=== PATIENT | female | born 1960 | race American Indian/Alaskan Native ===

== ENCOUNTER 2019-01-28 20:10 | Inpatient (IN) | payer MEDICARE ==
[2019-01-28] MEDS: SUBLIMAZE ONE ×4 (10:08→23:18)
[2019-01-28] MEDS: XYLOCAINE 2% INFILTRATI ONE ×2 (10:10→23:13)
[2019-01-28] MEDS ORDERED: NORMODYNE IV ONE (20:36)
[2019-01-28 20:39] LABS: Basophils # (Auto) 0.1 K/mm3 (0.0-0.1); Basophils % (Auto) 0.6 % (0.0-1.8); Hematocrit 41.7 % (30.3-42.9); Hemoglobin 13.7 gm/dl (10.1-14.3); Lymphocytes % (Auto) 19.3 % (13.4-35.0); Mean Corpuscular HGB Conc 33 % (30-34); Mean Corpuscular Volume 89 fl (79-97); Monocytes # (Auto) 0.5 K/mm3 (0.0-0.8); Platelet Count 402 K/mm3 (140-440); Red Cell Distribution Width 15.7 % (13.2-15.2)
[2019-01-28 20:49] LABS: INR 0.95 (0.87-1.13)
[2019-01-28 20:50] LABS: Partial Thromboplastin Time 51.9 Sec. (24.2-36.6)
[2019-01-28 20:51] LABS: BUN/Creatinine Ratio 23; Blood Urea Nitrogen 25 mg/dL (7-17); Calcium 9.7 mg/dL (8.4-10.2); Hemolysis Index 2
--- NOTE | 2019-01-28 20:52 | Emergency Department Report ---
ED Extremity Problem HPI - General Chief complaint: Medical Clearance Stated complaint: THROMBOLYSIS PROCEDURE Time Seen by Provider: 01/28/19 20:20 Source: family, EMS Mode of arrival: Stretcher Limitations: Altered Mental Status - History of Present Illness Initial comments: 58-year-old female with history of peripheral vascular disease presents to the ED for thrombolysis of right lower extremity. Patient transported from [facility]. The patient has an occlusion of the right lower extremity, vascular surgeon was unable to open and patient will require thrombolysis with TPA. Patient transported to our ED so that she can go to the [facility]. The patient received fentanyl, propofol, versed for the procedure prior to arrival, so she is slightly lethargic. Patient has also received 10,000 units of heparin. Vascular: Dr Dru BURTON Complaint: extremity pain, other (discolored right 2nd toe) Location: right, lower extremity, toe Severity scale (0 -10): 0 Improves with: nothing Worsens with: weight bearing, walking Associated Symptoms: denies other symptoms - Related Data Home Medications Medication Instructions Recorded Confirmed Last Taken HumuLIN 70-30 Vial 01/28/19 Unknown Valsartan [Diovan] 01/28/19 Unknown hydroCHLOROthiazide [HCTZ] 25 mg PO QDAY 01/28/19 01/28/19 Unknown Allergies Allergy/AdvReac Type Severity Reaction Status Date / Time No Known Allergies Allergy Verified 01/28/19 21:26 ED Review of Systems ROS: Stated complaint: THROMBOLYSIS PROCEDURE Other details as noted in HPI Comment: All other systems reviewed and negative Musculoskeletal: other (right 2nd toe discoloration) ED Past Medical Hx - Past Medical History Previous Medical History?: Yes Hx Hypertension: Yes Hx Diabetes: Yes - Surgical History Past Surgical History?: Yes Additional Surgical History: Vascular surgery - Medications Home Medications: Home Medications Medication Instructions Recorded Confirmed Last Taken Type HumuLIN 70-30 Vial 01/28/19 Unknown History Valsartan [Diovan] 01/28/19 Unknown History hydroCHLOROthiazide [HCTZ] 25 mg PO QDAY 01/28/19 01/28/19 Unknown History ED Physical Exam - General Limitations: Altered Mental Status General appearance: in no apparent distress, lethargic - Head Head exam: Present: atraumatic, normocephalic - Eye Eye exam: Present: normal appearance - ENT ENT exam: Present: mucous membranes moist - Neck Neck exam: Present: normal inspection - Respiratory Respiratory exam: Present: normal lung sounds bilaterally. Absent: respiratory distress - Cardiovascular Cardiovascular Exam: Present: normal rhythm, tachycardia - GI/Abdominal GI/Abdominal exam: Present: soft. Absent: distended - Extremities Exam Extremities exam: Present: other (no palpable DP pulse in right foot; dusky appearance of right 2nd toe; foot is cold compared to left). Absent: normal capillary refill - Neurological Exam Neurological exam: Present: alert - Psychiatric Psychiatric exam: Present: normal affect, normal mood - Skin Skin exam: Present: dry, intact ED Course Vital Signs 01/28/19 01/28/19 01/28/19 20:14 20:15 20:21 Temperature 97.5 F L Pulse Rate 100 H 101 H 101 H Respiratory 19 19 20 Rate Blood Pressure 219/88 Blood Pressure 219/88 [Right] O2 Sat by Pulse 100 100 100 Oximetry 01/28/19 01/28/19 01/28/19 20:31 20:39 20:41 Temperature Pulse Rate 100 H 97 H 84 Respiratory 14 24 Rate Blood Pressure 219/88 243/102 243/102 Blood Pressure [Right] O2 Sat by Pulse 100 100 Oximetry 01/28/19 01/28/19 01/28/19 20:51 20:56 21:01 Temperature 97.9 F Pulse Rate 87 89 90 Respiratory 17 21 39 H Rate Blood Pressure 243/102 135/63 222/84 Blood Pressure [Right] O2 Sat by Pulse 100 100 100 Oximetry 01/28/19 21:06 Temperature Pulse Rate Respiratory 19 Rate Blood Pressure Blood Pressure [Right] O2 Sat by Pulse 100 Oximetry ED Medical Decision Making - Lab Data Result diagrams: 01/28/19 20:29 01/28/19 20:29 - Medical Decision Making Spoke w/ Dr Gonsales. Will be coming in to perform pt's procedure. Spoke w/ Dr Cast, hospitalist, will admit. - Differential Diagnosis arterial occlusion Critical care attestation.: If time is entered above; I have spent that time in minutes in the direct care of this critically ill patient, excluding procedure time. ED Disposition Clinical Impression: Arterial occlusion, lower extremity Disposition: OP ADMIT IP TO THIS HOSP Is pt being admited?: Yes Condition: Serious Time of Disposition: 20:56
[2019-01-28] MEDS ORDERED: HEPARIN/NS 5000 UNIT/500ML(CATH LAB) 1,000 ML IR ONE (21:27)
[2019-01-28] MEDS ORDERED: HEPARIN 10,000 UNITS/10 ML ONE (21:27)
[2019-01-28] MEDS ORDERED: NACL 0.9% 1000 ML 1,000 ML ONE (21:28)
[2019-01-28] MEDS ORDERED: HEPARIN/ 0.45% NACL-25,000 UNIT/500 ML 25,000 UNIT/500 ML BAG ONE (21:28)
[2019-01-28] MEDS ORDERED: ZOFRAN IV PRN (21:44)
[2019-01-28] MEDS ORDERED: NACL 0.9% 1000 ML 1,000 ML IV SCH (22:00)
[2019-01-28] MEDS ORDERED: VERSED ONE (22:07)
[2019-01-28] MEDS ORDERED: CATHFLO ONE (22:25)
[2019-01-28] MEDS: APRESOLINE ONE ×2 (22:39→23:30)
[2019-01-28] MEDS: VERSED ONE ×2 (22:58→23:18)
[2019-01-28] MEDS ORDERED: NACL 0.9% 1000 ML 1,000 ML SHEATH SCH (23:00)
[2019-01-28] MEDS ORDERED: NACL 0.9% 1000 ML 1,000 ML EKOSCLUMEN SCH (23:00)
--- NOTE | 2019-01-28 23:40 | History and Physical Report ---
History of Present Illness Date of examination: 01/28/19 History of present illness: 58-year-old woman with history of hypertension, diabetes, peripheral vascular disease was sent from [facility] for thrombolysis of the right lower extremity. The patient states she had right leg pain for one week. She was taken to the clinical laboratory scientist where she equals to the anterior tibialis. She is still a bit sedated from the procedure, very difficult to obtain review of systems and rest of the history. He is noted to have a gangrene of the right second toe. Patient will be taken back to the clinical laboratory scientist tomorrow PAST MEDICAL HISTORY:hypertension, diabetes, peripheral vascular disease PAST SURGICAL HISTORY: Unknown SOCIAL HISTORY: Unknown FAMILY HISTORY: Unknown Medications and Allergies Allergies Allergy/AdvReac Type Severity Reaction Status Date / Time No Known Allergies Allergy Verified 01/28/19 21:26 Home Medications Medication Instructions Recorded Confirmed Last Taken Type HumuLIN 70-30 Vial 12 units SQ TID 01/28/19 02/03/19 Unknown History Aspirin [Low Dose Aspirin EC] 81 mg PO DAILY #30 tablet. 02/04/19 Unknown Rx Clopidogrel [Plavix] 75 mg PO QDAY #30 tablet 02/04/19 Unknown Rx HYDROcodone/APAP 5-325 [[place] 2 each PO Q6H PRN #14 tablet 02/04/19 Unknown Rx 5-325 mg TAB] Insulin Glargine [Lantus VIAL] 5 units SUB-Q QHS #30 units 02/04/19 Unknown Rx Valsartan [Diovan] 160 mg PO QDAY #30 tablet 02/04/19 Unknown Rx hydroCHLOROthiazide [HCTZ] 25 mg PO QDAY #30 tablet 02/04/19 Unknown Rx Active Meds: Active Medications Acetaminophen/Hydrocodone Bitart ([place] 5/325) 2 each PO Q6H PRN PRN Reason: Pain, Moderate (4-6) Sodium Chloride (Nacl 0.9% 1000 Ml) 1,000 mls @ 30 mls/hr IV DIRECT RAFAEL Alteplase, Recombinant 20 mg/ (Sodium Chloride) 500 mls @ 25 mls/hr EKOSDLUMEN DIRECT RAFAEL Heparin Sodium/Sodium Chloride (Heparin/ 0.45% Nacl-25,000 Unit/500 Ml) 25,000 unit in 500 mls @ 10 mls/hr SHEATH DIRECT RAFAEL; Protocol Sodium Chloride (Nacl 0.9% 1000 Ml) 1,000 mls @ 30 mls/hr SHEATH DIRECT RAFAEL Sodium Chloride (Nacl 0.9% 1000 Ml) 1,000 mls @ 35 mls/hr EKOSCLUMEN DIRECT RAFAEL Morphine Sulfate (Morphine) 4 mg IV Q4H PRN PRN Reason: Pain , Severe (7-10) Ondansetron HCl (Zofran) 4 mg IV Q8H PRN PRN Reason: Nausea And Vomiting Exam - Physical Exam Narrative exam: General Apperance: The patient lying in bed, breathing comfortable HEENT: Normocephalic, atraumatic. Pupils equally round and reactive to light, EOMI, no sclericterus or JVD or thyromegaly or nodule. , no carotid bruit, m ucous membranes moist, no exudate or erythema Heart: S1-S2, regular is rhythm Lungs: Clear to auscultation bilaterally, breathing comfortable Abdomen: Positive bowel sounds, soft, nontender, nondistended, no organomegaly Extremities: No edema cyanosis clubbing Skin: no rash, nodule, warm and dry Neuro: sedated - Constitutional Vitals: Temp Pulse Resp BP Pulse Ox 97.9 F 89 19 135/63 100 01/28/19 20:56 01/28/19 20:56 01/28/19 21:06 01/28/19 20:56 01/28/19 21:06 Results - Labs CBC & Chem 7: 02/04/19 05:38 02/04/19 05:38 Labs: Abnormal lab results 01/28/19 01/28/19 01/28/19 Range/Units 20:29 20:29 20:29 RDW 15.7 H (13.2-15.2) % Seg Neutrophils % 75.1 H (40.0-70.0) % Seg Neutrophils # 7.8 H (1.8-7.7) K/mm3 APTT 51.9 H (24.2-36.6) Sec. Fibrinogen (211-480) mg/dl Sodium 136 L (137-145) mmol/L Potassium 5.5 H (3.6-5.0) mmol/L Chloride 97.4 L (98-107) mmol/L BUN 25 H (7-17) mg/dL Glucose 238 H (65-100) mg/dL 01/28/19 Range/Units 21:59 RDW (13.2-15.2) % Seg Neutrophils % (40.0-70.0) % Seg Neutrophils # (1.8-7.7) K/mm3 APTT (24.2-36.6) Sec. Fibrinogen 542 H (211-480) mg/dl Sodium (137-145) mmol/L Potassium (3.6-5.0) mmol/L Chloride (98-107) mmol/L BUN (7-17) mg/dL Glucose (65-100) mg/dL Assessment and Plan Peripheral vascular disease, status post EKOS Gangrene of the toe Hyperkalemia Diabetes Hypertension Plan Admit to medicine Gave calcium, bicarbonate, insulin for hyperkalemia, follow potassium level Check fingersticks and initiate insulin sliding scale consult critical care, surgery Blood pressure control, restart outpatient medications Peripheral vascular disease per vascular DVT prophylaxis
[2019-01-29] MEDS: CATHFLO 20 MG in NACL 0.9% 500 ML 500 ML EKOSDLUMEN SCH ×2 (00:05→00:06)
[2019-01-29] MEDS: HEPARIN/ 0.45% NACL-25,000 UNIT/500 ML 25,000 UNIT/500 ML BAG SHEATH SCH ×2 (00:05→00:08)
[2019-01-29] MEDS ORDERED: MORPHINE IV PRN (00:12)
[2019-01-29] MEDS ORDERED: D50W (25GM) Syringe IV PRN ×2 (00:12→10:24)
[2019-01-29] MEDS ORDERED: TYLENOL PO PRN (00:12)
[2019-01-29] MEDS ORDERED: CALCIUM CHLORIDE 1,000 MG in NACL 0.9% 100 ML IV ONE (00:14)
[2019-01-29] MEDS ORDERED: D50W (25GM) Syringe IV ONE (00:15)
[2019-01-29] MEDS ORDERED: HumuLIN R SUB-Q ONE (00:16)
[2019-01-29] MEDS: MORPHINE IV PRN ×2 (00:17→04:18)
[2019-01-29] MEDS: NORCO 5/325 PO PRN (01:12)
[2019-01-29] MEDS ORDERED: SODIUM BICARBONATE IV ONE (01:30)
[2019-01-29] MEDS: SODIUM CHLORIDE FLUSH SYRINGE 10 ML IV PRN (01:51)
[2019-01-29] MEDS: APRESOLINE IV PRN ×2 (02:14→07:51)
[2019-01-29] MEDS ORDERED: LOPRESSOR PO ONE (03:30)
[2019-01-29 05:58] LABS: Basophils % (Auto) 0.2 % (0.0-1.8); Hemoglobin 13.2 gm/dl (10.1-14.3); Lymphocytes # (Auto) 0.9 K/mm3 (1.2-5.4); Lymphocytes % (Auto) 7.3 % (13.4-35.0); Mean Corpuscular HGB Conc 33 % (30-34); Mean Corpuscular Volume 90 fl (79-97); Monocytes # (Auto) 0.6 K/mm3 (0.0-0.8); Monocytes % (Auto) 5.1 % (0.0-7.3); Platelet Count 354 K/mm3 (140-440); Red Blood Count 4.45 M/mm3 (3.65-5.03); Red Cell Distribution Width 15.7 % (13.2-15.2)
[2019-01-29] MEDS ORDERED: CARDIZEM IV ONE (06:08)
[2019-01-29 06:09] LABS: Fibrinogen 294 mg/dl (211-480)
[2019-01-29] MEDS ORDERED: DILAUDID IV ONE (06:20)
[2019-01-29 06:21] LABS: BUN/Creatinine Ratio 23; Blood Urea Nitrogen 25 mg/dL (7-17); Hemolysis Index 9
--- NOTE | 2019-01-29 09:26 | Progress Note ---
Assessment and Plan 1. Right foot ischemia with cold foot and pain. 2. EKOS catheter running with tPA into the right lower extremity. 3. I will evaluate this afternoon with angiogram and will likely continue overnight if necessary. Subjective Date of service: 01/29/19 Principal diagnosis: Right lower extremity ischemia. Cold foot Interval history: Patient has a known history of severe PAD in the right lower extremity with gangrenous 2nd digit. Has had previous revascularization in May of 2018. Developed recent worsening of symptoms approximately a month ago with worsening right foot pain as well as digit. She had revascularization procedure on the right SFA and anterior tibial artery on 01/28/19 however this was unsuccessful and developed thombosis of her anterior tibial artery. She was admitted to [facility] on 01/28/19 and is currently undergoing lytic infusion therapy. Objective - Exam Narrative Exam: Patient states she has severe right foot pain. - Constitutional Vitals: Vital Signs - 12hr 01/29/19 01/29/19 01/29/19 00:00 00:02 00:10 Temperature 98.8 F Pulse Rate 109 H 109 H Pulse Rate [ 108 H From Monitor] Pulse Rate [ 108 H Left Dorsalis Pedis] Pulse Rate [ 108 H Left Radial] Pulse Rate [ 108 H Right Dorsalis Pedis] Pulse Rate [ 108 H Right Radial] Respiratory 32 H 28 H 13 Rate Blood Pressure O2 Sat by Pulse 100 100 100 Oximetry 01/29/19 01/29/19 01/29/19 00:17 00:20 00:30 Temperature Pulse Rate 111 H 108 H Pulse Rate [ From Monitor] Pulse Rate [ Left Dorsalis Pedis] Pulse Rate [ Left Radial] Pulse Rate [ Right Dorsalis Pedis] Pulse Rate [ Right Radial] Respiratory 19 29 H 18 Rate Blood Pressure 162/59 162/59 O2 Sat by Pulse 100 100 Oximetry 01/29/19 01/29/19 01/29/19 00:40 00:50 01:00 Temperature Pulse Rate 109 H 107 H 108 H Pulse Rate [ From Monitor] Pulse Rate [ Left Dorsalis Pedis] Pulse Rate [ Left Radial] Pulse Rate [ Right Dorsalis Pedis] Pulse Rate [ Right Radial] Respiratory 18 29 H 21 Rate Blood Pressure 154/65 159/69 159/69 O2 Sat by Pulse 100 100 100 Oximetry 01/29/19 01/29/19 01/29/19 01:10 01:12 01:21 Temperature Pulse Rate 109 H 107 H Pulse Rate [ From Monitor] Pulse Rate [ Left Dorsalis Pedis] Pulse Rate [ Left Radial] Pulse Rate [ Right Dorsalis Pedis] Pulse Rate [ Right Radial] Respiratory 46 H 23 49 H Rate Blood Pressure 166/70 159/69 O2 Sat by Pulse 100 100 Oximetry 01/29/19 01/29/19 01/29/19 01:31 01:41 01:51 Temperature Pulse Rate 111 H 117 H 120 H Pulse Rate [ From Monitor] Pulse Rate [ Left Dorsalis Pedis] Pulse Rate [ Left Radial] Pulse Rate [ Right Dorsalis Pedis] Pulse Rate [ Right Radial] Respiratory 42 H 38 H 12 Rate Blood Pressure 159/69 159/69 222/99 O2 Sat by Pulse 100 100 100 Oximetry 01/29/19 01/29/19 01/29/19 02:01 02:11 02:14 Temperature Pulse Rate 120 H 119 H 121 H Pulse Rate [ From Monitor] Pulse Rate [ Left Dorsalis Pedis] Pulse Rate [ Left Radial] Pulse Rate [ Right Dorsalis Pedis] Pulse Rate [ Right Radial] Respiratory 27 H 43 H Rate Blood Pressure 222/99 222/99 218/89 O2 Sat by Pulse 100 100 Oximetry 01/29/19 01/29/19 01/29/19 02:21 02:31 02:41 Temperature Pulse Rate 119 H 121 H 119 H Pulse Rate [ From Monitor] Pulse Rate [ Left Dorsalis Pedis] Pulse Rate [ Left Radial] Pulse Rate [ Right Dorsalis Pedis] Pulse Rate [ Right Radial] Respiratory 37 H 37 H 22 Rate Blood Pressure 225/92 211/69 211/69 O2 Sat by Pulse 100 100 100 Oximetry 01/29/19 01/29/19 01/29/19 02:51 03:00 03:01 Temperature Pulse Rate 120 H 120 H Pulse Rate [ From Monitor] Pulse Rate [ Left Dorsalis Pedis] Pulse Rate [ Left Radial] Pulse Rate [ Right Dorsalis Pedis] Pulse Rate [ Right Radial] Respiratory 19 44 H Rate Blood Pressure 183/82 183/82 O2 Sat by Pulse 99 100 98 Oximetry 01/29/19 01/29/19 01/29/19 03:11 03:13 03:21 Temperature 98.6 F Pulse Rate 124 H 123 H Pulse Rate [ From Monitor] Pulse Rate [ Left Dorsalis Pedis] Pulse Rate [ Left Radial] Pulse Rate [ Right Dorsalis Pedis] Pulse Rate [ Right Radial] Respiratory 45 H 46 H Rate Blood Pressure 186/83 193/91 O2 Sat by Pulse 100 98 Oximetry 01/29/19 01/29/19 01/29/19 03:26 03:30 03:41 Temperature Pulse Rate 122 H 123 H 126 H Pulse Rate [ From Monitor] Pulse Rate [ Left Dorsalis Pedis] Pulse Rate [ Left Radial] Pulse Rate [ Right Dorsalis Pedis] Pulse Rate [ Right Radial] Respiratory 46 H 18 Rate Blood Pressure 193/91 194/82 194/82 O2 Sat by Pulse 99 98 Oximetry 01/29/19 01/29/19 01/29/19 03:51 04:00 04:11 Temperature Pulse Rate 122 H 124 H 123 H Pulse Rate [ 120 H From Monitor] Pulse Rate [ 120 H Left Dorsalis Pedis] Pulse Rate [ 120 H Left Radial] Pulse Rate [ 120 H Right Dorsalis Pedis] Pulse Rate [ 108 H Right Radial] Respiratory 28 H 24 46 H Rate Blood Pressure 157/70 142/70 142/70 O2 Sat by Pulse 98 98 98 Oximetry 01/29/19 01/29/19 01/29/19 04:18 04:21 04:31 Temperature Pulse Rate 124 H 124 H Pulse Rate [ From Monitor] Pulse Rate [ Left Dorsalis Pedis] Pulse Rate [ Left Radial] Pulse Rate [ Right Dorsalis Pedis] Pulse Rate [ Right Radial] Respiratory 49 H 44 H 22 Rate Blood Pressure 140/68 183/31 O2 Sat by Pulse 99 100 Oximetry 01/29/19 01/29/19 01/29/19 04:41 04:51 05:00 Temperature Pulse Rate 124 H 125 H 123 H Pulse Rate [ From Monitor] Pulse Rate [ Left Dorsalis Pedis] Pulse Rate [ Left Radial] Pulse Rate [ Right Dorsalis Pedis] Pulse Rate [ Right Radial] Respiratory 44 H 29 H 45 H Rate Blood Pressure 183/31 185/74 184/79 O2 Sat by Pulse 99 99 99 Oximetry 01/29/19 01/29/19 01/29/19 05:11 05:21 05:31 Temperature Pulse Rate 123 H 120 H 122 H Pulse Rate [ From Monitor] Pulse Rate [ Left Dorsalis Pedis] Pulse Rate [ Left Radial] Pulse Rate [ Right Dorsalis Pedis] Pulse Rate [ Right Radial] Respiratory 20 49 H 44 H Rate Blood Pressure 184/79 180/72 205/81 O2 Sat by Pulse 99 100 100 Oximetry 01/29/19 01/29/19 01/29/19 05:40 05:51 06:01 Temperature Pulse Rate 123 H 121 H 123 H Pulse Rate [ From Monitor] Pulse Rate [ Left Dorsalis Pedis] Pulse Rate [ Left Radial] Pulse Rate [ Right Dorsalis Pedis] Pulse Rate [ Right Radial] Respiratory 42 H 34 H 25 H Rate Blood Pressure 205/81 194/76 197/74 O2 Sat by Pulse 100 99 100 Oximetry 01/29/19 01/29/19 01/29/19 06:11 06:21 06:22 Temperature Pulse Rate 123 H 124 H 123 H Pulse Rate [ From Monitor] Pulse Rate [ Left Dorsalis Pedis] Pulse Rate [ Left Radial] Pulse Rate [ Right Dorsalis Pedis] Pulse Rate [ Right Radial] Respiratory 37 H 34 H Rate Blood Pressure 194/76 227/87 227/87 O2 Sat by Pulse 100 96 Oximetry 01/29/19 01/29/19 01/29/19 06:31 06:41 06:51 Temperature Pulse Rate 116 H 120 H 119 H Pulse Rate [ From Monitor] Pulse Rate [ Left Dorsalis Pedis] Pulse Rate [ Left Radial] Pulse Rate [ Right Dorsalis Pedis] Pulse Rate [ Right Radial] Respiratory 42 H 41 H 38 H Rate Blood Pressure 167/71 227/87 172/79 O2 Sat by Pulse 99 93 99 Oximetry 01/29/19 01/29/19 01/29/19 07:01 07:11 07:21 Temperature Pulse Rate 119 H 119 H 117 H Pulse Rate [ From Monitor] Pulse Rate [ Left Dorsalis Pedis] Pulse Rate [ Left Radial] Pulse Rate [ Right Dorsalis Pedis] Pulse Rate [ Right Radial] Respiratory 36 H 38 H 37 H Rate Blood Pressure 172/63 172/63 187/80 O2 Sat by Pulse 98 94 99 Oximetry 01/29/19 01/29/19 01/29/19 07:31 07:41 07:51 Temperature Pulse Rate 117 H 118 H 116 H Pulse Rate [ From Monitor] Pulse Rate [ Left Dorsalis Pedis] Pulse Rate [ Left Radial] Pulse Rate [ Right Dorsalis Pedis] Pulse Rate [ Right Radial] Respiratory 41 H 42 H Rate Blood Pressure 170/62 172/63 180/79 O2 Sat by Pulse 99 92 Oximetry 01/29/19 07:57 Temperature 98.9 F Pulse Rate Pulse Rate [ From Monitor] Pulse Rate [ Left Dorsalis Pedis] Pulse Rate [ Left Radial] Pulse Rate [ Right Dorsalis Pedis] Pulse Rate [ Right Radial] Respiratory Rate Blood Pressure O2 Sat by Pulse Oximetry General appearance: Present: mild distress - EENT Eyes: PERRL, EOM intact ENT: hearing intact, clear oral mucosa - Respiratory Respiratory effort: normal - Cardiovascular Rhythm: regular Extremity abnormal: cold (Right ankle and foot remain cold. The remainder of the right lower extremity is warm. Non palpable pulses. Capillary refill in the great toe is diminished. Continued gangrenous changes in the 2nd toe. Diminished sensation to touch. ) - Labs CBC & Chem 7: 01/29/19 04:35 01/29/19 04:35 Labs: Abnormal lab results 01/28/19 01/28/19 01/28/19 Range/Units 20:29 20:29 20:29 WBC (4.5-11.0) K/mm3 RDW 15.7 H (13.2-15.2) % Lymph % (Auto) (13.4-35.0) % Lymph # (1.2-5.4) K/mm3 Seg Neutrophils % 75.1 H (40.0-70.0) % Seg Neutrophils # 7.8 H (1.8-7.7) K/mm3 APTT 51.9 H (24.2-36.6) Sec. Fibrinogen (211-480) mg/dl Heparin Anti-Xa Level (0.3-0.7) U.I./ml Sodium 136 L (137-145) mmol/L Potassium 5.5 H (3.6-5.0) mmol/L Chloride 97.4 L (98-107) mmol/L Carbon Dioxide (22-30) mmol/L BUN 25 H (7-17) mg/dL Glucose 238 H (65-100) mg/dL POC Glucose (70-105) 01/28/19 01/29/19 01/29/19 Range/Units 21:59 01:14 04:35 WBC 12.5 H (4.5-11.0) K/mm3 RDW 15.7 H (13.2-15.2) % Lymph % (Auto) 7.3 L (13.4-35.0) % Lymph # 0.9 L (1.2-5.4) K/mm3 Seg Neutrophils % 87.4 H (40.0-70.0) % Seg Neutrophils # 10.9 H (1.8-7.7) K/mm3 APTT (24.2-36.6) Sec. Fibrinogen 542 H (211-480) mg/dl Heparin Anti-Xa Level (0.3-0.7) U.I./ml Sodium (137-145) mmol/L Potassium (3.6-5.0) mmol/L Chloride (98-107) mmol/L Carbon Dioxide (22-30) mmol/L BUN (7-17) mg/dL Glucose (65-100) mg/dL POC Glucose 332 H (70-105) 01/29/19 01/29/19 01/29/19 Range/Units 04:35 04:35 05:18 WBC (4.5-11.0) K/mm3 RDW (13.2-15.2) % Lymph % (Auto) (13.4-35.0) % Lymph # (1.2-5.4) K/mm3 Seg Neutrophils % (40.0-70.0) % Seg Neutrophils # (1.8-7.7) K/mm3 APTT (24.2-36.6) Sec. Fibrinogen (211-480) mg/dl Heparin Anti-Xa Level < 0.10 L (0.3-0.7) U.I./ml Sodium 135 L (137-145) mmol/L Potassium (3.6-5.0) mmol/L Chloride 93.8 L (98-107) mmol/L Carbon Dioxide 18 L (22-30) mmol/L BUN 25 H (7-17) mg/dL Glucose 472 H (65-100) mg/dL POC Glucose 420 H (70-105) Medications & Allergies - Medications Allergies/Adverse Reactions: Allergies No Known Allergies Allergy (Verified 01/28/19 21:26) Home Medications: Home Medications Medication Instructions Recorded Confirmed Last Taken Type HumuLIN 70-30 Vial 01/28/19 Unknown History Valsartan [Diovan] 01/28/19 Unknown History hydroCHLOROthiazide [HCTZ] 25 mg PO QDAY 01/28/19 01/28/19 Unknown History Active Medications: Generic Name Dose Route Start Last Admin Trade Name Freq PRN Reason Stop Dose Admin Acetaminophen 650 mg 01/29/19 00:12 Tylenol PO Q4H PRN Pain MILD(1-3)/Fever >100.5/MARTÍNEZ Acetaminophen/Hydrocodone Bitart 2 each 01/28/19 21:44 01/29/19 01:12 [place] 5/325 PO 2 each Q6H PRN Administration Pain, Moderate (4-6) Dextrose 50 ml 01/29/19 00:12 D50w (25gm) Syringe IV PRN PRN Hypoglycemia Hydralazine HCl 5 mg 01/29/19 00:22 01/29/19 07:51 Apresoline IV 5 mg Q6H PRN Administration Hypertension Hydromorphone HCl 1 mg 01/29/19 09:03 Dilaudid IV Q4H PRN Pain , Severe (7-10) Sodium Chloride 1,000 mls @ 30 mls/hr 01/28/19 22:00 Nacl 0.9% 1000 Ml IV DIRECT RAFAEL Alteplase, Recombinant 20 mg/ 500 mls @ 25 mls/hr 01/28/19 23:00 01/29/19 00:06 Sodium Chloride EKOSDLUMEN 25 mls/hr DIRECT RAFAEL Administration Heparin Sodium/Sodium Chloride 25,000 unit in 500 mls @ 10 mls/hr 01/28/19 23:00 01/29/19 00:08 Heparin/ 0.45% Nacl-25,000 Unit/500 Ml SHEATH 500 units/hr DIRECT RAFAEL 10 mls/hr Administration Protocol 500 UNITS/HR Sodium Chloride 1,000 mls @ 30 mls/hr 01/28/19 23:00 Nacl 0.9% 1000 Ml SHEATH DIRECT RAFAEL Sodium Chloride 1,000 mls @ 35 mls/hr 01/28/19 23:00 01/29/19 00:05 Nacl 0.9% 1000 Ml EKOSCLUMEN 10 mls DIRECT RAFAEL Administration Morphine Sulfate 4 mg 01/28/19 21:44 01/29/19 04:18 Morphine IV 4 mg Q4H PRN Administration Pain , Severe (7-10) Morphine Sulfate 2 mg 01/29/19 00:12 Morphine IV Q4H PRN Pain, Moderate (4-6) Ondansetron HCl 4 mg 01/28/19 21:44 Zofran IV Q8H PRN Nausea And Vomiting Sodium Chloride 10 ml 01/29/19 10:00 Sodium Chloride Flush Syringe 10 Ml IV BID RAFAEL Sodium Chloride 10 ml 01/29/19 00:12 01/29/19 01:51 Sodium Chloride Flush Syringe 10 Ml IV 10 ml PRN PRN Administration LINE FLUSH
[2019-01-29 10:11] LABS: Basophils % (Auto) 0.3 % (0.0-1.8); Hematocrit 39.7 % (30.3-42.9); Hemoglobin 12.8 gm/dl (10.1-14.3); Lymphocytes % (Auto) 9.3 % (13.4-35.0); Mean Corpuscular HGB Conc 32 % (30-34); Mean Corpuscular Volume 90 fl (79-97); Monocytes # (Auto) 0.7 K/mm3 (0.0-0.8); Monocytes % (Auto) 6.1 % (0.0-7.3); Platelet Count 341 K/mm3 (140-440); Red Blood Count 4.39 M/mm3 (3.65-5.03); Red Cell Distribution Width 15.8 % (13.2-15.2)
[2019-01-29] MEDS: SODIUM CHLORIDE FLUSH SYRINGE 10 ML IV SCH (10:24)
[2019-01-29] MEDS: DILAUDID IV PRN (10:24)
--- NOTE | 2019-01-29 12:22 | Consultation ---
History of Present Illness - Reason for Consult Consult date: 01/29/19 Post-op management Requesting physician: FLORENTINO GALLAGHER - History of Present Illness 58 y/o female with PVD, admitted to the ICU post-op from arterial EKOS for cold, painful foot. Past History Past Medical History: diabetes, hypertension, other (morbid obesity) Social history: no significant social history Family history: no significant family history Medications and Allergies Allergies Allergy/AdvReac Type Severity Reaction Status Date / Time No Known Allergies Allergy Verified 01/28/19 21:26 Home Medications Medication Instructions Recorded Confirmed Last Taken Type HumuLIN 70-30 Vial 01/28/19 Unknown History Valsartan [Diovan] 01/28/19 Unknown History hydroCHLOROthiazide [HCTZ] 25 mg PO QDAY 01/28/19 01/28/19 Unknown History Active Meds: Active Medications Acetaminophen (Tylenol) 650 mg PO Q4H PRN PRN Reason: Pain MILD(1-3)/Fever >100.5/MARTÍNEZ Acetaminophen/Hydrocodone Bitart ([place] 5/325) 2 each PO Q6H PRN PRN Reason: Pain, Moderate (4-6) Last Admin: 01/29/19 01:12 Dose: 2 each Documented by: Dextrose (D50w (25gm) Syringe) 50 ml IV PRN PRN PRN Reason: Hypoglycemia Hydralazine HCl (Apresoline) 5 mg IV Q6H PRN PRN Reason: Hypertension Last Admin: 01/29/19 07:51 Dose: 5 mg Documented by: Hydromorphone HCl (Dilaudid) 1 mg IV Q4H PRN PRN Reason: Pain , Severe (7-10) Last Admin: 01/29/19 10:24 Dose: 1 mg Documented by: Sodium Chloride (Nacl 0.9% 1000 Ml) 1,000 mls @ 30 mls/hr IV DIRECT RAFAEL Alteplase, Recombinant 20 mg/ (Sodium Chloride) 500 mls @ 25 mls/hr EKOSDLUMEN DIRECT RAFAEL Last Admin: 01/29/19 00:06 Dose: 25 mls/hr Documented by: Heparin Sodium/Sodium Chloride (Heparin/ 0.45% Nacl-25,000 Unit/500 Ml) 25,000 unit in 500 mls @ 10 mls/hr SHEATH DIRECT RAFAEL; Protocol Last Admin: 01/29/19 00:08 Dose: 500 units/hr, 10 mls/hr Documented by: Sodium Chloride (Nacl 0.9% 1000 Ml) 1,000 mls @ 30 mls/hr SHEATH DIRECT RAFAEL Sodium Chloride (Nacl 0.9% 1000 Ml) 1,000 mls @ 35 mls/hr EKOSCLUMEN DIRECT RAFAEL Last Admin: 01/29/19 00:05 Dose: 10 mls Documented by: Insulin Human Lispro (Humalog) 0 unit SUB-Q Q6HR RAFAEL; Protocol Morphine Sulfate (Morphine) 4 mg IV Q4H PRN PRN Reason: Pain , Severe (7-10) Last Admin: 01/29/19 04:18 Dose: 4 mg Documented by: Morphine Sulfate (Morphine) 2 mg IV Q4H PRN PRN Reason: Pain, Moderate (4-6) Ondansetron HCl (Zofran) 4 mg IV Q8H PRN PRN Reason: Nausea And Vomiting Sodium Chloride (Sodium Chloride Flush Syringe 10 Ml) 10 ml IV BID RAFAEL Last Admin: 01/29/19 10:24 Dose: 10 ml Documented by: Sodium Chloride (Sodium Chloride Flush Syringe 10 Ml) 10 ml IV PRN PRN PRN Reason: LINE FLUSH Last Admin: 01/29/19 01:51 Dose: 10 ml Documented by: Review of Systems All systems: negative Exam - Constitutional Vitals: Temp Pulse Resp BP Pulse Ox 99.0 F 116 H 42 H 180/79 100 01/29/19 12:05 01/29/19 07:51 01/29/19 07:41 01/29/19 07:51 01/29/19 10:06 General appearance: Present: no acute distress, well-nourished, obese - EENT Eyes: Present: PERRL ENT: hearing intact, clear oral mucosa - Neck Neck: Present: supple, normal ROM - Respiratory Respiratory effort: normal Respiratory: bilateral: CTA - Cardiovascular Rhythm: regular Heart Sounds: Present: S1 & S2 - Extremities Extremity abnormal: black - Abdominal General gastrointestinal: Present: soft, non-tender Results - Labs CBC & Chem 7: 01/29/19 09:27 01/29/19 04:35 Labs: Abnormal lab results 01/28/19 01/28/19 01/28/19 Range/Units 20:29 20:29 20:29 WBC (4.5-11.0) K/mm3 RDW 15.7 H (13.2-15.2) % Lymph % (Auto) (13.4-35.0) % Lymph # (1.2-5.4) K/mm3 Seg Neutrophils % 75.1 H (40.0-70.0) % Seg Neutrophils # 7.8 H (1.8-7.7) K/mm3 APTT 51.9 H (24.2-36.6) Sec. Fibrinogen (211-480) mg/dl Heparin Anti-Xa Level (0.3-0.7) U.I./ml Sodium 136 L (137-145) mmol/L Potassium 5.5 H (3.6-5.0) mmol/L Chloride 97.4 L (98-107) mmol/L Carbon Dioxide (22-30) mmol/L BUN 25 H (7-17) mg/dL Glucose 238 H (65-100) mg/dL POC Glucose (70-105) 01/28/19 01/29/19 01/29/19 Range/Units 21:59 01:14 04:35 WBC 12.5 H (4.5-11.0) K/mm3 RDW 15.7 H (13.2-15.2) % Lymph % (Auto) 7.3 L (13.4-35.0) % Lymph # 0.9 L (1.2-5.4) K/mm3 Seg Neutrophils % 87.4 H (40.0-70.0) % Seg Neutrophils # 10.9 H (1.8-7.7) K/mm3 APTT (24.2-36.6) Sec. Fibrinogen 542 H (211-480) mg/dl Heparin Anti-Xa Level (0.3-0.7) U.I./ml Sodium (137-145) mmol/L Potassium (3.6-5.0) mmol/L Chloride (98-107) mmol/L Carbon Dioxide (22-30) mmol/L BUN (7-17) mg/dL Glucose (65-100) mg/dL POC Glucose 332 H (70-105) 01/29/19 01/29/19 01/29/19 Range/Units 04:35 04:35 05:18 WBC (4.5-11.0) K/mm3 RDW (13.2-15.2) % Lymph % (Auto) (13.4-35.0) % Lymph # (1.2-5.4) K/mm3 Seg Neutrophils % (40.0-70.0) % Seg Neutrophils # (1.8-7.7) K/mm3 APTT (24.2-36.6) Sec. Fibrinogen (211-480) mg/dl Heparin Anti-Xa Level < 0.10 L (0.3-0.7) U.I./ml Sodium 135 L (137-145) mmol/L Potassium (3.6-5.0) mmol/L Chloride 93.8 L (98-107) mmol/L Carbon Dioxide 18 L (22-30) mmol/L BUN 25 H (7-17) mg/dL Glucose 472 H (65-100) mg/dL POC Glucose 420 H (70-105) 01/29/19 01/29/19 01/29/19 Range/Units 09:27 09:27 11:23 WBC (4.5-11.0) K/mm3 RDW 15.8 H (13.2-15.2) % Lymph % (Auto) 9.3 L (13.4-35.0) % Lymph # 1.0 L (1.2-5.4) K/mm3 Seg Neutrophils % 84.3 H (40.0-70.0) % Seg Neutrophils # 9.3 H (1.8-7.7) K/mm3 APTT (24.2-36.6) Sec. Fibrinogen 165 L (211-480) mg/dl Heparin Anti-Xa Level 0.11 L (0.3-0.7) U.I./ml Sodium (137-145) mmol/L Potassium (3.6-5.0) mmol/L Chloride (98-107) mmol/L Carbon Dioxide (22-30) mmol/L BUN (7-17) mg/dL Glucose (65-100) mg/dL POC Glucose 446 H (70-105) Assessment and Plan 58 y/o female with gangrenous extremity, status post EKOS for arterial opening, now awaiting to be re-evaluated by surgery. 1. BP control 2. Adjust sliding scale but hold on long acting given that patient is NPO 3. Await vascular re-evaluation 4. Continue ICU monitoring
[2019-01-29] MEDS: HumaLOG SUB-Q SCH ×2 (12:52→18:00)
[2019-01-29] MEDS ORDERED: HEPARIN/NS 5000 UNIT/500ML(CATH LAB) 1,000 ML IR ONE (14:23)
[2019-01-29] MEDS ORDERED: ANCEF/STERILE WATER 2 GM/20 ML 2 GM/20 ML SYRINGE IV ONE (14:26)
[2019-01-29] MEDS: SUBLIMAZE ONE ×5 (14:33→16:21)
[2019-01-29] MEDS: VERSED ONE ×4 (14:33→16:21)
[2019-01-29] MEDS: XYLOCAINE 2% INFILTRATI ONE ×2 (14:35→16:28)
[2019-01-29] MEDS ORDERED: NITROGLYCERIN SYRINGE 3 ML ONE (14:44)
[2019-01-29] MEDS: HEPARIN 10,000 UNITS/10 ML ONE ×2 (14:50→15:56)
[2019-01-29] MEDS ORDERED: CATHFLO ONE (15:11)
--- NOTE | 2019-01-29 15:24 | Consultation ---
History of Present Illness Consult date: 01/29/19 Reason for consult: wound care Requesting physician: SHERICE NGUYEN Chief complaint: right leg pain - History of present illness History of present illness: 58yo F with peripheral vascular disease and diabetes was admitted last night after attempted interventional radiology procedure at [facility]. Patient has a chronic wound on the right 2nd toe. This has been present for quite a while. There's been no drainage from the toe. No erythema. She denies any fevers or chills. She had the procedure done because of increased in her rest pain involving the right foot and leg. Patient is awaiting another angiogram today. Past History Past Medical History: diabetes, hypertension, other (morbid obesity) Social history: no significant social history Family history: no significant family history Medications and Allergies Allergies Allergy/AdvReac Type Severity Reaction Status Date / Time No Known Allergies Allergy Verified 01/28/19 21:26 Home Medications Medication Instructions Recorded Confirmed Last Taken Type HumuLIN 70-30 Vial 01/28/19 Unknown History Valsartan [Diovan] 01/28/19 Unknown History hydroCHLOROthiazide [HCTZ] 25 mg PO QDAY 01/28/19 01/28/19 Unknown History Active Meds: Active Medications Acetaminophen (Tylenol) 650 mg PO Q4H PRN PRN Reason: Pain MILD(1-3)/Fever >100.5/MARTÍNEZ Acetaminophen/Hydrocodone Bitart ([place] 5/325) 2 each PO Q6H PRN PRN Reason: Pain, Moderate (4-6) Last Admin: 01/29/19 01:12 Dose: 2 each Documented by: Dextrose (D50w (25gm) Syringe) 50 ml IV PRN PRN PRN Reason: Hypoglycemia Hydralazine HCl (Apresoline) 5 mg IV Q6H PRN PRN Reason: Hypertension Last Admin: 01/29/19 07:51 Dose: 5 mg Documented by: Hydromorphone HCl (Dilaudid) 1 mg IV Q4H PRN PRN Reason: Pain , Severe (7-10) Last Admin: 01/29/19 10:24 Dose: 1 mg Documented by: Sodium Chloride (Nacl 0.9% 1000 Ml) 1,000 mls @ 30 mls/hr IV DIRECT RAFAEL Alteplase, Recombinant 20 mg/ (Sodium Chloride) 500 mls @ 25 mls/hr EKOSDLUMEN DIRECT RAFAEL Last Admin: 01/29/19 00:06 Dose: 25 mls/hr Documented by: Heparin Sodium/Sodium Chloride (Heparin/ 0.45% Nacl-25,000 Unit/500 Ml) 25,000 unit in 500 mls @ 10 mls/hr SHEATH DIRECT RAFAEL; Protocol Last Admin: 01/29/19 00:08 Dose: 500 units/hr, 10 mls/hr Documented by: Sodium Chloride (Nacl 0.9% 1000 Ml) 1,000 mls @ 30 mls/hr SHEATH DIRECT RAFAEL Sodium Chloride (Nacl 0.9% 1000 Ml) 1,000 mls @ 35 mls/hr EKOSCLUMEN DIRECT RAFAEL Last Admin: 01/29/19 00:05 Dose: 10 mls Documented by: Insulin Human Lispro (Humalog) 0 unit SUB-Q Q6HR RAFAEL; Protocol Last Admin: 01/29/19 12:52 Dose: 10 unit Documented by: Morphine Sulfate (Morphine) 4 mg IV Q4H PRN PRN Reason: Pain , Severe (7-10) Last Admin: 01/29/19 04:18 Dose: 4 mg Documented by: Morphine Sulfate (Morphine) 2 mg IV Q4H PRN PRN Reason: Pain, Moderate (4-6) Ondansetron HCl (Zofran) 4 mg IV Q8H PRN PRN Reason: Nausea And Vomiting Sodium Chloride (Sodium Chloride Flush Syringe 10 Ml) 10 ml IV BID RAFAEL Last Admin: 01/29/19 10:24 Dose: 10 ml Documented by: Sodium Chloride (Sodium Chloride Flush Syringe 10 Ml) 10 ml IV PRN PRN PRN Reason: LINE FLUSH Last Admin: 01/29/19 01:51 Dose: 10 ml Documented by: Review of Systems - Constitutional chronic pain, no fever, no chills - Cardiovascular no chest pain - Respiratory no cough, no shortness of breath - Gastrointestinal no abdominal pain - Muskuloskeletal right: foot pain - Integumentary darkening of skin (at right 2nd toe) Exam Vital Signs Pulse Resp Pulse Ox 100 H 19 100 01/28/19 20:14 01/28/19 20:14 01/28/19 20:14 - General physical appearance Positive: no distress, no pain, obese, other (appears mildly sedated) - Respiratory Positive: normal expansion, normal respiratory effort, clear to auscultation - Cardiovascular Rhythm: regular - Extremities Extremity abnormal: cyanosis (of right 2nd toe), black (small area on distal tip of right 2nd toe. dry. No drainage. No erythema. ), cold (right foot up to the distal lower leg;), pulses diminished (unable to feel pulses on either foot), tenderness (of the right foot and lower leg) - Abdomen Abdomen: Present: soft. Absent: tender - Psychiatric Psychiatric: cooperative Results - Labs 01/29/19 09:27 01/29/19 04:35 Abnormal lab results 01/28/19 01/28/19 01/28/19 Range/Units 20:29 20:29 20:29 WBC (4.5-11.0) K/mm3 RDW 15.7 H (13.2-15.2) % Lymph % (Auto) (13.4-35.0) % Lymph # (1.2-5.4) K/mm3 Seg Neutrophils % 75.1 H (40.0-70.0) % Seg Neutrophils # 7.8 H (1.8-7.7) K/mm3 APTT 51.9 H (24.2-36.6) Sec. Fibrinogen (211-480) mg/dl Heparin Anti-Xa Level (0.3-0.7) U.I./ml Sodium 136 L (137-145) mmol/L Potassium 5.5 H (3.6-5.0) mmol/L Chloride 97.4 L (98-107) mmol/L Carbon Dioxide (22-30) mmol/L BUN 25 H (7-17) mg/dL Glucose 238 H (65-100) mg/dL POC Glucose (70-105) 01/28/19 01/29/19 01/29/19 Range/Units 21:59 01:14 04:35 WBC 12.5 H (4.5-11.0) K/mm3 RDW 15.7 H (13.2-15.2) % Lymph % (Auto) 7.3 L (13.4-35.0) % Lymph # 0.9 L (1.2-5.4) K/mm3 Seg Neutrophils % 87.4 H (40.0-70.0) % Seg Neutrophils # 10.9 H (1.8-7.7) K/mm3 APTT (24.2-36.6) Sec. Fibrinogen 542 H (211-480) mg/dl Heparin Anti-Xa Level (0.3-0.7) U.I./ml Sodium (137-145) mmol/L Potassium (3.6-5.0) mmol/L Chloride (98-107) mmol/L Carbon Dioxide (22-30) mmol/L BUN (7-17) mg/dL Glucose (65-100) mg/dL POC Glucose 332 H (70-105) 01/29/19 01/29/19 01/29/19 Range/Units 04:35 04:35 05:18 WBC (4.5-11.0) K/mm3 RDW (13.2-15.2) % Lymph % (Auto) (13.4-35.0) % Lymph # (1.2-5.4) K/mm3 Seg Neutrophils % (40.0-70.0) % Seg Neutrophils # (1.8-7.7) K/mm3 APTT (24.2-36.6) Sec. Fibrinogen (211-480) mg/dl Heparin Anti-Xa Level < 0.10 L (0.3-0.7) U.I./ml Sodium 135 L (137-145) mmol/L Potassium (3.6-5.0) mmol/L Chloride 93.8 L (98-107) mmol/L Carbon Dioxide 18 L (22-30) mmol/L BUN 25 H (7-17) mg/dL Glucose 472 H (65-100) mg/dL POC Glucose 420 H (70-105) 01/29/19 01/29/19 01/29/19 Range/Units 09:27 09:27 11:23 WBC (4.5-11.0) K/mm3 RDW 15.8 H (13.2-15.2) % Lymph % (Auto) 9.3 L (13.4-35.0) % Lymph # 1.0 L (1.2-5.4) K/mm3 Seg Neutrophils % 84.3 H (40.0-70.0) % Seg Neutrophils # 9.3 H (1.8-7.7) K/mm3 APTT (24.2-36.6) Sec. Fibrinogen 165 L (211-480) mg/dl Heparin Anti-Xa Level 0.11 L (0.3-0.7) U.I./ml Sodium (137-145) mmol/L Potassium (3.6-5.0) mmol/L Chloride (98-107) mmol/L Carbon Dioxide (22-30) mmol/L BUN (7-17) mg/dL Glucose (65-100) mg/dL POC Glucose 446 H (70-105) 01/29/19 Range/Units 13:11 WBC (4.5-11.0) K/mm3 RDW (13.2-15.2) % Lymph % (Auto) (13.4-35.0) % Lymph # (1.2-5.4) K/mm3 Seg Neutrophils % (40.0-70.0) % Seg Neutrophils # (1.8-7.7) K/mm3 APTT (24.2-36.6) Sec. Fibrinogen (211-480) mg/dl Heparin Anti-Xa Level (0.3-0.7) U.I./ml Sodium (137-145) mmol/L Potassium (3.6-5.0) mmol/L Chloride (98-107) mmol/L Carbon Dioxide (22-30) mmol/L BUN (7-17) mg/dL Glucose (65-100) mg/dL POC Glucose 359 H (70-105) Diabetes panel 01/28/19 01/29/19 Range/Units 20:29 04:35 Sodium 136 L 135 L (137-145) mmol/L Potassium 5.5 H 4.7 (3.6-5.0) mmol/L Chloride 97.4 L 93.8 L (98-107) mmol/L Carbon Dioxide 24 18 L (22-30) mmol/L BUN 25 H 25 H (7-17) mg/dL Creatinine 1.1 1.1 (0.7-1.2) mg/dL Glucose 238 H 472 H (65-100) mg/dL Calcium 9.7 10.0 (8.4-10.2) mg/dL Calcium panel 01/28/19 01/29/19 Range/Units 20:29 04:35 Calcium 9.7 10.0 (8.4-10.2) mg/dL Pituitary panel 01/28/19 01/29/19 Range/Units 20:29 04:35 Sodium 136 L 135 L (137-145) mmol/L Potassium 5.5 H 4.7 (3.6-5.0) mmol/L Chloride 97.4 L 93.8 L (98-107) mmol/L Carbon Dioxide 24 18 L (22-30) mmol/L BUN 25 H 25 H (7-17) mg/dL Creatinine 1.1 1.1 (0.7-1.2) mg/dL Glucose 238 H 472 H (65-100) mg/dL Calcium 9.7 10.0 (8.4-10.2) mg/dL Adrenal panel 01/28/19 01/29/19 Range/Units 20:29 04:35 Sodium 136 L 135 L (137-145) mmol/L Potassium 5.5 H 4.7 (3.6-5.0) mmol/L Chloride 97.4 L 93.8 L (98-107) mmol/L Carbon Dioxide 24 18 L (22-30) mmol/L BUN 25 H 25 H (7-17) mg/dL Creatinine 1.1 1.1 (0.7-1.2) mg/dL Glucose 238 H 472 H (65-100) mg/dL Calcium 9.7 10.0 (8.4-10.2) mg/dL Assessment and Plan - Patient Problems (1) Dry gangrene Current Visit: Yes Status: Acute Plan to address problem: Pt stable. Patient has no signs of infection involving the right 2nd toe. There are no open wounds. This is chronic dry gangrene of the tip. There is no need for any urgent surgical intervention. Would focus on revascularization at this time. Please call with any questions. Time=30min
[2019-01-29] MEDS ORDERED: XYLOCAINE MPF 2% ONE (17:11)
[2019-01-29] MEDS ORDERED: SUBLIMAZE ONE (17:11)
[2019-01-29] MEDS ORDERED: DIPRIVAN 10 MG/ML IV ONE (17:12)
--- NOTE | 2019-01-29 17:26 | Consultation ---
History of Present Illness - Reason for Consult Consult date: 01/29/19 Right Leg Compartment Syndrome Requesting physician: FLORENTINO GALLAGHER - History of Present Illness The patient is a 58-year-old female with a history of peripheral vascular disease who recently underwent an endovascular intervention for critical limb ischemia. She required thrombolysis overnight secondary to thrombus and her outflow however she was successfully revascularized and has adequate inline blood flow to her foot. After successful revascularization the patient is complaining of significant calf tenderness and given the amount time with her severe ischemia she likely has compartment syndrome. Past History Past Medical History: diabetes, hypertension, other (morbid obesity) Social history: no significant social history Family history: no significant family history Medications and Allergies Allergies Allergy/AdvReac Type Severity Reaction Status Date / Time No Known Allergies Allergy Verified 01/28/19 21:26 Home Medications Medication Instructions Recorded Confirmed Last Taken Type HumuLIN 70-30 Vial 01/28/19 Unknown History Valsartan [Diovan] 01/28/19 Unknown History hydroCHLOROthiazide [HCTZ] 25 mg PO QDAY 01/28/19 01/28/19 Unknown History Active Meds: Active Medications Acetaminophen (Tylenol) 650 mg PO Q4H PRN PRN Reason: Pain MILD(1-3)/Fever >100.5/MARTÍNEZ Acetaminophen/Hydrocodone Bitart ([place] 5/325) 2 each PO Q6H PRN PRN Reason: Pain, Moderate (4-6) Last Admin: 01/29/19 01:12 Dose: 2 each Documented by: Dextrose (D50w (25gm) Syringe) 50 ml IV PRN PRN PRN Reason: Hypoglycemia Hydralazine HCl (Apresoline) 5 mg IV Q6H PRN PRN Reason: Hypertension Last Admin: 01/29/19 07:51 Dose: 5 mg Documented by: Hydromorphone HCl (Dilaudid) 1 mg IV Q4H PRN PRN Reason: Pain , Severe (7-10) Last Admin: 01/29/19 10:24 Dose: 1 mg Documented by: Sodium Chloride (Nacl 0.9% 1000 Ml) 1,000 mls @ 30 mls/hr IV DIRECT RAFAEL Alteplase, Recombinant 20 mg/ (Sodium Chloride) 500 mls @ 25 mls/hr EKOSDLUMEN DIRECT RAFAEL Last Admin: 01/29/19 00:06 Dose: 25 mls/hr Documented by: Heparin Sodium/Sodium Chloride (Heparin/ 0.45% Nacl-25,000 Unit/500 Ml) 25,000 unit in 500 mls @ 10 mls/hr SHEATH DIRECT RAFAEL; Protocol Last Admin: 01/29/19 00:08 Dose: 500 units/hr, 10 mls/hr Documented by: Sodium Chloride (Nacl 0.9% 1000 Ml) 1,000 mls @ 30 mls/hr SHEATH DIRECT RAFAEL Sodium Chloride (Nacl 0.9% 1000 Ml) 1,000 mls @ 35 mls/hr EKOSCLUMEN DIRECT RAFAEL Last Admin: 01/29/19 00:05 Dose: 10 mls Documented by: Insulin Human Lispro (Humalog) 0 unit SUB-Q Q6HR RAFAEL; Protocol Last Admin: 01/29/19 12:52 Dose: 10 unit Documented by: Morphine Sulfate (Morphine) 4 mg IV Q4H PRN PRN Reason: Pain , Severe (7-10) Last Admin: 01/29/19 04:18 Dose: 4 mg Documented by: Morphine Sulfate (Morphine) 2 mg IV Q4H PRN PRN Reason: Pain, Moderate (4-6) Ondansetron HCl (Zofran) 4 mg IV Q8H PRN PRN Reason: Nausea And Vomiting Sodium Chloride (Sodium Chloride Flush Syringe 10 Ml) 10 ml IV BID RAFAEL Last Admin: 01/29/19 10:24 Dose: 10 ml Documented by: Sodium Chloride (Sodium Chloride Flush Syringe 10 Ml) 10 ml IV PRN PRN PRN Reason: LINE FLUSH Last Admin: 01/29/19 01:51 Dose: 10 ml Documented by: Review of Systems Musculoskeletal: shooting leg pain (right lower extremity), leg numbness/tingling (right lower extremity) Integumentary: sores (right second toe ulcer) Exam - Constitutional Vitals: Temp Pulse Resp BP Pulse Ox 99.0 F 98 H 12 152/61 100 01/29/19 12:05 01/29/19 17:05 01/29/19 17:05 01/29/19 17:05 01/29/19 17:05 General appearance: Present: no acute distress - Neck Neck: Present: supple - Respiratory Respiratory effort: normal - Cardiovascular Rhythm: regular - Extremities Extremities: pulses intact (palpable femoral pulses bilaterally), abnormal (ulceration to the right second toe, right foot is warm with some cyanotic changes excellent Doppler signal in the dorsalis pedis artery cath was tender with palpation and patient has significant pain in the calf with passive dorsiflexion of the foot. The anterolateral compartment of the right leg is tense) - Abdominal General gastrointestinal: Present: soft, non-tender, non-distended Female genitourinary: Present: deferred - Rectal Rectal Exam: deferred Results - Labs CBC & Chem 7: 01/29/19 09:27 01/29/19 04:35 Labs: Abnormal lab results 01/28/19 01/28/19 01/28/19 Range/Units 20:29 20:29 20:29 WBC (4.5-11.0) K/mm3 RDW 15.7 H (13.2-15.2) % Lymph % (Auto) (13.4-35.0) % Lymph # (1.2-5.4) K/mm3 Seg Neutrophils % 75.1 H (40.0-70.0) % Seg Neutrophils # 7.8 H (1.8-7.7) K/mm3 APTT 51.9 H (24.2-36.6) Sec. Fibrinogen (211-480) mg/dl Heparin Anti-Xa Level (0.3-0.7) U.I./ml Sodium 136 L (137-145) mmol/L Potassium 5.5 H (3.6-5.0) mmol/L Chloride 97.4 L (98-107) mmol/L Carbon Dioxide (22-30) mmol/L BUN 25 H (7-17) mg/dL Glucose 238 H (65-100) mg/dL POC Glucose (70-105) 01/28/19 01/29/19 01/29/19 Range/Units 21:59 01:14 04:35 WBC 12.5 H (4.5-11.0) K/mm3 RDW 15.7 H (13.2-15.2) % Lymph % (Auto) 7.3 L (13.4-35.0) % Lymph # 0.9 L (1.2-5.4) K/mm3 Seg Neutrophils % 87.4 H (40.0-70.0) % Seg Neutrophils # 10.9 H (1.8-7.7) K/mm3 APTT (24.2-36.6) Sec. Fibrinogen 542 H (211-480) mg/dl Heparin Anti-Xa Level (0.3-0.7) U.I./ml Sodium (137-145) mmol/L Potassium (3.6-5.0) mmol/L Chloride (98-107) mmol/L Carbon Dioxide (22-30) mmol/L BUN (7-17) mg/dL Glucose (65-100) mg/dL POC Glucose 332 H (70-105) 01/29/19 01/29/19 01/29/19 Range/Units 04:35 04:35 05:18 WBC (4.5-11.0) K/mm3 RDW (13.2-15.2) % Lymph % (Auto) (13.4-35.0) % Lymph # (1.2-5.4) K/mm3 Seg Neutrophils % (40.0-70.0) % Seg Neutrophils # (1.8-7.7) K/mm3 APTT (24.2-36.6) Sec. Fibrinogen (211-480) mg/dl Heparin Anti-Xa Level < 0.10 L (0.3-0.7) U.I./ml Sodium 135 L (137-145) mmol/L Potassium (3.6-5.0) mmol/L Chloride 93.8 L (98-107) mmol/L Carbon Dioxide 18 L (22-30) mmol/L BUN 25 H (7-17) mg/dL Glucose 472 H (65-100) mg/dL POC Glucose 420 H (70-105) 01/29/19 01/29/19 01/29/19 Range/Units 09:27 09:27 11:23 WBC (4.5-11.0) K/mm3 RDW 15.8 H (13.2-15.2) % Lymph % (Auto) 9.3 L (13.4-35.0) % Lymph # 1.0 L (1.2-5.4) K/mm3 Seg Neutrophils % 84.3 H (40.0-70.0) % Seg Neutrophils # 9.3 H (1.8-7.7) K/mm3 APTT (24.2-36.6) Sec. Fibrinogen 165 L (211-480) mg/dl Heparin Anti-Xa Level 0.11 L (0.3-0.7) U.I./ml Sodium (137-145) mmol/L Potassium (3.6-5.0) mmol/L Chloride (98-107) mmol/L Carbon Dioxide (22-30) mmol/L BUN (7-17) mg/dL Glucose (65-100) mg/dL POC Glucose 446 H (70-105) 01/29/19 Range/Units 13:11 WBC (4.5-11.0) K/mm3 RDW (13.2-15.2) % Lymph % (Auto) (13.4-35.0) % Lymph # (1.2-5.4) K/mm3 Seg Neutrophils % (40.0-70.0) % Seg Neutrophils # (1.8-7.7) K/mm3 APTT (24.2-36.6) Sec. Fibrinogen (211-480) mg/dl Heparin Anti-Xa Level (0.3-0.7) U.I./ml Sodium (137-145) mmol/L Potassium (3.6-5.0) mmol/L Chloride (98-107) mmol/L Carbon Dioxide (22-30) mmol/L BUN (7-17) mg/dL Glucose (65-100) mg/dL POC Glucose 359 H (70-105) - Imaging and Cardiology Abdominal x-ray: other ([facility] films were reviewed) Assessment and Plan 58-year-old female with history of PVD who has successful revascularization after significant amount of ischemic time. The patient's exam is consistent with right lower extremity compartment syndrome. I will take her emergently to the operating room for right lower extremity 4 compartment fasciotomy. I discussed this with the patient's boyfriend as well as the patient herself. The patient has had a significant amount of sedation and narcotics for her pain as well as her recent procedure saw was unable to get informed consent from the patient and the patient states that she does not have any family members that I was able to contact for consent so I am declaring this an emergency and myself as well as Dr. Gallagher has signed the consent and declared this an emergen cy.
--- NOTE | 2019-01-29 17:38 | Operative Report ---
Operative Report Operative Report: Date: 01/28/19 Prcoedure: US guidance for access- 72484 Right lower extremity arteriogram- 82733 Selective 3rd order catheterization-01080 Right lower extremity thrombolytic infusion- 63291 Indication: Right lower extremity ischemia. Cold right foot. Right 2nd toe gangrene. Rest pain. Physician: Dru Anesthesia: Moderate conscious sedation Contrast: 20 cc Procedure: Following informed and written consent, the patient was taken to the angiographic suite and the left groin was prepped and draped in the usual sterile fashion. Lidocaine was used for local anesthetic and the left common femoral artery was accesse using ultasound guidance. A micropuncture access set was used to access the left common femoral artey and a 5 Fr sheath insreted. A rim catheter was used to cross over to the right side with a glide wire and this was exchanged for a 5 Fr vertebral catheter. Contrast was injected to evaluate the right lower extremity using DSA with hand injection. An amplatz stiff guide wire was advanced through the verterbral catheter and the 5 Fr sheath exchanged for a 6 fr cross-over sheath. The glide wire and verterbral catheters were advanced into the proximal anterior tibial artery. Contrast was injected to verify postion. And the verterbral catheter exchanged for an EKOS infusion cath eter and a 50cm infusion wire advanced and locked into place.4 mg tPa was infused into the catheter and the side arm of the sheath locked with 4000 units of heparin. The sheath and catheter were sutured in place and sterile dressing and pressure bandage applied. The patient was taken to the ICU for observation and tPa infusion of 1mg/hour started in the ICU in stable condition. The patient will be re-evaluated in the afternoon on 01/29/19 Findings: Clinical exam demonstrated pulseless right foot with partial pallor and cold to the touch. Mild to moderate pain with some numbness. There is occlus ion of the mid SFA within the existing stent. There is minimal collateral flow with little flow into the lower leg and foot. Existing proximal SFA stent is patent with intimal hyperplasia and dissection just proximal. Mild to moderat narrowing of the origin of the SFA with eccentric plaque. EKOS catheter was placed with distal tip in the proximal third of the anterior tibial artery. The infustion lenth is from the proximal AT to the proximal SFA. Impression: 1. Occlusion of the right mid SFA within the existing stent. 2. Minimal flow distally. 3. Existing proximal stent is patent with narrowing and dissection just proximal 4. Mild to moderate narrowing at the SFA origin. 5. Overnight infusion of tPa at 1mg/hr
[2019-01-29] MEDS ORDERED: NACL 0.9% IR ONE (18:18)
--- NOTE | 2019-01-29 18:21 | Anesthesia Consultation ---
Addendum entered and electronically signed by ADITI PATTERSON PA 02/01/19 08:39: no changes Original Note: Anesthesia Consult and Med Hx Date of service: 01/29/19 - Airway Anesthetic Teeth Evaluation: Partials ROM Head & Neck: Adequate Mental/Hyoid Distance: Inadequate Mallampati Class: Class III Intubation Access Assessment: Possibly Difficult - Pulmonary Exam CTA: Yes - Cardiac Exam Cardiac Exam: RRR - Pre-Operative Health Status ASA Pre-Surgery Classification: ASA3, Emergency Proposed Anesthetic Plan: General - Pulmonary Hx Respiratory Symptoms: No - Cardiovascular System Hx Hypertension: Yes Hx Heart Attack/AMI: No Hx Percutaneous Transluminal Coronary Angioplasty (PTCA): No - Central Nervous System CVA: No - Gastrointestinal Hx Gastroesophageal Reflux Disease: No - Endocrine Hx Renal Disease: No Hx Insulin Dependent Diabetes: Yes (glucose >400 this admission) - Other Systems Hx Obesity: Yes - Additional Comments Anesthesia Medical History Comments: PMH HTN, IDDM, PVD s/p revascularization procedure to RLE in [employer] now scheduled for emergent fasciotomy. Patient received IV sedation during procedure so was only able to provide limited history and was unable to give written consent for anesthesia. NPO >8hrs, most recent BG 268, HD stable. Plan GA w/ LMA. Discussed with patient and boyfriend at bedside. Surgical consent signed by 2 MDs as there was no legal NOK available.
[2019-01-29] MEDS ORDERED: HumuLIN R IV PRN (18:22)
[2019-01-29] MEDS ORDERED: DILAUDID IV PRN (18:22)
--- NOTE | 2019-01-29 18:22 | Anesthesia Day of Surgery ---
Anesthesia Day of Surgery - Day of Surgery Patient Examined: Yes Patient H&P Reviewed: Yes Patient is NPO: Yes
--- NOTE | 2019-01-29 18:43 | Operative Report ---
Operative Report Operative Report: Date of Procedure: 01/29/2019 Pre-operative Diagnosis: Right Lower Extremity Compartment Syndrome Post-operative Diagnosis: Same Procedure(s): 1. Right Leg 4 Compartment Fasciotomy Surgeon: Hay Slaughter M.D. Lead Enterprise Architect: Benjie Anesthesia: Gen. Endotracheal Anesthesia EBL: Minimal Counts: Correct Complications: None Condition: Stable Findings: Muscle in both the deep and superficial posterior compartments and the anterior lateral compartments bulged upon opening the fascia. All muscle a ppeared healthy and viable. Specimen: None Indication: The patient is a 58-year-old female with history of peripheral vascular disease who recently developed compartment syndrome after revascularization. She was taken to the operating room for emergent fasciotomy. Description of Procedure: The patient was brought to the operating room and laid in supine position. After timeout was performed her right leg was prepped and draped in normal sterile fashion. A longitudinal incision was created on the medial aspect of the right leg and carried down to the fascia using cautery. The fascia was incised and then Metzenbaum scissors were used to incise the fascia longitudinally both cephalad and caudally. Upon opening the fascia the muscle bulged through the fascia. The muscle was examined and found to be viable. The the soleus and gastrocnemius muscles were taken down to open both the superficial and deep compartments. Hemostasis within the wound was achieved with a combination of cautery and direct pressure. Once hemostasis was achieved a longitudinal incision was created on the lateral aspect of the leg and carried down to the fascia using cautery. The anterior compartment fascia was then incised and Metzenbaum scissors were then used to incise the fascia longitudinally. Upon incising the fascia the muscle bulged and the muscle was examined and found to be viable. A small tiffanie was then made in the lateral compartment and the fascia was incised longitudinally using the Metzenbaum scissors. Upon opening the fascia bulged M again was examined and found to be healthy and viable. Hemostasis was achieved with cautery and direct pressure. Once hemostasis was achieved the wounds were irrigated and then packed with Xeroform gauze, fluffs, and ABDs pads. The leg was then wrapped with a loose Kerlix and 4 inch Myles bandage. The patient tolerated the procedure well. All sponge, needle, and instrument counts were correct. The patient was taken to the recovery area in stable condition.
[2019-01-29] MEDS ORDERED: DILAUDID ONE (18:46)
[2019-01-29] MEDS ORDERED: NORMODYNE IV PRN (18:52)
[2019-01-29] MEDS ORDERED: NORMODYNE IV ONE (19:09)
[2019-01-29] MEDS ORDERED: HumuLIN R ONE (19:10)
[2019-01-29 19:19] LABS: Hematocrit 38.8 % (30.3-42.9); Hemoglobin 12.3 gm/dl (10.1-14.3)
[2019-01-29 19:35] LABS: INR 1.06 (0.87-1.13)
[2019-01-29 19:36] LABS: Partial Thromboplastin Time 35.4 Sec. (24.2-36.6)
[2019-01-29] MEDS: HEPARIN/ 0.45% NACL-25,000 UNIT/500 ML 25,000 UNIT/500 ML BAG IV SCH (21:05)
--- NOTE | 2019-01-29 21:15 | Progress Note ---
Assessment and Plan Assessment and plan: Peripheral vascular disease, status post EKOS Gangrene of the toe Hyperkalemia Diabetes Hypertension Plan Admit to medicine Gave calcium, bicarbonate, insulin for hyperkalemia, follow potassium level Check fingersticks and initiate insulin sliding scale consult critical care, surgery Blood pressure control, restart outpatient medications Peripheral vascular disease per vascular DVT prophylaxis History Interval history: Patient seen and examined. Follow up Ischemic right leg. Hospitalist Physical - Physical exam Narrative exam: Gen: WDWN, NAD, Awake, Alert, Orientated HEENT: NCAT, EOMI, PERRL, OP Clear Neck: supple, no adenopathy, no thyromegaly, no JVD CVS/Heart: RRR, normal S1S2, pulses present bilaterally Chest/Lungs: CTA B, Symmetrical chest expansion, good air entry bilaterally GI/Abdomen: soft, NTND, good bowel sounds, no guarding or rebound /Bladder: no suprapubic tenderness, no CVA or paraspinal tenderness Extermity/Skin: no c/c/e, no obvious rash MSK: FROM x 4 Neuro: CN 2-12 grossly intact, no new focal deficits Psych: calm - Constitutional Vitals: Temp Pulse Resp BP Pulse Ox 98.6 F 94 H 22 132/58 98 01/29/19 20:00 01/29/19 20:21 01/29/19 20:21 01/29/19 20:21 01/29/19 20:21 General appearance: Present: mild distress - EENT ENT: hearing intact - Neck Neck: Present: supple, normal ROM - Respiratory Respiratory effort: normal Respiratory: bilateral: CTA - Cardiovascular Rhythm: regular Heart Sounds: Present: S1 & S2 - Extremities Extremities: abnormal Extremity abnormal: cyanosis, black (right mid toe), cold (right foot) Peripheral Pulses: abnormal - Abdominal General gastrointestinal: soft, non-tender, non-distended, normal bowel sounds - Neurologic Neurologic: CNII-XII intact, moves all extremities Results - Labs CBC & Chem 7: 01/29/19 19:10 01/30/19 02:50 Labs: Laboratory Last Values WBC 11.0 K/mm3 (4.5-11.0) 01/29/19 09:27 RBC 4.39 M/mm3 (3.65-5.03) 01/29/19 09:27 Hgb 12.3 gm/dl (10.1-14.3) 01/29/19 19:10 Hct 38.8 % (30.3-42.9) 01/29/19 19:10 MCV 90 fl (79-97) 01/29/19 09: MCH 29 pg (28-32) 01/29/19 09: MCHC 32 % (30-34) 01/29/19 09:27 RDW 15.8 % (13.2-15.2) H 01/29/19 09:27 Plt Count 315 K/mm3 (140-440) 01/29/19 19:10 Lymph % (Auto) 9.3 % (13.4-35.0) L 01/29/19 09:27 [place] % (Auto) 6.1 % (0.0-7.3) 01/29/19 09: Eos % (Auto) 0.0 % (0.0-4.3) 01/29/19 09: Baso % (Auto) 0.3 % (0.0-1.8) 01/29/19 09:27 Lymph # 1.0 K/mm3 (1.2-5.4) L 01/29/19 09:27 [place] # 0.7 K/mm3 (0.0-0.8) 01/29/19 09:27 Eos # 0.0 K/mm3 (0.0-0.4) 01/29/19 09:27 Baso # 0.0 K/mm3 (0.0-0.1) 01/29/19 09:27 Seg Neutrophils % 84.3 % (40.0-70.0) H 01/29/19 09:27 Seg Neutrophils # 9.3 K/mm3 (1.8-7.7) H 01/29/19 09:27 PT 14.5 Sec. (12.2-14.9) 01/29/19 19:10 INR 1.06 (0.87-1.13) 01/29/19 19:10 APTT 35.4 Sec. (24.2-36.6) 01/29/19 19:10 Fibrinogen 165 mg/dl (211-480) L 01/29/19 09:27 Heparin Anti-Xa Level 0.11 U.I./ml (0.3-0.7) L 01/29/19 09:27 Sodium 135 mmol/L (137-145) L 01/29/19 04:35 Potassium 4.7 mmol/L (3.6-5.0) 01/29/19 04:35 Chloride 93.8 mmol/L (98-107) L 01/29/19 04:35 Carbon Dioxide 18 mmol/L (22-30) L 01/29/19 04:35 Anion Gap 28 mmol/L 01/29/19 04:35 BUN 25 mg/dL (7-17) H 01/29/19 04:35 Creatinine 1.1 mg/dL (0.7-1.2) 01/29/19 04:35 Estimated GFR > 60 ml/min 01/29/19 04:35 BUN/Creatinine Ratio 23 % 01/29/19 04:35 Glucose 472 mg/dL (65-100) H 01/29/19 04:35 POC Glucose 289 (70-105) H 01/29/19 18:56 Calcium 10.0 mg/dL (8.4-10.2) 01/29/19 04:35
[2019-01-30] MEDS: DILAUDID IV PRN ×4 (00:53→17:57)
[2019-01-30 03:43] LABS: BUN/Creatinine Ratio 22; Blood Urea Nitrogen 24 mg/dL (7-17); Calcium 8.4 mg/dL (8.4-10.2); Hemolysis Index 10
[2019-01-30] MEDS: HumaLOG SUB-Q SCH ×4 (05:40→17:57)
[2019-01-30] MEDS: SODIUM CHLORIDE FLUSH SYRINGE 10 ML IV SCH ×3 (05:41→22:08)
[2019-01-30] MEDS: NORCO 5/325 PO PRN ×2 (08:23→14:43)
--- NOTE | 2019-01-30 08:26 | Progress Note ---
Assessment and Plan 58 y/o female with gangrenous extremity, status post EKOS for arterial opening, now awaiting to be re-evaluated by surgery. 1. BP control 2. Continue NPO until seen by surgery 3. Sliding scale for sugar control, continue q6 hour checks 4. If cleared by vascular, would be ok with transition to step down vs floor. Subjective Date of service: 01/30/19 Principal diagnosis: Right lower extremity ischemia. Cold foot Interval history: Patient taken back to OR by vascular yesterday for 4 compartment fasciotomy. Returned back to ICU. Hemodynamically. Stable. Still with pain but I am assuming it is better than yesterday. Foot is warm. Per nursing good doppler pulses. Objective - Constitutional Vitals: Vital Signs - 12hr 01/29/19 01/29/19 01/29/19 20:30 20:41 20:51 Temperature Pulse Rate 95 H 97 H 97 H Pulse Rate [ From Monitor] Pulse Rate [ Left Dorsalis Pedis] Respiratory 24 26 H 28 H Rate Blood Pressure 132/58 135/35 111/60 O2 Sat by Pulse 99 99 100 Oximetry 01/29/19 01/29/19 01/29/19 21:01 21:11 21:21 Temperature Pulse Rate 98 H 98 H 101 H Pulse Rate [ From Monitor] Pulse Rate [ Left Dorsalis Pedis] Respiratory 23 19 21 Rate Blood Pressure 150/48 150/48 169/59 O2 Sat by Pulse 100 100 100 Oximetry 01/29/19 01/29/19 01/29/19 21:31 21:41 21:51 Temperature Pulse Rate 98 H 101 H 100 H Pulse Rate [ From Monitor] Pulse Rate [ Left Dorsalis Pedis] Respiratory 22 22 23 Rate Blood Pressure 164/50 164/50 184/55 O2 Sat by Pulse 100 100 100 Oximetry 01/29/19 01/29/19 01/29/19 22:00 22:01 22:11 Temperature Pulse Rate 92 H 104 H 104 H Pulse Rate [ From Monitor] Pulse Rate [ Left Dorsalis Pedis] Respiratory 13 28 H Rate Blood Pressure 169/59 149/61 O2 Sat by Pulse 98 97 Oximetry 01/29/19 01/29/19 01/29/19 22:21 22:31 22:41 Temperature Pulse Rate 102 H 102 H 104 H Pulse Rate [ From Monitor] Pulse Rate [ Left Dorsalis Pedis] Respiratory 29 H 28 H 26 H Rate Blood Pressure 148/54 138/39 138/39 O2 Sat by Pulse 97 98 97 Oximetry 01/29/19 01/29/19 01/29/19 22:51 23:01 23:11 Temperature Pulse Rate 105 H 104 H 102 H Pulse Rate [ From Monitor] Pulse Rate [ Left Dorsalis Pedis] Respiratory 13 24 22 Rate Blood Pressure 165/92 165/92 85/62 O2 Sat by Pulse 98 99 98 Oximetry 01/29/19 01/29/19 01/29/19 23:21 23:27 23:31 Temperature Pulse Rate 101 H 101 H 100 H Pulse Rate [ From Monitor] Pulse Rate [ Left Dorsalis Pedis] Respiratory 22 22 26 H Rate Blood Pressure 146/58 146/58 146/58 O2 Sat by Pulse 98 97 98 Oximetry 01/29/19 01/29/19 01/29/19 23:38 23:41 23:51 Temperature 99.4 F Pulse Rate 102 H 103 H Pulse Rate [ From Monitor] Pulse Rate [ Left Dorsalis Pedis] Respiratory 34 H 27 H Rate Blood Pressure 146/58 146/58 O2 Sat by Pulse 97 98 Oximetry 01/30/19 01/30/19 01/30/19 00:00 00:01 00:10 Temperature Pulse Rate 102 H 103 H Pulse Rate [ 96 H From Monitor] Pulse Rate [ 96 H Left Dorsalis Pedis] Respiratory 25 H 21 19 Rate Blood Pressure 149/64 169/59 O2 Sat by Pulse 96 98 100 Oximetry 01/30/19 01/30/19 01/30/19 00:21 00:31 00:41 Temperature Pulse Rate 104 H 102 H 105 H Pulse Rate [ From Monitor] Pulse Rate [ Left Dorsalis Pedis] Respiratory 30 H 14 30 H Rate Blood Pressure 149/64 149/64 149/64 O2 Sat by Pulse 99 97 97 Oximetry 01/30/19 01/30/19 01/30/19 00:51 00:53 01:01 Temperature Pulse Rate 103 H 105 H Pulse Rate [ From Monitor] Pulse Rate [ Left Dorsalis Pedis] Respiratory 26 H 21 32 H Rate Blood Pressure 149/64 146/62 O2 Sat by Pulse 97 97 Oximetry 01/30/19 01/30/19 01/30/19 01:11 01:21 01:31 Temperature Pulse Rate 104 H 105 H 105 H Pulse Rate [ From Monitor] Pulse Rate [ Left Dorsalis Pedis] Respiratory 28 H 28 H 28 H Rate Blood Pressure 146/62 146/62 146/62 O2 Sat by Pulse 96 98 98 Oximetry 01/30/19 01/30/19 01/30/19 01:41 01:51 02:01 Temperature Pulse Rate 104 H 106 H 106 H Pulse Rate [ From Monitor] Pulse Rate [ Left Dorsalis Pedis] Respiratory 17 27 H 20 Rate Blood Pressure 146/62 146/62 155/65 O2 Sat by Pulse 99 99 99 Oximetry 01/30/19 01/30/19 01/30/19 02:11 02:21 02:31 Temperature Pulse Rate 107 H 105 H 107 H Pulse Rate [ From Monitor] Pulse Rate [ Left Dorsalis Pedis] Respiratory 19 28 H 27 H Rate Blood Pressure 146/62 146/62 146/62 O2 Sat by Pulse 100 97 98 Oximetry 01/30/19 01/30/19 01/30/19 02:41 02:51 03:01 Temperature Pulse Rate Pulse Rate [ From Monitor] Pulse Rate [ Left Dorsalis Pedis] Respiratory Rate Blood Pressure 155/65 155/65 155/65 O2 Sat by Pulse 98 98 99 Oximetry 01/30/19 01/30/19 01/30/19 03:04 03:11 03:21 Temperature 99.2 F Pulse Rate 107 H Pulse Rate [ From Monitor] Pulse Rate [ Left Dorsalis Pedis] Respiratory 26 H Rate Blood Pressure 155/65 155/65 O2 Sat by Pulse 98 99 Oximetry 01/30/19 01/30/19 01/30/19 03:31 03:41 03:51 Temperature Pulse Rate 107 H 107 H 108 H Pulse Rate [ 96 H From Monitor] Pulse Rate [ 96 H Left Dorsalis Pedis] Respiratory 31 H 23 23 Rate Blood Pressure 155/65 155/65 155/65 O2 Sat by Pulse 98 97 98 Oximetry 01/30/19 01/30/19 01/30/19 04:01 04:11 04:21 Temperature Pulse Rate 107 H 105 H 107 H Pulse Rate [ From Monitor] Pulse Rate [ Left Dorsalis Pedis] Respiratory 24 28 H 27 H Rate Blood Pressure 160/66 160/66 160/66 O2 Sat by Pulse 97 98 99 Oximetry 01/30/19 01/30/19 01/30/19 04:31 04:41 04:51 Temperature Pulse Rate 107 H 106 H 105 H Pulse Rate [ From Monitor] Pulse Rate [ Left Dorsalis Pedis] Respiratory 20 22 33 H Rate Blood Pressure 160/66 160/66 160/66 O2 Sat by Pulse 98 99 98 Oximetry 01/30/19 01/30/19 01/30/19 05:00 05:11 05:21 Temperature Pulse Rate 106 H 107 H 108 H Pulse Rate [ From Monitor] Pulse Rate [ Left Dorsalis Pedis] Respiratory 34 H 30 H 32 H Rate Blood Pressure 160/66 160/66 158/63 O2 Sat by Pulse 97 97 97 Oximetry 01/30/19 01/30/19 01/30/19 05:31 05:41 05:45 Temperature Pulse Rate 107 H 109 H Pulse Rate [ From Monitor] Pulse Rate [ Left Dorsalis Pedis] Respiratory 28 H 37 H 22 Rate Blood Pressure 158/63 158/63 O2 Sat by Pulse 98 97 Oximetry 01/30/19 01/30/19 01/30/19 05:51 06:00 06:11 Temperature Pulse Rate 107 H 108 H 104 H Pulse Rate [ From Monitor] Pulse Rate [ Left Dorsalis Pedis] Respiratory 29 H 30 H 29 H Rate Blood Pressure 158/63 158/63 117/41 O2 Sat by Pulse 96 96 96 Oximetry 01/30/19 01/30/19 01/30/19 06:21 06:31 06:41 Temperature Pulse Rate 107 H 108 H 108 H Pulse Rate [ From Monitor] Pulse Rate [ Left Dorsalis Pedis] Respiratory 30 H 29 H 26 H Rate Blood Pressure 158/63 158/63 158/63 O2 Sat by Pulse 96 97 97 Oximetry 01/30/19 01/30/19 01/30/19 06:51 07:01 07:11 Temperature Pulse Rate 108 H 108 H 107 H Pulse Rate [ From Monitor] Pulse Rate [ Left Dorsalis Pedis] Respiratory 27 H 29 H 34 H Rate Blood Pressure 158/63 130/52 130/52 O2 Sat by Pulse 98 96 97 Oximetry 01/30/19 01/30/19 01/30/19 07:21 07:31 07:41 Temperature Pulse Rate 107 H 107 H 109 H Pulse Rate [ From Monitor] Pulse Rate [ Left Dorsalis Pedis] Respiratory 35 H 20 27 H Rate Blood Pressure 130/52 130/52 130/52 O2 Sat by Pulse 97 97 98 Oximetry 01/30/19 01/30/19 07:51 08:01 Temperature Pulse Rate 106 H 109 H Pulse Rate [ From Monitor] Pulse Rate [ Left Dorsalis Pedis] Respiratory 22 36 H Rate Blood Pressure 130/52 156/56 O2 Sat by Pulse 97 95 Oximetry General appearance: Present: no acute distress, well-nourished, obese - EENT Eyes: PERRL, EOM intact ENT: hearing intact, clear oral mucosa - Neck Neck: supple, normal ROM, other (large in circumference) - Respiratory Respiratory effort: normal Respiratory: bilateral: CTA - Breasts Breasts: deferred - Cardiovascular Rhythm: regular Heart Sounds: Present: S1 & S2 Extremity abnormal: other (post surgical changes wrapped in bandages on right leg.) - Gastrointestinal General gastrointestinal: Present: soft, non-tender Rectal Exam: deferred - Genitourinary Female genitourinary: deferred - Labs CBC & Chem 7: 01/29/19 19:10 01/30/19 02:50 Labs: Abnormal lab results 01/29/19 01/29/19 01/29/19 Range/Units 09:27 09:27 11:23 RDW 15.8 H (13.2-15.2) % Lymph % (Auto) 9.3 L (13.4-35.0) % Lymph # 1.0 L (1.2-5.4) K/mm3 Seg Neutrophils % 84.3 H (40.0-70.0) % Seg Neutrophils # 9.3 H (1.8-7.7) K/mm3 Fibrinogen 165 L (211-480) mg/dl Heparin Anti-Xa Level 0.11 L (0.3-0.7) U.I./ml BUN (7-17) mg/dL Glucose (65-100) mg/dL POC Glucose 446 H (70-105) 01/29/19 01/29/19 01/29/19 Range/Units 13:11 17:17 18:56 RDW (13.2-15.2) % Lymph % (Auto) (13.4-35.0) % Lymph # (1.2-5.4) K/mm3 Seg Neutrophils % (40.0-70.0) % Seg Neutrophils # (1.8-7.7) K/mm3 Fibrinogen (211-480) mg/dl Heparin Anti-Xa Level (0.3-0.7) U.I./ml BUN (7-17) mg/dL Glucose (65-100) mg/dL POC Glucose 359 H 268 H 289 H (70-105) 01/29/19 01/29/19 01/30/19 Range/Units 19:10 23:59 02:50 RDW (13.2-15.2) % Lymph % (Auto) (13.4-35.0) % Lymph # (1.2-5.4) K/mm3 Seg Neutrophils % (40.0-70.0) % Seg Neutrophils # (1.8-7.7) K/mm3 Fibrinogen (211-480) mg/dl Heparin Anti-Xa Level 0.15 L (0.3-0.7) U.I./ml BUN 24 H (7-17) mg/dL Glucose 301 H (65-100) mg/dL POC Glucose 294 H (70-105) 01/30/19 Range/Units 04:58 RDW (13.2-15.2) % Lymph % (Auto) (13.4-35.0) % Lymph # (1.2-5.4) K/mm3 Seg Neutrophils % (40.0-70.0) % Seg Neutrophils # (1.8-7.7) K/mm3 Fibrinogen (211-480) mg/dl Heparin Anti-Xa Level (0.3-0.7) U.I./ml BUN (7-17) mg/dL Glucose (65-100) mg/dL POC Glucose 308 H (70-105) Medications & Allergies - Medications Allergies/Adverse Reactions: Allergies No Known Allergies Allergy (Verified 01/28/19 21:26) Home Medications: Home Medications Medication Instructions Recorded Confirmed Last Taken Type HumuLIN 70-30 Vial 01/28/19 Unknown History Valsartan [Diovan] 01/28/19 Unknown History hydroCHLOROthiazide [HCTZ] 25 mg PO QDAY 01/28/19 01/28/19 Unknown History Active Medications: Generic Name Dose Route Start Last Admin Trade Name Freq PRN Reason Stop Dose Admin Acetaminophen 650 mg 01/29/19 00:12 Tylenol PO Q4H PRN Pain MILD(1-3)/Fever >100.5/MARTÍNEZ Acetaminophen/Hydrocodone Bitart 2 each 01/28/19 21:44 01/29/19 01:12 [place] 5/325 PO 2 each Q6H PRN Administration Pain, Moderate (4-6) Dextrose 50 ml 01/29/19 10:24 D50w (25gm) Syringe IV PRN PRN Hypoglycemia Hydralazine HCl 5 mg 01/29/19 00:22 01/29/19 07:51 Apresoline IV 5 mg Q6H PRN Administration Hypertension Hydromorphone HCl 1 mg 01/29/19 09:03 01/30/19 05:45 Dilaudid IV 1 mg Q4H PRN Administration Pain , Severe (7-10) Hydromorphone HCl 0.5 mg 01/29/19 18:22 Dilaudid IV 01/30/19 23:59 Q10MIN PRN Pain , Severe (7-10) Sodium Chloride 1,000 mls @ 30 mls/hr 01/28/19 22:00 Nacl 0.9% 1000 Ml IV DIRECT RAFAEL Heparin Sodium/Sodium Chloride 25,000 unit in 500 mls @ 30 mls/hr 01/29/19 19:00 01/30/19 05:55 Heparin/ 0.45% Nacl-25,000 Unit/500 Ml IV 1,400 units/hr TITR RAFAEL 28 mls/hr Titration Protocol 1,500 UNITS/HR Insulin Human Lispro 0 unit 01/29/19 12:00 01/30/19 05:40 Humalog SUB-Q 8 unit Q6HR RAFAEL Administration Protocol Insulin Human Regular 5 units 01/29/19 18:22 01/29/19 19:10 Humulin R IV 5 units ONCE PRN Administration Hyperglycemia Labetalol HCl 10 mg 01/29/19 18:52 01/29/19 19:10 Normodyne IV 10 mg Q10MIN PRN Administration Hypertension Ondansetron HCl 4 mg 01/28/19 21:44 Zofran IV Q8H PRN Nausea And Vomiting Sodium Chloride 10 ml 01/29/19 10:00 01/30/19 05:41 Sodium Chloride Flush Syringe 10 Ml IV 10 ml BID RAFAEL Administration
--- NOTE | 2019-01-30 08:46 | Operative Report ---
Operative Report Operative Report: Date of service: 01/29/19 Procedure: Thrombolysis final recheck- 43977 Right anterior tibial artery PSYCHIATRIC ARNP- 93459 Right SFA stent placement- [id number] Indication: Right foot ischemia, rest pain, 2nd toe gangrene Physician: Dru Anesthesia: Conscious sedation Contrast: 75 cc Procedure: Patient had overnight infusion of tPA via an EKOS catheter into the right anterior tibial artery, popliteal and superficial femoral arteries at 1mg/hr for a total of approximately 12 hours. Upon examination of the leg was warm to the ankle with continued cool right foot. Following informed and written consent, the patient was taken to the angiographic suite and placed on the procedure table and the left groin and existing sheath and infusion catheter were prepped and draped in the usual sterile fashion. Patient was given 1 gram of Ancef IV. Lidocaine was used for local anesthetic at access site. A glide wire was advanced through the catheter into the anterior tibial artery. The catheter was exchanged for a 4 Fr vertebral catheter and contrast was initially injected into the anterior tibial artery and images obtained to the foot. The patient was given 4000 units of heparin IV. 400 mcg of nitroglycerin were injected into the anterior tibial artery. A 0.014" Choice PT guidewire was advanced into the distal AT. A 2.5 x 150 mm chocolate balloon was advanced into the anterior tibial artery and two areas in the mid and proximal AT were dilated to nominal pressure. The balloon was exchanged for a .0.014" trailblazer catheter which was advanced into the distal AT and an additional 200 mcg of nitroglycerin injected. DSA hand injected images of the foot were obtained. 4 mg of tPA was had injected into the foot. The 0.014" guidewire was AT and the trailblazer exchanged for the 4 Fr vertebral catheter. And images from the proximal AT obtained to the foot. The 0.014" guidewire was re-introduced and a second A 0.014" guidewire was advanced into the profunda femoris artery. DSA images from the sheath were obtained to just below the knee. An additional 1000 units of heparin were given IV. A 5mm chocolate angioplasty balloon was utilized to dilate the existing proximal stent up to the origin of the SFA with prolonged inflation and nominal pressure. Post angioplasty images were obtained. At this point a 6 x 40 mm everflex stent was deployed overlapping the existing stent and proximal across the dissection. The stent was dilated with a 6 x 40 mm balloon. DSA post images were obtained. Also images of the right foot obtained from injection from the sheath. The foot was examined which was signifcantly warmer with improved color. There was a strong dopplerable DP pulse with faint signal identified in the 2nd digital branch. At this point no further intervention was elected. The left groin access site was closed with a perclose closure device. The patient had significant pain in the right calf with palpation due to compartment syndrome following the revascularization, therefore the patient was taken to the OR upon completion by Dr. Hay Slaughter to perform a fasciotomy on the right leg. Findings: Following overnight infusion and injection of the right anterior tibial artery, there artery is patent to the dorsalis pedis with flow into the foot with digital flow to the 2nd toe with overall limited flow into other digits. There are is a focal area of high grade stenosis in the mid AT and moderate stenosis in the proximal AT. Both areas were treated with PSYCHIATRIC ARNP using a 2.5 mm chocolate balloon with good angiographic result. The SFA, profunda femoris and popliteal arteries are patent. There is moderate stenosis involving the origin of the SFA with a focal dissection in the proximal SFA just above the existing stent. Following PSYCHIATRIC ARNP with chocolate balloon there is improvement with mild residual stenosis at the origin. The dissection remained. Therefore a 6 x 40mm stent was placed with good result. There remained intimal hyplasia within the existing stent. The remainder of the mid and distal stent is patent with inline flow into the foot. The posterior tibial and peroneal arteries are c hronically occluded. There is a strong dopplerable dorsalis pedis pulse upon completion. Impression: 1. Patent Right AT and DP with flow into the foot following thrombolysis infustion overnight. 2. Successful PSYCHIATRIC ARNP of stenoses x 2 in the right AT 3. Successful stent placement in the proximal right SFA for focal dissection. 4. Improvement in the origin of the SFA following PSYCHIATRIC ARNP. 5. Dopplerable pulse in the DP. Foot was warm upon completion of the procedure. 6. Likely right calf compartment syndrome following revascularizatoin. 7. Patient taken to the OR for fasciotomy by Dr. Slaughter.
--- NOTE | 2019-01-30 09:03 | Progress Note ---
Assessment and Plan 1. s/p RLE revascularization 2. s/p RLE fasciotomy by Dr. Slaughter. 3. Right foot is warm and without pain. Will continue to monitor 4. 2nd toe dry gangrene stable continue with wound care. Subjective Date of service: 01/30/19 Principal diagnosis: Right lower extremity ischemia. Cold foot. Right 2nd toe gangrene Interval history: Patient is s/p day 1 of completion of RLE thrombolytic infusion, right AT angioplasty and SFA stent placement. s/p day 1 right leg fasciotomy by Dr. Slaughter Objective - Exam Narrative Exam: Patient resting comfortably and much more alert today. No complaints of pain. States she gets mild stinging sensations at times in the foot. - Constitutional Vitals: Vital Signs - 12hr 01/29/19 01/29/19 01/29/19 21:01 21:11 21:21 Temperature Pulse Rate 98 H 98 H 101 H Pulse Rate [ From Monitor] Pulse Rate [ Left Dorsalis Pedis] Respiratory 23 19 21 Rate Blood Pressure 150/48 150/48 169/59 O2 Sat by Pulse 100 100 100 Oximetry 01/29/19 01/29/19 01/29/19 21:31 21:41 21:51 Temperature Pulse Rate 98 H 101 H 100 H Pulse Rate [ From Monitor] Pulse Rate [ Left Dorsalis Pedis] Respiratory 22 22 23 Rate Blood Pressure 164/50 164/50 184/55 O2 Sat by Pulse 100 100 100 Oximetry 01/29/19 01/29/19 01/29/19 22:00 22:01 22:11 Temperature Pulse Rate 92 H 104 H 104 H Pulse Rate [ From Monitor] Pulse Rate [ Left Dorsalis Pedis] Respiratory 13 28 H Rate Blood Pressure 169/59 149/61 O2 Sat by Pulse 98 97 Oximetry 01/29/19 01/29/19 01/29/19 22:21 22:31 22:41 Temperature Pulse Rate 102 H 102 H 104 H Pulse Rate [ From Monitor] Pulse Rate [ Left Dorsalis Pedis] Respiratory 29 H 28 H 26 H Rate Blood Pressure 148/54 138/39 138/39 O2 Sat by Pulse 97 98 97 Oximetry 01/29/19 01/29/19 01/29/19 22:51 23:01 23:11 Temperature Pulse Rate 105 H 104 H 102 H Pulse Rate [ From Monitor] Pulse Rate [ Left Dorsalis Pedis] Respiratory 13 24 22 Rate Blood Pressure 165/92 165/92 85/62 O2 Sat by Pulse 98 99 98 Oximetry 01/29/19 01/29/19 01/29/19 23:21 23:27 23:31 Temperature Pulse Rate 101 H 101 H 100 H Pulse Rate [ From Monitor] Pulse Rate [ Left Dorsalis Pedis] Respiratory 22 22 26 H Rate Blood Pressure 146/58 146/58 146/58 O2 Sat by Pulse 98 97 98 Oximetry 01/29/19 01/29/19 01/29/19 23:38 23:41 23:51 Temperature 99.4 F Pulse Rate 102 H 103 H Pulse Rate [ From Monitor] Pulse Rate [ Left Dorsalis Pedis] Respiratory 34 H 27 H Rate Blood Pressure 146/58 146/58 O2 Sat by Pulse 97 98 Oximetry 01/30/19 01/30/19 01/30/19 00:00 00:01 00:10 Temperature Pulse Rate 102 H 103 H Pulse Rate [ 96 H From Monitor] Pulse Rate [ 96 H Left Dorsalis Pedis] Respiratory 25 H 21 19 Rate Blood Pressure 149/64 169/59 O2 Sat by Pulse 96 98 100 Oximetry 01/30/19 01/30/19 01/30/19 00:21 00:31 00:41 Temperature Pulse Rate 104 H 102 H 105 H Pulse Rate [ From Monitor] Pulse Rate [ Left Dorsalis Pedis] Respiratory 30 H 14 30 H Rate Blood Pressure 149/64 149/64 149/64 O2 Sat by Pulse 99 97 97 Oximetry 01/30/19 01/30/19 01/30/19 00:51 00:53 01:01 Temperature Pulse Rate 103 H 105 H Pulse Rate [ From Monitor] Pulse Rate [ Left Dorsalis Pedis] Respiratory 26 H 21 32 H Rate Blood Pressure 149/64 146/62 O2 Sat by Pulse 97 97 Oximetry 01/30/19 01/30/19 01/30/19 01:11 01:21 01:31 Temperature Pulse Rate 104 H 105 H 105 H Pulse Rate [ From Monitor] Pulse Rate [ Left Dorsalis Pedis] Respiratory 28 H 28 H 28 H Rate Blood Pressure 146/62 146/62 146/62 O2 Sat by Pulse 96 98 98 Oximetry 01/30/19 01/30/19 01/30/19 01:41 01:51 02:01 Temperature Pulse Rate 104 H 106 H 106 H Pulse Rate [ From Monitor] Pulse Rate [ Left Dorsalis Pedis] Respiratory 17 27 H 20 Rate Blood Pressure 146/62 146/62 155/65 O2 Sat by Pulse 99 99 99 Oximetry 01/30/19 01/30/19 01/30/19 02:11 02:21 02:31 Temperature Pulse Rate 107 H 105 H 107 H Pulse Rate [ From Monitor] Pulse Rate [ Left Dorsalis Pedis] Respiratory 19 28 H 27 H Rate Blood Pressure 146/62 146/62 146/62 O2 Sat by Pulse 100 97 98 Oximetry 01/30/19 01/30/19 01/30/19 02:41 02:51 03:01 Temperature Pulse Rate Pulse Rate [ From Monitor] Pulse Rate [ Left Dorsalis Pedis] Respiratory Rate Blood Pressure 155/65 155/65 155/65 O2 Sat by Pulse 98 98 99 Oximetry 01/30/19 01/30/19 01/30/19 03:04 03:11 03:21 Temperature 99.2 F Pulse Rate 107 H Pulse Rate [ From Monitor] Pulse Rate [ Left Dorsalis Pedis] Respiratory 26 H Rate Blood Pressure 155/65 155/65 O2 Sat by Pulse 98 99 Oximetry 01/30/19 01/30/19 01/30/19 03:31 03:41 03:51 Temperature Pulse Rate 107 H 107 H 108 H Pulse Rate [ 96 H From Monitor] Pulse Rate [ 96 H Left Dorsalis Pedis] Respiratory 31 H 23 23 Rate Blood Pressure 155/65 155/65 155/65 O2 Sat by Pulse 98 97 98 Oximetry 01/30/19 01/30/19 01/30/19 04:01 04:11 04:21 Temperature Pulse Rate 107 H 105 H 107 H Pulse Rate [ From Monitor] Pulse Rate [ Left Dorsalis Pedis] Respiratory 24 28 H 27 H Rate Blood Pressure 160/66 160/66 160/66 O2 Sat by Pulse 97 98 99 Oximetry 01/30/19 01/30/19 01/30/19 04:31 04:41 04:51 Temperature Pulse Rate 107 H 106 H 105 H Pulse Rate [ From Monitor] Pulse Rate [ Left Dorsalis Pedis] Respiratory 20 22 33 H Rate Blood Pressure 160/66 160/66 160/66 O2 Sat by Pulse 98 99 98 Oximetry 01/30/19 01/30/19 01/30/19 05:00 05:11 05:21 Temperature Pulse Rate 106 H 107 H 108 H Pulse Rate [ From Monitor] Pulse Rate [ Left Dorsalis Pedis] Respiratory 34 H 30 H 32 H Rate Blood Pressure 160/66 160/66 158/63 O2 Sat by Pulse 97 97 97 Oximetry 01/30/19 01/30/19 01/30/19 05:31 05:41 05:45 Temperature Pulse Rate 107 H 109 H Pulse Rate [ From Monitor] Pulse Rate [ Left Dorsalis Pedis] Respiratory 28 H 37 H 22 Rate Blood Pressure 158/63 158/63 O2 Sat by Pulse 98 97 Oximetry 01/30/19 01/30/19 01/30/19 05:51 06:00 06:11 Temperature Pulse Rate 107 H 108 H 104 H Pulse Rate [ From Monitor] Pulse Rate [ Left Dorsalis Pedis] Respiratory 29 H 30 H 29 H Rate Blood Pressure 158/63 158/63 117/41 O2 Sat by Pulse 96 96 96 Oximetry 01/30/19 01/30/19 01/30/19 06:21 06:31 06:41 Temperature Pulse Rate 107 H 108 H 108 H Pulse Rate [ From Monitor] Pulse Rate [ Left Dorsalis Pedis] Respiratory 30 H 29 H 26 H Rate Blood Pressure 158/63 158/63 158/63 O2 Sat by Pulse 96 97 97 Oximetry 01/30/19 01/30/19 01/30/19 06:51 07:01 07:11 Temperature Pulse Rate 108 H 108 H 107 H Pulse Rate [ From Monitor] Pulse Rate [ Left Dorsalis Pedis] Respiratory 27 H 29 H 34 H Rate Blood Pressure 158/63 130/52 130/52 O2 Sat by Pulse 98 96 97 Oximetry 01/30/19 01/30/19 01/30/19 07:21 07:31 07:41 Temperature Pulse Rate 107 H 107 H 109 H Pulse Rate [ From Monitor] Pulse Rate [ Left Dorsalis Pedis] Respiratory 35 H 20 27 H Rate Blood Pressure 130/52 130/52 130/52 O2 Sat by Pulse 97 97 98 Oximetry 01/30/19 01/30/19 07:51 08:01 Temperature Pulse Rate 106 H 109 H Pulse Rate [ From Monitor] Pulse Rate [ Left Dorsalis Pedis] Respiratory 22 36 H Rate Blood Pressure 130/52 156/56 O2 Sat by Pulse 97 95 Oximetry General appearance: Present: no acute distress, well-nourished - EENT Eyes: PERRL ENT: hearing intact - Respiratory Respiratory effort: normal - Cardiovascular Rhythm: regular Extremity abnormal: ulceration (Right 2nd toe with dry gangren. No drainage.), pulses diminished (1+ right DP. N/P PT), other (Right foot is warm with normal capillary refill. Foot is mildly swollen. There is mild bleeding around dressing site of the left groin and right leg.) - Labs CBC & Chem 7: 01/29/19 19:10 01/30/19 02:50 Labs: Abnormal lab results 01/29/19 01/29/19 01/29/19 Range/Units 09:27 09:27 11:23 RDW 15.8 H (13.2-15.2) % Lymph % (Auto) 9.3 L (13.4-35.0) % Lymph # 1.0 L (1.2-5.4) K/mm3 Seg Neutrophils % 84.3 H (40.0-70.0) % Seg Neutrophils # 9.3 H (1.8-7.7) K/mm3 Fibrinogen 165 L (211-480) mg/dl Heparin Anti-Xa Level 0.11 L (0.3-0.7) U.I./ml BUN (7-17) mg/dL Glucose (65-100) mg/dL POC Glucose 446 H (70-105) 01/29/19 01/29/19 01/29/19 Range/Units 13:11 17:17 18:56 RDW (13.2-15.2) % Lymph % (Auto) (13.4-35.0) % Lymph # (1.2-5.4) K/mm3 Seg Neutrophils % (40.0-70.0) % Seg Neutrophils # (1.8-7.7) K/mm3 Fibrinogen (211-480) mg/dl Heparin Anti-Xa Level (0.3-0.7) U.I./ml BUN (7-17) mg/dL Glucose (65-100) mg/dL POC Glucose 359 H 268 H 289 H (70-105) 01/29/19 01/29/19 01/30/19 Range/Units 19:10 23:59 02:50 RDW (13.2-15.2) % Lymph % (Auto) (13.4-35.0) % Lymph # (1.2-5.4) K/mm3 Seg Neutrophils % (40.0-70.0) % Seg Neutrophils # (1.8-7.7) K/mm3 Fibrinogen (211-480) mg/dl Heparin Anti-Xa Level 0.15 L (0.3-0.7) U.I./ml BUN 24 H (7-17) mg/dL Glucose 301 H (65-100) mg/dL POC Glucose 294 H (70-105) 01/30/19 Range/Units 04:58 RDW (13.2-15.2) % Lymph % (Auto) (13.4-35.0) % Lymph # (1.2-5.4) K/mm3 Seg Neutrophils % (40.0-70.0) % Seg Neutrophils # (1.8-7.7) K/mm3 Fibrinogen (211-480) mg/dl Heparin Anti-Xa Level (0.3-0.7) U.I./ml BUN (7-17) mg/dL Glucose (65-100) mg/dL POC Glucose 308 H (70-105) Medications & Allergies - Medications Allergies/Adverse Reactions: Allergies No Known Allergies Allergy (Verified 01/28/19 21:26) Home Medications: Home Medications Medication Instructions Recorded Confirmed Last Taken Type HumuLIN 70-30 Vial 01/28/19 Unknown History Valsartan [Diovan] 01/28/19 Unknown History hydroCHLOROthiazide [HCTZ] 25 mg PO QDAY 01/28/19 01/28/19 Unknown History Active Medications: Generic Name Dose Route Start Last Admin Trade Name Benji PRN Reason Stop Dose Admin Acetaminophen 650 mg 01/29/19 00:12 Tylenol PO Q4H PRN Pain MILD(1-3)/Fever >100.5/MARTÍNEZ Acetaminophen/Hydrocodone Bitart 2 each 01/28/19 21:44 01/30/19 08:23 [place]burn 5/325 PO 2 each Q6H PRN Administration Pain, Moderate (4-6) Dextrose 50 ml 01/29/19 10:24 D50w (25gm) Syringe IV PRN PRN Hypoglycemia Hydralazine HCl 5 mg 01/29/19 00:22 01/29/19 07:51 Apresoline IV 5 mg Q6H PRN Administration Hypertension Hydromorphone HCl 1 mg 01/29/19 09:03 01/30/19 05:45 Dilaudid IV 1 mg Q4H PRN Administration Pain , Severe (7-10) Hydromorphone HCl 0.5 mg 01/29/19 18:22 Dilaudid IV 01/30/19 23:59 Q10MIN PRN Pain , Severe (7-10) Sodium Chloride 1,000 mls @ 30 mls/hr 01/28/19 22:00 Nacl 0.9% 1000 Ml IV DIRECT RAFAEL Heparin Sodium/Sodium Chloride 25,000 unit in 500 mls @ 30 mls/hr 01/29/19 19:00 01/30/19 05:55 Heparin/ 0.45% Nacl-25,000 Unit/500 Ml IV 1,400 units/hr TITR RAFAEL 28 mls/hr Titration Protocol 1,500 UNITS/HR Insulin Human Lispro 0 unit 01/29/19 12:00 01/30/19 05:40 Humalog SUB-Q 8 unit Q6HR RAFAEL Administration Protocol Insulin Human Regular 5 units 01/29/19 18:22 01/29/19 19:10 Humulin R IV 5 units ONCE PRN Administration Hyperglycemia Labetalol HCl 10 mg 01/29/19 18:52 01/29/19 19:10 Normodyne IV 10 mg Q10MIN PRN Administration Hypertension Ondansetron HCl 4 mg 01/28/19 21:44 Zofran IV Q8H PRN Nausea And Vomiting Sodium Chloride 10 ml 01/29/19 10:00 01/30/19 05:41 Sodium Chloride Flush Syringe 10 Ml IV 10 ml BID RAFAEL Administration
--- NOTE | 2019-01-30 11:49 | Progress Note ---
Assessment and Plan Assessment and plan: Patient is a 58 yo woman with a history of hypertension, DM type 2 and PVD who came [place] [facility] [place] [facility] [place] [facility] [facility] [place] [facility]olysis of the right lower extremity Procedure 1: 01/29/19 Thrombolysis final recheck- 53494 Right anterior tibial artery [employer]- 49820 Right SFA stent placement- [id number] Indication: Right foot ischemia, rest pain, 2nd toe gangrene Physician: Dru Procedure 2: 01/29/2019 Pre-operative Diagnosis: Right Lower Extremity Compartment Syndrome Post-operative Diagnosis: Same Procedure(s): 1. Right Leg 4 Compartment Fasciotomy Surgeon: Hay Slaughter M.D. -Peripheral vascular disease, status post EKOS followed by Fasciotomy: Vascular surgeon is managing -Right Lower Extremity Compartment Syndrome s/p Right Leg 4 Compartment Fasciotomy: Vacular surgeon is managing -Gangrene of the 2n right toe as above -Hyperkalemia: monitor closely -Diabetes Mellitus type 2: SSI -Hypertension: low salt diet History Interval history: Patient seen and examined. Follow up Ischemic right leg. Hospitalist Physical - Physical exam Narrative exam: Gen: WDWN, NAD, Awake, Alert, Orientated HEENT: NCAT, EOMI, PERRL, OP Clear Neck: supple, no adenopathy, no thyromegaly, no JVD CVS/Heart: RRR, normal S1S2, pulses present bilaterally Chest/Lungs: CTA B, Symmetrical chest expansion, good air entry bilaterally GI/Abdomen: soft, NTND, good bowel sounds, no guarding or rebound /Bladder: no suprapubic tenderness, no CVA or paraspinal tenderness Extermity/Skin: right foot is warm, 2nd toe gangrene MSK: FROM x 4 Neuro: CN 2-12 grossly intact, no new focal deficits Psych: calm - Constitutional Vitals: Temp Pulse Resp BP Pulse Ox 99.2 F 109 H 36 H 156/56 97 01/30/19 03:04 01/30/19 09:01 01/30/19 09:01 01/30/19 09:01 01/30/19 09:01 Results - Labs CBC & Chem 7: 01/29/19 19:10 01/30/19 02:50 Labs: Laboratory Last Values WBC 11.0 K/mm3 (4.5-11.0) 01/29/19 09:27 RBC 4.39 M/mm3 (3.65-5.03) 01/29/19 09:27 Hgb 12.3 gm/dl (10.1-14.3) 01/29/19 19:10 Hct 38.8 % (30.3-42.9) 01/29/19 19:10 MCV 90 fl (79-97) 01/29/19 09: MCH 29 pg (28-32) 01/29/19 09: MCHC 32 % (30-34) 01/29/19 09:27 RDW 15.8 % (13.2-15.2) H 01/29/19 09:27 Plt Count 315 K/mm3 (140-440) 01/29/19 19:10 Lymph % (Auto) 9.3 % (13.4-35.0) L 01/29/19 09:27 Crane % (Auto) 6.1 % (0.0-7.3) 01/29/19 09: Eos % (Auto) 0.0 % (0.0-4.3) 01/29/19 09:27 Baso % (Auto) 0.3 % (0.0-1.8) 01/29/19 09:27 Lymph # 1.0 K/mm3 (1.2-5.4) L 01/29/19 09:27 Crane # 0.7 K/mm3 (0.0-0.8) 01/29/19 09:27 Eos # 0.0 K/mm3 (0.0-0.4) 01/29/19 09:27 Baso # 0.0 K/mm3 (0.0-0.1) 01/29/19 09:27 Seg Neutrophils % 84.3 % (40.0-70.0) H 01/29/19 09:27 Seg Neutrophils # 9.3 K/mm3 (1.8-7.7) H 01/29/19 09:27 PT 14.5 Sec. (12.2-14.9) 01/29/19 19:10 INR 1.06 (0.87-1.13) 01/29/19 19:10 APTT 35.4 Sec. (24.2-36.6) 01/29/19 19:10 Fibrinogen 165 mg/dl (211-480) L 01/29/19 09:27 Heparin Anti-Xa Level 0.61 U.I./ml (0.3-0.7) 01/30/19 02:50 Sodium 139 mmol/L (137-145) 01/30/19 02:50 Potassium 5.0 mmol/L (3.6-5.0) 01/30/19 02:50 Chloride 102.4 mmol/L (98-107) 01/30/19 02:50 Carbon Dioxide 25 mmol/L (22-30) D 01/30/19 02:50 Anion Gap 17 mmol/L 01/30/19 02:50 BUN 24 mg/dL (7-17) H 01/30/19 02:50 Creatinine 1.1 mg/dL (0.7-1.2) 01/30/19 02:50 Estimated GFR > 60 ml/min 01/30/19 02:50 BUN/Creatinine Ratio 22 % 01/30/19 02:50 Glucose 301 mg/dL (65-100) H 01/30/19 02:50 POC Glucose 308 (70-105) H 01/30/19 04:58 Calcium 8.4 mg/dL (8.4-10.2) D 01/30/19 02:50
[2019-01-30] MEDS: SODIUM CHLORIDE FLUSH SYRINGE 10 ML IV PRN (12:20)
[2019-01-30] MEDS: HEPARIN/ 0.45% NACL-25,000 UNIT/500 ML 25,000 UNIT/500 ML BAG IV SCH (14:49)
--- NOTE | 2019-01-30 22:01 | Progress Note ---
Assessment and Plan Patients right leg is well perfused. No evidence of active bleeding while on the heparin drip. Will change the dressing tomorrow. If the muscle edema has decreased enough for the wound to be closed, I will plan for closure in the opwraing room tomorrow. If it cannot be closed, will plan to have a wound vac placed at the bedside. Subjective Date of service: 01/30/19 Principal diagnosis: Right lower extremity ischemia. Cold foot. Right 2nd toe gangrene Interval history: No complaints. Some soreness in the calf with right foot movement. Right foot with baseline numbness, but no pain. Objective - Constitutional Vitals: Vital Signs - 12hr 01/30/19 01/30/19 01/30/19 10:00 10:01 10:11 Pulse Rate 110 H 108 H 108 H Pulse Rate [ From Monitor] Respiratory 32 H 29 H Rate Blood Pressure 156/56 156/56 O2 Sat by Pulse 93 97 Oximetry 01/30/19 01/30/19 01/30/19 10:21 10:31 10:41 Pulse Rate 108 H 106 H 106 H Pulse Rate [ From Monitor] Respiratory 34 H 30 H 33 H Rate Blood Pressure 156/56 156/56 156/56 O2 Sat by Pulse 97 97 96 Oximetry 01/30/19 01/30/19 01/30/19 10:51 11:01 11:11 Pulse Rate 107 H 105 H 105 H Pulse Rate [ From Monitor] Respiratory 30 H 14 35 H Rate Blood Pressure 156/56 156/56 156/56 O2 Sat by Pulse 99 97 98 Oximetry 01/30/19 01/30/19 01/30/19 11:21 11:31 11:41 Pulse Rate 105 H 109 H 113 H Pulse Rate [ From Monitor] Respiratory 29 H 35 H 16 Rate Blood Pressure 156/56 156/56 156/56 O2 Sat by Pulse 97 97 99 Oximetry 01/30/19 01/30/19 01/30/19 11:51 12:00 12:01 Pulse Rate 112 H 108 H Pulse Rate [ 108 H From Monitor] Respiratory 17 34 H 34 H Rate Blood Pressure 156/56 156/56 O2 Sat by Pulse 98 96 96 Oximetry 01/30/19 01/30/19 01/30/19 12:11 12:21 12:31 Pulse Rate 108 H 111 H 109 H Pulse Rate [ From Monitor] Respiratory 28 H 13 30 H Rate Blood Pressure 156/56 156/56 148/48 O2 Sat by Pulse 98 98 97 Oximetry 01/30/19 01/30/19 01/30/19 12:41 12:51 13:01 Pulse Rate 111 H 110 H 109 H Pulse Rate [ From Monitor] Respiratory 29 H 32 H 26 H Rate Blood Pressure 148/48 148/48 126/38 O2 Sat by Pulse 96 96 96 Oximetry 01/30/19 01/30/19 01/30/19 13:11 13:21 13:30 Pulse Rate 110 H 112 H 112 H Pulse Rate [ From Monitor] Respiratory 28 H 35 H 31 H Rate Blood Pressure 126/38 126/38 126/38 O2 Sat by Pulse 97 97 97 Oximetry 01/30/19 01/30/19 01/30/19 13:41 13:51 14:01 Pulse Rate 111 H 109 H 110 H Pulse Rate [ From Monitor] Respiratory 26 H 30 H 30 H Rate Blood Pressure 126/38 126/38 151/53 O2 Sat by Pulse 97 97 96 Oximetry 01/30/19 01/30/19 01/30/19 14:11 14:21 14:31 Pulse Rate 110 H 110 H 112 H Pulse Rate [ From Monitor] Respiratory 27 H 35 H 28 H Rate Blood Pressure 151/53 151/53 151/53 O2 Sat by Pulse 99 98 99 Oximetry 01/30/19 01/30/19 01/30/19 14:41 14:51 15:01 Pulse Rate 112 H 109 H 111 H Pulse Rate [ From Monitor] Respiratory 22 20 16 Rate Blood Pressure 151/53 151/53 164/71 O2 Sat by Pulse 100 99 98 Oximetry 01/30/19 20:52 Pulse Rate Pulse Rate [ From Monitor] Respiratory Rate Blood Pressure O2 Sat by Pulse 100 Oximetry General appearance: Present: no acute distress - Respiratory Respiratory effort: normal - Cardiovascular Heart rate: 101 Rhythm: other (tachy) Extremities: abnormal (right foot warm with doppler signals present, serosanguinous drainage to dressings.) - Labs CBC & Chem 7: 01/29/19 19:10 01/30/19 02:50 Labs: Abnormal lab results 01/29/19 01/29/19 01/30/19 Range/Units 19:10 23:59 02:50 Heparin Anti-Xa Level 0.15 L (0.3-0.7) U.I./ml BUN 24 H (7-17) mg/dL Glucose 301 H (65-100) mg/dL POC Glucose 294 H (70-105) 01/30/19 01/30/19 01/30/19 Range/Units 04:58 12:14 16:42 Heparin Anti-Xa Level (0.3-0.7) U.I./ml BUN (7-17) mg/dL Glucose (65-100) mg/dL POC Glucose 308 H 326 H 247 H (70-105) 01/30/19 Range/Units 20:59 Heparin Anti-Xa Level (0.3-0.7) U.I./ml BUN (7-17) mg/dL Glucose (65-100) mg/dL POC Glucose 236 H (70-105) Medications & Allergies - Medications Allergies/Adverse Reactions: Allergies No Known Allergies Allergy (Verified 01/28/19 21:26) Home Medications: Home Medications Medication Instructions Recorded Confirmed Last Taken Type HumuLIN 70-30 Vial 01/28/19 Unknown History Valsartan [Diovan] 01/28/19 Unknown History hydroCHLOROthiazide [HCTZ] 25 mg PO QDAY 01/28/19 01/28/19 Unknown History Active Medications: Generic Name Dose Route Start Last Admin Trade Name Freq PRN Reason Stop Dose Admin Acetaminophen 650 mg 01/29/19 00:12 Tylenol PO Q4H PRN Pain MILD(1-3)/Fever >100.5/MARTÍNEZ Acetaminophen/Hydrocodone Bitart 2 each 01/28/19 21:44 01/30/19 14:43 [place] 5/325 PO 2 each Q6H PRN Administration Pain, Moderate (4-6) Dextrose 50 ml 01/29/19 10:24 D50w (25gm) Syringe IV PRN PRN Hypoglycemia Hydralazine HCl 5 mg 01/29/19 00:22 01/29/19 07:51 Apresoline IV 5 mg Q6H PRN Administration Hypertension Hydromorphone HCl 1 mg 01/29/19 09:03 01/30/19 17:57 Dilaudid IV 1 mg Q4H PRN Administration Pain , Severe (7-10) Sodium Chloride 1,000 mls @ 30 mls/hr 01/28/19 22:00 Nacl 0.9% 1000 Ml IV DIRECT RAFAEL Heparin Sodium/Sodium Chloride 25,000 unit in 500 mls @ 30 mls/hr 01/29/19 19:00 01/30/19 20:03 Heparin/ 0.45% Nacl-25,000 Unit/500 Ml IV 1,200 units/hr TITR RAFAEL 24 mls/hr Titration Protocol 1,500 UNITS/HR Insulin Human Lispro 0 unit 01/29/19 12:00 01/30/19 17:57 Humalog SUB-Q 6 unit Q6HR RAFAEL Administration Protocol Insulin Human Regular 5 units 01/29/19 18:22 01/29/19 19:10 Humulin R IV 5 units ONCE PRN Administration Hyperglycemia Labetalol HCl 10 mg 01/29/19 18:52 01/29/19 19:10 Normodyne IV 10 mg Q10MIN PRN Administration Hypertension Ondansetron HCl 4 mg 01/28/19 21:44 Zofran IV Q8H PRN Nausea And Vomiting Sodium Chloride 10 ml 01/29/19 10:00 01/30/19 10:34 Sodium Chloride Flush Syringe 10 Ml IV 10 ml BID RAFAEL Administration
[2019-01-31] MEDS: HumaLOG SUB-Q SCH ×5 (01:59→23:37)
[2019-01-31] MEDS: DILAUDID IV PRN ×5 (02:04→22:29)
[2019-01-31 05:17] LABS: Hematocrit 30.6 % (30.3-42.9)
[2019-01-31 05:38] LABS: BUN/Creatinine Ratio 21; Blood Urea Nitrogen 17 mg/dL (7-17); Calcium 8.3 mg/dL (8.4-10.2)
[2019-01-31 05:39] LABS: Hemolysis Index 2
[2019-01-31] MEDS: NORCO 5/325 PO PRN ×2 (08:08→14:36)
--- NOTE | 2019-01-31 09:16 | Progress Note ---
Assessment and Plan Assessment and plan: Patient is a 58 yo woman with a history of hypertension, DM type 2 and PVD who came from Vascular Surgeon's office for thrombolysis of the right lower extremity Procedure 1: 01/29/19 Thrombolysis final recheck- 30635 Right anterior tibial artery [employer]- 92371 Right SFA stent placement- [id number] Indication: Right foot ischemia, rest pain, 2nd toe gangrene Physician: Dru Procedure 2: 01/29/2019 Pre-operative Diagnosis: Right Lower Extremity Compartment Syndrome Post-operative Diagnosis: Same Procedure(s): 1. Right Leg 4 Compartment Fasciotomy Surgeon: Hay Slaughter M.D. -Peripheral vascular disease, status post EKOS followed by Fasciotomy: Vascular surgeon is managing -Right Lower Extremity Compartment Syndrome s/p Right Leg 4 Compartment Fasciotomy: Vacular surgeon is managing -Gangrene of the 2n right toe as above -Hyperkalemia: monitor closely -Diabetes Mellitus type 2: SSI -Hypertension: low salt diet History Interval history: Patient seen and examined. Follow up Ischemic right leg. Still with pains, She denies cp, sob, n/v, severe headaches Hospitalist Physical - Physical exam Narrative exam: Gen: WDWN, NAD, Awake, Alert, Orientated HEENT: NCAT, EOMI, PERRL, OP Clear Neck: supple, no adenopathy, no thyromegaly, no JVD CVS/Heart: RRR, normal S1S2, pulses present bilaterally Chest/Lungs: CTA B, Symmetrical chest expansion, good air entry bilaterally GI/Abdomen: soft, NTND, good bowel sounds, no guarding or rebound /Bladder: no suprapubic tenderness, no CVA or paraspinal tenderness Extermity/Skin: right foot is warm, 2nd toe gangrene MSK: FROM x 4 Neuro: CN 2-12 grossly intact, no new focal deficits Psych: calm - Constitutional Vitals: Temp Pulse Resp BP Pulse Ox 98.6 F 111 H 24 141/61 93 01/31/19 06:34 01/31/19 06:34 01/31/19 06:34 01/31/19 06:34 01/30/19 23:53 General appearance: Present: no acute distress Results - Labs CBC & Chem 7: 01/31/19 04:49 01/31/19 04:49 Labs: Laboratory Last Values WBC 11.0 K/mm3 (4.5-11.0) 01/29/19 09:27 RBC 4.39 M/mm3 (3.65-5.03) 01/29/19 09:27 Hgb 10.0 gm/dl (10.1-14.3) L 01/31/19 04:49 Hct 30.6 % (30.3-42.9) D 01/31/19 04:49 MCV 90 fl (79-97) 01/29/19 09:27 MCH 29 pg (28-32) 01/29/19 09:27 MCHC 32 % (30-34) 01/29/19 09:27 RDW 15.8 % (13.2-15.2) H 01/29/19 09:27 Plt Count 278 K/mm3 (140-440) 01/31/19 04:49 Lymph % (Auto) 9.3 % (13.4-35.0) L 01/29/19 09:27 [place] % (Auto) 6.1 % (0.0-7.3) 01/29/19 09:27 Eos % (Auto) 0.0 % (0.0-4.3) 01/29/19 09:27 Baso % (Auto) 0.3 % (0.0-1.8) 01/29/19 09:27 Lymph # 1.0 K/mm3 (1.2-5.4) L 01/29/19 09:27 [place] # 0.7 K/mm3 (0.0-0.8) 01/29/19 09:27 Eos # 0.0 K/mm3 (0.0-0.4) 01/29/19 09:27 Baso # 0.0 K/mm3 (0.0-0.1) 01/29/19 09:27 Seg Neutrophils % 84.3 % (40.0-70.0) H 01/29/19 09:27 Seg Neutrophils # 9.3 K/mm3 (1.8-7.7) H 01/29/19 09:27 PT 14.5 Sec. (12.2-14.9) 01/29/19 19:10 INR 1.06 (0.87-1.13) 01/29/19 19:10 APTT 35.4 Sec. (24.2-36.6) 01/29/19 19:10 Fibrinogen 165 mg/dl (211-480) L 01/29/19 09:27 Heparin Anti-Xa Level 0.43 U.I./ml (0.3-0.7) 01/31/19 01:17 Sodium 135 mmol/L (137-145) L 01/31/19 04:49 Potassium 4.7 mmol/L (3.6-5.0) 01/31/19 04:49 Chloride 98.9 mmol/L (98-107) 01/31/19 04:49 Carbon Dioxide 25 mmol/L (22-30) 01/31/19 04:49 Anion Gap 16 mmol/L 01/31/19 04:49 BUN 17 mg/dL (7-17) 01/31/19 04:49 Creatinine 0.8 mg/dL (0.7-1.2) 01/31/19 04:49 Estimated GFR > 60 ml/min 01/31/19 04:49 BUN/Creatinine Ratio 21 % 01/31/19 04:49 Glucose 237 mg/dL (65-100) H 01/31/19 04:49 POC Glucose 241 (70-105) H 01/31/19 06:00 Calcium 8.3 mg/dL (8.4-10.2) L 01/31/19 04:49
[2019-01-31] MEDS: HEPARIN/ 0.45% NACL-25,000 UNIT/500 ML 25,000 UNIT/500 ML BAG IV SCH (10:24)
[2019-01-31] MEDS: SODIUM CHLORIDE FLUSH SYRINGE 10 ML IV SCH ×2 (10:24→22:31)
--- NOTE | 2019-01-31 11:14 | Event Note ---
Date: 01/31/19 Dressings changed, muscle is viable and edema is significantly improved. Plan to close incisions in the OR tomorrow.
[2019-01-31] MEDS ORDERED: ANCEF/STERILE WATER 2 GM/20 ML 2 GM/20 ML SYRINGE IV SCH (12:00)
[2019-01-31] MEDS ORDERED: ceFAZolin 2 GM in NACL 0.9% 100 ML IV ONE (12:00)
--- NOTE | 2019-01-31 13:28 | Progress Note ---
Assessment and Plan 1. s/p RLE revascularization 2. s/p RLE fasciotomy by Dr. Slaughter. 3. Right foot is warm and without pain. Will continue to monitor 4. 2nd toe dry gangrene stable continue with wound care. 5. Dr. Slaughter planning for closure of surgical wound tomorrow if edema has subsided enough. Subjective Date of service: 01/31/19 Principal diagnosis: Right lower extremity ischemia. Cold foot. Right 2nd toe gangrene Interval history: Patient is s/p day 2 of completion of RLE thrombolytic infusion, right AT angioplasty and SFA stent placement. s/p day 2 right leg fasciotomy by Dr. Slaughter. Patient transferred to third floor from ICU. Objective - Exam Narrative Exam: Patient resting comfortably. No complaints of pain. States she gets mild stinging sensations at times in the foot. Has some mild calf tenderness. In good spirits. - Constitutional Vitals: Vital Signs - 12hr 01/31/19 01/31/19 06:34 10:00 Temperature 98.6 F Pulse Rate [ 111 H Right Dorsalis Pedis/Posterior ] Respiratory 24 Rate Blood Pressure 141/61 O2 Sat by Pulse 94 Oximetry General appearance: Present: no acute distress - EENT Eyes: PERRL ENT: hearing intact - Cardiovascular Rhythm: regular Extremity abnormal: other (Right foot well perfused. Warm with good capillary refill. Palpable DP. 1+ edema. 2nd digit gangrene of toe stable.) - Labs CBC & Chem 7: 01/31/19 04:49 01/31/19 04:49 Labs: Abnormal lab results 01/30/19 01/30/19 01/30/19 Range/Units 12:14 16:42 20:59 Hgb (10.1-14.3) gm/dl Sodium (137-145) mmol/L Glucose (65-100) mg/dL POC Glucose 326 H 247 H 236 H (70-105) Calcium (8.4-10.2) mg/dL 01/30/19 01/31/19 01/31/19 Range/Units 23:50 04:49 04:49 Hgb 10.0 L (10.1-14.3) gm/dl Sodium 135 L (137-145) mmol/L Glucose 237 H (65-100) mg/dL POC Glucose 255 H (70-105) Calcium 8.3 L (8.4-10.2) mg/dL 01/31/19 01/31/19 Range/Units 06:00 11:51 Hgb (10.1-14.3) gm/dl Sodium (137-145) mmol/L Glucose (65-100) mg/dL POC Glucose 241 H 290 H (70-105) Calcium (8.4-10.2) mg/dL Medications & Allergies - Medications Allergies/Adverse Reactions: Allergies No Known Allergies Allergy (Verified 01/28/19 21:26) Home Medications: Home Medications Medication Instructions Recorded Confirmed Last Taken Type HumuLIN 70-30 Vial 01/28/19 Unknown History Valsartan [Diovan] 01/28/19 Unknown History hydroCHLOROthiazide [HCTZ] 25 mg PO QDAY 01/28/19 01/28/19 Unknown History Active Medications: Generic Name Dose Route Start Last Admin Trade Name Freq PRN Reason Stop Dose Admin Acetaminophen 650 mg 01/29/19 00:12 Tylenol PO Q4H PRN Pain MILD(1-3)/Fever >100.5/MARTÍNEZ Acetaminophen/Hydrocodone Bitart 2 each 01/28/19 21:44 01/31/19 08:08 [place] 5/325 PO 2 each Q6H PRN Administration Pain, Moderate (4-6) Dextrose 50 ml 01/29/19 10:24 D50w (25gm) Syringe IV PRN PRN Hypoglycemia Hydralazine HCl 5 mg 01/29/19 00:22 01/29/19 07:51 Apresoline IV 5 mg Q6H PRN Administration Hypertension Hydromorphone HCl 1 mg 01/29/19 09:03 01/31/19 11:12 Dilaudid IV 1 mg Q4H PRN Administration Pain , Severe (7-10) Sodium Chloride 1,000 mls @ 30 mls/hr 01/28/19 22:00 Nacl 0.9% 1000 Ml IV DIRECT RAFAEL Heparin Sodium/Sodium Chloride 25,000 unit in 500 mls @ 30 mls/hr 01/29/19 19: 00 01/31/19 11:06 Heparin/ 0.45% Nacl-25,000 Unit/500 Ml IV 1,100 units/hr TITR RAFAEL 22 mls/hr Titration Protocol 1,500 UNITS/HR Cefazolin Sodium 2 gm in 20 mls @ 40 mls/hr 01/31/19 12:00 Ancef/Sterile Water 2 Gm/20 Ml IV PREOP RAFAEL Insulin Human Lispro 0 unit 01/29/19 12:00 01/31/19 12:46 Humalog SUB-Q 6 unit Q6HR RAFAEL Administration Protocol Insulin Human Regular 5 units 01/29/19 18:22 01/29/19 19:10 Humulin R IV 5 units ONCE PRN Administration Hyperglycemia Labetalol HCl 10 mg 01/29/19 18:52 01/29/19 19:10 Normodyne IV 10 mg Q10MIN PRN Administration Hypertension Ondansetron HCl 4 mg 01/28/19 21:44 Zofran IV Q8H PRN Nausea And Vomiting Sodium Chloride 10 ml 01/29/19 10:00 01/31/19 10:24 Sodium Chloride Flush Syringe 10 Ml IV 10 ml BID RAFAEL Administration
[2019-02-01] MEDS ORDERED: NACL 0.9% IR ONE
[2019-02-01] MEDS: DILAUDID IV PRN ×7 (02:26→23:46)
[2019-02-01] MEDS: HumaLOG SUB-Q SCH ×2 (06:46→18:48)
--- NOTE | 2019-02-01 08:43 | Anesthesia Day of Surgery ---
Anesthesia Day of Surgery - Day of Surgery Patient Examined: Yes Patient H&P Reviewed: Yes Patient is NPO: Yes
[2019-02-01] MEDS ORDERED: DIPRIVAN 10 MG/ML IV ONE (08:51)
[2019-02-01] MEDS ORDERED: DILAUDID ONE ×2 (08:51→10:25)
[2019-02-01] MEDS ORDERED: XYLOCAINE MPF 2% ONE (08:51)
[2019-02-01] MEDS ORDERED: MARCAINE 0.5% INFILTRATI ONE (09:08)
[2019-02-01] MEDS ORDERED: MARCAINE-EPI 0.5%-1:200,000 INFILTRATI ONE (09:08)
[2019-02-01] MEDS ORDERED: NACL 0.9% 1000 ML 1,000 ML ONE (09:10)
[2019-02-01] MEDS ORDERED: HEPARIN/ 0.45% NACL-25,000 UNIT/500 ML 25,000 UNIT/500 ML BAG ONE (09:27)
[2019-02-01] MEDS: HEPARIN/ 0.45% NACL-25,000 UNIT/500 ML 25,000 UNIT/500 ML BAG IV SCH (09:30)
[2019-02-01] MEDS ORDERED: NACL 0.9% 1000 ML 1,000 ML IV SCH (10:00)
[2019-02-01] MEDS ORDERED: ZOFRAN ONE (10:44)
--- NOTE | 2019-02-01 10:50 | Operative Report ---
Operative Report Operative Report: Date of Procedure: 02/01/2019 Pre-operative Diagnosis: Right Lower Extremity to Compartment Syndrome Post-operative Diagnosis: Same Procedure(s): 1. Closure of Right Lower Extremity Medial Incision 2. Wound VAC Placement to Right Lower Extremity Lateral Incision (Wound Measures 23 x 7 x 1 cm) Surgeon: Hay Slaughter M.D. Gill Net Stringer: None Anesthesia: Gen. Endotracheal Anesthesia EBL: Minimal Counts: Correct Complications: None Condition: Stable Findings: All muscle was viable however there was too much edema in the anterolateral compartments to close the lateral incision. Specimen: None Indication: The patient is a 58-year-old female with a history of right lower extremity compartment syndrome who returns to the OR for closure of her wounds. She was given the risk, benefits, and alternative procedures and consented to the procedure. Description of Procedure: The patient was brought to the operating room and laid in supine position. After general endotracheal anesthesia was achieved her right leg was prepped and draped in normal sterile fashion. The posterior compartment was examined through the medial incision and all muscle was found to be healthy and viable. The wound was copiously irrigated and examined for any evidence of active bleeding. There was no evidence of active bleeding and it was obvious that the skin edges could be approximated without any tension so the wound was closed with jumana. The anterior and lateral compartments were examined and all muscle was found to be healthy and viable. The compartments were explored and there was no evidence of active bleeding. There was too much edema to close any of the skin so was determined that a wound VAC would have to be placed. Wound Vac was placed sterilely and a seal was achieved. The medial incision was then dressed with an island dressing and the leg was wrapped with a loose Kerlix. The patient tolerated the procedure well. All sponge, needle, and instrument counts were correct. The patient was taken to the recovery area in stable condition.
[2019-02-01] MEDS ORDERED: NORMODYNE IV PRN (10:57)
[2019-02-01] MEDS ORDERED: HumuLIN R IV ONE (12:00)
--- NOTE | 2019-02-01 15:29 | Progress Note ---
Assessment and Plan Assessment and plan: Patient is a 58 yo woman with a history of hypertension, DM type 2 and PVD who came from Vascular Surgeon's office for thrombolysis of the right lower extremity Procedure 1: 01/29/19 Thrombolysis final recheck- 37885 Right anterior tibial artery [employer]- 66089 Right SFA stent placement- [id number] Indication: Right foot ischemia, rest pain, 2nd toe gangrene Physician: Dru Procedure 2: 01/29/2019 Pre-operative Diagnosis: Right Lower Extremity Compartment Syndrome Post-operative Diagnosis: Same Procedure(s): 1. Right Leg 4 Compartment Fasciotomy Surgeon: Hay Slaughter M.D. -Peripheral vascular disease, status post EKOS followed by Fasciotomy: Vascular surgeon is managing -Right Lower Extremity Compartment Syndrome s/p Right Leg 4 Compartment Fasciotomy: Vacular surgeon is managing -Gangrene of the 2n right toe as above -Hyperkalemia: monitor closely -Diabetes Mellitus type 2: SSI -Hypertension: low salt diet History Interval history: Patient seen and examined. Follow up Ischemic right leg. Still with pains, She denies cp, sob, n/v, severe headaches Hospitalist Physical - Physical exam Narrative exam: Gen: WDWN, NAD, Awake, Alert, Orientated HEENT: NCAT, EOMI, PERRL, OP Clear Neck: supple, no adenopathy, no thyromegaly, no JVD CVS/Heart: RRR, normal S1S2, pulses present bilaterally Chest/Lungs: CTA B, Symmetrical chest expansion, good air entry bilaterally GI/Abdomen: soft, NTND, good bowel sounds, no guarding or rebound /Bladder: no suprapubic tenderness, no CVA or paraspinal tenderness Extermity/Skin: right foot is warm, 2nd toe gangrene MSK: FROM x 4 Neuro: CN 2-12 grossly intact, no new focal deficits Psych: calm - Constitutional Vitals: Temp Pulse Resp BP Pulse Ox 98.2 F 95 H 20 125/53 100 02/01/19 13:24 02/01/19 13:24 02/01/19 13:24 02/01/19 13:24 02/01/19 13:24 General appearance: Present: no acute distress Results - Labs CBC & Chem 7: 01/31/19 04:49 01/31/19 04:49 Labs: Laboratory Last Values WBC 11.0 K/mm3 (4.5-11.0) 01/29/19 09:27 RBC 4.39 M/mm3 (3.65-5.03) 01/29/19 09:27 Hgb 10.0 gm/dl (10.1-14.3) L 01/31/19 04:49 Hct 30.6 % (30.3-42.9) D 01/31/19 04:49 MCV 90 fl (79-97) 01/29/19 09:27 MCH 29 pg (28-32) 01/29/19 09:27 MCHC 32 % (30-34) 01/29/19 09:27 RDW 15.8 % (13.2-15.2) H 01/29/19 09:27 Plt Count 278 K/mm3 (140-440) 01/31/19 04:49 Lymph % (Auto) 9.3 % (13.4-35.0) L 01/29/19 09:27 [place] % (Auto) 6.1 % (0.0-7.3) 01/29/19 09:27 Eos % (Auto) 0.0 % (0.0-4.3) 01/29/19 09:27 Baso % (Auto) 0.3 % (0.0-1.8) 01/29/19 09:27 Lymph # 1.0 K/mm3 (1.2-5.4) L 01/29/19 09:27 [place] # 0.7 K/mm3 (0.0-0.8) 01/29/19 09:27 Eos # 0.0 K/mm3 (0.0-0.4) 01/29/19 09:27 Baso # 0.0 K/mm3 (0.0-0.1) 01/29/19 09:27 Seg Neutrophils % 84.3 % (40.0-70.0) H 01/29/19 09:27 Seg Neutrophils # 9.3 K/mm3 (1.8-7.7) H 01/29/19 09:27 PT 14.5 Sec. (12.2-14.9) 01/29/19 19:10 INR 1.06 (0.87-1.13) 01/29/19 19:10 APTT 35.4 Sec. (24.2-36.6) 01/29/19 19:10 Fibrinogen 165 mg/dl (211-480) L 01/29/19 09:27 Heparin Anti-Xa Level 0.34 U.I./ml (0.3-0.7) 01/31/19 09:59 Sodium 135 mmol/L (137-145) L 01/31/19 04:49 Potassium 4.7 mmol/L (3.6-5.0) 01/31/19 04:49 Chloride 98.9 mmol/L (98-107) 01/31/19 04:49 Carbon Dioxide 25 mmol/L (22-30) 01/31/19 04:49 Anion Gap 16 mmol/L 01/31/19 04:49 BUN 17 mg/dL (7-17) 01/31/19 04:49 Creatinine 0.8 mg/dL (0.7-1.2) 01/31/19 04:49 Estimated GFR > 60 ml/min 01/31/19 04:49 BUN/Creatinine Ratio 21 % 01/31/19 04:49 Glucose 237 mg/dL (65-100) H 01/31/19 04:49 POC Glucose 233 (70-105) H 02/01/19 11:49 Calcium 8.3 mg/dL (8.4-10.2) L 01/31/19 04:49
--- NOTE | 2019-02-01 17:17 | Progress Note ---
Assessment and Plan 1. s/p RLE revascularization 2. s/p RLE fasciotomy by Dr. Slaughter. 3. Right foot is warm and without pain. Will continue to monitor 4. 2nd toe dry gangrene stable continue with wound care. 5. Closure of medial incision. Anterolateral compart with wound vac. 6. Patient scheduled for rehab tomorrow. Subjective Date of service: 02/01/19 Principal diagnosis: Right lower extremity ischemia. Cold foot. Right 2nd toe gangrene Interval history: Patient is s/p day 3 of completion of RLE thrombolytic infusion, right AT angioplasty and SFA stent placement. s/p day 3 right leg fasciotomy by Dr. Slaughter. Patient transferred to surgical rehab unit. Had closure of medial incision. Would vac placed on lateral due to edema. Objective - Exam Narrative Exam: Patient resting comfortably. No complaints of pain. States she gets mild stinging sensations at times in the leg. Has some mild calf tenderness. In good spirits. - Constitutional Vitals: Vital Signs - 12hr 02/01/19 02/01/19 02/01/19 06:22 08:35 10:52 Temperature 99.0 F 1004 F H 97.9 F Pulse Rate 108 H 110 H Pulse Rate [ 103 H Right Dorsalis Pedis/Posterior ] Respiratory 24 22 16 Rate Blood Pressure 180/69 172/81 190/78 Blood Pressure [Right] O2 Sat by Pulse 100 98 96 Oximetry 02/01/19 02/01/19 02/01/19 10:55 11:00 11:05 Temperature Pulse Rate 112 H 107 H 105 H Pulse Rate [ Right Dorsalis Pedis/Posterior ] Respiratory 22 20 20 Rate Blood Pressure 191/84 183/87 183/77 Blood Pressure [Right] O2 Sat by Pulse 99 100 100 Oximetry 02/01/19 02/01/19 02/01/19 11:10 11:15 11:20 Temperature Pulse Rate 105 H 105 H 87 Pulse Rate [ Right Dorsalis Pedis/Posterior ] Respiratory 2 L 20 21 Rate Blood Pressure 190/76 190/92 154/65 Blood Pressure [Right] O2 Sat by Pulse 99 100 98 Oximetry 02/01/19 02/01/19 02/01/19 11:25 11:30 11:45 Temperature Pulse Rate 88 89 90 Pulse Rate [ Right Dorsalis Pedis/Posterior ] Respiratory 19 20 18 Rate Blood Pressure 167/68 160/69 151/63 Blood Pressure [Right] O2 Sat by Pulse 97 98 100 Oximetry 02/01/19 02/01/19 02/01/19 12:00 12:15 13:24 Temperature 98.4 F 98.2 F Pulse Rate 90 94 H 95 H Pulse Rate [ Right Dorsalis Pedis/Posterior ] Respiratory 22 17 20 Rate Blood Pressure 144/60 126/51 Blood Pressure 125/53 [Right] O2 Sat by Pulse 99 99 100 Oximetry 02/01/19 02/01/19 02/01/19 15:31 15:32 16:00 Temperature 98.4 F 98.4 F 98 F Pulse Rate 104 H Pulse Rate [ Right Dorsalis Pedis/Posterior ] Respiratory 20 20 20 Rate Blood Pressure 194/80 Blood Pressure 194/80 [Right] O2 Sat by Pulse 100 Oximetry General appearance: Present: no acute distress - EENT Eyes: PERRL ENT: hearing intact - Respiratory Respiratory effort: normal - Cardiovascular Rhythm: regular Extremity abnormal: other (Right foot remains warm with good capillary refill. Right foot swelling. Strong doppler of DP. 2nd digit gangrene stable.) - Labs CBC & Chem 7: 01/31/19 04:49 01/31/19 04:49 Labs: Abnormal lab results 01/31/19 01/31/19 02/01/19 Range/Units 17:54 22:52 06:14 POC Glucose 300 H 234 H 228 H (70-105) 02/01/19 02/01/19 02/01/19 Range/Units 08:41 11:49 16:38 POC Glucose 218 H 233 H 261 H (70-105) Medications & Allergies - Medications Allergies/Adverse Reactions: Allergies No Known Allergies Allergy (Verified 01/28/19 21:26) Home Medications: Home Medications Medication Instructions Recorded Confirmed Last Taken Type HumuLIN 70-30 Vial 01/28/19 Unknown History Valsartan [Diovan] 01/28/19 Unknown History hydroCHLOROthiazide [HCTZ] 25 mg PO QDAY 01/28/19 01/28/19 Unknown History Active Medications: Generic Name Dose Route Start Last Admin Trade Name Freq PRN Reason Stop Dose Admin Acetaminophen 650 mg 01/29/19 00:12 Tylenol PO Q4H PRN Pain MILD(1-3)/Fever >100.5/MARTÍNEZ Acetaminophen/Hydrocodone Bitart 2 each 01/28/19 21:44 01/31/19 14:36 [place] 5/325 PO 2 each Q6H PRN Administration Pain, Moderate (4-6) Apixaban 10 mg 02/01/19 11:00 Eliquis PO Q12HR [facility] Protocol Dextrose 50 ml 01/29/19 10:24 D50w (25gm) Syringe IV PRN PRN Hypoglycemia Hydralazine HCl 5 mg 01/29/19 00:22 01/29/19 07:51 Apresoline IV 5 mg Q6H PRN Administration Hypertension Hydromorphone HCl 1 mg 01/29/19 09:03 02/01/19 16:17 Dilaudid IV 1 mg Q4H PRN Administration Pain , Severe (7-10) Hydromorphone HCl 0.5 mg 02/01/19 08:48 02/01/19 11:20 Dilaudid IV 02/02/19 08:47 0.5 mg Q10MIN PRN Administration Pain , Severe (7-10) Heparin Sodium/Sodium Chloride 25,000 unit in 500 mls @ 30 mls/hr 01/29/19 19:00 02/01/19 09:30 Heparin/ 0.45% Nacl-25,000 Unit/500 Ml IV 1,100 units/hr TITR RAFAEL 22 mls/hr Administration Protocol 1,500 UNITS/HR Sodium Chloride 1,000 mls @ 75 mls/hr 02/01/19 10:00 02/01/19 09:15 Nacl 0.9% 1000 Ml IV 75 mls/hr DIRECT RAFAEL Administration Insulin Human Lispro 0 unit 01/29/19 12:00 02/01/19 06:46 Humalog SUB-Q 4 unit Q6HR RAFAEL Administration Protocol Insulin Human Regular 5 units 01/29/19 18:22 01/29/19 19:10 Humulin R IV 5 units ONCE PRN Administration Hyperglycemia Labetalol HCl 10 mg 01/29/19 18:52 01/29/19 19:10 Normodyne IV 10 mg Q10MIN PRN Administration Hypertension Labetalol HCl 10 mg 02/01/19 10:57 02/01/19 11:15 Normodyne IV 02/01/19 20:00 10 mg Q10MIN PRN Administration Hypertension Ondansetron HCl 4 mg 02/28/19 21:44 Zofran IV Q8H PRN Nausea And Vomiting
[2019-02-01] MEDS: APRESOLINE IV PRN (18:20)
[2019-02-01] MEDS: ELIQUIS PO SCH (22:57)
[2019-02-02] MEDS: NORCO 5/325 PO PRN (00:47)
[2019-02-02] MEDS: HumaLOG SUB-Q SCH ×7 (01:35→22:06)
[2019-02-02] MEDS: DILAUDID IV PRN ×4 (03:49→21:06)
[2019-02-02] MEDS: ELIQUIS PO SCH ×2 (11:57→21:56)
--- NOTE | 2019-02-02 13:13 | Progress Note ---
Assessment and Plan Assessment and plan: Patient is a 58 yo woman with a history of hypertension, DM type 2 and PVD who came from Vascular Surgeon's office for thrombolysis of the right lower extremity Procedure 1: 01/29/19 Thrombolysis final recheck- 43937 Right anterior tibial artery [employer]- 13931 Right SFA stent placement- [id number] Indication: Right foot ischemia, rest pain, 2nd toe gangrene Physician: Dru Procedure 2: 01/29/2019 Pre-operative Diagnosis: Right Lower Extremity Compartment Syndrome Post-operative Diagnosis: Same Procedure(s): 1. Right Leg 4 Compartment Fasciotomy Surgeon: Hay Slaughter M.D. -Peripheral vascular disease, status post EKOS followed by Fasciotomy: Vascular surgeon is managing -Right Lower Extremity Compartment Syndrome s/p Right Leg 4 Compartment Fasciotomy: Vacular surgeon is managing -Suspected Acute hypoxic respiratory failure, poa: treat with O2 -Gangrene of the 2n right toe as above -Hyperkalemia: monitor closely -Diabetes Mellitus type 2: SSI -Hypertension: low salt diet History Interval history: Patient seen and examined. Follow up Ischemic right leg. Still with pains, She denies cp, sob, n/v, severe headaches Hospitalist Physical - Physical exam Narrative exam: Gen: WDWN, NAD, Awake, Alert, Orientated HEENT: NCAT, EOMI, PERRL, OP Clear Neck: supple, no adenopathy, no thyromegaly, no JVD CVS/Heart: RRR, normal S1S2, pulses present bilaterally Chest/Lungs: CTA B, Symmetrical chest expansion, good air entry bilaterally GI/Abdomen: soft, NTND, good bowel sounds, no guarding or rebound /Bladder: no suprapubic tenderness, no CVA or paraspinal tenderness Extermity/Skin: right foot is warm, 2nd toe gangrene MSK: FROM x 4 Neuro: CN 2-12 grossly intact, no new focal deficits Psych: calm - Constitutional Vitals: Temp Pulse Resp BP Pulse Ox 98.1 F 110 H 20 142/54 100 02/02/19 11:00 02/02/19 11:00 02/02/19 11:00 02/02/19 11:00 02/02/19 11:00 General appearance: Present: no acute distress Results - Labs CBC & Chem 7: 01/31/19 04:49 01/31/19 04:49 Labs: Laboratory Last Values WBC 11.0 K/mm3 (4.5-11.0) 01/29/19 09:27 RBC 4.39 M/mm3 (3.65-5.03) 01/29/19 09:27 Hgb 10.0 gm/dl (10.1-14.3) L 01/31/19 04:49 Hct 30.6 % (30.3-42.9) D 01/31/19 04:49 MCV 90 fl (79-97) 01/29/19 09:27 MCH 29 pg (28-32) 01/29/19 09:27 MCHC 32 % (30-34) 01/29/19 09:27 RDW 15.8 % (13.2-15.2) H 01/29/19 09:27 Plt Count 278 K/mm3 (140-440) 01/31/19 04:49 Lymph % (Auto) 9.3 % (13.4-35.0) L 01/29/19 09:27 [place] % (Auto) 6.1 % (0.0-7.3) 01/29/19 09:27 Eos % (Auto) 0.0 % (0.0-4.3) 01/29/19 09:27 Baso % (Auto) 0.3 % (0.0-1.8) 01/29/19 09:27 Lymph # 1.0 K/mm3 (1.2-5.4) L 01/29/19 09:27 [place] # 0.7 K/mm3 (0.0-0.8) 01/29/19 09:27 Eos # 0.0 K/mm3 (0.0-0.4) 01/29/19 09:27 Baso # 0.0 K/mm3 (0.0-0.1) 01/29/19 09:27 Seg Neutrophils % 84.3 % (40.0-70.0) H 01/29/19 09:27 Seg Neutrophils # 9.3 K/mm3 (1.8-7.7) H 01/29/19 09:27 PT 14.5 Sec. (12.2-14.9) 01/29/19 19:10 INR 1.06 (0.87-1.13) 01/29/19 19:10 APTT 35.4 Sec. (24.2-36.6) 01/29/19 19:10 Fibrinogen 165 mg/dl (211-480) L 01/29/19 09:27 Heparin Anti-Xa Level 0.34 U.I./ml (0.3-0.7) 01/31/19 09:59 Sodium 135 mmol/L (137-145) L 01/31/19 04:49 Potassium 4.7 mmol/L (3.6-5.0) 01/31/19 04:49 Chloride 98.9 mmol/L (98-107) 01/31/19 04:49 Carbon Dioxide 25 mmol/L (22-30) 01/31/19 04:49 Anion Gap 16 mmol/L 01/31/19 04:49 BUN 17 mg/dL (7-17) 01/31/19 04:49 Creatinine 0.8 mg/dL (0.7-1.2) 01/31/19 04:49 Estimated GFR > 60 ml/min 01/31/19 04:49 BUN/Creatinine Ratio 21 % 01/31/19 04:49 Glucose 237 mg/dL (65-100) H 01/31/19 04:49 POC Glucose 328 (70-105) H 02/02/19 11:39 Calcium 8.3 mg/dL (8.4-10.2) L 01/31/19 04:49
[2019-02-02] MEDS ORDERED: DULCOLAX PR ONE (14:00)
[2019-02-02] MEDS: PLAVIX PO SCH (16:41)
--- NOTE | 2019-02-02 19:36 | Progress Note ---
Assessment and Plan 1. s/p RLE revascularization 2. s/p RLE fasciotomy by Dr. Slaughter. 3. Right foot is warm and without pain. Will continue to monitor 4. 2nd toe dry gangrene stable continue with wound care. 5. Closure of medial incision. Anterolateral compart with wound vac. 6. Patient scheduled for rehab tomorrow. Subjective Date of service: 02/02/19 Principal diagnosis: Right lower extremity ischemia. Cold foot. Right 2nd toe gangrene Interval history: Patient is s/p day 4 of completion of RLE thrombolytic infusion, right AT angioplasty and SFA stent placement. s/p day 4 right leg fasciotomy by Dr. Slaughter. Patient transferred to surgical rehab unit. Had closure of medial incision. Would vac placed on lateral due to edema. States she is supposed to have PT tomorrow. Objective - Exam Narrative Exam: Patient resting comfortably. No complaints of pain. States she gets mild stinging sensations at times in the leg. Has some mild calf tenderness. In good spirits. Has been up a little bit. - Constitutional Vitals: Vital Signs - 12hr 02/02/19 02/02/19 02/02/19 11:00 11:34 15:13 Temperature 98.1 F 98.7 F 97.0 F L Pulse Rate 110 H 109 H Respiratory 20 20 20 Rate Blood Pressure 142/54 137/56 Blood Pressure 142/54 [Right] O2 Sat by Pulse 100 100 Oximetry 02/02/19 16:07 Temperature 98.9 F Pulse Rate 116 H Respiratory 20 Rate Blood Pressure Blood Pressure 137/56 [Right] O2 Sat by Pulse 18 L Oximetry General appearance: Present: no acute distress - EENT Eyes: PERRL - Respiratory Respiratory effort: normal - Cardiovascular Rhythm: regular Extremity abnormal: other (The right foot remains warm. Less erythema. Strong DP doppler. 2nd digit gangrene stable.) - Labs CBC & Chem 7: 01/31/19 04:49 01/31/19 04:49 Labs: Abnormal lab results 02/02/19 02/02/19 02/02/19 Range/Units 00:42 06:27 11:39 POC Glucose 223 H 214 H 328 H (70-105) 02/02/19 Range/Units 16:51 POC Glucose 333 H (70-105) Medications & Allergies - Medications Allergies/Adverse Reactions: Allergies No Known Allergies Allergy (Verified 01/28/19 21:26) Home Medications: Home Medications Medication Instructions Recorded Confirmed Last Taken Type HumuLIN 70-30 Vial 01/28/19 Unknown History Valsartan [Diovan] 01/28/19 Unknown History hydroCHLOROthiazide [HCTZ] 25 mg PO QDAY 01/28/19 01/28/19 Unknown History Active Medications: Generic Name Dose Route Start Last Admin Trade Name Freq PRN Reason Stop Dose Admin Acetaminophen 650 mg 01/29/19 00:12 Tylenol PO Q4H PRN Pain MILD(1-3)/Fever >100.5/MARTÍNEZ Acetaminophen/Hydrocodone Bitart 2 each 01/28/19 21:44 02/02/19 00:47 [place] 5/325 PO 1 each Q6H PRN Administration Pain, Moderate (4-6) Apixaban 10 mg 02/01/19 22:00 02/02/19 11:57 Eliquis PO 10 mg Q12HR RAFAEL Administration Protocol Clopidogrel Bisulfate 75 mg 02/02/19 14:00 02/02/19 16:41 Plavix PO 75 mg QDAY RAFAEL Administration Dextrose 50 ml 01/29/19 10:24 D50w (25gm) Syringe IV PRN PRN Hypoglycemia Hydralazine HCl 5 mg 01/29/19 00:22 02/01/19 18:20 Apresoline IV 5 mg Q6H PRN Administration Hypertension Hydromorphone HCl 1 mg 01/29/19 09:03 02/02/19 16:53 Dilaudid IV 1 mg Q4H PRN Administration Pain , Severe (7-10) Sodium Chloride 1,000 mls @ 75 mls/hr 02/01/19 10:00 02/01/19 09:15 Nacl 0.9% 1000 Ml IV 75 mls/hr DIRECT RAFAEL Administration Insulin Glargine 5 units 02/02/19 22:00 Lantus SUB-Q QHS RAFAEL Insulin Human Lispro 0 unit 01/29/19 12:00 02/02/19 18:15 Humalog SUB-Q 8 unit Q6HR RAFAEL Administration Protocol Insulin Human Regular 5 units 01/29/19 18:22 01/29/19 19:10 Humulin R IV 5 units ONCE PRN Administration Hyperglycemia Labetalol HCl 10 mg 01/29/19 18:52 01/29/19 19:10 Normodyne IV 10 mg Q10MIN PRN Administration Hypertension Ondansetron HCl 4 mg 01/28/19 21:44 Zofran IV Q8H PRN Nausea And Vomiting
[2019-02-02] MEDS: LANTUS SUB-Q SCH (21:55)
[2019-02-03] MEDS: HumaLOG SUB-Q SCH ×4 (00:05→17:13)
[2019-02-03] MEDS: DILAUDID IV PRN ×3 (00:59→21:00)
[2019-02-03] MEDS: PLAVIX PO SCH (11:08)
[2019-02-03] MEDS: ELIQUIS PO SCH ×2 (11:08→20:59)
[2019-02-03] MEDS: NORCO 5/325 PO PRN ×2 (12:07→23:49)
--- NOTE | 2019-02-03 15:41 | Progress Note ---
Assessment and Plan Assessment and plan: Patient is a 58 yo woman with a history of hypertension, DM type 2 and PVD who came from Vascular Surgeon's office for thrombolysis of the right lower extremity Procedure 1: 01/29/19 Thrombolysis final recheck- 78306 Right anterior tibial artery [employer]- 79218 Right SFA stent placement- [id number] Indication: Right foot ischemia, rest pain, 2nd toe gangrene Physician: Dru Procedure 2: 01/29/2019 Pre-operative Diagnosis: Right Lower Extremity Compartment Syndrome Post-operative Diagnosis: Same Procedure(s): 1. Right Leg 4 Compartment Fasciotomy Surgeon: Hay Slaughter M.D. -Peripheral vascular disease, status post EKOS followed by Fasciotomy: Vascular surgeon is managing -Right Lower Extremity Compartment Syndrome s/p Right Leg 4 Compartment Fasciotomy: Vacular surgeon is managing -Suspected Acute hypoxic respiratory failure, poa: treat with O2 -Gangrene of the 2nd right toe as above -Hyperkalemia: monitor closely -Diabetes Mellitus type 2: SSI -Hypertension: low salt diet Disposition: d/c once cleared by Vascular surgeon, rehab pending. History Interval history: Patient seen and examined. Follow up Ischemic right leg. Still with pains, She denies cp, sob, n/v, severe headaches Hospitalist Physical - Physical exam Narrative exam: Gen: WDWN, NAD, Awake, Alert, Orientated HEENT: NCAT, EOMI, PERRL, OP Clear Neck: supple, no adenopathy, no thyromegaly, no JVD CVS/Heart: RRR, normal S1S2, pulses present bilaterally Chest/Lungs: CTA B, Symmetrical chest expansion, good air entry bilaterally GI/Abdomen: soft, NTND, good bowel sounds, no guarding or rebound /Bladder: no suprapubic tenderness, no CVA or paraspinal tenderness Extermity/Skin: right foot is warm, 2nd toe gangrene MSK: FROM x 4 Neuro: CN 2-12 grossly intact, no new focal deficits Psych: calm - Constitutional Vitals: Temp Pulse Resp BP Pulse Ox 98.4 F 105 H 20 141/56 99 02/03/19 05:00 02/03/19 05:00 02/03/19 05:00 02/03/19 05:00 02/03/19 05:00 General appearance: Present: no acute distress Results - Labs CBC & Chem 7: 01/31/19 04:49 01/31/19 04:49 Labs: Laboratory Last Values WBC 11.0 K/mm3 (4.5-11.0) 01/29/19 09:27 RBC 4.39 M/mm3 (3.65-5.03) 01/29/19 09:27 Hgb 10.0 gm/dl (10.1-14.3) L 01/31/19 04:49 Hct 30.6 % (30.3-42.9) D 01/31/19 04:49 MCV 90 fl (79-97) 01/29/19 09:27 MCH 29 pg (28-32) 01/29/19 09:27 MCHC 32 % (30-34) 01/29/19 09:27 RDW 15.8 % (13.2-15.2) H 01/29/19 09:27 Plt Count 278 K/mm3 (140-440) 01/31/19 04:49 Lymph % (Auto) 9.3 % (13.4-35.0) L 01/29/19 09:27 [place] % (Auto) 6.1 % (0.0-7.3) 01/29/19 09:27 Eos % (Auto) 0.0 % (0.0-4.3) 01/29/19 09:27 Baso % (Auto) 0.3 % (0.0-1.8) 01/29/19 09:27 Lymph # 1.0 K/mm3 (1.2-5.4) L 01/29/19 09:27 [place] # 0.7 K/mm3 (0.0-0.8) 01/29/19 09:27 Eos # 0.0 K/mm3 (0.0-0.4) 01/29/19 09:27 Baso # 0.0 K/mm3 (0.0-0.1) 01/29/19 09:27 Seg Neutrophils % 84.3 % (40.0-70.0) H 01/29/19 09:27 Seg Neutrophils # 9.3 K/mm3 (1.8-7.7) H 01/29/19 09:27 PT 14.5 Sec. (12.2-14.9) 01/29/19 19:10 INR 1.06 (0.87-1.13) 01/29/19 19:10 APTT 35.4 Sec. (24.2-36.6) 01/29/19 19:10 Fibrinogen 165 mg/dl (211-480) L 01/29/19 09:27 Heparin Anti-Xa Level 0.34 U.I./ml (0.3-0.7) 01/31/19 09:59 Sodium 135 mmol/L (137-145) L 01/31/19 04:49 Potassium 4.7 mmol/L (3.6-5.0) 01/31/19 04:49 Chloride 98.9 mmol/L (98-107) 01/31/19 04:49 Carbon Dioxide 25 mmol/L (22-30) 01/31/19 04:49 Anion Gap 16 mmol/L 01/31/19 04:49 BUN 17 mg/dL (7-17) 01/31/19 04:49 Creatinine 0.8 mg/dL (0.7-1.2) 01/31/19 04:49 Estimated GFR > 60 ml/min 01/31/19 04:49 BUN/Creatinine Ratio 21 % 01/31/19 04:49 Glucose 237 mg/dL (65-100) H 01/31/19 04:49 POC Glucose 287 (70-105) H 02/03/19 12:09 Calcium 8.3 mg/dL (8.4-10.2) L 01/31/19 04:49
--- NOTE | 2019-02-03 16:31 | Progress Note ---
Assessment and Plan 1. s/p RLE revascularization 2. s/p RLE fasciotomy by Dr. Slaughter. 3. Right foot is warm and without pain. Will continue to monitor 4. 2nd toe dry gangrene stable continue with wound care. 5. Closure of medial incision. Anterolateral compart with wound vac. 6. Patient began walking with walker. Will continue to progress with PT. Subjective Date of service: 02/03/19 Principal diagnosis: Right lower extremity ischemia. Cold foot. Right 2nd toe gangrene Interval history: Patient is s/p day 5 of completion of RLE thrombolytic infusion, right AT angioplasty and SFA stent placement. s/p day 5 right leg fasciotomy by Dr. Slaughter. Patient transferred to surgical rehab unit. Had closure of medial incision. Would vac placed on lateral due to edema. Patient has been up using a walker. Objective - Exam Narrative Exam: Patient states she has been up walking a little bit using a walker. States her leg and foot feel a little "tight" and can't move her foot much. Still has some stinging sensations otherwise not much pain. - Constitutional Vitals: Vital Signs - 12hr 02/03/19 05:00 Temperature 98.4 F Pulse Rate 105 H Respiratory 20 Rate Blood Pressure 141/56 O2 Sat by Pulse 99 Oximetry General appearance: Present: no acute distress - EENT Eyes: PERRL ENT: hearing intact - Respiratory Respiratory effort: normal - Cardiovascular Rhythm: regular Extremity abnormal: other (RLE with wound vac on the lateral side. Right foot remains swollen with 1+ edema. Foot is warm. ) - Labs CBC & Chem 7: 01/31/19 04:49 01/31/19 04:49 Labs: Abnormal lab results 02/02/19 02/02/19 02/03/19 Range/Units 16:51 21:41 06:13 POC Glucose 333 H 335 H 247 H (70-105) 02/03/19 Range/Units 12:09 POC Glucose 287 H (70-105) Medications & Allergies - Medications Allergies/Adverse Reactions: Allergies No Known Allergies Allergy (Verified 01/28/19 21:26) Home Medications: Home Medications Medication Instructions Recorded Confirmed Last Taken Type HumuLIN 70-30 Vial 12 units SQ TID 01/28/19 02/03/19 Unknown History Valsartan [Diovan] 320 mg PO DAILY 01/28/19 02/03/19 Unknown History hydroCHLOROthiazide [HCTZ] 25 mg PO QDAY 01/28/19 01/28/19 Unknown History Active Medications: Generic Name Dose Route Start Last Admin Trade Name Freq PRN Reason Stop Dose Admin Acetaminophen 650 mg 01/29/19 00:12 Tylenol PO Q4H PRN Pain MILD(1-3)/Fever >100.5/MARTÍNEZ Acetaminophen/Hydrocodone Bitart 2 each 01/28/19 21:44 02/03/19 12:07 [place] 5/325 PO 2 each Q6H PRN Administration Pain, Moderate (4-6) Apixaban 10 mg 02/01/19 22:00 02/03/19 11:08 Eliquis PO 10 mg Q12HR RAFAEL Administration Protocol Clopidogrel Bisulfate 75 mg 02/02/19 14:00 02/03/19 11:08 Plavix PO 75 mg QDAY RAFAEL Administration Dextrose 50 ml 01/29/19 10:24 D50w (25gm) Syringe IV PRN PRN Hypoglycemia Hydralazine HCl 5 mg 01/29/19 00:22 02/01/19 18:20 Apresoline IV 5 mg Q6H PRN Administration Hypertension Hydromorphone HCl 1 mg 01/29/19 09:03 02/03/19 00:59 Dilaudid IV 1 mg Q4H PRN Administration Pain , Severe (7-10) Sodium Chloride 1,000 mls @ 75 mls/hr 02/01/19 10:00 02/01/19 09:15 Nacl 0.9% 1000 Ml IV 75 mls/hr DIRECT RAFAEL Administration Insulin Glargine 5 units 02/02/19 22:00 02/02/19 21:55 Lantus SUB-Q 5 units QHS RAFAEL Administration Insulin Human Lispro 0 unit 01/29/19 12:00 02/03/19 12:26 Humalog SUB-Q 6 unit Q6HR RAFAEL Administration Protocol Insulin Human Regular 5 units 01/29/19 18:22 01/29/19 19:10 Humulin R IV 5 units ONCE PRN Administration Hyperglycemia Labetalol HCl 10 mg 01/29/19 18:52 01/29/19 19:10 Normodyne IV 10 mg Q10MIN PRN Administration Hypertension Ondansetron HCl 4 mg 01/28/19 21:44 Zofran IV Q8H PRN Nausea And Vomiting
[2019-02-03] MEDS: APRESOLINE IV PRN (20:59)
[2019-02-03] MEDS: LANTUS SUB-Q SCH (21:04)
[2019-02-04] MEDS: HumaLOG SUB-Q SCH ×3 (00:16→13:21)
[2019-02-04 06:02] LABS: Hematocrit 24.8 % (30.3-42.9); Hemoglobin 8.5 gm/dl (10.1-14.3); Mean Corpuscular HGB Conc 34 % (30-34); Mean Corpuscular Volume 88 fl (79-97); Platelet Count 406 K/mm3 (140-440); Red Blood Count 2.81 M/mm3 (3.65-5.03); Red Cell Distribution Width 14.9 % (13.2-15.2)
[2019-02-04 06:25] LABS: BUN/Creatinine Ratio 23; Blood Urea Nitrogen 18 mg/dL (7-17); Calcium 8.2 mg/dL (8.4-10.2); Hemolysis Index 3
[2019-02-04] MEDS: PLAVIX PO SCH (08:59)
[2019-02-04] MEDS: ELIQUIS PO SCH (08:59)
[2019-02-04] MEDS: DILAUDID IV PRN ×2 (09:00→14:32)
[2019-02-04 09:09] VITALS: BP 156/63
[2019-02-04] MEDS: NORCO 5/325 PO PRN (11:26)
--- NOTE | 2019-02-04 12:20 | Progress Note ---
Assessment and Plan 1. s/p RLE revascularization 2. s/p RLE fasciotomy by Dr. Slaughter. 3. Right foot is warm and without pain. Will continue to monitor 4. 2nd toe dry gangrene stable continue with wound care. 5. Closure of medial incision. Anterolateral compart with wound vac. 6. Patient will continue to progress with PT. Subjective Date of service: 02/04/19 Principal diagnosis: Right lower extremity ischemia. Cold foot. Right 2nd toe gangrene Interval history: Patient is s/p day 6 of completion of RLE thrombolytic infusion, right AT angioplasty and SFA stent placement. s/p day 6 right leg fasciotomy by Dr. Slaughter. Patient transferred to surgical rehab unit. Had closure of medial incision. Wound vac is currently off with dressing change applied. Patient has been up to the bathroom using a walker. Objective - Exam Narrative Exam: Patient states she has been up walking a little bit using a walker. States her leg and foot feel a little "tight" and can't move her foot much. Has been having pain at the calf area after getting up and walking otherwise no new complaints. - Constitutional Vitals: Vital Signs - 12hr 02/04/19 02/04/19 02/04/19 00:30 04:57 08:00 Temperature 99.4 F 98.5 F 98.4 F Pulse Rate 103 H 94 H 89 Respiratory 20 20 18 Rate Blood Pressure 142/60 145/66 Blood Pressure 156/63 [Right] O2 Sat by Pulse 95 98 Oximetry 02/04/19 02/04/19 02/04/19 08:09 09:00 11:26 Temperature Pulse Rate 104 H Respiratory 20 18 Rate Blood Pressure Blood Pressure [Right] O2 Sat by Pulse 99 Oximetry General appearance: Present: no acute distress - EENT Eyes: PERRL ENT: hearing intact - Respiratory Respiratory effort: normal - Cardiovascular Rhythm: regular Extremity abnormal: other (Right foot remains warm with mild edema. Sensation to light touch. 2nd digit remains unchanged.) - Labs CBC & Chem 7: 02/04/19 05:38 02/04/19 05:38 Labs: Abnormal lab results 02/03/19 02/03/19 02/03/19 Range/Units 12:09 16:53 22:20 RBC (3.65-5.03) M/mm3 Hgb (10.1-14.3) gm/dl Hct (30.3-42.9) % Sodium (137-145) mmol/L BUN (7-17) mg/dL Glucose (65-100) mg/dL POC Glucose 287 H 250 H 263 H (70-105) Calcium (8.4-10.2) mg/dL 02/04/19 02/04/19 02/04/19 Range/Units 05:38 05:38 06:19 RBC 2.81 L (3.65-5.03) M/mm3 Hgb 8.5 L (10.1-14.3) gm/dl Hct 24.8 L (30.3-42.9) % Sodium 136 L (137-145) mmol/L BUN 18 H (7-17) mg/dL Glucose 241 H (65-100) mg/dL POC Glucose 228 H (70-105) Calcium 8.2 L (8.4-10.2) mg/dL Medications & Allergies - Medications Allergies/Adverse Reactions: Allergies No Known Allergies Allergy (Verified 01/28/19 21:26) Home Medications: Home Medications Medication Instructions Recorded Confirmed Last Taken Type HumuLIN 70-30 Vial 12 units SQ TID 01/28/19 02/03/19 Unknown History Valsartan [Diovan] 320 mg PO DAILY 01/28/19 02/03/19 Unknown History hydroCHLOROthiazide [HCTZ] 25 mg PO QDAY 01/28/19 01/28/19 Unknown History Active Medications: Generic Name Dose Route Start Last Admin Trade Name Freq PRN Reason Stop Dose Admin Acetaminophen 650 mg 01/29/19 00:12 Tylenol PO Q4H PRN Pain MILD(1-3)/Fever >100.5/MATRÍNEZ Acetaminophen/Hydrocodone Bitart 2 each 01/28/19 21:44 02/04/19 11:26 [place] 5/325 PO 2 each Q6H PRN Administration Pain, Moderate (4-6) Apixaban 10 mg 02/01/19 22:00 02/04/19 08:59 Eliquis PO 10 mg Q12HR RAFAEL Administration Protocol Clopidogrel Bisulfate 75 mg 02/02/19 14:00 02/04/19 08:59 Plavix PO 75 mg QDAY RAFAEL Administration Dextrose 50 ml 01/29/19 10:24 D50w (25gm) Syringe IV PRN PRN Hypoglycemia Hydralazine HCl 5 mg 01/29/19 00:22 02/03/19 20:59 Apresoline IV 5 mg Q6H PRN Administration Hypertension Hydromorphone HCl 1 mg 01/29/19 09:03 02/04/19 09:00 Dilaudid IV 1 mg Q4H PRN Administration Pain , Severe (7-10) Sodium Chloride 1,000 mls @ 75 mls/hr 02/01/19 10:00 02/01/19 09:15 Nacl 0.9% 1000 Ml IV 75 mls/hr DIRECT RAFAEL Administration Insulin Glargine 5 units 02/02/19 22:00 02/03/19 21:04 Lantus SUB-Q 5 units QHS RAFAEL Administration Insulin Human Lispro 0 unit 01/29/19 12:00 02/04/19 06:28 Humalog SUB-Q 4 unit Q6HR RAFAEL Administration Protocol Insulin Human Regular 5 units 01/29/19 18:22 01/29/19 19:10 Humulin R IV 5 units ONCE PRN Administration Hyperglycemia Labetalol HCl 10 mg 01/29/19 18:52 01/29/19 19:10 Normodyne IV 10 mg Q10MIN PRN Administration Hypertension Ondansetron HCl 4 mg 01/28/19 21:44 02/03/19 21:17 Zofran IV 4 mg Q8H PRN Administration Nausea And Vomiting
--- NOTE | 2019-02-04 13:53 | Discharge Summary ---
Providers - Providers Date of Admission: 01/28/19 23:38 Attending physician: YOLANDA OSPINA MD 01/28/19 21:12 Consult to Physician [CONS] Stat Comment: Consulting Provider: FLORENTINO GALLAGHER Physician Instructions: Reason For Exam: arterial occlusion 01/29/19 01:41 Consult to Physician [CONS] Routine Comment: Consulting Provider: JEAN MICHAUD Physician Instructions: Reason For Exam: gasngrene toe 02/01/19 10:54 Consult to Case Management [CONS] Routine Services Needed at Discharge: Wound Vac Home Health Services Notified:: COPY GIVEN TO CM 02/01/19 10:55 Physical Therapy Evaluation and Treat [CONS] Routine Comment: Reason For Exam: Eval and treat 02/01/19 10:56 Consult to Wound/ET Nurse [CONS] Routine Reason For Exam: right leg wound vac [facility] Reason for admission: compartment syndrome Condition: Stable Hospital course: Patient is a 58 yo woman with a history of hypertension, DM type 2 and PVD who came from Vascular Surgeon's office for thrombolysis of the right lower extremity Procedure 1: 01/29/19 Thrombolysis final recheck- 28346 Right anterior tibial artery DIRECTOR [employer]OR STANDARDS- 30257 Right SFA stent placement- [id number] Indication: Right foot ischemia, rest pain, 2nd toe gangrene Physician: Dru Procedure 2: 01/29/2019 Pre-operative Diagnosis: Right Lower Extremity Compartment Syndrome Post-operative Diagnosis: Same Procedure(s): 1. Right Leg 4 Compartment Fasciotomy Surgeon: Hay Moore M.D. -Peripheral vascular disease, status post EKOS followed by Fasciotomy: Vascular surgeon and IR evaluated patient and recommended patient can be discharged to rehab and continue with wound vac. They recommeded only ASA and plavix and no need for anticoagulation. This was verified also by case management -Right Lower Extremity Compartment Syndrome s/p Right Leg 4 Compartment Fasciotomy: Vacular surgeon is managing -Suspected Acute hypoxic respiratory failure, poa: treat with O2 -Gangrene of the 2nd right toe as above -Hyperkalemia: monitor closely -Diabetes Mellitus type 2: SSI -Hypertension: low salt diet Disposition: DC/[place]-[facility] Time spent for discharge: 35 mins Core Measure Documentation - Palliative Care Palliative Care/ Comfort Measures: Not Applicable - Core Measures Any of the following diagnoses?: none Exam - Physical Exam Narrative exam: Gen: WDWN, NAD, Awake, Alert, Orientated HEENT: NCAT, EOMI, PERRL, OP Clear Neck: supple, no adenopathy, no thyromegaly, no JVD CVS/Heart: RRR, normal S1S2, pulses present bilaterally Chest/Lungs: CTA B, Symmetrical chest expansion, good air entry bilaterally GI/Abdomen: soft, NTND, good bowel sounds, no guarding or rebound /Bladder: no suprapubic tenderness, no CVA or paraspinal tenderness Extermity/Skin: right foot is warm, wound vac in place, 2nd toe gangrene MSK: FROM x 4 Neuro: CN 2-12 grossly intact, no new focal deficits Psych: calm - Constitutional Vitals: Temp Pulse Resp BP Pulse Ox 98.4 F 104 H 18 156/63 99 02/04/19 08:00 02/04/19 08:09 02/04/19 11:26 02/04/19 08:00 02/04/19 08:09 Plan Activity: advance as tolerated, fall precautions Diet: diabetic Wound: per your surgeon's advice, per wound nurse instructions, drain care as instructed Special Instructions: record daily weights, record daily BP diary, record blood sugar diary, physical therapy, occupational therapy Follow up with: [facility] MD ABELARDO [Primary Care Provider] - 3-5 Days FLORENTINO GALLAGHER MD [Staff Physician] - 7 Days HAY MOORE MD [Staff Physician] - 7 Days Prescriptions: Insulin Glargine [Lantus VIAL] 5 units SUB-Q QHS #30 units Valsartan [Diovan] 160 mg PO QDAY #30 tablet hydroCHLOROthiazide [HCTZ] 25 mg PO QDAY #30 tablet Aspirin [Low Dose Aspirin EC] 81 mg PO DAILY #30 tablet. HYDROcodone/APAP 5-325 [[place] 5-325 mg TAB] 2 each PO Q6H PRN #14 tablet PRN Reason: Pain, Moderate (4-6) Clopidogrel [Plavix] 75 mg PO QDAY #30 tablet
== END 2019-02-04 17:00 | DRG 252 ==
LOC: ED 20:10 → CC1 23:38 → 3A 01-30 15:41 → 3B-SURG 02-01 12:29
PROVIDERS: ADMIT Internal Medicine; ATTEND Internal Medicine
PROC: B41F1ZZ Fluoroscopy of Right Lower Extremity Arteries using Low Osmolar Contrast (ICD-10-PCS; principal; 2019-01-28)
PROC: 04HP33Z Insertion of Infusion Device into Right Anterior Tibial Artery, Percutaneous Approach (ICD-10-PCS; 2019-01-28)
PROC: 3E05317 Introduction of Other Thrombolytic into Peripheral Artery, Percutaneous Approach (ICD-10-PCS; 2019-01-28)
PROC: 047K3DZ Dilation of Right Femoral Artery with Intraluminal Device, Percutaneous Approach (ICD-10-PCS; 2019-01-29)
PROC: 0KNS0ZZ Release Right Lower Leg Muscle, Open Approach (ICD-10-PCS; 2019-01-29)
PROC: 0KNS0ZZ Release Right Lower Leg Muscle, Open Approach (ICD-10-PCS; 2019-01-29)
PROC: 0KNS0ZZ Release Right Lower Leg Muscle, Open Approach (ICD-10-PCS; 2019-01-29)
PROC: 0KNS0ZZ Release Right Lower Leg Muscle, Open Approach (ICD-10-PCS; 2019-01-29)
PROC: 047P3ZZ Dilation of Right Anterior Tibial Artery, Percutaneous Approach (ICD-10-PCS; 2019-01-29)
PROC: 2W1CX6Z Compression of Right Lower Arm using Pressure Dressing (ICD-10-PCS; 2019-02-01)
DX: T82.856A Stenosis of peripheral vascular stent, initial encounter (principal); J96.01 Acute respiratory failure with hypoxia; I74.3 Embolism and thrombosis of arteries of the lower extremities; E11.52 Type 2 diabetes mellitus with diabetic peripheral angiopathy with gangrene; I96 Gangrene, not elsewhere classified; M79.A21 Nontraumatic compartment syndrome of right lower extremity; Z68.41 Body mass index [BMI] 40.0-44.9, adult; E87.5 Hyperkalemia; I10 Essential (primary) hypertension; X58.XXXA Exposure to other specified factors, initial encounter; E66.01 Morbid (severe) obesity due to excess calories; Y83.2 Surgical operation with anastomosis, bypass or graft as the cause of abnormal reaction of the patient, or of later complication, without mention of misadventure at the time of the procedure; Z79.899 Other long term (current) drug therapy; Z79.4 Long term (current) use of insulin; Y92.89 Other specified places as the place of occurrence of the external cause
CPT/HCPCS: 36415; 37211; 37214; 37226; 37228; 80048; 82962; 85014; 85018; 85025; 85027; 85049; 85384; 85520; 85610; 85730; 94760; 96374; 96375; 99285; G0378; C1725; C1757; C1760; C1769; C1876; C1887; C1894; J0360; J0690; J1170; J1644; J1815; J2250; J2270; J2405; J2704; J2997; J3010; J7030; J7040; Q9967

== ENCOUNTER 2019-02-13 13:32 | Inpatient (IN) | payer MEDICARE ==
[2019-02-13] MEDS ORDERED: NACL 0.9% 1000 ML 1,000 ML ONE (13:54)
[2019-02-13] MEDS ORDERED: NACL 0.9% 1000 ML 1,000 ML IV ONE (14:01)
--- NOTE | 2019-02-13 14:13 | Emergency Department Report ---
ED General Adult HPI - General Chief complaint: Hyperglycemia Stated complaint: HIGH BLOOD SUGAR/WEAKNESS Time Seen by Provider: 02/13/19 14:01 Source: patient Mode of arrival: Ambulatory Limitations: No Limitations - History of Present Illness Initial comments: This is a 58-year-old female who is unable to provide me any history. She seems to have very loose associations and is somewhat speaking coherently. She is not oriented to place and possibly not to person. She doesn't understand the context of why she is here. I am told by nursing staff that she came from they think a senior care. I do note that she is recently admitted to this facility. She was known to have a gangrenous so secondary to peripheral vascular disease. She's had a recent trauma lysis followed by 4 compartment fasciotomy of her right lower extremity. This was done and she was discharged from this facility second week of the current month. She is diabetic. I did not see that she was recently diagnosed with sepsis yet on initial review of the previous medical rec ords. In any case on the initial evaluation patient was found to be tachycardic pale altered. She is meeting she qSOFA criteria for empiric treatment for sepsis. Therefore a code sepsis was called and antibotics ordered. Her previous discharge summary: Hospitalization Reason for admission: compartment syndrome Condition: Stable Hospital course: Patient is a 58 yo woman with a history of hypertension, DM type 2 and PVD who came from Vascular Surgeon's office for thrombolysis of the right lower extremity Procedure 1: 01/29/19 Thrombolysis final recheck- 40203 Right anterior tibial artery MASTER WELDER- 98457 Right SFA stent placement- [id number] Indication: Right foot ischemia, rest pain, 2nd toe gangrene Physician: Dru Procedure 2: 01/29/2019 Pre-operative Diagnosis: Right Lower Extremity Compartment Syndrome Post-operative Diagnosis: Same Procedure(s): 1. Right Leg 4 Compartment Fasciotomy Surgeon: Hay Slaughter M.D. -: unknown Severity scale (0 -10): 0 - Related Data Home Medications Medication Instructions Recorded Confirmed Last Taken HumuLIN 70-30 Vial 12 units SQ TID 01/28/19 02/03/19 Unknown Previous Rx's Medication Instructions Recorded Last Taken Type Aspirin [Low Dose Aspirin EC] 81 mg PO DAILY #30 tablet. 02/04/19 Unknown Rx Clopidogrel [Plavix] 75 mg PO QDAY #30 tablet 02/04/19 Unknown Rx HYDROcodone/APAP 5-325 [[place] 2 each PO Q6H PRN #14 tablet 02/04/19 Unknown Rx 5-325 mg TAB] Insulin Glargine [Lantus VIAL] 5 units SUB-Q QHS #30 units 02/04/19 Unknown Rx Valsartan [Diovan] 160 mg PO QDAY #30 tablet 02/04/19 Unknown Rx hydroCHLOROthiazide [HCTZ] 25 mg PO QDAY #30 tablet 02/04/19 Unknown Rx Allergies Allergy/AdvReac Type Severity Reaction Status Date / Time No Known Allergies Allergy Verified 01/28/19 21:26 ED Review of Systems ROS: Stated complaint: HIGH BLOOD SUGAR/WEAKNESS Other details as noted in HPI Comment: Unobtainable due to pts medical conditions ED Past Medical Hx - Past Medical History Hx Hypertension: Yes Hx Heart Attack/AMI: No Hx Diabetes: Yes Hx Renal Disease: No - Surgical History Past Surgical History?: Yes Additional Surgical History: Vascular surgery - Social History Smoking Status: Never Smoker Substance Use Type: None - Medications Home Medications: Home Medications Medication Instructions Recorded Confirmed Last Taken Type HumuLIN 70-30 Vial 12 units SQ TID 01/28/19 02/03/19 Unknown History Aspirin [Low Dose Aspirin EC] 81 mg PO DAILY #30 tablet. 02/04/19 Unknown Rx Clopidogrel [Plavix] 75 mg PO QDAY #30 tablet 02/04/19 Unknown Rx HYDROcodone/APAP 5-325 [[place] 2 each PO Q6H PRN #14 tablet 02/04/19 Unknown Rx 5-325 mg TAB] Insulin Glargine [Lantus VIAL] 5 units SUB-Q QHS #30 units 02/04/19 Unknown Rx Valsartan [Diovan] 160 mg PO QDAY #30 tablet 02/04/19 Unknown Rx hydroCHLOROthiazide [HCTZ] 25 mg PO QDAY #30 tablet 02/04/19 Unknown Rx ED Physical Exam - General Limitations: Altered Mental Status General appearance: alert (reasonably alert) - Head Head exam: Present: atraumatic, normocephalic - Eye Eye exam: Present: normal appearance. Absent: scleral icterus - ENT ENT exam: Present: mucous membranes dry - Neck Neck exam: Absent: tenderness, meningismus - Respiratory Respiratory exam: Absent: normal lung sounds bilaterally, respiratory distress - Cardiovascular Cardiovascular Exam: Present: regular rate, normal rhythm. Absent: systolic murmur, diastolic murmur, rubs, gallop - GI/Abdominal GI/Abdominal exam: Present: soft, normal bowel sounds. Absent: distended, tenderness, guarding, rebound, rigid - Extremities Exam Extremities exam: Present: other (the patient has a healing medial surgical incision without signs of infection and with jumana in place. Distally there is a toe with dry gangrene to its base. There isn't much swelling of the calf and it is not tense or grossly cellulitic. There is a leg ulcer with medicated dressing.) - Back Exam Back exam: Present: other (unable to turn) - Neurological Exam Neurological exam: Present: altered, other (no gross asymmetry on neurological exam) - Psychiatric Psychiatric exam: Present: flat affect ED Course Vital Signs 02/13/19 02/13/19 02/13/19 13:55 14:52 15:10 Temperature 98.9 F Pulse Rate 120 H Pulse Rate [ 118 H 127 H Anterior Bilateral Throughout] Respiratory 16 Rate Respiratory 20 20 Rate [Anterior Bilateral Throughout] Blood Pressure 98/49 O2 Sat by Pulse 97 Oximetry - Reevaluation(s) Reevaluation #1: Discussed with Dr. Arroyo. Admit IMCU. Consult Dr. Slaughter, vascular. Dr. Arroyo is aware of the findings so far consistent with sepsis, rhabdo, acute renal injury. I don't think there is any gross evidence of compartment syndrome or limb ischemia. However I will order an arterial Doppler of the right leg. 02/13/19 15:05 Reevaluation #2: CT the head, arterial Doppler and lactic acid are yet pending. Further care per Dr. Arroyo. 02/13/19 15:23 ED Medical Decision Making - Lab Data Result diagrams: 02/13/19 14:08 02/13/19 14:08 Laboratory Results - last 24 hr 02/13/19 02/13/19 02/13/19 13:55 14:08 14:08 WBC 21.3 H RBC 3.00 L Hgb 8.5 L Hct 26.7 L MCV 89 MCH 28 MCHC 32 RDW 16.4 H Plt Count 528 H Seg Neutrophils % Principal Librarian PT INR APTT VBG pH 7.379 POC Glucose 389 H Magnesium Blood Type 02/13/19 02/13/19 02/13/19 14:15 14:15 14:15 WBC RBC Hgb Hct MCV MCH MCHC RDW Plt Count Seg Neutrophils % PT 15.6 H INR 1.17 H APTT 26.6 VBG pH POC Glucose Magnesium 1.60 L Blood Type B POSITIVE Laboratory Results - last 24 hr 02/13/19 02/13/19 02/13/19 13:55 14:08 14:08 WBC 21.3 H RBC 3.00 L Hgb 8.5 L Hct 26.7 L MCV 89 MCH 28 MCHC 32 RDW 16.4 H Plt Count 528 H Seg Neutrophils % Principal Librarian PT INR APTT VBG pH Sodium 129 L Potassium 5.4 H Chloride 91.8 L Carbon Dioxide 17 L Anion Gap 26 BUN 52 H Creatinine 2.5 H Estimated GFR 24 BUN/Creatinine Ratio 21 Glucose 402 H POC Glucose 389 H Calcium 8.4 Magnesium Total Bilirubin 1.50 H Direct Bilirubin 1.1 H Indirect Bilirubin 0.4 AST 61 H ALT 37 Alkaline Phosphatase 271 H Ammonia Total Creatine Kinase CK-MB (CK-2) CK-MB (CK-2) Rel Index Troponin T NT-Pro-B Natriuret Pep Total Protein 6.5 Albumin 2.3 L Albumin/Globulin Ratio 0.5 Blood Type 02/13/19 02/13/19 02/13/19 14:08 14:15 14:15 WBC RBC Hgb Hct MCV MCH MCHC RDW Plt Count Seg Neutrophils % PT 15.6 H INR 1.17 H APTT 26.6 VBG pH 7.379 Sodium Potassium Chloride Carbon Dioxide Anion Gap BUN Creatinine Estimated GFR BUN/Creatinine Ratio Glucose POC Glucose Calcium Magnesium 1.60 L Total Bilirubin Direct Bilirubin Indirect Bilirubin AST ALT Alkaline Phosphatase Ammonia Total Creatine Kinase CK-MB (CK-2) CK-MB (CK-2) Rel Index Troponin T NT-Pro-B Natriuret Pep 6167 H Total Protein Albumin Albumin/Globulin Ratio Blood Type 02/13/19 02/13/19 02/13/19 14:15 14:15 14:20 WBC RBC Hgb Hct MCV MCH MCHC RDW Plt Count Seg Neutrophils % PT INR APTT VBG pH Sodium Potassium Chloride Carbon Dioxide Anion Gap BUN Creatinine Estimated GFR BUN/Creatinine Ratio Glucose POC Glucose Calcium Magnesium Total Bilirubin Direct Bilirubin Indirect Bilirubin AST ALT Alkaline Phosphatase Ammonia 40.0 Total Creatine Kinase 1295 H CK-MB (CK-2) 3.6 CK-MB (CK-2) Rel Index 0.2 Troponin T 0.072 H NT-Pro-B Natriuret Pep Total Protein Albumin Albumin/Globulin Ratio Blood Type B POSITIVE Laboratory Results - last 24 hr 02/13/19 02/13/19 02/13/19 13:55 14:08 14:08 WBC 21.3 H RBC 3.00 L Hgb 8.5 L Hct 26.7 L MCV 89 MCH 28 MCHC 32 RDW 16.4 H Plt Count 528 H Seg Neutrophils % Principal Librarian PT INR APTT VBG pH Sodium 129 L Potassium 5.4 H Chloride 91.8 L Carbon Dioxide 17 L Anion Gap 26 BUN 52 H Creatinine 2.5 H Estimated GFR 24 BUN/Creatinine Ratio 21 Glucose 402 H POC Glucose 389 H Calcium 8.4 Magnesium Total Bilirubin 1.50 H Direct Bilirubin 1.1 H Indirect Bilirubin 0.4 AST 61 H ALT 37 Alkaline Phosphatase 271 H Ammonia Total Creatine Kinase CK-MB (CK-2) CK-MB (CK-2) Rel Index Troponin T NT-Pro-B Natriuret Pep Total Protein 6.5 Albumin 2.3 L Albumin/Globulin Ratio 0.5 Triglycerides Cholesterol LDL Cholesterol Direct HDL Cholesterol Cholesterol/HDL Ratio Blood Type Antibody Screen 02/13/19 02/13/19 02/13/19 14:08 14:15 14:15 WBC RBC Hgb Hct MCV MCH MCHC RDW Plt Count Seg Neutrophils % PT 15.6 H INR 1.17 H APTT 26.6 VBG pH 7.379 Sodium Potassium Chloride Carbon Dioxide Anion Gap BUN Creatinine Estimated GFR BUN/Creatinine Ratio Glucose POC Glucose Calcium Magnesium 1.60 L Total Bilirubin Direct Bilirubin Indirect Bilirubin AST ALT Alkaline Phosphatase Ammonia Total Creatine Kinase CK-MB (CK-2) CK-MB (CK-2) Rel Index Troponin T NT-Pro-B Natriuret Pep 6167 H Total Protein Albumin Albumin/Globulin Ratio Triglycerides Cholesterol LDL Cholesterol Direct HDL Cholesterol Cholesterol/HDL Ratio Blood Type Antibody Screen 02/13/19 02/13/19 02/13/19 14:15 14:15 14:20 WBC RBC Hgb Hct MCV MCH MCHC RDW Plt Count Seg Neutrophils % PT INR APTT VBG pH Sodium Potassium Chloride Carbon Dioxide Anion Gap BUN Creatinine Estimated GFR BUN/Creatinine Ratio Glucose POC Glucose Calcium Magnesium Total Bilirubin Direct Bilirubin Indirect Bilirubin AST ALT Alkaline Phosphatase Ammonia 40.0 Total Creatine Kinase 1295 H CK-MB (CK-2) 3.6 CK-MB (CK-2) Rel Index 0.2 Troponin T 0.072 H NT-Pro-B Natriuret Pep Total Protein Albumin Albumin/Globulin Ratio Triglycerides 329 H Cholesterol 159 LDL Cholesterol Direct 36 L HDL Cholesterol 17 L Cholesterol/HDL Ratio 9.35 Blood Type B POSITIVE Antibody Screen Negative - EKG Data -: EKG Interpreted by Me EKG shows normal: sinus rhythm Rate: tachycardia - EKG Data Interpretation: nonspecific ST-T wave jojo - Radiology Data interpreted by me: Chest x-ray shows cardiomegaly Critical Care Time: Yes Critical care time in (mins) excluding proc time.: 60 Critical care attestation.: If time is entered above; I have spent that time in minutes in the direct care of this critically ill patient, excluding procedure time. ED Disposition Clinical Impression: Acute renal injury, Volume depletion, Hyperkalemia, Metabolic acidosis, increased anion gap, Hypomagnesemia, Encephalopathy acute, Hepatic dysfunction Sepsis Qualifiers: Sepsis type: sepsis due to unspecified organism Qualified Code(s): A41.9 - Sepsis, unspecified organism Hyperglycemia due to type 2 diabetes mellitus Qualifiers: Diabetes mellitus terminal operator insulin use: unspecified terminal operator insulin use status Qualified Code(s): E11.65 - Type 2 diabetes mellitus with hyperglycemia Cardiomyopathy Qualifiers: Cardiomyopathy type: unspecified Qualified Code(s): I42.9 - Cardiomyopathy, u nspecified Rhabdomyolysis Qualifiers: Rhabdomyolysis type: non-traumatic Qualified Code(s): M62.82 - Rhabdomyolysis Anemia Qualifiers: Anemia type: unspecified type Qualified Code(s): D64.9 - Anemia, unspecified Disposition: 09 OP ADMIT IP TO THIS HOSP Is pt being admited?: Yes Does the pt Need Aspirin: Yes Condition: Stable Instructions: Diabetes Mellitus Type 2 in Adults (ED) Referrals: PRIMARY CARE, [Primary Care Provider] - 3-5 Days Time of Disposition: 15:23
[2019-02-13] MEDS ORDERED: PROVENTIL IH ONE (14:18)
[2019-02-13] MEDS ORDERED: VANCOMYCIN 2,000 MG in NACL 0.9% 500 ML 500 ML IV ONE (14:30)
[2019-02-13 14:33] LABS: Hematocrit 26.7 % (30.3-42.9); Hemoglobin 8.5 gm/dl (10.1-14.3); Mean Corpuscular HGB Conc 32 % (30-34); Mean Corpuscular Volume 89 fl (79-97); Platelet Count 528 K/mm3 (140-440); Red Cell Distribution Width 16.4 % (13.2-15.2)
[2019-02-13 14:44] LABS: INR 1.17 (0.87-1.13); Partial Thromboplastin Time 26.6 Sec. (24.2-36.6)
[2019-02-13 14:55] LABS: Creatine Kinase MB 3.6 ng/mL (0.0-4.0)
[2019-02-13 14:57] LABS: Alanine Aminotransferase 37 units/L (7-56); Albumin 2.3 g/dL (3.9-5); BUN/Creatinine Ratio 21; Bilirubin,Direct 1.1 mg/dL (0-0.2); Blood Urea Nitrogen 52 mg/dL (7-17); Calcium 8.4 mg/dL (8.4-10.2); Hemolysis Index 0
[2019-02-13] MEDS ORDERED: HumuLIN R IV ONE (14:59)
[2019-02-13] MEDS ORDERED: VANCOMYCIN PHARMACY TO DOSE IV SCH ×2 (15:00→19:00)
[2019-02-13 15:08] LABS: Chol/HDL Ratio 9.35 %
[2019-02-13] MEDS ORDERED: MAGNESIUM SULFATE 2GM/50ML 2 GM/50 ML BAG IV ONE (15:19)
--- NOTE | 2019-02-13 15:21 | XRay Report ---
PROCEDURES: XR CHEST 1V AP TECHNIQUE: AP portable view of the chest. HISTORY: hypertension COMPARISON: None FINDINGS: Lines, tubes, and devices: N/A Lungs and pleura: Trachea is normal in position. Lungs are clear of infiltrate, pleural effusion, vas cular congestion, or pneumothorax. Cardiomediastinal silhouette: Cardiac is prominent in view of the AP projection Other: Bony structures are intact. IMPRESSION: No acute cardiopulmonary process seen. This document is electronically signed by Allyssa Chavez MD., February 13 2019 03:18:59 PM ET
[2019-02-13] MEDS ORDERED: BABY ASPIRIN PO ONE (15:23)
--- NOTE | 2019-02-13 15:47 | Cat Scan Report ---
PROCEDURE: CT HEAD/BRAIN WO CON TECHNIQUE: CT examination of the head without IV contrast HISTORY: AMS COMPARISONS: None FINDINGS: No acute air-fluid level visualized in the included air-filled sinuses. Bone windows demonstrate no acute fracture. The brain is without mass, mass effect, hemorrhage, or acute infarct. There is no extra-axial intracranial bleed, brain bleed, or midline shift. The ventricles and sulci are age-appropriate. IMPRESSION: No acute CVA, intracranial bleed, or brain mass This document is electronically signed by Matthew Ward MD., February 13 2019 03:45:12 PM ET
[2019-02-13 16:23] LABS: Band Neutrophils # (Manual) 1.1 K/mm3; Basophils % (Manual) 0 % (0.0-1.8); Eosinophils % (Manual) 0 % (0.0-4.3); Hypochromasia Rare; Target Cells Rare; Total Cells Counted 100
[2019-02-13 16:24] LABS: Large Platelets Few; Platelet Estimate Consistent w Auto
[2019-02-13] MEDS ORDERED: ZOFRAN IV PRN (18:03)
[2019-02-13] MEDS ORDERED: SODIUM CHLORIDE FLUSH SYRINGE 10 ML IV PRN (18:03)
[2019-02-13] MEDS ORDERED: TYLENOL PO PRN (18:03)
--- NOTE | 2019-02-13 18:06 | History and Physical Report ---
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 Right Leg 4 Compartment Fasciotomy Surgeon: Hay Slaughter M.D. Now confused .Family at bedside.No fever or chills.High Blood Glucose levels in ER .No SOB .No chest pain. Past Medical History Hypertension Heart Attack/AMI Diabetes Renal Disease Surgical History Past Surgical History?: Yes Additional Surgical History: Vascular surgery Social History Smoking Status: Never Smoker Substance Use Type: None Medications Home Medications: Home Medications Medication Instructions Recorded Confirmed Last Taken Type HumuLIN 70-30 Vial 12 units SQ TID 01/28/19 02/03/19 Unknown History Aspirin [Low Dose Aspirin EC] 81 mg PO DAILY #30 tablet. 02/04/19 Unknown Rx Clopidogrel [Plavix] 75 mg PO QDAY #30 tablet 02/04/19 Unknown Rx HYDROcodone/APAP 5-325 [[place] 2 each PO Q6H PRN #14 tablet 02/04/19 Unknown Rx 5-325 mg TAB] Insulin Glargine [Lantus VIAL] 5 units SUB-Q QHS #30 units 02/04/19 Unknown Rx Valsartan [Diovan] 160 mg PO QDAY #30 tablet 02/04/19 Unknown Rx hydroCHLOROthiazide [HCTZ] 25 mg PO QDAY #30 tablet 02/04/19 Unknown Rx Review of Systems ROS: Stated complaint: HIGH BLOOD SUGAR/WEAKNESS Other details as noted in HPI Comment: Unobtainable due to pts medical conditions Medications and Allergies Allergies Allergy/AdvReac Type Severity Reaction Status Date / Time No Known Allergies Allergy Verified 01/28/19 21:26 Home Medications Medication Instructions Recorded Confirmed Last Taken Type HumuLIN 70-30 Vial 12 units SQ TID 01/28/19 02/13/19 Unknown History Aspirin [Low Dose Aspirin EC] 81 mg PO DAILY #30 tablet. 02/04/19 02/13/19 Unknown Rx Clopidogrel [Plavix] 75 mg PO QDAY #30 tablet 02/04/19 02/13/19 Unknown Rx HYDROcodone/APAP 5-325 [[place] 2 each PO Q6H PRN #14 tablet 02/04/19 02/13/19 Unknown Rx 5-325 mg TAB] Insulin Glargine [Lantus VIAL] 5 units SUB-Q QHS #30 units 02/04/19 Unknown Rx Valsartan [Diovan] 160 mg PO QDAY #30 tablet 02/04/19 02/13/19 Unknown Rx hydroCHLOROthiazide [HCTZ] 25 mg PO QDAY #30 tablet 02/04/19 02/13/19 Unknown Rx Exam - Constitutional Vitals: Temp Pulse Resp BP Pulse Ox 98.9 F 114 H 16 104/54 96 02/13/19 13:55 02/13/19 16:07 02/13/19 16:07 02/13/19 16:07 02/13/19 16:07 General appearance: Present: no acute distress, well-nourished - EENT Eyes: Present: PERRL ENT: hearing intact, clear oral mucosa - Neck Neck: Present: supple, normal ROM - Respiratory Respiratory effort: normal Respiratory: bilateral: CTA - Cardiovascular Heart rate: 78 Rhythm: regular Heart Sounds: Present: S1 & S2. Absent: rub, click - Extremities Extremities: pulses symmetrical, No edema, abnormal Extremity abnormal: black, pulses diminished, other (the patient has a healing medial surgical incision without signs of infection and with jumana in place. Distally there is a toe with dry gangrene to its base. There isn't much swelling of the calf and it is not tense or grossly cellulitic. There is a leg ulcer with medicated dressing.)) Peripheral Pulses: within normal limits - Abdominal General gastrointestinal: Present: soft, non-tender, non-distended, normal bowel sounds Female genitourinary: Present: normal - Integumentary Integumentary: Present: clear, warm, dry - Musculoskeletal Musculoskeletal: gait normal, strength equal bilaterally - Psychiatric Psychiatric: appropriate mood/affect, intact judgment & insight - Neurologic Neurologic: CNII-XII intact, moves all extremities Results - Labs CBC & Chem 7: 02/13/19 14:08 02/13/19 14:08 Labs: Laboratory Last Values WBC 21.3 K/mm3 (4.5-11.0) H 02/13/19 14:08 RBC 3.00 M/mm3 (3.65-5.03) L 02/13/19 14:08 Hgb 8.5 gm/dl (10.1-14.3) L 02/13/19 14:08 Hct 26.7 % (30.3-42.9) L 02/13/19 14:08 MCV 89 fl (79-97) 02/13/19 14:08 MCH 28 pg (28-32) 02/13/19 14:08 MCHC 32 % (30-34) 02/13/19 14:08 RDW 16.4 % (13.2-15.2) H 02/13/19 14:08 Plt Count 528 K/mm3 (140-440) H 02/13/19 14:08 Add Manual Diff Complete 02/13/19 14:08 Total Counted 100 02/13/19 14:08 Seg Neutrophils % Mig Tig Welder 02/13/19 14:08 Seg Neuts % (Manual) 89.0 % (40.0-70.0) H 02/13/19 14:08 Band Neutrophils % 5.0 % 02/13/19 14:08 Lymphocytes % (Manual) 4.0 % (13.4-35.0) L 02/13/19 14:08 Reactive Lymphs % (Man) 0 % 02/13/19 14:08 Monocytes % (Manual) 1.0 % (0.0-7.3) 02/13/19 14:08 Eosinophils % (Manual) 0 % (0.0-4.3) 02/13/19 14:08 Basophils % (Manual) 0 % (0.0-1.8) 02/13/19 14:08 Metamyelocytes % 1.0 % 02/13/19 14:08 Myelocytes % 0 % 02/13/19 14:08 Promyelocytes % 0 % 02/13/19 14:08 Blast Cells % 0 % 02/13/19 14:08 Nucleated RBC % 2.0 % (0.0-0.9) H 02/13/19 14:08 Seg Neutrophils # Man 19.0 K/mm3 (1.8-7.7) H 02/13/19 14:08 Band Neutrophils # 1.1 K/mm3 02/13/19 14:08 Lymphocytes # (Manual) 0.9 K/mm3 (1.2-5.4) L 02/13/19 14:08 Abs React Lymphs (Man) 0.0 K/mm3 02/13/19 14:08 Monocytes # (Manual) 0.2 K/mm3 (0.0-0.8) 02/13/19 14:08 Eosinophils # (Manual) 0.0 K/mm3 (0.0-0.4) 02/13/19 14:08 Basophils # (Manual) 0.0 K/mm3 (0.0-0.1) 02/13/19 14:08 Metamyelocytes # 0.2 K/mm3 02/13/19 14:08 Myelocytes # 0.0 K/mm3 02/13/19 14:08 Promyelocytes # 0.0 K/mm3 02/13/19 14:08 Blast Cells # 0.0 K/mm3 02/13/19 14:08 WBC Morphology Not Reportable 02/13/19 14:08 Hypersegmented Neuts Not Reportable 02/13/19 14:08 Hyposegmented Neuts Not Reportable 02/13/19 14:08 Hypogranular Neuts Not Reportable 02/13/19 14:08 Smudge Cells Not Reportable 02/13/19 14:08 Toxic Granulation Not Reportable 02/13/19 14:08 Toxic Vacuolation Not Reportable 02/13/19 14:08 Dohle Bodies Not Reportable 02/13/19 14:08 Pelger-Huet Anomaly Not Reportable 02/13/19 14:08 Cisco Rods Not Reportable 02/13/19 14:08 Platelet Estimate Consistent w auto 02/13/19 14:08 Clumped Platelets Not Reportable 02/13/19 14:08 Plt Clumps, EDTA Not Reportable 02/13/19 14:08 Large Platelets Few 02/13/19 14:08 Giant Platelets Not Reportable 02/13/19 14:08 Platelet Satelliting Not Reportable 02/13/19 14:08 Plt Morphology Comment Not Reportable 02/13/19 14:08 RBC Morphology Not Reportable 02/13/19 14:08 Dimorphic RBCs Not Reportable 02/13/19 14:08 Polychromasia Rare 02/13/19 14:08 Hypochromasia Rare 02/13/19 14:08 Poikilocytosis Not Reportable 02/13/19 14:08 Anisocytosis Not Reportable 02/13/19 14:08 Microcytosis Not Reportable 02/13/19 14:08 Macrocytosis Not Reportable 02/13/19 14:08 Spherocytes Not Reportable 02/13/19 14:08 Pappenheimer Bodies Not Reportable 02/13/19 14:08 Sickle Cells Not Reportable 02/13/19 14:08 Target Cells Rare 02/13/19 14:08 Tear Drop Cells Not Reportable 02/13/19 14:08 Ovalocytes Not Reportable 02/13/19 14:08 Helmet Cells Not Reportable 02/13/19 14:08 [place] Bodies Not Reportable 02/13/19 14:08 [place] Rings Not Reportable 02/13/19 14:08 Vipul Cells Not Reportable 02/13/19 14:08 Bite Cells Not Reportable 02/13/19 14:08 Crenated Cell Not Reportable 02/13/19 14:08 Elliptocytes Not Reportable 02/13/19 14:08 Acanthocytes (Spur) Not Reportable 02/13/19 14:08 Rouleaux Not Reportable 02/13/19 14:08 Hemoglobin C Crystals Not Reportable 02/13/19 14:08 Schistocytes Not Reportable 02/13/19 14:08 Malaria parasites Not Reportable 02/13/19 14:08 Augusto Bodies Not Reportable 02/13/19 14:08 Hem Pathologist Commnt No 02/13/19 14:08 PT 15.6 Sec. (12.2-14.9) H 02/13/19 14:15 INR 1.17 (0.87-1.13) H 02/13/19 14:15 APTT 26.6 Sec. (24.2-36.6) 02/13/19 14:15 VBG pH 7.379 (7.320-7.420) 02/13/19 14:08 Sodium 129 mmol/L (137-145) L 02/13/19 14:08 Potassium 5.4 mmol/L (3.6-5.0) H 02/13/19 14:08 Chloride 91.8 mmol/L (98-107) L 02/13/19 14:08 Carbon Dioxide 17 mmol/L (22-30) L 02/13/19 14:08 Anion Gap 26 mmol/L 02/13/19 14:08 BUN 52 mg/dL (7-17) H 02/13/19 14:08 Creatinine 2.5 mg/dL (0.7-1.2) H 02/13/19 14:08 Estimated GFR 24 ml/min 02/13/19 14:08 BUN/Creatinine Ratio 21 % 02/13/19 14:08 Glucose 402 mg/dL (65-100) H 02/13/19 14:08 POC Glucose 293 (70-105) H 02/13/19 15:36 Ketones Quantitative Negative (Negative) 02/13/19 14:08 Calcium 8.4 mg/dL (8.4-10.2) 02/13/19 14:08 Magnesium 1.60 mg/dL (1.7-2.3) L 02/13/19 14:15 Total Bilirubin 1.50 mg/dL (0.1-1.2) H 02/13/19 14:08 Direct Bilirubin 1.1 mg/dL (0-0.2) H 02/13/19 14:08 Indirect Bilirubin 0.4 mg/dL 02/13/19 14:08 AST 61 units/L (5-40) H 02/13/19 14:08 ALT 37 units/L (7-56) 02/13/19 14:08 Alkaline Phosphatase 271 units/L (35-129) H 02/13/19 14:08 Ammonia 40.0 umol/L (25-60) 02/13/19 14:15 Total Creatine Kinase 1295 units/L (30-135) H 02/13/19 14:20 CK-MB (CK-2) 3.6 ng/mL (0.0-4.0) 02/13/19 14:20 CK-MB (CK-2) Rel Index 0.2 (0-4) 02/13/19 14:20 Troponin T 0.072 ng/mL (0.00-0.029) H 02/13/19 14:20 NT-Pro-B Natriuret Pep 6167 pg/mL (0-900) H 02/13/19 14:15 Total Protein 6.5 g/dL (6.3-8.2) 02/13/19 14:08 Albumin 2.3 g/dL (3.9-5) L 02/13/19 14:08 Albumin/Globulin Ratio 0.5 % 02/13/19 14:08 Triglycerides 329 mg/dL (2-149) H 02/13/19 14:20 Cholesterol 159 mg/dL (50-199) 02/13/19 14:20 LDL Cholesterol Direct 36 mg/dL (50-130) L 02/13/19 14:20 HDL Cholesterol 17 mg/dL (40-59) L 02/13/19 14:20 Cholesterol/HDL Ratio 9.35 % 02/13/19 14:20 Blood Type B POSITIVE 02/13/19 14:15 Antibody Screen Negative 02/13/19 14:15 Short CBC 02/13/19 Range/Units 14:08 WBC 21.3 H (4.5-11.0) K/mm3 Hgb 8.5 L (10.1-14.3) gm/dl Hct 26.7 L (30.3-42.9) % Plt Count 528 H (140-440) K/mm3 BMP 02/13/19 14:08 Sodium 129 L Potassium 5.4 H Chloride 91.8 L Carbon Dioxide 17 L BUN 52 H Creatinine 2.5 H Glucose 402 H Calcium 8.4 Cardiac Enzymes 02/13/19 Range/Units 14:20 Total Creatine Kinase 1295 H (30-135) units/L CK-MB (CK-2) 3.6 (0.0-4.0) ng/mL Troponin T 0.072 H (0.00-0.029) ng/mL Liver Function 02/13/19 Range/Units 14:08 Total Bilirubin 1.50 H (0.1-1.2) mg/dL Direct Bilirubin 1.1 H (0-0.2) mg/dL AST 61 H (5-40) units/L ALT 37 (7-56) units/L Alkaline Phosphatase 271 H (35-129) units/L Albumin 2.3 L (3.9-5) g/dL - Imaging and Cardiology EKG: report reviewed Assessment and Plan Advance Directives: Yes (Full code) VTE prophylaxis?: Chemical Plan of care discussed with patient/family: Yes - Patient Problems (1) Sepsis Current Visit: Yes Status: Acute Qualifiers: Sepsis type: sepsis due to unspecified organism Qualified Code(s): A41.9 - Sepsis, unspecified organism Plan to address problem: IV Unasyn and IV Vancomycin Probable source Rt calf wound (2) Hyperosmolar non-ketotic state in patient with type 2 diabetes mellitus Current Visit: Yes Status: Acute Plan to address problem: IV Fluids and High dose S/S coverage q4h Check A1c (3) Hypomagnesemia Current Visit: Yes Status: Acute Plan to address problem: IV Magnesium (4) Rhabdomyolysis Current Visit: Yes Status: Acute Qualifiers: Rhabdomyolysis type: non-traumatic Qualified Code(s): M62.82 - Rhabdomyolysis Plan to address problem: IV Fluids (5) Arterial occlusion, lower extremity Current Visit: No Status: Acute Plan to address problem: Vascular surgery consult requested (6) Dry gangrene Current Visit: No Status: Acute Plan to address problem: Vascular surgery consult requested (7) GERALDINE (acute kidney injury) Current Visit: Yes Status: Acute Plan to address problem: IV Fluids for now (8) DVT prophylaxis Current Visit: Yes Status: Acute Plan to address problem: On Heparin
[2019-02-13] MEDS ORDERED: HumaLOG SUB-Q ONE ×2 (18:20→21:05)
[2019-02-13] MEDS ORDERED: UNASYN/NS 3 GM/100 ML 3 GM/100 ML BAG IV SCH (19:00)
[2019-02-13] MEDS ORDERED: LOVENOX SUB-Q SCH (19:00)
[2019-02-13] MEDS ORDERED: HCTZ PO SCH (20:00)
[2019-02-13] MEDS ORDERED: INSULIN ISOPHANE HUMAN SQ SCH (20:00)
[2019-02-13] MEDS ORDERED: INSULIN REGULAR HUMAN SQ SCH (20:00)
[2019-02-13] MEDS ORDERED: DIOVAN ONE (21:07)
[2019-02-13] MEDS ORDERED: PLAVIX ONE (21:07)
[2019-02-13] MEDS: DIOVAN PO SCH (21:11)
[2019-02-13] MEDS: PLAVIX PO SCH (21:11)
[2019-02-13] MEDS ORDERED: LANTUS SUB-Q SCH ×2 (22:00)
--- NOTE | 2019-02-13 22:01 | Vascular Lab Report ---
PROCEDURE: VL ARTERIAL DUPLEX LE RT TECHNIQUE: Duplex Doppler ultrasound of either the RIGHT lower extremity arteries or arterial bypass grafts was performed with image documentation. CPT 99779-UG HISTORY: : s/p compartment, limb ischemia COMPARISONS: None . FINDINGS: Arterial waveforms: Monophasic waveforms are noted in all the right lower extremity arteries. . Segmental velocities: 133 cm/s in the distal iliac, 123 cm/s in the common femoral, 179 cm/s in the p roximal SFA, 123 cm/s in the deep femoral, 90 cm/s in the mid SFA, 62 cm/s in the distal SFA, 87 cm/s in the popliteal, 23 cm/s in the posterior tibial, 61 cm/s in the anterior tibial and 38 cm/s and th e dorsalis pedis. Stent is noted in the right mid to distal SFA. 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 This document is electronically signed by Jese Cerrato MD., February 13 2019 09:58:23 PM ET
[2019-02-13] MEDS: SODIUM CHLORIDE FLUSH SYRINGE 10 ML IV SCH (22:15)
[2019-02-13] MEDS: UNASYN/NS 3 GM/100 ML 3 GM/100 ML BAG IV SCH (23:00)
[2019-02-14] MEDS ORDERED: MAGNESIUM SULFATE 2GM/50ML 2 GM/50 ML BAG IV ONE (00:20)
[2019-02-14] MEDS: HEPARIN SUB-Q SCH ×2 (01:30→11:37)
[2019-02-14] MEDS ORDERED: HEPARIN ONE ×2 (01:31→10:55)
[2019-02-14 08:33] LABS: Hematocrit 25.3 % (30.3-42.9); Hemoglobin 8.3 gm/dl (10.1-14.3); Mean Corpuscular HGB Conc 33 % (30-34); Mean Corpuscular Volume 88 fl (79-97); Platelet Count 457 K/mm3 (140-440); Red Blood Count 2.89 M/mm3 (3.65-5.03); Red Cell Distribution Width 16.6 % (13.2-15.2)
[2019-02-14 08:56] LABS: Albumin 2.2 g/dL (3.9-5); Calcium 8.2 mg/dL (8.4-10.2)
[2019-02-14] MEDS ORDERED: LOVENOX SUB-Q SCH ×3 (10:00→22:00)
[2019-02-14 10:02] LABS: Band Neutrophils # (Manual) 0.2 K/mm3; Basophils % (Manual) 0 % (0.0-1.8); Eosinophils % (Manual) 0 % (0.0-4.3); Total Cells Counted 100
[2019-02-14 10:03] LABS: Hypochromasia Few; Target Cells Few
[2019-02-14 10:04] LABS: Large Platelets Few; Platelet Estimate Cons
[2019-02-14 10:05] LABS: Amphetamine Screen,Urine PRESUMPTIVE NEGATIVE; Benzodiazepines Screen,Urine PRESUMPTIVE NEGATIVE; Cannabinoid Screen,Urine PRESUMPTIVE NEGATIVE; Cocaine Screen,Urine PRESUMPTIVE NEGATIVE; Methadone Screen,Urine PRESUMPTIVE NEGATIVE; Opiate Screen,Urine PRESUMPTIVE NEGATIVE
[2019-02-14 10:06] LABS: Bacteria,Urine 4+ /HPF (Negative); Bilirubin,Urine NEG (Negative); Blood,Urine LG (Negative); Color,Urine Amber (Yellow); Mucus,Urine FEW /HPF
[2019-02-14 10:07] LABS: WBC,Urine > 182.0 /HPF (0.0-6.0)
[2019-02-14] MEDS ORDERED: BABY ASPIRIN ONE (10:54)
[2019-02-14] MEDS ORDERED: DIOVAN ONE (10:55)
[2019-02-14] MEDS ORDERED: PLAVIX ONE (10:55)
[2019-02-14] MEDS ORDERED: CALCIUM GLUCONATE 2,000 MG in NACL 0.9% 100 ML IV ONE (11:00)
[2019-02-14] MEDS: HALFPRIN EC PO SCH (11:30)
[2019-02-14] MEDS: PLAVIX PO SCH (11:30)
[2019-02-14] MEDS: DIOVAN PO SCH (11:30)
[2019-02-14] MEDS: SODIUM CHLORIDE FLUSH SYRINGE 10 ML IV SCH ×2 (11:31→22:32)
[2019-02-14] MEDS: UNASYN/NS 3 GM/100 ML 3 GM/100 ML BAG IV SCH (13:10)
[2019-02-14] MEDS ORDERED: D50W (25GM) Syringe IV PRN (14:03)
[2019-02-14] MEDS ORDERED: LANTUS SUB-Q SCH (14:06)
--- NOTE | 2019-02-14 14:16 | Progress Note ---
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 CT head; no acute findings CXR no acute findings Labs; UA > 182 WBC Diagnosis sepsis anemia, likely due to chronic disease UTI HHNK, Type 2 DM, A1c 9 severe Hyponatremia Hyperkalemia GERALDINE- likely ATN Hypomagesemia- resolved PAD hx of RLE ischemia, sp thrombolysis, revascularization and fascitomy Rhabdomylsis, non traumatic acute metabolic enncephalopathy Plan empiric abx, fup blood and urine cx, ID consult optimize insulins, IVF, renal US, nephrology consult Mg was repleted vascular consult pending DVT ppx- chemical History Interval history: she remains confused Review of systems Constitutional: No fevers, no malaise, no joint pains CVS: No chest pain, no orthopnea, no dyspnea on exertion, no pedal edema GI: No abdominal pain, no diarrhea, no vomiting, no constipation Respiratory: No shortness of breath, no wheezing, no coughing Hospitalist Physical - Physical exam Narrative exam: General.: Appears well, no distress, nontoxic HEENT: Moist mucous membranes, extraocular muscles intact, no lymphadenopathy Neck: supple Cardiac: S1-S2 heard Lungs: clear to auscultation bilaterally Abdomen: soft , nontender, nondistended, bowel sounds positive Extremities: ; R second toe dry gangrene R leg open wound- large, from fasciotomy Skin: no rash or lesions Neurologic: no gross focal deficits Psych: calm, and cooperative - Constitutional Vitals: Temp Pulse Resp BP Pulse Ox 98.9 F 104 H 48 H 148/74 97 02/13/19 13:55 02/14/19 13:00 02/14/19 12:00 02/14/19 13:00 02/14/19 13:00 General appearance: Present: no acute distress, well-nourished Results - Labs CBC & Chem 7: 02/14/19 08:15 02/14/19 08:15 Labs: Laboratory Last Values WBC 23.2 K/mm3 (4.5-11.0) H 02/14/19 08:15 RBC 2.89 M/mm3 (3.65-5.03) L 02/14/19 08:15 Hgb 8.3 gm/dl (10.1-14.3) L 02/14/19 08:15 Hct 25.3 % (30.3-42.9) L 02/14/19 08:15 MCV 88 fl (79-97) 02/14/19 08:15 MCH 29 pg (28-32) 02/14/19 08:15 MCHC 33 % (30-34) 02/14/19 08:15 RDW 16.6 % (13.2-15.2) H 02/14/19 08:15 Plt Count 457 K/mm3 (140-440) H 02/14/19 08:15 Add Manual Diff Complete 02/14/19 08:15 Total Counted 100 02/14/19 08:15 Seg Neutrophils % Livestock Agent 02/13/19 14:08 Seg Neuts % (Manual) 91.0 % (40.0-70.0) H 02/14/19 08:15 Band Neutrophils % 1.0 % 02/14/19 08:15 Lymphocytes % (Manual) 3.0 % (13.4-35.0) L 02/14/19 08:15 Reactive Lymphs % (Man) 0 % 02/14/19 08:15 Monocytes % (Manual) 5.0 % (0.0-7.3) 02/14/19 08:15 Eosinophils % (Manual) 0 % (0.0-4.3) 02/14/19 08:15 Basophils % (Manual) 0 % (0.0-1.8) 02/14/19 08:15 Metamyelocytes % 0 % 02/14/19 08:15 Myelocytes % 0 % 02/14/19 08:15 Promyelocytes % 0 % 02/14/19 08:15 Blast Cells % 0 % 02/14/19 08:15 Nucleated RBC % Not Reportable 02/14/19 08:15 Seg Neutrophils # Man 21.1 K/mm3 (1.8-7.7) H 02/14/19 08:15 Band Neutrophils # 0.2 K/mm3 02/14/19 08:15 Lymphocytes # (Manual) 0.7 K/mm3 (1.2-5.4) L 02/14/19 08:15 Abs React Lymphs (Man) 0.0 K/mm3 02/14/19 08:15 Monocytes # (Manual) 1.2 K/mm3 (0.0-0.8) H 02/14/19 08:15 Eosinophils # (Manual) 0.0 K/mm3 (0.0-0.4) 02/14/19 08:15 Basophils # (Manual) 0.0 K/mm3 (0.0-0.1) 02/14/19 08:15 Metamyelocytes # 0.0 K/mm3 02/14/19 08:15 Myelocytes # 0.0 K/mm3 02/14/19 08:15 Promyelocytes # 0.0 K/mm3 02/14/19 08:15 Blast Cells # 0.0 K/mm3 02/14/19 08:15 WBC Morphology Not Reportable 02/14/19 08:15 Hypersegmented Neuts Not Reportable 02/14/19 08:15 Hyposegmented Neuts Not Reportable 02/14/19 08:15 Hypogranular Neuts Not Reportable 02/14/19 08:15 Smudge Cells Not Reportable 02/14/19 08:15 Toxic Granulation Not Reportable 02/14/19 08:15 Toxic Vacuolation Not Reportable 02/14/19 08:15 Dohle Bodies Not Reportable 02/14/19 08:15 Pelger-Huet Anomaly Not Reportable 02/14/19 08:15 Cisco Rods Not Reportable 02/14/19 08:15 Platelet Estimate Cons 02/14/19 08:15 Clumped Platelets Not Reportable 02/14/19 08:15 Plt Clumps, EDTA Not Reportable 02/14/19 08:15 Large Platelets Few 02/14/19 08:15 Giant Platelets Not Reportable 02/14/19 08:15 Platelet Satelliting Not Reportable 02/14/19 08:15 Plt Morphology Comment Not Reportable 02/14/19 08:15 RBC Morphology Not Reportable 02/14/19 08:15 Dimorphic RBCs Not Reportable 02/14/19 08:15 Polychromasia Few 02/14/19 08:15 Hypochromasia Few 02/14/19 08:15 Poikilocytosis Not Reportable 02/14/19 08:15 Anisocytosis Not Reportable 02/14/19 08:15 Microcytosis Not Reportable 02/14/19 08:15 Macrocytosis Not Reportable 02/14/19 08:15 Spherocytes Not Reportable 02/14/19 08:15 Pappenheimer Bodies Not Reportable 02/14/19 08:15 Sickle Cells Not Reportable 02/14/19 08:15 Target Cells Few 02/14/19 08:15 Tear Drop Cells Not Reportable 02/14/19 08:15 Ovalocytes Not Reportable 02/14/19 08:15 Helmet Cells Not Reportable 02/14/19 08:15 [place] Bodies Not Reportable 02/14/19 08:15 [place] Rings Not Reportable 02/14/19 08:15 [place] Cells Not Reportable 02/14/19 08:15 Bite Cells Not Reportable 02/14/19 08:15 Crenated Cell Not Reportable 02/14/19 08:15 Elliptocytes Not Reportable 02/14/19 08:15 Acanthocytes (Spur) Not Reportable 02/14/19 08:15 Rouleaux Not Reportable 02/14/19 08:15 Hemoglobin C Crystals Not Reportable 02/14/19 08:15 Schistocytes Not Reportable 02/14/19 08:15 Malaria parasites Not Reportable 02/14/19 08:15 Augusto Bodies Not Reportable 02/14/19 08:15 Hem Pathologist Commnt No 02/14/19 08:15 PT 15.6 Sec. (12.2-14.9) H 02/13/19 14:15 INR 1.17 (0.87-1.13) H 02/13/19 14:15 APTT 26.6 Sec. (24.2-36.6) 02/13/19 14:15 VBG pH 7.379 (7.320-7.420) 02/13/19 14:08 Sodium 126 mmol/L (137-145) L 02/14/19 08:15 Potassium 5.3 mmol/L (3.6-5.0) H 02/14/19 08:15 Chloride 91.5 mmol/L (98-107) L 02/14/19 08:15 Carbon Dioxide 17 mmol/L (22-30) L 02/14/19 08:15 Anion Gap 23 mmol/L 02/14/19 08:15 BUN 65 mg/dL (7-17) H 02/14/19 08:15 Creatinine 2.4 mg/dL (0.7-1.2) H 02/14/19 08:15 Estimated GFR 25 ml/min 02/14/19 08:15 BUN/Creatinine Ratio 27 % 02/14/19 08:15 Glucose 418 mg/dL (65-100) H 02/14/19 08:15 POC Glucose 384 (70-105) H 02/14/19 09:30 Hemoglobin A1c 9.2 % (4-6) H 02/13/19 18:15 Ketones Quantitative Negative (Negative) 02/13/19 14:08 Calcium 8.2 mg/dL (8.4-10.2) L 02/14/19 08:15 Magnesium 2.90 mg/dL (1.7-2.3) H 02/14/19 07:45 Total Bilirubin 1.60 mg/dL (0.1-1.2) H 02/14/19 08:15 Direct Bilirubin 1.1 mg/dL (0-0.2) H 02/13/19 14:08 Indirect Bilirubin 0.4 mg/dL 02/13/19 14:08 AST 47 units/L (5-40) H 02/14/19 08:15 ALT 33 units/L (7-56) 02/14/19 08:15 Alkaline Phosphatase 218 units/L (35-129) H 02/14/19 08:15 Ammonia 40.0 umol/L (25-60) 02/13/19 14:15 Total Creatine Kinase 1295 units/L (30-135) H 02/13/19 14:20 CK-MB (CK-2) 3.6 ng/mL (0.0-4.0) 02/13/19 14:20 CK-MB (CK-2) Rel Index 0.2 (0-4) 02/13/19 14:20 Troponin T 0.072 ng/mL (0.00-0.029) H 02/13/19 14:20 NT-Pro-B Natriuret Pep 6167 pg/mL (0-900) H 02/13/19 14:15 Total Protein 6.2 g/dL (6.3-8.2) L 02/14/19 08:15 Albumin 2.2 g/dL (3.9-5) L 02/14/19 08:15 Albumin/Globulin Ratio 0.6 % 02/14/19 08:15 Triglycerides 329 mg/dL (2-149) H 02/13/19 14:20 Cholesterol 159 mg/dL (50-199) 02/13/19 14:20 LDL Cholesterol Direct 36 mg/dL (50-130) L 02/13/19 14:20 HDL Cholesterol 17 mg/dL (40-59) L 02/13/19 14:20 Cholesterol/HDL Ratio 9.35 % 02/13/19 14:20 Urine Color Steffi (Yellow) 02/14/19 09:07 Urine Turbidity Cloudy (Clear) 02/14/19 09:07 Urine pH 5.0 (5.0-7.0) 02/14/19 09:07 Ur Specific [place] 1.013 (1.003-1.030) 02/14/19 09:07 Urine Protein 100 mg/dl mg/dL (Negative) 02/14/19 09:07 Urine Glucose (UA) 50 mg/dL (Negative) 02/14/19 09:07 Urine Ketones Neg mg/dL (Negative) 02/14/19 09:07 Urine Blood Lg (Negative) 02/14/19 09:07 Urine Nitrite Neg (Negative) 02/14/19 09:07 Urine Bilirubin Neg (Negative) 02/14/19 09:07 Urine Urobilinogen 2.0 mg/dL (<2.0) 02/14/19 09:07 Ur Leukocyte Esterase Lg (Negative) 02/14/19 09:07 Urine WBC (Auto) > 182.0 /HPF (0.0-6.0) H 02/14/19 09:07 Urine RBC (Auto) 9.0 /HPF (0.0-6.0) 02/14/19 09:07 U Epithel Cells (Auto) 1.0 /HPF (0-13.0) 02/14/19 09:07 Urine Bacteria (Auto) 4+ /HPF (Negative) 02/14/19 09:07 Urine WBC Clumps 3+ /HPF 02/14/19 09:07 Ur Transition Epith Cell 1 /HPF 02/14/19 09:07 Urine Mucus Few /HPF 02/14/19 09:07 Urine Opiates Screen Presumptive negative 02/14/19 09:07 Urine Methadone Screen Presumptive negative 02/14/19 09:07 Ur Barbiturates Screen Presumptive negative 02/14/19 09:07 Ur Phencyclidine Scrn Presumptive negative 02/14/19 09:07 Ur Amphetamines Screen Presumptive negative 02/14/19 09:07 U Benzodiazepines Scrn Presumptive negative 02/14/19 09:07 Urine Cocaine Screen Presumptive negative 02/14/19 09:07 U Marijuana (THC) Screen Presumptive negative 02/14/19 09:07 Drugs of Abuse Note Disclamer 02/14/19 09:07 Blood Type B POSITIVE 02/13/19 14:15 Antibody Screen Negative 02/13/19 14:15
[2019-02-14] MEDS ORDERED: VANCOMYCIN/NS 1 GM/250 ML 1 GM/250 ML BAG IV SCH (16:00)
--- NOTE | 2019-02-14 17:07 | Consultation ---
History of Present Illness - Reason for Consult Consult date: 02/14/19 acute renal failure Requesting physician: DALI CASTELAN - History of Present Illness 58 year old Lady brought from the long term on account of alteration in mental status. Patient was lethargic and confused. She was recently admitted at [facility] because of right second toe gangrene and had Thrombolysis. Patient developed compartment syndrome and had fasciotomy to the right lower extremity. She was discharged to [facility] long term/rehabilitation. She states they couldn't give me my insulinlike they should". She had hyperglycemia and per boyfriend "she started shaking and was cold". Yesterday she became altered and was sent to the hospital and BUN and creatinine were found to be elevated at 52/2.5 mg/dL. Increased today to 65/2.4 mg/dl. Sodium was low and potassium high. Prior to discharge on January 31, BUN and creatinine were 17/0.8 mg/dL and potassium was normal. I'm consulted to assist in managing this. 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 denies: smoking, alcohol abuse, prescription drug abuse, IV drug use Medications and Allergies Allergies Allergy/AdvReac Type Severity Reaction Status Date / Time No Known Allergies Allergy Verified 01/28/19 21:26 Home Medications Medication Instructions Recorded Confirmed Last Taken Type HumuLIN 70-30 Vial 12 units SQ TID 01/28/19 02/13/19 Unknown History Aspirin [Low Dose Aspirin EC] 81 mg PO DAILY #30 tablet. 02/04/19 02/13/19 Unknown Rx Clopidogrel [Plavix] 75 mg PO QDAY #30 tablet 02/04/19 02/13/19 Unknown Rx HYDROcodone/APAP 5-325 [[place] 2 each PO Q6H PRN #14 tablet 02/04/19 02/13/19 Unknown Rx 5-325 mg TAB] Insulin Glargine [Lantus VIAL] 5 units SUB-Q QHS #30 units 02/04/19 Unknown Rx Valsartan [Diovan] 160 mg PO QDAY #30 tablet 02/04/19 02/13/19 Unknown Rx hydroCHLOROthiazide [HCTZ] 25 mg PO QDAY #30 tablet 02/04/19 02/13/19 Unknown Rx Active Meds: Active Medications Acetaminophen (Tylenol) 650 mg PO Q4H PRN PRN Reason: Pain MILD(1-3)/Fever >100.5/MARTÍNEZ Aspirin (Halfprin Ec) 81 mg PO DAILY [facility] Last Admin: 02/14/19 11:30 Dose: 81 mg Documented by: Clopidogrel Bisulfate (Plavix) 75 mg PO QDAY [facility] Last Admin: 02/14/19 11:30 Dose: 75 mg Documented by: Dextrose (D50w (25gm) Syringe) 50 ml IV PRN PRN PRN Reason: Hypoglycemia Hydromorphone HCl (Dilaudid) 0.5 mg IV Q3H PRN PRN Reason: Pain , Severe (7-10) Sodium Chloride (Nacl 0.9% 1000 Ml) 1,000 mls @ 100 mls/hr IV DIRECT [facility] Vancomycin HCl (Vancomycin/Ns 1 Gm/250 Ml) 1 gm in 250 mls @ 125 mls/hr IV Q24H [facility] Ampicillin Sodium/Sulbactam Sodium (Unasyn/Ns 3 Gm/100 Ml) 3 gm in 100 mls @ 100 mls/hr IV Q12H [facility]; Protocol Last Admin: 02/14/19 13:10 Dose: 100 mls/hr Documented by: Insulin Glargine (Lantus) 30 units SUB-Q QHS [facility] Insulin Human Lispro (Humalog) 5 unit SUB-Q AC [facility] Insulin Human Lispro (Humalog) 0 unit SUB-Q ACHS [facility]; Protocol Ondansetron HCl (Zofran) 4 mg IV Q8H PRN PRN Reason: Nausea And Vomiting Oxycodone/Acetaminophen (Percocet 5/325) 1 tab PO Q6H PRN PRN Reason: Pain, Moderate (4-6) Sodium Chloride (Sodium Chloride Flush Syringe 10 Ml) 10 ml IV BID [facility] Last Admin: 02/14/19 11:31 Dose: 10 ml Documented by: Sodium Chloride (Sodium Chloride Flush Syringe 10 Ml) 10 ml IV PRN PRN PRN Reason: LINE FLUSH Review of Systems ROS unobtainable: due to mental status (history obtained from patient and but she is unable to remember a lot of stuff so review of systems is limited other than noted in history of present illness) Exam - Vital Signs Vital signs: Vital Signs Temp Pulse Resp BP Pulse Ox 98.9 F 120 H 16 98/49 97 02/13/19 13:55 02/13/19 13:55 02/13/19 13:55 02/13/19 13:55 02/13/19 13:55 - Physical Exam Narrative exam: Obese middle-aged gentleman, comfortably lying in bed in no acute distress HEENT: NCAT, pink and dry oral mucous membrane Neck: Supple, no venous distention CVS: S1S2 RRR with no murmur, rub or gallop Chest: Clear to auscultation Abdomen: Obese, soft, nontender, no organomegaly, bowel sounds are present Extremities: Dressing right lower extremity clean and dry, Skin warm and dry Genitourinary deferred Neuro: Awake, alert no focal deficits Results - Lab Results 02/14/19 08:15 02/14/19 08:15 Most recent lab results Calcium 8.2 mg/dL (8.4-10.2) L 02/14/19 08:15 Magnesium 2.90 mg/dL (1.7-2.3) H 02/14/19 07:45 Assessment and Plan - Patient Problems (1) GERALDINE (acute kidney injury) Current Visit: Yes Status: Acute Plan to address problem: Acute kidney injury is prerenal Azotemia versus acute tubular necrosis secondary to hypotension and sepsis. Kidney function is worsening. Patient was hypotensive on presentation. Hyperglycemic with probable polyuria secondary to osmotic diuresis and consequent volume depletion. No recent exposure to ra diocontrast. Quantify proteinuria and check fractional excretion of sodium. Continue volume depletion but increase rate of intravenous fluids with close monitoring. Follow-up kidney ultrasound. Monitor electrolytes and renal function. (2) Hyperkalemia Current Visit: Yes Status: Acute Plan to address problem: Secondary to decreased distal delivery of sodium needed for exchange for potassium in the distal tubules. Continue volume expansion. Hyperkalemia was treated medically. Repeat potassium in the morning (3) Hyperosmolar non-ketotic state in patient with type 2 diabetes mellitus Current Visit: Yes Status: Acute Plan to address problem: Management of hyperglycemia per Primary attending (4) Hyponatremia Current Visit: Yes Status: Acute Plan to address problem: Hypovolemic and also factitious secondary to hyperglycemia. Treat hyperglycemia and volume replete patient and follow-up sodium. (5) Essential (primary) hypertension Current Visit: Yes Status: Acute Plan to address problem: She was hypotensive on presentation, blood pressure has improved. Monitor blood pressure closely (6) Peripheral vascular disease Current Visit: Yes Status: Acute Plan to address problem: Recent thrombolysis complicated by compartment syndrome status post fasciotomy. Follow-up creatinine phosphokinase (7) Anemia Current Visit: Yes Status: Acute Qualifiers: Anemia type: unspecified type Qualified Code(s): D64.9 - Anemia, unspecified Plan to address problem: Follow-up hemoglobin (8) Sepsis Current Visit: Yes Status: Acute Qualifiers: Sepsis type: sepsis due to unspecified organism Qualified Code(s): A41.9 - Sepsis, unspecified organism Plan to address problem: Possibly secondary to urinary tract infection. Check lactic acid. Follow-up blood and urine cultures. (9) Metabolic acidosis, increased anion gap Current Visit: Yes Status: Acute Plan to address problem: Ketones normal. Check lactic acid. Superimposed uremic acidosis
[2019-02-14] MEDS: HumaLOG SUB-Q SCH ×3 (17:30→22:30)
[2019-02-14] MEDS: LOVENOX SUB-Q SCH (22:32)
[2019-02-15] MEDS: UNASYN/NS 3 GM/100 ML 3 GM/100 ML BAG IV SCH ×2 (01:18→10:48)
--- NOTE | 2019-02-15 09:04 | Consultation ---
History of Present Illness - Reason for Consult Consult date: 02/15/19 PVD - History of Present Illness Patient with a history of peripheral vascular disease with previous catheterization of her right leg. She ultimately underwent fasciotomies on the right. She has second digital gangrene area on examination, there is swelling and warmth to the foot. Fasciotomies sites ideally has been closed. There is minimal cutaneous eschars along the margin. Her lateral fasciotomy is open. The muscle appears to be pink and viable. There are minimal superficial eschars along the inferior aspect of the muscle. 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 denies: smoking, alcohol abuse, prescription drug abuse, IV drug use Medications and Allergies Allergies Allergy/AdvReac Type Severity Reaction Status Date / Time No Known Allergies Allergy Verified 01/28/19 21:26 Home Medications Medication Instructions Recorded Confirmed Last Taken Type HumuLIN 70-30 Vial 12 units SQ TID 01/28/19 02/13/19 Unknown History Aspirin [Low Dose Aspirin EC] 81 mg PO DAILY #30 tablet. 02/04/19 02/13/19 Unknown Rx Clopidogrel [Plavix] 75 mg PO QDAY #30 tablet 02/04/19 02/13/19 Unknown Rx HYDROcodone/APAP 5-325 [[place] 2 each PO Q6H PRN #14 tablet 02/04/19 02/13/19 Unknown Rx 5-325 mg TAB] Insulin Glargine [Lantus VIAL] 5 units SUB-Q QHS #30 units 02/04/19 Unknown Rx Valsartan [Diovan] 160 mg PO QDAY #30 tablet 02/04/19 02/13/19 Unknown Rx hydroCHLOROthiazide [HCTZ] 25 mg PO QDAY #30 tablet 02/04/19 02/13/19 Unknown Rx Active Meds: Active Medications Acetaminophen (Tylenol) 650 mg PO Q4H PRN PRN Reason: Pain MILD(1-3)/Fever >100.5/MARTÍNEZ Aspirin (Halfprin Ec) 81 mg PO DAILY [facility] Last Admin: 02/14/19 11:30 Dose: 81 mg Documented by: Clopidogrel Bisulfate (Plavix) 75 mg PO QDAY [facility] Last Admin: 02/14/19 11:30 Dose: 75 mg Documented by: Dextrose (D50w (25gm) Syringe) 50 ml IV PRN PRN PRN Reason: Hypoglycemia Enoxaparin Sodium (Lovenox) 30 mg SUB-Q HS [facility] Last Admin: 02/14/19 22:32 Dose: 30 mg Documented by: Hydromorphone HCl (Dilaudid) 0.5 mg IV Q3H PRN PRN Reason: Pain , Severe (7-10) Sodium Chloride (Nacl 0.9% 1000 Ml) 1,000 mls @ 100 mls/hr IV DIRECT RAFAEL Vancomycin HCl (Vancomycin/Ns 1 Gm/250 Ml) 1 gm in 250 mls @ 125 mls/hr IV Q24H [facility] Last Admin: 02/14/19 18:30 Dose: 125 mls/hr Documented by: Ampicillin Sodium/Sulbactam Sodium (Unasyn/Ns 3 Gm/100 Ml) 3 gm in 100 mls @ 100 mls/hr IV Q12H [facility]; Protocol Last Admin: 02/15/19 01:18 Dose: 100 mls/hr Documented by: Insulin Glargine (Lantus) 30 units SUB-Q QHS [facility] Last Admin: 02/14/19 22:29 Dose: 30 units Documented by: Insulin Human Lispro (Humalog) 5 unit SUB-Q [facility] Last Admin: 02/14/19 17:30 Dose: 5 unit Documented by: Insulin Human Lispro (Humalog) 0 unit SUB-Q ACHS [facility]; Protocol Last Admin: 02/14/19 22:30 Dose: 10 unit Documented by: Ondansetron HCl (Zofran) 4 mg IV Q8H PRN PRN Reason: Nausea And Vomiting Oxycodone/Acetaminophen (Percocet 5/325) 1 tab PO Q6H PRN PRN Reason: Pain, Moderate (4-6) Sodium Chloride (Sodium Chloride Flush Syringe 10 Ml) 10 ml IV BID [facility] Last Admin: 02/14/19 22:32 Dose: 10 ml Documented by: Sodium Chloride (Sodium Chloride Flush Syringe 10 Ml) 10 ml IV PRN PRN PRN Reason: LINE FLUSH Review of Systems All systems: negative Exam - Constitutional Vitals: Temp Pulse Resp BP Pulse Ox 98.2 F 104 H 48 H 148/74 98 02/15/19 08:00 02/14/19 22:00 02/14/19 12:00 02/14/19 13:00 02/14/19 16:01 General appearance: Present: no acute distress - EENT Eyes: Present: EOM intact ENT: hearing intact - Neck Neck: Present: supple, normal ROM - Respiratory Respiratory effort: normal - Extremities Extremities: abnormal (per HPI) - Abdominal General gastrointestinal: Present: deferred - Rectal Rectal Exam: deferred - Psychiatric Psychiatric: appropriate mood/affect, cooperative Results - Labs CBC & Chem 7: 02/14/19 08:15 02/14/19 08:15 Labs: Abnormal lab results 02/14/19 02/14/19 02/14/19 Range/Units 07:45 08:15 09:07 Seg Neuts % (Manual) 91.0 H (40.0-70.0) % Lymphocytes % (Manual) 3.0 L (13.4-35.0) % Seg Neutrophils # Man 21.1 H (1.8-7.7) K/mm3 Lymphocytes # (Manual) 0.7 L (1.2-5.4) K/mm3 Monocytes # (Manual) 1.2 H (0.0-0.8) K/mm3 POC Glucose (70-105) Magnesium 2.90 H (1.7-2.3) mg/dL Total Creatine Kinase (30-135) units/L Urine WBC (Auto) > 182.0 H (0.0-6.0) /HPF 02/14/19 02/14/19 02/14/19 Range/Units 09:30 18:53 21:33 Seg Neuts % (Manual) (40.0-70.0) % Lymphocytes % (Manual) (13.4-35.0) % Seg Neutrophils # Man (1.8-7.7) K/mm3 Lymphocytes # (Manual) (1.2-5.4) K/mm3 Monocytes # (Manual) (0.0-0.8) K/mm3 POC Glucose 384 H 353 H 404 H (70-105) Magnesium (1.7-2.3) mg/dL Total Creatine Kinase (30-135) units/L Urine WBC (Auto) (0.0-6.0) /HPF 02/14/19 02/15/19 02/15/19 Range/Units 21:40 01:45 05:32 Seg Neuts % (Manual) (40.0-70.0) % Lymphocytes % (Manual) (13.4-35.0) % Seg Neutrophils # Man (1.8-7.7) K/mm3 Lymphocytes # (Manual) (1.2-5.4) K/mm3 Monocytes # (Manual) (0.0-0.8) K/mm3 POC Glucose 360 H 299 H (70-105) Magnesium 2.80 H (1.7-2.3) mg/dL Total Creatine Kinase 448 H (30-135) units/L Urine WBC (Auto) (0.0-6.0) /HPF 02/15/19 Range/Units 05:38 Seg Neuts % (Manual) (40.0-70.0) % Lymphocytes % (Manual) (13.4-35.0) % Seg Neutrophils # Man (1.8-7.7) K/mm3 Lymphocytes # (Manual) (1.2-5.4) K/mm3 Monocytes # (Manual) (0.0-0.8) K/mm3 POC Glucose 402 H (70-105) Magnesium (1.7-2.3) mg/dL Total Creatine Kinase (30-135) units/L Urine WBC (Auto) (0.0-6.0) /HPF Assessment and Plan Patient is status post revascularization procedure right lower extremity predominantly involving the SFA and pedal arteries. Arterial ultrasound was performed on admission which demonstrates the patient has some inflow disease as well with monophasic flow distally. The patient will need wound care during her stay here as well as scheduled as an outpatient. Additionly, the patient may need repeat arterial intervention. We'll discuss with Dr. Gonsales.
[2019-02-15] MEDS: HALFPRIN EC PO SCH (10:48)
[2019-02-15] MEDS: PLAVIX PO SCH (10:48)
[2019-02-15] MEDS: SODIUM CHLORIDE FLUSH SYRINGE 10 ML IV SCH ×2 (10:49→22:37)
[2019-02-15] MEDS: HumaLOG SUB-Q SCH ×6 (11:05→22:35)
[2019-02-15] MEDS ORDERED: HumaLOG SUB-Q ONE (11:40)
--- NOTE | 2019-02-15 11:44 | Progress Note ---
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 CT head; no acute findings CXR no acute findings Labs; UA > 182 WBC Diagnosis sepsis anemia, likely due to chronic disease UTI HHNK, Type 2 DM, A1c 9 severe Hyponatremia Hyperkalemia GERALDINE- likely ATN Hypomagesemia- resolved PAD hx of RLE ischemia, sp thrombolysis, revascularization and fascitomy Rhabdomylsis, non traumatic acute metabolic enncephalopathy Plan empiric abx, fup blood and urine cx, ID consult appreciated optimize insulins and BP meds, IVF, renal US, nephrology consult Mg was repleted vascular consult appreciated, fup arterial studies DVT ppx- chemical History Interval history: she is less confused Review of systems Constitutional: No fevers, no malaise, no joint pains CVS: No chest pain, no orthopnea, no dyspnea on exertion, no pedal edema GI: No abdominal pain, no diarrhea, no vomiting, no constipation Respiratory: No shortness of breath, no wheezing, no coughing Hospitalist Physical - Physical exam Narrative exam: General.: Appears well, no distress, nontoxic HEENT: Moist mucous membranes, extraocular muscles intact, no lymphadenopathy Neck: supple Cardiac: S1-S2 heard Lungs: clear to auscultation bilaterally Abdomen: soft , nontender, nondistended, bowel sounds positive Extremities: ; R second toe dry gangrene R leg open wound- large, from fasciotomy Skin: no rash or lesions Neurologic: no gross focal deficits, slightly confused Psych: calm, and cooperative - Constitutional Vitals: Temp Pulse Resp BP Pulse Ox 98.2 F 104 H 48 H 148/74 98 02/15/19 08:00 02/14/19 22:00 02/14/19 12:00 02/14/19 13:00 02/14/19 16:01 General appearance: Present: no acute distress Results - Labs CBC & Chem 7: 02/17/19 10:41 02/17/19 03:49 Labs: Laboratory Last Values WBC 23.2 K/mm3 (4.5-11.0) H 02/14/19 08:15 RBC 2.89 M/mm3 (3.65-5.03) L 02/14/19 08:15 Hgb 8.3 gm/dl (10.1-14.3) L 02/14/19 08:15 Hct 25.3 % (30.3-42.9) L 02/14/19 08:15 MCV 88 fl (79-97) 02/14/19 08:15 MCH 29 pg (28-32) 02/14/19 08:15 MCHC 33 % (30-34) 02/14/19 08:15 RDW 16.6 % (13.2-15.2) H 02/14/19 08:15 Plt Count 457 K/mm3 (140-440) H 02/14/19 08:15 Add Manual Diff Complete 02/14/19 08:15 Total Counted 100 02/14/19 08:15 Seg Neutrophils % Back Joiner 02/13/19 14:08 Seg Neuts % (Manual) 91.0 % (40.0-70.0) H 02/14/19 08:15 Band Neutrophils % 1.0 % 02/14/19 08:15 Lymphocytes % (Manual) 3.0 % (13.4-35.0) L 02/14/19 08:15 Reactive Lymphs % (Man) 0 % 02/14/19 08:15 Monocytes % (Manual) 5.0 % (0.0-7.3) 02/14/19 08:15 Eosinophils % (Manual) 0 % (0.0-4.3) 02/14/19 08:15 Basophils % (Manual) 0 % (0.0-1.8) 02/14/19 08:15 Metamyelocytes % 0 % 02/14/19 08:15 Myelocytes % 0 % 02/14/19 08:15 Promyelocytes % 0 % 02/14/19 08:15 Blast Cells % 0 % 02/14/19 08:15 Nucleated RBC % Not Reportable 02/14/19 08:15 Seg Neutrophils # Man 21.1 K/mm3 (1.8-7.7) H 02/14/19 08:15 Band Neutrophils # 0.2 K/mm3 02/14/19 08:15 Lymphocytes # (Manual) 0.7 K/mm3 (1.2-5.4) L 02/14/19 08:15 Abs React Lymphs (Man) 0.0 K/mm3 02/14/19 08:15 Monocytes # (Manual) 1.2 K/mm3 (0.0-0.8) H 02/14/19 08:15 Eosinophils # (Manual) 0.0 K/mm3 (0.0-0.4) 02/14/19 08:15 Basophils # (Manual) 0.0 K/mm3 (0.0-0.1) 02/14/19 08:15 Metamyelocytes # 0.0 K/mm3 02/14/19 08:15 Myelocytes # 0.0 K/mm3 02/14/19 08:15 Promyelocytes # 0.0 K/mm3 02/14/19 08:15 Blast Cells # 0.0 K/mm3 02/14/19 08:15 WBC Morphology Not Reportable 02/14/19 08:15 Hypersegmented Neuts Not Reportable 02/14/19 08:15 Hyposegmented Neuts Not Reportable 02/14/19 08:15 Hypogranular Neuts Not Reportable 02/14/19 08:15 Smudge Cells Not Reportable 02/14/19 08:15 Toxic Granulation Not Reportable 02/14/19 08:15 Toxic Vacuolation Not Reportable 02/14/19 08:15 Dohle Bodies Not Reportable 02/14/19 08:15 Pelger-Huet Anomaly Not Reportable 02/14/19 08:15 Cisco Rods Not Reportable 02/14/19 08:15 Platelet Estimate Cons 02/14/19 08:15 Clumped Platelets Not Reportable 02/14/19 08:15 Plt Clumps, EDTA Not Reportable 02/14/19 08:15 Large Platelets Few 02/14/19 08:15 Giant Platelets Not Reportable 02/14/19 08:15 Platelet Satelliting Not Reportable 02/14/19 08:15 Plt Morphology Comment Not Reportable 02/14/19 08:15 RBC Morphology Not Reportable 02/14/19 08:15 Dimorphic RBCs Not Reportable 02/14/19 08:15 Polychromasia Few 02/14/19 08:15 Hypochromasia Few 02/14/19 08:15 Poikilocytosis Not Reportable 02/14/19 08:15 Anisocytosis Not Reportable 02/14/19 08:15 Microcytosis Not Reportable 02/14/19 08:15 Macrocytosis Not Reportable 02/14/19 08:15 Spherocytes Not Reportable 02/14/19 08:15 Pappenheimer Bodies Not Reportable 02/14/19 08:15 Sickle Cells Not Reportable 02/14/19 08:15 Target Cells Few 02/14/19 08:15 Tear Drop Cells Not Reportable 02/14/19 08:15 Ovalocytes Not Reportable 02/14/19 08:15 Helmet Cells Not Reportable 02/14/19 08:15 [place] Bodies Not Reportable 02/14/19 08:15 Christiana Rings Not Reportable 02/14/19 08:15 [place] Cells Not Reportable 02/14/19 08:15 Bite Cells Not Reportable 02/14/19 08:15 Crenated Cell Not Reportable 02/14/19 08:15 Elliptocytes Not Reportable 02/14/19 08:15 Acanthocytes (Spur) Not Reportable 02/14/19 08:15 Rouleaux Not Reportable 02/14/19 08:15 Hemoglobin C Crystals Not Reportable 02/14/19 08:15 Schistocytes Not Reportable 02/14/19 08:15 Malaria parasites Not Reportable 02/14/19 08:15 Augusto Bodies Not Reportable 02/14/19 08:15 Hem Pathologist Commnt No 02/14/19 08:15 PT 15.6 Sec. (12.2-14.9) H 02/13/19 14:15 INR 1.17 (0.87-1.13) H 02/13/19 14:15 APTT 26.6 Sec. (24.2-36.6) 02/13/19 14:15 VBG pH 7.379 (7.320-7.420) 02/13/19 14:08 Sodium 126 mmol/L (137-145) L 02/14/19 08:15 Potassium 5.3 mmol/L (3.6-5.0) H 02/14/19 08:15 Chloride 91.5 mmol/L (98-107) L 02/14/19 08:15 Carbon Dioxide 17 mmol/L (22-30) L 02/14/19 08:15 Anion Gap 23 mmol/L 02/14/19 08:15 BUN 65 mg/dL (7-17) H 02/14/19 08:15 Creatinine 2.4 mg/dL (0.7-1.2) H 02/14/19 08:15 Estimated GFR 25 ml/min 02/14/19 08:15 BUN/Creatinine Ratio 27 % 02/14/19 08:15 Glucose 418 mg/dL (65-100) H 02/14/19 08:15 POC Glucose 393 (70-105) H 02/15/19 11:35 Hemoglobin A1c 9.2 % (4-6) H 02/13/19 18:15 Ketones Quantitative Negative (Negative) 02/13/19 14:08 Calcium 8.2 mg/dL (8.4-10.2) L 02/14/19 08:15 Phosphorus 3.10 mg/dL (2.5-4.5) 02/15/19 05:32 Magnesium 2.80 mg/dL (1.7-2.3) H 02/15/19 05:32 Total Bilirubin 1.60 mg/dL (0.1-1.2) H 02/14/19 08:15 Direct Bilirubin 1.1 mg/dL (0-0.2) H 02/13/19 14:08 Indirect Bilirubin 0.4 mg/dL 02/13/19 14:08 AST 47 units/L (5-40) H 02/14/19 08:15 ALT 33 units/L (7-56) 02/14/19 08:15 Alkaline Phosphatase 218 units/L (35-129) H 02/14/19 08:15 Ammonia 40.0 umol/L (25-60) 02/13/19 14:15 Total Creatine Kinase 448 units/L (30-135) H 02/15/19 05:32 CK-MB (CK-2) 3.6 ng/mL (0.0-4.0) 02/13/19 14:20 CK-MB (CK-2) Rel Index 0.2 (0-4) 02/13/19 14:20 Troponin T 0.072 ng/mL (0.00-0.029) H 02/13/19 14:20 NT-Pro-B Natriuret Pep 6167 pg/mL (0-900) H 02/13/19 14:15 Total Protein 6.2 g/dL (6.3-8.2) L 02/14/19 08:15 Albumin 2.2 g/dL (3.9-5) L 02/14/19 08:15 Albumin/Globulin Ratio 0.6 % 02/14/19 08:15 Triglycerides 329 mg/dL (2-149) H 02/13/19 14:20 Cholesterol 159 mg/dL (50-199) 02/13/19 14:20 LDL Cholesterol Direct 36 mg/dL (50-130) L 02/13/19 14:20 HDL Cholesterol 17 mg/dL (40-59) L 02/13/19 14:20 Cholesterol/HDL Ratio 9.35 % 02/13/19 14:20 Urine Color Steffi (Yellow) 02/14/19 09:07 Urine Turbidity Cloudy (Clear) 02/14/19 09:07 Urine pH 5.0 (5.0-7.0) 02/14/19 09:07 Ur Specific [place] 1.013 (1.003-1.030) 02/14/19 09:07 Urine Protein 100 mg/dl mg/dL (Negative) 02/14/19 09:07 Urine Glucose (UA) 50 mg/dL (Negative) 02/14/19 09:07 Urine Ketones Neg mg/dL (Negative) 02/14/19 09:07 Urine Blood Lg (Negative) 02/14/19 09:07 Urine Nitrite Neg (Negative) 02/14/19 09:07 Urine Bilirubin Neg (Negative) 02/14/19 09:07 Urine Urobilinogen 2.0 mg/dL (<2.0) 02/14/19 09:07 Ur Leukocyte Esterase Lg (Negative) 02/14/19 09:07 Urine WBC (Auto) > 182.0 /HPF (0.0-6.0) H 02/14/19 09:07 Urine RBC (Auto) 9.0 /HPF (0.0-6.0) 02/14/19 09:07 U Epithel Cells (Auto) 1.0 /HPF (0-13.0) 02/14/19 09:07 Urine Bacteria (Auto) 4+ /HPF (Negative) 02/14/19 09:07 Urine WBC Clumps 3+ /HPF 02/14/19 09:07 Ur Transition Epith Cell 1 /HPF 02/14/19 09:07 Urine Mucus Few /HPF 02/14/19 09:07 Vancomycin Trough 14.5 ug/mL (5.0-20.0) 02/15/19 05:32 Urine Opiates Screen Presumptive negative 02/14/19 09:07 Urine Methadone Screen Presumptive negative 02/14/19 09:07 Ur Barbiturates Screen Presumptive negative 02/14/19 09:07 Ur Phencyclidine Scrn Presumptive negative 02/14/19 09:07 Ur Amphetamines Screen Presumptive negative 02/14/19 09:07 U Benzodiazepines Scrn Presumptive negative 02/14/19 09:07 Urine Cocaine Screen Presumptive negative 02/14/19 09:07 U Marijuana (THC) Screen Presumptive negative 02/14/19 09:07 Drugs of Abuse Note Disclamer 02/14/19 09:07 Blood Type B POSITIVE 02/13/19 14:15 Antibody Screen Negative 02/13/19 14:15 Active Medications - Current Medications Current Medications: Generic Name Dose Route Start Last Admin Trade Name Freq PRN Reason Stop Dose Admin Acetaminophen 650 mg 02/13/19 18:03 Tylenol PO Q4H PRN Pain MILD(1-3)/Fever >100.5/MARTÍNEZ Aspirin 81 mg 02/14/19 10:00 02/15/19 10:48 Halfprin Ec PO 81 mg DAILY RAFAEL Administration Clopidogrel Bisulfate 75 mg 02/13/19 19:00 02/15/19 10:48 Plavix PO 75 mg QDAY RAFAEL Administration Dextrose 50 ml 02/14/19 14:03 D50w (25gm) Syringe IV PRN PRN Hypoglycemia Enoxaparin Sodium 30 mg 02/14/19 22:00 02/14/19 22:32 Lovenox SUB-Q 30 mg HS RAFAEL Administration Hydromorphone HCl 0.5 mg 02/13/19 18:03 Dilaudid IV Q3H PRN Pain , Severe (7-10) Sodium Chloride 1,000 mls @ 100 mls/hr 02/13/19 19:00 Nacl 0.9% 1000 Ml IV DIRECT RAFAEL Vancomycin HCl 1 gm in 250 mls @ 125 mls/hr 02/14/19 16:00 02/14/19 18:30 Vancomycin/Ns 1 Gm/250 Ml IV 125 mls/hr Q24H RAFAEL Administration Ampicillin Sodium/Sulbactam Sodium 3 gm in 100 mls @ 100 mls/hr 02/13/19 20:00 02/15/19 10:48 Unasyn/Ns 3 Gm/100 Ml IV 100 mls/hr Q12H RAFAEL Administration Protocol Insulin Glargine 45 units 02/15/19 11:43 Lantus SUB-Q QHS RAFAEL Insulin Human Lispro 0 unit 02/14/19 16:30 02/15/19 11:06 Humalog SUB-Q 3 unit ACHS RAFAEL Administration Protocol Insulin Human Lispro 15 unit 02/15/19 11:40 Humalog SUB-Q 02/15/19 11:41 ONCE ONE Ondansetron HCl 4 mg 02/13/19 18:03 Zofran IV Q8H PRN Nausea And Vomiting Oxycodone/Acetaminophen 1 tab 02/13/19 18:03 Percocet 5/325 PO Q6H PRN Pain, Moderate (4-6) Sodium Chloride 10 ml 02/13/19 22:00 02/15/19 10:49 Sodium Chloride Flush Syringe 10 Ml IV 10 ml BID RAFAEL Administration Sodium Chloride 10 ml 02/13/19 18:03 Sodium Chloride Flush Syringe 10 Ml IV PRN PRN LINE FLUSH
--- NOTE | 2019-02-15 13:30 | Consultation ---
History of Present Illness - Reason for Consult Consult date: 02/15/19 Sepsis Requesting physician: DALI CASTELAN - History of Present Illness The patient is a 58-year-old female with hypertension, diabetes mellitus type 2, peripheral vascular disease who was recently hospitalized from vascular surgery clinic due to right second toe gangrene. She underwent thrombolysis of the right lower extremity and underwent a stent placement. She developed compartment syndrome requiring fasciotomy on 01/29/2019 and then was discharged to a rehabilitation facility. Now, readmitted on 02/13/2019 after she was noted to have severe chills at the snf. In the ER, she was found to be septic with leukocytosis and elevated creatinine. She was empirically started on Unasyn and vancomycin. Blood cultures grew gram-negative rods, infectious diseases was consulted. She denies any pain anywhere. She reports having some nausea but no significant vomiting or diarrhea. Denies any abdominal pain. Denies any urinary burning. Her wounds have been healing well. Review of Systems: General: + for fevers,chills and rigors HEENT: no new visual disturbance Respiratory: No cough, sputum, hemoptysis or shortness of breath Cardiovascular: No chest pain, syncope Gastrointestinal: No nausea, vomiting or diarrhea Genitourinary: No dysuria or hematuria Musculoskeletal: No new or worsening neck pain or back pain Neurologic: No headaches, seizures Hematologic: No easy bruising or bleeding Endocrine: No night sweats or acute weight loss Skin: negative for rash, jaundice Psychiatric: No suicidal or homicidal ideation Past History Past Medical History: diabetes, hypertension, PVD Past Surgical History: Other (Thrombolysis, Fasciotomy for compartment syndrome) Social history: lives with family (was living with boyfriend but now at snf/subacute rehabilitation), 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 denies: smoking, alcohol abuse, prescription drug abuse, IV drug use Medications and Allergies Allergies Allergy/AdvReac Type Severity Reaction Status Date / Time No Known Allergies Allergy Verified 01/28/19 21:26 Home Medications Medication Instructions Recorded Confirmed Last Taken Type HumuLIN 70-30 Vial 12 units SQ TID 01/28/19 02/13/19 Unknown History Aspirin [Low Dose Aspirin EC] 81 mg PO DAILY #30 tablet. 02/04/19 02/13/19 Unk nown Rx Clopidogrel [Plavix] 75 mg PO QDAY #30 tablet 02/04/19 02/13/19 Unknown Rx HYDROcodone/APAP 5-325 [[place] 2 each PO Q6H PRN #14 tablet 02/04/19 02/13/19 Unknown Rx 5-325 mg TAB] Insulin Glargine [Lantus VIAL] 5 units SUB-Q QHS #30 units 02/04/19 Unknown Rx Valsartan [Diovan] 160 mg PO QDAY #30 tablet 02/04/19 02/13/19 Unknown Rx hydroCHLOROthiazide [HCTZ] 25 mg PO QDAY #30 tablet 02/04/19 02/13/19 Unknown Rx Active Meds: Active Medications Acetaminophen (Tylenol) 650 mg PO Q4H PRN PRN Reason: Pain MILD(1-3)/Fever >100.5/MARTÍNEZ Aspirin (Halfprin Ec) 81 mg PO DAILY [facility] Last Admin: 02/15/19 10:48 Dose: 81 mg Documented by: Clopidogrel Bisulfate (Plavix) 75 mg PO QDAY [facility] Last Admin: 02/15/19 10:48 Dose: 75 mg Documented by: Dextrose (D50w (25gm) Syringe) 50 ml IV PRN PRN PRN Reason: Hypoglycemia Enoxaparin Sodium (Lovenox) 30 mg SUB-Q HS [facility] Last Admin: 02/14/19 22:32 Dose: 30 mg Documented by: Hydromorphone HCl (Dilaudid) 0.5 mg IV Q3H PRN PRN Reason: Pain , Severe (7-10) Sodium Chloride (Nacl 0.9% 1000 Ml) 1,000 mls @ 100 mls/hr IV DIRECT RAFAEL Cefepime HCl (Maxipime/Ns 1 Gm/100 Ml) 1 gm in 100 mls @ 200 mls/hr IV Q12HR [facility]; Protocol Insulin Glargine (Lantus) 45 units SUB-Q QHS [facility] Insulin Human Lispro (Humalog) 0 unit SUB-Q ACHS [facility]; Protocol Last Admin: 02/15/19 12:48 Dose: Not Given Documented by: Insulin Human Lispro (Humalog) 10 unit SUB-Q AC [facility] Ondansetron HCl (Zofran) 4 mg IV Q8H PRN PRN Reason: Nausea And Vomiting Oxycodone/Acetaminophen (Percocet 5/325) 1 tab PO Q6H PRN PRN Reason: Pain, Moderate (4-6) Sodium Chloride (Sodium Chloride Flush Syringe 10 Ml) 10 ml IV BID RAFAEL Last Admin: 02/15/19 10:49 Dose: 10 ml Documented by: Sodium Chloride (Sodium Chloride Flush Syringe 10 Ml) 10 ml IV PRN PRN PRN Reason: LINE FLUSH Physical Examination - Physical Exam Narrative exam: Physical Exam: Constitutional: Alert, cooperative. No acute distress Head, Ears, Nose: Normocephalic, atraumatic. External ears, nose normal Eyes: Conjunctivae/corneas clear. No icterus. No ptosis. Neck: Supple, no meningeal signs Oral: dentition fair, no thrush Cardiovascular: S1, S2 normal. Respiratory: Good air entry, clear to auscultation bilaterally GI: Soft, non-tender; bowel sounds normal. No peritoneal signs. No CVA or suprapubic tenderness Musculoskeletal: No pedal edema, no cyanosis. Right second toe with blackish discoloration, multiple right calf fasciotomy wounds with dressing Skin: No rash or abscess Hem/Lymphatic: No palpable cervical or supraclavicular nodes. No lymphangitis Psych: Mood ok. Affect normal Neurological: Awake, alert, oriented. No gross abnormality - Constitutional Vitals: Vital Signs Temp Pulse Resp BP Pulse Ox 97.8 F 104 H 48 H 148/74 98 02/15/19 12:00 02/15/19 10:00 02/14/19 12:00 02/14/19 13:00 02/14/19 16:01 Temperature -Last 24 Hours Temperature 97.8 F Temperature 98.2 F Temperature 98.9 F Temperature 100.8 F Results - Labs CBC & Chem 7: 02/14/19 08:15 02/14/19 08:15 Labs: Abnormal lab results 02/14/19 02/14/19 02/14/19 Range/Units 18:53 21:33 21:40 POC Glucose 353 H 404 H 360 H (70-105) Magnesium (1.7-2.3) mg/dL Total Creatine Kinase (30-135) units/L 02/15/19 02/15/19 02/15/19 Range/Units 01:45 05:32 05:38 POC Glucose 299 H 402 H (70-105) Magnesium 2.80 H (1.7-2.3) mg/dL Total Creatine Kinase 448 H (30-135) units/L 02/15/19 Range/Units 11:35 POC Glucose 393 H (70-105) Magnesium (1.7-2.3) mg/dL Total Creatine Kinase (30-135) units/L - Imaging and Cardiology Chest x-ray: report reviewed, image reviewed (don't see evidence of pneumonia) Assessment and Plan Cultures: 02/13/2019 blood culture: Gram-negative rods 02/14/2019 urine culture: Gram-negative rods A/P: 58-year-old female with hypertension, diabetes mellitus type 2, peripheral vascular disease who was recently hospitalized from vascular surgery clinic due to right second toe gangrene. She underwent thrombolysis of the right lower extremity and underwent a stent placement. She developed compartment syndrome requiring fasciotomy on 01/29/2019 and then was discharged to a rehabilitation facility, admitted with: 1) Sepsis secondary to gram-negative bacteremia: Source is unclear but possibly from right second toe gangrene versus urinary tract infection. Patient denies any urinary burning. UA showed pyuria. Follow up urine and blood cultures. Dis continued Unasyn and vancomycin and start empiric IV cefepime. Fasciotomy wounds appear to be healing well. 2) Acute kidney injury: Renal dose antibiotics. Nephrology consulted. 3) Peripheral vascular disease: Vascular surgery following. Right second toe ischemia and gangrene. 4) Diabetes mellitus type 2, uncontrolled. Recs: Discontinued Unasyn and vancomycin Started IV cefepime renally adjusted Follow-up blood and urine cultures MD [facility] C: [phone] O: [phone] F: [phone]
--- NOTE | 2019-02-15 13:30 | Progress Note ---
Assessment and Plan - Patient Problems (1) GERALDINE (acute kidney injury) Current Visit: Yes Status: Acute Plan to address problem: No new labs this morning. Will order labs for reassessment and monitoring of her renal function. Avoid nephrotoxins, maintain MAP >65mmHg. Will order a renal US at this time for further evaluation. (2) Encephalopathy acute Current Visit: Yes Status: Acute Plan to address problem: Improved at this time since admission, now back to her baseline, Will continue to monitor, (3) Hyperkalemia Current Visit: Yes Status: Acute Plan to address problem: In the setting of hyperglycemia/poorly controlled DM and GERALDINE. Agree with current medical management and primarily control of her hyperglycemia/diabetes. Maintain on low K diet. Will monitor, (4) Hyperosmolar non-ketotic state in patient with type 2 diabetes mellitus Current Visit: Yes Status: Acute Plan to address problem: Management per primary attending. (5) Hyponatremia Current Visit: Yes Status: Acute Plan to address problem: Likely in the setting of hyperglycemia. Will monitor. (6) Sepsis Current Visit: Yes Status: Acute Qualifiers: Sepsis type: sepsis due to unspecified organism Qualified Code(s): A41.9 - Sepsis, unspecified organism Plan to address problem: Unclear etiology, possible underlying UTI, await culture results. Antibiotics to be dosed per her decreased renal clearance. (7) Peripheral vascular disease Current Visit: Yes Status: Acute Plan to address problem: s/p fasciotomy in the setting of developing acute compartment syndrome post thrombolysis. Management per vascular surgery. Subjective Date of service: 02/15/19 Interval history: No acute issues overnight. No new renal function labs this am. Seen by vascular surgery with evaluation noted. Objective - Vital Signs Vital signs: Vital Signs - 12hr 02/15/1919 02/15/19 03:20 08:00 10:00 Temperature 98.9 F 98.2 F Pulse Rate 104 H 02/15/19 12:00 Temperature 97.8 F Pulse Rate - General Appearance General appearance: well-developed, well-nourished, appears stated age EENT: ATNC, PERRL Neck: no JVD, no thyromegaly Respiratory: Present: Clear to Ascultation Cardiology: regular, S1S2 Gastrointestinal: normal, normoactive bowel sounds Integumentary: other (RLE wound with dressing in place) Neurologic: no focal deficit Psychiatric: mood/affect appropriate, cooperative - Lab 02/14/19 08:15 02/14/19 08:15 Most recent lab results Calcium 8.2 mg/dL (8.4-10.2) L 02/14/19 08:15 Phosphorus 3.10 mg/dL (2.5-4.5) 02/15/19 05:32 Magnesium 2.80 mg/dL (1.7-2.3) H 02/15/19 05:32 - Allied health notes Allied health notes reviewed: nursing Medications & Allergies - Medications Allergies/Adverse Reactions: Allergies No Known Allergies Allergy (Verified 01/28/19 21:26) Home Medications: Home Medications Medication Instructions Recorded Confirmed Last Taken Type HumuLIN 70-30 Vial 12 units SQ TID 01/28/19 02/13/19 Unknown History Aspirin [Low Dose Aspirin EC] 81 mg PO DAILY #30 tablet. 02/04/19 02/13/19 Unknown Rx Clopidogrel [Plavix] 75 mg PO QDAY #30 tablet 02/04/19 02/13/19 Unknown Rx HYDROcodone/APAP 5-325 [[place] 2 each PO Q6H PRN #14 tablet 02/04/19 02/13/19 Unknown Rx 5-325 mg TAB] Insulin Glargine [Lantus VIAL] 5 units SUB-Q QHS #30 units 02/04/19 Unknown Rx Valsartan [Diovan] 160 mg PO QDAY #30 tablet 02/04/19 02/13/19 Unknown Rx hydroCHLOROthiazide [HCTZ] 25 mg PO QDAY #30 tablet 02/04/19 02/13/19 Unknown Rx Active Medications: Generic Name Dose Route Start Last Admin Trade Name Freq PRN Reason Stop Dose Admin Acetaminophen 650 mg 02/13/19 18:03 Tylenol PO Q4H PRN Pain MILD(1-3)/Fever >100.5/MARTÍNEZ Aspirin 81 mg 02/14/19 10:00 02/15/19 10:48 Halfprin Ec PO 81 mg DAILY RAFAEL Administration Clopidogrel Bisulfate 75 mg 02/13/19 19:00 02/15/19 10:48 Plavix PO 75 mg QDAY RAFAEL Administration Dextrose 50 ml 02/14/19 14:03 D50w (25gm) Syringe IV PRN PRN Hypoglycemia Enoxaparin Sodium 30 mg 02/14/19 22:00 02/14/19 22:32 Lovenox SUB-Q 30 mg HS RAFAEL Administration Hydromorphone HCl 0.5 mg 02/13/19 18:03 Dilaudid IV Q3H PRN Pain , Severe (7-10) Sodium Chloride 1,000 mls @ 100 mls/hr 02/13/19 19:00 Nacl 0.9% 1000 Ml IV DIRECT RAFAEL Cefepime HCl 1 gm in 100 mls @ 200 mls/hr 02/15/19 14:00 Maxipime/Ns 1 Gm/100 Ml IV Q12HR REPLACED BY [facility] Protocol Insulin Glargine 45 units 02/15/19 22:00 Lantus SUB-Q QHS REPLACED BY [facility] Insulin Human Lispro 0 unit 02/14/19 16:30 02/15/19 12:48 Humalog SUB-Q Not Given ACHS REPLACED BY [facility] Protocol Insulin Human Lispro 10 unit 02/15/19 11:43 Humalog SUB-Q AC REPLACED BY [facility] Ondansetron HCl 4 mg 02/13/19 18:03 Zofran IV Q8H PRN Nausea And Vomiting Oxycodone/Acetaminophen 1 tab 02/13/19 18:03 Percocet 5/325 PO Q6H PRN Pain, Moderate (4-6) Sodium Chloride 10 ml 02/13/19 22:00 02/15/19 10:49 Sodium Chloride Flush Syringe 10 Ml IV 10 ml BID RAFAEL Administration Sodium Chloride 10 ml 02/13/19 18:03 Sodium Chloride Flush Syringe 10 Ml IV PRN PRN LINE FLUSH
[2019-02-15 15:12] LABS: Calcium 8.1 mg/dL (8.4-10.2)
[2019-02-15] MEDS: MAXIPIME/NS 1 GM/100 ML 1 GM/100 ML BAG IV SCH ×2 (18:04→22:35)
[2019-02-15] MEDS ORDERED: LANTUS SUB-Q SCH (22:00)
[2019-02-15] MEDS: PERCOCET 5/325 PO PRN (22:34)
[2019-02-15] MEDS: LOVENOX SUB-Q SCH (22:37)
--- NOTE | 2019-02-16 08:10 | Progress Note ---
Assessment and Plan - Patient Problems (1) GERALDINE (acute kidney injury) Current Visit: Yes Status: Acute Plan to address problem: Labs noted from yesterday afternoon indicating improvement in renal function. Will continue to monitor. (2) Encephalopathy acute Current Visit: Yes Status: Acute Plan to address problem: Improved at this time since admission, now back to her baseline, Will continue to monitor, (3) Hyperkalemia Current Visit: Yes Status: Acute Plan to address problem: In the setting of hyperglycemia/poorly controlled DM and GERALDINE. Agree with current medical management and primarily control of her hyperglycemia/diabetes. Maintain on low K diet. Will monitor, Improved on most recent set of labs. (4) Hyperosmolar non-ketotic state in patient with type 2 diabetes mellitus Current Visit: Yes Status: Acute Plan to address problem: Management per primary attending. (5) Hyponatremia Current Visit: Yes Status: Acute Plan to address problem: Likely in the setting of hyperglycemia. Will monitor. (6) Sepsis Current Visit: Yes Status: Acute Qualifiers: Sepsis type: sepsis due to unspecified organism Qualified Code(s): A41.9 - Sepsis, unspecified organism Plan to address problem: Unclear etiology, possible underlying UTI vs right gangrenous toe, await culture results. Antibiotics to be dosed per her decreased renal clearance. She has no been placed on IV cefepime and ID evaluation reviewed. (7) Peripheral vascular disease Current Visit: Yes Status: Acute Plan to address problem: s/p fasciotomy in the setting of developing acute compartment syndrome post thrombolysis. Management per vascular surgery. Subjective Date of service: 02/16/19 Interval history: No acute changes, labs noted and renal function is improving. No acute complaints this am. Objective - Vital Signs Vital signs: Vital Signs - 12hr 02/15/19 02/16/19 02/16/19 22:00 00:00 04:00 Pulse Rate 83 Pulse Rate [ 92 H 83 Radial] Respiratory 28 H 30 H Rate - General Appearance General appearance: well-nourished, appears stated age EENT: ATNC, PERRL Neck: no JVD, no thyromegaly Respiratory: Present: Clear to Ascultation Cardiology: regular, S1S2 Gastrointestinal: normal, normoactive bowel sounds Integumentary: other (RLE wound with dressing in place) Neurologic: no focal deficit, alert and oriented x3 Musculoskeletal: other (-edema ) Psychiatric: mood/affect appropriate, cooperative - Lab 02/14/19 08:15 02/15/19 14:48 Most recent lab results Calcium 8.1 mg/dL (8.4-10.2) L 02/15/19 14:48 Phosphorus 3.10 mg/dL (2.5-4.5) 02/15/19 05:32 Magnesium 2.80 mg/dL (1.7-2.3) H 02/15/19 05:32 - Allied health notes Allied health notes reviewed: nursing Medications & Allergies - Medications Allergies/Adverse Reactions: Allergies No Known Allergies Allergy (Verified 01/28/19 21:26) Home Medications: Home Medications Medication Instructions Recorded Confirmed Last Taken Type HumuLIN 70-30 Vial 12 units SQ TID 01/28/19 02/13/19 Unknown History Aspirin [Low Dose Aspirin EC] 81 mg PO DAILY #30 tablet. 02/04/19 02/13/19 Unknown Rx Clopidogrel [Plavix] 75 mg PO QDAY #30 tablet 02/04/19 02/13/19 Unknown Rx HYDROcodone/APAP 5-325 [[place] 2 each PO Q6H PRN #14 tablet 02/04/19 02/13/19 Unknown Rx 5-325 mg TAB] Insulin Glargine [Lantus VIAL] 5 units SUB-Q QHS #30 units 02/04/19 Unknown Rx Valsartan [Diovan] 160 mg PO QDAY #30 tablet 02/04/19 02/13/19 Unknown Rx hydroCHLOROthiazide [HCTZ] 25 mg PO QDAY #30 tablet 02/04/19 02/13/19 Unknown Rx Active Medications: Generic Name Dose Route Start Last Admin Trade Name Freq PRN Reason Stop Dose Admin Acetaminophen 650 mg 02/13/19 18:03 Tylenol PO Q4H PRN Pain MILD(1-3)/Fever >100.5/MARTÍNEZ Aspirin 81 mg 02/14/19 10:00 02/15/19 10:48 Halfprin Ec PO 81 mg DAILY RAFAEL Administration Clopidogrel Bisulfate 75 mg 02/13/19 19:00 02/15/19 10:48 Plavix PO 75 mg QDAY RAFAEL Administration Dextrose 50 ml 02/14/19 14:03 D50w (25gm) Syringe IV PRN PRN Hypoglycemia Enoxaparin Sodium 30 mg 02/14/19 22:00 02/15/19 22:37 Lovenox SUB-Q 30 mg HS RAFAEL Administration Hydromorphone HCl 0.5 mg 02/13/19 18:03 Dilaudid IV Q3H PRN Pain , Severe (7-10) Sodium Chloride 1,000 mls @ 100 mls/hr 02/13/19 19:00 Nacl 0.9% 1000 Ml IV DIRECT RAFAEL Cefepime HCl 1 gm in 100 mls @ 200 mls/hr 02/15/19 14:00 02/15/19 22:35 Maxipime/Ns 1 Gm/100 Ml IV 200 mls/hr Q12HR RAFAEL Administration Protocol Insulin Glargine 45 units 02/15/19 22:00 02/15/19 22:37 Lantus SUB-Q 45 units QHS RAFAEL Administration Insulin Human Lispro 0 unit 02/14/19 16:30 02/15/19 22:35 Humalog SUB-Q 6 unit ACHS RAFAEL Administration Protocol Insulin Human Lispro 10 unit 02/15/19 11:43 02/15/19 17:51 Humalog SUB-Q 10 unit AC RAFAEL Administration Ondansetron HCl 4 mg 02/13/19 18:03 Zofran IV Q8H PRN Nausea And Vomiting Oxycodone/Acetaminophen 1 tab 02/13/19 18:03 02/15/19 22:34 Percocet 5/325 PO 1 tab Q6H PRN Administration Pain, Moderate (4-6) Sodium Chloride 10 ml 02/13/19 22:00 02/15/19 22:37 Sodium Chloride Flush Syringe 10 Ml IV 10 ml BID RAFAEL Administration Sodium Chloride 10 ml 02/13/19 18:03 Sodium Chloride Flush Syringe 10 Ml IV PRN PRN LINE FLUSH
[2019-02-16] MEDS: HumaLOG SUB-Q SCH ×6 (08:53→18:02)
[2019-02-16] MEDS: MAXIPIME/NS 1 GM/100 ML 1 GM/100 ML BAG IV SCH (09:50)
[2019-02-16] MEDS: PLAVIX PO SCH (09:50)
--- NOTE | 2019-02-16 09:50 | Progress Note ---
Assessment and Plan Patient sepsis most likely secondary to urinary tract infection. Her second toe has dry gangrene which will ultimately require amputation. Additionally, the patient's renal function is improving. Would follow the patient clinically, she may return when she is improved for toe amputation on an outpatient basis. X- ray of the foot ordered to determine if there is underlying osteomyelitis Subjective Date of service: 02/16/19 Principal diagnosis: PVD with gangrene right toe, status post fasciotomies Interval history: Patient with no significant complaints of leg pain. She will have a wound VAC applied to the lateral fasciotomy site today by wound care. Patient ambulated briefly yesterday with physical therapy. Urine cultures and blood cultures noted. Objective - Constitutional Vitals: Vital Signs - 12hr 02/15/19 02/16/19 02/16/19 22:00 00:00 04:00 Temperature Pulse Rate 83 Pulse Rate [ 92 H 83 Radial] Respiratory 28 H 30 H Rate 02/16/19 08:00 Temperature 97.0 F L Pulse Rate Pulse Rate [ Radial] Respiratory Rate General appearance: Present: no acute distress - EENT Eyes: EOM intact ENT: hearing intact - Neck Neck: supple, normal ROM - Respiratory Respiratory effort: normal Extremities: abnormal - Gastrointestinal General gastrointestinal: Present: deferred Rectal Exam: deferred - Genitourinary Female genitourinary: deferred - Neurologic Neurologic: moves all extremities - Psychiatric Psychiatric: appropriate mood/affect, cooperative - Labs CBC & Chem 7: 02/14/19 08:15 02/15/19 14:48 Labs: Abnormal lab results 02/15/19 02/15/19 02/15/19 Range/Units 11:35 14:15 14:48 Sodium 128 L (137-145) mmol/L Chloride 92.4 L (98-107) mmol/L Carbon Dioxide 21 L (22-30) mmol/L BUN 86 H (7-17) mg/dL Creatinine 1.9 H (0.7-1.2) mg/dL Glucose 436 H (65-100) mg/dL POC Glucose 393 H 386 H (70-105) Calcium 8.1 L (8.4-10.2) mg/dL Total Creatine Kinase (30-135) units/L 02/15/19 02/15/19 02/15/19 Range/Units 17:21 22:32 23:51 Sodium (137-145) mmol/L Chloride (98-107) mmol/L Carbon Dioxide (22-30) mmol/L BUN (7-17) mg/dL Creatinine (0.7-1.2) mg/dL Glucose (65-100) mg/dL POC Glucose 347 H 272 H 244 H (70-105) Calcium (8.4-10.2) mg/dL Total Creatine Kinase (30-135) units/L 02/16/19 02/16/19 02/16/19 Range/Units 04:08 05:29 08:52 Sodium (137-145) mmol/L Chloride (98-107) mmol/L Carbon Dioxide (22-30) mmol/L BUN (7-17) mg/dL Creatinine (0.7-1.2) mg/dL Glucose (65-100) mg/dL POC Glucose 253 H 262 H (70-105) Calcium (8.4-10.2) mg/dL Total Creatine Kinase 200 H (30-135) units/L Medications & Allergies - Medications Allergies/Adverse Reactions: Allergies No Known Allergies Allergy (Verified 01/28/19 21:26) Home Medications: Home Medications Medication Instructions Recorded Confirmed Last Taken Type HumuLIN 70-30 Vial 12 units SQ TID 01/28/19 02/13/19 Unknown History Aspirin [Low Dose Aspirin EC] 81 mg PO DAILY #30 tablet. 02/04/19 02/13/19 Unknown Rx Clopidogrel [Plavix] 75 mg PO QDAY #30 tablet 02/04/19 02/13/19 Unknown Rx HYDROcodone/APAP 5-325 [[place] 2 each PO Q6H PRN #14 tablet 02/04/19 02/13/19 Unknown Rx 5-325 mg TAB] Insulin Glargine [Lantus VIAL] 5 units SUB-Q QHS #30 units 02/04/19 Unknown Rx Valsartan [Diovan] 160 mg PO QDAY #30 tablet 02/04/19 02/13/19 Unknown Rx hydroCHLOROthiazide [HCTZ] 25 mg PO QDAY #30 tablet 02/04/19 02/13/19 Unknown Rx Active Medications: Generic Name Dose Route Start Last Admin Trade Name Freq PRN Reason Stop Dose Admin Acetaminophen 650 mg 02/13/19 18:03 Tylenol PO Q4H PRN Pain MILD(1-3)/Fever >100.5/MARTÍNEZ Aspirin 81 mg 02/14/19 10:00 02/15/19 10:48 Halfprin Ec PO 81 mg DAILY RAFAEL Administration Clopidogrel Bisulfate 75 mg 02/13/19 19:00 02/15/19 10:48 Plavix PO 75 mg QDAY RAFAEL Administration Dextrose 50 ml 02/14/19 14:03 D50w (25gm) Syringe IV PRN PRN Hypoglycemia Enoxaparin Sodium 30 mg 02/14/19 22:00 02/15/19 22:37 Lovenox SUB-Q 30 mg HS RAFAEL Administration Hydromorphone HCl 0.5 mg 02/13/19 18:03 Dilaudid IV Q3H PRN Pain , Severe (7-10) Sodium Chloride 1,000 mls @ 100 mls/hr 02/13/19 19:00 Nacl 0.9% 1000 Ml IV DIRECT RAFAEL Cefepime HCl 1 gm in 100 mls @ 200 mls/hr 02/15/19 14:00 02/15/19 22:35 Maxipime/Ns 1 Gm/100 Ml IV 200 mls/hr Q12HR RAFAEL Administration Protocol Insulin Glargine 45 units 02/15/19 22:00 02/15/19 22:37 Lantus SUB-Q 45 units QHS RAFAEL Administration Insulin Human Lispro 0 unit 02/14/19 16:30 02/16/19 08:53 Humalog SUB-Q 6 unit ACHS RAFAEL Administration Protocol Insulin Human Lispro 10 unit 02/15/19 11:43 02/16/19 08:54 Humalog SUB-Q 10 unit AC RAFAEL Administration Ondansetron HCl 4 mg 02/13/19 18:03 Zofran IV Q8H PRN Nausea And Vomiting Oxycodone/Acetaminophen 1 tab 02/13/19 18:03 02/15/19 22:34 Percocet 5/325 PO 1 tab Q6H PRN Administration Pain, Moderate (4-6) Sodium Chloride 10 ml 02/13/19 22:00 02/15/19 22:37 Sodium Chloride Flush Syringe 10 Ml IV 10 ml BID RAFAEL Administration Sodium Chloride 10 ml 02/13/19 18:03 Sodium Chloride Flush Syringe 10 Ml IV PRN PRN LINE FLUSH
[2019-02-16] MEDS: HALFPRIN EC PO SCH (09:51)
[2019-02-16] MEDS: SODIUM CHLORIDE FLUSH SYRINGE 10 ML IV SCH (09:51)
--- NOTE | 2019-02-16 11:51 | Progress Note ---
Assessment and Plan Cultures: 02/13/2019 blood culture: E. coli, 4 out of 4 bottles 02/14/2019 urine culture: E. coli A/P: 58-year-old female with hypertension, diabetes mellitus type 2, peripheral vascular disease who was recently hospitalized from vascular surgery clinic due to right second toe gangrene. She underwent thrombolysis of the right lower extremity and underwent a stent placement. She developed compartment syndrome requiring fasciotomy on 01/29/2019 and then was discharged to a rehabilitation facility, admitted with: 1) Sepsis secondary to gram-negative bacteremia: Source is unclear but possibly from right second toe gangrene versus urinary tract infection. Patient denies any urinary burning. UA showed pyuria. Follow up urine and blood cultures. . Fasciotomy wounds appear to be healing well. 2) E. coli bacteremia: 4 out of 4 bottles, hobson susceptible. Will deescalate to Ceftriaxone. Repeat blood cultures to ensure clearance. 3) UTI: U/a shows Pyuria, WBC > 182 with large LE. Urine culture grew E.coli. 4) Acute kidney injury: Renal dose antibiotics. Nephrology following. 5) Peripheral vascular disease: Vascular surgery following. Right second toe ischemia and gangrene. 6) Diabetes mellitus type 2, uncontrolled. Recs: Start IV ceftiaxone 2 gms IV q 24 hours Discontinue Cefepime Follow-up blood and urine cultures order blood cultures [facility] M: [id number] O:[phone] Subjective Date of service: 02/16/19 Principal diagnosis: PVD with gangrene right toe, status post fasciotomies Interval history: Patient seen and examined. Sitting up in bed, reports no acute distress, generalized weakness. Objective - Exam Narrative Exam: Constitutional: Alert, cooperative. No acute distress Head, Ears, Nose: Normocephalic, atraumatic. External ears, nose normal Eyes: Conjunctivae/corneas clear. No icterus. No ptosis. Neck: Supple, no meningeal signs Oral: dentition fair, no thrush Cardiovascular: S1, S2 normal. Respiratory: Good air entry, clear to auscultation bilaterally GI: Soft, non-tender; bowel sounds normal. No peritoneal signs. No CVA or suprapubic tenderness Musculoskeletal: No pedal edema, no cyanosis. Right second toe with blackish discoloration, multiple right calf fasciotomy wounds with dressing Skin: No rash or abscess Hem/Lymphatic: No palpable cervical or supraclavicular nodes. No lymphangitis Psych: Mood ok. Affect normal Neurological: Awake, alert, oriented. No gross abnormality - Constitutional Vitals: Vital Signs Temp Pulse Resp BP Pulse Ox 97.0 F L 83 30 H 148/74 98 02/16/19 08:00 02/16/19 04:00 02/16/19 04:00 02/14/19 13:00 02/14/19 16:01 Temperature -Last 24 Hours Temperature 97.0 F Temperature 99.5 F Temperature 99.5 F Temperature 98.0 F Temperature 97.8 F - Labs CBC & Chem 7: 02/14/19 08:15 02/15/19 14:48 Labs: Abnormal lab results 02/15/19 02/15/19 02/15/19 Range/Units 14:15 14:48 17:21 Sodium 128 L (137-145) mmol/L Chloride 92.4 L (98-107) mmol/L Carbon Dioxide 21 L (22-30) mmol/L BUN 86 H (7-17) mg/dL Creatinine 1.9 H (0.7-1.2) mg/dL Glucose 436 H (65-100) mg/dL POC Glucose 386 H 347 H (70-105) Calcium 8.1 L (8.4-10.2) mg/dL Total Creatine Kinase (30-135) units/L 02/15/19 02/15/19 02/16/19 Range/Units 22:32 23:51 04:08 Sodium (137-145) mmol/L Chloride (98-107) mmol/L Carbon Dioxide (22-30) mmol/L BUN (7-17) mg/dL Creatinine (0.7-1.2) mg/dL Glucose (65-100) mg/dL POC Glucose 272 H 244 H 253 H (70-105) Calcium (8.4-10.2) mg/dL Total Creatine Kinase (30-135) units/L 02/16/19 02/16/19 Range/Units 05:29 08:52 Sodium (137-145) mmol/L Chloride (98-107) mmol/L Carbon Dioxide (22-30) mmol/L BUN (7-17) mg/dL Creatinine (0.7-1.2) mg/dL Glucose (65-100) mg/dL POC Glucose 262 H (70-105) Calcium (8.4-10.2) mg/dL Total Creatine Kinase 200 H (30-135) units/L
--- NOTE | 2019-02-16 12:12 | Ultrasound Report ---
ULTRASOUND RENAL BILATERAL HISTORY: Acute kidney insufficiency. TECHNIQUE: transabdominal ultrasound with color Doppler interrogation. FINDINGS: The right kidney measures 13.4 x 5.9 x 6.4cm. Right renal cortex: 2.0cm. The left kidney measures 12.0 x 6.2 x 5.9cm. Left renal cortex: 2.2cm. Scans of the kidneys show normal renal contours. There is normal central calyceal clustering and good preservation of the cortical thickness. There is no evidence of mass or hydronephrosis. The views of the bladder and the region of the ureters appear normal. IMPRESSION: Unremarkable renal ultrasound.
[2019-02-16] MEDS ORDERED: LANTUS SUB-Q ONE (14:00)
[2019-02-16] MEDS: ROCEPHIN/NS 2 GM/100 ML 2 GM/100 ML BAG IV SCH (15:05)
[2019-02-16] MEDS ORDERED: APRESOLINE IV PRN (16:04)
--- NOTE | 2019-02-16 18:43 | Progress Note ---
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 CT head; no acute findings CXR no acute findings Labs; UA > 182 WBC Diagnosis sepsis, ecoli Bactermia and Ecoli UTI anemia, likely due to chronic disease HHNK, Type 2 DM, A1c 9 Hyponatremia, likely pseudohyponatremia of hyperglycemia Hyperkalemia GERALDINE- likely ATN Hypomagesemia- resolved PAD hx of RLE ischemia, sp thrombolysis, revascularization and fascitomy Rhabdomylsis, non traumatic acute metabolic enncephalopathy Plan empiric abx, fup blood and urine cx, ID consult appreciated optimize insulins and BP meds, IVF, renal US, nephrology consult appreciated, Cr improving Mg was repleted vascular consult appreciated, "Her second toe has dry gangrene which will ultimately require amputation. Additionally, the patient's renal function is improving. Would follow the patient clinically, she may return when she is improved for toe amputation on an outpatient basis. X-ray of the foot ordered to determine if there is underlying osteomyelitis" DVT ppx- chemical History Interval history: Review of systems Constitutional: No fevers, no malaise, no joint pains CVS: No chest pain, no orthopnea, no dyspnea on exertion, no pedal edema GI: No abdominal pain, no diarrhea, no vomiting, no constipation Respiratory: No shortness of breath, no wheezing, no coughing Hospitalist Physical - Physical exam Narrative exam: General.: Appears well, no distress, nontoxic HEENT: Moist mucous membranes, extraocular muscles intact, no lymphadenopathy Neck: supple Cardiac: S1-S2 heard Lungs: clear to auscultation bilaterally Abdomen: soft , nontender, nondistended, bowel sounds positive Extremities: ; R second toe dry gangrene R leg open wound- large, from fasciotomy Skin: no rash or lesions Neurologic: no gross focal deficits Psych: calm, and cooperative - Constitutional Vitals: Temp Pulse Resp BP Pulse Ox 99.0 F 104 H 26 H 148/74 99 02/16/19 16:00 02/16/19 16:00 02/16/19 16:00 02/14/19 13:00 02/16/19 16:00 General appearance: Present: no acute distress Results - Labs CBC & Chem 7: 02/17/19 10:41 02/17/19 03:49 Labs: Laboratory Last Values WBC 23.2 K/mm3 (4.5-11.0) H 02/14/19 08:15 RBC 2.89 M/mm3 (3.65-5.03) L 02/14/19 08:15 Hgb 8.3 gm/dl (10.1-14.3) L 02/14/19 08:15 Hct 25.3 % (30.3-42.9) L 02/14/19 08:15 MCV 88 fl (79-97) 02/14/19 08:15 MCH 29 pg (28-32) 02/14/19 08:15 MCHC 33 % (30-34) 02/14/19 08:15 RDW 16.6 % (13.2-15.2) H 02/14/19 08:15 Plt Count 457 K/mm3 (140-440) H 02/14/19 08:15 Add Manual Diff Complete 02/14/19 08:15 Total Counted 100 02/14/19 08:15 Seg Neutrophils % Staff Psychiatrist 02/13/19 14:08 Seg Neuts % (Manual) 91.0 % (40.0-70.0) H 02/14/19 08:15 Band Neutrophils % 1.0 % 02/14/19 08:15 Lymphocytes % (Manual) 3.0 % (13.4-35.0) L 02/14/19 08:15 Reactive Lymphs % (Man) 0 % 02/14/19 08:15 Monocytes % (Manual) 5.0 % (0.0-7.3) 02/14/19 08:15 Eosinophils % (Manual) 0 % (0.0-4.3) 02/14/19 08:15 Basophils % (Manual) 0 % (0.0-1.8) 02/14/19 08:15 Metamyelocytes % 0 % 02/14/19 08:15 Myelocytes % 0 % 02/14/19 08:15 Promyelocytes % 0 % 02/14/19 08:15 Blast Cells % 0 % 02/14/19 08:15 Nucleated RBC % Not Reportable 02/14/19 08:15 Seg Neutrophils # Man 21.1 K/mm3 (1.8-7.7) H 02/14/19 08:15 Band Neutrophils # 0.2 K/mm3 02/14/19 08:15 Lymphocytes # (Manual) 0.7 K/mm3 (1.2-5.4) L 02/14/19 08:15 Abs React Lymphs (Man) 0.0 K/mm3 02/14/19 08:15 Monocytes # (Manual) 1.2 K/mm3 (0.0-0.8) H 02/14/19 08:15 Eosinophils # (Manual) 0.0 K/mm3 (0.0-0.4) 02/14/19 08:15 Basophils # (Manual) 0.0 K/mm3 (0.0-0.1) 02/14/19 08:15 Metamyelocytes # 0.0 K/mm3 02/14/19 08:15 Myelocytes # 0.0 K/mm3 02/14/19 08:15 Promyelocytes # 0.0 K/mm3 02/14/19 08:15 Blast Cells # 0.0 K/mm3 02/14/19 08:15 WBC Morphology Not Reportable 02/14/19 08:15 Hypersegmented Neuts Not Reportable 02/14/19 08:15 Hyposegmented Neuts Not Reportable 02/14/19 08:15 Hypogranular Neuts Not Reportable 02/14/19 08:15 Smudge Cells Not Reportable 02/14/19 08:15 Toxic Granulation Not Reportable 02/14/19 08:15 Toxic Vacuolation Not Reportable 02/14/19 08:15 Dohle Bodies Not Reportable 02/14/19 08:15 Pelger-Huet Anomaly Not Reportable 02/14/19 08:15 Cisco Rods Not Reportable 02/14/19 08:15 Platelet Estimate Cons 02/14/19 08:15 Clumped Platelets Not Reportable 02/14/19 08:15 Plt Clumps, EDTA Not Reportable 02/14/19 08:15 Large Platelets Few 02/14/19 08:15 Giant Platelets Not Reportable 02/14/19 08:15 Platelet Satelliting Not Reportable 02/14/19 08:15 Plt Morphology Comment Not Reportable 02/14/19 08:15 RBC Morphology Not Reportable 02/14/19 08:15 Dimorphic RBCs Not Reportable 02/14/19 08:15 Polychromasia Few 02/14/19 08:15 Hypochromasia Few 02/14/19 08:15 Poikilocytosis Not Reportable 02/14/19 08:15 Anisocytosis Not Reportable 02/14/19 08:15 Microcytosis Not Reportable 02/14/19 08:15 Macrocytosis Not Reportable 02/14/19 08:15 Spherocytes Not Reportable 02/14/19 08:15 Pappenheimer Bodies Not Reportable 02/14/19 08:15 Sickle Cells Not Reportable 02/14/19 08:15 Target Cells Few 02/14/19 08:15 Tear Drop Cells Not Reportable 02/14/19 08:15 Ovalocytes Not Reportable 02/14/19 08:15 Helmet Cells Not Reportable 02/14/19 08:15 Starkey-Kremmling Bodies Not Reportable 02/14/19 08:15 [place] Rings Not Reportable 02/14/19 08:15 Vipul Cells Not Reportable 02/14/19 08:15 Bite Cells Not Reportable 02/14/19 08:15 Crenated Cell Not Reportable 02/14/19 08:15 Elliptocytes Not Reportable 02/14/19 08:15 Acanthocytes (Spur) Not Reportable 02/14/19 08:15 Rouleaux Not Reportable 02/14/19 08:15 Hemoglobin C Crystals Not Reportable 02/14/19 08:15 Schistocytes Not Reportable 02/14/19 08:15 Malaria parasites Not Reportable 02/14/19 08:15 Augusto Bodies Not Reportable 02/14/19 08:15 Hem Pathologist Commnt No 02/14/19 08:15 PT 15.6 Sec. (12.2-14.9) H 02/13/19 14:15 INR 1.17 (0.87-1.13) H 02/13/19 14:15 APTT 26.6 Sec. (24.2-36.6) 02/13/19 14:15 VBG pH 7.379 (7.320-7.420) 02/13/19 14:08 Sodium 128 mmol/L (137-145) L 02/15/19 14:48 Potassium 4.4 mmol/L (3.6-5.0) 02/15/19 14:48 Chloride 92.4 mmol/L (98-107) L 02/15/19 14:48 Carbon Dioxide 21 mmol/L (22-30) L 02/15/19 14:48 Anion Gap 19 mmol/L 02/15/19 14:48 BUN 86 mg/dL (7-17) H 02/15/19 14:48 Creatinine 1.9 mg/dL (0.7-1.2) H 02/15/19 14:48 Estimated GFR 33 ml/min 02/15/19 14:48 BUN/Creatinine Ratio 45 % 02/15/19 14:48 Glucose 436 mg/dL (65-100) H 02/15/19 14:48 POC Glucose 146 (70-105) H 02/16/19 16:20 Hemoglobin A1c 9.2 % (4-6) H 02/13/19 18:15 Ketones Quantitative Negative (Negative) 02/13/19 14:08 Calcium 8.1 mg/dL (8.4-10.2) L 02/15/19 14:48 Phosphorus 3.10 mg/dL (2.5-4.5) 02/15/19 05:32 Magnesium 2.80 mg/dL (1.7-2.3) H 02/15/19 05:32 Total Bilirubin 1.60 mg/dL (0.1-1.2) H 02/14/19 08:15 Direct Bilirubin 1.1 mg/dL (0-0.2) H 02/13/19 14:08 Indirect Bilirubin 0.4 mg/dL 02/13/19 14:08 AST 47 units/L (5-40) H 02/14/19 08:15 ALT 33 units/L (7-56) 02/14/19 08:15 Alkaline Phosphatase 218 units/L (35-129) H 02/14/19 08:15 Ammonia 40.0 umol/L (25-60) 02/13/19 14:15 Total Creatine Kinase 200 units/L (30-135) H 02/16/19 05:29 CK-MB (CK-2) 3.6 ng/mL (0.0-4.0) 02/13/19 14:20 CK-MB (CK-2) Rel Index 0.2 (0-4) 02/13/19 14:20 Troponin T 0.072 ng/mL (0.00-0.029) H 02/13/19 14:20 NT-Pro-B Natriuret Pep 6167 pg/mL (0-900) H 02/13/19 14:15 Total Protein 6.2 g/dL (6.3-8.2) L 02/14/19 08:15 Albumin 2.2 g/dL (3.9-5) L 02/14/19 08:15 Albumin/Globulin Ratio 0.6 % 02/14/19 08:15 Triglycerides 329 mg/dL (2-149) H 02/13/19 14:20 Cholesterol 159 mg/dL (50-199) 02/13/19 14:20 LDL Cholesterol Direct 36 mg/dL (50-130) L 02/13/19 14:20 HDL Cholesterol 17 mg/dL (40-59) L 02/13/19 14:20 Cholesterol/HDL Ratio 9.35 % 02/13/19 14:20 Urine Color Steffi (Yellow) 02/14/19 09:07 Urine Turbidity Cloudy (Clear) 02/14/19 09:07 Urine pH 5.0 (5.0-7.0) 02/14/19 09:07 Ur Specific Mulga 1.013 (1.003-1.030) 02/14/19 09:07 Urine Protein 100 mg/dl mg/dL (Negative) 02/14/19 09:07 Urine Glucose (UA) 50 mg/dL (Negative) 02/14/19 09:07 Urine Ketones Neg mg/dL (Negative) 02/14/19 09:07 Urine Blood Lg (Negative) 02/14/19 09:07 Urine Nitrite Neg (Negative) 02/14/19 09:07 Urine Bilirubin Neg (Negative) 02/14/19 09:07 Urine Urobilinogen 2.0 mg/dL (<2.0) 02/14/19 09:07 Ur Leukocyte Esterase Lg (Negative) 02/14/19 09:07 Urine WBC (Auto) > 182.0 /HPF (0.0-6.0) H 02/14/19 09:07 Urine RBC (Auto) 9.0 /HPF (0.0-6.0) 02/14/19 09:07 U Epithel Cells (Auto) 1.0 /HPF (0-13.0) 02/14/19 09:07 Urine Bacteria (Auto) 4+ /HPF (Negative) 02/14/19 09:07 Urine WBC Clumps 3+ /HPF 02/14/19 09:07 Ur Transition Epith Cell 1 /HPF 02/14/19 09:07 Urine Mucus Few /HPF 02/14/19 09:07 Vancomycin Trough 14.5 ug/mL (5.0-20.0) 02/15/19 05:32 Urine Opiates Screen Presumptive negative 02/14/19 09:07 Urine Methadone Screen Presumptive negative 02/14/19 09:07 Ur Barbiturates Screen Presumptive negative 02/14/19 09:07 Ur Phencyclidine Scrn Presumptive negative 02/14/19 09:07 Ur Amphetamines Screen Presumptive negative 02/14/19 09:07 U Benzodiazepines Scrn Presumptive negative 02/14/19 09:07 Urine Cocaine Screen Presumptive negative 02/14/19 09:07 U Marijuana (THC) Screen Presumptive negative 02/14/19 09:07 Drugs of Abuse Note Disclamer 02/14/19 09:07 Blood Type B POSITIVE 02/13/19 14:15 Antibody Screen Negative 02/13/19 14:15 Active Medications - Current Medications Current Medications: Generic Name Dose Route Start Last Admin Trade Name Freq PRN Reason Stop Dose Admin Acetaminophen 650 mg 02/13/19 18:03 Tylenol PO Q4H PRN Pain MILD(1-3)/Fever >100.5/MARTÍNEZ Aspirin 81 mg 02/14/19 10:00 02/16/19 09:51 Halfprin Ec PO 81 mg DAILY RAFAEL Administration Clopidogrel Bisulfate 75 mg 02/13/19 19:00 02/16/19 09:50 Plavix PO 75 mg QDAY RAFAEL Administration Dextrose 50 ml 02/14/19 14:03 D50w (25gm) Syringe IV PRN PRN Hypoglycemia Enoxaparin Sodium 30 mg 02/14/19 22:00 02/15/19 22:37 Lovenox SUB-Q 30 mg HS RAFAEL Administration Hydralazine HCl 10 mg 02/16/19 16:04 Apresoline IV Q4HR PRN BP >160/100 Hydromorphone HCl 0.5 mg 02/13/19 18:03 Dilaudid IV Q3H PRN Pain , Severe (7-10) Sodium Chloride 1,000 mls @ 100 mls/hr 02/13/19 19:00 Nacl 0.9% 1000 Ml IV DIRECT RAFAEL Ceftriaxone Sodium 2 gm in 100 mls @ 200 mls/hr 02/16/19 15:00 02/16/19 15:05 Rocephin/Ns 2 Gm/100 Ml IV 200 mls/hr Q24HR RAFAEL Administration Protocol Insulin Glargine 27 units 02/16/19 22:00 Lantus SUB-Q BID RAFAEL Insulin Human Lispro 0 unit 02/14/19 16:30 02/16/19 17:19 Humalog SUB-Q Not Given ACHS [facility] Protocol Insulin Human Lispro 10 unit 02/15/19 11:43 02/16/19 18:02 Humalog SUB-Q 10 unit AC RAFAEL Administration Nifedipine 60 mg 02/16/19 22:00 Procardia Xl PO Q12HR RAFAEL Ondansetron HCl 4 mg 02/13/19 18:03 Zofran IV Q8H PRN Nausea And Vomiting Oxycodone/Acetaminophen 1 tab 02/13/19 18:03 02/15/19 22:34 Percocet 5/325 PO 1 tab Q6H PRN Administration Pain, Moderate (4-6) Sodium Chloride 10 ml 02/13/19 22:00 02/16/19 09:51 Sodium Chloride Flush Syringe 10 Ml IV 10 ml BID RAFAEL Administration Sodium Chloride 10 ml 02/13/19 18:03 Sodium Chloride Flush Syringe 10 Ml IV PRN PRN LINE FLUSH
[2019-02-17] MEDS: LOVENOX SUB-Q SCH ×2 (00:06→22:53)
[2019-02-17] MEDS: SODIUM CHLORIDE FLUSH SYRINGE 10 ML IV SCH ×3 (00:07→22:54)
[2019-02-17] MEDS: PROCARDIA XL PO SCH ×3 (00:07→22:53)
[2019-02-17] MEDS: LANTUS SUB-Q SCH ×2 (00:07→14:06)
[2019-02-17] MEDS: PERCOCET 5/325 PO PRN ×2 (00:12→23:06)
--- NOTE | 2019-02-17 00:12 | XRay Report ---
PROCEDURE: XR FOOT 3+V RT TECHNIQUE: Right foot radiographs, 3 views. HISTORY: Second toe gangrene. COMPARISONS: None available. FINDINGS: Decreased osseous mineralization. Multilevel degenerative changes are present. There is soft tissue swelling and subcutaneous gas present about the distal phalanx of the second toe . In addition, there is suggestive cortical indistinctness of the distal phalanx tuft. No aggressive periosteal reaction definitively identified. Moderate midfoot degenerative changes and soft tissue swelling about the forefoot and midfoot. Vascul ar stent in the anterior tibial artery and extensive atherosclerotic vascular calcifications present. IMPRESSION: Soft tissue swelling and gas about the second toe distal phalanx with mild demineralization suggestiv e of the tuft. Findings could represent soft tissue infection and early osteomyelitis. Correlation cl inical exam requested and if confirmation is necessary either short interval follow-up radiographs or MRI could further evaluate. This document is electronically signed by Sergo Acharya DO., February 17 2019 12:10:11 AM ET
[2019-02-17] MEDS: DILAUDID IV PRN ×2 (03:40→22:59)
[2019-02-17 04:21] LABS: Calcium 8.1 mg/dL (8.4-10.2)
[2019-02-17] MEDS: HumaLOG SUB-Q SCH ×7 (08:27→17:56)
--- NOTE | 2019-02-17 10:01 | Progress Note ---
Assessment and Plan - Patient Problems (1) GERALDINE (acute kidney injury) Current Visit: Yes Status: Acute Plan to address problem: Labs noted and overall renal function is stable. Will continue to monitor. (2) Encephalopathy acute Current Visit: Yes Status: Acute Plan to address problem: Improved at this time since admission, now back to her baseline, Will continue to monitor, (3) Hyperkalemia Current Visit: Yes Status: Acute Plan to address problem: In the setting of hyperglycemia/poorly controlled DM and GERALDINE. Agree with current medical management and primarily control of her hyperglycemia/diabetes. Maintain on low K diet. Will monitor, (4) Hyperosmolar non-ketotic state in patient with type 2 diabetes mellitus Current Visit: Yes Status: Acute Plan to address problem: Management per primary attending. (5) Hyponatremia Current Visit: Yes Status: Acute Plan to address problem: Likely in the setting of hyperglycemia. Will monitor. Encouraged patient to increase overall protein intake in her diet. (6) Sepsis Current Visit: Yes Status: Acute Qualifiers: Sepsis type: sepsis due to unspecified organism Qualified Code(s): A41.9 - Sepsis, unspecified organism Plan to address problem: Unclear etiology, possible underlying UTI vs right gangrenous toe, await culture results. Antibiotics to be dosed per her decreased renal clearance. She has no been placed on IV cefepime and ID evaluation reviewed. (7) Peripheral vascular disease Current Visit: Yes Status: Acute Plan to address problem: s/p fasciotomy in the setting of developing acute compartment syndrome post thrombolysis. Management per vascular surgery. Subjective Date of service: 02/17/19 Principal diagnosis: PVD with gangrene right toe, status post fasciotomies Interval history: No acute complaints. Labs noted, mild hyponatremia noted and expressed to patient that she needs to increase her overall protein intake. Glycemic control is improving. Renal function is stable. Objective - Vital Signs Vital signs: Vital Signs - 12hr 02/17/19 05:28 Temperature 97.3 F L Pulse Rate 84 Respiratory 20 Rate Blood Pressure 138/58 [Left] O2 Sat by Pulse 96 Oximetry - General Appearance General appearance: well-developed, well-nourished, appears stated age EENT: ATNC, PERRL Neck: no JVD, no thyromegaly Respiratory: Present: Clear to Ascultation Cardiology: regular, S1S2 Gastrointestinal: normal, normoactive bowel sounds Integumentary: no rash, warm and dry Neurologic: no focal deficit, no asterixis Musculoskeletal: other (-edema ) Psychiatric: mood/affect appropriate, cooperative - Lab 02/14/19 08:15 02/17/19 03:49 Most recent lab results Calcium 8.1 mg/dL (8.4-10.2) L 02/17/19 03:49 Phosphorus 3.10 mg/dL (2.5-4.5) 02/15/19 05:32 Magnesium 2.80 mg/dL (1.7-2.3) H 02/15/19 05:32 - Allied health notes Allied health notes reviewed: nursing Medications & Allergies - Medications Allergies/Adverse Reactions: Allergies No Known Allergies Allergy (Verified 01/28/19 21:26) Home Medications: Home Medications Medication Instructions Recorded Confirmed Last Taken Type HumuLIN 70-30 Vial 12 units SQ TID 01/28/19 02/16/19 02/13/19 20:00 History Aspirin [Low Dose Aspirin EC] 81 mg PO DAILY #30 tablet. 02/04/19 02/16/19 02/14/19 10:00 Rx Clopidogrel [Plavix] 75 mg PO QDAY #30 tablet 02/04/19 02/16/19 02/14/19 10:00 Rx HYDROcodone/APAP 5-325 [[place] 2 each PO Q6H PRN #14 tablet 02/04/19 02/16/19 02/08/19 10:00 Rx 5-325 mg TAB] Insulin Glargine [Lantus VIAL] 5 units SUB-Q QHS #30 units 02/04/19 02/16/19 02/13/19 20:00 Rx Valsartan [Diovan] 160 mg PO QDAY #30 tablet 02/04/19 02/16/19 02/13/19 10:00 Rx hydroCHLOROthiazide [HCTZ] 25 mg PO QDAY #30 tablet 02/04/19 02/16/19 02/12/19 10:00 Rx Active Medications: Generic Name Dose Route Start Last Admin Trade Name Freq PRN Reason Stop Dose Admin Acetaminophen 650 mg 02/13/19 18:03 Tylenol PO Q4H PRN Pain MILD(1-3)/Fever >100.5/MARTÍNEZ Aspirin 81 mg 02/14/19 10:00 02/16/19 09:51 Halfprin Ec PO 81 mg DAILY RAFAEL Administration Clopidogrel Bisulfate 75 mg 02/13/19 19:00 02/16/19 09:50 Plavix PO 75 mg QDAY RAFAEL Administration Dextrose 50 ml 02/14/19 14:03 D50w (25gm) Syringe IV PRN PRN Hypoglycemia Enoxaparin Sodium 30 mg 02/14/19 22:00 02/17/19 00:06 Lovenox SUB-Q 30 mg HS RAFAEL Administration Hydralazine HCl 10 mg 02/16/19 16:04 Apresoline IV Q4HR PRN BP >160/100 Hydromorphone HCl 0.5 mg 02/13/19 18:03 02/17/19 03:40 Dilaudid IV 0.5 mg Q3H PRN Administration Pain , Severe (7-10) Sodium Chloride 1,000 mls @ 100 mls/hr 02/13/19 19:00 Nacl 0.9% 1000 Ml IV DIRECT RAFAEL Ceftriaxone Sodium 2 gm in 100 mls @ 200 mls/hr 02/16/19 15:00 02/16/19 15:05 Rocephin/Ns 2 Gm/100 Ml IV 200 mls/hr Q24HR RAFAEL Administration Protocol Insulin Glargine 27 units 02/16/19 22:00 02/17/19 00:07 Lantus SUB-Q 27 units BID RAFAEL Administration Insulin Human Lispro 0 unit 02/14/19 16:30 02/17/19 08:27 Humalog SUB-Q Not Given ACHS [facility] Protocol Insulin Human Lispro 10 unit 02/15/19 11:43 02/17/19 08:30 Humalog SUB-Q 10 unit AC RAFAEL Administration Nifedipine 60 mg 02/16/19 22:00 02/17/19 00:07 Procardia Xl PO 60 mg Q12HR RAFAEL Administration Ondansetron HCl 4 mg 02/13/19 18:03 Zofran IV Q8H PRN Nausea And Vomiting Oxycodone/Acetaminophen 1 tab 02/13/19 18:03 02/17/19 00:12 Percocet 5/325 PO 1 tab Q6H PRN Administration Pain, Moderate (4-6) Sodium Chloride 10 ml 02/13/19 22:00 02/17/19 00:07 Sodium Chloride Flush Syringe 10 Ml IV 10 ml BID RAFAEL Administration Sodium Chloride 10 ml 03/16/19 18:03 Sodium Chloride Flush Syringe 10 Ml IV PRN PRN LINE FLUSH
--- NOTE | 2019-02-17 10:21 | Progress Note ---
Assessment and Plan Cultures: 02/13/2019 blood culture: E. coli, 4 out of 4 bottles 02/14/2019 urine culture: E. coli A/P: 58-year-old female with hypertension, diabetes mellitus type 2, peripheral vascular disease who was recently hospitalized from vascular surgery clinic due to right second toe gangrene. She underwent thrombolysis of the right lower extremity and underwent a stent placement. She developed compartment syndrome requiring fasciotomy on 01/29/2019 and then was discharged to a rehabilitation facility, admitted with: 1) Sepsis Resolved, secondary to gram-negative bacteremia: Source is unclear but possibly from right second toe gangrene , Likely urinary tract infection. Patient denies any urinary burning. Fasciotomy wounds appear to be healing well. 2) E. coli bacteremia: 4 out of 4 bottles, hobson susceptible. Will deescalate to Cefazolin. If clinically stable, anticipate change to PO antibiotics tomorrow. Repeat blood cultures to ensure clearance. 3) UTI: U/a shows Pyuria, WBC > 182 with large LE. Urine culture grew E.coli. 4) Acute kidney injury: Renal dose antibiotics. Nephrology following. 5) Peripheral vascular disease: Vascular surgery following. Right second toe i schemia and gangrene. 6) Diabetes mellitus type 2, uncontrolled. Recs: discontinue ceftiaxone 2 gms IV q 24 hours Follow-up blood and urine cultures start cefazolin 2gms IV q 8, total D4 Anticipate change to PO antibiotics tomorrow if clinically stable CBC ordered for tomorrow [facility] M: [phone] O:[phone] Subjective Date of service: 02/17/19 Principal diagnosis: PVD with gangrene right toe, status post fasciotomies Interval history: Patient seen and examined. Sitting up in bed, reports no acute distress, generalized weakness. Objective - Exam Narrative Exam: Constitutional: Alert, cooperative. No acute distress Head, Ears, Nose: Normocephalic, atraumatic. External ears, nose normal Eyes: Conjunctivae/corneas clear. No icterus. No ptosis. Neck: Supple, no meningeal signs Oral: dentition fair, no thrush Cardiovascular: S1, S2 normal. Respiratory: Good air entry, clear to auscultation bilaterally GI: Soft, non-tender; bowel sounds normal. No peritoneal signs. No CVA or suprapubic tenderness Musculoskeletal: No pedal edema, no cyanosis. Right second toe with blackish discoloration, multiple right calf fasciotomy wounds with dressing Skin: No rash or abscess Hem/Lymphatic: No palpable cervical or supraclavicular nodes. No lymphangitis Psych: Mood ok. Affect normal Neurological: Awake, alert, oriented. No gross abnormality - Constitutional Vitals: Vital Signs Temp Pulse Resp BP Pulse Ox 97.3 F L 84 20 138/58 96 02/17/19 05:28 02/17/19 05:28 02/17/19 05:28 02/17/19 05:28 02/17/19 05:28 Temperature -Last 24 Hours Temperature 97.3 F Temperature 99.0 F Temperature 98.3 F - Labs CBC & Chem 7: 02/17/19 10:41 02/17/19 03:49 Labs: Abnormal lab results 02/16/19 02/16/19 02/16/19 Range/Units 11:55 16:20 22:38 Sodium 131 L (137-145) mmol/L Potassium (3.6-5.0) mmol/L Chloride 95.7 L (98-107) mmol/L Carbon Dioxide 21 L (22-30) mmol/L BUN 70 H (7-17) mg/dL Creatinine 1.3 H (0.7-1.2) mg/dL Glucose 121 H (65-100) mg/dL POC Glucose 313 H 146 H (70-105) Calcium 8.0 L (8.4-10.2) mg/dL 02/17/19 02/17/19 02/17/19 Range/Units 00:15 03:49 07:32 Sodium 129 L (137-145) mmol/L Potassium 5.2 H D (3.6-5.0) mmol/L Chloride 95.9 L (98-107) mmol/L Carbon Dioxide 18 L (22-30) mmol/L BUN 69 H (7-17) mg/dL Creatinine 1.4 H (0.7-1.2) mg/dL Glucose (65-100) mg/dL POC Glucose 125 H 146 H (70-105) Calcium 8.1 L (8.4-10.2) mg/dL
[2019-02-17] MEDS: PLAVIX PO SCH (11:08)
[2019-02-17] MEDS: HALFPRIN EC PO SCH (11:08)
[2019-02-17 11:25] LABS: Hematocrit 24.6 % (30.3-42.9); Hemoglobin 8.2 gm/dl (10.1-14.3); Mean Corpuscular HGB Conc 33 % (30-34); Mean Corpuscular Volume 84 fl (79-97); Platelet Count 405 K/mm3 (140-440); Red Blood Count 2.92 M/mm3 (3.65-5.03); Red Cell Distribution Width 16.2 % (13.2-15.2)
[2019-02-17] MEDS: ROCEPHIN/NS 2 GM/100 ML 2 GM/100 ML BAG IV SCH (12:30)
[2019-02-17 13:50] LABS: Myelocytes # (Manual) 0.1 K/mm3; Total Cells Counted 100
[2019-02-17 13:51] LABS: Basophils % (Manual) 0 % (0.0-1.8)
[2019-02-17 13:52] LABS: Giant Platelets Rare; Hypochromasia Few; Ovalocytes Few; Platelet Estimate Consistent w Auto
--- NOTE | 2019-02-17 15:54 | Progress Note ---
Assessment and Plan 58-year-old female with presentation for sepsis from urinary tract infection with right second digit gangrene and eschar associated with wound bed. PVD managed by Dr. Gonsales whom attempted to treat the patient as an outpatient requiring inpatient admission, thrombolysis and fasciotomy. [facility] was contacted for fasciotomy assistance/management. Currently, plan for debridement in the operating room on Friday. Patient will follow up at wound care center. Consider consulting Dr. Gonsales for PVD management and 2nd digit gangrene management. He may have plans for outpatient or inpatient 2nd digit amputation w ith referring client technical support associate. Subjective Date of service: 02/17/19 Principal diagnosis: PVD with gangrene right toe, status post fasciotomies Interval history: Palpable right dorsalis pedis pulse. The wound VAC could not be placed due to underlying necrotic tissue and some bulging of the underlying tissue. Discussed with patient. Plan for debridement on Friday with possible wound VAC placement. Will need follow-up with wound care. Discussed with Karlee wound care nurse. Objective - Constitutional Vitals: Vital Signs - 12hr 02/17/19 02/17/19 05:28 11:08 Temperature 97.3 F L 98.1 F Pulse Rate 84 92 H Respiratory 20 22 Rate Blood Pressure 129/60 Blood Pressure 138/58 [Left] O2 Sat by Pulse 96 96 Oximetry General appearance: Present: no acute distress - EENT Eyes: EOM intact ENT: hearing intact - Respiratory Respiratory effort: normal Extremities: pulses intact (right dorsalis pedis palpable), normal temperature, normal color - Psychiatric Psychiatric: appropriate mood/affect, cooperative - Labs CBC & Chem 7: 02/17/19 10:41 02/17/19 03:49 Labs: Abnormal lab results 02/16/19 02/16/19 02/17/19 Range/Units 16:20 22:38 00:15 WBC (4.5-11.0) K/mm3 RBC (3.65-5.03) M/mm3 Hgb (10.1-14.3) gm/dl Hct (30.3-42.9) % RDW (13.2-15.2) % Seg Neuts % (Manual) (40.0-70.0) % Lymphocytes % (Manual) (13.4-35.0) % Seg Neutrophils # Man (1.8-7.7) K/mm3 Lymphocytes # (Manual) (1.2-5.4) K/mm3 Sodium 131 L (137-145) mmol/L Potassium (3.6-5.0) mmol/L Chloride 95.7 L (98-107) mmol/L Carbon Dioxide 21 L (22-30) mmol/L BUN 70 H (7-17) mg/dL Creatinine 1.3 H (0.7-1.2) mg/dL Glucose 121 H (65-100) mg/dL POC Glucose 146 H 125 H (70-105) Calcium 8.0 L (8.4-10.2) mg/dL 02/17/19 02/17/19 02/17/19 Range/Units 03:49 07:32 10:41 WBC 13.3 H (4.5-11.0) K/mm3 RBC 2.92 L (3.65-5.03) M/mm3 Hgb 8.2 L (10.1-14.3) gm/dl Hct 24.6 L (30.3-42.9) % RDW 16.2 H (13.2-15.2) % Seg Neuts % (Manual) 85.0 H (40.0-70.0) % Lymphocytes % (Manual) 8.0 L (13.4-35.0) % Seg Neutrophils # Man 11.3 H (1.8-7.7) K/mm3 Lymphocytes # (Manual) 1.1 L (1.2-5.4) K/mm3 Sodium 129 L (137-145) mmol/L Potassium 5.2 H D (3.6-5.0) mmol/L Chloride 95.9 L (98-107) mmol/L Carbon Dioxide 18 L (22-30) mmol/L BUN 69 H (7-17) mg/dL Creatinine 1.4 H (0.7-1.2) mg/dL Glucose (65-100) mg/dL POC Glucose 146 H (70-105) Calcium 8.1 L (8.4-10.2) mg/dL 02/17/19 Range/Units 11:14 WBC (4.5-11.0) K/mm3 RBC (3.65-5.03) M/mm3 Hgb (10.1-14.3) gm/dl Hct (30.3-42.9) % RDW (13.2-15.2) % Seg Neuts % (Manual) (40.0-70.0) % Lymphocytes % (Manual) (13.4-35.0) % Seg Neutrophils # Man (1.8-7.7) K/mm3 Lymphocytes # (Manual) (1.2-5.4) K/mm3 Sodium (137-145) mmol/L Potassium (3.6-5.0) mmol/L Chloride (98-107) mmol/L Carbon Dioxide (22-30) mmol/L BUN (7-17) mg/dL Creatinine (0.7-1.2) mg/dL Glucose (65-100) mg/dL POC Glucose 219 H (70-105) Calcium (8.4-10.2) mg/dL Medications & Allergies - Medications Allergies/Adverse Reactions: Allergies No Known Allergies Allergy (Verified 01/28/19 21:26) Home Medications: Home Medications Medication Instructions Recorded Confirmed Last Taken Type HumuLIN 70-30 Vial 12 units SQ TID 01/28/19 02/16/19 02/13/19 20:00 History Aspirin [Low Dose Aspirin EC] 81 mg PO DAILY #30 tablet. 02/04/19 02/16/19 02/14/19 10:00 Rx Clopidogrel [Plavix] 75 mg PO QDAY #30 tablet 02/04/19 02/16/19 02/14/19 10:00 Rx HYDROcodone/APAP 5-325 [[place] 2 each PO Q6H PRN #14 tablet 02/04/19 02/16/19 0 02/08/19 10:00 Rx 5-325 mg TAB] Insulin Glargine [Lantus VIAL] 5 units SUB-Q QHS #30 units 02/04/19 02/16/19 02/13/19 20:00 Rx Valsartan [Diovan] 160 mg PO QDAY #30 tablet 02/04/19 02/16/19 02/13/19 10:00 Rx hydroCHLOROthiazide [HCTZ] 25 mg PO QDAY #30 tablet 02/04/19 02/16/19 02/12/19 10:00 Rx Active Medications: Generic Name Dose Route Start Last Admin Trade Name Freq PRN Reason Stop Dose Admin Acetaminophen 650 mg 02/13/19 18:03 Tylenol PO Q4H PRN Pain MILD(1-3)/Fever >100.5/MARTÍNEZ Aspirin 81 mg 02/14/19 10:00 02/17/19 11:08 Halfprin Ec PO 81 mg DAILY RAFAEL Administration Clopidogrel Bisulfate 75 mg 02/13/19 19:00 02/17/19 11:08 Plavix PO 75 mg QDAY RAFAEL Administration Dextrose 50 ml 02/14/19 14:03 D50w (25gm) Syringe IV PRN PRN Hypoglycemia Enoxaparin Sodium 40 mg 02/17/19 22:00 Lovenox SUB-Q QHS RAFAEL Hydralazine HCl 10 mg 02/16/19 16:04 Apresoline IV Q4HR PRN BP >160/100 Hydromorphone HCl 0.5 mg 02/13/19 18:03 02/17/19 03:40 Dilaudid IV 0.5 mg Q3H PRN Administration Pain , Severe (7-10) Sodium Chloride 1,000 mls @ 100 mls/hr 02/13/19 19:00 Nacl 0.9% 1000 Ml IV DIRECT [facility] Cefazolin Sodium 2 gm/ Sodium 100 mls @ 200 mls/hr 02/17/19 16:00 Chloride IV Q8H [facility] Protocol Insulin Glargine 27 units 02/16/19 22:00 02/17/19 14:06 Lantus SUB-Q 27 units BID RAFAEL Administration Insulin Human Lispro 0 unit 02/14/19 16:30 02/17/19 12:30 Humalog SUB-Q 4 unit ACHS [facility] Administration Protocol Insulin Human Lispro 10 unit 02/15/19 11:43 02/17/19 12:30 Humalog SUB-Q 10 unit AC RAFAEL Administration Nifedipine 60 mg 02/16/19 22:00 02/17/19 11:12 Procardia Xl PO 60 mg Q12HR [facility] Administration Ondansetron HCl 4 mg 02/13/19 18:03 Zofran IV Q8H PRN Nausea And Vomiting Oxycodone/Acetaminophen 1 tab 02/13/19 18:03 02/17/19 00:12 Percocet 5/325 PO 1 tab Q6H PRN Administration Pain, Moderate (4-6) Sodium Chloride 10 ml 02/13/19 22:00 02/17/19 11:10 Sodium Chloride Flush Syringe 10 Ml IV 10 ml BID RAFAEL Administration Sodium Chloride 10 ml 02/13/19 18:03 Sodium Chloride Flush Syringe 10 Ml IV PRN PRN LINE FLUSH
[2019-02-17] MEDS: ceFAZolin 2 GM in NACL 0.9% 100 ML IV SCH (17:56)
--- NOTE | 2019-02-17 17:59 | Progress Note ---
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 CT head; no acute findings CXR no acute findings Labs; UA > 182 WBC Diagnosis sepsis, ecoli Bactermia and Ecoli UTI anemia, likely due to chronic disease HHNK, Type 2 DM, A1c 9 Hyponatremia, likely pseudohyponatremia of hyperglycemia Hyperkalemia GERALDINE- likely ATN Hypomagesemia- resolved PAD hx of RLE ischemia, sp thrombolysis, revascularization and fascitomy Rhabdomylsis, non traumatic acute metabolic enncephalopathy Plan empiric abx, fup blood and urine cx, ID consult appreciated optimize insulins and BP meds, IVF, renal US, nephrology consult appreciated, Cr improving Mg was repleted, Kayexalate today vascular consult appreciated, "Currently, plan for debridement in the operating room on Friday. Patient will follow up at wound care center. Consider consulting Dr. Gonsales for PVD management and 2nd digit gangrene management. He may have plans for outpatient or inpatient 2nd digit amputation with referring copy writer" DVT ppx- chemical Dispo; back to SNF History Interval history: Review of systems Constitutional: No fevers, no malaise, no joint pains CVS: No chest pain, no orthopnea, no dyspnea on exertion, no pedal edema GI: No abdominal pain, no diarrhea, no vomiting, no constipation Respiratory: No shortness of breath, no wheezing, no coughing Hospitalist Physical - Physical exam Narrative exam: General.: Appears well, no distress, nontoxic HEENT: Moist mucous membranes, extraocular muscles intact, no lymphadenopathy Neck: supple Cardiac: S1-S2 heard Lungs: clear to auscultation bilaterally Abdomen: soft , nontender, nondistended, bowel sounds positive Extremities: ; R second toe dry gangrene R leg open wound- large, from fasciotomy Skin: no rash or lesions Neurologic: no gross focal deficits Psych: calm, and cooperative - Constitutional Vitals: Temp Pulse Resp BP Pulse Ox 98.4 F 95 H 22 151/74 97 02/17/19 17:20 02/17/19 17:20 02/17/19 17:20 02/17/19 17:20 02/17/19 17:20 General appearance: Present: no acute distress Results - Labs CBC & Chem 7: 02/17/19 10:41 02/17/19 03:49 Labs: Laboratory Last Values WBC 13.3 K/mm3 (4.5-11.0) H 02/17/19 10:41 RBC 2.92 M/mm3 (3.65-5.03) L 02/17/19 10:41 Hgb 8.2 gm/dl (10.1-14.3) L 02/17/19 10:41 Hct 24.6 % (30.3-42.9) L 02/17/19 10:41 MCV 84 fl (79-97) 02/17/19 10:41 MCH 28 pg (28-32) 02/17/19 10:41 MCHC 33 % (30-34) 02/17/19 10:41 RDW 16.2 % (13.2-15.2) H 02/17/19 10:41 Plt Count 405 K/mm3 (140-440) 02/17/19 10:41 Lymph % (Auto) Insulation Board Head Saw Operator 02/17/19 10:41 [place] % (Auto) Insulation Board Head Saw Operator 02/17/19 10:41 Eos % (Auto) Insulation Board Head Saw Operator 02/17/19 10:41 Baso % (Auto) Insulation Board Head Saw Operator 02/17/19 10:41 Lymph # Insulation Board Head Saw Operator 02/17/19 10:41 [place] # Insulation Board Head Saw Operator 02/17/19 10:41 Eos # Insulation Board Head Saw Operator 02/17/19 10:41 Baso # Insulation Board Head Saw Operator 02/17/19 10:41 Add Manual Diff Complete 02/17/19 10:41 Total Counted 100 02/17/19 10:41 Seg Neutrophils % Insulation Board Head Saw Operator 02/17/19 10:41 Seg Neuts % (Manual) 85.0 % (40.0-70.0) H 02/17/19 10:41 Band Neutrophils % 0 % 02/17/19 10:41 Lymphocytes % (Manual) 8.0 % (13.4-35.0) L 02/17/19 10:41 Reactive Lymphs % (Man) 0 % 02/17/19 10:41 Monocytes % (Manual) 4.0 % (0.0-7.3) 02/17/19 10:41 Eosinophils % (Manual) 2.0 % (0.0-4.3) 02/17/19 10:41 Basophils % (Manual) 0 % (0.0-1.8) 02/17/19 10:41 Metamyelocytes % 0 % 02/17/19 10:41 Myelocytes % 1.0 % 02/17/19 10:41 Promyelocytes % 0 % 02/17/19 10:41 Blast Cells % 0 % 02/17/19 10:41 Nucleated RBC % Not Reportable 02/17/19 10:41 Seg Neutrophils # Insulation Board Head Saw Operator 02/17/19 10:41 Seg Neutrophils # Man 11.3 K/mm3 (1.8-7.7) H 02/17/19 10:41 Band Neutrophils # 0.0 K/mm3 02/17/19 10:41 Lymphocytes # (Manual) 1.1 K/mm3 (1.2-5.4) L 02/17/19 10:41 Abs React Lymphs (Man) 0.0 K/mm3 02/17/19 10:41 Monocytes # (Manual) 0.5 K/mm3 (0.0-0.8) 02/17/19 10:41 Eosinophils # (Manual) 0.3 K/mm3 (0.0-0.4) 02/17/19 10:41 Basophils # (Manual) 0.0 K/mm3 (0.0-0.1) 02/17/19 10:41 Metamyelocytes # 0.0 K/mm3 02/17/19 10:41 Myelocytes # 0.1 K/mm3 02/17/19 10:41 Promyelocytes # 0.0 K/mm3 02/17/19 10:41 Blast Cells # 0.0 K/mm3 02/17/19 10:41 WBC Morphology Not Reportable 02/17/19 10:41 Hypersegmented Neuts Not Reportable 02/17/19 10:41 Hyposegmented Neuts Not Reportable 02/17/19 10:41 Hypogranular Neuts Not Reportable 02/17/19 10:41 Smudge Cells Not Reportable 02/17/19 10:41 Toxic Granulation Not Reportable 02/17/19 10:41 Toxic Vacuolation Not Reportable 02/17/19 10:41 Dohle Bodies Not Reportable 02/17/19 10:41 Pelger-Huet Anomaly Not Reportable 02/17/19 10:41 Cisco Rods Not Reportable 02/17/19 10:41 Platelet Estimate Consistent w auto 02/17/19 10:41 Clumped Platelets Not Reportable 02/17/19 10:41 Plt Clumps, EDTA Not Reportable 02/17/19 10:41 Large Platelets Not Reportable 02/17/19 10:41 Giant Platelets Rare 02/17/19 10:41 Platelet Satelliting Not Reportable 02/17/19 10:41 Plt Morphology Comment Not Reportable 02/17/19 10:41 RBC Morphology Not Reportable 02/17/19 10:41 Dimorphic RBCs Not Reportable 02/17/19 10:41 Polychromasia Few 02/17/19 10:41 Hypochromasia Few 02/17/19 10:41 Poikilocytosis Not Reportable 02/17/19 10:41 Anisocytosis Not Reportable 02/17/19 10:41 Microcytosis Not Reportable 02/17/19 10:41 Macrocytosis Not Reportable 02/17/19 10:41 Spherocytes Not Reportable 02/17/19 10:41 Pappenheimer Bodies Not Reportable 02/17/19 10:41 Sickle Cells Not Reportable 02/17/19 10:41 Target Cells Not Reportable 02/17/19 10:41 Tear Drop Cells Not Reportable 02/17/19 10:41 Ovalocytes Few 02/17/19 10:41 Helmet Cells Not Reportable 02/17/19 10:[address] [place] Bodies Not Reportable 02/17/19 10:41 [place] Rings Not Reportable 02/17/19 10:41 V[place]ul Cells Not Reportable 02/17/19 10:41 Bite Cells Not Reportable 02/17/19 10:41 Crenated Cell Not Reportable 02/17/19 10:41 Elliptocytes Not Reportable 02/17/19 10:41 Acanthocytes (Spur) Not Reportable 02/17/19 10:41 Rouleaux Not Reportable 02/17/19 10:41 Hemoglobin C Crystals Not Reportable 02/17/19 10:41 Schistocytes Not Reportable 02/17/19 10:41 Malaria parasites Not Reportable 02/17/19 10:41 [place] Bodies Not Reportable 02/17/19 10:41 Hem Pathologist Commnt No 02/17/19 10:41 PT 15.6 Sec. (12.2-14.9) H 02/13/19 14:15 INR 1.17 (0.87-1.13) H 02/13/19 14:15 APTT 26.6 Sec. (24.2-36.6) 02/13/19 14:15 VBG pH 7.379 (7.320-7.420) 02/13/19 14:08 Sodium 129 mmol/L (137-145) L 02/17/19 03:49 Potassium 5.2 mmol/L (3.6-5.0) H D 02/17/19 03:49 Chloride 95.9 mmol/L (98-107) L 02/17/19 03:49 Carbon Dioxide 18 mmol/L (22-30) L 02/17/19 03:49 Anion Gap 20 mmol/L 02/17/19 03:49 BUN 69 mg/dL (7-17) H 02/17/19 03:49 Creatinine 1.4 mg/dL (0.7-1.2) H 02/17/19 03:49 Estimated GFR 47 ml/min 02/17/19 03:49 BUN/Creatinine Ratio 49 % 02/17/19 03:49 Glucose 82 mg/dL (65-100) 02/17/19 03:49 POC Glucose 176 (70-105) H 02/17/19 16:18 Hemoglobin A1c 9.2 % (4-6) H 02/13/19 18:15 Ketones Quantitative Negative (Negative) 02/13/19 14:08 Calcium 8.1 mg/dL (8.4-10.2) L 02/17/19 03:49 Phosphorus 3.10 mg/dL (2.5-4.5) 02/15/19 05:32 Magnesium 2.80 mg/dL (1.7-2.3) H 02/15/19 05:32 Total Bilirubin 1.60 mg/dL (0.1-1.2) H 02/14/19 08:15 Direct Bilirubin 1.1 mg/dL (0-0.2) H 02/13/19 14:08 Indirect Bilirubin 0.4 mg/dL 02/13/19 14:08 AST 47 units/L (5-40) H 02/14/19 08:15 ALT 33 units/L (7-56) 02/14/19 08:15 Alkaline Phosphatase 218 units/L (35-129) H 02/14/19 08:15 Ammonia 40.0 umol/L (25-60) 02/13/19 14:15 Total Creatine Kinase 124 units/L (30-135) 02/17/19 03:49 CK-MB (CK-2) 3.6 ng/mL (0.0-4.0) 02/13/19 14:20 CK-MB (CK-2) Rel Index 0.2 (0-4) 02/13/19 14:20 Troponin T 0.072 ng/mL (0.00-0.029) H 02/13/19 14:20 NT-Pro-B Natriuret Pep 6167 pg/mL (0-900) H 02/13/19 14:15 Total Protein 6.2 g/dL (6.3-8.2) L 02/14/19 08:15 Albumin 2.2 g/dL (3.9-5) L 02/14/19 08:15 Albumin/Globulin Ratio 0.6 % 02/14/19 08:15 Triglycerides 329 mg/dL (2-149) H 02/13/19 14:20 Cholesterol 159 mg/dL (50-199) 02/13/19 14:20 LDL Cholesterol Direct 36 mg/dL (50-130) L 02/13/19 14:20 HDL Cholesterol 17 mg/dL (40-59) L 02/13/19 14:20 Cholesterol/HDL Ratio 9.35 % 02/13/19 14:20 Urine Color Steffi (Yellow) 02/14/19 09:07 Urine Turbidity Cloudy (Clear) 02/14/19 09:07 Urine pH 5.0 (5.0-7.0) 02/14/19 09:07 Ur Specific [place] 1.013 (1.003-1.030) 02/14/19 09:07 Urine Protein 100 mg/dl mg/dL (Negative) 02/14/19 09:07 Urine Glucose (UA) 50 mg/dL (Negative) 02/14/19 09:07 Urine Ketones Neg mg/dL (Negative) 02/14/19 09:07 Urine Blood Lg (Negative) 02/14/19 09:07 Urine Nitrite Neg (Negative) 02/14/19 09:07 Urine Bilirubin Neg (Negative) 02/14/19 09:07 Urine Urobilinogen 2.0 mg/dL (<2.0) 02/14/19 09:07 Ur Leukocyte Esterase Lg (Negative) 02/14/19 09:07 Urine WBC (Auto) > 182.0 /HPF (0.0-6.0) H 02/14/19 09:07 Urine RBC (Auto) 9.0 /HPF (0.0-6.0) 02/14/19 09:07 U Epithel Cells (Auto) 1.0 /HPF (0-13.0) 02/14/19 09:07 Urine Bacteria (Auto) 4+ /HPF (Negative) 02/14/19 09:07 Urine WBC Clumps 3+ /HPF 02/14/19 09:07 Ur Transition Epith Cell 1 /HPF 02/14/19 09:07 Urine Mucus Few /HPF 02/14/19 09:07 Vancomycin Trough 14.5 ug/mL (5.0-20.0) 02/15/19 05:32 Urine Opiates Screen Presumptive negative 02/14/19 09:07 Urine Methadone Screen Presumptive negative 02/14/19 09:07 Ur Barbiturates Screen Presumptive negative 02/14/19 09:07 Ur Phencyclidine Scrn Presumptive negative 02/14/19 09:07 Ur Amphetamines Screen Presumptive negative 02/14/19 09:07 U Benzodiazepines Scrn Presumptive negative 02/14/19 09:07 Urine Cocaine Screen Presumptive negative 02/14/19 09:07 U Marijuana (THC) Screen Presumptive negative 02/14/19 09:07 Drugs of Abuse Note Disclamer 02/14/19 09:07 Blood Type B POSITIVE 02/13/19 14:15 Antibody Screen Negative 02/13/19 14:15 Active Medications - Current Medications Current Medications: Generic Name Dose Route Start Last Admin Trade Name Freq PRN Reason Stop Dose Admin Acetaminophen 650 mg 02/13/19 18:03 Tylenol PO Q4H PRN Pain MILD(1-3)/Fever >100.5/MARTÍNEZ Aspirin 81 mg 02/14/19 10:00 02/17/19 11:08 Halfprin Ec PO 81 mg DAILY RAFAEL Administration Clopidogrel Bisulfate 75 mg 02/13/19 19:00 02/17/19 11:08 Plavix PO 75 mg QDAY RAFAEL Administration Dextrose 50 ml 02/14/19 14:03 D50w (25gm) Syringe IV PRN PRN Hypoglycemia Enoxaparin Sodium 40 mg 02/17/19 22:00 Lovenox SUB-Q QHS RAFAEL Hydralazine HCl 10 mg 02/16/19 16:04 Apresoline IV Q4HR PRN BP >160/100 Hydromorphone HCl 0.5 mg 02/13/19 18:03 02/17/19 03:40 Dilaudid IV 0.5 mg Q3H PRN Administration Pain , Severe (7-10) Sodium Chloride 1,000 mls @ 100 mls/hr 02/13/19 19:00 Nacl 0.9% 1000 Ml IV DIRECT RAFAEL Cefazolin Sodium 2 gm/ Sodium 100 mls @ 200 mls/hr 02/17/19 16:00 Chloride IV Q8H [facility] Protocol Insulin Glargine 27 units 02/16/19 22:00 02/17/19 14:06 Lantus SUB-Q 27 units BID RAFAEL Administration Insulin Human Lispro 0 unit 02/14/19 16:30 02/17/19 12:30 Humalog SUB-Q 4 unit ACHS [facility] Administration Protocol Insulin Human Lispro 10 unit 02/15/19 11:43 02/17/19 12:30 Humalog SUB-Q 10 unit AC RAFAEL Administration Nifedipine 60 mg 02/16/19 22:00 02/17/19 11:12 Procardia Xl PO 60 mg Q12HR RAFAEL Administration Ondansetron HCl 4 mg 02/13/19 18:03 Zofran IV Q8H PRN Nausea And Vomiting Oxycodone/Acetaminophen 1 tab 02/13/19 18:03 02/17/19 00:12 Percocet 5/325 PO 1 tab Q6H PRN Administration Pain, Moderate (4-6) Sodium Chloride 10 ml 02/13/19 22:00 02/17/19 11:10 Sodium Chloride Flush Syringe 10 Ml IV 10 ml BID RAFAEL Administration Sodium Chloride 10 ml 02/13/19 18:03 Sodium Chloride Flush Syringe 10 Ml IV PRN PRN LINE FLUSH Sodium Polystyrene Sulfonate 15 gm 02/17/19 18:00 Kionex PO 02/17/19 18:01 ONCE ONE
[2019-02-17] MEDS ORDERED: KIONEX PO ONE (18:00)
[2019-02-18] MEDS: HumaLOG SUB-Q SCH ×9 (00:44→23:00)
[2019-02-18] MEDS: LANTUS SUB-Q SCH ×3 (00:46→23:00)
[2019-02-18 01:28] LABS: Hematocrit 21.7 % (30.3-42.9); Hemoglobin 7.1 gm/dl (10.1-14.3); Mean Corpuscular HGB Conc 33 % (30-34); Mean Corpuscular Volume 86 fl (79-97); Platelet Count 403 K/mm3 (140-440); Red Blood Count 2.53 M/mm3 (3.65-5.03); Red Cell Distribution Width 16.6 % (13.2-15.2)
[2019-02-18] MEDS: ceFAZolin 2 GM in NACL 0.9% 100 ML IV SCH ×3 (02:25→19:38)
[2019-02-18] MEDS: DILAUDID IV PRN ×2 (02:51→23:10)
[2019-02-18 05:21] LABS: BUN/Creatinine Ratio 48; Blood Urea Nitrogen 53 mg/dL (7-17); Calcium 7.8 mg/dL (8.4-10.2); Hemolysis Index 4
[2019-02-18 06:33] LABS: Band Neutrophils # (Manual) 1.3 K/mm3; Basophils % (Manual) 0 % (0.0-1.8); Eosinophils % (Manual) 0 % (0.0-4.3); Total Cells Counted 100
[2019-02-18 06:34] LABS: Hypochromasia Few; Large Platelets Rare; Spherocytes Rare
--- NOTE | 2019-02-18 09:47 | Progress Note ---
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 CT head; no acute findings CXR no acute findings Labs; UA > 182 WBC Diagnosis sepsis, ecoli Bactermia and Ecoli UTI anemia, likely due to chronic disease HHNK, Type 2 DM, A1c 9 Hyponatremia, likely pseudohyponatremia of hyperglycemia Hyperkalemia GERALDINE- likely ATN Hypomagesemia- resolved PAD hx of RLE ischemia, sp thrombolysis, revascularization and fascitomy Rhabdomylsis, non traumatic acute metabolic enncephalopathy Plan empiric abx, fup blood and urine cx, ID consult appreciated optimize insulins and BP meds, IVF, renal US, nephrology consult appreciated, Cr improving Mg was repleted, Kayexalate given on 02/17, 1 unit prbc given on 02/18 vascular consult appreciated, "Currently, plan for debridement in the operating room on Friday. Patient will follow up at wound care center. Consider consulting Dr. Gonsales for PVD management and 2nd digit gangrene management. He may have plans for outpatient or inpatient 2nd digit amputation with r samira key maker" DVT ppx- chemical Dispo; back to SNF History Interval history: Review of systems Constitutional: No fevers, no malaise, no joint pains CVS: No chest pain, no orthopnea, no dyspnea on exertion, no pedal edema GI: No abdominal pain, no diarrhea, no vomiting, no constipation Respiratory: No shortness of breath, no wheezing, no coughing Hospitalist Physical - Physical exam Narrative exam: General.: Appears well, no distress, nontoxic HEENT: Moist mucous membranes, extraocular muscles intact, no lymphadenopathy Neck: supple Cardiac: S1-S2 heard Lungs: clear to auscultation bilaterally Abdomen: soft , nontender, nondistended, bowel sounds positive Extremities: ; R second toe dry gangrene R leg open wound- large, from fasciotomy Skin: no rash or lesions Neurologic: no gross focal deficits Psych: calm, and cooperative - Constitutional Vitals: Temp Pulse Resp BP Pulse Ox 97.9 F 81 20 147/62 97 02/18/19 05:49 02/18/19 05:49 02/18/19 05:49 02/18/19 05:49 02/18/19 05:49 General appearance: Present: no acute distress Results - Labs CBC & Chem 7: 02/18/19 01:14 02/18/19 04:25 Labs: Laboratory Last Values WBC 14.6 K/mm3 (4.5-11.0) H 02/18/19 01:14 RBC 2.53 M/mm3 (3.65-5.03) L 02/18/19 01:14 Hgb 7.1 gm/dl (10.1-14.3) L 02/18/19 01:14 Hct 21.7 % (30.3-42.9) L 02/18/19 01:14 MCV 86 fl (79-97) 02/18/19 01:14 MCH 28 pg (28-32) 02/18/19 01:14 MCHC 33 % (30-34) 02/18/19 01:14 RDW 16.6 % (13.2-15.2) H 02/18/19 01:14 Plt Count 403 K/mm3 (140-440) 02/18/19 01:14 Lymph % (Auto) Mechanical Equipment Test Engineer 02/17/19 10:41 Amelia % (Auto) Mechanical Equipment Test Engineer 02/17/19 10:41 Eos % (Auto) Mechanical Equipment Test Engineer 02/17/19 10:41 Baso % (Auto) Mechanical Equipment Test Engineer 02/17/19 10:41 Lymph # Mechanical Equipment Test Engineer 02/17/19 10:41 Amelia # Mechanical Equipment Test Engineer 02/17/19 10:41 Eos # Mechanical Equipment Test Engineer 02/17/19 10:41 Baso # Mechanical Equipment Test Engineer 02/17/19 10:41 Add Manual Diff Complete 02/18/19 01:14 Total Counted 100 02/18/19 01:14 Seg Neutrophils % Mechanical Equipment Test Engineer 02/17/19 10:41 Seg Neuts % (Manual) 72.0 % (40.0-70.0) H 02/18/19 01:14 Band Neutrophils % 9.0 % 02/18/19 01:14 Lymphocytes % (Manual) 8.0 % (13.4-35.0) L 02/18/19 01:14 Reactive Lymphs % (Man) 0 % 02/18/19 01:14 Monocytes % (Manual) 11.0 % (0.0-7.3) H 02/18/19 01:14 Eosinophils % (Manual) 0 % (0.0-4.3) 02/18/19 01:14 Basophils % (Manual) 0 % (0.0-1.8) 02/18/19 01:14 Metamyelocytes % 0 % 02/18/19 01:14 Myelocytes % 0 % 02/18/19 01:14 Promyelocytes % 0 % 02/18/19 01:14 Blast Cells % 0 % 02/18/19 01:14 Nucleated RBC % Not Reportable 02/18/19 01:14 Seg Neutrophils # Mechanical Equipment Test Engineer 02/17/19 10:41 Seg Neutrophils # Man 10.5 K/mm3 (1.8-7.7) H 02/18/19 01:14 Band Neutrophils # 1.3 K/mm3 02/18/19 01:14 Lymphocytes # (Manual) 1.2 K/mm3 (1.2-5.4) 02/18/19 01:14 Abs React Lymphs (Man) 0.0 K/mm3 02/18/19 01:14 Monocytes # (Manual) 1.6 K/mm3 (0.0-0.8) H 02/18/19 01:14 Eosinophils # (Manual) 0.0 K/mm3 (0.0-0.4) 02/18/19 01:14 Basophils # (Manual) 0.0 K/mm3 (0.0-0.1) 02/18/19 01:14 Metamyelocytes # 0.0 K/mm3 02/18/19 01:14 Myelocytes # 0.0 K/mm3 02/18/19 01:14 Promyelocytes # 0.0 K/mm3 02/18/19 01:14 Blast Cells # 0.0 K/mm3 02/18/19 01:14 WBC Morphology Not Reportable 02/18/19 01:14 Hypersegmented Neuts Not Reportable 02/18/19 01:14 Hyposegmented Neuts Not Reportable 02/18/19 01:14 Hypogranular Neuts Not Reportable 02/18/19 01:14 Smudge Cells Not Reportable 02/18/19 01:14 Toxic Granulation Not Reportable 02/18/19 01:14 Toxic Vacuolation Not Reportable 02/18/19 01:14 Dohle Bodies Not Reportable 02/18/19 01:14 Pelger-Huet Anomaly Not Reportable 02/18/19 01:14 Cisco Rods Not Reportable 02/18/19 01:14 Platelet Estimate Appears normal 02/18/19 01:14 Clumped Platelets Not Reportable 02/18/19 01:14 Plt Clumps, EDTA Not Reportable 02/18/19 01:14 Large Platelets Rare 02/18/19 01:14 Giant Platelets Not Reportable 02/18/19 01:14 Platelet Satelliting Not Reportable 02/18/19 01:14 Plt Morphology Comment Not Reportable 02/18/19 01:14 RBC Morphology Not Reportable 02/18/19 01:14 Dimorphic RBCs Not Reportable 02/18/19 01:14 Polychromasia Few 02/18/19 01:14 Hypochromasia Few 02/18/19 01:14 Poikilocytosis Not Reportable 02/18/19 01:14 Anisocytosis Not Reportable 02/18/19 01:14 Microcytosis Not Reportable 02/18/19 01:14 Macrocytosis Not Reportable 02/18/19 01:14 Spherocytes Rare 02/18/19 01:14 Pappenheimer Bodies Not Reportable 02/18/19 01:14 Sickle Cells Not Reportable 02/18/19 01:14 Target Cells Not Reportable 02/18/19 01:14 Tear Drop Cells Not Reportable 02/18/19 01:14 Ovalocytes Not Reportable 02/18/19 01:14 Helmet Cells Not Reportable 02/18/19 01:14 [place] Bodies Not Reportable 02/18/19 01:14 [place] Rings Not Reportable 02/18/19 01:14 [place] Cells Not Reportable 02/18/19 01:14 Bite Cells Not Reportable 02/18/19 01:14 Crenated Cell Not Reportable 02/18/19 01:14 Elliptocytes Not Reportable 02/18/19 01:14 Acanthocytes (Spur) Not Reportable 02/18/19 01:14 Rouleaux Not Reportable 02/18/19 01:14 Hemoglobin C Crystals Not Reportable 02/18/19 01:14 Schistocytes Not Reportable 02/18/19 01:14 Malaria parasites Not Reportable 02/18/19 01:14 [place] Bodies Not Reportable 02/18/19 01:14 Hem Pathologist Commnt No 02/18/19 01:14 PT 15.6 Sec. (12.2-14.9) H 02/13/19 14:15 INR 1.17 (0.87-1.13) H 02/13/19 14:15 APTT 26.6 Sec. (24.2-36.6) 02/13/19 14:15 VBG pH 7.379 (7.320-7.420) 02/13/19 14:08 Sodium 130 mmol/L (137-145) L 02/18/19 04:25 Potassium 4.1 mmol/L (3.6-5.0) D 02/18/19 04:25 Chloride 94.7 mmol/L (98-107) L 02/18/19 04:25 Carbon Dioxide 22 mmol/L (22-30) 02/18/19 04:25 Anion Gap 17 mmol/L 02/18/19 04:25 BUN 53 mg/dL (7-17) H 02/18/19 04:25 Creatinine 1.1 mg/dL (0.7-1.2) 02/18/19 04:25 Estimated GFR > 60 ml/min 02/18/19 04:25 BUN/Creatinine Ratio 48 % 02/18/19 04:25 Glucose 80 mg/dL (65-100) 02/18/19 04:25 POC Glucose 105 (70-105) 02/18/19 05:51 Hemoglobin A1c 9.2 % (4-6) H 02/13/19 18:15 Ketones Quantitative Negative (Negative) 02/13/19 14:08 Calcium 7.8 mg/dL (8.4-10.2) L 02/18/19 04:25 Phosphorus 3.10 mg/dL (2.5-4.5) 02/15/19 05:32 Magnesium 2.80 mg/dL (1.7-2.3) H 02/15/19 05:32 Total Bilirubin 1.60 mg/dL (0.1-1.2) H 02/14/19 08:15 Direct Bilirubin 1.1 mg/dL (0-0.2) H 02/13/19 14:08 Indirect Bilirubin 0.4 mg/dL 02/13/19 14:08 AST 47 units/L (5-40) H 02/14/19 08:15 ALT 33 units/L (7-56) 02/14/19 08:15 Alkaline Phosphatase 218 units/L (35-129) H 02/14/19 08:15 Ammonia 40.0 umol/L (25-60) 02/13/19 14:15 Total Creatine Kinase 99 units/L (30-135) 02/18/19 04:25 CK-MB (CK-2) 3.6 ng/mL (0.0-4.0) 02/13/19 14:20 CK-MB (CK-2) Rel Index 0.2 (0-4) 02/13/19 14:20 Troponin T 0.072 ng/mL (0.00-0.029) H 02/13/19 14:20 NT-Pro-B Natriuret Pep 6167 pg/mL (0-900) H 02/13/19 14:15 Total Protein 6.2 g/dL (6.3-8.2) L 02/14/19 08:15 Albumin 2.2 g/dL (3.9-5) L 02/14/19 08:15 Albumin/Globulin Ratio 0.6 % 02/14/19 08:15 Triglycerides 329 mg/dL (2-149) H 02/13/19 14:20 Cholesterol 159 mg/dL (50-199) 02/13/19 14:20 LDL Cholesterol Direct 36 mg/dL (50-130) L 02/13/19 14:20 HDL Cholesterol 17 mg/dL (40-59) L 02/13/19 14:20 Cholesterol/HDL Ratio 9.35 % 02/13/19 14:20 Urine Color Steffi (Yellow) 02/14/19 09:07 Urine Turbidity Cloudy (Clear) 02/14/19 09:07 Urine pH 5.0 (5.0-7.0) 02/14/19 09:07 Ur Specific [place] 1.013 (1.003-1.030) 02/14/19 09:07 Urine Protein 100 mg/dl mg/dL (Negative) 02/14/19 09:07 Urine Glucose (UA) 50 mg/dL (Negative) 02/14/19 09:07 Urine Ketones Neg mg/dL (Negative) 02/14/19 09:07 Urine Blood Lg (Negative) 02/14/19 09:07 Urine Nitrite Neg (Negative) 02/14/19 09:07 Urine Bilirubin Neg (Negative) 02/14/19 09:07 Urine Urobilinogen 2.0 mg/dL (<2.0) 02/14/19 09:07 Ur Leukocyte Esterase Lg (Negative) 02/14/19 09:07 Urine WBC (Auto) > 182.0 /HPF (0.0-6.0) H 02/14/19 09:07 Urine RBC (Auto) 9.0 /HPF (0.0-6.0) 02/14/19 09:07 U Epithel Cells (Auto) 1.0 /HPF (0-13.0) 02/14/19 09:07 Urine Bacteria (Auto) 4+ /HPF (Negative) 02/14/19 09:07 Urine WBC Clumps 3+ /HPF 02/14/19 09:07 Ur Transition Epith Cell 1 /HPF 02/14/19 09:07 Urine Mucus Few /HPF 02/14/19 09:07 Vancomycin Trough 14.5 ug/mL (5.0-20.0) 02/15/19 05:32 Urine Opiates Screen Presumptive negative 02/14/19 09:07 Urine Methadone Screen Presumptive negative 02/14/19 09:07 Ur Barbiturates Screen Presumptive negative 02/14/19 09:07 Ur Phencyclidine Scrn Presumptive negative 02/14/19 09:07 Ur Amphetamines Screen Presumptive negative 02/14/19 09:07 U Benzodiazepines Scrn Presumptive negative 02/14/19 09:07 Urine Cocaine Screen Presumptive negative 02/14/19 09:07 U Marijuana (THC) Screen Presumptive negative 02/14/19 09:07 Drugs of Abuse Note Disclamer 02/14/19 09:07 Blood Type B POSITIVE 02/13/19 14:15 Antibody Screen Negative 02/13/19 14:15 Active Medications - Current Medications Current Medications: Generic Name Dose Route Start Last Admin Trade Name Freq PRN Reason Stop Dose Admin Acetaminophen 650 mg 02/13/19 18:03 Tylenol PO Q4H PRN Pain MILD(1-3)/Fever >100.5/MARTÍNEZ Aspirin 81 mg 02/14/19 10:00 02/17/19 11:08 Halfprin Ec PO 81 mg DAILY RAFAEL Administration Clopidogrel Bisulfate 75 mg 02/13/19 19:00 02/17/19 11:08 Plavix PO 75 mg QDAY RAFAEL Administration Dextrose 50 ml 02/14/19 14:03 D50w (25gm) Syringe IV PRN PRN Hypoglycemia Enoxaparin Sodium 40 mg 02/17/19 22:00 02/17/19 22:53 Lovenox SUB-Q 40 mg QHS RAFAEL Administration Hydralazine HCl 10 mg 02/16/19 16:04 Apresoline IV Q4HR PRN BP >160/100 Hydromorphone HCl 0.5 mg 02/13/19 18:03 02/18/19 02:51 Dilaudid IV 0.5 mg Q3H PRN Administration Pain , Severe (7-10) Sodium Chloride 1,000 mls @ 100 mls/hr 02/13/19 19:00 Nacl 0.9% 1000 Ml IV DIRECT RAFAEL Cefazolin Sodium 2 gm/ Sodium 100 mls @ 200 mls/hr 02/17/19 16:00 02/18/19 02:25 Chloride IV 200 mls/hr Q8H [facility] Administration Protocol Sodium Chloride 500 mls @ 0 mls/hr 02/18/19 09:46 Nacl 0.9% 500 Ml IV 02/18/19 09:47 ONCE ONE As Directed Insulin Glargine 27 units 02/16/19 22:00 02/18/19 00:46 Lantus SUB-Q Not Given BID [facility] Insulin Human Lispro 0 unit 02/14/19 16:30 02/18/19 08:31 Humalog SUB-Q Not Given ACHS [facility] Protocol Insulin Human Lispro 8 unit 02/18/19 09:30 02/18/19 09:24 Humalog SUB-Q 8 unit AC [facility] Administration Nifedipine 60 mg 02/16/19 22:00 02/17/19 22:53 Procardia Xl PO 60 mg Q12HR RAFAEL Administration Ondansetron HCl 4 mg 02/13/19 18:03 Zofran IV Q8H PRN Nausea And Vomiting Oxycodone/Acetaminophen 1 tab 02/13/19 18:03 02/17/19 23:06 Percocet 5/325 PO 1 tab Q6H PRN Administration Pain, Moderate (4-6) Sodium Chloride 10 ml 02/13/19 22:00 02/17/19 22:54 Sodium Chloride Flush Syringe 10 Ml IV 10 ml BID RAFAEL Administration Sodium Chloride 10 ml 02/13/19 18:03 Sodium Chloride Flush Syringe 10 Ml IV PRN PRN LINE FLUSH
[2019-02-18] MEDS ORDERED: NACL 0.9% 500 ML 500 ML IV ONE (10:00)
--- NOTE | 2019-02-18 10:45 | Progress Note ---
Assessment and Plan Cultures: 02/13/2019 blood culture: E. coli, 4 out of 4 bottles 02/14/2019 urine culture: E. coli A/P: 58-year-old female with hypertension, diabetes mellitus type 2, peripheral vascular disease who was recently hospitalized from vascular surgery clinic due to right second toe gangrene. She underwent thrombolysis of the right lower extremity and underwent a stent placement. She developed compartment syndrome requiring fasciotomy on 01/29/2019 and then was discharged to a rehabilitation facility, admitted with: 1) Sepsis improved, leukocytosis continuing secondary to gram-negative ba cteremia: Source is unclear but possibly from right second toe gangrene , Likely urinary tract infection. Patient denies any urinary burning. Fasciotomy wounds appear to be healing well. 2) E. coli bacteremia: 4 out of 4 bottles, hobson susceptible. Will deescalate to Cefazolin. If clinically stable, anticipate change to PO antibiotics tomorrow. Repeat blood cultures to ensure clearance. 3) UTI: U/a shows Pyuria, WBC > 182 with large LE. Urine culture grew E.coli. 4) Acute kidney injury: Renal dose antibiotics. Nephrology following. 5) Peripheral vascular disease: Vascular surgery following. Right second toe ischemia and gangrene. Debridement planned for Friday with possible wound VAC placement. 6) Diabetes mellitus type 2, uncontrolled. Recs: -continue cefazolin 2gms IV q 8, D5 of D7 [facility] M: [phone] O:[phone] Subjective Date of service: 02/18/19 Principal diagnosis: PVD with gangrene right toe, status post fasciotomies Interval history: Patient seen and examined. Sitting up in bed eating, reports no acute distress, generalized weakness. Objective - Exam Narrative Exam: Constitutional: Alert, cooperative. No acute distress Head, Ears, Nose: Normocephalic, atraumatic. External ears, nose normal Eyes: Conjunctivae/corneas clear. No icterus. No ptosis. Neck: Supple, no meningeal signs Oral: dentition fair, no thrush Cardiovascular: S1, S2 normal. Respiratory: Good air entry, clear to auscultation bilaterally GI: Soft, non-tender; bowel sounds normal. No peritoneal signs. No CVA or sup rapubic tenderness Musculoskeletal: No pedal edema, no cyanosis. Right second toe with blackish discoloration, multiple right calf fasciotomy wounds with dressing Skin: No rash or abscess Hem/Lymphatic: No palpable cervical or supraclavicular nodes. No lymphangitis Psych: Mood ok. Affect normal Neurological: Awake, alert, oriented. No gross abnormality - Constitutional Vitals: Vital Signs Temp Pulse Resp BP Pulse Ox 97.9 F 81 20 147/62 97 02/18/19 05:49 02/18/19 05:49 02/18/19 05:49 02/18/19 05:49 02/18/19 05:49 Temperature -Last 24 Hours Temperature 97.9 F Temperature 98.9 F Temperature 99.4 F Temperature 98.4 F Temperature 98.1 F - Labs CBC & Chem 7: 02/18/19 01:14 02/18/19 04:25 Labs: Abnormal lab results 02/17/19 02/17/19 02/17/19 Range/Units 10:41 11:14 16:18 WBC 13.3 H (4.5-11.0) K/mm3 RBC 2.92 L (3.65-5.03) M/mm3 Hgb 8.2 L (10.1-14.3) gm/dl Hct 24.6 L (30.3-42.9) % RDW 16.2 H (13.2-15.2) % Seg Neuts % (Manual) 85.0 H (40.0-70.0) % Lymphocytes % (Manual) 8.0 L (13.4-35.0) % Monocytes % (Manual) (0.0-7.3) % Seg Neutrophils # Man 11.3 H (1.8-7.7) K/mm3 Lymphocytes # (Manual) 1.1 L (1.2-5.4) K/mm3 Monocytes # (Manual) (0.0-0.8) K/mm3 Sodium (137-145) mmol/L Chloride (98-107) mmol/L BUN (7-17) mg/dL POC Glucose 219 H 176 H (70-105) Calcium (8.4-10.2) mg/dL 02/18/19 02/18/19 Range/Units 01:14 04:25 WBC 14.6 H (4.5-11.0) K/mm3 RBC 2.53 L (3.65-5.03) M/mm3 Hgb 7.1 L (10.1-14.3) gm/dl Hct 21.7 L (30.3-42.9) % RDW 16.6 H (13.2-15.2) % Seg Neuts % (Manual) 72.0 H (40.0-70.0) % Lymphocytes % (Manual) 8.0 L (13.4-35.0) % Monocytes % (Manual) 11.0 H (0.0-7.3) % Seg Neutrophils # Man 10.5 H (1.8-7.7) K/mm3 Lymphocytes # (Manual) (1.2-5.4) K/mm3 Monocytes # (Manual) 1.6 H (0.0-0.8) K/mm3 Sodium 130 L (137-145) mmol/L Chloride 94.7 L (98-107) mmol/L BUN 53 H (7-17) mg/dL POC Glucose (70-105) Calcium 7.8 L (8.4-10.2) mg/dL
--- NOTE | 2019-02-18 10:51 | Progress Note ---
Assessment and Plan - Patient Problems (1) GERALDINE (acute kidney injury) Current Visit: Yes Status: Acute Plan to address problem: Labs noted and overall renal function is stable. Will continue to monitor. (2) Encephalopathy acute Current Visit: Yes Status: Acute Plan to address problem: Improved at this time since admission, now back to her baseline, Will continue to monitor, (3) Hyperkalemia Current Visit: Yes Status: Acute Plan to address problem: In the setting of hyperglycemia/poorly controlled DM and GERALDINE. Agree with current medical management and primarily control of her hyperglycemia/diabetes. Maintain on low K diet. Will monitor, (4) Hyperosmolar non-ketotic state in patient with type 2 diabetes mellitus Current Visit: Yes Status: Acute Plan to address problem: Management per primary attending. (5) Hyponatremia Current Visit: Yes Status: Acute Plan to address problem: Likely in the setting of hyperglycemia. Will monitor. Encouraged patient to increase overall protein intake in her diet. (6) Sepsis Current Visit: Yes Status: Acute Qualifiers: Sepsis type: sepsis due to unspecified organism Qualified Code(s): A41.9 - Sepsis, unspecified organism Plan to address problem: Unclear etiology, possible underlying UTI vs right gangrenous toe, await culture results. Antibiotics to be dosed per her decreased renal clearance. She has now been placed on IV cefazolin per ID (7) Peripheral vascular disease Current Visit: Yes Status: Acute Plan to address problem: s/p fasciotomy in the setting of developing acute compartment syndrome post thrombolysis. Management per vascular surgery. Plan for debridement of RLE wound Subjective Date of service: 02/18/19 Principal diagnosis: PVD with gangrene right toe, status post fasciotomies Interval history: No acute issues overnight. Labs noted and overall renal function is stable, and glycemic control has improved since admission. Per vascular surgery note, plan for debridement in OR on Friday of RLE wound. Objective - Vital Signs Vital signs: Vital Signs - 12hr 02/17/19 02/17/19 02/17/19 22:48 23:06 23:59 Temperature 99.4 F 98.9 F Pulse Rate 96 H 90 Respiratory 17 17 20 Rate Blood Pressure 130/58 Blood Pressure 146/59 [Left] O2 Sat by Pulse 96 98 Oximetry 02/18/19 02/18/19 02/18/19 00:06 02:51 03:21 Temperature Pulse Rate Respiratory 17 17 17 Rate Blood Pressure Blood Pressure [Left] O2 Sat by Pulse Oximetry 02/18/19 05:49 Temperature 97.9 F Pulse Rate 81 Respiratory 20 Rate Blood Pressure 147/62 Blood Pressure [Left] O2 Sat by Pulse 97 Oximetry - General Appearance General appearance: well-developed, well-nourished, appears stated age EENT: ATNC, PERRL Neck: no JVD, no thyromegaly Respiratory: Present: Clear to Ascultation, Normal Exam Cardiology: regular, normal heart rate, S1S2 Gastrointestinal: normal Integumentary: other (chronic RLE wound with dressing in place ) Neurologic: no focal deficit, alert and oriented x3 Psychiatric: mood/affect appropriate - Lab 02/18/19 01:14 02/18/19 04:25 Most recent lab results Calcium 7.8 mg/dL (8.4-10.2) L 02/18/19 04:25 Phosphorus 3.10 mg/dL (2.5-4.5) 02/15/19 05:32 Magnesium 2.80 mg/dL (1.7-2.3) H 02/15/19 05:32 - Allied health notes Allied health notes reviewed: nursing Medications & Allergies - Medications Allergies/Adverse Reactions: Allergies No Known Allergies Allergy (Verified 01/28/19 21:26) Home Medications: Home Medications Medication Instructions Recorded Confirmed Last Taken Type HumuLIN 70-30 Vial 12 units SQ TID 01/28/19 02/16/19 02/13/19 20:00 History Aspirin [Low Dose Aspirin EC] 81 mg PO DAILY #30 tablet. 02/04/19 02/16/19 02/14/19 10:00 Rx Clopidogrel [Plavix] 75 mg PO QDAY #30 tablet 02/04/19 02/16/19 02/14/19 10:00 Rx HYDROcodone/APAP 5-325 [[place] 2 each PO Q6H PRN #14 tablet 02/04/19 02/16/19 02/08/19 10:00 Rx 5-325 mg TAB] Insulin Glargine [Lantus VIAL] 5 units SUB-Q QHS #30 units 02/04/19 02/16/19 02/13/19 20:00 Rx Valsartan [Diovan] 160 mg PO QDAY #30 tablet 02/04/19 02/16/19 02/13/19 10:00 Rx hydroCHLOROthiazide [HCTZ] 25 mg PO QDAY #30 tablet 02/04/19 02/16/19 02/12/19 10:00 Rx Active Medications: Generic Name Dose Route Start Last Admin Trade Name Freq PRN Reason Stop Dose Admin Acetaminophen 650 mg 02/13/19 18:03 Tylenol PO Q4H PRN Pain MILD(1-3)/Fever >100.5/MARTÍNEZ Aspirin 81 mg 02/14/19 10:00 02/17/19 11:08 Halfprin Ec PO 81 mg DAILY RAFAEL Administration Clopidogrel Bisulfate 75 mg 02/13/19 19:00 02/17/19 11:08 Plavix PO 75 mg QDAY RAFAEL Administration Dextrose 50 ml 02/14/19 14:03 D50w (25gm) Syringe IV PRN PRN Hypoglycemia Enoxaparin Sodium 40 mg 02/17/19 22:00 02/17/19 22:53 Lovenox SUB-Q 40 mg QHS RAFAEL Administration Hydralazine HCl 10 mg 02/16/19 16:04 Apresoline IV Q4HR PRN BP >160/100 Hydromorphone HCl 0.5 mg 02/13/19 18:03 02/18/19 02:51 Dilaudid IV 0.5 mg Q3H PRN Administration Pain , Severe (7-10) Sodium Chloride 1,000 mls @ 100 mls/hr 02/13/19 19:00 Nacl 0.9% 1000 Ml IV DIRECT RAFAEL Cefazolin Sodium 2 gm/ Sodium 100 mls @ 200 mls/hr 02/17/19 16:00 02/18/19 02:25 Chloride IV 200 mls/hr Q8H RAFAEL Administration Protocol Insulin Glargine 27 units 02/16/19 22:00 02/18/19 00:46 Lantus SUB-Q Not Given BID RAFAEL Insulin Human Lispro 0 unit 02/14/19 16:30 02/18/19 08:31 Humalog SUB-Q Not Given ACHS [facility] Protocol Insulin Human Lispro 8 unit 02/18/19 09:30 02/18/19 09:24 Humalog SUB-Q 8 unit AC RAFAEL Administration Nifedipine 60 mg 02/16/19 22:00 02/17/19 22:53 Procardia Xl PO 60 mg Q12HR RAFAEL Administration Ondansetron HCl 4 mg 02/13/19 18:03 Zofran IV Q8H PRN Nausea And Vomiting Oxycodone/Acetaminophen 1 tab 02/13/19 18:03 02/17/19 23:06 Percocet 5/325 PO 1 tab Q6H PRN Administration Pain, Moderate (4-6) Sodium Chloride 10 ml 02/13/19 22:00 02/17/19 22:54 Sodium Chloride Flush Syringe 10 Ml IV 10 ml BID RAFAEL Administration Sodium Chloride 10 ml 02/13/19 18:03 Sodium Chloride Flush Syringe 10 Ml IV PRN PRN LINE FLUSH
[2019-02-18] MEDS: PLAVIX PO SCH (11:01)
[2019-02-18] MEDS: PERCOCET 5/325 PO PRN ×2 (11:01→20:36)
[2019-02-18] MEDS: HALFPRIN EC PO SCH (11:01)
[2019-02-18] MEDS: SODIUM CHLORIDE FLUSH SYRINGE 10 ML IV SCH ×2 (11:01→23:01)
[2019-02-18] MEDS: PROCARDIA XL PO SCH ×2 (11:01→22:59)
--- NOTE | 2019-02-18 13:55 | Progress Note ---
Assessment and Plan 58-year-old female with presentation for sepsis from urinary tract infection with right second digit gangrene and eschar associated with wound bed. PVD managed by Dr. Gonsales whom attempted to treat the patient as an outpatient requiring inpatient admission, thrombolysis and fasciotomy. [facility] was contacted for fasciotomy assistance/management. Currently, plan for debridement in the operating room on Friday. Patient will follow up at wound care center. Dr. Gonsales for PVD management and 2nd digit gangrene management. He may have plans for outpatient or inpatient 2nd digit amputation with referring basket operator. Subjective Date of service: 02/18/19 Principal diagnosis: PVD with gangrene right toe, status post fasciotomies Interval history: Palpable right dorsalis pedis pulse. Plan for debridement on Friday with possible wound VAC placement. Will need follow-up with wound care. Objective - Constitutional Vitals: Vital Signs - 12hr 02/18/19 02/18/19 02/18/19 02:51 03:21 05:49 Temperature 97.9 F Pulse Rate 81 Respiratory 17 17 20 Rate Blood Pressure 147/62 O2 Sat by Pulse 97 Oximetry 02/18/19 11:13 Temperature 98.6 F Pulse Rate 91 H Respiratory 22 Rate Blood Pressure 127/57 O2 Sat by Pulse 97 Oximetry General appearance: Present: no acute distress - EENT Eyes: EOM intact ENT: hearing intact - Respiratory Respiratory effort: normal Extremities: pulses intact (right DP palpable), abnormal (right calf dressing in place) - Psychiatric Psychiatric: appropriate mood/affect, cooperative - Labs CBC & Chem 7: 02/18/19 01:14 02/18/19 04:25 Labs: Abnormal lab results 02/17/19 02/18/19 02/18/19 Range/Units 16:18 01:14 04:25 WBC 14.6 H (4.5-11.0) K/mm3 RBC 2.53 L (3.65-5.03) M/mm3 Hgb 7.1 L (10.1-14.3) gm/dl Hct 21.7 L (30.3-42.9) % RDW 16.6 H (13.2-15.2) % Seg Neuts % (Manual) 72.0 H (40.0-70.0) % Lymphocytes % (Manual) 8.0 L (13.4-35.0) % Monocytes % (Manual) 11.0 H (0.0-7.3) % Seg Neutrophils # Man 10.5 H (1.8-7.7) K/mm3 Monocytes # (Manual) 1.6 H (0.0-0.8) K/mm3 Sodium 130 L (137-145) mmol/L Chloride 94.7 L (98-107) mmol/L BUN 53 H (7-17) mg/dL POC Glucose 176 H (70-105) Calcium 7.8 L (8.4-10.2) mg/dL Crossmatch 02/18/19 02/18/19 Range/Units 11:35 11:57 WBC (4.5-11.0) K/mm3 RBC (3.65-5.03) M/mm3 Hgb (10.1-14.3) gm/dl Hct (30.3-42.9) % RDW (13.2-15.2) % Seg Neuts % (Manual) (40.0-70.0) % Lymphocytes % (Manual) (13.4-35.0) % Monocytes % (Manual) (0.0-7.3) % Seg Neutrophils # Man (1.8-7.7) K/mm3 Monocytes # (Manual) (0.0-0.8) K/mm3 Sodium (137-145) mmol/L Chloride (98-107) mmol/L BUN (7-17) mg/dL POC Glucose 197 H (70-105) Calcium (8.4-10.2) mg/dL Crossmatch See Detail Medications & Allergies - Medications Allergies/Adverse Reactions: Allergies No Known Allergies Allergy (Verified 01/28/19 21:26) Home Medications: Home Medications Medication Instructions Recorded Confirmed Last Taken Type HumuLIN 70-30 Vial 12 units SQ TID 01/28/19 02/16/19 02/13/19 20:00 History Aspirin [Low Dose Aspirin EC] 81 mg PO DAILY #30 tablet. 02/04/19 02/16/19 02/14/19 10:00 Rx Clopidogrel [Plavix] 75 mg PO QDAY #30 tablet 02/04/19 02/16/19 02/14/19 10:00 Rx HYDROcodone/APAP 5-325 [[place] 2 each PO Q6H PRN #14 tablet 02/04/19 02/16/19 02/08/19 10:00 Rx 5-325 mg TAB] Insulin Glargine [Lantus VIAL] 5 units SUB-Q QHS #30 units 02/04/19 02/16/19 02/13/19 20:00 Rx Valsartan [Diovan] 160 mg PO QDAY #30 tablet 02/04/19 02/16/19 02/13/19 10:00 Rx hydroCHLOROthiazide [HCTZ] 25 mg PO QDAY #30 tablet 02/04/19 02/16/19 02/12/19 10:00 Rx Active Medications: Generic Name Dose Route Start Last Admin Trade Name Freq PRN Reason Stop Dose Admin Acetaminophen 650 mg 02/13/19 18:03 Tylenol PO Q4H PRN Pain MILD(1-3)/Fever >100.5/MARTÍNEZ Aspirin 81 mg 02/14/19 10:00 02/18/19 11:01 Halfprin Ec PO 81 mg DAILY RAFAEL Administration Clopidogrel Bisulfate 75 mg 02/13/19 19:00 02/18/19 11:01 Plavix PO 75 mg QDAY RAFAEL Administration Dextrose 50 ml 02/14/19 14:03 D50w (25gm) Syringe IV PRN PRN Hypoglycemia Enoxaparin Sodium 40 mg 02/17/19 22:00 02/17/19 22:53 Lovenox SUB-Q 40 mg QHS RAFAEL Administration Hydralazine HCl 10 mg 02/16/19 16:04 Apresoline IV Q4HR PRN BP >160/100 Hydromorphone HCl 0.5 mg 02/13/19 18:03 02/18/19 02:51 Dilaudid IV 0.5 mg Q3H PRN Administration Pain , Severe (7-10) Sodium Chloride 1,000 mls @ 100 mls/hr 02/13/19 19:00 Nacl 0.9% 1000 Ml IV DIRECT RAFAEL Cefazolin Sodium 2 gm/ Sodium 100 mls @ 200 mls/hr 02/17/19 16:00 02/18/19 11:00 Chloride IV 200 mls/hr Q8H RAFAEL Administration Protocol Insulin Glargine 27 units 02/16/19 22:00 02/18/19 13:14 Lantus SUB-Q 27 units BID RAFAEL Administration Insulin Human Lispro 0 unit 03/17/19 16:30 02/18/19 12:30 Humalog SUB-Q 3 unit ACHS RAFAEL Administration Protocol Insulin Human Lispro 8 unit 02/18/19 09:30 02/18/19 12:30 Humalog SUB-Q 8 unit AC RAFAEL Administration Nifedipine 60 mg 02/16/19 22:00 02/18/19 11:01 Procardia Xl PO 60 mg Q12HR RAFAEL Administration Ondansetron HCl 4 mg 02/13/19 18:03 Zofran IV Q8H PRN Nausea And Vomiting Oxycodone/Acetaminophen 1 tab 02/13/19 18:03 02/18/19 11:01 Percocet 5/325 PO 1 tab Q6H PRN Administration Pain, Moderate (4-6) Sodium Chloride 10 ml 02/13/19 22:00 02/18/19 11:01 Sodium Chloride Flush Syringe 10 Ml IV 10 ml BID RAFAEL Administration Sodium Chloride 10 ml 02/13/19 18:03 Sodium Chloride Flush Syringe 10 Ml IV PRN PRN LINE FLUSH
[2019-02-18] MEDS: LOVENOX SUB-Q SCH (22:59)
[2019-02-19] MEDS: ceFAZolin 2 GM in NACL 0.9% 100 ML IV SCH ×4 (02:14→23:25)
[2019-02-19] MEDS: NACL 0.9% 1000 ML 1,000 ML IV SCH ×3 (07:32→23:27)
--- NOTE | 2019-02-19 07:56 | Anesthesia Consultation ---
Anesthesia Consult and Med Hx Date of service: 02/19/19 - Airway Anesthetic Teeth Evaluation: Poor ROM Head & Neck: Adequate Mental/Hyoid Distance: Adequate Mallampati Class: Class II Intubation Access Assessment: Probably Good - Pulmonary Exam CTA: Yes - Cardiac Exam Cardiac Exam: RRR - Pre-Operative Health Status ASA Pre-Surgery Classification: ASA3 Proposed Anesthetic Plan: General - Pulmonary Hx Smoking: No Hx Asthma: No Hx Respiratory Symptoms: No COPD: No Hx Pneumonia: No - Cardiovascular System Hx Hypertension: Yes Hx Heart Attack/AMI: No Hx Percutaneous Transluminal Coronary Angioplasty (PTCA): No Hx Cardia Arrhythmia: No Hx Peripheral Vascular Disease: Yes - Central Nervous System CVA: No Hx Psychiatric Problems: No - Gastrointestinal Hx Gastroesophageal Reflux Disease: No - Endocrine Hx Renal Disease: No Hx End Stage Renal Disease: No Hx Liver Disease: No Hx Insulin Dependent Diabetes: Yes - Hematic Hx Anemia: Yes Hx Sickle Cell Disease: No - Other Systems Hx Obesity: Yes - Additional Comments Anesthesia Medical History Comments: Hgb 7.1 02/18/19; repeating cbc and bmp (hyponatremia); No GAC, No FHAC
[2019-02-19 08:06] LABS: BUN/Creatinine Ratio 36; Blood Urea Nitrogen 36 mg/dL (7-17); Calcium 7.9 mg/dL (8.4-10.2); Hemolysis Index 5
[2019-02-19] MEDS ORDERED: XYLOCAINE MPF 2% ONE (08:10)
[2019-02-19] MEDS ORDERED: SUBLIMAZE ONE (08:11)
[2019-02-19] MEDS ORDERED: DIPRIVAN 10 MG/ML IV ONE (08:11)
--- NOTE | 2019-02-19 08:12 | Progress Note ---
Assessment and Plan - Patient Problems (1) GERALDINE (acute kidney injury) Current Visit: Yes Status: Acute Plan to address problem: Labs noted and overall renal function is stable. Will continue to monitor. (2) Encephalopathy acute Current Visit: Yes Status: Acute Plan to address problem: Improved at this time since admission, now back to her baseline, Will continue to monitor, (3) Hyperkalemia Current Visit: Yes Status: Acute Plan to address problem: In the setting of hyperglycemia/poorly controlled DM and GERALDINE. Agree with current medical management and primarily control of her hyperglycemia/diabetes. Maintain on low K diet. Will monitor, (4) Hyperosmolar non-ketotic state in patient with type 2 diabetes mellitus Current Visit: Yes Status: Acute Plan to address problem: Management per primary attending. (5) Hyponatremia Current Visit: Yes Status: Acute Plan to address problem: Likely in the setting of hyperglycemia. Will monitor. Encouraged patient to increase overall protein intake in her diet. her serum sodium levels show improvement at this time. (6) Sepsis Current Visit: Yes Status: Acute Qualifiers: Sepsis type: sepsis due to unspecified organism Qualified Code(s): A41.9 - Sepsis, unspecified organism Plan to address problem: Unclear etiology, possible underlying UTI vs right gangrenous toe, await culture results. Antibiotics to be dosed per her decreased renal clearance. She has now been placed on IV cefazolin per ID (7) Peripheral vascular disease Current Visit: Yes Status: Acute Plan to address problem: s/p fasciotomy in the setting of developing acute compartment syndrome post thrombolysis. Management per vascular surgery. Plan for debridement of RLE wound Subjective Date of service: 02/19/19 Principal diagnosis: PVD with gangrene right toe, status post fasciotomies Interval history: No acute complaints at this time, pending debridement of her chronic LE wounds today am. Labs noted and improvement noted. Objective - Vital Signs Vital signs: Vital Signs - 12hr 02/18/19 02/18/19 02/18/19 20:36 21:20 22:00 Temperature 98.7 F Pulse Rate 95 H 95 H Respiratory 20 28 H Rate Blood Pressure 137/66 O2 Sat by Pulse 98 Oximetry 02/18/19 02/19/19 23:10 04:54 Temperature 98.1 F Pulse Rate 88 Respiratory 20 28 H Rate Blood Pressure 148/69 O2 Sat by Pulse 100 Oximetry - General Appearance General appearance: well-developed EENT: ATNC, PERRL Neck: no JVD, no thyromegaly Respiratory: Present: Clear to Ascultation, Normal Exam Cardiology: regular, S1S2 Gastrointestinal: normal, normoactive bowel sounds Integumentary: other (RLE wound with dressing in place ) Neurologic: no focal deficit, alert and oriented x3 Psychiatric: mood/affect appropriate, cooperative - Lab 02/18/19 01:14 02/19/19 07:01 Most recent lab results Calcium 7.9 mg/dL (8.4-10.2) L 02/19/19 07:01 Phosphorus 3.10 mg/dL (2.5-4.5) 02/15/19 05:32 Magnesium 2.80 mg/dL (1.7-2.3) H 02/15/19 05:32 - Allied health notes Allied health notes reviewed: nursing Medications & Allergies - Medications Allergies/Adverse Reactions: Allergies No Known Allergies Allergy (Verified 01/28/19 21:26) Home Medications: Home Medications Medication Instructions Recorded Confirmed Last Taken Type HumuLIN 70-30 Vial 12 units SQ TID 01/28/19 02/16/19 02/13/19 20:00 History Aspirin [Low Dose Aspirin EC] 81 mg PO DAILY #30 tablet. 02/04/19 02/16/19 02/14/19 10:00 Rx Clopidogrel [Plavix] 75 mg PO QDAY #30 tablet 02/04/19 02/16/19 02/14/19 10:00 Rx HYDROcodone/APAP 5-325 [[place] 2 each PO Q6H PRN #14 tablet 02/04/19 02/16/19 02/08/19 10:00 Rx 5-325 mg TAB] Insulin Glargine [Lantus VIAL] 5 units SUB-Q QHS #30 units 02/04/19 02/16/19 02/13/19 20:00 Rx Valsartan [Diovan] 160 mg PO QDAY #30 tablet 02/04/19 02/16/19 02/13/19 10:00 Rx hydroCHLOROthiazide [HCTZ] 25 mg PO QDAY #30 tablet 02/04/19 02/16/19 02/12/19 10:00 Rx Active Medications: Generic Name Dose Route Start Last Admin Trade Name Freq PRN Reason Stop Dose Admin Acetaminophen 650 mg 02/13/19 18:03 Tylenol PO Q4H PRN Pain MILD(1-3)/Fever >100.5/MARTÍNEZ Aspirin 81 mg 02/14/19 10:00 02/18/19 11:01 Halfprin Ec PO 81 mg DAILY RAFAEL Administration Clopidogrel Bisulfate 75 mg 02/13/19 19:00 02/18/19 11:01 Plavix PO 75 mg QDAY RAFAEL Administration Dextrose 50 ml 02/14/19 14:03 D50w (25gm) Syringe IV PRN PRN Hypoglycemia Enoxaparin Sodium 40 mg 02/17/19 22:00 02/18/19 22:59 Lovenox SUB-Q 40 mg QHS RAFAEL Administration Hydralazine HCl 10 mg 02/16/19 16:04 Apresoline IV Q4HR PRN BP >160/100 Hydromorphone HCl 0.5 mg 02/13/19 18:03 02/18/19 23:10 Dilaudid IV 0.5 mg Q3H PRN Administration Pain , Severe (7-10) Sodium Chloride 1,000 mls @ 100 mls/hr 02/13/19 19:00 02/19/19 07:32 Nacl 0.9% 1000 Ml IV 100 mls/hr DIRECT RAFAEL Administration Cefazolin Sodium 2 gm/ Sodium 100 mls @ 200 mls/hr 02/17/19 16:00 02/19/19 02:14 Chloride IV 200 mls/hr Q8H RAFAEL Administration Protocol Insulin Glargine 27 units 02/16/19 22:00 02/18/19 23:00 Lantus SUB-Q 27 units BID RAFEAL Administration Insulin Human Lispro 0 unit 02/14/19 16:30 02/18/19 23:00 Humalog SUB-Q Not Given ACHS RAFAEL Protocol Insulin Human Lispro 8 unit 02/18/19 09:30 02/18/19 17:30 Humalog SUB-Q 8 unit AC RAFAEL Administration Nifedipine 60 mg 02/16/19 22:00 02/18/19 22:59 Procardia Xl PO 60 mg Q12HR RAFAEL Administration Ondansetron HCl 4 mg 02/13/19 18:03 Zofran IV Q8H PRN Nausea And Vomiting Oxycodone/Acetaminophen 1 tab 02/13/19 18:03 02/18/19 20:36 Percocet 5/325 PO 1 tab Q6H PRN Administration Pain, Moderate (4-6) Sodium Chloride 10 ml 02/13/19 22:00 02/18/19 23:01 Sodium Chloride Flush Syringe 10 Ml IV 10 ml BID RAFAEL Administration Sodium Chloride 10 ml 02/13/19 18:03 Sodium Chloride Flush Syringe 10 Ml IV PRN PRN LINE FLUSH
[2019-02-19] MEDS: HumaLOG SUB-Q SCH ×6 (08:25→23:18)
[2019-02-19] MEDS ORDERED: VERSED IV NR ×2 (08:47→09:00)
[2019-02-19] MEDS ORDERED: SODIUM BICARBONATE ONE (09:27)
[2019-02-19] MEDS ORDERED: XYLOCAINE 1% 20 mL ONE (09:27)
--- NOTE | 2019-02-19 10:02 | Progress Note ---
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 CT head; no acute findings CXR no acute findings Labs; UA > 182 WBC Micro; urine and blood growing ecoli sens to current abx Diagnosis sepsis, ecoli Bactermia and Ecoli UTI anemia, likely due to chronic disease HHNK, Type 2 DM, A1c 9 Hyponatremia, likely pseudohyponatremia of hyperglycemia Hyperkalemia GERALDINE- likely ATN Hypomagesemia- resolved PAD hx of RLE ischemia, sp thrombolysis, revascularization and fascitomy Rhabdomylsis, non traumatic acute metabolic enncephalopathy Plan empiric abx, fup blood and urine cx, ID consult appreciated optimize insulins and BP meds, IVF, renal US, nephrology consult appreciated, Cr improving Mg was repleted, Kayexalate given on 02/17, 1 unit prbc given on 02/18 vascular consult appreciated, "Currently, plan for debridement in the operating room on Friday. Patient will follow up at wound care center. Consider consulting Dr. Gonsales for PVD management and 2nd digit gangrene management. 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" DVT ppx- chemical Dispo; back to SNF History Interval history: Review of systems Constitutional: No fevers, no malaise, no joint pains CVS: No chest pain, no orthopnea, no dyspnea on exertion, no pedal edema GI: No abdominal pain, no diarrhea, no vomiting, no constipation Respiratory: No shortness of breath, no wheezing, no coughing Hospitalist Physical - Physical exam Narrative exam: General.: Appears well, no distress, nontoxic HEENT: Moist mucous membranes, extraocular muscles intact, no lymphadenopathy Neck: supple Cardiac: S1-S2 heard Lungs: clear to auscultation bilaterally Abdomen: soft , nontender, nondistended, bowel sounds positive Extremities: ; R second toe dry gangrene R leg open wound- large, from fasciotomy Skin: no rash or lesions Neurologic: no gross focal deficits Psych: calm, and cooperative - Constitutional Vitals: Temp Pulse Resp BP Pulse Ox 98.9 F 85 24 139/70 97 02/19/19 08:10 02/19/19 08:10 02/19/19 08:10 02/19/19 08:10 02/19/19 08:10 General appearance: Present: no acute distress Results - Labs CBC & Chem 7: 02/18/19 01:14 02/19/19 07:01 Labs: Laboratory Last Values WBC 14.6 K/mm3 (4.5-11.0) H 02/18/19 01:14 RBC 2.53 M/mm3 (3.65-5.03) L 02/18/19 01:14 Hgb 7.1 gm/dl (10.1-14.3) L 02/18/19 01:14 Hct 21.7 % (30.3-42.9) L 02/18/19 01:14 MCV 86 fl (79-97) 02/18/19 01:14 MCH 28 pg (28-32) 02/18/19 01:14 MCHC 33 % (30-34) 02/18/19 01:14 RDW 16.6 % (13.2-15.2) H 02/18/19 01:14 Plt Count 403 K/mm3 (140-440) 02/18/19 01:14 Lymph % (Auto) [employer] 02/17/19 10:41 Nance % (Auto) [employer] 02/17/19 10:41 Eos % (Auto) [employer] 02/17/19 10:41 Baso % (Auto) [employer] 02/17/19 10:41 Lymph # [employer] 02/17/19 10:41 Nance # [employer] 02/17/19 10:41 Eos # [employer] 02/17/19 10:41 Baso # [employer] 02/17/19 10:41 Add Manual Diff Complete 02/18/19 01:14 Total Counted 100 02/18/19 01:14 Seg Neutrophils % [employer] 02/17/19 10:41 Seg Neuts % (Manual) 72.0 % (40.0-70.0) H 02/18/19 01:14 Band Neutrophils % 9.0 % 02/18/19 01:14 Lymphocytes % (Manual) 8.0 % (13.4-35.0) L 02/18/19 01:14 Reactive Lymphs % (Man) 0 % 02/18/19 01:14 Monocytes % (Manual) 11.0 % (0.0-7.3) H 02/18/19 01:14 Eosinophils % (Manual) 0 % (0.0-4.3) 02/18/19 01:14 Basophils % (Manual) 0 % (0.0-1.8) 02/18/19 01:14 Metamyelocytes % 0 % 02/18/19 01:14 Myelocytes % 0 % 02/18/19 01:14 Promyelocytes % 0 % 02/18/19 01:14 Blast Cells % 0 % 02/18/19 01:14 Nucleated RBC % Not Reportable 02/18/19 01:14 Seg Neutrophils # [employer] 02/17/19 10:41 Seg Neutrophils # Man 10.5 K/mm3 (1.8-7.7) H 02/18/19 01:14 Band Neutrophils # 1.3 K/mm3 02/18/19 01:14 Lymphocytes # (Manual) 1.2 K/mm3 (1.2-5.4) 02/18/19 01:14 Abs React Lymphs (Man) 0.0 K/mm3 02/18/19 01:14 Monocytes # (Manual) 1.6 K/mm3 (0.0-0.8) H 02/18/19 01:14 Eosinophils # (Manual) 0.0 K/mm3 (0.0-0.4) 02/18/19 01:14 Basophils # (Manual) 0.0 K/mm3 (0.0-0.1) 02/18/19 01:14 Metamyelocytes # 0.0 K/mm3 02/18/19 01:14 Myelocytes # 0.0 K/mm3 02/18/19 01:14 Promyelocytes # 0.0 K/mm3 02/18/19 01:14 Blast Cells # 0.0 K/mm3 02/18/19 01:14 WBC Morphology Not Reportable 02/18/19 01:14 Hypersegmented Neuts Not Reportable 02/18/19 01:14 Hyposegmented Neuts Not Reportable 02/18/19 01:14 Hypogranular Neuts Not Reportable 02/18/19 01:14 Smudge Cells Not Reportable 02/18/19 01:14 Toxic Granulation Not Reportable 02/18/19 01:14 Toxic Vacuolation Not Reportable 02/18/19 01:14 Dohle Bodies Not Reportable 02/18/19 01:14 Pelger-Huet Anomaly Not Reportable 02/18/19 01:14 Cisco Rods Not Reportable 02/18/19 01:14 Platelet Estimate Appears normal 02/18/19 01:14 Clumped Platelets Not Reportable 02/18/19 01:14 Plt Clumps, EDTA Not Reportable 02/18/19 01:14 Large Platelets Rare 02/18/19 01:14 Giant Platelets Not Reportable 02/18/19 01:14 Platelet Satelliting Not Reportable 02/18/19 01:14 Plt Morphology Comment Not Reportable 02/18/19 01:14 RBC Morphology Not Reportable 02/18/19 01:14 Dimorphic RBCs Not Reportable 02/18/19 01:14 Polychromasia Few 02/18/19 01:14 Hypochromasia Few 02/18/19 01:14 Poikilocytosis Not Reportable 02/18/19 01:14 Anisocytosis Not Reportable 02/18/19 01:14 Microcytosis Not Reportable 02/18/19 01:14 Macrocytosis Not Reportable 02/18/19 01:14 Spherocytes Rare 02/18/19 01:14 Pappenheimer Bodies Not Reportable 02/18/19 01:14 Sickle Cells Not Reportable 02/18/19 01:14 Target Cells Not Reportable 02/18/19 01:14 Tear Drop Cells Not Reportable 02/18/19 01:14 Ovalocytes Not Reportable 02/18/19 01:14 Helmet Cells Not Reportable 02/18/19 01:14 [place] Bodies Not Reportable 02/18/19 01:14 [place] Rings Not Reportable 02/18/19 01:14 [place] Cells Not Reportable 02/18/19 01:14 Bite Cells Not Reportable 02/18/19 01:14 Crenated Cell Not Reportable 02/18/19 01:14 Elliptocytes Not Reportable 02/18/19 01:14 Acanthocytes (Spur) Not Reportable 02/18/19 01:14 Rouleaux Not Reportable 02/18/19 01:14 Hemoglobin C Crystals Not Reportable 02/18/19 01:14 Schistocytes Not Reportable 02/18/19 01:14 Malaria parasites Not Reportable 02/18/19 01:14 [place]o Bodies Not Reportable 02/18/19 01:14 Hem Pathologist Commnt No 02/18/19 01:14 PT 15.6 Sec. (12.2-14.9) H 02/13/19 14:15 INR 1.17 (0.87-1.13) H 02/13/19 14:15 APTT 26.6 Sec. (24.2-36.6) 02/13/19 14:15 VBG pH 7.379 (7.320-7.420) 02/13/19 14:08 Sodium 135 mmol/L (137-145) L 02/19/19 07:01 Potassium 4.3 mmol/L (3.6-5.0) 02/19/19 07:01 Chloride 99.8 mmol/L (98-107) 02/19/19 07:01 Carbon Dioxide 24 mmol/L (22-30) 02/19/19 07:01 Anion Gap 16 mmol/L 02/19/19 07:01 BUN 36 mg/dL (7-17) H 02/19/19 07:01 Creatinine 1.0 mg/dL (0.7-1.2) 02/19/19 07:01 Estimated GFR > 60 ml/min 02/19/19 07:01 BUN/Creatinine Ratio 36 % 02/19/19 07:01 Glucose 98 mg/dL (65-100) 02/19/19 07:01 POC Glucose 107 (70-105) H 02/18/19 21:26 Hemoglobin A1c 9.2 % (4-6) H 02/13/19 18:15 Ketones Quantitative Negative (Negative) 02/13/19 14:08 Calcium 7.9 mg/dL (8.4-10.2) L 02/19/19 07:01 Phosphorus 3.10 mg/dL (2.5-4.5) 02/15/19 05:32 Magnesium 2.80 mg/dL (1.7-2.3) H 02/15/19 05:32 Total Bilirubin 1.60 mg/dL (0.1-1.2) H 02/14/19 08:15 Direct Bilirubin 1.1 mg/dL (0-0.2) H 02/13/19 14:08 Indirect Bilirubin 0.4 mg/dL 02/13/19 14:08 AST 47 units/L (5-40) H 02/14/19 08:15 ALT 33 units/L (7-56) 02/14/19 08:15 Alkaline Phosphatase 218 units/L (35-129) H 02/14/19 08:15 Ammonia 40.0 umol/L (25-60) 02/13/19 14:15 Total Creatine Kinase 95 units/L (30-135) 02/19/19 07:01 CK-MB (CK-2) 3.6 ng/mL (0.0-4.0) 02/13/19 14:20 CK-MB (CK-2) Rel Index 0.2 (0-4) 02/13/19 14:20 Troponin T 0.072 ng/mL (0.00-0.029) H 02/13/19 14:20 NT-Pro-B Natriuret Pep 6167 pg/mL (0-900) H 02/13/19 14:15 Total Protein 6.2 g/dL (6.3-8.2) L 02/14/19 08:15 Albumin 2.2 g/dL (3.9-5) L 02/14/19 08:15 Albumin/Globulin Ratio 0.6 % 02/14/19 08:15 Triglycerides 329 mg/dL (2-149) H 02/13/19 14:20 Cholesterol 159 mg/dL (50-199) 02/13/19 14:20 LDL Cholesterol Direct 36 mg/dL (50-130) L 02/13/19 14:20 HDL Cholesterol 17 mg/dL (40-59) L 02/13/19 14:20 Cholesterol/HDL Ratio 9.35 % 02/13/19 14:20 Urine Color Steffi (Yellow) 02/14/19 09:07 Urine Turbidity Cloudy (Clear) 02/14/19 09:07 Urine pH 5.0 (5.0-7.0) 02/14/19 09:07 Ur Specific [place] 1.013 (1.003-1.030) 02/14/19 09:07 Urine Protein 100 mg/dl mg/dL (Negative) 02/14/19 09:07 Urine Glucose (UA) 50 mg/dL (Negative) 02/14/19 09:07 Urine Ketones Neg mg/dL (Negative) 02/14/19 09:07 Urine Blood Lg (Negative) 02/14/19 09:07 Urine Nitrite Neg (Negative) 02/14/19 09:07 Urine Bilirubin Neg (Negative) 02/14/19 09:07 Urine Urobilinogen 2.0 mg/dL (<2.0) 02/14/19 09:07 Ur Leukocyte Esterase Lg (Negative) 02/14/19 09:07 Urine WBC (Auto) > 182.0 /HPF (0.0-6.0) H 02/14/19 09:07 Urine RBC (Auto) 9.0 /HPF (0.0-6.0) 02/14/19 09:07 U Epithel Cells (Auto) 1.0 /HPF (0-13.0) 02/14/19 09:07 Urine Bacteria (Auto) 4+ /HPF (Negative) 02/14/19 09:07 Urine WBC Clumps 3+ /HPF 02/14/19 09:07 Ur Transition Epith Cell 1 /HPF 02/14/19 09:07 Urine Mucus Few /HPF 02/14/19 09:07 Vancomycin Trough 14.5 ug/mL (5.0-20.0) 02/15/19 05:32 Urine Opiates Screen Presumptive negative 02/14/19 09:07 Urine Methadone Screen Presumptive negative 02/14/19 09:07 Ur Barbiturates Screen Presumptive negative 02/14/19 09:07 Ur Phencyclidine Scrn Presumptive negative 02/14/19 09:07 Ur Amphetamines Screen Presumptive negative 02/14/19 09:07 U Benzodiazepines Scrn Presumptive negative 02/14/19 09:07 Urine Cocaine Screen Presumptive negative 02/14/19 09:07 U Marijuana (THC) Screen Presumptive negative 02/14/19 09:07 Drugs of Abuse Note Disclamer 02/14/19 09:07 Blood Type B POSITIVE 02/18/19 11:35 Antibody Screen Negative 02/18/19 11:35 Crossmatch See Detail 02/18/19 11:35 Active Medications - Current Medications Current Medications: Generic Name Dose Route Start Last Admin Trade Name Freq PRN Reason Stop Dose Admin Acetaminophen 650 mg 02/13/19 18:03 Tylenol PO Q4H PRN Pain MILD(1-3)/Fever >100.5/MARTÍNEZ Aspirin 81 mg 02/14/19 10:00 02/18/19 11:01 Halfprin Ec PO 81 mg DAILY RAFAEL Administration Clopidogrel Bisulfate 75 mg 02/13/19 19:00 02/18/19 11:01 Plavix PO 75 mg QDAY RAFAEL Administration Dextrose 50 ml 02/14/19 14:03 D50w (25gm) Syringe IV PRN PRN Hypoglycemia Enoxaparin Sodium 40 mg 02/17/19 22:00 02/18/19 22:59 Lovenox SUB-Q 40 mg QHS RAFAEL Administration Hydralazine HCl 10 mg 02/16/19 16:04 Apresoline IV Q4HR PRN BP >160/100 Hydromorphone HCl 0.5 mg 02/13/19 18:03 02/18/19 23:10 Dilaudid IV 02/20/19 23:59 0.5 mg Q3H PRN Administration Pain , Severe (7-10) Hydromorphone HCl 0.5 mg 02/19/19 08:33 Dilaudid IV Q10MIN PRN Pain , Severe (7-10) Sodium Chloride 1,000 mls @ 100 mls/hr 02/13/19 19:00 02/19/19 09:35 Nacl 0.9% 1000 Ml IV 100 mls/hr DIRECT RAFAEL Administration Cefazolin Sodium 2 gm/ Sodium 100 mls @ 200 mls/hr 02/17/19 16:00 02/19/19 08:21 Chloride IV Not Given Q8H [facility] Protocol Insulin Glargine 25 units 02/19/19 10:00 Lantus SUB-Q BID [facility] Insulin Human Lispro 0 unit 02/14/19 16:30 02/19/19 08:25 Humalog SUB-Q Not Given ACHS [facility] Protocol Insulin Human Lispro 8 unit 02/18/19 09:30 02/19/19 08:25 Humalog SUB-Q Not Given AC [facility] Midazolam HCl 2 mg 02/19/19 09:00 02/19/19 09:27 Versed IV 02/19/19 23:59 2 mg PREOP NR Administration Midazolam HCl 2 mg 02/19/19 08:47 Versed IV 02/19/19 23:59 PREOP NR Nifedipine 60 mg 02/16/19 22:00 02/18/19 22:59 Procardia Xl PO 60 mg Q12HR RAFAEL Administration Ondansetron HCl 4 mg 02/13/19 18:03 Zofran IV Q8H PRN Nausea And Vomiting Oxycodone/Acetaminophen 1 tab 02/13/19 18:03 02/18/19 20:36 Percocet 5/325 PO 1 tab Q6H PRN Administration Pain, Moderate (4-6) Sodium Chloride 10 ml 02/13/19 22:00 02/18/19 23:01 Sodium Chloride Flush Syringe 10 Ml IV 10 ml BID RAFAEL Administration Sodium Chloride 10 ml 02/13/19 18:03 Sodium Chloride Flush Syringe 10 Ml IV PRN PRN LINE FLUSH
[2019-02-19] MEDS ORDERED: NACL 0.9% IR ONE ×2 (10:06→10:56)
[2019-02-19] MEDS ORDERED: NEO SYNEPHRINE/NS Syringe(OR USE) IV ONE (10:14)
[2019-02-19] MEDS ORDERED: DILAUDID ONE (10:20)
--- NOTE | 2019-02-19 10:31 | Progress Note ---
Assessment and Plan Cultures: 02/13/2019 blood culture: E. coli, 4 out of 4 bottles 02/14/2019 urine culture: E. coli 02/16/2019 blood cultures: no growth to date A/P: 58-year-old female with hypertension, diabetes mellitus type 2, peripheral vascular disease who was recently hospitalized from vascular surgery clinic due to right second toe gangrene. She underwent thrombolysis of the right lower extremity and underwent a stent placement. She developed compartment syndrome requiring fasciotomy on 01/29/2019 and then was discharged to a rehabilitation facility, admitted with: 1) Sepsis improved, leukocytosis continuing secondary to gram-negative bacteremia: Source is unclear but possibly from right second toe gangrene, Likely urinary tract infection. Fasciotomy wounds appear to be healing well. Currently being treated with Cefazolin. 2) E. coli bacteremia: 4 out of 4 bottles, hobson susceptible. Will deescalate to Cefazolin. If clinically stable, anticipate change to PO antibiotics tomorrow. Repeat blood cultures to ensure clearance. 3) UTI: U/a shows Pyuria, WBC > 182 with large LE. Urine culture grew E.coli. 4) Acute kidney injury: Renal dose antibiotics. Nephrology following. 5) Peripheral vascular disease: Vascular surgery following. Right second toe ischemia and gangrene. s/p excisional debridement of Right Lower Treatment Wounds Including Skin Muscle and Soft Tissue (Medial wound measures 15 x 6.5 x 1 cm , Lateral wound measures 23 x 14 x 1 cm) 6) Diabetes mellitus type 2, uncontrolled. Recs: -continue cefazolin 2gms IV q 8, D6 of D7 -f/u repeat blood cultures to ensure clearance Dr. Cornelius will be alternative medicine practitioner this weekend, , please call for questions. Beverly Joshua NP [facility] M: [phone] O:[phone] Subjective Date of service: 02/19/19 Principal diagnosis: PVD with gangrene right toe, status post fasciotomies Interval history: Patient seen and examined. Returned from surgery. No acute distress observed. Objective - Exam Narrative Exam: Constitutional: Alert, cooperative. No acute distress Head, Ears, Nose: Normocephalic, atraumatic. External ears, nose normal Eyes: Conjunctivae/corneas clear. No icterus. No ptosis. Neck: Supple, no meningeal signs Oral: dentition fair, no thrush Cardiovascular: S1, S2 normal. Respiratory: Good air entry, clear to auscultation bilaterally GI: Soft, non-tender; bowel sounds normal. No peritoneal signs. No CVA or suprapubic tenderness Musculoskeletal: No pedal edema, no cyanosis. Right second toe with blackish discoloration, multiple right calf fasciotomy wounds with dressing Skin: No rash or abscess Hem/Lymphatic: No palpable cervical or supraclavicular nodes. No lymphangitis Psych: Mood ok. Affect normal Neurological: Awake, alert, oriented. No gross abnormality - Constitutional Vitals: Vital Signs Temp Pulse Resp BP Pulse Ox 98.9 F 85 24 139/70 97 02/19/19 08:10 02/19/19 08:10 02/19/19 08:10 02/19/19 08:10 02/19/19 08:10 Temperature -Last 24 Hours Temperature 98.9 F Temperature 98.9 F Temperature 98.1 F Temperature 98.7 F Temperature 98.3 F Temperature 98.4 F Temperature 98.5 F Temperature 98.5 F Temperature 98.3 F Temperature 98.3 F Temperature 98.5 F Temperature 98.4 F Temperature 98.0 F Temperature 98.6 F - Labs CBC & Chem 7: 02/19/19 13:46 02/19/19 07:01 Labs: Abnormal lab results 02/18/19 02/18/19 02/18/19 Range/Units 11:35 11:57 16:32 Sodium (137-145) mmol/L BUN (7-17) mg/dL POC Glucose 197 H 108 H (70-105) Calcium (8.4-10.2) mg/dL Crossmatch See Detail 02/18/19 02/19/19 Range/Units 21:26 07:01 Sodium 135 L (137-145) mmol/L BUN 36 H (7-17) mg/dL POC Glucose 107 H (70-105) Calcium 7.9 L (8.4-10.2) mg/dL Crossmatch
--- NOTE | 2019-02-19 11:42 | Operative Report ---
Operative Report Operative Report: Date of Procedure: 02/19/2019 Pre-operative Diagnosis: Nonhealing Right Lower Extremity Fasciotomy Incisions Post-operative Diagnosis: Same Procedure(s): 1. Excisional Debridement of Right Lower Treatment Wounds Including Skin Muscle and Soft Tissue (Medial wound measures 15 x 6.5 x 1 cm , Lateral wound measures 23 x 14 x 1 cm) Surgeon: Hay Slaughter M.D. Group Therapy Counselor: None Anesthesia: Gen. Endotracheal Anesthesia EBL: 75 mL Counts: Correct Complications: None Condition: Stable Findings: Remaining muscle in all compartments appeared viable Specimen: Skin, muscle, and soft tissue from right lower extremity was sent to pathology Indication: The patient is a 58-year-old female with a history of peripheral vascular disease who had ischemia of her right lower extremity that required thrombolysis resulting in adequate revascularization. This subsequently led to compartment syndrome of her right leg requiring a 4 compartment fasciotomy of her right lower extremity. After the fasciotomy she was able to have closure of her medial incision and had a wound VAC placed on the lateral incision. She presented to the hospital with breakdown of the wound and now requires debridement. She was given the risks, benefits, and alternative procedures and consented to the procedure. Description of Procedure: The patient was brought into the operating room and laid in supine position. After general endotracheal anesthesia was achieved the right leg was prepped and draped in normal sterile fashion. The jumana were removed from her medial incision. A significant amount of the skin flaps from the closure was nonviable. Curved Mayos were used to transect the nonviable skin and soft tissue. Additionally the curved Mayos were used to debride any nonviable muscle that was identified within the wound. The wound was explored and the remainder of the muscle appeared to be viable. There was old hematoma that was identified at the superior aspect of the incision and this was adequately drained. Fibrinous exudate within the wound was sharply debrided with a 10 blade. I then used a curved Mayos to transect all nonviable skin on the lateral wound edge. Pulse lavage was used to further debride any fibrinous exudate from both wounds. There was desiccated muscle that was debrided from the lateral wound however the remaining muscle was all viable. Hemostasis within both wounds was achieved with a combination of direct pressure and cautery. Once hemostasis was achieved the wounds were dressed with Xeroform gauze, fluffs, ABD pads, a loose Kerlix roll, and a four-inch Myles bandage. The patient tolerated the procedure well. All sponge, needle, and instrument counts were correct. The patient was taken to the recovery area in stable condition.
[2019-02-19] MEDS: PERCOCET 5/325 PO PRN ×2 (12:36→23:21)
[2019-02-19] MEDS: PROCARDIA XL PO SCH ×2 (12:36→21:23)
[2019-02-19] MEDS: PLAVIX PO SCH (12:36)
[2019-02-19] MEDS: HALFPRIN EC PO SCH (12:37)
[2019-02-19] MEDS: SODIUM CHLORIDE FLUSH SYRINGE 10 ML IV SCH (12:37)
[2019-02-19] MEDS: LANTUS SUB-Q SCH ×2 (12:44→23:19)
[2019-02-19 14:06] LABS: Hematocrit 23.3 % (30.3-42.9); Hemoglobin 7.5 gm/dl (10.1-14.3); Mean Corpuscular HGB Conc 32 % (30-34); Mean Corpuscular Volume 89 fl (79-97); Platelet Count 431 K/mm3 (140-440); Red Blood Count 2.63 M/mm3 (3.65-5.03); Red Cell Distribution Width 16.6 % (13.2-15.2)
--- NOTE | 2019-02-19 15:44 | Event Note ---
Date: 02/19/19 Called to see patient for bleeding after her operative procedure. Moderate serosanguinous drainage on the massimo with some clot. Foot warm. No evidence of active bleeding at this time. Will continue to monitor.
[2019-02-19 15:45] LABS: Band Neutrophils # (Manual) 0.1 K/mm3; Basophils % (Manual) 0 % (0.0-1.8); Myelocytes # (Manual) 0.2 K/mm3; Platelet Clumps Few; Platelet Estimate Consistent w Auto; RBC Morphology Normal; Total Cells Counted 100
[2019-02-19] MEDS: DILAUDID IV PRN (21:18)
[2019-02-19] MEDS: LOVENOX SUB-Q SCH ×2 (23:36→23:46)
[2019-02-20] MEDS: DILAUDID IV PRN ×3 (04:35→16:07)
[2019-02-20] MEDS: SODIUM CHLORIDE FLUSH SYRINGE 10 ML IV SCH ×3 (04:37→22:37)
[2019-02-20] MEDS: PERCOCET 5/325 PO PRN ×3 (06:29→22:36)
[2019-02-20] MEDS: HumaLOG SUB-Q SCH ×7 (08:00→22:37)
[2019-02-20 08:09] LABS: BUN/Creatinine Ratio 26; Blood Urea Nitrogen 23 mg/dL (7-17); Calcium 7.4 mg/dL (8.4-10.2); Hemolysis Index 0
[2019-02-20] MEDS: ceFAZolin 2 GM in NACL 0.9% 100 ML IV SCH ×2 (08:13→16:04)
--- NOTE | 2019-02-20 08:44 | Discharge Summary ---
Providers - Providers Date of Admission: 02/13/19 18:03 Attending physician: DALI CASTELAN MD 02/13/19 18:03 Consult to Physician [CONS] Routine Comment: Consulting Provider: ELVI MOORE Physician Instructions: Reason For Exam: PAD 02/14/19 14:03 Consult to Physician [CONS] Routine Comment: Consulting Provider: KIMBERLY BAEZ Physician Instructions: Reason For Exam: geraldine Consult to Physician [CONS] Routine Comment: Consulting Provider: RACHEL GIL Physician Instructions: Reason For Exam: sepis 02/14/19 14:39 Consult to Wound/ET Nurse [CONS] Routine Reason For Exam: wound eval 02/15/19 09:06 Physical Therapy Evaluation and Treat [CONS] Routine Comment: Reason For Exam: RLE revasc 02/17/19 17:54 Consult to Physician [CONS] Routine Comment: Consulting Provider: FLORENTINO GALLAGHER Physician Instructions: Reason For Exam: left second toe gangrene Primary care physician: RN TRAVELING Hospitalization Condition: Stable Hospital course: 58F who was sent from rehab facility for confusion and lethargy recently admitted and had ekos, arterial Thrombolysis to RLE for RLE ischemia, and R leg 4 compartment fasciotomy on 01/[address] Jeong Vascular duplex shows Right iliac arterial stenosis CT head; no acute findings CXR no acute findings Labs; UA > 182 WBC Micro; urine and blood growing ecoli sens to current abx Diagnosis sepsis, ecoli Bactermia and Ecoli UTI anemia, likely due to chronic disease HHNK, Type 2 DM, A1c 9 Hyponatremia, likely pseudohyponatremia of hyperglycemia Hyperkalemia GERALDINE- likely ATN Hypomagesemia- resolved PAD hx of RLE ischemia, sp thrombolysis, revascularization and fascitomy Right second toe dry gangrene Rhabdomylsis, non traumatic acute metabolic enncephalopathy Hospital course He was found to have Escherichia coli UTI and bacteremia. The patient was treated with antibiotic course which she completed in the hospital. She was co- managed by ID Insulins and blood pressure medications were optimized Magnesium was repleted, patient received Kayexalate on 02/21 hyperkalemia 1 unit prbc given on 02/18 She was seen by vascular surgery, she received debridement of her right lower extremity. She will need to follow up as outpatient with her vascular surgeon Dr. Gallagher for outpatient secondary to amputation versus referral to podiatry for excision of that digit. DVT ppx- chemical she was planned for discharge back to rehabilitation facility. But the patient refused and elected to go home with home health - Disposition: [id number] HOME UNDER HOME HL Time spent for discharge: 33 mins Core Measure Documentation - Palliative Care Palliative Care/ Comfort Measures: Not Applicable - Core Measures Any of the following diagnoses?: none Exam - Physical Exam Narrative exam: General.: Appears well, no distress, nontoxic HEENT: Moist mucous membranes, extraocular muscles intact, no lymphadenopathy Neck: supple Cardiac: S1-S2 heard Lungs: clear to auscultation bilaterally Abdomen: soft , nontender, nondistended, bowel sounds positive Extremities: ; R second toe dry gangrene R leg open wound- large, from fasciotomy Skin: no rash or lesions Neurologic: no gross focal deficits Psych: calm, and cooperative - Constitutional Vitals: Temp Pulse Resp BP Pulse Ox 99.5 F 92 H 35 H 118/53 100 02/20/19 04:00 02/20/19 04:00 02/20/19 04:35 02/19/19 11:54 02/20/19 04:00 Plan Follow up with: PRIMARY CARE, [Primary Care Provider] - 3-5 Days Prescriptions: Valsartan [Diovan] 160 mg PO BID #60 tablet Lispro Insulin [Humalog] 5 unit SUB-Q AC 30 Days units Insulin Lispro [HumaLOG VIAL] 0 units SQ AC #1 vial Insulin Glargine [Lantus VIAL] 22 units SUB-Q DAILY #1 vial oxyCODONE /ACETAMINOPHEN [Percocet 5/325 mg] 1 tab PO Q6H PRN #20 tablet PRN Reason: Pain, Moderate (4-6) Multivitamin with Iron [Tab-A-Lupe with Iron] 1 each PO DAILY #30 tablet
[2019-02-20] MEDS: HALFPRIN EC PO SCH (09:57)
[2019-02-20] MEDS: PLAVIX PO SCH (09:57)
[2019-02-20] MEDS: PROCARDIA XL PO SCH ×2 (09:58→22:36)
[2019-02-20] MEDS: LANTUS SUB-Q SCH ×2 (10:04→22:38)
[2019-02-20] MEDS: NACL 0.9% 1000 ML 1,000 ML IV SCH ×2 (10:05→20:12)
--- NOTE | 2019-02-20 12:40 | Progress Note ---
Assessment and Plan - Patient Problems (1) GERALDINE (acute kidney injury) Current Visit: Yes Status: Acute Plan to address problem: renal function is stable. stable for discharge from renal stand point (2) Encephalopathy acute Current Visit: Yes Status: Acute Plan to address problem: now back to her baseline (3) Hyponatremia Current Visit: Yes Status: Acute Plan to address problem: improved (4) Hyperkalemia Current Visit: Yes Status: Acute Plan to address problem: In the setting of hyperglycemia/poorly controlled DM and GERALDINE. improved with control of her hyperglycemia/diabetes. Maintain on low K diet. (5) Hyperosmolar non-ketotic state in patient with type 2 diabetes mellitus Current Visit: Yes Status: Acute Plan to address problem: Management per primary attending. (6) Peripheral vascular disease Current Visit: Yes Status: Acute Plan to address problem: s/p fasciotomy in the setting of developing acute compartment syndrome post thrombolysis. Management per vascular surgery. s/p debridement of RLE wound (7) Sepsis Current Visit: Yes Status: Acute Qualifiers: Sepsis type: sepsis due to unspecified organism Qualified Code(s): A41.9 - Sepsis, unspecified organism Plan to address problem: Antibiotics to be dosed per her decreased renal clearance. She has now been placed on IV cefazolin per ID Subjective Date of service: 02/20/19 Principal diagnosis: PVD with gangrene right toe, status post fasciotomies Interval history: pt awake, alert, in NAD Objective - Vital Signs Vital signs: Vital Signs - 12hr 02/20/19 02/20/19 02/20/19 04:00 04:35 08:00 Temperature 99.5 F Pulse Rate [ 92 H 97 H From Monitor] Respiratory 35 H Rate O2 Sat by Pulse 100 100 Oximetry - General Appearance General appearance: well-developed, well-nourished, appears stated age EENT: ATNC, PERRL, mucous membranes moist Neck: no JVD Respiratory: Present: Clear to Ascultation Cardiology: regular, S1S2 Gastrointestinal: normoactive bowel sounds Integumentary: no rash Neurologic: no focal deficit, alert and oriented x3, strength 5/5, CN 3-12 intact Psychiatric: mood/affect appropriate, cooperative - Lab 02/19/19 13:46 02/20/19 06:07 Most recent lab results Calcium 7.4 mg/dL (8.4-10.2) L 03/23/19 06:07 Phosphorus 3.10 mg/dL (2.5-4.5) 02/15/19 05:32 Magnesium 2.80 mg/dL (1.7-2.3) H 02/15/19 05:32 Medications & Allergies - Medications Allergies/Adverse Reactions: Allergies No Known Allergies Allergy (Verified 01/28/19 21:26) Home Medications: Home Medications Medication Instructions Recorded Confirmed Last Taken Type Aspirin [Low Dose Aspirin EC] 81 mg PO DAILY #30 tablet. 02/04/19 02/16/19 02/14/19 10:00 Rx Clopidogrel [Plavix] 75 mg PO QDAY #30 tablet 02/04/19 02/16/19 02/14/19 10:00 Rx Insulin Glargine [Lantus VIAL] 25 units SUB-Q BID 30 Days units 02/20/19 Unknown Rx Lispro Insulin [Humalog] 0 unit SUB-Q ACHS units 02/20/19 Unknown Rx Lispro Insulin [Humalog] 5 unit SUB-Q AC 30 Days units 02/20/19 Unknown Rx Multivitamin with Iron [Tab-A-Lupe 1 each PO DAILY #30 tablet 02/20/19 Unknown Rx with Iron] Valsartan [Diovan] 160 mg PO BID #60 tablet 02/20/19 Unknown Rx oxyCODONE /ACETAMINOPHEN [Percocet 1 tab PO Q6H PRN #20 tablet 02/20/19 Unknown Rx 5/325 mg] Active Medications: Generic Name Dose Route Start Last Admin Trade Name Freq PRN Reason Stop Dose Admin Acetaminophen 650 mg 02/13/19 18:03 Tylenol PO Q4H PRN Pain MILD(1-3)/Fever >100.5/MARTÍNEZ Aspirin 81 mg 02/14/19 10:00 02/20/19 09:57 Halfprin Ec PO 81 mg DAILY RAFAEL Administration Clopidogrel Bisulfate 75 mg 02/13/19 19:00 02/20/19 09:57 Plavix PO 75 mg QDAY RAFAEL Administration Dextrose 50 ml 02/14/19 14:03 D50w (25gm) Syringe IV PRN PRN Hypoglycemia Hydralazine HCl 10 mg 02/16/19 16:04 Apresoline IV Q4HR PRN BP >160/100 Hydromorphone HCl 0.5 mg 02/13/19 18:03 02/20/19 08:14 Dilaudid IV 02/20/19 23:59 0.5 mg Q3H PRN Administration Pain , Severe (7-10) Hydromorphone HCl 0.5 mg 02/19/19 08:33 Dilaudid IV Q10MIN PRN Pain , Severe (7-10) Sodium Chloride 1,000 mls @ 100 mls/hr 02/13/19 19:00 02/20/19 10:05 Nacl 0.9% 1000 Ml IV 100 mls/hr DIRECT RAFAEL Administration Cefazolin Sodium 2 gm/ Sodium 100 mls @ 200 mls/hr 02/17/19 16:00 02/20/19 08:13 Chloride IV 200 mls/hr Q8H RAFAEL Administration Protocol Insulin Glargine 25 units 02/19/19 10:00 02/20/19 10:04 Lantus SUB-Q 25 units BID RAFAEL Administration Insulin Human Lispro 0 unit 02/14/19 16:30 02/20/19 12:14 Humalog SUB-Q 3 unit ACHS RAFAEL Administration Protocol Insulin Human Lispro 5 unit 02/20/19 08:44 02/20/19 12:14 Humalog SUB-Q 5 unit AC RAFAEL Administration Nifedipine 60 mg 02/16/19 22:00 02/20/19 09:58 Procardia Xl PO 60 mg Q12HR RAFAEL Administration Ondansetron HCl 4 mg 02/13/19 18:03 Zofran IV Q8H PRN Nausea And Vomiting Oxycodone/Acetaminophen 1 tab 02/13/19 18:03 02/20/19 12:05 Percocet 5/325 PO 1 tab Q6H PRN Administration Pain, Moderate (4-6) Sodium Chloride 10 ml 02/13/19 22:00 02/20/19 09:58 Sodium Chloride Flush Syringe 10 Ml IV 10 ml BID RAFAEL Administration Sodium Chloride 10 ml 02/13/19 18:03 Sodium Chloride Flush Syringe 10 Ml IV PRN PRN LINE FLUSH
--- NOTE | 2019-02-20 21:08 | Progress Note ---
Assessment and Plan Needs aggressive wound care and likely hyperbaric oxygen in order to heal her wounds. would no recommend discharging until she is evaluated by wound care and an exact plan for wound care management has been established. She is at increas ed risk of limb loss without improved wound care. Subjective Date of service: 02/20/19 Principal diagnosis: PVD with gangrene right toe, status post fasciotomies Interval history: Patient complaining of pain in her right leg with movement. No other complaints. Objective - Constitutional Vitals: Vital Signs - 12hr 02/20/19 02/20/19 02/20/19 10:00 12:00 16:00 Temperature Pulse Rate 102 H Pulse Rate [ 102 H 100 H From Monitor] O2 Sat by Pulse 99 100 Oximetry 02/20/19 20:00 Temperature 99.7 F H Pulse Rate Pulse Rate [ From Monitor] O2 Sat by Pulse Oximetry General appearance: Present: no acute distress - Respiratory Respiratory effort: normal Extremities: abnormal (Right leg wound dressings changed, significnat amount of serous drainage from wounds. No active bleeding. Muscle viable. ) - Labs CBC & Chem 7: 02/19/19 13:46 02/20/19 06:07 Labs: Abnormal lab results 02/19/19 02/20/19 02/20/19 Range/Units 22:04 02:47 05:25 BUN (7-17) mg/dL Glucose (65-100) mg/dL POC Glucose 298 H 136 H 106 H (70-105) Calcium (8.4-10.2) mg/dL 02/20/19 02/20/19 02/20/19 Range/Units 06:07 07:55 12:17 BUN 23 H (7-17) mg/dL Glucose 105 H (65-100) mg/dL POC Glucose 112 H 195 H (70-105) Calcium 7.4 L (8.4-10.2) mg/dL 02/20/19 Range/Units 16:34 BUN (7-17) mg/dL Glucose (65-100) mg/dL POC Glucose 117 H (70-105) Calcium (8.4-10.2) mg/dL Medications & Allergies - Medications Allergies/Adverse Reactions: Allergies No Known Allergies Allergy (Verified 01/28/19 21:26) Home Medications: Home Medications Medication Instructions Recorded Confirmed Last Taken Type Aspirin [Low Dose Aspirin EC] 81 mg PO DAILY #30 tablet. 02/04/19 02/16/19 02/14/19 10:00 Rx Clopidogrel [Plavix] 75 mg PO QDAY #30 tablet 02/04/19 02/16/19 02/14/19 10:00 Rx Insulin Glargine [Lantus VIAL] 25 units SUB-Q BID 30 Days units 02/20/19 Unknown Rx Lispro Insulin [Humalog] 0 unit SUB-Q ACHS units 02/20/19 Unknown Rx Lispro Insulin [Humalog] 5 unit SUB-Q AC 30 Days units 02/20/19 Unknown Rx Multivitamin with Iron [Tab-A-Lupe 1 each PO DAILY #30 tablet 02/20/19 Unknown Rx with Iron] Valsartan [Diovan] 160 mg PO BID #60 tablet 02/20/19 Unknown Rx oxyCODONE /ACETAMINOPHEN [Percocet 1 tab PO Q6H PRN #20 tablet 02/20/19 Unknown Rx 5/325 mg] Active Medications: Generic Name Dose Route Start Last Admin Trade Name Freq PRN Reason Stop Dose Admin Acetaminophen 650 mg 02/13/19 18:03 Tylenol PO Q4H PRN Pain MILD(1-3)/Fever >100.5/MARTÍNEZ Aspirin 81 mg 02/14/19 10:00 02/20/19 09:57 Halfprin Ec PO 81 mg DAILY RAFAEL Administration Clopidogrel Bisulfate 75 mg 02/13/19 19:00 02/20/19 09:57 Plavix PO 75 mg QDAY RAFAEL Administration Dextrose 50 ml 02/14/19 14:03 D50w (25gm) Syringe IV PRN PRN Hypoglycemia Hydralazine HCl 10 mg 02/16/19 16:04 Apresoline IV Q4HR PRN BP >160/100 Hydromorphone HCl 0.5 mg 02/13/19 18:03 02/20/19 16:07 Dilaudid IV 02/20/19 23:59 0.5 mg Q3H PRN Administration Pain , Severe (7-10) Hydromorphone HCl 0.5 mg 02/19/19 08:33 Dilaudid IV Q10MIN PRN Pain , Severe (7-10) Sodium Chloride 1,000 mls @ 100 mls/hr 02/13/19 19:00 02/20/19 20:12 Nacl 0.9% 1000 Ml IV 100 mls/hr DIRECT RAFAEL Administration Cefazolin Sodium 2 gm/ Sodium 100 mls @ 200 mls/hr 02/17/19 16:00 02/20/19 16:04 Chloride IV 200 mls/hr Q8H RAFAEL Administration Protocol Insulin Glargine 25 units 02/19/19 10:00 02/20/19 10:04 Lantus SUB-Q 25 units BID RAFAEL Administration Insulin Human Lispro 0 unit 02/14/19 16:30 02/20/19 17:51 Humalog SUB-Q Not Given ACHS RAFAEL Protocol Insulin Human Lispro 5 unit 02/20/19 08:44 02/20/19 12:14 Humalog SUB-Q 5 unit AC RAFAEL Administration Nifedipine 60 mg 02/16/19 22:00 02/20/19 09:58 Procardia Xl PO 60 mg Q12HR RAFAEL Administration Ondansetron HCl 4 mg 02/13/19 18:03 Zofran IV Q8H PRN Nausea And Vomiting Oxycodone/Acetaminophen 1 tab 02/13/19 18:03 02/20/19 12:05 Percocet 5/325 PO 1 tab Q6H PRN Administration Pain, Moderate (4-6) Sodium Chloride 10 ml 02/13/19 22:00 02/20/19 09:58 Sodium Chloride Flush Syringe 10 Ml IV 10 ml BID RAFAEL Administration Sodium Chloride 10 ml 02/13/19 18:03 Sodium Chloride Flush Syringe 10 Ml IV PRN PRN LINE FLUSH
[2019-02-21] MEDS: ceFAZolin 2 GM in NACL 0.9% 100 ML IV SCH (00:25)
[2019-02-21] MEDS: NACL 0.9% 1000 ML 1,000 ML IV SCH ×2 (06:34→17:37)
[2019-02-21] MEDS: HumaLOG SUB-Q SCH ×7 (08:45→22:00)
[2019-02-21] MEDS: PLAVIX PO SCH (10:13)
[2019-02-21] MEDS: HALFPRIN EC PO SCH (10:13)
[2019-02-21] MEDS: LANTUS SUB-Q SCH ×2 (10:13→22:00)
[2019-02-21] MEDS: PROCARDIA XL PO SCH ×2 (10:14→22:06)
[2019-02-21] MEDS: SODIUM CHLORIDE FLUSH SYRINGE 10 ML IV SCH ×2 (10:14→22:07)
--- NOTE | 2019-02-21 10:19 | Progress Note ---
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 CT head; no acute findings CXR no acute findings Labs; UA > 182 WBC Micro; urine and blood growing ecoli sens to current abx Diagnosis sepsis, ecoli Bactermia and Ecoli UTI anemia, likely due to chronic disease HHNK, Type 2 DM, A1c 9 Hyponatremia, likely pseudohyponatremia of hyperglycemia Hyperkalemia GERALDINE- likely ATN Hypomagesemia- resolved PAD hx of RLE ischemia, sp thrombolysis, revascularization and fascitomy dry gangrene, R second toe Rhabdomylsis, non traumatic acute metabolic enncephalopathy Plan has completed abx, ID consult appreciated optimize insulins and BP meds, IVF, renal US, nephrology consult appreciated, Cr improving Mg was repleted, Kayexalate given on 02/17, 1 unit prbc given on 02/18 vascular consult appreciated, sp debridement of R leg wound on 02/20, necrotic tissue removed, need to fup as outpatient for amputation of R second toe DVT ppx- chemical Dispo; back to SNF, she is refusing, and wants to go home with home health History Interval history: Review of systems Constitutional: No fevers, no malaise, no joint pains CVS: No chest pain, no orthopnea, no dyspnea on exertion, no pedal edema GI: No abdominal pain, no diarrhea, no vomiting, no constipation Respiratory: No shortness of breath, no wheezing, no coughing Hospitalist Physical - Physical exam Narrative exam: General.: Appears well, no distress, nontoxic HEENT: Moist mucous membranes, extraocular muscles intact, no lymphadenopathy Neck: supple Cardiac: S1-S2 heard Lungs: clear to auscultation bilaterally Abdomen: soft , nontender, nondistended, bowel sounds positive Extremities: ; R second toe dry gangrene R leg open wound- large, from fasciotomy Skin: no rash or lesions Neurologic: no gross focal deficits Psych: calm, and cooperative - Constitutional Vitals: Temp Pulse Resp BP Pulse Ox 99.2 F 103 H 26 H 118/53 93 02/21/19 07:00 02/21/19 08:00 02/21/19 08:00 02/19/19 11:54 02/21/19 08:00 General appearance: Present: no acute distress Results - Labs CBC & Chem 7: 02/19/19 13:46 02/22/19 08:26 Labs: Laboratory Last Values WBC 12.0 K/mm3 (4.5-11.0) H 02/19/19 13:46 RBC 2.63 M/mm3 (3.65-5.03) L 02/19/19 13:46 Hgb 7.5 gm/dl (10.1-14.3) L 02/19/19 13:46 Hct 23.3 % (30.3-42.9) L 02/19/19 13:46 MCV 89 fl (79-97) 02/19/19 13:46 MCH 29 pg (28-32) 02/19/19 13:46 MCHC 32 % (30-34) 02/19/19 13:46 RDW 16.6 % (13.2-15.2) H 02/19/19 13:46 Plt Count 431 K/mm3 (140-440) 02/19/19 13:46 Lymph % (Auto) Manager Medical 02/17/19 10:41 [place] % (Auto) Manager Medical 02/17/19 10:41 Eos % (Auto) Manager Medical 02/17/19 10:41 Baso % (Auto) Manager Medical 02/17/19 10:41 Lymph # Manager Medical 02/17/19 10:41 [place] # Manager Medical 02/17/19 10:41 Eos # Manager Medical 02/17/19 10:41 Baso # Manager Medical 02/17/19 10:41 Add Manual Diff Complete 02/19/19 13:46 Total Counted 100 02/19/19 13:46 Seg Neutrophils % Manager Medical 02/17/19 10:41 Seg Neuts % (Manual) 74.0 % (40.0-70.0) H 02/19/19 13:46 Band Neutrophils % 1.0 % 02/19/19 13:46 Lymphocytes % (Manual) 16.0 % (13.4-35.0) 02/19/19 13:46 Reactive Lymphs % (Man) 0 % 02/19/19 13:46 Monocytes % (Manual) 6.0 % (0.0-7.3) 02/19/19 13:46 Eosinophils % (Manual) 1.0 % (0.0-4.3) 02/19/19 13:46 Basophils % (Manual) 0 % (0.0-1.8) 02/19/19 13:46 Metamyelocytes % 0 % 02/19/19 13:46 Myelocytes % 2.0 % 02/19/19 13:46 Promyelocytes % 0 % 02/19/19 13:46 Blast Cells % 0 % 02/19/19 13:46 Nucleated RBC % Not Reportable 02/19/19 13:46 Seg Neutrophils # Manager Medical 02/17/19 10:41 Seg Neutrophils # Man 8.9 K/mm3 (1.8-7.7) H 02/19/19 13:46 Band Neutrophils # 0.1 K/mm3 02/19/19 13:46 Lymphocytes # (Manual) 1.9 K/mm3 (1.2-5.4) 02/19/19 13:46 Abs React Lymphs (Man) 0.0 K/mm3 02/19/19 13:46 Monocytes # (Manual) 0.7 K/mm3 (0.0-0.8) 02/19/19 13:46 Eosinophils # (Manual) 0.1 K/mm3 (0.0-0.4) 02/19/19 13:46 Basophils # (Manual) 0.0 K/mm3 (0.0-0.1) 02/19/19 13:46 Metamyelocytes # 0.0 K/mm3 02/19/19 13:46 Myelocytes # 0.2 K/mm3 02/19/19 13:46 Promyelocytes # 0.0 K/mm3 02/19/19 13:46 Blast Cells # 0.0 K/mm3 02/19/19 13:46 WBC Morphology Not Reportable 02/19/19 13:46 Hypersegmented Neuts Not Reportable 02/19/19 13:46 Hyposegmented Neuts Not Reportable 02/19/19 13:46 Hypogranular Neuts Not Reportable 02/19/19 13:46 Smudge Cells Not Reportable 02/19/19 13:46 Toxic Granulation Not Reportable 02/19/19 13:46 Toxic Vacuolation Not Reportable 02/19/19 13:46 Dohle Bodies Not Reportable 02/19/19 13:46 Pelger-Huet Anomaly Not Reportable 02/19/19 13:46 Cisco Rods Not Reportable 02/19/19 13:46 Platelet Estimate Consistent w auto 02/19/19 13:46 Clumped Platelets Few 02/19/19 13:46 Plt Clumps, EDTA Not Reportable 02/19/19 13:46 Large Platelets Not Reportable 02/19/19 13:46 Giant Platelets Not Reportable 02/19/19 13:46 Platelet Satelliting Not Reportable 02/19/19 13:46 Plt Morphology Comment Not Reportable 02/19/19 13:46 RBC Morphology Normal 02/19/19 13:46 Dimorphic RBCs Not Reportable 02/19/19 13:46 Polychromasia Not Reportable 02/19/19 13:46 Hypochromasia Not Reportable 02/19/19 13:46 Poikilocytosis Not Reportable 02/19/19 13:46 Anisocytosis Not Reportable 02/19/19 13:46 Microcytosis Not Reportable 02/19/19 13:46 Macrocytosis Not Reportable 02/19/19 13:46 Spherocytes Not Reportable 02/19/19 13:46 Pappenheimer Bodies Not Reportable 02/19/19 13:46 Sickle Cells Not Reportable 02/19/19 13:46 Target Cells Not Reportable 02/19/19 13:46 Tear Drop Cells Not Reportable 02/19/19 13:46 Ovalocytes Not Reportable 02/19/19 13:46 Helmet Cells Not Reportable 02/19/19 13:46 [place] Bodies Not Reportable 02/19/19 13:46 [place] Rings Not Reportable 02/19/19 13:46 Vipul Cells Not Reportable 02/19/19 13:46 Bite Cells Not Reportable 02/19/19 13:46 Crenated Cell Not Reportable 02/19/19 13:46 Elliptocytes Not Reportable 02/19/19 13:46 Acanthocytes (Spur) Not Reportable 02/19/19 13:46 Rouleaux Not Reportable 02/19/19 13:46 Hemoglobin C Crystals Not Reportable 02/19/19 13:46 Schistocytes Not Reportable 02/19/19 13:46 Malaria parasites Not Reportable 02/19/19 13:46 [place]o Bodies Not Reportable 02/19/19 13:46 Hem Pathologist Commnt No 02/19/19 13:46 PT 15.6 Sec. (12.2-14.9) H 02/13/19 14:15 INR 1.17 (0.87-1.13) H 02/13/19 14:15 APTT 26.6 Sec. (24.2-36.6) 02/13/19 14:15 VBG pH 7.379 (7.320-7.420) 02/13/19 14:08 Sodium 137 mmol/L (137-145) 02/20/19 06:07 Potassium 4.4 mmol/L (3.6-5.0) 02/20/19 06:07 Chloride 104.6 mmol/L (98-107) 02/20/19 06:07 Carbon Dioxide 23 mmol/L (22-30) 02/20/19 06:07 Anion Gap 14 mmol/L 02/20/19 06:07 BUN 23 mg/dL (7-17) H 02/20/19 06:07 Creatinine 0.9 mg/dL (0.7-1.2) 02/20/19 06:07 Estimated GFR > 60 ml/min 02/20/19 06:07 BUN/Creatinine Ratio 26 % 02/20/19 06:07 Glucose 105 mg/dL (65-100) H 02/20/19 06:07 POC Glucose 93 (70-105) 02/21/19 06:33 Hemoglobin A1c 9.2 % (4-6) H 02/13/19 18:15 Ketones Quantitative Negative (Negative) 02/13/19 14:08 Calcium 7.4 mg/dL (8.4-10.2) L 02/20/19 06:07 Phosphorus 3.10 mg/dL (2.5-4.5) 02/15/19 05:32 Magnesium 2.80 mg/dL (1.7-2.3) H 02/15/19 05:32 Total Bilirubin 1.60 mg/dL (0.1-1.2) H 02/14/19 08:15 Direct Bilirubin 1.1 mg/dL (0-0.2) H 02/13/19 14:08 Indirect Bilirubin 0.4 mg/dL 02/13/19 14:08 AST 47 units/L (5-40) H 02/14/19 08:15 ALT 33 units/L (7-56) 02/14/19 08:15 Alkaline Phosphatase 218 units/L (35-129) H 02/14/19 08:15 Ammonia 40.0 umol/L (25-60) 02/13/19 14:15 Total Creatine Kinase 104 units/L (30-135) 02/20/19 06:07 CK-MB (CK-2) 3.6 ng/mL (0.0-4.0) 02/13/19 14:20 CK-MB (CK-2) Rel Index 0.2 (0-4) 02/13/19 14:20 Troponin T 0.072 ng/mL (0.00-0.029) H 02/13/19 14:20 NT-Pro-B Natriuret Pep 6167 pg/mL (0-900) H 02/13/19 14:15 Total Protein 6.2 g/dL (6.3-8.2) L 02/14/19 08:15 Albumin 2.2 g/dL (3.9-5) L 02/14/19 08:15 Albumin/Globulin Ratio 0.6 % 02/14/19 08:15 Triglycerides 329 mg/dL (2-149) H 02/13/19 14:20 Cholesterol 159 mg/dL (50-199) 02/13/19 14:20 LDL Cholesterol Direct 36 mg/dL (50-130) L 02/13/19 14:20 HDL Cholesterol 17 mg/dL (40-59) L 02/13/19 14:20 Cholesterol/HDL Ratio 9.35 % 02/13/19 14:20 Urine Color Steffi (Yellow) 02/14/19 09:07 Urine Turbidity Cloudy (Clear) 02/14/19 09:07 Urine pH 5.0 (5.0-7.0) 02/14/19 09:07 Ur Specific [place] 1.013 (1.003-1.030) 02/14/19 09:07 Urine Protein 100 mg/dl mg/dL (Negative) 02/14/19 09:07 Urine Glucose (UA) 50 mg/dL (Negative) 02/14/19 09:07 Urine Ketones Neg mg/dL (Negative) 02/14/19 09:07 Urine Blood Lg (Negative) 02/14/19 09:07 Urine Nitrite Neg (Negative) 02/14/19 09:07 Urine Bilirubin Neg (Negative) 02/14/19 09:07 Urine Urobilinogen 2.0 mg/dL (<2.0) 02/14/19 09:07 Ur Leukocyte Esterase Lg (Negative) 02/14/19 09:07 Urine WBC (Auto) > 182.0 /HPF (0.0-6.0) H 02/14/19 09:07 Urine RBC (Auto) 9.0 /HPF (0.0-6.0) 02/14/19 09:07 U Epithel Cells (Auto) 1.0 /HPF (0-13.0) 02/14/19 09:07 Urine Bacteria (Auto) 4+ /HPF (Negative) 02/14/19 09:07 Urine WBC Clumps 3+ /HPF 02/14/19 09:07 Ur Transition Epith Cell 1 /HPF 02/14/19 09:07 Urine Mucus Few /HPF 02/14/19 09:07 Vancomycin Trough 14.5 ug/mL (5.0-20.0) 02/15/19 05:32 Urine Opiates Screen Presumptive negative 02/14/19 09:07 Urine Methadone Screen Presumptive negative 02/14/19 09:07 Ur Barbiturates Screen Presumptive negative 02/14/19 09:07 Ur Phencyclidine Scrn Presumptive negative 02/14/19 09:07 Ur Amphetamines Screen Presumptive negative 02/14/19 09:07 U Benzodiazepines Scrn Presumptive negative 02/14/19 09:07 Urine Cocaine Screen Presumptive negative 02/14/19 09:07 U Marijuana (THC) Screen Presumptive negative 02/14/19 09:07 Drugs of Abuse Note Disclamer 02/14/19 09:07 Blood Type B POSITIVE 02/18/19 11:35 Antibody Screen Negative 02/18/19 11:35 Crossmatch See Detail 02/18/19 11:35 Active Medications - Current Medications Current Medications: Generic Name Dose Route Start Last Admin Trade Name Freq PRN Reason Stop Dose Admin Acetaminophen 650 mg 02/13/19 18:03 Tylenol PO Q4H PRN Pain MILD(1-3)/Fever >100.5/MARTÍNEZ Aspirin 81 mg 02/14/19 10:00 02/20/19 09:57 Halfprin Ec PO 81 mg DAILY RAFAEL Administration Clopidogrel Bisulfate 75 mg 02/13/19 19:00 02/20/19 09:57 Plavix PO 75 mg QDAY RAFAEL Administration Dextrose 50 ml 02/14/19 14:03 D50w (25gm) Syringe IV PRN PRN Hypoglycemia Hydralazine HCl 10 mg 02/16/19 16:04 Apresoline IV Q4HR PRN BP >160/100 Hydromorphone HCl 0.5 mg 02/19/19 08:33 Dilaudid IV Q10MIN PRN Pain , Severe (7-10) Sodium Chloride 1,000 mls @ 100 mls/hr 02/13/19 19:00 02/21/19 06:34 Nacl 0.9% 1000 Ml IV 100 mls/hr DIRECT RAFAEL Administration Insulin Glargine 25 units 02/19/19 10:00 02/20/19 22:38 Lantus SUB-Q 25 units BID RAFAEL Administration Insulin Human Lispro 0 unit 02/14/19 16:30 02/20/19 22:37 Humalog SUB-Q 3 unit ACHS RAFAEL Administration Protocol Insulin Human Lispro 5 unit 02/20/19 08:44 02/20/19 12:14 Humalog SUB-Q 5 unit AC RAFAEL Administration Nifedipine 60 mg 02/16/19 22:00 02/20/19 22:36 Procardia Xl PO 60 mg Q12HR RAFAEL Administration Ondansetron HCl 4 mg 02/13/19 18:03 Zofran IV Q8H PRN Nausea And Vomiting Oxycodone/Acetaminophen 1 tab 02/13/19 18:03 02/20/19 22:36 Percocet 5/325 PO 1 tab Q6H PRN Administration Pain, Moderate (4-6) Sodium Chloride 10 ml 02/13/19 22:00 02/20/19 22:37 Sodium Chloride Flush Syringe 10 Ml IV 10 ml BID RAFAEL Administration Sodium Chloride 10 ml 02/13/19 18:03 Sodium Chloride Flush Syringe 10 Ml IV PRN PRN LINE FLUSH Nutrition/Malnutrition Assess - Dietary Evaluation Nutrition/Malnutrition Findings: Nutrition Notes Start: 02/19/19 14:33 Freq: Status: Active Protocol: Document 02/19/19 14:34 RM (Rec: 02/19/19 14:34 RM [id number]) Nutrition Notes Need for Assessment generated from: LOS Initial or Follow up Brief Note Height 5 ft 3 in Weight 110.03 kg [place] Body Weight (kg) 52.27 BMI 43.0 Subjective/Other Information Screened for LOS. PO intake 85% X 2 days. Nutrition Intervention Revisit per MD consult or patient Sign Off request:
[2019-02-21] MEDS: PERCOCET 5/325 PO PRN (10:23)
[2019-02-21 12:31] LABS: BUN/Creatinine Ratio 16; Blood Urea Nitrogen 16 mg/dL (7-17); Calcium 7.4 mg/dL (8.4-10.2); Hemolysis Index 26
[2019-02-21] MEDS: CEPACOL X STRENGTH MM PRN (13:04)
[2019-02-21] MEDS: DILAUDID IV PRN (20:36)
[2019-02-22] MEDS: DILAUDID IV PRN (03:00)
[2019-02-22] MEDS ORDERED: PROVENTIL IH ONE (04:14)
[2019-02-22] MEDS ORDERED: ATIVAN IV ONE (04:54)
[2019-02-22] MEDS ORDERED: LASIX IV ONE (04:57)
--- NOTE | 2019-02-22 05:32 | XRay Report ---
PROCEDURE: XR CHEST 1V AP HISTORY: Resp distress COMPARISONS: X-ray dated 02/13/2019 FINDINGS: Normal cardiomediastinal silhouette. New asymmetric infiltrates in the right perihilar region and right upper lobe. Left costophrenic angle is blunted from atelectasis and/or small effusion. Unremarkable osseous structures. Impression: 1. New asymmetric infiltrates in the right perihilar region and right upper lobe, suspect vascular co ngestion and/or pneumonia. 2. Left lower lobe atelectasis and/or small pleural effusion. This document is electronically signed by Beverly Leonard MD., February 22 2019 05:31:07 AM ET
[2019-02-22] MEDS: ZOSYN/NS 3.375GM/50ML 3.375 GM/50 ML BAG IV SCH ×3 (06:00→21:14)
--- NOTE | 2019-02-22 07:05 | Event Note ---
Date: 02/22/19 PATIENT NOTED TO BE SHORT OF BREATH, THERE WAS NO CHEST PAIN OR FEVER. O/E PATIENT WAS DIAPHORETIC AND HYPERVENTILATING CHEST EXAMINATION SHOWED REDUCED AIR ENTRY MORE ON THE RIGHT THAN LEFT WITH SCATTERED CRACLES. HEART SOUND WERE NORMAL. PLAN: 1. STAT ABG SHOWED PH OF 7.45,PCO2 PENDING ,PO2 OF 95,SAT OF 98% WITH FIO2OF 28 %. 2. 12 LEAD EKG SHOWED NO ACUTE ST,T CHANGES. 3. CXR SHOWED PULMONARY CONGESTION WITH RIGHT SIDED INFILTRATE CONSISTENT WITH PNEUMONIA. PATIENT WAS STARTED. 4. I.V ZOSYN STARTED 5. BREATHING TREATMENT WITH ALBUTEROL GIVEN 6. START D-DIMER ORDERED. 7. PATIENT PLACED ON BIPAP PENDING LAB RESULTS
[2019-02-22] MEDS: HumaLOG SUB-Q SCH ×7 (07:30→23:01)
[2019-02-22 09:01] LABS: BUN/Creatinine Ratio 17; Blood Urea Nitrogen 17 mg/dL (7-17); Calcium 7.7 mg/dL (8.4-10.2); Hemolysis Index 0
[2019-02-22] MEDS: PLAVIX PO SCH (10:14)
[2019-02-22] MEDS: SODIUM CHLORIDE FLUSH SYRINGE 10 ML IV SCH ×2 (10:14→21:15)
[2019-02-22] MEDS: HALFPRIN EC PO SCH (10:14)
[2019-02-22] MEDS: PROCARDIA XL PO SCH ×2 (10:14→21:15)
[2019-02-22] MEDS: LANTUS SUB-Q SCH ×2 (10:17→23:02)
--- NOTE | 2019-02-22 12:27 | Progress Note ---
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 CT head; no acute findings CXR no acute findings Labs; UA > 182 WBC Micro; urine and blood growing ecoli sens to current abx Diagnosis sepsis, ecoli Bactermia and Ecoli UTI anemia, likely due to chronic disease HHNK, Type 2 DM, A1c 9 Hyponatremia, likely pseudohyponatremia of hyperglycemia Hyperkalemia GERALDINE- likely ATN Hypomagesemia- resolved PAD hx of RLE ischemia, sp thrombolysis, revascularization and fascitomy dry gangrene, R second toe Rhabdomylsis, non traumatic acute metabolic enncephalopathy Plan has completed abx, ID consult appreciated optimize insulins and BP meds, IVF, renal US, nephrology consult appreciated, Cr improving Mg was repleted, Kayexalate given on 02/17, 1 unit prbc given on 02/18 vascular consult appreciated, sp debridement of R leg wound on 02/20, necrotic tissue removed, need to fup as outpatient for amputation of R second toe c/o sob, IVF dc, and got one dose of lasix, VQ scan and LE dopplers neg for VTE DVT ppx- chemical Dispo; to SNF History Interval history: Review of systems Constitutional: No fevers, no malaise, no joint pains CVS: No chest pain, no orthopnea, no dyspnea on exertion, no pedal edema GI: No abdominal pain, no diarrhea, no vomiting, no constipation Respiratory:c/o shortness of breath, no wheezing, no coughing Hospitalist Physical - Physical exam Narrative exam: General.: Appears well, no distress, nontoxic HEENT: Moist mucous membranes, extraocular muscles intact, no lymphadenopathy Neck: supple Cardiac: S1-S2 heard Lungs: clear to auscultation bilaterally Abdomen: soft , nontender, nondistended, bowel sounds positive Extremities: ; R second toe dry gangrene R leg open wound- large, from fasciotomy Skin: no rash or lesions Neurologic: no gross focal deficits Psych: calm, and cooperative - Constitutional Vitals: Temp Pulse Resp BP Pulse Ox 98.7 F 108 H 42 H 120/66 93 02/21/19 23:14 02/22/19 10:13 02/22/19 10:13 02/21/19 23:14 02/22/19 10:13 General appearance: Present: no acute distress Results - Labs CBC & Chem 7: 02/19/19 13:46 02/23/19 06:12 Labs: Laboratory Last Values WBC 12.0 K/mm3 (4.5-11.0) H 02/19/19 13:46 RBC 2.63 M/mm3 (3.65-5.03) L 02/19/19 13:46 Hgb 7.5 gm/dl (10.1-14.3) L 02/19/19 13:46 Hct 23.3 % (30.3-42.9) L 02/19/19 13:46 MCV 89 fl (79-97) 02/19/19 13:46 MCH 29 pg (28-32) 02/19/19 13:46 MCHC 32 % (30-34) 02/19/19 13:46 RDW 16.6 % (13.2-15.2) H 02/19/19 13:46 Plt Count 431 K/mm3 (140-440) 02/19/19 13:46 Lymph % (Auto) Tick Eradicator 02/17/19 10:41 [place] % (Auto) Tick Eradicator 02/17/19 10:41 Eos % (Auto) Tick Eradicator 02/17/19 10:41 Baso % (Auto) Tick Eradicator 02/17/19 10:41 Lymph # Tick Eradicator 02/17/19 10:41 [place] # Tick Eradicator 02/17/19 10:41 Eos # Tick Eradicator 02/17/19 10:41 Baso # Tick Eradicator 02/17/19 10:41 Add Manual Diff Complete 02/19/19 13:46 Total Counted 100 02/19/19 13:46 Seg Neutrophils % Tick Eradicator 02/17/19 10:41 Seg Neuts % (Manual) 74.0 % (40.0-70.0) H 02/19/19 13:46 Band Neutrophils % 1.0 % 02/19/19 13:46 Lymphocytes % (Manual) 16.0 % (13.4-35.0) 02/19/19 13:46 Reactive Lymphs % (Man) 0 % 02/19/19 13:46 Monocytes % (Manual) 6.0 % (0.0-7.3) 02/19/19 13:46 Eosinophils % (Manual) 1.0 % (0.0-4.3) 02/19/19 13:46 Basophils % (Manual) 0 % (0.0-1.8) 02/19/19 13:46 Metamyelocytes % 0 % 02/19/19 13:46 Myelocytes % 2.0 % 02/19/19 13:46 Promyelocytes % 0 % 02/19/19 13:46 Blast Cells % 0 % 02/19/19 13:46 Nucleated RBC % Not Reportable 02/19/19 13:46 Seg Neutrophils # Tick Eradicator 02/17/19 10:41 Seg Neutrophils # Man 8.9 K/mm3 (1.8-7.7) H 02/19/19 13:46 Band Neutrophils # 0.1 K/mm3 02/19/19 13:46 Lymphocytes # (Manual) 1.9 K/mm3 (1.2-5.4) 02/19/19 13:46 Abs React Lymphs (Man) 0.0 K/mm3 02/19/19 13:46 Monocytes # (Manual) 0.7 K/mm3 (0.0-0.8) 02/19/19 13:46 Eosinophils # (Manual) 0.1 K/mm3 (0.0-0.4) 02/19/19 13:46 Basophils # (Manual) 0.0 K/mm3 (0.0-0.1) 02/19/19 13:46 Metamyelocytes # 0.0 K/mm3 02/19/19 13:46 Myelocytes # 0.2 K/mm3 02/19/19 13:46 Promyelocytes # 0.0 K/mm3 02/19/19 13:46 Blast Cells # 0.0 K/mm3 02/19/19 13:46 WBC Morphology Not Reportable 02/19/19 13:46 Hypersegmented Neuts Not Reportable 02/19/19 13:46 Hyposegmented Neuts Not Reportable 02/19/19 13:46 Hypogranular Neuts Not Reportable 02/19/19 13:46 Smudge Cells Not Reportable 02/19/19 13:46 Toxic Granulation Not Reportable 02/19/19 13:46 Toxic Vacuolation Not Reportable 02/19/19 13:46 Dohle Bodies Not Reportable 02/19/19 13:46 Pelger-Huet Anomaly Not Reportable 02/19/19 13:46 Cisco Rods Not Reportable 02/19/19 13:46 Platelet Estimate Consistent w auto 02/19/19 13:46 Clumped Platelets Few 02/19/19 13:46 Plt Clumps, EDTA Not Reportable 02/19/19 13:46 Large Platelets Not Reportable 02/19/19 13:46 Giant Platelets Not Reportable 02/19/19 13:46 Platelet Satelliting Not Reportable 02/19/19 13:46 Plt Morphology Comment Not Reportable 02/19/19 13:46 RBC Morphology Normal 02/19/19 13:46 Dimorphic RBCs Not Reportable 02/19/19 13:46 Polychromasia Not Reportable 02/19/19 13:46 Hypochromasia Not Reportable 02/19/19 13:46 Poikilocytosis Not Reportable 02/19/19 13:46 Anisocytosis Not Reportable 02/19/19 13:46 Microcytosis Not Reportable 02/19/19 13:46 Macrocytosis Not Reportable 02/19/19 13:46 Spherocytes Not Reportable 02/19/19 13:46 Pappenheimer Bodies Not Reportable 02/19/19 13:46 Sickle Cells Not Reportable 02/19/19 13:46 Target Cells Not Reportable 02/19/19 13:46 Tear Drop Cells Not Reportable 02/19/19 13:46 Ovalocytes Not Reportable 02/19/19 13:46 Helmet Cells Not Reportable 02/19/19 13:46 [place] Bodies Not Reportable 02/19/19 13:46 [place] Rings Not Reportable 02/19/19 13:46 Vipul Cells Not Reportable 02/19/19 13:46 Bite Cells Not Reportable 02/19/19 13:46 Crenated Cell Not Reportable 02/19/19 13:46 Elliptocytes Not Reportable 02/19/19 13:46 Acanthocytes (Spur) Not Reportable 02/19/19 13:46 Rouleaux Not Reportable 02/19/19 13:46 Hemoglobin C Crystals Not Reportable 02/19/19 13:46 Schistocytes Not Reportable 02/19/19 13:46 Malaria parasites Not Reportable 02/19/19 13:46 [place]o Bodies Not Reportable 02/19/19 13:46 Hem Pathologist Commnt No 02/19/19 13:46 PT 15.6 Sec. (12.2-14.9) H 02/13/19 14:15 INR 1.17 (0.87-1.13) H 02/13/19 14:15 APTT 26.6 Sec. (24.2-36.6) 02/13/19 14:15 D-Dimer 1481.17 ng/mlDDU (0-234) H 02/22/19 08:26 POC ABG pH 7.459 (7.35-7.45) H 02/22/19 04:49 POC ABG pO2 95 (80-105) 02/22/19 04:49 POC ABG HCO3 13.4 (22-26 mml/L) 02/22/19 04:49 POC ABG Total CO2 14 (23-27mmol/L) 02/22/19 04:49 POC ABG O2 Sat 98 02/22/19 04:49 POC ABG Base Excess -10 ((-2) - (+3)mmol/L) 02/22/19 04:49 VBG pH 7.379 (7.320-7.420) 02/13/19 14:08 FiO2 28 % 02/22/19 04:49 Sodium 133 mmol/L (137-145) L 02/22/19 08:26 Potassium 5.3 mmol/L (3.6-5.0) H 02/22/19 08:26 Chloride 102.0 mmol/L (98-107) 02/22/19 08:26 Carbon Dioxide 19 mmol/L (22-30) L 02/22/19 08:26 Anion Gap 17 mmol/L 02/22/19 08:26 BUN 17 mg/dL (7-17) 02/22/19 08:26 Creatinine 1.0 mg/dL (0.7-1.2) 02/22/19 08:26 Estimated GFR > 60 ml/min 02/22/19 08:26 BUN/Creatinine Ratio 17 % 02/22/19 08:26 Glucose 216 mg/dL (65-100) H 02/22/19 08:26 POC Glucose 238 (70-105) H 02/22/19 11:59 Hemoglobin A1c 9.2 % (4-6) H 02/13/19 18:15 Ketones Quantitative Negative (Negative) 02/13/19 14:08 Calcium 7.7 mg/dL (8.4-10.2) L 02/22/19 08:26 Phosphorus 3.10 mg/dL (2.5-4.5) 02/15/19 05:32 Magnesium 2.80 mg/dL (1.7-2.3) H 02/15/19 05:32 Total Bilirubin 1.60 mg/dL (0.1-1.2) H 02/14/19 08:15 Direct Bilirubin 1.1 mg/dL (0-0.2) H 02/13/19 14:08 Indirect Bilirubin 0.4 mg/dL 02/13/19 14:08 AST 47 units/L (5-40) H 02/14/19 08:15 ALT 33 units/L (7-56) 02/14/19 08:15 Alkaline Phosphatase 218 units/L (35-129) H 02/14/19 08:15 Ammonia 40.0 umol/L (25-60) 02/13/19 14:15 Total Creatine Kinase 120 units/L (30-135) 02/21/19 11:38 CK-MB (CK-2) 3.6 ng/mL (0.0-4.0) 02/13/19 14:20 CK-MB (CK-2) Rel Index 0.2 (0-4) 02/13/19 14:20 Troponin T 0.072 ng/mL (0.00-0.029) H 02/13/19 14:20 NT-Pro-B Natriuret Pep 6167 pg/mL (0-900) H 02/13/19 14:15 Total Protein 6.2 g/dL (6.3-8.2) L 02/14/19 08:15 Albumin 2.2 g/dL (3.9-5) L 02/14/19 08:15 Albumin/Globulin Ratio 0.6 % 02/14/19 08:15 Triglycerides 329 mg/dL (2-149) H 02/13/19 14:20 Cholesterol 159 mg/dL (50-199) 02/13/19 14:20 LDL Cholesterol Direct 36 mg/dL (50-130) L 02/13/19 14:20 HDL Cholesterol 17 mg/dL (40-59) L 02/13/19 14:20 Cholesterol/HDL Ratio 9.35 % 02/13/19 14:20 Urine Color Steffi (Yellow) 02/14/19 09:07 Urine Turbidity Cloudy (Clear) 02/14/19 09:07 Urine pH 5.0 (5.0-7.0) 02/14/19 09:07 Ur Specific [place] 1.013 (1.003-1.030) 02/14/19 09:07 Urine Protein 100 mg/dl mg/dL (Negative) 02/14/19 09:07 Urine Glucose (UA) 50 mg/dL (Negative) 02/14/19 09:07 Urine Ketones Neg mg/dL (Negative) 02/14/19 09:07 Urine Blood Lg (Negative) 02/14/19 09:07 Urine Nitrite Neg (Negative) 02/14/19 09:07 Urine Bilirubin Neg (Negative) 02/14/19 09:07 Urine Urobilinogen 2.0 mg/dL (<2.0) 02/14/19 09:07 Ur Leukocyte Esterase Lg (Negative) 02/14/19 09:07 Urine WBC (Auto) > 182.0 /HPF (0.0-6.0) H 02/14/19 09:07 Urine RBC (Auto) 9.0 /HPF (0.0-6.0) 02/14/19 09:07 U Epithel Cells (Auto) 1.0 /HPF (0-13.0) 02/14/19 09:07 Urine Bacteria (Auto) 4+ /HPF (Negative) 02/14/19 09:07 Urine WBC Clumps 3+ /HPF 02/14/19 09:07 Ur Transition Epith Cell 1 /HPF 02/14/19 09:07 Urine Mucus Few /HPF 02/14/19 09:07 Vancomycin Trough 14.5 ug/mL (5.0-20.0) 02/15/19 05:32 Urine Opiates Screen Presumptive negative 02/14/19 09:07 Urine Methadone Screen Presumptive negative 02/14/19 09:07 Ur Barbiturates Screen Presumptive negative 02/14/19 09:07 Ur Phencyclidine Scrn Presumptive negative 02/14/19 09:07 Ur Amphetamines Screen Presumptive negative 02/14/19 09:07 U Benzodiazepines Scrn Presumptive negative 02/14/19 09:07 Urine Cocaine Screen Presumptive negative 02/14/19 09:07 U Marijuana (THC) Screen Presumptive negative 02/14/19 09:07 Drugs of Abuse Note Disclamer 02/14/19 09:07 Blood Type B POSITIVE 02/18/19 11:35 Antibody Screen Negative 02/18/19 11:35 Crossmatch See Detail 02/18/19 11:35 Active Medications - Current Medications Current Medications: Generic Name Dose Route Start Last Admin Trade Name Freq PRN Reason Stop Dose Admin Acetaminophen 650 mg 02/13/19 18:03 Tylenol PO Q4H PRN Pain MILD(1-3)/Fever >100.5/MARTÍNEZ Albuterol 2.5 mg 02/22/19 04:53 Proventil IH Q6HRT PRN Shortness Of Breath Aspirin 81 mg 02/14/19 10:00 02/22/19 10:14 Halfprin Ec PO 81 mg DAILY RAFAEL Administration Benzocaine/Menthol 1 each 02/21/19 11:41 02/21/19 13:04 Cepacol X Strength MM 1 each Q2H PRN Administration Sore Throat Clopidogrel Bisulfate 75 mg 02/13/19 19:00 02/22/19 10:14 Plavix PO 75 mg QDAY RAFAEL Administration Dextrose 50 ml 02/14/19 14:03 D50w (25gm) Syringe IV PRN PRN Hypoglycemia Furosemide 40 mg 02/22/19 13:00 Lasix IV 02/23/19 13:01 Q12H RAFAEL Hydralazine HCl 10 mg 02/16/19 16:04 Apresoline IV Q4HR PRN BP >160/100 Sodium Chloride 1,000 mls @ 100 mls/hr 02/13/19 19:00 02/21/19 17:37 Nacl 0.9% 1000 Ml IV 100 mls/hr DIRECT RAFAEL Administration Piperacillin Sod/Tazobactam Sod 3.375 gm in 50 mls @ 100 mls/hr 02/22/19 06:00 02/22/19 06:00 Zosyn/Ns 3.375gm/50ml IV 03/02/19 05:59 Not Given Q8HR [facility] Protocol Insulin Glargine 25 units 02/19/19 10:00 02/22/19 10:17 Lantus SUB-Q 25 units BID RAFAEL Administration Insulin Human Lispro 0 unit 02/14/19 16:30 02/22/19 07:30 Humalog SUB-Q 6 unit ACHS RAFAEL Administration Protocol Insulin Human Lispro 5 unit 02/20/19 08:44 02/22/19 07:30 Humalog SUB-Q 5 unit AC RAFAEL Administration Nifedipine 60 mg 02/16/19 22:00 02/22/19 10:14 Procardia Xl PO 60 mg Q12HR RAFAEL Administration Ondansetron HCl 4 mg 02/13/19 18:03 Zofran IV Q8H PRN Nausea And Vomiting Oxycodone/Acetaminophen 1 tab 02/13/19 18:03 02/21/19 10:23 Percocet 5/325 PO 1 tab Q6H PRN Administration Pain, Moderate (4-6) Phenol 1 spray 02/21/19 11:41 Chloraseptic MM PRN PRN Sore Throat Sodium Chloride 10 ml 02/13/19 22:00 02/22/19 10:14 Sodium Chloride Flush Syringe 10 Ml IV 10 ml BID RAFAEL Administration Sodium Chloride 10 ml 02/13/19 18:03 Sodium Chloride Flush Syringe 10 Ml IV PRN PRN LINE FLUSH Nutrition/Malnutrition Assess - Dietary Evaluation Nutrition/Malnutrition Findings: Nutrition Notes Start: 02/19/19 14:33 Freq: Status: Active Protocol: Document 02/19/19 14:34 RM (Rec: 02/19/19 14:34 RM [id number]) Nutrition Notes Need for Assessment generated from: LOS Initial or Follow up Brief Note Height 5 ft 3 in Weight 110.03 kg [place] Body Weight (kg) 52.27 BMI 43.0 Subjective/Other Information Screened for LOS. PO intake 85% X 2 days. Nutrition Intervention Revisit per MD consult or patient Sign Off request:
[2019-02-22] MEDS: PERCOCET 5/325 PO PRN ×2 (12:31→23:02)
[2019-02-22] MEDS: LASIX IV SCH (13:00)
--- NOTE | 2019-02-22 15:12 | Vascular Lab Report ---
PROCEDURE: VL VENOUS DUPLEX LE BILAT HISTORY: LE edema FINDINGS: Real-time ultrasound of the right leg and left leg was performed using grayscale and color Doppler images. These images demonstrate no evidence of deep venous thrombosis in the right or left common femoral ve in, superficial femoral vein, popliteal vein or posterior tibial vein. IMPRESSION: No DVT in either leg This document is electronically signed by Lance Aguila MD., February 22 2019 03:09:46 PM ET
--- NOTE | 2019-02-22 15:34 | Nuclear Medicine Report ---
PROCEDURE: NM LUNG SCAN PERF/VENT TECHNIQUE: Perfusion imaging of the lungs was performed in multiple planar projections. Ventilation images were obtained in the posterior projection during inhalation, equilibrium, and washout phases. Correlation with a chest x-ray was not performed. DOSE: 23.6 millicuries Xe-133 gas; 5.48 millicuries 99m Tc MAA given IV. Injection site: RIGHT antecu bital fossa. HISTORY: sob COMPARISONS: None . FINDINGS: The tracer distribution on perfusion imaging is homogeneous throughout. No unmatched segmental or sub segmental perfusion defects are identified to suggest the presence of pulmonary embolism. The ventilation study is also homogeneous and within normal limits. No evidence for gas trapping is n oted. IMPRESSION: Normal [place] V/Q scan This document is electronically signed by Allyssa Chavez MD., February 22 2019 03:32:27 PM ET
[2019-02-22] MEDS: NACL 0.9% 1000 ML 1,000 ML IV SCH (23:02)
[2019-02-23] MEDS: LASIX IV SCH ×2 (01:15→14:07)
[2019-02-23] MEDS: ZOSYN/NS 3.375GM/50ML 3.375 GM/50 ML BAG IV SCH ×4 (05:06→21:56)
[2019-02-23 07:46] LABS: BUN/Creatinine Ratio 16; Blood Urea Nitrogen 18 mg/dL (7-17); Calcium 8.3 mg/dL (8.4-10.2); Hemolysis Index 0
[2019-02-23] MEDS: HumaLOG SUB-Q SCH ×4 (09:08→12:46)
[2019-02-23] MEDS: LANTUS SUB-Q SCH (09:09)
[2019-02-23] MEDS: PROCARDIA XL PO SCH ×2 (09:11→21:56)
[2019-02-23] MEDS: PLAVIX PO SCH (09:11)
[2019-02-23] MEDS: HALFPRIN EC PO SCH (09:11)
[2019-02-23] MEDS: SODIUM CHLORIDE FLUSH SYRINGE 10 ML IV SCH ×2 (09:11→21:57)
[2019-02-23] MEDS: CEPACOL X STRENGTH MM PRN (09:12)
--- NOTE | 2019-02-23 16:06 | Progress Note ---
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 CT head; no acute findings CXR no acute findings Labs; UA > 182 WBC Micro; urine and blood growing ecoli sens to current abx Diagnosis sepsis, ecoli Bactermia and Ecoli UTI PNA? Acute hypoxic respiratory failure anemia, likely due to chronic disease HHNK, Type 2 DM, A1c 9 Hyponatremia, likely pseudohyponatremia of hyperglycemia Hyperkalemia GERALDINE- likely ATN Hypomagesemia- resolved PAD hx of RLE ischemia, sp thrombolysis, revascularization and fascitomy dry gangrene, R second toe Rhabdomylsis, non traumatic acute metabolic enncephalopathy Plan has completed abx, ID consult appreciated -The patient suffered shortness of breath yesterday, chest x-ray shows in filtrate versus pulmonary edema. She has been started on antibiotics, continue empiric antibiotics, continue supplemental oxygen. The patient has normal ejection fraction. She's been on IV fluids for quite a long time, IV fluids were discontinued, she received diuretics. optimize insulins and BP meds, IVF, renal US, nephrology consult appreciated, Cr improving Mg was repleted, Kayexalate given on 02/17, 1 unit prbc given on 02/18 vascular consult appreciated, sp debridement of R leg wound on 02/20, necrotic tissue removed, need to fup as outpatient for amputation of R second toe c/o sob, IVF dc, and got one dose of lasix, VQ scan and LE dopplers neg for VTE DVT ppx- chemical Dispo; to SNF History Interval history: Review of systems Constitutional: No fevers, no malaise, no joint pains CVS: No chest pain, no orthopnea, no dyspnea on exertion, no pedal edema GI: No abdominal pain, no diarrhea, no vomiting, no constipation Respiratory:c/o shortness of breath, no wheezing, no coughing Hospitalist Physical - Physical exam Narrative exam: General.: Appears well, no distress, nontoxic HEENT: Moist mucous membranes, extraocular muscles intact, no lymphadenopathy Neck: supple Cardiac: S1-S2 heard Lungs: rales in bases Abdomen: soft , nontender, nondistended, bowel sounds positive Extremities: ; R second toe dry gangrene R leg open wound- large, from fasciotomy Skin: no rash or lesions Neurologic: no gross focal deficits Psych: calm, and cooperative - Constitutional Vitals: Temp Pulse Resp BP Pulse Ox 98.4 F 102 H 16 142/61 98 02/23/19 11:53 02/23/19 11:53 02/23/19 11:53 02/23/19 11:53 02/23/19 11:53 General appearance: Present: no acute distress Results - Labs CBC & Chem 7: 02/19/19 13:46 02/23/19 06:12 Labs: Laboratory Last Values WBC 12.0 K/mm3 (4.5-11.0) H 02/19/19 13:46 RBC 2.63 M/mm3 (3.65-5.03) L 02/19/19 13:46 Hgb 7.5 gm/dl (10.1-14.3) L 02/19/19 13:46 Hct 23.3 % (30.3-42.9) L 02/19/19 13:46 MCV 89 fl (79-97) 02/19/19 13:46 MCH 29 pg (28-32) 02/19/19 13:46 MCHC 32 % (30-34) 02/19/19 13:46 RDW 16.6 % (13.2-15.2) H 02/19/19 13:46 Plt Count 431 K/mm3 (140-440) 02/19/19 13:46 Lymph % (Auto) Advertising Supervisor 02/17/19 10:41 Logan % (Auto) Advertising Supervisor 02/17/19 10:41 Eos % (Auto) Advertising Supervisor 02/17/19 10:41 Baso % (Auto) Advertising Supervisor 02/17/19 10:41 Lymph # Advertising Supervisor 02/17/19 10:41 Logan # Advertising Supervisor 02/17/19 10:41 Eos # Advertising Supervisor 02/17/19 10:41 Baso # Advertising Supervisor 02/17/19 10:41 Add Manual Diff Complete 02/19/19 13:46 Total Counted 100 02/19/19 13:46 Seg Neutrophils % Advertising Supervisor 02/17/19 10:41 Seg Neuts % (Manual) 74.0 % (40.0-70.0) H 02/19/19 13:46 Band Neutrophils % 1.0 % 02/19/19 13:46 Lymphocytes % (Manual) 16.0 % (13.4-35.0) 02/19/19 13:46 Reactive Lymphs % (Man) 0 % 02/19/19 13:46 Monocytes % (Manual) 6.0 % (0.0-7.3) 02/19/19 13:46 Eosinophils % (Manual) 1.0 % (0.0-4.3) 02/19/19 13:46 Basophils % (Manual) 0 % (0.0-1.8) 02/19/19 13:46 Metamyelocytes % 0 % 02/19/19 13:46 Myelocytes % 2.0 % 02/19/19 13:46 Promyelocytes % 0 % 02/19/19 13:46 Blast Cells % 0 % 02/19/19 13:46 Nucleated RBC % Not Reportable 02/19/19 13:46 Seg Neutrophils # Advertising Supervisor 02/17/19 10:41 Seg Neutrophils # Man 8.9 K/mm3 (1.8-7.7) H 02/19/19 13:46 Band Neutrophils # 0.1 K/mm3 02/19/19 13:46 Lymphocytes # (Manual) 1.9 K/mm3 (1.2-5.4) 02/19/19 13:46 Abs React Lymphs (Man) 0.0 K/mm3 02/19/19 13:46 Monocytes # (Manual) 0.7 K/mm3 (0.0-0.8) 02/19/19 13:46 Eosinophils # (Manual) 0.1 K/mm3 (0.0-0.4) 02/19/19 13:46 Basophils # (Manual) 0.0 K/mm3 (0.0-0.1) 02/19/19 13:46 Metamyelocytes # 0.0 K/mm3 02/19/19 13:46 Myelocytes # 0.2 K/mm3 02/19/19 13:46 Promyelocytes # 0.0 K/mm3 02/19/19 13:46 Blast Cells # 0.0 K/mm3 02/19/19 13:46 WBC Morphology Not Reportable 02/19/19 13:46 Hypersegmented Neuts Not Reportable 02/19/19 13:46 Hyposegmented Neuts Not Reportable 02/19/19 13:46 Hypogranular Neuts Not Reportable 02/19/19 13:46 Smudge Cells Not Reportable 02/19/19 13:46 Toxic Granulation Not Reportable 02/19/19 13:46 Toxic Vacuolation Not Reportable 02/19/19 13:46 Dohle Bodies Not Reportable 02/19/19 13:46 Pelger-Huet Anomaly Not Reportable 02/19/19 13:46 Cisco Rods Not Reportable 02/19/19 13:46 Platelet Estimate Consistent w auto 02/19/19 13:46 Clumped Platelets Few 02/19/19 13:46 Plt Clumps, EDTA Not Reportable 02/19/19 13:46 Large Platelets Not Reportable 02/19/19 13:46 Giant Platelets Not Reportable 02/19/19 13:46 Platelet Satelliting Not Reportable 02/19/19 13:46 Plt Morphology Comment Not Reportable 02/19/19 13:46 RBC Morphology Normal 02/19/19 13:46 Dimorphic RBCs Not Reportable 02/19/19 13:46 Polychromasia Not Reportable 02/19/19 13:46 Hypochromasia Not Reportable 02/19/19 13:46 Poikilocytosis Not Reportable 02/19/19 13:46 Anisocytosis Not Reportable 02/19/19 13:46 Microcytosis Not Reportable 02/19/19 13:46 Macrocytosis Not Reportable 02/19/19 13:46 Spherocytes Not Reportable 02/19/19 13:46 Pappenheimer Bodies Not Reportable 02/19/19 13:46 Sickle Cells Not Reportable 02/19/19 13:46 Target Cells Not Reportable 02/19/19 13:46 Tear Drop Cells Not Reportable 02/19/19 13:46 Ovalocytes Not Reportable 02/19/19 13:46 Helmet Cells Not Reportable 02/19/19 13:46 [place] Bodies Not Reportable 02/19/19 13:46 [place] Rings Not Reportable 02/19/19 13:46 Vipul Cells Not Reportable 02/19/19 13:46 Bite Cells Not Reportable 02/19/19 13:46 Crenated Cell Not Reportable 02/19/19 13:46 Elliptocytes Not Reportable 02/19/19 13:46 Acanthocytes (Spur) Not Reportable 02/19/19 13:46 Rouleaux Not Reportable 02/19/19 13:46 Hemoglobin C Crystals Not Reportable 02/19/19 13:46 Schistocytes Not Reportable 02/19/19 13:46 Malaria parasites Not Reportable 02/19/19 13:46 [place]o Bodies Not Reportable 02/19/19 13:46 Hem Pathologist Commnt No 02/19/19 13:46 PT 15.6 Sec. (12.2-14.9) H 02/13/19 14:15 INR 1.17 (0.87-1.13) H 02/13/19 14:15 APTT 26.6 Sec. (24.2-36.6) 02/13/19 14:15 D-Dimer 1481.17 ng/mlDDU (0-234) H 02/22/19 08:26 POC ABG pH 7.459 (7.35-7.45) H 02/22/19 04:49 POC ABG pO2 95 (80-105) 02/22/19 04:49 POC ABG HCO3 13.4 (22-26 mml/L) 02/22/19 04:49 POC ABG Total CO2 14 (23-27mmol/L) 02/22/19 04:49 POC ABG O2 Sat 98 02/22/19 04:49 POC ABG Base Excess -10 ((-2) - (+3)mmol/L) 02/22/19 04:49 VBG pH 7.379 (7.320-7.420) 02/13/19 14:08 FiO2 28 % 02/22/19 04:49 Sodium 137 mmol/L (137-145) 02/23/19 06:12 Potassium 4.4 mmol/L (3.6-5.0) 02/23/19 06:12 Chloride 102.2 mmol/L (98-107) 02/23/19 06:12 Carbon Dioxide 19 mmol/L (22-30) L 02/23/19 06:12 Anion Gap 20 mmol/L 02/23/19 06:12 BUN 18 mg/dL (7-17) H 02/23/19 06:12 Creatinine 1.1 mg/dL (0.7-1.2) 02/23/19 06:12 Estimated GFR > 60 ml/min 02/23/19 06:12 BUN/Creatinine Ratio 16 % 02/23/19 06:12 Glucose 52 mg/dL (65-100) L 02/23/19 06:12 POC Glucose 96 (70-105) 02/23/19 11:33 Hemoglobin A1c 9.2 % (4-6) H 02/13/19 18:15 Ketones Quantitative Negative (Negative) 02/13/19 14:08 Calcium 8.3 mg/dL (8.4-10.2) L 02/23/19 06:12 Phosphorus 3.10 mg/dL (2.5-4.5) 02/15/19 05:32 Magnesium 2.80 mg/dL (1.7-2.3) H 02/15/19 05:32 Total Bilirubin 1.60 mg/dL (0.1-1.2) H 02/14/19 08:15 Direct Bilirubin 1.1 mg/dL (0-0.2) H 02/13/19 14:08 Indirect Bilirubin 0.4 mg/dL 02/13/19 14:08 AST 47 units/L (5-40) H 02/14/19 08:15 ALT 33 units/L (7-56) 02/14/19 08:15 Alkaline Phosphatase 218 units/L (35-129) H 02/14/19 08:15 Ammonia 40.0 umol/L (25-60) 02/13/19 14:15 Total Creatine Kinase 120 units/L (30-135) 02/21/19 11:38 CK-MB (CK-2) 3.6 ng/mL (0.0-4.0) 02/13/19 14:20 CK-MB (CK-2) Rel Index 0.2 (0-4) 02/13/19 14:20 Troponin T 0.072 ng/mL (0.00-0.029) H 02/13/19 14:20 NT-Pro-B Natriuret Pep 6167 pg/mL (0-900) H 02/13/19 14:15 Total Protein 6.2 g/dL (6.3-8.2) L 02/14/19 08:15 Albumin 2.2 g/dL (3.9-5) L 02/14/19 08:15 Albumin/Globulin Ratio 0.6 % 02/14/19 08:15 Triglycerides 329 mg/dL (2-149) H 02/13/19 14:20 Cholesterol 159 mg/dL (50-199) 02/13/19 14:20 LDL Cholesterol Direct 36 mg/dL (50-130) L 02/13/19 14:20 HDL Cholesterol 17 mg/dL (40-59) L 02/13/19 14:20 Cholesterol/HDL Ratio 9.35 % 02/13/19 14:20 Urine Color Steffi (Yellow) 02/14/19 09:07 Urine Turbidity Cloudy (Clear) 02/14/19 09:07 Urine pH 5.0 (5.0-7.0) 02/14/19 09:07 Ur Specific [place] 1.013 (1.003-1.030) 02/14/19 09:07 Urine Protein 100 mg/dl mg/dL (Negative) 02/14/19 09:07 Urine Glucose (UA) 50 mg/dL (Negative) 02/14/19 09:07 Urine Ketones Neg mg/dL (Negative) 02/14/19 09:07 Urine Blood Lg (Negative) 02/14/19 09:07 Urine Nitrite Neg (Negative) 02/14/19 09:07 Urine Bilirubin Neg (Negative) 02/14/19 09:07 Urine Urobilinogen 2.0 mg/dL (<2.0) 02/14/19 09:07 Ur Leukocyte Esterase Lg (Negative) 02/14/19 09:07 Urine WBC (Auto) > 182.0 /HPF (0.0-6.0) H 02/14/19 09:07 Urine RBC (Auto) 9.0 /HPF (0.0-6.0) 02/14/19 09:07 U Epithel Cells (Auto) 1.0 /HPF (0-13.0) 02/14/19 09:07 Urine Bacteria (Auto) 4+ /HPF (Negative) 02/14/19 09:07 Urine WBC Clumps 3+ /HPF 02/14/19 09:07 Ur Transition Epith Cell 1 /HPF 02/14/19 09:07 Urine Mucus Few /HPF 02/14/19 09:07 Vancomycin Trough 14.5 ug/mL (5.0-20.0) 02/15/19 05:32 Urine Opiates Screen Presumptive negative 02/14/19 09:07 Urine Methadone Screen Presumptive negative 02/14/19 09:07 Ur Barbiturates Screen Presumptive negative 02/14/19 09:07 Ur Phencyclidine Scrn Presumptive negative 02/14/19 09:07 Ur Amphetamines Screen Presumptive negative 02/14/19 09:07 U Benzodiazepines Scrn Presumptive negative 02/14/19 09:07 Urine Cocaine Screen Presumptive negative 02/14/19 09:07 U Marijuana (THC) Screen Presumptive negative 02/14/19 09:07 Drugs of Abuse Note Disclamer 02/14/19 09:07 Blood Type B POSITIVE 02/18/19 11:35 Antibody Screen Negative 02/18/19 11:35 Crossmatch See Detail 02/18/19 11:35 Active Medications - Current Medications Current Medications: Generic Name Dose Route Start Last Admin Trade Name Freq PRN Reason Stop Dose Admin Acetaminophen 650 mg 02/13/19 18:03 Tylenol PO Q4H PRN Pain MILD(1-3)/Fever >100.5/MARTÍNEZ Albuterol 2.5 mg 02/22/19 04:53 Proventil IH Q6HRT PRN Shortness Of Breath Aspirin 81 mg 02/14/19 10:00 02/23/19 09:11 Halfprin Ec PO 81 mg DAILY RAFAEL Administration Benzocaine/Menthol 1 each 02/21/19 11:41 02/23/19 09:12 Cepacol X Strength MM 1 each Q2H PRN Administration Sore Throat Clopidogrel Bisulfate 75 mg 02/13/19 19:00 02/23/19 09:11 Plavix PO 75 mg QDAY RAFAEL Administration Dextrose 50 ml 02/14/19 14:03 D50w (25gm) Syringe IV PRN PRN Hypoglycemia Hydralazine HCl 10 mg 02/16/19 16:04 Apresoline IV Q4HR PRN BP >160/100 Piperacillin Sod/Tazobactam Sod 3.375 gm in 50 mls @ 100 mls/hr 02/22/19 06:00 02/23/19 14:08 Zosyn/Ns 3.375gm/50ml IV 03/02/19 05:59 100 mls/hr Q8HR RAFAEL Administration Protocol Insulin Glargine 20 units 02/24/19 10:00 Lantus SUB-Q DAILY RAFAEL Insulin Human Lispro 0 unit 02/23/19 16:30 Humalog SUB-Q [facility] Protocol Nifedipine 60 mg 02/16/19 22:00 02/23/19 09:11 Procardia Xl PO 60 mg Q12HR RAFAEL Administration Ondansetron HCl 4 mg 02/13/19 18:03 Zofran IV Q8H PRN Nausea And Vomiting Oxycodone/Acetaminophen 1 tab 02/13/19 18:03 02/22/19 23:02 Percocet 5/325 PO 1 tab Q6H PRN Administration Pain, Moderate (4-6) Phenol 1 spray 02/21/19 11:41 Chloraseptic MM PRN PRN Sore Throat Sodium Chloride 10 ml 02/13/19 22:00 02/23/19 09:11 Sodium Chloride Flush Syringe 10 Ml IV 10 ml BID RAFAEL Administration Sodium Chloride 10 ml 02/13/19 18:03 Sodium Chloride Flush Syringe 10 Ml IV PRN PRN LINE FLUSH Nutrition/Malnutrition Assess - Dietary Evaluation Nutrition/Malnutrition Findings: Nutrition Notes Start: 02/19/19 14:33 Freq: Status: Active Protocol: Document 02/19/19 14:34 RM (Rec: 02/19/19 14:34 RM [id number]) Nutrition Notes Need for Assessment generated from: LOS Initial or Follow up Brief Note Height 5 ft 3 in Weight 110.03 kg [employer] Body Weight (kg) 52.27 BMI 43.0 Subjective/Other Information Screened for LOS. PO intake 85% X 2 days. Nutrition Intervention Revisit per MD consult or patient Sign Off request:
[2019-02-23] MEDS: PERCOCET 5/325 PO PRN (22:06)
[2019-02-24] MEDS: ZOSYN/NS 3.375GM/50ML 3.375 GM/50 ML BAG IV SCH ×2 (06:52→18:02)
[2019-02-24] MEDS: HumaLOG SUB-Q SCH ×4 (08:58→17:30)
[2019-02-24] MEDS ORDERED: LANTUS SUB-Q SCH (10:00)
[2019-02-24] MEDS: PLAVIX PO SCH (10:27)
[2019-02-24] MEDS: HALFPRIN EC PO SCH (10:27)
[2019-02-24] MEDS: PROCARDIA XL PO SCH ×2 (10:27→22:58)
[2019-02-24] MEDS: SODIUM CHLORIDE FLUSH SYRINGE 10 ML IV SCH ×2 (10:27→22:57)
--- NOTE | 2019-02-24 13:13 | XRay Report ---
ROUTINE CHEST, TWO VIEWS: HISTORY: Short of breath. Compared to the AP chest dated 02/22/19. The trachea, heart, mediastinal contour, lung [place] and bony thorax are unremarkable. IMPRESSION: No acute cardiopulmonary process is identified.
[2019-02-24] MEDS ORDERED: LASIX IV NR (16:00)
[2019-02-24] MEDS: PERCOCET 5/325 PO PRN (17:26)
--- NOTE | 2019-02-24 17:59 | Progress Note ---
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 CT head; no acute findings CXR no acute findings Labs; UA > 182 WBC Micro; urine and blood growing ecoli sens to current abx Diagnosis sepsis, ecoli Bactermia and Ecoli UTI PNA? Acute hypoxic respiratory failure anemia, likely due to chronic disease HHNK, Type 2 DM, A1c 9 Hyponatremia, likely pseudohyponatremia of hyperglycemia Hyperkalemia GERALDINE- likely ATN Hypomagesemia- resolved PAD hx of RLE ischemia, sp thrombolysis, revascularization and fascitomy dry gangrene, R second toe Rhabdomylsis, non traumatic acute metabolic encephalopathy Fluid overload Plan has completed abx, ID consult appreciated -Repeat chest x-ray show clearance of infiltrate after Lasix and discontinuation of IV fluids. Which essentially has ruled out pneumonia. vq scan and lower ex tremity Dopplers were negative . She has been started on antibiotics, continue empiric antibiotics, continue supplemental oxygen. The patient has normal ejection fraction. She's been on IV fluids for quite a long time, IV fluids were discontinued, she received diuretics. optimize insulins and BP meds, IVF, renal US, nephrology consult appreciated, Cr improving Mg was repleted, Kayexalate given on 02/17, 1 unit prbc given on 02/18 vascular consult appreciated, sp debridement of R leg wound on 02/20, necrotic tissue removed, need to fup as outpatient for amputation of R second toe DVT ppx- chemical Dispo; to SNF History Interval history: Review of systems Constitutional: No fevers, no malaise, no joint pains CVS: No chest pain, no orthopnea, no dyspnea on exertion, no pedal edema GI: No abdominal pain, no diarrhea, no vomiting, no constipation Respiratory:c/o shortness of breath, no wheezing, no coughing Hospitalist Physical - Physical exam Narrative exam: General.: Appears well, no distress, nontoxic HEENT: Moist mucous membranes, extraocular muscles intact, no lymphadenopathy Neck: supple Cardiac: S1-S2 heard Lungs: rales in bases Abdomen: soft , nontender, nondistended, bowel sounds positive Extremities: ; R second toe dry gangrene R leg open wound- large, from fasciotomy Skin: no rash or lesions Neurologic: no gross focal deficits Psych: calm, and cooperative - Constitutional Vitals: Temp Pulse Resp BP Pulse Ox 98.5 F 112 H 18 130/64 93 02/24/19 17:16 02/24/19 17:16 02/24/19 17:16 02/24/19 17:16 02/24/19 17:16 General appearance: Present: no acute distress Results - Labs CBC & Chem 7: 02/19/19 13:46 02/23/19 06:12 Labs: Laboratory Last Values WBC 12.0 K/mm3 (4.5-11.0) H 02/19/19 13:46 RBC 2.63 M/mm3 (3.65-5.03) L 02/19/19 13:46 Hgb 7.5 gm/dl (10.1-14.3) L 02/19/19 13:46 Hct 23.3 % (30.3-42.9) L 02/19/19 13:46 MCV 89 fl (79-97) 02/19/19 13:46 MCH 29 pg (28-32) 02/19/19 13:46 MCHC 32 % (30-34) 02/19/19 13:46 RDW 16.6 % (13.2-15.2) H 02/19/19 13:46 Plt Count 431 K/mm3 (140-440) 02/19/19 13:46 Lymph % (Auto) Damage Inside Adjuster 02/17/19 10:41 [place] % (Auto) Damage Inside Adjuster 02/17/19 10:41 Eos % (Auto) Damage Inside Adjuster 02/17/19 10:41 Baso % (Auto) Damage Inside Adjuster 02/17/19 10:41 Lymph # Damage Inside Adjuster 02/17/19 10:41 [place] # Damage Inside Adjuster 02/17/19 10:41 Eos # Damage Inside Adjuster 02/17/19 10:41 Baso # Damage Inside Adjuster 02/17/19 10:41 Add Manual Diff Complete 02/19/19 13:46 Total Counted 100 02/19/19 13:46 Seg Neutrophils % Damage Inside Adjuster 02/17/19 10:41 Seg Neuts % (Manual) 74.0 % (40.0-70.0) H 02/19/19 13:46 Band Neutrophils % 1.0 % 02/19/19 13:46 Lymphocytes % (Manual) 16.0 % (13.4-35.0) 02/19/19 13:46 Reactive Lymphs % (Man) 0 % 02/19/19 13:46 Monocytes % (Manual) 6.0 % (0.0-7.3) 02/19/19 13:46 Eosinophils % (Manual) 1.0 % (0.0-4.3) 02/19/19 13:46 Basophils % (Manual) 0 % (0.0-1.8) 02/19/19 13:46 Metamyelocytes % 0 % 02/19/19 13:46 Myelocytes % 2.0 % 02/19/19 13:46 Promyelocytes % 0 % 02/19/19 13:46 Blast Cells % 0 % 02/19/19 13:46 Nucleated RBC % Not Reportable 02/19/19 13:46 Seg Neutrophils # Damage Inside Adjuster 02/17/19 10:41 Seg Neutrophils # Man 8.9 K/mm3 (1.8-7.7) H 02/19/19 13:46 Band Neutrophils # 0.1 K/mm3 02/19/19 13:46 Lymphocytes # (Manual) 1.9 K/mm3 (1.2-5.4) 02/19/19 13:46 Abs React Lymphs (Man) 0.0 K/mm3 02/19/19 13:46 Monocytes # (Manual) 0.7 K/mm3 (0.0-0.8) 02/19/19 13:46 Eosinophils # (Manual) 0.1 K/mm3 (0.0-0.4) 02/19/19 13:46 Basophils # (Manual) 0.0 K/mm3 (0.0-0.1) 02/19/19 13:46 Metamyelocytes # 0.0 K/mm3 02/19/19 13:46 Myelocytes # 0.2 K/mm3 02/19/19 13:46 Promyelocytes # 0.0 K/mm3 02/19/19 13:46 Blast Cells # 0.0 K/mm3 02/19/19 13:46 WBC Morphology Not Reportable 02/19/19 13:46 Hypersegmented Neuts Not Reportable 02/19/19 13:46 Hyposegmented Neuts Not Reportable 02/19/19 13:46 Hypogranular Neuts Not Reportable 02/19/19 13:46 Smudge Cells Not Reportable 02/19/19 13:46 Toxic Granulation Not Reportable 02/19/19 13:46 Toxic Vacuolation Not Reportable 02/19/19 13:46 Dohle Bodies Not Reportable 02/19/19 13:46 Pelger-Huet Anomaly Not Reportable 02/19/19 13:46 Cisco Rods Not Reportable 02/19/19 13:46 Platelet Estimate Consistent w auto 02/19/19 13:46 Clumped Platelets Few 02/19/19 13:46 Plt Clumps, EDTA Not Reportable 02/19/19 13:46 Large Platelets Not Reportable 02/19/19 13:46 Giant Platelets Not Reportable 02/19/19 13:46 Platelet Satelliting Not Reportable 02/19/19 13:46 Plt Morphology Comment Not Reportable 02/19/19 13:46 RBC Morphology Normal 02/19/19 13:46 Dimorphic RBCs Not Reportable 02/19/19 13:46 Polychromasia Not Reportable 02/19/19 13:46 Hypochromasia Not Reportable 02/19/19 13:46 Poikilocytosis Not Reportable 02/19/19 13:46 Anisocytosis Not Reportable 02/19/19 13:46 Microcytosis Not Reportable 02/19/19 13:46 Macrocytosis Not Reportable 02/19/19 13:46 Spherocytes Not Reportable 02/19/19 13:46 Pappenheimer Bodies Not Reportable 02/19/19 13:46 Sickle Cells Not Reportable 02/19/19 13:46 Target Cells Not Reportable 02/19/19 13:46 Tear Drop Cells Not Reportable 02/19/19 13:46 Ovalocytes Not Reportable 02/19/19 13:46 Helmet Cells Not Reportable 02/19/19 13:46 Starkey-Clara Bodies Not Reportable 02/19/19 13:46 [place] Rings Not Reportable 02/19/19 13:46 [place] Cells Not Reportable 02/19/19 13:46 Bite Cells Not Reportable 02/19/19 13:46 Crenated Cell Not Reportable 02/19/19 13:46 Elliptocytes Not Reportable 02/19/19 13:46 Acanthocytes (Spur) Not Reportable 02/19/19 13:46 Rouleaux Not Reportable 02/19/19 13:46 Hemoglobin C Crystals Not Reportable 02/19/19 13:46 Schistocytes Not Reportable 02/19/19 13:46 Malaria parasites Not Reportable 02/19/19 13:46 Augusto Bodies Not Reportable 02/19/19 13:46 Hem Pathologist Commnt No 02/19/19 13:46 PT 15.6 Sec. (12.2-14.9) H 02/13/19 14:15 INR 1.17 (0.87-1.13) H 02/13/19 14:15 APTT 26.6 Sec. (24.2-36.6) 02/13/19 14:15 D-Dimer 1481.17 ng/mlDDU (0-234) H 02/22/19 08:26 POC ABG pH 7.459 (7.35-7.45) H 02/22/19 04:49 POC ABG pO2 95 (80-105) 02/22/19 04:49 POC ABG HCO3 13.4 (22-26 mml/L) 02/22/19 04:49 POC ABG Total CO2 14 (23-27mmol/L) 02/22/19 04:49 POC ABG O2 Sat 98 02/22/19 04:49 POC ABG Base Excess -10 ((-2) - (+3)mmol/L) 02/22/19 04:49 VBG pH 7.379 (7.320-7.420) 02/13/19 14:08 FiO2 28 % 02/22/19 04:49 Sodium 137 mmol/L (137-145) 02/23/19 06:12 Potassium 4.4 mmol/L (3.6-5.0) 02/23/19 06:12 Chloride 102.2 mmol/L (98-107) 02/23/19 06:12 Carbon Dioxide 19 mmol/L (22-30) L 02/23/19 06:12 Anion Gap 20 mmol/L 02/23/19 06:12 BUN 18 mg/dL (7-17) H 02/23/19 06:12 Creatinine 1.1 mg/dL (0.7-1.2) 02/23/19 06:12 Estimated GFR > 60 ml/min 02/23/19 06:12 BUN/Creatinine Ratio 16 % 02/23/19 06:12 Glucose 52 mg/dL (65-100) L 02/23/19 06:12 POC Glucose 179 (70-105) H 02/24/19 16:05 Hemoglobin A1c 9.2 % (4-6) H 02/13/19 18:15 Ketones Quantitative Negative (Negative) 02/13/19 14:08 Calcium 8.3 mg/dL (8.4-10.2) L 02/23/19 06:12 Phosphorus 3.10 mg/dL (2.5-4.5) 02/15/19 05:32 Magnesium 2.80 mg/dL (1.7-2.3) H 02/15/19 05:32 Total Bilirubin 1.60 mg/dL (0.1-1.2) H 02/14/19 08:15 Direct Bilirubin 1.1 mg/dL (0-0.2) H 02/13/19 14:08 Indirect Bilirubin 0.4 mg/dL 02/13/19 14:08 AST 47 units/L (5-40) H 02/14/19 08:15 ALT 33 units/L (7-56) 02/14/19 08:15 Alkaline Phosphatase 218 units/L (35-129) H 02/14/19 08:15 Ammonia 40.0 umol/L (25-60) 02/13/19 14:15 Total Creatine Kinase 120 units/L (30-135) 02/21/19 11:38 CK-MB (CK-2) 3.6 ng/mL (0.0-4.0) 02/13/19 14:20 CK-MB (CK-2) Rel Index 0.2 (0-4) 02/13/19 14:20 Troponin T 0.072 ng/mL (0.00-0.029) H 02/13/19 14:20 NT-Pro-B Natriuret Pep 6167 pg/mL (0-900) H 02/13/19 14:15 Total Protein 6.2 g/dL (6.3-8.2) L 02/14/19 08:15 Albumin 2.2 g/dL (3.9-5) L 02/14/19 08:15 Albumin/Globulin Ratio 0.6 % 02/14/19 08:15 Triglycerides 329 mg/dL (2-149) H 02/13/19 14:20 Cholesterol 159 mg/dL (50-199) 02/13/19 14:20 LDL Cholesterol Direct 36 mg/dL (50-130) L 02/13/19 14:20 HDL Cholesterol 17 mg/dL (40-59) L 02/13/19 14:20 Cholesterol/HDL Ratio 9.35 % 02/13/19 14:20 Urine Color Steffi (Yellow) 02/14/19 09:07 Urine Turbidity Cloudy (Clear) 02/14/19 09:07 Urine pH 5.0 (5.0-7.0) 02/14/19 09:07 Ur Specific [place] 1.013 (1.003-1.030) 02/14/19 09:07 Urine Protein 100 mg/dl mg/dL (Negative) 02/14/19 09:07 Urine Glucose (UA) 50 mg/dL (Negative) 02/14/19 09:07 Urine Ketones Neg mg/dL (Negative) 02/14/19 09:07 Urine Blood Lg (Negative) 02/14/19 09:07 Urine Nitrite Neg (Negative) 02/14/19 09:07 Urine Bilirubin Neg (Negative) 02/14/19 09:07 Urine Urobilinogen 2.0 mg/dL (<2.0) 02/14/19 09:07 Ur Leukocyte Esterase Lg (Negative) 02/14/19 09:07 Urine WBC (Auto) > 182.0 /HPF (0.0-6.0) H 02/14/19 09:07 Urine RBC (Auto) 9.0 /HPF (0.0-6.0) 02/14/19 09:07 U Epithel Cells (Auto) 1.0 /HPF (0-13.0) 02/14/19 09:07 Urine Bacteria (Auto) 4+ /HPF (Negative) 02/14/19 09:07 Urine WBC Clumps 3+ /HPF 02/14/19 09:07 Ur Transition Epith Cell 1 /HPF 02/14/19 09:07 Urine Mucus Few /HPF 02/14/19 09:07 Vancomycin Trough 14.5 ug/mL (5.0-20.0) 02/15/19 05:32 Urine Opiates Screen Presumptive negative 02/14/19 09:07 Urine Methadone Screen Presumptive negative 02/14/19 09:07 Ur Barbiturates Screen Presumptive negative 02/14/19 09:07 Ur Phencyclidine Scrn Presumptive negative 02/14/19 09:07 Ur Amphetamines Screen Presumptive negative 02/14/19 09:07 U Benzodiazepines Scrn Presumptive negative 02/14/19 09:07 Urine Cocaine Screen Presumptive negative 02/14/19 09:07 U Marijuana (THC) Screen Presumptive negative 02/14/19 09:07 Drugs of Abuse Note Disclamer 02/14/19 09:07 Blood Type B POSITIVE 02/18/19 11:35 Antibody Screen Negative 02/18/19 11:35 Crossmatch See Detail 02/18/19 11:35 Active Medications - Current Medications Current Medications: Generic Name Dose Route Start Last Admin Trade Name Freq PRN Reason Stop Dose Admin Acetaminophen 650 mg 02/13/19 18:03 Tylenol PO Q4H PRN Pain MILD(1-3)/Fever >100.5/MARTÍNEZ Albuterol 2.5 mg 02/22/19 04:53 Proventil IH Q6HRT PRN Shortness Of Breath Aspirin 81 mg 02/14/19 10:00 02/24/19 10:27 Halfprin Ec PO 81 mg DAILY RAFAEL Administration Benzocaine/Menthol 1 each 02/21/19 11:41 02/23/19 09:12 Cepacol X Strength MM 1 each Q2H PRN Administration Sore Throat Clopidogrel Bisulfate 75 mg 02/13/19 19:00 02/24/19 10:27 Plavix PO 75 mg QDAY RAFAEL Administration Dextrose 50 ml 02/14/19 14:03 D50w (25gm) Syringe IV PRN PRN Hypoglycemia Furosemide 40 mg 02/24/19 16:00 02/24/19 17:27 Lasix IV 02/24/19 19:00 40 mg ONCE NR Administration Hydralazine HCl 10 mg 02/16/19 16:04 Apresoline IV Q4HR PRN BP >160/100 Insulin Glargine 22 units 02/25/19 10:00 Lantus SUB-Q DAILY RAFAEL Insulin Human Lispro 0 unit 02/23/19 16:30 02/24/19 17:30 Humalog SUB-Q 3 unit AC RAFAEL Administration Protocol Nifedipine 60 mg 02/16/19 22:00 02/24/19 10:27 Procardia Xl PO 60 mg Q12HR RAFAEL Administration Ondansetron HCl 4 mg 02/13/19 18:03 Zofran IV Q8H PRN Nausea And Vomiting Oxycodone/Acetaminophen 1 tab 02/13/19 18:03 02/24/19 17:26 Percocet 5/325 PO 1 tab Q6H PRN Administration Pain, Moderate (4-6) Phenol 1 spray 02/21/19 11:41 Chloraseptic MM PRN PRN Sore Throat Sodium Chloride 10 ml 02/13/19 22:00 02/24/19 10:27 Sodium Chloride Flush Syringe 10 Ml IV 10 ml BID RAFAEL Administration Sodium Chloride 10 ml 02/13/19 18:03 Sodium Chloride Flush Syringe 10 Ml IV PRN PRN LINE FLUSH Nutrition/Malnutrition Assess - Dietary Evaluation Nutrition/Malnutrition Findings: Nutrition Notes Start: 02/19/19 14:33 Freq: Status: Active Protocol: Document 02/19/19 14:34 RM (Rec: 02/19/19 14:34 RM [id number]) Nutrition Notes Need for Assessment generated from: LOS Initial or Follow up Brief Note Height 5 ft 3 in Weight 110.03 kg [place] Body Weight (kg) 52.27 BMI 43.0 Subjective/Other Information Screened for LOS. PO intake 85% X 2 days. Nutrition Intervention Revisit per MD consult or patient Sign Off request:
[2019-02-25] MEDS: PROVENTIL IH PRN (03:12)
[2019-02-25] MEDS: HumaLOG SUB-Q SCH ×3 (09:18→17:53)
[2019-02-25] MEDS: LANTUS SUB-Q SCH (09:19)
[2019-02-25] MEDS: HALFPRIN EC PO SCH (09:21)
[2019-02-25] MEDS: PLAVIX PO SCH (09:21)
[2019-02-25] MEDS: PROCARDIA XL PO SCH ×2 (09:21→21:50)
[2019-02-25] MEDS: SODIUM CHLORIDE FLUSH SYRINGE 10 ML IV SCH (09:29)
[2019-02-25] MEDS: CEPACOL X STRENGTH MM PRN (12:17)
[2019-02-25] MEDS: PERCOCET 5/325 PO PRN (21:49)
[2019-02-26] MEDS: HumaLOG SUB-Q SCH ×3 (08:51→17:20)
[2019-02-26] MEDS: PLAVIX PO SCH (09:01)
[2019-02-26] MEDS: LANTUS SUB-Q SCH (09:02)
[2019-02-26] MEDS: HALFPRIN EC PO SCH (09:02)
[2019-02-26] MEDS: PROCARDIA XL PO SCH ×2 (09:02→21:15)
[2019-02-26] MEDS: SODIUM CHLORIDE FLUSH SYRINGE 10 ML IV SCH ×2 (09:02→21:14)
[2019-02-26] MEDS: PERCOCET 5/325 PO PRN ×2 (10:49→21:14)
--- NOTE | 2019-02-26 17:32 | Progress Note ---
Assessment and Plan 58-year-old female with presentation for sepsis from urinary tract infection with right second digit gangrene and eschar associated with wound bed. PVD managed by Dr. Gonsales whom attempted to treat the patient as an outpatient requiring inpatient admission, thrombolysis and fasciotomy. [facility] was contacted for fasciotomy assistance/management. Peripheral vascular disease management per Dr. Gonsales. Podiatric management of 2nd digit gangrene per Dr. Laura. Fasciotomy will need HBO and wound care. Discussed with Dr. Laura who understands. PVD will need to be optimized to salvage right lower extremity. Subjective Date of service: 02/26/19 Principal diagnosis: PVD with gangrene right toe, status post fasciotomies Interval history: Right foot slightly swollen after debridement. Agree with elevation of foot. Right DP not as easy to palpable due to swelling. Objective - Constitutional Vitals: Vital Signs - 12hr 02/26/19 02/26/19 02/26/19 06:54 11:43 16:52 Temperature 97.5 F L 98.2 F 98.4 F Pulse Rate 100 H 107 H 104 H Respiratory 20 24 24 Rate Blood Pressure 136/77 127/68 140/70 O2 Sat by Pulse 97 97 96 Oximetry General appearance: Present: no acute distress - EENT Eyes: EOM intact ENT: hearing intact - Respiratory Respiratory effort: normal Extremities: normal temperature, normal color, abnormal (bandages right lower extremity) Extremity abnormal: edema - Psychiatric Psychiatric: appropriate mood/affect, cooperative - Labs CBC & Chem 7: 02/19/19 13:46 02/23/19 06:12 Labs: Abnormal lab results 02/25/19 02/25/19 02/25/19 Range/Units 11:54 16:34 21:52 POC Glucose 260 H 198 H 254 H (70-105) 02/26/19 02/26/19 02/26/19 Range/Units 07:54 11:49 16:00 POC Glucose 213 H 306 H 183 H (70-105) Medications & Allergies - Medications Allergies/Adverse Reactions: Allergies No Known Allergies Allergy (Verified 01/28/19 21:26) Home Medications: Home Medications Medication Instructions Recorded Confirmed Last Taken Type Aspirin [Low Dose Aspirin EC] 81 mg PO DAILY #30 tablet. 02/04/19 02/16/19 02/14/19 10:00 Rx Clopidogrel [Plavix] 75 mg PO QDAY #30 tablet 02/04/19 02/16/19 02/14/19 10:00 Rx Lispro Insulin [Humalog] 0 unit SUB-Q ACHS units 02/20/19 Unknown Rx Lispro Insulin [Humalog] 5 unit SUB-Q AC 30 Days units 02/20/19 Unknown Rx Multivitamin with Iron [Tab-A-Lupe 1 each PO DAILY #30 tablet 02/20/19 Unknown Rx with Iron] Valsartan [Diovan] 160 mg PO BID #60 tablet 02/20/19 Unknown Rx oxyCODONE /ACETAMINOPHEN [Percocet 1 tab PO Q6H PRN #20 tablet 02/20/19 Unknown Rx 5/325 mg] Insulin Glargine [Lantus VIAL] 22 units SUB-Q DAILY #1 vial 02/25/19 Unknown Rx Insulin Lispro [HumaLOG VIAL] 0 units SQ AC #1 vial 02/25/19 Unknown Rx Active Medications: Generic Name Dose Route Start Last Admin Trade Name Graysonq PRN Reason Stop Dose Admin Acetaminophen 650 mg 02/13/19 18:03 Tylenol PO Q4H PRN Pain MILD(1-3)/Fever >100.5/MARTÍNEZ Albuterol 2.5 mg 02/22/19 04:53 02/25/19 03:12 Proventil IH 2.5 mg Q6HRT PRN Administration Shortness Of Breath Aspirin 81 mg 02/14/19 10:00 02/26/19 09:02 Halfprin Ec PO 81 mg DAILY RAFAEL Administration Benzocaine/Menthol 1 each 02/21/19 11:41 02/25/19 12:17 Cepacol X Strength MM 1 each Q2H PRN Administration Sore Throat Clopidogrel Bisulfate 75 mg 02/13/19 19:00 02/26/19 09:01 Plavix PO 75 mg QDAY RAFAEL Administration Dextrose 50 ml 02/14/19 14:03 D50w (25gm) Syringe IV PRN PRN Hypoglycemia Hydralazine HCl 10 mg 02/16/19 16:04 Apresoline IV Q4HR PRN BP >160/100 Insulin Glargine 22 units 02/25/19 10:00 02/26/19 09:02 Lantus SUB-Q 22 units DAILY RAFAEL Administration Insulin Human Lispro 0 unit 02/23/19 16:30 02/26/19 17:20 Humalog SUB-Q 3 unit AC RAFAEL Administration Protocol Nifedipine 60 mg 02/16/19 22:00 02/26/19 09:02 Procardia Xl PO 60 mg Q12HR RAFAEL Administration Ondansetron HCl 4 mg 02/13/19 18:03 Zofran IV Q8H PRN Nausea And Vomiting Oxycodone/Acetaminophen 1 tab 02/13/19 18:03 02/26/19 10:49 Percocet 5/325 PO 1 tab Q6H PRN Administration Pain, Moderate (4-6) Phenol 1 spray 02/21/19 11:41 Chloraseptic MM PRN PRN Sore Throat Sodium Chloride 10 ml 02/13/19 22:00 02/26/19 09:02 Sodium Chloride Flush Syringe 10 Ml IV 10 ml BID RAFAEL Administration Sodium Chloride 10 ml 02/13/19 18:03 Sodium Chloride Flush Syringe 10 Ml IV PRN PRN LINE FLUSH
[2019-02-27] MEDS: HumaLOG SUB-Q SCH ×3 (09:23→17:37)
[2019-02-27] MEDS: LANTUS SUB-Q SCH (09:24)
[2019-02-27] MEDS: HALFPRIN EC PO SCH (09:26)
[2019-02-27] MEDS: PROCARDIA XL PO SCH ×2 (09:26→22:09)
[2019-02-27] MEDS: PLAVIX PO SCH (09:26)
[2019-02-27] MEDS: SODIUM CHLORIDE FLUSH SYRINGE 10 ML IV SCH (09:27)
[2019-02-27] MEDS: PERCOCET 5/325 PO PRN (22:14)
--- NOTE | 2019-02-27 22:57 | Progress Note ---
Assessment and Plan 58F who was sent from rehab facility for confusion and lethargy recently admitted and had ekos, arterial Thrombolysis to RLE for RLE ischemia, and R leg 4 compartment fasciotomy on 01/[address] Jeong Vascular duplex shows Right iliac arterial stenosis CT head; no acute findings CXR no acute findings Labs; UA > 182 WBC Micro; urine and blood growing ecoli sens to current abx Diagnosis sepsis, ecoli Bactermia and Ecoli UTI PNA? Acute hypoxic respiratory failure anemia, likely due to chronic disease HHNK, Type 2 DM, A1c 9 Hyponatremia, likely pseudohyponatremia of hyperglycemia Hyperkalemia GERALDINE- likely ATN Hypomagesemia- resolved PAD hx of RLE ischemia, sp thrombolysis, revascularization and fascitomy dry gangrene, R second toe Rhabdomylsis, non traumatic acute metabolic encephalopathy Fluid overload Plan has completed abx, ID consult appreciated -Repeat chest x-ray show clearance of infiltrate after Lasix and discontinuation of IV fluids. Which essentially has ruled out pneumonia. vq scan and lower extremity Dopplers were negative . She has been started on antibiotics, continue empiric antibiotics, continue supplemental oxygen. The patient has normal ejection fraction. She's been on IV fluids for quite a long time, IV fluids were discontinued, she received diuretics. optimize insulins and BP meds, IVF, renal US, nephrology consult appreciated, Cr improving Mg was repleted, Kayexalate given on 02/17, 1 unit prbc given on 02/18 vascular consult appreciated, sp debridement of R leg wound on 02/20, necrotic tissue removed, need to fup as outpatient for amputation of R second toe DVT ppx- chemical Dispo; to SNF Subjective Date of service: 02/26/19 Principal diagnosis: PVD with gangrene right toe, status post fasciotomies Interval history: No new complaint. Objective - Exam Narrative Exam: Constitutional: Laying quietly in bed . In no distress Head: Normocephalic atraumatic Eyes: Pupils are equal round and reactive to light Nose: No enlarged turbinates, no septal deviation. Mouth: Moist mucous membranes. Neck: Supple no thyromegaly. No bruit. No JVD Heart: Regular rate and rhythm, S1-S2 normal. No rubs murmurs or gallop Lungs: Clear to auscultation bilaterally. no rales or rhonchi Abdomen: Soft, nontender. Bowel sound are present. Extremities: No edema, no cyanosis, no clubbing. Neuro: Alert oriented Oriented x3. No focal sensory or motor deficit. Skin: No rashes or hyperpigmented spots Musculoskeletal system: No joint pain or swelling Hematological: No petechia or subcutanous hemorrhages. Immunological: No multiple septic spots on the skin Lymphatic: No generalized lymphadenopathy Psychiatry: Euthymic. Calm. - Constitutional Vitals: Vital Signs - 12hr 02/27/19 02/27/19 02/27/19 11:19 17:15 22:00 Temperature 98.5 F 98.6 F Pulse Rate 108 H 108 H Respiratory 20 19 Rate Blood Pressure 128/53 144/77 O2 Sat by Pulse 95 95 98 Oximetry 02/27/19 02/27/19 02/27/19 22:07 22:14 22:45 Temperature Pulse Rate 107 H 101 H Respiratory 22 26 H Rate Blood Pressure 142/68 O2 Sat by Pulse 91 98 Oximetry - Labs CBC & Chem 7: 02/19/19 13:46 02/23/19 06:12 Labs: Abnormal lab results 02/27/19 02/27/19 02/27/19 Range/Units 07:44 11:11 16:57 POC Glucose 171 H 217 H 199 H (70-105)
[2019-02-28] MEDS: SODIUM CHLORIDE FLUSH SYRINGE 10 ML IV SCH ×3 (01:48→22:29)
[2019-02-28] MEDS: CHLORASEPTIC MM PRN ×2 (07:58→09:32)
[2019-02-28] MEDS: PLAVIX PO SCH (09:19)
[2019-02-28] MEDS: HALFPRIN EC PO SCH (09:19)
[2019-02-28] MEDS: PROCARDIA XL PO SCH ×2 (09:19→22:26)
[2019-02-28] MEDS: LANTUS SUB-Q SCH (09:21)
[2019-02-28] MEDS: HumaLOG SUB-Q SCH ×3 (09:22→18:06)
[2019-02-28] MEDS: PROVENTIL IH PRN ×2 (11:58→16:08)
--- NOTE | 2019-02-28 13:14 | Progress Note ---
Subjective Date of service: 02/28/19 Principal diagnosis: PVD with gangrene right toe, status post fasciotomies Objective - Constitutional Vitals: Vital Signs - 12hr 02/28/19 02/28/19 02/28/19 02:09 02:23 05:49 Temperature 97.6 F Pulse Rate 101 H Pulse Rate [ Anterior Bilateral Throughout] Respiratory 22 20 Rate Respiratory Rate [Anterior Bilateral Throughout] Respiratory 24 Rate [Right Leg ] Blood Pressure 147/68 O2 Sat by Pulse 100 Oximetry 02/28/19 02/28/19 02/28/19 09:16 10:03 11:57 Temperature Pulse Rate Pulse Rate [ 113 H Anterior Bilateral Throughout] Respiratory Rate Respiratory 22 Rate [Anterior Bilateral Throughout] Respiratory Rate [Right Leg ] Blood Pressure 138/68 O2 Sat by Pulse 97 Oximetry 02/28/19 02/28/19 12:09 12:10 Temperature 98.3 F Pulse Rate 112 H Pulse Rate [ 118 H Anterior Bilateral Throughout] Respiratory 19 Rate Respiratory 20 Rate [Anterior Bilateral Throughout] Respiratory Rate [Right Leg ] Blood Pressure 138/71 O2 Sat by Pulse 92 Oximetry - Labs CBC & Chem 7: 02/19/19 13:46 02/23/19 06:12 Labs: Abnormal lab results 02/27/19 02/27/19 02/28/19 Range/Units 16:57 21:48 07:36 POC Glucose 199 H 161 H 148 H (70-105) 02/28/19 Range/Units 11:41 POC Glucose 244 H (70-105)
[2019-02-28] MEDS: CEPACOL X STRENGTH MM PRN (13:21)
--- NOTE | 2019-02-28 15:41 | Progress Note ---
Assessment and Plan 58F who was sent from rehab facility for confusion and lethargy recently admitted and had ekos, arterial Thrombolysis to RLE for RLE ischemia, and R leg 4 compartment fasciotomy on 01/[address] Jeong Vascular duplex shows Right iliac arterial stenosis CT head; no acute findings CXR no acute findings Labs; UA > 182 WBC Micro; urine and blood growing ecoli sens to current abx Diagnosis sepsis, ecoli Bactermia and Ecoli UTI PNA? Acute hypoxic respiratory failure - resolved anemia, likely due to chronic disease HHNK, Type 2 DM, A1c 9 - improved Hyponatremia, likely pseudohyponatremia of hyperglycemia Hyperkalemia GERALDINE- likely ATN Hypomagesemia- resolved PAD hx of RLE ischemia, sp thrombolysis, revascularization and fascitomy dry gangrene, R second toe Vascular surgeon following Rhabdomylsis, non traumatic acute metabolic encephalopathy - resolved Plan CXR, commence pt on Hydromet. CBC and CMP has completed abx, ID consult appreciated She has been started on antibiotics, continue empiric antibiotics, continue supplemental oxygen. The patient has normal ejection fraction. She's been on IV fluids for quite a long time, IV fluids were discontinued, she received diuretics. optimize insulins and BP meds, IVF, renal US, nephrology consult appreciated, Cr improving Mg was repleted, Kayexalate given on 02/17, 1 unit prbc given on 02/18 vascular consult appreciated, sp debridement of R leg wound on 02/20, necrotic tissue removed, need to fup as outpatient for amputation of R second toe DVT ppx- chemical Dispo: Awaiting SNF placemtn as pt whoinitially said she wantd to go home later changed her mind robert she now wnat to go back to SNF but had lost her bed at the initial SNF Subjective Date of service: 02/28/19 Principal diagnosis: PVD with gangrene right toe, status post fasciotomies Interval history: coughing and having shortness of breath. No fever Objective - Exam Narrative Exam: Constitutional: Laying quietly in bed. In no distress Head: Normocephalic atraumatic Eyes: Pupils are equal round and reactive to light Nose: No enlarged turbinates, no septal deviation. Mouth: Moist mucous membranes. Neck: Supple no thyromegaly. No bruit. No JVD Heart: Regular rate and rhythm, S1-S2 normal. No rubs murmurs or gallop Lungs: Clear to auscultation bilaterally. no rales or rhonchi Abdomen: Soft, nontender. Bowel sound are present. Extremities: No edema, no cyanosis, no clubbing. Neuro: Alert oriented Oriented x3. No focal sensory or motor deficit. Skin: No rashes or hyperpigmented spots Musculoskeletal system: No joint pain or swelling Hematological: No petechia or subcutanous hemorrhages. Immunological: No multiple septic spots on the skin Lymphatic: No generalized lymphadenopathy Psychiatry: Euthymic. Calm. - Constitutional Vitals: Vital Signs - 12hr 02/28/19 02/28/19 02/28/19 05:49 09:16 10:03 Temperature 97.6 F Pulse Rate 101 H Pulse Rate [ Anterior Bilateral Throughout] Respiratory 20 Rate Respiratory Rate [Anterior Bilateral Throughout] Blood Pressure 147/68 138/68 O2 Sat by Pulse 100 97 Oximetry 02/28/19 02/28/19 02/28/19 11:57 12:09 12:10 Temperature 98.3 F Pulse Rate 112 H Pulse Rate [ 113 H 118 H Anterior Bilateral Throughout] Respiratory 19 Rate Respiratory 22 20 Rate [Anterior Bilateral Throughout] Blood Pressure 138/71 O2 Sat by Pulse 92 Oximetry - Labs CBC & Chem 7: 02/19/19 13:46 02/23/19 06:12 Labs: Abnormal lab results 02/27/19 02/27/19 02/28/19 Range/Units 16:57 21:48 07:36 POC Glucose 199 H 161 H 148 H (70-105) 02/28/19 Range/Units 11:41 POC Glucose 244 H (70-105)
[2019-02-28] MEDS ORDERED: HYDROMET PO PRN (16:00)
[2019-02-28] MEDS ORDERED: ATIVAN ONE (16:53)
[2019-02-28] MEDS ORDERED: ATIVAN IV ONE (16:54)
[2019-02-28] MEDS ORDERED: MORPHINE IV ONE (16:58)
[2019-02-28] MEDS: SOLU-Medrol IV SCH ×2 (17:00→22:28)
[2019-02-28] MEDS ORDERED: MORPHINE ONE (17:03)
--- NOTE | 2019-02-28 17:25 | Event Note ---
Date: 02/28/19 Called to see pt who started having shortness of breath with left-sided chest pain. Also note is that pt has multiple arterial with PVA worse on the right Lower extremity s/p thrombolysis and subequent fasciotomy of th right leg with melaing wound. ALso had dry gangrene of the right 2nd toes Pt was commenced on PIBAB was oxygen by nasal canular did not alleviate her was shortness of breath. EKG , ASA serial Troponine levels and BB ordered Heparin gtt was ordered an EKG showed questionable elevation of ST segment in lead V3-4. Will order CTA to R/o PE. Disucssed with Vascular Surgeon Dr. Monroe as to the detailed of what was done. Will obtain Pulm and cardiology consults.
[2019-02-28] MEDS ORDERED: NITRO DUR TD STA (17:46)
[2019-02-28] MEDS ORDERED: HEPARIN/ 0.45% NACL-25,000 UNIT/500 ML 25,000 UNIT/500 ML BAG IV SCH (18:00)
[2019-02-28] MEDS ORDERED: MORPHINE IV PRN (18:05)
--- NOTE | 2019-02-28 18:13 | XRay Report ---
PROCEDURE: XR CHEST 1V AP TECHNIQUE: Frontal portable view of the chest HISTORY: cough and shortness of breath COMPARISONS: Chest x-ray dated February 24, 2019. The report of that study is not available for review a t the time of this dictation. FINDINGS: There are diffuse bilateral areas of pulmonary consolidation/airspace process that appear to be new s amy the previous study. There appears to be bilateral pleural effusions. The cardiac silhouette is enlarged similar in appearance to the previous study. The thoracic aorta is not well visualized. The bony structures are unremarkable. Visualization of detail of the thoracic spine is limited. IMPRESSION: 1. Diffuse bilateral airspace process and bilateral pleural effusions. Infectious and noninfectious e tiologies, to include CHF, need to be considered. If further imaging is required, CT chest may be helpful. 2. Enlarged cardiac silhouette. This document is electronically signed by Brianna Sorenson MD., February 28 2019 06:11:42 PM ET
[2019-02-28 19:05] LABS: Hematocrit 21.2 % (30.3-42.9); Hemoglobin 6.5 gm/dl (10.1-14.3); Mean Corpuscular HGB Conc 31 % (30-34); Mean Corpuscular Volume 90 fl (79-97); Platelet Count 631 K/mm3 (140-440); Red Blood Count 2.35 M/mm3 (3.65-5.03); Red Cell Distribution Width 17.6 % (13.2-15.2)
[2019-02-28 19:12] LABS: Creatine Kinase MB 4.9 ng/mL (0.0-4.0)
[2019-02-28 19:15] LABS: INR 1.16 (0.87-1.13)
[2019-02-28 19:16] LABS: Partial Thromboplastin Time 29.5 Sec. (24.2-36.6)
[2019-02-28] MEDS: DUONEB *Not for PRN Use IH SCH (19:16)
[2019-02-28 19:28] LABS: Albumin 2.7 g/dL (3.9-5); Calcium 8.3 mg/dL (8.4-10.2)
[2019-02-28 20:03] LABS: Basophils % (Manual) 0 % (0.0-1.8); Eosinophils % (Manual) 0 % (0.0-4.3); Total Cells Counted 100
[2019-02-28 20:04] LABS: Hypochromasia 2+
[2019-02-28] MEDS: ASPIRIN PO SCH (20:04)
[2019-02-28 20:05] LABS: Anisocytosis 2+
[2019-02-28 20:06] LABS: Large Platelets Few; Platelet Estimate Appears Increased; Poikilocytosis Few
[2019-02-28] MEDS ORDERED: DIPRIVAN 10 MG/ML IV ONE ×2 (20:55→21:00)
[2019-02-28] MEDS ORDERED: NACL 0.9% 500 ML 500 ML IV ONE (21:00)
[2019-02-28] MEDS ORDERED: SUBLIMAZE IV PRN (21:01)
[2019-02-28] MEDS ORDERED: VERSED IV PRN (21:01)
[2019-02-28] MEDS ORDERED: NACL 0.9% 500 ML 500 ML ONE (21:06)
[2019-02-28] MEDS ORDERED: VASELINE LIP THERAPY TP PRN (21:29)
[2019-02-28] MEDS ORDERED: MIDAZOLAM 100 MG in NACL 0.9% 80 ML IV SCH (22:00)
[2019-02-28] MEDS ORDERED: fentaNYL DRIP Premix 2,000 MCG/100 ML BAG IV SCH (22:00)
--- NOTE | 2019-02-28 22:14 | XRay Report ---
PROCEDURE: XR CHEST 1V AP TECHNIQUE: Chest radiograph , single frontal view. HISTORY: ETT placement COMPARISONS: CXR 02/28/2019 at 9:36 PM . FINDINGS: Heart: Enlarged but stable. Mediastinum/Vessels: Normal. Lungs/Pleural space: Diffuse bilateral alveolar infiltrates are again noted with small bilateral eff usions. Findings are consistent with pulmonary edema versus bilateral pneumonia. Bony thorax: No acute osseous abnormality. Life support devices: Endotracheal tube has been pulled back and now terminates 1.8 cm above the blanco na.. IMPRESSION: Diffuse bilateral alveolar infiltrates with bilateral effusions again noted, no change. The endotracheal tube has been pulled back and is now above the bharathi. This document is electronically signed by Allyssa Chavez MD., February 28 2019 10:12:18 PM ET
--- NOTE | 2019-02-28 22:17 | XRay Report ---
PROCEDURE: XR CHEST 1V AP TECHNIQUE: Chest radiograph , single frontal view. HISTORY: ETT placement COMPARISONS: 02/28/2019 at 5:45 PM. FINDINGS: Heart: Enlarged but stable. Mediastinum/Vessels: Normal. Lungs/Pleural space: Bilateral diffuse alveolar infiltrates are noted consistent with pulmonary george a versus bilateral pneumonia. Small bilateral effusions are also noted Bony thorax: No acute osseous abnormality. Life support devices: Endotracheal tube has been placed but it terminates in the right mainstem bronc hus. This needs to be pulled back a minimum of 3 cm to be in the trachea. IMPRESSION: 1. Endotracheal tube terminates in the right mainstem bronchus. This needs to be pulled back a minimu m of 3 cm to be located in the trachea. 2. Cardiomegaly 3. Bilateral diffuse alveolar infiltrates and pleural effusions. Findings are likely consistent with pulmonary edema versus bilateral pneumonia Note: At the time of this dictation, there was already a repeat chest x-ray obtained at 9:39 PM which showed satisfactory placement of the ET tube above the bharathi. Therefore, no one was notified of the ET tube positioning on this film.. This document is electronically signed by Allyssa Chavez MD., February 28 2019 10:15:47 PM ET
[2019-02-28] MEDS ORDERED: ADRENALIN ONE (23:00)
[2019-02-28] MEDS ORDERED: ATROPINE 0.1% (CARDIAC) ONE (23:00)
[2019-02-28] MEDS ORDERED: INTROPIN DRIP 800 MG/D5W 250 ML IV ONE (23:00)
[2019-02-28] MEDS ORDERED: VERSED IV ONE (23:00)
[2019-02-28] MEDS ORDERED: XYLOCAINE CARDIAC IV ONE (23:00)
[2019-02-28] MEDS ORDERED: ZEMURON IV ONE (23:00)
[2019-02-28] MEDS: SODIUM BICARBONATE 75 MEQ in D5W 1,000 ML IV SCH (23:38)
[2019-03-01 00:27] LABS: Albumin 2.7 g/dL (3.9-5); Calcium 8.4 mg/dL (8.4-10.2)
[2019-03-01] MEDS: INTROPIN DRIP 800 MG/D5W 250 ML 800 MG/250 ML BAG IV SCH ×4 (01:35→20:39)
[2019-03-01 01:38] LABS: Albumin 2.5 g/dL (3.9-5); Calcium 8.1 mg/dL (8.4-10.2)
[2019-03-01] MEDS ORDERED: LEVOPHED DRIP 4 MG/NS 250 ML 4 MG/250 ML BAG IV ONE (01:38)
[2019-03-01] MEDS: HumaLOG SUB-Q SCH ×4 (02:00→18:57)
[2019-03-01] MEDS ORDERED: NACL 0.9% 1000 ML 1,000 ML IV ONE ×6 (02:22→05:30)
[2019-03-01] MEDS: LEVOPHED DRIP 4 MG/NS 250 ML 4 MG/250 ML BAG IV SCH ×9 (02:41→21:56)
--- NOTE | 2019-03-01 02:51 | Event Note ---
Date: 03/01/19 Patient is a 58-year-old female in the ICU a CODE BLUE was called and I responded to CODE BLUE with the CODE BLUE team. Code was ran in according to ACLS protocol, spontaneous return of circulation noted. Report given to hospitalist Dr. Marinelli. After the code was completed, I was asked to start a central line. See procedure note below. Central line procedure note: Right femoral triple lumen placed. Site cleaned and draped in a sterile fashion. Vein cannulated on first attempt. Triple-lumen placed. Prior to the catheter being placed a guidewire was used with a dilator. Once the catheter was place, good blood flow noted in all 3 lm. Blood flow was dark and nonpulsatile. Antibiotic patch placed triple lumen sutured into place sterile dressing with Tegaderm placed over the site. Triple-lumen central line was placed without complications. Line was cleared for use.
[2019-03-01] MEDS: DUONEB *Not for PRN Use IH SCH ×5 (04:28→20:22)
[2019-03-01] MEDS: SODIUM BICARBONATE 75 MEQ in D5W 1,000 ML IV SCH ×5 (05:05→23:52)
[2019-03-01 05:10] LABS: Calcium 6.9 mg/dL (8.4-10.2)
[2019-03-01] MEDS ORDERED: VANCOMYCIN/NS 1 GM/250 ML 1 GM/250 ML BAG IV ONE ×2 (05:11→13:00)
[2019-03-01] MEDS ORDERED: ZOSYN/NS 4.5GM/100ML 4.5 GM/100 ML VIAL IV ONE (05:11)
[2019-03-01] MEDS: SOLU-Medrol IV SCH ×2 (05:53→13:39)
[2019-03-01] MEDS ORDERED: NITRO DUR TD SCH (06:00)
[2019-03-01 06:11] LABS: Mean Corpuscular HGB Conc 29 % (30-34); Mean Corpuscular Volume 97 fl (79-97); Platelet Count 358 K/mm3 (140-440); Red Blood Count 1.78 M/mm3 (3.65-5.03); Red Cell Distribution Width 18.3 % (13.2-15.2)
[2019-03-01 06:17] LABS: Hematocrit 17.4 % (30.3-42.9)
[2019-03-01] MEDS ORDERED: NACL 0.9% 500 ML 500 ML IV ONE ×2 (06:29→09:42)
[2019-03-01 06:56] LABS: Band Neutrophils # (Manual) 0.2 K/mm3; Basophils % (Manual) 0 % (0.0-1.8); Eosinophils % (Manual) 0 % (0.0-4.3); Total Cells Counted 100
[2019-03-01 06:57] LABS: Anisocytosis 1+; Burr Cells 1+; Poikilocytosis 1+
[2019-03-01 06:58] LABS: Platelet Estimate Consistent w Auto
[2019-03-01] MEDS ORDERED: NACL 0.9% 500 ML 500 ML ONE (09:07)
--- NOTE | 2019-03-01 09:18 | XRay Report ---
AP CHEST :03/01/19 08:18 CLINICAL: Intubated.Follow up respiratory failure. COMPARISON:02/28/19 FINDINGS: The endotracheal tube tip remains slightly above the bharathi. No other tubes or lines. Multilobar bilateral airspace disease with slight increased opacification of the right upper lobe. The left lung is stable. No pneumothorax. Cardiomegaly and central vascular congestion with indistinctness of the pulmonary vessels. IMPRESSION: CHF with multilobar pulmonary edema with worsening in the right upper lobe compared to the previous exam.
--- NOTE | 2019-03-01 09:22 | Consultation ---
History of Present Illness Consult date: 03/01/19 Reason for consult: dyspnea, hypoxemia, other (respiratory failure requiring mechanical ventilation, shock) History of present illness: Call to evaluate case of a 58F who was sent from rehab facility for confusion and lethargy, recently admitted and had reportedly EKOS, with arterial Thrombolysis to RLE for RLE ischemia, and R leg compartment fasciotomy on 01/[address] Jeong. The patient was at the floor are started complaining repor tedly of breathing problem. Transfer to the ICU for CODE BLUE was called and the patient was intubated and a right femoral line was placed in. Currently hypothermic on pressor, hemoglobin is 5 g per DL. PRBC transfusions 2 initiated. Chest x-ray showed the patient successfully intubated what appears to be vascular congestion. 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 denies: smoking, alcohol abuse, prescription drug abuse, IV drug use Medications and Allergies Allergies Allergy/AdvReac Type Severity Reaction Status Date / Time No Known Allergies Allergy Verified 01/28/19 21:26 Home Medications Medication Instructions Recorded Confirmed Last Taken Type Aspirin [Low Dose Aspirin EC] 81 mg PO DAILY #30 tablet. 02/04/19 02/16/19 02/14/19 10:00 Rx Clopidogrel [Plavix] 75 mg PO QDAY #30 tablet 02/04/19 02/16/19 02/14/19 10:00 Rx Lispro Insulin [Humalog] 0 unit SUB-Q ACHS units 02/20/19 Unknown Rx Lispro Insulin [Humalog] 5 unit SUB-Q AC 30 Days units 02/20/19 Unknown Rx Multivitamin with Iron [Tab-A-Lupe 1 each PO DAILY #30 tablet 02/20/19 Unknown Rx with Iron] Valsartan [Diovan] 160 mg PO BID #60 tablet 02/20/19 Unknown Rx oxyCODONE /ACETAMINOPHEN [Percocet 1 tab PO Q6H PRN #20 tablet 02/20/19 Unknown Rx 5/325 mg] Insulin Glargine [Lantus VIAL] 22 units SUB-Q DAILY #1 vial 02/25/19 Unknown Rx Insulin Lispro [HumaLOG VIAL] 0 units SQ AC #1 vial 02/25/19 Unknown Rx Active Meds: Active Medications Acetaminophen (Tylenol) 650 mg PO Q4H PRN PRN Reason: Pain MILD(1-3)/Fever >100.5/MARTÍNEZ Albuterol (Proventil) 2.5 mg IH Q6HRT PRN PRN Reason: Shortness Of Breath Last Admin: 02/28/19 16:08 Dose: 2.5 mg Documented by: Albuterol/Ipratropium (Duoneb *Not For Prn Use*) 1 ampul IH Q6HRT [facility] Last Admin: 03/01/19 08:33 Dose: 1 ampul Documented by: Aspirin (Aspirin) 325 mg PO QDAY [facility] Last Admin: 02/28/19 20:04 Dose: Not Given Documented by: Benzocaine/Menthol (Cepacol X Strength) 1 each MM Q2H PRN PRN Reason: Sore Throat Last Admin: 02/28/19 13:21 Dose: 1 each Documented by: Clopidogrel Bisulfate (Plavix) 75 mg PO QDAY [facility] Last Admin: 02/28/19 09:19 Dose: 75 mg Documented by: Dextrose (D50w (25gm) Syringe) 50 ml IV PRN PRN PRN Reason: Hypoglycemia Famotidine (Pepcid) 20 mg IV DAILY [facility] Fentanyl (Sublimaze) 50 mcg IV Q10MIN PRN PRN Reason: ANALGESIA Hydralazine HCl (Apresoline) 10 mg IV Q4HR PRN PRN Reason: BP >160/100 Hydrophilic Ointment (Vaseline Lip Therapy) 1 applic TP Q2HR PRN PRN Reason: Dry Lips Heparin Sodium/Sodium Chloride (Heparin/ 0.45% Nacl-25,000 Unit/500 Ml) 25,000 unit in 500 mls @ 20 mls/hr IV TITRATE [facility]; Protocol Last Admin: 02/28/19 18:43 Dose: 1,000 units/hr, 20 mls/hr Documented by: Fentanyl Citrate (Fentanyl Drip Premix) 2,000 mcg in 100 mls @ 5.665 mls/hr IV TITR [facility]; Protocol Last Titration: 03/01/19 00:46 Dose: 0 mcg/kg/hr, 0 mls/hr Documented by: Midazolam HCl 100 mg/ Sodium (Chloride) 100 mls @ 2 mls/hr IV TITR [facility]; Protocol Last Titration: 03/01/19 00:47 Dose: 0 mg/hr, 0 mls/hr Documented by: Sodium Bicarbonate 75 meq/ (Dextrose) 1,075 mls @ 250 mls/hr IV DIRECT [facility] Last Admin: 03/01/19 05:05 Dose: 250 mls/hr Documented by: Norepinephrine (Levophed Drip 4 Mg/Ns 250 Ml) 4 mg in 250 mls @ 7.5 mls/hr IV TITR [facility]; Protocol Last Admin: 03/01/19 07:24 Dose: 30 mcg/min, 112.5 mls/hr Documented by: Dopamine HCl/Dextrose (Intropin Drip 800 Mg/D5w 250 Ml) 800 mg in 250 mls @ 4.249 mls/hr IV TITR [facility]; Protocol Last Admin: 03/01/19 07:26 Dose: 20 mcg/kg/min, 42.488 mls/hr Documented by: Insulin Glargine (Lantus) 22 units SUB-Q DAILY [facility] Last Admin: 02/28/19 09:21 Dose: 22 units Documented by: Insulin Human Lispro (Humalog) 0 unit SUB-Q Q6HR [facility]; Protocol Last Admin: 03/01/19 07:49 Dose: 8 unit Documented by: Methylprednisolone Sodium Succinate (Solu-Medrol) 80 mg IV Q8HR [facility] Last Admin: 03/01/19 05:53 Dose: 80 mg Documented by: Midazolam HCl (Versed) 2 mg IV Q10MIN PRN PRN Reason: Sedation Ondansetron HCl (Zofran) 4 mg IV Q8H PRN PRN Reason: Nausea And Vomiting Sodium Chloride (Sodium Chloride Flush Syringe 10 Ml) 10 ml IV BID [facility] Last Admin: 02/28/19 22:29 Dose: 10 ml Documented by: Sodium Chloride (Sodium Chloride Flush Syringe 10 Ml) 10 ml IV PRN PRN PRN Reason: LINE FLUSH Physical Examination Vital signs: Vital Signs Temp Pulse Resp BP Pulse Ox 98.9 F 120 H 16 98/49 97 02/13/19 13:55 02/13/19 13:55 02/13/19 13:55 02/13/19 13:55 02/13/19 13:55 General appearance: comatose Eyes: non-icteric ENT: other (ETT in position) Neck: supple, no JVD (broad neck) Ascultation: Bilateral: rhonchi (bilaterally) Cardiovascular: regular rate and rhythm Gastrointestinal: normoactive bowel sounds, non-distended Extremities: other (right lower extremity bandage in place, somewhat cold, distal gangrene toes) other (comatose off sedation intubated) Results - Laboratory Findings CBC and BMP: 03/01/19 05:38 03/01/19 04:07 ABG POC ABG pH 6.895 (7.35-7.45) L 03/01/19 05:03 POC ABG pCO2 43.5 (35-45) 03/01/19 04:45 POC ABG pO2 213 (80-105) H 03/01/19 05:03 POC ABG HCO3 5.8 (22-26 mml/L) 03/01/19 05:03 POC ABG Total CO2 7 (23-27mmol/L) 03/01/19 05:03 POC ABG O2 Sat 99 03/01/19 05:03 PT/INR, D-dimer PT 15.5 Sec. (12.2-14.9) H 02/28/19 18:33 INR 1.16 (0.87-1.13) H 02/28/19 18:33 D-Dimer 1481.17 ng/mlDDU (0-234) H 02/22/19 08:26 Abnormal lab findings: Abnormal Labs 02/13/19 02/13/19 02/13/19 13:55 14:08 14:08 WBC 21.3 H RBC 3.00 L Hgb 8.5 L Hct 26.7 L MCHC RDW 16.4 H Plt Count 528 H Seg Neuts % (Manual) 89.0 H Lymphocytes % (Manual) 4.0 L Monocytes % (Manual) Nucleated RBC % 2.0 H Seg Neutrophils # Man 19.0 H Lymphocytes # (Manual) 0.9 L Monocytes # (Manual) PT INR D-Dimer POC ABG pH POC ABG pCO2 POC ABG pO2 Sodium 129 L Potassium 5.4 H Chloride 91.8 L Carbon Dioxide 17 L BUN 52 H Creatinine 2.5 H Glucose 402 H POC Glucose 389 H Hemoglobin A1c Lactic Acid Calcium Magnesium Total Bilirubin 1.50 H Direct Bilirubin 1.1 H AST 61 H ALT Alkaline Phosphatase 271 H Total Creatine Kinase CK-MB (CK-2) Troponin T NT-Pro-B Natriuret Pep Total Protein Albumin 2.3 L Triglycerides LDL Cholesterol Direct HDL Cholesterol Urine WBC (Auto) Crossmatch 02/13/19 02/13/19 02/13/19 14:15 14:15 14:20 WBC RBC Hgb Hct MCHC RDW Plt Count Seg Neuts % (Manual) Lymphocytes % (Manual) Monocytes % (Manual) Nucleated RBC % Seg Neutrophils # Man Lymphocytes # (Manual) Monocytes # (Manual) PT 15.6 H INR 1.17 H D-Dimer POC ABG pH POC ABG pCO2 POC ABG pO2 Sodium Potassium Chloride Carbon Dioxide BUN Creatinine Glucose POC Glucose Hemoglobin A1c Lactic Acid Calcium Magnesium 1.60 L Total Bilirubin Direct Bilirubin AST ALT Alkaline Phosphatase Total Creatine Kinase 1295 H CK-MB (CK-2) Troponin T 0.072 H NT-Pro-B Natriuret Pep 6167 H Total Protein Albumin Triglycerides 329 H LDL Cholesterol Direct 36 L HDL Cholesterol 17 L Urine WBC (Auto) Crossmatch 02/13/19 02/13/19 02/13/19 15:36 18:15 20:59 WBC RBC Hgb Hct MCHC RDW Plt Count Seg Neuts % (Manual) Lymphocytes % (Manual) Monocytes % (Manual) Nucleated RBC % Seg Neutrophils # Man Lymphocytes # (Manual) Monocytes # (Manual) PT INR D-Dimer POC ABG pH POC ABG pCO2 POC ABG pO2 Sodium Potassium Chloride Carbon Dioxide BUN Creatinine Glucose POC Glucose 293 H 390 H Hemoglobin A1c 9.2 H Lactic Acid Calcium Magnesium Total Bilirubin Direct Bilirubin AST ALT Alkaline Phosphatase Total Creatine Kinase CK-MB (CK-2) Troponin T NT-Pro-B Natriuret Pep Total Protein Albumin Triglycerides LDL Cholesterol Direct HDL Cholesterol Urine WBC (Auto) Crossmatch 02/14/19 02/14/19 02/14/19 07:45 08:15 08:15 WBC 23.2 H RBC 2.89 L Hgb 8.3 L Hct 25.3 L MCHC RDW 16.6 H Plt Count 457 H Seg Neuts % (Manual) 91.0 H Lymphocytes % (Manual) 3.0 L Monocytes % (Manual) Nucleated RBC % Seg Neutrophils # Man 21.1 H Lymphocytes # (Manual) 0.7 L Monocytes # (Manual) 1.2 H PT INR D-Dimer POC ABG pH POC ABG pCO2 POC ABG pO2 Sodium 126 L Potassium 5.3 H Chloride 91.5 L Carbon Dioxide 17 L BUN 65 H Creatinine 2.4 H Glucose 418 H POC Glucose Hemoglobin A1c Lactic Acid Calcium 8.2 L Magnesium 2.90 H Total Bilirubin 1.60 H Direct Bilirubin AST 47 H ALT Alkaline Phosphatase 218 H Total Creatine Kinase CK-MB (CK-2) Troponin T NT-Pro-B Natriuret Pep Total Protein 6.2 L Albumin 2.2 L Triglycerides LDL Cholesterol Direct HDL Cholesterol Urine WBC (Auto) Crossmatch 02/14/19 02/14/19 02/14/19 09:07 09:30 18:53 WBC RBC Hgb Hct MCHC RDW Plt Count Seg Neuts % (Manual) Lymphocytes % (Manual) Monocytes % (Manual) Nucleated RBC % Seg Neutrophils # Man Lymphocytes # (Manual) Monocytes # (Manual) PT INR D-Dimer POC ABG pH POC ABG pCO2 POC ABG pO2 Sodium Potassium Chloride Carbon Dioxide BUN Creatinine Glucose POC Glucose 384 H 353 H Hemoglobin A1c Lactic Acid Calcium Magnesium Total Bilirubin Direct Bilirubin AST ALT Alkaline Phosphatase Total Creatine Kinase CK-MB (CK-2) Troponin T NT-Pro-B Natriuret Pep Total Protein Albumin Triglycerides LDL Cholesterol Direct HDL Cholesterol Urine WBC (Auto) > 182.0 H Crossmatch 02/14/19 02/14/19 02/15/19 21:33 21:40 01:45 WBC RBC Hgb Hct MCHC RDW Plt Count Seg Neuts % (Manual) Lymphocytes % (Manual) Monocytes % (Manual) Nucleated RBC % Seg Neutrophils # Man Lymphocytes # (Manual) Monocytes # (Manual) PT INR D-Dimer POC ABG pH POC ABG pCO2 POC ABG pO2 Sodium Potassium Chloride Carbon Dioxide BUN Creatinine Glucose POC Glucose 404 H 360 H 299 H Hemoglobin A1c Lactic Acid Calcium Magnesium Total Bilirubin Direct Bilirubin AST ALT Alkaline Phosphatase Total Creatine Kinase CK-MB (CK-2) Troponin T NT-Pro-B Natriuret Pep Total Protein Albumin Triglycerides LDL Cholesterol Direct HDL Cholesterol Urine WBC (Auto) Crossmatch 02/15/19 02/15/19 02/15/19 05:32 05:38 11:35 WBC RBC Hgb Hct MCHC RDW Plt Count Seg Neuts % (Manual) Lymphocytes % (Manual) Monocytes % (Manual) Nucleated RBC % Seg Neutrophils # Man Lymphocytes # (Manual) Monocytes # (Manual) PT INR D-Dimer POC ABG pH POC ABG pCO2 POC ABG pO2 Sodium Potassium Chloride Carbon Dioxide BUN Creatinine Glucose POC Glucose 402 H 393 H Hemoglobin A1c Lactic Acid Calcium Magnesium 2.80 H Total Bilirubin Direct Bilirubin AST ALT Alkaline Phosphatase Total Creatine Kinase 448 H CK-MB (CK-2) Troponin T NT-Pro-B Natriuret Pep Total Protein Albumin Triglycerides LDL Cholesterol Direct HDL Cholesterol Urine WBC (Auto) Crossmatch 02/15/19 02/15/19 02/15/19 14:15 14:48 17:21 WBC RBC Hgb Hct MCHC RDW Plt Count Seg Neuts % (Manual) Lymphocytes % (Manual) Monocytes % (Manual) Nucleated RBC % Seg Neutrophils # Man Lymphocytes # (Manual) Monocytes # (Manual) PT INR D-Dimer POC ABG pH POC ABG pCO2 POC ABG pO2 Sodium 128 L Potassium Chloride 92.4 L Carbon Dioxide 21 L BUN 86 H Creatinine 1.9 H Glucose 436 H POC Glucose 386 H 347 H Hemoglobin A1c Lactic Acid Calcium 8.1 L Magnesium Total Bilirubin Direct Bilirubin AST ALT Alkaline Phosphatase Total Creatine Kinase CK-MB (CK-2) Troponin T NT-Pro-B Natriuret Pep Total Protein Albumin Triglycerides LDL Cholesterol Direct HDL Cholesterol Urine WBC (Auto) Crossmatch 02/15/19 02/15/19 02/16/19 22:32 23:51 04:08 WBC RBC Hgb Hct MCHC RDW Plt Count Seg Neuts % (Manual) Lymphocytes % (Manual) Monocytes % (Manual) Nucleated RBC % Seg Neutrophils # Man Lymphocytes # (Manual) Monocytes # (Manual) PT INR D-Dimer POC ABG pH POC ABG pCO2 POC ABG pO2 Sodium Potassium Chloride Carbon Dioxide BUN Creatinine Glucose POC Glucose 272 H 244 H 253 H Hemoglobin A1c Lactic Acid Calcium Magnesium Total Bilirubin Direct Bilirubin AST ALT Alkaline Phosphatase Total Creatine Kinase CK-MB (CK-2) Troponin T NT-Pro-B Natriuret Pep Total Protein Albumin Triglycerides LDL Cholesterol Direct HDL Cholesterol Urine WBC (Auto) Crossmatch 02/16/19 02/16/19 02/16/19 05:29 08:52 11:55 WBC RBC Hgb Hct MCHC RDW Plt Count Seg Neuts % (Manual) Lymphocytes % (Manual) Monocytes % (Manual) Nucleated RBC % Seg Neutrophils # Man Lymphocytes # (Manual) Monocytes # (Manual) PT INR D-Dimer POC ABG pH POC ABG pCO2 POC ABG pO2 Sodium Potassium Chloride Carbon Dioxide BUN Creatinine Glucose POC Glucose 262 H 313 H Hemoglobin A1c Lactic Acid Calcium Magnesium Total Bilirubin Direct Bilirubin AST ALT Alkaline Phosphatase Total Creatine Kinase 200 H CK-MB (CK-2) Troponin T NT-Pro-B Natriuret Pep Total Protein Albumin Triglycerides LDL Cholesterol Direct HDL Cholesterol Urine WBC (Auto) Crossmatch 02/16/19 02/16/19 02/17/19 16:20 22:38 00:15 WBC RBC Hgb Hct MCHC RDW Plt Count Seg Neuts % (Manual) Lymphocytes % (Manual) Monocytes % (Manual) Nucleated RBC % Seg Neutrophils # Man Lymphocytes # (Manual) Monocytes # (Manual) PT INR D-Dimer POC ABG pH POC ABG pCO2 POC ABG pO2 Sodium 131 L Potassium Chloride 95.7 L Carbon Dioxide 21 L BUN 70 H Creatinine 1.3 H Glucose 121 H POC Glucose 146 H 125 H Hemoglobin A1c Lactic Acid Calcium 8.0 L Magnesium Total Bilirubin Direct Bilirubin AST ALT Alkaline Phosphatase Total Creatine Kinase CK-MB (CK-2) Troponin T NT-Pro-B Natriuret Pep Total Protein Albumin Triglycerides LDL Cholesterol Direct HDL Cholesterol Urine WBC (Auto) Crossmatch 02/17/19 02/17/19 02/17/19 03:49 07:32 10:41 WBC 13.3 H RBC 2.92 L Hgb 8.2 L Hct 24.6 L MCHC RDW 16.2 H Plt Count Seg Neuts % (Manual) 85.0 H Lymphocytes % (Manual) 8.0 L Monocytes % (Manual) Nucleated RBC % Seg Neutrophils # Man 11.3 H Lymphocytes # (Manual) 1.1 L Monocytes # (Manual) PT INR D-Dimer POC ABG pH POC ABG pCO2 POC ABG pO2 Sodium 129 L Potassium 5.2 H D Chloride 95.9 L Carbon Dioxide 18 L BUN 69 H Creatinine 1.4 H Glucose POC Glucose 146 H Hemoglobin A1c Lactic Acid Calcium 8.1 L Magnesium Total Bilirubin Direct Bilirubin AST ALT Alkaline Phosphatase Total Creatine Kinase CK-MB (CK-2) Troponin T NT-Pro-B Natriuret Pep Total Protein Albumin Triglycerides LDL Cholesterol Direct HDL Cholesterol Urine WBC (Auto) Crossmatch 02/17/19 02/17/19 02/18/19 11:14 16:18 01:14 WBC 14.6 H RBC 2.53 L Hgb 7.1 L Hct 21.7 L MCHC RDW 16.6 H Plt Count Seg Neuts % (Manual) 72.0 H Lymphocytes % (Manual) 8.0 L Monocytes % (Manual) 11.0 H Nucleated RBC % Seg Neutrophils # Man 10.5 H Lymphocytes # (Manual) Monocytes # (Manual) 1.6 H PT INR D-Dimer POC ABG pH POC ABG pCO2 POC ABG pO2 Sodium Potassium Chloride Carbon Dioxide BUN Creatinine Glucose POC Glucose 219 H 176 H Hemoglobin A1c Lactic Acid Calcium Magnesium Total Bilirubin Direct Bilirubin AST ALT Alkaline Phosphatase Total Creatine Kinase CK-MB (CK-2) Troponin T NT-Pro-B Natriuret Pep Total Protein Albumin Triglycerides LDL Cholesterol Direct HDL Cholesterol Urine WBC (Auto) Crossmatch 02/18/19 02/18/19 02/18/19 04:25 11:35 11:57 WBC RBC Hgb Hct MCHC RDW Plt Count Seg Neuts % (Manual) Lymphocytes % (Manual) Monocytes % (Manual) Nucleated RBC % Seg Neutrophils # Man Lymphocytes # (Manual) Monocytes # (Manual) PT INR D-Dimer POC ABG pH POC ABG pCO2 POC ABG pO2 Sodium 130 L Potassium Chloride 94.7 L Carbon Dioxide BUN 53 H Creatinine Glucose POC Glucose 197 H Hemoglobin A1c Lactic Acid Calcium 7.8 L Magnesium Total Bilirubin Direct Bilirubin AST ALT Alkaline Phosphatase Total Creatine Kinase CK-MB (CK-2) Troponin T NT-Pro-B Natriuret Pep Total Protein Albumin Triglycerides LDL Cholesterol Direct HDL Cholesterol Urine WBC (Auto) Crossmatch See Detail 02/18/19 02/18/19 02/19/19 16:32 21:26 07:01 WBC RBC Hgb Hct MCHC RDW Plt Count Seg Neuts % (Manual) Lymphocytes % (Manual) Monocytes % (Manual) Nucleated RBC % Seg Neutrophils # Man Lymphocytes # (Manual) Monocytes # (Manual) PT INR D-Dimer POC ABG pH POC ABG pCO2 POC ABG pO2 Sodium 135 L Potassium Chloride Carbon Dioxide BUN 36 H Creatinine Glucose POC Glucose 108 H 107 H Hemoglobin A1c Lactic Acid Calcium 7.9 L Magnesium Total Bilirubin Direct Bilirubin AST ALT Alkaline Phosphatase Total Creatine Kinase CK-MB (CK-2) Troponin T NT-Pro-B Natriuret Pep Total Protein Albumin Triglycerides LDL Cholesterol Direct HDL Cholesterol Urine WBC (Auto) Crossmatch 0302/19/19 02/19/19 11:11 13:46 15:19 WBC 12.0 H RBC 2.63 L Hgb 7.5 L Hct 23.3 L MCHC RDW 16.6 H Plt Count Seg Neuts % (Manual) 74.0 H Lymphocytes % (Manual) Monocytes % (Manual) Nucleated RBC % Seg Neutrophils # Man 8.9 H Lymphocytes # (Manual) Monocytes # (Manual) PT INR D-Dimer POC ABG pH POC ABG pCO2 POC ABG pO2 Sodium Potassium Chloride Carbon Dioxide BUN Creatinine Glucose POC Glucose 125 H 181 H Hemoglobin A1c Lactic Acid Calcium Magnesium Total Bilirubin Direct Bilirubin AST ALT Alkaline Phosphatase Total Creatine Kinase CK-MB (CK-2) Troponin T NT-Pro-B Natriuret Pep Total Protein Albumin Triglycerides LDL Cholesterol Direct HDL Cholesterol Urine WBC (Auto) Crossmatch 02/19/19 02/20/19 02/20/19 22:04 02:47 05:25 WBC RBC Hgb Hct MCHC RDW Plt Count Seg Neuts % (Manual) Lymphocytes % (Manual) Monocytes % (Manual) Nucleated RBC % Seg Neutrophils # Man Lymphocytes # (Manual) Monocytes # (Manual) PT INR D-Dimer POC ABG pH POC ABG pCO2 POC ABG pO2 Sodium Potassium Chloride Carbon Dioxide BUN Creatinine Glucose POC Glucose 298 H 136 H 106 H Hemoglobin A1c Lactic Acid Calcium Magnesium Total Bilirubin Direct Bilirubin AST ALT Alkaline Phosphatase Total Creatine Kinase CK-MB (CK-2) Troponin T NT-Pro-B Natriuret Pep Total Protein Albumin Triglycerides LDL Cholesterol Direct HDL Cholesterol Urine WBC (Auto) Crossmatch 02/20/19 02/20/19 02/20/19 06:07 07:55 12:17 WBC RBC Hgb Hct MCHC RDW Plt Count Seg Neuts % (Manual) Lymphocytes % (Manual) Monocytes % (Manual) Nucleated RBC % Seg Neutrophils # Man Lymphocytes # (Manual) Monocytes # (Manual) PT INR D-Dimer POC ABG pH POC ABG pCO2 POC ABG pO2 Sodium Potassium Chloride Carbon Dioxide BUN 23 H Creatinine Glucose 105 H POC Glucose 112 H 195 H Hemoglobin A1c Lactic Acid Calcium 7.4 L Magnesium Total Bilirubin Direct Bilirubin AST ALT Alkaline Phosphatase Total Creatine Kinase CK-MB (CK-2) Troponin T NT-Pro-B Natriuret Pep Total Protein Albumin Triglycerides LDL Cholesterol Direct HDL Cholesterol Urine WBC (Auto) Crossmatch 02/20/19 02/20/1919 16:34 22:23 11:35 WBC RBC Hgb Hct MCHC RDW Plt Count Seg Neuts % (Manual) Lymphocytes % (Manual) Monocytes % (Manual) Nucleated RBC % Seg Neutrophils # Man Lymphocytes # (Manual) Monocytes # (Manual) PT INR D-Dimer POC ABG pH POC ABG pCO2 POC ABG pO2 Sodium Potassium Chloride Carbon Dioxide BUN Creatinine Glucose POC Glucose 117 H 153 H 142 H Hemoglobin A1c Lactic Acid Calcium Magnesium Total Bilirubin Direct Bilirubin AST ALT Alkaline Phosphatase Total Creatine Kinase CK-MB (CK-2) Troponin T NT-Pro-B Natriuret Pep Total Protein Albumin Triglycerides LDL Cholesterol Direct HDL Cholesterol Urine WBC (Auto) Crossmatch 02/21/19 02/21/19 02/21/19 11:38 17:12 19:19 WBC RBC Hgb Hct MCHC RDW Plt Count Seg Neuts % (Manual) Lymphocytes % (Manual) Monocytes % (Manual) Nucleated RBC % Seg Neutrophils # Man Lymphocytes # (Manual) Monocytes # (Manual) PT INR D-Dimer POC ABG pH POC ABG pCO2 POC ABG pO2 Sodium 135 L Potassium Chloride Carbon Dioxide 18 L BUN Creatinine Glucose 129 H POC Glucose 61 L 135 H Hemoglobin A1c Lactic Acid Calcium 7.4 L Magnesium Total Bilirubin Direct Bilirubin AST ALT Alkaline Phosphatase Total Creatine Kinase CK-MB (CK-2) Troponin T NT-Pro-B Natriuret Pep Total Protein Albumin Triglycerides LDL Cholesterol Direct HDL Cholesterol Urine WBC (Auto) Crossmatch 02/21/19 02/22/19 02/22/19 21:24 04:18 04:49 WBC RBC Hgb Hct MCHC RDW Plt Count Seg Neuts % (Manual) Lymphocytes % (Manual) Monocytes % (Manual) Nucleated RBC % Seg Neutrophils # Man Lymphocytes # (Manual) Monocytes # (Manual) PT INR D-Dimer POC ABG pH 7.459 H POC ABG pCO2 POC ABG pO2 Sodium Potassium Chloride Carbon Dioxide BUN Creatinine Glucose POC Glucose 146 H 186 H Hemoglobin A1c Lactic Acid Calcium Magnesium Total Bilirubin Direct Bilirubin AST ALT Alkaline Phosphatase Total Creatine Kinase CK-MB (CK-2) Troponin T NT-Pro-B Natriuret Pep Total Protein Albumin Triglycerides LDL Cholesterol Direct HDL Cholesterol Urine WBC (Auto) Crossmatch 02/22/19 02/22/19 02/22/19 07:56 08:26 08:26 WBC RBC Hgb Hct MCHC RDW Plt Count Seg Neuts % (Manual) Lymphocytes % (Manual) Monocytes % (Manual) Nucleated RBC % Seg Neutrophils # Man Lymphocytes # (Manual) Monocytes # (Manual) PT INR D-Dimer 1481.17 H POC ABG pH POC ABG pCO2 POC ABG pO2 Sodium 133 L Potassium 5.3 H Chloride Carbon Dioxide 19 L BUN Creatinine Glucose 216 H POC Glucose 239 H Hemoglobin A1c Lactic Acid Calcium 7.7 L Magnesium Total Bilirubin Direct Bilirubin AST ALT Alkaline Phosphatase Total Creatine Kinase CK-MB (CK-2) Troponin T NT-Pro-B Natriuret Pep Total Protein Albumin Triglycerides LDL Cholesterol Direct HDL Cholesterol Urine WBC (Auto) Crossmatch 02/22/19 02/22/19 02/22/19 11:59 17:06 22:00 WBC RBC Hgb Hct MCHC RDW Plt Count Seg Neuts % (Manual) Lymphocytes % (Manual) Monocytes % (Manual) Nucleated RBC % Seg Neutrophils # Man Lymphocytes # (Manual) Monocytes # (Manual) PT INR D-Dimer POC ABG pH POC ABG pCO2 POC ABG pO2 Sodium Potassium Chloride Carbon Dioxide BUN Creatinine Glucose POC Glucose 238 H 61 L 174 H Hemoglobin A1c Lactic Acid Calcium Magnesium Total Bilirubin Direct Bilirubin AST ALT Alkaline Phosphatase Total Creatine Kinase CK-MB (CK-2) Troponin T NT-Pro-B Natriuret Pep Total Protein Albumin Triglycerides LDL Cholesterol Direct HDL Cholesterol Urine WBC (Auto) Crossmatch 02/23/19 02/23/19 02/23/19 06:12 07:50 21:43 WBC RBC Hgb Hct MCHC RDW Plt Count Seg Neuts % (Manual) Lymphocytes % (Manual) Monocytes % (Manual) Nucleated RBC % Seg Neutrophils # Man Lymphocytes # (Manual) Monocytes # (Manual) PT INR D-Dimer POC ABG pH POC ABG pCO2 POC ABG pO2 Sodium Potassium Chloride Carbon Dioxide 19 L BUN 18 H Creatinine Glucose 52 L POC Glucose 55 L 107 H Hemoglobin A1c Lactic Acid Calcium 8.3 L Magnesium Total Bilirubin Direct Bilirubin AST ALT Alkaline Phosphatase Total Creatine Kinase CK-MB (CK-2) Troponin T NT-Pro-B Natriuret Pep Total Protein Albumin Triglycerides LDL Cholesterol Direct HDL Cholesterol Urine WBC (Auto) Crossmatch 02/24/19 02/24/19 02/24/19 07:29 11:29 16:05 WBC RBC Hgb Hct MCHC RDW Plt Count Seg Neuts % (Manual) Lymphocytes % (Manual) Monocytes % (Manual) Nucleated RBC % Seg Neutrophils # Man Lymphocytes # (Manual) Monocytes # (Manual) PT INR D-Dimer POC ABG pH POC ABG pCO2 POC ABG pO2 Sodium Potassium Chloride Carbon Dioxide BUN Creatinine Glucose POC Glucose 176 H 253 H 179 H Hemoglobin A1c Lactic Acid Calcium Magnesium Total Bilirubin Direct Bilirubin AST ALT Alkaline Phosphatase Total Creatine Kinase CK-MB (CK-2) Troponin T NT-Pro-B Natriuret Pep Total Protein Albumin Triglycerides LDL Cholesterol Direct HDL Cholesterol Urine WBC (Auto) Crossmatch 02/24/19 02/25/19 02/25/19 21:50 07:57 11:54 WBC RBC Hgb Hct MCHC RDW Plt Count Seg Neuts % (Manual) Lymphocytes % (Manual) Monocytes % (Manual) Nucleated RBC % Seg Neutrophils # Man Lymphocytes # (Manual) Monocytes # (Manual) PT INR D-Dimer POC ABG pH POC ABG pCO2 POC ABG pO2 Sodium Potassium Chloride Carbon Dioxide BUN Creatinine Glucose POC Glucose 200 H 249 H 260 H Hemoglobin A1c Lactic Acid Calcium Magnesium Total Bilirubin Direct Bilirubin AST ALT Alkaline Phosphatase Total Creatine Kinase CK-MB (CK-2) Troponin T NT-Pro-B Natriuret Pep Total Protein Albumin Triglycerides LDL Cholesterol Direct HDL Cholesterol Urine WBC (Auto) Crossmatch 02/25/19 02/25/19 02/26/19 16:34 21:52 07:54 WBC RBC Hgb Hct MCHC RDW Plt Count Seg Neuts % (Manual) Lymphocytes % (Manual) Monocytes % (Manual) Nucleated RBC % Seg Neutrophils # Man Lymphocytes # (Manual) Monocytes # (Manual) PT INR D-Dimer POC ABG pH POC ABG pCO2 POC ABG pO2 Sodium Potassium Chloride Carbon Dioxide BUN Creatinine Glucose POC Glucose 198 H 254 H 213 H Hemoglobin A1c Lactic Acid Calcium Magnesium Total Bilirubin Direct Bilirubin AST ALT Alkaline Phosphatase Total Creatine Kinase CK-MB (CK-2) Troponin T NT-Pro-B Natriuret Pep Total Protein Albumin Triglycerides LDL Cholesterol Direct HDL Cholesterol Urine WBC (Auto) Crossmatch 02/26/19 02/26/19 02/26/19 11:49 16:00 22:00 WBC RBC Hgb Hct MCHC RDW Plt Count Seg Neuts % (Manual) Lymphocytes % (Manual) Monocytes % (Manual) Nucleated RBC % Seg Neutrophils # Man Lymphocytes # (Manual) Monocytes # (Manual) PT INR D-Dimer POC ABG pH POC ABG pCO2 POC ABG pO2 Sodium Potassium Chloride Carbon Dioxide BUN Creatinine Glucose POC Glucose 306 H 183 H 162 H Hemoglobin A1c Lactic Acid Calcium Magnesium Total Bilirubin Direct Bilirubin AST ALT Alkaline Phosphatase Total Creatine Kinase CK-MB (CK-2) Troponin T NT-Pro-B Natriuret Pep Total Protein Albumin Triglycerides LDL Cholesterol Direct HDL Cholesterol Urine WBC (Auto) Crossmatch 02/27/19 02/27/19 02/27/19 07:44 11:11 16:57 WBC RBC Hgb Hct MCHC RDW Plt Count Seg Neuts % (Manual) Lymphocytes % (Manual) Monocytes % (Manual) Nucleated RBC % Seg Neutrophils # Man Lymphocytes # (Manual) Monocytes # (Manual) PT INR D-Dimer POC ABG pH POC ABG pCO2 POC ABG pO2 Sodium Potassium Chloride Carbon Dioxide BUN Creatinine Glucose POC Glucose 171 H 217 H 199 H Hemoglobin A1c Lactic Acid Calcium Magnesium Total Bilirubin Direct Bilirubin AST ALT Alkaline Phosphatase Total Creatine Kinase CK-MB (CK-2) Troponin T NT-Pro-B Natriuret Pep Total Protein Albumin Triglycerides LDL Cholesterol Direct HDL Cholesterol Urine WBC (Auto) Crossmatch 02/27/19 02/28/19 02/28/19 21:48 07:36 11:41 WBC RBC Hgb Hct MCHC RDW Plt Count Seg Neuts % (Manual) Lymphocytes % (Manual) Monocytes % (Manual) Nucleated RBC % Seg Neutrophils # Man Lymphocytes # (Manual) Monocytes # (Manual) PT INR D-Dimer POC ABG pH POC ABG pCO2 POC ABG pO2 Sodium Potassium Chloride Carbon Dioxide BUN Creatinine Glucose POC Glucose 161 H 148 H 244 H Hemoglobin A1c Lactic Acid Calcium Magnesium Total Bilirubin Direct Bilirubin AST ALT Alkaline Phosphatase Total Creatine Kinase CK-MB (CK-2) Troponin T NT-Pro-B Natriuret Pep Total Protein Albumin Triglycerides LDL Cholesterol Direct HDL Cholesterol Urine WBC (Auto) Crossmatch 02/28/19 02/28/19 02/28/19 16:32 16:53 17:28 WBC RBC Hgb Hct MCHC RDW Plt Count Seg Neuts % (Manual) Lymphocytes % (Manual) Monocytes % (Manual) Nucleated RBC % Seg Neutrophils # Man Lymphocytes # (Manual) Monocytes # (Manual) PT INR D-Dimer POC ABG pH POC ABG pCO2 POC ABG pO2 53 L Sodium Potassium Chloride Carbon Dioxide BUN Creatinine Glucose POC Glucose 283 H Hemoglobin A1c Lactic Acid Calcium Magnesium Total Bilirubin Direct Bilirubin AST ALT Alkaline Phosphatase Total Creatine Kinase CK-MB (CK-2) Troponin T 0.119 H* NT-Pro-B Natriuret Pep Total Protein Albumin Triglycerides LDL Cholesterol Direct HDL Cholesterol Urine WBC (Auto) Crossmatch 02/28/19 02/28/19 02/28/19 18:33 18:33 18:33 WBC 11.5 H RBC 2.35 L Hgb 6.5 L Hct 21.2 L MCHC RDW 17.6 H Plt Count 631 H Seg Neuts % (Manual) 87.0 H Lymphocytes % (Manual) 9.0 L Monocytes % (Manual) Nucleated RBC % Seg Neutrophils # Man 10.0 H Lymphocytes # (Manual) 1.0 L Monocytes # (Manual) PT 15.5 H INR 1.16 H D-Dimer POC ABG pH POC ABG pCO2 POC ABG pO2 Sodium Potassium Chloride Carbon Dioxide BUN Creatinine Glucose POC Glucose Hemoglobin A1c Lactic Acid Calcium Magnesium Total Bilirubin Direct Bilirubin AST ALT Alkaline Phosphatase Total Creatine Kinase 165 H CK-MB (CK-2) 4.9 H Troponin T 0.123 H* NT-Pro-B Natriuret Pep Total Protein Albumin Triglycerides LDL Cholesterol Direct HDL Cholesterol Urine WBC (Auto) Crossmatch 02/28/19 02/28/19 02/28/19 18:33 19:55 21:39 WBC RBC Hgb Hct MCHC RDW Plt Count Seg Neuts % (Manual) Lymphocytes % (Manual) Monocytes % (Manual) Nucleated RBC % Seg Neutrophils # Man Lymphocytes # (Manual) Monocytes # (Manual) PT INR D-Dimer POC ABG pH 7.319 L POC ABG pCO2 POC ABG pO2 196 H Sodium 136 L Potassium 5.6 H Chloride Carbon Dioxide 14 L BUN 21 H Creatinine 1.4 H Glucose 274 H POC Glucose 277 H Hemoglobin A1c Lactic Acid Calcium 8.3 L Magnesium Total Bilirubin Direct Bilirubin AST ALT Alkaline Phosphatase 165 H Total Creatine Kinase CK-MB (CK-2) Troponin T NT-Pro-B Natriuret Pep Total Protein Albumin 2.7 L Triglycerides LDL Cholesterol Direct HDL Cholesterol Urine WBC (Auto) Crossmatch 02/28/19 02/28/19 02/28/19 22:46 22:47 22:59 WBC RBC Hgb Hct MCHC RDW Plt Count Seg Neuts % (Manual) Lymphocytes % (Manual) Monocytes % (Manual) Nucleated RBC % Seg Neutrophils # Man Lymphocytes # (Manual) Monocytes # (Manual) PT INR D-Dimer POC ABG pH 7.068 L POC ABG pCO2 34.7 L POC ABG pO2 280 H Sodium Potassium Chloride Carbon Dioxide BUN Creatinine Glucose POC Glucose Hemoglobin A1c Lactic Acid 16.50 H* Calcium Magnesium Total Bilirubin Direct Bilirubin AST ALT Alkaline Phosphatase Total Creatine Kinase CK-MB (CK-2) Troponin T 0.595 H* D NT-Pro-B Natriuret Pep Total Protein Albumin Triglycerides LDL Cholesterol Direct HDL Cholesterol Urine WBC (Auto) Crossmatch 02/28/19 03/01/19 03/01/19 22:59 00:47 00:48 WBC RBC Hgb Hct MCHC RDW Plt Count Seg Neuts % (Manual) Lymphocytes % (Manual) Monocytes % (Manual) Nucleated RBC % Seg Neutrophils # Man Lymphocytes # (Manual) Monocytes # (Manual) PT INR D-Dimer POC ABG pH POC ABG pCO2 POC ABG pO2 Sodium Potassium 7.0 H* D 7.3 H* Chloride 97.5 L Carbon Dioxide 10 L 7 L* BUN 22 H 23 H Creatinine 1.7 H 2.0 H Glucose 223 H 222 H POC Glucose Hemoglobin A1c Lactic Acid 19.80 H* Calcium 8.1 L Magnesium Total Bilirubin Direct Bilirubin AST 107 H 223 H ALT Alkaline Phosphatase 208 H 209 H Total Creatine Kinase CK-MB (CK-2) Troponin T NT-Pro-B Natriuret Pep Total Protein 5.9 L Albumin 2.7 L 2.5 L Triglycerides LDL Cholesterol Direct HDL Cholesterol Urine WBC (Auto) Crossmatch 03/01/19 03/01/19 03/01/19 04:07 04:07 04:07 WBC RBC Hgb Hct MCHC RDW Plt Count Seg Neuts % (Manual) Lymphocytes % (Manual) Monocytes % (Manual) Nucleated RBC % Seg Neutrophils # Man Lymphocytes # (Manual) Monocytes # (Manual) PT INR D-Dimer POC ABG pH POC ABG pCO2 POC ABG pO2 Sodium Potassium 6.1 H* Chloride Carbon Dioxide 6 L* BUN 22 H Creatinine 2.0 H Glucose 269 H POC Glucose Hemoglobin A1c Lactic Acid 22.60 H* Calcium 6.9 L Magnesium Total Bilirubin Direct Bilirubin AST 1971 H ALT 686 H Alkaline Phosphatase 193 H Total Creatine Kinase CK-MB (CK-2) Troponin T 2.910 H* D NT-Pro-B Natriuret Pep Total Protein 4.6 L D Albumin 2.0 L Triglycerides LDL Cholesterol Direct HDL Cholesterol Urine WBC (Auto) Crossmatch 03/01/19 03/01/19 03/01/19 04:45 05:03 05:38 WBC RBC 1.78 L Hgb 5.0 L* Hct 17.4 L* MCHC 29 L RDW 18.3 H Plt Count Seg Neuts % (Manual) 78.0 H Lymphocytes % (Manual) Monocytes % (Manual) Nucleated RBC % 2.0 H Seg Neutrophils # Man Lymphocytes # (Manual) Monocytes # (Manual) PT INR D-Dimer POC ABG pH 6.806 L 6.895 L POC ABG pCO2 POC ABG pO2 54 L 213 H Sodium Potassium Chloride Carbon Dioxide BUN Creatinine Glucose POC Glucose Hemoglobin A1c Lactic Acid Calcium Magnesium Total Bilirubin Direct Bilirubin AST ALT Alkaline Phosphatase Total Creatine Kinase CK-MB (CK-2) Troponin T NT-Pro-B Natriuret Pep Total Protein Albumin Triglycerides LDL Cholesterol Direct HDL Cholesterol Urine WBC (Auto) Crossmatch 03/01/19 03/01/19 03/01/19 05:38 06:03 07:29 WBC RBC Hgb Hct MCHC RDW Plt Count Seg Neuts % (Manual) Lymphocytes % (Manual) Monocytes % (Manual) Nucleated RBC % Seg Neutrophils # Man Lymphocytes # (Manual) Monocytes # (Manual) PT INR D-Dimer POC ABG pH POC ABG pCO2 POC ABG pO2 Sodium Potassium Chloride Carbon Dioxide BUN Creatinine Glucose POC Glucose 310 H Hemoglobin A1c Lactic Acid 23.40 H* 24.70 H* Calcium Magnesium Total Bilirubin Direct Bilirubin AST ALT Alkaline Phosphatase Total Creatine Kinase CK-MB (CK-2) Troponin T NT-Pro-B Natriuret Pep Total Protein Albumin Triglycerides LDL Cholesterol Direct HDL Cholesterol Urine WBC (Auto) Crossmatch 03/01/19 07:30 WBC RBC Hgb Hct MCHC RDW Plt Count Seg Neuts % (Manual) Lymphocytes % (Manual) Monocytes % (Manual) Nucleated RBC % Seg Neutrophils # Man Lymphocytes # (Manual) Monocytes # (Manual) PT INR D-Dimer POC ABG pH POC ABG pCO2 POC ABG pO2 Sodium Potassium Chloride Carbon Dioxide BUN Creatinine Glucose POC Glucose Hemoglobin A1c Lactic Acid Calcium Magnesium Total Bilirubin Direct Bilirubin AST ALT Alkaline Phosphatase Total Creatine Kinase CK-MB (CK-2) Troponin T NT-Pro-B Natriuret Pep Total Protein Albumin Triglycerides LDL Cholesterol Direct HDL Cholesterol Urine WBC (Auto) Crossmatch See Detail Assessment and Plan Impression: Shock possibly hypovolemic plus minus septic Acute respiratory failure, mechanical ventilation support Physical history suggestive pulmonary edema versus acute lung injury Severe metabolic acidosis, lactic Sepsis source unknown. Previously with UTI Primary episode of dyspnea on the , ventilation perfusion scan negative EKOS /arterial Thrombolysis to RLE for RLE ischemia, and R leg 4 compartment fasciotomy Recommendations Serial BP monitoring Keep MAP > 65 Monitor UO, keep > 30 cc/ hr Serial lactate levels q 6-8 hr x 4 I'll did ABGs, supportive bicarbonate depending on acidosis Status Cardiology consult and consider emergency echocardiogram If unclear if patient is bleeding, we'll recommend discontinue heparin drip KUB, amylase PRBC if Hgb < 7 Consider Lasix when necessary, depending on blood pressure status, currently on pressors monitor for any bleeding Prognosis is grave. No family members available for case discussion. Discussed with ICU staff, hospitalist in detail Critical care time was 45 minutes of [id number] evaluation and coordination of care
--- NOTE | 2019-03-01 09:30 | Progress Note ---
Assessment and Plan 58F who was sent from rehab facility for confusion and lethargy recently admitted and had ekos, arterial Thrombolysis to RLE for RLE ischemia, and R leg 4 compartment fasciotomy on 01/[address] Jeong Vascular duplex shows Right iliac arterial stenosis CT head; no acute findings CXR no acute findings Labs; UA > 182 WBC Micro; urine and blood growing E. coli sens to current abx 02/28/19:Started having shortness for breath and chest pain. Transfered to ICU. Commenced on treatment with bronchodilator and cardiac meds . [employer]iler [employer] and clinical nurse occupational medicine consulted and contacted. CXR showed airspace process and plural effusion. 03/01/19: Code blue called. Pt Resuscitated and connected to the mechanical vent. Diagnosis NSTEMI Shock, Septic versus cardiogenic Acute hypoxemic respiratory failure intubated and on MV Anemia - no evidence of eternal beeding Acute renal failure Hyperkalemia Sepsis, ecoli Bactermia and Ecoli UTI PNA? anemia, likely due to chronic disease CT abdomand and pelvis for abdominal distension HHNK, Type 2 DM, A1c 9 - improved Hyponatremia, likely pseudohyponatremia of hyperglycemia Hyperkalemia Acute renal failure - likely ATN - Nephrology consult PAD hx of RLE ischemia, sp thrombolysis, revascularization and fascitomy dry gangrene, R second toe Vascular surgeon following Rhabdomylsis, non traumatic acute metabolic encephalopathy Plan Mecahnical ventilation management per pulmonology Continue with aspirin, nitroglycerin, beta blockers. Hold ASA, heparin becuse of anemia On pressor. titrate as tolerated Blood and urine cx. commence imperical antibiotic. ID consult Insulin D50 and insulin for hyperkalemia. Will avoid Kayxalate Consulted and discussed with clinical nurse occupational medicine regarding elevated cardiac enzymes yesterday. Input appreciated Transfuse 2 units of packed red blood cell. Nephrology consulted SSI CT scan of the chest to rule out any PE vascular consult appreciated, sp debridement of R leg wound on 02/20, necrotic tissue removed, need to fup as outpatient for amputation of R second toe DVT ppx- chemical Dispo: Per hospital course. Continue with present management Discussed with pt's sister Subjective Date of service: 03/01/19 Principal diagnosis: PVD with gangrene right toe, status post fasciotomies, NSTEMI, sepsis Interval history: Patient transferred from med/surg floor to ICU yesterday for Shortness of breath and chest pain. Code Clarke called early this morning. Patient resuscitated according to ACLS protocol. Intubated and connected to mechanical ventilation. Objective - Exam Narrative Exam: Constitutional: Intubated and supported by mechanical ventilation Head: Normocephalic atraumatic Eyes: dilated. Nose: No enlarged turbinates, no septal deviation. Mouth: ET tube in place. Neck: Supple no thyromegaly. No bruit. No JVD Heart: Regular rate and rhythm, S1-S2 normal. No rubs murmurs or gallop Lungs: Clear to auscultation bilaterally. no rales or rhonchi Abdomen: Soft, nontender. Bowel sound are present. Extremities: right lower extrimity wound. Neuro: Intubated. Skin: No rashes or hyperpigmented spots Hematological: No petechia or subcutanous hemorrhages. Lymphatic: No generalized lymphadenopathy Psychiatry: Intubated - Constitutional Vitals: Vital Signs - 12hr 02/28/19 02/28/19 02/28/19 21:30 21:45 22:00 Temperature Pulse Rate 96 H 99 H 99 H Pulse Rate [ Anterior Bilateral Throughout] Respiratory 20 20 20 Rate Respiratory Rate [Anterior Bilateral Throughout] Blood Pressure 87/50 96/57 106/64 O2 Sat by Pulse 97 Oximetry 02/28/19 02/28/19 02/28/19 22:15 22:30 22:45 Temperature Pulse Rate 98 H 97 H 97 H Pulse Rate [ Anterior Bilateral Throughout] Respiratory 20 20 20 Rate Respiratory Rate [Anterior Bilateral Throughout] Blood Pressure 103/60 106/58 107/55 O2 Sat by Pulse 100 100 100 Oximetry 02/28/19 02/28/19 02/28/19 23:00 23:08 23:15 Temperature Pulse Rate 96 H 95 H 94 H Pulse Rate [ Anterior Bilateral Throughout] Respiratory 21 20 20 Rate Respiratory Rate [Anterior Bilateral Throughout] Blood Pressure 109/60 108/58 O2 Sat by Pulse 100 100 99 Oximetry 02/28/19 02/28/19 02/28/19 23:17 23:30 23:39 Temperature 97.5 F L Pulse Rate 92 H 90 Pulse Rate [ Anterior Bilateral Throughout] Respiratory 20 Rate Respiratory Rate [Anterior Bilateral Throughout] Blood Pressure 99/61 99/61 O2 Sat by Pulse 99 98 Oximetry 02/28/19 03/01/19 03/01/19 23:45 00:00 00:15 Temperature Pulse Rate 90 87 81 Pulse Rate [ Anterior Bilateral Throughout] Respiratory 20 20 21 Rate Respiratory Rate [Anterior Bilateral Throughout] Blood Pressure 95/57 89/46 82/50 O2 Sat by Pulse 97 96 97 Oximetry 03/01/19 03/01/19 03/01/19 00:30 00:45 01:00 Temperature Pulse Rate 71 72 69 Pulse Rate [ Anterior Bilateral Throughout] Respiratory 20 20 20 Rate Respiratory Rate [Anterior Bilateral Throughout] Blood Pressure 82/50 78/32 74/34 O2 Sat by Pulse 97 97 97 Oximetry 03/01/19 03/01/19 03/01/19 01:15 01:30 01:46 Temperature Pulse Rate 65 47 L 35 L Pulse Rate [ Anterior Bilateral Throughout] Respiratory 20 20 20 Rate Respiratory Rate [Anterior Bilateral Throughout] Blood Pressure 73/30 56/30 O2 Sat by Pulse 97 99 100 Oximetry 03/01/19 03/01/19 03/01/19 02:00 02:15 02:30 Temperature Pulse Rate 98 H 80 86 Pulse Rate [ Anterior Bilateral Throughout] Respiratory 38 H 21 20 Rate Respiratory Rate [Anterior Bilateral Throughout] Blood Pressure 105/65 76/38 88/43 O2 Sat by Pulse 96 94 97 Oximetry 03/01/19 03/01/19 03/01/19 02:45 03:00 03:15 Temperature Pulse Rate 72 58 L 76 Pulse Rate [ Anterior Bilateral Throughout] Respiratory 20 20 20 Rate Respiratory Rate [Anterior Bilateral Throughout] Blood Pressure 82/38 78/33 87/39 O2 Sat by Pulse 99 83 L Oximetry 03/01/19 03/01/19 03/01/19 03:30 03:45 04:00 Temperature Pulse Rate 90 91 H 89 Pulse Rate [ 86 Anterior Bilateral Throughout] Respiratory 24 20 20 Rate Respiratory 20 Rate [Anterior Bilateral Throughout] Blood Pressure 119/37 117/42 O2 Sat by Pulse 90 30 L Oximetry 03/01/19 03/01/19 03/01/19 04:16 04:30 04:45 Temperature Pulse Rate 87 87 85 Pulse Rate [ Anterior Bilateral Throughout] Respiratory 24 35 H 24 Rate Respiratory Rate [Anterior Bilateral Throughout] Blood Pressure 119/36 118/37 O2 Sat by Pulse 82 L 51 L Oximetry 03/01/19 03/01/19 03/01/19 05:00 05:16 05:30 Temperature Pulse Rate 83 83 91 H Pulse Rate [ Anterior Bilateral Throughout] Respiratory 20 21 23 Rate Respiratory Rate [Anterior Bilateral Throughout] Blood Pressure 121/36 O2 Sat by Pulse 87 78 L 100 Oximetry 03/01/19 03/01/19 03/01/19 05:45 06:00 06:15 Temperature Pulse Rate 86 85 84 Pulse Rate [ Anterior Bilateral Throughout] Respiratory 26 H 37 H 36 H Rate Respiratory Rate [Anterior Bilateral Throughout] Blood Pressure 117/42 121/41 O2 Sat by Pulse 97 100 Oximetry 03/01/19 03/01/19 03/01/19 06:30 06:46 07:00 Temperature Pulse Rate 84 83 82 Pulse Rate [ Anterior Bilateral Throughout] Respiratory 28 H 25 H 23 Rate Respiratory Rate [Anterior Bilateral Throughout] Blood Pressure 111/38 107/56 O2 Sat by Pulse 76 L 67 L Oximetry 03/01/19 03/01/19 03/01/19 07:15 07:30 08:36 Temperature Pulse Rate 82 83 87 Pulse Rate [ 88 Anterior Bilateral Throughout] Respiratory 25 H 33 H Rate Respiratory 34 H Rate [Anterior Bilateral Throughout] Blood Pressure 107/51 103/51 123/63 O2 Sat by Pulse 100 100 100 Oximetry 03/01/19 03/01/19 08:43 09:18 Temperature 96.1 F L Pulse Rate 91 H Pulse Rate [ 87 Anterior Bilateral Throughout] Respiratory 28 H Rate Respiratory 33 H Rate [Anterior Bilateral Throughout] Blood Pressure 121/69 O2 Sat by Pulse 100 Oximetry - Labs CBC & Chem 7: 03/01/19 05:38 03/01/19 11:38 Labs: Abnormal lab results 02/28/19 02/28/19 02/28/19 Range/Units 07:36 11:41 16:32 WBC (4.5-11.0) K/mm3 RBC (3.65-5.03) M/mm3 Hgb (10.1-14.3) gm/dl Hct (30.3-42.9) % MCHC (30-34) % RDW (13.2-15.2) % Plt Count (140-440) K/mm3 Seg Neuts % (Manual) (40.0-70.0) % Lymphocytes % (Manual) (13.4-35.0) % Nucleated RBC % (0.0-0.9) % Seg Neutrophils # Man (1.8-7.7) K/mm3 Lymphocytes # (Manual) (1.2-5.4) K/mm3 PT (12.2-14.9) Sec. INR (0.87-1.13) POC ABG pH (7.35-7.45) POC ABG pCO2 (35-45) POC ABG pO2 (80-105) Sodium (137-145) mmol/L Potassium (3.6-5.0) mmol/L Chloride (98-107) mmol/L Carbon Dioxide (22-30) mmol/L BUN (7-17) mg/dL Creatinine (0.7-1.2) mg/dL Glucose (65-100) mg/dL POC Glucose 148 H 244 H 283 H (70-105) Lactic Acid (0.7-2.0) mmol/L Calcium (8.4-10.2) mg/dL AST (5-40) units/L ALT (7-56) units/L Alkaline Phosphatase (35-129) units/L Total Creatine Kinase (30-135) units/L CK-MB (CK-2) (0.0-4.0) ng/mL Troponin T (0.00-0.029) ng/mL Total Protein (6.3-8.2) g/dL Albumin (3.9-5) g/dL Crossmatch 02/28/19 02/28/19 02/28/19 Range/Units 16:53 17:28 18:33 WBC 11.5 H (4.5-11.0) K/mm3 RBC 2.35 L (3.65-5.03) M/mm3 Hgb 6.5 L (10.1-14.3) gm/dl Hct 21.2 L (30.3-42.9) % MCHC (30-34) % RDW 17.6 H (13.2-15.2) % Plt Count 631 H (140-440) K/mm3 Seg Neuts % (Manual) 87.0 H (40.0-70.0) % Lymphocytes % (Manual) 9.0 L (13.4-35.0) % Nucleated RBC % (0.0-0.9) % Seg Neutrophils # Man 10.0 H (1.8-7.7) K/mm3 Lymphocytes # (Manual) 1.0 L (1.2-5.4) K/mm3 PT (12.2-14.9) Sec. INR (0.87-1.13) POC ABG pH (7.35-7.45) POC ABG pCO2 (35-45) POC ABG pO2 53 L (80-105) Sodium (137-145) mmol/L Potassium (3.6-5.0) mmol/L Chloride (98-107) mmol/L Carbon Dioxide (22-30) mmol/L BUN (7-17) mg/dL Creatinine (0.7-1.2) mg/dL Glucose (65-100) mg/dL POC Glucose (70-105) Lactic Acid (0.7-2.0) mmol/L Calcium (8.4-10.2) mg/dL AST (5-40) units/L ALT (7-56) units/L Alkaline Phosphatase (35-129) units/L Total Creatine Kinase (30-135) units/L CK-MB (CK-2) (0.0-4.0) ng/mL Troponin T 0.119 H* (0.00-0.029) ng/mL Total Protein (6.3-8.2) g/dL Albumin (3.9-5) g/dL Crossmatch 02/28/19 02/28/19 02/28/19 Range/Units 18:33 18:33 18:33 WBC (4.5-11.0) K/mm3 RBC (3.65-5.03) M/mm3 Hgb (10.1-14.3) gm/dl Hct (30.3-42.9) % MCHC (30-34) % RDW (13.2-15.2) % Plt Count (140-440) K/mm3 Seg Neuts % (Manual) (40.0-70.0) % Lymphocytes % (Manual) (13.4-35.0) % Nucleated RBC % (0.0-0.9) % Seg Neutrophils # Man (1.8-7.7) K/mm3 Lymphocytes # (Manual) (1.2-5.4) K/mm3 PT 15.5 H (12.2-14.9) Sec. INR 1.16 H (0.87-1.13) POC ABG pH (7.35-7.45) POC ABG pCO2 (35-45) POC ABG pO2 (80-105) Sodium 136 L (137-145) mmol/L Potassium 5.6 H (3.6-5.0) mmol/L Chloride (98-107) mmol/L Carbon Dioxide 14 L (22-30) mmol/L BUN 21 H (7-17) mg/dL Creatinine 1.4 H (0.7-1.2) mg/dL Glucose 274 H (65-100) mg/dL POC Glucose (70-105) Lactic Acid (0.7-2.0) mmol/L Calcium 8.3 L (8.4-10.2) mg/dL AST (5-40) units/L ALT (7-56) units/L Alkaline Phosphatase 165 H (35-129) units/L Total Creatine Kinase 165 H (30-135) units/L CK-MB (CK-2) 4.9 H (0.0-4.0) ng/mL Troponin T 0.123 H* (0.00-0.029) ng/mL Total Protein (6.3-8.2) g/dL Albumin 2.7 L (3.9-5) g/dL Crossmatch 02/28/19 02/28/19 02/28/19 Range/Units 19:55 21:39 22:46 WBC (4.5-11.0) K/mm3 RBC (3.65-5.03) M/mm3 Hgb (10.1-14.3) gm/dl Hct (30.3-42.9) % MCHC (30-34) % RDW (13.2-15.2) % Plt Count (140-440) K/mm3 Seg Neuts % (Manual) (40.0-70.0) % Lymphocytes % (Manual) (13.4-35.0) % Nucleated RBC % (0.0-0.9) % Seg Neutrophils # Man (1.8-7.7) K/mm3 Lymphocytes # (Manual) (1.2-5.4) K/mm3 PT (12.2-14.9) Sec. INR (0.87-1.13) POC ABG pH 7.319 L 7.068 L (7.35-7.45) POC ABG pCO2 34.7 L (35-45) POC ABG pO2 196 H 280 H (80-105) Sodium (137-145) mmol/L Potassium (3.6-5.0) mmol/L Chloride (98-107) mmol/L Carbon Dioxide (22-30) mmol/L BUN (7-17) mg/dL Creatinine (0.7-1.2) mg/dL Glucose (65-100) mg/dL POC Glucose 277 H (70-105) Lactic Acid (0.7-2.0) mmol/L Calcium (8.4-10.2) mg/dL AST (5-40) units/L ALT (7-56) units/L Alkaline Phosphatase (35-129) units/L Total Creatine Kinase (30-135) units/L CK-MB (CK-2) (0.0-4.0) ng/mL Troponin T (0.00-0.029) ng/mL Total Protein (6.3-8.2) g/dL Albumin (3.9-5) g/dL Crossmatch 02/28/19 02/28/19 02/28/19 Range/Units 22:47 22:59 22:59 WBC (4.5-11.0) K/mm3 RBC (3.65-5.03) M/mm3 Hgb (10.1-14.3) gm/dl Hct (30.3-42.9) % MCHC (30-34) % RDW (13.2-15.2) % Plt Count (140-440) K/mm3 Seg Neuts % (Manual) (40.0-70.0) % Lymphocytes % (Manual) (13.4-35.0) % Nucleated RBC % (0.0-0.9) % Seg Neutrophils # Man (1.8-7.7) K/mm3 Lymphocytes # (Manual) (1.2-5.4) K/mm3 PT (12.2-14.9) Sec. INR (0.87-1.13) POC ABG pH (7.35-7.45) POC ABG pCO2 (35-45) POC ABG pO2 (80-105) Sodium (137-145) mmol/L Potassium 7.0 H* D (3.6-5.0) mmol/L Chloride (98-107) mmol/L Carbon Dioxide 10 L (22-30) mmol/L BUN 22 H (7-17) mg/dL Creatinine 1.7 H (0.7-1.2) mg/dL Glucose 223 H (65-100) mg/dL POC Glucose (70-105) Lactic Acid 16.50 H* (0.7-2.0) mmol/L Calcium (8.4-10.2) mg/dL AST 107 H (5-40) units/L ALT (7-56) units/L Alkaline Phosphatase 208 H (35-129) units/L Total Creatine Kinase (30-135) units/L CK-MB (CK-2) (0.0-4.0) ng/mL Troponin T 0.595 H* D (0.00-0.029) ng/mL Total Protein (6.3-8.2) g/dL Albumin 2.7 L (3.9-5) g/dL Crossmatch 03/01/19 03/01/19 03/01/19 Range/Units 00:47 00:48 04:07 WBC (4.5-11.0) K/mm3 RBC (3.65-5.03) M/mm3 Hgb (10.1-14.3) gm/dl Hct (30.3-42.9) % MCHC (30-34) % RDW (13.2-15.2) % Plt Count (140-440) K/mm3 Seg Neuts % (Manual) (40.0-70.0) % Lymphocytes % (Manual) (13.4-35.0) % Nucleated RBC % (0.0-0.9) % Seg Neutrophils # Man (1.8-7.7) K/mm3 Lymphocytes # (Manual) (1.2-5.4) K/mm3 PT (12.2-14.9) Sec. INR (0.87-1.13) POC ABG pH (7.35-7.45) POC ABG pCO2 (35-45) POC ABG pO2 (80-105) Sodium (137-145) mmol/L Potassium 7.3 H* 6.1 H* (3.6-5.0) mmol/L Chloride 97.5 L (98-107) mmol/L Carbon Dioxide 7 L* 6 L* (22-30) mmol/L BUN 23 H 22 H (7-17) mg/dL Creatinine 2.0 H 2.0 H (0.7-1.2) mg/dL Glucose 222 H 269 H (65-100) mg/dL POC Glucose (70-105) Lactic Acid 19.80 H* (0.7-2.0) mmol/L Calcium 8.1 L 6.9 L (8.4-10.2) mg/dL AST 223 H 1971 H (5-40) units/L ALT 686 H (7-56) units/L Alkaline Phosphatase 209 H 193 H (35-129) units/L Total Creatine Kinase (30-135) units/L CK-MB (CK-2) (0.0-4.0) ng/mL Troponin T (0.00-0.029) ng/mL Total Protein 5.9 L 4.6 L D (6.3-8.2) g/dL Albumin 2.5 L 2.0 L (3.9-5) g/dL Crossmatch 03/01/19 03/01/19 03/01/19 Range/Units 04:07 04:07 04:45 WBC (4.5-11.0) K/mm3 RBC (3.65-5.03) M/mm3 Hgb (10.1-14.3) gm/dl Hct (30.3-42.9) % MCHC (30-34) % RDW (13.2-15.2) % Plt Count (140-440) K/mm3 Seg Neuts % (Manual) (40.0-70.0) % Lymphocytes % (Manual) (13.4-35.0) % Nucleated RBC % (0.0-0.9) % Seg Neutrophils # Man (1.8-7.7) K/mm3 Lymphocytes # (Manual) (1.2-5.4) K/mm3 PT (12.2-14.9) Sec. INR (0.87-1.13) POC ABG pH 6.806 L (7.35-7.45) POC ABG pCO2 (35-45) POC ABG pO2 54 L (80-105) Sodium (137-145) mmol/L Potassium (3.6-5.0) mmol/L Chloride (98-107) mmol/L Carbon Dioxide (22-30) mmol/L BUN (7-17) mg/dL Creatinine (0.7-1.2) mg/dL Glucose (65-100) mg/dL POC Glucose (70-105) Lactic Acid 22.60 H* (0.7-2.0) mmol/L Calcium (8.4-10.2) mg/dL AST (5-40) units/L ALT (7-56) units/L Alkaline Phosphatase (35-129) units/L Total Creatine Kinase (30-135) units/L CK-MB (CK-2) (0.0-4.0) ng/mL Troponin T 2.910 H* D (0.00-0.029) ng/mL Total Protein (6.3-8.2) g/dL Albumin (3.9-5) g/dL Crossmatch 03/01/19 03/01/19 03/01/19 Range/Units 05:03 05:38 05:38 WBC (4.5-11.0) K/mm3 RBC 1.78 L (3.65-5.03) M/mm3 Hgb 5.0 L* (10.1-14.3) gm/dl Hct 17.4 L* (30.3-42.9) % MCHC 29 L (30-34) % RDW 18.3 H (13.2-15.2) % Plt Count (140-440) K/mm3 Seg Neuts % (Manual) 78.0 H (40.0-70.0) % Lymphocytes % (Manual) (13.4-35.0) % Nucleated RBC % 2.0 H (0.0-0.9) % Seg Neutrophils # Man (1.8-7.7) K/mm3 Lymphocytes # (Manual) (1.2-5.4) K/mm3 PT (12.2-14.9) Sec. INR (0.87-1.13) POC ABG pH 6.895 L (7.35-7.45) POC ABG pCO2 (35-45) POC ABG pO2 213 H (80-105) Sodium (137-145) mmol/L Potassium (3.6-5.0) mmol/L Chloride (98-107) mmol/L Carbon Dioxide (22-30) mmol/L BUN (7-17) mg/dL Creatinine (0.7-1.2) mg/dL Glucose (65-100) mg/dL POC Glucose (70-105) Lactic Acid 23.40 H* (0.7-2.0) mmol/L Calcium (8.4-10.2) mg/dL AST (5-40) units/L ALT (7-56) units/L Alkaline Phosphatase (35-129) units/L Total Creatine Kinase (30-135) units/L CK-MB (CK-2) (0.0-4.0) ng/mL Troponin T (0.00-0.029) ng/mL Total Protein (6.3-8.2) g/dL Albumin (3.9-5) g/dL Crossmatch 03/01/19 03/01/19 03/01/19 Range/Units 06:03 07:29 07:30 WBC (4.5-11.0) K/mm3 RBC (3.65-5.03) M/mm3 Hgb (10.1-14.3) gm/dl Hct (30.3-42.9) % MCHC (30-34) % RDW (13.2-15.2) % Plt Count (140-440) K/mm3 Seg Neuts % (Manual) (40.0-70.0) % Lymphocytes % (Manual) (13.4-35.0) % Nucleated RBC % (0.0-0.9) % Seg Neutrophils # Man (1.8-7.7) K/mm3 Lymphocytes # (Manual) (1.2-5.4) K/mm3 PT (12.2-14.9) Sec. INR (0.87-1.13) POC ABG pH (7.35-7.45) POC ABG pCO2 (35-45) POC ABG pO2 (80-105) Sodium (137-145) mmol/L Potassium (3.6-5.0) mmol/L Chloride (98-107) mmol/L Carbon Dioxide (22-30) mmol/L BUN (7-17) mg/dL Creatinine (0.7-1.2) mg/dL Glucose (65-100) mg/dL POC Glucose 310 H (70-105) Lactic Acid 24.70 H* (0.7-2.0) mmol/L Calcium (8.4-10.2) mg/dL AST (5-40) units/L ALT (7-56) units/L Alkaline Phosphatase (35-129) units/L Total Creatine Kinase (30-135) units/L CK-MB (CK-2) (0.0-4.0) ng/mL Troponin T (0.00-0.029) ng/mL Total Protein (6.3-8.2) g/dL Albumin (3.9-5) g/dL Crossmatch See Detail
[2019-03-01] MEDS ORDERED: LOPRESSOR PO SCH (10:00)
[2019-03-01] MEDS: PEPCID IV SCH (10:42)
[2019-03-01] MEDS: SODIUM CHLORIDE FLUSH SYRINGE 10 ML IV SCH ×2 (10:48→10:56)
[2019-03-01] MEDS ORDERED: VANCOMYCIN/NS 1 GM/250 ML 1 GM/250 ML BAG IV SCH (11:00)
--- NOTE | 2019-03-01 11:49 | XRay Report ---
AP ABDOMEN: HISTORY: Abdominal distention. The abdominal gas pattern is unremarkable. No masses or organomegaly is identified and there is no gross evidence of free air or fluid. No significant soft tissue calcifications are noted. Previous lumbar fusion changes are noted. Mild cardiomegaly and small right pleural effusion is identified at the lung bases. IMPRESSION: Unremarkable abdomen. Mild cardiomegaly and small right pleural effusion.
[2019-03-01] MEDS ORDERED: D50W (25GM) Syringe IV ONE (13:00)
[2019-03-01] MEDS ORDERED: HumuLIN R IV ONE (13:00)
[2019-03-01] MEDS: ASPIRIN PO SCH (13:07)
[2019-03-01] MEDS: LANTUS SUB-Q SCH (13:08)
--- NOTE | 2019-03-01 13:44 | Consultation ---
History of Present Illness Consult date: 03/01/19 Requesting physician: NATALIE GLEZ Consult reason: chest pain, elevated troponin History of present illness: The pt is a 58 female who is intubated and nonresponsive on evaluation and thus HPI obtained per the chart. Pt was sent from rehab facility on 02/13/2019 for confusion and lethargy, recently admitted and had EKOS, arterial thrombolysis to RLE for RLE ischemia, and R leg 4 compartment fasciotomy on 01/[address] Sheri de la vega. Yesterday, she started having shortness for breath and was transfered to ICU and subsequently intubated. Following intubation, she developed asystole and CODE blue called. ROSC was eventually obtained. Pt noted to have severe anemia, lactic acidosis, hyperkalemia, ARF, elevated LFTs, hyp othermia, RLE gangrene, CXR with pulm edema. Cardiology has been consulted for elevated trop. Echo done 02/14/2019 showed EF 55-60%, mild LVH, mild with peak gradient 24 and mean 11, mild AR. 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 denies: smoking, alcohol abuse, prescription drug abuse, IV drug use Medications and Allergies Allergies Allergy/AdvReac Type Severity Reaction Status Date / Time No Known Allergies Allergy Verified 01/28/19 21:26 Home Medications Medication Instructions Recorded Confirmed Last Taken Type Aspirin [Low Dose Aspirin EC] 81 mg PO DAILY #30 tablet. 02/04/19 02/16/19 02/14/19 10:00 Rx Clopidogrel [Plavix] 75 mg PO QDAY #30 tablet 02/04/19 02/16/19 02/14/19 10:00 Rx Lispro Insulin [Humalog] 0 unit SUB-Q ACHS units 02/20/19 Unknown Rx Lispro Insulin [Humalog] 5 unit SUB-Q AC 30 Days units 02/20/19 Unknown Rx Multivitamin with Iron [Tab-A-Lupe 1 each PO DAILY #30 tablet 02/20/19 Unknown Rx with Iron] Valsartan [Diovan] 160 mg PO BID #60 tablet 02/20/19 Unknown Rx oxyCODONE /ACETAMINOPHEN [Percocet 1 tab PO Q6H PRN #20 tablet 02/20/19 Unknown Rx 5/325 mg] Insulin Glargine [Lantus VIAL] 22 units SUB-Q DAILY #1 vial 02/25/19 Unknown Rx Insulin Lispro [HumaLOG VIAL] 0 units SQ AC #1 vial 02/25/19 Unknown Rx Active Meds: Active Medications Acetaminophen (Tylenol) 650 mg PO Q4H PRN PRN Reason: Pain MILD(1-3)/Fever >100.5/MARTÍNEZ Albuterol (Proventil) 2.5 mg IH Q6HRT PRN PRN Reason: Shortness Of Breath Last Admin: 02/28/19 16:08 Dose: 2.5 mg Documented by: Albuterol/Ipratropium (Duoneb *Not For Prn Use*) 1 ampul IH Q6HRT [facility] Last Admin: 03/01/19 13:38 Dose: 1 ampul Documented by: Aspirin (Aspirin) 325 mg PO QDAY [facility] Last Admin: 03/01/19 13:07 Dose: Not Given Documented by: Benzocaine/Menthol (Cepacol X Strength) 1 each MM Q2H PRN PRN Reason: Sore Throat Last Admin: 02/28/19 13:21 Dose: 1 each Documented by: Dextrose (D50w (25gm) Syringe) 50 ml IV PRN PRN PRN Reason: Hypoglycemia Famotidine (Pepcid) 20 mg IV DAILY [facility] Last Admin: 03/01/19 10:42 Dose: 20 mg Documented by: Fentanyl (Sublimaze) 50 mcg IV Q10MIN PRN PRN Reason: ANALGESIA Hydralazine HCl (Apresoline) 10 mg IV Q4HR PRN PRN Reason: BP >160/100 Hydrophilic Ointment (Vaseline Lip Therapy) 1 applic TP Q2HR PRN PRN Reason: Dry Lips Heparin Sodium/Sodium Chloride (Heparin/ 0.45% Nacl-25,000 Unit/500 Ml) 25,000 unit in 500 mls @ 20 mls/hr IV TITRATE [facility]; Protocol Last Admin: 02/28/19 18:43 Dose: 1,000 units/hr, 20 mls/hr Documented by: Fentanyl Citrate (Fentanyl Drip Premix) 2,000 mcg in 100 mls @ 5.665 mls/hr IV TITR [facility]; Protocol Last Titration: 03/01/19 00:46 Dose: 0 mcg/kg/hr, 0 mls/hr Documented by: Midazolam HCl 100 mg/ Sodium (Chloride) 100 mls @ 2 mls/hr IV TITR [facility]; Protocol Last Titration: 03/01/19 00:47 Dose: 0 mg/hr, 0 mls/hr Documented by: Sodium Bicarbonate 75 meq/ (Dextrose) 1,075 mls @ 250 mls/hr IV DIRECT [facility] Last Admin: 03/01/19 09:45 Dose: 250 mls/hr Documented by: Norepinephrine (Levophed Drip 4 Mg/Ns 250 Ml) 4 mg in 250 mls @ 7.5 mls/hr IV TITR [facility]; Protocol Last Admin: 03/01/19 12:40 Dose: 24 mcg/min, 90 mls/hr Documented by: Dopamine HCl/Dextrose (Intropin Drip 800 Mg/D5w 250 Ml) 800 mg in 250 mls @ 4.249 mls/hr IV TITR [facility]; Protocol Last Admin: 03/01/19 07:26 Dose: 20 mcg/kg/min, 42.488 mls/hr Documented by: Vancomycin HCl (Vancomycin/Ns 1 Gm/250 Ml) 1 gm in 250 mls @ 250 mls/hr IV ONCE ONE Stop: 03/01/19 13:59 Last Admin: 03/01/19 13:32 Dose: 250 mls/hr Documented by: Piperacillin Sod/Tazobactam Sod (Zosyn/Ns 2.25 Gm/50ml) 2.25 gm in 50 mls @ 100 mls/hr IV Q6HR [facility] Insulin Glargine (Lantus) 22 units SUB-Q DAILY [facility] Last Admin: 03/01/19 13:08 Dose: Not Given Documented by: Insulin Human Lispro (Humalog) 0 unit SUB-Q Q6HR [facility]; Protocol Last Admin: 03/01/19 12:20 Dose: 8 unit Documented by: Methylprednisolone Sodium Succinate (Solu-Medrol) 80 mg IV Q8HR [facility] Last Admin: 03/01/19 13:39 Dose: 80 mg Documented by: Midazolam HCl (Versed) 2 mg IV Q10MIN PRN PRN Reason: Sedation Ondansetron HCl (Zofran) 4 mg IV Q8H PRN PRN Reason: Nausea And Vomiting Sodium Bicarbonate (Sodium Bicarbonate) 100 meq IV ONCE ONE Stop: 03/01/19 14:01 Last Admin: 03/01/19 13:32 Dose: 100 meq Documented by: Sodium Chloride (Sodium Chloride Flush Syringe 10 Ml) 10 ml IV BID [facility] Last Admin: 03/01/19 10:56 Dose: 10 ml Documented by: Sodium Chloride (Sodium Chloride Flush Syringe 10 Ml) 10 ml IV PRN PRN PRN Reason: LINE FLUSH Review of Systems ROS unobtainable: due to endotracheal tube, due to mental status Physical Examination Vital Signs Temp Pulse Resp BP Pulse Ox 98.9 F 120 H 16 98/49 97 02/13/19 13:55 02/13/19 13:55 02/13/19 13:55 02/13/19 13:55 02/13/19 13:55 General appearance: other (intubated, nonresponsive, off sedation ) Cardiac: Positive: Reg Rate and Rhythm, S1/S2 Lungs: Positive: Decreased Breath Sounds, Ventilated Respirations Neuro: Positive: Other (intubated, nonresponsive) Skin: Positive: Other (RLE gangrene). Negative: Rash Extremities: Present: +2 Edema (RLE > LLE) Results 03/01/19 05:38 03/01/19 11:38 Cardiac Enzymes 02/28/19 02/28/19 02/28/19 Range/Units 18:33 18:33 22:59 AST 30 107 H (5-40) units/L CK-MB (CK-2) 4.9 H (0.0-4.0) ng/mL 03/01/19 03/01/19 Range/Units 00:48 04:07 AST 223 H 1971 H (5-40) units/L CK-MB (CK-2) (0.0-4.0) ng/mL Coagulation 02/28/19 Range/Units 18:33 PT 15.5 H (12.2-14.9) Sec. INR 1.16 H (0.87-1.13) APTT 29.5 (24.2-36.6) Sec. CBC 02/28/19 03/01/19 Range/Units 18:33 05:38 WBC 11.5 H 8.1 (4.5-11.0) K/mm3 RBC 2.35 L 1.78 L (3.65-5.03) M/mm3 Hgb 6.5 L 5.0 L* (10.1-14.3) gm/dl Hct 21.2 L 17.4 L* (30.3-42.9) % Plt Count 631 H 358 (140-440) K/mm3 Comprehensive Metabolic Panel 02/28/19 02/28/19 03/01/19 Range/Units 18:33 22:59 00:48 Sodium 136 L 139 138 (137-145) mmol/L Potassium 5.6 H 7.0 H* D 7.3 H* (3.6-5.0) mmol/L Chloride 100.7 98.7 97.5 L (98-107) mmol/L Carbon Dioxide 14 L 10 L 7 L* (22-30) mmol/L BUN 21 H 22 H 23 H (7-17) mg/dL Creatinine 1.4 H 1.7 H 2.0 H (0.7-1.2) mg/dL Glucose 274 H 223 H 222 H (65-100) mg/dL Calcium 8.3 L 8.4 8.1 L (8.4-10.2) mg/dL AST 30 107 H 223 H (5-40) units/L ALT 11 24 52 (7-56) units/L Alkaline Phosphatase 165 H 208 H 209 H (35-129) units/L Total Protein 6.3 6.3 5.9 L (6.3-8.2) g/dL Albumin 2.7 L 2.7 L 2.5 L (3.9-5) g/dL 03/01/19 03/01/19 Range/Units 04:07 11:38 Sodium 143 (137-145) mmol/L Potassium 6.1 H* 6.3 H* (3.6-5.0) mmol/L Chloride 101.1 (98-107) mmol/L Carbon Dioxide 6 L* (22-30) mmol/L BUN 22 H (7-17) mg/dL Creatinine 2.0 H (0.7-1.2) mg/dL Glucose 269 H (65-100) mg/dL Calcium 6.9 L (8.4-10.2) mg/dL AST 1971 H (5-40) units/L ALT 686 H (7-56) units/L Alkaline Phosphatase 193 H (35-129) units/L Total Protein 4.6 L D (6.3-8.2) g/dL Albumin 2.0 L (3.9-5) g/dL - Imaging and Cardiology Echo: report reviewed (02/14/2019 showed EF 55-60%, mild LVH, mild with peak gradient 24 and mean 11, mild AR. ) EKG: report reviewed, image reviewed EKG interpretations - Telemetry EKG Rhythm: Sinus Rhythm - EKG Sinus rhythms and dysrhythmias: sinus rhythm Assessment and Plan Cont supportive measures. Cont to trend Yonatan and repeat ECG in AM. CE elevation a ppears c/w NSTEMI type II at this time, ECG with no acute changes. D/c heparin gtt in setting of severe anemia. F/u limited echo post-cardiac arrest. Pt with pulm edema and ? pleural effusions on CXR. Cautious diuresis as BPs and renal function permit. PRBC tx per primary. Overall guarded prognosis. The patient has been seen in conjunction with Dr. Bhakta who agrees with the assessment and plan of care. - Patient Problems (1) Cardiopulmonary arrest with successful resuscitation Current Visit: Yes Status: Acute (2) Acute heart failure with preserved ejection fraction Current Visit: Yes Status: Acute (3) NSTEMI (non-ST elevated myocardial infarction) Current Visit: Yes Status: Acute Plan to address problem: type 2 (4) Acute respiratory failure Current Visit: Yes Status: Acute (5) GERALDINE (acute kidney injury) Current Visit: Yes Status: Acute (6) Hyperkalemia Current Visit: Yes Status: Acute (7) Sepsis Current Visit: Yes Status: Suspected Qualifiers: Sepsis type: sepsis due to unspecified organism Qualified Code(s): A41.9 - Sepsis, unspecified organism (8) Severe anemia Current Visit: Yes Status: Acute (9) Peripheral vascular disease Current Visit: Yes Status: Chronic (10) 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
[2019-03-01] MEDS ORDERED: SODIUM BICARBONATE IV ONE (14:00)
[2019-03-01] MEDS: ZOSYN/NS 2.25 GM/50ML 2.25 GM/50 ML BAG IV SCH ×2 (14:02→18:57)
[2019-03-01] MEDS ORDERED: LASIX IV ONE (14:30)
--- NOTE | 2019-03-01 19:57 | Progress Note ---
Assessment and Plan Cultures: 02/13/2019 blood culture: E. coli, 4 out of 4 bottles 02/14/2019 urine culture: E. coli 02/16/2019 Blood culture: no growth 02/22/2019 Blood culture: no growth A/P: 58-year-old female with hypertension, diabetes mellitus type 2, peripheral vascular disease who was recently hospitalized from vascular surgery clinic due to right second toe gangrene. She underwent thrombolysis of the right lower extremity and underwent a stent placement. She developed compartment syndrome requiring fasciotomy on 01/29/2019 and then was discharged to a rehabilitation facility, admitted with: 1) Cardiac arrest and shock: severe lactic acidosis, unclear etiology, possibly hemorrhagic given drop in Hb v/s septic v/s cardiogenic. Critically ill, on 2 pressors, ventilator. Will restart antibiotics. 2) E.coli bacteremia: urinary source. Completed antibiotics (Cefazolin) several days ago with repeat cultures negative. 3) UTI: U/a shows Pyuria, WBC > 182 with large LE. Urine culture grew E.coli. Completed abx. 4) Acute kidney failure: Urine output dropping. Critically ill. . 5) Peripheral vascular disease: Vascular surgery following. Right second toe ischemia and gangrene. 6) Diabetes mellitus type 2, uncontrolled. Recs: blood cultures x 2 start IV Cefepime and Vancomycin (renally adjusted) monitor renal function and vancomycin levels closely consider CT chest, abdomen and pelvis (without IV contrast) when feasible, patient critically ill prognosis is poor, discussed with several family members at bedside MD [facility] C: [phone] O: [phone] F: [phone] Subjective Date of service: 03/01/19 Principal diagnosis: PVD with gangrene right toe, status post fasciotomies, NSTEMI, sepsis Interval history: Patient was last seen by us on 02/18/2019 for E.coli bacteremia of urinary source. ID reconsulted today due to patient developing cardiac arrest requiring ACLS and now transferred to ICU with intubation, pressors. No fever. Hb dropped to 5. Objective - Exam Narrative Exam: Physical Exam: Constitutional: intubated Head, Ears, Nose: Normocephalic, atraumatic. External ears, nose normal Eyes: Conjunctivae/corneas clear. No icterus. No ptosis. Neck: Supple, no meningeal signs Oral: intubated Cardiovascular: S1, S2 normal. Respiratory: Good air entry, clear to auscultation bilaterally GI: distended, bowel sounds hypoactive. No peritoneal signs Musculoskeletal: Right second toe with blackish discoloration, right calf with dressing Skin: No rash or abscess Hem/Lymphatic: No palpable cervical or supraclavicular nodes. No lymphangitis Psych: no agitation Neurological: intubated, on vent - Constitutional Vitals: Vital Signs Temp Pulse Resp BP Pulse Ox 98.8 F 112 H 33 H 129/69 100 03/01/19 17:48 03/01/19 17:48 03/01/19 17:48 03/01/19 17:48 03/01/19 17:48 Temperature -Last 24 Hours Temperature 98.8 F Temperature 98.8 F Temperature 99.4 F Temperature 99.4 F Temperature 100.6 F Temperature 100.6 F Temperature 98.9 F Temperature 98.9 F Temperature 100.6 F Temperature 98.4 F Temperature 98.3 F Temperature 97.4 F Temperature 97.4 F Temperature 96 F Temperature 96 F Temperature 96 F Temperature 96.1 F Temperature 96.1 F Temperature 96.1 F Temperature 97.5 F - Labs CBC & Chem 7: 03/01/19 05:38 03/01/19 11:38 Labs: Abnormal lab results 02/28/19 02/28/19 02/28/19 Range/Units 17:28 18:33 19:55 RBC (3.65-5.03) M/mm3 Hgb (10.1-14.3) gm/dl Hct (30.3-42.9) % MCHC (30-34) % RDW (13.2-15.2) % Seg Neuts % (Manual) 87.0 H (40.0-70.0) % Lymphocytes % (Manual) 9.0 L (13.4-35.0) % Nucleated RBC % (0.0-0.9) % Seg Neutrophils # Man 10.0 H (1.8-7.7) K/mm3 Lymphocytes # (Manual) 1.0 L (1.2-5.4) K/mm3 POC ABG pH 7.319 L (7.35-7.45) POC ABG pCO2 (35-45) POC ABG pO2 53 L 196 H (80-105) Potassium (3.6-5.0) mmol/L Chloride (98-107) mmol/L Carbon Dioxide (22-30) mmol/L BUN (7-17) mg/dL Creatinine (0.7-1.2) mg/dL Glucose (65-100) mg/dL POC Glucose (70-105) Lactic Acid (0.7-2.0) mmol/L Calcium (8.4-10.2) mg/dL AST (5-40) units/L ALT (7-56) units/L Alkaline Phosphatase (35-129) units/L Troponin T (0.00-0.029) ng/mL Total Protein (6.3-8.2) g/dL Albumin (3.9-5) g/dL Crossmatch 02/28/19 02/28/19 02/28/19 Range/Units 21:39 22:46 22:47 RBC (3.65-5.03) M/mm3 Hgb (10.1-14.3) gm/dl Hct (30.3-42.9) % MCHC (30-34) % RDW (13.2-15.2) % Seg Neuts % (Manual) (40.0-70.0) % Lymphocytes % (Manual) (13.4-35.0) % Nucleated RBC % (0.0-0.9) % Seg Neutrophils # Man (1.8-7.7) K/mm3 Lymphocytes # (Manual) (1.2-5.4) K/mm3 POC ABG pH 7.068 L (7.35-7.45) POC ABG pCO2 34.7 L (35-45) POC ABG pO2 280 H (80-105) Potassium (3.6-5.0) mmol/L Chloride (98-107) mmol/L Carbon Dioxide (22-30) mmol/L BUN (7-17) mg/dL Creatinine (0.7-1.2) mg/dL Glucose (65-100) mg/dL POC Glucose 277 H (70-105) Lactic Acid (0.7-2.0) mmol/L Calcium (8.4-10.2) mg/dL AST (5-40) units/L ALT (7-56) units/L Alkaline Phosphatase (35-129) units/L Troponin T 0.595 H* D (0.00-0.029) ng/mL Total Protein (6.3-8.2) g/dL Albumin (3.9-5) g/dL Crossmatch 02/28/19 02/28/19 03/01/19 Range/Units 22:59 22:59 00:47 RBC (3.65-5.03) M/mm3 Hgb (10.1-14.3) gm/dl Hct (30.3-42.9) % MCHC (30-34) % RDW (13.2-15.2) % Seg Neuts % (Manual) (40.0-70.0) % Lymphocytes % (Manual) (13.4-35.0) % Nucleated RBC % (0.0-0.9) % Seg Neutrophils # Man (1.8-7.7) K/mm3 Lymphocytes # (Manual) (1.2-5.4) K/mm3 POC ABG pH (7.35-7.45) POC ABG pCO2 (35-45) POC ABG pO2 (80-105) Potassium 7.0 H* D (3.6-5.0) mmol/L Chloride (98-107) mmol/L Carbon Dioxide 10 L (22-30) mmol/L BUN 22 H (7-17) mg/dL Creatinine 1.7 H (0.7-1.2) mg/dL Glucose 223 H (65-100) mg/dL POC Glucose (70-105) Lactic Acid 16.50 H* 19.80 H* (0.7-2.0) mmol/L Calcium (8.4-10.2) mg/dL AST 107 H (5-40) units/L ALT (7-56) units/L Alkaline Phosphatase 208 H (35-129) units/L Troponin T (0.00-0.029) ng/mL Total Protein (6.3-8.2) g/dL Albumin 2.7 L (3.9-5) g/dL Crossmatch 03/01/19 03/01/19 03/01/19 Range/Units 00:48 04:07 04:07 RBC (3.65-5.03) M/mm3 Hgb (10.1-14.3) gm/dl Hct (30.3-42.9) % MCHC (30-34) % RDW (13.2-15.2) % Seg Neuts % (Manual) (40.0-70.0) % Lymphocytes % (Manual) (13.4-35.0) % Nucleated RBC % (0.0-0.9) % Seg Neutrophils # Man (1.8-7.7) K/mm3 Lymphocytes # (Manual) (1.2-5.4) K/mm3 POC ABG pH (7.35-7.45) POC ABG pCO2 (35-45) POC ABG pO2 (80-105) Potassium 7.3 H* 6.1 H* (3.6-5.0) mmol/L Chloride 97.5 L (98-107) mmol/L Carbon Dioxide 7 L* 6 L* (22-30) mmol/L BUN 23 H 22 H (7-17) mg/dL Creatinine 2.0 H 2.0 H (0.7-1.2) mg/dL Glucose 222 H 269 H (65-100) mg/dL POC Glucose (70-105) Lactic Acid (0.7-2.0) mmol/L Calcium 8.1 L 6.9 L (8.4-10.2) mg/dL AST 223 H 1971 H (5-40) units/L ALT 686 H (7-56) units/L Alkaline Phosphatase 209 H 193 H (35-129) units/L Troponin T 2.910 H* D (0.00-0.029) ng/mL Total Protein 5.9 L 4.6 L D (6.3-8.2) g/dL Albumin 2.5 L 2.0 L (3.9-5) g/dL Crossmatch 03/01/19 03/01/19 03/01/19 Range/Units 04:07 04:45 05:03 RBC (3.65-5.03) M/mm3 Hgb (10.1-14.3) gm/dl Hct (30.3-42.9) % MCHC (30-34) % RDW (13.2-15.2) % Seg Neuts % (Manual) (40.0-70.0) % Lymphocytes % (Manual) (13.4-35.0) % Nucleated RBC % (0.0-0.9) % Seg Neutrophils # Man (1.8-7.7) K/mm3 Lymphocytes # (Manual) (1.2-5.4) K/mm3 POC ABG pH 6.806 L 6.895 L (7.35-7.45) POC ABG pCO2 (35-45) POC ABG pO2 54 L 213 H (80-105) Potassium (3.6-5.0) mmol/L Chloride (98-107) mmol/L Carbon Dioxide (22-30) mmol/L BUN (7-17) mg/dL Creatinine (0.7-1.2) mg/dL Glucose (65-100) mg/dL POC Glucose (70-105) Lactic Acid 22.60 H* (0.7-2.0) mmol/L Calcium (8.4-10.2) mg/dL AST (5-40) units/L ALT (7-56) units/L Alkaline Phosphatase (35-129) units/L Troponin T (0.00-0.029) ng/mL Total Protein (6.3-8.2) g/dL Albumin (3.9-5) g/dL Crossmatch 03/01/19 03/01/19 03/01/19 Range/Units 05:38 05:38 06:03 RBC 1.78 L (3.65-5.03) M/mm3 Hgb 5.0 L* (10.1-14.3) gm/dl Hct 17.4 L* (30.3-42.9) % MCHC 29 L (30-34) % RDW 18.3 H (13.2-15.2) % Seg Neuts % (Manual) 78.0 H (40.0-70.0) % Lymphocytes % (Manual) (13.4-35.0) % Nucleated RBC % 2.0 H (0.0-0.9) % Seg Neutrophils # Man (1.8-7.7) K/mm3 Lymphocytes # (Manual) (1.2-5.4) K/mm3 POC ABG pH (7.35-7.45) POC ABG pCO2 (35-45) POC ABG pO2 (80-105) Potassium (3.6-5.0) mmol/L Chloride (98-107) mmol/L Carbon Dioxide (22-30) mmol/L BUN (7-17) mg/dL Creatinine (0.7-1.2) mg/dL Glucose (65-100) mg/dL POC Glucose 310 H (70-105) Lactic Acid 23.40 H* (0.7-2.0) mmol/L Calcium (8.4-10.2) mg/dL AST (5-40) units/L ALT (7-56) units/L Alkaline Phosphatase (35-129) units/L Troponin T (0.00-0.029) ng/mL Total Protein (6.3-8.2) g/dL Albumin (3.9-5) g/dL Crossmatch 03/01/19 03/01/19 03/01/19 Range/Units 07:29 07:30 11:38 RBC (3.65-5.03) M/mm3 Hgb (10.1-14.3) gm/dl Hct (30.3-42.9) % MCHC (30-34) % RDW (13.2-15.2) % Seg Neuts % (Manual) (40.0-70.0) % Lymphocytes % (Manual) (13.4-35.0) % Nucleated RBC % (0.0-0.9) % Seg Neutrophils # Man (1.8-7.7) K/mm3 Lymphocytes # (Manual) (1.2-5.4) K/mm3 POC ABG pH (7.35-7.45) POC ABG pCO2 (35-45) POC ABG pO2 (80-105) Potassium 6.3 H* (3.6-5.0) mmol/L Chloride (98-107) mmol/L Carbon Dioxide (22-30) mmol/L BUN (7-17) mg/dL Creatinine (0.7-1.2) mg/dL Glucose (65-100) mg/dL POC Glucose (70-105) Lactic Acid 24.70 H* (0.7-2.0) mmol/L Calcium (8.4-10.2) mg/dL AST (5-40) units/L ALT (7-56) units/L Alkaline Phosphatase (35-129) units/L Troponin T (0.00-0.029) ng/mL Total Protein (6.3-8.2) g/dL Albumin (3.9-5) g/dL Crossmatch See Detail 03/01/19 03/01/19 03/01/19 Range/Units 12:02 12:30 17:34 RBC (3.65-5.03) M/mm3 Hgb (10.1-14.3) gm/dl Hct (30.3-42.9) % MCHC (30-34) % RDW (13.2-15.2) % Seg Neuts % (Manual) (40.0-70.0) % Lymphocytes % (Manual) (13.4-35.0) % Nucleated RBC % (0.0-0.9) % Seg Neutrophils # Man (1.8-7.7) K/mm3 Lymphocytes # (Manual) (1.2-5.4) K/mm3 POC ABG pH 6.960 L 7.101 L (7.35-7.45) POC ABG pCO2 32.7 L (35-45) POC ABG pO2 117 H 109 H (80-105) Potassium (3.6-5.0) mmol/L Chloride (98-107) mmol/L Carbon Dioxide (22-30) mmol/L BUN (7-17) mg/dL Creatinine (0.7-1.2) mg/dL Glucose (65-100) mg/dL POC Glucose 326 H (70-105) Lactic Acid (0.7-2.0) mmol/L Calcium (8.4-10.2) mg/dL AST (5-40) units/L ALT (7-56) units/L Alkaline Phosphatase (35-129) units/L Troponin T (0.00-0.029) ng/mL Total Protein (6.3-8.2) g/dL Albumin (3.9-5) g/dL Crossmatch
[2019-03-01] MEDS ORDERED: VANCOMYCIN PHARMACY TO DOSE IV SCH (20:00)
[2019-03-01] MEDS ORDERED: VANCOMYCIN 2,000 MG in NACL 0.9% 500 ML 500 ML IV SCH (20:00)
[2019-03-01 20:59] LABS: Hematocrit 28.2 % (30.3-42.9); Hemoglobin 8.9 gm/dl (10.1-14.3)
[2019-03-01] MEDS ORDERED: VANCOMYCIN 2,000 MG in NACL 0.9% 500 ML 500 ML IV ONE (21:00)
--- NOTE | 2019-03-01 21:41 | Event Note ---
Date: 03/01/19 Had a meeting with seven family members in the room explaining the patient status and management plan at about 6.30 pm today. All questions were answered to thier satisfaction.
[2019-03-01] MEDS: MAXIPIME/NS 2 GM/100 ML 2 GM/100 ML BAG IV SCH (21:56)
[2019-03-01] MEDS ORDERED: ZOSYN/NS 3.375GM/50ML 3.375 GM/50 ML BAG IV SCH (22:00)
[2019-03-01] MEDS ORDERED: HumaLOG SUB-Q ONE (22:50)
[2019-03-01 23:09] LABS: Calcium 6.2 mg/dL (8.4-10.2)
[2019-03-02] MEDS: ZOSYN/NS 2.25 GM/50ML 2.25 GM/50 ML BAG IV SCH ×2 (00:38→06:28)
[2019-03-02] MEDS: LEVOPHED DRIP 4 MG/NS 250 ML 4 MG/250 ML BAG IV SCH ×4 (01:00→22:15)
[2019-03-02] MEDS: HumaLOG SUB-Q SCH ×2 (02:18→08:00)
[2019-03-02] MEDS: DUONEB *Not for PRN Use IH SCH ×4 (02:43→19:35)
--- NOTE | 2019-03-02 02:58 | XRay Report ---
PROCEDURE: XR CHEST 1V AP TECHNIQUE: A portable upright view the chest was obtained. HISTORY: follow up respiratory failure COMPARISONS: 03/01/2019 FINDINGS: The heart is mildly enlarged. The lungs remain congested. There is bilateral airspace disease with sl ight improvement since the prior study. The ET tube is in good position above the bharathi. The skeleta l structures are unchanged. IMPRESSION: Stable pulmonary congestion with slight improvement in bilateral airspace disease.. This document is electronically signed by Ayad Hope MD., March 02 2019 02:56:35 AM ET
[2019-03-02] MEDS ORDERED: INTROPIN DRIP 800 MG/D5W 250 ML IV ONE (03:40)
[2019-03-02] MEDS ORDERED: ADRENALIN ONE (03:40)
[2019-03-02] MEDS ORDERED: CALCIUM CHLORIDE IV ONE (03:40)
--- NOTE | 2019-03-02 03:52 | Cat Scan Report ---
PROCEDURE: CT HEAD/BRAIN WO CON TECHNIQUE: Routine axial imaging was obtained of the brain without IV contrast. HISTORY: AMS COMPARISONS: 02/13/2019 FINDINGS: Since the previous study there are now low attenuation areas in both cerebellar hemispheres as well a s within the left occipital lobe compatible with acute to subacute nonhemorrhagic infarcts. There is considerable streak artifact in this area as well. The ventricular system is appropriate in size. The re are no extra-axial fluid collections. The visualized sinuses revealed dependent secretions in the maxillary and sphenoid sinuses. There is also stable patchy fluid in the mastoid air cells bilaterall y. 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 Considerable streak artifact compromising the posterior fossa. No evidence of hemorrhage or hydrocephalus. Dependent secretions in both maxillary and sphenoid sinuses. MRI of the brain is recommended for better overall evaluation. This document is electronically signed by Ayad Hope MD., March 02 2019 03:50:26 AM ET
--- NOTE | 2019-03-02 04:04 | Cat Scan Report ---
PROCEDURE: CT ABDOMEN PELVIS WO CON TECHNIQUE: Routine axial imaging was obtained of the abdomen and pelvis without oral or IV contrast. Sagittal and coronal reconstructions reviewed. HISTORY: abdominal distension COMPARISONS: Abdominal film 03/01/2019 FINDINGS: The lung bases reveal consolidation in both lower lobes with small effusions. The liver and biliary tree appear normal. The gallbladder is normal in size and contains dense bile. Stones cannot be excluded. The pancreas, spleen and adrenal glands appear normal. The kidneys show no evidence of stones or hydronephrosis. The bowel loops are normal in caliber. The appendix is not enl arged. There is no evidence of ascites or masses. In the pelvis there are coarse calcifications in th e uterus compatible with involuted fibroids. The bladder appears normal. There is no evidence of bryanna opathy. There is calcification of the abdominal aorta. The skeletal structures reveal multilevel disc degeneration lumbar spine with postsurgical changes in the lower lumbar spine. There is also subcuta neous edema along the abdominal wall. Underlying anasarca cannot be excluded. IMPRESSION: Consolidation in both lower lobes with effusions. Whether this is on the basis of pulmonary edema tung fiordaliza pneumonia is uncertain. Dense bile in the gallbladder. Stones cannot be excluded. No evidence of bowel obstruction ileus or ascites. Coarse calcifications in the uterus compatible with involuted fibroids. Postsurgical changes involving the right hip and lumbar spine. Subcutaneous edema along the abdominal wall suggesting underlying anasarca. This document is electronically signed by Ayad Hope MD., March 02 2019 04:02:35 AM ET
--- NOTE | 2019-03-02 04:05 | Emergency Department Report ---
Blank Doc - Documentation Documentation: I responded to CODE blue overhead alert. Upon arrival, patient receiving chest compressions, ventilated with BVM. I directed resuscitation ACLS, after epinephrine, one shock, calcium, sodium bicarbonate. ROSC achieved. Initial PEA rhythm then ventricular fibrillation, eventually sinus tachycardia with ROSC. Total time 25 minutes. Recommended repeat potassium level.
[2019-03-02] MEDS: SODIUM BICARBONATE 75 MEQ in D5W 1,000 ML IV SCH (04:22)
--- NOTE | 2019-03-02 04:52 | XRay Report ---
PROCEDURE: XR ABDOMEN 1V AP TECHNIQUE: An AP view of the abdomen was obtained. HISTORY: feeding tube placement COMPARISONS: None FINDINGS: The tip of the feeding tube is in the antral region of the stomach. The bowel gas pattern otherwise i s nondiagnostic. Free air is not seen. The skeletal structures reveal hardware in the lower lumbar sp ine from previous multilevel fusion. IMPRESSION: Tip of the feeding tube in the antral region of the stomach.. This document is electronically signed by Ayad Hope MD., March 02 2019 04:50:13 AM ET
[2019-03-02 04:59] LABS: Hematocrit 22.8 % (30.3-42.9); Mean Corpuscular HGB Conc 31 % (30-34); Mean Corpuscular Volume 92 fl (79-97); Platelet Count 233 K/mm3 (140-440); Red Blood Count 2.47 M/mm3 (3.65-5.03); Red Cell Distribution Width 18.4 % (13.2-15.2)
[2019-03-02 05:12] LABS: Albumin 1.7 g/dL (3.9-5); Calcium 6.1 mg/dL (8.4-10.2)
[2019-03-02 05:45] LABS: Band Neutrophils # (Manual) 0.7 K/mm3; Basophils % (Manual) 0 % (0.0-1.8); Eosinophils % (Manual) 0 % (0.0-4.3); Monocytes % (Manual) 0 % (0.0-7.3); Total Cells Counted 100
[2019-03-02 05:46] LABS: Anisocytosis 1+; Platelet Clumps Few; Platelet Estimate Cons
[2019-03-02] MEDS ORDERED: D50W (25GM) Syringe IV PRN (06:55)
[2019-03-02] MEDS: SODIUM CHLORIDE FLUSH SYRINGE 10 ML IV SCH ×3 (07:57→21:42)
[2019-03-02] MEDS: PLAVIX PO SCH (08:00)
[2019-03-02] MEDS: SOLU-Medrol IV SCH (08:01)
--- NOTE | 2019-03-02 08:16 | Progress Note ---
Assessment and Plan - Patient Problems (1) GERALDINE (acute kidney injury) Current Visit: Yes Status: Acute Plan to address problem: Likely in the setting of ischemic acute tubular necrosis secondary to cardiac arrest and an NSTEMI. Continue current supportive care. We will decrease IV fluids as she is now currently running at 250 mL of bicarbonate drip. We will switch to normal saline at 42 mL an hour. We'll also give patient dose of Lasix 60 mg IV 1 to increase her diuresis. Based on her response to diuretic therapy and worsening volume status she may end up having to be started on hemodialysis during this inpatient stay. No acute indications for dialysis at this time but will need to closely monitor on a daily basis. (2) NSTEMI (non-ST elevated myocardial infarction) Current Visit: Yes Status: Acute Plan to address problem: Further management per cardiology recommendations. Heparin drip has been discontinued at this time secondary to her level of anemia. We'll continue to monitor. Elevated cardiac enzymes noted during morning labs. (3) Encephalopathy acute Current Visit: Yes Status: Acute Plan to address problem: Currently intubated at this time. We'll continue to monitor., (4) Hyperkalemia Current Visit: Yes Status: Acute Plan to address problem: In the setting of hyperglycemia/poorly controlled DM and GERALDINE. Agree with current medical management and primarily control of her hyperglycemia/diabetes. We'll continue to monitor (5) Hyperosmolar non-ketotic state in patient with type 2 diabetes mellitus Current Visit: Yes Status: Acute Plan to address problem: Management per primary attending. Plan to start on insulin drip at this time. (6) Hyponatremia Current Visit: Yes Status: Acute Plan to address problem: Likely in the setting of hyperglycemia. Will monitor. (7) Sepsis Current Visit: Yes Status: Suspected Qualifiers: Sepsis type: sepsis due to unspecified organism Qualified Code(s): A41.9 - Sepsis, unspecified organism Plan to address problem: Unclear etiology, possible underlying UTI vs right gangrenous toe, await culture results. Antibiotics to be dosed per her decreased renal clearance. (8) Peripheral vascular disease Current Visit: Yes Status: Chronic Plan to address problem: s/p fasciotomy in the setting of developing acute compartment syndrome post thrombolysis. Management per vascular surgery. Status post debridement of RLE wound earlier during this admission Subjective Date of service: 03/02/19 Principal diagnosis: PVD with gangrene right toe, status post fasciotomies, NSTEMI, sepsis Interval history: Patient unfortunately was transferred to the intensive care unit yesterday because of worsening shortness of breath and respiratory distress which eventually required intubation. This was complicated by CODE BLUE being called. Patient unfortunately suffered an end STEMI. She is now in the ICU intubated, sedated, on Levothroid as well as bicarbonate drip. She has suffered an acute kidney injury likely in the setting of acute tubular necrosis considering ischemic injury from the aforementioned and STEMI and cardiac arrest. Nephrology is being asked to re-see patient during this admission. Labs noted this morning with improvement of her metabolic acidosis as well as hyperkalemia. Objective - Vital Signs Vital signs: Vital Signs - 12hr 03/01/19 03/01/19 03/01/19 20:15 20:16 20:22 Temperature Pulse Rate 115 H 114 H Pulse Rate [ 108 H Anterior Bilateral Throughout] Respiratory 31 H 25 H Rate Respiratory 29 H Rate [Anterior Bilateral Throughout] Blood Pressure 136/69 136/69 O2 Sat by Pulse 97 99 Oximetry 03/01/19 03/01/19 03/01/19 20:23 20:30 20:37 Temperature Pulse Rate 108 H 109 H Pulse Rate [ 110 H Anterior Bilateral Throughout] Respiratory 33 H Rate Respiratory 29 H Rate [Anterior Bilateral Throughout] Blood Pressure 139/69 136/69 O2 Sat by Pulse 100 100 Oximetry 03/01/19 03/01/19 03/01/19 20:45 21:00 21:15 Temperature Pulse Rate 112 H 115 H 115 H Pulse Rate [ Anterior Bilateral Throughout] Respiratory 22 17 19 Rate Respiratory Rate [Anterior Bilateral Throughout] Blood Pressure 116/60 119/65 134/65 O2 Sat by Pulse 100 100 100 Oximetry 03/01/19 03/01/19 03/01/19 21:30 21:45 22:00 Temperature Pulse Rate 116 H 116 H 113 H Pulse Rate [ Anterior Bilateral Throughout] Respiratory 34 H 21 32 H Rate Respiratory Rate [Anterior Bilateral Throughout] Blood Pressure 132/78 132/79 132/79 O2 Sat by Pulse 100 100 100 Oximetry 03/01/19 03/01/19 03/01/19 22:15 22:30 22:46 Temperature Pulse Rate 115 H 108 H 110 H Pulse Rate [ Anterior Bilateral Throughout] Respiratory 32 H 22 27 H Rate Respiratory Rate [Anterior Bilateral Throughout] Blood Pressure 139/78 139/78 121/60 O2 Sat by Pulse 100 100 100 Oximetry 03/01/19 03/01/19 03/01/19 23:00 23:13 23:16 Temperature 98.3 F Pulse Rate 114 H 114 H 112 H Pulse Rate [ Anterior Bilateral Throughout] Respiratory 18 25 H Rate Respiratory Rate [Anterior Bilateral Throughout] Blood Pressure 137/79 137/79 137/79 O2 Sat by Pulse 100 100 100 Oximetry 03/01/19 03/01/19 03/02/19 23:30 23:45 00:00 Temperature Pulse Rate 114 H 114 H 107 H Pulse Rate [ Anterior Bilateral Throughout] Respiratory 34 H 33 H 31 H Rate Respiratory Rate [Anterior Bilateral Throughout] Blood Pressure 130/80 140/69 132/69 O2 Sat by Pulse 100 100 100 Oximetry 03/02/19 03/02/19 03/02/19 00:15 00:30 00:46 Temperature Pulse Rate 106 H 102 H 100 H Pulse Rate [ Anterior Bilateral Throughout] Respiratory 30 H 16 34 H Rate Respiratory Rate [Anterior Bilateral Throughout] Blood Pressure 134/71 134/71 108/56 O2 Sat by Pulse 100 100 Oximetry 03/02/19 03/02/19 03/02/19 01:00 01:15 01:30 Temperature Pulse Rate 99 H 103 H 97 H Pulse Rate [ Anterior Bilateral Throughout] Respiratory 26 H 21 32 H Rate Respiratory Rate [Anterior Bilateral Throughout] Blood Pressure 108/56 102/67 101/60 O2 Sat by Pulse 100 Oximetry 03/02/19 03/02/19 03/02/19 01:45 02:00 02:15 Temperature Pulse Rate 100 H 97 H 96 H Pulse Rate [ Anterior Bilateral Throughout] Respiratory 23 34 H 30 H Rate Respiratory Rate [Anterior Bilateral Throughout] Blood Pressure 107/63 108/67 103/62 O2 Sat by Pulse 100 99 100 Oximetry 03/02/19 03/02/19 03/02/19 02:30 02:44 02:45 Temperature Pulse Rate 95 H 96 H Pulse Rate [ 96 H Anterior Bilateral Throughout] Respiratory 30 H 16 Rate Respiratory 27 H Rate [Anterior Bilateral Throughout] Blood Pressure 96/61 94/61 O2 Sat by Pulse 99 100 Oximetry 03/02/19 03/02/19 03/02/19 02:54 03:38 03:46 Temperature Pulse Rate 53 L 165 H Pulse Rate [ 98 H Anterior Bilateral Throughout] Respiratory 110 H Rate Respiratory 27 H Rate [Anterior Bilateral Throughout] Blood Pressure 94/61 94/61 O2 Sat by Pulse Oximetry 03/02/19 03/02/19 03/02/19 04:00 04:15 04:30 Temperature 98.1 F Pulse Rate 114 H 108 H 103 H Pulse Rate [ Anterior Bilateral Throughout] Respiratory 37 H 37 H 34 H Rate Respiratory Rate [Anterior Bilateral Throughout] Blood Pressure 94/61 120/65 102/63 O2 Sat by Pulse 94 96 97 Oximetry 03/02/19 03/02/19 03/02/19 04:45 05:00 05:08 Temperature Pulse Rate 102 H 101 H 98 H Pulse Rate [ Anterior Bilateral Throughout] Respiratory 35 H 36 H Rate Respiratory Rate [Anterior Bilateral Throughout] Blood Pressure 105/56 102/53 102/53 O2 Sat by Pulse 99 99 100 Oximetry 03/02/19 03/02/19 03/02/19 05:15 05:30 05:45 Temperature Pulse Rate 99 H 98 H 97 H Pulse Rate [ Anterior Bilateral Throughout] Respiratory 38 H 26 H 25 H Rate Respiratory Rate [Anterior Bilateral Throughout] Blood Pressure 99/56 110/58 113/59 O2 Sat by Pulse 99 98 99 Oximetry 03/02/19 03/02/19 03/02/19 06:00 06:15 06:30 Temperature Pulse Rate 96 H 95 H 95 H Pulse Rate [ Anterior Bilateral Throughout] Respiratory 29 H 16 31 H Rate Respiratory Rate [Anterior Bilateral Throughout] Blood Pressure 118/61 118/59 121/63 O2 Sat by Pulse 100 100 100 Oximetry 03/02/19 03/02/19 03/02/19 06:45 07:00 07:15 Temperature Pulse Rate 93 H 93 H 93 H Pulse Rate [ Anterior Bilateral Throughout] Respiratory 31 H 30 H 30 H Rate Respiratory Rate [Anterior Bilateral Throughout] Blood Pressure 119/65 122/61 118/60 O2 Sat by Pulse 100 100 100 Oximetry 03/02/19 03/02/19 03/02/19 07:24 07:28 07:30 Temperature Pulse Rate 96 H 94 H Pulse Rate [ 95 H Anterior Bilateral Throughout] Respiratory 30 H Rate Respiratory 34 H Rate [Anterior Bilateral Throughout] Blood Pressure 118/60 115/64 O2 Sat by Pulse 100 100 Oximetry 03/02/19 03/02/19 03/02/19 07:37 07:45 08:00 Temperature Pulse Rate 95 H 93 H Pulse Rate [ 90 Anterior Bilateral Throughout] Respiratory 19 6 L Rate Respiratory 26 H Rate [Anterior Bilateral Throughout] Blood Pressure 110/62 115/66 O2 Sat by Pulse 100 100 Oximetry - General Appearance General appearance: intubated, frail EENT: ATNC Neck: no JVD, no thyromegaly Respiratory: Present: Decreased Breath Sounds Cardiology: regular, S1S2 Gastrointestinal: normal, normoactive bowel sounds Integumentary: no rash, warm and dry Neurologic: facial droop (intubated and sedated) Musculoskeletal: other (positive edema) - Lab 03/02/19 04:20 03/02/19 04:20 Most recent lab results Calcium 6.1 mg/dL (8.4-10.2) L 03/02/19 04:20 Phosphorus 3.10 mg/dL (2.5-4.5) 02/15/19 05:32 Magnesium 2.80 mg/dL (1.7-2.3) H 02/15/19 05:32 - Imaging Chest x-ray: report reviewed, image reviewed - Allied health notes Allied health notes reviewed: nursing Medications & Allergies - Medications Allergies/Adverse Reactions: Allergies No Known Allergies Allergy (Verified 01/28/19 21:26) Home Medications: Home Medications Medication Instructions Recorded Confirmed Last Taken Type Aspirin [Low Dose Aspirin EC] 81 mg PO DAILY #30 tablet. 02/04/19 02/16/19 02/14/19 10:00 Rx Clopidogrel [Plavix] 75 mg PO QDAY #30 tablet 02/04/19 02/16/19 02/14/19 10:00 Rx Lispro Insulin [Humalog] 0 unit SUB-Q ACHS units 02/20/19 Unknown Rx Lispro Insulin [Humalog] 5 unit SUB-Q AC 30 Days units 02/20/19 Unknown Rx Multivitamin with Iron [Tab-A-Lupe 1 each PO DAILY #30 tablet 02/20/19 Unknown Rx with Iron] Valsartan [Diovan] 160 mg PO BID #60 tablet 02/20/19 Unknown Rx oxyCODONE /ACETAMINOPHEN [Percocet 1 tab PO Q6H PRN #20 tablet 02/20/19 Unknown Rx 5/325 mg] Insulin Glargine [Lantus VIAL] 22 units SUB-Q DAILY #1 vial 02/25/19 Unknown Rx Insulin Lispro [HumaLOG VIAL] 0 units SQ AC #1 vial 02/25/19 Unknown Rx Active Medications: Generic Name Dose Route Start Last Admin Trade Name Freq PRN Reason Stop Dose Admin Acetaminophen 650 mg 02/13/19 18:03 Tylenol PO Q4H PRN Pain MILD(1-3)/Fever >100.5/MARTÍNEZ Albuterol 2.5 mg 02/22/19 04:53 02/28/19 16:08 Proventil IH 2.5 mg Q6HRT PRN Administration Shortness Of Breath Albuterol/Ipratropium 1 ampul 02/28/19 16:45 03/02/19 07:28 Duoneb *Not For Prn Use* IH 1 ampul Q6HRT RAFAEL Administration Aspirin 325 mg 02/28/19 19:00 03/01/19 13:07 Aspirin PO Not Given QDAY RAFAEL Dextrose 50 ml 03/02/19 08:04 D50w (25gm) Syringe IV PRN PRN Hypoglycemia Famotidine 20 mg 03/01/19 10:00 03/01/19 10:42 Pepcid IV 20 mg DAILY RAFAEL Administration Fentanyl 50 mcg 02/28/19 21:01 Sublimaze IV Q10MIN PRN ANALGESIA Hydralazine HCl 10 mg 02/16/19 16:04 Apresoline IV Q4HR PRN BP >160/100 Hydrophilic Ointment 1 applic 02/28/19 21:29 Vaseline Lip Therapy TP Q2HR PRN Dry Lips Fentanyl Citrate 2,000 mcg in 100 mls @ 5.665 mls/hr 02/28/19 22:00 03/01/19 00:46 Fentanyl Drip Premix IV 0 mcg/kg/hr TITR RAFAEL 0 mls/hr Titration Protocol 1 MCG/KG/HR Sodium Bicarbonate 75 meq/ 1,075 mls @ 250 mls/hr 02/28/19 23:00 03/02/19 04:22 Dextrose IV 250 mls/hr DIRECT RAFAEL Administration Norepinephrine 4 mg in 250 mls @ 7.5 mls/hr 03/01/19 03:00 03/02/19 08:06 Levophed Drip 4 Mg/Ns 250 Ml IV 18 mcg/min TITR RAFAEL 67.5 mls/hr Titration Protocol 2 MCG/MIN Dopamine HCl/Dextrose 800 mg in 250 mls @ 4.249 mls/hr 03/01/19 01:35 03/02/19 00:13 Intropin Drip 800 Mg/D5w 250 Ml IV 0 mcg/kg/min TITR RAFAEL 0 mls/hr Titration Protocol 2 MCG/KG/MIN Cefepime HCl 2 gm in 100 mls @ 200 mls/hr 03/01/19 20:00 03/01/19 21:56 Maxipime/Ns 2 Gm/100 Ml IV 200 mls/hr Q24HR RAFAEL Administration Protocol Insulin Human Regular 100 100 mls @ 1 mls/hr 03/02/19 09:00 units/ Sodium Chloride IV TITR RAFAEL Protocol 1 UNITS/HR Ondansetron HCl 4 mg 02/13/19 18:03 Zofran IV Q8H PRN Nausea And Vomiting Sodium Chloride 10 ml 02/13/19 22:00 03/02/19 07:57 Sodium Chloride Flush Syringe 10 Ml IV Not Given BID RAFAEL Sodium Chloride 10 ml 02/13/19 18:03 Sodium Chloride Flush Syringe 10 Ml IV PRN PRN LINE FLUSH
[2019-03-02] MEDS: HumuLIN R 100 UNITS in NACL 0.9% 99 ML IV SCH ×2 (08:42→15:34)
--- NOTE | 2019-03-02 08:56 | Progress Note ---
Assessment and Plan Impression: Shock possibly hypovolemic plus minus septic Acute respiratory failure, mechanical ventilation support.Pulmonary vascular congestion plus consolidations on CT NSTEMI Acute cerebellar stroke, bilateral Control blood sugar with hyperosmolar state. Insulin drip initiated already Pulmonary edema versus acute lung injury. Cannot rule out aspiration in view of abdominal CT pulmonary findings Severe metabolic acidosis, lactic.Improved Sepsis source unknown. Previously with UTI. New antibiotics per ID Episode of dyspnea on the ?, ventilation perfusion scan negative EKOS /arterial Thrombolysis to RLE for RLE ischemia, and R leg 4 compartment fasciotomy Recommendations Serial BP monitoring. Pressors being weaned Keep MAP > 65 Monitor UO, keep > 30 cc/ hr Close blood sugar sliding scale monitoring with insulin drip, allow for gradual drop and avoid overcorrection, in view of acute brain injury/ischemia Neurology consult PRBC if Hgb < 7 Increase PEEP to 8 decrease FiO2 as tolerated MB of consolidations Consider Lasix when possible with anasarca picture, depending on blood pressure status, currently on pressors of being weaned off Serial H&H, monitor for any bleeding. No focal hematoma or retroperitoneal bleeding source noted on abdominal CT scan I had a long conversation with family members, about transferring the patient to [place] last evening. My concern regarding trying to transfer is patient's stability, especially in view of CODE BLUE events 2 Will review this issue during the day today and proceed forward according to patient's clinical status Prognosis is grave. No family members available now for follow-up case discussion. Discussed with ICU staff, in detail Critical care time was 45 minutes of [id number] evaluation and coordination of care Subjective Date of service: 03/02/19 Principal diagnosis: PVD with gangrene right toe, status post fasciotomies, NSTEMI, sepsis Interval history: Intubated Objective Vital Signs - 12hr 03/01/19 03/01/19 03/01/19 21:00 21:15 21:30 Temperature Pulse Rate 115 H 115 H 116 H Pulse Rate [ Anterior Bilateral Throughout] Respiratory 17 19 34 H Rate Respiratory Rate [Anterior Bilateral Throughout] Blood Pressure 119/65 134/65 132/78 O2 Sat by Pulse 100 100 100 Oximetry 03/01/19 03/01/19 03/01/19 21:45 22:00 22:15 Temperature Pulse Rate 116 H 113 H 115 H Pulse Rate [ Anterior Bilateral Throughout] Respiratory 21 32 H 32 H Rate Respiratory Rate [Anterior Bilateral Throughout] Blood Pressure 132/79 132/79 139/78 O2 Sat by Pulse 100 100 100 Oximetry 03/01/19 03/01/19 03/01/19 22:30 22:46 23:00 Temperature Pulse Rate 108 H 110 H 114 H Pulse Rate [ Anterior Bilateral Throughout] Respiratory 22 27 H 18 Rate Respiratory Rate [Anterior Bilateral Throughout] Blood Pressure 139/78 121/60 137/79 O2 Sat by Pulse 100 100 100 Oximetry 03/01/19 03/01/19 03/01/19 23:13 23:16 23:30 Temperature 98.3 F Pulse Rate 114 H 112 H 114 H Pulse Rate [ Anterior Bilateral Throughout] Respiratory 25 H 34 H Rate Respiratory Rate [Anterior Bilateral Throughout] Blood Pressure 137/79 137/79 130/80 O2 Sat by Pulse 100 100 100 Oximetry 03/01/19 03/02/19 03/02/19 23:45 00:00 00:15 Temperature Pulse Rate 114 H 107 H 106 H Pulse Rate [ Anterior Bilateral Throughout] Respiratory 33 H 31 H 30 H Rate Respiratory Rate [Anterior Bilateral Throughout] Blood Pressure 140/69 132/69 134/71 O2 Sat by Pulse 100 100 100 Oximetry 03/02/19 03/02/19 03/02/19 00:30 00:46 01:00 Temperature Pulse Rate 102 H 100 H 99 H Pulse Rate [ Anterior Bilateral Throughout] Respiratory 16 34 H 26 H Rate Respiratory Rate [Anterior Bilateral Throughout] Blood Pressure 134/71 108/56 108/56 O2 Sat by Pulse 100 Oximetry 03/02/19 03/02/19 03/02/19 01:15 01:30 01:45 Temperature Pulse Rate 103 H 97 H 100 H Pulse Rate [ Anterior Bilateral Throughout] Respiratory 21 32 H 23 Rate Respiratory Rate [Anterior Bilateral Throughout] Blood Pressure 102/67 101/60 107/63 O2 Sat by Pulse 100 100 Oximetry 03/02/19 03/02/19 03/02/19 02:00 02:15 02:30 Temperature Pulse Rate 97 H 96 H 95 H Pulse Rate [ Anterior Bilateral Throughout] Respiratory 34 H 30 H 30 H Rate Respiratory Rate [Anterior Bilateral Throughout] Blood Pressure 108/67 103/62 96/61 O2 Sat by Pulse 99 100 99 Oximetry 03/02/19 03/02/19 03/02/19 02:44 02:45 02:54 Temperature Pulse Rate 96 H Pulse Rate [ 96 H 98 H Anterior Bilateral Throughout] Respiratory 16 Rate Respiratory 27 H 27 H Rate [Anterior Bilateral Throughout] Blood Pressure 94/61 O2 Sat by Pulse 100 Oximetry 03/02/19 03/02/19 03/02/19 03:38 03:46 04:00 Temperature 98.1 F Pulse Rate 53 L 165 H 114 H Pulse Rate [ Anterior Bilateral Throughout] Respiratory 110 H 37 H Rate Respiratory Rate [Anterior Bilateral Throughout] Blood Pressure 94/61 94/61 94/61 O2 Sat by Pulse 94 Oximetry 03/02/19 03/02/19 03/02/19 04:15 04:30 04:45 Temperature Pulse Rate 108 H 103 H 102 H Pulse Rate [ Anterior Bilateral Throughout] Respiratory 37 H 34 H 35 H Rate Respiratory Rate [Anterior Bilateral Throughout] Blood Pressure 120/65 102/63 105/56 O2 Sat by Pulse 96 97 99 Oximetry 03/02/19 03/02/19 03/02/19 05:00 05:08 05:15 Temperature Pulse Rate 101 H 98 H 99 H Pulse Rate [ Anterior Bilateral Throughout] Respiratory 36 H 38 H Rate Respiratory Rate [Anterior Bilateral Throughout] Blood Pressure 102/53 102/53 99/56 O2 Sat by Pulse 99 100 99 Oximetry 03/02/19 03/02/19 03/02/19 05:30 05:45 06:00 Temperature Pulse Rate 98 H 97 H 96 H Pulse Rate [ Anterior Bilateral Throughout] Respiratory 26 H 25 H 29 H Rate Respiratory Rate [Anterior Bilateral Throughout] Blood Pressure 110/58 113/59 118/61 O2 Sat by Pulse 98 99 100 Oximetry 03/02/19 03/02/19 03/02/19 06:15 06:30 06:45 Temperature Pulse Rate 95 H 95 H 93 H Pulse Rate [ Anterior Bilateral Throughout] Respiratory 16 31 H 31 H Rate Respiratory Rate [Anterior Bilateral Throughout] Blood Pressure 118/59 121/63 119/65 O2 Sat by Pulse 100 100 100 Oximetry 03/02/19 03/02/19 03/02/19 07:00 07:15 07:24 Temperature Pulse Rate 93 H 93 H 96 H Pulse Rate [ Anterior Bilateral Throughout] Respiratory 30 H 30 H Rate Respiratory Rate [Anterior Bilateral Throughout] Blood Pressure 122/61 118/60 118/60 O2 Sat by Pulse 100 100 100 Oximetry 04/02/19 04/02/19 04/02/19 07:28 07:30 07:37 Temperature Pulse Rate 94 H Pulse Rate [ 95 H 90 Anterior Bilateral Throughout] Respiratory 30 H Rate Respiratory 34 H 26 H Rate [Anterior Bilateral Throughout] Blood Pressure 115/64 O2 Sat by Pulse 100 Oximetry 03/02/19 03/02/19 07:45 08:00 Temperature Pulse Rate 95 H 93 H Pulse Rate [ Anterior Bilateral Throughout] Respiratory 19 6 L Rate Respiratory Rate [Anterior Bilateral Throughout] Blood Pressure 110/62 115/66 O2 Sat by Pulse 100 100 Oximetry Constitutional: comatose Eyes: non-icteric ENT: other (ETT in position) Neck: supple, no JVD (broad neck) Ascultation: Bilateral: rhonchi (bilaterally) Cardiovascular: regular rate and rhythm Gastrointestinal: normoactive bowel sounds, non-distended Extremities: other (right lower extremity bandage in place, somewhat cold, distal gangrene toes) Neurologic: other (pupils approximately 4-5 mm and reactive comatose off sedation, GCS 4,poorly reactive) CBC and BMP: 03/02/19 04:20 03/02/19 04:20 ABG, PT/INR, D-dimer: ABG POC ABG pH 7.358 (7.35-7.45) 03/02/19 05:25 POC ABG pCO2 33.8 (35-45) L 03/02/19 05:25 POC ABG pO2 102 (80-105) 03/02/19 05:25 POC ABG HCO3 19.0 (22-26 mml/L) 03/02/19 05:25 POC ABG Total CO2 20 (23-27mmol/L) 03/02/19 05:25 POC ABG O2 Sat 98 03/02/19 05:25 PT/INR, D-dimer PT 15.5 Sec. (12.2-14.9) H 02/28/19 18:33 INR 1.16 (0.87-1.13) H 02/28/19 18:33 D-Dimer 1481.17 ng/mlDDU (0-234) H 02/22/19 08:26 Abnormal lab findings: Abnormal Labs 02/13/19 02/13/19 02/13/19 13:55 14:08 14:08 WBC 21.3 H RBC 3.00 L Hgb 8.5 L Hct 26.7 L MCHC RDW 16.4 H Plt Count 528 H Seg Neuts % (Manual) 89.0 H Lymphocytes % (Manual) 4.0 L Monocytes % (Manual) Nucleated RBC % 2.0 H Seg Neutrophils # Man 19.0 H Lymphocytes # (Manual) 0.9 L Monocytes # (Manual) PT INR D-Dimer POC ABG pH POC ABG pCO2 POC ABG pO2 Sodium 129 L Potassium 5.4 H Chloride 91.8 L Carbon Dioxide 17 L BUN 52 H Creatinine 2.5 H Glucose 402 H POC Glucose 389 H Hemoglobin A1c Lactic Acid Calcium Magnesium Total Bilirubin 1.50 H Direct Bilirubin 1.1 H AST 61 H ALT Alkaline Phosphatase 271 H Total Creatine Kinase CK-MB (CK-2) Troponin T NT-Pro-B Natriuret Pep Total Protein Albumin 2.3 L Triglycerides LDL Cholesterol Direct HDL Cholesterol Urine WBC (Auto) Crossmatch 02/13/19 02/13/19 02/13/19 14:15 14:15 14:20 WBC RBC Hgb Hct MCHC RDW Plt Count Seg Neuts % (Manual) Lymphocytes % (Manual) Monocytes % (Manual) Nucleated RBC % Seg Neutrophils # Man Lymphocytes # (Manual) Monocytes # (Manual) PT 15.6 H INR 1.17 H D-Dimer POC ABG pH POC ABG pCO2 POC ABG pO2 Sodium Potassium Chloride Carbon Dioxide BUN Creatinine Glucose POC Glucose Hemoglobin A1c Lactic Acid Calcium Magnesium 1.60 L Total Bilirubin Direct Bilirubin AST ALT Alkaline Phosphatase Total Creatine Kinase 1295 H CK-MB (CK-2) Troponin T 0.072 H NT-Pro-B Natriuret Pep 6167 H Total Protein Albumin Triglycerides 329 H LDL Cholesterol Direct 36 L HDL Cholesterol 17 L Urine WBC (Auto) Crossmatch 02/13/19 02/13/19 02/13/19 15:36 18:15 20:59 WBC RBC Hgb Hct MCHC RDW Plt Count Seg Neuts % (Manual) Lymphocytes % (Manual) Monocytes % (Manual) Nucleated RBC % Seg Neutrophils # Man Lymphocytes # (Manual) Monocytes # (Manual) PT INR D-Dimer POC ABG pH POC ABG pCO2 POC ABG pO2 Sodium Potassium Chloride Carbon Dioxide BUN Creatinine Glucose POC Glucose 293 H 390 H Hemoglobin A1c 9.2 H Lactic Acid Calcium Magnesium Total Bilirubin Direct Bilirubin AST ALT Alkaline Phosphatase Total Creatine Kinase CK-MB (CK-2) Troponin T NT-Pro-B Natriuret Pep Total Protein Albumin Triglycerides LDL Cholesterol Direct HDL Cholesterol Urine WBC (Auto) Crossmatch 02/14/19 02/14/19 02/14/19 07:45 08:15 08:15 WBC 23.2 H RBC 2.89 L Hgb 8.3 L Hct 25.3 L MCHC RDW 16.6 H Plt Count 457 H Seg Neuts % (Manual) 91.0 H Lymphocytes % (Manual) 3.0 L Monocytes % (Manual) Nucleated RBC % Seg Neutrophils # Man 21.1 H Lymphocytes # (Manual) 0.7 L Monocytes # (Manual) 1.2 H PT INR D-Dimer POC ABG pH POC ABG pCO2 POC ABG pO2 Sodium 126 L Potassium 5.3 H Chloride 91.5 L Carbon Dioxide 17 L BUN 65 H Creatinine 2.4 H Glucose 418 H POC Glucose Hemoglobin A1c Lactic Acid Calcium 8.2 L Magnesium 2.90 H Total Bilirubin 1.60 H Direct Bilirubin AST 47 H ALT Alkaline Phosphatase 218 H Total Creatine Kinase CK-MB (CK-2) Troponin T NT-Pro-B Natriuret Pep Total Protein 6.2 L Albumin 2.2 L Triglycerides LDL Cholesterol Direct HDL Cholesterol Urine WBC (Auto) Crossmatch 02/14/19 02/14/19 02/14/19 09:07 09:30 18:53 WBC RBC Hgb Hct MCHC RDW Plt Count Seg Neuts % (Manual) Lymphocytes % (Manual) Monocytes % (Manual) Nucleated RBC % Seg Neutrophils # Man Lymphocytes # (Manual) Monocytes # (Manual) PT INR D-Dimer POC ABG pH POC ABG pCO2 POC ABG pO2 Sodium Potassium Chloride Carbon Dioxide BUN Creatinine Glucose POC Glucose 384 H 353 H Hemoglobin A1c Lactic Acid Calcium Magnesium Total Bilirubin Direct Bilirubin AST ALT Alkaline Phosphatase Total Creatine Kinase CK-MB (CK-2) Troponin T NT-Pro-B Natriuret Pep Total Protein Albumin Triglycerides LDL Cholesterol Direct HDL Cholesterol Urine WBC (Auto) > 182.0 H Crossmatch 02/14/19 02/14/19 02/15/19 21:33 21:40 01:45 WBC RBC Hgb Hct MCHC RDW Plt Count Seg Neuts % (Manual) Lymphocytes % (Manual) Monocytes % (Manual) Nucleated RBC % Seg Neutrophils # Man Lymphocytes # (Manual) Monocytes # (Manual) PT INR D-Dimer POC ABG pH POC ABG pCO2 POC ABG pO2 Sodium Potassium Chloride Carbon Dioxide BUN Creatinine Glucose POC Glucose 404 H 360 H 299 H Hemoglobin A1c Lactic Acid Calcium Magnesium Total Bilirubin Direct Bilirubin AST ALT Alkaline Phosphatase Total Creatine Kinase CK-MB (CK-2) Troponin T NT-Pro-B Natriuret Pep Total Protein Albumin Triglycerides LDL Cholesterol Direct HDL Cholesterol Urine WBC (Auto) Crossmatch 02/15/19 02/15/19 02/15/19 05:32 05:38 11:35 WBC RBC Hgb Hct MCHC RDW Plt Count Seg Neuts % (Manual) Lymphocytes % (Manual) Monocytes % (Manual) Nucleated RBC % Seg Neutrophils # Man Lymphocytes # (Manual) Monocytes # (Manual) PT INR D-Dimer POC ABG pH POC ABG pCO2 POC ABG pO2 Sodium Potassium Chloride Carbon Dioxide BUN Creatinine Glucose POC Glucose 402 H 393 H Hemoglobin A1c Lactic Acid Calcium Magnesium 2.80 H Total Bilirubin Direct Bilirubin AST ALT Alkaline Phosphatase Total Creatine Kinase 448 H CK-MB (CK-2) Troponin T NT-Pro-B Natriuret Pep Total Protein Albumin Triglycerides LDL Cholesterol Direct HDL Cholesterol Urine WBC (Auto) Crossmatch 02/15/19 02/15/19 02/15/19 14:15 14:48 17:21 WBC RBC Hgb Hct MCHC RDW Plt Count Seg Neuts % (Manual) Lymphocytes % (Manual) Monocytes % (Manual) Nucleated RBC % Seg Neutrophils # Man Lymphocytes # (Manual) Monocytes # (Manual) PT INR D-Dimer POC ABG pH POC ABG pCO2 POC ABG pO2 Sodium 128 L Potassium Chloride 92.4 L Carbon Dioxide 21 L BUN 86 H Creatinine 1.9 H Glucose 436 H POC Glucose 386 H 347 H Hemoglobin A1c Lactic Acid Calcium 8.1 L Magnesium Total Bilirubin Direct Bilirubin AST ALT Alkaline Phosphatase Total Creatine Kinase CK-MB (CK-2) Troponin T NT-Pro-B Natriuret Pep Total Protein Albumin Triglycerides LDL Cholesterol Direct HDL Cholesterol Urine WBC (Auto) Crossmatch 02/15/19 02/15/19 02/16/19 22:32 23:51 04:08 WBC RBC Hgb Hct MCHC RDW Plt Count Seg Neuts % (Manual) Lymphocytes % (Manual) Monocytes % (Manual) Nucleated RBC % Seg Neutrophils # Man Lymphocytes # (Manual) Monocytes # (Manual) PT INR D-Dimer POC ABG pH POC ABG pCO2 POC ABG pO2 Sodium Potassium Chloride Carbon Dioxide BUN Creatinine Glucose POC Glucose 272 H 244 H 253 H Hemoglobin A1c Lactic Acid Calcium Magnesium Total Bilirubin Direct Bilirubin AST ALT Alkaline Phosphatase Total Creatine Kinase CK-MB (CK-2) Troponin T NT-Pro-B Natriuret Pep Total Protein Albumin Triglycerides LDL Cholesterol Direct HDL Cholesterol Urine WBC (Auto) Crossmatch 02/16/19 02/16/19 02/16/19 05:29 08:52 11:55 WBC RBC Hgb Hct MCHC RDW Plt Count Seg Neuts % (Manual) Lymphocytes % (Manual) Monocytes % (Manual) Nucleated RBC % Seg Neutrophils # Man Lymphocytes # (Manual) Monocytes # (Manual) PT INR D-Dimer POC ABG pH POC ABG pCO2 POC ABG pO2 Sodium Potassium Chloride Carbon Dioxide BUN Creatinine Glucose POC Glucose 262 H 313 H Hemoglobin A1c Lactic Acid Calcium Magnesium Total Bilirubin Direct Bilirubin AST ALT Alkaline Phosphatase Total Creatine Kinase 200 H CK-MB (CK-2) Troponin T NT-Pro-B Natriuret Pep Total Protein Albumin Triglycerides LDL Cholesterol Direct HDL Cholesterol Urine WBC (Auto) Crossmatch 02/16/19 02/16/19 02/17/19 16:20 22:38 00:15 WBC RBC Hgb Hct MCHC RDW Plt Count Seg Neuts % (Manual) Lymphocytes % (Manual) Monocytes % (Manual) Nucleated RBC % Seg Neutrophils # Man Lymphocytes # (Manual) Monocytes # (Manual) PT INR D-Dimer POC ABG pH POC ABG pCO2 POC ABG pO2 Sodium 131 L Potassium Chloride 95.7 L Carbon Dioxide 21 L BUN 70 H Creatinine 1.3 H Glucose 121 H POC Glucose 146 H 125 H Hemoglobin A1c Lactic Acid Calcium 8.0 L Magnesium Total Bilirubin Direct Bilirubin AST ALT Alkaline Phosphatase Total Creatine Kinase CK-MB (CK-2) Troponin T NT-Pro-B Natriuret Pep Total Protein Albumin Triglycerides LDL Cholesterol Direct HDL Cholesterol Urine WBC (Auto) Crossmatch 02/17/19 02/17/19 02/17/19 03:49 07:32 10:41 WBC 13.3 H RBC 2.92 L Hgb 8.2 L Hct 24.6 L MCHC RDW 16.2 H Plt Count Seg Neuts % (Manual) 85.0 H Lymphocytes % (Manual) 8.0 L Monocytes % (Manual) Nucleated RBC % Seg Neutrophils # Man 11.3 H Lymphocytes # (Manual) 1.1 L Monocytes # (Manual) PT INR D-Dimer POC ABG pH POC ABG pCO2 POC ABG pO2 Sodium 129 L Potassium 5.2 H D Chloride 95.9 L Carbon Dioxide 18 L BUN 69 H Creatinine 1.4 H Glucose POC Glucose 146 H Hemoglobin A1c Lactic Acid Calcium 8.1 L Magnesium Total Bilirubin Direct Bilirubin AST ALT Alkaline Phosphatase Total Creatine Kinase CK-MB (CK-2) Troponin T NT-Pro-B Natriuret Pep Total Protein Albumin Triglycerides LDL Cholesterol Direct HDL Cholesterol Urine WBC (Auto) Crossmatch 02/17/19 02/17/19 02/18/19 11:14 16:18 01:14 WBC 14.6 H RBC 2.53 L Hgb 7.1 L Hct 21.7 L MCHC RDW 16.6 H Plt Count Seg Neuts % (Manual) 72.0 H Lymphocytes % (Manual) 8.0 L Monocytes % (Manual) 11.0 H Nucleated RBC % Seg Neutrophils # Man 10.5 H Lymphocytes # (Manual) Monocytes # (Manual) 1.6 H PT INR D-Dimer POC ABG pH POC ABG pCO2 POC ABG pO2 Sodium Potassium Chloride Carbon Dioxide BUN Creatinine Glucose POC Glucose 219 H 176 H Hemoglobin A1c Lactic Acid Calcium Magnesium Total Bilirubin Direct Bilirubin AST ALT Alkaline Phosphatase Total Creatine Kinase CK-MB (CK-2) Troponin T NT-Pro-B Natriuret Pep Total Protein Albumin Triglycerides LDL Cholesterol Direct HDL Cholesterol Urine WBC (Auto) Crossmatch 02/18/19 02/18/19 02/18/19 04:25 11:35 11:57 WBC RBC Hgb Hct MCHC RDW Plt Count Seg Neuts % (Manual) Lymphocytes % (Manual) Monocytes % (Manual) Nucleated RBC % Seg Neutrophils # Man Lymphocytes # (Manual) Monocytes # (Manual) PT INR D-Dimer POC ABG pH POC ABG pCO2 POC ABG pO2 Sodium 130 L Potassium Chloride 94.7 L Carbon Dioxide BUN 53 H Creatinine Glucose POC Glucose 197 H Hemoglobin A1c Lactic Acid Calcium 7.8 L Magnesium Total Bilirubin Direct Bilirubin AST ALT Alkaline Phosphatase Total Creatine Kinase CK-MB (CK-2) Troponin T NT-Pro-B Natriuret Pep Total Protein Albumin Triglycerides LDL Cholesterol Direct HDL Cholesterol Urine WBC (Auto) Crossmatch See Detail 02/18/19 02/18/19 02/19/19 16:32 21:26 07:01 WBC RBC Hgb Hct MCHC RDW Plt Count Seg Neuts % (Manual) Lymphocytes % (Manual) Monocytes % (Manual) Nucleated RBC % Seg Neutrophils # Man Lymphocytes # (Manual) Monocytes # (Manual) PT INR D-Dimer POC ABG pH POC ABG pCO2 POC ABG pO2 Sodium 135 L Potassium Chloride Carbon Dioxide BUN 36 H Creatinine Glucose POC Glucose 108 H 107 H Hemoglobin A1c Lactic Acid Calcium 7.9 L Magnesium Total Bilirubin Direct Bilirubin AST ALT Alkaline Phosphatase Total Creatine Kinase CK-MB (CK-2) Troponin T NT-Pro-B Natriuret Pep Total Protein Albumin Triglycerides LDL Cholesterol Direct HDL Cholesterol Urine WBC (Auto) Crossmatch 02/19/19 02/19/19 02/19/19 11:11 13:46 15:19 WBC 12.0 H RBC 2.63 L Hgb 7.5 L Hct 23.3 L MCHC RDW 16.6 H Plt Count Seg Neuts % (Manual) 74.0 H Lymphocytes % (Manual) Monocytes % (Manual) Nucleated RBC % Seg Neutrophils # Man 8.9 H Lymphocytes # (Manual) Monocytes # (Manual) PT INR D-Dimer POC ABG pH POC ABG pCO2 POC ABG pO2 Sodium Potassium Chloride Carbon Dioxide BUN Creatinine Glucose POC Glucose 125 H 181 H Hemoglobin A1c Lactic Acid Calcium Magnesium Total Bilirubin Direct Bilirubin AST ALT Alkaline Phosphatase Total Creatine Kinase CK-MB (CK-2) Troponin T NT-Pro-B Natriuret Pep Total Protein Albumin Triglycerides LDL Cholesterol Direct HDL Cholesterol Urine WBC (Auto) Crossmatch 02/19/19 02/20/19 02/20/19 22:04 02:47 05:25 WBC RBC Hgb Hct MCHC RDW Plt Count Seg Neuts % (Manual) Lymphocytes % (Manual) Monocytes % (Manual) Nucleated RBC % Seg Neutrophils # Man Lymphocytes # (Manual) Monocytes # (Manual) PT INR D-Dimer POC ABG pH POC ABG pCO2 POC ABG pO2 Sodium Potassium Chloride Carbon Dioxide BUN Creatinine Glucose POC Glucose 298 H 136 H 106 H Hemoglobin A1c Lactic Acid Calcium Magnesium Total Bilirubin Direct Bilirubin AST ALT Alkaline Phosphatase Total Creatine Kinase CK-MB (CK-2) Troponin T NT-Pro-B Natriuret Pep Total Protein Albumin Triglycerides LDL Cholesterol Direct HDL Cholesterol Urine WBC (Auto) Crossmatch 02/20/19 02/20/19 02/20/19 06:07 07:55 12:17 WBC RBC Hgb Hct MCHC RDW Plt Count Seg Neuts % (Manual) Lymphocytes % (Manual) Monocytes % (Manual) Nucleated RBC % Seg Neutrophils # Man Lymphocytes # (Manual) Monocytes # (Manual) PT INR D-Dimer POC ABG pH POC ABG pCO2 POC ABG pO2 Sodium Potassium Chloride Carbon Dioxide BUN 23 H Creatinine Glucose 105 H POC Glucose 112 H 195 H Hemoglobin A1c Lactic Acid Calcium 7.4 L Magnesium Total Bilirubin Direct Bilirubin AST ALT Alkaline Phosphatase Total Creatine Kinase CK-MB (CK-2) Troponin T NT-Pro-B Natriuret Pep Total Protein Albumin Triglycerides LDL Cholesterol Direct HDL Cholesterol Urine WBC (Auto) Crossmatch 02/20/19 02/20/19 02/21/19 16:34 22:23 11:35 WBC RBC Hgb Hct MCHC RDW Plt Count Seg Neuts % (Manual) Lymphocytes % (Manual) Monocytes % (Manual) Nucleated RBC % Seg Neutrophils # Man Lymphocytes # (Manual) Monocytes # (Manual) PT INR D-Dimer POC ABG pH POC ABG pCO2 POC ABG pO2 Sodium Potassium Chloride Carbon Dioxide BUN Creatinine Glucose POC Glucose 117 H 153 H 142 H Hemoglobin A1c Lactic Acid Calcium Magnesium Total Bilirubin Direct Bilirubin AST ALT Alkaline Phosphatase Total Creatine Kinase CK-MB (CK-2) Troponin T NT-Pro-B Natriuret Pep Total Protein Albumin Triglycerides LDL Cholesterol Direct HDL Cholesterol Urine WBC (Auto) Crossmatch 02/21/19 02/21/19 02/21/19 11:38 17:12 19:19 WBC RBC Hgb Hct MCHC RDW Plt Count Seg Neuts % (Manual) Lymphocytes % (Manual) Monocytes % (Manual) Nucleated RBC % Seg Neutrophils # Man Lymphocytes # (Manual) Monocytes # (Manual) PT INR D-Dimer POC ABG pH POC ABG pCO2 POC ABG pO2 Sodium 135 L Potassium Chloride Carbon Dioxide 18 L BUN Creatinine Glucose 129 H POC Glucose 61 L 135 H Hemoglobin A1c Lactic Acid Calcium 7.4 L Magnesium Total Bilirubin Direct Bilirubin AST ALT Alkaline Phosphatase Total Creatine Kinase CK-MB (CK-2) Troponin T NT-Pro-B Natriuret Pep Total Protein Albumin Triglycerides LDL Cholesterol Direct HDL Cholesterol Urine WBC (Auto) Crossmatch 02/21/19 02/22/19 02/22/19 21:24 04:18 04:49 WBC RBC Hgb Hct MCHC RDW Plt Count Seg Neuts % (Manual) Lymphocytes % (Manual) Monocytes % (Manual) Nucleated RBC % Seg Neutrophils # Man Lymphocytes # (Manual) Monocytes # (Manual) PT INR D-Dimer POC ABG pH 7.459 H POC ABG pCO2 POC ABG pO2 Sodium Potassium Chloride Carbon Dioxide BUN Creatinine Glucose POC Glucose 146 H 186 H Hemoglobin A1c Lactic Acid Calcium Magnesium Total Bilirubin Direct Bilirubin AST ALT Alkaline Phosphatase Total Creatine Kinase CK-MB (CK-2) Troponin T NT-Pro-B Natriuret Pep Total Protein Albumin Triglycerides LDL Cholesterol Direct HDL Cholesterol Urine WBC (Auto) Crossmatch 02/22/19 02/22/19 02/22/19 07:56 08:26 08:26 WBC RBC Hgb Hct MCHC RDW Plt Count Seg Neuts % (Manual) Lymphocytes % (Manual) Monocytes % (Manual) Nucleated RBC % Seg Neutrophils # Man Lymphocytes # (Manual) Monocytes # (Manual) PT INR D-Dimer 1481.17 H POC ABG pH POC ABG pCO2 POC ABG pO2 Sodium 133 L Potassium 5.3 H Chloride Carbon Dioxide 19 L BUN Creatinine Glucose 216 H POC Glucose 239 H Hemoglobin A1c Lactic Acid Calcium 7.7 L Magnesium Total Bilirubin Direct Bilirubin AST ALT Alkaline Phosphatase Total Creatine Kinase CK-MB (CK-2) Troponin T NT-Pro-B Natriuret Pep Total Protein Albumin Triglycerides LDL Cholesterol Direct HDL Cholesterol Urine WBC (Auto) Crossmatch 02/22/19 02/22/19 02/22/19 11:59 17:06 22:00 WBC RBC Hgb Hct MCHC RDW Plt Count Seg Neuts % (Manual) Lymphocytes % (Manual) Monocytes % (Manual) Nucleated RBC % Seg Neutrophils # Man Lymphocytes # (Manual) Monocytes # (Manual) PT INR D-Dimer POC ABG pH POC ABG pCO2 POC ABG pO2 Sodium Potassium Chloride Carbon Dioxide BUN Creatinine Glucose POC Glucose 238 H 61 L 174 H Hemoglobin A1c Lactic Acid Calcium Magnesium Total Bilirubin Direct Bilirubin AST ALT Alkaline Phosphatase Total Creatine Kinase CK-MB (CK-2) Troponin T NT-Pro-B Natriuret Pep Total Protein Albumin Triglycerides LDL Cholesterol Direct HDL Cholesterol Urine WBC (Auto) Crossmatch 02/23/19 02/23/19 02/23/19 06:12 07:50 21:43 WBC RBC Hgb Hct MCHC RDW Plt Count Seg Neuts % (Manual) Lymphocytes % (Manual) Monocytes % (Manual) Nucleated RBC % Seg Neutrophils # Man Lymphocytes # (Manual) Monocytes # (Manual) PT INR D-Dimer POC ABG pH POC ABG pCO2 POC ABG pO2 Sodium Potassium Chloride Carbon Dioxide 19 L BUN 18 H Creatinine Glucose 52 L POC Glucose 55 L 107 H Hemoglobin A1c Lactic Acid Calcium 8.3 L Magnesium Total Bilirubin Direct Bilirubin AST ALT Alkaline Phosphatase Total Creatine Kinase CK-MB (CK-2) Troponin T NT-Pro-B Natriuret Pep Total Protein Albumin Triglycerides LDL Cholesterol Direct HDL Cholesterol Urine WBC (Auto) Crossmatch 02/24/19 02/24/19 02/24/19 07:29 11:29 16:05 WBC RBC Hgb Hct MCHC RDW Plt Count Seg Neuts % (Manual) Lymphocytes % (Manual) Monocytes % (Manual) Nucleated RBC % Seg Neutrophils # Man Lymphocytes # (Manual) Monocytes # (Manual) PT INR D-Dimer POC ABG pH POC ABG pCO2 POC ABG pO2 Sodium Potassium Chloride Carbon Dioxide BUN Creatinine Glucose POC Glucose 176 H 253 H 179 H Hemoglobin A1c Lactic Acid Calcium Magnesium Total Bilirubin Direct Bilirubin AST ALT Alkaline Phosphatase Total Creatine Kinase CK-MB (CK-2) Troponin T NT-Pro-B Natriuret Pep Total Protein Albumin Triglycerides LDL Cholesterol Direct HDL Cholesterol Urine WBC (Auto) Crossmatch 02/24/19 02/25/19 02/25/19 21:50 07:57 11:54 WBC RBC Hgb Hct MCHC RDW Plt Count Seg Neuts % (Manual) Lymphocytes % (Manual) Monocytes % (Manual) Nucleated RBC % Seg Neutrophils # Man Lymphocytes # (Manual) Monocytes # (Manual) PT INR D-Dimer POC ABG pH POC ABG pCO2 POC ABG pO2 Sodium Potassium Chloride Carbon Dioxide BUN Creatinine Glucose POC Glucose 200 H 249 H 260 H Hemoglobin A1c Lactic Acid Calcium Magnesium Total Bilirubin Direct Bilirubin AST ALT Alkaline Phosphatase Total Creatine Kinase CK-MB (CK-2) Troponin T NT-Pro-B Natriuret Pep Total Protein Albumin Triglycerides LDL Cholesterol Direct HDL Cholesterol Urine WBC (Auto) Crossmatch 02/25/19 02/25/19 02/26/19 16:34 21:52 07:54 WBC RBC Hgb Hct MCHC RDW Plt Count Seg Neuts % (Manual) Lymphocytes % (Manual) Monocytes % (Manual) Nucleated RBC % Seg Neutrophils # Man Lymphocytes # (Manual) Monocytes # (Manual) PT INR D-Dimer POC ABG pH POC ABG pCO2 POC ABG pO2 Sodium Potassium Chloride Carbon Dioxide BUN Creatinine Glucose POC Glucose 198 H 254 H 213 H Hemoglobin A1c Lactic Acid Calcium Magnesium Total Bilirubin Direct Bilirubin AST ALT Alkaline Phosphatase Total Creatine Kinase CK-MB (CK-2) Troponin T NT-Pro-B Natriuret Pep Total Protein Albumin Triglycerides LDL Cholesterol Direct HDL Cholesterol Urine WBC (Auto) Crossmatch 02/26/19 02/26/19 02/26/19 11:49 16:00 22:00 WBC RBC Hgb Hct MCHC RDW Plt Count Seg Neuts % (Manual) Lymphocytes % (Manual) Monocytes % (Manual) Nucleated RBC % Seg Neutrophils # Man Lymphocytes # (Manual) Monocytes # (Manual) PT INR D-Dimer POC ABG pH POC ABG pCO2 POC ABG pO2 Sodium Potassium Chloride Carbon Dioxide BUN Creatinine Glucose POC Glucose 306 H 183 H 162 H Hemoglobin A1c Lactic Acid Calcium Magnesium Total Bilirubin Direct Bilirubin AST ALT Alkaline Phosphatase Total Creatine Kinase CK-MB (CK-2) Troponin T NT-Pro-B Natriuret Pep Total Protein Albumin Triglycerides LDL Cholesterol Direct HDL Cholesterol Urine WBC (Auto) Crossmatch 02/27/19 02/27/19 02/27/19 07:44 11:11 16:57 WBC RBC Hgb Hct MCHC RDW Plt Count Seg Neuts % (Manual) Lymphocytes % (Manual) Monocytes % (Manual) Nucleated RBC % Seg Neutrophils # Man Lymphocytes # (Manual) Monocytes # (Manual) PT INR D-Dimer POC ABG pH POC ABG pCO2 POC ABG pO2 Sodium Potassium Chloride Carbon Dioxide BUN Creatinine Glucose POC Glucose 171 H 217 H 199 H Hemoglobin A1c Lactic Acid Calcium Magnesium Total Bilirubin Direct Bilirubin AST ALT Alkaline Phosphatase Total Creatine Kinase CK-MB (CK-2) Troponin T NT-Pro-B Natriuret Pep Total Protein Albumin Triglycerides LDL Cholesterol Direct HDL Cholesterol Urine WBC (Auto) Crossmatch 02/27/19 02/28/19 02/28/19 21:48 07:36 11:41 WBC RBC Hgb Hct MCHC RDW Plt Count Seg Neuts % (Manual) Lymphocytes % (Manual) Monocytes % (Manual) Nucleated RBC % Seg Neutrophils # Man Lymphocytes # (Manual) Monocytes # (Manual) PT INR D-Dimer POC ABG pH POC ABG pCO2 POC ABG pO2 Sodium Potassium Chloride Carbon Dioxide BUN Creatinine Glucose POC Glucose 161 H 148 H 244 H Hemoglobin A1c Lactic Acid Calcium Magnesium Total Bilirubin Direct Bilirubin AST ALT Alkaline Phosphatase Total Creatine Kinase CK-MB (CK-2) Troponin T NT-Pro-B Natriuret Pep Total Protein Albumin Triglycerides LDL Cholesterol Direct HDL Cholesterol Urine WBC (Auto) Crossmatch 02/28/19 02/28/19 02/28/19 16:32 16:53 17:28 WBC RBC Hgb Hct MCHC RDW Plt Count Seg Neuts % (Manual) Lymphocytes % (Manual) Monocytes % (Manual) Nucleated RBC % Seg Neutrophils # Man Lymphocytes # (Manual) Monocytes # (Manual) PT INR D-Dimer POC ABG pH POC ABG pCO2 POC ABG pO2 53 L Sodium Potassium Chloride Carbon Dioxide BUN Creatinine Glucose POC Glucose 283 H Hemoglobin A1c Lactic Acid Calcium Magnesium Total Bilirubin Direct Bilirubin AST ALT Alkaline Phosphatase Total Creatine Kinase CK-MB (CK-2) Troponin T 0.119 H* NT-Pro-B Natriuret Pep Total Protein Albumin Triglycerides LDL Cholesterol Direct HDL Cholesterol Urine WBC (Auto) Crossmatch 02/28/19 02/28/19 02/28/19 18:33 18:33 18:33 WBC 11.5 H RBC 2.35 L Hgb 6.5 L Hct 21.2 L MCHC RDW 17.6 H Plt Count 631 H Seg Neuts % (Manual) 87.0 H Lymphocytes % (Manual) 9.0 L Monocytes % (Manual) Nucleated RBC % Seg Neutrophils # Man 10.0 H Lymphocytes # (Manual) 1.0 L Monocytes # (Manual) PT 15.5 H INR 1.16 H D-Dimer POC ABG pH POC ABG pCO2 POC ABG pO2 Sodium Potassium Chloride Carbon Dioxide BUN Creatinine Glucose POC Glucose Hemoglobin A1c Lactic Acid Calcium Magnesium Total Bilirubin Direct Bilirubin AST ALT Alkaline Phosphatase Total Creatine Kinase 165 H CK-MB (CK-2) 4.9 H Troponin T 0.123 H* NT-Pro-B Natriuret Pep Total Protein Albumin Triglycerides LDL Cholesterol Direct HDL Cholesterol Urine WBC (Auto) Crossmatch 02/28/19 02/28/19 02/28/19 18:33 19:55 21:39 WBC RBC Hgb Hct MCHC RDW Plt Count Seg Neuts % (Manual) Lymphocytes % (Manual) Monocytes % (Manual) Nucleated RBC % Seg Neutrophils # Man Lymphocytes # (Manual) Monocytes # (Manual) PT INR D-Dimer POC ABG pH 7.319 L POC ABG pCO2 POC ABG pO2 196 H Sodium 136 L Potassium 5.6 H Chloride Carbon Dioxide 14 L BUN 21 H Creatinine 1.4 H Glucose 274 H POC Glucose 277 H Hemoglobin A1c Lactic Acid Calcium 8.3 L Magnesium Total Bilirubin Direct Bilirubin AST ALT Alkaline Phosphatase 165 H Total Creatine Kinase CK-MB (CK-2) Troponin T NT-Pro-B Natriuret Pep Total Protein Albumin 2.7 L Triglycerides LDL Cholesterol Direct HDL Cholesterol Urine WBC (Auto) Crossmatch 02/28/19 02/28/19 02/28/19 22:46 22:47 22:59 WBC RBC Hgb Hct MCHC RDW Plt Count Seg Neuts % (Manual) Lymphocytes % (Manual) Monocytes % (Manual) Nucleated RBC % Seg Neutrophils # Man Lymphocytes # (Manual) Monocytes # (Manual) PT INR D-Dimer POC ABG pH 7.068 L POC ABG pCO2 34.7 L POC ABG pO2 280 H Sodium Potassium Chloride Carbon Dioxide BUN Creatinine Glucose POC Glucose Hemoglobin A1c Lactic Acid 16.50 H* Calcium Magnesium Total Bilirubin Direct Bilirubin AST ALT Alkaline Phosphatase Total Creatine Kinase CK-MB (CK-2) Troponin T 0.595 H* D NT-Pro-B Natriuret Pep Total Protein Albumin Triglycerides LDL Cholesterol Direct HDL Cholesterol Urine WBC (Auto) Crossmatch 02/28/19 03/01/19 03/01/19 22:59 00:47 00:48 WBC RBC Hgb Hct MCHC RDW Plt Count Seg Neuts % (Manual) Lymphocytes % (Manual) Monocytes % (Manual) Nucleated RBC % Seg Neutrophils # Man Lymphocytes # (Manual) Monocytes # (Manual) PT INR D-Dimer POC ABG pH POC ABG pCO2 POC ABG pO2 Sodium Potassium 7.0 H* D 7.3 H* Chloride 97.5 L Carbon Dioxide 10 L 7 L* BUN 22 H 23 H Creatinine 1.7 H 2.0 H Glucose 223 H 222 H POC Glucose Hemoglobin A1c Lactic Acid 19.80 H* Calcium 8.1 L Magnesium Total Bilirubin Direct Bilirubin AST 107 H 223 H ALT Alkaline Phosphatase 208 H 209 H Total Creatine Kinase CK-MB (CK-2) Troponin T NT-Pro-B Natriuret Pep Total Protein 5.9 L Albumin 2.7 L 2.5 L Triglycerides LDL Cholesterol Direct HDL Cholesterol Urine WBC (Auto) Crossmatch 03/01/19 03/01/19 03/01/19 04:07 04:07 04:07 WBC RBC Hgb Hct MCHC RDW Plt Count Seg Neuts % (Manual) Lymphocytes % (Manual) Monocytes % (Manual) Nucleated RBC % Seg Neutrophils # Man Lymphocytes # (Manual) Monocytes # (Manual) PT INR D-Dimer POC ABG pH POC ABG pCO2 POC ABG pO2 Sodium Potassium 6.1 H* Chloride Carbon Dioxide 6 L* BUN 22 H Creatinine 2.0 H Glucose 269 H POC Glucose Hemoglobin A1c Lactic Acid 22.60 H* Calcium 6.9 L Magnesium Total Bilirubin Direct Bilirubin AST 1971 H ALT 686 H Alkaline Phosphatase 193 H Total Creatine Kinase CK-MB (CK-2) Troponin T 2.910 H* D NT-Pro-B Natriuret Pep Total Protein 4.6 L D Albumin 2.0 L Triglycerides LDL Cholesterol Direct HDL Cholesterol Urine WBC (Auto) Crossmatch 03/01/19 03/01/19 03/01/19 04:45 05:03 05:38 WBC RBC 1.78 L Hgb 5.0 L* Hct 17.4 L* MCHC 29 L RDW 18.3 H Plt Count Seg Neuts % (Manual) 78.0 H Lymphocytes % (Manual) Monocytes % (Manual) Nucleated RBC % 2.0 H Seg Neutrophils # Man Lymphocytes # (Manual) Monocytes # (Manual) PT INR D-Dimer POC ABG pH 6.806 L 6.895 L POC ABG pCO2 POC ABG pO2 54 L 213 H Sodium Potassium Chloride Carbon Dioxide BUN Creatinine Glucose POC Glucose Hemoglobin A1c Lactic Acid Calcium Magnesium Total Bilirubin Direct Bilirubin AST ALT Alkaline Phosphatase Total Creatine Kinase CK-MB (CK-2) Troponin T NT-Pro-B Natriuret Pep Total Protein Albumin Triglycerides LDL Cholesterol Direct HDL Cholesterol Urine WBC (Auto) Crossmatch 03/01/19 03/01/19 03/01/19 05:38 06:03 07:29 WBC RBC Hgb Hct MCHC RDW Plt Count Seg Neuts % (Manual) Lymphocytes % (Manual) Monocytes % (Manual) Nucleated RBC % Seg Neutrophils # Man Lymphocytes # (Manual) Monocytes # (Manual) PT INR D-Dimer POC ABG pH POC ABG pCO2 POC ABG pO2 Sodium Potassium Chloride Carbon Dioxide BUN Creatinine Glucose POC Glucose 310 H Hemoglobin A1c Lactic Acid 23.40 H* 24.70 H* Calcium Magnesium Total Bilirubin Direct Bilirubin AST ALT Alkaline Phosphatase Total Creatine Kinase CK-MB (CK-2) Troponin T NT-Pro-B Natriuret Pep Total Protein Albumin Triglycerides LDL Cholesterol Direct HDL Cholesterol Urine WBC (Auto) Crossmatch 03/01/19 03/01/19 03/01/19 07:30 11:38 12:02 WBC RBC Hgb Hct MCHC RDW Plt Count Seg Neuts % (Manual) Lymphocytes % (Manual) Monocytes % (Manual) Nucleated RBC % Seg Neutrophils # Man Lymphocytes # (Manual) Monocytes # (Manual) PT INR D-Dimer POC ABG pH POC ABG pCO2 POC ABG pO2 Sodium Potassium 6.3 H* Chloride Carbon Dioxide BUN Creatinine Glucose POC Glucose 326 H Hemoglobin A1c Lactic Acid Calcium Magnesium Total Bilirubin Direct Bilirubin AST ALT Alkaline Phosphatase Total Creatine Kinase CK-MB (CK-2) Troponin T NT-Pro-B Natriuret Pep Total Protein Albumin Triglycerides LDL Cholesterol Direct HDL Cholesterol Urine WBC (Auto) Crossmatch See Detail 03/01/19 03/01/19 03/01/19 12:30 17:34 20:24 WBC RBC Hgb Hct MCHC RDW Plt Count Seg Neuts % (Manual) Lymphocytes % (Manual) Monocytes % (Manual) Nucleated RBC % Seg Neutrophils # Man Lymphocytes # (Manual) Monocytes # (Manual) PT INR D-Dimer POC ABG pH 6.960 L 7.101 L POC ABG pCO2 32.7 L POC ABG pO2 117 H 109 H Sodium Potassium 6.2 H* Chloride Carbon Dioxide BUN Creatinine Glucose POC Glucose Hemoglobin A1c Lactic Acid Calcium Magnesium Total Bilirubin Direct Bilirubin AST ALT Alkaline Phosphatase Total Creatine Kinase CK-MB (CK-2) Troponin T NT-Pro-B Natriuret Pep Total Protein Albumin Triglycerides LDL Cholesterol Direct HDL Cholesterol Urine WBC (Auto) Crossmatch 03/01/19 03/01/19 03/01/19 20:24 21:39 22:45 WBC RBC Hgb 8.9 L D Hct 28.2 L D MCHC RDW Plt Count Seg Neuts % (Manual) Lymphocytes % (Manual) Monocytes % (Manual) Nucleated RBC % Seg Neutrophils # Man Lymphocytes # (Manual) Monocytes # (Manual) PT INR D-Dimer POC ABG pH POC ABG pCO2 POC ABG pO2 Sodium Potassium 5.9 H Chloride 93.0 L Carbon Dioxide 16 L D BUN 28 H Creatinine 2.8 H Glucose 617 H* POC Glucose > 500 H Hemoglobin A1c Lactic Acid Calcium 6.2 L Magnesium Total Bilirubin Direct Bilirubin AST ALT Alkaline Phosphatase Total Creatine Kinase CK-MB (CK-2) Troponin T NT-Pro-B Natriuret Pep Total Protein Albumin Triglycerides LDL Cholesterol Direct HDL Cholesterol Urine WBC (Auto) Crossmatch 03/02/19 03/02/19 03/02/19 01:42 04:20 04:20 WBC 13.0 H RBC 2.47 L Hgb 7.0 L Hct 22.8 L MCHC RDW 18.4 H Plt Count Seg Neuts % (Manual) 95.0 H Lymphocytes % (Manual) 0 L Monocytes % (Manual) Nucleated RBC % 8.0 H Seg Neutrophils # Man 12.4 H Lymphocytes # (Manual) 0.0 L Monocytes # (Manual) PT INR D-Dimer POC ABG pH POC ABG pCO2 POC ABG pO2 Sodium 132 L Potassium Chloride 85.5 L Carbon Dioxide 21 L BUN 27 H Creatinine 2.8 H Glucose 928 H* POC Glucose > 500 H Hemoglobin A1c Lactic Acid Calcium 6.1 L Magnesium Total Bilirubin 2.00 H Direct Bilirubin AST 7855 H ALT 2210 H Alkaline Phosphatase 238 H Total Creatine Kinase CK-MB (CK-2) Troponin T 13.790 H* D NT-Pro-B Natriuret Pep Total Protein 4.0 L Albumin 1.7 L Triglycerides LDL Cholesterol Direct HDL Cholesterol Urine WBC (Auto) Crossmatch 03/02/19 03/02/19 05:04 05:25 WBC RBC Hgb Hct MCHC RDW Plt Count Seg Neuts % (Manual) Lymphocytes % (Manual) Monocytes % (Manual) Nucleated RBC % Seg Neutrophils # Man Lymphocytes # (Manual) Monocytes # (Manual) PT INR D-Dimer POC ABG pH POC ABG pCO2 33.8 L POC ABG pO2 Sodium Potassium Chloride Carbon Dioxide BUN Creatinine Glucose POC Glucose > 500 H Hemoglobin A1c Lactic Acid Calcium Magnesium Total Bilirubin Direct Bilirubin AST ALT Alkaline Phosphatase Total Creatine Kinase CK-MB (CK-2) Troponin T NT-Pro-B Natriuret Pep Total Protein Albumin Triglycerides LDL Cholesterol Direct HDL Cholesterol Urine WBC (Auto) Crossmatch Allied health notes reviewed: nursing
[2019-03-02] MEDS ORDERED: NACL 0.9% 1000 ML ONE (09:43)
[2019-03-02] MEDS ORDERED: LASIX IV ONE (10:00)
--- NOTE | 2019-03-02 10:23 | Progress Note ---
Assessment and Plan Pt nonresponsive, off sedation, subacute infarcts noted on head CT. Yonatan significantly elevated, f/u ECG with no acute changes. Heparin gtt d/c'd in setting of severe anemia. Await f/u limited echo. Renal and liver function worsening, BG 900s this AM, insulin gtt initiated. Cont supportive measures, vasopressor support. Overall poor prognosis. The patient has been seen in conjunction with Dr. Bhakta who agrees with the assessment and plan of care. - Patient Problems (1) Cardiopulmonary arrest with successful resuscitation Current Visit: Yes Status: Acute (2) Acute heart failure with preserved ejection fraction Current Visit: Yes Status: Acute (3) NSTEMI (non-ST elevated myocardial infarction) Current Visit: Yes Status: Acute (4) Acute respiratory failure Current Visit: Yes Status: Acute (5) GERALDINE (acute kidney injury) Current Visit: Yes Status: Acute (6) Hyperkalemia Current Visit: Yes Status: Acute (7) Sepsis Current Visit: Yes Status: Suspected Qualifiers: Sepsis type: sepsis due to unspecified organism Qualified Code(s): A41.9 - Sepsis, unspecified organism (8) Severe anemia Current Visit: Yes Status: Acute (9) Peripheral vascular disease Current Visit: Yes Status: Chronic (10) 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 Objective Last Vital Signs Temp 98.1 F 03/02/19 08:00 Pulse 91 H 03/02/19 09:00 Resp 32 H 03/02/19 09:00 BP 112/61 03/02/19 09:00 Pulse Ox 100 03/02/19 09:00 - Physical Examination General: Other (intubated, nonresponsive) Cardiac: Positive: Reg Rate and Rhythm, S1/S2 Lungs: Positive: Decreased Breath Sounds Neuro: Positive: Other (intubated, nonresponsive) Skin: Positive: Other (RLE gangrene). Negative: Rash Extremities: Present: +2 Edema (RLE > LLE) - Labs and Meds Cardiac Enzymes 03/02/19 Range/Units 04:20 AST 7855 H (5-40) units/L CBC 03/01/19 03/02/19 Range/Units 20:24 04:20 WBC 13.0 H (4.5-11.0) K/mm3 RBC 2.47 L (3.65-5.03) M/mm3 Hgb 8.9 L D 7.0 L (10.1-14.3) gm/dl Hct 28.2 L D 22.8 L (30.3-42.9) % Plt Count 233 (140-440) K/mm3 Comprehensive Metabolic Panel 03/01/19 03/01/19 03/01/19 Range/Units 11:38 20:24 22:45 Sodium 137 (137-145) mmol/L Potassium 6.3 H* 6.2 H* 5.9 H (3.6-5.0) mmol/L Chloride 93.0 L (98-107) mmol/L Carbon Dioxide 16 L D (22-30) mmol/L BUN 28 H (7-17) mg/dL Creatinine 2.8 H (0.7-1.2) mg/dL Glucose 617 H* (65-100) mg/dL Calcium 6.2 L (8.4-10.2) mg/dL AST (5-40) units/L ALT (7-56) units/L Alkaline Phosphatase (35-129) units/L Total Protein (6.3-8.2) g/dL Albumin (3.9-5) g/dL 03/02/19 Range/Units 04:20 Sodium 132 L (137-145) mmol/L Potassium 4.9 (3.6-5.0) mmol/L Chloride 85.5 L (98-107) mmol/L Carbon Dioxide 21 L (22-30) mmol/L BUN 27 H (7-17) mg/dL Creatinine 2.8 H (0.7-1.2) mg/dL Glucose 928 H* (65-100) mg/dL Calcium 6.1 L (8.4-10.2) mg/dL AST 7855 H (5-40) units/L ALT 2210 H (7-56) units/L Alkaline Phosphatase 238 H (35-129) units/L Total Protein 4.0 L (6.3-8.2) g/dL Albumin 1.7 L (3.9-5) g/dL - Imaging and Cardiology EKG: report reviewed, image reviewed Echo: report reviewed (02/14/2019 showed EF 55-60%, mild LVH, mild with peak gradient 24 and mean 11, mild AR. ) - Telemetry EKG Rhythm: Sinus Rhythm - EKG Sinus rhythms and dysrhythmias: sinus rhythm - Allied health notes Allied health notes reviewed: nursing
[2019-03-02] MEDS: ASPIRIN PO SCH (11:01)
[2019-03-02] MEDS: PEPCID IV SCH (11:01)
[2019-03-02] MEDS ORDERED: CATHFLO IV ONE (12:00)
[2019-03-02] MEDS: MAXIPIME/NS 2 GM/100 ML 2 GM/100 ML BAG IV SCH (15:25)
[2019-03-02] MEDS ORDERED: APRESOLINE IV PRN (15:28)
--- NOTE | 2019-03-02 15:45 | Gastroenterology Consultation ---
History of Present Illness - Reason for Consult Consult date: 03/02/19 anemia Requesting physician: NATALIE GLEZ - History of Present Illness This is a 58 yo female with pmh of DM, HTN, and peripheral vascular disease recently admitted due to right toe gangrene s/p R lower extremity thrombolysis and compartment fasciotomy on 01/29/2019 and admitted with bacteremia due to UTI. Became acutely short of breath and transferred to ICU and subsequently intubated and had asystole/CODE blue called on 03/01/2019. ROSC obtained. Found to have anemia with Hgb down to 5 post code from 6.5 on 02/28/2019. GI consulted for anemia. Patient also noted to have new nonhemorrhagic infarct of cerebellum on CT head. Started on pressors for shock and insulin drip for hyperglycemia. Per nursing, no blood in the stool or melena noted. Per family, no symptoms of overt GI bleeding including blood in the stool or melena noted prior to the admission or to the cardiac arrest. 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 denies: smoking, alcohol abuse, prescription drug abuse, IV drug use Medications and Allergies Allergies Allergy/AdvReac Type Severity Reaction Status Date / Time No Known Allergies Allergy Verified 01/28/19 21:26 Home Medications Medication Instructions Recorded Confirmed Last Taken Type Aspirin [Low Dose Aspirin EC] 81 mg PO DAILY #30 tablet. 02/04/19 02/16/19 02/14/19 10:00 Rx Clopidogrel [Plavix] 75 mg PO QDAY #30 tablet 02/04/19 02/16/19 02/14/19 10:00 Rx Lispro Insulin [Humalog] 0 unit SUB-Q ACHS units 02/20/19 Unknown Rx Lispro Insulin [Humalog] 5 unit SUB-Q AC 30 Days units 02/20/19 Unknown Rx Multivitamin with Iron [Tab-A-Lupe 1 each PO DAILY #30 tablet 02/20/19 Unknown Rx with Iron] Valsartan [Diovan] 160 mg PO BID #60 tablet 02/20/19 Unknown Rx oxyCODONE /ACETAMINOPHEN [Percocet 1 tab PO Q6H PRN #20 tablet 02/20/19 Unknown Rx 5/325 mg] Insulin Glargine [Lantus VIAL] 22 units SUB-Q DAILY #1 vial 02/25/19 Unknown Rx Insulin Lispro [HumaLOG VIAL] 0 units SQ AC #1 vial 02/25/19 Unknown Rx Active Meds: Active Medications Acetaminophen (Tylenol) 650 mg PO Q4H PRN PRN Reason: Pain MILD(1-3)/Fever >100.5/MARTÍNEZ Albuterol (Proventil) 2.5 mg IH Q6HRT PRN PRN Reason: Shortness Of Breath Last Admin: 02/28/19 16:08 Dose: 2.5 mg Documented by: Albuterol/Ipratropium (Duoneb *Not For Prn Use*) 1 ampul IH Q6HRT [facility] Last Admin: 03/02/19 14:56 Dose: Not Given Documented by: Aspirin (Aspirin) 325 mg PO QDAY [facility] Last Admin: 03/02/19 11:01 Dose: 325 mg Documented by: Atorvastatin Calcium (Lipitor) 40 mg PO QHS [facility] Dextrose (D50w (25gm) Syringe) 50 ml IV PRN PRN PRN Reason: Hypoglycemia Famotidine (Pepcid) 20 mg IV DAILY [facility] Last Admin: 03/02/19 11:01 Dose: 20 mg Documented by: Fentanyl (Sublimaze) 50 mcg IV Q10MIN PRN PRN Reason: ANALGESIA Hydralazine HCl (Apresoline) 10 mg IV Q4HR PRN PRN Reason: BP >180/110 Hydrophilic Ointment (Vaseline Lip Therapy) 1 applic TP Q2HR PRN PRN Reason: Dry Lips Fentanyl Citrate (Fentanyl Drip Premix) 2,000 mcg in 100 mls @ 5.665 mls/hr IV TITR [facility]; Protocol Last Titration: 03/01/19 00:46 Dose: 0 mcg/kg/hr, 0 mls/hr Documented by: Norepinephrine (Levophed Drip 4 Mg/Ns 250 Ml) 4 mg in 250 mls @ 7.5 mls/hr IV TITR [facility]; Protocol Last Admin: 03/02/19 13:50 Dose: 2 mcg/min, 7.5 mls/hr Documented by: Dopamine HCl/Dextrose (Intropin Drip 800 Mg/D5w 250 Ml) 800 mg in 250 mls @ 4.249 mls/hr IV TITR [facility]; Protocol Last Titration: 03/02/19 00:13 Dose: 0 mcg/kg/min, 0 mls/hr Documented by: Cefepime HCl (Maxipime/Ns 2 Gm/100 Ml) 2 gm in 100 mls @ 200 mls/hr IV Q24HR [facility]; Protocol Last Admin: 03/02/19 15:25 Dose: 200 mls/hr Documented by: Insulin Human Regular 100 (units/ Sodium Chloride) 100 mls @ 1 mls/hr IV TITR [facility]; Protocol Last Admin: 03/02/19 15:34 Dose: 16 units/hr, 16 mls/hr Documented by: Sodium Chloride (Nacl 0.9% 1000 Ml) 1,000 mls @ 42 mls/hr IV DIRECT [facility] Ondansetron HCl (Zofran) 4 mg IV Q8H PRN PRN Reason: Nausea And Vomiting Sodium Chloride (Sodium Chloride Flush Syringe 10 Ml) 10 ml IV BID [facility] Last Admin: 03/02/19 11:03 Dose: 10 ml Documented by: Sodium Chloride (Sodium Chloride Flush Syringe 10 Ml) 10 ml IV PRN PRN PRN Reason: LINE FLUSH Review of Systems - Review of Systems ROS unobtainable: due to endotracheal tube, due to mental status Exam - Constitutional Vital Signs: Temp Pulse Resp BP Pulse Ox 98.3 F 91 H 22 115/64 100 03/02/19 12:00 03/02/19 15:00 03/02/19 15:00 03/02/19 15:00 03/02/19 15:00 General appearance: obese, other (intubated) - Respiratory Respiratory: bilateral: diminished (over the vent) - Cardiovascular Rhythm: regular Heart Sounds: Present: S1 & S2 - Gastrointestinal General gastrointestinal: Present: soft, non-tender, distended, normal bowel sounds - Integumentary Integumentary: Present: warm - Neurologic Neurological: other (sedated and intubated) - Labs CBC & Chem 7: 03/02/19 04:20 03/02/19 04:20 Lab Results: Laboratory Results - last 24 hr 03/01/19 03/01/19 03/01/19 07:30 12:30 17:34 WBC RBC Hgb Hct MCV MCH MCHC RDW Plt Count Add Manual Diff Total Counted Seg Neuts % (Manual) Band Neutrophils % Lymphocytes % (Manual) Reactive Lymphs % (Man) Monocytes % (Manual) Eosinophils % (Manual) Basophils % (Manual) Metamyelocytes % Myelocytes % Promyelocytes % Blast Cells % Nucleated RBC % Seg Neutrophils # Man Band Neutrophils # Lymphocytes # (Manual) Abs React Lymphs (Man) Monocytes # (Manual) Eosinophils # (Manual) Basophils # (Manual) Metamyelocytes # Myelocytes # Promyelocytes # Blast Cells # WBC Morphology Hypersegmented Neuts Hyposegmented Neuts Hypogranular Neuts Smudge Cells Toxic Granulation Toxic Vacuolation Dohle Bodies Pelger-Huet Anomaly Cisco Rods Platelet Estimate Clumped Platelets Plt Clumps, EDTA Large Platelets Giant Platelets Platelet Satelliting Plt Morphology Comment RBC Morphology Dimorphic RBCs Polychromasia Hypochromasia Poikilocytosis Anisocytosis Microcytosis Macrocytosis Spherocytes Pappenheimer Bodies Sickle Cells Target Cells Tear Drop Cells Ovalocytes Helmet Cells Star[place] Bodies [place] Rings [place] Cells Bite Cells Crenated Cell Elliptocytes Acanthocytes (Spur) Rouleaux Hemoglobin C Crystals Schistocytes Malaria parasites Augusto Bodies Hem Pathologist Commnt POC ABG pH 6.960 L 7.101 L POC ABG pCO2 32.7 L POC ABG pO2 117 H 109 H POC ABG HCO3 6.4 10.2 POC ABG Total CO2 7 11 POC ABG O2 Sat 95 96 POC ABG Base Excess -26 -19 FiO2 100 100 Sodium Potassium Chloride Carbon Dioxide Anion Gap BUN Creatinine Estimated GFR BUN/Creatinine Ratio Glucose POC Glucose Calcium Total Bilirubin AST ALT Alkaline Phosphatase Troponin T Total Protein Albumin Albumin/Globulin Ratio Blood Type B POSITIVE Antibody Screen Negative Crossmatch See Detail 03/01/19 03/01/19 03/01/19 18:26 20:24 20:24 WBC RBC Hgb 8.9 L D Hct 28.2 L D MCV MCH MCHC RDW Plt Count Add Manual Diff Total Counted Seg Neuts % (Manual) Band Neutrophils % Lymphocytes % (Manual) Reactive Lymphs % (Man) Monocytes % (Manual) Eosinophils % (Manual) Basophils % (Manual) Metamyelocytes % Myelocytes % Promyelocytes % Blast Cells % Nucleated RBC % Seg Neutrophils # Man Band Neutrophils # Lymphocytes # (Manual) Abs React Lymphs (Man) Monocytes # (Manual) Eosinophils # (Manual) Basophils # (Manual) Metamyelocytes # Myelocytes # Promyelocytes # Blast Cells # WBC Morphology Hypersegmented Neuts Hyposegmented Neuts Hypogranular Neuts Smudge Cells Toxic Granulation Toxic Vacuolation Dohle Bodies Pelger-Huet Anomaly Cisco Rods Platelet Estimate Clumped Platelets Plt Clumps, EDTA Large Platelets Giant Platelets Platelet Satelliting Plt Morphology Comment RBC Morphology Dimorphic RBCs Polychromasia Hypochromasia Poikilocytosis Anisocytosis Microcytosis Macrocytosis Spherocytes Pappenheimer Bodies Sickle Cells Target Cells Tear Drop Cells Ovalocytes Helmet Cells Star[place] Bodies [place] Rings [place] Cells Bite Cells Crenated Cell Elliptocytes Acanthocytes (Spur) Rouleaux Hemoglobin C Crystals Schistocytes Malaria parasites Augusto Bodies Hem Pathologist Commnt POC ABG pH POC ABG pCO2 POC ABG pO2 POC ABG HCO3 POC ABG Total CO2 POC ABG O2 Sat POC ABG Base Excess FiO2 Sodium Potassium 6.2 H* Chloride Carbon Dioxide Anion Gap BUN Creatinine Estimated GFR BUN/Creatinine Ratio Glucose POC Glucose 434 H Calcium Total Bilirubin AST ALT Alkaline Phosphatase Troponin T Total Protein Albumin Albumin/Globulin Ratio Blood Type Antibody Screen Crossmatch 03/01/19 03/01/19 03/02/19 21:39 22:45 01:42 WBC RBC Hgb Hct MCV MCH MCHC RDW Plt Count Add Manual Diff Total Counted Seg Neuts % (Manual) Band Neutrophils % Lymphocytes % (Manual) Reactive Lymphs % (Man) Monocytes % (Manual) Eosinophils % (Manual) Basophils % (Manual) Metamyelocytes % Myelocytes % Promyelocytes % Blast Cells % Nucleated RBC % Seg Neutrophils # Man Band Neutrophils # Lymphocytes # (Manual) Abs React Lymphs (Man) Monocytes # (Manual) Eosinophils # (Manual) Basophils # (Manual) Metamyelocytes # Myelocytes # Promyelocytes # Blast Cells # WBC Morphology Hypersegmented Neuts Hyposegmented Neuts Hypogranular Neuts Smudge Cells Toxic Granulation Toxic Vacuolation Dohle Bodies Pelger-Huet Anomaly Cisco Rods Platelet Estimate Clumped Platelets Plt Clumps, EDTA Large Platelets Giant Platelets Platelet Satelliting Plt Morphology Comment RBC Morphology Dimorphic RBCs Polychromasia Hypochromasia Poikilocytosis Anisocytosis Microcytosis Macrocytosis Spherocytes Pappenheimer Bodies Sickle Cells Target Cells Tear Drop Cells Ovalocytes Helmet Cells Star[place] Bodies [place] Rings [place] Cells Bite Cells Crenated Cell Elliptocytes Acanthocytes (Spur) Rouleaux Hemoglobin C Crystals Schistocytes Malaria parasites Augusto Bodies Hem Pathologist Commnt POC ABG pH POC ABG pCO2 POC ABG pO2 POC ABG HCO3 POC ABG Total CO2 POC ABG O2 Sat POC ABG Base Excess FiO2 Sodium 137 Potassium 5.9 H Chloride 93.0 L Carbon Dioxide 16 L D Anion Gap 34 BUN 28 H Creatinine 2.8 H Estimated GFR 21 BUN/Creatinine Ratio 10 Glucose 617 H* POC Glucose > 500 H > 500 H Calcium 6.2 L Total Bilirubin AST ALT Alkaline Phosphatase Troponin T Total Protein Albumin Albumin/Globulin Ratio Blood Type Antibody Screen Crossmatch 03/02/19 03/02/19 03/02/19 04:20 04:20 05:04 WBC 13.0 H RBC 2.47 L Hgb 7.0 L Hct 22.8 L MCV 92 MCH 28 MCHC 31 RDW 18.4 H Plt Count 233 Add Manual Diff Complete Total Counted 100 Seg Neuts % (Manual) 95.0 H Band Neutrophils % 5.0 Lymphocytes % (Manual) 0 L Reactive Lymphs % (Man) 0 Monocytes % (Manual) 0 Eosinophils % (Manual) 0 Basophils % (Manual) 0 Metamyelocytes % 0 Myelocytes % 0 Promyelocytes % 0 Blast Cells % 0 Nucleated RBC % 8.0 H Seg Neutrophils # Man 12.4 H Band Neutrophils # 0.7 Lymphocytes # (Manual) 0.0 L Abs React Lymphs (Man) 0.0 Monocytes # (Manual) 0.0 Eosinophils # (Manual) 0.0 Basophils # (Manual) 0.0 Metamyelocytes # 0.0 Myelocytes # 0.0 Promyelocytes # 0.0 Blast Cells # 0.0 WBC Morphology Not Reportable Hypersegmented Neuts Not Reportable Hyposegmented Neuts Not Reportable Hypogranular Neuts Not Reportable Smudge Cells Not Reportable Toxic Granulation Not Reportable Toxic Vacuolation Not Reportable Dohle Bodies Not Reportable Pelger-Huet Anomaly Not Reportable Cisco Rods Not Reportable Platelet Estimate Cons Clumped Platelets Few Plt Clumps, EDTA Not Reportable Large Platelets Not Reportable Giant Platelets Not Reportable Platelet Satelliting Not Reportable Plt Morphology Comment Not Reportable RBC Morphology Not Reportable Dimorphic RBCs Not Reportable Polychromasia Not Reportable Hypochromasia Not Reportable Poikilocytosis Not Reportable Anisocytosis 1+ Microcytosis Not Reportable Macrocytosis Not Reportable Spherocytes Not Reportable Pappenheimer Bodies Not Reportable Sickle Cells Not Reportable Target Cells Not Reportable Tear Drop Cells Not Reportable Ovalocytes Not Reportable Helmet Cells Not Reportable Star[place] Bodies Not Reportable [place] Rings Not Reportable [place]ipul Cells Not Reportable Bite Cells Not Reportable Crenated Cell Not Reportable Elliptocytes Not Reportable Acanthocytes (Spur) Not Reportable Rouleaux Not Reportable Hemoglobin C Crystals Not Reportable Schistocytes Not Reportable Malaria parasites Not Reportable Augusto Bodies Not Reportable Hem Pathologist Commnt No POC ABG pH POC ABG pCO2 POC ABG pO2 POC ABG HCO3 POC ABG Total CO2 POC ABG O2 Sat POC ABG Base Excess FiO2 Sodium 132 L Potassium 4.9 Chloride 85.5 L Carbon Dioxide 21 L Anion Gap 30 BUN 27 H Creatinine 2.8 H Estimated GFR 21 BUN/Creatinine Ratio 10 Glucose 928 H* POC Glucose > 500 H Calcium 6.1 L Total Bilirubin 2.00 H AST 7855 H ALT 2210 H Alkaline Phosphatase 238 H Troponin T 13.790 H* D Total Protein 4.0 L Albumin 1.7 L Albumin/Globulin Ratio 0.7 Blood Type Antibody Screen Crossmatch 03/02/19 03/02/19 03/02/19 05:25 09:11 10:10 WBC RBC Hgb Hct MCV MCH MCHC RDW Plt Count Add Manual Diff Total Counted Seg Neuts % (Manual) Band Neutrophils % Lymphocytes % (Manual) Reactive Lymphs % (Man) Monocytes % (Manual) Eosinophils % (Manual) Basophils % (Manual) Metamyelocytes % Myelocytes % Promyelocytes % Blast Cells % Nucleated RBC % Seg Neutrophils # Man Band Neutrophils # Lymphocytes # (Manual) Abs React Lymphs (Man) Monocytes # (Manual) Eosinophils # (Manual) Basophils # (Manual) Metamyelocytes # Myelocytes # Promyelocytes # Blast Cells # WBC Morphology Hypersegmented Neuts Hyposegmented Neuts Hypogranular Neuts Smudge Cells Toxic Granulation Toxic Vacuolation Dohle Bodies Pelger-Huet Anomaly Cisco Rods Platelet Estimate Clumped Platelets Plt Clumps, EDTA Large Platelets Giant Platelets Platelet Satelliting Plt Morphology Comment RBC Morphology Dimorphic RBCs Polychromasia Hypochromasia Poikilocytosis Anisocytosis Microcytosis Macrocytosis Spherocytes Pappenheimer Bodies Sickle Cells Target Cells Tear Drop Cells Ovalocytes Helmet Cells Star[place] Bodies [place] Rings [place] Cells Bite Cells Crenated Cell Elliptocytes Acanthocytes (Spur) Rouleaux Hemoglobin C Crystals Schistocytes Malaria parasites Augusto Bodies Hem Pathologist Commnt POC ABG pH 7.358 POC ABG pCO2 33.8 L POC ABG pO2 102 POC ABG HCO3 19.0 POC ABG Total CO2 20 POC ABG O2 Sat 98 POC ABG Base Excess -6 FiO2 100 Sodium Potassium Chloride Carbon Dioxide Anion Gap BUN Creatinine Estimated GFR BUN/Creatinine Ratio Glucose POC Glucose 494 H > 500 H Calcium Total Bilirubin AST ALT Alkaline Phosphatase Troponin T Total Protein Albumin Albumin/Globulin Ratio Blood Type Antibody Screen Crossmatch 03/02/19 03/02/19 03/02/19 11:19 12:05 13:00 WBC RBC Hgb Hct MCV MCH MCHC RDW Plt Count Add Manual Diff Total Counted Seg Neuts % (Manual) Band Neutrophils % Lymphocytes % (Manual) Reactive Lymphs % (Man) Monocytes % (Manual) Eosinophils % (Manual) Basophils % (Manual) Metamyelocytes % Myelocytes % Promyelocytes % Blast Cells % Nucleated RBC % Seg Neutrophils # Man Band Neutrophils # Lymphocytes # (Manual) Abs React Lymphs (Man) Monocytes # (Manual) Eosinophils # (Manual) Basophils # (Manual) Metamyelocytes # Myelocytes # Promyelocytes # Blast Cells # WBC Morphology Hypersegmented Neuts Hyposegmented Neuts Hypogranular Neuts Smudge Cells Toxic Granulation Toxic Vacuolation Dohle Bodies Pelger-Huet Anomaly Cisco Rods Platelet Estimate Clumped Platelets Plt Clumps, EDTA Large Platelets Giant Platelets Platelet Satelliting Plt Morphology Comment RBC Morphology Dimorphic RBCs Polychromasia Hypochromasia Poikilocytosis Anisocytosis Microcytosis Macrocytosis Spherocytes Pappenheimer Bodies Sickle Cells Target Cells Tear Drop Cells Ovalocytes Helmet Cells Star[place] Bodies [place] Rings [place] Cells Bite Cells Crenated Cell Elliptocytes Acanthocytes (Spur) Rouleaux Hemoglobin C Crystals Schistocytes Malaria parasites Augusto Bodies Hem Pathologist Commnt POC ABG pH POC ABG pCO2 POC ABG pO2 POC ABG HCO3 POC ABG Total CO2 POC ABG O2 Sat POC ABG Base Excess FiO2 Sodium Potassium Chloride Carbon Dioxide Anion Gap BUN Creatinine Estimated GFR BUN/Creatinine Ratio Glucose POC Glucose 413 H 400 H 391 H Calcium Total Bilirubin AST ALT Alkaline Phosphatase Troponin T Total Protein Albumin Albumin/Globulin Ratio Blood Type Antibody Screen Crossmatch 03/02/19 03/02/19 14:00 15:12 WBC RBC Hgb Hct MCV MCH MCHC RDW Plt Count Add Manual Diff Total Counted Seg Neuts % (Manual) Band Neutrophils % Lymphocytes % (Manual) Reactive Lymphs % (Man) Monocytes % (Manual) Eosinophils % (Manual) Basophils % (Manual) Metamyelocytes % Myelocytes % Promyelocytes % Blast Cells % Nucleated RBC % Seg Neutrophils # Man Band Neutrophils # Lymphocytes # (Manual) Abs React Lymphs (Man) Monocytes # (Manual) Eosinophils # (Manual) Basophils # (Manual) Metamyelocytes # Myelocytes # Promyelocytes # Blast Cells # WBC Morphology Hypersegmented Neuts Hyposegmented Neuts Hypogranular Neuts Smudge Cells Toxic Granulation Toxic Vacuolation Dohle Bodies Pelger-Huet Anomaly Cisco Rods Platelet Estimate Clumped Platelets Plt Clumps, EDTA Large Platelets Giant Platelets Platelet Satelliting Plt Morphology Comment RBC Morphology Dimorphic RBCs Polychromasia Hypochromasia Poikilocytosis Anisocytosis Microcytosis Macrocytosis Spherocytes Pappenheimer Bodies Sickle Cells Target Cells Tear Drop Cells Ovalocytes Helmet Cells Star[place] Bodies [place] Rings [place] Cells Bite Cells Crenated Cell Elliptocytes Acanthocytes (Spur) Rouleaux Hemoglobin C Crystals Schistocytes Malaria parasites Augusto Bodies Hem Pathologist Commnt POC ABG pH POC ABG pCO2 POC ABG pO2 POC ABG HCO3 POC ABG Total CO2 POC ABG O2 Sat POC ABG Base Excess FiO2 Sodium Potassium Chloride Carbon Dioxide Anion Gap BUN Creatinine Estimated GFR BUN/Creatinine Ratio Glucose POC Glucose 415 H 405 H Calcium Total Bilirubin AST ALT Alkaline Phosphatase Troponin T Total Protein Albumin Albumin/Globulin Ratio Blood Type Antibody Screen Crossmatch - Imaging CT Scan: report reviewed Assessment and Plan This is a 58 yo female with pmh of DM, HTN, and peripheral vascular disease recently admitted due to right toe gangrene s/p R lower extremity thrombolysis and compartment fasciotomy on 01/29/2019 and admitted with bacteremia due to UTI. Became acutely short of breath and transferred to ICU and subsequently intubated and had asystole/CODE blue called on 03/01/2019. ROSC obtained. Found to have anemia with Hgb down to 5 post code from 6.5 on 02/28/2019. GI consulted for anemia. # Anemia - noted to have hgb down to 5 post cardiac arrest from previous check at 6.5 on 02/28/2019 and at 7.5 on 02/19/2019. s/p 2 units of PRBCs and Hgb at 7 this morning. - no overt signs of GI bleeding. - reviewed CT abdomen/pelvis without signs of bowel obstruction. Rec: - no plans for endoscopy at this time given no overt signs of active GI bleeding. - recommend PPI IV bid with protonix. - monitor H/H and transfuse with Hgb goal >7. - prognosis is poor. new CVA, shock requiring pressors, sepsis, respiratory failure. - discussed with family at bedside. Reviewed patient's current medications - Patient Problems (1) Anemia Current Visit: Yes Status: Acute Qualifiers: Anemia type: unspecified type Qualified Code(s): D64.9 - Anemia, unspecified (2) Sepsis Current Visit: Yes Status: Suspected Qualifiers: Sepsis type: sepsis due to unspecified organism Qualified Code(s): A41.9 - Sepsis, unspecified organism
--- NOTE | 2019-03-02 17:08 | Vascular Lab Report ---
PROCEDURE: VL CAROTID DUPLEX BILAT TECHNIQUE: Ultrasound carotid arteries with pulsed color Doppler evaluation HISTORY: stroke COMPARISONS: FINDINGS: Right common carotid artery demonstrates normal sonographic appearance. Peak systolic velocity 66 cm/ s The right internal carotid demonstrates normal sonographic appearance. Peak systolic velocity 94 cm/s and diastolic velocity 21 cm/s The right ECA is patent There is antegrade flow within the right vertebral Left common carotid artery demonstrates normal sonographic appearance. The sella velocity 56 cm/s Normal appearance of the left ICA with peak systolic velocity 42 cm/s and diastolic velocity 17 cm/s The left ECA is patent Left vertebral artery demonstrates antegrade flow IMPRESSION: No evidence for hemodynamically significant stenosis. Less than 50% range bilaterally This document is electronically signed by Ramsey Reeder MD., March 02 2019 05:06:11 PM ET
--- NOTE | 2019-03-02 17:18 | Consultation ---
History of Present Illness Consult date: 03/02/19 Requesting physician: NATALIE GLEZ Reason for Consult: Subacute stroke History of present illness: History of present illness: The pt is a 58 female who is intubated and nonresponsive. HPI obtained per the chart and family. Pt was sent from rehab facility on 02/13/2019 for confusion and lethargy, recently admitted and had had arterial thrombolysis to [facility] for RLE ischemia, and R leg 4 compartment fasciotomy on 01/[address] Jeong. Yesterday, she started having shortness for breath and was transfered to ICU and subsequently intubated. Following intubation, she developed asystole and CODE blue called. Pt noted to have severe anemia, lactic acidosis, hyperkalemia, ARF, elevated LFTs, hypothermia, RLE gangrene, CXR with pulm edema. A NSTEMI occurred and CT brain was performed and revealed bilateral cerebellar infarcts. 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 denies: smoking, alcohol abuse, prescription drug abuse, IV drug use Medications and Allergies Allergies Allergy/AdvReac Type Severity Reaction Status Date / Time No Known Allergies Allergy Verified 01/28/19 21:26 Home Medications Medication Instructions Recorded Confirmed Last Taken Type Aspirin [Low Dose Aspirin EC] 81 mg PO DAILY #30 tablet. 02/04/19 02/16/19 02/14/19 10:00 Rx Clopidogrel [Plavix] 75 mg PO QDAY #30 tablet 02/04/19 02/16/19 02/14/19 10:00 Rx Lispro Insulin [Humalog] 0 unit SUB-Q ACHS units 02/20/19 Unknown Rx Lispro Insulin [Humalog] 5 unit SUB-Q AC 30 Days units 02/20/19 Unknown Rx Multivitamin with Iron [Tab-A-Lupe 1 each PO DAILY #30 tablet 02/20/19 Unknown Rx with Iron] Valsartan [Diovan] 160 mg PO BID #60 tablet 02/20/19 Unknown Rx oxyCODONE /ACETAMINOPHEN [Percocet 1 tab PO Q6H PRN #20 tablet 02/20/19 Unknown Rx 5/325 mg] Insulin Glargine [Lantus VIAL] 22 units SUB-Q DAILY #1 vial 02/25/19 Unknown Rx Insulin Lispro [HumaLOG VIAL] 0 units SQ AC #1 vial 02/25/19 Unknown Rx Active Meds: Active Medications Acetaminophen (Tylenol) 650 mg PO Q4H PRN PRN Reason: Pain MILD(1-3)/Fever >100.5/MARTÍNEZ Albuterol (Proventil) 2.5 mg IH Q6HRT PRN PRN Reason: Shortness Of Breath Last Admin: 02/28/19 16:08 Dose: 2.5 mg Documented by: Albuterol/Ipratropium (Duoneb *Not For Prn Use*) 1 ampul IH Q6HRT [facility] Last Admin: 03/02/19 14:56 Dose: Not Given Documented by: Aspirin (Aspirin) 325 mg PO QDAY [facility] Last Admin: 03/02/19 11:01 Dose: 325 mg Documented by: Dextrose (D50w (25gm) Syringe) 50 ml IV PRN PRN PRN Reason: Hypoglycemia Famotidine (Pepcid) 20 mg IV DAILY [facility] Last Admin: 03/02/19 11:01 Dose: 20 mg Documented by: Fentanyl (Sublimaze) 50 mcg IV Q10MIN PRN PRN Reason: ANALGESIA Hydralazine HCl (Apresoline) 10 mg IV Q4HR PRN PRN Reason: BP >180/110 Hydrophilic Ointment (Vaseline Lip Therapy) 1 applic TP Q2HR PRN PRN Reason: Dry Lips Fentanyl Citrate (Fentanyl Drip Premix) 2,000 mcg in 100 mls @ 5.665 mls/hr IV TITR [facility]; Protocol Last Titration: 03/01/19 00:46 Dose: 0 mcg/kg/hr, 0 mls/hr Documented by: Norepinephrine (Levophed Drip 4 Mg/Ns 250 Ml) 4 mg in 250 mls @ 7.5 mls/hr IV TITR RAFAEL; Protocol Last Titration: 03/02/19 17:16 Dose: 10 mcg/min, 37.5 mls/hr Documented by: Dopamine HCl/Dextrose (Intropin Drip 800 Mg/D5w 250 Ml) 800 mg in 250 mls @ 4.249 mls/hr IV TITR [facility]; Protocol Last Titration: 03/02/19 00:13 Dose: 0 mcg/kg/min, 0 mls/hr Documented by: Cefepime HCl (Maxipime/Ns 2 Gm/100 Ml) 2 gm in 100 mls @ 200 mls/hr IV Q24HR RAAFEL; Protocol Last Admin: 03/02/19 15:25 Dose: 200 mls/hr Documented by: Insulin Human Regular 100 (units/ Sodium Chloride) 100 mls @ 1 mls/hr IV TITR RAFAEL; Protocol Last Titration: 03/02/19 16:00 Dose: 14 units/hr, 14 mls/hr Documented by: Sodium Chloride (Nacl 0.9% 1000 Ml) 1,000 mls @ 42 mls/hr IV DIRECT RAFAEL Ondansetron HCl (Zofran) 4 mg IV Q8H PRN PRN Reason: Nausea And Vomiting Pantoprazole Sodium (Protonix) 40 mg IV BID RAFAEL Sodium Chloride (Sodium Chloride Flush Syringe 10 Ml) 10 ml IV BID RAFAEL Last Admin: 03/02/19 11:03 Dose: 10 ml Documented by: Sodium Chloride (Sodium Chloride Flush Syringe 10 Ml) 10 ml IV PRN PRN PRN Reason: LINE FLUSH Review of Systems ROS unobtainable: due to endotracheal tube Physical Examination - Vital Signs Vital Signs: Vital Signs Temp Pulse Resp BP Pulse Ox 98.9 F 120 H 16 98/49 97 02/13/19 13:55 02/13/19 13:55 02/13/19 13:55 02/13/19 13:55 02/13/19 13:55 - Physical Exam Narrative exam: General - Unresponsive, on ventilator, no sedation. Pressors in place. 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 When manually opened, they are yoked. Pupils 3 mm and non reactive. Corneal reflexes - absent bilaterally. Face appears symmetric. Motor - no spontaneous movement. No movement to deep pain. Reflexes - absent Sensory - no response to deep painful stimuli. Results - Laboratory Findings CBC and BMP: 03/02/19 17:13 03/02/19 04:20 Abnormal Lab Findings: Abnormal Labs 02/13/19 02/13/19 02/13/19 13:55 14:08 14:08 WBC 21.3 H RBC 3.00 L Hgb 8.5 L Hct 26.7 L MCHC RDW 16.4 H Plt Count 528 H Seg Neuts % (Manual) 89.0 H Lymphocytes % (Manual) 4.0 L Monocytes % (Manual) Nucleated RBC % 2.0 H Seg Neutrophils # Man 19.0 H Lymphocytes # (Manual) 0.9 L Monocytes # (Manual) PT INR D-Dimer POC ABG pH POC ABG pCO2 POC ABG pO2 Sodium 129 L Potassium 5.4 H Chloride 91.8 L Carbon Dioxide 17 L BUN 52 H Creatinine 2.5 H Glucose 402 H POC Glucose 389 H Hemoglobin A1c Lactic Acid Calcium Magnesium Total Bilirubin 1.50 H Direct Bilirubin 1.1 H AST 61 H ALT Alkaline Phosphatase 271 H Total Creatine Kinase CK-MB (CK-2) Troponin T NT-Pro-B Natriuret Pep Total Protein Albumin 2.3 L Triglycerides LDL Cholesterol Direct HDL Cholesterol Urine WBC (Auto) Crossmatch 02/13/19 02/13/19 02/13/19 14:15 14:15 14:20 WBC RBC Hgb Hct MCHC RDW Plt Count Seg Neuts % (Manual) Lymphocytes % (Manual) Monocytes % (Manual) Nucleated RBC % Seg Neutrophils # Man Lymphocytes # (Manual) Monocytes # (Manual) PT 15.6 H INR 1.17 H D-Dimer POC ABG pH POC ABG pCO2 POC ABG pO2 Sodium Potassium Chloride Carbon Dioxide BUN Creatinine Glucose POC Glucose Hemoglobin A1c Lactic Acid Calcium Magnesium 1.60 L Total Bilirubin Direct Bilirubin AST ALT Alkaline Phosphatase Total Creatine Kinase 1295 H CK-MB (CK-2) Troponin T 0.072 H NT-Pro-B Natriuret Pep 6167 H Total Protein Albumin Triglycerides 329 H LDL Cholesterol Direct 36 L HDL Cholesterol 17 L Urine WBC (Auto) Crossmatch 02/13/19 02/13/19 02/13/19 15:36 18:15 20:59 WBC RBC Hgb Hct MCHC RDW Plt Count Seg Neuts % (Manual) Lymphocytes % (Manual) Monocytes % (Manual) Nucleated RBC % Seg Neutrophils # Man Lymphocytes # (Manual) Monocytes # (Manual) PT INR D-Dimer POC ABG pH POC ABG pCO2 POC ABG pO2 Sodium Potassium Chloride Carbon Dioxide BUN Creatinine Glucose POC Glucose 293 H 390 H Hemoglobin A1c 9.2 H Lactic Acid Calcium Magnesium Total Bilirubin Direct Bilirubin AST ALT Alkaline Phosphatase Total Creatine Kinase CK-MB (CK-2) Troponin T NT-Pro-B Natriuret Pep Total Protein Albumin Triglycerides LDL Cholesterol Direct HDL Cholesterol Urine WBC (Auto) Crossmatch 02/14/19 02/14/19 02/14/19 07:45 08:15 08:15 WBC 23.2 H RBC 2.89 L Hgb 8.3 L Hct 25.3 L MCHC RDW 16.6 H Plt Count 457 H Seg Neuts % (Manual) 91.0 H Lymphocytes % (Manual) 3.0 L Monocytes % (Manual) Nucleated RBC % Seg Neutrophils # Man 21.1 H Lymphocytes # (Manual) 0.7 L Monocytes # (Manual) 1.2 H PT INR D-Dimer POC ABG pH POC ABG pCO2 POC ABG pO2 Sodium 126 L Potassium 5.3 H Chloride 91.5 L Carbon Dioxide 17 L BUN 65 H Creatinine 2.4 H Glucose 418 H POC Glucose Hemoglobin A1c Lactic Acid Calcium 8.2 L Magnesium 2.90 H Total Bilirubin 1.60 H Direct Bilirubin AST 47 H ALT Alkaline Phosphatase 218 H Total Creatine Kinase CK-MB (CK-2) Troponin T NT-Pro-B Natriuret Pep Total Protein 6.2 L Albumin 2.2 L Triglycerides LDL Cholesterol Direct HDL Cholesterol Urine WBC (Auto) Crossmatch 02/14/19 02/14/19 02/14/19 09:07 09:30 18:53 WBC RBC Hgb Hct MCHC RDW Plt Count Seg Neuts % (Manual) Lymphocytes % (Manual) Monocytes % (Manual) Nucleated RBC % Seg Neutrophils # Man Lymphocytes # (Manual) Monocytes # (Manual) PT INR D-Dimer POC ABG pH POC ABG pCO2 POC ABG pO2 Sodium Potassium Chloride Carbon Dioxide BUN Creatinine Glucose POC Glucose 384 H 353 H Hemoglobin A1c Lactic Acid Calcium Magnesium Total Bilirubin Direct Bilirubin AST ALT Alkaline Phosphatase Total Creatine Kinase CK-MB (CK-2) Troponin T NT-Pro-B Natriuret Pep Total Protein Albumin Triglycerides LDL Cholesterol Direct HDL Cholesterol Urine WBC (Auto) > 182.0 H Crossmatch 02/14/19 02/14/19 02/15/19 21:33 21:40 01:45 WBC RBC Hgb Hct MCHC RDW Plt Count Seg Neuts % (Manual) Lymphocytes % (Manual) Monocytes % (Manual) Nucleated RBC % Seg Neutrophils # Man Lymphocytes # (Manual) Monocytes # (Manual) PT INR D-Dimer POC ABG pH POC ABG pCO2 POC ABG pO2 Sodium Potassium Chloride Carbon Dioxide BUN Creatinine Glucose POC Glucose 404 H 360 H 299 H Hemoglobin A1c Lactic Acid Calcium Magnesium Total Bilirubin Direct Bilirubin AST ALT Alkaline Phosphatase Total Creatine Kinase CK-MB (CK-2) Troponin T NT-Pro-B Natriuret Pep Total Protein Albumin Triglycerides LDL Cholesterol Direct HDL Cholesterol Urine WBC (Auto) Crossmatch 02/15/19 02/15/19 02/15/19 05:32 05:38 11:35 WBC RBC Hgb Hct MCHC RDW Plt Count Seg Neuts % (Manual) Lymphocytes % (Manual) Monocytes % (Manual) Nucleated RBC % Seg Neutrophils # Man Lymphocytes # (Manual) Monocytes # (Manual) PT INR D-Dimer POC ABG pH POC ABG pCO2 POC ABG pO2 Sodium Potassium Chloride Carbon Dioxide BUN Creatinine Glucose POC Glucose 402 H 393 H Hemoglobin A1c Lactic Acid Calcium Magnesium 2.80 H Total Bilirubin Direct Bilirubin AST ALT Alkaline Phosphatase Total Creatine Kinase 448 H CK-MB (CK-2) Troponin T NT-Pro-B Natriuret Pep Total Protein Albumin Triglycerides LDL Cholesterol Direct HDL Cholesterol Urine WBC (Auto) Crossmatch 02/15/19 02/15/19 02/15/19 14:15 14:48 17:21 WBC RBC Hgb Hct MCHC RDW Plt Count Seg Neuts % (Manual) Lymphocytes % (Manual) Monocytes % (Manual) Nucleated RBC % Seg Neutrophils # Man Lymphocytes # (Manual) Monocytes # (Manual) PT INR D-Dimer POC ABG pH POC ABG pCO2 POC ABG pO2 Sodium 128 L Potassium Chloride 92.4 L Carbon Dioxide 21 L BUN 86 H Creatinine 1.9 H Glucose 436 H POC Glucose 386 H 347 H Hemoglobin A1c Lactic Acid Calcium 8.1 L Magnesium Total Bilirubin Direct Bilirubin AST ALT Alkaline Phosphatase Total Creatine Kinase CK-MB (CK-2) Troponin T NT-Pro-B Natriuret Pep Total Protein Albumin Triglycerides LDL Cholesterol Direct HDL Cholesterol Urine WBC (Auto) Crossmatch 02/15/19 02/15/19 02/16/19 22:32 23:51 04:08 WBC RBC Hgb Hct MCHC RDW Plt Count Seg Neuts % (Manual) Lymphocytes % (Manual) Monocytes % (Manual) Nucleated RBC % Seg Neutrophils # Man Lymphocytes # (Manual) Monocytes # (Manual) PT INR D-Dimer POC ABG pH POC ABG pCO2 POC ABG pO2 Sodium Potassium Chloride Carbon Dioxide BUN Creatinine Glucose POC Glucose 272 H 244 H 253 H Hemoglobin A1c Lactic Acid Calcium Magnesium Total Bilirubin Direct Bilirubin AST ALT Alkaline Phosphatase Total Creatine Kinase CK-MB (CK-2) Troponin T NT-Pro-B Natriuret Pep Total Protein Albumin Triglycerides LDL Cholesterol Direct HDL Cholesterol Urine WBC (Auto) Crossmatch 02/16/19 02/16/19 02/16/19 05:29 08:52 11:55 WBC RBC Hgb Hct MCHC RDW Plt Count Seg Neuts % (Manual) Lymphocytes % (Manual) Monocytes % (Manual) Nucleated RBC % Seg Neutrophils # Man Lymphocytes # (Manual) Monocytes # (Manual) PT INR D-Dimer POC ABG pH POC ABG pCO2 POC ABG pO2 Sodium Potassium Chloride Carbon Dioxide BUN Creatinine Glucose POC Glucose 262 H 313 H Hemoglobin A1c Lactic Acid Calcium Magnesium Total Bilirubin Direct Bilirubin AST ALT Alkaline Phosphatase Total Creatine Kinase 200 H CK-MB (CK-2) Troponin T NT-Pro-B Natriuret Pep Total Protein Albumin Triglycerides LDL Cholesterol Direct HDL Cholesterol Urine WBC (Auto) Crossmatch 02/16/19 02/16/19 02/17/19 16:20 22:38 00:15 WBC RBC Hgb Hct MCHC RDW Plt Count Seg Neuts % (Manual) Lymphocytes % (Manual) Monocytes % (Manual) Nucleated RBC % Seg Neutrophils # Man Lymphocytes # (Manual) Monocytes # (Manual) PT INR D-Dimer POC ABG pH POC ABG pCO2 POC ABG pO2 Sodium 131 L Potassium Chloride 95.7 L Carbon Dioxide 21 L BUN 70 H Creatinine 1.3 H Glucose 121 H POC Glucose 146 H 125 H Hemoglobin A1c Lactic Acid Calcium 8.0 L Magnesium Total Bilirubin Direct Bilirubin AST ALT Alkaline Phosphatase Total Creatine Kinase CK-MB (CK-2) Troponin T NT-Pro-B Natriuret Pep Total Protein Albumin Triglycerides LDL Cholesterol Direct HDL Cholesterol Urine WBC (Auto) Crossmatch 02/17/19 02/17/19 02/17/19 03:49 07:32 10:41 WBC 13.3 H RBC 2.92 L Hgb 8.2 L Hct 24.6 L MCHC RDW 16.2 H Plt Count Seg Neuts % (Manual) 85.0 H Lymphocytes % (Manual) 8.0 L Monocytes % (Manual) Nucleated RBC % Seg Neutrophils # Man 11.3 H Lymphocytes # (Manual) 1.1 L Monocytes # (Manual) PT INR D-Dimer POC ABG pH POC ABG pCO2 POC ABG pO2 Sodium 129 L Potassium 5.2 H D Chloride 95.9 L Carbon Dioxide 18 L BUN 69 H Creatinine 1.4 H Glucose POC Glucose 146 H Hemoglobin A1c Lactic Acid Calcium 8.1 L Magnesium Total Bilirubin Direct Bilirubin AST ALT Alkaline Phosphatase Total Creatine Kinase CK-MB (CK-2) Troponin T NT-Pro-B Natriuret Pep Total Protein Albumin Triglycerides LDL Cholesterol Direct HDL Cholesterol Urine WBC (Auto) Crossmatch 02/17/19 02/17/19 02/18/19 11:14 16:18 01:14 WBC 14.6 H RBC 2.53 L Hgb 7.1 L Hct 21.7 L MCHC RDW 16.6 H Plt Count Seg Neuts % (Manual) 72.0 H Lymphocytes % (Manual) 8.0 L Monocytes % (Manual) 11.0 H Nucleated RBC % Seg Neutrophils # Man 10.5 H Lymphocytes # (Manual) Monocytes # (Manual) 1.6 H PT INR D-Dimer POC ABG pH POC ABG pCO2 POC ABG pO2 Sodium Potassium Chloride Carbon Dioxide BUN Creatinine Glucose POC Glucose 219 H 176 H Hemoglobin A1c Lactic Acid Calcium Magnesium Total Bilirubin Direct Bilirubin AST ALT Alkaline Phosphatase Total Creatine Kinase CK-MB (CK-2) Troponin T NT-Pro-B Natriuret Pep Total Protein Albumin Triglycerides LDL Cholesterol Direct HDL Cholesterol Urine WBC (Auto) Crossmatch 02/18/19 02/18/19 02/18/19 04:25 11:35 11:57 WBC RBC Hgb Hct MCHC RDW Plt Count Seg Neuts % (Manual) Lymphocytes % (Manual) Monocytes % (Manual) Nucleated RBC % Seg Neutrophils # Man Lymphocytes # (Manual) Monocytes # (Manual) PT INR D-Dimer POC ABG pH POC ABG pCO2 POC ABG pO2 Sodium 130 L Potassium Chloride 94.7 L Carbon Dioxide BUN 53 H Creatinine Glucose POC Glucose 197 H Hemoglobin A1c Lactic Acid Calcium 7.8 L Magnesium Total Bilirubin Direct Bilirubin AST ALT Alkaline Phosphatase Total Creatine Kinase CK-MB (CK-2) Troponin T NT-Pro-B Natriuret Pep Total Protein Albumin Triglycerides LDL Cholesterol Direct HDL Cholesterol Urine WBC (Auto) Crossmatch See Detail 02/18/19 02/18/19 02/19/19 16:32 21:26 07:01 WBC RBC Hgb Hct MCHC RDW Plt Count Seg Neuts % (Manual) Lymphocytes % (Manual) Monocytes % (Manual) Nucleated RBC % Seg Neutrophils # Man Lymphocytes # (Manual) Monocytes # (Manual) PT INR D-Dimer POC ABG pH POC ABG pCO2 POC ABG pO2 Sodium 135 L Potassium Chloride Carbon Dioxide BUN 36 H Creatinine Glucose POC Glucose 108 H 107 H Hemoglobin A1c Lactic Acid Calcium 7.9 L Magnesium Total Bilirubin Direct Bilirubin AST ALT Alkaline Phosphatase Total Creatine Kinase CK-MB (CK-2) Troponin T NT-Pro-B Natriuret Pep Total Protein Albumin Triglycerides LDL Cholesterol Direct HDL Cholesterol Urine WBC (Auto) Crossmatch 02/19/19 02/19/19 02/19/19 11:11 13:46 15:19 WBC 12.0 H RBC 2.63 L Hgb 7.5 L Hct 23.3 L MCHC RDW 16.6 H Plt Count Seg Neuts % (Manual) 74.0 H Lymphocytes % (Manual) Monocytes % (Manual) Nucleated RBC % Seg Neutrophils # Man 8.9 H Lymphocytes # (Manual) Monocytes # (Manual) PT INR D-Dimer POC ABG pH POC ABG pCO2 POC ABG pO2 Sodium Potassium Chloride Carbon Dioxide BUN Creatinine Glucose POC Glucose 125 H 181 H Hemoglobin A1c Lactic Acid Calcium Magnesium Total Bilirubin Direct Bilirubin AST ALT Alkaline Phosphatase Total Creatine Kinase CK-MB (CK-2) Troponin T NT-Pro-B Natriuret Pep Total Protein Albumin Triglycerides LDL Cholesterol Direct HDL Cholesterol Urine WBC (Auto) Crossmatch 02/19/19 02/20/19 02/20/19 22:04 02:47 05:25 WBC RBC Hgb Hct MCHC RDW Plt Count Seg Neuts % (Manual) Lymphocytes % (Manual) Monocytes % (Manual) Nucleated RBC % Seg Neutrophils # Man Lymphocytes # (Manual) Monocytes # (Manual) PT INR D-Dimer POC ABG pH POC ABG pCO2 POC ABG pO2 Sodium Potassium Chloride Carbon Dioxide BUN Creatinine Glucose POC Glucose 298 H 136 H 106 H Hemoglobin A1c Lactic Acid Calcium Magnesium Total Bilirubin Direct Bilirubin AST ALT Alkaline Phosphatase Total Creatine Kinase CK-MB (CK-2) Troponin T NT-Pro-B Natriuret Pep Total Protein Albumin Triglycerides LDL Cholesterol Direct HDL Cholesterol Urine WBC (Auto) Crossmatch 02/20/19 02/20/19 02/20/19 06:07 07:55 12:17 WBC RBC Hgb Hct MCHC RDW Plt Count Seg Neuts % (Manual) Lymphocytes % (Manual) Monocytes % (Manual) Nucleated RBC % Seg Neutrophils # Man Lymphocytes # (Manual) Monocytes # (Manual) PT INR D-Dimer POC ABG pH POC ABG pCO2 POC ABG pO2 Sodium Potassium Chloride Carbon Dioxide BUN 23 H Creatinine Glucose 105 H POC Glucose 112 H 195 H Hemoglobin A1c Lactic Acid Calcium 7.4 L Magnesium Total Bilirubin Direct Bilirubin AST ALT Alkaline Phosphatase Total Creatine Kinase CK-MB (CK-2) Troponin T NT-Pro-B Natriuret Pep Total Protein Albumin Triglycerides LDL Cholesterol Direct HDL Cholesterol Urine WBC (Auto) Crossmatch 02/20/19 02/20/19 02/21/19 16:34 22:23 11:35 WBC RBC Hgb Hct MCHC RDW Plt Count Seg Neuts % (Manual) Lymphocytes % (Manual) Monocytes % (Manual) Nucleated RBC % Seg Neutrophils # Man Lymphocytes # (Manual) Monocytes # (Manual) PT INR D-Dimer POC ABG pH POC ABG pCO2 POC ABG pO2 Sodium Potassium Chloride Carbon Dioxide BUN Creatinine Glucose POC Glucose 117 H 153 H 142 H Hemoglobin A1c Lactic Acid Calcium Magnesium Total Bilirubin Direct Bilirubin AST ALT Alkaline Phosphatase Total Creatine Kinase CK-MB (CK-2) Troponin T NT-Pro-B Natriuret Pep Total Protein Albumin Triglycerides LDL Cholesterol Direct HDL Cholesterol Urine WBC (Auto) Crossmatch 02/21/19 02/21/19 02/21/19 11:38 17:12 19:19 WBC RBC Hgb Hct MCHC RDW Plt Count Seg Neuts % (Manual) Lymphocytes % (Manual) Monocytes % (Manual) Nucleated RBC % Seg Neutrophils # Man Lymphocytes # (Manual) Monocytes # (Manual) PT INR D-Dimer POC ABG pH POC ABG pCO2 POC ABG pO2 Sodium 135 L Potassium Chloride Carbon Dioxide 18 L BUN Creatinine Glucose 129 H POC Glucose 61 L 135 H Hemoglobin A1c Lactic Acid Calcium 7.4 L Magnesium Total Bilirubin Direct Bilirubin AST ALT Alkaline Phosphatase Total Creatine Kinase CK-MB (CK-2) Troponin T NT-Pro-B Natriuret Pep Total Protein Albumin Triglycerides LDL Cholesterol Direct HDL Cholesterol Urine WBC (Auto) Crossmatch 02/21/19 02/22/19 02/22/19 21:24 04:18 04:49 WBC RBC Hgb Hct MCHC RDW Plt Count Seg Neuts % (Manual) Lymphocytes % (Manual) Monocytes % (Manual) Nucleated RBC % Seg Neutrophils # Man Lymphocytes # (Manual) Monocytes # (Manual) PT INR D-Dimer POC ABG pH 7.459 H POC ABG pCO2 POC ABG pO2 Sodium Potassium Chloride Carbon Dioxide BUN Creatinine Glucose POC Glucose 146 H 186 H Hemoglobin A1c Lactic Acid Calcium Magnesium Total Bilirubin Direct Bilirubin AST ALT Alkaline Phosphatase Total Creatine Kinase CK-MB (CK-2) Troponin T NT-Pro-B Natriuret Pep Total Protein Albumin Triglycerides LDL Cholesterol Direct HDL Cholesterol Urine WBC (Auto) Crossmatch 02/22/19 02/22/19 02/22/19 07:56 08:26 08:26 WBC RBC Hgb Hct MCHC RDW Plt Count Seg Neuts % (Manual) Lymphocytes % (Manual) Monocytes % (Manual) Nucleated RBC % Seg Neutrophils # Man Lymphocytes # (Manual) Monocytes # (Manual) PT INR D-Dimer 1481.17 H POC ABG pH POC ABG pCO2 POC ABG pO2 Sodium 133 L Potassium 5.3 H Chloride Carbon Dioxide 19 L BUN Creatinine Glucose 216 H POC Glucose 239 H Hemoglobin A1c Lactic Acid Calcium 7.7 L Magnesium Total Bilirubin Direct Bilirubin AST ALT Alkaline Phosphatase Total Creatine Kinase CK-MB (CK-2) Troponin T NT-Pro-B Natriuret Pep Total Protein Albumin Triglycerides LDL Cholesterol Direct HDL Cholesterol Urine WBC (Auto) Crossmatch 02/22/19 02/22/19 02/22/19 11:59 17:06 22:00 WBC RBC Hgb Hct MCHC RDW Plt Count Seg Neuts % (Manual) Lymphocytes % (Manual) Monocytes % (Manual) Nucleated RBC % Seg Neutrophils # Man Lymphocytes # (Manual) Monocytes # (Manual) PT INR D-Dimer POC ABG pH POC ABG pCO2 POC ABG pO2 Sodium Potassium Chloride Carbon Dioxide BUN Creatinine Glucose POC Glucose 238 H 61 L 174 H Hemoglobin A1c Lactic Acid Calcium Magnesium Total Bilirubin Direct Bilirubin AST ALT Alkaline Phosphatase Total Creatine Kinase CK-MB (CK-2) Troponin T NT-Pro-B Natriuret Pep Total Protein Albumin Triglycerides LDL Cholesterol Direct HDL Cholesterol Urine WBC (Auto) Crossmatch 02/23/19 02/23/19 02/23/19 06:12 07:50 21:43 WBC RBC Hgb Hct MCHC RDW Plt Count Seg Neuts % (Manual) Lymphocytes % (Manual) Monocytes % (Manual) Nucleated RBC % Seg Neutrophils # Man Lymphocytes # (Manual) Monocytes # (Manual) PT INR D-Dimer POC ABG pH POC ABG pCO2 POC ABG pO2 Sodium Potassium Chloride Carbon Dioxide 19 L BUN 18 H Creatinine Glucose 52 L POC Glucose 55 L 107 H Hemoglobin A1c Lactic Acid Calcium 8.3 L Magnesium Total Bilirubin Direct Bilirubin AST ALT Alkaline Phosphatase Total Creatine Kinase CK-MB (CK-2) Troponin T NT-Pro-B Natriuret Pep Total Protein Albumin Triglycerides LDL Cholesterol Direct HDL Cholesterol Urine WBC (Auto) Crossmatch 02/24/19 02/24/19 02/24/19 07:29 11:29 16:05 WBC RBC Hgb Hct MCHC RDW Plt Count Seg Neuts % (Manual) Lymphocytes % (Manual) Monocytes % (Manual) Nucleated RBC % Seg Neutrophils # Man Lymphocytes # (Manual) Monocytes # (Manual) PT INR D-Dimer POC ABG pH POC ABG pCO2 POC ABG pO2 Sodium Potassium Chloride Carbon Dioxide BUN Creatinine Glucose POC Glucose 176 H 253 H 179 H Hemoglobin A1c Lactic Acid Calcium Magnesium Total Bilirubin Direct Bilirubin AST ALT Alkaline Phosphatase Total Creatine Kinase CK-MB (CK-2) Troponin T NT-Pro-B Natriuret Pep Total Protein Albumin Triglycerides LDL Cholesterol Direct HDL Cholesterol Urine WBC (Auto) Crossmatch 02/24/19 02/25/19 02/25/19 21:50 07:57 11:54 WBC RBC Hgb Hct MCHC RDW Plt Count Seg Neuts % (Manual) Lymphocytes % (Manual) Monocytes % (Manual) Nucleated RBC % Seg Neutrophils # Man Lymphocytes # (Manual) Monocytes # (Manual) PT INR D-Dimer POC ABG pH POC ABG pCO2 POC ABG pO2 Sodium Potassium Chloride Carbon Dioxide BUN Creatinine Glucose POC Glucose 200 H 249 H 260 H Hemoglobin A1c Lactic Acid Calcium Magnesium Total Bilirubin Direct Bilirubin AST ALT Alkaline Phosphatase Total Creatine Kinase CK-MB (CK-2) Troponin T NT-Pro-B Natriuret Pep Total Protein Albumin Triglycerides LDL Cholesterol Direct HDL Cholesterol Urine WBC (Auto) Crossmatch 02/25/19 02/25/19 02/26/19 16:34 21:52 07:54 WBC RBC Hgb Hct MCHC RDW Plt Count Seg Neuts % (Manual) Lymphocytes % (Manual) Monocytes % (Manual) Nucleated RBC % Seg Neutrophils # Man Lymphocytes # (Manual) Monocytes # (Manual) PT INR D-Dimer POC ABG pH POC ABG pCO2 POC ABG pO2 Sodium Potassium Chloride Carbon Dioxide BUN Creatinine Glucose POC Glucose 198 H 254 H 213 H Hemoglobin A1c Lactic Acid Calcium Magnesium Total Bilirubin Direct Bilirubin AST ALT Alkaline Phosphatase Total Creatine Kinase CK-MB (CK-2) Troponin T NT-Pro-B Natriuret Pep Total Protein Albumin Triglycerides LDL Cholesterol Direct HDL Cholesterol Urine WBC (Auto) Crossmatch 02/26/19 02/26/19 02/26/19 11:49 16:00 22:00 WBC RBC Hgb Hct MCHC RDW Plt Count Seg Neuts % (Manual) Lymphocytes % (Manual) Monocytes % (Manual) Nucleated RBC % Seg Neutrophils # Man Lymphocytes # (Manual) Monocytes # (Manual) PT INR D-Dimer POC ABG pH POC ABG pCO2 POC ABG pO2 Sodium Potassium Chloride Carbon Dioxide BUN Creatinine Glucose POC Glucose 306 H 183 H 162 H Hemoglobin A1c Lactic Acid Calcium Magnesium Total Bilirubin Direct Bilirubin AST ALT Alkaline Phosphatase Total Creatine Kinase CK-MB (CK-2) Troponin T NT-Pro-B Natriuret Pep Total Protein Albumin Triglycerides LDL Cholesterol Direct HDL Cholesterol Urine WBC (Auto) Crossmatch 02/27/19 02/27/19 02/27/19 07:44 11:11 16:57 WBC RBC Hgb Hct MCHC RDW Plt Count Seg Neuts % (Manual) Lymphocytes % (Manual) Monocytes % (Manual) Nucleated RBC % Seg Neutrophils # Man Lymphocytes # (Manual) Monocytes # (Manual) PT INR D-Dimer POC ABG pH POC ABG pCO2 POC ABG pO2 Sodium Potassium Chloride Carbon Dioxide BUN Creatinine Glucose POC Glucose 171 H 217 H 199 H Hemoglobin A1c Lactic Acid Calcium Magnesium Total Bilirubin Direct Bilirubin AST ALT Alkaline Phosphatase Total Creatine Kinase CK-MB (CK-2) Troponin T NT-Pro-B Natriuret Pep Total Protein Albumin Triglycerides LDL Cholesterol Direct HDL Cholesterol Urine WBC (Auto) Crossmatch 02/27/19 02/28/19 02/28/19 21:48 07:36 11:41 WBC RBC Hgb Hct MCHC RDW Plt Count Seg Neuts % (Manual) Lymphocytes % (Manual) Monocytes % (Manual) Nucleated RBC % Seg Neutrophils # Man Lymphocytes # (Manual) Monocytes # (Manual) PT INR D-Dimer POC ABG pH POC ABG pCO2 POC ABG pO2 Sodium Potassium Chloride Carbon Dioxide BUN Creatinine Glucose POC Glucose 161 H 148 H 244 H Hemoglobin A1c Lactic Acid Calcium Magnesium Total Bilirubin Direct Bilirubin AST ALT Alkaline Phosphatase Total Creatine Kinase CK-MB (CK-2) Troponin T NT-Pro-B Natriuret Pep Total Protein Albumin Triglycerides LDL Cholesterol Direct HDL Cholesterol Urine WBC (Auto) Crossmatch 03/02/28/19 02/28/19 16:32 16:53 17:28 WBC RBC Hgb Hct MCHC RDW Plt Count Seg Neuts % (Manual) Lymphocytes % (Manual) Monocytes % (Manual) Nucleated RBC % Seg Neutrophils # Man Lymphocytes # (Manual) Monocytes # (Manual) PT INR D-Dimer POC ABG pH POC ABG pCO2 POC ABG pO2 53 L Sodium Potassium Chloride Carbon Dioxide BUN Creatinine Glucose POC Glucose 283 H Hemoglobin A1c Lactic Acid Calcium Magnesium Total Bilirubin Direct Bilirubin AST ALT Alkaline Phosphatase Total Creatine Kinase CK-MB (CK-2) Troponin T 0.119 H* NT-Pro-B Natriuret Pep Total Protein Albumin Triglycerides LDL Cholesterol Direct HDL Cholesterol Urine WBC (Auto) Crossmatch 02/28/19 02/28/19 02/28/19 18:33 18:33 18:33 WBC 11.5 H RBC 2.35 L Hgb 6.5 L Hct 21.2 L MCHC RDW 17.6 H Plt Count 631 H Seg Neuts % (Manual) 87.0 H Lymphocytes % (Manual) 9.0 L Monocytes % (Manual) Nucleated RBC % Seg Neutrophils # Man 10.0 H Lymphocytes # (Manual) 1.0 L Monocytes # (Manual) PT 15.5 H INR 1.16 H D-Dimer POC ABG pH POC ABG pCO2 POC ABG pO2 Sodium Potassium Chloride Carbon Dioxide BUN Creatinine Glucose POC Glucose Hemoglobin A1c Lactic Acid Calcium Magnesium Total Bilirubin Direct Bilirubin AST ALT Alkaline Phosphatase Total Creatine Kinase 165 H CK-MB (CK-2) 4.9 H Troponin T 0.123 H* NT-Pro-B Natriuret Pep Total Protein Albumin Triglycerides LDL Cholesterol Direct HDL Cholesterol Urine WBC (Auto) Crossmatch 02/28/19 02/28/19 02/28/19 18:33 19:55 21:39 WBC RBC Hgb Hct MCHC RDW Plt Count Seg Neuts % (Manual) Lymphocytes % (Manual) Monocytes % (Manual) Nucleated RBC % Seg Neutrophils # Man Lymphocytes # (Manual) Monocytes # (Manual) PT INR D-Dimer POC ABG pH 7.319 L POC ABG pCO2 POC ABG pO2 196 H Sodium 136 L Potassium 5.6 H Chloride Carbon Dioxide 14 L BUN 21 H Creatinine 1.4 H Glucose 274 H POC Glucose 277 H Hemoglobin A1c Lactic Acid Calcium 8.3 L Magnesium Total Bilirubin Direct Bilirubin AST ALT Alkaline Phosphatase 165 H Total Creatine Kinase CK-MB (CK-2) Troponin T NT-Pro-B Natriuret Pep Total Protein Albumin 2.7 L Triglycerides LDL Cholesterol Direct HDL Cholesterol Urine WBC (Auto) Crossmatch 02/28/19 02/28/19 02/28/19 22:46 22:47 22:59 WBC RBC Hgb Hct MCHC RDW Plt Count Seg Neuts % (Manual) Lymphocytes % (Manual) Monocytes % (Manual) Nucleated RBC % Seg Neutrophils # Man Lymphocytes # (Manual) Monocytes # (Manual) PT INR D-Dimer POC ABG pH 7.068 L POC ABG pCO2 34.7 L POC ABG pO2 280 H Sodium Potassium Chloride Carbon Dioxide BUN Creatinine Glucose POC Glucose Hemoglobin A1c Lactic Acid 16.50 H* Calcium Magnesium Total Bilirubin Direct Bilirubin AST ALT Alkaline Phosphatase Total Creatine Kinase CK-MB (CK-2) Troponin T 0.595 H* D NT-Pro-B Natriuret Pep Total Protein Albumin Triglycerides LDL Cholesterol Direct HDL Cholesterol Urine WBC (Auto) Crossmatch 02/28/19 03/01/19 03/01/19 22:59 00:47 00:48 WBC RBC Hgb Hct MCHC RDW Plt Count Seg Neuts % (Manual) Lymphocytes % (Manual) Monocytes % (Manual) Nucleated RBC % Seg Neutrophils # Man Lymphocytes # (Manual) Monocytes # (Manual) PT INR D-Dimer POC ABG pH POC ABG pCO2 POC ABG pO2 Sodium Potassium 7.0 H* D 7.3 H* Chloride 97.5 L Carbon Dioxide 10 L 7 L* BUN 22 H 23 H Creatinine 1.7 H 2.0 H Glucose 223 H 222 H POC Glucose Hemoglobin A1c Lactic Acid 19.80 H* Calcium 8.1 L Magnesium Total Bilirubin Direct Bilirubin AST 107 H 223 H ALT Alkaline Phosphatase 208 H 209 H Total Creatine Kinase CK-MB (CK-2) Troponin T NT-Pro-B Natriuret Pep Total Protein 5.9 L Albumin 2.7 L 2.5 L Triglycerides LDL Cholesterol Direct HDL Cholesterol Urine WBC (Auto) Crossmatch 03/01/19 03/01/19 03/01/19 04:07 04:07 04:07 WBC RBC Hgb Hct MCHC RDW Plt Count Seg Neuts % (Manual) Lymphocytes % (Manual) Monocytes % (Manual) Nucleated RBC % Seg Neutrophils # Man Lymphocytes # (Manual) Monocytes # (Manual) PT INR D-Dimer POC ABG pH POC ABG pCO2 POC ABG pO2 Sodium Potassium 6.1 H* Chloride Carbon Dioxide 6 L* BUN 22 H Creatinine 2.0 H Glucose 269 H POC Glucose Hemoglobin A1c Lactic Acid 22.60 H* Calcium 6.9 L Magnesium Total Bilirubin Direct Bilirubin AST 1971 H ALT 686 H Alkaline Phosphatase 193 H Total Creatine Kinase CK-MB (CK-2) Troponin T 2.910 H* D NT-Pro-B Natriuret Pep Total Protein 4.6 L D Albumin 2.0 L Triglycerides LDL Cholesterol Direct HDL Cholesterol Urine WBC (Auto) Crossmatch 03/01/19 03/01/19 03/01/19 04:45 05:03 05:38 WBC RBC 1.78 L Hgb 5.0 L* Hct 17.4 L* MCHC 29 L RDW 18.3 H Plt Count Seg Neuts % (Manual) 78.0 H Lymphocytes % (Manual) Monocytes % (Manual) Nucleated RBC % 2.0 H Seg Neutrophils # Man Lymphocytes # (Manual) Monocytes # (Manual) PT INR D-Dimer POC ABG pH 6.806 L 6.895 L POC ABG pCO2 POC ABG pO2 54 L 213 H Sodium Potassium Chloride Carbon Dioxide BUN Creatinine Glucose POC Glucose Hemoglobin A1c Lactic Acid Calcium Magnesium Total Bilirubin Direct Bilirubin AST ALT Alkaline Phosphatase Total Creatine Kinase CK-MB (CK-2) Troponin T NT-Pro-B Natriuret Pep Total Protein Albumin Triglycerides LDL Cholesterol Direct HDL Cholesterol Urine WBC (Auto) Crossmatch 03/01/19 03/01/19 03/01/19 05:38 06:03 07:29 WBC RBC Hgb Hct MCHC RDW Plt Count Seg Neuts % (Manual) Lymphocytes % (Manual) Monocytes % (Manual) Nucleated RBC % Seg Neutrophils # Man Lymphocytes # (Manual) Monocytes # (Manual) PT INR D-Dimer POC ABG pH POC ABG pCO2 POC ABG pO2 Sodium Potassium Chloride Carbon Dioxide BUN Creatinine Glucose POC Glucose 310 H Hemoglobin A1c Lactic Acid 23.40 H* 24.70 H* Calcium Magnesium Total Bilirubin Direct Bilirubin AST ALT Alkaline Phosphatase Total Creatine Kinase CK-MB (CK-2) Troponin T NT-Pro-B Natriuret Pep Total Protein Albumin Triglycerides LDL Cholesterol Direct HDL Cholesterol Urine WBC (Auto) Crossmatch 03/01/19 03/01/19 03/01/19 07:30 11:38 12:02 WBC RBC Hgb Hct MCHC RDW Plt Count Seg Neuts % (Manual) Lymphocytes % (Manual) Monocytes % (Manual) Nucleated RBC % Seg Neutrophils # Man Lymphocytes # (Manual) Monocytes # (Manual) PT INR D-Dimer POC ABG pH POC ABG pCO2 POC ABG pO2 Sodium Potassium 6.3 H* Chloride Carbon Dioxide BUN Creatinine Glucose POC Glucose 326 H Hemoglobin A1c Lactic Acid Calcium Magnesium Total Bilirubin Direct Bilirubin AST ALT Alkaline Phosphatase Total Creatine Kinase CK-MB (CK-2) Troponin T NT-Pro-B Natriuret Pep Total Protein Albumin Triglycerides LDL Cholesterol Direct HDL Cholesterol Urine WBC (Auto) Crossmatch See Detail 03/01/19 03/01/19 03/01/19 12:30 17:34 18:26 WBC RBC Hgb Hct MCHC RDW Plt Count Seg Neuts % (Manual) Lymphocytes % (Manual) Monocytes % (Manual) Nucleated RBC % Seg Neutrophils # Man Lymphocytes # (Manual) Monocytes # (Manual) PT INR D-Dimer POC ABG pH 6.960 L 7.101 L POC ABG pCO2 32.7 L POC ABG pO2 117 H 109 H Sodium Potassium Chloride Carbon Dioxide BUN Creatinine Glucose POC Glucose 434 H Hemoglobin A1c Lactic Acid Calcium Magnesium Total Bilirubin Direct Bilirubin AST ALT Alkaline Phosphatase Total Creatine Kinase CK-MB (CK-2) Troponin T NT-Pro-B Natriuret Pep Total Protein Albumin Triglycerides LDL Cholesterol Direct HDL Cholesterol Urine WBC (Auto) Crossmatch 03/01/19 03/01/19 03/01/19 20:24 20:24 21:39 WBC RBC Hgb 8.9 L D Hct 28.2 L D MCHC RDW Plt Count Seg Neuts % (Manual) Lymphocytes % (Manual) Monocytes % (Manual) Nucleated RBC % Seg Neutrophils # Man Lymphocytes # (Manual) Monocytes # (Manual) PT INR D-Dimer POC ABG pH POC ABG pCO2 POC ABG pO2 Sodium Potassium 6.2 H* Chloride Carbon Dioxide BUN Creatinine Glucose POC Glucose > 500 H Hemoglobin A1c Lactic Acid Calcium Magnesium Total Bilirubin Direct Bilirubin AST ALT Alkaline Phosphatase Total Creatine Kinase CK-MB (CK-2) Troponin T NT-Pro-B Natriuret Pep Total Protein Albumin Triglycerides LDL Cholesterol Direct HDL Cholesterol Urine WBC (Auto) Crossmatch 03/01/19 03/02/19 03/02/19 22:45 01:42 04:20 WBC 13.0 H RBC 2.47 L Hgb 7.0 L Hct 22.8 L MCHC RDW 18.4 H Plt Count Seg Neuts % (Manual) 95.0 H Lymphocytes % (Manual) 0 L Monocytes % (Manual) Nucleated RBC % 8.0 H Seg Neutrophils # Man 12.4 H Lymphocytes # (Manual) 0.0 L Monocytes # (Manual) PT INR D-Dimer POC ABG pH POC ABG pCO2 POC ABG pO2 Sodium Potassium 5.9 H Chloride 93.0 L Carbon Dioxide 16 L D BUN 28 H Creatinine 2.8 H Glucose 617 H* POC Glucose > 500 H Hemoglobin A1c Lactic Acid Calcium 6.2 L Magnesium Total Bilirubin Direct Bilirubin AST ALT Alkaline Phosphatase Total Creatine Kinase CK-MB (CK-2) Troponin T NT-Pro-B Natriuret Pep Total Protein Albumin Triglycerides LDL Cholesterol Direct HDL Cholesterol Urine WBC (Auto) Crossmatch 03/02/19 03/02/19 03/02/19 04:20 05:04 05:25 WBC RBC Hgb Hct MCHC RDW Plt Count Seg Neuts % (Manual) Lymphocytes % (Manual) Monocytes % (Manual) Nucleated RBC % Seg Neutrophils # Man Lymphocytes # (Manual) Monocytes # (Manual) PT INR D-Dimer POC ABG pH POC ABG pCO2 33.8 L POC ABG pO2 Sodium 132 L Potassium Chloride 85.5 L Carbon Dioxide 21 L BUN 27 H Creatinine 2.8 H Glucose 928 H* POC Glucose > 500 H Hemoglobin A1c Lactic Acid Calcium 6.1 L Magnesium Total Bilirubin 2.00 H Direct Bilirubin AST 7855 H ALT 2210 H Alkaline Phosphatase 238 H Total Creatine Kinase CK-MB (CK-2) Troponin T 13.790 H* D NT-Pro-B Natriuret Pep Total Protein 4.0 L Albumin 1.7 L Triglycerides LDL Cholesterol Direct HDL Cholesterol Urine WBC (Auto) Crossmatch 03/02/19 03/02/19 03/02/19 09:11 10:10 11:19 WBC RBC Hgb Hct MCHC RDW Plt Count Seg Neuts % (Manual) Lymphocytes % (Manual) Monocytes % (Manual) Nucleated RBC % Seg Neutrophils # Man Lymphocytes # (Manual) Monocytes # (Manual) PT INR D-Dimer POC ABG pH POC ABG pCO2 POC ABG pO2 Sodium Potassium Chloride Carbon Dioxide BUN Creatinine Glucose POC Glucose 494 H > 500 H 413 H Hemoglobin A1c Lactic Acid Calcium Magnesium Total Bilirubin Direct Bilirubin AST ALT Alkaline Phosphatase Total Creatine Kinase CK-MB (CK-2) Troponin T NT-Pro-B Natriuret Pep Total Protein Albumin Triglycerides LDL Cholesterol Direct HDL Cholesterol Urine WBC (Auto) Crossmatch 03/02/19 03/02/19 03/02/19 12:05 13:00 14:00 WBC RBC Hgb Hct MCHC RDW Plt Count Seg Neuts % (Manual) Lymphocytes % (Manual) Monocytes % (Manual) Nucleated RBC % Seg Neutrophils # Man Lymphocytes # (Manual) Monocytes # (Manual) PT INR D-Dimer POC ABG pH POC ABG pCO2 POC ABG pO2 Sodium Potassium Chloride Carbon Dioxide BUN Creatinine Glucose POC Glucose 400 H 391 H 415 H Hemoglobin A1c Lactic Acid Calcium Magnesium Total Bilirubin Direct Bilirubin AST ALT Alkaline Phosphatase Total Creatine Kinase CK-MB (CK-2) Troponin T NT-Pro-B Natriuret Pep Total Protein Albumin Triglycerides LDL Cholesterol Direct HDL Cholesterol Urine WBC (Auto) Crossmatch 03/02/19 03/02/19 03/02/19 15:12 16:14 17:16 WBC RBC Hgb Hct MCHC RDW Plt Count Seg Neuts % (Manual) Lymphocytes % (Manual) Monocytes % (Manual) Nucleated RBC % Seg Neutrophils # Man Lymphocytes # (Manual) Monocytes # (Manual) PT INR D-Dimer POC ABG pH POC ABG pCO2 POC ABG pO2 Sodium Potassium Chloride Carbon Dioxide BUN Creatinine Glucose POC Glucose 405 H 395 H 357 H Hemoglobin A1c Lactic Acid Calcium Magnesium Total Bilirubin Direct Bilirubin AST ALT Alkaline Phosphatase Total Creatine Kinase CK-MB (CK-2) Troponin T NT-Pro-B Natriuret Pep Total Protein Albumin Triglycerides LDL Cholesterol Direct HDL Cholesterol Urine WBC (Auto) Crossmatch Assessment and Plan 58 year ols female with history of diabetes, hypertension, and peripheral vascular disease, suffered a cardiac arrest on 03/01, now with renal, hepatic injury, on insulin drip, and pressor agents. 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 The pt. is being covered for sepsis and support of other systems. Echocardiogram result is pending. Plan - Repeat CT brain tomorrow to evaluate for edema. Spoke to family about the gravity of the situation. These are very serious strokes.
[2019-03-02 18:03] LABS: Hematocrit 24.7 % (30.3-42.9)
--- NOTE | 2019-03-02 18:03 | Progress Note ---
Assessment and Plan Cultures: 02/13/2019 blood culture: E. coli, 4 out of 4 bottles 02/14/2019 urine culture: E. coli 02/16/2019 Blood culture: no growth 02/22/2019 Blood culture: no growth 03/01/2019 Blood culture: in process 03/01/2019 urine culture: no significant growth 03/02/2019 tracheal aspirate: in process A/P: 58-year-old female with hypertension, diabetes mellitus type 2, peripheral vascular disease who was recently hospitalized from vascular surgery clinic due to right second toe gangrene. She underwent thrombolysis of the right lower extremity and underwent a stent placement. She developed compartment syndrome requiring fasciotomy on 01/29/2019 and then was discharged to a rehabilitation facility, admitted with: 1) Cardiac arrest and shock with new CVA: severe lactic acidosis, anemia. Etiology septic v/s cardiogenic. Critically ill, on pressors, ventilator. Also with bilateral pneumonia, probably from aspiration following arrest. 2) E.coli bacteremia: urinary source. Completed antibiotics (Cefazolin) several days ago with repeat cultures negative. 3) UTI: U/a shows Pyuria, WBC > 182 with large LE. Urine culture grew E.coli. Completed abx. 4) Acute kidney failure: Urine output dropping. Critically ill. . 5) Peripheral vascular disease: Vascular surgery following. Right second toe ischemia and gangrene. 6) Diabetes mellitus type 2, uncontrolled. Recs: continue IV Cefepime and Vancomycin (renally adjusted) monitor renal function and vancomycin levels closely prognosis is poor MD [facility] C: [phone] O: [phone] F: [phone] Subjective Date of service: 03/02/19 Principal diagnosis: PVD with gangrene right toe, status post fasciotomies, NSTEMI, sepsis Interval history: Remains critically ill, on pressors, on vent. Found to have new CVA. Objective - Exam Narrative Exam: Physical Exam: Constitutional: intubated Head, Ears, Nose: Normocephalic, atraumatic. External ears, nose normal Eyes: Conjunctivae/corneas clear. No icterus. No ptosis. Neck: Supple, no meningeal signs Oral: intubated Cardiovascular: S1, S2 normal. Respiratory: Good air entry, clear to auscultation bilaterally GI: bowel sounds hypoactive. No peritoneal signs Musculoskeletal: Right second toe with blackish discoloration, right calf with dressing Skin: No rash or abscess Hem/Lymphatic: No palpable cervical or supraclavicular nodes. No lymphangitis Psych: no agitation Neurological: intubated, on vent - Constitutional Vitals: Vital Signs Temp Pulse Resp BP Pulse Ox 97.8 F 89 20 90/52 100 03/02/19 14:00 03/02/19 16:40 03/02/19 16:15 03/02/19 16:40 03/02/19 16:40 Temperature -Last 24 Hours Temperature 97.8 F Temperature 98.3 F Temperature 98.1 F Temperature 98.1 F Temperature 98.3 F Temperature 100.6 F - Labs CBC & Chem 7: 03/02/19 04:20 03/02/19 04:20 Labs: Abnormal lab results 03/01/19 03/01/19 03/01/19 Range/Units 07:30 17:34 18:26 WBC (4.5-11.0) K/mm3 RBC (3.65-5.03) M/mm3 Hgb (10.1-14.3) gm/dl Hct (30.3-42.9) % RDW (13.2-15.2) % Seg Neuts % (Manual) (40.0-70.0) % Lymphocytes % (Manual) (13.4-35.0) % Nucleated RBC % (0.0-0.9) % Seg Neutrophils # Man (1.8-7.7) K/mm3 Lymphocytes # (Manual) (1.2-5.4) K/mm3 POC ABG pH 7.101 L (7.35-7.45) POC ABG pCO2 32.7 L (35-45) POC ABG pO2 109 H (80-105) Sodium (137-145) mmol/L Potassium (3.6-5.0) mmol/L Chloride (98-107) mmol/L Carbon Dioxide (22-30) mmol/L BUN (7-17) mg/dL Creatinine (0.7-1.2) mg/dL Glucose (65-100) mg/dL POC Glucose 434 H (70-105) Calcium (8.4-10.2) mg/dL Total Bilirubin (0.1-1.2) mg/dL AST (5-40) units/L ALT (7-56) units/L Alkaline Phosphatase (35-129) units/L Troponin T (0.00-0.029) ng/mL Total Protein (6.3-8.2) g/dL Albumin (3.9-5) g/dL Crossmatch See Detail 03/01/19 03/01/19 03/01/19 Range/Units 20:24 20:24 21:39 WBC (4.5-11.0) K/mm3 RBC (3.65-5.03) M/mm3 Hgb 8.9 L D (10.1-14.3) gm/dl Hct 28.2 L D (30.3-42.9) % RDW (13.2-15.2) % Seg Neuts % (Manual) (40.0-70.0) % Lymphocytes % (Manual) (13.4-35.0) % Nucleated RBC % (0.0-0.9) % Seg Neutrophils # Man (1.8-7.7) K/mm3 Lymphocytes # (Manual) (1.2-5.4) K/mm3 POC ABG pH (7.35-7.45) POC ABG pCO2 (35-45) POC ABG pO2 (80-105) Sodium (137-145) mmol/L Potassium 6.2 H* (3.6-5.0) mmol/L Chloride (98-107) mmol/L Carbon Dioxide (22-30) mmol/L BUN (7-17) mg/dL Creatinine (0.7-1.2) mg/dL Glucose (65-100) mg/dL POC Glucose > 500 H (70-105) Calcium (8.4-10.2) mg/dL Total Bilirubin (0.1-1.2) mg/dL AST (5-40) units/L ALT (7-56) units/L Alkaline Phosphatase (35-129) units/L Troponin T (0.00-0.029) ng/mL Total Protein (6.3-8.2) g/dL Albumin (3.9-5) g/dL Crossmatch 03/01/19 03/02/19 03/02/19 Range/Units 22:45 01:42 04:20 WBC 13.0 H (4.5-11.0) K/mm3 RBC 2.47 L (3.65-5.03) M/mm3 Hgb 7.0 L (10.1-14.3) gm/dl Hct 22.8 L (30.3-42.9) % RDW 18.4 H (13.2-15.2) % Seg Neuts % (Manual) 95.0 H (40.0-70.0) % Lymphocytes % (Manual) 0 L (13.4-35.0) % Nucleated RBC % 8.0 H (0.0-0.9) % Seg Neutrophils # Man 12.4 H (1.8-7.7) K/mm3 Lymphocytes # (Manual) 0.0 L (1.2-5.4) K/mm3 POC ABG pH (7.35-7.45) POC ABG pCO2 (35-45) POC ABG pO2 (80-105) Sodium (137-145) mmol/L Potassium 5.9 H (3.6-5.0) mmol/L Chloride 93.0 L (98-107) mmol/L Carbon Dioxide 16 L D (22-30) mmol/L BUN 28 H (7-17) mg/dL Creatinine 2.8 H (0.7-1.2) mg/dL Glucose 617 H* (65-100) mg/dL POC Glucose > 500 H (70-105) Calcium 6.2 L (8.4-10.2) mg/dL Total Bilirubin (0.1-1.2) mg/dL AST (5-40) units/L ALT (7-56) units/L Alkaline Phosphatase (35-129) units/L Troponin T (0.00-0.029) ng/mL Total Protein (6.3-8.2) g/dL Albumin (3.9-5) g/dL Crossmatch 03/02/19 03/02/19 03/02/19 Range/Units 04:20 05:04 05:25 WBC (4.5-11.0) K/mm3 RBC (3.65-5.03) M/mm3 Hgb (10.1-14.3) gm/dl Hct (30.3-42.9) % RDW (13.2-15.2) % Seg Neuts % (Manual) (40.0-70.0) % Lymphocytes % (Manual) (13.4-35.0) % Nucleated RBC % (0.0-0.9) % Seg Neutrophils # Man (1.8-7.7) K/mm3 Lymphocytes # (Manual) (1.2-5.4) K/mm3 POC ABG pH (7.35-7.45) POC ABG pCO2 33.8 L (35-45) POC ABG pO2 (80-105) Sodium 132 L (137-145) mmol/L Potassium (3.6-5.0) mmol/L Chloride 85.5 L (98-107) mmol/L Carbon Dioxide 21 L (22-30) mmol/L BUN 27 H (7-17) mg/dL Creatinine 2.8 H (0.7-1.2) mg/dL Glucose 928 H* (65-100) mg/dL POC Glucose > 500 H (70-105) Calcium 6.1 L (8.4-10.2) mg/dL Total Bilirubin 2.00 H (0.1-1.2) mg/dL AST 7855 H (5-40) units/L ALT 2210 H (7-56) units/L Alkaline Phosphatase 238 H (35-129) units/L Troponin T 13.790 H* D (0.00-0.029) ng/mL Total Protein 4.0 L (6.3-8.2) g/dL Albumin 1.7 L (3.9-5) g/dL Crossmatch 03/02/19 03/02/19 03/02/19 Range/Units 09:11 10:10 11:19 WBC (4.5-11.0) K/mm3 RBC (3.65-5.03) M/mm3 Hgb (10.1-14.3) gm/dl Hct (30.3-42.9) % RDW (13.2-15.2) % Seg Neuts % (Manual) (40.0-70.0) % Lymphocytes % (Manual) (13.4-35.0) % Nucleated RBC % (0.0-0.9) % Seg Neutrophils # Man (1.8-7.7) K/mm3 Lymphocytes # (Manual) (1.2-5.4) K/mm3 POC ABG pH (7.35-7.45) POC ABG pCO2 (35-45) POC ABG pO2 (80-105) Sodium (137-145) mmol/L Potassium (3.6-5.0) mmol/L Chloride (98-107) mmol/L Carbon Dioxide (22-30) mmol/L BUN (7-17) mg/dL Creatinine (0.7-1.2) mg/dL Glucose (65-100) mg/dL POC Glucose 494 H > 500 H 413 H (70-105) Calcium (8.4-10.2) mg/dL Total Bilirubin (0.1-1.2) mg/dL AST (5-40) units/L ALT (7-56) units/L Alkaline Phosphatase (35-129) units/L Troponin T (0.00-0.029) ng/mL Total Protein (6.3-8.2) g/dL Albumin (3.9-5) g/dL Crossmatch 03/02/19 03/02/19 03/02/19 Range/Units 12:05 13:00 14:00 WBC (4.5-11.0) K/mm3 RBC (3.65-5.03) M/mm3 Hgb (10.1-14.3) gm/dl Hct (30.3-42.9) % RDW (13.2-15.2) % Seg Neuts % (Manual) (40.0-70.0) % Lymphocytes % (Manual) (13.4-35.0) % Nucleated RBC % (0.0-0.9) % Seg Neutrophils # Man (1.8-7.7) K/mm3 Lymphocytes # (Manual) (1.2-5.4) K/mm3 POC ABG pH (7.35-7.45) POC ABG pCO2 (35-45) POC ABG pO2 (80-105) Sodium (137-145) mmol/L Potassium (3.6-5.0) mmol/L Chloride (98-107) mmol/L Carbon Dioxide (22-30) mmol/L BUN (7-17) mg/dL Creatinine (0.7-1.2) mg/dL Glucose (65-100) mg/dL POC Glucose 400 H 391 H 415 H (70-105) Calcium (8.4-10.2) mg/dL Total Bilirubin (0.1-1.2) mg/dL AST (5-40) units/L ALT (7-56) units/L Alkaline Phosphatase (35-129) units/L Troponin T (0.00-0.029) ng/mL Total Protein (6.3-8.2) g/dL Albumin (3.9-5) g/dL Crossmatch 03/02/19 03/02/19 03/02/19 Range/Units 15:12 16:14 17:16 WBC (4.5-11.0) K/mm3 RBC (3.65-5.03) M/mm3 Hgb (10.1-14.3) gm/dl Hct (30.3-42.9) % RDW (13.2-15.2) % Seg Neuts % (Manual) (40.0-70.0) % Lymphocytes % (Manual) (13.4-35.0) % Nucleated RBC % (0.0-0.9) % Seg Neutrophils # Man (1.8-7.7) K/mm3 Lymphocytes # (Manual) (1.2-5.4) K/mm3 POC ABG pH (7.35-7.45) POC ABG pCO2 (35-45) POC ABG pO2 (80-105) Sodium (137-145) mmol/L Potassium (3.6-5.0) mmol/L Chloride (98-107) mmol/L Carbon Dioxide (22-30) mmol/L BUN (7-17) mg/dL Creatinine (0.7-1.2) mg/dL Glucose (65-100) mg/dL POC Glucose 405 H 395 H 357 H (70-105) Calcium (8.4-10.2) mg/dL Total Bilirubin (0.1-1.2) mg/dL AST (5-40) units/L ALT (7-56) units/L Alkaline Phosphatase (35-129) units/L Troponin T (0.00-0.029) ng/mL Total Protein (6.3-8.2) g/dL Albumin (3.9-5) g/dL Crossmatch
[2019-03-02 18:34] LABS: Calcium 5.9 mg/dL (8.4-10.2)
[2019-03-02] MEDS ORDERED: NACL 0.9% 500 ML 500 ML IV ONE (19:02)
[2019-03-02] MEDS ORDERED: D50W (25GM) Syringe IV ONE (19:02)
[2019-03-02] MEDS ORDERED: HumuLIN R IV NR (19:03)
[2019-03-02] MEDS ORDERED: CALCIUM GLUCONATE 1,000 MG in NACL 0.9% 100 ML IV ONE (20:00)
--- NOTE | 2019-03-02 20:59 | Event Note ---
<RAJI SCHULZ - Last Filed: 03/03/19 04:53> Date: 03/02/[address] of the brain was ordered, because pt's nurse states that the previous order was dc because pt wasn't stable to be taking to CT scan. About 20 mins after the exam, radiologist called and reports that the findings show "an acute subacute non hemorrhagic infarct bilaterally in the cerebellum and the left occipital lobe. An MRI was ordered to follow up on the CT findings. I have to note that the pt coded right after coming to the floor from the CT scan, pt was very unstable and wasn't not in any state to follow the usual recommendations following a stroke. Pt needed, a neuro consult , physical therapy, speech and occupational therapy, daily aspirin, statin, which were not ordered at the time due to pt's condition. 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
[2019-03-02] MEDS ORDERED: VANCOMYCIN 1,750 MG in NACL 0.9% 500 ML 500 ML IV SCH (21:00)
[2019-03-02 21:35] LABS: Bacteria,Urine 2+ /HPF (Negative); Bilirubin,Urine NEG (Negative); Blood,Urine LG (Negative); Color,Urine Amber (Yellow); Urobilinogen,Urine < 2.0 mg/dL (<2.0)
[2019-03-02] MEDS: PROTONIX IV SCH (21:41)
[2019-03-02] MEDS ORDERED: WATER FOR INJ (PF) ONE (21:54)
[2019-03-02] MEDS ORDERED: WATER FOR INJ Sterile (PF) 10 ML ONE (21:55)
--- NOTE | 2019-03-02 23:27 | Progress Note ---
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 CT head; no acute findings CXR no acute findings Labs; UA > 182 WBC Micro; urine and blood growing ecoli sens to current abx Diagnosis sepsis, ecoli Bactermia and Ecoli UTI PNA? Acute hypoxic respiratory failure anemia, likely due to chronic disease HHNK, Type 2 DM, A1c 9 Hyponatremia, likely pseudohyponatremia of hyperglycemia Hyperkalemia GERALDINE- likely ATN Hypomagesemia- resolved PAD hx of RLE ischemia, sp thrombolysis, revascularization and fascitomy dry gangrene, R second toe Rhabdomylsis, non traumatic acute metabolic encephalopathy Fluid overload Acute cva VA Anoxic encephalopathy Acute kidney injury due to ATN Shock liver/transaminitis Distributive shock Plan UTI/bacteremia; The patient had sepsis due to Escherichia coli bacteremia and Escherichia coli UTI. She completed a course of antibiotics for that on 02/20 * The patient had some necrotic tissue on her right leg, she was seen by vascular surgery, status post debridement of right leg on 02/20, necrotic tissue was removed. 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 Imaging showed infiltrates, she received Lasix after which infiltrate completely resolved. Therefore it was due to vascular congestion, pneumonia was at that time ruled out. VQ scan and lower extremity Dopplers were negative which at that time excluded VTE. Her respiratory status was improving, she was being weaned off oxygen. Echo showed preserved EF * She initially presented with severe hyperglycemia, she was treated with insulin and IV fluids, she was put on bolus and basal insulin and her sugars improved * She had hypomagnesemia, and if her magnesium was repleted. She also had elevated potassium for which she received single dose of Kayexalate on 02/17 * The patient was improving and was planned for rehabilitation placement, but unfortunately she had a decline * received multiple units of pr she had anemia, bc, first unit on 02/18, then had another drop in hct after code blue on 03/01 after which she got another 3 units, ; seen by GI, they did not suspect acute GI bleed. * 02/28, she developed chest pain or shortness of breath, chest put on anticoag ulation, as PE was again suspected, anticoagulation was later discontinued due to anemia * 03/01, she became pulseless, RO[facility] RAZA was called, she received CPR, had ROSC was then intubated and sedated, but per her family was only moving her right side at that time, she was on pressors and was too unstable to go to CT scan * 03/02, the patient was more stable, therefore she was taking for CT scan which confirmed subacute cerebral stroke, at this time the patient was now completely obtunded, not responsive to painful stimuli, and only had a gag reflex, fixed pupils and absence of most reflexes. Stroke protocol place, neurology consult placed. Patient already on aspirin, unable to tolerate statins due to markedly elevated LFTs, this is most likely due to shock liver, the patient remains pressor dependent * Prognosis for recovery is poor, will plan family meeting tomorrow CCT 33 minutes History Interval history: The patient is obtunded, intubated, not on sedation No vomiting, no seizures, no agitation. Patient has been nonresponsive Hospitalist Physical - Physical exam Narrative exam: General.: Obtunded, appears ill HEENT: Corneal edema noted Neck: supple Cardiac: S1-S2 heard Lungs: Ventilated breath sounds Abdomen: soft , nontender, nondistended, bowel sounds positive Extremities: Bilateral lower extremity bandages noted, bandages to right lower extremity when not removed on my exam Skin: no rash or lesions Neurologic: The patient does not open her eyes, does not move any extremities, does not respond to painful stimuli, only a weak gag reflex was elicited on my exam - Constitutional Vitals: Temp Pulse Resp BP Pulse Ox 97.5 F L 100 H 20 88/57 100 03/02/19 20:00 03/02/19 23:09 03/02/19 21:00 03/02/19 23:09 03/02/19 23:09 General appearance: Present: other (intubated, nonresponsive, off sedation ) Results - Labs CBC & Chem 7: 03/03/19 08:30 03/03/19 08:30 Labs: Laboratory Last Values WBC 13.0 K/mm3 (4.5-11.0) H 03/02/19 04:20 RBC 2.47 M/mm3 (3.65-5.03) L 03/02/19 04:20 Hgb 8.0 gm/dl (10.1-14.3) L 03/02/19 17:13 Hct 24.7 % (30.3-42.9) L 03/02/19 17:13 MCV 92 fl (79-97) 03/02/19 04:20 MCH 28 pg (28-32) 03/02/19 04:20 MCHC 31 % (30-34) 03/02/19 04:20 RDW 18.4 % (13.2-15.2) H 03/02/19 04:20 Plt Count 233 K/mm3 (140-440) 03/02/19 04:20 Lymph % (Auto) Planning Rn 02/17/19 10:41 [place] % (Auto) Planning Rn 02/17/19 10:41 Eos % (Auto) Planning Rn 02/17/19 10:41 Baso % (Auto) Planning Rn 02/17/19 10:41 Lymph # Planning Rn 02/17/19 10:41 [place] # Planning Rn 02/17/19 10:41 Eos # Planning Rn 02/17/19 10:41 Baso # Planning Rn 02/17/19 10:41 Add Manual Diff Complete 03/02/19 04:20 Total Counted 100 03/02/19 04:20 Seg Neutrophils % Planning Rn 02/17/19 10:41 Seg Neuts % (Manual) 95.0 % (40.0-70.0) H 03/02/19 04:20 Band Neutrophils % 5.0 % 03/02/19 04:20 Lymphocytes % (Manual) 0 % (13.4-35.0) L 03/02/19 04:20 Reactive Lymphs % (Man) 0 % 03/02/19 04:20 Monocytes % (Manual) 0 % (0.0-7.3) 03/02/19 04:20 Eosinophils % (Manual) 0 % (0.0-4.3) 03/02/19 04:20 Basophils % (Manual) 0 % (0.0-1.8) 03/02/19 04:20 Metamyelocytes % 0 % 03/02/19 04:20 Myelocytes % 0 % 03/02/19 04:20 Promyelocytes % 0 % 03/02/19 04:20 Blast Cells % 0 % 03/02/19 04:20 Nucleated RBC % 8.0 % (0.0-0.9) H 03/02/19 04:20 Seg Neutrophils # Planning Rn 02/17/19 10:41 Seg Neutrophils # Man 12.4 K/mm3 (1.8-7.7) H 03/02/19 04:20 Band Neutrophils # 0.7 K/mm3 03/02/19 04:20 Lymphocytes # (Manual) 0.0 K/mm3 (1.2-5.4) L 03/02/19 04:20 Abs React Lymphs (Man) 0.0 K/mm3 03/02/19 04:20 Monocytes # (Manual) 0.0 K/mm3 (0.0-0.8) 03/02/19 04:20 Eosinophils # (Manual) 0.0 K/mm3 (0.0-0.4) 03/02/19 04:20 Basophils # (Manual) 0.0 K/mm3 (0.0-0.1) 03/02/19 04:20 Metamyelocytes # 0.0 K/mm3 03/02/19 04:20 Myelocytes # 0.0 K/mm3 03/02/19 04:20 Promyelocytes # 0.0 K/mm3 03/02/19 04:20 Blast Cells # 0.0 K/mm3 03/02/19 04:20 WBC Morphology Not Reportable 03/02/19 04:20 Hypersegmented Neuts Not Reportable 03/02/19 04:20 Hyposegmented Neuts Not Reportable 03/02/19 04:20 Hypogranular Neuts Not Reportable 03/02/19 04:20 Smudge Cells Not Reportable 03/02/19 04:20 Toxic Granulation Not Reportable 03/02/19 04:20 Toxic Vacuolation Not Reportable 03/02/19 04:20 Dohle Bodies Not Reportable 03/02/19 04:20 Pelger-Huet Anomaly Not Reportable 03/02/19 04:20 Cisco Rods Not Reportable 03/02/19 04:20 Platelet Estimate Cons 03/02/19 04:20 Clumped Platelets Few 03/02/19 04:20 Plt Clumps, EDTA Not Reportable 03/02/19 04:20 Large Platelets Not Reportable 03/02/19 04:20 Giant Platelets Not Reportable 03/02/19 04:20 Platelet Satelliting Not Reportable 03/02/19 04:20 Plt Morphology Comment Not Reportable 03/02/19 04:20 RBC Morphology Not Reportable 03/02/19 04:20 Dimorphic RBCs Not Reportable 03/02/19 04:20 Polychromasia Not Reportable 03/02/19 04:20 Hypochromasia Not Reportable 03/02/19 04:20 Poikilocytosis Not Reportable 03/02/19 04:20 Anisocytosis 1+ 03/02/19 04:20 Microcytosis Not Reportable 03/02/19 04:20 Macrocytosis Not Reportable 03/02/19 04:20 Spherocytes Not Reportable 03/02/19 04:20 Pappenheimer Bodies Not Reportable 03/02/19 04:20 Sickle Cells Not Reportable 03/02/19 04:20 Target Cells Not Reportable 03/02/19 04:20 Tear Drop Cells Not Reportable 03/02/19 04:20 Ovalocytes Not Reportable 03/02/19 04:20 Helmet Cells Not Reportable 03/02/19 04:20 [place] Bodies Not Reportable 03/02/19 04:20 Chambers Rings Not Reportable 03/02/19 04:20 Vipul Cells Not Reportable 03/02/19 04:20 Bite Cells Not Reportable 03/02/19 04:20 Crenated Cell Not Reportable 03/02/19 04:20 Elliptocytes Not Reportable 03/02/19 04:20 Acanthocytes (Spur) Not Reportable 03/02/19 04:20 Rouleaux Not Reportable 03/02/19 04:20 Hemoglobin C Crystals Not Reportable 03/02/19 04:20 Schistocytes Not Reportable 03/02/19 04:20 Malaria parasites Not Reportable 03/02/19 04:20 [place] Bodies Not Reportable 03/02/19 04:20 Hem Pathologist Commnt No 03/02/19 04:20 PT 15.5 Sec. (12.2-14.9) H 02/28/19 18:33 INR 1.16 (0.87-1.13) H 02/28/19 18:33 APTT 29.5 Sec. (24.2-36.6) 02/28/19 18:33 D-Dimer 1481.17 ng/mlDDU (0-234) H 02/22/19 08:26 Heparin Anti-Xa Level 0.42 U.I./ml (0.3-0.7) 03/01/19 00:48 POC ABG pH 7.358 (7.35-7.45) 03/02/19 05:25 POC ABG pCO2 33.8 (35-45) L 03/02/19 05:25 POC ABG pO2 102 (80-105) 03/02/19 05:25 POC ABG HCO3 19.0 (22-26 mml/L) 03/02/19 05:25 POC ABG Total CO2 20 (23-27mmol/L) 03/02/19 05:25 POC ABG O2 Sat 98 03/02/19 05:25 POC ABG Base Excess -6 ((-2) - (+3)mmol/L) 03/02/19 05:25 VBG pH 7.379 (7.320-7.420) 02/13/19 14:08 FiO2 100 % 03/02/19 05:25 Sodium 137 mmol/L (137-145) 03/02/19 17:13 Potassium 4.3 mmol/L (3.6-5.0) 03/02/19 17:13 Chloride 94.8 mmol/L (98-107) L 03/02/19 17:13 Carbon Dioxide 21 mmol/L (22-30) L 03/02/19 17:13 Anion Gap 26 mmol/L 03/02/19 17:13 BUN 34 mg/dL (7-17) H 03/02/19 17:13 Creatinine 3.2 mg/dL (0.7-1.2) H 03/02/19 17:13 Estimated GFR 18 ml/min 03/02/19 17:13 BUN/Creatinine Ratio 11 % 03/02/19 17:13 Glucose 358 mg/dL (65-100) H 03/02/19 17:13 POC Glucose 252 (70-105) H 03/02/19 22:07 Hemoglobin A1c 9.2 % (4-6) H 02/13/19 18:15 Ketones Quantitative Negative (Negative) 02/13/19 14:08 Lactic Acid 8.60 mmol/L (0.7-2.0) H* 03/02/19 21:08 Calcium 5.9 mg/dL (8.4-10.2) L* 03/02/19 17:13 Phosphorus 3.10 mg/dL (2.5-4.5) 02/15/19 05:32 Magnesium 2.80 mg/dL (1.7-2.3) H 02/15/19 05:32 Total Bilirubin 2.00 mg/dL (0.1-1.2) H 03/02/19 04:20 Direct Bilirubin 1.1 mg/dL (0-0.2) H 02/13/19 14:08 Indirect Bilirubin 0.4 mg/dL 02/13/19 14:08 AST 7855 units/L (5-40) H 03/02/19 04:20 ALT 2210 units/L (7-56) H 03/02/19 04:20 Alkaline Phosphatase 238 units/L (35-129) H 03/02/19 04:20 Ammonia 40.0 umol/L (25-60) 02/13/19 14:15 Total Creatine Kinase 165 units/L (30-135) H 02/28/19 18:33 CK-MB (CK-2) 4.9 ng/mL (0.0-4.0) H 02/28/19 18:33 CK-MB (CK-2) Rel Index 2.9 (0-4) 02/28/19 18:33 Troponin T 13.790 ng/mL (0.00-0.029) H* D 03/02/19 04:20 NT-Pro-B Natriuret Pep 6167 pg/mL (0-900) H 02/13/19 14:15 Total Protein 4.0 g/dL (6.3-8.2) L 03/02/19 04:20 Albumin 1.7 g/dL (3.9-5) L 03/02/19 04:20 Albumin/Globulin Ratio 0.7 % 03/02/19 04:20 Triglycerides 329 mg/dL (2-149) H 02/13/19 14:20 Cholesterol 159 mg/dL (50-199) 02/13/19 14:20 LDL Cholesterol Direct 36 mg/dL (50-130) L 02/13/19 14:20 HDL Cholesterol 17 mg/dL (40-59) L 02/13/19 14:20 Cholesterol/HDL Ratio 9.35 % 02/13/19 14:20 Amylase 34 units/L (27-131) 03/01/19 00:48 Urine Color Steffi (Yellow) 03/02/19 20:29 Urine Turbidity Slightly-cloudy (Clear) 03/02/19 20:29 Urine pH 6.0 (5.0-7.0) 03/02/19 20:29 Ur Specific [place] 1.011 (1.003-1.030) 03/02/19 20:29 Urine Protein 100 mg/dl mg/dL (Negative) 03/02/19 20:29 Urine Glucose (UA) 50 mg/dL (Negative) 03/02/19 20:29 Urine Ketones Neg mg/dL (Negative) 03/02/19 20:29 Urine Blood Lg (Negative) 03/02/19 20:29 Urine Nitrite Neg (Negative) 03/02/19 20:29 Urine Bilirubin Neg (Negative) 03/02/19 20:29 Urine Urobilinogen < 2.0 mg/dL (<2.0) 03/02/19 20:29 Ur Leukocyte Esterase Mod (Negative) 03/02/19 20:29 Urine WBC (Auto) 17.0 /HPF (0.0-6.0) H 03/02/19 20:29 Urine RBC (Auto) 29.0 /HPF (0.0-6.0) 03/02/19 20:29 U Epithel Cells (Auto) 1.0 /HPF (0-13.0) 02/14/19 09:07 Urine Bacteria (Auto) 2+ /HPF (Negative) 03/02/19 20:29 Urine WBC Clumps 3+ /HPF 02/14/19 09:07 Ur Transition Epith Cell 1 /HPF 02/14/19 09:07 Urine Mucus Few /HPF 02/14/19 09:07 Urine Yeast (Budding) 3+ /HPF 03/02/19 20:29 Urine Eosinophils None seen (None Seen) 03/01/19 06:50 Vancomycin Trough 14.5 ug/mL (5.0-20.0) 02/15/19 05:32 Urine Opiates Screen Presumptive negative 02/14/19 09:07 Urine Methadone Screen Presumptive negative 02/14/19 09:07 Ur Barbiturates Screen Presumptive negative 02/14/19 09:07 Ur Phencyclidine Scrn Presumptive negative 02/14/19 09:07 Ur Amphetamines Screen Presumptive negative 02/14/19 09:07 U Benzodiazepines Scrn Presumptive negative 02/14/19 09:07 Urine Cocaine Screen Presumptive negative 02/14/19 09:07 U Marijuana (THC) Screen Presumptive negative 02/14/19 09:07 Drugs of Abuse Note Disclamer 02/14/19 09:07 Blood Type B POSITIVE 03/01/19 07:30 Antibody Screen Negative 03/01/19 07:30 Crossmatch See Detail 03/01/19 07:30 Active Medications - Current Medications Current Medications: Generic Name Dose Route Start Last Admin Trade Name Freq PRN Reason Stop Dose Admin Acetaminophen 650 mg 02/13/19 18:03 Tylenol PO Q4H PRN Pain MILD(1-3)/Fever >100.5/MARTÍNEZ Albuterol 2.5 mg 02/22/19 04:53 02/28/19 16:08 Proventil IH 2.5 mg Q6HRT PRN Administration Shortness Of Breath Albuterol/Ipratropium 1 ampul 02/28/19 16:45 03/02/19 19:35 Duoneb *Not For Prn Use* IH 1 ampul Q6HRT RAFAEL Administration Aspirin 325 mg 02/28/19 19:00 03/02/19 11:01 Aspirin PO 325 mg QDAY RAFAEL Administration Dextrose 50 ml 03/02/19 08:04 D50w (25gm) Syringe IV PRN PRN Hypoglycemia Famotidine 20 mg 03/01/19 10:00 03/02/19 11:01 Pepcid IV 20 mg DAILY RAFAEL Administration Fentanyl 50 mcg 02/28/19 21:01 Sublimaze IV Q10MIN PRN ANALGESIA Hydralazine HCl 10 mg 03/02/19 15:28 Apresoline IV Q4HR PRN BP >180/110 Hydrophilic Ointment 1 applic 02/28/19 21:29 Vaseline Lip Therapy TP Q2HR PRN Dry Lips Fentanyl Citrate 2,000 mcg in 100 mls @ 5.665 mls/hr 02/28/19 22:00 03/01/19 00:46 Fentanyl Drip Premix IV 0 mcg/kg/hr TITR RAFAEL 0 mls/hr Titration Protocol 1 MCG/KG/HR Norepinephrine 4 mg in 250 mls @ 7.5 mls/hr 03/01/19 03:00 03/02/19 22:18 Levophed Drip 4 Mg/Ns 250 Ml IV 8 mcg/min TITR RAFAEL 30 mls/hr Administration Protocol 2 MCG/MIN Dopamine HCl/Dextrose 800 mg in 250 mls @ 4.249 mls/hr 03/01/19 01:35 03/02/19 00:13 Intropin Drip 800 Mg/D5w 250 Ml IV 0 mcg/kg/min TITR RAFAEL 0 mls/hr Titration Protocol 2 MCG/KG/MIN Cefepime HCl 2 gm in 100 mls @ 200 mls/hr 03/01/19 20:00 03/02/19 15:25 Maxipime/Ns 2 Gm/100 Ml IV 200 mls/hr Q24HR RAFAEL Administration Protocol Insulin Human Regular 100 100 mls @ 1 mls/hr 03/02/19 09:00 03/02/19 23:06 units/ Sodium Chloride IV 12 units/hr TITR RAFAEL 12 mls/hr Titration Protocol 1 UNITS/HR Sodium Chloride 1,000 mls @ 42 mls/hr 03/02/19 10:00 Nacl 0.9% 1000 Ml IV DIRECT RAFAEL Ondansetron HCl 4 mg 02/13/19 18:03 Zofran IV Q8H PRN Nausea And Vomiting Pantoprazole Sodium 40 mg 03/02/19 22:00 03/02/19 21:41 Protonix IV 40 mg BID RAFAEL Administration Sodium Chloride 10 ml 02/13/19 22:00 03/02/19 21:42 Sodium Chloride Flush Syringe 10 Ml IV 10 ml BID RAFAEL Administration Sodium Chloride 10 ml 02/13/19 18:03 Sodium Chloride Flush Syringe 10 Ml IV PRN PRN LINE FLUSH Nutrition/Malnutrition Assess - Dietary Evaluation Nutrition/Malnutrition Findings: Nutrition Notes Start: 02/19/19 14:33 Freq: Status: Active Protocol: Document 02/19/19 14:34 RM (Rec: 02/19/19 14:34 RM [id number]) Nutrition Notes Need for Assessment generated from: LOS Initial or Follow up Brief Note Height 5 ft 3 in Weight 110.03 kg [place] Body Weight (kg) 52.27 BMI 43.0 Subjective/Other Information Screened for LOS. PO intake 85% X 2 days. Nutrition Intervention Revisit per MD consult or patient Sign Off request:
[2019-03-03] MEDS: HumuLIN R 100 UNITS in NACL 0.9% 99 ML IV SCH ×2 (00:10→09:35)
[2019-03-03 01:30] LABS: Hemoglobin 6.3 gm/dl (10.1-14.3)
[2019-03-03 01:33] LABS: Hematocrit 19.8 % (30.3-42.9)
[2019-03-03 02:03] LABS: Calcium 4.6 mg/dL (8.4-10.2)
[2019-03-03] MEDS ORDERED: CALCIUM GLUCONATE 1,000 MG in NACL 0.9% 100 ML IV ONE (02:42)
[2019-03-03] MEDS: DUONEB *Not for PRN Use IH SCH ×4 (02:43→20:19)
[2019-03-03] MEDS ORDERED: NACL 0.9% 500 ML 500 ML IV ONE (02:44)
[2019-03-03] MEDS: KCL 20MEQ/100ML 20 MEQ/100 ML BAG IV SCH ×2 (03:14→04:14)
--- NOTE | 2019-03-03 04:40 | XRay Report ---
PROCEDURE: XR CHEST 1V AP TECHNIQUE: A portable upright view of the chest was obtained. HISTORY: follow up respiratory failure COMPARISONS: 03/02/2019 FINDINGS: The heart is mildly enlarged. The lungs remain diffusely congested. There is stable bilateral airspac e disease. Effusions cannot be excluded. The ET tube and NG tube appear in good position. The skeleta l structures do not show any acute changes. IMPRESSION: Stable pulmonary congestion with bilateral airspace disease and probable effusions. No change from th e previous study.. This document is electronically signed by Ayad Hope MD., March 03 2019 04:38:32 AM ET
--- NOTE | 2019-03-03 08:38 | Progress Note ---
Assessment and Plan Impression: Shock possibly hypovolemic plus minus septic Acute bilateral cerebellar stroke. Currently the patient is unresponsive, comatose. See neurology evaluation Acute respiratory failure, mechanical ventilation support. NSTEMI Control blood sugar with hyperosmolar state. Controlled Pulmonary edema versus acute lung injury. Improved. Aspiration related to arrest also a consideration Severe metabolic acidosis, lactic.still active, may need further bicarbonate during the day. Sepsis source unknown. Previously with UTI. Completed antibiotics per ID Hypokalemia. Needs potassium replacement EKOS /arterial Thrombolysis to RLE for RLE ischemia, and R leg 4 compartment fasciotomy Recommendations Appreciate GI and neurology follow-up Continue to wean pressors as tolerated. Potassium replacement On data ABGs monitor pH. Replace BiPAP as needed Consider blood sugar management goal is to maintain blood sugar between 150-180 mg per DL PRBC if Hgb < 7 Consider Lasix when possible with anasarca picture, depending on blood pressure status, currently on pressors of being weaned off Serial H&H, monitor for any bleeding. Prognosis is grave. No family members available now for follow-up case discussion. Discussed with ICU staff, in detail Critical care time was 45 minutes of [id number] evaluation and coordination of care Subjective Date of service: 03/03/19 Principal diagnosis: PVD with gangrene right toe, status post fasciotomies, NSTEMI, sepsis Interval history: Intubated Objective Vital Signs - 12hr 03/02/19 03/02/19 03/02/19 20:45 21:00 21:01 Temperature Pulse Rate 90 89 89 Pulse Rate [ Anterior Bilateral Throughout] Pulse Rate [ From Monitor] Respiratory 20 20 20 Rate Respiratory Rate [Anterior Bilateral Throughout] Blood Pressure 102/62 92/59 92/59 O2 Sat by Pulse 99 99 100 Oximetry 03/02/19 03/02/19 03/02/19 21:15 21:30 21:45 Temperature Pulse Rate 89 87 86 Pulse Rate [ Anterior Bilateral Throughout] Pulse Rate [ From Monitor] Respiratory 20 20 20 Rate Respiratory Rate [Anterior Bilateral Throughout] Blood Pressure 88/55 82/54 83/53 O2 Sat by Pulse 99 99 Oximetry 03/02/19 03/02/19 03/02/19 22:00 22:15 22:30 Temperature Pulse Rate 85 83 79 Pulse Rate [ Anterior Bilateral Throughout] Pulse Rate [ From Monitor] Respiratory 20 20 20 Rate Respiratory Rate [Anterior Bilateral Throughout] Blood Pressure 83/53 95/58 93/59 O2 Sat by Pulse 100 98 Oximetry 03/02/19 03/02/19 03/02/19 22:45 23:00 23:09 Temperature Pulse Rate 77 78 100 H Pulse Rate [ Anterior Bilateral Throughout] Pulse Rate [ From Monitor] Respiratory 20 20 Rate Respiratory Rate [Anterior Bilateral Throughout] Blood Pressure 88/56 88/57 88/57 O2 Sat by Pulse 99 100 Oximetry 03/02/19 03/02/19 03/02/19 23:15 23:30 23:45 Temperature Pulse Rate 75 74 76 Pulse Rate [ Anterior Bilateral Throughout] Pulse Rate [ From Monitor] Respiratory 20 20 20 Rate Respiratory Rate [Anterior Bilateral Throughout] Blood Pressure 89/56 88/55 97/59 O2 Sat by Pulse 100 Oximetry 03/03/19 03/03/19 03/03/19 00:00 00:15 00:30 Temperature 95.2 F L Pulse Rate 78 78 79 Pulse Rate [ Anterior Bilateral Throughout] Pulse Rate [ 77 From Monitor] Respiratory 20 20 20 Rate Respiratory Rate [Anterior Bilateral Throughout] Blood Pressure 97/61 98/61 100/62 O2 Sat by Pulse 100 100 100 Oximetry 03/03/19 03/03/19 03/03/19 00:45 01:00 01:15 Temperature Pulse Rate 78 76 80 Pulse Rate [ Anterior Bilateral Throughout] Pulse Rate [ From Monitor] Respiratory 20 20 20 Rate Respiratory Rate [Anterior Bilateral Throughout] Blood Pressure 93/61 82/52 98/63 O2 Sat by Pulse 100 Oximetry 03/03/19 03/03/19 03/03/19 01:30 01:45 02:00 Temperature Pulse Rate 81 82 82 Pulse Rate [ Anterior Bilateral Throughout] Pulse Rate [ From Monitor] Respiratory 20 20 20 Rate Respiratory Rate [Anterior Bilateral Throughout] Blood Pressure 100/61 100/62 101/62 O2 Sat by Pulse 100 100 Oximetry 03/03/19 03/03/19 03/03/19 02:15 02:30 02:43 Temperature Pulse Rate 81 82 Pulse Rate [ 100 H Anterior Bilateral Throughout] Pulse Rate [ From Monitor] Respiratory 19 20 Rate Respiratory 20 Rate [Anterior Bilateral Throughout] Blood Pressure 99/59 97/59 O2 Sat by Pulse 99 99 Oximetry 03/03/19 03/03/19 03/03/19 02:45 03:00 03:15 Temperature Pulse Rate 82 84 83 Pulse Rate [ Anterior Bilateral Throughout] Pulse Rate [ From Monitor] Respiratory 20 20 20 Rate Respiratory Rate [Anterior Bilateral Throughout] Blood Pressure 98/58 95/58 96/58 O2 Sat by Pulse 100 99 100 Oximetry 03/03/19 03/03/19 03/03/19 03:30 03:45 04:00 Temperature 97.6 F Pulse Rate 84 84 82 Pulse Rate [ Anterior Bilateral Throughout] Pulse Rate [ 83 From Monitor] Respiratory 20 20 20 Rate Respiratory Rate [Anterior Bilateral Throughout] Blood Pressure 94/58 91/57 89/55 O2 Sat by Pulse 99 99 100 Oximetry 03/03/19 03/03/19 03/03/19 04:15 04:30 04:45 Temperature Pulse Rate 82 82 81 Pulse Rate [ Anterior Bilateral Throughout] Pulse Rate [ From Monitor] Respiratory 20 20 20 Rate Respiratory Rate [Anterior Bilateral Throughout] Blood Pressure 88/54 87/53 88/52 O2 Sat by Pulse 99 99 99 Oximetry 03/03/19 03/03/19 03/03/19 05:00 05:15 05:30 Temperature Pulse Rate 81 81 80 Pulse Rate [ Anterior Bilateral Throughout] Pulse Rate [ From Monitor] Respiratory 19 20 20 Rate Respiratory Rate [Anterior Bilateral Throughout] Blood Pressure 84/52 88/55 91/59 O2 Sat by Pulse 100 100 Oximetry 03/03/19 03/03/19 03/03/19 05:45 05:48 06:00 Temperature 97.8 F Pulse Rate 80 83 84 Pulse Rate [ Anterior Bilateral Throughout] Pulse Rate [ From Monitor] Respiratory 20 20 20 Rate Respiratory Rate [Anterior Bilateral Throughout] Blood Pressure 86/54 86/54 101/65 O2 Sat by Pulse 100 100 Oximetry 03/03/19 03/03/19 03/03/19 06:03 06:15 06:30 Temperature 97.7 F Pulse Rate 83 84 85 Pulse Rate [ Anterior Bilateral Throughout] Pulse Rate [ From Monitor] Respiratory 20 20 20 Rate Respiratory Rate [Anterior Bilateral Throughout] Blood Pressure 101/65 100/63 101/65 O2 Sat by Pulse 100 100 100 Oximetry 03/03/19 03/03/19 03/03/19 06:33 06:45 06:58 Temperature 97.7 F Pulse Rate 83 84 83 Pulse Rate [ Anterior Bilateral Throughout] Pulse Rate [ From Monitor] Respiratory 20 21 Rate Respiratory Rate [Anterior Bilateral Throughout] Blood Pressure 100/63 96/59 96/59 O2 Sat by Pulse 100 100 100 Oximetry 03/03/19 03/03/19 03/03/19 07:00 07:03 07:15 Temperature 97.7 F Pulse Rate 82 84 87 Pulse Rate [ 82 Anterior Bilateral Throughout] Pulse Rate [ From Monitor] Respiratory 20 20 20 Rate Respiratory 20 Rate [Anterior Bilateral Throughout] Blood Pressure 100/63 100/63 107/65 O2 Sat by Pulse 100 100 100 Oximetry 03/03/19 03/03/19 03/03/19 07:16 07:30 07:45 Temperature Pulse Rate 86 85 Pulse Rate [ 87 Anterior Bilateral Throughout] Pulse Rate [ From Monitor] Respiratory 20 20 Rate Respiratory 20 Rate [Anterior Bilateral Throughout] Blood Pressure 100/65 103/65 O2 Sat by Pulse 100 100 Oximetry 03/03/19 08:00 Temperature 98.2 F Pulse Rate 86 Pulse Rate [ Anterior Bilateral Throughout] Pulse Rate [ From Monitor] Respiratory 20 Rate Respiratory Rate [Anterior Bilateral Throughout] Blood Pressure 104/65 O2 Sat by Pulse 100 Oximetry Constitutional: comatose Eyes: non-icteric ENT: other (ETT in position) Neck: supple, no JVD (broad neck) Ascultation: Bilateral: rhonchi (bilaterally) Cardiovascular: regular rate and rhythm Gastrointestinal: normoactive bowel sounds, non-distended Extremities: other (right lower extremity bandage in place, somewhat cold, distal gangrene toes) Neurologic: other (pupils approximately 4-5 mm and reactive comatose off sedation, GCS 3,poorly reactive) CBC and BMP: 03/03/19 00:45 03/03/19 00:45 ABG, PT/INR, D-dimer: ABG POC ABG pH 7.437 (7.35-7.45) 03/03/19 04:52 POC ABG pCO2 34.7 (35-45) L 03/03/19 04:52 POC ABG pO2 51 (80-105) L 03/03/19 04:52 POC ABG HCO3 23.4 (22-26 mml/L) 03/03/19 04:52 POC ABG Total CO2 24 (23-27mmol/L) 03/03/19 04:52 POC ABG O2 Sat 87 03/03/19 04:52 PT/INR, D-dimer PT 15.5 Sec. (12.2-14.9) H 02/28/19 18:33 INR 1.16 (0.87-1.13) H 02/28/19 18:33 D-Dimer 1481.17 ng/mlDDU (0-234) H 02/22/19 08:26 Abnormal lab findings: Abnormal Labs 02/13/19 02/13/19 02/13/19 13:55 14:08 14:08 WBC 21.3 H RBC 3.00 L Hgb 8.5 L Hct 26.7 L MCHC RDW 16.4 H Plt Count 528 H Seg Neuts % (Manual) 89.0 H Lymphocytes % (Manual) 4.0 L Monocytes % (Manual) Nucleated RBC % 2.0 H Seg Neutrophils # Man 19.0 H Lymphocytes # (Manual) 0.9 L Monocytes # (Manual) PT INR D-Dimer POC ABG pH POC ABG pCO2 POC ABG pO2 Sodium 129 L Potassium 5.4 H Chloride 91.8 L Carbon Dioxide 17 L BUN 52 H Creatinine 2.5 H Glucose 402 H POC Glucose 389 H Hemoglobin A1c Lactic Acid Calcium Magnesium Total Bilirubin 1.50 H Direct Bilirubin 1.1 H AST 61 H ALT Alkaline Phosphatase 271 H Total Creatine Kinase CK-MB (CK-2) Troponin T NT-Pro-B Natriuret Pep Total Protein Albumin 2.3 L Triglycerides LDL Cholesterol Direct HDL Cholesterol Urine WBC (Auto) Crossmatch 02/13/19 02/13/19 02/13/19 14:15 14:15 14:20 WBC RBC Hgb Hct MCHC RDW Plt Count Seg Neuts % (Manual) Lymphocytes % (Manual) Monocytes % (Manual) Nucleated RBC % Seg Neutrophils # Man Lymphocytes # (Manual) Monocytes # (Manual) PT 15.6 H INR 1.17 H D-Dimer POC ABG pH POC ABG pCO2 POC ABG pO2 Sodium Potassium Chloride Carbon Dioxide BUN Creatinine Glucose POC Glucose Hemoglobin A1c Lactic Acid Calcium Magnesium 1.60 L Total Bilirubin Direct Bilirubin AST ALT Alkaline Phosphatase Total Creatine Kinase 1295 H CK-MB (CK-2) Troponin T 0.072 H NT-Pro-B Natriuret Pep 6167 H Total Protein Albumin Triglycerides 329 H LDL Cholesterol Direct 36 L HDL Cholesterol 17 L Urine WBC (Auto) Crossmatch 02/13/19 02/13/19 02/13/19 15:36 18:15 20:59 WBC RBC Hgb Hct MCHC RDW Plt Count Seg Neuts % (Manual) Lymphocytes % (Manual) Monocytes % (Manual) Nucleated RBC % Seg Neutrophils # Man Lymphocytes # (Manual) Monocytes # (Manual) PT INR D-Dimer POC ABG pH POC ABG pCO2 POC ABG pO2 Sodium Potassium Chloride Carbon Dioxide BUN Creatinine Glucose POC Glucose 293 H 390 H Hemoglobin A1c 9.2 H Lactic Acid Calcium Magnesium Total Bilirubin Direct Bilirubin AST ALT Alkaline Phosphatase Total Creatine Kinase CK-MB (CK-2) Troponin T NT-Pro-B Natriuret Pep Total Protein Albumin Triglycerides LDL Cholesterol Direct HDL Cholesterol Urine WBC (Auto) Crossmatch 02/14/19 02/14/19 02/14/19 07:45 08:15 08:15 WBC 23.2 H RBC 2.89 L Hgb 8.3 L Hct 25.3 L MCHC RDW 16.6 H Plt Count 457 H Seg Neuts % (Manual) 91.0 H Lymphocytes % (Manual) 3.0 L Monocytes % (Manual) Nucleated RBC % Seg Neutrophils # Man 21.1 H Lymphocytes # (Manual) 0.7 L Monocytes # (Manual) 1.2 H PT INR D-Dimer POC ABG pH POC ABG pCO2 POC ABG pO2 Sodium 126 L Potassium 5.3 H Chloride 91.5 L Carbon Dioxide 17 L BUN 65 H Creatinine 2.4 H Glucose 418 H POC Glucose Hemoglobin A1c Lactic Acid Calcium 8.2 L Magnesium 2.90 H Total Bilirubin 1.60 H Direct Bilirubin AST 47 H ALT Alkaline Phosphatase 218 H Total Creatine Kinase CK-MB (CK-2) Troponin T NT-Pro-B Natriuret Pep Total Protein 6.2 L Albumin 2.2 L Triglycerides LDL Cholesterol Direct HDL Cholesterol Urine WBC (Auto) Crossmatch 02/14/19 02/14/19 02/14/19 09:07 09:30 18:53 WBC RBC Hgb Hct MCHC RDW Plt Count Seg Neuts % (Manual) Lymphocytes % (Manual) Monocytes % (Manual) Nucleated RBC % Seg Neutrophils # Man Lymphocytes # (Manual) Monocytes # (Manual) PT INR D-Dimer POC ABG pH POC ABG pCO2 POC ABG pO2 Sodium Potassium Chloride Carbon Dioxide BUN Creatinine Glucose POC Glucose 384 H 353 H Hemoglobin A1c Lactic Acid Calcium Magnesium Total Bilirubin Direct Bilirubin AST ALT Alkaline Phosphatase Total Creatine Kinase CK-MB (CK-2) Troponin T NT-Pro-B Natriuret Pep Total Protein Albumin Triglycerides LDL Cholesterol Direct HDL Cholesterol Urine WBC (Auto) > 182.0 H Crossmatch 02/14/19 02/14/19 02/15/19 21:33 21:40 01:45 WBC RBC Hgb Hct MCHC RDW Plt Count Seg Neuts % (Manual) Lymphocytes % (Manual) Monocytes % (Manual) Nucleated RBC % Seg Neutrophils # Man Lymphocytes # (Manual) Monocytes # (Manual) PT INR D-Dimer POC ABG pH POC ABG pCO2 POC ABG pO2 Sodium Potassium Chloride Carbon Dioxide BUN Creatinine Glucose POC Glucose 404 H 360 H 299 H Hemoglobin A1c Lactic Acid Calcium Magnesium Total Bilirubin Direct Bilirubin AST ALT Alkaline Phosphatase Total Creatine Kinase CK-MB (CK-2) Troponin T NT-Pro-B Natriuret Pep Total Protein Albumin Triglycerides LDL Cholesterol Direct HDL Cholesterol Urine WBC (Auto) Crossmatch 02/15/19 02/15/19 02/15/19 05:32 05:38 11:35 WBC RBC Hgb Hct MCHC RDW Plt Count Seg Neuts % (Manual) Lymphocytes % (Manual) Monocytes % (Manual) Nucleated RBC % Seg Neutrophils # Man Lymphocytes # (Manual) Monocytes # (Manual) PT INR D-Dimer POC ABG pH POC ABG pCO2 POC ABG pO2 Sodium Potassium Chloride Carbon Dioxide BUN Creatinine Glucose POC Glucose 402 H 393 H Hemoglobin A1c Lactic Acid Calcium Magnesium 2.80 H Total Bilirubin Direct Bilirubin AST ALT Alkaline Phosphatase Total Creatine Kinase 448 H CK-MB (CK-2) Troponin T NT-Pro-B Natriuret Pep Total Protein Albumin Triglycerides LDL Cholesterol Direct HDL Cholesterol Urine WBC (Auto) Crossmatch 02/15/19 02/15/19 02/15/19 14:15 14:48 17:21 WBC RBC Hgb Hct MCHC RDW Plt Count Seg Neuts % (Manual) Lymphocytes % (Manual) Monocytes % (Manual) Nucleated RBC % Seg Neutrophils # Man Lymphocytes # (Manual) Monocytes # (Manual) PT INR D-Dimer POC ABG pH POC ABG pCO2 POC ABG pO2 Sodium 128 L Potassium Chloride 92.4 L Carbon Dioxide 21 L BUN 86 H Creatinine 1.9 H Glucose 436 H POC Glucose 386 H 347 H Hemoglobin A1c Lactic Acid Calcium 8.1 L Magnesium Total Bilirubin Direct Bilirubin AST ALT Alkaline Phosphatase Total Creatine Kinase CK-MB (CK-2) Troponin T NT-Pro-B Natriuret Pep Total Protein Albumin Triglycerides LDL Cholesterol Direct HDL Cholesterol Urine WBC (Auto) Crossmatch 02/15/19 02/15/19 02/16/19 22:32 23:51 04:08 WBC RBC Hgb Hct MCHC RDW Plt Count Seg Neuts % (Manual) Lymphocytes % (Manual) Monocytes % (Manual) Nucleated RBC % Seg Neutrophils # Man Lymphocytes # (Manual) Monocytes # (Manual) PT INR D-Dimer POC ABG pH POC ABG pCO2 POC ABG pO2 Sodium Potassium Chloride Carbon Dioxide BUN Creatinine Glucose POC Glucose 272 H 244 H 253 H Hemoglobin A1c Lactic Acid Calcium Magnesium Total Bilirubin Direct Bilirubin AST ALT Alkaline Phosphatase Total Creatine Kinase CK-MB (CK-2) Troponin T NT-Pro-B Natriuret Pep Total Protein Albumin Triglycerides LDL Cholesterol Direct HDL Cholesterol Urine WBC (Auto) Crossmatch 02/16/19 02/16/19 02/16/19 05:29 08:52 11:55 WBC RBC Hgb Hct MCHC RDW Plt Count Seg Neuts % (Manual) Lymphocytes % (Manual) Monocytes % (Manual) Nucleated RBC % Seg Neutrophils # Man Lymphocytes # (Manual) Monocytes # (Manual) PT INR D-Dimer POC ABG pH POC ABG pCO2 POC ABG pO2 Sodium Potassium Chloride Carbon Dioxide BUN Creatinine Glucose POC Glucose 262 H 313 H Hemoglobin A1c Lactic Acid Calcium Magnesium Total Bilirubin Direct Bilirubin AST ALT Alkaline Phosphatase Total Creatine Kinase 200 H CK-MB (CK-2) Troponin T NT-Pro-B Natriuret Pep Total Protein Albumin Triglycerides LDL Cholesterol Direct HDL Cholesterol Urine WBC (Auto) Crossmatch 02/16/19 02/16/19 02/17/19 16:20 22:38 00:15 WBC RBC Hgb Hct MCHC RDW Plt Count Seg Neuts % (Manual) Lymphocytes % (Manual) Monocytes % (Manual) Nucleated RBC % Seg Neutrophils # Man Lymphocytes # (Manual) Monocytes # (Manual) PT INR D-Dimer POC ABG pH POC ABG pCO2 POC ABG pO2 Sodium 131 L Potassium Chloride 95.7 L Carbon Dioxide 21 L BUN 70 H Creatinine 1.3 H Glucose 121 H POC Glucose 146 H 125 H Hemoglobin A1c Lactic Acid Calcium 8.0 L Magnesium Total Bilirubin Direct Bilirubin AST ALT Alkaline Phosphatase Total Creatine Kinase CK-MB (CK-2) Troponin T NT-Pro-B Natriuret Pep Total Protein Albumin Triglycerides LDL Cholesterol Direct HDL Cholesterol Urine WBC (Auto) Crossmatch 02/17/19 02/17/19 02/17/19 03:49 07:32 10:41 WBC 13.3 H RBC 2.92 L Hgb 8.2 L Hct 24.6 L MCHC RDW 16.2 H Plt Count Seg Neuts % (Manual) 85.0 H Lymphocytes % (Manual) 8.0 L Monocytes % (Manual) Nucleated RBC % Seg Neutrophils # Man 11.3 H Lymphocytes # (Manual) 1.1 L Monocytes # (Manual) PT INR D-Dimer POC ABG pH POC ABG pCO2 POC ABG pO2 Sodium 129 L Potassium 5.2 H D Chloride 95.9 L Carbon Dioxide 18 L BUN 69 H Creatinine 1.4 H Glucose POC Glucose 146 H Hemoglobin A1c Lactic Acid Calcium 8.1 L Magnesium Total Bilirubin Direct Bilirubin AST ALT Alkaline Phosphatase Total Creatine Kinase CK-MB (CK-2) Troponin T NT-Pro-B Natriuret Pep Total Protein Albumin Triglycerides LDL Cholesterol Direct HDL Cholesterol Urine WBC (Auto) Crossmatch 02/17/19 02/17/19 02/18/19 11:14 16:18 01:14 WBC 14.6 H RBC 2.53 L Hgb 7.1 L Hct 21.7 L MCHC RDW 16.6 H Plt Count Seg Neuts % (Manual) 72.0 H Lymphocytes % (Manual) 8.0 L Monocytes % (Manual) 11.0 H Nucleated RBC % Seg Neutrophils # Man 10.5 H Lymphocytes # (Manual) Monocytes # (Manual) 1.6 H PT INR D-Dimer POC ABG pH POC ABG pCO2 POC ABG pO2 Sodium Potassium Chloride Carbon Dioxide BUN Creatinine Glucose POC Glucose 219 H 176 H Hemoglobin A1c Lactic Acid Calcium Magnesium Total Bilirubin Direct Bilirubin AST ALT Alkaline Phosphatase Total Creatine Kinase CK-MB (CK-2) Troponin T NT-Pro-B Natriuret Pep Total Protein Albumin Triglycerides LDL Cholesterol Direct HDL Cholesterol Urine WBC (Auto) Crossmatch 02/18/19 02/18/19 02/18/19 04:25 11:35 11:57 WBC RBC Hgb Hct MCHC RDW Plt Count Seg Neuts % (Manual) Lymphocytes % (Manual) Monocytes % (Manual) Nucleated RBC % Seg Neutrophils # Man Lymphocytes # (Manual) Monocytes # (Manual) PT INR D-Dimer POC ABG pH POC ABG pCO2 POC ABG pO2 Sodium 130 L Potassium Chloride 94.7 L Carbon Dioxide BUN 53 H Creatinine Glucose POC Glucose 197 H Hemoglobin A1c Lactic Acid Calcium 7.8 L Magnesium Total Bilirubin Direct Bilirubin AST ALT Alkaline Phosphatase Total Creatine Kinase CK-MB (CK-2) Troponin T NT-Pro-B Natriuret Pep Total Protein Albumin Triglycerides LDL Cholesterol Direct HDL Cholesterol Urine WBC (Auto) Crossmatch See Detail 02/18/19 02/18/19 02/19/19 16:32 21:26 07:01 WBC RBC Hgb Hct MCHC RDW Plt Count Seg Neuts % (Manual) Lymphocytes % (Manual) Monocytes % (Manual) Nucleated RBC % Seg Neutrophils # Man Lymphocytes # (Manual) Monocytes # (Manual) PT INR D-Dimer POC ABG pH POC ABG pCO2 POC ABG pO2 Sodium 135 L Potassium Chloride Carbon Dioxide BUN 36 H Creatinine Glucose POC Glucose 108 H 107 H Hemoglobin A1c Lactic Acid Calcium 7.9 L Magnesium Total Bilirubin Direct Bilirubin AST ALT Alkaline Phosphatase Total Creatine Kinase CK-MB (CK-2) Troponin T NT-Pro-B Natriuret Pep Total Protein Albumin Triglycerides LDL Cholesterol Direct HDL Cholesterol Urine WBC (Auto) Crossmatch 02/19/19 02/19/19 02/19/19 11:11 13:46 15:19 WBC 12.0 H RBC 2.63 L Hgb 7.5 L Hct 23.3 L MCHC RDW 16.6 H Plt Count Seg Neuts % (Manual) 74.0 H Lymphocytes % (Manual) Monocytes % (Manual) Nucleated RBC % Seg Neutrophils # Man 8.9 H Lymphocytes # (Manual) Monocytes # (Manual) PT INR D-Dimer POC ABG pH POC ABG pCO2 POC ABG pO2 Sodium Potassium Chloride Carbon Dioxide BUN Creatinine Glucose POC Glucose 125 H 181 H Hemoglobin A1c Lactic Acid Calcium Magnesium Total Bilirubin Direct Bilirubin AST ALT Alkaline Phosphatase Total Creatine Kinase CK-MB (CK-2) Troponin T NT-Pro-B Natriuret Pep Total Protein Albumin Triglycerides LDL Cholesterol Direct HDL Cholesterol Urine WBC (Auto) Crossmatch 02/19/19 02/20/19 02/20/19 22:04 02:47 05:25 WBC RBC Hgb Hct MCHC RDW Plt Count Seg Neuts % (Manual) Lymphocytes % (Manual) Monocytes % (Manual) Nucleated RBC % Seg Neutrophils # Man Lymphocytes # (Manual) Monocytes # (Manual) PT INR D-Dimer POC ABG pH POC ABG pCO2 POC ABG pO2 Sodium Potassium Chloride Carbon Dioxide BUN Creatinine Glucose POC Glucose 298 H 136 H 106 H Hemoglobin A1c Lactic Acid Calcium Magnesium Total Bilirubin Direct Bilirubin AST ALT Alkaline Phosphatase Total Creatine Kinase CK-MB (CK-2) Troponin T NT-Pro-B Natriuret Pep Total Protein Albumin Triglycerides LDL Cholesterol Direct HDL Cholesterol Urine WBC (Auto) Crossmatch 02/20/19 02/20/19 02/20/19 06:07 07:55 12:17 WBC RBC Hgb Hct MCHC RDW Plt Count Seg Neuts % (Manual) Lymphocytes % (Manual) Monocytes % (Manual) Nucleated RBC % Seg Neutrophils # Man Lymphocytes # (Manual) Monocytes # (Manual) PT INR D-Dimer POC ABG pH POC ABG pCO2 POC ABG pO2 Sodium Potassium Chloride Carbon Dioxide BUN 23 H Creatinine Glucose 105 H POC Glucose 112 H 195 H Hemoglobin A1c Lactic Acid Calcium 7.4 L Magnesium Total Bilirubin Direct Bilirubin AST ALT Alkaline Phosphatase Total Creatine Kinase CK-MB (CK-2) Troponin T NT-Pro-B Natriuret Pep Total Protein Albumin Triglycerides LDL Cholesterol Direct HDL Cholesterol Urine WBC (Auto) Crossmatch 02/20/19 02/20/19 02/21/19 16:34 22:23 11:35 WBC RBC Hgb Hct MCHC RDW Plt Count Seg Neuts % (Manual) Lymphocytes % (Manual) Monocytes % (Manual) Nucleated RBC % Seg Neutrophils # Man Lymphocytes # (Manual) Monocytes # (Manual) PT INR D-Dimer POC ABG pH POC ABG pCO2 POC ABG pO2 Sodium Potassium Chloride Carbon Dioxide BUN Creatinine Glucose POC Glucose 117 H 153 H 142 H Hemoglobin A1c Lactic Acid Calcium Magnesium Total Bilirubin Direct Bilirubin AST ALT Alkaline Phosphatase Total Creatine Kinase CK-MB (CK-2) Troponin T NT-Pro-B Natriuret Pep Total Protein Albumin Triglycerides LDL Cholesterol Direct HDL Cholesterol Urine WBC (Auto) Crossmatch 02/21/19 02/21/19 02/21/19 11:38 17:12 19:19 WBC RBC Hgb Hct MCHC RDW Plt Count Seg Neuts % (Manual) Lymphocytes % (Manual) Monocytes % (Manual) Nucleated RBC % Seg Neutrophils # Man Lymphocytes # (Manual) Monocytes # (Manual) PT INR D-Dimer POC ABG pH POC ABG pCO2 POC ABG pO2 Sodium 135 L Potassium Chloride Carbon Dioxide 18 L BUN Creatinine Glucose 129 H POC Glucose 61 L 135 H Hemoglobin A1c Lactic Acid Calcium 7.4 L Magnesium Total Bilirubin Direct Bilirubin AST ALT Alkaline Phosphatase Total Creatine Kinase CK-MB (CK-2) Troponin T NT-Pro-B Natriuret Pep Total Protein Albumin Triglycerides LDL Cholesterol Direct HDL Cholesterol Urine WBC (Auto) Crossmatch 02/21/19 02/22/19 02/22/19 21:24 04:18 04:49 WBC RBC Hgb Hct MCHC RDW Plt Count Seg Neuts % (Manual) Lymphocytes % (Manual) Monocytes % (Manual) Nucleated RBC % Seg Neutrophils # Man Lymphocytes # (Manual) Monocytes # (Manual) PT INR D-Dimer POC ABG pH 7.459 H POC ABG pCO2 POC ABG pO2 Sodium Potassium Chloride Carbon Dioxide BUN Creatinine Glucose POC Glucose 146 H 186 H Hemoglobin A1c Lactic Acid Calcium Magnesium Total Bilirubin Direct Bilirubin AST ALT Alkaline Phosphatase Total Creatine Kinase CK-MB (CK-2) Troponin T NT-Pro-B Natriuret Pep Total Protein Albumin Triglycerides LDL Cholesterol Direct HDL Cholesterol Urine WBC (Auto) Crossmatch 02/22/19 02/22/19 02/22/19 07:56 08:26 08:26 WBC RBC Hgb Hct MCHC RDW Plt Count Seg Neuts % (Manual) Lymphocytes % (Manual) Monocytes % (Manual) Nucleated RBC % Seg Neutrophils # Man Lymphocytes # (Manual) Monocytes # (Manual) PT INR D-Dimer 1481.17 H POC ABG pH POC ABG pCO2 POC ABG pO2 Sodium 133 L Potassium 5.3 H Chloride Carbon Dioxide 19 L BUN Creatinine Glucose 216 H POC Glucose 239 H Hemoglobin A1c Lactic Acid Calcium 7.7 L Magnesium Total Bilirubin Direct Bilirubin AST ALT Alkaline Phosphatase Total Creatine Kinase CK-MB (CK-2) Troponin T NT-Pro-B Natriuret Pep Total Protein Albumin Triglycerides LDL Cholesterol Direct HDL Cholesterol Urine WBC (Auto) Crossmatch 02/22/19 02/22/19 02/22/19 11:59 17:06 22:00 WBC RBC Hgb Hct MCHC RDW Plt Count Seg Neuts % (Manual) Lymphocytes % (Manual) Monocytes % (Manual) Nucleated RBC % Seg Neutrophils # Man Lymphocytes # (Manual) Monocytes # (Manual) PT INR D-Dimer POC ABG pH POC ABG pCO2 POC ABG pO2 Sodium Potassium Chloride Carbon Dioxide BUN Creatinine Glucose POC Glucose 238 H 61 L 174 H Hemoglobin A1c Lactic Acid Calcium Magnesium Total Bilirubin Direct Bilirubin AST ALT Alkaline Phosphatase Total Creatine Kinase CK-MB (CK-2) Troponin T NT-Pro-B Natriuret Pep Total Protein Albumin Triglycerides LDL Cholesterol Direct HDL Cholesterol Urine WBC (Auto) Crossmatch 02/23/19 02/23/19 02/23/19 06:12 07:50 21:43 WBC RBC Hgb Hct MCHC RDW Plt Count Seg Neuts % (Manual) Lymphocytes % (Manual) Monocytes % (Manual) Nucleated RBC % Seg Neutrophils # Man Lymphocytes # (Manual) Monocytes # (Manual) PT INR D-Dimer POC ABG pH POC ABG pCO2 POC ABG pO2 Sodium Potassium Chloride Carbon Dioxide 19 L BUN 18 H Creatinine Glucose 52 L POC Glucose 55 L 107 H Hemoglobin A1c Lactic Acid Calcium 8.3 L Magnesium Total Bilirubin Direct Bilirubin AST ALT Alkaline Phosphatase Total Creatine Kinase CK-MB (CK-2) Troponin T NT-Pro-B Natriuret Pep Total Protein Albumin Triglycerides LDL Cholesterol Direct HDL Cholesterol Urine WBC (Auto) Crossmatch 02/24/19 02/24/19 02/24/19 07:29 11:29 16:05 WBC RBC Hgb Hct MCHC RDW Plt Count Seg Neuts % (Manual) Lymphocytes % (Manual) Monocytes % (Manual) Nucleated RBC % Seg Neutrophils # Man Lymphocytes # (Manual) Monocytes # (Manual) PT INR D-Dimer POC ABG pH POC ABG pCO2 POC ABG pO2 Sodium Potassium Chloride Carbon Dioxide BUN Creatinine Glucose POC Glucose 176 H 253 H 179 H Hemoglobin A1c Lactic Acid Calcium Magnesium Total Bilirubin Direct Bilirubin AST ALT Alkaline Phosphatase Total Creatine Kinase CK-MB (CK-2) Troponin T NT-Pro-B Natriuret Pep Total Protein Albumin Triglycerides LDL Cholesterol Direct HDL Cholesterol Urine WBC (Auto) Crossmatch 02/24/19 02/25/19 02/25/19 21:50 07:57 11:54 WBC RBC Hgb Hct MCHC RDW Plt Count Seg Neuts % (Manual) Lymphocytes % (Manual) Monocytes % (Manual) Nucleated RBC % Seg Neutrophils # Man Lymphocytes # (Manual) Monocytes # (Manual) PT INR D-Dimer POC ABG pH POC ABG pCO2 POC ABG pO2 Sodium Potassium Chloride Carbon Dioxide BUN Creatinine Glucose POC Glucose 200 H 249 H 260 H Hemoglobin A1c Lactic Acid Calcium Magnesium Total Bilirubin Direct Bilirubin AST ALT Alkaline Phosphatase Total Creatine Kinase CK-MB (CK-2) Troponin T NT-Pro-B Natriuret Pep Total Protein Albumin Triglycerides LDL Cholesterol Direct HDL Cholesterol Urine WBC (Auto) Crossmatch 02/25/19 02/25/19 02/26/19 16:34 21:52 07:54 WBC RBC Hgb Hct MCHC RDW Plt Count Seg Neuts % (Manual) Lymphocytes % (Manual) Monocytes % (Manual) Nucleated RBC % Seg Neutrophils # Man Lymphocytes # (Manual) Monocytes # (Manual) PT INR D-Dimer POC ABG pH POC ABG pCO2 POC ABG pO2 Sodium Potassium Chloride Carbon Dioxide BUN Creatinine Glucose POC Glucose 198 H 254 H 213 H Hemoglobin A1c Lactic Acid Calcium Magnesium Total Bilirubin Direct Bilirubin AST ALT Alkaline Phosphatase Total Creatine Kinase CK-MB (CK-2) Troponin T NT-Pro-B Natriuret Pep Total Protein Albumin Triglycerides LDL Cholesterol Direct HDL Cholesterol Urine WBC (Auto) Crossmatch 02/26/19 02/26/19 02/26/19 11:49 16:00 22:00 WBC RBC Hgb Hct MCHC RDW Plt Count Seg Neuts % (Manual) Lymphocytes % (Manual) Monocytes % (Manual) Nucleated RBC % Seg Neutrophils # Man Lymphocytes # (Manual) Monocytes # (Manual) PT INR D-Dimer POC ABG pH POC ABG pCO2 POC ABG pO2 Sodium Potassium Chloride Carbon Dioxide BUN Creatinine Glucose POC Glucose 306 H 183 H 162 H Hemoglobin A1c Lactic Acid Calcium Magnesium Total Bilirubin Direct Bilirubin AST ALT Alkaline Phosphatase Total Creatine Kinase CK-MB (CK-2) Troponin T NT-Pro-B Natriuret Pep Total Protein Albumin Triglycerides LDL Cholesterol Direct HDL Cholesterol Urine WBC (Auto) Crossmatch 02/27/19 02/27/19 02/27/19 07:44 11:11 16:57 WBC RBC Hgb Hct MCHC RDW Plt Count Seg Neuts % (Manual) Lymphocytes % (Manual) Monocytes % (Manual) Nucleated RBC % Seg Neutrophils # Man Lymphocytes # (Manual) Monocytes # (Manual) PT INR D-Dimer POC ABG pH POC ABG pCO2 POC ABG pO2 Sodium Potassium Chloride Carbon Dioxide BUN Creatinine Glucose POC Glucose 171 H 217 H 199 H Hemoglobin A1c Lactic Acid Calcium Magnesium Total Bilirubin Direct Bilirubin AST ALT Alkaline Phosphatase Total Creatine Kinase CK-MB (CK-2) Troponin T NT-Pro-B Natriuret Pep Total Protein Albumin Triglycerides LDL Cholesterol Direct HDL Cholesterol Urine WBC (Auto) Crossmatch 02/27/19 02/28/19 02/28/19 21:48 07:36 11:41 WBC RBC Hgb Hct MCHC RDW Plt Count Seg Neuts % (Manual) Lymphocytes % (Manual) Monocytes % (Manual) Nucleated RBC % Seg Neutrophils # Man Lymphocytes # (Manual) Monocytes # (Manual) PT INR D-Dimer POC ABG pH POC ABG pCO2 POC ABG pO2 Sodium Potassium Chloride Carbon Dioxide BUN Creatinine Glucose POC Glucose 161 H 148 H 244 H Hemoglobin A1c Lactic Acid Calcium Magnesium Total Bilirubin Direct Bilirubin AST ALT Alkaline Phosphatase Total Creatine Kinase CK-MB (CK-2) Troponin T NT-Pro-B Natriuret Pep Total Protein Albumin Triglycerides LDL Cholesterol Direct HDL Cholesterol Urine WBC (Auto) Crossmatch 02/28/19 02/28/19 02/28/19 16:32 16:53 17:28 WBC RBC Hgb Hct MCHC RDW Plt Count Seg Neuts % (Manual) Lymphocytes % (Manual) Monocytes % (Manual) Nucleated RBC % Seg Neutrophils # Man Lymphocytes # (Manual) Monocytes # (Manual) PT INR D-Dimer POC ABG pH POC ABG pCO2 POC ABG pO2 53 L Sodium Potassium Chloride Carbon Dioxide BUN Creatinine Glucose POC Glucose 283 H Hemoglobin A1c Lactic Acid Calcium Magnesium Total Bilirubin Direct Bilirubin AST ALT Alkaline Phosphatase Total Creatine Kinase CK-MB (CK-2) Troponin T 0.119 H* NT-Pro-B Natriuret Pep Total Protein Albumin Triglycerides LDL Cholesterol Direct HDL Cholesterol Urine WBC (Auto) Crossmatch 02/28/19 02/28/19 02/28/19 18:33 18:33 18:33 WBC 11.5 H RBC 2.35 L Hgb 6.5 L Hct 21.2 L MCHC RDW 17.6 H Plt Count 631 H Seg Neuts % (Manual) 87.0 H Lymphocytes % (Manual) 9.0 L Monocytes % (Manual) Nucleated RBC % Seg Neutrophils # Man 10.0 H Lymphocytes # (Manual) 1.0 L Monocytes # (Manual) PT 15.5 H INR 1.16 H D-Dimer POC ABG pH POC ABG pCO2 POC ABG pO2 Sodium Potassium Chloride Carbon Dioxide BUN Creatinine Glucose POC Glucose Hemoglobin A1c Lactic Acid Calcium Magnesium Total Bilirubin Direct Bilirubin AST ALT Alkaline Phosphatase Total Creatine Kinase 165 H CK-MB (CK-2) 4.9 H Troponin T 0.123 H* NT-Pro-B Natriuret Pep Total Protein Albumin Triglycerides LDL Cholesterol Direct HDL Cholesterol Urine WBC (Auto) Crossmatch 02/28/19 02/28/19 02/28/19 18:33 19:55 21:39 WBC RBC Hgb Hct MCHC RDW Plt Count Seg Neuts % (Manual) Lymphocytes % (Manual) Monocytes % (Manual) Nucleated RBC % Seg Neutrophils # Man Lymphocytes # (Manual) Monocytes # (Manual) PT INR D-Dimer POC ABG pH 7.319 L POC ABG pCO2 POC ABG pO2 196 H Sodium 136 L Potassium 5.6 H Chloride Carbon Dioxide 14 L BUN 21 H Creatinine 1.4 H Glucose 274 H POC Glucose 277 H Hemoglobin A1c Lactic Acid Calcium 8.3 L Magnesium Total Bilirubin Direct Bilirubin AST ALT Alkaline Phosphatase 165 H Total Creatine Kinase CK-MB (CK-2) Troponin T NT-Pro-B Natriuret Pep Total Protein Albumin 2.7 L Triglycerides LDL Cholesterol Direct HDL Cholesterol Urine WBC (Auto) Crossmatch 02/28/19 02/28/19 02/28/19 22:46 22:47 22:59 WBC RBC Hgb Hct MCHC RDW Plt Count Seg Neuts % (Manual) Lymphocytes % (Manual) Monocytes % (Manual) Nucleated RBC % Seg Neutrophils # Man Lymphocytes # (Manual) Monocytes # (Manual) PT INR D-Dimer POC ABG pH 7.068 L POC ABG pCO2 34.7 L POC ABG pO2 280 H Sodium Potassium Chloride Carbon Dioxide BUN Creatinine Glucose POC Glucose Hemoglobin A1c Lactic Acid 16.50 H* Calcium Magnesium Total Bilirubin Direct Bilirubin AST ALT Alkaline Phosphatase Total Creatine Kinase CK-MB (CK-2) Troponin T 0.595 H* D NT-Pro-B Natriuret Pep Total Protein Albumin Triglycerides LDL Cholesterol Direct HDL Cholesterol Urine WBC (Auto) Crossmatch 02/28/19 03/01/19 03/01/19 22:59 00:47 00:48 WBC RBC Hgb Hct MCHC RDW Plt Count Seg Neuts % (Manual) Lymphocytes % (Manual) Monocytes % (Manual) Nucleated RBC % Seg Neutrophils # Man Lymphocytes # (Manual) Monocytes # (Manual) PT INR D-Dimer POC ABG pH POC ABG pCO2 POC ABG pO2 Sodium Potassium 7.0 H* D 7.3 H* Chloride 97.5 L Carbon Dioxide 10 L 7 L* BUN 22 H 23 H Creatinine 1.7 H 2.0 H Glucose 223 H 222 H POC Glucose Hemoglobin A1c Lactic Acid 19.80 H* Calcium 8.1 L Magnesium Total Bilirubin Direct Bilirubin AST 107 H 223 H ALT Alkaline Phosphatase 208 H 209 H Total Creatine Kinase CK-MB (CK-2) Troponin T NT-Pro-B Natriuret Pep Total Protein 5.9 L Albumin 2.7 L 2.5 L Triglycerides LDL Cholesterol Direct HDL Cholesterol Urine WBC (Auto) Crossmatch 03/01/19 03/01/19 03/01/19 04:07 04:07 04:07 WBC RBC Hgb Hct MCHC RDW Plt Count Seg Neuts % (Manual) Lymphocytes % (Manual) Monocytes % (Manual) Nucleated RBC % Seg Neutrophils # Man Lymphocytes # (Manual) Monocytes # (Manual) PT INR D-Dimer POC ABG pH POC ABG pCO2 POC ABG pO2 Sodium Potassium 6.1 H* Chloride Carbon Dioxide 6 L* BUN 22 H Creatinine 2.0 H Glucose 269 H POC Glucose Hemoglobin A1c Lactic Acid 22.60 H* Calcium 6.9 L Magnesium Total Bilirubin Direct Bilirubin AST 1971 H ALT 686 H Alkaline Phosphatase 193 H Total Creatine Kinase CK-MB (CK-2) Troponin T 2.910 H* D NT-Pro-B Natriuret Pep Total Protein 4.6 L D Albumin 2.0 L Triglycerides LDL Cholesterol Direct HDL Cholesterol Urine WBC (Auto) Crossmatch 03/01/19 03/01/19 03/01/19 04:45 05:03 05:38 WBC RBC 1.78 L Hgb 5.0 L* Hct 17.4 L* MCHC 29 L RDW 18.3 H Plt Count Seg Neuts % (Manual) 78.0 H Lymphocytes % (Manual) Monocytes % (Manual) Nucleated RBC % 2.0 H Seg Neutrophils # Man Lymphocytes # (Manual) Monocytes # (Manual) PT INR D-Dimer POC ABG pH 6.806 L 6.895 L POC ABG pCO2 POC ABG pO2 54 L 213 H Sodium Potassium Chloride Carbon Dioxide BUN Creatinine Glucose POC Glucose Hemoglobin A1c Lactic Acid Calcium Magnesium Total Bilirubin Direct Bilirubin AST ALT Alkaline Phosphatase Total Creatine Kinase CK-MB (CK-2) Troponin T NT-Pro-B Natriuret Pep Total Protein Albumin Triglycerides LDL Cholesterol Direct HDL Cholesterol Urine WBC (Auto) Crossmatch 03/01/19 03/01/19 03/01/19 05:38 06:03 07:29 WBC RBC Hgb Hct MCHC RDW Plt Count Seg Neuts % (Manual) Lymphocytes % (Manual) Monocytes % (Manual) Nucleated RBC % Seg Neutrophils # Man Lymphocytes # (Manual) Monocytes # (Manual) PT INR D-Dimer POC ABG pH POC ABG pCO2 POC ABG pO2 Sodium Potassium Chloride Carbon Dioxide BUN Creatinine Glucose POC Glucose 310 H Hemoglobin A1c Lactic Acid 23.40 H* 24.70 H* Calcium Magnesium Total Bilirubin Direct Bilirubin AST ALT Alkaline Phosphatase Total Creatine Kinase CK-MB (CK-2) Troponin T NT-Pro-B Natriuret Pep Total Protein Albumin Triglycerides LDL Cholesterol Direct HDL Cholesterol Urine WBC (Auto) Crossmatch 03/01/19 03/01/19 03/01/19 07:30 11:38 12:02 WBC RBC Hgb Hct MCHC RDW Plt Count Seg Neuts % (Manual) Lymphocytes % (Manual) Monocytes % (Manual) Nucleated RBC % Seg Neutrophils # Man Lymphocytes # (Manual) Monocytes # (Manual) PT INR D-Dimer POC ABG pH POC ABG pCO2 POC ABG pO2 Sodium Potassium 6.3 H* Chloride Carbon Dioxide BUN Creatinine Glucose POC Glucose 326 H Hemoglobin A1c Lactic Acid Calcium Magnesium Total Bilirubin Direct Bilirubin AST ALT Alkaline Phosphatase Total Creatine Kinase CK-MB (CK-2) Troponin T NT-Pro-B Natriuret Pep Total Protein Albumin Triglycerides LDL Cholesterol Direct HDL Cholesterol Urine WBC (Auto) Crossmatch See Detail 03/01/19 03/01/19 03/01/19 12:30 17:34 18:26 WBC RBC Hgb Hct MCHC RDW Plt Count Seg Neuts % (Manual) Lymphocytes % (Manual) Monocytes % (Manual) Nucleated RBC % Seg Neutrophils # Man Lymphocytes # (Manual) Monocytes # (Manual) PT INR D-Dimer POC ABG pH 6.960 L 7.101 L POC ABG pCO2 32.7 L POC ABG pO2 117 H 109 H Sodium Potassium Chloride Carbon Dioxide BUN Creatinine Glucose POC Glucose 434 H Hemoglobin A1c Lactic Acid Calcium Magnesium Total Bilirubin Direct Bilirubin AST ALT Alkaline Phosphatase Total Creatine Kinase CK-MB (CK-2) Troponin T NT-Pro-B Natriuret Pep Total Protein Albumin Triglycerides LDL Cholesterol Direct HDL Cholesterol Urine WBC (Auto) Crossmatch 03/01/19 03/01/19 03/01/19 20:24 20:24 21:39 WBC RBC Hgb 8.9 L D Hct 28.2 L D MCHC RDW Plt Count Seg Neuts % (Manual) Lymphocytes % (Manual) Monocytes % (Manual) Nucleated RBC % Seg Neutrophils # Man Lymphocytes # (Manual) Monocytes # (Manual) PT INR D-Dimer POC ABG pH POC ABG pCO2 POC ABG pO2 Sodium Potassium 6.2 H* Chloride Carbon Dioxide BUN Creatinine Glucose POC Glucose > 500 H Hemoglobin A1c Lactic Acid Calcium Magnesium Total Bilirubin Direct Bilirubin AST ALT Alkaline Phosphatase Total Creatine Kinase CK-MB (CK-2) Troponin T NT-Pro-B Natriuret Pep Total Protein Albumin Triglycerides LDL Cholesterol Direct HDL Cholesterol Urine WBC (Auto) Crossmatch 03/01/19 03/02/19 03/02/19 22:45 01:42 04:20 WBC 13.0 H RBC 2.47 L Hgb 7.0 L Hct 22.8 L MCHC RDW 18.4 H Plt Count Seg Neuts % (Manual) 95.0 H Lymphocytes % (Manual) 0 L Monocytes % (Manual) Nucleated RBC % 8.0 H Seg Neutrophils # Man 12.4 H Lymphocytes # (Manual) 0.0 L Monocytes # (Manual) PT INR D-Dimer POC ABG pH POC ABG pCO2 POC ABG pO2 Sodium Potassium 5.9 H Chloride 93.0 L Carbon Dioxide 16 L D BUN 28 H Creatinine 2.8 H Glucose 617 H* POC Glucose > 500 H Hemoglobin A1c Lactic Acid Calcium 6.2 L Magnesium Total Bilirubin Direct Bilirubin AST ALT Alkaline Phosphatase Total Creatine Kinase CK-MB (CK-2) Troponin T NT-Pro-B Natriuret Pep Total Protein Albumin Triglycerides LDL Cholesterol Direct HDL Cholesterol Urine WBC (Auto) Crossmatch 03/02/19 03/02/19 03/02/19 04:20 05:04 05:25 WBC RBC Hgb Hct MCHC RDW Plt Count Seg Neuts % (Manual) Lymphocytes % (Manual) Monocytes % (Manual) Nucleated RBC % Seg Neutrophils # Man Lymphocytes # (Manual) Monocytes # (Manual) PT INR D-Dimer POC ABG pH POC ABG pCO2 33.8 L POC ABG pO2 Sodium 132 L Potassium Chloride 85.5 L Carbon Dioxide 21 L BUN 27 H Creatinine 2.8 H Glucose 928 H* POC Glucose > 500 H Hemoglobin A1c Lactic Acid Calcium 6.1 L Magnesium Total Bilirubin 2.00 H Direct Bilirubin AST 7855 H ALT 2210 H Alkaline Phosphatase 238 H Total Creatine Kinase CK-MB (CK-2) Troponin T 13.790 H* D NT-Pro-B Natriuret Pep Total Protein 4.0 L Albumin 1.7 L Triglycerides LDL Cholesterol Direct HDL Cholesterol Urine WBC (Auto) Crossmatch 03/02/19 03/02/19 03/02/19 09:11 10:10 11:19 WBC RBC Hgb Hct MCHC RDW Plt Count Seg Neuts % (Manual) Lymphocytes % (Manual) Monocytes % (Manual) Nucleated RBC % Seg Neutrophils # Man Lymphocytes # (Manual) Monocytes # (Manual) PT INR D-Dimer POC ABG pH POC ABG pCO2 POC ABG pO2 Sodium Potassium Chloride Carbon Dioxide BUN Creatinine Glucose POC Glucose 494 H > 500 H 413 H Hemoglobin A1c Lactic Acid Calcium Magnesium Total Bilirubin Direct Bilirubin AST ALT Alkaline Phosphatase Total Creatine Kinase CK-MB (CK-2) Troponin T NT-Pro-B Natriuret Pep Total Protein Albumin Triglycerides LDL Cholesterol Direct HDL Cholesterol Urine WBC (Auto) Crossmatch 03/02/19 03/02/19 03/02/19 12:05 13:00 14:00 WBC RBC Hgb Hct MCHC RDW Plt Count Seg Neuts % (Manual) Lymphocytes % (Manual) Monocytes % (Manual) Nucleated RBC % Seg Neutrophils # Man Lymphocytes # (Manual) Monocytes # (Manual) PT INR D-Dimer POC ABG pH POC ABG pCO2 POC ABG pO2 Sodium Potassium Chloride Carbon Dioxide BUN Creatinine Glucose POC Glucose 400 H 391 H 415 H Hemoglobin A1c Lactic Acid Calcium Magnesium Total Bilirubin Direct Bilirubin AST ALT Alkaline Phosphatase Total Creatine Kinase CK-MB (CK-2) Troponin T NT-Pro-B Natriuret Pep Total Protein Albumin Triglycerides LDL Cholesterol Direct HDL Cholesterol Urine WBC (Auto) Crossmatch 03/02/19 03/02/19 03/02/19 15:12 16:14 17:13 WBC RBC Hgb 8.0 L Hct 24.7 L MCHC RDW Plt Count Seg Neuts % (Manual) Lymphocytes % (Manual) Monocytes % (Manual) Nucleated RBC % Seg Neutrophils # Man Lymphocytes # (Manual) Monocytes # (Manual) PT INR D-Dimer POC ABG pH POC ABG pCO2 POC ABG pO2 Sodium Potassium Chloride Carbon Dioxide BUN Creatinine Glucose POC Glucose 405 H 395 H Hemoglobin A1c Lactic Acid Calcium Magnesium Total Bilirubin Direct Bilirubin AST ALT Alkaline Phosphatase Total Creatine Kinase CK-MB (CK-2) Troponin T NT-Pro-B Natriuret Pep Total Protein Albumin Triglycerides LDL Cholesterol Direct HDL Cholesterol Urine WBC (Auto) Crossmatch 03/02/19 03/02/19 03/02/19 17:13 17:16 17:30 WBC RBC Hgb Hct MCHC RDW Plt Count Seg Neuts % (Manual) Lymphocytes % (Manual) Monocytes % (Manual) Nucleated RBC % Seg Neutrophils # Man Lymphocytes # (Manual) Monocytes # (Manual) PT INR D-Dimer POC ABG pH POC ABG pCO2 POC ABG pO2 Sodium Potassium Chloride 94.8 L Carbon Dioxide 21 L BUN 34 H Creatinine 3.2 H Glucose 358 H POC Glucose 357 H Hemoglobin A1c Lactic Acid 7.90 H* Calcium 5.9 L* Magnesium Total Bilirubin Direct Bilirubin AST ALT Alkaline Phosphatase Total Creatine Kinase CK-MB (CK-2) Troponin T NT-Pro-B Natriuret Pep Total Protein Albumin Triglycerides LDL Cholesterol Direct HDL Cholesterol Urine WBC (Auto) Crossmatch 03/02/19 03/02/19 03/02/19 18:12 19:31 20:29 WBC RBC Hgb Hct MCHC RDW Plt Count Seg Neuts % (Manual) Lymphocytes % (Manual) Monocytes % (Manual) Nucleated RBC % Seg Neutrophils # Man Lymphocytes # (Manual) Monocytes # (Manual) PT INR D-Dimer POC ABG pH POC ABG pCO2 POC ABG pO2 Sodium Potassium Chloride Carbon Dioxide BUN Creatinine Glucose POC Glucose 270 H 263 H Hemoglobin A1c Lactic Acid Calcium Magnesium Total Bilirubin Direct Bilirubin AST ALT Alkaline Phosphatase Total Creatine Kinase CK-MB (CK-2) Troponin T NT-Pro-B Natriuret Pep Total Protein Albumin Triglycerides LDL Cholesterol Direct HDL Cholesterol Urine WBC (Auto) 17.0 H Crossmatch 03/02/19 03/02/19 03/02/19 20:37 21:08 21:36 WBC RBC Hgb Hct MCHC RDW Plt Count Seg Neuts % (Manual) Lymphocytes % (Manual) Monocytes % (Manual) Nucleated RBC % Seg Neutrophils # Man Lymphocytes # (Manual) Monocytes # (Manual) PT INR D-Dimer POC ABG pH POC ABG pCO2 POC ABG pO2 Sodium Potassium Chloride Carbon Dioxide BUN Creatinine Glucose POC Glucose 270 H 262 H Hemoglobin A1c Lactic Acid 8.60 H* Calcium Magnesium Total Bilirubin Direct Bilirubin AST ALT Alkaline Phosphatase Total Creatine Kinase CK-MB (CK-2) Troponin T NT-Pro-B Natriuret Pep Total Protein Albumin Triglycerides LDL Cholesterol Direct HDL Cholesterol Urine WBC (Auto) Crossmatch 03/02/19 03/02/19 03/03/19 22:07 23:09 00:02 WBC RBC Hgb Hct MCHC RDW Plt Count Seg Neuts % (Manual) Lymphocytes % (Manual) Monocytes % (Manual) Nucleated RBC % Seg Neutrophils # Man Lymphocytes # (Manual) Monocytes # (Manual) PT INR D-Dimer POC ABG pH POC ABG pCO2 POC ABG pO2 Sodium Potassium Chloride Carbon Dioxide BUN Creatinine Glucose POC Glucose 252 H 230 H 159 H Hemoglobin A1c Lactic Acid Calcium Magnesium Total Bilirubin Direct Bilirubin AST ALT Alkaline Phosphatase Total Creatine Kinase CK-MB (CK-2) Troponin T NT-Pro-B Natriuret Pep Total Protein Albumin Triglycerides LDL Cholesterol Direct HDL Cholesterol Urine WBC (Auto) Crossmatch 03/03/19 03/03/19 03/03/19 00:45 00:45 00:45 WBC RBC Hgb 6.3 L Hct 19.8 L* MCHC RDW Plt Count Seg Neuts % (Manual) Lymphocytes % (Manual) Monocytes % (Manual) Nucleated RBC % Seg Neutrophils # Man Lymphocytes # (Manual) Monocytes # (Manual) PT INR D-Dimer POC ABG pH POC ABG pCO2 POC ABG pO2 Sodium Potassium 2.9 L* D Chloride 110.4 H Carbon Dioxide 16 L BUN 27 H Creatinine 2.7 H Glucose 156 H POC Glucose Hemoglobin A1c Lactic Acid 4.90 H* Calcium 4.6 L* D Magnesium Total Bilirubin Direct Bilirubin AST ALT Alkaline Phosphatase Total Creatine Kinase CK-MB (CK-2) Troponin T NT-Pro-B Natriuret Pep Total Protein Albumin Triglycerides LDL Cholesterol Direct HDL Cholesterol Urine WBC (Auto) Crossmatch 03/03/19 03/03/19 03/03/19 01:10 02:04 03:07 WBC RBC Hgb Hct MCHC RDW Plt Count Seg Neuts % (Manual) Lymphocytes % (Manual) Monocytes % (Manual) Nucleated RBC % Seg Neutrophils # Man Lymphocytes # (Manual) Monocytes # (Manual) PT INR D-Dimer POC ABG pH POC ABG pCO2 POC ABG pO2 Sodium Potassium Chloride Carbon Dioxide BUN Creatinine Glucose POC Glucose 189 H 214 H 160 H Hemoglobin A1c Lactic Acid Calcium Magnesium Total Bilirubin Direct Bilirubin AST ALT Alkaline Phosphatase Total Creatine Kinase CK-MB (CK-2) Troponin T NT-Pro-B Natriuret Pep Total Protein Albumin Triglycerides LDL Cholesterol Direct HDL Cholesterol Urine WBC (Auto) Crossmatch 03/03/19 03/03/19 03/03/19 04:10 04:52 05:20 WBC RBC Hgb Hct MCHC RDW Plt Count Seg Neuts % (Manual) Lymphocytes % (Manual) Monocytes % (Manual) Nucleated RBC % Seg Neutrophils # Man Lymphocytes # (Manual) Monocytes # (Manual) PT INR D-Dimer POC ABG pH POC ABG pCO2 34.7 L POC ABG pO2 51 L Sodium Potassium Chloride Carbon Dioxide BUN Creatinine Glucose POC Glucose 142 H 142 H Hemoglobin A1c Lactic Acid Calcium Magnesium Total Bilirubin Direct Bilirubin AST ALT Alkaline Phosphatase Total Creatine Kinase CK-MB (CK-2) Troponin T NT-Pro-B Natriuret Pep Total Protein Albumin Triglycerides LDL Cholesterol Direct HDL Cholesterol Urine WBC (Auto) Crossmatch 03/03/19 03/03/19 03/03/19 06:06 06:50 08:01 WBC RBC Hgb Hct MCHC RDW Plt Count Seg Neuts % (Manual) Lymphocytes % (Manual) Monocytes % (Manual) Nucleated RBC % Seg Neutrophils # Man Lymphocytes # (Manual) Monocytes # (Manual) PT INR D-Dimer POC ABG pH POC ABG pCO2 POC ABG pO2 Sodium Potassium Chloride Carbon Dioxide BUN Creatinine Glucose POC Glucose 127 H 131 H 137 H Hemoglobin A1c Lactic Acid Calcium Magnesium Total Bilirubin Direct Bilirubin AST ALT Alkaline Phosphatase Total Creatine Kinase CK-MB (CK-2) Troponin T NT-Pro-B Natriuret Pep Total Protein Albumin Triglycerides LDL Cholesterol Direct HDL Cholesterol Urine WBC (Auto) Crossmatch Allied health notes reviewed: nursing
[2019-03-03 09:16] LABS: Hematocrit 29.8 % (30.3-42.9); Hemoglobin 9.9 gm/dl (10.1-14.3); Mean Corpuscular HGB Conc 33 % (30-34); Mean Corpuscular Volume 85 fl (79-97); Platelet Count 155 K/mm3 (140-440); Red Blood Count 3.52 M/mm3 (3.65-5.03); Red Cell Distribution Width 16.6 % (13.2-15.2)
--- NOTE | 2019-03-03 09:16 | Progress Note ---
Assessment and Plan - Patient Problems (1) GERALDINE (acute kidney injury) Current Visit: Yes Status: Acute Plan to address problem: Likely in the setting of ischemic acute tubular necrosis secondary to cardiac arrest and an NSTEMI. Continue current supportive care. We decreased IV fluids to normal saline at 42 mL an hour. We also give patient dose of Lasix 60 mg IV 1 to increase her diuresis, with unfortunately minimal response. Will favor to give another dose of lasix 80 mg q 12hrs today and assess for response. (2) NSTEMI (non-ST elevated myocardial infarction) Current Visit: Yes Status: Acute Plan to address problem: Further management per cardiology recommendations. Heparin drip has been discontinued at this time secondary to her level of anemia. We'll continue to monitor. Elevated cardiac enzymes noted during morning labs. (3) Encephalopathy acute Current Visit: Yes Status: Acute Plan to address problem: Currently intubated at this time. Remains unresponsive, with CT concerning for cerebllar infarct. Patient is too unstable for follow up MRI as she went into PEA after CT head yesterday. Neurology has been consulted and appreciate further recommendations. (4) Hyperkalemia Current Visit: Yes Status: Acute Plan to address problem: In the setting of hyperglycemia/poorly controlled DM and GERALDINE. She is now having hypokalemia, as she is being treated with insulin gtt, secondary to total body potassium deficient state. Repletion as per protocol. (5) Hyperosmolar non-ketotic state in patient with type 2 diabetes mellitus Current Visit: Yes Status: Acute Plan to address problem: Management per primary attending. Patient continues on insulin drip at this time. (6) Hyponatremia Current Visit: Yes Status: Acute Plan to address problem: Likely in the setting of hyperglycemia. Will monitor. (7) Sepsis Current Visit: Yes Status: Suspected Qualifiers: Sepsis type: sepsis due to unspecified organism Qualified Code(s): A41.9 - Sepsis, unspecified organism Plan to address problem: Unclear etiology, possible underlying UTI vs right gangrenous toe, await culture results. Antibiotics to be dosed per her decreased renal clearance. (8) Peripheral vascular disease Current Visit: Yes Status: Chronic Plan to address problem: s/p fasciotomy in the setting of developing acute compartment syndrome post thrombolysis. Management per vascular surgery. Status post debridement of RLE wound earlier during this admission Subjective Date of service: 03/03/19 Principal diagnosis: PVD with gangrene right toe, status post fasciotomies, NSTEMI, sepsis Interval history: CT brain indicated acute/subacute non hemorrhagic infarct in cerebellum/left dede region. Overall prognosis and neurologic status is poor. She has no gag reflex and is unresponsive off sedation. Minimal change in UO with lasix 60 mg IV dose. Remains on NS at 42 cc/hr, levophed @ 12mcg/kg/min, insulin gtt. She is receiving 1 units pf PRBC, ordered overnight. She has also received replacement with potassium and calcium. Objective - Vital Signs Vital signs: Vital Signs - 12hr 03/02/19 03/02/19 03/02/19 21:15 21:30 21:45 Temperature Pulse Rate 89 87 86 Pulse Rate [ Anterior Bilateral Throughout] Pulse Rate [ From Monitor] Respiratory 20 20 20 Rate Respiratory Rate [Anterior Bilateral Throughout] Blood Pressure 88/55 82/54 83/53 O2 Sat by Pulse 99 99 Oximetry 03/02/19 03/02/19 03/02/19 22:00 22:15 22:30 Temperature Pulse Rate 85 83 79 Pulse Rate [ Anterior Bilateral Throughout] Pulse Rate [ From Monitor] Respiratory 20 20 20 Rate Respiratory Rate [Anterior Bilateral Throughout] Blood Pressure 83/53 95/58 93/59 O2 Sat by Pulse 100 98 Oximetry 03/02/19 03/02/19 03/02/19 22:45 23:00 23:09 Temperature Pulse Rate 77 78 100 H Pulse Rate [ Anterior Bilateral Throughout] Pulse Rate [ From Monitor] Respiratory 20 20 Rate Respiratory Rate [Anterior Bilateral Throughout] Blood Pressure 88/56 88/57 88/57 O2 Sat by Pulse 99 100 Oximetry 03/02/19 03/02/19 03/02/19 23:15 23:30 23:45 Temperature Pulse Rate 75 74 76 Pulse Rate [ Anterior Bilateral Throughout] Pulse Rate [ From Monitor] Respiratory 20 20 20 Rate Respiratory Rate [Anterior Bilateral Throughout] Blood Pressure 89/56 88/55 97/59 O2 Sat by Pulse 100 Oximetry 03/03/19 03/03/19 03/03/19 00:00 00:15 00:30 Temperature 95.2 F L Pulse Rate 78 78 79 Pulse Rate [ Anterior Bilateral Throughout] Pulse Rate [ 77 From Monitor] Respiratory 20 20 20 Rate Respiratory Rate [Anterior Bilateral Throughout] Blood Pressure 97/61 98/61 100/62 O2 Sat by Pulse 100 100 100 Oximetry 03/03/19 03/03/19 03/03/19 00:45 01:00 01:15 Temperature Pulse Rate 78 76 80 Pulse Rate [ Anterior Bilateral Throughout] Pulse Rate [ From Monitor] Respiratory 20 20 20 Rate Respiratory Rate [Anterior Bilateral Throughout] Blood Pressure 93/61 82/52 98/63 O2 Sat by Pulse 100 Oximetry 03/03/19 03/03/19 03/03/19 01:30 01:45 02:00 Temperature Pulse Rate 81 82 82 Pulse Rate [ Anterior Bilateral Throughout] Pulse Rate [ From Monitor] Respiratory 20 20 20 Rate Respiratory Rate [Anterior Bilateral Throughout] Blood Pressure 100/61 100/62 101/62 O2 Sat by Pulse 100 100 Oximetry 03/03/19 03/03/19 03/03/19 02:15 02:30 02:43 Temperature Pulse Rate 81 82 Pulse Rate [ 100 H Anterior Bilateral Throughout] Pulse Rate [ From Monitor] Respiratory 19 20 Rate Respiratory 20 Rate [Anterior Bilateral Throughout] Blood Pressure 99/59 97/59 O2 Sat by Pulse 99 99 Oximetry 03/03/19 03/03/19 03/03/19 02:45 03:00 03:15 Temperature Pulse Rate 82 84 83 Pulse Rate [ Anterior Bilateral Throughout] Pulse Rate [ From Monitor] Respiratory 20 20 20 Rate Respiratory Rate [Anterior Bilateral Throughout] Blood Pressure 98/58 95/58 96/58 O2 Sat by Pulse 100 99 100 Oximetry 03/03/19 03/03/19 03/03/19 03:30 03:45 04:00 Temperature 97.6 F Pulse Rate 84 84 82 Pulse Rate [ Anterior Bilateral Throughout] Pulse Rate [ 83 From Monitor] Respiratory 20 20 20 Rate Respiratory Rate [Anterior Bilateral Throughout] Blood Pressure 94/58 91/57 89/55 O2 Sat by Pulse 99 99 100 Oximetry 03/03/19 03/03/19 03/03/19 04:15 04:30 04:45 Temperature Pulse Rate 82 82 81 Pulse Rate [ Anterior Bilateral Throughout] Pulse Rate [ From Monitor] Respiratory 20 20 20 Rate Respiratory Rate [Anterior Bilateral Throughout] Blood Pressure 88/54 87/53 88/52 O2 Sat by Pulse 99 99 99 Oximetry 03/03/19 03/03/19 03/03/19 05:00 05:15 05:30 Temperature Pulse Rate 81 81 80 Pulse Rate [ Anterior Bilateral Throughout] Pulse Rate [ From Monitor] Respiratory 19 20 20 Rate Respiratory Rate [Anterior Bilateral Throughout] Blood Pressure 84/52 88/55 91/59 O2 Sat by Pulse 100 100 Oximetry 03/03/19 03/03/19 03/03/19 05:45 05:48 06:00 Temperature 97.8 F Pulse Rate 80 83 84 Pulse Rate [ Anterior Bilateral Throughout] Pulse Rate [ From Monitor] Respiratory 20 20 20 Rate Respiratory Rate [Anterior Bilateral Throughout] Blood Pressure 86/54 86/54 101/65 O2 Sat by Pulse 100 100 Oximetry 03/03/19 03/03/19 03/03/19 06:03 06:15 06:30 Temperature 97.7 F Pulse Rate 83 84 85 Pulse Rate [ Anterior Bilateral Throughout] Pulse Rate [ From Monitor] Respiratory 20 20 20 Rate Respiratory Rate [Anterior Bilateral Throughout] Blood Pressure 101/65 100/63 101/65 O2 Sat by Pulse 100 100 100 Oximetry 03/03/19 03/03/19 03/03/19 06:33 06:45 06:58 Temperature 97.7 F Pulse Rate 83 84 83 Pulse Rate [ Anterior Bilateral Throughout] Pulse Rate [ From Monitor] Respiratory 20 21 Rate Respiratory Rate [Anterior Bilateral Throughout] Blood Pressure 100/63 96/59 96/59 O2 Sat by Pulse 100 100 100 Oximetry 03/03/19 03/03/19 03/03/19 07:00 07:03 07:15 Temperature 97.7 F Pulse Rate 82 84 87 Pulse Rate [ 82 Anterior Bilateral Throughout] Pulse Rate [ From Monitor] Respiratory 20 20 20 Rate Respiratory 20 Rate [Anterior Bilateral Throughout] Blood Pressure 100/63 100/63 107/65 O2 Sat by Pulse 100 100 100 Oximetry 03/03/19 03/03/19 03/03/19 07:16 07:30 07:45 Temperature Pulse Rate 86 85 Pulse Rate [ 87 Anterior Bilateral Throughout] Pulse Rate [ From Monitor] Respiratory 20 20 Rate Respiratory 20 Rate [Anterior Bilateral Throughout] Blood Pressure 100/65 103/65 O2 Sat by Pulse 100 100 Oximetry 03/03/19 03/03/19 03/03/19 08:00 08:15 08:30 Temperature 98.2 F Pulse Rate 86 86 87 Pulse Rate [ Anterior Bilateral Throughout] Pulse Rate [ From Monitor] Respiratory 20 20 20 Rate Respiratory Rate [Anterior Bilateral Throughout] Blood Pressure 104/65 103/67 108/68 O2 Sat by Pulse 100 100 Oximetry 03/03/19 03/03/19 08:45 09:00 Temperature Pulse Rate 87 82 Pulse Rate [ Anterior Bilateral Throughout] Pulse Rate [ From Monitor] Respiratory 20 20 Rate Respiratory Rate [Anterior Bilateral Throughout] Blood Pressure 109/64 85/52 O2 Sat by Pulse 100 99 Oximetry - General Appearance General appearance: chronically ill, intubated, frail EENT: ATNC, PERRL Respiratory: Present: Decreased Breath Sounds Cardiology: regular, S1S2 Gastrointestinal: normal Integumentary: warm and dry Neurologic: other (unresponsive off sedation) - Lab 03/03/19 00:45 03/03/19 00:45 Most recent lab results Calcium 4.6 mg/dL (8.4-10.2) L* D 03/03/19 00:45 Phosphorus 3.10 mg/dL (2.5-4.5) 02/15/19 05:32 Magnesium 2.80 mg/dL (1.7-2.3) H 02/15/19 05:32 - Imaging Chest x-ray: report reviewed, image reviewed - Allied health notes Allied health notes reviewed: nursing Medications & Allergies - Medications Allergies/Adverse Reactions: Allergies No Known Allergies Allergy (Verified 01/28/19 21:26) Home Medications: Home Medications Medication Instructions Recorded Confirmed Last Taken Type Aspirin [Low Dose Aspirin EC] 81 mg PO DAILY #30 tablet. 02/04/19 02/16/19 02/14/19 10:00 Rx Clopidogrel [Plavix] 75 mg PO QDAY #30 tablet 02/04/19 02/16/19 02/14/19 10:00 Rx Lispro Insulin [Humalog] 0 unit SUB-Q ACHS units 02/20/19 Unknown Rx Lispro Insulin [Humalog] 5 unit SUB-Q AC 30 Days units 02/20/19 Unknown Rx Multivitamin with Iron [Tab-A-Lupe 1 each PO DAILY #30 tablet 02/20/19 Unknown Rx with Iron] Valsartan [Diovan] 160 mg PO BID #60 tablet 02/20/19 Unknown Rx oxyCODONE /ACETAMINOPHEN [Percocet 1 tab PO Q6H PRN #20 tablet 02/20/19 Unknown Rx 5/325 mg] Insulin Glargine [Lantus VIAL] 22 units SUB-Q DAILY #1 vial 02/25/19 Unknown Rx Insulin Lispro [HumaLOG VIAL] 0 units SQ AC #1 vial 02/25/19 Unknown Rx Active Medications: Generic Name Dose Route Start Last Admin Trade Name Freq PRN Reason Stop Dose Admin Acetaminophen 650 mg 02/13/19 18:03 Tylenol PO Q4H PRN Pain MILD(1-3)/Fever >100.5/MARTÍNEZ Albuterol 2.5 mg 02/22/19 04:53 02/28/19 16:08 Proventil IH 2.5 mg Q6HRT PRN Administration Shortness Of Breath Albuterol/Ipratropium 1 ampul 02/28/19 16:45 03/03/19 07:03 Duoneb *Not For Prn Use* IH 1 ampul Q6HRT RAFAEL Administration Aspirin 325 mg 02/28/19 19:00 03/02/19 11:01 Aspirin PO 325 mg QDAY RAFAEL Administration Dextrose 50 ml 03/02/19 08:04 D50w (25gm) Syringe IV PRN PRN Hypoglycemia Fentanyl 50 mcg 02/28/19 21:01 Sublimaze IV Q10MIN PRN ANALGESIA Hydralazine HCl 10 mg 03/02/19 15:28 Apresoline IV Q4HR PRN BP >180/110 Hydrophilic Ointment 1 applic 02/28/19 21:29 Vaseline Lip Therapy TP Q2HR PRN Dry Lips Fentanyl Citrate 2,000 mcg in 100 mls @ 5.665 mls/hr 02/28/19 22:00 03/01/19 00:46 Fentanyl Drip Premix IV 0 mcg/kg/hr TITR RAFAEL 0 mls/hr Titration Protocol 1 MCG/KG/HR Norepinephrine 4 mg in 250 mls @ 7.5 mls/hr 03/01/19 03:00 03/03/19 09:00 Levophed Drip 4 Mg/Ns 250 Ml IV 12 mcg/min TITR RAFAEL 45 mls/hr Titration Protocol 2 MCG/MIN Dopamine HCl/Dextrose 800 mg in 250 mls @ 4.249 mls/hr 03/01/19 01:35 03/02/19 00:13 Intropin Drip 800 Mg/D5w 250 Ml IV 0 mcg/kg/min TITR RAFAEL 0 mls/hr Titration Protocol 2 MCG/KG/MIN Cefepime HCl 2 gm in 100 mls @ 200 mls/hr 03/01/19 20:00 03/02/19 15:25 Maxipime/Ns 2 Gm/100 Ml IV 200 mls/hr Q24HR RAFAEL Administration Protocol Insulin Human Regular 100 100 mls @ 1 mls/hr 03/02/19 09:00 03/03/19 09:04 units/ Sodium Chloride IV 3.5 units/hr TITR RAFAEL 3.5 mls/hr Titration Protocol 1 UNITS/HR Sodium Chloride 1,000 mls @ 42 mls/hr 03/02/19 10:00 Nacl 0.9% 1000 Ml IV DIRECT RAFAEL Ondansetron HCl 4 mg 02/13/19 18:03 Zofran IV Q8H PRN Nausea And Vomiting Pantoprazole Sodium 40 mg 03/02/19 22:00 03/02/19 21:41 Protonix IV 40 mg BID RAFAEL Administration Sodium Chloride 10 ml 02/13/19 22:00 03/02/19 21:42 Sodium Chloride Flush Syringe 10 Ml IV 10 ml BID RAFAEL Administration Sodium Chloride 10 ml 02/13/19 18:03 Sodium Chloride Flush Syringe 10 Ml IV PRN PRN LINE FLUSH
[2019-03-03 09:36] LABS: Calcium 6.8 mg/dL (8.4-10.2)
[2019-03-03] MEDS: LEVOPHED DRIP 4 MG/NS 250 ML 4 MG/250 ML BAG IV SCH ×3 (09:36→22:00)
[2019-03-03] MEDS: PROTONIX IV SCH ×2 (09:37→21:00)
[2019-03-03] MEDS: SODIUM CHLORIDE FLUSH SYRINGE 10 ML IV SCH ×2 (09:37→21:01)
[2019-03-03] MEDS: LASIX IV SCH ×2 (09:37→17:11)
[2019-03-03] MEDS: MAXIPIME/NS 2 GM/100 ML 2 GM/100 ML BAG IV SCH (09:37)
[2019-03-03] MEDS: ASPIRIN PO SCH (09:37)
[2019-03-03 09:58] LABS: Basophils % (Manual) 0 % (0.0-1.8); Eosinophils % (Manual) 0 % (0.0-4.3); Total Cells Counted 100
[2019-03-03 09:59] LABS: Anisocytosis 1+; Large Platelets Few; Platelet Estimate Consistent w Auto
--- NOTE | 2019-03-03 10:08 | Progress Note ---
Assessment and Plan Limited echo reviewed - EF 25-30%, apical septal and apical lateral wall segments are akinetic. Cont supportive measures, vasopressor support. Overall poor prognosis. The patient has been seen in conjunction with Dr. Bhakta who agrees with the assessment and plan of care. - Patient Problems (1) Cardiopulmonary arrest with successful resuscitation Current Visit: Yes Status: Acute (2) Acute heart failure with preserved ejection fraction Current Visit: Yes Status: Acute (3) NSTEMI (non-ST elevated myocardial infarction) Current Visit: Yes Status: Acute (4) Acute respiratory failure Current Visit: Yes Status: Acute (5) GERALDINE (acute kidney injury) Current Visit: Yes Status: Acute (6) Hyperkalemia Current Visit: Yes Status: Acute (7) Sepsis Current Visit: Yes Status: Suspected Qualifiers: Sepsis type: sepsis due to unspecified organism Qualified Code(s): A41.9 - Sepsis, unspecified organism (8) Severe anemia Current Visit: Yes Status: Acute (9) Peripheral vascular disease Current Visit: Yes Status: Chronic (10) 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 Objective Last Vital Signs Temp 98.2 F 03/03/19 08:00 Pulse 82 03/03/19 09:00 Resp 20 03/03/19 09:00 BP 85/52 03/03/19 09:00 Pulse Ox 99 03/03/19 09:00 - Physical Examination General: Other (intubated, nonresponsive) Cardiac: Positive: Reg Rate and Rhythm, S1/S2 Lungs: Positive: Decreased Breath Sounds, Ventilated Respirations Neuro: Positive: Other (intubated, nonresponsive) Skin: Positive: Other (RLE gangrene). Negative: Rash Extremities: Present: +2 Edema (RLE > LLE) - Labs and Meds Cardiac Enzymes 03/03/19 Range/Units 08:30 AST 4012 H (5-40) units/L CBC 03/02/19 03/03/19 03/03/19 Range/Units 17:13 00:45 08:30 WBC 14.0 H (4.5-11.0) K/mm3 RBC 3.52 L (3.65-5.03) M/mm3 Hgb 8.0 L 6.3 L 9.9 L D (10.1-14.3) gm/dl Hct 24.7 L 19.8 L* 29.8 L D (30.3-42.9) % Plt Count 155 (140-440) K/mm3 Comprehensive Metabolic Panel 03/02/19 03/03/19 03/03/19 Range/Units 17:13 00:45 08:30 Sodium 137 142 142 (137-145) mmol/L Potassium 4.3 2.9 L* D 5.3 H D (3.6-5.0) mmol/L Chloride 94.8 L 110.4 H 101.0 (98-107) mmol/L Carbon Dioxide 21 L 16 L 24 D (22-30) mmol/L BUN 34 H 27 H 38 H (7-17) mg/dL Creatinine 3.2 H 2.7 H 4.0 H (0.7-1.2) mg/dL Glucose 358 H 156 H 135 H (65-100) mg/dL Calcium 5.9 L* 4.6 L* D 6.8 L D (8.4-10.2) mg/dL AST 4012 H (5-40) units/L ALT 1793 H (7-56) units/L Alkaline Phosphatase 259 H (35-129) units/L Total Protein 4.6 L (6.3-8.2) g/dL Albumin 2.0 L (3.9-5) g/dL - Imaging and Cardiology EKG: report reviewed, image reviewed Echo: report reviewed (02/14/2019 showed EF 55-60%, mild LVH, mild with peak gradient 24 and mean 11, mild AR. ) - Telemetry EKG Rhythm: Sinus Rhythm - EKG Sinus rhythms and dysrhythmias: sinus rhythm - Allied health notes Allied health notes reviewed: nursing
[2019-03-03] MEDS ORDERED: ARTIFICIAL TEARS OPHTH OINT OU PRN (10:39)
[2019-03-03] MEDS ORDERED: LANTUS SUB-Q SCH (11:00)
[2019-03-03] MEDS ORDERED: MAGNESIUM SULFATE 2GM/50ML 2 GM/50 ML BAG IV ONE (11:00)
[2019-03-03] MEDS: HumaLOG SUB-Q SCH ×4 (11:38→23:58)
--- NOTE | 2019-03-03 12:32 | Gastroenterology Progress Note ---
Assessment and Plan This is a 58 yo female with pmh of DM, HTN, and peripheral vascular disease recently admitted due to right toe gangrene s/p R lower extremity thrombolysis and compartment fasciotomy on 01/29/2019 and admitted with bacteremia due to UTI. Became acutely short of breath and transferred to ICU and subsequently intubated and had asystole/CODE blue called on 03/01/2019. ROSC obtained. Found to have anemia with Hgb down to 5 post code from 6.5 on 02/28/2019. GI consulted for anemia. # Anemia # sepsis -H/H 9.9/29.8-s/p blood transfusion -continue to monitor H/H and transfuse as needed -no active signs of bleeding - CT abdomen/pelvis without signs of bowel obstruction -etiology unclear - no plans for endoscopy at this time given no overt signs of active GI bleeding. - continue PPI and supportive care - prognosis is poor. new CVA, shock requiring pressors, sepsis, respiratory failure. Subjective Date of service: 03/03/19 Principal diagnosis: anemia Interval history: Patient remains critically ill in ICU on vent. Non responsive on pressor supp ort. No active signs of GI bleeding overnight or this am per nursing. No BM and NG tube with no drainage. Objective - Constitutional Vitals: Temp Pulse Resp BP Pulse Ox 98.6 F 89 20 112/68 100 03/03/19 12:00 03/03/19 12:00 03/03/19 12:00 03/03/19 12:00 03/03/19 12:00 General appearance: other (on vent and pressor support, nonrsponsive) - Respiratory Respiratory: bilateral: diminished - Cardiovascular Rhythm: regular - Gastrointestinal General gastrointestinal: Present: soft, non-distended, normal bowel sounds, other (+obese) - Labs CBC & Chem 7: 03/03/19 08:30 03/03/19 08:30 Labs: Laboratory Results - last 24 hr 03/01/19 03/02/19 03/02/19 07:30 11:19 13:00 WBC RBC Hgb Hct MCV MCH MCHC RDW Plt Count Add Manual Diff Total Counted Seg Neuts % (Manual) Band Neutrophils % Lymphocytes % (Manual) Reactive Lymphs % (Man) Monocytes % (Manual) Eosinophils % (Manual) Basophils % (Manual) Metamyelocytes % Myelocytes % Promyelocytes % Blast Cells % Nucleated RBC % Seg Neutrophils # Man Band Neutrophils # Lymphocytes # (Manual) Abs React Lymphs (Man) Monocytes # (Manual) Eosinophils # (Manual) Basophils # (Manual) Metamyelocytes # Myelocytes # Promyelocytes # Blast Cells # WBC Morphology Hypersegmented Neuts Hyposegmented Neuts Hypogranular Neuts Smudge Cells Toxic Granulation Toxic Vacuolation Dohle Bodies Pelger-Huet Anomaly Cisco Rods Platelet Estimate Clumped Platelets Plt Clumps, EDTA Large Platelets Giant Platelets Platelet Satelliting Plt Morphology Comment RBC Morphology Dimorphic RBCs Polychromasia Hypochromasia Poikilocytosis Anisocytosis Microcytosis Macrocytosis Spherocytes Pappenheimer Bodies Sickle Cells Target Cells Tear Drop Cells Ovalocytes Helmet Cells Starkey-[place] Bodies [place] Rings Vipul Cells Bite Cells Crenated Cell Elliptocytes Acanthocytes (Spur) Rouleaux Hemoglobin C Crystals Schistocytes Malaria parasites Augusto Bodies Hem Pathologist Commnt POC ABG pH POC ABG pCO2 POC ABG pO2 POC ABG HCO3 POC ABG Total CO2 POC ABG O2 Sat POC ABG Base Excess FiO2 Sodium Potassium Chloride Carbon Dioxide Anion Gap BUN Creatinine Estimated GFR BUN/Creatinine Ratio Glucose POC Glucose 413 H 391 H Lactic Acid Calcium Phosphorus Magnesium Total Bilirubin AST ALT Alkaline Phosphatase Total Protein Albumin Albumin/Globulin Ratio Urine Color Urine Turbidity Urine pH Ur Specific [place] Urine Protein Urine Glucose (UA) Urine Ketones Urine Blood Urine Nitrite Urine Bilirubin Urine Urobilinogen Ur Leukocyte Esterase Urine WBC (Auto) Urine RBC (Auto) Urine Bacteria (Auto) Urine Yeast (Budding) Blood Type B POSITIVE Antibody Screen Negative Crossmatch See Detail 03/02/19 03/02/19 03/02/19 14:00 15:12 16:14 WBC RBC Hgb Hct MCV MCH MCHC RDW Plt Count Add Manual Diff Total Counted Seg Neuts % (Manual) Band Neutrophils % Lymphocytes % (Manual) Reactive Lymphs % (Man) Monocytes % (Manual) Eosinophils % (Manual) Basophils % (Manual) Metamyelocytes % Myelocytes % Promyelocytes % Blast Cells % Nucleated RBC % Seg Neutrophils # Man Band Neutrophils # Lymphocytes # (Manual) Abs React Lymphs (Man) Monocytes # (Manual) Eosinophils # (Manual) Basophils # (Manual) Metamyelocytes # Myelocytes # Promyelocytes # Blast Cells # WBC Morphology Hypersegmented Neuts Hyposegmented Neuts Hypogranular Neuts Smudge Cells Toxic Granulation Toxic Vacuolation Dohle Bodies Pelger-Huet Anomaly Cisco Rods Platelet Estimate Clumped Platelets Plt Clumps, EDTA Large Platelets Giant Platelets Platelet Satelliting Plt Morphology Comment RBC Morphology Dimorphic RBCs Polychromasia Hypochromasia Poikilocytosis Anisocytosis Microcytosis Macrocytosis Spherocytes Pappenheimer Bodies Sickle Cells Target Cells Tear Drop Cells Ovalocytes Helmet Cells Starkey-[place] Bodies [place] Rings [place] Cells Bite Cells Crenated Cell Elliptocytes Acanthocytes (Spur) Rouleaux Hemoglobin C Crystals Schistocytes Malaria parasites Augusto Bodies Hem Pathologist Commnt POC ABG pH POC ABG pCO2 POC ABG pO2 POC ABG HCO3 POC ABG Total CO2 POC ABG O2 Sat POC ABG Base Excess FiO2 Sodium Potassium Chloride Carbon Dioxide Anion Gap BUN Creatinine Estimated GFR BUN/Creatinine Ratio Glucose POC Glucose 415 H 405 H 395 H Lactic Acid Calcium Phosphorus Magnesium Total Bilirubin AST ALT Alkaline Phosphatase Total Protein Albumin Albumin/Globulin Ratio Urine Color Urine Turbidity Urine pH Ur Specific [place] Urine Protein Urine Glucose (UA) Urine Ketones Urine Blood Urine Nitrite Urine Bilirubin Urine Urobilinogen Ur Leukocyte Esterase Urine WBC (Auto) Urine RBC (Auto) Urine Bacteria (Auto) Urine Yeast (Budding) Blood Type Antibody Screen Crossmatch 03/02/19 03/02/19 03/02/19 17:13 17:13 17:16 WBC RBC Hgb 8.0 L Hct 24.7 L MCV MCH MCHC RDW Plt Count Add Manual Diff Total Counted Seg Neuts % (Manual) Band Neutrophils % Lymphocytes % (Manual) Reactive Lymphs % (Man) Monocytes % (Manual) Eosinophils % (Manual) Basophils % (Manual) Metamyelocytes % Myelocytes % Promyelocytes % Blast Cells % Nucleated RBC % Seg Neutrophils # Man Band Neutrophils # Lymphocytes # (Manual) Abs React Lymphs (Man) Monocytes # (Manual) Eosinophils # (Manual) Basophils # (Manual) Metamyelocytes # Myelocytes # Promyelocytes # Blast Cells # WBC Morphology Hypersegmented Neuts Hyposegmented Neuts Hypogranular Neuts Smudge Cells Toxic Granulation Toxic Vacuolation Dohle Bodies Pelger-Huet Anomaly Cisco Rods Platelet Estimate Clumped Platelets Plt Clumps, EDTA Large Platelets Giant Platelets Platelet Satelliting Plt Morphology Comment RBC Morphology Dimorphic RBCs Polychromasia Hypochromasia Poikilocytosis Anisocytosis Microcytosis Macrocytosis Spherocytes Pappenheimer Bodies Sickle Cells Target Cells Tear Drop Cells Ovalocytes Helmet Cells Starkey-[place] Bodies [place] Rings Vipul Cells Bite Cells Crenated Cell Elliptocytes Acanthocytes (Spur) Rouleaux Hemoglobin C Crystals Schistocytes Malaria parasites Augusto Bodies Hem Pathologist Commnt POC ABG pH POC ABG pCO2 POC ABG pO2 POC ABG HCO3 POC ABG Total CO2 POC ABG O2 Sat POC ABG Base Excess FiO2 Sodium 137 Potassium 4.3 Chloride 94.8 L Carbon Dioxide 21 L Anion Gap 26 BUN 34 H Creatinine 3.2 H Estimated GFR 18 BUN/Creatinine Ratio 11 Glucose 358 H POC Glucose 357 H Lactic Acid Calcium 5.9 L* Phosphorus Magnesium Total Bilirubin AST ALT Alkaline Phosphatase Total Protein Albumin Albumin/Globulin Ratio Urine Color Urine Turbidity Urine pH Ur Specific [place] Urine Protein Urine Glucose (UA) Urine Ketones Urine Blood Urine Nitrite Urine Bilirubin Urine Urobilinogen Ur Leukocyte Esterase Urine WBC (Auto) Urine RBC (Auto) Urine Bacteria (Auto) Urine Yeast (Budding) Blood Type Antibody Screen Crossmatch 03/02/19 03/02/19 03/02/19 17:30 18:12 19:31 WBC RBC Hgb Hct MCV MCH MCHC RDW Plt Count Add Manual Diff Total Counted Seg Neuts % (Manual) Band Neutrophils % Lymphocytes % (Manual) Reactive Lymphs % (Man) Monocytes % (Manual) Eosinophils % (Manual) Basophils % (Manual) Metamyelocytes % Myelocytes % Promyelocytes % Blast Cells % Nucleated RBC % Seg Neutrophils # Man Band Neutrophils # Lymphocytes # (Manual) Abs React Lymphs (Man) Monocytes # (Manual) Eosinophils # (Manual) Basophils # (Manual) Metamyelocytes # Myelocytes # Promyelocytes # Blast Cells # WBC Morphology Hypersegmented Neuts Hyposegmented Neuts Hypogranular Neuts Smudge Cells Toxic Granulation Toxic Vacuolation Dohle Bodies Pelger-Huet Anomaly Cisco Rods Platelet Estimate Clumped Platelets Plt Clumps, EDTA Large Platelets Giant Platelets Platelet Satelliting Plt Morphology Comment RBC Morphology Dimorphic RBCs Polychromasia Hypochromasia Poikilocytosis Anisocytosis Microcytosis Macrocytosis Spherocytes Pappenheimer Bodies Sickle Cells Target Cells Tear Drop Cells Ovalocytes Helmet Cells Starkey-[place] Bodies [place] Rings Vipul Cells Bite Cells Crenated Cell Elliptocytes Acanthocytes (Spur) Rouleaux Hemoglobin C Crystals Schistocytes Malaria parasites Augusto Bodies Hem Pathologist Commnt POC ABG pH POC ABG pCO2 POC ABG pO2 POC ABG HCO3 POC ABG Total CO2 POC ABG O2 Sat POC ABG Base Excess FiO2 Sodium Potassium Chloride Carbon Dioxide Anion Gap BUN Creatinine Estimated GFR BUN/Creatinine Ratio Glucose POC Glucose 270 H 263 H Lactic Acid 7.90 H* Calcium Phosphorus Magnesium Total Bilirubin AST ALT Alkaline Phosphatase Total Protein Albumin Albumin/Globulin Ratio Urine Color Urine Turbidity Urine pH Ur Specific [place] Urine Protein Urine Glucose (UA) Urine Ketones Urine Blood Urine Nitrite Urine Bilirubin Urine Urobilinogen Ur Leukocyte Esterase Urine WBC (Auto) Urine RBC (Auto) Urine Bacteria (Auto) Urine Yeast (Budding) Blood Type Antibody Screen Crossmatch 03/02/19 03/02/19 03/02/19 20:29 20:37 21:08 WBC RBC Hgb Hct MCV MCH MCHC RDW Plt Count Add Manual Diff Total Counted Seg Neuts % (Manual) Band Neutrophils % Lymphocytes % (Manual) Reactive Lymphs % (Man) Monocytes % (Manual) Eosinophils % (Manual) Basophils % (Manual) Metamyelocytes % Myelocytes % Promyelocytes % Blast Cells % Nucleated RBC % Seg Neutrophils # Man Band Neutrophils # Lymphocytes # (Manual) Abs React Lymphs (Man) Monocytes # (Manual) Eosinophils # (Manual) Basophils # (Manual) Metamyelocytes # Myelocytes # Promyelocytes # Blast Cells # WBC Morphology Hypersegmented Neuts Hyposegmented Neuts Hypogranular Neuts Smudge Cells Toxic Granulation Toxic Vacuolation Dohle Bodies Pelger-Huet Anomaly Cisco Rods Platelet Estimate Clumped Platelets Plt Clumps, EDTA Large Platelets Giant Platelets Platelet Satelliting Plt Morphology Comment RBC Morphology Dimorphic RBCs Polychromasia Hypochromasia Poikilocytosis Anisocytosis Microcytosis Macrocytosis Spherocytes Pappenheimer Bodies Sickle Cells Target Cells Tear Drop Cells Ovalocytes Helmet Cells Starkey-[place] Bodies [place] Rings [place]ipul Cells Bite Cells Crenated Cell Elliptocytes Acanthocytes (Spur) Rouleaux Hemoglobin C Crystals Schistocytes Malaria parasites Augusto Bodies Hem Pathologist Commnt POC ABG pH POC ABG pCO2 POC ABG pO2 POC ABG HCO3 POC ABG Total CO2 POC ABG O2 Sat POC ABG Base Excess FiO2 Sodium Potassium Chloride Carbon Dioxide Anion Gap BUN Creatinine Estimated GFR BUN/Creatinine Ratio Glucose POC Glucose 270 H Lactic Acid 8.60 H* Calcium Phosphorus Magnesium Total Bilirubin AST ALT Alkaline Phosphatase Total Protein Albumin Albumin/Globulin Ratio Urine Color Steffi Urine Turbidity Slightly-cloudy Urine pH 6.0 Ur Specific [place] 1.011 Urine Protein 100 mg/dl Urine Glucose (UA) 50 Urine Ketones Neg Urine Blood Lg Urine Nitrite Neg Urine Bilirubin Neg Urine Urobilinogen < 2.0 Ur Leukocyte Esterase Mod Urine WBC (Auto) 17.0 H Urine RBC (Auto) 29.0 Urine Bacteria (Auto) 2+ Urine Yeast (Budding) 3+ Blood Type Antibody Screen Crossmatch 03/02/19 03/02/19 03/02/19 21:36 22:07 23:09 WBC RBC Hgb Hct MCV MCH MCHC RDW Plt Count Add Manual Diff Total Counted Seg Neuts % (Manual) Band Neutrophils % Lymphocytes % (Manual) Reactive Lymphs % (Man) Monocytes % (Manual) Eosinophils % (Manual) Basophils % (Manual) Metamyelocytes % Myelocytes % Promyelocytes % Blast Cells % Nucleated RBC % Seg Neutrophils # Man Band Neutrophils # Lymphocytes # (Manual) Abs React Lymphs (Man) Monocytes # (Manual) Eosinophils # (Manual) Basophils # (Manual) Metamyelocytes # Myelocytes # Promyelocytes # Blast Cells # WBC Morphology Hypersegmented Neuts Hyposegmented Neuts Hypogranular Neuts Smudge Cells Toxic Granulation Toxic Vacuolation Dohle Bodies Pelger-Huet Anomaly Cisco Rods Platelet Estimate Clumped Platelets Plt Clumps, EDTA Large Platelets Giant Platelets Platelet Satelliting Plt Morphology Comment RBC Morphology Dimorphic RBCs Polychromasia Hypochromasia Poikilocytosis Anisocytosis Microcytosis Macrocytosis Spherocytes Pappenheimer Bodies Sickle Cells Target Cells Tear Drop Cells Ovalocytes Helmet Cells Star[place] Bodies [place] Rings [place] Cells Bite Cells Crenated Cell Elliptocytes Acanthocytes (Spur) Rouleaux Hemoglobin C Crystals Schistocytes Malaria parasites Augusto Bodies Hem Pathologist Commnt POC ABG pH POC ABG pCO2 POC ABG pO2 POC ABG HCO3 POC ABG Total CO2 POC ABG O2 Sat POC ABG Base Excess FiO2 Sodium Potassium Chloride Carbon Dioxide Anion Gap BUN Creatinine Estimated GFR BUN/Creatinine Ratio Glucose POC Glucose 262 H 252 H 230 H Lactic Acid Calcium Phosphorus Magnesium Total Bilirubin AST ALT Alkaline Phosphatase Total Protein Albumin Albumin/Globulin Ratio Urine Color Urine Turbidity Urine pH Ur Specific [place] Urine Protein Urine Glucose (UA) Urine Ketones Urine Blood Urine Nitrite Urine Bilirubin Urine Urobilinogen Ur Leukocyte Esterase Urine WBC (Auto) Urine RBC (Auto) Urine Bacteria (Auto) Urine Yeast (Budding) Blood Type Antibody Screen Crossmatch 03/03/19 03/03/19 03/03/19 00:02 00:45 00:45 WBC RBC Hgb 6.3 L Hct 19.8 L* MCV MCH MCHC RDW Plt Count Add Manual Diff Total Counted Seg Neuts % (Manual) Band Neutrophils % Lymphocytes % (Manual) Reactive Lymphs % (Man) Monocytes % (Manual) Eosinophils % (Manual) Basophils % (Manual) Metamyelocytes % Myelocytes % Promyelocytes % Blast Cells % Nucleated RBC % Seg Neutrophils # Man Band Neutrophils # Lymphocytes # (Manual) Abs React Lymphs (Man) Monocytes # (Manual) Eosinophils # (Manual) Basophils # (Manual) Metamyelocytes # Myelocytes # Promyelocytes # Blast Cells # WBC Morphology Hypersegmented Neuts Hyposegmented Neuts Hypogranular Neuts Smudge Cells Toxic Granulation Toxic Vacuolation Dohle Bodies Pelger-Huet Anomaly Cisco Rods Platelet Estimate Clumped Platelets Plt Clumps, EDTA Large Platelets Giant Platelets Platelet Satelliting Plt Morphology Comment RBC Morphology Dimorphic RBCs Polychromasia Hypochromasia Poikilocytosis Anisocytosis Microcytosis Macrocytosis Spherocytes Pappenheimer Bodies Sickle Cells Target Cells Tear Drop Cells Ovalocytes Helmet Cells Starkey-[place] Bodies [place] Rings [place] Cells Bite Cells Crenated Cell Elliptocytes Acanthocytes (Spur) Rouleaux Hemoglobin C Crystals Schistocytes Malaria parasites Augusto Bodies Hem Pathologist Commnt POC ABG pH POC ABG pCO2 POC ABG pO2 POC ABG HCO3 POC ABG Total CO2 POC ABG O2 Sat POC ABG Base Excess FiO2 Sodium Potassium Chloride Carbon Dioxide Anion Gap BUN Creatinine Estimated GFR BUN/Creatinine Ratio Glucose POC Glucose 159 H Lactic Acid 4.90 H* Calcium Phosphorus Magnesium Total Bilirubin AST ALT Alkaline Phosphatase Total Protein Albumin Albumin/Globulin Ratio Urine Color Urine Turbidity Urine pH Ur Specific [place] Urine Protein Urine Glucose (UA) Urine Ketones Urine Blood Urine Nitrite Urine Bilirubin Urine Urobilinogen Ur Leukocyte Esterase Urine WBC (Auto) Urine RBC (Auto) Urine Bacteria (Auto) Urine Yeast (Budding) Blood Type Antibody Screen Crossmatch 03/03/19 03/03/19 03/03/19 00:45 01:10 02:04 WBC RBC Hgb Hct MCV MCH MCHC RDW Plt Count Add Manual Diff Total Counted Seg Neuts % (Manual) Band Neutrophils % Lymphocytes % (Manual) Reactive Lymphs % (Man) Monocytes % (Manual) Eosinophils % (Manual) Basophils % (Manual) Metamyelocytes % Myelocytes % Promyelocytes % Blast Cells % Nucleated RBC % Seg Neutrophils # Man Band Neutrophils # Lymphocytes # (Manual) Abs React Lymphs (Man) Monocytes # (Manual) Eosinophils # (Manual) Basophils # (Manual) Metamyelocytes # Myelocytes # Promyelocytes # Blast Cells # WBC Morphology Hypersegmented Neuts Hyposegmented Neuts Hypogranular Neuts Smudge Cells Toxic Granulation Toxic Vacuolation Dohle Bodies Pelger-Huet Anomaly Cisco Rods Platelet Estimate Clumped Platelets Plt Clumps, EDTA Large Platelets Giant Platelets Platelet Satelliting Plt Morphology Comment RBC Morphology Dimorphic RBCs Polychromasia Hypochromasia Poikilocytosis Anisocytosis Microcytosis Macrocytosis Spherocytes Pappenheimer Bodies Sickle Cells Target Cells Tear Drop Cells Ovalocytes Helmet Cells Star[place] Bodies [place] Rings [place] Cells Bite Cells Crenated Cell Elliptocytes Acanthocytes (Spur) Rouleaux Hemoglobin C Crystals Schistocytes Malaria parasites Augusto Bodies Hem Pathologist Commnt POC ABG pH POC ABG pCO2 POC ABG pO2 POC ABG HCO3 POC ABG Total CO2 POC ABG O2 Sat POC ABG Base Excess FiO2 Sodium 142 Potassium 2.9 L* D Chloride 110.4 H Carbon Dioxide 16 L Anion Gap 19 BUN 27 H Creatinine 2.7 H Estimated GFR 22 BUN/Creatinine Ratio 10 Glucose 156 H POC Glucose 189 H 214 H Lactic Acid Calcium 4.6 L* D Phosphorus Magnesium Total Bilirubin AST ALT Alkaline Phosphatase Total Protein Albumin Albumin/Globulin Ratio Urine Color Urine Turbidity Urine pH Ur Specific [place] Urine Protein Urine Glucose (UA) Urine Ketones Urine Blood Urine Nitrite Urine Bilirubin Urine Urobilinogen Ur Leukocyte Esterase Urine WBC (Auto) Urine RBC (Auto) Urine Bacteria (Auto) Urine Yeast (Budding) Blood Type Antibody Screen Crossmatch 03/03/19 03/03/19 03/03/19 03:07 04:10 04:52 WBC RBC Hgb Hct MCV MCH MCHC RDW Plt Count Add Manual Diff Total Counted Seg Neuts % (Manual) Band Neutrophils % Lymphocytes % (Manual) Reactive Lymphs % (Man) Monocytes % (Manual) Eosinophils % (Manual) Basophils % (Manual) Metamyelocytes % Myelocytes % Promyelocytes % Blast Cells % Nucleated RBC % Seg Neutrophils # Man Band Neutrophils # Lymphocytes # (Manual) Abs React Lymphs (Man) Monocytes # (Manual) Eosinophils # (Manual) Basophils # (Manual) Metamyelocytes # Myelocytes # Promyelocytes # Blast Cells # WBC Morphology Hypersegmented Neuts Hyposegmented Neuts Hypogranular Neuts Smudge Cells Toxic Granulation Toxic Vacuolation Dohle Bodies Pelger-Huet Anomaly Cisco Rods Platelet Estimate Clumped Platelets Plt Clumps, EDTA Large Platelets Giant Platelets Platelet Satelliting Plt Morphology Comment RBC Morphology Dimorphic RBCs Polychromasia Hypochromasia Poikilocytosis Anisocytosis Microcytosis Macrocytosis Spherocytes Pappenheimer Bodies Sickle Cells Target Cells Tear Drop Cells Ovalocytes Helmet Cells Stakrey-[place] Bodies [place] Rings [place] Cells Bite Cells Crenated Cell Elliptocytes Acanthocytes (Spur) Rouleaux Hemoglobin C Crystals Schistocytes Malaria parasites Augusto Bodies Hem Pathologist Commnt POC ABG pH 7.437 POC ABG pCO2 34.7 L POC ABG pO2 51 L POC ABG HCO3 23.4 POC ABG Total CO2 24 POC ABG O2 Sat 87 POC ABG Base Excess -1 FiO2 50 Sodium Potassium Chloride Carbon Dioxide Anion Gap BUN Creatinine Estimated GFR BUN/Creatinine Ratio Glucose POC Glucose 160 H 142 H Lactic Acid Calcium Phosphorus Magnesium Total Bilirubin AST ALT Alkaline Phosphatase Total Protein Albumin Albumin/Globulin Ratio Urine Color Urine Turbidity Urine pH Ur Specific [place] Urine Protein Urine Glucose (UA) Urine Ketones Urine Blood Urine Nitrite Urine Bilirubin Urine Urobilinogen Ur Leukocyte Esterase Urine WBC (Auto) Urine RBC (Auto) Urine Bacteria (Auto) Urine Yeast (Budding) Blood Type Antibody Screen Crossmatch 03/03/19 03/03/19 03/03/19 05:20 06:06 06:50 WBC RBC Hgb Hct MCV MCH MCHC RDW Plt Count Add Manual Diff Total Counted Seg Neuts % (Manual) Band Neutrophils % Lymphocytes % (Manual) Reactive Lymphs % (Man) Monocytes % (Manual) Eosinophils % (Manual) Basophils % (Manual) Metamyelocytes % Myelocytes % Promyelocytes % Blast Cells % Nucleated RBC % Seg Neutrophils # Man Band Neutrophils # Lymphocytes # (Manual) Abs React Lymphs (Man) Monocytes # (Manual) Eosinophils # (Manual) Basophils # (Manual) Metamyelocytes # Myelocytes # Promyelocytes # Blast Cells # WBC Morphology Hypersegmented Neuts Hyposegmented Neuts Hypogranular Neuts Smudge Cells Toxic Granulation Toxic Vacuolation Dohle Bodies Pelger-Huet Anomaly Cisco Rods Platelet Estimate Clumped Platelets Plt Clumps, EDTA Large Platelets Giant Platelets Platelet Satelliting Plt Morphology Comment RBC Morphology Dimorphic RBCs Polychromasia Hypochromasia Poikilocytosis Anisocytosis Microcytosis Macrocytosis Spherocytes Pappenheimer Bodies Sickle Cells Target Cells Tear Drop Cells Ovalocytes Helmet Cells Star[place] Bodies [place] Rings [place] Cells Bite Cells Crenated Cell Elliptocytes Acanthocytes (Spur) Rouleaux Hemoglobin C Crystals Schistocytes Malaria parasites Augusto Bodies Hem Pathologist Commnt POC ABG pH POC ABG pCO2 POC ABG pO2 POC ABG HCO3 POC ABG Total CO2 POC ABG O2 Sat POC ABG Base Excess FiO2 Sodium Potassium Chloride Carbon Dioxide Anion Gap BUN Creatinine Estimated GFR BUN/Creatinine Ratio Glucose POC Glucose 142 H 127 H 131 H Lactic Acid Calcium Phosphorus Magnesium Total Bilirubin AST ALT Alkaline Phosphatase Total Protein Albumin Albumin/Globulin Ratio Urine Color Urine Turbidity Urine pH Ur Specific [place] Urine Protein Urine Glucose (UA) Urine Ketones Urine Blood Urine Nitrite Urine Bilirubin Urine Urobilinogen Ur Leukocyte Esterase Urine WBC (Auto) Urine RBC (Auto) Urine Bacteria (Auto) Urine Yeast (Budding) Blood Type Antibody Screen Crossmatch 03/03/19 03/03/19 03/03/19 08:01 08:30 08:30 WBC 14.0 H RBC 3.52 L Hgb 9.9 L D Hct 29.8 L D MCV 85 MCH 28 MCHC 33 RDW 16.6 H Plt Count 155 Add Manual Diff Complete Total Counted 100 Seg Neuts % (Manual) 92.0 H Band Neutrophils % 0 Lymphocytes % (Manual) 5.0 L Reactive Lymphs % (Man) 0 Monocytes % (Manual) 1.0 Eosinophils % (Manual) 0 Basophils % (Manual) 0 Metamyelocytes % 1.0 Myelocytes % 1.0 Promyelocytes % 0 Blast Cells % 0 Nucleated RBC % 13.0 H Seg Neutrophils # Man 0.0 L Band Neutrophils # 0.0 Lymphocytes # (Manual) 0.0 L Abs React Lymphs (Man) 0.0 Monocytes # (Manual) 0.0 Eosinophils # (Manual) 0.0 Basophils # (Manual) 0.0 Metamyelocytes # 0.0 Myelocytes # 0.0 Promyelocytes # 0.0 Blast Cells # 0.0 WBC Morphology Not Reportable Hypersegmented Neuts Not Reportable Hyposegmented Neuts Not Reportable Hypogranular Neuts Not Reportable Smudge Cells Not Reportable Toxic Granulation Not Reportable Toxic Vacuolation Not Reportable Dohle Bodies Not Reportable Pelger-Huet Anomaly Not Reportable Cisco Rods Not Reportable Platelet Estimate Consistent w auto Clumped Platelets Not Reportable Plt Clumps, EDTA Not Reportable Large Platelets Few Giant Platelets Not Reportable Platelet Satelliting Not Reportable Plt Morphology Comment Not Reportable RBC Morphology Not Reportable Dimorphic RBCs Not Reportable Polychromasia Not Reportable Hypochromasia Not Reportable Poikilocytosis Not Reportable Anisocytosis 1+ Microcytosis Not Reportable Macrocytosis Not Reportable Spherocytes Not Reportable Pappenheimer Bodies Not Reportable Sickle Cells Not Reportable Target Cells Not Reportable Tear Drop Cells Not Reportable Ovalocytes Not Reportable Helmet Cells Not Reportable Star[place] Bodies Not Reportable [place] Rings Not Reportable [place] Cells Not Reportable Bite Cells Not Reportable Crenated Cell Not Reportable Elliptocytes Not Reportable Acanthocytes (Spur) Not Reportable Rouleaux Not Reportable Hemoglobin C Crystals Not Reportable Schistocytes Not Reportable Malaria parasites Not Reportable Augusto Bodies Not Reportable Hem Pathologist Commnt No POC ABG pH POC ABG pCO2 POC ABG pO2 POC ABG HCO3 POC ABG Total CO2 POC ABG O2 Sat POC ABG Base Excess FiO2 Sodium 142 Potassium 5.3 H D Chloride 101.0 Carbon Dioxide 24 D Anion Gap 22 BUN 38 H Creatinine 4.0 H Estimated GFR 14 BUN/Creatinine Ratio 10 Glucose 135 H POC Glucose 137 H Lactic Acid Calcium 6.8 L D Phosphorus 4.50 Magnesium 1.60 L Total Bilirubin 1.30 H AST 4012 H ALT 1793 H Alkaline Phosphatase 259 H Total Protein 4.6 L Albumin 2.0 L Albumin/Globulin Ratio 0.8 Urine Color Urine Turbidity Urine pH Ur Specific [place] Urine Protein Urine Glucose (UA) Urine Ketones Urine Blood Urine Nitrite Urine Bilirubin Urine Urobilinogen Ur Leukocyte Esterase Urine WBC (Auto) Urine RBC (Auto) Urine Bacteria (Auto) Urine Yeast (Budding) Blood Type Antibody Screen Crossmatch 03/03/19 03/03/19 03/03/19 08:30 09:03 10:17 WBC RBC Hgb Hct MCV MCH MCHC RDW Plt Count Add Manual Diff Total Counted Seg Neuts % (Manual) Band Neutrophils % Lymphocytes % (Manual) Reactive Lymphs % (Man) Monocytes % (Manual) Eosinophils % (Manual) Basophils % (Manual) Metamyelocytes % Myelocytes % Promyelocytes % Blast Cells % Nucleated RBC % Seg Neutrophils # Man Band Neutrophils # Lymphocytes # (Manual) Abs React Lymphs (Man) Monocytes # (Manual) Eosinophils # (Manual) Basophils # (Manual) Metamyelocytes # Myelocytes # Promyelocytes # Blast Cells # WBC Morphology Hypersegmented Neuts Hyposegmented Neuts Hypogranular Neuts Smudge Cells Toxic Granulation Toxic Vacuolation Dohle Bodies Pelger-Huet Anomaly Cisco Rods Platelet Estimate Clumped Platelets Plt Clumps, EDTA Large Platelets Giant Platelets Platelet Satelliting Plt Morphology Comment RBC Morphology Dimorphic RBCs Polychromasia Hypochromasia Poikilocytosis Anisocytosis Microcytosis Macrocytosis Spherocytes Pappenheimer Bodies Sickle Cells Target Cells Tear Drop Cells Ovalocytes Helmet Cells [place] Bodies [place] Rings Vipul Cells Bite Cells Crenated Cell Elliptocytes Acanthocytes (Spur) Rouleaux Hemoglobin C Crystals Schistocytes Malaria parasites Augusto Bodies Hem Pathologist Commnt POC ABG pH POC ABG pCO2 POC ABG pO2 POC ABG HCO3 POC ABG Total CO2 POC ABG O2 Sat POC ABG Base Excess FiO2 Sodium Potassium Chloride Carbon Dioxide Anion Gap BUN Creatinine Estimated GFR BUN/Creatinine Ratio Glucose POC Glucose 108 H 113 H Lactic Acid 4.00 H* Calcium Phosphorus Magnesium Total Bilirubin AST ALT Alkaline Phosphatase Total Protein Albumin Albumin/Globulin Ratio Urine Color Urine Turbidity Urine pH Ur Specific [place] Urine Protein Urine Glucose (UA) Urine Ketones Urine Blood Urine Nitrite Urine Bilirubin Urine Urobilinogen Ur Leukocyte Esterase Urine WBC (Auto) Urine RBC (Auto) Urine Bacteria (Auto) Urine Yeast (Budding) Blood Type Antibody Screen Crossmatch 03/03/19 11:15 WBC RBC Hgb Hct MCV MCH MCHC RDW Plt Count Add Manual Diff Total Counted Seg Neuts % (Manual) Band Neutrophils % Lymphocytes % (Manual) Reactive Lymphs % (Man) Monocytes % (Manual) Eosinophils % (Manual) Basophils % (Manual) Metamyelocytes % Myelocytes % Promyelocytes % Blast Cells % Nucleated RBC % Seg Neutrophils # Man Band Neutrophils # Lymphocytes # (Manual) Abs React Lymphs (Man) Monocytes # (Manual) Eosinophils # (Manual) Basophils # (Manual) Metamyelocytes # Myelocytes # Promyelocytes # Blast Cells # WBC Morphology Hypersegmented Neuts Hyposegmented Neuts Hypogranular Neuts Smudge Cells Toxic Granulation Toxic Vacuolation Dohle Bodies Pelger-Huet Anomaly Cisco Rods Platelet Estimate Clumped Platelets Plt Clumps, EDTA Large Platelets Giant Platelets Platelet Satelliting Plt Morphology Comment RBC Morphology Dimorphic RBCs Polychromasia Hypochromasia Poikilocytosis Anisocytosis Microcytosis Macrocytosis Spherocytes Pappenheimer Bodies Sickle Cells Target Cells Tear Drop Cells Ovalocytes Helmet Cells [place] Bodies [place] Rings [place]ipul Cells Bite Cells Crenated Cell Elliptocytes Acanthocytes (Spur) Rouleaux Hemoglobin C Crystals Schistocytes Malaria parasites Augusto Bodies Hem Pathologist Commnt POC ABG pH POC ABG pCO2 POC ABG pO2 POC ABG HCO3 POC ABG Total CO2 POC ABG O2 Sat POC ABG Base Excess FiO2 Sodium Potassium Chloride Carbon Dioxide Anion Gap BUN Creatinine Estimated GFR BUN/Creatinine Ratio Glucose POC Glucose 126 H Lactic Acid Calcium Phosphorus Magnesium Total Bilirubin AST ALT Alkaline Phosphatase Total Protein Albumin Albumin/Globulin Ratio Urine Color Urine Turbidity Urine pH Ur Specific [place] Urine Protein Urine Glucose (UA) Urine Ketones Urine Blood Urine Nitrite Urine Bilirubin Urine Urobilinogen Ur Leukocyte Esterase Urine WBC (Auto) Urine RBC (Auto) Urine Bacteria (Auto) Urine Yeast (Budding) Blood Type Antibody Screen Crossmatch
--- NOTE | 2019-03-03 13:01 | Progress Note ---
Assessment and Plan 58 year ols female with history of diabetes, hypertension, and peripheral vascular disease, suffered a cardiac arrest on 03/01, now with renal, hepatic injury, on insulin drip, and pressor agents. Reviewed the patient's CT in the radiology dept. There is a clear stroke in the left cerebellar hemisphere and one also in rt. hemisphere. The left occipital stroke is not as clear.Nevertheless the pt. is continuing with multiple organ failure. Echo last night reveals EF of 25% and diffuse wall motion abnormalities. The strokes appear to be cardioembolic. Also question the continuous drop in Hgb. All cultures remain neg. thus far. Plan - Check D-Dimer and fibrionogen levels The pt. has continued to decline systemically and neurologically. I doubt that another imaging study (CT) is going to change anything that we are already doing Subjective Date of service: 03/03/19 Principal diagnosis: anemia Interval history: The pt is a 58 female who is intubated and nonresponsive. HPI obtained per the chart and family. Pt was sent from rehab facility on 02/13/2019 for confusion and lethargy, recently admitted and had had arterial thrombolysis to [facility] for RLE ischemia, and R leg 4 compartment fasciotomy on 01/[address] Jeong. Yesterday, she started having shortness for breath and was transfered to ICU and subsequently intubated. Following intubation, she developed asystole and CODE blue called. Pt noted to have severe anemia, lactic acidosis, hyperkalemia, ARF, elevated LFTs, hypothermia, RLE gangrene, CXR with pulm edema. A NSTEMI occurred and CT brain was performed and revealed bilateral cerebellar infarcts as well as one in the left occipital lobe. The pt. has been too unstable to undergo MRI scan. Overnight the patient again dropped her Hct and was given 1 unit of blood. She is having minimal urine output. LFTs elevated. Objective - Exam Narrative Exam: General - Unresponsive, on ventilator, no sedation. Pressors in place. 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 When manually opened, they are yoked. Pupils - 5 mm on r t.and non reactive. Left - 4 mm nonreactive. Corneal reflexes - absent bilaterally. Face appears symmetric. No gag response to deep suctioning. Motor - no spontaneous movement. No movement to deep pain. Reflexes - absent Sensory - no response to deep painful stimuli. - Vital Sign Vital Signs - 12hr 03/03/19 03/03/19 03/03/19 01:15 01:30 01:45 Temperature Pulse Rate 80 81 82 Pulse Rate [ Anterior Bilateral Throughout] Pulse Rate [ From Monitor] Respiratory 20 20 20 Rate Respiratory Rate [Anterior Bilateral Throughout] Blood Pressure 98/63 100/61 100/62 O2 Sat by Pulse 100 Oximetry 03/03/19 03/03/19 03/03/19 02:00 02:15 02:30 Temperature Pulse Rate 82 81 82 Pulse Rate [ Anterior Bilateral Throughout] Pulse Rate [ From Monitor] Respiratory 20 19 20 Rate Respiratory Rate [Anterior Bilateral Throughout] Blood Pressure 101/62 99/59 97/59 O2 Sat by Pulse 100 99 99 Oximetry 03/03/19 03/03/19 03/03/19 02:43 02:45 03:00 Temperature Pulse Rate 82 84 Pulse Rate [ 100 H Anterior Bilateral Throughout] Pulse Rate [ From Monitor] Respiratory 20 20 Rate Respiratory 20 Rate [Anterior Bilateral Throughout] Blood Pressure 98/58 95/58 O2 Sat by Pulse 100 99 Oximetry 03/03/19 03/03/19 03/03/19 03:15 03:30 03:45 Temperature Pulse Rate 83 84 84 Pulse Rate [ Anterior Bilateral Throughout] Pulse Rate [ From Monitor] Respiratory 20 20 20 Rate Respiratory Rate [Anterior Bilateral Throughout] Blood Pressure 96/58 94/58 91/57 O2 Sat by Pulse 100 99 99 Oximetry 03/03/19 03/03/19 03/03/19 04:00 04:15 04:30 Temperature 97.6 F Pulse Rate 82 82 82 Pulse Rate [ Anterior Bilateral Throughout] Pulse Rate [ 83 From Monitor] Respiratory 20 20 20 Rate Respiratory Rate [Anterior Bilateral Throughout] Blood Pressure 89/55 88/54 87/53 O2 Sat by Pulse 100 99 99 Oximetry 03/03/19 03/03/19 03/03/19 04:45 05:00 05:15 Temperature Pulse Rate 81 81 81 Pulse Rate [ Anterior Bilateral Throughout] Pulse Rate [ From Monitor] Respiratory 20 19 20 Rate Respiratory Rate [Anterior Bilateral Throughout] Blood Pressure 88/52 84/52 88/55 O2 Sat by Pulse 99 100 100 Oximetry 03/03/19 03/03/19 03/03/19 05:30 05:45 05:48 Temperature 97.8 F Pulse Rate 80 80 83 Pulse Rate [ Anterior Bilateral Throughout] Pulse Rate [ From Monitor] Respiratory 20 20 20 Rate Respiratory Rate [Anterior Bilateral Throughout] Blood Pressure 91/59 86/54 86/54 O2 Sat by Pulse 100 100 Oximetry 03/03/19 03/03/19 03/03/19 06:00 06:03 06:15 Temperature 97.7 F Pulse Rate 84 83 84 Pulse Rate [ Anterior Bilateral Throughout] Pulse Rate [ From Monitor] Respiratory 20 20 20 Rate Respiratory Rate [Anterior Bilateral Throughout] Blood Pressure 101/65 101/65 100/63 O2 Sat by Pulse 100 100 Oximetry 03/03/19 03/03/19 03/03/19 06:30 06:33 06:45 Temperature 97.7 F Pulse Rate 85 83 84 Pulse Rate [ Anterior Bilateral Throughout] Pulse Rate [ From Monitor] Respiratory 20 20 21 Rate Respiratory Rate [Anterior Bilateral Throughout] Blood Pressure 101/65 100/63 96/59 O2 Sat by Pulse 100 100 100 Oximetry 03/03/19 03/03/19 03/03/19 06:58 07:00 07:03 Temperature 97.7 F Pulse Rate 83 82 84 Pulse Rate [ 82 Anterior Bilateral Throughout] Pulse Rate [ From Monitor] Respiratory 20 20 Rate Respiratory 20 Rate [Anterior Bilateral Throughout] Blood Pressure 96/59 100/63 100/63 O2 Sat by Pulse 100 100 100 Oximetry 03/03/19 03/03/19 03/03/19 07:15 07:16 07:30 Temperature Pulse Rate 87 86 Pulse Rate [ 87 Anterior Bilateral Throughout] Pulse Rate [ From Monitor] Respiratory 20 20 Rate Respiratory 20 Rate [Anterior Bilateral Throughout] Blood Pressure 107/65 100/65 O2 Sat by Pulse 100 100 Oximetry 03/03/19 03/03/19 03/03/19 07:45 08:00 08:15 Temperature 98.2 F Pulse Rate 85 86 86 Pulse Rate [ Anterior Bilateral Throughout] Pulse Rate [ 86 From Monitor] Respiratory 20 20 20 Rate Respiratory Rate [Anterior Bilateral Throughout] Blood Pressure 103/65 104/65 103/67 O2 Sat by Pulse 100 100 100 Oximetry 03/03/19 03/03/19 03/03/19 08:30 08:45 09:00 Temperature Pulse Rate 87 87 82 Pulse Rate [ Anterior Bilateral Throughout] Pulse Rate [ From Monitor] Respiratory 20 20 20 Rate Respiratory Rate [Anterior Bilateral Throughout] Blood Pressure 108/68 109/64 85/52 O2 Sat by Pulse 100 99 Oximetry 03/03/19 03/03/19 03/03/19 09:15 09:30 09:46 Temperature Pulse Rate 83 82 86 Pulse Rate [ Anterior Bilateral Throughout] Pulse Rate [ From Monitor] Respiratory 20 20 20 Rate Respiratory Rate [Anterior Bilateral Throughout] Blood Pressure 84/52 83/51 94/61 O2 Sat by Pulse 99 99 100 Oximetry 03/03/19 03/03/19 03/03/19 10:00 10:15 10:30 Temperature Pulse Rate 89 90 91 H Pulse Rate [ Anterior Bilateral Throughout] Pulse Rate [ From Monitor] Respiratory 20 20 20 Rate Respiratory Rate [Anterior Bilateral Throughout] Blood Pressure 83/51 128/75 130/75 O2 Sat by Pulse 100 99 99 Oximetry 03/03/19 03/03/19 03/03/19 10:45 11:00 11:15 Temperature Pulse Rate 91 H 90 89 Pulse Rate [ Anterior Bilateral Throughout] Pulse Rate [ From Monitor] Respiratory 20 20 20 Rate Respiratory Rate [Anterior Bilateral Throughout] Blood Pressure 133/74 128/72 122/71 O2 Sat by Pulse 99 99 99 Oximetry 03/03/19 03/03/19 03/03/19 11:30 11:45 11:57 Temperature Pulse Rate 87 87 86 Pulse Rate [ Anterior Bilateral Throughout] Pulse Rate [ From Monitor] Respiratory 20 20 Rate Respiratory Rate [Anterior Bilateral Throughout] Blood Pressure 112/69 115/67 115/67 O2 Sat by Pulse 100 98 100 Oximetry 03/03/19 12:00 Temperature 98.6 F Pulse Rate 86 Pulse Rate [ Anterior Bilateral Throughout] Pulse Rate [ 89 From Monitor] Respiratory 20 Rate Respiratory Rate [Anterior Bilateral Throughout] Blood Pressure 112/68 O2 Sat by Pulse 98 Oximetry - Laboratory Findings CBC and BMP: 03/03/19 08:30 03/03/19 08:30 Abnormal Lab Findings: Abnormal Labs 02/13/19 02/13/19 02/13/19 13:55 14:08 14:08 WBC 21.3 H RBC 3.00 L Hgb 8.5 L Hct 26.7 L MCHC RDW 16.4 H Plt Count 528 H Seg Neuts % (Manual) 89.0 H Lymphocytes % (Manual) 4.0 L Monocytes % (Manual) Nucleated RBC % 2.0 H Seg Neutrophils # Man 19.0 H Lymphocytes # (Manual) 0.9 L Monocytes # (Manual) PT INR D-Dimer POC ABG pH POC ABG pCO2 POC ABG pO2 Sodium 129 L Potassium 5.4 H Chloride 91.8 L Carbon Dioxide 17 L BUN 52 H Creatinine 2.5 H Glucose 402 H POC Glucose 389 H Hemoglobin A1c Lactic Acid Calcium Magnesium Total Bilirubin 1.50 H Direct Bilirubin 1.1 H AST 61 H ALT Alkaline Phosphatase 271 H Total Creatine Kinase CK-MB (CK-2) Troponin T NT-Pro-B Natriuret Pep Total Protein Albumin 2.3 L Triglycerides LDL Cholesterol Direct HDL Cholesterol Urine WBC (Auto) Crossmatch 02/13/19 02/13/19 02/13/19 14:15 14:15 14:20 WBC RBC Hgb Hct MCHC RDW Plt Count Seg Neuts % (Manual) Lymphocytes % (Manual) Monocytes % (Manual) Nucleated RBC % Seg Neutrophils # Man Lymphocytes # (Manual) Monocytes # (Manual) PT 15.6 H INR 1.17 H D-Dimer POC ABG pH POC ABG pCO2 POC ABG pO2 Sodium Potassium Chloride Carbon Dioxide BUN Creatinine Glucose POC Glucose Hemoglobin A1c Lactic Acid Calcium Magnesium 1.60 L Total Bilirubin Direct Bilirubin AST ALT Alkaline Phosphatase Total Creatine Kinase 1295 H CK-MB (CK-2) Troponin T 0.072 H NT-Pro-B Natriuret Pep 6167 H Total Protein Albumin Triglycerides 329 H LDL Cholesterol Direct 36 L HDL Cholesterol 17 L Urine WBC (Auto) Crossmatch 02/13/19 02/13/19 02/13/19 15:36 18:15 20:59 WBC RBC Hgb Hct MCHC RDW Plt Count Seg Neuts % (Manual) Lymphocytes % (Manual) Monocytes % (Manual) Nucleated RBC % Seg Neutrophils # Man Lymphocytes # (Manual) Monocytes # (Manual) PT INR D-Dimer POC ABG pH POC ABG pCO2 POC ABG pO2 Sodium Potassium Chloride Carbon Dioxide BUN Creatinine Glucose POC Glucose 293 H 390 H Hemoglobin A1c 9.2 H Lactic Acid Calcium Magnesium Total Bilirubin Direct Bilirubin AST ALT Alkaline Phosphatase Total Creatine Kinase CK-MB (CK-2) Troponin T NT-Pro-B Natriuret Pep Total Protein Albumin Triglycerides LDL Cholesterol Direct HDL Cholesterol Urine WBC (Auto) Crossmatch 02/14/19 02/14/19 02/14/19 07:45 08:15 08:15 WBC 23.2 H RBC 2.89 L Hgb 8.3 L Hct 25.3 L MCHC RDW 16.6 H Plt Count 457 H Seg Neuts % (Manual) 91.0 H Lymphocytes % (Manual) 3.0 L Monocytes % (Manual) Nucleated RBC % Seg Neutrophils # Man 21.1 H Lymphocytes # (Manual) 0.7 L Monocytes # (Manual) 1.2 H PT INR D-Dimer POC ABG pH POC ABG pCO2 POC ABG pO2 Sodium 126 L Potassium 5.3 H Chloride 91.5 L Carbon Dioxide 17 L BUN 65 H Creatinine 2.4 H Glucose 418 H POC Glucose Hemoglobin A1c Lactic Acid Calcium 8.2 L Magnesium 2.90 H Total Bilirubin 1.60 H Direct Bilirubin AST 47 H ALT Alkaline Phosphatase 218 H Total Creatine Kinase CK-MB (CK-2) Troponin T NT-Pro-B Natriuret Pep Total Protein 6.2 L Albumin 2.2 L Triglycerides LDL Cholesterol Direct HDL Cholesterol Urine WBC (Auto) Crossmatch 02/14/19 02/14/19 02/14/19 09:07 09:30 18:53 WBC RBC Hgb Hct MCHC RDW Plt Count Seg Neuts % (Manual) Lymphocytes % (Manual) Monocytes % (Manual) Nucleated RBC % Seg Neutrophils # Man Lymphocytes # (Manual) Monocytes # (Manual) PT INR D-Dimer POC ABG pH POC ABG pCO2 POC ABG pO2 Sodium Potassium Chloride Carbon Dioxide BUN Creatinine Glucose POC Glucose 384 H 353 H Hemoglobin A1c Lactic Acid Calcium Magnesium Total Bilirubin Direct Bilirubin AST ALT Alkaline Phosphatase Total Creatine Kinase CK-MB (CK-2) Troponin T NT-Pro-B Natriuret Pep Total Protein Albumin Triglycerides LDL Cholesterol Direct HDL Cholesterol Urine WBC (Auto) > 182.0 H Crossmatch 02/14/19 02/14/19 02/15/19 21:33 21:40 01:45 WBC RBC Hgb Hct MCHC RDW Plt Count Seg Neuts % (Manual) Lymphocytes % (Manual) Monocytes % (Manual) Nucleated RBC % Seg Neutrophils # Man Lymphocytes # (Manual) Monocytes # (Manual) PT INR D-Dimer POC ABG pH POC ABG pCO2 POC ABG pO2 Sodium Potassium Chloride Carbon Dioxide BUN Creatinine Glucose POC Glucose 404 H 360 H 299 H Hemoglobin A1c Lactic Acid Calcium Magnesium Total Bilirubin Direct Bilirubin AST ALT Alkaline Phosphatase Total Creatine Kinase CK-MB (CK-2) Troponin T NT-Pro-B Natriuret Pep Total Protein Albumin Triglycerides LDL Cholesterol Direct HDL Cholesterol Urine WBC (Auto) Crossmatch 0302/15/19 02/15/19 05:32 05:38 11:35 WBC RBC Hgb Hct MCHC RDW Plt Count Seg Neuts % (Manual) Lymphocytes % (Manual) Monocytes % (Manual) Nucleated RBC % Seg Neutrophils # Man Lymphocytes # (Manual) Monocytes # (Manual) PT INR D-Dimer POC ABG pH POC ABG pCO2 POC ABG pO2 Sodium Potassium Chloride Carbon Dioxide BUN Creatinine Glucose POC Glucose 402 H 393 H Hemoglobin A1c Lactic Acid Calcium Magnesium 2.80 H Total Bilirubin Direct Bilirubin AST ALT Alkaline Phosphatase Total Creatine Kinase 448 H CK-MB (CK-2) Troponin T NT-Pro-B Natriuret Pep Total Protein Albumin Triglycerides LDL Cholesterol Direct HDL Cholesterol Urine WBC (Auto) Crossmatch 02/15/19 02/15/19 02/15/19 14:15 14:48 17:21 WBC RBC Hgb Hct MCHC RDW Plt Count Seg Neuts % (Manual) Lymphocytes % (Manual) Monocytes % (Manual) Nucleated RBC % Seg Neutrophils # Man Lymphocytes # (Manual) Monocytes # (Manual) PT INR D-Dimer POC ABG pH POC ABG pCO2 POC ABG pO2 Sodium 128 L Potassium Chloride 92.4 L Carbon Dioxide 21 L BUN 86 H Creatinine 1.9 H Glucose 436 H POC Glucose 386 H 347 H Hemoglobin A1c Lactic Acid Calcium 8.1 L Magnesium Total Bilirubin Direct Bilirubin AST ALT Alkaline Phosphatase Total Creatine Kinase CK-MB (CK-2) Troponin T NT-Pro-B Natriuret Pep Total Protein Albumin Triglycerides LDL Cholesterol Direct HDL Cholesterol Urine WBC (Auto) Crossmatch 02/15/19 02/15/19 02/16/19 22:32 23:51 04:08 WBC RBC Hgb Hct MCHC RDW Plt Count Seg Neuts % (Manual) Lymphocytes % (Manual) Monocytes % (Manual) Nucleated RBC % Seg Neutrophils # Man Lymphocytes # (Manual) Monocytes # (Manual) PT INR D-Dimer POC ABG pH POC ABG pCO2 POC ABG pO2 Sodium Potassium Chloride Carbon Dioxide BUN Creatinine Glucose POC Glucose 272 H 244 H 253 H Hemoglobin A1c Lactic Acid Calcium Magnesium Total Bilirubin Direct Bilirubin AST ALT Alkaline Phosphatase Total Creatine Kinase CK-MB (CK-2) Troponin T NT-Pro-B Natriuret Pep Total Protein Albumin Triglycerides LDL Cholesterol Direct HDL Cholesterol Urine WBC (Auto) Crossmatch 03/19/19 03/19/19 03/19/19 05:29 08:52 11:55 WBC RBC Hgb Hct MCHC RDW Plt Count Seg Neuts % (Manual) Lymphocytes % (Manual) Monocytes % (Manual) Nucleated RBC % Seg Neutrophils # Man Lymphocytes # (Manual) Monocytes # (Manual) PT INR D-Dimer POC ABG pH POC ABG pCO2 POC ABG pO2 Sodium Potassium Chloride Carbon Dioxide BUN Creatinine Glucose POC Glucose 262 H 313 H Hemoglobin A1c Lactic Acid Calcium Magnesium Total Bilirubin Direct Bilirubin AST ALT Alkaline Phosphatase Total Creatine Kinase 200 H CK-MB (CK-2) Troponin T NT-Pro-B Natriuret Pep Total Protein Albumin Triglycerides LDL Cholesterol Direct HDL Cholesterol Urine WBC (Auto) Crossmatch 02/16/19 02/16/19 02/17/19 16:20 22:38 00:15 WBC RBC Hgb Hct MCHC RDW Plt Count Seg Neuts % (Manual) Lymphocytes % (Manual) Monocytes % (Manual) Nucleated RBC % Seg Neutrophils # Man Lymphocytes # (Manual) Monocytes # (Manual) PT INR D-Dimer POC ABG pH POC ABG pCO2 POC ABG pO2 Sodium 131 L Potassium Chloride 95.7 L Carbon Dioxide 21 L BUN 70 H Creatinine 1.3 H Glucose 121 H POC Glucose 146 H 125 H Hemoglobin A1c Lactic Acid Calcium 8.0 L Magnesium Total Bilirubin Direct Bilirubin AST ALT Alkaline Phosphatase Total Creatine Kinase CK-MB (CK-2) Troponin T NT-Pro-B Natriuret Pep Total Protein Albumin Triglycerides LDL Cholesterol Direct HDL Cholesterol Urine WBC (Auto) Crossmatch 02/17/19 02/17/19 02/17/19 03:49 07:32 10:41 WBC 13.3 H RBC 2.92 L Hgb 8.2 L Hct 24.6 L MCHC RDW 16.2 H Plt Count Seg Neuts % (Manual) 85.0 H Lymphocytes % (Manual) 8.0 L Monocytes % (Manual) Nucleated RBC % Seg Neutrophils # Man 11.3 H Lymphocytes # (Manual) 1.1 L Monocytes # (Manual) PT INR D-Dimer POC ABG pH POC ABG pCO2 POC ABG pO2 Sodium 129 L Potassium 5.2 H D Chloride 95.9 L Carbon Dioxide 18 L BUN 69 H Creatinine 1.4 H Glucose POC Glucose 146 H Hemoglobin A1c Lactic Acid Calcium 8.1 L Magnesium Total Bilirubin Direct Bilirubin AST ALT Alkaline Phosphatase Total Creatine Kinase CK-MB (CK-2) Troponin T NT-Pro-B Natriuret Pep Total Protein Albumin Triglycerides LDL Cholesterol Direct HDL Cholesterol Urine WBC (Auto) Crossmatch 02/17/19 02/17/19 02/18/19 11:14 16:18 01:14 WBC 14.6 H RBC 2.53 L Hgb 7.1 L Hct 21.7 L MCHC RDW 16.6 H Plt Count Seg Neuts % (Manual) 72.0 H Lymphocytes % (Manual) 8.0 L Monocytes % (Manual) 11.0 H Nucleated RBC % Seg Neutrophils # Man 10.5 H Lymphocytes # (Manual) Monocytes # (Manual) 1.6 H PT INR D-Dimer POC ABG pH POC ABG pCO2 POC ABG pO2 Sodium Potassium Chloride Carbon Dioxide BUN Creatinine Glucose POC Glucose 219 H 176 H Hemoglobin A1c Lactic Acid Calcium Magnesium Total Bilirubin Direct Bilirubin AST ALT Alkaline Phosphatase Total Creatine Kinase CK-MB (CK-2) Troponin T NT-Pro-B Natriuret Pep Total Protein Albumin Triglycerides LDL Cholesterol Direct HDL Cholesterol Urine WBC (Auto) Crossmatch 02/18/19 02/18/19 02/18/19 04:25 11:35 11:57 WBC RBC Hgb Hct MCHC RDW Plt Count Seg Neuts % (Manual) Lymphocytes % (Manual) Monocytes % (Manual) Nucleated RBC % Seg Neutrophils # Man Lymphocytes # (Manual) Monocytes # (Manual) PT INR D-Dimer POC ABG pH POC ABG pCO2 POC ABG pO2 Sodium 130 L Potassium Chloride 94.7 L Carbon Dioxide BUN 53 H Creatinine Glucose POC Glucose 197 H Hemoglobin A1c Lactic Acid Calcium 7.8 L Magnesium Total Bilirubin Direct Bilirubin AST ALT Alkaline Phosphatase Total Creatine Kinase CK-MB (CK-2) Troponin T NT-Pro-B Natriuret Pep Total Protein Albumin Triglycerides LDL Cholesterol Direct HDL Cholesterol Urine WBC (Auto) Crossmatch See Detail 02/18/19 02/18/19 02/19/19 16:32 21:26 07:01 WBC RBC Hgb Hct MCHC RDW Plt Count Seg Neuts % (Manual) Lymphocytes % (Manual) Monocytes % (Manual) Nucleated RBC % Seg Neutrophils # Man Lymphocytes # (Manual) Monocytes # (Manual) PT INR D-Dimer POC ABG pH POC ABG pCO2 POC ABG pO2 Sodium 135 L Potassium Chloride Carbon Dioxide BUN 36 H Creatinine Glucose POC Glucose 108 H 107 H Hemoglobin A1c Lactic Acid Calcium 7.9 L Magnesium Total Bilirubin Direct Bilirubin AST ALT Alkaline Phosphatase Total Creatine Kinase CK-MB (CK-2) Troponin T NT-Pro-B Natriuret Pep Total Protein Albumin Triglycerides LDL Cholesterol Direct HDL Cholesterol Urine WBC (Auto) Crossmatch 02/19/19 02/19/19 02/19/19 11:11 13:46 15:19 WBC 12.0 H RBC 2.63 L Hgb 7.5 L Hct 23.3 L MCHC RDW 16.6 H Plt Count Seg Neuts % (Manual) 74.0 H Lymphocytes % (Manual) Monocytes % (Manual) Nucleated RBC % Seg Neutrophils # Man 8.9 H Lymphocytes # (Manual) Monocytes # (Manual) PT INR D-Dimer POC ABG pH POC ABG pCO2 POC ABG pO2 Sodium Potassium Chloride Carbon Dioxide BUN Creatinine Glucose POC Glucose 125 H 181 H Hemoglobin A1c Lactic Acid Calcium Magnesium Total Bilirubin Direct Bilirubin AST ALT Alkaline Phosphatase Total Creatine Kinase CK-MB (CK-2) Troponin T NT-Pro-B Natriuret Pep Total Protein Albumin Triglycerides LDL Cholesterol Direct HDL Cholesterol Urine WBC (Auto) Crossmatch 02/19/19 02/20/19 02/20/19 22:04 02:47 05:25 WBC RBC Hgb Hct MCHC RDW Plt Count Seg Neuts % (Manual) Lymphocytes % (Manual) Monocytes % (Manual) Nucleated RBC % Seg Neutrophils # Man Lymphocytes # (Manual) Monocytes # (Manual) PT INR D-Dimer POC ABG pH POC ABG pCO2 POC ABG pO2 Sodium Potassium Chloride Carbon Dioxide BUN Creatinine Glucose POC Glucose 298 H 136 H 106 H Hemoglobin A1c Lactic Acid Calcium Magnesium Total Bilirubin Direct Bilirubin AST ALT Alkaline Phosphatase Total Creatine Kinase CK-MB (CK-2) Troponin T NT-Pro-B Natriuret Pep Total Protein Albumin Triglycerides LDL Cholesterol Direct HDL Cholesterol Urine WBC (Auto) Crossmatch 02/20/19 02/20/19 02/20/19 06:07 07:55 12:17 WBC RBC Hgb Hct MCHC RDW Plt Count Seg Neuts % (Manual) Lymphocytes % (Manual) Monocytes % (Manual) Nucleated RBC % Seg Neutrophils # Man Lymphocytes # (Manual) Monocytes # (Manual) PT INR D-Dimer POC ABG pH POC ABG pCO2 POC ABG pO2 Sodium Potassium Chloride Carbon Dioxide BUN 23 H Creatinine Glucose 105 H POC Glucose 112 H 195 H Hemoglobin A1c Lactic Acid Calcium 7.4 L Magnesium Total Bilirubin Direct Bilirubin AST ALT Alkaline Phosphatase Total Creatine Kinase CK-MB (CK-2) Troponin T NT-Pro-B Natriuret Pep Total Protein Albumin Triglycerides LDL Cholesterol Direct HDL Cholesterol Urine WBC (Auto) Crossmatch 02/20/19 02/20/19 02/21/19 16:34 22:23 11:35 WBC RBC Hgb Hct MCHC RDW Plt Count Seg Neuts % (Manual) Lymphocytes % (Manual) Monocytes % (Manual) Nucleated RBC % Seg Neutrophils # Man Lymphocytes # (Manual) Monocytes # (Manual) PT INR D-Dimer POC ABG pH POC ABG pCO2 POC ABG pO2 Sodium Potassium Chloride Carbon Dioxide BUN Creatinine Glucose POC Glucose 117 H 153 H 142 H Hemoglobin A1c Lactic Acid Calcium Magnesium Total Bilirubin Direct Bilirubin AST ALT Alkaline Phosphatase Total Creatine Kinase CK-MB (CK-2) Troponin T NT-Pro-B Natriuret Pep Total Protein Albumin Triglycerides LDL Cholesterol Direct HDL Cholesterol Urine WBC (Auto) Crossmatch 02/21/19 02/21/19 02/21/19 11:38 17:12 19:19 WBC RBC Hgb Hct MCHC RDW Plt Count Seg Neuts % (Manual) Lymphocytes % (Manual) Monocytes % (Manual) Nucleated RBC % Seg Neutrophils # Man Lymphocytes # (Manual) Monocytes # (Manual) PT INR D-Dimer POC ABG pH POC ABG pCO2 POC ABG pO2 Sodium 135 L Potassium Chloride Carbon Dioxide 18 L BUN Creatinine Glucose 129 H POC Glucose 61 L 135 H Hemoglobin A1c Lactic Acid Calcium 7.4 L Magnesium Total Bilirubin Direct Bilirubin AST ALT Alkaline Phosphatase Total Creatine Kinase CK-MB (CK-2) Troponin T NT-Pro-B Natriuret Pep Total Protein Albumin Triglycerides LDL Cholesterol Direct HDL Cholesterol Urine WBC (Auto) Crossmatch 02/21/19 02/22/19 02/22/19 21:24 04:18 04:49 WBC RBC Hgb Hct MCHC RDW Plt Count Seg Neuts % (Manual) Lymphocytes % (Manual) Monocytes % (Manual) Nucleated RBC % Seg Neutrophils # Man Lymphocytes # (Manual) Monocytes # (Manual) PT INR D-Dimer POC ABG pH 7.459 H POC ABG pCO2 POC ABG pO2 Sodium Potassium Chloride Carbon Dioxide BUN Creatinine Glucose POC Glucose 146 H 186 H Hemoglobin A1c Lactic Acid Calcium Magnesium Total Bilirubin Direct Bilirubin AST ALT Alkaline Phosphatase Total Creatine Kinase CK-MB (CK-2) Troponin T NT-Pro-B Natriuret Pep Total Protein Albumin Triglycerides LDL Cholesterol Direct HDL Cholesterol Urine WBC (Auto) Crossmatch 02/22/19 02/22/19 02/22/19 07:56 08:26 08:26 WBC RBC Hgb Hct MCHC RDW Plt Count Seg Neuts % (Manual) Lymphocytes % (Manual) Monocytes % (Manual) Nucleated RBC % Seg Neutrophils # Man Lymphocytes # (Manual) Monocytes # (Manual) PT INR D-Dimer 1481.17 H POC ABG pH POC ABG pCO2 POC ABG pO2 Sodium 133 L Potassium 5.3 H Chloride Carbon Dioxide 19 L BUN Creatinine Glucose 216 H POC Glucose 239 H Hemoglobin A1c Lactic Acid Calcium 7.7 L Magnesium Total Bilirubin Direct Bilirubin AST ALT Alkaline Phosphatase Total Creatine Kinase CK-MB (CK-2) Troponin T NT-Pro-B Natriuret Pep Total Protein Albumin Triglycerides LDL Cholesterol Direct HDL Cholesterol Urine WBC (Auto) Crossmatch 02/22/19 02/22/19 02/22/19 11:59 17:06 22:00 WBC RBC Hgb Hct MCHC RDW Plt Count Seg Neuts % (Manual) Lymphocytes % (Manual) Monocytes % (Manual) Nucleated RBC % Seg Neutrophils # Man Lymphocytes # (Manual) Monocytes # (Manual) PT INR D-Dimer POC ABG pH POC ABG pCO2 POC ABG pO2 Sodium Potassium Chloride Carbon Dioxide BUN Creatinine Glucose POC Glucose 238 H 61 L 174 H Hemoglobin A1c Lactic Acid Calcium Magnesium Total Bilirubin Direct Bilirubin AST ALT Alkaline Phosphatase Total Creatine Kinase CK-MB (CK-2) Troponin T NT-Pro-B Natriuret Pep Total Protein Albumin Triglycerides LDL Cholesterol Direct HDL Cholesterol Urine WBC (Auto) Crossmatch 02/23/19 02/23/19 02/23/19 06:12 07:50 21:43 WBC RBC Hgb Hct MCHC RDW Plt Count Seg Neuts % (Manual) Lymphocytes % (Manual) Monocytes % (Manual) Nucleated RBC % Seg Neutrophils # Man Lymphocytes # (Manual) Monocytes # (Manual) PT INR D-Dimer POC ABG pH POC ABG pCO2 POC ABG pO2 Sodium Potassium Chloride Carbon Dioxide 19 L BUN 18 H Creatinine Glucose 52 L POC Glucose 55 L 107 H Hemoglobin A1c Lactic Acid Calcium 8.3 L Magnesium Total Bilirubin Direct Bilirubin AST ALT Alkaline Phosphatase Total Creatine Kinase CK-MB (CK-2) Troponin T NT-Pro-B Natriuret Pep Total Protein Albumin Triglycerides LDL Cholesterol Direct HDL Cholesterol Urine WBC (Auto) Crossmatch 02/24/19 02/24/19 02/24/19 07:29 11:29 16:05 WBC RBC Hgb Hct MCHC RDW Plt Count Seg Neuts % (Manual) Lymphocytes % (Manual) Monocytes % (Manual) Nucleated RBC % Seg Neutrophils # Man Lymphocytes # (Manual) Monocytes # (Manual) PT INR D-Dimer POC ABG pH POC ABG pCO2 POC ABG pO2 Sodium Potassium Chloride Carbon Dioxide BUN Creatinine Glucose POC Glucose 176 H 253 H 179 H Hemoglobin A1c Lactic Acid Calcium Magnesium Total Bilirubin Direct Bilirubin AST ALT Alkaline Phosphatase Total Creatine Kinase CK-MB (CK-2) Troponin T NT-Pro-B Natriuret Pep Total Protein Albumin Triglycerides LDL Cholesterol Direct HDL Cholesterol Urine WBC (Auto) Crossmatch 02/24/19 02/25/19 02/25/19 21:50 07:57 11:54 WBC RBC Hgb Hct MCHC RDW Plt Count Seg Neuts % (Manual) Lymphocytes % (Manual) Monocytes % (Manual) Nucleated RBC % Seg Neutrophils # Man Lymphocytes # (Manual) Monocytes # (Manual) PT INR D-Dimer POC ABG pH POC ABG pCO2 POC ABG pO2 Sodium Potassium Chloride Carbon Dioxide BUN Creatinine Glucose POC Glucose 200 H 249 H 260 H Hemoglobin A1c Lactic Acid Calcium Magnesium Total Bilirubin Direct Bilirubin AST ALT Alkaline Phosphatase Total Creatine Kinase CK-MB (CK-2) Troponin T NT-Pro-B Natriuret Pep Total Protein Albumin Triglycerides LDL Cholesterol Direct HDL Cholesterol Urine WBC (Auto) Crossmatch 02/25/19 02/25/19 02/26/19 16:34 21:52 07:54 WBC RBC Hgb Hct MCHC RDW Plt Count Seg Neuts % (Manual) Lymphocytes % (Manual) Monocytes % (Manual) Nucleated RBC % Seg Neutrophils # Man Lymphocytes # (Manual) Monocytes # (Manual) PT INR D-Dimer POC ABG pH POC ABG pCO2 POC ABG pO2 Sodium Potassium Chloride Carbon Dioxide BUN Creatinine Glucose POC Glucose 198 H 254 H 213 H Hemoglobin A1c Lactic Acid Calcium Magnesium Total Bilirubin Direct Bilirubin AST ALT Alkaline Phosphatase Total Creatine Kinase CK-MB (CK-2) Troponin T NT-Pro-B Natriuret Pep Total Protein Albumin Triglycerides LDL Cholesterol Direct HDL Cholesterol Urine WBC (Auto) Crossmatch 02/26/19 02/26/19 02/26/19 11:49 16:00 22:00 WBC RBC Hgb Hct MCHC RDW Plt Count Seg Neuts % (Manual) Lymphocytes % (Manual) Monocytes % (Manual) Nucleated RBC % Seg Neutrophils # Man Lymphocytes # (Manual) Monocytes # (Manual) PT INR D-Dimer POC ABG pH POC ABG pCO2 POC ABG pO2 Sodium Potassium Chloride Carbon Dioxide BUN Creatinine Glucose POC Glucose 306 H 183 H 162 H Hemoglobin A1c Lactic Acid Calcium Magnesium Total Bilirubin Direct Bilirubin AST ALT Alkaline Phosphatase Total Creatine Kinase CK-MB (CK-2) Troponin T NT-Pro-B Natriuret Pep Total Protein Albumin Triglycerides LDL Cholesterol Direct HDL Cholesterol Urine WBC (Auto) Crossmatch 02/27/19 02/27/19 02/27/19 07:44 11:11 16:57 WBC RBC Hgb Hct MCHC RDW Plt Count Seg Neuts % (Manual) Lymphocytes % (Manual) Monocytes % (Manual) Nucleated RBC % Seg Neutrophils # Man Lymphocytes # (Manual) Monocytes # (Manual) PT INR D-Dimer POC ABG pH POC ABG pCO2 POC ABG pO2 Sodium Potassium Chloride Carbon Dioxide BUN Creatinine Glucose POC Glucose 171 H 217 H 199 H Hemoglobin A1c Lactic Acid Calcium Magnesium Total Bilirubin Direct Bilirubin AST ALT Alkaline Phosphatase Total Creatine Kinase CK-MB (CK-2) Troponin T NT-Pro-B Natriuret Pep Total Protein Albumin Triglycerides LDL Cholesterol Direct HDL Cholesterol Urine WBC (Auto) Crossmatch 02/27/19 02/28/19 02/28/19 21:48 07:36 11:41 WBC RBC Hgb Hct MCHC RDW Plt Count Seg Neuts % (Manual) Lymphocytes % (Manual) Monocytes % (Manual) Nucleated RBC % Seg Neutrophils # Man Lymphocytes # (Manual) Monocytes # (Manual) PT INR D-Dimer POC ABG pH POC ABG pCO2 POC ABG pO2 Sodium Potassium Chloride Carbon Dioxide BUN Creatinine Glucose POC Glucose 161 H 148 H 244 H Hemoglobin A1c Lactic Acid Calcium Magnesium Total Bilirubin Direct Bilirubin AST ALT Alkaline Phosphatase Total Creatine Kinase CK-MB (CK-2) Troponin T NT-Pro-B Natriuret Pep Total Protein Albumin Triglycerides LDL Cholesterol Direct HDL Cholesterol Urine WBC (Auto) Crossmatch 02/28/19 02/28/19 02/28/19 16:32 16:53 17:28 WBC RBC Hgb Hct MCHC RDW Plt Count Seg Neuts % (Manual) Lymphocytes % (Manual) Monocytes % (Manual) Nucleated RBC % Seg Neutrophils # Man Lymphocytes # (Manual) Monocytes # (Manual) PT INR D-Dimer POC ABG pH POC ABG pCO2 POC ABG pO2 53 L Sodium Potassium Chloride Carbon Dioxide BUN Creatinine Glucose POC Glucose 283 H Hemoglobin A1c Lactic Acid Calcium Magnesium Total Bilirubin Direct Bilirubin AST ALT Alkaline Phosphatase Total Creatine Kinase CK-MB (CK-2) Troponin T 0.119 H* NT-Pro-B Natriuret Pep Total Protein Albumin Triglycerides LDL Cholesterol Direct HDL Cholesterol Urine WBC (Auto) Crossmatch 02/28/19 02/28/19 02/28/19 18:33 18:33 18:33 WBC 11.5 H RBC 2.35 L Hgb 6.5 L Hct 21.2 L MCHC RDW 17.6 H Plt Count 631 H Seg Neuts % (Manual) 87.0 H Lymphocytes % (Manual) 9.0 L Monocytes % (Manual) Nucleated RBC % Seg Neutrophils # Man 10.0 H Lymphocytes # (Manual) 1.0 L Monocytes # (Manual) PT 15.5 H INR 1.16 H D-Dimer POC ABG pH POC ABG pCO2 POC ABG pO2 Sodium Potassium Chloride Carbon Dioxide BUN Creatinine Glucose POC Glucose Hemoglobin A1c Lactic Acid Calcium Magnesium Total Bilirubin Direct Bilirubin AST ALT Alkaline Phosphatase Total Creatine Kinase 165 H CK-MB (CK-2) 4.9 H Troponin T 0.123 H* NT-Pro-B Natriuret Pep Total Protein Albumin Triglycerides LDL Cholesterol Direct HDL Cholesterol Urine WBC (Auto) Crossmatch 02/28/19 02/28/19 02/28/19 18:33 19:55 21:39 WBC RBC Hgb Hct MCHC RDW Plt Count Seg Neuts % (Manual) Lymphocytes % (Manual) Monocytes % (Manual) Nucleated RBC % Seg Neutrophils # Man Lymphocytes # (Manual) Monocytes # (Manual) PT INR D-Dimer POC ABG pH 7.319 L POC ABG pCO2 POC ABG pO2 196 H Sodium 136 L Potassium 5.6 H Chloride Carbon Dioxide 14 L BUN 21 H Creatinine 1.4 H Glucose 274 H POC Glucose 277 H Hemoglobin A1c Lactic Acid Calcium 8.3 L Magnesium Total Bilirubin Direct Bilirubin AST ALT Alkaline Phosphatase 165 H Total Creatine Kinase CK-MB (CK-2) Troponin T NT-Pro-B Natriuret Pep Total Protein Albumin 2.7 L Triglycerides LDL Cholesterol Direct HDL Cholesterol Urine WBC (Auto) Crossmatch 02/28/19 02/28/19 02/28/19 22:46 22:47 22:59 WBC RBC Hgb Hct MCHC RDW Plt Count Seg Neuts % (Manual) Lymphocytes % (Manual) Monocytes % (Manual) Nucleated RBC % Seg Neutrophils # Man Lymphocytes # (Manual) Monocytes # (Manual) PT INR D-Dimer POC ABG pH 7.068 L POC ABG pCO2 34.7 L POC ABG pO2 280 H Sodium Potassium Chloride Carbon Dioxide BUN Creatinine Glucose POC Glucose Hemoglobin A1c Lactic Acid 16.50 H* Calcium Magnesium Total Bilirubin Direct Bilirubin AST ALT Alkaline Phosphatase Total Creatine Kinase CK-MB (CK-2) Troponin T 0.595 H* D NT-Pro-B Natriuret Pep Total Protein Albumin Triglycerides LDL Cholesterol Direct HDL Cholesterol Urine WBC (Auto) Crossmatch 02/28/19 03/01/19 03/01/19 22:59 00:47 00:48 WBC RBC Hgb Hct MCHC RDW Plt Count Seg Neuts % (Manual) Lymphocytes % (Manual) Monocytes % (Manual) Nucleated RBC % Seg Neutrophils # Man Lymphocytes # (Manual) Monocytes # (Manual) PT INR D-Dimer POC ABG pH POC ABG pCO2 POC ABG pO2 Sodium Potassium 7.0 H* D 7.3 H* Chloride 97.5 L Carbon Dioxide 10 L 7 L* BUN 22 H 23 H Creatinine 1.7 H 2.0 H Glucose 223 H 222 H POC Glucose Hemoglobin A1c Lactic Acid 19.80 H* Calcium 8.1 L Magnesium Total Bilirubin Direct Bilirubin AST 107 H 223 H ALT Alkaline Phosphatase 208 H 209 H Total Creatine Kinase CK-MB (CK-2) Troponin T NT-Pro-B Natriuret Pep Total Protein 5.9 L Albumin 2.7 L 2.5 L Triglycerides LDL Cholesterol Direct HDL Cholesterol Urine WBC (Auto) Crossmatch 03/01/19 03/01/19 03/01/19 04:07 04:07 04:07 WBC RBC Hgb Hct MCHC RDW Plt Count Seg Neuts % (Manual) Lymphocytes % (Manual) Monocytes % (Manual) Nucleated RBC % Seg Neutrophils # Man Lymphocytes # (Manual) Monocytes # (Manual) PT INR D-Dimer POC ABG pH POC ABG pCO2 POC ABG pO2 Sodium Potassium 6.1 H* Chloride Carbon Dioxide 6 L* BUN 22 H Creatinine 2.0 H Glucose 269 H POC Glucose Hemoglobin A1c Lactic Acid 22.60 H* Calcium 6.9 L Magnesium Total Bilirubin Direct Bilirubin AST 1971 H ALT 686 H Alkaline Phosphatase 193 H Total Creatine Kinase CK-MB (CK-2) Troponin T 2.910 H* D NT-Pro-B Natriuret Pep Total Protein 4.6 L D Albumin 2.0 L Triglycerides LDL Cholesterol Direct HDL Cholesterol Urine WBC (Auto) Crossmatch 03/01/19 03/01/19 03/01/19 04:45 05:03 05:38 WBC RBC 1.78 L Hgb 5.0 L* Hct 17.4 L* MCHC 29 L RDW 18.3 H Plt Count Seg Neuts % (Manual) 78.0 H Lymphocytes % (Manual) Monocytes % (Manual) Nucleated RBC % 2.0 H Seg Neutrophils # Man Lymphocytes # (Manual) Monocytes # (Manual) PT INR D-Dimer POC ABG pH 6.806 L 6.895 L POC ABG pCO2 POC ABG pO2 54 L 213 H Sodium Potassium Chloride Carbon Dioxide BUN Creatinine Glucose POC Glucose Hemoglobin A1c Lactic Acid Calcium Magnesium Total Bilirubin Direct Bilirubin AST ALT Alkaline Phosphatase Total Creatine Kinase CK-MB (CK-2) Troponin T NT-Pro-B Natriuret Pep Total Protein Albumin Triglycerides LDL Cholesterol Direct HDL Cholesterol Urine WBC (Auto) Crossmatch 03/01/19 03/01/19 03/01/19 05:38 06:03 07:29 WBC RBC Hgb Hct MCHC RDW Plt Count Seg Neuts % (Manual) Lymphocytes % (Manual) Monocytes % (Manual) Nucleated RBC % Seg Neutrophils # Man Lymphocytes # (Manual) Monocytes # (Manual) PT INR D-Dimer POC ABG pH POC ABG pCO2 POC ABG pO2 Sodium Potassium Chloride Carbon Dioxide BUN Creatinine Glucose POC Glucose 310 H Hemoglobin A1c Lactic Acid 23.40 H* 24.70 H* Calcium Magnesium Total Bilirubin Direct Bilirubin AST ALT Alkaline Phosphatase Total Creatine Kinase CK-MB (CK-2) Troponin T NT-Pro-B Natriuret Pep Total Protein Albumin Triglycerides LDL Cholesterol Direct HDL Cholesterol Urine WBC (Auto) Crossmatch 03/01/19 03/01/19 03/01/19 07:30 11:38 12:02 WBC RBC Hgb Hct MCHC RDW Plt Count Seg Neuts % (Manual) Lymphocytes % (Manual) Monocytes % (Manual) Nucleated RBC % Seg Neutrophils # Man Lymphocytes # (Manual) Monocytes # (Manual) PT INR D-Dimer POC ABG pH POC ABG pCO2 POC ABG pO2 Sodium Potassium 6.3 H* Chloride Carbon Dioxide BUN Creatinine Glucose POC Glucose 326 H Hemoglobin A1c Lactic Acid Calcium Magnesium Total Bilirubin Direct Bilirubin AST ALT Alkaline Phosphatase Total Creatine Kinase CK-MB (CK-2) Troponin T NT-Pro-B Natriuret Pep Total Protein Albumin Triglycerides LDL Cholesterol Direct HDL Cholesterol Urine WBC (Auto) Crossmatch See Detail 03/01/19 03/01/19 03/01/19 12:30 17:34 18:26 WBC RBC Hgb Hct MCHC RDW Plt Count Seg Neuts % (Manual) Lymphocytes % (Manual) Monocytes % (Manual) Nucleated RBC % Seg Neutrophils # Man Lymphocytes # (Manual) Monocytes # (Manual) PT INR D-Dimer POC ABG pH 6.960 L 7.101 L POC ABG pCO2 32.7 L POC ABG pO2 117 H 109 H Sodium Potassium Chloride Carbon Dioxide BUN Creatinine Glucose POC Glucose 434 H Hemoglobin A1c Lactic Acid Calcium Magnesium Total Bilirubin Direct Bilirubin AST ALT Alkaline Phosphatase Total Creatine Kinase CK-MB (CK-2) Troponin T NT-Pro-B Natriuret Pep Total Protein Albumin Triglycerides LDL Cholesterol Direct HDL Cholesterol Urine WBC (Auto) Crossmatch 03/01/19 03/01/19 03/01/19 20:24 20:24 21:39 WBC RBC Hgb 8.9 L D Hct 28.2 L D MCHC RDW Plt Count Seg Neuts % (Manual) Lymphocytes % (Manual) Monocytes % (Manual) Nucleated RBC % Seg Neutrophils # Man Lymphocytes # (Manual) Monocytes # (Manual) PT INR D-Dimer POC ABG pH POC ABG pCO2 POC ABG pO2 Sodium Potassium 6.2 H* Chloride Carbon Dioxide BUN Creatinine Glucose POC Glucose > 500 H Hemoglobin A1c Lactic Acid Calcium Magnesium Total Bilirubin Direct Bilirubin AST ALT Alkaline Phosphatase Total Creatine Kinase CK-MB (CK-2) Troponin T NT-Pro-B Natriuret Pep Total Protein Albumin Triglycerides LDL Cholesterol Direct HDL Cholesterol Urine WBC (Auto) Crossmatch 03/01/19 03/02/19 03/02/19 22:45 01:42 04:20 WBC 13.0 H RBC 2.47 L Hgb 7.0 L Hct 22.8 L MCHC RDW 18.4 H Plt Count Seg Neuts % (Manual) 95.0 H Lymphocytes % (Manual) 0 L Monocytes % (Manual) Nucleated RBC % 8.0 H Seg Neutrophils # Man 12.4 H Lymphocytes # (Manual) 0.0 L Monocytes # (Manual) PT INR D-Dimer POC ABG pH POC ABG pCO2 POC ABG pO2 Sodium Potassium 5.9 H Chloride 93.0 L Carbon Dioxide 16 L D BUN 28 H Creatinine 2.8 H Glucose 617 H* POC Glucose > 500 H Hemoglobin A1c Lactic Acid Calcium 6.2 L Magnesium Total Bilirubin Direct Bilirubin AST ALT Alkaline Phosphatase Total Creatine Kinase CK-MB (CK-2) Troponin T NT-Pro-B Natriuret Pep Total Protein Albumin Triglycerides LDL Cholesterol Direct HDL Cholesterol Urine WBC (Auto) Crossmatch 03/02/19 03/02/19 03/02/19 04:20 05:04 05:25 WBC RBC Hgb Hct MCHC RDW Plt Count Seg Neuts % (Manual) Lymphocytes % (Manual) Monocytes % (Manual) Nucleated RBC % Seg Neutrophils # Man Lymphocytes # (Manual) Monocytes # (Manual) PT INR D-Dimer POC ABG pH POC ABG pCO2 33.8 L POC ABG pO2 Sodium 132 L Potassium Chloride 85.5 L Carbon Dioxide 21 L BUN 27 H Creatinine 2.8 H Glucose 928 H* POC Glucose > 500 H Hemoglobin A1c Lactic Acid Calcium 6.1 L Magnesium Total Bilirubin 2.00 H Direct Bilirubin AST 7855 H ALT 2210 H Alkaline Phosphatase 238 H Total Creatine Kinase CK-MB (CK-2) Troponin T 13.790 H* D NT-Pro-B Natriuret Pep Total Protein 4.0 L Albumin 1.7 L Triglycerides LDL Cholesterol Direct HDL Cholesterol Urine WBC (Auto) Crossmatch 03/02/19 03/02/19 03/02/19 09:11 10:10 11:19 WBC RBC Hgb Hct MCHC RDW Plt Count Seg Neuts % (Manual) Lymphocytes % (Manual) Monocytes % (Manual) Nucleated RBC % Seg Neutrophils # Man Lymphocytes # (Manual) Monocytes # (Manual) PT INR D-Dimer POC ABG pH POC ABG pCO2 POC ABG pO2 Sodium Potassium Chloride Carbon Dioxide BUN Creatinine Glucose POC Glucose 494 H > 500 H 413 H Hemoglobin A1c Lactic Acid Calcium Magnesium Total Bilirubin Direct Bilirubin AST ALT Alkaline Phosphatase Total Creatine Kinase CK-MB (CK-2) Troponin T NT-Pro-B Natriuret Pep Total Protein Albumin Triglycerides LDL Cholesterol Direct HDL Cholesterol Urine WBC (Auto) Crossmatch 03/02/19 03/02/19 03/02/19 12:05 13:00 14:00 WBC RBC Hgb Hct MCHC RDW Plt Count Seg Neuts % (Manual) Lymphocytes % (Manual) Monocytes % (Manual) Nucleated RBC % Seg Neutrophils # Man Lymphocytes # (Manual) Monocytes # (Manual) PT INR D-Dimer POC ABG pH POC ABG pCO2 POC ABG pO2 Sodium Potassium Chloride Carbon Dioxide BUN Creatinine Glucose POC Glucose 400 H 391 H 415 H Hemoglobin A1c Lactic Acid Calcium Magnesium Total Bilirubin Direct Bilirubin AST ALT Alkaline Phosphatase Total Creatine Kinase CK-MB (CK-2) Troponin T NT-Pro-B Natriuret Pep Total Protein Albumin Triglycerides LDL Cholesterol Direct HDL Cholesterol Urine WBC (Auto) Crossmatch 03/02/19 03/02/19 03/02/19 15:12 16:14 17:13 WBC RBC Hgb 8.0 L Hct 24.7 L MCHC RDW Plt Count Seg Neuts % (Manual) Lymphocytes % (Manual) Monocytes % (Manual) Nucleated RBC % Seg Neutrophils # Man Lymphocytes # (Manual) Monocytes # (Manual) PT INR D-Dimer POC ABG pH POC ABG pCO2 POC ABG pO2 Sodium Potassium Chloride Carbon Dioxide BUN Creatinine Glucose POC Glucose 405 H 395 H Hemoglobin A1c Lactic Acid Calcium Magnesium Total Bilirubin Direct Bilirubin AST ALT Alkaline Phosphatase Total Creatine Kinase CK-MB (CK-2) Troponin T NT-Pro-B Natriuret Pep Total Protein Albumin Triglycerides LDL Cholesterol Direct HDL Cholesterol Urine WBC (Auto) Crossmatch 03/02/19 03/02/19 03/02/19 17:13 17:16 17:30 WBC RBC Hgb Hct MCHC RDW Plt Count Seg Neuts % (Manual) Lymphocytes % (Manual) Monocytes % (Manual) Nucleated RBC % Seg Neutrophils # Man Lymphocytes # (Manual) Monocytes # (Manual) PT INR D-Dimer POC ABG pH POC ABG pCO2 POC ABG pO2 Sodium Potassium Chloride 94.8 L Carbon Dioxide 21 L BUN 34 H Creatinine 3.2 H Glucose 358 H POC Glucose 357 H Hemoglobin A1c Lactic Acid 7.90 H* Calcium 5.9 L* Magnesium Total Bilirubin Direct Bilirubin AST ALT Alkaline Phosphatase Total Creatine Kinase CK-MB (CK-2) Troponin T NT-Pro-B Natriuret Pep Total Protein Albumin Triglycerides LDL Cholesterol Direct HDL Cholesterol Urine WBC (Auto) Crossmatch 03/02/19 03/02/19 03/02/19 18:12 19:31 20:29 WBC RBC Hgb Hct MCHC RDW Plt Count Seg Neuts % (Manual) Lymphocytes % (Manual) Monocytes % (Manual) Nucleated RBC % Seg Neutrophils # Man Lymphocytes # (Manual) Monocytes # (Manual) PT INR D-Dimer POC ABG pH POC ABG pCO2 POC ABG pO2 Sodium Potassium Chloride Carbon Dioxide BUN Creatinine Glucose POC Glucose 270 H 263 H Hemoglobin A1c Lactic Acid Calcium Magnesium Total Bilirubin Direct Bilirubin AST ALT Alkaline Phosphatase Total Creatine Kinase CK-MB (CK-2) Troponin T NT-Pro-B Natriuret Pep Total Protein Albumin Triglycerides LDL Cholesterol Direct HDL Cholesterol Urine WBC (Auto) 17.0 H Crossmatch 03/02/19 03/02/19 03/02/19 20:37 21:08 21:36 WBC RBC Hgb Hct MCHC RDW Plt Count Seg Neuts % (Manual) Lymphocytes % (Manual) Monocytes % (Manual) Nucleated RBC % Seg Neutrophils # Man Lymphocytes # (Manual) Monocytes # (Manual) PT INR D-Dimer POC ABG pH POC ABG pCO2 POC ABG pO2 Sodium Potassium Chloride Carbon Dioxide BUN Creatinine Glucose POC Glucose 270 H 262 H Hemoglobin A1c Lactic Acid 8.60 H* Calcium Magnesium Total Bilirubin Direct Bilirubin AST ALT Alkaline Phosphatase Total Creatine Kinase CK-MB (CK-2) Troponin T NT-Pro-B Natriuret Pep Total Protein Albumin Triglycerides LDL Cholesterol Direct HDL Cholesterol Urine WBC (Auto) Crossmatch 03/02/19 03/02/19 03/03/19 22:07 23:09 00:02 WBC RBC Hgb Hct MCHC RDW Plt Count Seg Neuts % (Manual) Lymphocytes % (Manual) Monocytes % (Manual) Nucleated RBC % Seg Neutrophils # Man Lymphocytes # (Manual) Monocytes # (Manual) PT INR D-Dimer POC ABG pH POC ABG pCO2 POC ABG pO2 Sodium Potassium Chloride Carbon Dioxide BUN Creatinine Glucose POC Glucose 252 H 230 H 159 H Hemoglobin A1c Lactic Acid Calcium Magnesium Total Bilirubin Direct Bilirubin AST ALT Alkaline Phosphatase Total Creatine Kinase CK-MB (CK-2) Troponin T NT-Pro-B Natriuret Pep Total Protein Albumin Triglycerides LDL Cholesterol Direct HDL Cholesterol Urine WBC (Auto) Crossmatch 03/03/19 03/03/19 03/03/19 00:45 00:45 00:45 WBC RBC Hgb 6.3 L Hct 19.8 L* MCHC RDW Plt Count Seg Neuts % (Manual) Lymphocytes % (Manual) Monocytes % (Manual) Nucleated RBC % Seg Neutrophils # Man Lymphocytes # (Manual) Monocytes # (Manual) PT INR D-Dimer POC ABG pH POC ABG pCO2 POC ABG pO2 Sodium Potassium 2.9 L* D Chloride 110.4 H Carbon Dioxide 16 L BUN 27 H Creatinine 2.7 H Glucose 156 H POC Glucose Hemoglobin A1c Lactic Acid 4.90 H* Calcium 4.6 L* D Magnesium Total Bilirubin Direct Bilirubin AST ALT Alkaline Phosphatase Total Creatine Kinase CK-MB (CK-2) Troponin T NT-Pro-B Natriuret Pep Total Protein Albumin Triglycerides LDL Cholesterol Direct HDL Cholesterol Urine WBC (Auto) Crossmatch 03/03/19 03/03/19 03/03/19 01:10 02:04 03:07 WBC RBC Hgb Hct MCHC RDW Plt Count Seg Neuts % (Manual) Lymphocytes % (Manual) Monocytes % (Manual) Nucleated RBC % Seg Neutrophils # Man Lymphocytes # (Manual) Monocytes # (Manual) PT INR D-Dimer POC ABG pH POC ABG pCO2 POC ABG pO2 Sodium Potassium Chloride Carbon Dioxide BUN Creatinine Glucose POC Glucose 189 H 214 H 160 H Hemoglobin A1c Lactic Acid Calcium Magnesium Total Bilirubin Direct Bilirubin AST ALT Alkaline Phosphatase Total Creatine Kinase CK-MB (CK-2) Troponin T NT-Pro-B Natriuret Pep Total Protein Albumin Triglycerides LDL Cholesterol Direct HDL Cholesterol Urine WBC (Auto) Crossmatch 03/03/19 03/03/19 03/03/19 04:10 04:52 05:20 WBC RBC Hgb Hct MCHC RDW Plt Count Seg Neuts % (Manual) Lymphocytes % (Manual) Monocytes % (Manual) Nucleated RBC % Seg Neutrophils # Man Lymphocytes # (Manual) Monocytes # (Manual) PT INR D-Dimer POC ABG pH POC ABG pCO2 34.7 L POC ABG pO2 51 L Sodium Potassium Chloride Carbon Dioxide BUN Creatinine Glucose POC Glucose 142 H 142 H Hemoglobin A1c Lactic Acid Calcium Magnesium Total Bilirubin Direct Bilirubin AST ALT Alkaline Phosphatase Total Creatine Kinase CK-MB (CK-2) Troponin T NT-Pro-B Natriuret Pep Total Protein Albumin Triglycerides LDL Cholesterol Direct HDL Cholesterol Urine WBC (Auto) Crossmatch 03/03/19 03/03/19 03/03/19 06:06 06:50 08:01 WBC RBC Hgb Hct MCHC RDW Plt Count Seg Neuts % (Manual) Lymphocytes % (Manual) Monocytes % (Manual) Nucleated RBC % Seg Neutrophils # Man Lymphocytes # (Manual) Monocytes # (Manual) PT INR D-Dimer POC ABG pH POC ABG pCO2 POC ABG pO2 Sodium Potassium Chloride Carbon Dioxide BUN Creatinine Glucose POC Glucose 127 H 131 H 137 H Hemoglobin A1c Lactic Acid Calcium Magnesium Total Bilirubin Direct Bilirubin AST ALT Alkaline Phosphatase Total Creatine Kinase CK-MB (CK-2) Troponin T NT-Pro-B Natriuret Pep Total Protein Albumin Triglycerides LDL Cholesterol Direct HDL Cholesterol Urine WBC (Auto) Crossmatch 03/03/19 03/03/19 03/03/19 08:30 08:30 08:30 WBC 14.0 H RBC 3.52 L Hgb 9.9 L D Hct 29.8 L D MCHC RDW 16.6 H Plt Count Seg Neuts % (Manual) 92.0 H Lymphocytes % (Manual) 5.0 L Monocytes % (Manual) Nucleated RBC % 13.0 H Seg Neutrophils # Man 0.0 L Lymphocytes # (Manual) 0.0 L Monocytes # (Manual) PT INR D-Dimer POC ABG pH POC ABG pCO2 POC ABG pO2 Sodium Potassium 5.3 H D Chloride Carbon Dioxide BUN 38 H Creatinine 4.0 H Glucose 135 H POC Glucose Hemoglobin A1c Lactic Acid 4.00 H* Calcium 6.8 L D Magnesium 1.60 L Total Bilirubin 1.30 H Direct Bilirubin AST 4012 H ALT 1793 H Alkaline Phosphatase 259 H Total Creatine Kinase CK-MB (CK-2) Troponin T NT-Pro-B Natriuret Pep Total Protein 4.6 L Albumin 2.0 L Triglycerides LDL Cholesterol Direct HDL Cholesterol Urine WBC (Auto) Crossmatch 03/03/19 03/03/19 03/03/19 09:03 10:17 11:15 WBC RBC Hgb Hct MCHC RDW Plt Count Seg Neuts % (Manual) Lymphocytes % (Manual) Monocytes % (Manual) Nucleated RBC % Seg Neutrophils # Man Lymphocytes # (Manual) Monocytes # (Manual) PT INR D-Dimer POC ABG pH POC ABG pCO2 POC ABG pO2 Sodium Potassium Chloride Carbon Dioxide BUN Creatinine Glucose POC Glucose 108 H 113 H 126 H Hemoglobin A1c Lactic Acid Calcium Magnesium Total Bilirubin Direct Bilirubin AST ALT Alkaline Phosphatase Total Creatine Kinase CK-MB (CK-2) Troponin T NT-Pro-B Natriuret Pep Total Protein Albumin Triglycerides LDL Cholesterol Direct HDL Cholesterol Urine WBC (Auto) Crossmatch
[2019-03-03 14:06] LABS: Fibrinogen 333 mg/dl (211-480)
--- NOTE | 2019-03-03 14:27 | Progress Note ---
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 CT head; no acute findings CXR no acute findings Labs; UA > 182 WBC Micro; urine and blood growing ecoli sens to current abx Diagnosis sepsis, ecoli Bactermia and Ecoli UTI PNA? Acute hypoxic respiratory failure anemia, likely due to chronic disease and critical illness HHNK, Type 2 DM, A1c 9 Hyponatremia, likely pseudohyponatremia of hyperglycemia Hyperkalemia GERALDINE- likely ATN Hypomagesemia- resolved PAD hx of RLE ischemia, sp thrombolysis, revascularization and fascitomy dry gangrene, R second toe Rhabdomylsis, non traumatic acute metabolic encephalopathy Fluid overload Acute cva NJ Anoxic encephalopathy Acute kidney injury due to ATN Shock liver/transaminitis Distributive shock Plan * UTI/bacteremia; The patient had sepsis due to Escherichia coli bacteremia and Escherichia coli UTI. She completed a course of antibiotics for that on 02/20 * The patient had some necrotic tissue on her right leg, she was seen by vascular surgery, status post debridement of right leg on 02/20, necrotic tissue was removed. 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 Imaging showed infiltrates, she received Lasix after which infiltrate completely resolved. Therefore it was due to vascular congestion, pneumonia was at that time ruled out. VQ scan and lower extremity Dopplers were negative which at that time excluded VTE. Her respiratory status was improving, she was being weaned off oxygen. Echo showed preserved EF * She initially presented with severe hyperglycemia, she was treated with insulin and IV fluids, she was put on bolus and basal insulin and her sugars improved * She had hypomagnesemia, and if her magnesium was repleted. She also had elevated potassium for which she received single dose of Kayexalate on 02/17 * The patient was improving and was planned for rehabilitation placement, but unfortunately she had a decline * received multiple units of pr she had anemia, bc, first unit on 02/18, then had another drop in hct after code blue on 03/01 after which she got another 3 units, ; seen by GI, they did not suspect acute GI bleed. * 02/28, she developed chest pain or shortness of breath, put on anticoagulation, was being seen by cardiology for possible NJ, as PE was again suspected, anticoagulation was later discontinued due to anemia * 03/01, she became pulseless, RO[facility] was called, she received CPR, had ROSC was then intubated and sedated, but per her family was only moving her right side at that time, she was on pressors and was too unstable to go to CT scan * 03/02, the patient was more stable, therefore she was taking for CT scan which confirmed subacute cerebral stroke, at this time the patient was now completely obtunded, not responsive to painful stimuli, and only had a gag reflex, fixed pupils and absence of most reflexes. Stroke protocol place, neurology consult placed. Patient already on aspirin, unable to tolerate statins due to markedly elevated LFTs, this is most likely due to shock liver, the patient remains pressor dependent * 03/03, the patient now has no reflexes, no gag reflex, no corneal reflex. Prognosis is very poor at this time, family meeting planned for tomorrow. Nuclear medicine brain flow scan ordered. Prognosis for recovery is poor, will plan family meeting tomorrow CCT 33 minutes History Interval history: The patient is obtunded, intubated, not on sedation No vomiting, no seizures, no agitation. Patient has been nonresponsive Hospitalist Physical - Physical exam Narrative exam: General.: Obtunded, appears ill HEENT: Corneal edema noted Neck: supple Cardiac: S1-S2 heard Lungs: Ventilated breath sounds Abdomen: soft , nontender, nondistended, bowel sounds positive Extremities: Bilateral lower extremity bandages noted, bandages to right lower extremity when not removed on my exam Skin: no rash or lesions Neurologic: The patient does not open her eyes, does not move any extremities, does not respond to painful stimuli, she lacks any brainstem reflexes, gag reflex absence - Constitutional Vitals: Temp Pulse Resp BP Pulse Ox 98.6 F 89 20 88/52 99 03/03/19 12:00 03/03/19 14:00 03/03/19 14:00 03/03/19 14:03/03/19 13:45 General appearance: Present: other (intubated, nonresponsive, off sedation ) Results - Labs CBC & Chem 7: 03/03/19 08:30 03/03/19 08:30 Labs: Laboratory Last Values WBC 14.0 K/mm3 (4.5-11.0) H 03/03/19 08:30 RBC 3.52 M/mm3 (3.65-5.03) L 03/03/19 08:30 Hgb 9.9 gm/dl (10.1-14.3) L D 03/03/19 08:30 Hct 29.8 % (30.3-42.9) L D 03/03/19 08:30 MCV 85 fl (79-97) 03/03/19 08:30 MCH 28 pg (28-32) 03/03/19 08:30 MCHC 33 % (30-34) 03/03/19 08:30 RDW 16.6 % (13.2-15.2) H 03/03/19 08:30 Plt Count 155 K/mm3 (140-440) 03/03/19 08:30 Lymph % (Auto) Balance Truing Inspector 02/17/19 10:41 [place] % (Auto) Balance Truing Inspector 02/17/19 10:41 Eos % (Auto) Balance Truing Inspector 02/17/19 10:41 Baso % (Auto) Balance Truing Inspector 02/17/19 10:41 Lymph # Balance Truing Inspector 02/17/19 10:41 [place] # Balance Truing Inspector 02/17/19 10:41 Eos # Balance Truing Inspector 02/17/19 10:41 Baso # Balance Truing Inspector 02/17/19 10:41 Add Manual Diff Complete 03/03/19 08:30 Total Counted 100 03/03/19 08:30 Seg Neutrophils % Balance Truing Inspector 02/17/19 10:41 Seg Neuts % (Manual) 92.0 % (40.0-70.0) H 03/03/19 08:30 Band Neutrophils % 0 % 03/03/19 08:30 Lymphocytes % (Manual) 5.0 % (13.4-35.0) L 03/03/19 08:30 Reactive Lymphs % (Man) 0 % 03/03/19 08:30 Monocytes % (Manual) 1.0 % (0.0-7.3) 03/03/19 08:30 Eosinophils % (Manual) 0 % (0.0-4.3) 03/03/19 08:30 Basophils % (Manual) 0 % (0.0-1.8) 03/03/19 08:30 Metamyelocytes % 1.0 % 03/03/19 08:30 Myelocytes % 1.0 % 03/03/19 08:30 Promyelocytes % 0 % 03/03/19 08:30 Blast Cells % 0 % 03/03/19 08:30 Nucleated RBC % 13.0 % (0.0-0.9) H 03/03/19 08:30 Seg Neutrophils # Balance Truing Inspector 02/17/19 10:41 Seg Neutrophils # Man 0.0 K/mm3 (1.8-7.7) L 03/03/19 08:30 Band Neutrophils # 0.0 K/mm3 03/03/19 08:30 Lymphocytes # (Manual) 0.0 K/mm3 (1.2-5.4) L 03/03/19 08:30 Abs React Lymphs (Man) 0.0 K/mm3 03/03/19 08:30 Monocytes # (Manual) 0.0 K/mm3 (0.0-0.8) 03/03/19 08:30 Eosinophils # (Manual) 0.0 K/mm3 (0.0-0.4) 03/03/19 08:30 Basophils # (Manual) 0.0 K/mm3 (0.0-0.1) 03/03/19 08:30 Metamyelocytes # 0.0 K/mm3 03/03/19 08:30 Myelocytes # 0.0 K/mm3 03/03/19 08:30 Promyelocytes # 0.0 K/mm3 03/03/19 08:30 Blast Cells # 0.0 K/mm3 03/03/19 08:30 WBC Morphology Not Reportable 03/03/19 08:30 Hypersegmented Neuts Not Reportable 03/03/19 08:30 Hyposegmented Neuts Not Reportable 03/03/19 08:30 Hypogranular Neuts Not Reportable 03/03/19 08:30 Smudge Cells Not Reportable 03/03/19 08:30 Toxic Granulation Not Reportable 03/03/19 08:30 Toxic Vacuolation Not Reportable 03/03/19 08:30 Dohle Bodies Not Reportable 03/03/19 08:30 Pelger-Huet Anomaly Not Reportable 03/03/19 08:30 Cisco Rods Not Reportable 03/03/19 08:30 Platelet Estimate Consistent w auto 03/03/19 08:30 Clumped Platelets Not Reportable 03/03/19 08:30 Plt Clumps, EDTA Not Reportable 03/03/19 08:30 Large Platelets Few 03/03/19 08:30 Giant Platelets Not Reportable 03/03/19 08:30 Platelet Satelliting Not Reportable 03/03/19 08:30 Plt Morphology Comment Not Reportable 03/03/19 08:30 RBC Morphology Not Reportable 03/03/19 08:30 Dimorphic RBCs Not Reportable 03/03/19 08:30 Polychromasia Not Reportable 03/03/19 08:30 Hypochromasia Not Reportable 03/03/19 08:30 Poikilocytosis Not Reportable 03/03/19 08:30 Anisocytosis 1+ 03/03/19 08:30 Microcytosis Not Reportable 03/03/19 08:30 Macrocytosis Not Reportable 03/03/19 08:30 Spherocytes Not Reportable 03/03/19 08:30 Pappenheimer Bodies Not Reportable 03/03/19 08:30 Sickle Cells Not Reportable 03/03/19 08:30 Target Cells Not Reportable 03/03/19 08:30 Tear Drop Cells Not Reportable 03/03/19 08:30 Ovalocytes Not Reportable 03/03/19 08:30 Helmet Cells Not Reportable 03/03/19 08:30 Starkey-Oelrichs Bodies Not Reportable 03/03/19 08:30 [place] Rings Not Reportable 03/03/19 08:30 Rowley Cells Not Reportable 03/03/19 08:30 Bite Cells Not Reportable 03/03/19 08:30 Crenated Cell Not Reportable 03/03/19 08:30 Elliptocytes Not Reportable 03/03/19 08:30 Acanthocytes (Spur) Not Reportable 03/03/19 08:30 Rouleaux Not Reportable 03/03/19 08:30 Hemoglobin C Crystals Not Reportable 03/03/19 08:30 Schistocytes Not Reportable 03/03/19 08:30 Malaria parasites Not Reportable 03/03/19 08:30 Augusto Bodies Not Reportable 03/03/19 08:30 Hem Pathologist Commnt No 03/03/19 08:30 PT 15.5 Sec. (12.2-14.9) H 02/28/19 18:33 INR 1.16 (0.87-1.13) H 02/28/19 18:33 APTT 29.5 Sec. (24.2-36.6) 02/28/19 18:33 Fibrinogen 333 mg/dl (211-480) 03/03/19 13:38 D-Dimer 1481.17 ng/mlDDU (0-234) H 02/22/19 08:26 Heparin Anti-Xa Level 0.42 U.I./ml (0.3-0.7) 03/01/19 00:48 POC ABG pH 7.437 (7.35-7.45) 03/03/19 04:52 POC ABG pCO2 34.7 (35-45) L 03/03/19 04:52 POC ABG pO2 51 (80-105) L 03/03/19 04:52 POC ABG HCO3 23.4 (22-26 mml/L) 03/03/19 04:52 POC ABG Total CO2 24 (23-27mmol/L) 03/03/19 04:52 POC ABG O2 Sat 87 03/03/19 04:52 POC ABG Base Excess -1 ((-2) - (+3)mmol/L) 03/03/19 04:52 VBG pH 7.379 (7.320-7.420) 02/13/19 14:08 FiO2 50 % 03/03/19 04:52 Sodium 142 mmol/L (137-145) 03/03/19 08:30 Potassium 5.3 mmol/L (3.6-5.0) H D 03/03/19 08:30 Chloride 101.0 mmol/L (98-107) 03/03/19 08:30 Carbon Dioxide 24 mmol/L (22-30) D 03/03/19 08:30 Anion Gap 22 mmol/L 03/03/19 08:30 BUN 38 mg/dL (7-17) H 03/03/19 08:30 Creatinine 4.0 mg/dL (0.7-1.2) H 03/03/19 08:30 Estimated GFR 14 ml/min 03/03/19 08:30 BUN/Creatinine Ratio 10 % 03/03/19 08:30 Glucose 135 mg/dL (65-100) H 03/03/19 08:30 POC Glucose 126 (70-105) H 03/03/19 11:15 Hemoglobin A1c 9.2 % (4-6) H 02/13/19 18:15 Ketones Quantitative Negative (Negative) 02/13/19 14:08 Lactic Acid 4.00 mmol/L (0.7-2.0) H* 03/03/19 08:30 Calcium 6.8 mg/dL (8.4-10.2) L D 03/03/19 08:30 Phosphorus 4.50 mg/dL (2.5-4.5) 03/03/19 08:30 Magnesium 1.60 mg/dL (1.7-2.3) L 03/03/19 08:30 Total Bilirubin 1.30 mg/dL (0.1-1.2) H 03/03/19 08:30 Direct Bilirubin 1.1 mg/dL (0-0.2) H 02/13/19 14:08 Indirect Bilirubin 0.4 mg/dL 02/13/19 14:08 AST 4012 units/L (5-40) H 03/03/19 08:30 ALT 1793 units/L (7-56) H 03/03/19 08:30 Alkaline Phosphatase 259 units/L (35-129) H 03/03/19 08:30 Ammonia 40.0 umol/L (25-60) 02/13/19 14:15 Total Creatine Kinase 165 units/L (30-135) H 02/28/19 18:33 CK-MB (CK-2) 4.9 ng/mL (0.0-4.0) H 02/28/19 18:33 CK-MB (CK-2) Rel Index 2.9 (0-4) 02/28/19 18:33 Troponin T 13.790 ng/mL (0.00-0.029) H* D 03/02/19 04:20 NT-Pro-B Natriuret Pep 6167 pg/mL (0-900) H 02/13/19 14:15 Total Protein 4.6 g/dL (6.3-8.2) L 03/03/19 08:30 Albumin 2.0 g/dL (3.9-5) L 03/03/19 08:30 Albumin/Globulin Ratio 0.8 % 03/03/19 08:30 Triglycerides 329 mg/dL (2-149) H 02/13/19 14:20 Cholesterol 159 mg/dL (50-199) 02/13/19 14:20 LDL Cholesterol Direct 36 mg/dL (50-130) L 02/13/19 14:20 HDL Cholesterol 17 mg/dL (40-59) L 02/13/19 14:20 Cholesterol/HDL Ratio 9.35 % 02/13/19 14:20 Amylase 34 units/L (27-131) 03/01/19 00:48 Urine Color Steffi (Yellow) 03/02/19 20:29 Urine Turbidity Slightly-cloudy (Clear) 03/02/19 20:29 Urine pH 6.0 (5.0-7.0) 03/02/19 20:29 Ur Specific Julian 1.011 (1.003-1.030) 03/02/19 20:29 Urine Protein 100 mg/dl mg/dL (Negative) 03/02/19 20:29 Urine Glucose (UA) 50 mg/dL (Negative) 03/02/19 20:29 Urine Ketones Neg mg/dL (Negative) 03/02/19 20:29 Urine Blood Lg (Negative) 03/02/19 20:29 Urine Nitrite Neg (Negative) 03/02/19 20:29 Urine Bilirubin Neg (Negative) 03/02/19 20:29 Urine Urobilinogen < 2.0 mg/dL (<2.0) 03/02/19 20:29 Ur Leukocyte Esterase Mod (Negative) 03/02/19 20:29 Urine WBC (Auto) 17.0 /HPF (0.0-6.0) H 03/02/19 20:29 Urine RBC (Auto) 29.0 /HPF (0.0-6.0) 03/02/19 20:29 U Epithel Cells (Auto) 1.0 /HPF (0-13.0) 02/14/19 09:07 Urine Bacteria (Auto) 2+ /HPF (Negative) 03/02/19 20:29 Urine WBC Clumps 3+ /HPF 02/14/19 09:07 Ur Transition Epith Cell 1 /HPF 02/14/19 09:07 Urine Mucus Few /HPF 02/14/19 09:07 Urine Yeast (Budding) 3+ /HPF 03/02/19 20:29 Urine Eosinophils None seen (None Seen) 03/01/19 06:50 Vancomycin Trough 14.5 ug/mL (5.0-20.0) 02/15/19 05:32 Urine Opiates Screen Presumptive negative 02/14/19 09:07 Urine Methadone Screen Presumptive negative 02/14/19 09:07 Ur Barbiturates Screen Presumptive negative 02/14/19 09:07 Ur Phencyclidine Scrn Presumptive negative 02/14/19 09:07 Ur Amphetamines Screen Presumptive negative 02/14/19 09:07 U Benzodiazepines Scrn Presumptive negative 02/14/19 09:07 Urine Cocaine Screen Presumptive negative 02/14/19 09:07 U Marijuana (THC) Screen Presumptive negative 02/14/19 09:07 Drugs of Abuse Note Disclamer 02/14/19 09:07 Blood Type B POSITIVE 03/01/19 07:30 Antibody Screen Negative 03/01/19 07:30 Crossmatch See Detail 03/01/19 07:30 Active Medications - Current Medications Current Medications: Generic Name Dose Route Start Last Admin Trade Name Freq PRN Reason Stop Dose Admin Acetaminophen 650 mg 02/13/19 18:03 Tylenol PO Q4H PRN Pain MILD(1-3)/Fever >100.5/MARTÍNEZ Albuterol 2.5 mg 02/22/19 04:53 02/28/19 16:08 Proventil IH 2.5 mg Q6HRT PRN Administration Shortness Of Breath Albuterol/Ipratropium 1 ampul 02/28/19 16:45 03/03/19 07:03 Duoneb *Not For Prn Use* IH 1 ampul Q6HRT RAFAEL Administration Aspirin 325 mg 02/28/19 19:00 03/03/19 09:37 Aspirin PO 325 mg QDAY RAFAEL Administration Dextrose 50 ml 03/02/19 08:04 D50w (25gm) Syringe IV PRN PRN Hypoglycemia Fentanyl 50 mcg 02/28/19 21:01 Sublimaze IV Q10MIN PRN ANALGESIA Furosemide 80 mg 03/03/19 10:00 03/03/19 09:37 Lasix IV 80 mg 0600,1800 RAFAEL Administration Hydralazine HCl 10 mg 03/02/19 15:28 Apresoline IV Q4HR PRN BP >180/110 Hydrophilic Ointment 1 applic 02/28/19 21:29 Vaseline Lip Therapy TP Q2HR PRN Dry Lips Fentanyl Citrate 2,000 mcg in 100 mls @ 5.665 mls/hr 02/28/19 22:00 03/01/19 00:46 Fentanyl Drip Premix IV 0 mcg/kg/hr TITR RAFAEL 0 mls/hr Titration Protocol 1 MCG/KG/HR Norepinephrine 4 mg in 250 mls @ 7.5 mls/hr 03/01/19 03:00 03/03/19 13:44 Levophed Drip 4 Mg/Ns 250 Ml IV 8 mcg/min TITR RAFAEL 30 mls/hr Administration Protocol 2 MCG/MIN Dopamine HCl/Dextrose 800 mg in 250 mls @ 4.249 mls/hr 03/01/19 01:35 03/02/19 00:13 Intropin Drip 800 Mg/D5w 250 Ml IV 0 mcg/kg/min TITR RAFAEL 0 mls/hr Titration Protocol 2 MCG/KG/MIN Cefepime HCl 2 gm in 100 mls @ 200 mls/hr 03/01/19 20:00 03/03/19 09:37 Maxipime/Ns 2 Gm/100 Ml IV 200 mls/hr Q24HR RAFAEL Administration Protocol Sodium Chloride 1,000 mls @ 42 mls/hr 03/02/19 10:00 Nacl 0.9% 1000 Ml IV DIRECT [facility] Insulin Glargine 5 units 03/03/19 11:00 03/03/19 11:07 Lantus SUB-Q 5 units DAILY RAFAEL Administration Insulin Human Lispro 0 unit 03/03/19 12:00 03/03/19 11:38 Humalog SUB-Q Not Given Q4H [facility] Protocol Multi-Ingred Cream/Lotion/Oil/Oint 1 applic 03/03/19 10:39 03/03/19 11:07 Artificial Tears Ophth Oint OU 1 applic PRN PRN Administration Dry Eye(s) Ondansetron HCl 4 mg 02/13/19 18:03 Zofran IV Q8H PRN Nausea And Vomiting Pantoprazole Sodium 40 mg 03/02/19 22:00 03/03/19 09:37 Protonix IV 40 mg BID RAFAEL Administration Sodium Chloride 10 ml 02/13/19 22:00 03/03/19 09:37 Sodium Chloride Flush Syringe 10 Ml IV 10 ml BID RAFAEL Administration Sodium Chloride 10 ml 02/13/19 18:03 Sodium Chloride Flush Syringe 10 Ml IV PRN PRN LINE FLUSH Nutrition/Malnutrition Assess - Dietary Evaluation Nutrition/Malnutrition Findings: Nutrition Notes Start: 02/19/19 14:33 Freq: Status: Active Protocol: Document 02/19/19 14:34 RM (Rec: 02/19/19 14:34 RM [id number]) Nutrition Notes Need for Assessment generated from: LOS Initial or Follow up Brief Note Height 5 ft 3 in Weight 110.03 kg [place] Body Weight (kg) 52.27 BMI 43.0 Subjective/Other Information Screened for LOS. PO intake 85% X 2 days. Nutrition Intervention Revisit per MD consult or patient Sign Off request:
--- NOTE | 2019-03-03 16:21 | XRay Report ---
PROCEDURE: XR CHEST 1V AP TECHNIQUE: Chest single AP HISTORY: laft arm PICC placement COMPARISONS: Correlated with the prior exam of March 03, 2019 FINDINGS: There is been placement of a left PICC line catheter tip at the cavoatrial junction. ET tube and NG t ube remain in satisfactory position. No evidence for pneumothorax. Cardiac and mediastinal contours a re unchanged. No confluent pulmonary infiltrate identified. IMPRESSION: Left PICC line, ET and NG tubes in satisfactory position. No acute interval change. This document is electronically signed by Ramsey Reeder MD., March 03 2019 04:20:08 PM ET
[2019-03-03] MEDS ORDERED: TRIPLE ANTIBIOTIC TP ONE (16:44)
[2019-03-03] MEDS: NACL 0.9% 1000 ML 1,000 ML IV SCH (17:16)
--- NOTE | 2019-03-03 17:52 | Progress Note ---
Assessment and Plan Cultures: 02/13/2019 blood culture: E. coli, 4 out of 4 bottles 02/14/2019 urine culture: E. coli 02/16/2019 Blood culture: no growth 02/22/2019 Blood culture: no growth 03/01/2019 Blood culture: no growth 03/01/2019 urine culture: no significant growth 03/02/2019 tracheal aspirate: normal resp juan A/P: 58-year-old female with hypertension, diabetes mellitus type 2, peripheral vascular disease who was recently hospitalized from vascular surgery clinic due to right second toe gangrene. She underwent thrombolysis of the right lower extremity and underwent a stent placement. She developed compartment syndrome requiring fasciotomy on 01/29/2019 and then was discharged to a rehabilitation facility, admitted with: 1) Cardiac arrest and shock with new CVA: severe lactic acidosis, anemia. Etiology septic v/s cardiogenic. Critically ill, on pressors, ventilator. Also with bilateral pneumonia, probably from aspiration following arrest. 2) E.coli bacteremia: urinary source. Completed antibiotics (Cefazolin) several days ago with repeat cultures negative. 3) UTI: U/a shows Pyuria, WBC > 182 with large LE. Urine culture grew E.coli. Completed abx. 4) Acute kidney failure: Urine output low. Critically ill. Creatinine rising. 5) Peripheral vascular disease: Vascular surgery following. Right second toe ischemia and gangrene. 6) Diabetes mellitus type 2, uncontrolled. 7) Shock liver Recs: continue IV Cefepime (renally adjusted) will discontinue Vancomycin. prognosis is poor Gaurav Cornelius MD [facility] C: [phone] O: [phone] F: [phone] Subjective Date of service: 03/03/19 Principal diagnosis: anemia Interval history: No fever. Remains unresponsive, on vent. Remains on pressors. Objective - Exam Narrative Exam: Physical Exam: Constitutional: intubated, unresponsive Head, Ears, Nose: Normocephalic, atraumatic. External ears, nose normal Eyes: Conjunctivae/corneas clear. No icterus. No ptosis. Neck: Supple, no meningeal signs Oral: intubated Cardiovascular: S1, S2 normal. Respiratory: Good air entry, clear to auscultation bilaterally GI: bowel sounds hypoactive. No peritoneal signs Musculoskeletal: Right second toe with blackish discoloration, right calf with dressing Skin: No rash or abscess Hem/Lymphatic: No palpable cervical or supraclavicular nodes. No lymphangitis Psych: no agitation Neurological: intubated, on vent, unresponsive - Constitutional Vitals: Vital Signs Temp Pulse Resp BP Pulse Ox 98.3 F 96 H 20 101/62 100 03/03/19 15:54 03/03/19 17:15 03/03/19 17:15 03/03/19 17:15 03/03/19 17:15 Temperature -Last 24 Hours Temperature 98.3 F Temperature 98.6 F Temperature 98.2 F Temperature 97.7 F Temperature 97.7 F Temperature 97.7 F Temperature 97.8 F Temperature 97.6 F Temperature 95.2 F Temperature 97.5 F Temperature 97.5 F - Labs CBC & Chem 7: 03/03/19 08:30 03/03/19 08:30 Labs: Abnormal lab results 03/01/19 03/02/19 03/02/19 Range/Units 07:30 17:13 17:13 WBC (4.5-11.0) K/mm3 RBC (3.65-5.03) M/mm3 Hgb 8.0 L (10.1-14.3) gm/dl Hct 24.7 L (30.3-42.9) % RDW (13.2-15.2) % Seg Neuts % (Manual) (40.0-70.0) % Lymphocytes % (Manual) (13.4-35.0) % Nucleated RBC % (0.0-0.9) % Seg Neutrophils # Man (1.8-7.7) K/mm3 Lymphocytes # (Manual) (1.2-5.4) K/mm3 D-Dimer (0-234) ng/mlDDU POC ABG pCO2 (35-45) POC ABG pO2 (80-105) Potassium (3.6-5.0) mmol/L Chloride 94.8 L (98-107) mmol/L Carbon Dioxide 21 L (22-30) mmol/L BUN 34 H (7-17) mg/dL Creatinine 3.2 H (0.7-1.2) mg/dL Glucose 358 H (65-100) mg/dL POC Glucose (70-105) Lactic Acid (0.7-2.0) mmol/L Calcium 5.9 L* (8.4-10.2) mg/dL Magnesium (1.7-2.3) mg/dL Total Bilirubin (0.1-1.2) mg/dL AST (5-40) units/L ALT (7-56) units/L Alkaline Phosphatase (35-129) units/L Total Protein (6.3-8.2) g/dL Albumin (3.9-5) g/dL Urine WBC (Auto) (0.0-6.0) /HPF Crossmatch See Detail 03/02/19 03/02/19 03/02/19 Range/Units 17:30 18:12 19:31 WBC (4.5-11.0) K/mm3 RBC (3.65-5.03) M/mm3 Hgb (10.1-14.3) gm/dl Hct (30.3-42.9) % RDW (13.2-15.2) % Seg Neuts % (Manual) (40.0-70.0) % Lymphocytes % (Manual) (13.4-35.0) % Nucleated RBC % (0.0-0.9) % Seg Neutrophils # Man (1.8-7.7) K/mm3 Lymphocytes # (Manual) (1.2-5.4) K/mm3 D-Dimer (0-234) ng/mlDDU POC ABG pCO2 (35-45) POC ABG pO2 (80-105) Potassium (3.6-5.0) mmol/L Chloride (98-107) mmol/L Carbon Dioxide (22-30) mmol/L BUN (7-17) mg/dL Creatinine (0.7-1.2) mg/dL Glucose (65-100) mg/dL POC Glucose 270 H 263 H (70-105) Lactic Acid 7.90 H* (0.7-2.0) mmol/L Calcium (8.4-10.2) mg/dL Magnesium (1.7-2.3) mg/dL Total Bilirubin (0.1-1.2) mg/dL AST (5-40) units/L ALT (7-56) units/L Alkaline Phosphatase (35-129) units/L Total Protein (6.3-8.2) g/dL Albumin (3.9-5) g/dL Urine WBC (Auto) (0.0-6.0) /HPF Crossmatch 03/02/19 03/02/19 03/02/19 Range/Units 20:29 20:37 21:08 WBC (4.5-11.0) K/mm3 RBC (3.65-5.03) M/mm3 Hgb (10.1-14.3) gm/dl Hct (30.3-42.9) % RDW (13.2-15.2) % Seg Neuts % (Manual) (40.0-70.0) % Lymphocytes % (Manual) (13.4-35.0) % Nucleated RBC % (0.0-0.9) % Seg Neutrophils # Man (1.8-7.7) K/mm3 Lymphocytes # (Manual) (1.2-5.4) K/mm3 D-Dimer (0-234) ng/mlDDU POC ABG pCO2 (35-45) POC ABG pO2 (80-105) Potassium (3.6-5.0) mmol/L Chloride (98-107) mmol/L Carbon Dioxide (22-30) mmol/L BUN (7-17) mg/dL Creatinine (0.7-1.2) mg/dL Glucose (65-100) mg/dL POC Glucose 270 H (70-105) Lactic Acid 8.60 H* (0.7-2.0) mmol/L Calcium (8.4-10.2) mg/dL Magnesium (1.7-2.3) mg/dL Total Bilirubin (0.1-1.2) mg/dL AST (5-40) units/L ALT (7-56) units/L Alkaline Phosphatase (35-129) units/L Total Protein (6.3-8.2) g/dL Albumin (3.9-5) g/dL Urine WBC (Auto) 17.0 H (0.0-6.0) /HPF Crossmatch 03/02/19 03/02/19 03/02/19 Range/Units 21:36 22:07 23:09 WBC (4.5-11.0) K/mm3 RBC (3.65-5.03) M/mm3 Hgb (10.1-14.3) gm/dl Hct (30.3-42.9) % RDW (13.2-15.2) % Seg Neuts % (Manual) (40.0-70.0) % Lymphocytes % (Manual) (13.4-35.0) % Nucleated RBC % (0.0-0.9) % Seg Neutrophils # Man (1.8-7.7) K/mm3 Lymphocytes # (Manual) (1.2-5.4) K/mm3 D-Dimer (0-234) ng/mlDDU POC ABG pCO2 (35-45) POC ABG pO2 (80-105) Potassium (3.6-5.0) mmol/L Chloride (98-107) mmol/L Carbon Dioxide (22-30) mmol/L BUN (7-17) mg/dL Creatinine (0.7-1.2) mg/dL Glucose (65-100) mg/dL POC Glucose 262 H 252 H 230 H (70-105) Lactic Acid (0.7-2.0) mmol/L Calcium (8.4-10.2) mg/dL Magnesium (1.7-2.3) mg/dL Total Bilirubin (0.1-1.2) mg/dL AST (5-40) units/L ALT (7-56) units/L Alkaline Phosphatase (35-129) units/L Total Protein (6.3-8.2) g/dL Albumin (3.9-5) g/dL Urine WBC (Auto) (0.0-6.0) /HPF Crossmatch 03/03/19 03/03/19 03/03/19 Range/Units 00:02 00:45 00:45 WBC (4.5-11.0) K/mm3 RBC (3.65-5.03) M/mm3 Hgb 6.3 L (10.1-14.3) gm/dl Hct 19.8 L* (30.3-42.9) % RDW (13.2-15.2) % Seg Neuts % (Manual) (40.0-70.0) % Lymphocytes % (Manual) (13.4-35.0) % Nucleated RBC % (0.0-0.9) % Seg Neutrophils # Man (1.8-7.7) K/mm3 Lymphocytes # (Manual) (1.2-5.4) K/mm3 D-Dimer (0-234) ng/mlDDU POC ABG pCO2 (35-45) POC ABG pO2 (80-105) Potassium (3.6-5.0) mmol/L Chloride (98-107) mmol/L Carbon Dioxide (22-30) mmol/L BUN (7-17) mg/dL Creatinine (0.7-1.2) mg/dL Glucose (65-100) mg/dL POC Glucose 159 H (70-105) Lactic Acid 4.90 H* (0.7-2.0) mmol/L Calcium (8.4-10.2) mg/dL Magnesium (1.7-2.3) mg/dL Total Bilirubin (0.1-1.2) mg/dL AST (5-40) units/L ALT (7-56) units/L Alkaline Phosphatase (35-129) units/L Total Protein (6.3-8.2) g/dL Albumin (3.9-5) g/dL Urine WBC (Auto) (0.0-6.0) /HPF Crossmatch 03/03/19 03/03/19 03/03/19 Range/Units 00:45 01:10 02:04 WBC (4.5-11.0) K/mm3 RBC (3.65-5.03) M/mm3 Hgb (10.1-14.3) gm/dl Hct (30.3-42.9) % RDW (13.2-15.2) % Seg Neuts % (Manual) (40.0-70.0) % Lymphocytes % (Manual) (13.4-35.0) % Nucleated RBC % (0.0-0.9) % Seg Neutrophils # Man (1.8-7.7) K/mm3 Lymphocytes # (Manual) (1.2-5.4) K/mm3 D-Dimer (0-234) ng/mlDDU POC ABG pCO2 (35-45) POC ABG pO2 (80-105) Potassium 2.9 L* D (3.6-5.0) mmol/L Chloride 110.4 H (98-107) mmol/L Carbon Dioxide 16 L (22-30) mmol/L BUN 27 H (7-17) mg/dL Creatinine 2.7 H (0.7-1.2) mg/dL Glucose 156 H (65-100) mg/dL POC Glucose 189 H 214 H (70-105) Lactic Acid (0.7-2.0) mmol/L Calcium 4.6 L* D (8.4-10.2) mg/dL Magnesium (1.7-2.3) mg/dL Total Bilirubin (0.1-1.2) mg/dL AST (5-40) units/L ALT (7-56) units/L Alkaline Phosphatase (35-129) units/L Total Protein (6.3-8.2) g/dL Albumin (3.9-5) g/dL Urine WBC (Auto) (0.0-6.0) /HPF Crossmatch 03/03/19 03/03/19 03/03/19 Range/Units 03:07 04:10 04:52 WBC (4.5-11.0) K/mm3 RBC (3.65-5.03) M/mm3 Hgb (10.1-14.3) gm/dl Hct (30.3-42.9) % RDW (13.2-15.2) % Seg Neuts % (Manual) (40.0-70.0) % Lymphocytes % (Manual) (13.4-35.0) % Nucleated RBC % (0.0-0.9) % Seg Neutrophils # Man (1.8-7.7) K/mm3 Lymphocytes # (Manual) (1.2-5.4) K/mm3 D-Dimer (0-234) ng/mlDDU POC ABG pCO2 34.7 L (35-45) POC ABG pO2 51 L (80-105) Potassium (3.6-5.0) mmol/L Chloride (98-107) mmol/L Carbon Dioxide (22-30) mmol/L BUN (7-17) mg/dL Creatinine (0.7-1.2) mg/dL Glucose (65-100) mg/dL POC Glucose 160 H 142 H (70-105) Lactic Acid (0.7-2.0) mmol/L Calcium (8.4-10.2) mg/dL Magnesium (1.7-2.3) mg/dL Total Bilirubin (0.1-1.2) mg/dL AST (5-40) units/L ALT (7-56) units/L Alkaline Phosphatase (35-129) units/L Total Protein (6.3-8.2) g/dL Albumin (3.9-5) g/dL Urine WBC (Auto) (0.0-6.0) /HPF Crossmatch 03/03/19 03/03/19 03/03/19 Range/Units 05:20 06:06 06:50 WBC (4.5-11.0) K/mm3 RBC (3.65-5.03) M/mm3 Hgb (10.1-14.3) gm/dl Hct (30.3-42.9) % RDW (13.2-15.2) % Seg Neuts % (Manual) (40.0-70.0) % Lymphocytes % (Manual) (13.4-35.0) % Nucleated RBC % (0.0-0.9) % Seg Neutrophils # Man (1.8-7.7) K/mm3 Lymphocytes # (Manual) (1.2-5.4) K/mm3 D-Dimer (0-234) ng/mlDDU POC ABG pCO2 (35-45) POC ABG pO2 (80-105) Potassium (3.6-5.0) mmol/L Chloride (98-107) mmol/L Carbon Dioxide (22-30) mmol/L BUN (7-17) mg/dL Creatinine (0.7-1.2) mg/dL Glucose (65-100) mg/dL POC Glucose 142 H 127 H 131 H (70-105) Lactic Acid (0.7-2.0) mmol/L Calcium (8.4-10.2) mg/dL Magnesium (1.7-2.3) mg/dL Total Bilirubin (0.1-1.2) mg/dL AST (5-40) units/L ALT (7-56) units/L Alkaline Phosphatase (35-129) units/L Total Protein (6.3-8.2) g/dL Albumin (3.9-5) g/dL Urine WBC (Auto) (0.0-6.0) /HPF Crossmatch 03/03/19 03/03/19 03/03/19 Range/Units 08:01 08:30 08:30 WBC 14.0 H (4.5-11.0) K/mm3 RBC 3.52 L (3.65-5.03) M/mm3 Hgb 9.9 L D (10.1-14.3) gm/dl Hct 29.8 L D (30.3-42.9) % RDW 16.6 H (13.2-15.2) % Seg Neuts % (Manual) 92.0 H (40.0-70.0) % Lymphocytes % (Manual) 5.0 L (13.4-35.0) % Nucleated RBC % 13.0 H (0.0-0.9) % Seg Neutrophils # Man 0.0 L (1.8-7.7) K/mm3 Lymphocytes # (Manual) 0.0 L (1.2-5.4) K/mm3 D-Dimer (0-234) ng/mlDDU POC ABG pCO2 (35-45) POC ABG pO2 (80-105) Potassium 5.3 H D (3.6-5.0) mmol/L Chloride (98-107) mmol/L Carbon Dioxide (22-30) mmol/L BUN 38 H (7-17) mg/dL Creatinine 4.0 H (0.7-1.2) mg/dL Glucose 135 H (65-100) mg/dL POC Glucose 137 H (70-105) Lactic Acid (0.7-2.0) mmol/L Calcium 6.8 L D (8.4-10.2) mg/dL Magnesium 1.60 L (1.7-2.3) mg/dL Total Bilirubin 1.30 H (0.1-1.2) mg/dL AST 4012 H (5-40) units/L ALT 1793 H (7-56) units/L Alkaline Phosphatase 259 H (35-129) units/L Total Protein 4.6 L (6.3-8.2) g/dL Albumin 2.0 L (3.9-5) g/dL Urine WBC (Auto) (0.0-6.0) /HPF Crossmatch 03/03/19 03/03/19 03/03/19 Range/Units 08:30 09:03 10:17 WBC (4.5-11.0) K/mm3 RBC (3.65-5.03) M/mm3 Hgb (10.1-14.3) gm/dl Hct (30.3-42.9) % RDW (13.2-15.2) % Seg Neuts % (Manual) (40.0-70.0) % Lymphocytes % (Manual) (13.4-35.0) % Nucleated RBC % (0.0-0.9) % Seg Neutrophils # Man (1.8-7.7) K/mm3 Lymphocytes # (Manual) (1.2-5.4) K/mm3 D-Dimer (0-234) ng/mlDDU POC ABG pCO2 (35-45) POC ABG pO2 (80-105) Potassium (3.6-5.0) mmol/L Chloride (98-107) mmol/L Carbon Dioxide (22-30) mmol/L BUN (7-17) mg/dL Creatinine (0.7-1.2) mg/dL Glucose (65-100) mg/dL POC Glucose 108 H 113 H (70-105) Lactic Acid 4.00 H* (0.7-2.0) mmol/L Calcium (8.4-10.2) mg/dL Magnesium (1.7-2.3) mg/dL Total Bilirubin (0.1-1.2) mg/dL AST (5-40) units/L ALT (7-56) units/L Alkaline Phosphatase (35-129) units/L Total Protein (6.3-8.2) g/dL Albumin (3.9-5) g/dL Urine WBC (Auto) (0.0-6.0) /HPF Crossmatch 03/03/19 03/03/19 03/03/19 Range/Units 11:15 13:38 17:02 WBC (4.5-11.0) K/mm3 RBC (3.65-5.03) M/mm3 Hgb (10.1-14.3) gm/dl Hct (30.3-42.9) % RDW (13.2-15.2) % Seg Neuts % (Manual) (40.0-70.0) % Lymphocytes % (Manual) (13.4-35.0) % Nucleated RBC % (0.0-0.9) % Seg Neutrophils # Man (1.8-7.7) K/mm3 Lymphocytes # (Manual) (1.2-5.4) K/mm3 D-Dimer > 97919 H (0-234) ng/mlDDU POC ABG pCO2 (35-45) POC ABG pO2 (80-105) Potassium (3.6-5.0) mmol/L Chloride (98-107) mmol/L Carbon Dioxide (22-30) mmol/L BUN (7-17) mg/dL Creatinine (0.7-1.2) mg/dL Glucose (65-100) mg/dL POC Glucose 126 H 195 H (70-105) Lactic Acid (0.7-2.0) mmol/L Calcium (8.4-10.2) mg/dL Magnesium (1.7-2.3) mg/dL Total Bilirubin (0.1-1.2) mg/dL AST (5-40) units/L ALT (7-56) units/L Alkaline Phosphatase (35-129) units/L Total Protein (6.3-8.2) g/dL Albumin (3.9-5) g/dL Urine WBC (Auto) (0.0-6.0) /HPF Crossmatch - Imaging and cardiology Chest x-ray: report reviewed, image reviewed (central congestion and pulmonary edema)
[2019-03-04] MEDS: DUONEB *Not for PRN Use IH SCH ×4 (03:04→19:11)
--- NOTE | 2019-03-04 03:54 | XRay Report ---
PROCEDURE: XR CHEST 1V AP TECHNIQUE: Chest single AP HISTORY: follow up respiratory failure COMPARISONS: March 03, 2019 FINDINGS: Heart is borderline enlarged. There are increased bilateral perihilar infiltrates versus pulmonary ed nelli comparison to prior study. There is no pleural effusion or pneumothorax. The endotracheal tube is in the mid trachea. NG tube is in the stomach. There is a left-sided PICC line. The tip is in the [place] perior vena cava. IMPRESSION: Cardiomegaly. Bilateral perihilar infiltrates/pulmonary edema. ET tube, NG tube and PICC line are in proper position. This document is electronically signed by Denis Crook MD., March 04 2019 03:52:25 AM ET
[2019-03-04] MEDS: HumaLOG SUB-Q SCH ×5 (04:55→20:36)
[2019-03-04 05:36] LABS: Hemoglobin 9.2 gm/dl (10.1-14.3)
[2019-03-04] MEDS: LEVOPHED DRIP 4 MG/NS 250 ML 4 MG/250 ML BAG IV SCH ×4 (06:02→19:42)
[2019-03-04] MEDS: LASIX IV SCH ×2 (06:02→17:04)
[2019-03-04 06:11] LABS: Albumin 1.7 g/dL (3.9-5); Calcium 6.5 mg/dL (8.4-10.2)
--- NOTE | 2019-03-04 09:09 | Progress Note ---
Assessment and Plan Impression: Shock , hypovolemic plus minus septic plus low EF MSOF Acute bilateral cerebellar stroke. Currently the patient is unresponsive, comatose. See neurology evaluation Acute respiratory failure, mechanical ventilation support. NSTEMI with low EF Uncontrolled blood sugar with hyperosmolar state. Improved Pulmonary edema versus acute lung injury. Improved. Aspiration related to arrest also a consideration GERALDINE Severe metabolic acidosis, lactic. Still active, high LFT ( shock liver ?),low EF state Sepsis source unknown. Previously with UTI. Completed antibiotics per ID Hyperkalemia. Needs potassium replacement EKOS /arterial Thrombolysis to RLE for RLE ischemia, and R leg 4 compartment fasciotomy Recommendations Appreciate imput from consultants,complex scenario w MSOF Continue to wean pressors as tolerated. May need Dopamine for EF balance Potassium management Keep blood sugar between 150-180 mg per DL PRBC if Hgb < 7 Neuro comments noted,poor case for hep due to bleeding. Prognosis is grave. Need to discuss with family advanced directives,plans of care andf code status Critical care time was 40 minutes of [id number] evaluation and coordination of care Subjective Date of service: 03/04/19 Principal diagnosis: anemia Interval history: Intubated Objective Vital Signs - 12hr 03/03/19 03/03/19 03/03/19 21:15 21:30 21:45 Temperature Pulse Rate 94 H 94 H 94 H Pulse Rate [ Anterior Bilateral Throughout] Pulse Rate [ From Monitor] Respiratory 20 20 19 Rate Respiratory Rate [Anterior Bilateral Throughout] Blood Pressure 105/53 103/53 103/57 O2 Sat by Pulse 100 100 100 Oximetry 03/03/19 03/03/19 03/03/19 22:00 22:15 22:30 Temperature Pulse Rate 94 H 93 H 93 H Pulse Rate [ Anterior Bilateral Throughout] Pulse Rate [ From Monitor] Respiratory 20 20 20 Rate Respiratory Rate [Anterior Bilateral Throughout] Blood Pressure 109/50 99/53 100/53 O2 Sat by Pulse 100 100 100 Oximetry 03/03/19 03/03/19 03/03/19 22:45 22:58 23:00 Temperature Pulse Rate 93 H 92 H Pulse Rate [ Anterior Bilateral Throughout] Pulse Rate [ From Monitor] Respiratory 20 20 Rate Respiratory Rate [Anterior Bilateral Throughout] Blood Pressure 101/53 100/55 99/47 O2 Sat by Pulse 100 100 100 Oximetry 03/03/19 03/03/19 03/03/19 23:15 23:30 23:45 Temperature Pulse Rate 92 H 92 H 91 H Pulse Rate [ Anterior Bilateral Throughout] Pulse Rate [ From Monitor] Respiratory 20 20 20 Rate Respiratory Rate [Anterior Bilateral Throughout] Blood Pressure 98/53 97/51 98/54 O2 Sat by Pulse 100 100 100 Oximetry 03/04/19 03/04/19 03/04/19 00:00 00:15 00:30 Temperature 98.7 F Pulse Rate 91 H 91 H 91 H Pulse Rate [ Anterior Bilateral Throughout] Pulse Rate [ 91 H From Monitor] Respiratory 20 20 20 Rate Respiratory Rate [Anterior Bilateral Throughout] Blood Pressure 102/49 98/49 100/51 O2 Sat by Pulse 100 100 100 Oximetry 03/04/19 03/04/19 03/04/19 00:45 01:00 01:15 Temperature Pulse Rate 91 H 90 90 Pulse Rate [ Anterior Bilateral Throughout] Pulse Rate [ From Monitor] Respiratory 20 20 20 Rate Respiratory Rate [Anterior Bilateral Throughout] Blood Pressure 98/50 98/52 97/50 O2 Sat by Pulse 100 100 100 Oximetry 03/04/19 03/04/19 03/04/19 01:30 01:45 02:00 Temperature Pulse Rate 90 90 90 Pulse Rate [ Anterior Bilateral Throughout] Pulse Rate [ From Monitor] Respiratory 20 22 20 Rate Respiratory Rate [Anterior Bilateral Throughout] Blood Pressure 101/49 101/47 101/47 O2 Sat by Pulse 100 100 100 Oximetry 03/04/19 03/04/19 03/04/19 02:15 02:30 02:45 Temperature Pulse Rate 90 92 H 92 H Pulse Rate [ Anterior Bilateral Throughout] Pulse Rate [ From Monitor] Respiratory 20 20 20 Rate Respiratory Rate [Anterior Bilateral Throughout] Blood Pressure 93/51 101/53 101/50 O2 Sat by Pulse 100 100 100 Oximetry 03/04/19 03/04/19 03/04/19 03:00 03:15 03:30 Temperature Pulse Rate 92 H 87 86 Pulse Rate [ Anterior Bilateral Throughout] Pulse Rate [ From Monitor] Respiratory 20 19 20 Rate Respiratory Rate [Anterior Bilateral Throughout] Blood Pressure 102/49 102/49 99/43 O2 Sat by Pulse 100 100 Oximetry 03/04/19 03/04/19 03/04/19 03:45 04:00 04:15 Temperature 98.4 F Pulse Rate 92 H 94 H 94 H Pulse Rate [ 97 H Anterior Bilateral Throughout] Pulse Rate [ 88 From Monitor] Respiratory 16 18 20 Rate Respiratory 20 Rate [Anterior Bilateral Throughout] Blood Pressure 90/44 98/53 93/49 O2 Sat by Pulse 100 100 100 Oximetry 03/04/19 03/04/19 03/04/19 04:30 04:45 05:00 Temperature Pulse Rate 93 H 93 H 92 H Pulse Rate [ Anterior Bilateral Throughout] Pulse Rate [ From Monitor] Respiratory 20 18 17 Rate Respiratory Rate [Anterior Bilateral Throughout] Blood Pressure 95/46 93/48 95/47 O2 Sat by Pulse 100 100 100 Oximetry 03/04/19 03/04/19 03/04/19 05:15 05:30 05:45 Temperature Pulse Rate 95 H 89 88 Pulse Rate [ Anterior Bilateral Throughout] Pulse Rate [ From Monitor] Respiratory 18 20 20 Rate Respiratory Rate [Anterior Bilateral Throughout] Blood Pressure 89/49 97/48 96/49 O2 Sat by Pulse 100 100 100 Oximetry 03/04/19 03/04/19 03/04/19 06:00 06:15 06:30 Temperature Pulse Rate 87 89 90 Pulse Rate [ Anterior Bilateral Throughout] Pulse Rate [ From Monitor] Respiratory 20 20 19 Rate Respiratory Rate [Anterior Bilateral Throughout] Blood Pressure 95/43 108/53 106/54 O2 Sat by Pulse 100 100 100 Oximetry 03/04/19 03/04/19 03/04/19 06:45 07:00 07:15 Temperature Pulse Rate 90 90 91 H Pulse Rate [ Anterior Bilateral Throughout] Pulse Rate [ From Monitor] Respiratory 19 20 18 Rate Respiratory Rate [Anterior Bilateral Throughout] Blood Pressure 106/53 106/53 102/50 O2 Sat by Pulse 100 100 100 Oximetry 03/04/19 03/04/19 03/04/19 07:30 07:45 08:00 Temperature 98.7 F Pulse Rate 90 91 H 91 H Pulse Rate [ Anterior Bilateral Throughout] Pulse Rate [ 91 H From Monitor] Respiratory 18 19 20 Rate Respiratory Rate [Anterior Bilateral Throughout] Blood Pressure 98/49 104/44 100/46 O2 Sat by Pulse 100 100 100 Oximetry 03/04/19 03/04/19 03/04/19 08:15 08:39 08:46 Temperature Pulse Rate 91 H 91 H Pulse Rate [ 91 H Anterior Bilateral Throughout] Pulse Rate [ From Monitor] Respiratory 20 Rate Respiratory 20 Rate [Anterior Bilateral Throughout] Blood Pressure 102/44 106/55 O2 Sat by Pulse 100 200 H Oximetry Constitutional: comatose Eyes: non-icteric ENT: other (ETT in position) Neck: supple, no JVD (broad neck) Ascultation: Bilateral: rhonchi (bilaterally) Cardiovascular: regular rate and rhythm Gastrointestinal: normoactive bowel sounds, non-distended Extremities: other (right lower extremity bandage in place, somewhat cold, distal gangrene toes) Neurologic: other (pupils approximately 4-5 mm and reactive comatose off sedation, GCS 3,poorly reactive) CBC and BMP: 03/04/19 05:15 03/04/19 05:15 ABG, PT/INR, D-dimer: ABG POC ABG pH 7.380 (7.35-7.45) 03/04/19 05:20 POC ABG pCO2 37.4 (35-45) 03/04/19 05:20 POC ABG pO2 51 (80-105) L 03/03/19 04:52 POC ABG HCO3 22.1 (22-26 mml/L) 03/04/19 05:20 POC ABG Total CO2 23 (23-27mmol/L) 03/04/19 05:20 POC ABG O2 Sat 78 03/04/19 05:20 PT/INR, D-dimer PT 15.5 Sec. (12.2-14.9) H 02/28/19 18:33 INR 1.16 (0.87-1.13) H 02/28/19 18:33 D-Dimer > 79615 ng/mlDDU (0-234) H 03/03/19 13:38 Abnormal lab findings: Abnormal Labs 02/13/19 02/13/19 02/13/19 13:55 14:08 14:08 WBC 21.3 H RBC 3.00 L Hgb 8.5 L Hct 26.7 L MCHC RDW 16.4 H Plt Count 528 H Seg Neuts % (Manual) 89.0 H Lymphocytes % (Manual) 4.0 L Monocytes % (Manual) Nucleated RBC % 2.0 H Seg Neutrophils # Man 19.0 H Lymphocytes # (Manual) 0.9 L Monocytes # (Manual) PT INR D-Dimer POC ABG pH POC ABG pCO2 POC ABG pO2 Sodium 129 L Potassium 5.4 H Chloride 91.8 L Carbon Dioxide 17 L BUN 52 H Creatinine 2.5 H Glucose 402 H POC Glucose 389 H Hemoglobin A1c Lactic Acid Calcium Magnesium Total Bilirubin 1.50 H Direct Bilirubin 1.1 H AST 61 H ALT Alkaline Phosphatase 271 H Total Creatine Kinase CK-MB (CK-2) Troponin T NT-Pro-B Natriuret Pep Total Protein Albumin 2.3 L Triglycerides LDL Cholesterol Direct HDL Cholesterol Urine WBC (Auto) Crossmatch 02/13/19 02/13/19 02/13/19 14:15 14:15 14:20 WBC RBC Hgb Hct MCHC RDW Plt Count Seg Neuts % (Manual) Lymphocytes % (Manual) Monocytes % (Manual) Nucleated RBC % Seg Neutrophils # Man Lymphocytes # (Manual) Monocytes # (Manual) PT 15.6 H INR 1.17 H D-Dimer POC ABG pH POC ABG pCO2 POC ABG pO2 Sodium Potassium Chloride Carbon Dioxide BUN Creatinine Glucose POC Glucose Hemoglobin A1c Lactic Acid Calcium Magnesium 1.60 L Total Bilirubin Direct Bilirubin AST ALT Alkaline Phosphatase Total Creatine Kinase 1295 H CK-MB (CK-2) Troponin T 0.072 H NT-Pro-B Natriuret Pep 6167 H Total Protein Albumin Triglycerides 329 H LDL Cholesterol Direct 36 L HDL Cholesterol 17 L Urine WBC (Auto) Crossmatch 02/13/19 02/13/19 02/13/19 15:36 18:15 20:59 WBC RBC Hgb Hct MCHC RDW Plt Count Seg Neuts % (Manual) Lymphocytes % (Manual) Monocytes % (Manual) Nucleated RBC % Seg Neutrophils # Man Lymphocytes # (Manual) Monocytes # (Manual) PT INR D-Dimer POC ABG pH POC ABG pCO2 POC ABG pO2 Sodium Potassium Chloride Carbon Dioxide BUN Creatinine Glucose POC Glucose 293 H 390 H Hemoglobin A1c 9.2 H Lactic Acid Calcium Magnesium Total Bilirubin Direct Bilirubin AST ALT Alkaline Phosphatase Total Creatine Kinase CK-MB (CK-2) Troponin T NT-Pro-B Natriuret Pep Total Protein Albumin Triglycerides LDL Cholesterol Direct HDL Cholesterol Urine WBC (Auto) Crossmatch 02/14/19 02/14/19 02/14/19 07:45 08:15 08:15 WBC 23.2 H RBC 2.89 L Hgb 8.3 L Hct 25.3 L MCHC RDW 16.6 H Plt Count 457 H Seg Neuts % (Manual) 91.0 H Lymphocytes % (Manual) 3.0 L Monocytes % (Manual) Nucleated RBC % Seg Neutrophils # Man 21.1 H Lymphocytes # (Manual) 0.7 L Monocytes # (Manual) 1.2 H PT INR D-Dimer POC ABG pH POC ABG pCO2 POC ABG pO2 Sodium 126 L Potassium 5.3 H Chloride 91.5 L Carbon Dioxide 17 L BUN 65 H Creatinine 2.4 H Glucose 418 H POC Glucose Hemoglobin A1c Lactic Acid Calcium 8.2 L Magnesium 2.90 H Total Bilirubin 1.60 H Direct Bilirubin AST 47 H ALT Alkaline Phosphatase 218 H Total Creatine Kinase CK-MB (CK-2) Troponin T NT-Pro-B Natriuret Pep Total Protein 6.2 L Albumin 2.2 L Triglycerides LDL Cholesterol Direct HDL Cholesterol Urine WBC (Auto) Crossmatch 02/14/19 02/14/19 02/14/19 09:07 09:30 18:53 WBC RBC Hgb Hct MCHC RDW Plt Count Seg Neuts % (Manual) Lymphocytes % (Manual) Monocytes % (Manual) Nucleated RBC % Seg Neutrophils # Man Lymphocytes # (Manual) Monocytes # (Manual) PT INR D-Dimer POC ABG pH POC ABG pCO2 POC ABG pO2 Sodium Potassium Chloride Carbon Dioxide BUN Creatinine Glucose POC Glucose 384 H 353 H Hemoglobin A1c Lactic Acid Calcium Magnesium Total Bilirubin Direct Bilirubin AST ALT Alkaline Phosphatase Total Creatine Kinase CK-MB (CK-2) Troponin T NT-Pro-B Natriuret Pep Total Protein Albumin Triglycerides LDL Cholesterol Direct HDL Cholesterol Urine WBC (Auto) > 182.0 H Crossmatch 02/14/19 02/14/19 02/15/19 21:33 21:40 01:45 WBC RBC Hgb Hct MCHC RDW Plt Count Seg Neuts % (Manual) Lymphocytes % (Manual) Monocytes % (Manual) Nucleated RBC % Seg Neutrophils # Man Lymphocytes # (Manual) Monocytes # (Manual) PT INR D-Dimer POC ABG pH POC ABG pCO2 POC ABG pO2 Sodium Potassium Chloride Carbon Dioxide BUN Creatinine Glucose POC Glucose 404 H 360 H 299 H Hemoglobin A1c Lactic Acid Calcium Magnesium Total Bilirubin Direct Bilirubin AST ALT Alkaline Phosphatase Total Creatine Kinase CK-MB (CK-2) Troponin T NT-Pro-B Natriuret Pep Total Protein Albumin Triglycerides LDL Cholesterol Direct HDL Cholesterol Urine WBC (Auto) Crossmatch 02/15/19 02/15/19 02/15/19 05:32 05:38 11:35 WBC RBC Hgb Hct MCHC RDW Plt Count Seg Neuts % (Manual) Lymphocytes % (Manual) Monocytes % (Manual) Nucleated RBC % Seg Neutrophils # Man Lymphocytes # (Manual) Monocytes # (Manual) PT INR D-Dimer POC ABG pH POC ABG pCO2 POC ABG pO2 Sodium Potassium Chloride Carbon Dioxide BUN Creatinine Glucose POC Glucose 402 H 393 H Hemoglobin A1c Lactic Acid Calcium Magnesium 2.80 H Total Bilirubin Direct Bilirubin AST ALT Alkaline Phosphatase Total Creatine Kinase 448 H CK-MB (CK-2) Troponin T NT-Pro-B Natriuret Pep Total Protein Albumin Triglycerides LDL Cholesterol Direct HDL Cholesterol Urine WBC (Auto) Crossmatch 02/15/19 02/15/19 02/15/19 14:15 14:48 17:21 WBC RBC Hgb Hct MCHC RDW Plt Count Seg Neuts % (Manual) Lymphocytes % (Manual) Monocytes % (Manual) Nucleated RBC % Seg Neutrophils # Man Lymphocytes # (Manual) Monocytes # (Manual) PT INR D-Dimer POC ABG pH POC ABG pCO2 POC ABG pO2 Sodium 128 L Potassium Chloride 92.4 L Carbon Dioxide 21 L BUN 86 H Creatinine 1.9 H Glucose 436 H POC Glucose 386 H 347 H Hemoglobin A1c Lactic Acid Calcium 8.1 L Magnesium Total Bilirubin Direct Bilirubin AST ALT Alkaline Phosphatase Total Creatine Kinase CK-MB (CK-2) Troponin T NT-Pro-B Natriuret Pep Total Protein Albumin Triglycerides LDL Cholesterol Direct HDL Cholesterol Urine WBC (Auto) Crossmatch 02/15/19 02/15/19 02/16/19 22:32 23:51 04:08 WBC RBC Hgb Hct MCHC RDW Plt Count Seg Neuts % (Manual) Lymphocytes % (Manual) Monocytes % (Manual) Nucleated RBC % Seg Neutrophils # Man Lymphocytes # (Manual) Monocytes # (Manual) PT INR D-Dimer POC ABG pH POC ABG pCO2 POC ABG pO2 Sodium Potassium Chloride Carbon Dioxide BUN Creatinine Glucose POC Glucose 272 H 244 H 253 H Hemoglobin A1c Lactic Acid Calcium Magnesium Total Bilirubin Direct Bilirubin AST ALT Alkaline Phosphatase Total Creatine Kinase CK-MB (CK-2) Troponin T NT-Pro-B Natriuret Pep Total Protein Albumin Triglycerides LDL Cholesterol Direct HDL Cholesterol Urine WBC (Auto) Crossmatch 02/16/19 02/16/19 02/16/19 05:29 08:52 11:55 WBC RBC Hgb Hct MCHC RDW Plt Count Seg Neuts % (Manual) Lymphocytes % (Manual) Monocytes % (Manual) Nucleated RBC % Seg Neutrophils # Man Lymphocytes # (Manual) Monocytes # (Manual) PT INR D-Dimer POC ABG pH POC ABG pCO2 POC ABG pO2 Sodium Potassium Chloride Carbon Dioxide BUN Creatinine Glucose POC Glucose 262 H 313 H Hemoglobin A1c Lactic Acid Calcium Magnesium Total Bilirubin Direct Bilirubin AST ALT Alkaline Phosphatase Total Creatine Kinase 200 H CK-MB (CK-2) Troponin T NT-Pro-B Natriuret Pep Total Protein Albumin Triglycerides LDL Cholesterol Direct HDL Cholesterol Urine WBC (Auto) Crossmatch 02/16/19 02/16/19 02/17/19 16:20 22:38 00:15 WBC RBC Hgb Hct MCHC RDW Plt Count Seg Neuts % (Manual) Lymphocytes % (Manual) Monocytes % (Manual) Nucleated RBC % Seg Neutrophils # Man Lymphocytes # (Manual) Monocytes # (Manual) PT INR D-Dimer POC ABG pH POC ABG pCO2 POC ABG pO2 Sodium 131 L Potassium Chloride 95.7 L Carbon Dioxide 21 L BUN 70 H Creatinine 1.3 H Glucose 121 H POC Glucose 146 H 125 H Hemoglobin A1c Lactic Acid Calcium 8.0 L Magnesium Total Bilirubin Direct Bilirubin AST ALT Alkaline Phosphatase Total Creatine Kinase CK-MB (CK-2) Troponin T NT-Pro-B Natriuret Pep Total Protein Albumin Triglycerides LDL Cholesterol Direct HDL Cholesterol Urine WBC (Auto) Crossmatch 02/17/19 02/17/19 02/17/19 03:49 07:32 10:41 WBC 13.3 H RBC 2.92 L Hgb 8.2 L Hct 24.6 L MCHC RDW 16.2 H Plt Count Seg Neuts % (Manual) 85.0 H Lymphocytes % (Manual) 8.0 L Monocytes % (Manual) Nucleated RBC % Seg Neutrophils # Man 11.3 H Lymphocytes # (Manual) 1.1 L Monocytes # (Manual) PT INR D-Dimer POC ABG pH POC ABG pCO2 POC ABG pO2 Sodium 129 L Potassium 5.2 H D Chloride 95.9 L Carbon Dioxide 18 L BUN 69 H Creatinine 1.4 H Glucose POC Glucose 146 H Hemoglobin A1c Lactic Acid Calcium 8.1 L Magnesium Total Bilirubin Direct Bilirubin AST ALT Alkaline Phosphatase Total Creatine Kinase CK-MB (CK-2) Troponin T NT-Pro-B Natriuret Pep Total Protein Albumin Triglycerides LDL Cholesterol Direct HDL Cholesterol Urine WBC (Auto) Crossmatch 02/17/19 02/17/19 02/18/19 11:14 16:18 01:14 WBC 14.6 H RBC 2.53 L Hgb 7.1 L Hct 21.7 L MCHC RDW 16.6 H Plt Count Seg Neuts % (Manual) 72.0 H Lymphocytes % (Manual) 8.0 L Monocytes % (Manual) 11.0 H Nucleated RBC % Seg Neutrophils # Man 10.5 H Lymphocytes # (Manual) Monocytes # (Manual) 1.6 H PT INR D-Dimer POC ABG pH POC ABG pCO2 POC ABG pO2 Sodium Potassium Chloride Carbon Dioxide BUN Creatinine Glucose POC Glucose 219 H 176 H Hemoglobin A1c Lactic Acid Calcium Magnesium Total Bilirubin Direct Bilirubin AST ALT Alkaline Phosphatase Total Creatine Kinase CK-MB (CK-2) Troponin T NT-Pro-B Natriuret Pep Total Protein Albumin Triglycerides LDL Cholesterol Direct HDL Cholesterol Urine WBC (Auto) Crossmatch 02/18/19 02/18/19 02/18/19 04:25 11:35 11:57 WBC RBC Hgb Hct MCHC RDW Plt Count Seg Neuts % (Manual) Lymphocytes % (Manual) Monocytes % (Manual) Nucleated RBC % Seg Neutrophils # Man Lymphocytes # (Manual) Monocytes # (Manual) PT INR D-Dimer POC ABG pH POC ABG pCO2 POC ABG pO2 Sodium 130 L Potassium Chloride 94.7 L Carbon Dioxide BUN 53 H Creatinine Glucose POC Glucose 197 H Hemoglobin A1c Lactic Acid Calcium 7.8 L Magnesium Total Bilirubin Direct Bilirubin AST ALT Alkaline Phosphatase Total Creatine Kinase CK-MB (CK-2) Troponin T NT-Pro-B Natriuret Pep Total Protein Albumin Triglycerides LDL Cholesterol Direct HDL Cholesterol Urine WBC (Auto) Crossmatch See Detail 02/18/19 02/18/19 02/19/19 16:32 21:26 07:01 WBC RBC Hgb Hct MCHC RDW Plt Count Seg Neuts % (Manual) Lymphocytes % (Manual) Monocytes % (Manual) Nucleated RBC % Seg Neutrophils # Man Lymphocytes # (Manual) Monocytes # (Manual) PT INR D-Dimer POC ABG pH POC ABG pCO2 POC ABG pO2 Sodium 135 L Potassium Chloride Carbon Dioxide BUN 36 H Creatinine Glucose POC Glucose 108 H 107 H Hemoglobin A1c Lactic Acid Calcium 7.9 L Magnesium Total Bilirubin Direct Bilirubin AST ALT Alkaline Phosphatase Total Creatine Kinase CK-MB (CK-2) Troponin T NT-Pro-B Natriuret Pep Total Protein Albumin Triglycerides LDL Cholesterol Direct HDL Cholesterol Urine WBC (Auto) Crossmatch 02/19/19 02/19/19 02/19/19 11:11 13:46 15:19 WBC 12.0 H RBC 2.63 L Hgb 7.5 L Hct 23.3 L MCHC RDW 16.6 H Plt Count Seg Neuts % (Manual) 74.0 H Lymphocytes % (Manual) Monocytes % (Manual) Nucleated RBC % Seg Neutrophils # Man 8.9 H Lymphocytes # (Manual) Monocytes # (Manual) PT INR D-Dimer POC ABG pH POC ABG pCO2 POC ABG pO2 Sodium Potassium Chloride Carbon Dioxide BUN Creatinine Glucose POC Glucose 125 H 181 H Hemoglobin A1c Lactic Acid Calcium Magnesium Total Bilirubin Direct Bilirubin AST ALT Alkaline Phosphatase Total Creatine Kinase CK-MB (CK-2) Troponin T NT-Pro-B Natriuret Pep Total Protein Albumin Triglycerides LDL Cholesterol Direct HDL Cholesterol Urine WBC (Auto) Crossmatch 02/19/19 02/20/19 02/20/19 22:04 02:47 05:25 WBC RBC Hgb Hct MCHC RDW Plt Count Seg Neuts % (Manual) Lymphocytes % (Manual) Monocytes % (Manual) Nucleated RBC % Seg Neutrophils # Man Lymphocytes # (Manual) Monocytes # (Manual) PT INR D-Dimer POC ABG pH POC ABG pCO2 POC ABG pO2 Sodium Potassium Chloride Carbon Dioxide BUN Creatinine Glucose POC Glucose 298 H 136 H 106 H Hemoglobin A1c Lactic Acid Calcium Magnesium Total Bilirubin Direct Bilirubin AST ALT Alkaline Phosphatase Total Creatine Kinase CK-MB (CK-2) Troponin T NT-Pro-B Natriuret Pep Total Protein Albumin Triglycerides LDL Cholesterol Direct HDL Cholesterol Urine WBC (Auto) Crossmatch 02/20/19 02/20/19 02/20/19 06:07 07:55 12:17 WBC RBC Hgb Hct MCHC RDW Plt Count Seg Neuts % (Manual) Lymphocytes % (Manual) Monocytes % (Manual) Nucleated RBC % Seg Neutrophils # Man Lymphocytes # (Manual) Monocytes # (Manual) PT INR D-Dimer POC ABG pH POC ABG pCO2 POC ABG pO2 Sodium Potassium Chloride Carbon Dioxide BUN 23 H Creatinine Glucose 105 H POC Glucose 112 H 195 H Hemoglobin A1c Lactic Acid Calcium 7.4 L Magnesium Total Bilirubin Direct Bilirubin AST ALT Alkaline Phosphatase Total Creatine Kinase CK-MB (CK-2) Troponin T NT-Pro-B Natriuret Pep Total Protein Albumin Triglycerides LDL Cholesterol Direct HDL Cholesterol Urine WBC (Auto) Crossmatch 02/20/19 02/20/19 02/21/19 16:34 22:23 11:35 WBC RBC Hgb Hct MCHC RDW Plt Count Seg Neuts % (Manual) Lymphocytes % (Manual) Monocytes % (Manual) Nucleated RBC % Seg Neutrophils # Man Lymphocytes # (Manual) Monocytes # (Manual) PT INR D-Dimer POC ABG pH POC ABG pCO2 POC ABG pO2 Sodium Potassium Chloride Carbon Dioxide BUN Creatinine Glucose POC Glucose 117 H 153 H 142 H Hemoglobin A1c Lactic Acid Calcium Magnesium Total Bilirubin Direct Bilirubin AST ALT Alkaline Phosphatase Total Creatine Kinase CK-MB (CK-2) Troponin T NT-Pro-B Natriuret Pep Total Protein Albumin Triglycerides LDL Cholesterol Direct HDL Cholesterol Urine WBC (Auto) Crossmatch 02/21/19 02/21/19 02/21/19 11:38 17:12 19:19 WBC RBC Hgb Hct MCHC RDW Plt Count Seg Neuts % (Manual) Lymphocytes % (Manual) Monocytes % (Manual) Nucleated RBC % Seg Neutrophils # Man Lymphocytes # (Manual) Monocytes # (Manual) PT INR D-Dimer POC ABG pH POC ABG pCO2 POC ABG pO2 Sodium 135 L Potassium Chloride Carbon Dioxide 18 L BUN Creatinine Glucose 129 H POC Glucose 61 L 135 H Hemoglobin A1c Lactic Acid Calcium 7.4 L Magnesium Total Bilirubin Direct Bilirubin AST ALT Alkaline Phosphatase Total Creatine Kinase CK-MB (CK-2) Troponin T NT-Pro-B Natriuret Pep Total Protein Albumin Triglycerides LDL Cholesterol Direct HDL Cholesterol Urine WBC (Auto) Crossmatch 02/21/19 02/22/19 02/22/19 21:24 04:18 04:49 WBC RBC Hgb Hct MCHC RDW Plt Count Seg Neuts % (Manual) Lymphocytes % (Manual) Monocytes % (Manual) Nucleated RBC % Seg Neutrophils # Man Lymphocytes # (Manual) Monocytes # (Manual) PT INR D-Dimer POC ABG pH 7.459 H POC ABG pCO2 POC ABG pO2 Sodium Potassium Chloride Carbon Dioxide BUN Creatinine Glucose POC Glucose 146 H 186 H Hemoglobin A1c Lactic Acid Calcium Magnesium Total Bilirubin Direct Bilirubin AST ALT Alkaline Phosphatase Total Creatine Kinase CK-MB (CK-2) Troponin T NT-Pro-B Natriuret Pep Total Protein Albumin Triglycerides LDL Cholesterol Direct HDL Cholesterol Urine WBC (Auto) Crossmatch 02/22/19 02/22/19 02/22/19 07:56 08:26 08:26 WBC RBC Hgb Hct MCHC RDW Plt Count Seg Neuts % (Manual) Lymphocytes % (Manual) Monocytes % (Manual) Nucleated RBC % Seg Neutrophils # Man Lymphocytes # (Manual) Monocytes # (Manual) PT INR D-Dimer 1481.17 H POC ABG pH POC ABG pCO2 POC ABG pO2 Sodium 133 L Potassium 5.3 H Chloride Carbon Dioxide 19 L BUN Creatinine Glucose 216 H POC Glucose 239 H Hemoglobin A1c Lactic Acid Calcium 7.7 L Magnesium Total Bilirubin Direct Bilirubin AST ALT Alkaline Phosphatase Total Creatine Kinase CK-MB (CK-2) Troponin T NT-Pro-B Natriuret Pep Total Protein Albumin Triglycerides LDL Cholesterol Direct HDL Cholesterol Urine WBC (Auto) Crossmatch 02/22/19 02/22/19 02/22/19 11:59 17:06 22:00 WBC RBC Hgb Hct MCHC RDW Plt Count Seg Neuts % (Manual) Lymphocytes % (Manual) Monocytes % (Manual) Nucleated RBC % Seg Neutrophils # Man Lymphocytes # (Manual) Monocytes # (Manual) PT INR D-Dimer POC ABG pH POC ABG pCO2 POC ABG pO2 Sodium Potassium Chloride Carbon Dioxide BUN Creatinine Glucose POC Glucose 238 H 61 L 174 H Hemoglobin A1c Lactic Acid Calcium Magnesium Total Bilirubin Direct Bilirubin AST ALT Alkaline Phosphatase Total Creatine Kinase CK-MB (CK-2) Troponin T NT-Pro-B Natriuret Pep Total Protein Albumin Triglycerides LDL Cholesterol Direct HDL Cholesterol Urine WBC (Auto) Crossmatch 02/23/19 02/23/19 02/23/19 06:12 07:50 21:43 WBC RBC Hgb Hct MCHC RDW Plt Count Seg Neuts % (Manual) Lymphocytes % (Manual) Monocytes % (Manual) Nucleated RBC % Seg Neutrophils # Man Lymphocytes # (Manual) Monocytes # (Manual) PT INR D-Dimer POC ABG pH POC ABG pCO2 POC ABG pO2 Sodium Potassium Chloride Carbon Dioxide 19 L BUN 18 H Creatinine Glucose 52 L POC Glucose 55 L 107 H Hemoglobin A1c Lactic Acid Calcium 8.3 L Magnesium Total Bilirubin Direct Bilirubin AST ALT Alkaline Phosphatase Total Creatine Kinase CK-MB (CK-2) Troponin T NT-Pro-B Natriuret Pep Total Protein Albumin Triglycerides LDL Cholesterol Direct HDL Cholesterol Urine WBC (Auto) Crossmatch 02/24/19 02/24/19 02/24/19 07:29 11:29 16:05 WBC RBC Hgb Hct MCHC RDW Plt Count Seg Neuts % (Manual) Lymphocytes % (Manual) Monocytes % (Manual) Nucleated RBC % Seg Neutrophils # Man Lymphocytes # (Manual) Monocytes # (Manual) PT INR D-Dimer POC ABG pH POC ABG pCO2 POC ABG pO2 Sodium Potassium Chloride Carbon Dioxide BUN Creatinine Glucose POC Glucose 176 H 253 H 179 H Hemoglobin A1c Lactic Acid Calcium Magnesium Total Bilirubin Direct Bilirubin AST ALT Alkaline Phosphatase Total Creatine Kinase CK-MB (CK-2) Troponin T NT-Pro-B Natriuret Pep Total Protein Albumin Triglycerides LDL Cholesterol Direct HDL Cholesterol Urine WBC (Auto) Crossmatch 02/24/19 02/25/19 02/25/19 21:50 07:57 11:54 WBC RBC Hgb Hct MCHC RDW Plt Count Seg Neuts % (Manual) Lymphocytes % (Manual) Monocytes % (Manual) Nucleated RBC % Seg Neutrophils # Man Lymphocytes # (Manual) Monocytes # (Manual) PT INR D-Dimer POC ABG pH POC ABG pCO2 POC ABG pO2 Sodium Potassium Chloride Carbon Dioxide BUN Creatinine Glucose POC Glucose 200 H 249 H 260 H Hemoglobin A1c Lactic Acid Calcium Magnesium Total Bilirubin Direct Bilirubin AST ALT Alkaline Phosphatase Total Creatine Kinase CK-MB (CK-2) Troponin T NT-Pro-B Natriuret Pep Total Protein Albumin Triglycerides LDL Cholesterol Direct HDL Cholesterol Urine WBC (Auto) Crossmatch 02/25/19 02/25/19 02/26/19 16:34 21:52 07:54 WBC RBC Hgb Hct MCHC RDW Plt Count Seg Neuts % (Manual) Lymphocytes % (Manual) Monocytes % (Manual) Nucleated RBC % Seg Neutrophils # Man Lymphocytes # (Manual) Monocytes # (Manual) PT INR D-Dimer POC ABG pH POC ABG pCO2 POC ABG pO2 Sodium Potassium Chloride Carbon Dioxide BUN Creatinine Glucose POC Glucose 198 H 254 H 213 H Hemoglobin A1c Lactic Acid Calcium Magnesium Total Bilirubin Direct Bilirubin AST ALT Alkaline Phosphatase Total Creatine Kinase CK-MB (CK-2) Troponin T NT-Pro-B Natriuret Pep Total Protein Albumin Triglycerides LDL Cholesterol Direct HDL Cholesterol Urine WBC (Auto) Crossmatch 02/26/19 02/26/19 02/26/19 11:49 16:00 22:00 WBC RBC Hgb Hct MCHC RDW Plt Count Seg Neuts % (Manual) Lymphocytes % (Manual) Monocytes % (Manual) Nucleated RBC % Seg Neutrophils # Man Lymphocytes # (Manual) Monocytes # (Manual) PT INR D-Dimer POC ABG pH POC ABG pCO2 POC ABG pO2 Sodium Potassium Chloride Carbon Dioxide BUN Creatinine Glucose POC Glucose 306 H 183 H 162 H Hemoglobin A1c Lactic Acid Calcium Magnesium Total Bilirubin Direct Bilirubin AST ALT Alkaline Phosphatase Total Creatine Kinase CK-MB (CK-2) Troponin T NT-Pro-B Natriuret Pep Total Protein Albumin Triglycerides LDL Cholesterol Direct HDL Cholesterol Urine WBC (Auto) Crossmatch 02/27/19 02/27/19 02/27/19 07:44 11:11 16:57 WBC RBC Hgb Hct MCHC RDW Plt Count Seg Neuts % (Manual) Lymphocytes % (Manual) Monocytes % (Manual) Nucleated RBC % Seg Neutrophils # Man Lymphocytes # (Manual) Monocytes # (Manual) PT INR D-Dimer POC ABG pH POC ABG pCO2 POC ABG pO2 Sodium Potassium Chloride Carbon Dioxide BUN Creatinine Glucose POC Glucose 171 H 217 H 199 H Hemoglobin A1c Lactic Acid Calcium Magnesium Total Bilirubin Direct Bilirubin AST ALT Alkaline Phosphatase Total Creatine Kinase CK-MB (CK-2) Troponin T NT-Pro-B Natriuret Pep Total Protein Albumin Triglycerides LDL Cholesterol Direct HDL Cholesterol Urine WBC (Auto) Crossmatch 02/27/19 02/28/19 02/28/19 21:48 07:36 11:41 WBC RBC Hgb Hct MCHC RDW Plt Count Seg Neuts % (Manual) Lymphocytes % (Manual) Monocytes % (Manual) Nucleated RBC % Seg Neutrophils # Man Lymphocytes # (Manual) Monocytes # (Manual) PT INR D-Dimer POC ABG pH POC ABG pCO2 POC ABG pO2 Sodium Potassium Chloride Carbon Dioxide BUN Creatinine Glucose POC Glucose 161 H 148 H 244 H Hemoglobin A1c Lactic Acid Calcium Magnesium Total Bilirubin Direct Bilirubin AST ALT Alkaline Phosphatase Total Creatine Kinase CK-MB (CK-2) Troponin T NT-Pro-B Natriuret Pep Total Protein Albumin Triglycerides LDL Cholesterol Direct HDL Cholesterol Urine WBC (Auto) Crossmatch 02/28/19 02/28/19 02/28/19 16:32 16:53 17:28 WBC RBC Hgb Hct MCHC RDW Plt Count Seg Neuts % (Manual) Lymphocytes % (Manual) Monocytes % (Manual) Nucleated RBC % Seg Neutrophils # Man Lymphocytes # (Manual) Monocytes # (Manual) PT INR D-Dimer POC ABG pH POC ABG pCO2 POC ABG pO2 53 L Sodium Potassium Chloride Carbon Dioxide BUN Creatinine Glucose POC Glucose 283 H Hemoglobin A1c Lactic Acid Calcium Magnesium Total Bilirubin Direct Bilirubin AST ALT Alkaline Phosphatase Total Creatine Kinase CK-MB (CK-2) Troponin T 0.119 H* NT-Pro-B Natriuret Pep Total Protein Albumin Triglycerides LDL Cholesterol Direct HDL Cholesterol Urine WBC (Auto) Crossmatch 02/28/19 02/28/19 02/28/19 18:33 18:33 18:33 WBC 11.5 H RBC 2.35 L Hgb 6.5 L Hct 21.2 L MCHC RDW 17.6 H Plt Count 631 H Seg Neuts % (Manual) 87.0 H Lymphocytes % (Manual) 9.0 L Monocytes % (Manual) Nucleated RBC % Seg Neutrophils # Man 10.0 H Lymphocytes # (Manual) 1.0 L Monocytes # (Manual) PT 15.5 H INR 1.16 H D-Dimer POC ABG pH POC ABG pCO2 POC ABG pO2 Sodium Potassium Chloride Carbon Dioxide BUN Creatinine Glucose POC Glucose Hemoglobin A1c Lactic Acid Calcium Magnesium Total Bilirubin Direct Bilirubin AST ALT Alkaline Phosphatase Total Creatine Kinase 165 H CK-MB (CK-2) 4.9 H Troponin T 0.123 H* NT-Pro-B Natriuret Pep Total Protein Albumin Triglycerides LDL Cholesterol Direct HDL Cholesterol Urine WBC (Auto) Crossmatch 02/28/19 02/28/19 02/28/19 18:33 19:55 21:39 WBC RBC Hgb Hct MCHC RDW Plt Count Seg Neuts % (Manual) Lymphocytes % (Manual) Monocytes % (Manual) Nucleated RBC % Seg Neutrophils # Man Lymphocytes # (Manual) Monocytes # (Manual) PT INR D-Dimer POC ABG pH 7.319 L POC ABG pCO2 POC ABG pO2 196 H Sodium 136 L Potassium 5.6 H Chloride Carbon Dioxide 14 L BUN 21 H Creatinine 1.4 H Glucose 274 H POC Glucose 277 H Hemoglobin A1c Lactic Acid Calcium 8.3 L Magnesium Total Bilirubin Direct Bilirubin AST ALT Alkaline Phosphatase 165 H Total Creatine Kinase CK-MB (CK-2) Troponin T NT-Pro-B Natriuret Pep Total Protein Albumin 2.7 L Triglycerides LDL Cholesterol Direct HDL Cholesterol Urine WBC (Auto) Crossmatch 02/28/19 02/28/19 02/28/19 22:46 22:47 22:59 WBC RBC Hgb Hct MCHC RDW Plt Count Seg Neuts % (Manual) Lymphocytes % (Manual) Monocytes % (Manual) Nucleated RBC % Seg Neutrophils # Man Lymphocytes # (Manual) Monocytes # (Manual) PT INR D-Dimer POC ABG pH 7.068 L POC ABG pCO2 34.7 L POC ABG pO2 280 H Sodium Potassium Chloride Carbon Dioxide BUN Creatinine Glucose POC Glucose Hemoglobin A1c Lactic Acid 16.50 H* Calcium Magnesium Total Bilirubin Direct Bilirubin AST ALT Alkaline Phosphatase Total Creatine Kinase CK-MB (CK-2) Troponin T 0.595 H* D NT-Pro-B Natriuret Pep Total Protein Albumin Triglycerides LDL Cholesterol Direct HDL Cholesterol Urine WBC (Auto) Crossmatch 02/28/19 03/01/19 03/01/19 22:59 00:47 00:48 WBC RBC Hgb Hct MCHC RDW Plt Count Seg Neuts % (Manual) Lymphocytes % (Manual) Monocytes % (Manual) Nucleated RBC % Seg Neutrophils # Man Lymphocytes # (Manual) Monocytes # (Manual) PT INR D-Dimer POC ABG pH POC ABG pCO2 POC ABG pO2 Sodium Potassium 7.0 H* D 7.3 H* Chloride 97.5 L Carbon Dioxide 10 L 7 L* BUN 22 H 23 H Creatinine 1.7 H 2.0 H Glucose 223 H 222 H POC Glucose Hemoglobin A1c Lactic Acid 19.80 H* Calcium 8.1 L Magnesium Total Bilirubin Direct Bilirubin AST 107 H 223 H ALT Alkaline Phosphatase 208 H 209 H Total Creatine Kinase CK-MB (CK-2) Troponin T NT-Pro-B Natriuret Pep Total Protein 5.9 L Albumin 2.7 L 2.5 L Triglycerides LDL Cholesterol Direct HDL Cholesterol Urine WBC (Auto) Crossmatch 03/01/19 03/01/19 03/01/19 04:07 04:07 04:07 WBC RBC Hgb Hct MCHC RDW Plt Count Seg Neuts % (Manual) Lymphocytes % (Manual) Monocytes % (Manual) Nucleated RBC % Seg Neutrophils # Man Lymphocytes # (Manual) Monocytes # (Manual) PT INR D-Dimer POC ABG pH POC ABG pCO2 POC ABG pO2 Sodium Potassium 6.1 H* Chloride Carbon Dioxide 6 L* BUN 22 H Creatinine 2.0 H Glucose 269 H POC Glucose Hemoglobin A1c Lactic Acid 22.60 H* Calcium 6.9 L Magnesium Total Bilirubin Direct Bilirubin AST 1971 H ALT 686 H Alkaline Phosphatase 193 H Total Creatine Kinase CK-MB (CK-2) Troponin T 2.910 H* D NT-Pro-B Natriuret Pep Total Protein 4.6 L D Albumin 2.0 L Triglycerides LDL Cholesterol Direct HDL Cholesterol Urine WBC (Auto) Crossmatch 03/01/19 03/01/19 03/01/19 04:45 05:03 05:38 WBC RBC 1.78 L Hgb 5.0 L* Hct 17.4 L* MCHC 29 L RDW 18.3 H Plt Count Seg Neuts % (Manual) 78.0 H Lymphocytes % (Manual) Monocytes % (Manual) Nucleated RBC % 2.0 H Seg Neutrophils # Man Lymphocytes # (Manual) Monocytes # (Manual) PT INR D-Dimer POC ABG pH 6.806 L 6.895 L POC ABG pCO2 POC ABG pO2 54 L 213 H Sodium Potassium Chloride Carbon Dioxide BUN Creatinine Glucose POC Glucose Hemoglobin A1c Lactic Acid Calcium Magnesium Total Bilirubin Direct Bilirubin AST ALT Alkaline Phosphatase Total Creatine Kinase CK-MB (CK-2) Troponin T NT-Pro-B Natriuret Pep Total Protein Albumin Triglycerides LDL Cholesterol Direct HDL Cholesterol Urine WBC (Auto) Crossmatch 03/01/19 03/01/19 03/01/19 05:38 06:03 07:29 WBC RBC Hgb Hct MCHC RDW Plt Count Seg Neuts % (Manual) Lymphocytes % (Manual) Monocytes % (Manual) Nucleated RBC % Seg Neutrophils # Man Lymphocytes # (Manual) Monocytes # (Manual) PT INR D-Dimer POC ABG pH POC ABG pCO2 POC ABG pO2 Sodium Potassium Chloride Carbon Dioxide BUN Creatinine Glucose POC Glucose 310 H Hemoglobin A1c Lactic Acid 23.40 H* 24.70 H* Calcium Magnesium Total Bilirubin Direct Bilirubin AST ALT Alkaline Phosphatase Total Creatine Kinase CK-MB (CK-2) Troponin T NT-Pro-B Natriuret Pep Total Protein Albumin Triglycerides LDL Cholesterol Direct HDL Cholesterol Urine WBC (Auto) Crossmatch 03/01/19 03/01/19 03/01/19 07:30 11:38 12:02 WBC RBC Hgb Hct MCHC RDW Plt Count Seg Neuts % (Manual) Lymphocytes % (Manual) Monocytes % (Manual) Nucleated RBC % Seg Neutrophils # Man Lymphocytes # (Manual) Monocytes # (Manual) PT INR D-Dimer POC ABG pH POC ABG pCO2 POC ABG pO2 Sodium Potassium 6.3 H* Chloride Carbon Dioxide BUN Creatinine Glucose POC Glucose 326 H Hemoglobin A1c Lactic Acid Calcium Magnesium Total Bilirubin Direct Bilirubin AST ALT Alkaline Phosphatase Total Creatine Kinase CK-MB (CK-2) Troponin T NT-Pro-B Natriuret Pep Total Protein Albumin Triglycerides LDL Cholesterol Direct HDL Cholesterol Urine WBC (Auto) Crossmatch See Detail 03/01/19 03/01/19 03/01/19 12:30 17:34 18:26 WBC RBC Hgb Hct MCHC RDW Plt Count Seg Neuts % (Manual) Lymphocytes % (Manual) Monocytes % (Manual) Nucleated RBC % Seg Neutrophils # Man Lymphocytes # (Manual) Monocytes # (Manual) PT INR D-Dimer POC ABG pH 6.960 L 7.101 L POC ABG pCO2 32.7 L POC ABG pO2 117 H 109 H Sodium Potassium Chloride Carbon Dioxide BUN Creatinine Glucose POC Glucose 434 H Hemoglobin A1c Lactic Acid Calcium Magnesium Total Bilirubin Direct Bilirubin AST ALT Alkaline Phosphatase Total Creatine Kinase CK-MB (CK-2) Troponin T NT-Pro-B Natriuret Pep Total Protein Albumin Triglycerides LDL Cholesterol Direct HDL Cholesterol Urine WBC (Auto) Crossmatch 03/01/19 03/01/19 03/01/19 20:24 20:24 21:39 WBC RBC Hgb 8.9 L D Hct 28.2 L D MCHC RDW Plt Count Seg Neuts % (Manual) Lymphocytes % (Manual) Monocytes % (Manual) Nucleated RBC % Seg Neutrophils # Man Lymphocytes # (Manual) Monocytes # (Manual) PT INR D-Dimer POC ABG pH POC ABG pCO2 POC ABG pO2 Sodium Potassium 6.2 H* Chloride Carbon Dioxide BUN Creatinine Glucose POC Glucose > 500 H Hemoglobin A1c Lactic Acid Calcium Magnesium Total Bilirubin Direct Bilirubin AST ALT Alkaline Phosphatase Total Creatine Kinase CK-MB (CK-2) Troponin T NT-Pro-B Natriuret Pep Total Protein Albumin Triglycerides LDL Cholesterol Direct HDL Cholesterol Urine WBC (Auto) Crossmatch 03/01/19 03/02/19 03/02/19 22:45 01:42 04:20 WBC 13.0 H RBC 2.47 L Hgb 7.0 L Hct 22.8 L MCHC RDW 18.4 H Plt Count Seg Neuts % (Manual) 95.0 H Lymphocytes % (Manual) 0 L Monocytes % (Manual) Nucleated RBC % 8.0 H Seg Neutrophils # Man 12.4 H Lymphocytes # (Manual) 0.0 L Monocytes # (Manual) PT INR D-Dimer POC ABG pH POC ABG pCO2 POC ABG pO2 Sodium Potassium 5.9 H Chloride 93.0 L Carbon Dioxide 16 L D BUN 28 H Creatinine 2.8 H Glucose 617 H* POC Glucose > 500 H Hemoglobin A1c Lactic Acid Calcium 6.2 L Magnesium Total Bilirubin Direct Bilirubin AST ALT Alkaline Phosphatase Total Creatine Kinase CK-MB (CK-2) Troponin T NT-Pro-B Natriuret Pep Total Protein Albumin Triglycerides LDL Cholesterol Direct HDL Cholesterol Urine WBC (Auto) Crossmatch 03/02/19 03/02/19 03/02/19 04:20 05:04 05:25 WBC RBC Hgb Hct MCHC RDW Plt Count Seg Neuts % (Manual) Lymphocytes % (Manual) Monocytes % (Manual) Nucleated RBC % Seg Neutrophils # Man Lymphocytes # (Manual) Monocytes # (Manual) PT INR D-Dimer POC ABG pH POC ABG pCO2 33.8 L POC ABG pO2 Sodium 132 L Potassium Chloride 85.5 L Carbon Dioxide 21 L BUN 27 H Creatinine 2.8 H Glucose 928 H* POC Glucose > 500 H Hemoglobin A1c Lactic Acid Calcium 6.1 L Magnesium Total Bilirubin 2.00 H Direct Bilirubin AST 7855 H ALT 2210 H Alkaline Phosphatase 238 H Total Creatine Kinase CK-MB (CK-2) Troponin T 13.790 H* D NT-Pro-B Natriuret Pep Total Protein 4.0 L Albumin 1.7 L Triglycerides LDL Cholesterol Direct HDL Cholesterol Urine WBC (Auto) Crossmatch 03/02/19 03/02/19 03/02/19 09:11 10:10 11:19 WBC RBC Hgb Hct MCHC RDW Plt Count Seg Neuts % (Manual) Lymphocytes % (Manual) Monocytes % (Manual) Nucleated RBC % Seg Neutrophils # Man Lymphocytes # (Manual) Monocytes # (Manual) PT INR D-Dimer POC ABG pH POC ABG pCO2 POC ABG pO2 Sodium Potassium Chloride Carbon Dioxide BUN Creatinine Glucose POC Glucose 494 H > 500 H 413 H Hemoglobin A1c Lactic Acid Calcium Magnesium Total Bilirubin Direct Bilirubin AST ALT Alkaline Phosphatase Total Creatine Kinase CK-MB (CK-2) Troponin T NT-Pro-B Natriuret Pep Total Protein Albumin Triglycerides LDL Cholesterol Direct HDL Cholesterol Urine WBC (Auto) Crossmatch 03/02/19 03/02/19 03/02/19 12:05 13:00 14:00 WBC RBC Hgb Hct MCHC RDW Plt Count Seg Neuts % (Manual) Lymphocytes % (Manual) Monocytes % (Manual) Nucleated RBC % Seg Neutrophils # Man Lymphocytes # (Manual) Monocytes # (Manual) PT INR D-Dimer POC ABG pH POC ABG pCO2 POC ABG pO2 Sodium Potassium Chloride Carbon Dioxide BUN Creatinine Glucose POC Glucose 400 H 391 H 415 H Hemoglobin A1c Lactic Acid Calcium Magnesium Total Bilirubin Direct Bilirubin AST ALT Alkaline Phosphatase Total Creatine Kinase CK-MB (CK-2) Troponin T NT-Pro-B Natriuret Pep Total Protein Albumin Triglycerides LDL Cholesterol Direct HDL Cholesterol Urine WBC (Auto) Crossmatch 03/02/19 03/02/19 03/02/19 15:12 16:14 17:13 WBC RBC Hgb 8.0 L Hct 24.7 L MCHC RDW Plt Count Seg Neuts % (Manual) Lymphocytes % (Manual) Monocytes % (Manual) Nucleated RBC % Seg Neutrophils # Man Lymphocytes # (Manual) Monocytes # (Manual) PT INR D-Dimer POC ABG pH POC ABG pCO2 POC ABG pO2 Sodium Potassium Chloride Carbon Dioxide BUN Creatinine Glucose POC Glucose 405 H 395 H Hemoglobin A1c Lactic Acid Calcium Magnesium Total Bilirubin Direct Bilirubin AST ALT Alkaline Phosphatase Total Creatine Kinase CK-MB (CK-2) Troponin T NT-Pro-B Natriuret Pep Total Protein Albumin Triglycerides LDL Cholesterol Direct HDL Cholesterol Urine WBC (Auto) Crossmatch 03/02/19 03/02/19 03/02/19 17:13 17:16 17:30 WBC RBC Hgb Hct MCHC RDW Plt Count Seg Neuts % (Manual) Lymphocytes % (Manual) Monocytes % (Manual) Nucleated RBC % Seg Neutrophils # Man Lymphocytes # (Manual) Monocytes # (Manual) PT INR D-Dimer POC ABG pH POC ABG pCO2 POC ABG pO2 Sodium Potassium Chloride 94.8 L Carbon Dioxide 21 L BUN 34 H Creatinine 3.2 H Glucose 358 H POC Glucose 357 H Hemoglobin A1c Lactic Acid 7.90 H* Calcium 5.9 L* Magnesium Total Bilirubin Direct Bilirubin AST ALT Alkaline Phosphatase Total Creatine Kinase CK-MB (CK-2) Troponin T NT-Pro-B Natriuret Pep Total Protein Albumin Triglycerides LDL Cholesterol Direct HDL Cholesterol Urine WBC (Auto) Crossmatch 03/02/19 03/02/19 03/02/19 18:12 19:31 20:29 WBC RBC Hgb Hct MCHC RDW Plt Count Seg Neuts % (Manual) Lymphocytes % (Manual) Monocytes % (Manual) Nucleated RBC % Seg Neutrophils # Man Lymphocytes # (Manual) Monocytes # (Manual) PT INR D-Dimer POC ABG pH POC ABG pCO2 POC ABG pO2 Sodium Potassium Chloride Carbon Dioxide BUN Creatinine Glucose POC Glucose 270 H 263 H Hemoglobin A1c Lactic Acid Calcium Magnesium Total Bilirubin Direct Bilirubin AST ALT Alkaline Phosphatase Total Creatine Kinase CK-MB (CK-2) Troponin T NT-Pro-B Natriuret Pep Total Protein Albumin Triglycerides LDL Cholesterol Direct HDL Cholesterol Urine WBC (Auto) 17.0 H Crossmatch 03/02/19 03/02/19 03/02/19 20:37 21:08 21:36 WBC RBC Hgb Hct MCHC RDW Plt Count Seg Neuts % (Manual) Lymphocytes % (Manual) Monocytes % (Manual) Nucleated RBC % Seg Neutrophils # Man Lymphocytes # (Manual) Monocytes # (Manual) PT INR D-Dimer POC ABG pH POC ABG pCO2 POC ABG pO2 Sodium Potassium Chloride Carbon Dioxide BUN Creatinine Glucose POC Glucose 270 H 262 H Hemoglobin A1c Lactic Acid 8.60 H* Calcium Magnesium Total Bilirubin Direct Bilirubin AST ALT Alkaline Phosphatase Total Creatine Kinase CK-MB (CK-2) Troponin T NT-Pro-B Natriuret Pep Total Protein Albumin Triglycerides LDL Cholesterol Direct HDL Cholesterol Urine WBC (Auto) Crossmatch 03/02/19 03/02/19 03/03/19 22:07 23:09 00:02 WBC RBC Hgb Hct MCHC RDW Plt Count Seg Neuts % (Manual) Lymphocytes % (Manual) Monocytes % (Manual) Nucleated RBC % Seg Neutrophils # Man Lymphocytes # (Manual) Monocytes # (Manual) PT INR D-Dimer POC ABG pH POC ABG pCO2 POC ABG pO2 Sodium Potassium Chloride Carbon Dioxide BUN Creatinine Glucose POC Glucose 252 H 230 H 159 H Hemoglobin A1c Lactic Acid Calcium Magnesium Total Bilirubin Direct Bilirubin AST ALT Alkaline Phosphatase Total Creatine Kinase CK-MB (CK-2) Troponin T NT-Pro-B Natriuret Pep Total Protein Albumin Triglycerides LDL Cholesterol Direct HDL Cholesterol Urine WBC (Auto) Crossmatch 03/03/19 03/03/19 03/03/19 00:45 00:45 00:45 WBC RBC Hgb 6.3 L Hct 19.8 L* MCHC RDW Plt Count Seg Neuts % (Manual) Lymphocytes % (Manual) Monocytes % (Manual) Nucleated RBC % Seg Neutrophils # Man Lymphocytes # (Manual) Monocytes # (Manual) PT INR D-Dimer POC ABG pH POC ABG pCO2 POC ABG pO2 Sodium Potassium 2.9 L* D Chloride 110.4 H Carbon Dioxide 16 L BUN 27 H Creatinine 2.7 H Glucose 156 H POC Glucose Hemoglobin A1c Lactic Acid 4.90 H* Calcium 4.6 L* D Magnesium Total Bilirubin Direct Bilirubin AST ALT Alkaline Phosphatase Total Creatine Kinase CK-MB (CK-2) Troponin T NT-Pro-B Natriuret Pep Total Protein Albumin Triglycerides LDL Cholesterol Direct HDL Cholesterol Urine WBC (Auto) Crossmatch 03/03/19 03/03/19 03/03/19 01:10 02:04 03:07 WBC RBC Hgb Hct MCHC RDW Plt Count Seg Neuts % (Manual) Lymphocytes % (Manual) Monocytes % (Manual) Nucleated RBC % Seg Neutrophils # Man Lymphocytes # (Manual) Monocytes # (Manual) PT INR D-Dimer POC ABG pH POC ABG pCO2 POC ABG pO2 Sodium Potassium Chloride Carbon Dioxide BUN Creatinine Glucose POC Glucose 189 H 214 H 160 H Hemoglobin A1c Lactic Acid Calcium Magnesium Total Bilirubin Direct Bilirubin AST ALT Alkaline Phosphatase Total Creatine Kinase CK-MB (CK-2) Troponin T NT-Pro-B Natriuret Pep Total Protein Albumin Triglycerides LDL Cholesterol Direct HDL Cholesterol Urine WBC (Auto) Crossmatch 03/03/19 03/03/19 03/03/19 04:10 04:52 05:20 WBC RBC Hgb Hct MCHC RDW Plt Count Seg Neuts % (Manual) Lymphocytes % (Manual) Monocytes % (Manual) Nucleated RBC % Seg Neutrophils # Man Lymphocytes # (Manual) Monocytes # (Manual) PT INR D-Dimer POC ABG pH POC ABG pCO2 34.7 L POC ABG pO2 51 L Sodium Potassium Chloride Carbon Dioxide BUN Creatinine Glucose POC Glucose 142 H 142 H Hemoglobin A1c Lactic Acid Calcium Magnesium Total Bilirubin Direct Bilirubin AST ALT Alkaline Phosphatase Total Creatine Kinase CK-MB (CK-2) Troponin T NT-Pro-B Natriuret Pep Total Protein Albumin Triglycerides LDL Cholesterol Direct HDL Cholesterol Urine WBC (Auto) Crossmatch 03/03/19 03/03/19 03/03/19 06:06 06:50 08:01 WBC RBC Hgb Hct MCHC RDW Plt Count Seg Neuts % (Manual) Lymphocytes % (Manual) Monocytes % (Manual) Nucleated RBC % Seg Neutrophils # Man Lymphocytes # (Manual) Monocytes # (Manual) PT INR D-Dimer POC ABG pH POC ABG pCO2 POC ABG pO2 Sodium Potassium Chloride Carbon Dioxide BUN Creatinine Glucose POC Glucose 127 H 131 H 137 H Hemoglobin A1c Lactic Acid Calcium Magnesium Total Bilirubin Direct Bilirubin AST ALT Alkaline Phosphatase Total Creatine Kinase CK-MB (CK-2) Troponin T NT-Pro-B Natriuret Pep Total Protein Albumin Triglycerides LDL Cholesterol Direct HDL Cholesterol Urine WBC (Auto) Crossmatch 03/03/19 03/03/19 03/03/19 08:30 08:30 08:30 WBC 14.0 H RBC 3.52 L Hgb 9.9 L D Hct 29.8 L D MCHC RDW 16.6 H Plt Count Seg Neuts % (Manual) 92.0 H Lymphocytes % (Manual) 5.0 L Monocytes % (Manual) Nucleated RBC % 13.0 H Seg Neutrophils # Man 0.0 L Lymphocytes # (Manual) 0.0 L Monocytes # (Manual) PT INR D-Dimer POC ABG pH POC ABG pCO2 POC ABG pO2 Sodium Potassium 5.3 H D Chloride Carbon Dioxide BUN 38 H Creatinine 4.0 H Glucose 135 H POC Glucose Hemoglobin A1c Lactic Acid 4.00 H* Calcium 6.8 L D Magnesium 1.60 L Total Bilirubin 1.30 H Direct Bilirubin AST 4012 H ALT 1793 H Alkaline Phosphatase 259 H Total Creatine Kinase CK-MB (CK-2) Troponin T NT-Pro-B Natriuret Pep Total Protein 4.6 L Albumin 2.0 L Triglycerides LDL Cholesterol Direct HDL Cholesterol Urine WBC (Auto) Crossmatch 03/03/19 03/03/19 03/03/19 09:03 10:17 11:15 WBC RBC Hgb Hct MCHC RDW Plt Count Seg Neuts % (Manual) Lymphocytes % (Manual) Monocytes % (Manual) Nucleated RBC % Seg Neutrophils # Man Lymphocytes # (Manual) Monocytes # (Manual) PT INR D-Dimer POC ABG pH POC ABG pCO2 POC ABG pO2 Sodium Potassium Chloride Carbon Dioxide BUN Creatinine Glucose POC Glucose 108 H 113 H 126 H Hemoglobin A1c Lactic Acid Calcium Magnesium Total Bilirubin Direct Bilirubin AST ALT Alkaline Phosphatase Total Creatine Kinase CK-MB (CK-2) Troponin T NT-Pro-B Natriuret Pep Total Protein Albumin Triglycerides LDL Cholesterol Direct HDL Cholesterol Urine WBC (Auto) Crossmatch 03/03/19 03/03/19 03/03/19 13:38 17:02 20:41 WBC RBC Hgb Hct MCHC RDW Plt Count Seg Neuts % (Manual) Lymphocytes % (Manual) Monocytes % (Manual) Nucleated RBC % Seg Neutrophils # Man Lymphocytes # (Manual) Monocytes # (Manual) PT INR D-Dimer > 19858 H POC ABG pH POC ABG pCO2 POC ABG pO2 Sodium Potassium Chloride Carbon Dioxide BUN Creatinine Glucose POC Glucose 195 H 195 H Hemoglobin A1c Lactic Acid Calcium Magnesium Total Bilirubin Direct Bilirubin AST ALT Alkaline Phosphatase Total Creatine Kinase CK-MB (CK-2) Troponin T NT-Pro-B Natriuret Pep Total Protein Albumin Triglycerides LDL Cholesterol Direct HDL Cholesterol Urine WBC (Auto) Crossmatch 03/03/19 03/04/19 03/04/19 23:48 04:32 05:15 WBC RBC Hgb Hct MCHC RDW Plt Count Seg Neuts % (Manual) Lymphocytes % (Manual) Monocytes % (Manual) Nucleated RBC % Seg Neutrophils # Man Lymphocytes # (Manual) Monocytes # (Manual) PT INR D-Dimer POC ABG pH POC ABG pCO2 POC ABG pO2 Sodium Potassium 5.8 H Chloride 96.2 L Carbon Dioxide BUN 46 H Creatinine 4.6 H Glucose 253 H POC Glucose 206 H 248 H Hemoglobin A1c Lactic Acid Calcium 6.5 L Magnesium Total Bilirubin 1.30 H Direct Bilirubin AST 1662 H ALT 1186 H Alkaline Phosphatase 250 H Total Creatine Kinase CK-MB (CK-2) Troponin T NT-Pro-B Natriuret Pep Total Protein 4.3 L Albumin 1.7 L Triglycerides LDL Cholesterol Direct HDL Cholesterol Urine WBC (Auto) Crossmatch 03/04/19 03/04/19 03/04/19 05:15 05:15 07:55 WBC RBC Hgb 9.2 L Hct 28.0 L MCHC RDW Plt Count 123 L Seg Neuts % (Manual) Lymphocytes % (Manual) Monocytes % (Manual) Nucleated RBC % Seg Neutrophils # Man Lymphocytes # (Manual) Monocytes # (Manual) PT INR D-Dimer POC ABG pH POC ABG pCO2 POC ABG pO2 Sodium Potassium Chloride Carbon Dioxide BUN Creatinine Glucose POC Glucose 264 H Hemoglobin A1c Lactic Acid 3.40 H* Calcium Magnesium Total Bilirubin Direct Bilirubin AST ALT Alkaline Phosphatase Total Creatine Kinase CK-MB (CK-2) Troponin T NT-Pro-B Natriuret Pep Total Protein Albumin Triglycerides LDL Cholesterol Direct HDL Cholesterol Urine WBC (Auto) Crossmatch 03/04/19 08:08 WBC RBC Hgb Hct MCHC RDW Plt Count Seg Neuts % (Manual) Lymphocytes % (Manual) Monocytes % (Manual) Nucleated RBC % Seg Neutrophils # Man Lymphocytes # (Manual) Monocytes # (Manual) PT INR D-Dimer POC ABG pH POC ABG pCO2 POC ABG pO2 Sodium Potassium Chloride Carbon Dioxide BUN Creatinine Glucose POC Glucose Hemoglobin A1c Lactic Acid 3.50 H* Calcium Magnesium Total Bilirubin Direct Bilirubin AST ALT Alkaline Phosphatase Total Creatine Kinase CK-MB (CK-2) Troponin T NT-Pro-B Natriuret Pep Total Protein Albumin Triglycerides LDL Cholesterol Direct HDL Cholesterol Urine WBC (Auto) Crossmatch Allied health notes reviewed: nursing
--- NOTE | 2019-03-04 09:16 | Progress Note ---
Assessment and Plan - Patient Problems (1) GERALDINE (acute kidney injury) Current Visit: Yes Status: Acute Plan to address problem: Likely in the setting of ischemic acute tubular necrosis secondary to cardiac arrest and an NSTEMI. Continue current supportive care. We decreased IV fluids to normal saline at 42 mL an hour. Unfortunately minimal response with diuresis at this time. Patient is a poor candidate for aggressive renal measures such as dialysis given her overall poor overall neurologic status. Pending family meeting today per nursing staff. (2) NSTEMI (non-ST elevated myocardial infarction) Current Visit: Yes Status: Acute Plan to address problem: Further management per cardiology recommendations. Heparin drip has been discontinued at this time secondary to her level of anemia. We'll continue to monitor. Elevated cardiac enzymes noted during morning labs. (3) Encephalopathy acute Current Visit: Yes Status: Acute Plan to address problem: Currently intubated at this time. Remains unresponsive, with CT concerning for cerebllar infarct. Patient is too unstable for follow up MRI as she went into PEA after CT head yesterday. Neurology has been consulted and pending nuclear brain imaging today. She has no cerebellar reflexes at this time. Pending family meeting. (4) Hyperkalemia Current Visit: Yes Status: Acute Plan to address problem: In the setting of hyperglycemia/poorly controlled DM and GERALDINE. Will order dose of kayexulate that can be given for potassium control. (5) Hyperosmolar non-ketotic state in patient with type 2 diabetes mellitus Current Visit: Yes Status: Acute Plan to address problem: Management per primary attending. Patient continues on insulin drip at this time. (6) Hyponatremia Current Visit: Yes Status: Acute Plan to address problem: Likely in the setting of hyperglycemia. Will monitor. (7) Sepsis Current Visit: Yes Status: Suspected Qualifiers: Sepsis type: sepsis due to unspecified organism Qualified Code(s): A41.9 - Sepsis, unspecified organism Plan to address problem: Unclear etiology, possible underlying UTI vs right gangrenous toe, await culture results. Antibiotics to be dosed per her decreased renal clearance. (8) Peripheral vascular disease Current Visit: Yes Status: Chronic Plan to address problem: s/p fasciotomy in the setting of developing acute compartment syndrome post thrombolysis. Management per vascular surgery. Status post debridement of RLE wound earlier during this admission Subjective Date of service: 03/04/19 Principal diagnosis: anemia Interval history: Remains unresponsive. She has no gag, corneal reflexes, and no response to painful stimuli. Pending family meeting today. Objective - Vital Signs Vital signs: Vital Signs - 12hr 03/03/19 03/03/19 03/03/19 21:15 21:30 21:45 Temperature Pulse Rate 94 H 94 H 94 H Pulse Rate [ Anterior Bilateral Throughout] Pulse Rate [ From Monitor] Respiratory 20 20 19 Rate Respiratory Rate [Anterior Bilateral Throughout] Blood Pressure 105/53 103/53 103/57 O2 Sat by Pulse 100 100 100 Oximetry 03/03/19 03/03/19 03/03/19 22:00 22:15 22:30 Temperature Pulse Rate 94 H 93 H 93 H Pulse Rate [ Anterior Bilateral Throughout] Pulse Rate [ From Monitor] Respiratory 20 20 20 Rate Respiratory Rate [Anterior Bilateral Throughout] Blood Pressure 109/50 99/53 100/53 O2 Sat by Pulse 100 100 100 Oximetry 03/03/19 03/03/19 03/03/19 22:45 22:58 23:00 Temperature Pulse Rate 93 H 92 H Pulse Rate [ Anterior Bilateral Throughout] Pulse Rate [ From Monitor] Respiratory 20 20 Rate Respiratory Rate [Anterior Bilateral Throughout] Blood Pressure 101/53 100/55 99/47 O2 Sat by Pulse 100 100 100 Oximetry 03/03/19 03/03/19 03/03/19 23:15 23:30 23:45 Temperature Pulse Rate 92 H 92 H 91 H Pulse Rate [ Anterior Bilateral Throughout] Pulse Rate [ From Monitor] Respiratory 20 20 20 Rate Respiratory Rate [Anterior Bilateral Throughout] Blood Pressure 98/53 97/51 98/54 O2 Sat by Pulse 100 100 100 Oximetry 03/04/19 03/04/19 03/04/19 00:00 00:15 00:30 Temperature 98.7 F Pulse Rate 91 H 91 H 91 H Pulse Rate [ Anterior Bilateral Throughout] Pulse Rate [ 91 H From Monitor] Respiratory 20 20 20 Rate Respiratory Rate [Anterior Bilateral Throughout] Blood Pressure 102/49 98/49 100/51 O2 Sat by Pulse 100 100 100 Oximetry 03/04/19 03/04/19 03/04/19 00:45 01:00 01:15 Temperature Pulse Rate 91 H 90 90 Pulse Rate [ Anterior Bilateral Throughout] Pulse Rate [ From Monitor] Respiratory 20 20 20 Rate Respiratory Rate [Anterior Bilateral Throughout] Blood Pressure 98/50 98/52 97/50 O2 Sat by Pulse 100 100 100 Oximetry 03/04/19 03/04/19 03/04/19 01:30 01:45 02:00 Temperature Pulse Rate 90 90 90 Pulse Rate [ Anterior Bilateral Throughout] Pulse Rate [ From Monitor] Respiratory 20 22 20 Rate Respiratory Rate [Anterior Bilateral Throughout] Blood Pressure 101/49 101/47 101/47 O2 Sat by Pulse 100 100 100 Oximetry 03/04/19 03/04/19 03/04/19 02:15 02:30 02:45 Temperature Pulse Rate 90 92 H 92 H Pulse Rate [ Anterior Bilateral Throughout] Pulse Rate [ From Monitor] Respiratory 20 20 20 Rate Respiratory Rate [Anterior Bilateral Throughout] Blood Pressure 93/51 101/53 101/50 O2 Sat by Pulse 100 100 100 Oximetry 03/04/19 03/04/19 03/04/19 03:00 03:15 03:30 Temperature Pulse Rate 92 H 87 86 Pulse Rate [ Anterior Bilateral Throughout] Pulse Rate [ From Monitor] Respiratory 20 19 20 Rate Respiratory Rate [Anterior Bilateral Throughout] Blood Pressure 102/49 102/49 99/43 O2 Sat by Pulse 100 100 Oximetry 03/04/19 03/04/19 03/04/19 03:45 04:00 04:15 Temperature 98.4 F Pulse Rate 92 H 94 H 94 H Pulse Rate [ 97 H Anterior Bilateral Throughout] Pulse Rate [ 88 From Monitor] Respiratory 16 18 20 Rate Respiratory 20 Rate [Anterior Bilateral Throughout] Blood Pressure 90/44 98/53 93/49 O2 Sat by Pulse 100 100 100 Oximetry 03/04/19 03/04/19 03/04/19 04:30 04:45 05:00 Temperature Pulse Rate 93 H 93 H 92 H Pulse Rate [ Anterior Bilateral Throughout] Pulse Rate [ From Monitor] Respiratory 20 18 17 Rate Respiratory Rate [Anterior Bilateral Throughout] Blood Pressure 95/46 93/48 95/47 O2 Sat by Pulse 100 100 100 Oximetry 03/04/19 03/04/19 03/04/19 05:15 05:30 05:45 Temperature Pulse Rate 95 H 89 88 Pulse Rate [ Anterior Bilateral Throughout] Pulse Rate [ From Monitor] Respiratory 18 20 20 Rate Respiratory Rate [Anterior Bilateral Throughout] Blood Pressure 89/49 97/48 96/49 O2 Sat by Pulse 100 100 100 Oximetry 03/04/19 03/04/19 03/04/19 06:00 06:15 06:30 Temperature Pulse Rate 87 89 90 Pulse Rate [ Anterior Bilateral Throughout] Pulse Rate [ From Monitor] Respiratory 20 20 19 Rate Respiratory Rate [Anterior Bilateral Throughout] Blood Pressure 95/43 108/53 106/54 O2 Sat by Pulse 100 100 100 Oximetry 03/04/19 03/04/19 03/04/19 06:45 07:00 07:15 Temperature Pulse Rate 90 90 91 H Pulse Rate [ Anterior Bilateral Throughout] Pulse Rate [ From Monitor] Respiratory 19 20 18 Rate Respiratory Rate [Anterior Bilateral Throughout] Blood Pressure 106/53 106/53 102/50 O2 Sat by Pulse 100 100 100 Oximetry 03/04/19 03/04/19 03/04/19 07:30 07:45 08:00 Temperature 98.7 F Pulse Rate 90 91 H 91 H Pulse Rate [ Anterior Bilateral Throughout] Pulse Rate [ 91 H From Monitor] Respiratory 18 19 20 Rate Respiratory Rate [Anterior Bilateral Throughout] Blood Pressure 98/49 104/44 100/46 O2 Sat by Pulse 100 100 100 Oximetry 03/04/19 03/04/19 03/04/19 08:15 08:39 08:46 Temperature Pulse Rate 91 H 91 H Pulse Rate [ 91 H Anterior Bilateral Throughout] Pulse Rate [ From Monitor] Respiratory 20 Rate Respiratory 20 Rate [Anterior Bilateral Throughout] Blood Pressure 102/44 106/55 O2 Sat by Pulse 100 200 H Oximetry - General Appearance General appearance: chronically ill, intubated, frail EENT: ATNC Neck: no JVD Respiratory: Present: Decreased Breath Sounds Cardiology: regular, S1S2 Gastrointestinal: normoactive bowel sounds Integumentary: warm and dry Neurologic: other (completely unresponsive off sedation, poor brainstem reflexes, no response to painful stimuli at this time. ) - Lab 03/04/19 05:15 03/04/19 05:15 Most recent lab results Calcium 6.5 mg/dL (8.4-10.2) L 03/04/19 05:15 Phosphorus 4.50 mg/dL (2.5-4.5) 03/03/19 08:30 Magnesium 1.60 mg/dL (1.7-2.3) L 03/03/19 08:30 - Imaging Chest x-ray: report reviewed Other: report reviewed - Allied health notes Allied health notes reviewed: nursing Medications & Allergies - Medications Allergies/Adverse Reactions: Allergies No Known Allergies Allergy (Verified 01/28/19 21:26) Home Medications: Home Medications Medication Instructions Recorded Confirmed Last Taken Type Aspirin [Low Dose Aspirin EC] 81 mg PO DAILY #30 tablet. 02/04/19 02/16/19 02/14/19 10:00 Rx Clopidogrel [Plavix] 75 mg PO QDAY #30 tablet 02/04/19 02/16/19 02/14/19 10:00 Rx Lispro Insulin [Humalog] 0 unit SUB-Q ACHS units 02/20/19 Unknown Rx Lispro Insulin [Humalog] 5 unit SUB-Q AC 30 Days units 02/20/19 Unknown Rx Multivitamin with Iron [Tab-A-Lupe 1 each PO DAILY #30 tablet 02/20/19 Unknown Rx with Iron] Valsartan [Diovan] 160 mg PO BID #60 tablet 02/20/19 Unknown Rx oxyCODONE /ACETAMINOPHEN [Percocet 1 tab PO Q6H PRN #20 tablet 02/20/19 Unknown Rx 5/325 mg] Insulin Glargine [Lantus VIAL] 22 units SUB-Q DAILY #1 vial 02/25/19 Unknown Rx Insulin Lispro [HumaLOG VIAL] 0 units SQ AC #1 vial 02/25/19 Unknown Rx Active Medications: Generic Name Dose Route Start Last Admin Trade Name Freq PRN Reason Stop Dose Admin Acetaminophen 650 mg 02/13/19 18:03 Tylenol PO Q4H PRN Pain MILD(1-3)/Fever >100.5/MARTÍNEZ Albuterol 2.5 mg 02/22/19 04:53 02/28/19 16:08 Proventil IH 2.5 mg Q6HRT PRN Administration Shortness Of Breath Albuterol/Ipratropium 1 ampul 02/28/19 16:45 03/04/19 08:45 Duoneb *Not For Prn Use* IH 1 ampul Q6HRT RAFAEL Administration Aspirin 325 mg 02/28/19 19:00 03/03/19 09:37 Aspirin PO 325 mg QDAY RAFAEL Administration Dextrose 50 ml 03/02/19 08:04 D50w (25gm) Syringe IV PRN PRN Hypoglycemia Fentanyl 50 mcg 02/28/19 21:01 Sublimaze IV Q10MIN PRN ANALGESIA Furosemide 80 mg 03/03/19 10:00 03/04/19 06:02 Lasix IV 80 mg 0600,1800 RAFAEL Administration Hydralazine HCl 10 mg 03/02/19 15:28 Apresoline IV Q4HR PRN BP >180/110 Hydrophilic Ointment 1 applic 02/28/19 21:29 Vaseline Lip Therapy TP Q2HR PRN Dry Lips Fentanyl Citrate 2,000 mcg in 100 mls @ 5.665 mls/hr 02/28/19 22:00 03/01/19 00:46 Fentanyl Drip Premix IV 0 mcg/kg/hr TITR RAFAEL 0 mls/hr Titration Protocol 1 MCG/KG/HR Norepinephrine 4 mg in 250 mls @ 7.5 mls/hr 03/01/19 03:00 03/04/19 08:18 Levophed Drip 4 Mg/Ns 250 Ml IV 16 mcg/min TITR RAFAEL 60 mls/hr Titration Protocol 2 MCG/MIN Dopamine HCl/Dextrose 800 mg in 250 mls @ 4.249 mls/hr 03/01/19 01:35 03/02/19 00:13 Intropin Drip 800 Mg/D5w 250 Ml IV 0 mcg/kg/min TITR RAFAEL 0 mls/hr Titration Protocol 2 MCG/KG/MIN Cefepime HCl 2 gm in 100 mls @ 200 mls/hr 03/01/19 20:00 03/03/19 09:37 Maxipime/Ns 2 Gm/100 Ml IV 200 mls/hr Q24HR RAFAEL Administration Protocol Sodium Chloride 1,000 mls @ 42 mls/hr 03/02/19 10:00 03/03/19 17:16 Nacl 0.9% 1000 Ml IV 42 mls/hr DIRECT RAFAEL Administration Calcium Gluconate 2,000 mg/ 120 mls @ 660 mls/hr 03/04/19 08:47 Sodium Chloride IV 03/04/19 08:57 ONCE ONE Insulin Glargine 15 units 03/04/19 10:00 Lantus SUB-Q DAILY [facility] Insulin Human Lispro 0 unit 03/03/19 12:00 03/04/19 08:03 Humalog SUB-Q 6 unit Q4H RAFAEL Administration Protocol Multi-Ingred Cream/Lotion/Oil/Oint 1 applic 03/03/19 10:39 03/03/19 11:07 Artificial Tears Ophth Oint OU 1 applic PRN PRN Administration Dry Eye(s) Ondansetron HCl 4 mg 02/13/19 18:03 Zofran IV Q8H PRN Nausea And Vomiting Pantoprazole Sodium 40 mg 03/02/19 22:00 03/03/19 21:00 Protonix IV 40 mg BID RAFAEL Administration Sodium Chloride 10 ml 02/13/19 22:00 03/03/19 21:01 Sodium Chloride Flush Syringe 10 Ml IV 10 ml BID RAFAEL Administration Sodium Chloride 10 ml 02/13/19 18:03 Sodium Chloride Flush Syringe 10 Ml IV PRN PRN LINE FLUSH
[2019-03-04] MEDS: ASPIRIN PO SCH (10:19)
[2019-03-04] MEDS: PROTONIX IV SCH ×2 (10:19→22:28)
[2019-03-04] MEDS: SODIUM CHLORIDE FLUSH SYRINGE 10 ML IV SCH ×2 (10:20→22:28)
[2019-03-04] MEDS: MAXIPIME/NS 2 GM/100 ML 2 GM/100 ML BAG IV SCH (10:20)
[2019-03-04] MEDS ORDERED: CALCIUM GLUCONATE 2,000 MG in NACL 0.9% 100 ML IV ONE (11:00)
[2019-03-04] MEDS ORDERED: KIONEX PO ONE (11:00)
[2019-03-04] MEDS ORDERED: DOBUTREX DRIP 500MG/D5W 250ML 500 MG/250 ML BAG IV SCH (11:00)
--- NOTE | 2019-03-04 11:13 | Progress Note ---
Assessment and Plan Cont supportive measures, vasopressor support. Overall poor prognosis. The patient has been seen in conjunction with Dr. Bhakta who agrees with the assessment and plan of care. - Patient Problems (1) Cardiopulmonary arrest with successful resuscitation Current Visit: Yes Status: Acute (2) Acute HFrEF (heart failure with reduced ejection fraction) Current Visit: Yes Status: Acute (3) NSTEMI (non-ST elevated myocardial infarction) Current Visit: Yes Status: Acute (4) Acute respiratory failure Current Visit: Yes Status: Acute (5) GERALDINE (acute kidney injury) Current Visit: Yes Status: Acute (6) Hyperkalemia Current Visit: Yes Status: Acute (7) Sepsis Current Visit: Yes Status: Suspected Qualifiers: Sepsis type: sepsis due to unspecified organism Qualified Code(s): A41.9 - Sepsis, unspecified organism (8) Severe anemia Current Visit: Yes Status: Acute (9) Peripheral vascular disease Current Visit: Yes Status: Chronic (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 Objective Last Vital Signs Temp 98.7 F 03/04/19 08:00 Pulse 93 H 03/04/19 09:04 Resp 21 03/04/19 09:04 BP 106/55 03/04/19 08:39 Pulse Ox 200 H 03/04/19 08:39 - Physical Examination General: Other (intubated, nonresponsive) Cardiac: Positive: Reg Rate and Rhythm, S1/S2 Lungs: Positive: Decreased Breath Sounds, Ventilated Respirations Neuro: Positive: Other (intubated, nonresponsive) Skin: Positive: Other (RLE gangrene). Negative: Rash Extremities: Present: +2 Edema (RLE > LLE) - Labs and Meds Cardiac Enzymes 03/04/19 Range/Units 05:15 AST 1662 H (5-40) units/L CBC 03/04/19 Range/Units 05:15 Hgb 9.2 L (10.1-14.3) gm/dl Hct 28.0 L (30.3-42.9) % Plt Count 123 L (140-440) K/mm3 Comprehensive Metabolic Panel 03/04/19 Range/Units 05:15 Sodium 137 (137-145) mmol/L Potassium 5.8 H (3.6-5.0) mmol/L Chloride 96.2 L (98-107) mmol/L Carbon Dioxide 22 (22-30) mmol/L BUN 46 H (7-17) mg/dL Creatinine 4.6 H (0.7-1.2) mg/dL Glucose 253 H (65-100) mg/dL Calcium 6.5 L (8.4-10.2) mg/dL AST 1662 H (5-40) units/L ALT 1186 H (7-56) units/L Alkaline Phosphatase 250 H (35-129) units/L Total Protein 4.3 L (6.3-8.2) g/dL Albumin 1.7 L (3.9-5) g/dL - Imaging and Cardiology EKG: report reviewed, image reviewed Echo: report reviewed (03/01/2019: EF 25-30%, apical septal and apical lateral wall segments are akinetic. 02/14/2019 showed EF 55-60%, mild LVH, mild with peak gradient 24 and mean 11, mild AR. ) - Telemetry EKG Rhythm: Sinus Rhythm - EKG Sinus rhythms and dysrhythmias: sinus rhythm - Allied health notes Allied health notes reviewed: nursing
--- NOTE | 2019-03-04 11:14 | Progress Note ---
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 CT head; no acute findings CXR no acute findings Labs; UA > 182 WBC Micro; urine and blood growing ecoli sens to current abx Diagnosis sepsis, ecoli Bactermia and Ecoli UTI PNA? Acute hypoxic respiratory failure anemia, likely due to chronic disease and critical illness HHNK, Type 2 DM, A1c 9 Hyponatremia, likely pseudohyponatremia of hyperglycemia Hyperkalemia GERALDINE- likely ATN Hypomagesemia- resolved PAD hx of RLE ischemia, sp thrombolysis, revascularization and fascitomy dry gangrene, R second toe Rhabdomylsis, non traumatic acute metabolic encephalopathy Fluid overload Acute cva MN Anoxic encephalopathy Acute kidney injury due to ATN Shock liver/transaminitis Distributive shock Plan * UTI/bacteremia; The patient had sepsis due to Escherichia coli bacteremia and Escherichia coli UTI. She completed a course of antibiotics for that on 02/20 * The patient had some necrotic tissue on her right leg, she was seen by vascular surgery, status post debridement of right leg on 02/20, necrotic tissue was removed. 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 Imaging showed infiltrates, she received Lasix after which infiltrate completely resolved. Therefore it was due to vascular congestion, pneumonia was at that time ruled out. VQ scan and lower extremity Dopplers were negative which at that time excluded VTE. Her respiratory status was improving, she was being weaned off oxygen. Echo showed preserved EF * She initially presented with severe hyperglycemia, she was treated with insulin and IV fluids, she was put on bolus and basal insulin and her sugars improved * She had hypomagnesemia, and if her magnesium was repleted. She also had elevated potassium for which she received single dose of Kayexalate on 02/17 * The patient was improving and was planned for rehabilitation placement, but unfortunately she had a decline * received multiple units of pr she had anemia, bc, first unit on 02/18, then had another drop in hct after code blue on 03/01 after which she got another 3 units, ; seen by GI, they did not suspect acute GI bleed. * 02/28, she developed chest pain or shortness of breath, put on anticoagulation, was being seen by cardiology for possible MN, as PE was again suspected, anticoagulation was later discontinued due to anemia * 03/01, she became pulseless, [facility] was called, she received CPR, had ROSC was then intubated and sedated, but per her family was only moving her right side at that time, she was on pressors and was too unstable to go to CT scan * 03/02, the patient was more stable, therefore she was taking for CT scan which confirmed subacute cerebral stroke, at this time the patient was now completely obtunded, not responsive to painful stimuli, and only had a gag reflex, fixed pupils and absence of most reflexes. Stroke protocol place, neurology consult placed. Patient already on aspirin, unable to tolerate statins due to markedly elevated LFTs, this is most likely due to shock liver, the patient remains pressor dependent * 03/03, the patient now has no reflexes, no gag reflex, no corneal reflex. Prognosis is very poor at this time, family meeting planned for tomorrow. Nuclear medicine brain flow scan ordered. * 03/04, brain flow scan unequivocal, minimal blood flow, dw neurolgy, plan for EEG, had family meeting and discussed goals of care, advance directives and prognosis, time spent was 60 minutes, repleted calcium * Prognosis for recovery is poor, this was dw family CCT 33 minutes History Interval history: The patient is obtunded, intubated, not on sedation No vomiting, no seizures, no agitation. Patient has been nonresponsive Hospitalist Physical - Physical exam Narrative exam: General.: Obtunded, appears ill HEENT: Corneal edema noted Neck: supple Cardiac: S1-S2 heard Lungs: Ventilated breath sounds Abdomen: soft , nontender, nondistended, bowel sounds positive Extremities: Bilateral lower extremity bandages noted, bandages to right lower extremity when not removed on my exam Skin: no rash or lesions Neurologic: The patient does not open her eyes, does not move any extremities, does not respond to painful stimuli, she lacks any brainstem reflexes, gag reflex absence - Constitutional Vitals: Temp Pulse Resp BP Pulse Ox 98.7 F 93 H 21 106/55 200 H 03/04/19 08:00 03/04/19 09:04 03/04/19 09:04 03/04/19 08:39 03/04/19 08:39 General appearance: Present: other (intubated, nonresponsive, off sedation ) Results - Labs CBC & Chem 7: 03/04/19 05:15 03/05/19 10:34 Labs: Laboratory Last Values WBC 14.0 K/mm3 (4.5-11.0) H 03/03/19 08:30 RBC 3.52 M/mm3 (3.65-5.03) L 03/03/19 08:30 Hgb 9.2 gm/dl (10.1-14.3) L 03/04/19 05:15 Hct 28.0 % (30.3-42.9) L 03/04/19 05:15 MCV 85 fl (79-97) 03/03/19 08:30 MCH 28 pg (28-32) 03/03/19 08:30 MCHC 33 % (30-34) 03/03/19 08:30 RDW 16.6 % (13.2-15.2) H 03/03/19 08:30 Plt Count 123 K/mm3 (140-440) L 03/04/19 05:15 Lymph % (Auto) [employer] 02/17/19 10:41 [place] % (Auto) [employer] [address] [employer] 02/17/19 10:41 Eos % (Auto) [employer] [address] [employer] 02/17/19 10:41 Baso % (Auto) [employer] [address] [employer] 02/17/19 10:41 Lymph # [employer] [address] [employer] 02/17/19 10:41 [place] # [employer] [address] [employer] 02/17/19 10:41 Eos # [employer] [address] [employer] 02/17/19 10:41 Baso # [employer] [address] Forms 02/17/19 10:41 Add Manual Diff Complete 03/03/19 08:30 Total Counted 100 03/03/19 08:30 Seg Neutrophils % [employer] 02/17/19 10:41 Seg Neuts % (Manual) 92.0 % (40.0-70.0) H 03/03/19 08:30 Band Neutrophils % 0 % 03/03/19 08:30 Lymphocytes % (Manual) 5.0 % (13.4-35.0) L 03/03/19 08:30 Reactive Lymphs % (Man) 0 % 03/03/19 08:30 Monocytes % (Manual) 1.0 % (0.0-7.3) 03/03/19 08:30 Eosinophils % (Manual) 0 % (0.0-4.3) 03/03/19 08:30 Basophils % (Manual) 0 % (0.0-1.8) 03/03/19 08:30 Metamyelocytes % 1.0 % 03/03/19 08:30 Myelocytes % 1.0 % 03/03/19 08:30 Promyelocytes % 0 % 03/03/19 08:30 Blast Cells % 0 % 03/03/19 08:30 Nucleated RBC % 13.0 % (0.0-0.9) H 03/03/19 08:30 Seg Neutrophils # [employer] [address] Forms 02/17/19 10:41 Seg Neutrophils # Man 0.0 K/mm3 (1.8-7.7) L 03/03/19 08:30 Band Neutrophils # 0.0 K/mm3 03/03/19 08:30 Lymphocytes # (Manual) 0.0 K/mm3 (1.2-5.4) L 03/03/19 08:30 Abs React Lymphs (Man) 0.0 K/mm3 03/03/19 08:30 Monocytes # (Manual) 0.0 K/mm3 (0.0-0.8) 03/03/19 08:30 Eosinophils # (Manual) 0.0 K/mm3 (0.0-0.4) 03/03/19 08:30 Basophils # (Manual) 0.0 K/mm3 (0.0-0.1) 03/03/19 08:30 Metamyelocytes # 0.0 K/mm3 03/03/19 08:30 Myelocytes # 0.0 K/mm3 03/03/19 08:30 Promyelocytes # 0.0 K/mm3 03/03/19 08:30 Blast Cells # 0.0 K/mm3 03/03/19 08:30 WBC Morphology Not Reportable 03/03/19 08:30 Hypersegmented Neuts Not Reportable 03/03/19 08:30 Hyposegmented Neuts Not Reportable 03/03/19 08:30 Hypogranular Neuts Not Reportable 03/03/19 08:30 Smudge Cells Not Reportable 03/03/19 08:30 Toxic Granulation Not Reportable 03/03/19 08:30 Toxic Vacuolation Not Reportable 03/03/19 08:30 Dohle Bodies Not Reportable 03/03/19 08:30 Pelger-Huet Anomaly Not Reportable 03/03/19 08:30 Cisco Rods Not Reportable 03/03/19 08:30 Platelet Estimate Consistent w auto 03/03/19 08:30 Clumped Platelets Not Reportable 03/03/19 08:30 Plt Clumps, EDTA Not Reportable 03/03/19 08:30 Large Platelets Few 03/03/19 08:30 Giant Platelets Not Reportable 03/03/19 08:30 Platelet Satelliting Not Reportable 03/03/19 08:30 Plt Morphology Comment Not Reportable 03/03/19 08:30 RBC Morphology Not Reportable 03/03/19 08:30 Dimorphic RBCs Not Reportable 03/03/19 08:30 Polychromasia Not Reportable 03/03/19 08:30 Hypochromasia Not Reportable 03/03/19 08:30 Poikilocytosis Not Reportable 03/03/19 08:30 Anisocytosis 1+ 03/03/19 08:30 Microcytosis Not Reportable 03/03/19 08:30 Macrocytosis Not Reportable 03/03/19 08:30 Spherocytes Not Reportable 03/03/19 08:30 Pappenheimer Bodies Not Reportable 03/03/19 08:30 Sickle Cells Not Reportable 03/03/19 08:30 Target Cells Not Reportable 03/03/19 08:30 Tear Drop Cells Not Reportable 03/03/19 08:30 Ovalocytes Not Reportable 03/03/19 08:30 Helmet Cells Not Reportable 03/03/19 08:30 Starkey-Elsinore Bodies Not Reportable 03/03/19 08:30 [place] Rings Not Reportable 03/03/19 08:30 Amma Cells Not Reportable 03/03/19 08:30 Bite Cells Not Reportable 03/03/19 08:30 Crenated Cell Not Reportable 03/03/19 08:30 Elliptocytes Not Reportable 03/03/19 08:30 Acanthocytes (Spur) Not Reportable 03/03/19 08:30 Rouleaux Not Reportable 03/03/19 08:30 Hemoglobin C Crystals Not Reportable 03/03/19 08:30 Schistocytes Not Reportable 03/03/19 08:30 Malaria parasites Not Reportable 03/03/19 08:30 Augsuto Bodies Not Reportable 03/03/19 08:30 Hem Pathologist Commnt No 03/03/19 08:30 PT 15.5 Sec. (12.2-14.9) H 02/28/19 18:33 INR 1.16 (0.87-1.13) H 02/28/19 18:33 APTT 29.5 Sec. (24.2-36.6) 02/28/19 18:33 Fibrinogen 333 mg/dl (211-480) 03/03/19 13:38 D-Dimer > 48664 ng/mlDDU (0-234) H 03/03/19 13:38 Heparin Anti-Xa Level 0.42 U.I./ml (0.3-0.7) 03/01/19 00:48 POC ABG pH 7.380 (7.35-7.45) 03/04/19 05:20 POC ABG pCO2 37.4 (35-45) 03/04/19 05:20 POC ABG pO2 51 (80-105) L 03/03/19 04:52 POC ABG HCO3 22.1 (22-26 mml/L) 03/04/19 05:20 POC ABG Total CO2 23 (23-27mmol/L) 03/04/19 05:20 POC ABG O2 Sat 78 03/04/19 05:20 POC ABG Base Excess -3 ((-2) - (+3)mmol/L) 03/04/19 05:20 VBG pH 7.379 (7.320-7.420) 02/13/19 14:08 FiO2 60 % 03/04/19 05:20 Sodium 137 mmol/L (137-145) 03/04/19 05:15 Potassium 5.8 mmol/L (3.6-5.0) H 03/04/19 05:15 Chloride 96.2 mmol/L (98-107) L 03/04/19 05:15 Carbon Dioxide 22 mmol/L (22-30) 03/04/19 05:15 Anion Gap 25 mmol/L 03/04/19 05:15 BUN 46 mg/dL (7-17) H 03/04/19 05:15 Creatinine 4.6 mg/dL (0.7-1.2) H 03/04/19 05:15 Estimated GFR 12 ml/min 03/04/19 05:15 BUN/Creatinine Ratio 10 % 03/04/19 05:15 Glucose 253 mg/dL (65-100) H 03/04/19 05:15 POC Glucose 264 (70-105) H 03/04/19 07:55 Hemoglobin A1c 9.2 % (4-6) H 02/13/19 18:15 Ketones Quantitative Negative (Negative) 02/13/19 14:08 Lactic Acid 3.50 mmol/L (0.7-2.0) H* 03/04/19 08:08 Calcium 6.5 mg/dL (8.4-10.2) L 03/04/19 05:15 Phosphorus 4.50 mg/dL (2.5-4.5) 03/03/19 08:30 Magnesium 1.60 mg/dL (1.7-2.3) L 03/03/19 08:30 Total Bilirubin 1.30 mg/dL (0.1-1.2) H 03/04/19 05:15 Direct Bilirubin 1.1 mg/dL (0-0.2) H 02/13/19 14:08 Indirect Bilirubin 0.4 mg/dL 02/13/19 14:08 AST 1662 units/L (5-40) H 03/04/19 05:15 ALT 1186 units/L (7-56) H 03/04/19 05:15 Alkaline Phosphatase 250 units/L (35-129) H 03/04/19 05:15 Ammonia 40.0 umol/L (25-60) 02/13/19 14:15 Total Creatine Kinase 165 units/L (30-135) H 02/28/19 18:33 CK-MB (CK-2) 4.9 ng/mL (0.0-4.0) H 02/28/19 18:33 CK-MB (CK-2) Rel Index 2.9 (0-4) 02/28/19 18:33 Troponin T 13.790 ng/mL (0.00-0.029) H* D 03/02/19 04:20 NT-Pro-B Natriuret Pep 6167 pg/mL (0-900) H 02/13/19 14:15 Total Protein 4.3 g/dL (6.3-8.2) L 03/04/19 05:15 Albumin 1.7 g/dL (3.9-5) L 03/04/19 05:15 Albumin/Globulin Ratio 0.7 % 03/04/19 05:15 Triglycerides 329 mg/dL (2-149) H 02/13/19 14:20 Cholesterol 159 mg/dL (50-199) 02/13/19 14:20 LDL Cholesterol Direct 36 mg/dL (50-130) L 02/13/19 14:20 HDL Cholesterol 17 mg/dL (40-59) L 02/13/19 14:20 Cholesterol/HDL Ratio 9.35 % 02/13/19 14:20 Amylase 34 units/L (27-131) 03/01/19 00:48 Urine Color Steffi (Yellow) 03/02/19 20:29 Urine Turbidity Slightly-cloudy (Clear) 03/02/19 20:29 Urine pH 6.0 (5.0-7.0) 03/02/19 20:29 Ur Specific [place] 1.011 (1.003-1.030) 03/02/19 20:29 Urine Protein 100 mg/dl mg/dL (Negative) 03/02/19 20:29 Urine Glucose (UA) 50 mg/dL (Negative) 03/02/19 20:29 Urine Ketones Neg mg/dL (Negative) 03/02/19 20:29 Urine Blood Lg (Negative) 03/02/19 20:29 Urine Nitrite Neg (Negative) 03/02/19 20:29 Urine Bilirubin Neg (Negative) 03/02/19 20:29 Urine Urobilinogen < 2.0 mg/dL (<2.0) 03/02/19 20:29 Ur Leukocyte Esterase Mod (Negative) 03/02/19 20:29 Urine WBC (Auto) 17.0 /HPF (0.0-6.0) H 03/02/19 20:29 Urine RBC (Auto) 29.0 /HPF (0.0-6.0) 03/02/19 20:29 U Epithel Cells (Auto) 1.0 /HPF (0-13.0) 02/14/19 09:07 Urine Bacteria (Auto) 2+ /HPF (Negative) 03/02/19 20:29 Urine WBC Clumps 3+ /HPF 02/14/19 09:07 Ur Transition Epith Cell 1 /HPF 02/14/19 09:07 Urine Mucus Few /HPF 02/14/19 09:07 Urine Yeast (Budding) 3+ /HPF 03/02/19 20:29 Urine Eosinophils None seen (None Seen) 03/01/19 06:50 Vancomycin Trough 14.5 ug/mL (5.0-20.0) 02/15/19 05:32 Random Vancomycin 22.7 ug/mL (0-40.0) 03/04/19 05:15 Urine Opiates Screen Presumptive negative 02/14/19 09:07 Urine Methadone Screen Presumptive negative 02/14/19 09:07 Ur Barbiturates Screen Presumptive negative 02/14/19 09:07 Ur Phencyclidine Scrn Presumptive negative 02/14/19 09:07 Ur Amphetamines Screen Presumptive negative 02/14/19 09:07 U Benzodiazepines Scrn Presumptive negative 02/14/19 09:07 Urine Cocaine Screen Presumptive negative 02/14/19 09:07 U Marijuana (THC) Screen Presumptive negative 02/14/19 09:07 Drugs of Abuse Note Disclamer 02/14/19 09:07 Blood Type B POSITIVE 03/01/19 07:30 Antibody Screen Negative 03/01/19 07:30 Crossmatch See Detail 03/01/19 07:30 Active Medications - Current Medications Current Medications: Generic Name Dose Route Start Last Admin Trade Name Freq PRN Reason Stop Dose Admin Acetaminophen 650 mg 02/13/19 18:03 Tylenol PO Q4H PRN Pain MILD(1-3)/Fever >100.5/MARTÍNEZ Albuterol 2.5 mg 02/22/19 04:53 02/28/19 16:08 Proventil IH 2.5 mg Q6HRT PRN Administration Shortness Of Breath Albuterol/Ipratropium 1 ampul 02/28/19 16:45 03/04/19 08:45 Duoneb *Not For Prn Use* IH 1 ampul Q6HRT RAFAEL Administration Aspirin 325 mg 02/28/19 19:00 03/04/19 10:19 Aspirin PO 325 mg QDAY RAFAEL Administration Dextrose 50 ml 03/02/19 08:04 D50w (25gm) Syringe IV PRN PRN Hypoglycemia Fentanyl 50 mcg 02/28/19 21:01 Sublimaze IV Q10MIN PRN ANALGESIA Furosemide 80 mg 03/03/19 10:00 03/04/19 06:02 Lasix IV 80 mg 0600,1800 RAFAEL Administration Hydralazine HCl 10 mg 03/02/19 15:28 Apresoline IV Q4HR PRN BP >180/110 Hydrophilic Ointment 1 applic 02/28/19 21:29 Vaseline Lip Therapy TP Q2HR PRN Dry Lips Fentanyl Citrate 2,000 mcg in 100 mls @ 5.665 mls/hr 02/28/19 22:00 03/01/19 00:46 Fentanyl Drip Premix IV 0 mcg/kg/hr TITR RAFAEL 0 mls/hr Titration Protocol 1 MCG/KG/HR Norepinephrine 4 mg in 250 mls @ 7.5 mls/hr 03/01/19 03:00 03/04/19 08:18 Levophed Drip 4 Mg/Ns 250 Ml IV 16 mcg/min TITR RAFAEL 60 mls/hr Titration Protocol 2 MCG/MIN Dopamine HCl/Dextrose 800 mg in 250 mls @ 4.249 mls/hr 03/01/19 01:35 03/02/19 00:13 Intropin Drip 800 Mg/D5w 250 Ml IV 0 mcg/kg/min TITR RAFAEL 0 mls/hr Titration Protocol 2 MCG/KG/MIN Cefepime HCl 2 gm in 100 mls @ 200 mls/hr 03/01/19 20:00 03/04/19 10:20 Maxipime/Ns 2 Gm/100 Ml IV 200 mls/hr Q24HR RAFAEL Administration Protocol Sodium Chloride 1,000 mls @ 42 mls/hr 03/02/19 10:00 03/03/19 17:16 Nacl 0.9% 1000 Ml IV 42 mls/hr DIRECT RAFAEL Administration Dobutamine HCl/Dextrose 500 mg in 250 mls @ 16.995 mls/hr 03/04/19 11:00 03/04/19 10:37 Dobutrex Drip 500mg/D5w 250ml IV 5 mcg/kg/min DIRECT RAFAEL 16.995 mls/hr Infusion 5 MCG/KG/MIN Insulin Glargine 15 units 03/04/19 10:00 Lantus SUB-Q DAILY RAFAEL Insulin Human Lispro 0 unit 03/03/19 12:00 03/04/19 08:03 Humalog SUB-Q 6 unit Q4H RAFAEL Administration Protocol Multi-Ingred Cream/Lotion/Oil/Oint 1 applic 03/03/19 10:39 03/03/19 11:07 Artificial Tears Ophth Oint OU 1 applic PRN PRN Administration Dry Eye(s) Ondansetron HCl 4 mg 02/13/19 18:03 Zofran IV Q8H PRN Nausea And Vomiting Pantoprazole Sodium 40 mg 03/02/19 22:00 03/04/19 10:19 Protonix IV 40 mg BID RAFAEL Administration Sodium Chloride 10 ml 02/13/19 22:00 03/04/19 10:20 Sodium Chloride Flush Syringe 10 Ml IV 10 ml BID RAFAEL Administration Sodium Chloride 10 ml 02/13/19 18:03 Sodium Chloride Flush Syringe 10 Ml IV PRN PRN LINE FLUSH Nutrition/Malnutrition Assess - Dietary Evaluation Nutrition/Malnutrition Findings: Nutrition Notes Start: 02/19/19 14:33 Freq: Status: Active Protocol: Document 02/19/19 14:34 RM (Rec: 02/19/19 14:34 RM [id number]) Nutrition Notes Need for Assessment generated from: LOS Initial or Follow up Brief Note Height 5 ft 3 in Weight 110.03 kg [place] Body Weight (kg) 52.27 BMI 43.0 Subjective/Other Information Screened for LOS. PO intake 85% X 2 days. Nutrition Intervention Revisit per MD consult or patient Sign Off request:
--- NOTE | 2019-03-04 12:41 | Nuclear Medicine Report ---
Nuclear brain flow study: Following injection of radionuclide into the right arm activity is identified in the right carotid but not in the left carotid artery. Imaging over the cerebral hemispheres demonstrates a low level of activity that may all represent skin flow however a low level of cerebral activity is difficult to absolutely exclude. These findings have been discussed with Dr. Cristobal. Impression: Equivocal brain flow study. Correlation with clinical findings recommended.
--- NOTE | 2019-03-04 14:29 | Progress Note ---
Assessment and Plan 58 year old female with history of diabetes, hypertension, and peripheral vascular disease, suffered a cardiac arrest on 03/01, now with renal, hepatic injury, on insulin drip, and pressor agents. Reviewed the patient's CT in the radiology dept. There is a clear stroke in the left cerebellar hemisphere and one also in rt. hemisphere. The left occipital stroke is not as clear. Nevertheless the pt. is continuing with multiple organ failure. Echo last night reveals EF of 25% and diffuse wall motion abnormalities. The strokes appear to be cardioembolic. All cultures remain neg. thus far. D-dimer markedly elevated, fibrinogen normal Hgb has been stable. 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 A nuclear medicine blood flow study was performed this a.m. and reveals no flow through the left carotid. Minimal flow in right carotid and possible minimal cortical blood flow, but this could be compatible with skin blood flow. Attended family meeting, examined pt., and went back to describe the neurologic exam which shows absence of brain stem function. I answered further questions that the family had. I mentioned to them that I would obtain an EEG in order to determine if there is cortical function. They are trying to come together to discuss what the patient would have wanted in this situation. I told them that I would be available all day and to ask the nurses to call me if they have any further questions and that I would let them know the results of the EEG as soon as I get it. They realize that this is a dismal prognosis. Plan - EEG Continue supportive care. Subjective Date of service: 03/04/19 Principal diagnosis: anemia Interval history: The pt is a 58 female who is intubated and nonresponsive. Pt was sent from rehab facility on 02/13/2019 for confusion and lethargy, recently admitted and had had arterial thrombolysis to [facility] for RLE ischemia, and R leg 4 compartment fasciotomy on 01/[address] Jeong. On 03/01/19 she started having shortness for breath and was transfered to ICU and subsequently intubated. Following intubation, she developed asystole and CODE blue called. Pt noted to have severe anemia, lactic acidosis, hyperkalemia, ARF, elevated LFTs, hypothermia, RLE gangrene, CXR with pulm edema. A NSTEMI occurred and CT brain was performed and revealed bilateral cerebellar infarcts as well as one in the left occipital lobe. The pt. has been too unstable to undergo MRI scan. 03/04/2019 - The pt. remains unresponsive on the ventilator. No new events over the last 24 hours. Objective - Exam Narrative Exam: General - Unresponsive, on ventilator, no sedation. Pressors in place. 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 When manually opened, they are yoked. Pupils - 5 mm on rt.and non reactive. Left - 5 mm nonreactive. Corneal reflexes - absent bilaterally. Doll's eyes absent Cold water calorics performed both ears - no response Face appears symmetric. No gag response to deep suctioning. Motor - no spontaneous movement. No movement to deep pain. Reflexes - absent Sensory - no response to deep painful stimuli. - Vital Sign Vital Signs - 12hr 03/04/19 03/04/19 03/04/19 02:30 02:45 03:00 Temperature Pulse Rate 92 H 92 H 92 H Pulse Rate [ Anterior Bilateral Throughout] Pulse Rate [ From Monitor] Respiratory 20 20 20 Rate Respiratory Rate [Anterior Bilateral Throughout] Blood Pressure 101/53 101/50 102/49 O2 Sat by Pulse 100 100 100 Oximetry 03/04/19 03/04/19 03/04/19 03:15 03:30 03:45 Temperature Pulse Rate 87 86 92 H Pulse Rate [ Anterior Bilateral Throughout] Pulse Rate [ From Monitor] Respiratory 19 20 16 Rate Respiratory Rate [Anterior Bilateral Throughout] Blood Pressure 102/49 99/43 90/44 O2 Sat by Pulse 100 100 Oximetry 03/04/19 03/04/19 03/04/19 04:00 04:15 04:30 Temperature 98.4 F Pulse Rate 94 H 94 H 93 H Pulse Rate [ 97 H Anterior Bilateral Throughout] Pulse Rate [ 88 From Monitor] Respiratory 18 20 20 Rate Respiratory 20 Rate [Anterior Bilateral Throughout] Blood Pressure 98/53 93/49 95/46 O2 Sat by Pulse 100 100 100 Oximetry 03/04/19 03/04/19 03/04/19 04:45 05:00 05:15 Temperature Pulse Rate 93 H 92 H 95 H Pulse Rate [ Anterior Bilateral Throughout] Pulse Rate [ From Monitor] Respiratory 18 17 18 Rate Respiratory Rate [Anterior Bilateral Throughout] Blood Pressure 93/48 95/47 89/49 O2 Sat by Pulse 100 100 100 Oximetry 03/04/19 03/04/19 03/04/19 05:30 05:45 06:00 Temperature Pulse Rate 89 88 87 Pulse Rate [ Anterior Bilateral Throughout] Pulse Rate [ From Monitor] Respiratory 20 20 20 Rate Respiratory Rate [Anterior Bilateral Throughout] Blood Pressure 97/48 96/49 95/43 O2 Sat by Pulse 100 100 100 Oximetry 03/04/19 03/04/19 03/04/19 06:15 06:30 06:45 Temperature Pulse Rate 89 90 90 Pulse Rate [ Anterior Bilateral Throughout] Pulse Rate [ From Monitor] Respiratory 20 19 19 Rate Respiratory Rate [Anterior Bilateral Throughout] Blood Pressure 108/53 106/54 106/53 O2 Sat by Pulse 100 100 100 Oximetry 03/04/19 03/04/19 03/04/19 07:00 07:15 07:30 Temperature Pulse Rate 90 91 H 90 Pulse Rate [ Anterior Bilateral Throughout] Pulse Rate [ From Monitor] Respiratory 20 18 18 Rate Respiratory Rate [Anterior Bilateral Throughout] Blood Pressure 106/53 102/50 98/49 O2 Sat by Pulse 100 100 100 Oximetry 03/04/19 03/04/19 03/04/19 07:45 08:00 08:12 Temperature 98.7 F Pulse Rate 91 H 91 H 100 H Pulse Rate [ Anterior Bilateral Throughout] Pulse Rate [ 91 H From Monitor] Respiratory 19 20 Rate Respiratory Rate [Anterior Bilateral Throughout] Blood Pressure 104/44 100/46 O2 Sat by Pulse 100 100 Oximetry 03/04/19 03/04/19 03/04/19 08:15 08:30 08:39 Temperature Pulse Rate 91 H 91 H 91 H Pulse Rate [ Anterior Bilateral Throughout] Pulse Rate [ From Monitor] Respiratory 20 20 Rate Respiratory Rate [Anterior Bilateral Throughout] Blood Pressure 102/44 106/55 106/55 O2 Sat by Pulse 100 100 100 Oximetry 03/04/19 03/04/19 03/04/19 08:45 08:46 09:00 Temperature Pulse Rate 91 H 92 H Pulse Rate [ 91 H Anterior Bilateral Throughout] Pulse Rate [ From Monitor] Respiratory 20 20 Rate Respiratory 20 Rate [Anterior Bilateral Throughout] Blood Pressure 107/49 111/52 O2 Sat by Pulse 100 100 Oximetry 03/04/19 03/04/19 03/04/19 09:04 09:15 09:30 Temperature Pulse Rate 93 H 93 H Pulse Rate [ 93 H Anterior Bilateral Throughout] Pulse Rate [ From Monitor] Respiratory 20 19 Rate Respiratory 21 Rate [Anterior Bilateral Throughout] Blood Pressure 105/50 107/52 O2 Sat by Pulse 100 100 Oximetry 03/04/19 03/04/19 03/04/19 09:45 10:00 10:15 Temperature Pulse Rate 93 H 103 H 104 H Pulse Rate [ Anterior Bilateral Throughout] Pulse Rate [ From Monitor] Respiratory 20 20 20 Rate Respiratory Rate [Anterior Bilateral Throughout] Blood Pressure 104/46 104/46 99/52 O2 Sat by Pulse 99 100 100 Oximetry 03/04/19 03/04/19 03/04/19 10:30 11:17 11:30 Temperature Pulse Rate 97 H 109 H 111 H Pulse Rate [ Anterior Bilateral Throughout] Pulse Rate [ From Monitor] Respiratory 20 20 20 Rate Respiratory Rate [Anterior Bilateral Throughout] Blood Pressure 104/55 93/47 96/50 O2 Sat by Pulse 99 99 100 Oximetry 03/04/19 03/04/19 03/04/19 11:45 12:00 12:15 Temperature 98.3 F Pulse Rate 110 H 110 H 110 H Pulse Rate [ Anterior Bilateral Throughout] Pulse Rate [ 111 H From Monitor] Respiratory 20 20 20 Rate Respiratory Rate [Anterior Bilateral Throughout] Blood Pressure 99/48 100/48 98/52 O2 Sat by Pulse 100 100 100 Oximetry 03/04/19 03/04/19 03/04/19 12:21 12:30 12:45 Temperature Pulse Rate 110 H 111 H 111 H Pulse Rate [ Anterior Bilateral Throughout] Pulse Rate [ From Monitor] Respiratory 20 20 Rate Respiratory Rate [Anterior Bilateral Throughout] Blood Pressure 98/52 97/51 96/49 O2 Sat by Pulse 100 100 99 Oximetry 03/04/19 03/04/19 13:00 13:15 Temperature Pulse Rate 110 H 110 H Pulse Rate [ Anterior Bilateral Throughout] Pulse Rate [ From Monitor] Respiratory 19 19 Rate Respiratory Rate [Anterior Bilateral Throughout] Blood Pressure 98/47 98/52 O2 Sat by Pulse 99 100 Oximetry - Laboratory Findings CBC and BMP: 03/04/19 05:15 03/04/19 05:15 Abnormal Lab Findings: Abnormal Labs 02/13/19 02/13/19 02/13/19 13:55 14:08 14:08 WBC 21.3 H RBC 3.00 L Hgb 8.5 L Hct 26.7 L MCHC RDW 16.4 H Plt Count 528 H Seg Neuts % (Manual) 89.0 H Lymphocytes % (Manual) 4.0 L Monocytes % (Manual) Nucleated RBC % 2.0 H Seg Neutrophils # Man 19.0 H Lymphocytes # (Manual) 0.9 L Monocytes # (Manual) PT INR D-Dimer POC ABG pH POC ABG pCO2 POC ABG pO2 Sodium 129 L Potassium 5.4 H Chloride 91.8 L Carbon Dioxide 17 L BUN 52 H Creatinine 2.5 H Glucose 402 H POC Glucose 389 H Hemoglobin A1c Lactic Acid Calcium Magnesium Total Bilirubin 1.50 H Direct Bilirubin 1.1 H AST 61 H ALT Alkaline Phosphatase 271 H Total Creatine Kinase CK-MB (CK-2) Troponin T NT-Pro-B Natriuret Pep Total Protein Albumin 2.3 L Triglycerides LDL Cholesterol Direct HDL Cholesterol Urine WBC (Auto) Crossmatch 02/13/19 02/13/19 02/13/19 14:15 14:15 14:20 WBC RBC Hgb Hct MCHC RDW Plt Count Seg Neuts % (Manual) Lymphocytes % (Manual) Monocytes % (Manual) Nucleated RBC % Seg Neutrophils # Man Lymphocytes # (Manual) Monocytes # (Manual) PT 15.6 H INR 1.17 H D-Dimer POC ABG pH POC ABG pCO2 POC ABG pO2 Sodium Potassium Chloride Carbon Dioxide BUN Creatinine Glucose POC Glucose Hemoglobin A1c Lactic Acid Calcium Magnesium 1.60 L Total Bilirubin Direct Bilirubin AST ALT Alkaline Phosphatase Total Creatine Kinase 1295 H CK-MB (CK-2) Troponin T 0.072 H NT-Pro-B Natriuret Pep 6167 H Total Protein Albumin Triglycerides 329 H LDL Cholesterol Direct 36 L HDL Cholesterol 17 L Urine WBC (Auto) Crossmatch 02/13/19 02/13/19 02/13/19 15:36 18:15 20:59 WBC RBC Hgb Hct MCHC RDW Plt Count Seg Neuts % (Manual) Lymphocytes % (Manual) Monocytes % (Manual) Nucleated RBC % Seg Neutrophils # Man Lymphocytes # (Manual) Monocytes # (Manual) PT INR D-Dimer POC ABG pH POC ABG pCO2 POC ABG pO2 Sodium Potassium Chloride Carbon Dioxide BUN Creatinine Glucose POC Glucose 293 H 390 H Hemoglobin A1c 9.2 H Lactic Acid Calcium Magnesium Total Bilirubin Direct Bilirubin AST ALT Alkaline Phosphatase Total Creatine Kinase CK-MB (CK-2) Troponin T NT-Pro-B Natriuret Pep Total Protein Albumin Triglycerides LDL Cholesterol Direct HDL Cholesterol Urine WBC (Auto) Crossmatch 02/14/19 02/14/19 02/14/19 07:45 08:15 08:15 WBC 23.2 H RBC 2.89 L Hgb 8.3 L Hct 25.3 L MCHC RDW 16.6 H Plt Count 457 H Seg Neuts % (Manual) 91.0 H Lymphocytes % (Manual) 3.0 L Monocytes % (Manual) Nucleated RBC % Seg Neutrophils # Man 21.1 H Lymphocytes # (Manual) 0.7 L Monocytes # (Manual) 1.2 H PT INR D-Dimer POC ABG pH POC ABG pCO2 POC ABG pO2 Sodium 126 L Potassium 5.3 H Chloride 91.5 L Carbon Dioxide 17 L BUN 65 H Creatinine 2.4 H Glucose 418 H POC Glucose Hemoglobin A1c Lactic Acid Calcium 8.2 L Magnesium 2.90 H Total Bilirubin 1.60 H Direct Bilirubin AST 47 H ALT Alkaline Phosphatase 218 H Total Creatine Kinase CK-MB (CK-2) Troponin T NT-Pro-B Natriuret Pep Total Protein 6.2 L Albumin 2.2 L Triglycerides LDL Cholesterol Direct HDL Cholesterol Urine WBC (Auto) Crossmatch 02/14/19 02/14/19 02/14/19 09:07 09:30 18:53 WBC RBC Hgb Hct MCHC RDW Plt Count Seg Neuts % (Manual) Lymphocytes % (Manual) Monocytes % (Manual) Nucleated RBC % Seg Neutrophils # Man Lymphocytes # (Manual) Monocytes # (Manual) PT INR D-Dimer POC ABG pH POC ABG pCO2 POC ABG pO2 Sodium Potassium Chloride Carbon Dioxide BUN Creatinine Glucose POC Glucose 384 H 353 H Hemoglobin A1c Lactic Acid Calcium Magnesium Total Bilirubin Direct Bilirubin AST ALT Alkaline Phosphatase Total Creatine Kinase CK-MB (CK-2) Troponin T NT-Pro-B Natriuret Pep Total Protein Albumin Triglycerides LDL Cholesterol Direct HDL Cholesterol Urine WBC (Auto) > 182.0 H Crossmatch 02/14/19 02/14/19 02/15/19 21:33 21:40 01:45 WBC RBC Hgb Hct MCHC RDW Plt Count Seg Neuts % (Manual) Lymphocytes % (Manual) Monocytes % (Manual) Nucleated RBC % Seg Neutrophils # Man Lymphocytes # (Manual) Monocytes # (Manual) PT INR D-Dimer POC ABG pH POC ABG pCO2 POC ABG pO2 Sodium Potassium Chloride Carbon Dioxide BUN Creatinine Glucose POC Glucose 404 H 360 H 299 H Hemoglobin A1c Lactic Acid Calcium Magnesium Total Bilirubin Direct Bilirubin AST ALT Alkaline Phosphatase Total Creatine Kinase CK-MB (CK-2) Troponin T NT-Pro-B Natriuret Pep Total Protein Albumin Triglycerides LDL Cholesterol Direct HDL Cholesterol Urine WBC (Auto) Crossmatch 02/15/19 02/15/19 02/15/19 05:32 05:38 11:35 WBC RBC Hgb Hct MCHC RDW Plt Count Seg Neuts % (Manual) Lymphocytes % (Manual) Monocytes % (Manual) Nucleated RBC % Seg Neutrophils # Man Lymphocytes # (Manual) Monocytes # (Manual) PT INR D-Dimer POC ABG pH POC ABG pCO2 POC ABG pO2 Sodium Potassium Chloride Carbon Dioxide BUN Creatinine Glucose POC Glucose 402 H 393 H Hemoglobin A1c Lactic Acid Calcium Magnesium 2.80 H Total Bilirubin Direct Bilirubin AST ALT Alkaline Phosphatase Total Creatine Kinase 448 H CK-MB (CK-2) Troponin T NT-Pro-B Natriuret Pep Total Protein Albumin Triglycerides LDL Cholesterol Direct HDL Cholesterol Urine WBC (Auto) Crossmatch 02/15/19 02/15/19 02/15/19 14:15 14:48 17:21 WBC RBC Hgb Hct MCHC RDW Plt Count Seg Neuts % (Manual) Lymphocytes % (Manual) Monocytes % (Manual) Nucleated RBC % Seg Neutrophils # Man Lymphocytes # (Manual) Monocytes # (Manual) PT INR D-Dimer POC ABG pH POC ABG pCO2 POC ABG pO2 Sodium 128 L Potassium Chloride 92.4 L Carbon Dioxide 21 L BUN 86 H Creatinine 1.9 H Glucose 436 H POC Glucose 386 H 347 H Hemoglobin A1c Lactic Acid Calcium 8.1 L Magnesium Total Bilirubin Direct Bilirubin AST ALT Alkaline Phosphatase Total Creatine Kinase CK-MB (CK-2) Troponin T NT-Pro-B Natriuret Pep Total Protein Albumin Triglycerides LDL Cholesterol Direct HDL Cholesterol Urine WBC (Auto) Crossmatch 02/15/19 02/15/19 02/16/19 22:32 23:51 04:08 WBC RBC Hgb Hct MCHC RDW Plt Count Seg Neuts % (Manual) Lymphocytes % (Manual) Monocytes % (Manual) Nucleated RBC % Seg Neutrophils # Man Lymphocytes # (Manual) Monocytes # (Manual) PT INR D-Dimer POC ABG pH POC ABG pCO2 POC ABG pO2 Sodium Potassium Chloride Carbon Dioxide BUN Creatinine Glucose POC Glucose 272 H 244 H 253 H Hemoglobin A1c Lactic Acid Calcium Magnesium Total Bilirubin Direct Bilirubin AST ALT Alkaline Phosphatase Total Creatine Kinase CK-MB (CK-2) Troponin T NT-Pro-B Natriuret Pep Total Protein Albumin Triglycerides LDL Cholesterol Direct HDL Cholesterol Urine WBC (Auto) Crossmatch 02/16/19 02/16/19 02/16/19 05:29 08:52 11:55 WBC RBC Hgb Hct MCHC RDW Plt Count Seg Neuts % (Manual) Lymphocytes % (Manual) Monocytes % (Manual) Nucleated RBC % Seg Neutrophils # Man Lymphocytes # (Manual) Monocytes # (Manual) PT INR D-Dimer POC ABG pH POC ABG pCO2 POC ABG pO2 Sodium Potassium Chloride Carbon Dioxide BUN Creatinine Glucose POC Glucose 262 H 313 H Hemoglobin A1c Lactic Acid Calcium Magnesium Total Bilirubin Direct Bilirubin AST ALT Alkaline Phosphatase Total Creatine Kinase 200 H CK-MB (CK-2) Troponin T NT-Pro-B Natriuret Pep Total Protein Albumin Triglycerides LDL Cholesterol Direct HDL Cholesterol Urine WBC (Auto) Crossmatch 02/16/19 02/16/19 02/17/19 16:20 22:38 00:15 WBC RBC Hgb Hct MCHC RDW Plt Count Seg Neuts % (Manual) Lymphocytes % (Manual) Monocytes % (Manual) Nucleated RBC % Seg Neutrophils # Man Lymphocytes # (Manual) Monocytes # (Manual) PT INR D-Dimer POC ABG pH POC ABG pCO2 POC ABG pO2 Sodium 131 L Potassium Chloride 95.7 L Carbon Dioxide 21 L BUN 70 H Creatinine 1.3 H Glucose 121 H POC Glucose 146 H 125 H Hemoglobin A1c Lactic Acid Calcium 8.0 L Magnesium Total Bilirubin Direct Bilirubin AST ALT Alkaline Phosphatase Total Creatine Kinase CK-MB (CK-2) Troponin T NT-Pro-B Natriuret Pep Total Protein Albumin Triglycerides LDL Cholesterol Direct HDL Cholesterol Urine WBC (Auto) Crossmatch 02/17/19 02/17/19 02/17/19 03:49 07:32 10:41 WBC 13.3 H RBC 2.92 L Hgb 8.2 L Hct 24.6 L MCHC RDW 16.2 H Plt Count Seg Neuts % (Manual) 85.0 H Lymphocytes % (Manual) 8.0 L Monocytes % (Manual) Nucleated RBC % Seg Neutrophils # Man 11.3 H Lymphocytes # (Manual) 1.1 L Monocytes # (Manual) PT INR D-Dimer POC ABG pH POC ABG pCO2 POC ABG pO2 Sodium 129 L Potassium 5.2 H D Chloride 95.9 L Carbon Dioxide 18 L BUN 69 H Creatinine 1.4 H Glucose POC Glucose 146 H Hemoglobin A1c Lactic Acid Calcium 8.1 L Magnesium Total Bilirubin Direct Bilirubin AST ALT Alkaline Phosphatase Total Creatine Kinase CK-MB (CK-2) Troponin T NT-Pro-B Natriuret Pep Total Protein Albumin Triglycerides LDL Cholesterol Direct HDL Cholesterol Urine WBC (Auto) Crossmatch 02/17/19 02/17/19 02/18/19 11:14 16:18 01:14 WBC 14.6 H RBC 2.53 L Hgb 7.1 L Hct 21.7 L MCHC RDW 16.6 H Plt Count Seg Neuts % (Manual) 72.0 H Lymphocytes % (Manual) 8.0 L Monocytes % (Manual) 11.0 H Nucleated RBC % Seg Neutrophils # Man 10.5 H Lymphocytes # (Manual) Monocytes # (Manual) 1.6 H PT INR D-Dimer POC ABG pH POC ABG pCO2 POC ABG pO2 Sodium Potassium Chloride Carbon Dioxide BUN Creatinine Glucose POC Glucose 219 H 176 H Hemoglobin A1c Lactic Acid Calcium Magnesium Total Bilirubin Direct Bilirubin AST ALT Alkaline Phosphatase Total Creatine Kinase CK-MB (CK-2) Troponin T NT-Pro-B Natriuret Pep Total Protein Albumin Triglycerides LDL Cholesterol Direct HDL Cholesterol Urine WBC (Auto) Crossmatch 02/18/19 02/18/19 02/18/19 04:25 11:35 11:57 WBC RBC Hgb Hct MCHC RDW Plt Count Seg Neuts % (Manual) Lymphocytes % (Manual) Monocytes % (Manual) Nucleated RBC % Seg Neutrophils # Man Lymphocytes # (Manual) Monocytes # (Manual) PT INR D-Dimer POC ABG pH POC ABG pCO2 POC ABG pO2 Sodium 130 L Potassium Chloride 94.7 L Carbon Dioxide BUN 53 H Creatinine Glucose POC Glucose 197 H Hemoglobin A1c Lactic Acid Calcium 7.8 L Magnesium Total Bilirubin Direct Bilirubin AST ALT Alkaline Phosphatase Total Creatine Kinase CK-MB (CK-2) Troponin T NT-Pro-B Natriuret Pep Total Protein Albumin Triglycerides LDL Cholesterol Direct HDL Cholesterol Urine WBC (Auto) Crossmatch See Detail 02/18/19 02/18/19 02/19/19 16:32 21:26 07:01 WBC RBC Hgb Hct MCHC RDW Plt Count Seg Neuts % (Manual) Lymphocytes % (Manual) Monocytes % (Manual) Nucleated RBC % Seg Neutrophils # Man Lymphocytes # (Manual) Monocytes # (Manual) PT INR D-Dimer POC ABG pH POC ABG pCO2 POC ABG pO2 Sodium 135 L Potassium Chloride Carbon Dioxide BUN 36 H Creatinine Glucose POC Glucose 108 H 107 H Hemoglobin A1c Lactic Acid Calcium 7.9 L Magnesium Total Bilirubin Direct Bilirubin AST ALT Alkaline Phosphatase Total Creatine Kinase CK-MB (CK-2) Troponin T NT-Pro-B Natriuret Pep Total Protein Albumin Triglycerides LDL Cholesterol Direct HDL Cholesterol Urine WBC (Auto) Crossmatch 02/19/19 02/19/19 02/19/19 11:11 13:46 15:19 WBC 12.0 H RBC 2.63 L Hgb 7.5 L Hct 23.3 L MCHC RDW 16.6 H Plt Count Seg Neuts % (Manual) 74.0 H Lymphocytes % (Manual) Monocytes % (Manual) Nucleated RBC % Seg Neutrophils # Man 8.9 H Lymphocytes # (Manual) Monocytes # (Manual) PT INR D-Dimer POC ABG pH POC ABG pCO2 POC ABG pO2 Sodium Potassium Chloride Carbon Dioxide BUN Creatinine Glucose POC Glucose 125 H 181 H Hemoglobin A1c Lactic Acid Calcium Magnesium Total Bilirubin Direct Bilirubin AST ALT Alkaline Phosphatase Total Creatine Kinase CK-MB (CK-2) Troponin T NT-Pro-B Natriuret Pep Total Protein Albumin Triglycerides LDL Cholesterol Direct HDL Cholesterol Urine WBC (Auto) Crossmatch 02/19/19 02/20/19 02/20/19 22:04 02:47 05:25 WBC RBC Hgb Hct MCHC RDW Plt Count Seg Neuts % (Manual) Lymphocytes % (Manual) Monocytes % (Manual) Nucleated RBC % Seg Neutrophils # Man Lymphocytes # (Manual) Monocytes # (Manual) PT INR D-Dimer POC ABG pH POC ABG pCO2 POC ABG pO2 Sodium Potassium Chloride Carbon Dioxide BUN Creatinine Glucose POC Glucose 298 H 136 H 106 H Hemoglobin A1c Lactic Acid Calcium Magnesium Total Bilirubin Direct Bilirubin AST ALT Alkaline Phosphatase Total Creatine Kinase CK-MB (CK-2) Troponin T NT-Pro-B Natriuret Pep Total Protein Albumin Triglycerides LDL Cholesterol Direct HDL Cholesterol Urine WBC (Auto) Crossmatch 02/20/19 02/20/19 02/20/19 06:07 07:55 12:17 WBC RBC Hgb Hct MCHC RDW Plt Count Seg Neuts % (Manual) Lymphocytes % (Manual) Monocytes % (Manual) Nucleated RBC % Seg Neutrophils # Man Lymphocytes # (Manual) Monocytes # (Manual) PT INR D-Dimer POC ABG pH POC ABG pCO2 POC ABG pO2 Sodium Potassium Chloride Carbon Dioxide BUN 23 H Creatinine Glucose 105 H POC Glucose 112 H 195 H Hemoglobin A1c Lactic Acid Calcium 7.4 L Magnesium Total Bilirubin Direct Bilirubin AST ALT Alkaline Phosphatase Total Creatine Kinase CK-MB (CK-2) Troponin T NT-Pro-B Natriuret Pep Total Protein Albumin Triglycerides LDL Cholesterol Direct HDL Cholesterol Urine WBC (Auto) Crossmatch 02/20/19 02/20/19 02/21/19 16:34 22:23 11:35 WBC RBC Hgb Hct MCHC RDW Plt Count Seg Neuts % (Manual) Lymphocytes % (Manual) Monocytes % (Manual) Nucleated RBC % Seg Neutrophils # Man Lymphocytes # (Manual) Monocytes # (Manual) PT INR D-Dimer POC ABG pH POC ABG pCO2 POC ABG pO2 Sodium Potassium Chloride Carbon Dioxide BUN Creatinine Glucose POC Glucose 117 H 153 H 142 H Hemoglobin A1c Lactic Acid Calcium Magnesium Total Bilirubin Direct Bilirubin AST ALT Alkaline Phosphatase Total Creatine Kinase CK-MB (CK-2) Troponin T NT-Pro-B Natriuret Pep Total Protein Albumin Triglycerides LDL Cholesterol Direct HDL Cholesterol Urine WBC (Auto) Crossmatch 02/21/19 02/21/19 02/21/19 11:38 17:12 19:19 WBC RBC Hgb Hct MCHC RDW Plt Count Seg Neuts % (Manual) Lymphocytes % (Manual) Monocytes % (Manual) Nucleated RBC % Seg Neutrophils # Man Lymphocytes # (Manual) Monocytes # (Manual) PT INR D-Dimer POC ABG pH POC ABG pCO2 POC ABG pO2 Sodium 135 L Potassium Chloride Carbon Dioxide 18 L BUN Creatinine Glucose 129 H POC Glucose 61 L 135 H Hemoglobin A1c Lactic Acid Calcium 7.4 L Magnesium Total Bilirubin Direct Bilirubin AST ALT Alkaline Phosphatase Total Creatine Kinase CK-MB (CK-2) Troponin T NT-Pro-B Natriuret Pep Total Protein Albumin Triglycerides LDL Cholesterol Direct HDL Cholesterol Urine WBC (Auto) Crossmatch 02/21/19 02/22/19 02/22/19 21:24 04:18 04:49 WBC RBC Hgb Hct MCHC RDW Plt Count Seg Neuts % (Manual) Lymphocytes % (Manual) Monocytes % (Manual) Nucleated RBC % Seg Neutrophils # Man Lymphocytes # (Manual) Monocytes # (Manual) PT INR D-Dimer POC ABG pH 7.459 H POC ABG pCO2 POC ABG pO2 Sodium Potassium Chloride Carbon Dioxide BUN Creatinine Glucose POC Glucose 146 H 186 H Hemoglobin A1c Lactic Acid Calcium Magnesium Total Bilirubin Direct Bilirubin AST ALT Alkaline Phosphatase Total Creatine Kinase CK-MB (CK-2) Troponin T NT-Pro-B Natriuret Pep Total Protein Albumin Triglycerides LDL Cholesterol Direct HDL Cholesterol Urine WBC (Auto) Crossmatch 02/22/19 02/22/19 02/22/19 07:56 08:26 08:26 WBC RBC Hgb Hct MCHC RDW Plt Count Seg Neuts % (Manual) Lymphocytes % (Manual) Monocytes % (Manual) Nucleated RBC % Seg Neutrophils # Man Lymphocytes # (Manual) Monocytes # (Manual) PT INR D-Dimer 1481.17 H POC ABG pH POC ABG pCO2 POC ABG pO2 Sodium 133 L Potassium 5.3 H Chloride Carbon Dioxide 19 L BUN Creatinine Glucose 216 H POC Glucose 239 H Hemoglobin A1c Lactic Acid Calcium 7.7 L Magnesium Total Bilirubin Direct Bilirubin AST ALT Alkaline Phosphatase Total Creatine Kinase CK-MB (CK-2) Troponin T NT-Pro-B Natriuret Pep Total Protein Albumin Triglycerides LDL Cholesterol Direct HDL Cholesterol Urine WBC (Auto) Crossmatch 02/22/19 02/22/19 02/22/19 11:59 17:06 22:00 WBC RBC Hgb Hct MCHC RDW Plt Count Seg Neuts % (Manual) Lymphocytes % (Manual) Monocytes % (Manual) Nucleated RBC % Seg Neutrophils # Man Lymphocytes # (Manual) Monocytes # (Manual) PT INR D-Dimer POC ABG pH POC ABG pCO2 POC ABG pO2 Sodium Potassium Chloride Carbon Dioxide BUN Creatinine Glucose POC Glucose 238 H 61 L 174 H Hemoglobin A1c Lactic Acid Calcium Magnesium Total Bilirubin Direct Bilirubin AST ALT Alkaline Phosphatase Total Creatine Kinase CK-MB (CK-2) Troponin T NT-Pro-B Natriuret Pep Total Protein Albumin Triglycerides LDL Cholesterol Direct HDL Cholesterol Urine WBC (Auto) Crossmatch 02/23/19 02/23/19 02/23/19 06:12 07:50 21:43 WBC RBC Hgb Hct MCHC RDW Plt Count Seg Neuts % (Manual) Lymphocytes % (Manual) Monocytes % (Manual) Nucleated RBC % Seg Neutrophils # Man Lymphocytes # (Manual) Monocytes # (Manual) PT INR D-Dimer POC ABG pH POC ABG pCO2 POC ABG pO2 Sodium Potassium Chloride Carbon Dioxide 19 L BUN 18 H Creatinine Glucose 52 L POC Glucose 55 L 107 H Hemoglobin A1c Lactic Acid Calcium 8.3 L Magnesium Total Bilirubin Direct Bilirubin AST ALT Alkaline Phosphatase Total Creatine Kinase CK-MB (CK-2) Troponin T NT-Pro-B Natriuret Pep Total Protein Albumin Triglycerides LDL Cholesterol Direct HDL Cholesterol Urine WBC (Auto) Crossmatch 02/24/19 02/24/19 02/24/19 07:29 11:29 16:05 WBC RBC Hgb Hct MCHC RDW Plt Count Seg Neuts % (Manual) Lymphocytes % (Manual) Monocytes % (Manual) Nucleated RBC % Seg Neutrophils # Man Lymphocytes # (Manual) Monocytes # (Manual) PT INR D-Dimer POC ABG pH POC ABG pCO2 POC ABG pO2 Sodium Potassium Chloride Carbon Dioxide BUN Creatinine Glucose POC Glucose 176 H 253 H 179 H Hemoglobin A1c Lactic Acid Calcium Magnesium Total Bilirubin Direct Bilirubin AST ALT Alkaline Phosphatase Total Creatine Kinase CK-MB (CK-2) Troponin T NT-Pro-B Natriuret Pep Total Protein Albumin Triglycerides LDL Cholesterol Direct HDL Cholesterol Urine WBC (Auto) Crossmatch 02/24/19 02/25/19 02/25/19 21:50 07:57 11:54 WBC RBC Hgb Hct MCHC RDW Plt Count Seg Neuts % (Manual) Lymphocytes % (Manual) Monocytes % (Manual) Nucleated RBC % Seg Neutrophils # Man Lymphocytes # (Manual) Monocytes # (Manual) PT INR D-Dimer POC ABG pH POC ABG pCO2 POC ABG pO2 Sodium Potassium Chloride Carbon Dioxide BUN Creatinine Glucose POC Glucose 200 H 249 H 260 H Hemoglobin A1c Lactic Acid Calcium Magnesium Total Bilirubin Direct Bilirubin AST ALT Alkaline Phosphatase Total Creatine Kinase CK-MB (CK-2) Troponin T NT-Pro-B Natriuret Pep Total Protein Albumin Triglycerides LDL Cholesterol Direct HDL Cholesterol Urine WBC (Auto) Crossmatch 02/25/19 02/25/19 02/26/19 16:34 21:52 07:54 WBC RBC Hgb Hct MCHC RDW Plt Count Seg Neuts % (Manual) Lymphocytes % (Manual) Monocytes % (Manual) Nucleated RBC % Seg Neutrophils # Man Lymphocytes # (Manual) Monocytes # (Manual) PT INR D-Dimer POC ABG pH POC ABG pCO2 POC ABG pO2 Sodium Potassium Chloride Carbon Dioxide BUN Creatinine Glucose POC Glucose 198 H 254 H 213 H Hemoglobin A1c Lactic Acid Calcium Magnesium Total Bilirubin Direct Bilirubin AST ALT Alkaline Phosphatase Total Creatine Kinase CK-MB (CK-2) Troponin T NT-Pro-B Natriuret Pep Total Protein Albumin Triglycerides LDL Cholesterol Direct HDL Cholesterol Urine WBC (Auto) Crossmatch 02/26/19 02/26/19 02/26/19 11:49 16:00 22:00 WBC RBC Hgb Hct MCHC RDW Plt Count Seg Neuts % (Manual) Lymphocytes % (Manual) Monocytes % (Manual) Nucleated RBC % Seg Neutrophils # Man Lymphocytes # (Manual) Monocytes # (Manual) PT INR D-Dimer POC ABG pH POC ABG pCO2 POC ABG pO2 Sodium Potassium Chloride Carbon Dioxide BUN Creatinine Glucose POC Glucose 306 H 183 H 162 H Hemoglobin A1c Lactic Acid Calcium Magnesium Total Bilirubin Direct Bilirubin AST ALT Alkaline Phosphatase Total Creatine Kinase CK-MB (CK-2) Troponin T NT-Pro-B Natriuret Pep Total Protein Albumin Triglycerides LDL Cholesterol Direct HDL Cholesterol Urine WBC (Auto) Crossmatch 02/27/19 02/27/19 02/27/19 07:44 11:11 16:57 WBC RBC Hgb Hct MCHC RDW Plt Count Seg Neuts % (Manual) Lymphocytes % (Manual) Monocytes % (Manual) Nucleated RBC % Seg Neutrophils # Man Lymphocytes # (Manual) Monocytes # (Manual) PT INR D-Dimer POC ABG pH POC ABG pCO2 POC ABG pO2 Sodium Potassium Chloride Carbon Dioxide BUN Creatinine Glucose POC Glucose 171 H 217 H 199 H Hemoglobin A1c Lactic Acid Calcium Magnesium Total Bilirubin Direct Bilirubin AST ALT Alkaline Phosphatase Total Creatine Kinase CK-MB (CK-2) Troponin T NT-Pro-B Natriuret Pep Total Protein Albumin Triglycerides LDL Cholesterol Direct HDL Cholesterol Urine WBC (Auto) Crossmatch 02/27/19 02/28/19 02/28/19 21:48 07:36 11:41 WBC RBC Hgb Hct MCHC RDW Plt Count Seg Neuts % (Manual) Lymphocytes % (Manual) Monocytes % (Manual) Nucleated RBC % Seg Neutrophils # Man Lymphocytes # (Manual) Monocytes # (Manual) PT INR D-Dimer POC ABG pH POC ABG pCO2 POC ABG pO2 Sodium Potassium Chloride Carbon Dioxide BUN Creatinine Glucose POC Glucose 161 H 148 H 244 H Hemoglobin A1c Lactic Acid Calcium Magnesium Total Bilirubin Direct Bilirubin AST ALT Alkaline Phosphatase Total Creatine Kinase CK-MB (CK-2) Troponin T NT-Pro-B Natriuret Pep Total Protein Albumin Triglycerides LDL Cholesterol Direct HDL Cholesterol Urine WBC (Auto) Crossmatch 02/28/19 02/28/19 02/28/19 16:32 16:53 17:28 WBC RBC Hgb Hct MCHC RDW Plt Count Seg Neuts % (Manual) Lymphocytes % (Manual) Monocytes % (Manual) Nucleated RBC % Seg Neutrophils # Man Lymphocytes # (Manual) Monocytes # (Manual) PT INR D-Dimer POC ABG pH POC ABG pCO2 POC ABG pO2 53 L Sodium Potassium Chloride Carbon Dioxide BUN Creatinine Glucose POC Glucose 283 H Hemoglobin A1c Lactic Acid Calcium Magnesium Total Bilirubin Direct Bilirubin AST ALT Alkaline Phosphatase Total Creatine Kinase CK-MB (CK-2) Troponin T 0.119 H* NT-Pro-B Natriuret Pep Total Protein Albumin Triglycerides LDL Cholesterol Direct HDL Cholesterol Urine WBC (Auto) Crossmatch 02/28/19 02/28/19 02/28/19 18:33 18:33 18:33 WBC 11.5 H RBC 2.35 L Hgb 6.5 L Hct 21.2 L MCHC RDW 17.6 H Plt Count 631 H Seg Neuts % (Manual) 87.0 H Lymphocytes % (Manual) 9.0 L Monocytes % (Manual) Nucleated RBC % Seg Neutrophils # Man 10.0 H Lymphocytes # (Manual) 1.0 L Monocytes # (Manual) PT 15.5 H INR 1.16 H D-Dimer POC ABG pH POC ABG pCO2 POC ABG pO2 Sodium Potassium Chloride Carbon Dioxide BUN Creatinine Glucose POC Glucose Hemoglobin A1c Lactic Acid Calcium Magnesium Total Bilirubin Direct Bilirubin AST ALT Alkaline Phosphatase Total Creatine Kinase 165 H CK-MB (CK-2) 4.9 H Troponin T 0.123 H* NT-Pro-B Natriuret Pep Total Protein Albumin Triglycerides LDL Cholesterol Direct HDL Cholesterol Urine WBC (Auto) Crossmatch 02/28/19 02/28/19 02/28/19 18:33 19:55 21:39 WBC RBC Hgb Hct MCHC RDW Plt Count Seg Neuts % (Manual) Lymphocytes % (Manual) Monocytes % (Manual) Nucleated RBC % Seg Neutrophils # Man Lymphocytes # (Manual) Monocytes # (Manual) PT INR D-Dimer POC ABG pH 7.319 L POC ABG pCO2 POC ABG pO2 196 H Sodium 136 L Potassium 5.6 H Chloride Carbon Dioxide 14 L BUN 21 H Creatinine 1.4 H Glucose 274 H POC Glucose 277 H Hemoglobin A1c Lactic Acid Calcium 8.3 L Magnesium Total Bilirubin Direct Bilirubin AST ALT Alkaline Phosphatase 165 H Total Creatine Kinase CK-MB (CK-2) Troponin T NT-Pro-B Natriuret Pep Total Protein Albumin 2.7 L Triglycerides LDL Cholesterol Direct HDL Cholesterol Urine WBC (Auto) Crossmatch 02/28/19 02/28/19 02/28/19 22:46 22:47 22:59 WBC RBC Hgb Hct MCHC RDW Plt Count Seg Neuts % (Manual) Lymphocytes % (Manual) Monocytes % (Manual) Nucleated RBC % Seg Neutrophils # Man Lymphocytes # (Manual) Monocytes # (Manual) PT INR D-Dimer POC ABG pH 7.068 L POC ABG pCO2 34.7 L POC ABG pO2 280 H Sodium Potassium Chloride Carbon Dioxide BUN Creatinine Glucose POC Glucose Hemoglobin A1c Lactic Acid 16.50 H* Calcium Magnesium Total Bilirubin Direct Bilirubin AST ALT Alkaline Phosphatase Total Creatine Kinase CK-MB (CK-2) Troponin T 0.595 H* D NT-Pro-B Natriuret Pep Total Protein Albumin Triglycerides LDL Cholesterol Direct HDL Cholesterol Urine WBC (Auto) Crossmatch 02/28/19 03/01/19 03/01/19 22:59 00:47 00:48 WBC RBC Hgb Hct MCHC RDW Plt Count Seg Neuts % (Manual) Lymphocytes % (Manual) Monocytes % (Manual) Nucleated RBC % Seg Neutrophils # Man Lymphocytes # (Manual) Monocytes # (Manual) PT INR D-Dimer POC ABG pH POC ABG pCO2 POC ABG pO2 Sodium Potassium 7.0 H* D 7.3 H* Chloride 97.5 L Carbon Dioxide 10 L 7 L* BUN 22 H 23 H Creatinine 1.7 H 2.0 H Glucose 223 H 222 H POC Glucose Hemoglobin A1c Lactic Acid 19.80 H* Calcium 8.1 L Magnesium Total Bilirubin Direct Bilirubin AST 107 H 223 H ALT Alkaline Phosphatase 208 H 209 H Total Creatine Kinase CK-MB (CK-2) Troponin T NT-Pro-B Natriuret Pep Total Protein 5.9 L Albumin 2.7 L 2.5 L Triglycerides LDL Cholesterol Direct HDL Cholesterol Urine WBC (Auto) Crossmatch 03/01/19 03/01/19 03/01/19 04:07 04:07 04:07 WBC RBC Hgb Hct MCHC RDW Plt Count Seg Neuts % (Manual) Lymphocytes % (Manual) Monocytes % (Manual) Nucleated RBC % Seg Neutrophils # Man Lymphocytes # (Manual) Monocytes # (Manual) PT INR D-Dimer POC ABG pH POC ABG pCO2 POC ABG pO2 Sodium Potassium 6.1 H* Chloride Carbon Dioxide 6 L* BUN 22 H Creatinine 2.0 H Glucose 269 H POC Glucose Hemoglobin A1c Lactic Acid 22.60 H* Calcium 6.9 L Magnesium Total Bilirubin Direct Bilirubin AST 1971 H ALT 686 H Alkaline Phosphatase 193 H Total Creatine Kinase CK-MB (CK-2) Troponin T 2.910 H* D NT-Pro-B Natriuret Pep Total Protein 4.6 L D Albumin 2.0 L Triglycerides LDL Cholesterol Direct HDL Cholesterol Urine WBC (Auto) Crossmatch 03/01/19 03/01/19 03/01/19 04:45 05:03 05:38 WBC RBC 1.78 L Hgb 5.0 L* Hct 17.4 L* MCHC 29 L RDW 18.3 H Plt Count Seg Neuts % (Manual) 78.0 H Lymphocytes % (Manual) Monocytes % (Manual) Nucleated RBC % 2.0 H Seg Neutrophils # Man Lymphocytes # (Manual) Monocytes # (Manual) PT INR D-Dimer POC ABG pH 6.806 L 6.895 L POC ABG pCO2 POC ABG pO2 54 L 213 H Sodium Potassium Chloride Carbon Dioxide BUN Creatinine Glucose POC Glucose Hemoglobin A1c Lactic Acid Calcium Magnesium Total Bilirubin Direct Bilirubin AST ALT Alkaline Phosphatase Total Creatine Kinase CK-MB (CK-2) Troponin T NT-Pro-B Natriuret Pep Total Protein Albumin Triglycerides LDL Cholesterol Direct HDL Cholesterol Urine WBC (Auto) Crossmatch 03/01/19 03/01/19 03/01/19 05:38 06:03 07:29 WBC RBC Hgb Hct MCHC RDW Plt Count Seg Neuts % (Manual) Lymphocytes % (Manual) Monocytes % (Manual) Nucleated RBC % Seg Neutrophils # Man Lymphocytes # (Manual) Monocytes # (Manual) PT INR D-Dimer POC ABG pH POC ABG pCO2 POC ABG pO2 Sodium Potassium Chloride Carbon Dioxide BUN Creatinine Glucose POC Glucose 310 H Hemoglobin A1c Lactic Acid 23.40 H* 24.70 H* Calcium Magnesium Total Bilirubin Direct Bilirubin AST ALT Alkaline Phosphatase Total Creatine Kinase CK-MB (CK-2) Troponin T NT-Pro-B Natriuret Pep Total Protein Albumin Triglycerides LDL Cholesterol Direct HDL Cholesterol Urine WBC (Auto) Crossmatch 03/01/19 03/01/19 03/01/19 07:30 11:38 12:02 WBC RBC Hgb Hct MCHC RDW Plt Count Seg Neuts % (Manual) Lymphocytes % (Manual) Monocytes % (Manual) Nucleated RBC % Seg Neutrophils # Man Lymphocytes # (Manual) Monocytes # (Manual) PT INR D-Dimer POC ABG pH POC ABG pCO2 POC ABG pO2 Sodium Potassium 6.3 H* Chloride Carbon Dioxide BUN Creatinine Glucose POC Glucose 326 H Hemoglobin A1c Lactic Acid Calcium Magnesium Total Bilirubin Direct Bilirubin AST ALT Alkaline Phosphatase Total Creatine Kinase CK-MB (CK-2) Troponin T NT-Pro-B Natriuret Pep Total Protein Albumin Triglycerides LDL Cholesterol Direct HDL Cholesterol Urine WBC (Auto) Crossmatch See Detail 03/01/19 03/01/19 03/01/19 12:30 17:34 18:26 WBC RBC Hgb Hct MCHC RDW Plt Count Seg Neuts % (Manual) Lymphocytes % (Manual) Monocytes % (Manual) Nucleated RBC % Seg Neutrophils # Man Lymphocytes # (Manual) Monocytes # (Manual) PT INR D-Dimer POC ABG pH 6.960 L 7.101 L POC ABG pCO2 32.7 L POC ABG pO2 117 H 109 H Sodium Potassium Chloride Carbon Dioxide BUN Creatinine Glucose POC Glucose 434 H Hemoglobin A1c Lactic Acid Calcium Magnesium Total Bilirubin Direct Bilirubin AST ALT Alkaline Phosphatase Total Creatine Kinase CK-MB (CK-2) Troponin T NT-Pro-B Natriuret Pep Total Protein Albumin Triglycerides LDL Cholesterol Direct HDL Cholesterol Urine WBC (Auto) Crossmatch 03/01/19 03/01/19 03/01/19 20:24 20:24 21:39 WBC RBC Hgb 8.9 L D Hct 28.2 L D MCHC RDW Plt Count Seg Neuts % (Manual) Lymphocytes % (Manual) Monocytes % (Manual) Nucleated RBC % Seg Neutrophils # Man Lymphocytes # (Manual) Monocytes # (Manual) PT INR D-Dimer POC ABG pH POC ABG pCO2 POC ABG pO2 Sodium Potassium 6.2 H* Chloride Carbon Dioxide BUN Creatinine Glucose POC Glucose > 500 H Hemoglobin A1c Lactic Acid Calcium Magnesium Total Bilirubin Direct Bilirubin AST ALT Alkaline Phosphatase Total Creatine Kinase CK-MB (CK-2) Troponin T NT-Pro-B Natriuret Pep Total Protein Albumin Triglycerides LDL Cholesterol Direct HDL Cholesterol Urine WBC (Auto) Crossmatch 03/01/19 03/02/19 03/02/19 22:45 01:42 04:20 WBC 13.0 H RBC 2.47 L Hgb 7.0 L Hct 22.8 L MCHC RDW 18.4 H Plt Count Seg Neuts % (Manual) 95.0 H Lymphocytes % (Manual) 0 L Monocytes % (Manual) Nucleated RBC % 8.0 H Seg Neutrophils # Man 12.4 H Lymphocytes # (Manual) 0.0 L Monocytes # (Manual) PT INR D-Dimer POC ABG pH POC ABG pCO2 POC ABG pO2 Sodium Potassium 5.9 H Chloride 93.0 L Carbon Dioxide 16 L D BUN 28 H Creatinine 2.8 H Glucose 617 H* POC Glucose > 500 H Hemoglobin A1c Lactic Acid Calcium 6.2 L Magnesium Total Bilirubin Direct Bilirubin AST ALT Alkaline Phosphatase Total Creatine Kinase CK-MB (CK-2) Troponin T NT-Pro-B Natriuret Pep Total Protein Albumin Triglycerides LDL Cholesterol Direct HDL Cholesterol Urine WBC (Auto) Crossmatch 03/02/19 03/02/19 03/02/19 04:20 05:04 05:25 WBC RBC Hgb Hct MCHC RDW Plt Count Seg Neuts % (Manual) Lymphocytes % (Manual) Monocytes % (Manual) Nucleated RBC % Seg Neutrophils # Man Lymphocytes # (Manual) Monocytes # (Manual) PT INR D-Dimer POC ABG pH POC ABG pCO2 33.8 L POC ABG pO2 Sodium 132 L Potassium Chloride 85.5 L Carbon Dioxide 21 L BUN 27 H Creatinine 2.8 H Glucose 928 H* POC Glucose > 500 H Hemoglobin A1c Lactic Acid Calcium 6.1 L Magnesium Total Bilirubin 2.00 H Direct Bilirubin AST 7855 H ALT 2210 H Alkaline Phosphatase 238 H Total Creatine Kinase CK-MB (CK-2) Troponin T 13.790 H* D NT-Pro-B Natriuret Pep Total Protein 4.0 L Albumin 1.7 L Triglycerides LDL Cholesterol Direct HDL Cholesterol Urine WBC (Auto) Crossmatch 03/02/19 03/02/19 03/02/19 09:11 10:10 11:19 WBC RBC Hgb Hct MCHC RDW Plt Count Seg Neuts % (Manual) Lymphocytes % (Manual) Monocytes % (Manual) Nucleated RBC % Seg Neutrophils # Man Lymphocytes # (Manual) Monocytes # (Manual) PT INR D-Dimer POC ABG pH POC ABG pCO2 POC ABG pO2 Sodium Potassium Chloride Carbon Dioxide BUN Creatinine Glucose POC Glucose 494 H > 500 H 413 H Hemoglobin A1c Lactic Acid Calcium Magnesium Total Bilirubin Direct Bilirubin AST ALT Alkaline Phosphatase Total Creatine Kinase CK-MB (CK-2) Troponin T NT-Pro-B Natriuret Pep Total Protein Albumin Triglycerides LDL Cholesterol Direct HDL Cholesterol Urine WBC (Auto) Crossmatch 03/02/19 03/02/19 03/02/19 12:05 13:00 14:00 WBC RBC Hgb Hct MCHC RDW Plt Count Seg Neuts % (Manual) Lymphocytes % (Manual) Monocytes % (Manual) Nucleated RBC % Seg Neutrophils # Man Lymphocytes # (Manual) Monocytes # (Manual) PT INR D-Dimer POC ABG pH POC ABG pCO2 POC ABG pO2 Sodium Potassium Chloride Carbon Dioxide BUN Creatinine Glucose POC Glucose 400 H 391 H 415 H Hemoglobin A1c Lactic Acid Calcium Magnesium Total Bilirubin Direct Bilirubin AST ALT Alkaline Phosphatase Total Creatine Kinase CK-MB (CK-2) Troponin T NT-Pro-B Natriuret Pep Total Protein Albumin Triglycerides LDL Cholesterol Direct HDL Cholesterol Urine WBC (Auto) Crossmatch 03/02/19 03/02/19 03/02/19 15:12 16:14 17:13 WBC RBC Hgb 8.0 L Hct 24.7 L MCHC RDW Plt Count Seg Neuts % (Manual) Lymphocytes % (Manual) Monocytes % (Manual) Nucleated RBC % Seg Neutrophils # Man Lymphocytes # (Manual) Monocytes # (Manual) PT INR D-Dimer POC ABG pH POC ABG pCO2 POC ABG pO2 Sodium Potassium Chloride Carbon Dioxide BUN Creatinine Glucose POC Glucose 405 H 395 H Hemoglobin A1c Lactic Acid Calcium Magnesium Total Bilirubin Direct Bilirubin AST ALT Alkaline Phosphatase Total Creatine Kinase CK-MB (CK-2) Troponin T NT-Pro-B Natriuret Pep Total Protein Albumin Triglycerides LDL Cholesterol Direct HDL Cholesterol Urine WBC (Auto) Crossmatch 03/02/19 03/02/19 03/02/19 17:13 17:16 17:30 WBC RBC Hgb Hct MCHC RDW Plt Count Seg Neuts % (Manual) Lymphocytes % (Manual) Monocytes % (Manual) Nucleated RBC % Seg Neutrophils # Man Lymphocytes # (Manual) Monocytes # (Manual) PT INR D-Dimer POC ABG pH POC ABG pCO2 POC ABG pO2 Sodium Potassium Chloride 94.8 L Carbon Dioxide 21 L BUN 34 H Creatinine 3.2 H Glucose 358 H POC Glucose 357 H Hemoglobin A1c Lactic Acid 7.90 H* Calcium 5.9 L* Magnesium Total Bilirubin Direct Bilirubin AST ALT Alkaline Phosphatase Total Creatine Kinase CK-MB (CK-2) Troponin T NT-Pro-B Natriuret Pep Total Protein Albumin Triglycerides LDL Cholesterol Direct HDL Cholesterol Urine WBC (Auto) Crossmatch 03/02/19 03/02/19 03/02/19 18:12 19:31 20:29 WBC RBC Hgb Hct MCHC RDW Plt Count Seg Neuts % (Manual) Lymphocytes % (Manual) Monocytes % (Manual) Nucleated RBC % Seg Neutrophils # Man Lymphocytes # (Manual) Monocytes # (Manual) PT INR D-Dimer POC ABG pH POC ABG pCO2 POC ABG pO2 Sodium Potassium Chloride Carbon Dioxide BUN Creatinine Glucose POC Glucose 270 H 263 H Hemoglobin A1c Lactic Acid Calcium Magnesium Total Bilirubin Direct Bilirubin AST ALT Alkaline Phosphatase Total Creatine Kinase CK-MB (CK-2) Troponin T NT-Pro-B Natriuret Pep Total Protein Albumin Triglycerides LDL Cholesterol Direct HDL Cholesterol Urine WBC (Auto) 17.0 H Crossmatch 03/02/19 03/02/19 03/02/19 20:37 21:08 21:36 WBC RBC Hgb Hct MCHC RDW Plt Count Seg Neuts % (Manual) Lymphocytes % (Manual) Monocytes % (Manual) Nucleated RBC % Seg Neutrophils # Man Lymphocytes # (Manual) Monocytes # (Manual) PT INR D-Dimer POC ABG pH POC ABG pCO2 POC ABG pO2 Sodium Potassium Chloride Carbon Dioxide BUN Creatinine Glucose POC Glucose 270 H 262 H Hemoglobin A1c Lactic Acid 8.60 H* Calcium Magnesium Total Bilirubin Direct Bilirubin AST ALT Alkaline Phosphatase Total Creatine Kinase CK-MB (CK-2) Troponin T NT-Pro-B Natriuret Pep Total Protein Albumin Triglycerides LDL Cholesterol Direct HDL Cholesterol Urine WBC (Auto) Crossmatch 03/02/19 03/02/19 03/03/19 22:07 23:09 00:02 WBC RBC Hgb Hct MCHC RDW Plt Count Seg Neuts % (Manual) Lymphocytes % (Manual) Monocytes % (Manual) Nucleated RBC % Seg Neutrophils # Man Lymphocytes # (Manual) Monocytes # (Manual) PT INR D-Dimer POC ABG pH POC ABG pCO2 POC ABG pO2 Sodium Potassium Chloride Carbon Dioxide BUN Creatinine Glucose POC Glucose 252 H 230 H 159 H Hemoglobin A1c Lactic Acid Calcium Magnesium Total Bilirubin Direct Bilirubin AST ALT Alkaline Phosphatase Total Creatine Kinase CK-MB (CK-2) Troponin T NT-Pro-B Natriuret Pep Total Protein Albumin Triglycerides LDL Cholesterol Direct HDL Cholesterol Urine WBC (Auto) Crossmatch 03/03/19 03/03/19 03/03/19 00:45 00:45 00:45 WBC RBC Hgb 6.3 L Hct 19.8 L* MCHC RDW Plt Count Seg Neuts % (Manual) Lymphocytes % (Manual) Monocytes % (Manual) Nucleated RBC % Seg Neutrophils # Man Lymphocytes # (Manual) Monocytes # (Manual) PT INR D-Dimer POC ABG pH POC ABG pCO2 POC ABG pO2 Sodium Potassium 2.9 L* D Chloride 110.4 H Carbon Dioxide 16 L BUN 27 H Creatinine 2.7 H Glucose 156 H POC Glucose Hemoglobin A1c Lactic Acid 4.90 H* Calcium 4.6 L* D Magnesium Total Bilirubin Direct Bilirubin AST ALT Alkaline Phosphatase Total Creatine Kinase CK-MB (CK-2) Troponin T NT-Pro-B Natriuret Pep Total Protein Albumin Triglycerides LDL Cholesterol Direct HDL Cholesterol Urine WBC (Auto) Crossmatch 03/03/19 03/03/19 03/03/19 01:10 02:04 03:07 WBC RBC Hgb Hct MCHC RDW Plt Count Seg Neuts % (Manual) Lymphocytes % (Manual) Monocytes % (Manual) Nucleated RBC % Seg Neutrophils # Man Lymphocytes # (Manual) Monocytes # (Manual) PT INR D-Dimer POC ABG pH POC ABG pCO2 POC ABG pO2 Sodium Potassium Chloride Carbon Dioxide BUN Creatinine Glucose POC Glucose 189 H 214 H 160 H Hemoglobin A1c Lactic Acid Calcium Magnesium Total Bilirubin Direct Bilirubin AST ALT Alkaline Phosphatase Total Creatine Kinase CK-MB (CK-2) Troponin T NT-Pro-B Natriuret Pep Total Protein Albumin Triglycerides LDL Cholesterol Direct HDL Cholesterol Urine WBC (Auto) Crossmatch 03/03/19 03/03/19 03/03/19 04:10 04:52 05:20 WBC RBC Hgb Hct MCHC RDW Plt Count Seg Neuts % (Manual) Lymphocytes % (Manual) Monocytes % (Manual) Nucleated RBC % Seg Neutrophils # Man Lymphocytes # (Manual) Monocytes # (Manual) PT INR D-Dimer POC ABG pH POC ABG pCO2 34.7 L POC ABG pO2 51 L Sodium Potassium Chloride Carbon Dioxide BUN Creatinine Glucose POC Glucose 142 H 142 H Hemoglobin A1c Lactic Acid Calcium Magnesium Total Bilirubin Direct Bilirubin AST ALT Alkaline Phosphatase Total Creatine Kinase CK-MB (CK-2) Troponin T NT-Pro-B Natriuret Pep Total Protein Albumin Triglycerides LDL Cholesterol Direct HDL Cholesterol Urine WBC (Auto) Crossmatch 03/03/19 03/03/19 03/03/19 06:06 06:50 08:01 WBC RBC Hgb Hct MCHC RDW Plt Count Seg Neuts % (Manual) Lymphocytes % (Manual) Monocytes % (Manual) Nucleated RBC % Seg Neutrophils # Man Lymphocytes # (Manual) Monocytes # (Manual) PT INR D-Dimer POC ABG pH POC ABG pCO2 POC ABG pO2 Sodium Potassium Chloride Carbon Dioxide BUN Creatinine Glucose POC Glucose 127 H 131 H 137 H Hemoglobin A1c Lactic Acid Calcium Magnesium Total Bilirubin Direct Bilirubin AST ALT Alkaline Phosphatase Total Creatine Kinase CK-MB (CK-2) Troponin T NT-Pro-B Natriuret Pep Total Protein Albumin Triglycerides LDL Cholesterol Direct HDL Cholesterol Urine WBC (Auto) Crossmatch 03/03/19 03/03/19 03/03/19 08:30 08:30 08:30 WBC 14.0 H RBC 3.52 L Hgb 9.9 L D Hct 29.8 L D MCHC RDW 16.6 H Plt Count Seg Neuts % (Manual) 92.0 H Lymphocytes % (Manual) 5.0 L Monocytes % (Manual) Nucleated RBC % 13.0 H Seg Neutrophils # Man 0.0 L Lymphocytes # (Manual) 0.0 L Monocytes # (Manual) PT INR D-Dimer POC ABG pH POC ABG pCO2 POC ABG pO2 Sodium Potassium 5.3 H D Chloride Carbon Dioxide BUN 38 H Creatinine 4.0 H Glucose 135 H POC Glucose Hemoglobin A1c Lactic Acid 4.00 H* Calcium 6.8 L D Magnesium 1.60 L Total Bilirubin 1.30 H Direct Bilirubin AST 4012 H ALT 1793 H Alkaline Phosphatase 259 H Total Creatine Kinase CK-MB (CK-2) Troponin T NT-Pro-B Natriuret Pep Total Protein 4.6 L Albumin 2.0 L Triglycerides LDL Cholesterol Direct HDL Cholesterol Urine WBC (Auto) Crossmatch 03/03/19 03/03/19 03/03/19 09:03 10:17 11:15 WBC RBC Hgb Hct MCHC RDW Plt Count Seg Neuts % (Manual) Lymphocytes % (Manual) Monocytes % (Manual) Nucleated RBC % Seg Neutrophils # Man Lymphocytes # (Manual) Monocytes # (Manual) PT INR D-Dimer POC ABG pH POC ABG pCO2 POC ABG pO2 Sodium Potassium Chloride Carbon Dioxide BUN Creatinine Glucose POC Glucose 108 H 113 H 126 H Hemoglobin A1c Lactic Acid Calcium Magnesium Total Bilirubin Direct Bilirubin AST ALT Alkaline Phosphatase Total Creatine Kinase CK-MB (CK-2) Troponin T NT-Pro-B Natriuret Pep Total Protein Albumin Triglycerides LDL Cholesterol Direct HDL Cholesterol Urine WBC (Auto) Crossmatch 03/03/19 03/03/19 03/03/19 13:38 17:02 20:41 WBC RBC Hgb Hct MCHC RDW Plt Count Seg Neuts % (Manual) Lymphocytes % (Manual) Monocytes % (Manual) Nucleated RBC % Seg Neutrophils # Man Lymphocytes # (Manual) Monocytes # (Manual) PT INR D-Dimer > 35830 H POC ABG pH POC ABG pCO2 POC ABG pO2 Sodium Potassium Chloride Carbon Dioxide BUN Creatinine Glucose POC Glucose 195 H 195 H Hemoglobin A1c Lactic Acid Calcium Magnesium Total Bilirubin Direct Bilirubin AST ALT Alkaline Phosphatase Total Creatine Kinase CK-MB (CK-2) Troponin T NT-Pro-B Natriuret Pep Total Protein Albumin Triglycerides LDL Cholesterol Direct HDL Cholesterol Urine WBC (Auto) Crossmatch 03/03/19 03/04/19 03/04/19 23:48 04:32 05:15 WBC RBC Hgb Hct MCHC RDW Plt Count Seg Neuts % (Manual) Lymphocytes % (Manual) Monocytes % (Manual) Nucleated RBC % Seg Neutrophils # Man Lymphocytes # (Manual) Monocytes # (Manual) PT INR D-Dimer POC ABG pH POC ABG pCO2 POC ABG pO2 Sodium Potassium 5.8 H Chloride 96.2 L Carbon Dioxide BUN 46 H Creatinine 4.6 H Glucose 253 H POC Glucose 206 H 248 H Hemoglobin A1c Lactic Acid Calcium 6.5 L Magnesium Total Bilirubin 1.30 H Direct Bilirubin AST 1662 H ALT 1186 H Alkaline Phosphatase 250 H Total Creatine Kinase CK-MB (CK-2) Troponin T NT-Pro-B Natriuret Pep Total Protein 4.3 L Albumin 1.7 L Triglycerides LDL Cholesterol Direct HDL Cholesterol Urine WBC (Auto) Crossmatch 03/04/19 03/04/19 03/04/19 05:15 05:15 07:55 WBC RBC Hgb 9.2 L Hct 28.0 L MCHC RDW Plt Count 123 L Seg Neuts % (Manual) Lymphocytes % (Manual) Monocytes % (Manual) Nucleated RBC % Seg Neutrophils # Man Lymphocytes # (Manual) Monocytes # (Manual) PT INR D-Dimer POC ABG pH POC ABG pCO2 POC ABG pO2 Sodium Potassium Chloride Carbon Dioxide BUN Creatinine Glucose POC Glucose 264 H Hemoglobin A1c Lactic Acid 3.40 H* Calcium Magnesium Total Bilirubin Direct Bilirubin AST ALT Alkaline Phosphatase Total Creatine Kinase CK-MB (CK-2) Troponin T NT-Pro-B Natriuret Pep Total Protein Albumin Triglycerides LDL Cholesterol Direct HDL Cholesterol Urine WBC (Auto) Crossmatch 03/04/19 03/04/19 03/04/19 08:08 11:27 14:14 WBC RBC Hgb Hct MCHC RDW Plt Count Seg Neuts % (Manual) Lymphocytes % (Manual) Monocytes % (Manual) Nucleated RBC % Seg Neutrophils # Man Lymphocytes # (Manual) Monocytes # (Manual) PT INR D-Dimer POC ABG pH POC ABG pCO2 POC ABG pO2 122 H Sodium Potassium Chloride Carbon Dioxide BUN Creatinine Glucose POC Glucose 269 H Hemoglobin A1c Lactic Acid 3.50 H* Calcium Magnesium Total Bilirubin Direct Bilirubin AST ALT Alkaline Phosphatase Total Creatine Kinase CK-MB (CK-2) Troponin T NT-Pro-B Natriuret Pep Total Protein Albumin Triglycerides LDL Cholesterol Direct HDL Cholesterol Urine WBC (Auto) Crossmatch
[2019-03-04] MEDS: LANTUS SUB-Q SCH (15:39)
--- NOTE | 2019-03-04 16:09 | Progress Note ---
Assessment and Plan Cultures: 02/13/2019 blood culture: E. coli, 4 out of 4 bottles 02/14/2019 urine culture: E. coli 02/16/2019 Blood culture: no growth 02/22/2019 Blood culture: no growth 03/01/2019 Blood culture: no growth 03/01/2019 urine culture: no significant growth 03/02/2019 tracheal aspirate: normal resp juan A/P: 58-year-old female with hypertension, diabetes mellitus type 2, peripheral vascular disease who was recently hospitalized from vascular surgery clinic due to right second toe gangrene. She underwent thrombolysis of the right lower extremity and underwent a stent placement. She developed compartment syndrome requiring fasciotomy on 01/29/2019 and then was discharged to a rehabilitation facility, admitted with: 1) Cardiac arrest and shock with new CVA: severe lactic acidosis, anemia. Etiology septic v/s cardiogenic. Critically ill, on pressors, ventilator. Also with bilateral pneumonia, probably from aspiration following arrest. 2) E.coli bacteremia: urinary source. Completed antibiotics (Cefazolin) several days ago with repeat cultures negative. 3) UTI: U/a shows Pyuria, WBC > 182 with large LE. Urine culture grew E.coli. Completed abx. 4) Acute kidney failure: Urine output low. Critically ill. Creatinine rising. 5) Peripheral vascular disease: Vascular surgery following. Right second toe ischemia and gangrene. 6) Diabetes mellitus type 2, uncontrolled. 7) Shock liver Recs: continue IV Cefepime (renally adjusted) prognosis is poor, recommend palliative care MD [facility] C: [phone] O: [phone] F: [phone] Subjective Date of service: 03/04/19 Principal diagnosis: anemia Interval history: Remains on the vent, unresponsive. On pressors. Objective - Exam Narrative Exam: Physical Exam: Constitutional: intubated, unresponsive Head, Ears, Nose: Normocephalic, atraumatic. External ears, nose normal Eyes: Conjunctivae/corneas clear. No icterus. No ptosis. Neck: Supple, no meningeal signs Oral: intubated Cardiovascular: S1, S2 normal. Respiratory: AE b/l equal. No crackles. GI: bowel sounds hypoactive. No peritoneal signs Musculoskeletal: Right second toe with blackish discoloration, right calf with dressing Skin: No rash or abscess Hem/Lymphatic: No palpable cervical or supraclavicular nodes. No lymphangitis Psych: no agitation Neurological: intubated, on vent, unresponsive - Constitutional Vitals: Vital Signs Temp Pulse Resp BP Pulse Ox 98.3 F 112 H 20 102/53 100 03/04/19 12:00 03/04/19 15:00 03/04/19 15:00 03/04/19 14:45 03/04/19 14:45 Temperature -Last 24 Hours Temperature 98.3 F Temperature 98.7 F Temperature 98.4 F Temperature 98.7 F Temperature 98.9 F Temperature 98.9 F - Labs CBC & Chem 7: 03/04/19 05:15 03/04/19 05:15 Labs: Abnormal lab results 03/03/19 03/03/19 03/03/19 Range/Units 17:02 20:41 23:48 Hgb (10.1-14.3) gm/dl Hct (30.3-42.9) % Plt Count (140-440) K/mm3 POC ABG pO2 (80-105) Potassium (3.6-5.0) mmol/L Chloride (98-107) mmol/L BUN (7-17) mg/dL Creatinine (0.7-1.2) mg/dL Glucose (65-100) mg/dL POC Glucose 195 H 195 H 206 H (70-105) Lactic Acid (0.7-2.0) mmol/L Calcium (8.4-10.2) mg/dL Total Bilirubin (0.1-1.2) mg/dL AST (5-40) units/L ALT (7-56) units/L Alkaline Phosphatase (35-129) units/L Total Protein (6.3-8.2) g/dL Albumin (3.9-5) g/dL 03/04/19 03/04/19 03/04/19 Range/Units 04:32 05:15 05:15 Hgb 9.2 L (10.1-14.3) gm/dl Hct 28.0 L (30.3-42.9) % Plt Count 123 L (140-440) K/mm3 POC ABG pO2 (80-105) Potassium 5.8 H (3.6-5.0) mmol/L Chloride 96.2 L (98-107) mmol/L BUN 46 H (7-17) mg/dL Creatinine 4.6 H (0.7-1.2) mg/dL Glucose 253 H (65-100) mg/dL POC Glucose 248 H (70-105) Lactic Acid (0.7-2.0) mmol/L Calcium 6.5 L (8.4-10.2) mg/dL Total Bilirubin 1.30 H (0.1-1.2) mg/dL AST 1662 H (5-40) units/L ALT 1186 H (7-56) units/L Alkaline Phosphatase 250 H (35-129) units/L Total Protein 4.3 L (6.3-8.2) g/dL Albumin 1.7 L (3.9-5) g/dL 03/04/19 03/04/19 03/04/19 Range/Units 05:15 07:55 08:08 Hgb (10.1-14.3) gm/dl Hct (30.3-42.9) % Plt Count (140-440) K/mm3 POC ABG pO2 (80-105) Potassium (3.6-5.0) mmol/L Chloride (98-107) mmol/L BUN (7-17) mg/dL Creatinine (0.7-1.2) mg/dL Glucose (65-100) mg/dL POC Glucose 264 H (70-105) Lactic Acid 3.40 H* 3.50 H* (0.7-2.0) mmol/L Calcium (8.4-10.2) mg/dL Total Bilirubin (0.1-1.2) mg/dL AST (5-40) units/L ALT (7-56) units/L Alkaline Phosphatase (35-129) units/L Total Protein (6.3-8.2) g/dL Albumin (3.9-5) g/dL 03/04/19 03/04/19 Range/Units 11:27 14:14 Hgb (10.1-14.3) gm/dl Hct (30.3-42.9) % Plt Count (140-440) K/mm3 POC ABG pO2 122 H (80-105) Potassium (3.6-5.0) mmol/L Chloride (98-107) mmol/L BUN (7-17) mg/dL Creatinine (0.7-1.2) mg/dL Glucose (65-100) mg/dL POC Glucose 269 H (70-105) Lactic Acid (0.7-2.0) mmol/L Calcium (8.4-10.2) mg/dL Total Bilirubin (0.1-1.2) mg/dL AST (5-40) units/L ALT (7-56) units/L Alkaline Phosphatase (35-129) units/L Total Protein (6.3-8.2) g/dL Albumin (3.9-5) g/dL
[2019-03-04] MEDS: NACL 0.9% 1000 ML 1,000 ML IV SCH (18:29)
[2019-03-04] MEDS: LEVOPHED 8 MG in NACL 0.9% 250ML 242 ML IV SCH (22:30)
[2019-03-05] MEDS: HumaLOG SUB-Q SCH ×5 (00:55→20:00)
[2019-03-05] MEDS: DUONEB *Not for PRN Use IH SCH ×4 (02:00→19:22)
[2019-03-05] MEDS: LEVOPHED 8 MG in NACL 0.9% 250ML 242 ML IV SCH ×3 (03:40→22:37)
--- NOTE | 2019-03-05 04:46 | XRay Report ---
PROCEDURE: XR CHEST 1V AP TECHNIQUE: Chest single AP HISTORY: follow up respiratory failure COMPARISONS: March 04, 2019 FINDINGS: Heart is borderline enlarged. Lung status is slightly improved. There are decreased infiltrates hua red to prior study. There is no pleural effusion or pneumothorax. The endotracheal tube is in the mid trachea. NG tube is in the stomach. There is a left-sided PICC line. The tip is in the superior vena cava. IMPRESSION: Heart is borderline enlarged. Lung status is slightly improved. There are decreased infiltrates hua red to prior study. There is no pleural effusion or pneumothorax. The endotracheal tube is in the mid trachea. NG tube is in the stomach. There is a left-sided PICC line. The tip is in the superior vena cava. This document is electronically signed by Denis Crook MD., March 05 2019 04:44:05 AM ET
[2019-03-05] MEDS: LASIX IV SCH ×2 (05:20→17:23)
--- NOTE | 2019-03-05 08:06 | Progress Note ---
Assessment and Plan - Patient Problems (1) GERALDINE (acute kidney injury) Current Visit: Yes Status: Acute Plan to address problem: Likely in the setting of ischemic acute tubular necrosis secondary to cardiac arrest and an NSTEMI. Continue current supportive care. We decreased IV fluids to normal saline at 42 mL an hour. Unfortunately minimal response with diuresis at this time. Patient is a poor candidate for aggressive renal measures such as dialysis given her overall poor overall neurologic status. family meeting done yesterday, awaiting final decision per family. (2) NSTEMI (non-ST elevated myocardial infarction) Current Visit: Yes Status: Acute Plan to address problem: Further management per cardiology recommendations. Heparin drip has been discontinued at this time secondary to her level of anemia. We'll continue to monitor. . (3) Encephalopathy acute Current Visit: Yes Status: Acute Plan to address problem: Currently intubated at this time. Remains unresponsive, with CT concerning for cerebllar infarct. Patient is too unstable for follow up MRI as she went into PEA after CT head yesterday. Neurology has been consulted and completed nuclear brain imaging yesterday. She has no cerebellar reflexes at this time. s/p family meeting yesterday, pending final decision (4) Hyperkalemia Current Visit: Yes Status: Acute Plan to address problem: In the setting of hyperglycemia/poorly controlled DM and GERALDINE. conservative/medical management at this point. Not an ideal candidate for aggressive measures such as dialysis. (5) Hyperosmolar non-ketotic state in patient with type 2 diabetes mellitus Current Visit: Yes Status: Acute Plan to address problem: Management per primary attending. (6) Hyponatremia Current Visit: Yes Status: Acute Plan to address problem: Likely in the setting of hyperglycemia. Will monitor. (7) Sepsis Current Visit: Yes Status: Suspected Qualifiers: Sepsis type: sepsis due to unspecified organism Qualified Code(s): A41.9 - Sepsis, unspecified organism Plan to address problem: Unclear etiology, possible underlying UTI vs right gangrenous toe, await culture results. Antibiotics to be dosed per her decreased renal clearance. (8) Peripheral vascular disease Current Visit: Yes Status: Chronic Plan to address problem: s/p fasciotomy in the setting of developing acute compartment syndrome post thrombolysis. Management per vascular surgery. Status post debridement of RLE wound earlier during this admission Subjective Date of service: 03/05/19 Principal diagnosis: anemia Interval history: Overall prognosis is poor. No significant brain stem function. s/p nuclear im aging of brain noted. No new renal function labs. Family meeting yesterday. Objective - Vital Signs Vital signs: Vital Signs - 12hr 03/04/19 03/04/19 03/04/19 20:15 20:30 20:39 Temperature Pulse Rate 111 H 108 H 107 H Pulse Rate [ Anterior Bilateral Throughout] Pulse Rate [ From Monitor] Respiratory 20 20 20 Rate Respiratory Rate [Anterior Bilateral Throughout] Blood Pressure 102/50 97/49 97/49 O2 Sat by Pulse 97 97 97 Oximetry 03/04/19 03/04/19 03/04/19 20:45 21:00 21:15 Temperature Pulse Rate 108 H 107 H 108 H Pulse Rate [ Anterior Bilateral Throughout] Pulse Rate [ From Monitor] Respiratory 20 20 20 Rate Respiratory Rate [Anterior Bilateral Throughout] Blood Pressure 95/52 97/48 97/50 O2 Sat by Pulse 97 97 98 Oximetry 03/04/19 03/04/19 03/04/19 21:30 21:45 22:00 Temperature Pulse Rate 112 H 114 H 112 H Pulse Rate [ Anterior Bilateral Throughout] Pulse Rate [ From Monitor] Respiratory 19 19 19 Rate Respiratory Rate [Anterior Bilateral Throughout] Blood Pressure 106/55 111/56 89/48 O2 Sat by Pulse 100 100 100 Oximetry 03/04/19 03/04/19 03/04/19 22:15 22:30 22:45 Temperature Pulse Rate 113 H 113 H 107 H Pulse Rate [ Anterior Bilateral Throughout] Pulse Rate [ From Monitor] Respiratory 19 19 19 Rate Respiratory Rate [Anterior Bilateral Throughout] Blood Pressure 104/56 107/56 100/53 O2 Sat by Pulse 100 100 100 Oximetry 03/04/19 03/04/19 03/04/19 23:00 23:15 23:30 Temperature Pulse Rate 115 H 113 H 106 H Pulse Rate [ Anterior Bilateral Throughout] Pulse Rate [ From Monitor] Respiratory 19 20 20 Rate Respiratory Rate [Anterior Bilateral Throughout] Blood Pressure 107/56 108/54 105/55 O2 Sat by Pulse 100 98 98 Oximetry 03/04/19 03/04/19 03/05/19 23:45 23:54 00:00 Temperature 98.5 F Pulse Rate 104 H 103 H Pulse Rate [ Anterior Bilateral Throughout] Pulse Rate [ 104 H From Monitor] Respiratory 20 21 Rate Respiratory Rate [Anterior Bilateral Throughout] Blood Pressure 103/52 104/53 O2 Sat by Pulse 98 98 Oximetry 03/05/19 03/05/19 03/05/19 00:15 00:30 00:45 Temperature Pulse Rate 103 H 101 H 100 H Pulse Rate [ Anterior Bilateral Throughout] Pulse Rate [ From Monitor] Respiratory 20 20 20 Rate Respiratory Rate [Anterior Bilateral Throughout] Blood Pressure 100/52 101/51 102/54 O2 Sat by Pulse 98 98 98 Oximetry 03/05/19 03/05/19 03/05/19 01:00 01:15 01:30 Temperature Pulse Rate 100 H 99 H 100 H Pulse Rate [ Anterior Bilateral Throughout] Pulse Rate [ From Monitor] Respiratory 20 20 20 Rate Respiratory Rate [Anterior Bilateral Throughout] Blood Pressure 102/50 100/53 101/51 O2 Sat by Pulse 98 98 98 Oximetry 03/05/19 03/05/19 03/05/19 01:44 01:45 02:00 Temperature Pulse Rate 99 H 100 H Pulse Rate [ 100 H Anterior Bilateral Throughout] Pulse Rate [ From Monitor] Respiratory 22 20 Rate Respiratory 20 Rate [Anterior Bilateral Throughout] Blood Pressure 100/53 101/53 O2 Sat by Pulse 98 98 Oximetry 03/05/19 03/05/19 03/05/19 02:15 02:30 02:42 Temperature Pulse Rate 100 H 103 H 102 H Pulse Rate [ Anterior Bilateral Throughout] Pulse Rate [ From Monitor] Respiratory 20 20 Rate Respiratory Rate [Anterior Bilateral Throughout] Blood Pressure 100/55 101/45 102/54 O2 Sat by Pulse 98 98 98 Oximetry 03/05/19 03/05/19 03/05/19 02:45 03:00 03:15 Temperature Pulse Rate 103 H 106 H 103 H Pulse Rate [ Anterior Bilateral Throughout] Pulse Rate [ From Monitor] Respiratory 20 20 20 Rate Respiratory Rate [Anterior Bilateral Throughout] Blood Pressure 101/45 101/49 103/48 O2 Sat by Pulse 98 98 97 Oximetry 03/05/19 03/05/19 03/05/19 03:30 03:45 04:00 Temperature 99 F Pulse Rate 104 H 105 H 103 H Pulse Rate [ Anterior Bilateral Throughout] Pulse Rate [ 108 H From Monitor] Respiratory 20 20 20 Rate Respiratory Rate [Anterior Bilateral Throughout] Blood Pressure 106/52 109/54 103/52 O2 Sat by Pulse 98 98 97 Oximetry 03/05/19 03/05/19 03/05/19 04:15 04:30 04:45 Temperature Pulse Rate 105 H 106 H 106 H Pulse Rate [ Anterior Bilateral Throughout] Pulse Rate [ From Monitor] Respiratory 20 20 20 Rate Respiratory Rate [Anterior Bilateral Throughout] Blood Pressure 111/52 111/56 111/58 O2 Sat by Pulse 98 97 97 Oximetry 03/05/19 03/05/19 03/05/19 05:00 05:15 05:30 Temperature Pulse Rate 106 H 108 H 106 H Pulse Rate [ Anterior Bilateral Throughout] Pulse Rate [ From Monitor] Respiratory 20 20 20 Rate Respiratory Rate [Anterior Bilateral Throughout] Blood Pressure 111/58 115/55 110/57 O2 Sat by Pulse 97 98 98 Oximetry 03/05/19 03/05/19 03/05/19 05:45 06:00 06:15 Temperature Pulse Rate 106 H 108 H 109 H Pulse Rate [ Anterior Bilateral Throughout] Pulse Rate [ From Monitor] Respiratory 20 20 20 Rate Respiratory Rate [Anterior Bilateral Throughout] Blood Pressure 112/56 121/62 112/55 O2 Sat by Pulse 97 98 97 Oximetry 03/05/19 03/05/19 06:30 06:45 Temperature Pulse Rate 110 H 105 H Pulse Rate [ Anterior Bilateral Throughout] Pulse Rate [ From Monitor] Respiratory 25 H 13 Rate Respiratory Rate [Anterior Bilateral Throughout] Blood Pressure 97/57 102/52 O2 Sat by Pulse 97 98 Oximetry - General Appearance General appearance: obese, chronically ill, intubated, frail EENT: ATNC Neck: no thyromegaly, supple Respiratory: Present: Decreased Breath Sounds Cardiology: regular, S1S2 Gastrointestinal: normal Integumentary: warm and dry Neurologic: other (unresponsive off sedation) Musculoskeletal: other (+edema ) - Lab 03/04/19 05:15 03/04/19 05:15 Most recent lab results Calcium 6.5 mg/dL (8.4-10.2) L 03/04/19 05:15 Phosphorus 4.50 mg/dL (2.5-4.5) 03/03/19 08:30 Magnesium 1.60 mg/dL (1.7-2.3) L 03/03/19 08:30 - Imaging Chest x-ray: report reviewed Other: report reviewed - Allied health notes Allied health notes reviewed: nursing Medications & Allergies - Medications Allergies/Adverse Reactions: Allergies No Known Allergies Allergy (Verified 01/28/19 21:26) Home Medications: Home Medications Medication Instructions Recorded Confirmed Last Taken Type Aspirin [Low Dose Aspirin EC] 81 mg PO DAILY #30 tablet. 02/04/19 02/16/19 02/14/19 10:00 Rx Clopidogrel [Plavix] 75 mg PO QDAY #30 tablet 02/04/19 02/16/19 02/14/19 10:00 Rx Lispro Insulin [Humalog] 0 unit SUB-Q ACHS units 02/20/19 Unknown Rx Lispro Insulin [Humalog] 5 unit SUB-Q AC 30 Days units 02/20/19 Unknown Rx Multivitamin with Iron [Tab-A-Lupe 1 each PO DAILY #30 tablet 02/20/19 Unknown Rx with Iron] Valsartan [Diovan] 160 mg PO BID #60 tablet 02/20/19 Unknown Rx oxyCODONE /ACETAMINOPHEN [Percocet 1 tab PO Q6H PRN #20 tablet 02/20/19 Unknown Rx 5/325 mg] Insulin Glargine [Lantus VIAL] 22 units SUB-Q DAILY #1 vial 02/25/19 Unknown Rx Insulin Lispro [HumaLOG VIAL] 0 units SQ AC #1 vial 02/25/19 Unknown Rx Active Medications: Generic Name Dose Route Start Last Admin Trade Name Freq PRN Reason Stop Dose Admin Acetaminophen 650 mg 02/13/19 18:03 Tylenol PO Q4H PRN Pain MILD(1-3)/Fever >100.5/MARTÍNEZ Albuterol 2.5 mg 02/22/19 04:53 02/28/19 16:08 Proventil IH 2.5 mg Q6HRT PRN Administration Shortness Of Breath Albuterol/Ipratropium 1 ampul 02/28/19 16:45 03/05/19 02:00 Duoneb *Not For Prn Use* IH 1 ampul Q6HRT RAFAEL Administration Aspirin 325 mg 02/28/19 19:00 03/04/19 10:19 Aspirin PO 325 mg QDAY RAFAEL Administration Dextrose 50 ml 03/02/19 08:04 D50w (25gm) Syringe IV PRN PRN Hypoglycemia Fentanyl 50 mcg 02/28/19 21:01 Sublimaze IV Q10MIN PRN ANALGESIA Furosemide 80 mg 03/03/19 10:00 03/05/19 05:20 Lasix IV 80 mg 0600,1800 RAFAEL Administration Hydralazine HCl 10 mg 03/02/19 15:28 Apresoline IV Q4HR PRN BP >180/110 Hydrophilic Ointment 1 applic 02/28/19 21:29 Vaseline Lip Therapy TP Q2HR PRN Dry Lips Fentanyl Citrate 2,000 mcg in 100 mls @ 5.665 mls/hr 02/28/19 22:00 03/01/19 00:46 Fentanyl Drip Premix IV 0 mcg/kg/hr TITR RAFAEL 0 mls/hr Titration Protocol 1 MCG/KG/HR Dopamine HCl/Dextrose 800 mg in 250 mls @ 4.249 mls/hr 03/01/19 01:35 03/02/19 00:13 Intropin Drip 800 Mg/D5w 250 Ml IV 0 mcg/kg/min TITR RAFAEL 0 mls/hr Titration Protocol 2 MCG/KG/MIN Cefepime HCl 2 gm in 100 mls @ 200 mls/hr 03/01/19 20:00 03/04/19 10:20 Maxipime/Ns 2 Gm/100 Ml IV 200 mls/hr Q24HR RAFAEL Administration Protocol Sodium Chloride 1,000 mls @ 42 mls/hr 03/02/19 10:00 03/04/19 18:29 Nacl 0.9% 1000 Ml IV 42 mls/hr DIRECT RAFAEL Administration Dobutamine HCl/Dextrose 500 mg in 250 mls @ 16.995 mls/hr 03/04/19 11:00 03/04/19 23:30 Dobutrex Drip 500mg/D5w 250ml IV 0 mcg/kg/min DIRECT RAFAEL 0 mls/hr Infusion 5 MCG/KG/MIN Norepinephrine 8 mg/ Sodium 250 mls @ 3.75 mls/hr 03/04/19 21:00 03/05/19 03:40 Chloride IV 26 mcg/min TITR RAFAEL 48.75 mls/hr Administration Protocol 2 MCG/MIN Insulin Glargine 15 units 03/04/19 10:00 03/04/19 15:39 Lantus SUB-Q 15 units DAILY RAFAEL Administration Insulin Human Lispro 0 unit 03/03/19 12:00 03/05/19 05:19 Humalog SUB-Q 8 unit Q4H RAFAEL Administration Protocol Multi-Ingred Cream/Lotion/Oil/Oint 1 applic 03/03/19 10:39 03/03/19 11:07 Artificial Tears Ophth Oint OU 1 applic PRN PRN Administration Dry Eye(s) Ondansetron HCl 4 mg 02/13/19 18:03 Zofran IV Q8H PRN Nausea And Vomiting Pantoprazole Sodium 40 mg 03/02/19 22:00 03/04/19 22:28 Protonix IV 40 mg BID RAFAEL Administration Sodium Chloride 10 ml 02/13/19 22:00 03/04/19 22:28 Sodium Chloride Flush Syringe 10 Ml IV 10 ml BID RAFAEL Administration Sodium Chloride 10 ml 02/13/19 18:03 Sodium Chloride Flush Syringe 10 Ml IV PRN PRN LINE FLUSH
--- NOTE | 2019-03-05 08:51 | Progress Note ---
Assessment and Plan Impression: Shock , on pressors MSOF Acute bilateral cerebellar stroke. 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 NSTEMI with low EF Uncontrolled blood sugar with hyperosmolar state. Blood sugar slightly elevated today. May need to adjust sliding scale Pulmonary edema versus acute lung injury. Improved. Aspiration related to arrest also a consideration GERALDINE. Still poor output Severe metabolic acidosis, lactic. Corrected. ABGs adequate Sepsis source unknown. Previously with UTI. Completed antibiotics per ID Hyperkalemia. Needs f/u labs EKOS /arterial Thrombolysis to RLE for RLE ischemia, and R leg 4 compartment fasciotomy Recommendations Appreciate input from neurology,dismal complex scenario w MSOF. Poor prognosis We'll continue current ventilatory support Adjust sliding scale insulin, goal is to maintain blood sugar between 150-180 mg per DL Wean pressors as tolerated No family available at the bedside. I reviewed Dr. Castillo, comments with the family. Very difficult decision scenario for them, will wait on their input regarding how they want to proceed. At minimum, I think she is likely to get DO NOT RESUSCITATE CODE STATUS and later on decide whether to proceed with further care are not. Critical care time was 31 minutes of [id number] evaluation and coordination of care Subjective Date of service: 03/05/19 Principal diagnosis: anemia Interval history: Intubated and nonresponsive Objective Vital Signs - 12hr 03/04/19 03/04/19 03/04/19 21:00 21:15 21:30 Temperature Pulse Rate 107 H 108 H 112 H Pulse Rate [ Anterior Bilateral Throughout] Pulse Rate [ From Monitor] Respiratory 20 20 19 Rate Respiratory Rate [Anterior Bilateral Throughout] Blood Pressure 97/48 97/50 106/55 O2 Sat by Pulse 97 98 100 Oximetry 03/04/19 03/04/19 03/04/19 21:45 22:00 22:15 Temperature Pulse Rate 114 H 112 H 113 H Pulse Rate [ Anterior Bilateral Throughout] Pulse Rate [ From Monitor] Respiratory 19 19 19 Rate Respiratory Rate [Anterior Bilateral Throughout] Blood Pressure 111/56 89/48 104/56 O2 Sat by Pulse 100 100 100 Oximetry 03/04/19 03/04/19 03/04/19 22:30 22:45 23:00 Temperature Pulse Rate 113 H 107 H 115 H Pulse Rate [ Anterior Bilateral Throughout] Pulse Rate [ From Monitor] Respiratory 19 19 19 Rate Respiratory Rate [Anterior Bilateral Throughout] Blood Pressure 107/56 100/53 107/56 O2 Sat by Pulse 100 100 100 Oximetry 03/04/19 03/04/19 03/04/19 23:15 23:30 23:45 Temperature Pulse Rate 113 H 106 H 104 H Pulse Rate [ Anterior Bilateral Throughout] Pulse Rate [ From Monitor] Respiratory 20 20 20 Rate Respiratory Rate [Anterior Bilateral Throughout] Blood Pressure 108/54 105/55 103/52 O2 Sat by Pulse 98 98 98 Oximetry 03/04/19 03/05/19 03/05/19 23:54 00:00 00:15 Temperature 98.5 F Pulse Rate 103 H 103 H Pulse Rate [ Anterior Bilateral Throughout] Pulse Rate [ 104 H From Monitor] Respiratory 21 20 Rate Respiratory Rate [Anterior Bilateral Throughout] Blood Pressure 104/53 100/52 O2 Sat by Pulse 98 98 Oximetry 03/05/19 03/05/19 03/05/19 00:30 00:45 01:00 Temperature Pulse Rate 101 H 100 H 100 H Pulse Rate [ Anterior Bilateral Throughout] Pulse Rate [ From Monitor] Respiratory 20 20 20 Rate Respiratory Rate [Anterior Bilateral Throughout] Blood Pressure 101/51 102/54 102/50 O2 Sat by Pulse 98 98 98 Oximetry 03/05/19 03/05/19 03/05/19 01:15 01:30 01:44 Temperature Pulse Rate 99 H 100 H Pulse Rate [ 100 H Anterior Bilateral Throughout] Pulse Rate [ From Monitor] Respiratory 20 20 Rate Respiratory 20 Rate [Anterior Bilateral Throughout] Blood Pressure 100/53 101/51 O2 Sat by Pulse 98 98 Oximetry 03/05/19 03/05/19 03/05/19 01:45 02:00 02:15 Temperature Pulse Rate 99 H 100 H 100 H Pulse Rate [ Anterior Bilateral Throughout] Pulse Rate [ From Monitor] Respiratory 22 20 20 Rate Respiratory Rate [Anterior Bilateral Throughout] Blood Pressure 100/53 101/53 100/55 O2 Sat by Pulse 98 98 98 Oximetry 03/05/19 03/05/19 03/05/19 02:30 02:42 02:45 Temperature Pulse Rate 103 H 102 H 103 H Pulse Rate [ Anterior Bilateral Throughout] Pulse Rate [ From Monitor] Respiratory 20 20 Rate Respiratory Rate [Anterior Bilateral Throughout] Blood Pressure 101/45 102/54 101/45 O2 Sat by Pulse 98 98 98 Oximetry 04/04/1803/05/19 03/05/19 03:00 03:15 03:30 Temperature Pulse Rate 106 H 103 H 104 H Pulse Rate [ Anterior Bilateral Throughout] Pulse Rate [ From Monitor] Respiratory 20 20 20 Rate Respiratory Rate [Anterior Bilateral Throughout] Blood Pressure 101/49 103/48 106/52 O2 Sat by Pulse 98 97 98 Oximetry 03/05/19 03/05/19 03/05/19 03:45 04:00 04:15 Temperature 99 F Pulse Rate 105 H 103 H 105 H Pulse Rate [ Anterior Bilateral Throughout] Pulse Rate [ 108 H From Monitor] Respiratory 20 20 20 Rate Respiratory Rate [Anterior Bilateral Throughout] Blood Pressure 109/54 103/52 111/52 O2 Sat by Pulse 98 97 98 Oximetry 03/05/19 03/05/19 03/05/19 04:30 04:45 05:00 Temperature Pulse Rate 106 H 106 H 106 H Pulse Rate [ Anterior Bilateral Throughout] Pulse Rate [ From Monitor] Respiratory 20 20 20 Rate Respiratory Rate [Anterior Bilateral Throughout] Blood Pressure 111/56 111/58 111/58 O2 Sat by Pulse 97 97 97 Oximetry 03/05/19 03/05/19 03/05/19 05:15 05:30 05:45 Temperature Pulse Rate 108 H 106 H 106 H Pulse Rate [ Anterior Bilateral Throughout] Pulse Rate [ From Monitor] Respiratory 20 20 20 Rate Respiratory Rate [Anterior Bilateral Throughout] Blood Pressure 115/55 110/57 112/56 O2 Sat by Pulse 98 98 97 Oximetry 03/05/19 03/05/19 03/05/19 06:00 06:15 06:30 Temperature Pulse Rate 108 H 109 H 110 H Pulse Rate [ Anterior Bilateral Throughout] Pulse Rate [ From Monitor] Respiratory 20 20 25 H Rate Respiratory Rate [Anterior Bilateral Throughout] Blood Pressure 121/62 112/55 97/57 O2 Sat by Pulse 98 97 97 Oximetry 03/05/19 03/05/19 06:45 08:42 Temperature Pulse Rate 105 H 105 H Pulse Rate [ Anterior Bilateral Throughout] Pulse Rate [ From Monitor] Respiratory 13 Rate Respiratory Rate [Anterior Bilateral Throughout] Blood Pressure 102/52 112/51 O2 Sat by Pulse 98 98 Oximetry Constitutional: comatose Eyes: non-icteric, other (pupils equal mostly dilated by report if any corneals, conjunctival swelling) ENT: other (ETT in position) Neck: supple, no JVD (broad neck) Ascultation: Bilateral: clear, diminished breath sounds Cardiovascular: regular rate and rhythm Gastrointestinal: normoactive bowel sounds, non-distended Extremities: other (right lower extremity bandage in place, ) Neurologic: other (non reactive,apneas noted when vent rate support on hold > 1 min) CBC and BMP: 03/04/19 05:15 03/04/19 05:15 ABG, PT/INR, D-dimer: ABG POC ABG pH 7.361 (7.35-7.45) 03/05/19 03:07 POC ABG pCO2 37.4 (35-45) 03/05/19 03:07 POC ABG pO2 81 (80-105) 03/05/19 03:07 POC ABG HCO3 21.2 (22-26 mml/L) 03/05/19 03:07 POC ABG Total CO2 22 (23-27mmol/L) 03/05/19 03:07 POC ABG O2 Sat 96 03/05/19 03:07 PT/INR, D-dimer PT 15.5 Sec. (12.2-14.9) H 02/28/19 18:33 INR 1.16 (0.87-1.13) H 02/28/19 18:33 D-Dimer > 28286 ng/mlDDU (0-234) H 03/03/19 13:38 Abnormal lab findings: Abnormal Labs 02/13/19 02/13/19 02/13/19 13:55 14:08 14:08 WBC 21.3 H RBC 3.00 L Hgb 8.5 L Hct 26.7 L MCHC RDW 16.4 H Plt Count 528 H Seg Neuts % (Manual) 89.0 H Lymphocytes % (Manual) 4.0 L Monocytes % (Manual) Nucleated RBC % 2.0 H Seg Neutrophils # Man 19.0 H Lymphocytes # (Manual) 0.9 L Monocytes # (Manual) PT INR D-Dimer POC ABG pH POC ABG pCO2 POC ABG pO2 Sodium 129 L Potassium 5.4 H Chloride 91.8 L Carbon Dioxide 17 L BUN 52 H Creatinine 2.5 H Glucose 402 H POC Glucose 389 H Hemoglobin A1c Lactic Acid Calcium Magnesium Total Bilirubin 1.50 H Direct Bilirubin 1.1 H AST 61 H ALT Alkaline Phosphatase 271 H Total Creatine Kinase CK-MB (CK-2) Troponin T NT-Pro-B Natriuret Pep Total Protein Albumin 2.3 L Triglycerides LDL Cholesterol Direct HDL Cholesterol Urine WBC (Auto) Crossmatch 02/13/19 02/13/19 02/13/19 14:15 14:15 14:20 WBC RBC Hgb Hct MCHC RDW Plt Count Seg Neuts % (Manual) Lymphocytes % (Manual) Monocytes % (Manual) Nucleated RBC % Seg Neutrophils # Man Lymphocytes # (Manual) Monocytes # (Manual) PT 15.6 H INR 1.17 H D-Dimer POC ABG pH POC ABG pCO2 POC ABG pO2 Sodium Potassium Chloride Carbon Dioxide BUN Creatinine Glucose POC Glucose Hemoglobin A1c Lactic Acid Calcium Magnesium 1.60 L Total Bilirubin Direct Bilirubin AST ALT Alkaline Phosphatase Total Creatine Kinase 1295 H CK-MB (CK-2) Troponin T 0.072 H NT-Pro-B Natriuret Pep 6167 H Total Protein Albumin Triglycerides 329 H LDL Cholesterol Direct 36 L HDL Cholesterol 17 L Urine WBC (Auto) Crossmatch 02/13/19 02/13/19 02/13/19 15:36 18:15 20:59 WBC RBC Hgb Hct MCHC RDW Plt Count Seg Neuts % (Manual) Lymphocytes % (Manual) Monocytes % (Manual) Nucleated RBC % Seg Neutrophils # Man Lymphocytes # (Manual) Monocytes # (Manual) PT INR D-Dimer POC ABG pH POC ABG pCO2 POC ABG pO2 Sodium Potassium Chloride Carbon Dioxide BUN Creatinine Glucose POC Glucose 293 H 390 H Hemoglobin A1c 9.2 H Lactic Acid Calcium Magnesium Total Bilirubin Direct Bilirubin AST ALT Alkaline Phosphatase Total Creatine Kinase CK-MB (CK-2) Troponin T NT-Pro-B Natriuret Pep Total Protein Albumin Triglycerides LDL Cholesterol Direct HDL Cholesterol Urine WBC (Auto) Crossmatch 02/14/19 02/14/19 02/14/19 07:45 08:15 08:15 WBC 23.2 H RBC 2.89 L Hgb 8.3 L Hct 25.3 L MCHC RDW 16.6 H Plt Count 457 H Seg Neuts % (Manual) 91.0 H Lymphocytes % (Manual) 3.0 L Monocytes % (Manual) Nucleated RBC % Seg Neutrophils # Man 21.1 H Lymphocytes # (Manual) 0.7 L Monocytes # (Manual) 1.2 H PT INR D-Dimer POC ABG pH POC ABG pCO2 POC ABG pO2 Sodium 126 L Potassium 5.3 H Chloride 91.5 L Carbon Dioxide 17 L BUN 65 H Creatinine 2.4 H Glucose 418 H POC Glucose Hemoglobin A1c Lactic Acid Calcium 8.2 L Magnesium 2.90 H Total Bilirubin 1.60 H Direct Bilirubin AST 47 H ALT Alkaline Phosphatase 218 H Total Creatine Kinase CK-MB (CK-2) Troponin T NT-Pro-B Natriuret Pep Total Protein 6.2 L Albumin 2.2 L Triglycerides LDL Cholesterol Direct HDL Cholesterol Urine WBC (Auto) Crossmatch 02/14/19 02/14/19 02/14/19 09:07 09:30 18:53 WBC RBC Hgb Hct MCHC RDW Plt Count Seg Neuts % (Manual) Lymphocytes % (Manual) Monocytes % (Manual) Nucleated RBC % Seg Neutrophils # Man Lymphocytes # (Manual) Monocytes # (Manual) PT INR D-Dimer POC ABG pH POC ABG pCO2 POC ABG pO2 Sodium Potassium Chloride Carbon Dioxide BUN Creatinine Glucose POC Glucose 384 H 353 H Hemoglobin A1c Lactic Acid Calcium Magnesium Total Bilirubin Direct Bilirubin AST ALT Alkaline Phosphatase Total Creatine Kinase CK-MB (CK-2) Troponin T NT-Pro-B Natriuret Pep Total Protein Albumin Triglycerides LDL Cholesterol Direct HDL Cholesterol Urine WBC (Auto) > 182.0 H Crossmatch 02/14/19 02/14/19 02/15/19 21:33 21:40 01:45 WBC RBC Hgb Hct MCHC RDW Plt Count Seg Neuts % (Manual) Lymphocytes % (Manual) Monocytes % (Manual) Nucleated RBC % Seg Neutrophils # Man Lymphocytes # (Manual) Monocytes # (Manual) PT INR D-Dimer POC ABG pH POC ABG pCO2 POC ABG pO2 Sodium Potassium Chloride Carbon Dioxide BUN Creatinine Glucose POC Glucose 404 H 360 H 299 H Hemoglobin A1c Lactic Acid Calcium Magnesium Total Bilirubin Direct Bilirubin AST ALT Alkaline Phosphatase Total Creatine Kinase CK-MB (CK-2) Troponin T NT-Pro-B Natriuret Pep Total Protein Albumin Triglycerides LDL Cholesterol Direct HDL Cholesterol Urine WBC (Auto) Crossmatch 02/15/19 02/15/19 02/15/19 05:32 05:38 11:35 WBC RBC Hgb Hct MCHC RDW Plt Count Seg Neuts % (Manual) Lymphocytes % (Manual) Monocytes % (Manual) Nucleated RBC % Seg Neutrophils # Man Lymphocytes # (Manual) Monocytes # (Manual) PT INR D-Dimer POC ABG pH POC ABG pCO2 POC ABG pO2 Sodium Potassium Chloride Carbon Dioxide BUN Creatinine Glucose POC Glucose 402 H 393 H Hemoglobin A1c Lactic Acid Calcium Magnesium 2.80 H Total Bilirubin Direct Bilirubin AST ALT Alkaline Phosphatase Total Creatine Kinase 448 H CK-MB (CK-2) Troponin T NT-Pro-B Natriuret Pep Total Protein Albumin Triglycerides LDL Cholesterol Direct HDL Cholesterol Urine WBC (Auto) Crossmatch 02/15/19 02/15/19 02/15/19 14:15 14:48 17:21 WBC RBC Hgb Hct MCHC RDW Plt Count Seg Neuts % (Manual) Lymphocytes % (Manual) Monocytes % (Manual) Nucleated RBC % Seg Neutrophils # Man Lymphocytes # (Manual) Monocytes # (Manual) PT INR D-Dimer POC ABG pH POC ABG pCO2 POC ABG pO2 Sodium 128 L Potassium Chloride 92.4 L Carbon Dioxide 21 L BUN 86 H Creatinine 1.9 H Glucose 436 H POC Glucose 386 H 347 H Hemoglobin A1c Lactic Acid Calcium 8.1 L Magnesium Total Bilirubin Direct Bilirubin AST ALT Alkaline Phosphatase Total Creatine Kinase CK-MB (CK-2) Troponin T NT-Pro-B Natriuret Pep Total Protein Albumin Triglycerides LDL Cholesterol Direct HDL Cholesterol Urine WBC (Auto) Crossmatch 02/15/19 02/15/19 02/16/19 22:32 23:51 04:08 WBC RBC Hgb Hct MCHC RDW Plt Count Seg Neuts % (Manual) Lymphocytes % (Manual) Monocytes % (Manual) Nucleated RBC % Seg Neutrophils # Man Lymphocytes # (Manual) Monocytes # (Manual) PT INR D-Dimer POC ABG pH POC ABG pCO2 POC ABG pO2 Sodium Potassium Chloride Carbon Dioxide BUN Creatinine Glucose POC Glucose 272 H 244 H 253 H Hemoglobin A1c Lactic Acid Calcium Magnesium Total Bilirubin Direct Bilirubin AST ALT Alkaline Phosphatase Total Creatine Kinase CK-MB (CK-2) Troponin T NT-Pro-B Natriuret Pep Total Protein Albumin Triglycerides LDL Cholesterol Direct HDL Cholesterol Urine WBC (Auto) Crossmatch 02/16/19 02/16/19 02/16/19 05:29 08:52 11:55 WBC RBC Hgb Hct MCHC RDW Plt Count Seg Neuts % (Manual) Lymphocytes % (Manual) Monocytes % (Manual) Nucleated RBC % Seg Neutrophils # Man Lymphocytes # (Manual) Monocytes # (Manual) PT INR D-Dimer POC ABG pH POC ABG pCO2 POC ABG pO2 Sodium Potassium Chloride Carbon Dioxide BUN Creatinine Glucose POC Glucose 262 H 313 H Hemoglobin A1c Lactic Acid Calcium Magnesium Total Bilirubin Direct Bilirubin AST ALT Alkaline Phosphatase Total Creatine Kinase 200 H CK-MB (CK-2) Troponin T NT-Pro-B Natriuret Pep Total Protein Albumin Triglycerides LDL Cholesterol Direct HDL Cholesterol Urine WBC (Auto) Crossmatch 02/16/19 02/16/19 02/17/19 16:20 22:38 00:15 WBC RBC Hgb Hct MCHC RDW Plt Count Seg Neuts % (Manual) Lymphocytes % (Manual) Monocytes % (Manual) Nucleated RBC % Seg Neutrophils # Man Lymphocytes # (Manual) Monocytes # (Manual) PT INR D-Dimer POC ABG pH POC ABG pCO2 POC ABG pO2 Sodium 131 L Potassium Chloride 95.7 L Carbon Dioxide 21 L BUN 70 H Creatinine 1.3 H Glucose 121 H POC Glucose 146 H 125 H Hemoglobin A1c Lactic Acid Calcium 8.0 L Magnesium Total Bilirubin Direct Bilirubin AST ALT Alkaline Phosphatase Total Creatine Kinase CK-MB (CK-2) Troponin T NT-Pro-B Natriuret Pep Total Protein Albumin Triglycerides LDL Cholesterol Direct HDL Cholesterol Urine WBC (Auto) Crossmatch 02/17/19 02/17/19 02/17/19 03:49 07:32 10:41 WBC 13.3 H RBC 2.92 L Hgb 8.2 L Hct 24.6 L MCHC RDW 16.2 H Plt Count Seg Neuts % (Manual) 85.0 H Lymphocytes % (Manual) 8.0 L Monocytes % (Manual) Nucleated RBC % Seg Neutrophils # Man 11.3 H Lymphocytes # (Manual) 1.1 L Monocytes # (Manual) PT INR D-Dimer POC ABG pH POC ABG pCO2 POC ABG pO2 Sodium 129 L Potassium 5.2 H D Chloride 95.9 L Carbon Dioxide 18 L BUN 69 H Creatinine 1.4 H Glucose POC Glucose 146 H Hemoglobin A1c Lactic Acid Calcium 8.1 L Magnesium Total Bilirubin Direct Bilirubin AST ALT Alkaline Phosphatase Total Creatine Kinase CK-MB (CK-2) Troponin T NT-Pro-B Natriuret Pep Total Protein Albumin Triglycerides LDL Cholesterol Direct HDL Cholesterol Urine WBC (Auto) Crossmatch 02/17/19 02/17/19 02/18/19 11:14 16:18 01:14 WBC 14.6 H RBC 2.53 L Hgb 7.1 L Hct 21.7 L MCHC RDW 16.6 H Plt Count Seg Neuts % (Manual) 72.0 H Lymphocytes % (Manual) 8.0 L Monocytes % (Manual) 11.0 H Nucleated RBC % Seg Neutrophils # Man 10.5 H Lymphocytes # (Manual) Monocytes # (Manual) 1.6 H PT INR D-Dimer POC ABG pH POC ABG pCO2 POC ABG pO2 Sodium Potassium Chloride Carbon Dioxide BUN Creatinine Glucose POC Glucose 219 H 176 H Hemoglobin A1c Lactic Acid Calcium Magnesium Total Bilirubin Direct Bilirubin AST ALT Alkaline Phosphatase Total Creatine Kinase CK-MB (CK-2) Troponin T NT-Pro-B Natriuret Pep Total Protein Albumin Triglycerides LDL Cholesterol Direct HDL Cholesterol Urine WBC (Auto) Crossmatch 02/18/19 02/18/19 02/18/19 04:25 11:35 11:57 WBC RBC Hgb Hct MCHC RDW Plt Count Seg Neuts % (Manual) Lymphocytes % (Manual) Monocytes % (Manual) Nucleated RBC % Seg Neutrophils # Man Lymphocytes # (Manual) Monocytes # (Manual) PT INR D-Dimer POC ABG pH POC ABG pCO2 POC ABG pO2 Sodium 130 L Potassium Chloride 94.7 L Carbon Dioxide BUN 53 H Creatinine Glucose POC Glucose 197 H Hemoglobin A1c Lactic Acid Calcium 7.8 L Magnesium Total Bilirubin Direct Bilirubin AST ALT Alkaline Phosphatase Total Creatine Kinase CK-MB (CK-2) Troponin T NT-Pro-B Natriuret Pep Total Protein Albumin Triglycerides LDL Cholesterol Direct HDL Cholesterol Urine WBC (Auto) Crossmatch See Detail 02/18/19 02/18/19 02/19/19 16:32 21:26 07:01 WBC RBC Hgb Hct MCHC RDW Plt Count Seg Neuts % (Manual) Lymphocytes % (Manual) Monocytes % (Manual) Nucleated RBC % Seg Neutrophils # Man Lymphocytes # (Manual) Monocytes # (Manual) PT INR D-Dimer POC ABG pH POC ABG pCO2 POC ABG pO2 Sodium 135 L Potassium Chloride Carbon Dioxide BUN 36 H Creatinine Glucose POC Glucose 108 H 107 H Hemoglobin A1c Lactic Acid Calcium 7.9 L Magnesium Total Bilirubin Direct Bilirubin AST ALT Alkaline Phosphatase Total Creatine Kinase CK-MB (CK-2) Troponin T NT-Pro-B Natriuret Pep Total Protein Albumin Triglycerides LDL Cholesterol Direct HDL Cholesterol Urine WBC (Auto) Crossmatch 02/19/19 02/19/19 02/19/19 11:11 13:46 15:19 WBC 12.0 H RBC 2.63 L Hgb 7.5 L Hct 23.3 L MCHC RDW 16.6 H Plt Count Seg Neuts % (Manual) 74.0 H Lymphocytes % (Manual) Monocytes % (Manual) Nucleated RBC % Seg Neutrophils # Man 8.9 H Lymphocytes # (Manual) Monocytes # (Manual) PT INR D-Dimer POC ABG pH POC ABG pCO2 POC ABG pO2 Sodium Potassium Chloride Carbon Dioxide BUN Creatinine Glucose POC Glucose 125 H 181 H Hemoglobin A1c Lactic Acid Calcium Magnesium Total Bilirubin Direct Bilirubin AST ALT Alkaline Phosphatase Total Creatine Kinase CK-MB (CK-2) Troponin T NT-Pro-B Natriuret Pep Total Protein Albumin Triglycerides LDL Cholesterol Direct HDL Cholesterol Urine WBC (Auto) Crossmatch 02/19/19 02/20/19 02/20/19 22:04 02:47 05:25 WBC RBC Hgb Hct MCHC RDW Plt Count Seg Neuts % (Manual) Lymphocytes % (Manual) Monocytes % (Manual) Nucleated RBC % Seg Neutrophils # Man Lymphocytes # (Manual) Monocytes # (Manual) PT INR D-Dimer POC ABG pH POC ABG pCO2 POC ABG pO2 Sodium Potassium Chloride Carbon Dioxide BUN Creatinine Glucose POC Glucose 298 H 136 H 106 H Hemoglobin A1c Lactic Acid Calcium Magnesium Total Bilirubin Direct Bilirubin AST ALT Alkaline Phosphatase Total Creatine Kinase CK-MB (CK-2) Troponin T NT-Pro-B Natriuret Pep Total Protein Albumin Triglycerides LDL Cholesterol Direct HDL Cholesterol Urine WBC (Auto) Crossmatch 02/20/19 02/20/19 02/20/19 06:07 07:55 12:17 WBC RBC Hgb Hct MCHC RDW Plt Count Seg Neuts % (Manual) Lymphocytes % (Manual) Monocytes % (Manual) Nucleated RBC % Seg Neutrophils # Man Lymphocytes # (Manual) Monocytes # (Manual) PT INR D-Dimer POC ABG pH POC ABG pCO2 POC ABG pO2 Sodium Potassium Chloride Carbon Dioxide BUN 23 H Creatinine Glucose 105 H POC Glucose 112 H 195 H Hemoglobin A1c Lactic Acid Calcium 7.4 L Magnesium Total Bilirubin Direct Bilirubin AST ALT Alkaline Phosphatase Total Creatine Kinase CK-MB (CK-2) Troponin T NT-Pro-B Natriuret Pep Total Protein Albumin Triglycerides LDL Cholesterol Direct HDL Cholesterol Urine WBC (Auto) Crossmatch 02/20/19 02/20/19 02/21/19 16:34 22:23 11:35 WBC RBC Hgb Hct MCHC RDW Plt Count Seg Neuts % (Manual) Lymphocytes % (Manual) Monocytes % (Manual) Nucleated RBC % Seg Neutrophils # Man Lymphocytes # (Manual) Monocytes # (Manual) PT INR D-Dimer POC ABG pH POC ABG pCO2 POC ABG pO2 Sodium Potassium Chloride Carbon Dioxide BUN Creatinine Glucose POC Glucose 117 H 153 H 142 H Hemoglobin A1c Lactic Acid Calcium Magnesium Total Bilirubin Direct Bilirubin AST ALT Alkaline Phosphatase Total Creatine Kinase CK-MB (CK-2) Troponin T NT-Pro-B Natriuret Pep Total Protein Albumin Triglycerides LDL Cholesterol Direct HDL Cholesterol Urine WBC (Auto) Crossmatch 02/21/19 02/21/19 02/21/19 11:38 17:12 19:19 WBC RBC Hgb Hct MCHC RDW Plt Count Seg Neuts % (Manual) Lymphocytes % (Manual) Monocytes % (Manual) Nucleated RBC % Seg Neutrophils # Man Lymphocytes # (Manual) Monocytes # (Manual) PT INR D-Dimer POC ABG pH POC ABG pCO2 POC ABG pO2 Sodium 135 L Potassium Chloride Carbon Dioxide 18 L BUN Creatinine Glucose 129 H POC Glucose 61 L 135 H Hemoglobin A1c Lactic Acid Calcium 7.4 L Magnesium Total Bilirubin Direct Bilirubin AST ALT Alkaline Phosphatase Total Creatine Kinase CK-MB (CK-2) Troponin T NT-Pro-B Natriuret Pep Total Protein Albumin Triglycerides LDL Cholesterol Direct HDL Cholesterol Urine WBC (Auto) Crossmatch 02/21/19 02/22/19 02/22/19 21:24 04:18 04:49 WBC RBC Hgb Hct MCHC RDW Plt Count Seg Neuts % (Manual) Lymphocytes % (Manual) Monocytes % (Manual) Nucleated RBC % Seg Neutrophils # Man Lymphocytes # (Manual) Monocytes # (Manual) PT INR D-Dimer POC ABG pH 7.459 H POC ABG pCO2 POC ABG pO2 Sodium Potassium Chloride Carbon Dioxide BUN Creatinine Glucose POC Glucose 146 H 186 H Hemoglobin A1c Lactic Acid Calcium Magnesium Total Bilirubin Direct Bilirubin AST ALT Alkaline Phosphatase Total Creatine Kinase CK-MB (CK-2) Troponin T NT-Pro-B Natriuret Pep Total Protein Albumin Triglycerides LDL Cholesterol Direct HDL Cholesterol Urine WBC (Auto) Crossmatch 02/22/19 02/22/19 02/22/19 07:56 08:26 08:26 WBC RBC Hgb Hct MCHC RDW Plt Count Seg Neuts % (Manual) Lymphocytes % (Manual) Monocytes % (Manual) Nucleated RBC % Seg Neutrophils # Man Lymphocytes # (Manual) Monocytes # (Manual) PT INR D-Dimer 1481.17 H POC ABG pH POC ABG pCO2 POC ABG pO2 Sodium 133 L Potassium 5.3 H Chloride Carbon Dioxide 19 L BUN Creatinine Glucose 216 H POC Glucose 239 H Hemoglobin A1c Lactic Acid Calcium 7.7 L Magnesium Total Bilirubin Direct Bilirubin AST ALT Alkaline Phosphatase Total Creatine Kinase CK-MB (CK-2) Troponin T NT-Pro-B Natriuret Pep Total Protein Albumin Triglycerides LDL Cholesterol Direct HDL Cholesterol Urine WBC (Auto) Crossmatch 02/22/19 02/22/19 02/22/19 11:59 17:06 22:00 WBC RBC Hgb Hct MCHC RDW Plt Count Seg Neuts % (Manual) Lymphocytes % (Manual) Monocytes % (Manual) Nucleated RBC % Seg Neutrophils # Man Lymphocytes # (Manual) Monocytes # (Manual) PT INR D-Dimer POC ABG pH POC ABG pCO2 POC ABG pO2 Sodium Potassium Chloride Carbon Dioxide BUN Creatinine Glucose POC Glucose 238 H 61 L 174 H Hemoglobin A1c Lactic Acid Calcium Magnesium Total Bilirubin Direct Bilirubin AST ALT Alkaline Phosphatase Total Creatine Kinase CK-MB (CK-2) Troponin T NT-Pro-B Natriuret Pep Total Protein Albumin Triglycerides LDL Cholesterol Direct HDL Cholesterol Urine WBC (Auto) Crossmatch 02/23/19 02/23/19 02/23/19 06:12 07:50 21:43 WBC RBC Hgb Hct MCHC RDW Plt Count Seg Neuts % (Manual) Lymphocytes % (Manual) Monocytes % (Manual) Nucleated RBC % Seg Neutrophils # Man Lymphocytes # (Manual) Monocytes # (Manual) PT INR D-Dimer POC ABG pH POC ABG pCO2 POC ABG pO2 Sodium Potassium Chloride Carbon Dioxide 19 L BUN 18 H Creatinine Glucose 52 L POC Glucose 55 L 107 H Hemoglobin A1c Lactic Acid Calcium 8.3 L Magnesium Total Bilirubin Direct Bilirubin AST ALT Alkaline Phosphatase Total Creatine Kinase CK-MB (CK-2) Troponin T NT-Pro-B Natriuret Pep Total Protein Albumin Triglycerides LDL Cholesterol Direct HDL Cholesterol Urine WBC (Auto) Crossmatch 02/24/19 02/24/19 02/24/19 07:29 11:29 16:05 WBC RBC Hgb Hct MCHC RDW Plt Count Seg Neuts % (Manual) Lymphocytes % (Manual) Monocytes % (Manual) Nucleated RBC % Seg Neutrophils # Man Lymphocytes # (Manual) Monocytes # (Manual) PT INR D-Dimer POC ABG pH POC ABG pCO2 POC ABG pO2 Sodium Potassium Chloride Carbon Dioxide BUN Creatinine Glucose POC Glucose 176 H 253 H 179 H Hemoglobin A1c Lactic Acid Calcium Magnesium Total Bilirubin Direct Bilirubin AST ALT Alkaline Phosphatase Total Creatine Kinase CK-MB (CK-2) Troponin T NT-Pro-B Natriuret Pep Total Protein Albumin Triglycerides LDL Cholesterol Direct HDL Cholesterol Urine WBC (Auto) Crossmatch 02/24/19 02/25/19 02/25/19 21:50 07:57 11:54 WBC RBC Hgb Hct MCHC RDW Plt Count Seg Neuts % (Manual) Lymphocytes % (Manual) Monocytes % (Manual) Nucleated RBC % Seg Neutrophils # Man Lymphocytes # (Manual) Monocytes # (Manual) PT INR D-Dimer POC ABG pH POC ABG pCO2 POC ABG pO2 Sodium Potassium Chloride Carbon Dioxide BUN Creatinine Glucose POC Glucose 200 H 249 H 260 H Hemoglobin A1c Lactic Acid Calcium Magnesium Total Bilirubin Direct Bilirubin AST ALT Alkaline Phosphatase Total Creatine Kinase CK-MB (CK-2) Troponin T NT-Pro-B Natriuret Pep Total Protein Albumin Triglycerides LDL Cholesterol Direct HDL Cholesterol Urine WBC (Auto) Crossmatch 02/25/19 02/25/19 02/26/19 16:34 21:52 07:54 WBC RBC Hgb Hct MCHC RDW Plt Count Seg Neuts % (Manual) Lymphocytes % (Manual) Monocytes % (Manual) Nucleated RBC % Seg Neutrophils # Man Lymphocytes # (Manual) Monocytes # (Manual) PT INR D-Dimer POC ABG pH POC ABG pCO2 POC ABG pO2 Sodium Potassium Chloride Carbon Dioxide BUN Creatinine Glucose POC Glucose 198 H 254 H 213 H Hemoglobin A1c Lactic Acid Calcium Magnesium Total Bilirubin Direct Bilirubin AST ALT Alkaline Phosphatase Total Creatine Kinase CK-MB (CK-2) Troponin T NT-Pro-B Natriuret Pep Total Protein Albumin Triglycerides LDL Cholesterol Direct HDL Cholesterol Urine WBC (Auto) Crossmatch 02/26/19 02/26/19 02/26/19 11:49 16:00 22:00 WBC RBC Hgb Hct MCHC RDW Plt Count Seg Neuts % (Manual) Lymphocytes % (Manual) Monocytes % (Manual) Nucleated RBC % Seg Neutrophils # Man Lymphocytes # (Manual) Monocytes # (Manual) PT INR D-Dimer POC ABG pH POC ABG pCO2 POC ABG pO2 Sodium Potassium Chloride Carbon Dioxide BUN Creatinine Glucose POC Glucose 306 H 183 H 162 H Hemoglobin A1c Lactic Acid Calcium Magnesium Total Bilirubin Direct Bilirubin AST ALT Alkaline Phosphatase Total Creatine Kinase CK-MB (CK-2) Troponin T NT-Pro-B Natriuret Pep Total Protein Albumin Triglycerides LDL Cholesterol Direct HDL Cholesterol Urine WBC (Auto) Crossmatch 02/27/19 02/27/19 02/27/19 07:44 11:11 16:57 WBC RBC Hgb Hct MCHC RDW Plt Count Seg Neuts % (Manual) Lymphocytes % (Manual) Monocytes % (Manual) Nucleated RBC % Seg Neutrophils # Man Lymphocytes # (Manual) Monocytes # (Manual) PT INR D-Dimer POC ABG pH POC ABG pCO2 POC ABG pO2 Sodium Potassium Chloride Carbon Dioxide BUN Creatinine Glucose POC Glucose 171 H 217 H 199 H Hemoglobin A1c Lactic Acid Calcium Magnesium Total Bilirubin Direct Bilirubin AST ALT Alkaline Phosphatase Total Creatine Kinase CK-MB (CK-2) Troponin T NT-Pro-B Natriuret Pep Total Protein Albumin Triglycerides LDL Cholesterol Direct HDL Cholesterol Urine WBC (Auto) Crossmatch 02/27/19 02/28/19 02/28/19 21:48 07:36 11:41 WBC RBC Hgb Hct MCHC RDW Plt Count Seg Neuts % (Manual) Lymphocytes % (Manual) Monocytes % (Manual) Nucleated RBC % Seg Neutrophils # Man Lymphocytes # (Manual) Monocytes # (Manual) PT INR D-Dimer POC ABG pH POC ABG pCO2 POC ABG pO2 Sodium Potassium Chloride Carbon Dioxide BUN Creatinine Glucose POC Glucose 161 H 148 H 244 H Hemoglobin A1c Lactic Acid Calcium Magnesium Total Bilirubin Direct Bilirubin AST ALT Alkaline Phosphatase Total Creatine Kinase CK-MB (CK-2) Troponin T NT-Pro-B Natriuret Pep Total Protein Albumin Triglycerides LDL Cholesterol Direct HDL Cholesterol Urine WBC (Auto) Crossmatch 02/28/19 02/28/19 02/28/19 16:32 16:53 17:28 WBC RBC Hgb Hct MCHC RDW Plt Count Seg Neuts % (Manual) Lymphocytes % (Manual) Monocytes % (Manual) Nucleated RBC % Seg Neutrophils # Man Lymphocytes # (Manual) Monocytes # (Manual) PT INR D-Dimer POC ABG pH POC ABG pCO2 POC ABG pO2 53 L Sodium Potassium Chloride Carbon Dioxide BUN Creatinine Glucose POC Glucose 283 H Hemoglobin A1c Lactic Acid Calcium Magnesium Total Bilirubin Direct Bilirubin AST ALT Alkaline Phosphatase Total Creatine Kinase CK-MB (CK-2) Troponin T 0.119 H* NT-Pro-B Natriuret Pep Total Protein Albumin Triglycerides LDL Cholesterol Direct HDL Cholesterol Urine WBC (Auto) Crossmatch 02/28/19 02/28/19 02/28/19 18:33 18:33 18:33 WBC 11.5 H RBC 2.35 L Hgb 6.5 L Hct 21.2 L MCHC RDW 17.6 H Plt Count 631 H Seg Neuts % (Manual) 87.0 H Lymphocytes % (Manual) 9.0 L Monocytes % (Manual) Nucleated RBC % Seg Neutrophils # Man 10.0 H Lymphocytes # (Manual) 1.0 L Monocytes # (Manual) PT 15.5 H INR 1.16 H D-Dimer POC ABG pH POC ABG pCO2 POC ABG pO2 Sodium Potassium Chloride Carbon Dioxide BUN Creatinine Glucose POC Glucose Hemoglobin A1c Lactic Acid Calcium Magnesium Total Bilirubin Direct Bilirubin AST ALT Alkaline Phosphatase Total Creatine Kinase 165 H CK-MB (CK-2) 4.9 H Troponin T 0.123 H* NT-Pro-B Natriuret Pep Total Protein Albumin Triglycerides LDL Cholesterol Direct HDL Cholesterol Urine WBC (Auto) Crossmatch 02/28/19 02/28/19 02/28/19 18:33 19:55 21:39 WBC RBC Hgb Hct MCHC RDW Plt Count Seg Neuts % (Manual) Lymphocytes % (Manual) Monocytes % (Manual) Nucleated RBC % Seg Neutrophils # Man Lymphocytes # (Manual) Monocytes # (Manual) PT INR D-Dimer POC ABG pH 7.319 L POC ABG pCO2 POC ABG pO2 196 H Sodium 136 L Potassium 5.6 H Chloride Carbon Dioxide 14 L BUN 21 H Creatinine 1.4 H Glucose 274 H POC Glucose 277 H Hemoglobin A1c Lactic Acid Calcium 8.3 L Magnesium Total Bilirubin Direct Bilirubin AST ALT Alkaline Phosphatase 165 H Total Creatine Kinase CK-MB (CK-2) Troponin T NT-Pro-B Natriuret Pep Total Protein Albumin 2.7 L Triglycerides LDL Cholesterol Direct HDL Cholesterol Urine WBC (Auto) Crossmatch 02/28/19 02/28/19 02/28/19 22:46 22:47 22:59 WBC RBC Hgb Hct MCHC RDW Plt Count Seg Neuts % (Manual) Lymphocytes % (Manual) Monocytes % (Manual) Nucleated RBC % Seg Neutrophils # Man Lymphocytes # (Manual) Monocytes # (Manual) PT INR D-Dimer POC ABG pH 7.068 L POC ABG pCO2 34.7 L POC ABG pO2 280 H Sodium Potassium Chloride Carbon Dioxide BUN Creatinine Glucose POC Glucose Hemoglobin A1c Lactic Acid 16.50 H* Calcium Magnesium Total Bilirubin Direct Bilirubin AST ALT Alkaline Phosphatase Total Creatine Kinase CK-MB (CK-2) Troponin T 0.595 H* D NT-Pro-B Natriuret Pep Total Protein Albumin Triglycerides LDL Cholesterol Direct HDL Cholesterol Urine WBC (Auto) Crossmatch 02/28/19 03/01/19 03/01/19 22:59 00:47 00:48 WBC RBC Hgb Hct MCHC RDW Plt Count Seg Neuts % (Manual) Lymphocytes % (Manual) Monocytes % (Manual) Nucleated RBC % Seg Neutrophils # Man Lymphocytes # (Manual) Monocytes # (Manual) PT INR D-Dimer POC ABG pH POC ABG pCO2 POC ABG pO2 Sodium Potassium 7.0 H* D 7.3 H* Chloride 97.5 L Carbon Dioxide 10 L 7 L* BUN 22 H 23 H Creatinine 1.7 H 2.0 H Glucose 223 H 222 H POC Glucose Hemoglobin A1c Lactic Acid 19.80 H* Calcium 8.1 L Magnesium Total Bilirubin Direct Bilirubin AST 107 H 223 H ALT Alkaline Phosphatase 208 H 209 H Total Creatine Kinase CK-MB (CK-2) Troponin T NT-Pro-B Natriuret Pep Total Protein 5.9 L Albumin 2.7 L 2.5 L Triglycerides LDL Cholesterol Direct HDL Cholesterol Urine WBC (Auto) Crossmatch 03/01/19 03/01/19 03/01/19 04:07 04:07 04:07 WBC RBC Hgb Hct MCHC RDW Plt Count Seg Neuts % (Manual) Lymphocytes % (Manual) Monocytes % (Manual) Nucleated RBC % Seg Neutrophils # Man Lymphocytes # (Manual) Monocytes # (Manual) PT INR D-Dimer POC ABG pH POC ABG pCO2 POC ABG pO2 Sodium Potassium 6.1 H* Chloride Carbon Dioxide 6 L* BUN 22 H Creatinine 2.0 H Glucose 269 H POC Glucose Hemoglobin A1c Lactic Acid 22.60 H* Calcium 6.9 L Magnesium Total Bilirubin Direct Bilirubin AST 1971 H ALT 686 H Alkaline Phosphatase 193 H Total Creatine Kinase CK-MB (CK-2) Troponin T 2.910 H* D NT-Pro-B Natriuret Pep Total Protein 4.6 L D Albumin 2.0 L Triglycerides LDL Cholesterol Direct HDL Cholesterol Urine WBC (Auto) Crossmatch 03/01/19 03/01/19 03/01/19 04:45 05:03 05:38 WBC RBC 1.78 L Hgb 5.0 L* Hct 17.4 L* MCHC 29 L RDW 18.3 H Plt Count Seg Neuts % (Manual) 78.0 H Lymphocytes % (Manual) Monocytes % (Manual) Nucleated RBC % 2.0 H Seg Neutrophils # Man Lymphocytes # (Manual) Monocytes # (Manual) PT INR D-Dimer POC ABG pH 6.806 L 6.895 L POC ABG pCO2 POC ABG pO2 54 L 213 H Sodium Potassium Chloride Carbon Dioxide BUN Creatinine Glucose POC Glucose Hemoglobin A1c Lactic Acid Calcium Magnesium Total Bilirubin Direct Bilirubin AST ALT Alkaline Phosphatase Total Creatine Kinase CK-MB (CK-2) Troponin T NT-Pro-B Natriuret Pep Total Protein Albumin Triglycerides LDL Cholesterol Direct HDL Cholesterol Urine WBC (Auto) Crossmatch 03/01/19 03/01/19 03/01/19 05:38 06:03 07:29 WBC RBC Hgb Hct MCHC RDW Plt Count Seg Neuts % (Manual) Lymphocytes % (Manual) Monocytes % (Manual) Nucleated RBC % Seg Neutrophils # Man Lymphocytes # (Manual) Monocytes # (Manual) PT INR D-Dimer POC ABG pH POC ABG pCO2 POC ABG pO2 Sodium Potassium Chloride Carbon Dioxide BUN Creatinine Glucose POC Glucose 310 H Hemoglobin A1c Lactic Acid 23.40 H* 24.70 H* Calcium Magnesium Total Bilirubin Direct Bilirubin AST ALT Alkaline Phosphatase Total Creatine Kinase CK-MB (CK-2) Troponin T NT-Pro-B Natriuret Pep Total Protein Albumin Triglycerides LDL Cholesterol Direct HDL Cholesterol Urine WBC (Auto) Crossmatch 03/01/19 03/01/19 03/01/19 07:30 11:38 12:02 WBC RBC Hgb Hct MCHC RDW Plt Count Seg Neuts % (Manual) Lymphocytes % (Manual) Monocytes % (Manual) Nucleated RBC % Seg Neutrophils # Man Lymphocytes # (Manual) Monocytes # (Manual) PT INR D-Dimer POC ABG pH POC ABG pCO2 POC ABG pO2 Sodium Potassium 6.3 H* Chloride Carbon Dioxide BUN Creatinine Glucose POC Glucose 326 H Hemoglobin A1c Lactic Acid Calcium Magnesium Total Bilirubin Direct Bilirubin AST ALT Alkaline Phosphatase Total Creatine Kinase CK-MB (CK-2) Troponin T NT-Pro-B Natriuret Pep Total Protein Albumin Triglycerides LDL Cholesterol Direct HDL Cholesterol Urine WBC (Auto) Crossmatch See Detail 03/01/19 03/01/19 03/01/19 12:30 17:34 18:26 WBC RBC Hgb Hct MCHC RDW Plt Count Seg Neuts % (Manual) Lymphocytes % (Manual) Monocytes % (Manual) Nucleated RBC % Seg Neutrophils # Man Lymphocytes # (Manual) Monocytes # (Manual) PT INR D-Dimer POC ABG pH 6.960 L 7.101 L POC ABG pCO2 32.7 L POC ABG pO2 117 H 109 H Sodium Potassium Chloride Carbon Dioxide BUN Creatinine Glucose POC Glucose 434 H Hemoglobin A1c Lactic Acid Calcium Magnesium Total Bilirubin Direct Bilirubin AST ALT Alkaline Phosphatase Total Creatine Kinase CK-MB (CK-2) Troponin T NT-Pro-B Natriuret Pep Total Protein Albumin Triglycerides LDL Cholesterol Direct HDL Cholesterol Urine WBC (Auto) Crossmatch 03/01/19 03/01/19 03/01/19 20:24 20:24 21:39 WBC RBC Hgb 8.9 L D Hct 28.2 L D MCHC RDW Plt Count Seg Neuts % (Manual) Lymphocytes % (Manual) Monocytes % (Manual) Nucleated RBC % Seg Neutrophils # Man Lymphocytes # (Manual) Monocytes # (Manual) PT INR D-Dimer POC ABG pH POC ABG pCO2 POC ABG pO2 Sodium Potassium 6.2 H* Chloride Carbon Dioxide BUN Creatinine Glucose POC Glucose > 500 H Hemoglobin A1c Lactic Acid Calcium Magnesium Total Bilirubin Direct Bilirubin AST ALT Alkaline Phosphatase Total Creatine Kinase CK-MB (CK-2) Troponin T NT-Pro-B Natriuret Pep Total Protein Albumin Triglycerides LDL Cholesterol Direct HDL Cholesterol Urine WBC (Auto) Crossmatch 03/01/19 03/02/19 03/02/19 22:45 01:42 04:20 WBC 13.0 H RBC 2.47 L Hgb 7.0 L Hct 22.8 L MCHC RDW 18.4 H Plt Count Seg Neuts % (Manual) 95.0 H Lymphocytes % (Manual) 0 L Monocytes % (Manual) Nucleated RBC % 8.0 H Seg Neutrophils # Man 12.4 H Lymphocytes # (Manual) 0.0 L Monocytes # (Manual) PT INR D-Dimer POC ABG pH POC ABG pCO2 POC ABG pO2 Sodium Potassium 5.9 H Chloride 93.0 L Carbon Dioxide 16 L D BUN 28 H Creatinine 2.8 H Glucose 617 H* POC Glucose > 500 H Hemoglobin A1c Lactic Acid Calcium 6.2 L Magnesium Total Bilirubin Direct Bilirubin AST ALT Alkaline Phosphatase Total Creatine Kinase CK-MB (CK-2) Troponin T NT-Pro-B Natriuret Pep Total Protein Albumin Triglycerides LDL Cholesterol Direct HDL Cholesterol Urine WBC (Auto) Crossmatch 03/02/19 03/02/19 03/02/19 04:20 05:04 05:25 WBC RBC Hgb Hct MCHC RDW Plt Count Seg Neuts % (Manual) Lymphocytes % (Manual) Monocytes % (Manual) Nucleated RBC % Seg Neutrophils # Man Lymphocytes # (Manual) Monocytes # (Manual) PT INR D-Dimer POC ABG pH POC ABG pCO2 33.8 L POC ABG pO2 Sodium 132 L Potassium Chloride 85.5 L Carbon Dioxide 21 L BUN 27 H Creatinine 2.8 H Glucose 928 H* POC Glucose > 500 H Hemoglobin A1c Lactic Acid Calcium 6.1 L Magnesium Total Bilirubin 2.00 H Direct Bilirubin AST 7855 H ALT 2210 H Alkaline Phosphatase 238 H Total Creatine Kinase CK-MB (CK-2) Troponin T 13.790 H* D NT-Pro-B Natriuret Pep Total Protein 4.0 L Albumin 1.7 L Triglycerides LDL Cholesterol Direct HDL Cholesterol Urine WBC (Auto) Crossmatch 03/02/19 03/02/19 03/02/19 09:11 10:10 11:19 WBC RBC Hgb Hct MCHC RDW Plt Count Seg Neuts % (Manual) Lymphocytes % (Manual) Monocytes % (Manual) Nucleated RBC % Seg Neutrophils # Man Lymphocytes # (Manual) Monocytes # (Manual) PT INR D-Dimer POC ABG pH POC ABG pCO2 POC ABG pO2 Sodium Potassium Chloride Carbon Dioxide BUN Creatinine Glucose POC Glucose 494 H > 500 H 413 H Hemoglobin A1c Lactic Acid Calcium Magnesium Total Bilirubin Direct Bilirubin AST ALT Alkaline Phosphatase Total Creatine Kinase CK-MB (CK-2) Troponin T NT-Pro-B Natriuret Pep Total Protein Albumin Triglycerides LDL Cholesterol Direct HDL Cholesterol Urine WBC (Auto) Crossmatch 03/02/19 03/02/19 03/02/19 12:05 13:00 14:00 WBC RBC Hgb Hct MCHC RDW Plt Count Seg Neuts % (Manual) Lymphocytes % (Manual) Monocytes % (Manual) Nucleated RBC % Seg Neutrophils # Man Lymphocytes # (Manual) Monocytes # (Manual) PT INR D-Dimer POC ABG pH POC ABG pCO2 POC ABG pO2 Sodium Potassium Chloride Carbon Dioxide BUN Creatinine Glucose POC Glucose 400 H 391 H 415 H Hemoglobin A1c Lactic Acid Calcium Magnesium Total Bilirubin Direct Bilirubin AST ALT Alkaline Phosphatase Total Creatine Kinase CK-MB (CK-2) Troponin T NT-Pro-B Natriuret Pep Total Protein Albumin Triglycerides LDL Cholesterol Direct HDL Cholesterol Urine WBC (Auto) Crossmatch 03/02/19 03/02/19 03/02/19 15:12 16:14 17:13 WBC RBC Hgb 8.0 L Hct 24.7 L MCHC RDW Plt Count Seg Neuts % (Manual) Lymphocytes % (Manual) Monocytes % (Manual) Nucleated RBC % Seg Neutrophils # Man Lymphocytes # (Manual) Monocytes # (Manual) PT INR D-Dimer POC ABG pH POC ABG pCO2 POC ABG pO2 Sodium Potassium Chloride Carbon Dioxide BUN Creatinine Glucose POC Glucose 405 H 395 H Hemoglobin A1c Lactic Acid Calcium Magnesium Total Bilirubin Direct Bilirubin AST ALT Alkaline Phosphatase Total Creatine Kinase CK-MB (CK-2) Troponin T NT-Pro-B Natriuret Pep Total Protein Albumin Triglycerides LDL Cholesterol Direct HDL Cholesterol Urine WBC (Auto) Crossmatch 03/02/19 03/02/19 03/02/19 17:13 17:16 17:30 WBC RBC Hgb Hct MCHC RDW Plt Count Seg Neuts % (Manual) Lymphocytes % (Manual) Monocytes % (Manual) Nucleated RBC % Seg Neutrophils # Man Lymphocytes # (Manual) Monocytes # (Manual) PT INR D-Dimer POC ABG pH POC ABG pCO2 POC ABG pO2 Sodium Potassium Chloride 94.8 L Carbon Dioxide 21 L BUN 34 H Creatinine 3.2 H Glucose 358 H POC Glucose 357 H Hemoglobin A1c Lactic Acid 7.90 H* Calcium 5.9 L* Magnesium Total Bilirubin Direct Bilirubin AST ALT Alkaline Phosphatase Total Creatine Kinase CK-MB (CK-2) Troponin T NT-Pro-B Natriuret Pep Total Protein Albumin Triglycerides LDL Cholesterol Direct HDL Cholesterol Urine WBC (Auto) Crossmatch 03/02/19 03/02/19 03/02/19 18:12 19:31 20:29 WBC RBC Hgb Hct MCHC RDW Plt Count Seg Neuts % (Manual) Lymphocytes % (Manual) Monocytes % (Manual) Nucleated RBC % Seg Neutrophils # Man Lymphocytes # (Manual) Monocytes # (Manual) PT INR D-Dimer POC ABG pH POC ABG pCO2 POC ABG pO2 Sodium Potassium Chloride Carbon Dioxide BUN Creatinine Glucose POC Glucose 270 H 263 H Hemoglobin A1c Lactic Acid Calcium Magnesium Total Bilirubin Direct Bilirubin AST ALT Alkaline Phosphatase Total Creatine Kinase CK-MB (CK-2) Troponin T NT-Pro-B Natriuret Pep Total Protein Albumin Triglycerides LDL Cholesterol Direct HDL Cholesterol Urine WBC (Auto) 17.0 H Crossmatch 03/02/19 03/02/19 03/02/19 20:37 21:08 21:36 WBC RBC Hgb Hct MCHC RDW Plt Count Seg Neuts % (Manual) Lymphocytes % (Manual) Monocytes % (Manual) Nucleated RBC % Seg Neutrophils # Man Lymphocytes # (Manual) Monocytes # (Manual) PT INR D-Dimer POC ABG pH POC ABG pCO2 POC ABG pO2 Sodium Potassium Chloride Carbon Dioxide BUN Creatinine Glucose POC Glucose 270 H 262 H Hemoglobin A1c Lactic Acid 8.60 H* Calcium Magnesium Total Bilirubin Direct Bilirubin AST ALT Alkaline Phosphatase Total Creatine Kinase CK-MB (CK-2) Troponin T NT-Pro-B Natriuret Pep Total Protein Albumin Triglycerides LDL Cholesterol Direct HDL Cholesterol Urine WBC (Auto) Crossmatch 03/02/19 03/02/19 03/03/19 22:07 23:09 00:02 WBC RBC Hgb Hct MCHC RDW Plt Count Seg Neuts % (Manual) Lymphocytes % (Manual) Monocytes % (Manual) Nucleated RBC % Seg Neutrophils # Man Lymphocytes # (Manual) Monocytes # (Manual) PT INR D-Dimer POC ABG pH POC ABG pCO2 POC ABG pO2 Sodium Potassium Chloride Carbon Dioxide BUN Creatinine Glucose POC Glucose 252 H 230 H 159 H Hemoglobin A1c Lactic Acid Calcium Magnesium Total Bilirubin Direct Bilirubin AST ALT Alkaline Phosphatase Total Creatine Kinase CK-MB (CK-2) Troponin T NT-Pro-B Natriuret Pep Total Protein Albumin Triglycerides LDL Cholesterol Direct HDL Cholesterol Urine WBC (Auto) Crossmatch 03/03/19 03/03/19 03/03/19 00:45 00:45 00:45 WBC RBC Hgb 6.3 L Hct 19.8 L* MCHC RDW Plt Count Seg Neuts % (Manual) Lymphocytes % (Manual) Monocytes % (Manual) Nucleated RBC % Seg Neutrophils # Man Lymphocytes # (Manual) Monocytes # (Manual) PT INR D-Dimer POC ABG pH POC ABG pCO2 POC ABG pO2 Sodium Potassium 2.9 L* D Chloride 110.4 H Carbon Dioxide 16 L BUN 27 H Creatinine 2.7 H Glucose 156 H POC Glucose Hemoglobin A1c Lactic Acid 4.90 H* Calcium 4.6 L* D Magnesium Total Bilirubin Direct Bilirubin AST ALT Alkaline Phosphatase Total Creatine Kinase CK-MB (CK-2) Troponin T NT-Pro-B Natriuret Pep Total Protein Albumin Triglycerides LDL Cholesterol Direct HDL Cholesterol Urine WBC (Auto) Crossmatch 03/03/19 03/03/19 03/03/19 01:10 02:04 03:07 WBC RBC Hgb Hct MCHC RDW Plt Count Seg Neuts % (Manual) Lymphocytes % (Manual) Monocytes % (Manual) Nucleated RBC % Seg Neutrophils # Man Lymphocytes # (Manual) Monocytes # (Manual) PT INR D-Dimer POC ABG pH POC ABG pCO2 POC ABG pO2 Sodium Potassium Chloride Carbon Dioxide BUN Creatinine Glucose POC Glucose 189 H 214 H 160 H Hemoglobin A1c Lactic Acid Calcium Magnesium Total Bilirubin Direct Bilirubin AST ALT Alkaline Phosphatase Total Creatine Kinase CK-MB (CK-2) Troponin T NT-Pro-B Natriuret Pep Total Protein Albumin Triglycerides LDL Cholesterol Direct HDL Cholesterol Urine WBC (Auto) Crossmatch 03/03/19 03/03/19 03/03/19 04:10 04:52 05:20 WBC RBC Hgb Hct MCHC RDW Plt Count Seg Neuts % (Manual) Lymphocytes % (Manual) Monocytes % (Manual) Nucleated RBC % Seg Neutrophils # Man Lymphocytes # (Manual) Monocytes # (Manual) PT INR D-Dimer POC ABG pH POC ABG pCO2 34.7 L POC ABG pO2 51 L Sodium Potassium Chloride Carbon Dioxide BUN Creatinine Glucose POC Glucose 142 H 142 H Hemoglobin A1c Lactic Acid Calcium Magnesium Total Bilirubin Direct Bilirubin AST ALT Alkaline Phosphatase Total Creatine Kinase CK-MB (CK-2) Troponin T NT-Pro-B Natriuret Pep Total Protein Albumin Triglycerides LDL Cholesterol Direct HDL Cholesterol Urine WBC (Auto) Crossmatch 03/03/19 03/03/19 03/03/19 06:06 06:50 08:01 WBC RBC Hgb Hct MCHC RDW Plt Count Seg Neuts % (Manual) Lymphocytes % (Manual) Monocytes % (Manual) Nucleated RBC % Seg Neutrophils # Man Lymphocytes # (Manual) Monocytes # (Manual) PT INR D-Dimer POC ABG pH POC ABG pCO2 POC ABG pO2 Sodium Potassium Chloride Carbon Dioxide BUN Creatinine Glucose POC Glucose 127 H 131 H 137 H Hemoglobin A1c Lactic Acid Calcium Magnesium Total Bilirubin Direct Bilirubin AST ALT Alkaline Phosphatase Total Creatine Kinase CK-MB (CK-2) Troponin T NT-Pro-B Natriuret Pep Total Protein Albumin Triglycerides LDL Cholesterol Direct HDL Cholesterol Urine WBC (Auto) Crossmatch 03/03/19 03/03/19 03/03/19 08:30 08:30 08:30 WBC 14.0 H RBC 3.52 L Hgb 9.9 L D Hct 29.8 L D MCHC RDW 16.6 H Plt Count Seg Neuts % (Manual) 92.0 H Lymphocytes % (Manual) 5.0 L Monocytes % (Manual) Nucleated RBC % 13.0 H Seg Neutrophils # Man 0.0 L Lymphocytes # (Manual) 0.0 L Monocytes # (Manual) PT INR D-Dimer POC ABG pH POC ABG pCO2 POC ABG pO2 Sodium Potassium 5.3 H D Chloride Carbon Dioxide BUN 38 H Creatinine 4.0 H Glucose 135 H POC Glucose Hemoglobin A1c Lactic Acid 4.00 H* Calcium 6.8 L D Magnesium 1.60 L Total Bilirubin 1.30 H Direct Bilirubin AST 4012 H ALT 1793 H Alkaline Phosphatase 259 H Total Creatine Kinase CK-MB (CK-2) Troponin T NT-Pro-B Natriuret Pep Total Protein 4.6 L Albumin 2.0 L Triglycerides LDL Cholesterol Direct HDL Cholesterol Urine WBC (Auto) Crossmatch 03/03/19 03/03/19 03/03/19 09:03 10:17 11:15 WBC RBC Hgb Hct MCHC RDW Plt Count Seg Neuts % (Manual) Lymphocytes % (Manual) Monocytes % (Manual) Nucleated RBC % Seg Neutrophils # Man Lymphocytes # (Manual) Monocytes # (Manual) PT INR D-Dimer POC ABG pH POC ABG pCO2 POC ABG pO2 Sodium Potassium Chloride Carbon Dioxide BUN Creatinine Glucose POC Glucose 108 H 113 H 126 H Hemoglobin A1c Lactic Acid Calcium Magnesium Total Bilirubin Direct Bilirubin AST ALT Alkaline Phosphatase Total Creatine Kinase CK-MB (CK-2) Troponin T NT-Pro-B Natriuret Pep Total Protein Albumin Triglycerides LDL Cholesterol Direct HDL Cholesterol Urine WBC (Auto) Crossmatch 03/03/19 03/03/19 03/03/19 13:38 17:02 20:41 WBC RBC Hgb Hct MCHC RDW Plt Count Seg Neuts % (Manual) Lymphocytes % (Manual) Monocytes % (Manual) Nucleated RBC % Seg Neutrophils # Man Lymphocytes # (Manual) Monocytes # (Manual) PT INR D-Dimer > 51376 H POC ABG pH POC ABG pCO2 POC ABG pO2 Sodium Potassium Chloride Carbon Dioxide BUN Creatinine Glucose POC Glucose 195 H 195 H Hemoglobin A1c Lactic Acid Calcium Magnesium Total Bilirubin Direct Bilirubin AST ALT Alkaline Phosphatase Total Creatine Kinase CK-MB (CK-2) Troponin T NT-Pro-B Natriuret Pep Total Protein Albumin Triglycerides LDL Cholesterol Direct HDL Cholesterol Urine WBC (Auto) Crossmatch 03/03/19 03/04/19 03/04/19 23:48 04:32 05:15 WBC RBC Hgb Hct MCHC RDW Plt Count Seg Neuts % (Manual) Lymphocytes % (Manual) Monocytes % (Manual) Nucleated RBC % Seg Neutrophils # Man Lymphocytes # (Manual) Monocytes # (Manual) PT INR D-Dimer POC ABG pH POC ABG pCO2 POC ABG pO2 Sodium Potassium 5.8 H Chloride 96.2 L Carbon Dioxide BUN 46 H Creatinine 4.6 H Glucose 253 H POC Glucose 206 H 248 H Hemoglobin A1c Lactic Acid Calcium 6.5 L Magnesium Total Bilirubin 1.30 H Direct Bilirubin AST 1662 H ALT 1186 H Alkaline Phosphatase 250 H Total Creatine Kinase CK-MB (CK-2) Troponin T NT-Pro-B Natriuret Pep Total Protein 4.3 L Albumin 1.7 L Triglycerides LDL Cholesterol Direct HDL Cholesterol Urine WBC (Auto) Crossmatch 03/04/19 03/04/19 03/04/19 05:15 05:15 07:55 WBC RBC Hgb 9.2 L Hct 28.0 L MCHC RDW Plt Count 123 L Seg Neuts % (Manual) Lymphocytes % (Manual) Monocytes % (Manual) Nucleated RBC % Seg Neutrophils # Man Lymphocytes # (Manual) Monocytes # (Manual) PT INR D-Dimer POC ABG pH POC ABG pCO2 POC ABG pO2 Sodium Potassium Chloride Carbon Dioxide BUN Creatinine Glucose POC Glucose 264 H Hemoglobin A1c Lactic Acid 3.40 H* Calcium Magnesium Total Bilirubin Direct Bilirubin AST ALT Alkaline Phosphatase Total Creatine Kinase CK-MB (CK-2) Troponin T NT-Pro-B Natriuret Pep Total Protein Albumin Triglycerides LDL Cholesterol Direct HDL Cholesterol Urine WBC (Auto) Crossmatch 03/04/19 03/04/19 03/04/19 08:08 11:27 14:14 WBC RBC Hgb Hct MCHC RDW Plt Count Seg Neuts % (Manual) Lymphocytes % (Manual) Monocytes % (Manual) Nucleated RBC % Seg Neutrophils # Man Lymphocytes # (Manual) Monocytes # (Manual) PT INR D-Dimer POC ABG pH POC ABG pCO2 POC ABG pO2 122 H Sodium Potassium Chloride Carbon Dioxide BUN Creatinine Glucose POC Glucose 269 H Hemoglobin A1c Lactic Acid 3.50 H* Calcium Magnesium Total Bilirubin Direct Bilirubin AST ALT Alkaline Phosphatase Total Creatine Kinase CK-MB (CK-2) Troponin T NT-Pro-B Natriuret Pep Total Protein Albumin Triglycerides LDL Cholesterol Direct HDL Cholesterol Urine WBC (Auto) Crossmatch 03/04/19 03/04/19 03/05/19 17:02 20:23 00:14 WBC RBC Hgb Hct MCHC RDW Plt Count Seg Neuts % (Manual) Lymphocytes % (Manual) Monocytes % (Manual) Nucleated RBC % Seg Neutrophils # Man Lymphocytes # (Manual) Monocytes # (Manual) PT INR D-Dimer POC ABG pH POC ABG pCO2 POC ABG pO2 Sodium Potassium Chloride Carbon Dioxide BUN Creatinine Glucose POC Glucose 300 H 349 H 350 H Hemoglobin A1c Lactic Acid Calcium Magnesium Total Bilirubin Direct Bilirubin AST ALT Alkaline Phosphatase Total Creatine Kinase CK-MB (CK-2) Troponin T NT-Pro-B Natriuret Pep Total Protein Albumin Triglycerides LDL Cholesterol Direct HDL Cholesterol Urine WBC (Auto) Crossmatch 03/05/19 04:53 WBC RBC Hgb Hct MCHC RDW Plt Count Seg Neuts % (Manual) Lymphocytes % (Manual) Monocytes % (Manual) Nucleated RBC % Seg Neutrophils # Man Lymphocytes # (Manual) Monocytes # (Manual) PT INR D-Dimer POC ABG pH POC ABG pCO2 POC ABG pO2 Sodium Potassium Chloride Carbon Dioxide BUN Creatinine Glucose POC Glucose 313 H Hemoglobin A1c Lactic Acid Calcium Magnesium Total Bilirubin Direct Bilirubin AST ALT Alkaline Phosphatase Total Creatine Kinase CK-MB (CK-2) Troponin T NT-Pro-B Natriuret Pep Total Protein Albumin Triglycerides LDL Cholesterol Direct HDL Cholesterol Urine WBC (Auto) Crossmatch Allied health notes reviewed: nursing
[2019-03-05] MEDS: MAXIPIME/NS 2 GM/100 ML 2 GM/100 ML BAG IV SCH (10:00)
[2019-03-05] MEDS: SODIUM CHLORIDE FLUSH SYRINGE 10 ML IV SCH ×2 (10:00→22:00)
[2019-03-05] MEDS: LANTUS SUB-Q SCH (10:00)
[2019-03-05] MEDS: ASPIRIN PO SCH (10:00)
[2019-03-05] MEDS: PROTONIX IV SCH ×2 (10:00→21:55)
[2019-03-05 11:04] LABS: Calcium 7.3 mg/dL (8.4-10.2)
--- NOTE | 2019-03-05 11:58 | Progress Note ---
Assessment and Plan Cont supportive measures, vasopressor support. Overall poor prognosis. Will follow peripherally over the weekend. The patient has been seen in conjunction with Dr. Bhakta who agrees with the assessment and plan of care. - Patient Problems (1) Cardiopulmonary arrest with successful resuscitation Current Visit: Yes Status: Acute (2) Acute HFrEF (heart failure with reduced ejection fraction) Current Visit: Yes Status: Acute (3) NSTEMI (non-ST elevated myocardial infarction) Current Visit: Yes Status: Acute (4) Acute respiratory failure Current Visit: Yes Status: Acute (5) GERALDINE (acute kidney injury) Current Visit: Yes Status: Acute (6) Hyperkalemia Current Visit: Yes Status: Acute (7) Sepsis Current Visit: Yes Status: Suspected Qualifiers: Sepsis type: sepsis due to unspecified organism Qualified Code(s): A41.9 - Sepsis, unspecified organism (8) Severe anemia Current Visit: Yes Status: Acute (9) Peripheral vascular disease Current Visit: Yes Status: Chronic (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 Objective Last Vital Signs Temp 99 F 03/05/19 04:00 Pulse 106 H 03/05/19 09:13 Resp 20 03/05/19 09:13 BP 112/51 03/05/19 08:42 Pulse Ox 98 03/05/19 08:42 - Physical Examination General: Other (intubated, nonresponsive) Cardiac: Positive: Reg Rate and Rhythm, S1/S2 Lungs: Positive: Decreased Breath Sounds, Ventilated Respirations Neuro: Positive: Other (intubated, nonresponsive) Skin: Positive: Other (RLE gangrene). Negative: Rash Extremities: Present: +2 Edema (RLE > LLE) - Labs and Meds Comprehensive Metabolic Panel 03/05/19 Range/Units 10:34 Sodium 138 (137-145) mmol/L Potassium 5.6 H (3.6-5.0) mmol/L Chloride 101.8 (98-107) mmol/L Carbon Dioxide 21 L (22-30) mmol/L BUN 51 H (7-17) mg/dL Creatinine 5.6 H (0.7-1.2) mg/dL Glucose 285 H (65-100) mg/dL Calcium 7.3 L (8.4-10.2) mg/dL - Imaging and Cardiology EKG: report reviewed, image reviewed Echo: report reviewed (03/01/2019: EF 25-30%, apical septal and apical lateral wall segments are akinetic. 02/14/2019 showed EF 55-60%, mild LVH, mild with peak gradient 24 and mean 11, mild AR. ) - EKG Sinus rhythms and dysrhythmias: sinus rhythm - Allied health notes Allied health notes reviewed: nursing
--- NOTE | 2019-03-05 13:42 | Progress Note ---
Assessment and Plan 58 year old female with history of diabetes, hypertension, and peripheral vascular disease, suffered a cardiac arrest on 03/01, now with renal, hepatic injury, on insulin drip, and pressor agents. Reviewed the patient's CT in the radiology dept. There is a clear stroke in the left cerebellar hemisphere and one also in rt. hemisphere. The left occipital stroke is not as clear. Nevertheless the pt. is continuing with multiple organ failure. Echo last night reveals EF of 25% and diffuse wall motion abnormalities. The strokes appear to be cardioembolic. All cultures remain neg. thus far. D-dimer markedly elevated, fibrinogen normal Hgb has been stable. 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 A nuclear medicine blood flow study was performed this a.m. and reveals no flow through the left carotid. Minimal flow in right carotid and possible minimal cortical blood flow, but this could be compatible with skin blood flow. Attended family meeting, examined pt., and went back to describe the neurologic exam which shows absence of brain stem function. I answered further questions that the family had. 03/05/19. An EEG was completed, and reveals no cortical activity. It remains flat even with stimulation. Plan -Inform family Continue supportive care. Subjective Date of service: 03/05/19 Principal diagnosis: anemia Interval history: The pt is a 58 female who is intubated and nonresponsive. Pt was sent from rehab facility on 02/13/2019 for confusion and lethargy, recently admitted and had had arterial thrombolysis to RLE for RLE ischemia, and R leg 4 compartment fasciotomy on 01/[address] Jeong. On 03/01/19 she started having shortness for breath and was transfered to ICU and subsequently intubated. Following intubation, she developed asystole and CODE blue called. Pt noted to have severe anemia, lactic acidosis, hyperkalemia, ARF, elevated LFTs, hypothermia, RLE gangrene, CXR with pulm edema. A NSTEMI occurred and CT brain was performed and revealed bilateral cerebellar infarcts as well as one in the left occipital lobe. The pt. has been too unstable to undergo MRI scan. 03/05/2019 - The pt. remains unresponsive on the ventilator. No new events over the last 24 hours. Continues on pressors. EEG done today. Objective - Exam Narrative Exam: General - Unresponsive, on ventilator, no sedation. Pressors in place. 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 When manually opened, they are yoked. Pupils - 5 mm on rt.and non reactive. Left - 5 mm nonreactive. Corneal reflexes - absent bilaterally. Doll's eyes absent Cold water calorics performed both ears - no response Face appears symmetric. No gag response to deep suctioning. Motor - no spontaneous movement. No movement to deep pain. Reflexes - absent Sensory - no response to deep painful stimuli. - Vital Sign Vital Signs - 12hr 03/05/19 03/05/19 03/05/19 01:44 01:45 02:00 Temperature Pulse Rate 99 H 100 H Pulse Rate [ 100 H Anterior Bilateral Throughout] Pulse Rate [ From Monitor] Respiratory 22 20 Rate Respiratory 20 Rate [Anterior Bilateral Throughout] Blood Pressure 100/53 101/53 O2 Sat by Pulse 98 98 Oximetry 03/05/19 03/05/19 03/05/19 02:15 02:30 02:42 Temperature Pulse Rate 100 H 103 H 102 H Pulse Rate [ Anterior Bilateral Throughout] Pulse Rate [ From Monitor] Respiratory 20 20 Rate Respiratory Rate [Anterior Bilateral Throughout] Blood Pressure 100/55 101/45 102/54 O2 Sat by Pulse 98 98 98 Oximetry 03/05/19 03/05/19 03/05/19 02:45 03:00 03:15 Temperature Pulse Rate 103 H 106 H 103 H Pulse Rate [ Anterior Bilateral Throughout] Pulse Rate [ From Monitor] Respiratory 20 20 20 Rate Respiratory Rate [Anterior Bilateral Throughout] Blood Pressure 101/45 101/49 103/48 O2 Sat by Pulse 98 98 97 Oximetry 03/05/19 03/05/19 03/05/19 03:30 03:45 04:00 Temperature 99 F Pulse Rate 104 H 105 H 103 H Pulse Rate [ Anterior Bilateral Throughout] Pulse Rate [ 108 H From Monitor] Respiratory 20 20 20 Rate Respiratory Rate [Anterior Bilateral Throughout] Blood Pressure 106/52 109/54 103/52 O2 Sat by Pulse 98 98 97 Oximetry 03/05/19 03/05/19 03/05/19 04:15 04:30 04:45 Temperature Pulse Rate 105 H 106 H 106 H Pulse Rate [ Anterior Bilateral Throughout] Pulse Rate [ From Monitor] Respiratory 20 20 20 Rate Respiratory Rate [Anterior Bilateral Throughout] Blood Pressure 111/52 111/56 111/58 O2 Sat by Pulse 98 97 97 Oximetry 03/05/19 03/05/19 03/05/19 05:00 05:15 05:30 Temperature Pulse Rate 106 H 108 H 106 H Pulse Rate [ Anterior Bilateral Throughout] Pulse Rate [ From Monitor] Respiratory 20 20 20 Rate Respiratory Rate [Anterior Bilateral Throughout] Blood Pressure 111/58 115/55 110/57 O2 Sat by Pulse 97 98 98 Oximetry 03/05/19 03/05/19 03/05/19 05:45 06:00 06:15 Temperature Pulse Rate 106 H 108 H 109 H Pulse Rate [ Anterior Bilateral Throughout] Pulse Rate [ From Monitor] Respiratory 20 20 20 Rate Respiratory Rate [Anterior Bilateral Throughout] Blood Pressure 112/56 121/62 112/55 O2 Sat by Pulse 97 98 97 Oximetry 03/05/19 03/05/19 03/05/19 06:30 06:45 08:42 Temperature Pulse Rate 110 H 105 H 105 H Pulse Rate [ Anterior Bilateral Throughout] Pulse Rate [ From Monitor] Respiratory 25 H 13 Rate Respiratory Rate [Anterior Bilateral Throughout] Blood Pressure 97/57 102/52 112/51 O2 Sat by Pulse 97 98 98 Oximetry 03/05/19 03/05/19 03/05/19 09:05 09:13 12:00 Temperature 99.3 F Pulse Rate Pulse Rate [ 105 H 106 H Anterior Bilateral Throughout] Pulse Rate [ From Monitor] Respiratory Rate Respiratory 20 20 Rate [Anterior Bilateral Throughout] Blood Pressure O2 Sat by Pulse Oximetry 03/05/19 12:39 Temperature Pulse Rate 101 H Pulse Rate [ Anterior Bilateral Throughout] Pulse Rate [ From Monitor] Respiratory Rate Respiratory Rate [Anterior Bilateral Throughout] Blood Pressure 111/58 O2 Sat by Pulse 97 Oximetry - Laboratory Findings CBC and BMP: 03/04/19 05:15 03/05/19 10:34 Abnormal Lab Findings: Abnormal Labs 02/13/19 02/13/19 02/13/19 13:55 14:08 14:08 WBC 21.3 H RBC 3.00 L Hgb 8.5 L Hct 26.7 L MCHC RDW 16.4 H Plt Count 528 H Seg Neuts % (Manual) 89.0 H Lymphocytes % (Manual) 4.0 L Monocytes % (Manual) Nucleated RBC % 2.0 H Seg Neutrophils # Man 19.0 H Lymphocytes # (Manual) 0.9 L Monocytes # (Manual) PT INR D-Dimer POC ABG pH POC ABG pCO2 POC ABG pO2 Sodium 129 L Potassium 5.4 H Chloride 91.8 L Carbon Dioxide 17 L BUN 52 H Creatinine 2.5 H Glucose 402 H POC Glucose 389 H Hemoglobin A1c Lactic Acid Calcium Magnesium Total Bilirubin 1.50 H Direct Bilirubin 1.1 H AST 61 H ALT Alkaline Phosphatase 271 H Total Creatine Kinase CK-MB (CK-2) Troponin T NT-Pro-B Natriuret Pep Total Protein Albumin 2.3 L Triglycerides LDL Cholesterol Direct HDL Cholesterol Urine WBC (Auto) Crossmatch 02/13/19 02/13/19 02/13/19 14:15 14:15 14:20 WBC RBC Hgb Hct MCHC RDW Plt Count Seg Neuts % (Manual) Lymphocytes % (Manual) Monocytes % (Manual) Nucleated RBC % Seg Neutrophils # Man Lymphocytes # (Manual) Monocytes # (Manual) PT 15.6 H INR 1.17 H D-Dimer POC ABG pH POC ABG pCO2 POC ABG pO2 Sodium Potassium Chloride Carbon Dioxide BUN Creatinine Glucose POC Glucose Hemoglobin A1c Lactic Acid Calcium Magnesium 1.60 L Total Bilirubin Direct Bilirubin AST ALT Alkaline Phosphatase Total Creatine Kinase 1295 H CK-MB (CK-2) Troponin T 0.072 H NT-Pro-B Natriuret Pep 6167 H Total Protein Albumin Triglycerides 329 H LDL Cholesterol Direct 36 L HDL Cholesterol 17 L Urine WBC (Auto) Crossmatch 02/13/19 02/13/19 02/13/19 15:36 18:15 20:59 WBC RBC Hgb Hct MCHC RDW Plt Count Seg Neuts % (Manual) Lymphocytes % (Manual) Monocytes % (Manual) Nucleated RBC % Seg Neutrophils # Man Lymphocytes # (Manual) Monocytes # (Manual) PT INR D-Dimer POC ABG pH POC ABG pCO2 POC ABG pO2 Sodium Potassium Chloride Carbon Dioxide BUN Creatinine Glucose POC Glucose 293 H 390 H Hemoglobin A1c 9.2 H Lactic Acid Calcium Magnesium Total Bilirubin Direct Bilirubin AST ALT Alkaline Phosphatase Total Creatine Kinase CK-MB (CK-2) Troponin T NT-Pro-B Natriuret Pep Total Protein Albumin Triglycerides LDL Cholesterol Direct HDL Cholesterol Urine WBC (Auto) Crossmatch 02/14/19 02/14/19 02/14/19 07:45 08:15 08:15 WBC 23.2 H RBC 2.89 L Hgb 8.3 L Hct 25.3 L MCHC RDW 16.6 H Plt Count 457 H Seg Neuts % (Manual) 91.0 H Lymphocytes % (Manual) 3.0 L Monocytes % (Manual) Nucleated RBC % Seg Neutrophils # Man 21.1 H Lymphocytes # (Manual) 0.7 L Monocytes # (Manual) 1.2 H PT INR D-Dimer POC ABG pH POC ABG pCO2 POC ABG pO2 Sodium 126 L Potassium 5.3 H Chloride 91.5 L Carbon Dioxide 17 L BUN 65 H Creatinine 2.4 H Glucose 418 H POC Glucose Hemoglobin A1c Lactic Acid Calcium 8.2 L Magnesium 2.90 H Total Bilirubin 1.60 H Direct Bilirubin AST 47 H ALT Alkaline Phosphatase 218 H Total Creatine Kinase CK-MB (CK-2) Troponin T NT-Pro-B Natriuret Pep Total Protein 6.2 L Albumin 2.2 L Triglycerides LDL Cholesterol Direct HDL Cholesterol Urine WBC (Auto) Crossmatch 02/14/19 02/14/19 02/14/19 09:07 09:30 18:53 WBC RBC Hgb Hct MCHC RDW Plt Count Seg Neuts % (Manual) Lymphocytes % (Manual) Monocytes % (Manual) Nucleated RBC % Seg Neutrophils # Man Lymphocytes # (Manual) Monocytes # (Manual) PT INR D-Dimer POC ABG pH POC ABG pCO2 POC ABG pO2 Sodium Potassium Chloride Carbon Dioxide BUN Creatinine Glucose POC Glucose 384 H 353 H Hemoglobin A1c Lactic Acid Calcium Magnesium Total Bilirubin Direct Bilirubin AST ALT Alkaline Phosphatase Total Creatine Kinase CK-MB (CK-2) Troponin T NT-Pro-B Natriuret Pep Total Protein Albumin Triglycerides LDL Cholesterol Direct HDL Cholesterol Urine WBC (Auto) > 182.0 H Crossmatch 02/14/19 02/14/19 02/15/19 21:33 21:40 01:45 WBC RBC Hgb Hct MCHC RDW Plt Count Seg Neuts % (Manual) Lymphocytes % (Manual) Monocytes % (Manual) Nucleated RBC % Seg Neutrophils # Man Lymphocytes # (Manual) Monocytes # (Manual) PT INR D-Dimer POC ABG pH POC ABG pCO2 POC ABG pO2 Sodium Potassium Chloride Carbon Dioxide BUN Creatinine Glucose POC Glucose 404 H 360 H 299 H Hemoglobin A1c Lactic Acid Calcium Magnesium Total Bilirubin Direct Bilirubin AST ALT Alkaline Phosphatase Total Creatine Kinase CK-MB (CK-2) Troponin T NT-Pro-B Natriuret Pep Total Protein Albumin Triglycerides LDL Cholesterol Direct HDL Cholesterol Urine WBC (Auto) Crossmatch 02/15/19 02/15/19 02/15/19 05:32 05:38 11:35 WBC RBC Hgb Hct MCHC RDW Plt Count Seg Neuts % (Manual) Lymphocytes % (Manual) Monocytes % (Manual) Nucleated RBC % Seg Neutrophils # Man Lymphocytes # (Manual) Monocytes # (Manual) PT INR D-Dimer POC ABG pH POC ABG pCO2 POC ABG pO2 Sodium Potassium Chloride Carbon Dioxide BUN Creatinine Glucose POC Glucose 402 H 393 H Hemoglobin A1c Lactic Acid Calcium Magnesium 2.80 H Total Bilirubin Direct Bilirubin AST ALT Alkaline Phosphatase Total Creatine Kinase 448 H CK-MB (CK-2) Troponin T NT-Pro-B Natriuret Pep Total Protein Albumin Triglycerides LDL Cholesterol Direct HDL Cholesterol Urine WBC (Auto) Crossmatch 02/15/19 02/15/19 02/15/19 14:15 14:48 17:21 WBC RBC Hgb Hct MCHC RDW Plt Count Seg Neuts % (Manual) Lymphocytes % (Manual) Monocytes % (Manual) Nucleated RBC % Seg Neutrophils # Man Lymphocytes # (Manual) Monocytes # (Manual) PT INR D-Dimer POC ABG pH POC ABG pCO2 POC ABG pO2 Sodium 128 L Potassium Chloride 92.4 L Carbon Dioxide 21 L BUN 86 H Creatinine 1.9 H Glucose 436 H POC Glucose 386 H 347 H Hemoglobin A1c Lactic Acid Calcium 8.1 L Magnesium Total Bilirubin Direct Bilirubin AST ALT Alkaline Phosphatase Total Creatine Kinase CK-MB (CK-2) Troponin T NT-Pro-B Natriuret Pep Total Protein Albumin Triglycerides LDL Cholesterol Direct HDL Cholesterol Urine WBC (Auto) Crossmatch 02/15/19 02/15/19 02/16/19 22:32 23:51 04:08 WBC RBC Hgb Hct MCHC RDW Plt Count Seg Neuts % (Manual) Lymphocytes % (Manual) Monocytes % (Manual) Nucleated RBC % Seg Neutrophils # Man Lymphocytes # (Manual) Monocytes # (Manual) PT INR D-Dimer POC ABG pH POC ABG pCO2 POC ABG pO2 Sodium Potassium Chloride Carbon Dioxide BUN Creatinine Glucose POC Glucose 272 H 244 H 253 H Hemoglobin A1c Lactic Acid Calcium Magnesium Total Bilirubin Direct Bilirubin AST ALT Alkaline Phosphatase Total Creatine Kinase CK-MB (CK-2) Troponin T NT-Pro-B Natriuret Pep Total Protein Albumin Triglycerides LDL Cholesterol Direct HDL Cholesterol Urine WBC (Auto) Crossmatch 02/16/19 02/16/19 02/16/19 05:29 08:52 11:55 WBC RBC Hgb Hct MCHC RDW Plt Count Seg Neuts % (Manual) Lymphocytes % (Manual) Monocytes % (Manual) Nucleated RBC % Seg Neutrophils # Man Lymphocytes # (Manual) Monocytes # (Manual) PT INR D-Dimer POC ABG pH POC ABG pCO2 POC ABG pO2 Sodium Potassium Chloride Carbon Dioxide BUN Creatinine Glucose POC Glucose 262 H 313 H Hemoglobin A1c Lactic Acid Calcium Magnesium Total Bilirubin Direct Bilirubin AST ALT Alkaline Phosphatase Total Creatine Kinase 200 H CK-MB (CK-2) Troponin T NT-Pro-B Natriuret Pep Total Protein Albumin Triglycerides LDL Cholesterol Direct HDL Cholesterol Urine WBC (Auto) Crossmatch 02/16/19 02/16/19 02/17/19 16:20 22:38 00:15 WBC RBC Hgb Hct MCHC RDW Plt Count Seg Neuts % (Manual) Lymphocytes % (Manual) Monocytes % (Manual) Nucleated RBC % Seg Neutrophils # Man Lymphocytes # (Manual) Monocytes # (Manual) PT INR D-Dimer POC ABG pH POC ABG pCO2 POC ABG pO2 Sodium 131 L Potassium Chloride 95.7 L Carbon Dioxide 21 L BUN 70 H Creatinine 1.3 H Glucose 121 H POC Glucose 146 H 125 H Hemoglobin A1c Lactic Acid Calcium 8.0 L Magnesium Total Bilirubin Direct Bilirubin AST ALT Alkaline Phosphatase Total Creatine Kinase CK-MB (CK-2) Troponin T NT-Pro-B Natriuret Pep Total Protein Albumin Triglycerides LDL Cholesterol Direct HDL Cholesterol Urine WBC (Auto) Crossmatch 02/17/19 02/17/19 02/17/19 03:49 07:32 10:41 WBC 13.3 H RBC 2.92 L Hgb 8.2 L Hct 24.6 L MCHC RDW 16.2 H Plt Count Seg Neuts % (Manual) 85.0 H Lymphocytes % (Manual) 8.0 L Monocytes % (Manual) Nucleated RBC % Seg Neutrophils # Man 11.3 H Lymphocytes # (Manual) 1.1 L Monocytes # (Manual) PT INR D-Dimer POC ABG pH POC ABG pCO2 POC ABG pO2 Sodium 129 L Potassium 5.2 H D Chloride 95.9 L Carbon Dioxide 18 L BUN 69 H Creatinine 1.4 H Glucose POC Glucose 146 H Hemoglobin A1c Lactic Acid Calcium 8.1 L Magnesium Total Bilirubin Direct Bilirubin AST ALT Alkaline Phosphatase Total Creatine Kinase CK-MB (CK-2) Troponin T NT-Pro-B Natriuret Pep Total Protein Albumin Triglycerides LDL Cholesterol Direct HDL Cholesterol Urine WBC (Auto) Crossmatch 02/17/19 02/17/19 02/18/19 11:14 16:18 01:14 WBC 14.6 H RBC 2.53 L Hgb 7.1 L Hct 21.7 L MCHC RDW 16.6 H Plt Count Seg Neuts % (Manual) 72.0 H Lymphocytes % (Manual) 8.0 L Monocytes % (Manual) 11.0 H Nucleated RBC % Seg Neutrophils # Man 10.5 H Lymphocytes # (Manual) Monocytes # (Manual) 1.6 H PT INR D-Dimer POC ABG pH POC ABG pCO2 POC ABG pO2 Sodium Potassium Chloride Carbon Dioxide BUN Creatinine Glucose POC Glucose 219 H 176 H Hemoglobin A1c Lactic Acid Calcium Magnesium Total Bilirubin Direct Bilirubin AST ALT Alkaline Phosphatase Total Creatine Kinase CK-MB (CK-2) Troponin T NT-Pro-B Natriuret Pep Total Protein Albumin Triglycerides LDL Cholesterol Direct HDL Cholesterol Urine WBC (Auto) Crossmatch 02/18/19 02/18/19 02/18/19 04:25 11:35 11:57 WBC RBC Hgb Hct MCHC RDW Plt Count Seg Neuts % (Manual) Lymphocytes % (Manual) Monocytes % (Manual) Nucleated RBC % Seg Neutrophils # Man Lymphocytes # (Manual) Monocytes # (Manual) PT INR D-Dimer POC ABG pH POC ABG pCO2 POC ABG pO2 Sodium 130 L Potassium Chloride 94.7 L Carbon Dioxide BUN 53 H Creatinine Glucose POC Glucose 197 H Hemoglobin A1c Lactic Acid Calcium 7.8 L Magnesium Total Bilirubin Direct Bilirubin AST ALT Alkaline Phosphatase Total Creatine Kinase CK-MB (CK-2) Troponin T NT-Pro-B Natriuret Pep Total Protein Albumin Triglycerides LDL Cholesterol Direct HDL Cholesterol Urine WBC (Auto) Crossmatch See Detail 02/18/19 02/18/19 02/19/19 16:32 21:26 07:01 WBC RBC Hgb Hct MCHC RDW Plt Count Seg Neuts % (Manual) Lymphocytes % (Manual) Monocytes % (Manual) Nucleated RBC % Seg Neutrophils # Man Lymphocytes # (Manual) Monocytes # (Manual) PT INR D-Dimer POC ABG pH POC ABG pCO2 POC ABG pO2 Sodium 135 L Potassium Chloride Carbon Dioxide BUN 36 H Creatinine Glucose POC Glucose 108 H 107 H Hemoglobin A1c Lactic Acid Calcium 7.9 L Magnesium Total Bilirubin Direct Bilirubin AST ALT Alkaline Phosphatase Total Creatine Kinase CK-MB (CK-2) Troponin T NT-Pro-B Natriuret Pep Total Protein Albumin Triglycerides LDL Cholesterol Direct HDL Cholesterol Urine WBC (Auto) Crossmatch 02/19/19 02/19/19 02/19/19 11:11 13:46 15:19 WBC 12.0 H RBC 2.63 L Hgb 7.5 L Hct 23.3 L MCHC RDW 16.6 H Plt Count Seg Neuts % (Manual) 74.0 H Lymphocytes % (Manual) Monocytes % (Manual) Nucleated RBC % Seg Neutrophils # Man 8.9 H Lymphocytes # (Manual) Monocytes # (Manual) PT INR D-Dimer POC ABG pH POC ABG pCO2 POC ABG pO2 Sodium Potassium Chloride Carbon Dioxide BUN Creatinine Glucose POC Glucose 125 H 181 H Hemoglobin A1c Lactic Acid Calcium Magnesium Total Bilirubin Direct Bilirubin AST ALT Alkaline Phosphatase Total Creatine Kinase CK-MB (CK-2) Troponin T NT-Pro-B Natriuret Pep Total Protein Albumin Triglycerides LDL Cholesterol Direct HDL Cholesterol Urine WBC (Auto) Crossmatch 02/19/19 02/20/19 02/20/19 22:04 02:47 05:25 WBC RBC Hgb Hct MCHC RDW Plt Count Seg Neuts % (Manual) Lymphocytes % (Manual) Monocytes % (Manual) Nucleated RBC % Seg Neutrophils # Man Lymphocytes # (Manual) Monocytes # (Manual) PT INR D-Dimer POC ABG pH POC ABG pCO2 POC ABG pO2 Sodium Potassium Chloride Carbon Dioxide BUN Creatinine Glucose POC Glucose 298 H 136 H 106 H Hemoglobin A1c Lactic Acid Calcium Magnesium Total Bilirubin Direct Bilirubin AST ALT Alkaline Phosphatase Total Creatine Kinase CK-MB (CK-2) Troponin T NT-Pro-B Natriuret Pep Total Protein Albumin Triglycerides LDL Cholesterol Direct HDL Cholesterol Urine WBC (Auto) Crossmatch 02/20/19 02/20/19 02/20/19 06:07 07:55 12:17 WBC RBC Hgb Hct MCHC RDW Plt Count Seg Neuts % (Manual) Lymphocytes % (Manual) Monocytes % (Manual) Nucleated RBC % Seg Neutrophils # Man Lymphocytes # (Manual) Monocytes # (Manual) PT INR D-Dimer POC ABG pH POC ABG pCO2 POC ABG pO2 Sodium Potassium Chloride Carbon Dioxide BUN 23 H Creatinine Glucose 105 H POC Glucose 112 H 195 H Hemoglobin A1c Lactic Acid Calcium 7.4 L Magnesium Total Bilirubin Direct Bilirubin AST ALT Alkaline Phosphatase Total Creatine Kinase CK-MB (CK-2) Troponin T NT-Pro-B Natriuret Pep Total Protein Albumin Triglycerides LDL Cholesterol Direct HDL Cholesterol Urine WBC (Auto) Crossmatch 02/20/19 02/20/19 02/21/19 16:34 22:23 11:35 WBC RBC Hgb Hct MCHC RDW Plt Count Seg Neuts % (Manual) Lymphocytes % (Manual) Monocytes % (Manual) Nucleated RBC % Seg Neutrophils # Man Lymphocytes # (Manual) Monocytes # (Manual) PT INR D-Dimer POC ABG pH POC ABG pCO2 POC ABG pO2 Sodium Potassium Chloride Carbon Dioxide BUN Creatinine Glucose POC Glucose 117 H 153 H 142 H Hemoglobin A1c Lactic Acid Calcium Magnesium Total Bilirubin Direct Bilirubin AST ALT Alkaline Phosphatase Total Creatine Kinase CK-MB (CK-2) Troponin T NT-Pro-B Natriuret Pep Total Protein Albumin Triglycerides LDL Cholesterol Direct HDL Cholesterol Urine WBC (Auto) Crossmatch 02/21/19 02/21/19 02/21/19 11:38 17:12 19:19 WBC RBC Hgb Hct MCHC RDW Plt Count Seg Neuts % (Manual) Lymphocytes % (Manual) Monocytes % (Manual) Nucleated RBC % Seg Neutrophils # Man Lymphocytes # (Manual) Monocytes # (Manual) PT INR D-Dimer POC ABG pH POC ABG pCO2 POC ABG pO2 Sodium 135 L Potassium Chloride Carbon Dioxide 18 L BUN Creatinine Glucose 129 H POC Glucose 61 L 135 H Hemoglobin A1c Lactic Acid Calcium 7.4 L Magnesium Total Bilirubin Direct Bilirubin AST ALT Alkaline Phosphatase Total Creatine Kinase CK-MB (CK-2) Troponin T NT-Pro-B Natriuret Pep Total Protein Albumin Triglycerides LDL Cholesterol Direct HDL Cholesterol Urine WBC (Auto) Crossmatch 02/21/19 02/22/19 02/22/19 21:24 04:18 04:49 WBC RBC Hgb Hct MCHC RDW Plt Count Seg Neuts % (Manual) Lymphocytes % (Manual) Monocytes % (Manual) Nucleated RBC % Seg Neutrophils # Man Lymphocytes # (Manual) Monocytes # (Manual) PT INR D-Dimer POC ABG pH 7.459 H POC ABG pCO2 POC ABG pO2 Sodium Potassium Chloride Carbon Dioxide BUN Creatinine Glucose POC Glucose 146 H 186 H Hemoglobin A1c Lactic Acid Calcium Magnesium Total Bilirubin Direct Bilirubin AST ALT Alkaline Phosphatase Total Creatine Kinase CK-MB (CK-2) Troponin T NT-Pro-B Natriuret Pep Total Protein Albumin Triglycerides LDL Cholesterol Direct HDL Cholesterol Urine WBC (Auto) Crossmatch 02/22/19 02/22/19 02/22/19 07:56 08:26 08:26 WBC RBC Hgb Hct MCHC RDW Plt Count Seg Neuts % (Manual) Lymphocytes % (Manual) Monocytes % (Manual) Nucleated RBC % Seg Neutrophils # Man Lymphocytes # (Manual) Monocytes # (Manual) PT INR D-Dimer 1481.17 H POC ABG pH POC ABG pCO2 POC ABG pO2 Sodium 133 L Potassium 5.3 H Chloride Carbon Dioxide 19 L BUN Creatinine Glucose 216 H POC Glucose 239 H Hemoglobin A1c Lactic Acid Calcium 7.7 L Magnesium Total Bilirubin Direct Bilirubin AST ALT Alkaline Phosphatase Total Creatine Kinase CK-MB (CK-2) Troponin T NT-Pro-B Natriuret Pep Total Protein Albumin Triglycerides LDL Cholesterol Direct HDL Cholesterol Urine WBC (Auto) Crossmatch 02/22/19 02/22/19 02/22/19 11:59 17:06 22:00 WBC RBC Hgb Hct MCHC RDW Plt Count Seg Neuts % (Manual) Lymphocytes % (Manual) Monocytes % (Manual) Nucleated RBC % Seg Neutrophils # Man Lymphocytes # (Manual) Monocytes # (Manual) PT INR D-Dimer POC ABG pH POC ABG pCO2 POC ABG pO2 Sodium Potassium Chloride Carbon Dioxide BUN Creatinine Glucose POC Glucose 238 H 61 L 174 H Hemoglobin A1c Lactic Acid Calcium Magnesium Total Bilirubin Direct Bilirubin AST ALT Alkaline Phosphatase Total Creatine Kinase CK-MB (CK-2) Troponin T NT-Pro-B Natriuret Pep Total Protein Albumin Triglycerides LDL Cholesterol Direct HDL Cholesterol Urine WBC (Auto) Crossmatch 02/23/19 02/23/19 02/23/19 06:12 07:50 21:43 WBC RBC Hgb Hct MCHC RDW Plt Count Seg Neuts % (Manual) Lymphocytes % (Manual) Monocytes % (Manual) Nucleated RBC % Seg Neutrophils # Man Lymphocytes # (Manual) Monocytes # (Manual) PT INR D-Dimer POC ABG pH POC ABG pCO2 POC ABG pO2 Sodium Potassium Chloride Carbon Dioxide 19 L BUN 18 H Creatinine Glucose 52 L POC Glucose 55 L 107 H Hemoglobin A1c Lactic Acid Calcium 8.3 L Magnesium Total Bilirubin Direct Bilirubin AST ALT Alkaline Phosphatase Total Creatine Kinase CK-MB (CK-2) Troponin T NT-Pro-B Natriuret Pep Total Protein Albumin Triglycerides LDL Cholesterol Direct HDL Cholesterol Urine WBC (Auto) Crossmatch 0302/24/19 02/24/19 07:29 11:29 16:05 WBC RBC Hgb Hct MCHC RDW Plt Count Seg Neuts % (Manual) Lymphocytes % (Manual) Monocytes % (Manual) Nucleated RBC % Seg Neutrophils # Man Lymphocytes # (Manual) Monocytes # (Manual) PT INR D-Dimer POC ABG pH POC ABG pCO2 POC ABG pO2 Sodium Potassium Chloride Carbon Dioxide BUN Creatinine Glucose POC Glucose 176 H 253 H 179 H Hemoglobin A1c Lactic Acid Calcium Magnesium Total Bilirubin Direct Bilirubin AST ALT Alkaline Phosphatase Total Creatine Kinase CK-MB (CK-2) Troponin T NT-Pro-B Natriuret Pep Total Protein Albumin Triglycerides LDL Cholesterol Direct HDL Cholesterol Urine WBC (Auto) Crossmatch 02/24/19 02/25/19 02/25/19 21:50 07:57 11:54 WBC RBC Hgb Hct MCHC RDW Plt Count Seg Neuts % (Manual) Lymphocytes % (Manual) Monocytes % (Manual) Nucleated RBC % Seg Neutrophils # Man Lymphocytes # (Manual) Monocytes # (Manual) PT INR D-Dimer POC ABG pH POC ABG pCO2 POC ABG pO2 Sodium Potassium Chloride Carbon Dioxide BUN Creatinine Glucose POC Glucose 200 H 249 H 260 H Hemoglobin A1c Lactic Acid Calcium Magnesium Total Bilirubin Direct Bilirubin AST ALT Alkaline Phosphatase Total Creatine Kinase CK-MB (CK-2) Troponin T NT-Pro-B Natriuret Pep Total Protein Albumin Triglycerides LDL Cholesterol Direct HDL Cholesterol Urine WBC (Auto) Crossmatch 02/25/19 02/25/19 02/26/19 16:34 21:52 07:54 WBC RBC Hgb Hct MCHC RDW Plt Count Seg Neuts % (Manual) Lymphocytes % (Manual) Monocytes % (Manual) Nucleated RBC % Seg Neutrophils # Man Lymphocytes # (Manual) Monocytes # (Manual) PT INR D-Dimer POC ABG pH POC ABG pCO2 POC ABG pO2 Sodium Potassium Chloride Carbon Dioxide BUN Creatinine Glucose POC Glucose 198 H 254 H 213 H Hemoglobin A1c Lactic Acid Calcium Magnesium Total Bilirubin Direct Bilirubin AST ALT Alkaline Phosphatase Total Creatine Kinase CK-MB (CK-2) Troponin T NT-Pro-B Natriuret Pep Total Protein Albumin Triglycerides LDL Cholesterol Direct HDL Cholesterol Urine WBC (Auto) Crossmatch 02/26/19 02/26/19 02/26/19 11:49 16:00 22:00 WBC RBC Hgb Hct MCHC RDW Plt Count Seg Neuts % (Manual) Lymphocytes % (Manual) Monocytes % (Manual) Nucleated RBC % Seg Neutrophils # Man Lymphocytes # (Manual) Monocytes # (Manual) PT INR D-Dimer POC ABG pH POC ABG pCO2 POC ABG pO2 Sodium Potassium Chloride Carbon Dioxide BUN Creatinine Glucose POC Glucose 306 H 183 H 162 H Hemoglobin A1c Lactic Acid Calcium Magnesium Total Bilirubin Direct Bilirubin AST ALT Alkaline Phosphatase Total Creatine Kinase CK-MB (CK-2) Troponin T NT-Pro-B Natriuret Pep Total Protein Albumin Triglycerides LDL Cholesterol Direct HDL Cholesterol Urine WBC (Auto) Crossmatch 02/27/19 02/27/19 02/27/19 07:44 11:11 16:57 WBC RBC Hgb Hct MCHC RDW Plt Count Seg Neuts % (Manual) Lymphocytes % (Manual) Monocytes % (Manual) Nucleated RBC % Seg Neutrophils # Man Lymphocytes # (Manual) Monocytes # (Manual) PT INR D-Dimer POC ABG pH POC ABG pCO2 POC ABG pO2 Sodium Potassium Chloride Carbon Dioxide BUN Creatinine Glucose POC Glucose 171 H 217 H 199 H Hemoglobin A1c Lactic Acid Calcium Magnesium Total Bilirubin Direct Bilirubin AST ALT Alkaline Phosphatase Total Creatine Kinase CK-MB (CK-2) Troponin T NT-Pro-B Natriuret Pep Total Protein Albumin Triglycerides LDL Cholesterol Direct HDL Cholesterol Urine WBC (Auto) Crossmatch 02/27/19 02/28/19 02/28/19 21:48 07:36 11:41 WBC RBC Hgb Hct MCHC RDW Plt Count Seg Neuts % (Manual) Lymphocytes % (Manual) Monocytes % (Manual) Nucleated RBC % Seg Neutrophils # Man Lymphocytes # (Manual) Monocytes # (Manual) PT INR D-Dimer POC ABG pH POC ABG pCO2 POC ABG pO2 Sodium Potassium Chloride Carbon Dioxide BUN Creatinine Glucose POC Glucose 161 H 148 H 244 H Hemoglobin A1c Lactic Acid Calcium Magnesium Total Bilirubin Direct Bilirubin AST ALT Alkaline Phosphatase Total Creatine Kinase CK-MB (CK-2) Troponin T NT-Pro-B Natriuret Pep Total Protein Albumin Triglycerides LDL Cholesterol Direct HDL Cholesterol Urine WBC (Auto) Crossmatch 02/28/19 02/28/19 02/28/19 16:32 16:53 17:28 WBC RBC Hgb Hct MCHC RDW Plt Count Seg Neuts % (Manual) Lymphocytes % (Manual) Monocytes % (Manual) Nucleated RBC % Seg Neutrophils # Man Lymphocytes # (Manual) Monocytes # (Manual) PT INR D-Dimer POC ABG pH POC ABG pCO2 POC ABG pO2 53 L Sodium Potassium Chloride Carbon Dioxide BUN Creatinine Glucose POC Glucose 283 H Hemoglobin A1c Lactic Acid Calcium Magnesium Total Bilirubin Direct Bilirubin AST ALT Alkaline Phosphatase Total Creatine Kinase CK-MB (CK-2) Troponin T 0.119 H* NT-Pro-B Natriuret Pep Total Protein Albumin Triglycerides LDL Cholesterol Direct HDL Cholesterol Urine WBC (Auto) Crossmatch 02/28/19 02/28/19 02/28/19 18:33 18:33 18:33 WBC 11.5 H RBC 2.35 L Hgb 6.5 L Hct 21.2 L MCHC RDW 17.6 H Plt Count 631 H Seg Neuts % (Manual) 87.0 H Lymphocytes % (Manual) 9.0 L Monocytes % (Manual) Nucleated RBC % Seg Neutrophils # Man 10.0 H Lymphocytes # (Manual) 1.0 L Monocytes # (Manual) PT 15.5 H INR 1.16 H D-Dimer POC ABG pH POC ABG pCO2 POC ABG pO2 Sodium Potassium Chloride Carbon Dioxide BUN Creatinine Glucose POC Glucose Hemoglobin A1c Lactic Acid Calcium Magnesium Total Bilirubin Direct Bilirubin AST ALT Alkaline Phosphatase Total Creatine Kinase 165 H CK-MB (CK-2) 4.9 H Troponin T 0.123 H* NT-Pro-B Natriuret Pep Total Protein Albumin Triglycerides LDL Cholesterol Direct HDL Cholesterol Urine WBC (Auto) Crossmatch 02/28/19 02/28/19 02/28/19 18:33 19:55 21:39 WBC RBC Hgb Hct MCHC RDW Plt Count Seg Neuts % (Manual) Lymphocytes % (Manual) Monocytes % (Manual) Nucleated RBC % Seg Neutrophils # Man Lymphocytes # (Manual) Monocytes # (Manual) PT INR D-Dimer POC ABG pH 7.319 L POC ABG pCO2 POC ABG pO2 196 H Sodium 136 L Potassium 5.6 H Chloride Carbon Dioxide 14 L BUN 21 H Creatinine 1.4 H Glucose 274 H POC Glucose 277 H Hemoglobin A1c Lactic Acid Calcium 8.3 L Magnesium Total Bilirubin Direct Bilirubin AST ALT Alkaline Phosphatase 165 H Total Creatine Kinase CK-MB (CK-2) Troponin T NT-Pro-B Natriuret Pep Total Protein Albumin 2.7 L Triglycerides LDL Cholesterol Direct HDL Cholesterol Urine WBC (Auto) Crossmatch 02/28/19 02/28/19 02/28/19 22:46 22:47 22:59 WBC RBC Hgb Hct MCHC RDW Plt Count Seg Neuts % (Manual) Lymphocytes % (Manual) Monocytes % (Manual) Nucleated RBC % Seg Neutrophils # Man Lymphocytes # (Manual) Monocytes # (Manual) PT INR D-Dimer POC ABG pH 7.068 L POC ABG pCO2 34.7 L POC ABG pO2 280 H Sodium Potassium Chloride Carbon Dioxide BUN Creatinine Glucose POC Glucose Hemoglobin A1c Lactic Acid 16.50 H* Calcium Magnesium Total Bilirubin Direct Bilirubin AST ALT Alkaline Phosphatase Total Creatine Kinase CK-MB (CK-2) Troponin T 0.595 H* D NT-Pro-B Natriuret Pep Total Protein Albumin Triglycerides LDL Cholesterol Direct HDL Cholesterol Urine WBC (Auto) Crossmatch 02/28/19 03/01/19 03/01/19 22:59 00:47 00:48 WBC RBC Hgb Hct MCHC RDW Plt Count Seg Neuts % (Manual) Lymphocytes % (Manual) Monocytes % (Manual) Nucleated RBC % Seg Neutrophils # Man Lymphocytes # (Manual) Monocytes # (Manual) PT INR D-Dimer POC ABG pH POC ABG pCO2 POC ABG pO2 Sodium Potassium 7.0 H* D 7.3 H* Chloride 97.5 L Carbon Dioxide 10 L 7 L* BUN 22 H 23 H Creatinine 1.7 H 2.0 H Glucose 223 H 222 H POC Glucose Hemoglobin A1c Lactic Acid 19.80 H* Calcium 8.1 L Magnesium Total Bilirubin Direct Bilirubin AST 107 H 223 H ALT Alkaline Phosphatase 208 H 209 H Total Creatine Kinase CK-MB (CK-2) Troponin T NT-Pro-B Natriuret Pep Total Protein 5.9 L Albumin 2.7 L 2.5 L Triglycerides LDL Cholesterol Direct HDL Cholesterol Urine WBC (Auto) Crossmatch 03/01/19 03/01/19 03/01/19 04:07 04:07 04:07 WBC RBC Hgb Hct MCHC RDW Plt Count Seg Neuts % (Manual) Lymphocytes % (Manual) Monocytes % (Manual) Nucleated RBC % Seg Neutrophils # Man Lymphocytes # (Manual) Monocytes # (Manual) PT INR D-Dimer POC ABG pH POC ABG pCO2 POC ABG pO2 Sodium Potassium 6.1 H* Chloride Carbon Dioxide 6 L* BUN 22 H Creatinine 2.0 H Glucose 269 H POC Glucose Hemoglobin A1c Lactic Acid 22.60 H* Calcium 6.9 L Magnesium Total Bilirubin Direct Bilirubin AST 1971 H ALT 686 H Alkaline Phosphatase 193 H Total Creatine Kinase CK-MB (CK-2) Troponin T 2.910 H* D NT-Pro-B Natriuret Pep Total Protein 4.6 L D Albumin 2.0 L Triglycerides LDL Cholesterol Direct HDL Cholesterol Urine WBC (Auto) Crossmatch 03/01/19 03/01/19 03/01/19 04:45 05:03 05:38 WBC RBC 1.78 L Hgb 5.0 L* Hct 17.4 L* MCHC 29 L RDW 18.3 H Plt Count Seg Neuts % (Manual) 78.0 H Lymphocytes % (Manual) Monocytes % (Manual) Nucleated RBC % 2.0 H Seg Neutrophils # Man Lymphocytes # (Manual) Monocytes # (Manual) PT INR D-Dimer POC ABG pH 6.806 L 6.895 L POC ABG pCO2 POC ABG pO2 54 L 213 H Sodium Potassium Chloride Carbon Dioxide BUN Creatinine Glucose POC Glucose Hemoglobin A1c Lactic Acid Calcium Magnesium Total Bilirubin Direct Bilirubin AST ALT Alkaline Phosphatase Total Creatine Kinase CK-MB (CK-2) Troponin T NT-Pro-B Natriuret Pep Total Protein Albumin Triglycerides LDL Cholesterol Direct HDL Cholesterol Urine WBC (Auto) Crossmatch 03/01/19 03/01/19 03/01/19 05:38 06:03 07:29 WBC RBC Hgb Hct MCHC RDW Plt Count Seg Neuts % (Manual) Lymphocytes % (Manual) Monocytes % (Manual) Nucleated RBC % Seg Neutrophils # Man Lymphocytes # (Manual) Monocytes # (Manual) PT INR D-Dimer POC ABG pH POC ABG pCO2 POC ABG pO2 Sodium Potassium Chloride Carbon Dioxide BUN Creatinine Glucose POC Glucose 310 H Hemoglobin A1c Lactic Acid 23.40 H* 24.70 H* Calcium Magnesium Total Bilirubin Direct Bilirubin AST ALT Alkaline Phosphatase Total Creatine Kinase CK-MB (CK-2) Troponin T NT-Pro-B Natriuret Pep Total Protein Albumin Triglycerides LDL Cholesterol Direct HDL Cholesterol Urine WBC (Auto) Crossmatch 03/01/19 03/01/19 03/01/19 07:30 11:38 12:02 WBC RBC Hgb Hct MCHC RDW Plt Count Seg Neuts % (Manual) Lymphocytes % (Manual) Monocytes % (Manual) Nucleated RBC % Seg Neutrophils # Man Lymphocytes # (Manual) Monocytes # (Manual) PT INR D-Dimer POC ABG pH POC ABG pCO2 POC ABG pO2 Sodium Potassium 6.3 H* Chloride Carbon Dioxide BUN Creatinine Glucose POC Glucose 326 H Hemoglobin A1c Lactic Acid Calcium Magnesium Total Bilirubin Direct Bilirubin AST ALT Alkaline Phosphatase Total Creatine Kinase CK-MB (CK-2) Troponin T NT-Pro-B Natriuret Pep Total Protein Albumin Triglycerides LDL Cholesterol Direct HDL Cholesterol Urine WBC (Auto) Crossmatch See Detail 03/01/19 03/01/19 03/01/19 12:30 17:34 18:26 WBC RBC Hgb Hct MCHC RDW Plt Count Seg Neuts % (Manual) Lymphocytes % (Manual) Monocytes % (Manual) Nucleated RBC % Seg Neutrophils # Man Lymphocytes # (Manual) Monocytes # (Manual) PT INR D-Dimer POC ABG pH 6.960 L 7.101 L POC ABG pCO2 32.7 L POC ABG pO2 117 H 109 H Sodium Potassium Chloride Carbon Dioxide BUN Creatinine Glucose POC Glucose 434 H Hemoglobin A1c Lactic Acid Calcium Magnesium Total Bilirubin Direct Bilirubin AST ALT Alkaline Phosphatase Total Creatine Kinase CK-MB (CK-2) Troponin T NT-Pro-B Natriuret Pep Total Protein Albumin Triglycerides LDL Cholesterol Direct HDL Cholesterol Urine WBC (Auto) Crossmatch 03/01/19 03/01/19 03/01/19 20:24 20:24 21:39 WBC RBC Hgb 8.9 L D Hct 28.2 L D MCHC RDW Plt Count Seg Neuts % (Manual) Lymphocytes % (Manual) Monocytes % (Manual) Nucleated RBC % Seg Neutrophils # Man Lymphocytes # (Manual) Monocytes # (Manual) PT INR D-Dimer POC ABG pH POC ABG pCO2 POC ABG pO2 Sodium Potassium 6.2 H* Chloride Carbon Dioxide BUN Creatinine Glucose POC Glucose > 500 H Hemoglobin A1c Lactic Acid Calcium Magnesium Total Bilirubin Direct Bilirubin AST ALT Alkaline Phosphatase Total Creatine Kinase CK-MB (CK-2) Troponin T NT-Pro-B Natriuret Pep Total Protein Albumin Triglycerides LDL Cholesterol Direct HDL Cholesterol Urine WBC (Auto) Crossmatch 03/01/19 03/02/19 03/02/19 22:45 01:42 04:20 WBC 13.0 H RBC 2.47 L Hgb 7.0 L Hct 22.8 L MCHC RDW 18.4 H Plt Count Seg Neuts % (Manual) 95.0 H Lymphocytes % (Manual) 0 L Monocytes % (Manual) Nucleated RBC % 8.0 H Seg Neutrophils # Man 12.4 H Lymphocytes # (Manual) 0.0 L Monocytes # (Manual) PT INR D-Dimer POC ABG pH POC ABG pCO2 POC ABG pO2 Sodium Potassium 5.9 H Chloride 93.0 L Carbon Dioxide 16 L D BUN 28 H Creatinine 2.8 H Glucose 617 H* POC Glucose > 500 H Hemoglobin A1c Lactic Acid Calcium 6.2 L Magnesium Total Bilirubin Direct Bilirubin AST ALT Alkaline Phosphatase Total Creatine Kinase CK-MB (CK-2) Troponin T NT-Pro-B Natriuret Pep Total Protein Albumin Triglycerides LDL Cholesterol Direct HDL Cholesterol Urine WBC (Auto) Crossmatch 03/02/19 03/02/19 03/02/19 04:20 05:04 05:25 WBC RBC Hgb Hct MCHC RDW Plt Count Seg Neuts % (Manual) Lymphocytes % (Manual) Monocytes % (Manual) Nucleated RBC % Seg Neutrophils # Man Lymphocytes # (Manual) Monocytes # (Manual) PT INR D-Dimer POC ABG pH POC ABG pCO2 33.8 L POC ABG pO2 Sodium 132 L Potassium Chloride 85.5 L Carbon Dioxide 21 L BUN 27 H Creatinine 2.8 H Glucose 928 H* POC Glucose > 500 H Hemoglobin A1c Lactic Acid Calcium 6.1 L Magnesium Total Bilirubin 2.00 H Direct Bilirubin AST 7855 H ALT 2210 H Alkaline Phosphatase 238 H Total Creatine Kinase CK-MB (CK-2) Troponin T 13.790 H* D NT-Pro-B Natriuret Pep Total Protein 4.0 L Albumin 1.7 L Triglycerides LDL Cholesterol Direct HDL Cholesterol Urine WBC (Auto) Crossmatch 03/02/19 03/02/19 03/02/19 09:11 10:10 11:19 WBC RBC Hgb Hct MCHC RDW Plt Count Seg Neuts % (Manual) Lymphocytes % (Manual) Monocytes % (Manual) Nucleated RBC % Seg Neutrophils # Man Lymphocytes # (Manual) Monocytes # (Manual) PT INR D-Dimer POC ABG pH POC ABG pCO2 POC ABG pO2 Sodium Potassium Chloride Carbon Dioxide BUN Creatinine Glucose POC Glucose 494 H > 500 H 413 H Hemoglobin A1c Lactic Acid Calcium Magnesium Total Bilirubin Direct Bilirubin AST ALT Alkaline Phosphatase Total Creatine Kinase CK-MB (CK-2) Troponin T NT-Pro-B Natriuret Pep Total Protein Albumin Triglycerides LDL Cholesterol Direct HDL Cholesterol Urine WBC (Auto) Crossmatch 03/02/19 03/02/19 03/02/19 12:05 13:00 14:00 WBC RBC Hgb Hct MCHC RDW Plt Count Seg Neuts % (Manual) Lymphocytes % (Manual) Monocytes % (Manual) Nucleated RBC % Seg Neutrophils # Man Lymphocytes # (Manual) Monocytes # (Manual) PT INR D-Dimer POC ABG pH POC ABG pCO2 POC ABG pO2 Sodium Potassium Chloride Carbon Dioxide BUN Creatinine Glucose POC Glucose 400 H 391 H 415 H Hemoglobin A1c Lactic Acid Calcium Magnesium Total Bilirubin Direct Bilirubin AST ALT Alkaline Phosphatase Total Creatine Kinase CK-MB (CK-2) Troponin T NT-Pro-B Natriuret Pep Total Protein Albumin Triglycerides LDL Cholesterol Direct HDL Cholesterol Urine WBC (Auto) Crossmatch 03/02/19 03/02/19 03/02/19 15:12 16:14 17:13 WBC RBC Hgb 8.0 L Hct 24.7 L MCHC RDW Plt Count Seg Neuts % (Manual) Lymphocytes % (Manual) Monocytes % (Manual) Nucleated RBC % Seg Neutrophils # Man Lymphocytes # (Manual) Monocytes # (Manual) PT INR D-Dimer POC ABG pH POC ABG pCO2 POC ABG pO2 Sodium Potassium Chloride Carbon Dioxide BUN Creatinine Glucose POC Glucose 405 H 395 H Hemoglobin A1c Lactic Acid Calcium Magnesium Total Bilirubin Direct Bilirubin AST ALT Alkaline Phosphatase Total Creatine Kinase CK-MB (CK-2) Troponin T NT-Pro-B Natriuret Pep Total Protein Albumin Triglycerides LDL Cholesterol Direct HDL Cholesterol Urine WBC (Auto) Crossmatch 03/02/19 03/02/19 03/02/19 17:13 17:16 17:30 WBC RBC Hgb Hct MCHC RDW Plt Count Seg Neuts % (Manual) Lymphocytes % (Manual) Monocytes % (Manual) Nucleated RBC % Seg Neutrophils # Man Lymphocytes # (Manual) Monocytes # (Manual) PT INR D-Dimer POC ABG pH POC ABG pCO2 POC ABG pO2 Sodium Potassium Chloride 94.8 L Carbon Dioxide 21 L BUN 34 H Creatinine 3.2 H Glucose 358 H POC Glucose 357 H Hemoglobin A1c Lactic Acid 7.90 H* Calcium 5.9 L* Magnesium Total Bilirubin Direct Bilirubin AST ALT Alkaline Phosphatase Total Creatine Kinase CK-MB (CK-2) Troponin T NT-Pro-B Natriuret Pep Total Protein Albumin Triglycerides LDL Cholesterol Direct HDL Cholesterol Urine WBC (Auto) Crossmatch 03/02/19 03/02/19 03/02/19 18:12 19:31 20:29 WBC RBC Hgb Hct MCHC RDW Plt Count Seg Neuts % (Manual) Lymphocytes % (Manual) Monocytes % (Manual) Nucleated RBC % Seg Neutrophils # Man Lymphocytes # (Manual) Monocytes # (Manual) PT INR D-Dimer POC ABG pH POC ABG pCO2 POC ABG pO2 Sodium Potassium Chloride Carbon Dioxide BUN Creatinine Glucose POC Glucose 270 H 263 H Hemoglobin A1c Lactic Acid Calcium Magnesium Total Bilirubin Direct Bilirubin AST ALT Alkaline Phosphatase Total Creatine Kinase CK-MB (CK-2) Troponin T NT-Pro-B Natriuret Pep Total Protein Albumin Triglycerides LDL Cholesterol Direct HDL Cholesterol Urine WBC (Auto) 17.0 H Crossmatch 03/02/19 03/02/19 03/02/19 20:37 21:08 21:36 WBC RBC Hgb Hct MCHC RDW Plt Count Seg Neuts % (Manual) Lymphocytes % (Manual) Monocytes % (Manual) Nucleated RBC % Seg Neutrophils # Man Lymphocytes # (Manual) Monocytes # (Manual) PT INR D-Dimer POC ABG pH POC ABG pCO2 POC ABG pO2 Sodium Potassium Chloride Carbon Dioxide BUN Creatinine Glucose POC Glucose 270 H 262 H Hemoglobin A1c Lactic Acid 8.60 H* Calcium Magnesium Total Bilirubin Direct Bilirubin AST ALT Alkaline Phosphatase Total Creatine Kinase CK-MB (CK-2) Troponin T NT-Pro-B Natriuret Pep Total Protein Albumin Triglycerides LDL Cholesterol Direct HDL Cholesterol Urine WBC (Auto) Crossmatch 03/02/19 03/02/19 03/03/19 22:07 23:09 00:02 WBC RBC Hgb Hct MCHC RDW Plt Count Seg Neuts % (Manual) Lymphocytes % (Manual) Monocytes % (Manual) Nucleated RBC % Seg Neutrophils # Man Lymphocytes # (Manual) Monocytes # (Manual) PT INR D-Dimer POC ABG pH POC ABG pCO2 POC ABG pO2 Sodium Potassium Chloride Carbon Dioxide BUN Creatinine Glucose POC Glucose 252 H 230 H 159 H Hemoglobin A1c Lactic Acid Calcium Magnesium Total Bilirubin Direct Bilirubin AST ALT Alkaline Phosphatase Total Creatine Kinase CK-MB (CK-2) Troponin T NT-Pro-B Natriuret Pep Total Protein Albumin Triglycerides LDL Cholesterol Direct HDL Cholesterol Urine WBC (Auto) Crossmatch 03/03/19 03/03/19 03/03/19 00:45 00:45 00:45 WBC RBC Hgb 6.3 L Hct 19.8 L* MCHC RDW Plt Count Seg Neuts % (Manual) Lymphocytes % (Manual) Monocytes % (Manual) Nucleated RBC % Seg Neutrophils # Man Lymphocytes # (Manual) Monocytes # (Manual) PT INR D-Dimer POC ABG pH POC ABG pCO2 POC ABG pO2 Sodium Potassium 2.9 L* D Chloride 110.4 H Carbon Dioxide 16 L BUN 27 H Creatinine 2.7 H Glucose 156 H POC Glucose Hemoglobin A1c Lactic Acid 4.90 H* Calcium 4.6 L* D Magnesium Total Bilirubin Direct Bilirubin AST ALT Alkaline Phosphatase Total Creatine Kinase CK-MB (CK-2) Troponin T NT-Pro-B Natriuret Pep Total Protein Albumin Triglycerides LDL Cholesterol Direct HDL Cholesterol Urine WBC (Auto) Crossmatch 03/03/19 03/03/19 03/03/19 01:10 02:04 03:07 WBC RBC Hgb Hct MCHC RDW Plt Count Seg Neuts % (Manual) Lymphocytes % (Manual) Monocytes % (Manual) Nucleated RBC % Seg Neutrophils # Man Lymphocytes # (Manual) Monocytes # (Manual) PT INR D-Dimer POC ABG pH POC ABG pCO2 POC ABG pO2 Sodium Potassium Chloride Carbon Dioxide BUN Creatinine Glucose POC Glucose 189 H 214 H 160 H Hemoglobin A1c Lactic Acid Calcium Magnesium Total Bilirubin Direct Bilirubin AST ALT Alkaline Phosphatase Total Creatine Kinase CK-MB (CK-2) Troponin T NT-Pro-B Natriuret Pep Total Protein Albumin Triglycerides LDL Cholesterol Direct HDL Cholesterol Urine WBC (Auto) Crossmatch 03/03/19 03/03/19 03/03/19 04:10 04:52 05:20 WBC RBC Hgb Hct MCHC RDW Plt Count Seg Neuts % (Manual) Lymphocytes % (Manual) Monocytes % (Manual) Nucleated RBC % Seg Neutrophils # Man Lymphocytes # (Manual) Monocytes # (Manual) PT INR D-Dimer POC ABG pH POC ABG pCO2 34.7 L POC ABG pO2 51 L Sodium Potassium Chloride Carbon Dioxide BUN Creatinine Glucose POC Glucose 142 H 142 H Hemoglobin A1c Lactic Acid Calcium Magnesium Total Bilirubin Direct Bilirubin AST ALT Alkaline Phosphatase Total Creatine Kinase CK-MB (CK-2) Troponin T NT-Pro-B Natriuret Pep Total Protein Albumin Triglycerides LDL Cholesterol Direct HDL Cholesterol Urine WBC (Auto) Crossmatch 03/03/19 03/03/19 03/03/19 06:06 06:50 08:01 WBC RBC Hgb Hct MCHC RDW Plt Count Seg Neuts % (Manual) Lymphocytes % (Manual) Monocytes % (Manual) Nucleated RBC % Seg Neutrophils # Man Lymphocytes # (Manual) Monocytes # (Manual) PT INR D-Dimer POC ABG pH POC ABG pCO2 POC ABG pO2 Sodium Potassium Chloride Carbon Dioxide BUN Creatinine Glucose POC Glucose 127 H 131 H 137 H Hemoglobin A1c Lactic Acid Calcium Magnesium Total Bilirubin Direct Bilirubin AST ALT Alkaline Phosphatase Total Creatine Kinase CK-MB (CK-2) Troponin T NT-Pro-B Natriuret Pep Total Protein Albumin Triglycerides LDL Cholesterol Direct HDL Cholesterol Urine WBC (Auto) Crossmatch 03/03/19 03/03/19 03/03/19 08:30 08:30 08:30 WBC 14.0 H RBC 3.52 L Hgb 9.9 L D Hct 29.8 L D MCHC RDW 16.6 H Plt Count Seg Neuts % (Manual) 92.0 H Lymphocytes % (Manual) 5.0 L Monocytes % (Manual) Nucleated RBC % 13.0 H Seg Neutrophils # Man 0.0 L Lymphocytes # (Manual) 0.0 L Monocytes # (Manual) PT INR D-Dimer POC ABG pH POC ABG pCO2 POC ABG pO2 Sodium Potassium 5.3 H D Chloride Carbon Dioxide BUN 38 H Creatinine 4.0 H Glucose 135 H POC Glucose Hemoglobin A1c Lactic Acid 4.00 H* Calcium 6.8 L D Magnesium 1.60 L Total Bilirubin 1.30 H Direct Bilirubin AST 4012 H ALT 1793 H Alkaline Phosphatase 259 H Total Creatine Kinase CK-MB (CK-2) Troponin T NT-Pro-B Natriuret Pep Total Protein 4.6 L Albumin 2.0 L Triglycerides LDL Cholesterol Direct HDL Cholesterol Urine WBC (Auto) Crossmatch 03/03/19 03/03/19 03/03/19 09:03 10:17 11:15 WBC RBC Hgb Hct MCHC RDW Plt Count Seg Neuts % (Manual) Lymphocytes % (Manual) Monocytes % (Manual) Nucleated RBC % Seg Neutrophils # Man Lymphocytes # (Manual) Monocytes # (Manual) PT INR D-Dimer POC ABG pH POC ABG pCO2 POC ABG pO2 Sodium Potassium Chloride Carbon Dioxide BUN Creatinine Glucose POC Glucose 108 H 113 H 126 H Hemoglobin A1c Lactic Acid Calcium Magnesium Total Bilirubin Direct Bilirubin AST ALT Alkaline Phosphatase Total Creatine Kinase CK-MB (CK-2) Troponin T NT-Pro-B Natriuret Pep Total Protein Albumin Triglycerides LDL Cholesterol Direct HDL Cholesterol Urine WBC (Auto) Crossmatch 03/03/19 03/03/19 03/03/19 13:38 17:02 20:41 WBC RBC Hgb Hct MCHC RDW Plt Count Seg Neuts % (Manual) Lymphocytes % (Manual) Monocytes % (Manual) Nucleated RBC % Seg Neutrophils # Man Lymphocytes # (Manual) Monocytes # (Manual) PT INR D-Dimer > 64856 H POC ABG pH POC ABG pCO2 POC ABG pO2 Sodium Potassium Chloride Carbon Dioxide BUN Creatinine Glucose POC Glucose 195 H 195 H Hemoglobin A1c Lactic Acid Calcium Magnesium Total Bilirubin Direct Bilirubin AST ALT Alkaline Phosphatase Total Creatine Kinase CK-MB (CK-2) Troponin T NT-Pro-B Natriuret Pep Total Protein Albumin Triglycerides LDL Cholesterol Direct HDL Cholesterol Urine WBC (Auto) Crossmatch 03/03/19 03/04/19 03/04/19 23:48 04:32 05:15 WBC RBC Hgb Hct MCHC RDW Plt Count Seg Neuts % (Manual) Lymphocytes % (Manual) Monocytes % (Manual) Nucleated RBC % Seg Neutrophils # Man Lymphocytes # (Manual) Monocytes # (Manual) PT INR D-Dimer POC ABG pH POC ABG pCO2 POC ABG pO2 Sodium Potassium 5.8 H Chloride 96.2 L Carbon Dioxide BUN 46 H Creatinine 4.6 H Glucose 253 H POC Glucose 206 H 248 H Hemoglobin A1c Lactic Acid Calcium 6.5 L Magnesium Total Bilirubin 1.30 H Direct Bilirubin AST 1662 H ALT 1186 H Alkaline Phosphatase 250 H Total Creatine Kinase CK-MB (CK-2) Troponin T NT-Pro-B Natriuret Pep Total Protein 4.3 L Albumin 1.7 L Triglycerides LDL Cholesterol Direct HDL Cholesterol Urine WBC (Auto) Crossmatch 03/04/19 03/04/19 03/04/19 05:15 05:15 07:55 WBC RBC Hgb 9.2 L Hct 28.0 L MCHC RDW Plt Count 123 L Seg Neuts % (Manual) Lymphocytes % (Manual) Monocytes % (Manual) Nucleated RBC % Seg Neutrophils # Man Lymphocytes # (Manual) Monocytes # (Manual) PT INR D-Dimer POC ABG pH POC ABG pCO2 POC ABG pO2 Sodium Potassium Chloride Carbon Dioxide BUN Creatinine Glucose POC Glucose 264 H Hemoglobin A1c Lactic Acid 3.40 H* Calcium Magnesium Total Bilirubin Direct Bilirubin AST ALT Alkaline Phosphatase Total Creatine Kinase CK-MB (CK-2) Troponin T NT-Pro-B Natriuret Pep Total Protein Albumin Triglycerides LDL Cholesterol Direct HDL Cholesterol Urine WBC (Auto) Crossmatch 03/04/19 03/04/19 03/04/19 08:08 11:27 14:14 WBC RBC Hgb Hct MCHC RDW Plt Count Seg Neuts % (Manual) Lymphocytes % (Manual) Monocytes % (Manual) Nucleated RBC % Seg Neutrophils # Man Lymphocytes # (Manual) Monocytes # (Manual) PT INR D-Dimer POC ABG pH POC ABG pCO2 POC ABG pO2 122 H Sodium Potassium Chloride Carbon Dioxide BUN Creatinine Glucose POC Glucose 269 H Hemoglobin A1c Lactic Acid 3.50 H* Calcium Magnesium Total Bilirubin Direct Bilirubin AST ALT Alkaline Phosphatase Total Creatine Kinase CK-MB (CK-2) Troponin T NT-Pro-B Natriuret Pep Total Protein Albumin Triglycerides LDL Cholesterol Direct HDL Cholesterol Urine WBC (Auto) Crossmatch 03/04/19 03/04/19 03/05/19 17:02 20:23 00:14 WBC RBC Hgb Hct MCHC RDW Plt Count Seg Neuts % (Manual) Lymphocytes % (Manual) Monocytes % (Manual) Nucleated RBC % Seg Neutrophils # Man Lymphocytes # (Manual) Monocytes # (Manual) PT INR D-Dimer POC ABG pH POC ABG pCO2 POC ABG pO2 Sodium Potassium Chloride Carbon Dioxide BUN Creatinine Glucose POC Glucose 300 H 349 H 350 H Hemoglobin A1c Lactic Acid Calcium Magnesium Total Bilirubin Direct Bilirubin AST ALT Alkaline Phosphatase Total Creatine Kinase CK-MB (CK-2) Troponin T NT-Pro-B Natriuret Pep Total Protein Albumin Triglycerides LDL Cholesterol Direct HDL Cholesterol Urine WBC (Auto) Crossmatch 03/05/19 03/05/19 03/05/19 04:53 10:34 12:11 WBC RBC Hgb Hct MCHC RDW Plt Count Seg Neuts % (Manual) Lymphocytes % (Manual) Monocytes % (Manual) Nucleated RBC % Seg Neutrophils # Man Lymphocytes # (Manual) Monocytes # (Manual) PT INR D-Dimer POC ABG pH POC ABG pCO2 POC ABG pO2 Sodium Potassium 5.6 H Chloride Carbon Dioxide 21 L BUN 51 H Creatinine 5.6 H Glucose 285 H POC Glucose 313 H 257 H Hemoglobin A1c Lactic Acid Calcium 7.3 L Magnesium Total Bilirubin Direct Bilirubin AST ALT Alkaline Phosphatase Total Creatine Kinase CK-MB (CK-2) Troponin T NT-Pro-B Natriuret Pep Total Protein Albumin Triglycerides LDL Cholesterol Direct HDL Cholesterol Urine WBC (Auto) Crossmatch
--- NOTE | 2019-03-05 14:04 | Progress Note ---
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 CT head; no acute findings CXR no acute findings Labs; UA > 182 WBC Micro; urine and blood growing ecoli sens to current abx Diagnosis sepsis, ecoli Bactermia and Ecoli UTI PNA? Acute hypoxic respiratory failure anemia, likely due to chronic disease and critical illness HHNK, Type 2 DM, A1c 9 Hyponatremia, likely pseudohyponatremia of hyperglycemia Hyperkalemia GERALDINE- likely ATN Hypomagesemia- resolved PAD hx of RLE ischemia, sp thrombolysis, revascularization and fascitomy dry gangrene, R second toe Rhabdomylsis, non traumatic acute metabolic encephalopathy Fluid overload Acute cva HI Anoxic encephalopathy Acute kidney injury due to ATN Shock liver/transaminitis Distributive shock Plan * UTI/bacteremia; The patient had sepsis due to Escherichia coli bacteremia and Escherichia coli UTI. She completed a course of antibiotics for that on 02/20 * The patient had some necrotic tissue on her right leg, she was seen by vascular surgery, status post debridement of right leg on 02/20, necrotic tissue was removed. 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 Imaging showed infiltrates, she received Lasix after which infiltrate completely resolved. Therefore it was due to vascular congestion, pneumonia was at that time ruled out. VQ scan and lower extremity Dopplers were negative which at that time excluded VTE. Her respiratory status was improving, she was being weaned off oxygen. Echo showed preserved EF * She initially presented with severe hyperglycemia, she was treated with insulin and IV fluids, she was put on bolus and basal insulin and her sugars improved * She had hypomagnesemia, and if her magnesium was repleted. She also had elevated potassium for which she received single dose of Kayexalate on 02/17 * The patient was improving and was planned for rehabilitation placement, but unfortunately she had a decline * received multiple units of pr she had anemia, bc, first unit on 02/18, then had another drop in hct after code blue on 03/01 after which she got another 3 units, ; seen by GI, they did not suspect acute GI bleed. * 02/28, she developed chest pain or shortness of breath, put on anticoagulation, was being seen by cardiology for possible HI, as PE was again suspected, anticoagulation was later discontinued due to anemia * 03/01, she became pulseless, ROZ RAZA was called, she received CPR, had ROSC was then intubated and sedated, but per her family was only moving her right side at that time, she was on pressors and was too unstable to go to CT scan * 03/02, the patient was more stable, therefore she was taking for CT scan which confirmed subacute cerebral stroke, at this time the patient was now completely obtunded, not responsive to painful stimuli, and only had a gag reflex, fixed pupils and absence of most reflexes. Stroke protocol place, neurology consult placed. Patient already on aspirin, unable to tolerate statins due to markedly elevated LFTs, this is most likely due to shock liver, the patient remains pressor dependent * 03/03, the patient now has no reflexes, no gag reflex, no corneal reflex. Prognosis is very poor at this time, family meeting planned for tomorrow. Nuclear medicine brain flow scan ordered. * 03/04, brain flow scan unequivocal, minimal blood flow, carson neurolgy, plan for EEG, had family meeting and discussed goals of care, advance directives and prognosis, time spent was 60 minutes, repleted calcium * 03/05, EEG shows no activity with provocation, cars[facility] Neurologist, patient is now brain , awaiting family who are traveling from [place] prior to pronouncing, plan to pronounce tomorrow. Called her sister Joyce 3 times at [phone], unable to leave voicemail. nurse made aware to call me if family comes to the hospital, has worsening GERALDINE, and has mild hyperkalemia, cont conservative measure, not a candidate for HD, cars[facility] nephrology, remains vent and pressor dependent Prognosis for recovery is poor, this was dw family CCT 33 minutes History Interval history: The patient is obtunded, intubated, not on sedation No vomiting, no seizures, no agitation. Patient has been nonresponsive Hospitalist Physical - Physical exam Narrative exam: General.: Obtunded, appears ill HEENT: Corneal edema noted Neck: supple Cardiac: S1-S2 heard Lungs: Ventilated breath sounds Abdomen: soft , nontender, nondistended, bowel sounds positive Extremities: Bilateral lower extremity bandages noted, bandages to right lower extremity when not removed on my exam Skin: no rash or lesions Neurologic: The patient does not open her eyes, does not move any extremities, does not respond to painful stimuli, she lacks any brainstem reflexes, gag reflex absence - Constitutional Vitals: Temp Pulse Resp BP Pulse Ox 99.3 F 101 H 20 111/58 97 03/05/19 12:00 03/05/19 12:39 03/05/19 09:13 03/05/19 12:39 03/05/19 12:39 General appearance: Present: other (intubated, nonresponsive, off sedation ) Results - Labs CBC & Chem 7: 03/04/19 05:15 03/05/19 10:34 Labs: Laboratory Last Values WBC 14.0 K/mm3 (4.5-11.0) H 03/03/19 08:30 RBC 3.52 M/mm3 (3.65-5.03) L 03/03/19 08:30 Hgb 9.2 gm/dl (10.1-14.3) L 03/04/19 05:15 Hct 28.0 % (30.3-42.9) L 03/04/19 05:15 MCV 85 fl (79-97) 03/03/19 08:30 MCH 28 pg (28-32) 03/03/19 08:30 MCHC 33 % (30-34) 03/03/19 08:30 RDW 16.6 % (13.2-15.2) H 03/03/19 08:30 Plt Count 123 K/mm3 (140-440) L 03/04/19 05:15 Lymph % (Auto) Assembly Department Supervisor 02/17/19 10:41 [place] % (Auto) Assembly Department Supervisor 02/17/19 10:41 Eos % (Auto) Assembly Department Supervisor 02/17/19 10:41 Baso % (Auto) Assembly Department Supervisor 02/17/19 10:41 Lymph # Assembly Department Supervisor 02/17/19 10:41 [place] # Assembly Department Supervisor 02/17/19 10:41 Eos # Assembly Department Supervisor 02/17/19 10:41 Baso # Assembly Department Supervisor 02/17/19 10:41 Add Manual Diff Complete 03/03/19 08:30 Total Counted 100 03/03/19 08:30 Seg Neutrophils % Assembly Department Supervisor 02/17/19 10:41 Seg Neuts % (Manual) 92.0 % (40.0-70.0) H 03/03/19 08:30 Band Neutrophils % 0 % 03/03/19 08:30 Lymphocytes % (Manual) 5.0 % (13.4-35.0) L 03/03/19 08:30 Reactive Lymphs % (Man) 0 % 03/03/19 08:30 Monocytes % (Manual) 1.0 % (0.0-7.3) 03/03/19 08:30 Eosinophils % (Manual) 0 % (0.0-4.3) 03/03/19 08:30 Basophils % (Manual) 0 % (0.0-1.8) 03/03/19 08:30 Metamyelocytes % 1.0 % 03/03/19 08:30 Myelocytes % 1.0 % 03/03/19 08:30 Promyelocytes % 0 % 03/03/19 08:30 Blast Cells % 0 % 03/03/19 08:30 Nucleated RBC % 13.0 % (0.0-0.9) H 03/03/19 08:30 Seg Neutrophils # Assembly Department Supervisor 02/17/19 10:41 Seg Neutrophils # Man 0.0 K/mm3 (1.8-7.7) L 03/03/19 08:30 Band Neutrophils # 0.0 K/mm3 03/03/19 08:30 Lymphocytes # (Manual) 0.0 K/mm3 (1.2-5.4) L 03/03/19 08:30 Abs React Lymphs (Man) 0.0 K/mm3 03/03/19 08:30 Monocytes # (Manual) 0.0 K/mm3 (0.0-0.8) 03/03/19 08:30 Eosinophils # (Manual) 0.0 K/mm3 (0.0-0.4) 03/03/19 08:30 Basophils # (Manual) 0.0 K/mm3 (0.0-0.1) 03/03/19 08:30 Metamyelocytes # 0.0 K/mm3 03/03/19 08:30 Myelocytes # 0.0 K/mm3 03/03/19 08:30 Promyelocytes # 0.0 K/mm3 03/03/19 08:30 Blast Cells # 0.0 K/mm3 03/03/19 08:30 WBC Morphology Not Reportable 03/03/19 08:30 Hypersegmented Neuts Not Reportable 03/03/19 08:30 Hyposegmented Neuts Not Reportable 03/03/19 08:30 Hypogranular Neuts Not Reportable 03/03/19 08:30 Smudge Cells Not Reportable 03/03/19 08:30 Toxic Granulation Not Reportable 03/03/19 08:30 Toxic Vacuolation Not Reportable 03/03/19 08:30 Dohle Bodies Not Reportable 03/03/19 08:30 Pelger-Huet Anomaly Not Reportable 03/03/19 08:30 Cisco Rods Not Reportable 03/03/19 08:30 Platelet Estimate Consistent w auto 03/03/19 08:30 Clumped Platelets Not Reportable 03/03/19 08:30 Plt Clumps, EDTA Not Reportable 03/03/19 08:30 Large Platelets Few 03/03/19 08:30 Giant Platelets Not Reportable 03/03/19 08:30 Platelet Satelliting Not Reportable 03/03/19 08:30 Plt Morphology Comment Not Reportable 03/03/19 08:30 RBC Morphology Not Reportable 03/03/19 08:30 Dimorphic RBCs Not Reportable 03/03/19 08:30 Polychromasia Not Reportable 03/03/19 08:30 Hypochromasia Not Reportable 03/03/19 08:30 Poikilocytosis Not Reportable 03/03/19 08:30 Anisocytosis 1+ 03/03/19 08:30 Microcytosis Not Reportable 03/03/19 08:30 Macrocytosis Not Reportable 03/03/19 08:30 Spherocytes Not Reportable 03/03/19 08:30 Pappenheimer Bodies Not Reportable 03/03/19 08:30 Sickle Cells Not Reportable 03/03/19 08:30 Target Cells Not Reportable 03/03/19 08:30 Tear Drop Cells Not Reportable 03/03/19 08:30 Ovalocytes Not Reportable 03/03/19 08:30 Helmet Cells Not Reportable 03/03/19 08:30 Starkey-Virden Bodies Not Reportable 03/03/19 08:30 Leslie Rings Not Reportable 03/03/19 08:30 [place] Cells Not Reportable 03/03/19 08:30 Bite Cells Not Reportable 03/03/19 08:30 Crenated Cell Not Reportable 03/03/19 08:30 Elliptocytes Not Reportable 03/03/19 08:30 Acanthocytes (Spur) Not Reportable 03/03/19 08:30 Rouleaux Not Reportable 03/03/19 08:30 Hemoglobin C Crystals Not Reportable 03/03/19 08:30 Schistocytes Not Reportable 03/03/19 08:30 Malaria parasites Not Reportable 03/03/19 08:30 Augusto Bodies Not Reportable 03/03/19 08:30 Hem Pathologist Commnt No 03/03/19 08:30 PT 15.5 Sec. (12.2-14.9) H 02/28/19 18:33 INR 1.16 (0.87-1.13) H 02/28/19 18:33 APTT 29.5 Sec. (24.2-36.6) 02/28/19 18:33 Fibrinogen 333 mg/dl (211-480) 03/03/19 13:38 D-Dimer > 58825 ng/mlDDU (0-234) H 03/03/19 13:38 Heparin Anti-Xa Level 0.42 U.I./ml (0.3-0.7) 03/01/19 00:48 POC ABG pH 7.361 (7.35-7.45) 03/05/19 03:07 POC ABG pCO2 37.4 (35-45) 03/05/19 03:07 POC ABG pO2 81 (80-105) 03/05/19 03:07 POC ABG HCO3 21.2 (22-26 mml/L) 03/05/19 03:07 POC ABG Total CO2 22 (23-27mmol/L) 03/05/19 03:07 POC ABG O2 Sat 96 03/05/19 03:07 POC ABG Base Excess -4 ((-2) - (+3)mmol/L) 03/05/19 03:07 VBG pH 7.379 (7.320-7.420) 02/13/19 14:08 FiO2 35 % 03/05/19 03:07 Sodium 138 mmol/L (137-145) 03/05/19 10:34 Potassium 5.6 mmol/L (3.6-5.0) H 03/05/19 10:34 Chloride 101.8 mmol/L (98-107) 03/05/19 10:34 Carbon Dioxide 21 mmol/L (22-30) L 03/05/19 10:34 Anion Gap 21 mmol/L 03/05/19 10:34 BUN 51 mg/dL (7-17) H 03/05/19 10:34 Creatinine 5.6 mg/dL (0.7-1.2) H 03/05/19 10:34 Estimated GFR 9 ml/min 03/05/19 10:34 BUN/Creatinine Ratio 9 % 03/05/19 10:34 Glucose 285 mg/dL (65-100) H 03/05/19 10:34 POC Glucose 257 (70-105) H 03/05/19 12:11 Hemoglobin A1c 9.2 % (4-6) H 02/13/19 18:15 Ketones Quantitative Negative (Negative) 02/13/19 14:08 Lactic Acid 3.50 mmol/L (0.7-2.0) H* 03/04/19 08:08 Calcium 7.3 mg/dL (8.4-10.2) L 03/05/19 10:34 Phosphorus 4.50 mg/dL (2.5-4.5) 03/03/19 08:30 Magnesium 1.60 mg/dL (1.7-2.3) L 03/03/19 08:30 Total Bilirubin 1.30 mg/dL (0.1-1.2) H 03/04/19 05:15 Direct Bilirubin 1.1 mg/dL (0-0.2) H 02/13/19 14:08 Indirect Bilirubin 0.4 mg/dL 02/13/19 14:08 AST 1662 units/L (5-40) H 03/04/19 05:15 ALT 1186 units/L (7-56) H 03/04/19 05:15 Alkaline Phosphatase 250 units/L (35-129) H 03/04/19 05:15 Ammonia 40.0 umol/L (25-60) 02/13/19 14:15 Total Creatine Kinase 165 units/L (30-135) H 02/28/19 18:33 CK-MB (CK-2) 4.9 ng/mL (0.0-4.0) H 02/28/19 18:33 CK-MB (CK-2) Rel Index 2.9 (0-4) 02/28/19 18:33 Troponin T 13.790 ng/mL (0.00-0.029) H* D 03/02/19 04:20 NT-Pro-B Natriuret Pep 6167 pg/mL (0-900) H 02/13/19 14:15 Total Protein 4.3 g/dL (6.3-8.2) L 03/04/19 05:15 Albumin 1.7 g/dL (3.9-5) L 03/04/19 05:15 Albumin/Globulin Ratio 0.7 % 03/04/19 05:15 Triglycerides 329 mg/dL (2-149) H 02/13/19 14:20 Cholesterol 159 mg/dL (50-199) 02/13/19 14:20 LDL Cholesterol Direct 36 mg/dL (50-130) L 02/13/19 14:20 HDL Cholesterol 17 mg/dL (40-59) L 02/13/19 14:20 Cholesterol/HDL Ratio 9.35 % 02/13/19 14:20 Amylase 34 units/L (27-131) 03/01/19 00:48 Urine Color Steffi (Yellow) 03/02/19 20:29 Urine Turbidity Slightly-cloudy (Clear) 03/02/19 20:29 Urine pH 6.0 (5.0-7.0) 03/02/19 20:29 Ur Specific [place] 1.011 (1.003-1.030) 03/02/19 20:29 Urine Protein 100 mg/dl mg/dL (Negative) 03/02/19 20:29 Urine Glucose (UA) 50 mg/dL (Negative) 03/02/19 20:29 Urine Ketones Neg mg/dL (Negative) 03/02/19 20:29 Urine Blood Lg (Negative) 03/02/19 20:29 Urine Nitrite Neg (Negative) 03/02/19 20:29 Urine Bilirubin Neg (Negative) 03/02/19 20:29 Urine Urobilinogen < 2.0 mg/dL (<2.0) 03/02/19 20:29 Ur Leukocyte Esterase Mod (Negative) 03/02/19 20:29 Urine WBC (Auto) 17.0 /HPF (0.0-6.0) H 03/02/19 20:29 Urine RBC (Auto) 29.0 /HPF (0.0-6.0) 03/02/19 20:29 U Epithel Cells (Auto) 1.0 /HPF (0-13.0) 02/14/19 09:07 Urine Bacteria (Auto) 2+ /HPF (Negative) 03/02/19 20:29 Urine WBC Clumps 3+ /HPF 02/14/19 09:07 Ur Transition Epith Cell 1 /HPF 02/14/19 09:07 Urine Mucus Few /HPF 02/14/19 09:07 Urine Yeast (Budding) 3+ /HPF 03/02/19 20:29 Urine Eosinophils None seen (None Seen) 03/01/19 06:50 Vancomycin Trough 14.5 ug/mL (5.0-20.0) 02/15/19 05:32 Random Vancomycin 22.7 ug/mL (0-40.0) 03/04/19 05:15 Urine Opiates Screen Presumptive negative 02/14/19 09:07 Urine Methadone Screen Presumptive negative 02/14/19 09:07 Ur Barbiturates Screen Presumptive negative 02/14/19 09:07 Ur Phencyclidine Scrn Presumptive negative 02/14/19 09:07 Ur Amphetamines Screen Presumptive negative 02/14/19 09:07 U Benzodiazepines Scrn Presumptive negative 02/14/19 09:07 Urine Cocaine Screen Presumptive negative 02/14/19 09:07 U Marijuana (THC) Screen Presumptive negative 02/14/19 09:07 Drugs of Abuse Note Disclamer 02/14/19 09:07 Blood Type B POSITIVE 03/01/19 07:30 Antibody Screen Negative 03/01/19 07:30 Crossmatch See Detail 03/01/19 07:30 Active Medications - Current Medications Current Medications: Generic Name Dose Route Start Last Admin Trade Name Freq PRN Reason Stop Dose Admin Acetaminophen 650 mg 02/13/19 18:03 Tylenol PO Q4H PRN Pain MILD(1-3)/Fever >100.5/MARTÍNEZ Albuterol 2.5 mg 02/22/19 04:53 02/28/19 16:08 Proventil IH 2.5 mg Q6HRT PRN Administration Shortness Of Breath Albuterol/Ipratropium 1 ampul 03/31/19 16:45 03/05/19 09:00 Duoneb *Not For Prn Use* IH 1 ampul Q6HRT RAFAEL Administration Aspirin 325 mg 02/28/19 19:00 03/04/19 10:19 Aspirin PO 325 mg QDAY RAFAEL Administration Dextrose 50 ml 03/02/19 08:04 D50w (25gm) Syringe IV PRN PRN Hypoglycemia Fentanyl 50 mcg 02/28/19 21:01 Sublimaze IV Q10MIN PRN ANALGESIA Furosemide 80 mg 03/03/19 10:00 03/05/19 05:20 Lasix IV 80 mg 0600,1800 RAFAEL Administration Hydralazine HCl 10 mg 03/02/19 15:28 Apresoline IV Q4HR PRN BP >180/110 Hydrophilic Ointment 1 applic 02/28/19 21:29 Vaseline Lip Therapy TP Q2HR PRN Dry Lips Fentanyl Citrate 2,000 mcg in 100 mls @ 5.665 mls/hr 02/28/19 22:00 03/01/19 00:46 Fentanyl Drip Premix IV 0 mcg/kg/hr TITR RAFAEL 0 mls/hr Titration Protocol 1 MCG/KG/HR Dopamine HCl/Dextrose 800 mg in 250 mls @ 4.249 mls/hr 03/01/19 01:35 03/02/19 00:13 Intropin Drip 800 Mg/D5w 250 Ml IV 0 mcg/kg/min TITR RAFAEL 0 mls/hr Titration Protocol 2 MCG/KG/MIN Cefepime HCl 2 gm in 100 mls @ 200 mls/hr 03/01/19 20:00 03/04/19 10:20 Maxipime/Ns 2 Gm/100 Ml IV 200 mls/hr Q24HR RAFAEL Administration Protocol Sodium Chloride 1,000 mls @ 42 mls/hr 03/02/19 10:00 03/04/19 18:29 Nacl 0.9% 1000 Ml IV 42 mls/hr DIRECT RAFAEL Administration Dobutamine HCl/Dextrose 500 mg in 250 mls @ 16.995 mls/hr 03/04/19 11:00 03/04/19 23:30 Dobutrex Drip 500mg/D5w 250ml IV 0 mcg/kg/min DIRECT RAFAEL 0 mls/hr Infusion 5 MCG/KG/MIN Norepinephrine 8 mg/ Sodium 250 mls @ 3.75 mls/hr 03/04/19 21:00 03/05/19 03:40 Chloride IV 26 mcg/min TITR RAFAEL 48.75 mls/hr Administration Protocol 2 MCG/MIN Insulin Glargine 30 units 03/05/19 14:04 Lantus SUB-Q DAILY RAFAEL Insulin Human Lispro 0 unit 03/03/19 12:00 03/05/19 05:19 Humalog SUB-Q 8 unit Q4H RAFAEL Administration Protocol Insulin Human NPH 15 unit 03/05/19 22:00 Humulin N SUB-Q 03/05/19 22:01 ONCE ONE Multi-Ingred Cream/Lotion/Oil/Oint 1 applic 03/03/19 10:39 03/03/19 11:07 Artificial Tears Ophth Oint OU 1 applic PRN PRN Administration Dry Eye(s) Ondansetron HCl 4 mg 02/13/19 18:03 Zofran IV Q8H PRN Nausea And Vomiting Pantoprazole Sodium 40 mg 03/02/19 22:00 03/04/19 22:28 Protonix IV 40 mg BID RAFAEL Administration Sodium Chloride 10 ml 02/13/19 22:00 03/04/19 22:28 Sodium Chloride Flush Syringe 10 Ml IV 10 ml BID RAFAEL Administration Sodium Chloride 10 ml 02/13/19 18:03 Sodium Chloride Flush Syringe 10 Ml IV PRN PRN LINE FLUSH Nutrition/Malnutrition Assess - Dietary Evaluation Nutrition/Malnutrition Findings: Nutrition Notes Start: 02/19/19 14:33 Freq: Status: Active Protocol: Document 02/19/19 14:34 RM (Rec: 02/19/19 14:34 RM [id number]) Nutrition Notes Need for Assessment generated from: LOS Initial or Follow up Brief Note Height 5 ft 3 in Weight 110.03 kg [place] Body Weight (kg) 52.27 BMI 43.0 Subjective/Other Information Screened for LOS. PO intake 85% X 2 days. Nutrition Intervention Revisit per MD consult or patient Sign Off request:
--- NOTE | 2019-03-05 14:13 | Progress Note ---
Assessment and Plan Cultures: 02/13/2019 blood culture: E. coli, 4 out of 4 bottles 02/14/2019 urine culture: E. coli 02/16/2019 Blood culture: no growth 02/22/2019 Blood culture: no growth 03/01/2019 Blood culture: no growth 03/01/2019 urine culture: no significant growth 03/02/2019 tracheal aspirate: normal resp juan A/P: 58-year-old female with hypertension, diabetes mellitus type 2, peripheral vascular disease who was recently hospitalized from vascular surgery clinic due to right second toe gangrene. She underwent thrombolysis of the right lower extremity and underwent a stent placement. She developed compartment syndrome requiring fasciotomy on 01/29/2019 and then was discharged to a rehabilitation facility, admitted with: 1) Cardiac arrest and shock with new CVA: severe lactic acidosis, anemia. Etiology septic v/s cardiogenic. Critically ill, on pressors, ventilator. Also with bilateral pneumonia, probably from aspiration following arrest. 2) E.coli bacteremia: urinary source. Completed antibiotics (Cefazolin) several days ago with repeat cultures negative. 3) UTI: U/a shows Pyuria, WBC > 182 with large LE. Urine culture grew E.coli. Completed abx. 4) Acute kidney failure: Urine output low. Critically ill. Creatinine rising. 5) Peripheral vascular disease: Right second toe ischemia and gangrene. 6) Diabetes mellitus type 2, uncontrolled. 7) Shock liver Recs: continue IV Cefepime (renally adjusted) prognosis is poor, recommend palliative care MD [facility] C: [phone] O: [phone] F: [phone] Subjective Date of service: 03/05/19 Principal diagnosis: anemia Interval history: Remains unresponsive. Remains on the vent, pressors. Poor prognosis. EEG reportedly with no activity. Objective - Exam Narrative Exam: Physical Exam: Constitutional: intubated, unresponsive Head, Ears, Nose: Normocephalic, atraumatic. External ears, nose normal Eyes: Conjunctivae/corneas clear. No icterus. No ptosis. Neck: Supple, no meningeal signs Oral: intubated Cardiovascular: S1, S2 normal. Respiratory: AE b/l equal. No crackles. GI: bowel sounds hypoactive. No peritoneal signs Musculoskeletal: Right second toe with blackish discoloration, right calf with dressing Skin: No rash or abscess Hem/Lymphatic: No palpable cervical or supraclavicular nodes. No lymphangitis Psych: no agitation Neurological: intubated, on vent, unresponsive - Constitutional Vitals: Vital Signs Temp Pulse Resp BP Pulse Ox 99.3 F 101 H 20 111/58 97 03/05/19 12:00 03/05/19 12:39 03/05/19 09:13 03/05/19 12:39 03/05/19 12:39 Temperature -Last 24 Hours Temperature 99.3 F Temperature 99 F Temperature 98.5 F Temperature 98.7 F Temperature 98.1 F - Labs CBC & Chem 7: 03/04/19 05:15 03/05/19 10:34 Labs: Abnormal lab results 03/04/19 03/04/19 03/04/19 Range/Units 14:14 17:02 20:23 POC ABG pO2 122 H (80-105) Potassium (3.6-5.0) mmol/L Carbon Dioxide (22-30) mmol/L BUN (7-17) mg/dL Creatinine (0.7-1.2) mg/dL Glucose (65-100) mg/dL POC Glucose 300 H 349 H (70-105) Calcium (8.4-10.2) mg/dL 03/05/19 03/05/19 03/05/19 Range/Units 00:14 04:53 10:34 POC ABG pO2 (80-105) Potassium 5.6 H (3.6-5.0) mmol/L Carbon Dioxide 21 L (22-30) mmol/L BUN 51 H (7-17) mg/dL Creatinine 5.6 H (0.7-1.2) mg/dL Glucose 285 H (65-100) mg/dL POC Glucose 350 H 313 H (70-105) Calcium 7.3 L (8.4-10.2) mg/dL 03/05/19 Range/Units 12:11 POC ABG pO2 (80-105) Potassium (3.6-5.0) mmol/L Carbon Dioxide (22-30) mmol/L BUN (7-17) mg/dL Creatinine (0.7-1.2) mg/dL Glucose (65-100) mg/dL POC Glucose 257 H (70-105) Calcium (8.4-10.2) mg/dL - Imaging and cardiology Chest x-ray: report reviewed, image reviewed
[2019-03-06] MEDS: DUONEB *Not for PRN Use IH SCH ×4 (01:51→19:21)
[2019-03-06 04:59] LABS: Hematocrit 27.7 % (30.3-42.9); Hemoglobin 8.8 gm/dl (10.1-14.3)
[2019-03-06] MEDS: LEVOPHED 8 MG in NACL 0.9% 250ML 242 ML IV SCH ×4 (05:15→22:00)
[2019-03-06] MEDS: LASIX IV SCH ×2 (05:24→17:34)
[2019-03-06] MEDS: HumaLOG SUB-Q SCH ×6 (05:24→20:00)
--- NOTE | 2019-03-06 07:38 | XRay Report ---
PROCEDURE: PORTABLE CHEST TECHNIQUE: A portable AP chest radiograph was obtained at 03/06/2019 7:42 CDT. CPT 24654 HISTORY: Respiratory distress COMPARISONS: 03/05/2019. FINDINGS: Heart: Normal. Mediastinum/Vessels: Normal. Lungs/Pleural space: There is suboptimal inspiration. There are no acute infiltrates, effusions or p neumothoraces.. Bony thorax: No acute osseous abnormality. Life support devices: Endotracheal tube is in the distal trachea and should be pulled back 2 cm. NG t ube is in the stomach. There is a left-sided PICC line. The tip is in the superior vena cava.. IMPRESSION: The heart size is normal. There is suboptimal inspiration. There are no acute infiltrates, effusions or pneumothoraces.. Endotracheal tube is in the distal trachea and should be pulled back 2 cm. NG tube is in the stomach. There is a left-sided PICC line. The tip is in the superior vena cava.. This document is electronically signed by Denis Crook MD., March 06 2019 07:36:21 AM ET
--- NOTE | 2019-03-06 09:52 | Progress Note ---
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 CT head; no acute findings CXR no acute findings Labs; UA > 182 WBC Micro; urine and blood growing ecoli sens to current abx Diagnosis sepsis, ecoli Bactermia and Ecoli UTI PNA? Acute hypoxic respiratory failure anemia, likely due to chronic disease and critical illness HHNK, Type 2 DM, A1c 9 Hyponatremia, likely pseudohyponatremia of hyperglycemia Hyperkalemia GERALDINE- likely ATN Hypomagesemia- resolved PAD hx of RLE ischemia, sp thrombolysis, revascularization and fascitomy dry gangrene, R second toe Rhabdomylsis, non traumatic acute metabolic encephalopathy Fluid overload Acute cva [place] Anoxic encephalopathy Acute kidney injury due to ATN Shock liver/transaminitis Distributive shock Plan * UTI/bacteremia; The patient had sepsis due to Escherichia coli bacteremia and Escherichia coli UTI. She completed a course of antibiotics for that on 02/20 * The patient had some necrotic tissue on her right leg, she was seen by vascular surgery, status post debridement of right leg on 02/20, necrotic tissue was removed. 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 Imaging showed infiltrates, she received Lasix after which infiltrate completely resolved. Therefore it was due to vascular congestion, pneumonia was at that time ruled out. VQ scan and lower extremity Dopplers were negative which at that time excluded VTE. Her respiratory status was improving, she was being weaned off oxygen. Echo showed preserved EF * She initially presented with severe hyperglycemia, she was treated with insulin and IV fluids, she was put on bolus and basal insulin and her sugars improved * She had hypomagnesemia, and if her magnesium was repleted. She also had elevated potassium for which she received single dose of Kayexalate on 02/17 * The patient was improving and was planned for rehabilitation placement, but unfortunately she had a decline * received multiple units of pr she had anemia, bc, first unit on 02/18, then had another drop in hct after code blue on 03/01 after which she got another 3 units, ; seen by GI, they did not suspect acute GI bleed. * 02/28, she developed chest pain or shortness of breath, put on anticoagulation, was being seen by cardiology for possible AZ, as PE was again suspected, anticoagulation was later discontinued due to anemia * 03/01, she became pulseless, ROZ RAZA was called, she received CPR, had ROSC was then intubated and sedated, but per her family was only moving her right side at that time, she was on pressors and was too unstable to go to CT scan * 03/02, the patient was more stable, therefore she was taking for CT scan which confirmed subacute cerebral stroke, at this time the patient was now completely obtunded, not responsive to painful stimuli, and only had a gag reflex, fixed pupils and absence of most reflexes. Stroke protocol place, neurology consult placed. Patient already on aspirin, unable to tolerate statins due to markedly elevated LFTs, this is most likely due to shock liver, the patient remains pressor dependent * 03/03, the patient now has no reflexes, no gag reflex, no corneal reflex. Prognosis is very poor at this time, family meeting planned for tomorrow. Nuclear medicine brain flow scan ordered. * 03/04, brain flow scan unequivocal, minimal blood flow, [facility] neurolgy, plan for EEG, had family meeting and discussed goals of care, advance directives and prognosis, time spent was 60 minutes, repleted calcium * 03/05, EEG shows no activity with provocation, [facility] Neurologist, patient is now brain , awaiting family who are traveling from [place] prior to pronouncing, plan to pronounce after family travels to say their good bye. Called her sis Moreno 3 times at [phone], unable to leave voicemail. nurse made aware to call me if family comes to the hospital, has worsening GERALDINE, and has mild hyperkalemia, cont conservative measure, not a candidate for HD, [facility] nephrology, remains vent and pressor dependent * 03/06; patient is brain since 03/05, awaiting family to arrive to pronounce her. Prognosis for recovery is poor, this was dw family CCT 33 minutes History Interval history: The patient is obtunded, intubated, not on sedation No vomiting, no seizures, no agitation. Patient has been nonresponsive Hospitalist Physical - Physical exam Narrative exam: General.: Obtunded, appears ill HEENT: Corneal edema noted Neck: supple Cardiac: S1-S2 heard Lungs: Ventilated breath sounds Abdomen: soft , nontender, nondistended, bowel sounds positive Extremities: Bilateral lower extremity bandages noted, bandages to right lower extremity when not removed on my exam Skin: no rash or lesions Neurologic: The patient does not open her eyes, does not move any extremities, does not respond to painful stimuli, she lacks any brainstem reflexes, gag reflex absence - Constitutional Vitals: Temp Pulse Resp BP Pulse Ox 99.5 F 106 H 30 H 90/47 96 03/06/19 08:00 03/06/19 09:45 03/06/19 09:45 03/06/19 09:45 03/06/19 09:45 General appearance: Present: other (intubated, nonresponsive, off sedation ) Results - Labs CBC & Chem 7: 03/06/19 04:30 03/05/19 10:34 Labs: Laboratory Last Values WBC 14.0 K/mm3 (4.5-11.0) H 03/03/19 08:30 RBC 3.52 M/mm3 (3.65-5.03) L 03/03/19 08:30 Hgb 8.8 gm/dl (10.1-14.3) L 03/06/19 04:30 Hct 27.7 % (30.3-42.9) L 03/06/19 04:30 MCV 85 fl (79-97) 03/03/19 08:30 MCH 28 pg (28-32) 03/03/19 08:30 MCHC 33 % (30-34) 03/03/19 08:30 RDW 16.6 % (13.2-15.2) H 03/03/19 08:30 Plt Count 96 K/mm3 (140-440) L 03/06/19 04:30 Lymph % (Auto) [employer] 02/17/19 10:41 [place] % (Auto) [employer] 02/17/19 10:41 Eos % (Auto) [employer] 02/17/19 10:41 Baso % (Auto) [employer] 02/17/19 10:41 Lymph # [employer] 02/17/19 10:41 [place] # [employer] 02/17/19 10:41 Eos # [employer] 02/17/19 10:41 Baso # [employer] 02/17/19 10:41 Add Manual Diff Complete 03/03/19 08:30 Total Counted 100 03/03/19 08:30 Seg Neutrophils % [employer] 02/17/19 10:41 Seg Neuts % (Manual) 92.0 % (40.0-70.0) H 03/03/19 08:30 Band Neutrophils % 0 % 03/03/19 08:30 Lymphocytes % (Manual) 5.0 % (13.4-35.0) L 03/03/19 08:30 Reactive Lymphs % (Man) 0 % 03/03/19 08:30 Monocytes % (Manual) 1.0 % (0.0-7.3) 03/03/19 08:30 Eosinophils % (Manual) 0 % (0.0-4.3) 03/03/19 08:30 Basophils % (Manual) 0 % (0.0-1.8) 03/03/19 08:30 Metamyelocytes % 1.0 % 03/03/19 08:30 Myelocytes % 1.0 % 03/03/19 08:30 Promyelocytes % 0 % 03/03/19 08:30 Blast Cells % 0 % 03/03/19 08:30 Nucleated RBC % 13.0 % (0.0-0.9) H 03/03/19 08:30 Seg Neutrophils # [employer] 02/17/19 10:41 Seg Neutrophils # Man 0.0 K/mm3 (1.8-7.7) L 03/03/19 08:30 Band Neutrophils # 0.0 K/mm3 03/03/19 08:30 Lymphocytes # (Manual) 0.0 K/mm3 (1.2-5.4) L 03/03/19 08:30 Abs React Lymphs (Man) 0.0 K/mm3 03/03/19 08:30 Monocytes # (Manual) 0.0 K/mm3 (0.0-0.8) 03/03/19 08:30 Eosinophils # (Manual) 0.0 K/mm3 (0.0-0.4) 03/03/19 08:30 Basophils # (Manual) 0.0 K/mm3 (0.0-0.1) 03/03/19 08:30 Metamyelocytes # 0.0 K/mm3 03/03/19 08:30 Myelocytes # 0.0 K/mm3 03/03/19 08:30 Promyelocytes # 0.0 K/mm3 03/03/19 08:30 Blast Cells # 0.0 K/mm3 03/03/19 08:30 WBC Morphology Not Reportable 03/03/19 08:30 Hypersegmented Neuts Not Reportable 03/03/19 08:30 Hyposegmented Neuts Not Reportable 03/03/19 08:30 Hypogranular Neuts Not Reportable 03/03/19 08:30 Smudge Cells Not Reportable 03/03/19 08:30 Toxic Granulation Not Reportable 03/03/19 08:30 Toxic Vacuolation Not Reportable 03/03/19 08:30 Dohle Bodies Not Reportable 03/03/19 08:30 Pelger-Huet Anomaly Not Reportable 03/03/19 08:30 Cisco Rods Not Reportable 03/03/19 08:30 Platelet Estimate Consistent w auto 03/03/19 08:30 Clumped Platelets Not Reportable 03/03/19 08:30 Plt Clumps, EDTA Not Reportable 03/03/19 08:30 Large Platelets Few 03/03/19 08:30 Giant Platelets Not Reportable 03/03/19 08:30 Platelet Satelliting Not Reportable 03/03/19 08:30 Plt Morphology Comment Not Reportable 03/03/19 08:30 RBC Morphology Not Reportable 03/03/19 08:30 Dimorphic RBCs Not Reportable 03/03/19 08:30 Polychromasia Not Reportable 03/03/19 08:30 Hypochromasia Not Reportable 03/03/19 08:30 Poikilocytosis Not Reportable 03/03/19 08:30 Anisocytosis 1+ 03/03/19 08:30 Microcytosis Not Reportable 03/03/19 08:30 Macrocytosis Not Reportable 03/03/19 08:30 Spherocytes Not Reportable 03/03/19 08:30 Pappenheimer Bodies Not Reportable 03/03/19 08:30 Sickle Cells Not Reportable 03/03/19 08:30 Target Cells Not Reportable 03/03/19 08:30 Tear Drop Cells Not Reportable 03/03/19 08:30 Ovalocytes Not Reportable 03/03/19 08:30 Helmet Cells Not Reportable 03/03/19 08:30 [place] Bodies Not Reportable 03/03/19 08:30 [place] Rings Not Reportable 03/03/19 08:30 [place] Cells Not Reportable 03/03/19 08:30 Bite Cells Not Reportable 03/03/19 08:30 Crenated Cell Not Reportable 03/03/19 08:30 Elliptocytes Not Reportable 03/03/19 08:30 Acanthocytes (Spur) Not Reportable 03/03/19 08:30 Rouleaux Not Reportable 03/03/19 08:30 Hemoglobin C Crystals Not Reportable 03/03/19 08:30 Schistocytes Not Reportable 03/03/19 08:30 Malaria parasites Not Reportable 03/03/19 08:30 [place] Bodies Not Reportable 03/03/19 08:30 Hem Pathologist Commnt No 03/03/19 08:30 PT 15.5 Sec. (12.2-14.9) H 02/28/19 18:33 INR 1.16 (0.87-1.13) H 02/28/19 18:33 APTT 29.5 Sec. (24.2-36.6) 02/28/19 18:33 Fibrinogen 333 mg/dl (211-480) 03/03/19 13:38 D-Dimer > 79836 ng/mlDDU (0-234) H 03/03/19 13:38 Heparin Anti-Xa Level 0.42 U.I./ml (0.3-0.7) 03/01/19 00:48 POC ABG pH 7.332 (7.35-7.45) L 03/06/19 03:53 POC ABG pCO2 35.0 (35-45) 03/06/19 03:53 POC ABG pO2 83 (80-105) 03/06/19 03:53 POC ABG HCO3 18.5 (22-26 mml/L) 03/06/19 03:53 POC ABG Total CO2 20 (23-27mmol/L) 03/06/19 03:53 POC ABG O2 Sat 96 03/06/19 03:53 POC ABG Base Excess -7 ((-2) - (+3)mmol/L) 03/06/19 03:53 VBG pH 7.379 (7.320-7.420) 02/13/19 14:08 FiO2 35 % 03/06/19 03:53 Sodium 138 mmol/L (137-145) 03/05/19 10:34 Potassium 5.6 mmol/L (3.6-5.0) H 03/05/19 10:34 Chloride 101.8 mmol/L (98-107) 03/05/19 10:34 Carbon Dioxide 21 mmol/L (22-30) L 03/05/19 10:34 Anion Gap 21 mmol/L 03/05/19 10:34 BUN 51 mg/dL (7-17) H 03/05/19 10:34 Creatinine 5.6 mg/dL (0.7-1.2) H 03/05/19 10:34 Estimated GFR 9 ml/min 03/05/19 10:34 BUN/Creatinine Ratio 9 % 03/05/19 10:34 Glucose 285 mg/dL (65-100) H 03/05/19 10:34 POC Glucose 215 (70-105) H 03/06/19 04:19 Hemoglobin A1c 9.2 % (4-6) H 02/13/19 18:15 Ketones Quantitative Negative (Negative) 02/13/19 14:08 Lactic Acid 3.50 mmol/L (0.7-2.0) H* 03/04/19 08:08 Calcium 7.3 mg/dL (8.4-10.2) L 03/05/19 10:34 Phosphorus 4.50 mg/dL (2.5-4.5) 03/03/19 08:30 Magnesium 1.60 mg/dL (1.7-2.3) L 03/03/19 08:30 Total Bilirubin 1.30 mg/dL (0.1-1.2) H 03/04/19 05:15 Direct Bilirubin 1.1 mg/dL (0-0.2) H 02/13/19 14:08 Indirect Bilirubin 0.4 mg/dL 02/13/19 14:08 AST 1662 units/L (5-40) H 03/04/19 05:15 ALT 1186 units/L (7-56) H 03/04/19 05:15 Alkaline Phosphatase 250 units/L (35-129) H 03/04/19 05:15 Ammonia 40.0 umol/L (25-60) 02/13/19 14:15 Total Creatine Kinase 165 units/L (30-135) H 02/28/19 18:33 CK-MB (CK-2) 4.9 ng/mL (0.0-4.0) H 02/28/19 18:33 CK-MB (CK-2) Rel Index 2.9 (0-4) 02/28/19 18:33 Troponin T 13.790 ng/mL (0.00-0.029) H* D 03/02/19 04:20 NT-Pro-B Natriuret Pep 6167 pg/mL (0-900) H 02/13/19 14:15 Total Protein 4.3 g/dL (6.3-8.2) L 03/04/19 05:15 Albumin 1.7 g/dL (3.9-5) L 03/04/19 05:15 Albumin/Globulin Ratio 0.7 % 03/04/19 05:15 Triglycerides 329 mg/dL (2-149) H 02/13/19 14:20 Cholesterol 159 mg/dL (50-199) 02/13/19 14:20 LDL Cholesterol Direct 36 mg/dL (50-130) L 02/13/19 14:20 HDL Cholesterol 17 mg/dL (40-59) L 02/13/19 14:20 Cholesterol/HDL Ratio 9.35 % 02/13/19 14:20 Amylase 34 units/L (27-131) 03/01/19 00:48 Urine Color Steffi (Yellow) 03/02/19 20:29 Urine Turbidity Slightly-cloudy (Clear) 03/02/19 20:29 Urine pH 6.0 (5.0-7.0) 03/02/19 20:29 Ur Specific [place] 1.011 (1.003-1.030) 03/02/19 20:29 Urine Protein 100 mg/dl mg/dL (Negative) 03/02/19 20:29 Urine Glucose (UA) 50 mg/dL (Negative) 03/02/19 20:29 Urine Ketones Neg mg/dL (Negative) 03/02/19 20:29 Urine Blood Lg (Negative) 03/02/19 20:29 Urine Nitrite Neg (Negative) 03/02/19 20:29 Urine Bilirubin Neg (Negative) 03/02/19 20:29 Urine Urobilinogen < 2.0 mg/dL (<2.0) 03/02/19 20:29 Ur Leukocyte Esterase Mod (Negative) 03/02/19 20:29 Urine WBC (Auto) 17.0 /HPF (0.0-6.0) H 03/02/19 20:29 Urine RBC (Auto) 29.0 /HPF (0.0-6.0) 03/02/19 20:29 U Epithel Cells (Auto) 1.0 /HPF (0-13.0) 02/14/19 09:07 Urine Bacteria (Auto) 2+ /HPF (Negative) 03/02/19 20:29 Urine WBC Clumps 3+ /HPF 02/14/19 09:07 Ur Transition Epith Cell 1 /HPF 02/14/19 09:07 Urine Mucus Few /HPF 02/14/19 09:07 Urine Yeast (Budding) 3+ /HPF 03/02/19 20:29 Urine Eosinophils None seen (None Seen) 03/01/19 06:50 Vancomycin Trough 14.5 ug/mL (5.0-20.0) 02/15/19 05:32 Random Vancomycin 22.7 ug/mL (0-40.0) 03/04/19 05:15 Urine Opiates Screen Presumptive negative 02/14/19 09:07 Urine Methadone Screen Presumptive negative 02/14/19 09:07 Ur Barbiturates Screen Presumptive negative 02/14/19 09:07 Ur Phencyclidine Scrn Presumptive negative 02/14/19 09:07 Ur Amphetamines Screen Presumptive negative 02/14/19 09:07 U Benzodiazepines Scrn Presumptive negative 02/14/19 09:07 Urine Cocaine Screen Presumptive negative 02/14/19 09:07 U Marijuana (THC) Screen Presumptive negative 02/14/19 09:07 Drugs of Abuse Note Disclamer 02/14/19 09:07 Blood Type B POSITIVE 03/01/19 07:30 Antibody Screen Negative 03/01/19 07:30 Crossmatch See Detail 03/01/19 07:30 Active Medications - Current Medications Current Medications: Generic Name Dose Route Start Last Admin Trade Name Freq PRN Reason Stop Dose Admin Acetaminophen 650 mg 02/13/19 18:03 Tylenol PO Q4H PRN Pain MILD(1-3)/Fever >100.5/MARTÍNEZ Albuterol 2.5 mg 02/22/19 04:53 02/28/19 16:08 Proventil IH 2.5 mg Q6HRT PRN Administration Shortness Of Breath Albuterol/Ipratropium 1 ampul 02/28/19 16:45 03/06/19 09:08 Duoneb *Not For Prn Use* IH 1 ampul Q6HRT RAFAEL Administration Aspirin 325 mg 02/28/19 19:00 03/05/19 10:00 Aspirin PO 325 mg QDAY RAFAEL Administration Dextrose 50 ml 03/02/19 08:04 D50w (25gm) Syringe IV PRN PRN Hypoglycemia Fentanyl 50 mcg 02/28/19 21:01 Sublimaze IV Q10MIN PRN ANALGESIA Furosemide 80 mg 03/03/19 10:00 03/06/19 05:24 Lasix IV 80 mg 0600,1800 RAFAEL Administration Hydralazine HCl 10 mg 03/02/19 15:28 Apresoline IV Q4HR PRN BP >180/110 Hydrophilic Ointment 1 applic 02/28/19 21:29 Vaseline Lip Therapy TP Q2HR PRN Dry Lips Fentanyl Citrate 2,000 mcg in 100 mls @ 5.665 mls/hr 02/28/19 22:00 03/01/19 00:46 Fentanyl Drip Premix IV 0 mcg/kg/hr TITR RAFAEL 0 mls/hr Titration Protocol 1 MCG/KG/HR Dopamine HCl/Dextrose 800 mg in 250 mls @ 4.249 mls/hr 03/01/19 01:35 03/02/19 00:13 Intropin Drip 800 Mg/D5w 250 Ml IV 0 mcg/kg/min TITR RAFAEL 0 mls/hr Titration Protocol 2 MCG/KG/MIN Cefepime HCl 2 gm in 100 mls @ 200 mls/hr 03/01/19 20:00 03/05/19 10:00 Maxipime/Ns 2 Gm/100 Ml IV 200 mls/hr Q24HR RAFAEL Administration Protocol Sodium Chloride 1,000 mls @ 42 mls/hr 03/02/19 10:00 03/04/19 18:29 Nacl 0.9% 1000 Ml IV 42 mls/hr DIRECT RAFAEL Administration Dobutamine HCl/Dextrose 500 mg in 250 mls @ 16.995 mls/hr 03/04/19 11:00 03/04/19 23:30 Dobutrex Drip 500mg/D5w 250ml IV 0 mcg/kg/min DIRECT RAFAEL 0 mls/hr Infusion 5 MCG/KG/MIN Norepinephrine 8 mg/ Sodium 250 mls @ 3.75 mls/hr 03/04/19 21:00 03/06/19 05:29 Chloride IV 22 mcg/min TITR RAFAEL 41.25 mls/hr Titration Protocol 2 MCG/MIN Insulin Glargine 30 units 03/05/19 14:04 Lantus SUB-Q DAILY RAFAEL Insulin Human Lispro 0 unit 03/03/19 12:00 03/06/19 05:24 Humalog SUB-Q 4 unit Q4H RAFAEL Administration Protocol Multi-Ingred Cream/Lotion/Oil/Oint 1 applic 03/03/19 10:39 03/03/19 11:07 Artificial Tears Ophth Oint OU 1 applic PRN PRN Administration Dry Eye(s) Ondansetron HCl 4 mg 02/13/19 18:03 Zofran IV Q8H PRN Nausea And Vomiting Pantoprazole Sodium 40 mg 03/02/19 22:00 03/05/19 21:55 Protonix IV 40 mg BID RAFAEL Administration Sodium Chloride 10 ml 02/13/19 22:00 03/05/19 22:00 Sodium Chloride Flush Syringe 10 Ml IV 10 ml BID RAFAEL Administration Sodium Chloride 10 ml 02/13/19 18:03 Sodium Chloride Flush Syringe 10 Ml IV PRN PRN LINE FLUSH Nutrition/Malnutrition Assess - Dietary Evaluation Nutrition/Malnutrition Findings: Nutrition Notes Start: 02/19/19 14:33 Freq: Status: Active Protocol: Document 02/19/19 14:34 RM (Rec: 02/19/19 14:34 RM [id number]) Nutrition Notes Need for Assessment generated from: LOS Initial or Follow up Brief Note Height 5 ft 3 in Weight 110.03 kg [place] Body Weight (kg) 52.27 BMI 43.0 Subjective/Other Information Screened for LOS. PO intake 85% X 2 days. Nutrition Intervention Revisit per MD consult or patient Sign Off request:
--- NOTE | 2019-03-06 09:52 | Progress Note ---
Assessment and Plan Cont supportive measures, vasopressor support. Overall poor prognosis. - Patient Problems (1) GERALDINE (acute kidney injury) Current Visit: Yes Status: Acute (2) Acute HFrEF (heart failure with reduced ejection fraction) Current Visit: Yes Status: Acute (3) Acute renal injury Current Visit: Yes Status: Acute (4) Altered mental state Current Visit: Yes Status: Acute (5) Anemia Current Visit: Yes Status: Acute Qualifiers: Anemia type: unspecified type Qualified Code(s): D64.9 - Anemia, unspecified (6) CVA (cerebral vascular accident) Current Visit: Yes Status: Acute (7) Cardiomyopathy Current Visit: Yes Status: Acute Qualifiers: Cardiomyopathy type: unspecified Qualified Code(s): I42.9 - Cardiomyopathy, unspecified (8) Cardiopulmonary arrest with successful resuscitation Current Visit: Yes Status: Acute (9) DVT prophylaxis Current Visit: Yes Status: Acute (10) Elevated LFTs Current Visit: Yes Status: Acute (11) Encephalopathy acute Current Visit: Yes Status: Acute (12) Hepatic dysfunction Current Visit: Yes Status: Acute (13) Hyperglycemia due to type 2 diabetes mellitus Current Visit: Yes Status: Acute Qualifiers: Diabetes mellitus fdc insulin use: unspecified 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 Qualified Code(s): E11.65 - Type 2 diabetes mellitus with hyperglycemia (14) Rhabdomyolysis Current Visit: Yes Status: Acute Qualifiers: Rhabdomyolysis type: non-traumatic Qualified Code(s): M62.82 - Rhabdomyolysis (15) Severe anemia Current Visit: Yes Status: Acute (16) Peripheral vascular disease Current Visit: Yes Status: Chronic (17) Arterial occlusion, lower extremity Current Visit: No Status: Acute Subjective Date of service: 03/06/19 Principal diagnosis: anemia Interval history: no changes overnight per rn Objective Vital Signs Temp Pulse Pulse Pulse Resp Resp BP 03/06/19 09:45 106 H 30 H 90/47 03/06/19 09:30 96 H 87 18 29 H 75/34 03/06/19 09:15 118 H 19 117/62 03/06/19 09:09 120 H 22 03/06/19 09:00 120 H 19 125/66 03/06/19 08:45 123 H 23 129/68 03/06/19 08:30 121 H 20 139/72 03/06/19 08:15 121 H 20 139/69 03/06/19 08:00 99.5 F 121 H 19 140/74 03/06/19 07:45 120 H 25 H 146/73 03/06/19 07:30 119 H 20 145/74 03/06/19 07:15 117 H 19 144/72 03/06/19 07:00 117 H 20 141/71 03/06/19 06:45 117 H 20 141/71 03/06/19 06:30 117 H 20 142/71 03/06/19 06:15 116 H 23 139/68 03/06/19 06:00 116 H 18 138/68 03/06/19 05:45 115 H 20 136/67 03/06/19 05:30 115 H 20 134/64 03/06/19 05:15 116 H 20 132/66 03/06/19 05:00 118 H 20 134/64 03/06/19 04:45 116 H 17 129/66 03/06/19 04:30 108 H 20 130/59 03/06/19 04:15 109 H 20 131/64 03/06/19 04:00 100.6 F H 109 H 102 H 19 126/60 03/06/19 03:53 111 H 124/61 03/06/19 03:45 109 H 19 114/63 03/06/19 03:30 108 H 20 124/61 03/06/19 03:15 107 H 24 118/60 03/06/19 03:00 107 H 15 117/60 03/06/19 02:45 109 H 25 H 128/65 03/06/19 02:30 109 H 21 128/64 03/06/19 02:15 109 H 22 129/67 03/06/19 02:06 111 H 24 03/06/19 02:00 110 H 25 H 133/65 03/06/19 01:51 109 H 24 03/06/19 01:45 109 H 23 126/66 03/06/19 01:30 108 H 24 127/64 03/06/19 01:15 108 H 24 128/64 03/06/19 01:00 108 H 24 127/64 03/06/19 00:45 108 H 22 126/64 03/06/19 00:30 109 H 26 H 125/66 03/06/19 00:15 108 H 21 127/64 03/06/19 00:00 100.1 F H 108 H 24 126/67 03/05/19 23:45 107 H 23 121/65 03/05/19 23:32 106 H 119/64 03/05/19 23:30 107 H 21 125/64 03/05/19 23:26 105 H 03/05/19 23:24 107 H 104 H 21 119/64 03/05/19 23:18 104 H 18 03/05/19 23:15 106 H 22 119/64 03/05/19 23:00 106 H 19 118/63 03/05/19 22:45 105 H 20 117/61 03/05/19 22:30 105 H 20 117/61 03/05/19 22:15 105 H 20 114/60 03/05/19 22:00 105 H 22 114/60 03/05/19 21:45 104 H 20 114/59 03/05/19 21:30 105 H 20 110/62 03/05/19 21:15 105 H 22 112/58 03/05/19 21:00 104 H 21 111/58 03/05/19 20:45 105 H 20 107/59 03/05/19 20:30 105 H 20 109/55 03/05/19 20:15 104 H 19 107/57 03/05/19 20:00 99.6 F 105 H 104 H 20 106/56 03/05/19 19:45 104 H 107 H 20 22 104/61 03/05/19 19:30 106 H 105 H 17 22 132/53 03/05/19 19:22 105 H 119/60 03/05/19 19:15 105 H 19 119/60 03/05/19 19:00 104 H 20 114/60 03/05/19 18:45 105 H 19 116/59 03/05/19 18:30 104 H 20 112/60 03/05/19 18:15 104 H 20 114/59 03/05/19 18:00 104 H 27 H 114/61 03/05/19 17:45 103 H 20 111/60 03/05/19 17:43 103 H 113/59 03/05/19 17:30 104 H 19 114/58 03/05/19 17:15 104 H 20 113/59 03/05/19 17:00 103 H 20 108/56 03/05/19 16:45 105 H 20 110/56 03/05/19 16:30 103 H 22 110/57 03/05/19 16:15 103 H 20 110/55 03/05/19 16:00 100.1 F H 103 H 104 H 20 108/59 03/05/19 15:45 102 H 102 H 23 21 106/54 03/05/19 15:35 101 H 100 H 20 106/54 03/05/19 15:30 101 H 20 106/54 03/05/19 15:15 100 H 21 106/58 03/05/19 15:00 100 H 20 106/56 03/05/19 14:45 100 H 21 110/54 03/05/19 14:30 100 H 20 106/59 03/05/19 14:15 100 H 19 108/55 03/05/19 14:00 99 H 20 108/54 03/05/19 13:45 100 H 20 107/56 03/05/19 13:30 99 H 20 105/56 03/05/19 13:15 100 H 22 104/55 03/05/19 13:00 101 H 20 109/55 03/05/19 12:45 99 H 20 110/56 03/05/19 12:39 101 H 111/58 03/05/19 12:30 101 H 19 111/58 03/05/19 12:15 100 H 18 113/55 03/05/19 12:00 99.3 F 100 H 104 H 22 108/55 03/05/19 11:45 100 H 18 109/57 03/05/19 11:30 101 H 18 106/53 03/05/19 11:15 104 H 18 106/62 03/05/19 11:00 103 H 19 114/56 03/05/19 10:45 104 H 22 114/58 03/05/19 10:31 108 H 22 129/63 03/05/19 10:15 104 H 20 113/58 03/05/19 10:00 104 H 20 114/57 Pulse Ox 03/06/19 09:45 96 03/06/19 09:30 100 03/06/19 09:15 98 03/06/19 09:09 03/06/19 09:00 98 03/06/19 08:45 98 03/06/19 08:30 98 03/06/19 08:15 98 03/06/19 08:00 98 03/06/19 07:45 98 03/06/19 07:30 98 03/06/19 07:15 98 03/06/19 07:00 98 03/06/19 06:45 98 03/06/19 06:30 98 03/06/19 06:15 98 03/06/19 06:00 98 03/06/19 05:45 98 03/06/19 05:30 98 03/06/19 05:15 97 03/06/19 05:00 97 03/06/19 04:45 97 03/06/19 04:30 97 03/06/19 04:15 97 03/06/19 04:00 97 03/06/19 03:53 97 03/06/19 03:45 97 03/06/19 03:30 97 03/06/19 03:15 97 03/06/19 03:00 97 03/06/19 02:45 97 03/06/19 02:30 100 03/06/19 02:15 100 03/06/19 02:06 03/06/19 02:00 100 03/06/19 01:51 03/06/19 01:45 98 03/06/19 01:30 98 03/06/19 01:15 98 03/06/19 01:00 98 03/06/19 00:45 97 03/06/19 00:30 97 03/06/19 00:15 97 03/06/19 00:00 98 03/05/19 23:45 98 03/05/19 23:32 98 03/05/19 23:30 98 03/05/19 23:26 03/05/19 23:24 98 03/05/19 23:18 100 03/05/19 23:15 98 03/05/19 23:00 97 03/05/19 22:45 97 03/05/19 22:30 98 03/05/19 22:15 98 03/05/19 22:00 98 03/05/19 21:45 98 03/05/19 21:30 98 03/05/19 21:15 97 03/05/19 21:00 97 03/05/19 20:45 98 03/05/19 20:30 97 03/05/19 20:15 97 03/05/19 20:00 97 03/05/19 19:45 100 03/05/19 19:30 100 03/05/19 19:22 98 03/05/19 19:15 97 03/05/19 19:00 97 03/05/19 18:45 97 03/05/19 18:30 97 03/05/19 18:15 97 03/05/19 18:00 97 03/05/19 17:45 98 03/05/19 17:43 20 L 03/05/19 17:30 97 03/05/19 17:15 97 03/05/19 17:00 97 03/05/19 16:45 97 03/05/19 16:30 97 03/05/19 16:15 97 03/05/19 16:00 97 03/05/19 15:45 99 03/05/19 15:35 97 03/05/19 15:30 97 03/05/19 15:15 97 03/05/19 15:00 97 03/05/19 14:45 97 03/05/19 14:30 97 03/05/19 14:15 97 03/05/19 14:00 97 03/05/19 13:45 97 03/05/19 13:30 96 03/05/19 13:15 97 03/05/19 13:00 97 03/05/19 12:45 97 03/05/19 12:39 97 03/05/19 12:30 98 03/05/19 12:15 98 03/05/19 12:00 98 03/05/19 11:45 98 03/05/19 11:30 98 03/05/19 11:15 98 03/05/19 11:00 97 03/05/19 10:45 98 03/05/19 10:31 97 03/05/19 10:15 97 03/05/19 10:00 98 - Physical Examination General: Other (intubated, nonresponsive) Neuro: Positive: Other (intubated, nonresponsive) Skin: Positive: Other (RLE gangrene). Negative: Rash Extremities: Present: +2 Edema (RLE > LLE) - Labs and Meds CBC 03/06/19 Range/Units 04:30 Hgb 8.8 L (10.1-14.3) gm/dl Hct 27.7 L (30.3-42.9) % Plt Count 96 L (140-440) K/mm3 Comprehensive Metabolic Panel 03/05/19 Range/Units 10:34 Sodium 138 (137-145) mmol/L Potassium 5.6 H (3.6-5.0) mmol/L Chloride 101.8 (98-107) mmol/L Carbon Dioxide 21 L (22-30) mmol/L BUN 51 H (7-17) mg/dL Creatinine 5.6 H (0.7-1.2) mg/dL Glucose 285 H (65-100) mg/dL Calcium 7.3 L (8.4-10.2) mg/dL - Imaging and Cardiology EKG: report reviewed, image reviewed Echo: report reviewed (03/01/2019: EF 25-30%, apical septal and apical lateral wall segments are akinetic. 02/14/2019 showed EF 55-60%, mild LVH, mild with peak gradient 24 and mean 11, mild AR. ) - EKG Sinus rhythms and dysrhythmias: sinus rhythm - Allied health notes Allied health notes reviewed: nursing
[2019-03-06] MEDS: LANTUS SUB-Q SCH (09:54)
[2019-03-06] MEDS: MAXIPIME/NS 2 GM/100 ML 2 GM/100 ML BAG IV SCH (10:40)
[2019-03-06] MEDS: PROTONIX IV SCH ×2 (10:50→22:00)
[2019-03-06] MEDS: ASPIRIN PO SCH (10:55)
--- NOTE | 2019-03-06 11:03 | Progress Note ---
Assessment and Plan Impression: Shock , on pressors MSOF Acute bilateral cerebellar stroke. Dismal scenario with abscent brain stem reflexes,poor brain perfusion scan. NO neurologic improvement or clinical course change. See neurology evaluation Acute respiratory failure, mechanical ventilation support. Adequate ABGs NSTEMI with low EF Uncontrolled blood sugar. Improved Pulmonary edema versus acute lung injury. Improved. Suspected aspiration GERALDINE. Still poor output, hyperkalemic. See nephrology recommendations Severe metabolic acidosis, lactic. Improved Sepsis source unknown. Previously with UTI. Completed antibiotics per ID Hyperkalemia. See f/u labs EKOS /arterial Thrombolysis to RLE for RLE ischemia, and R leg 4 compartment fasciotomy Recommendations Poor prognosis at this point with little hope of significant neurological r ecovery. We'll continue current ventilatory support Adjust sliding scale insulin, monitor Monitor hyperkalemia, might consider Kayexalate at this point, moving to more conservative treatment. She also nephrology comments Wean pressors as tolerated No family available at the bedside. Recommend primary to discuss comfort care, DO NOT RESUSCITATE CODE STATUS, with family Critical care time was 31 minutes of [id number] evaluation and coordination of care Subjective Date of service: 03/06/19 Principal diagnosis: anemia Interval history: Intubated and nonresponsive Objective Vital Signs - 12hr 03/05/19 03/05/19 03/05/19 23:00 23:15 23:18 Temperature Pulse Rate 106 H 106 H Pulse Rate [ Anterior Bilateral Throughout] Pulse Rate [ 104 H Left Posterior Tibial] Respiratory 19 22 18 Rate Respiratory Rate [Anterior Bilateral Throughout] Blood Pressure 118/63 119/64 O2 Sat by Pulse 97 98 100 Oximetry 03/05/19 03/05/19 03/05/19 23:24 23:26 23:30 Temperature Pulse Rate 107 H 105 H 107 H Pulse Rate [ Anterior Bilateral Throughout] Pulse Rate [ 104 H Left Posterior Tibial] Respiratory 21 21 Rate Respiratory Rate [Anterior Bilateral Throughout] Blood Pressure 119/64 125/64 O2 Sat by Pulse 98 98 Oximetry 03/05/19 03/05/19 03/06/19 23:32 23:45 00:00 Temperature 100.1 F H Pulse Rate 106 H 107 H 108 H Pulse Rate [ Anterior Bilateral Throughout] Pulse Rate [ Left Posterior Tibial] Respiratory 23 24 Rate Respiratory Rate [Anterior Bilateral Throughout] Blood Pressure 119/64 121/65 126/67 O2 Sat by Pulse 98 98 98 Oximetry 03/06/19 03/06/19 03/06/19 00:15 00:30 00:45 Temperature Pulse Rate 108 H 109 H 108 H Pulse Rate [ Anterior Bilateral Throughout] Pulse Rate [ Left Posterior Tibial] Respiratory 21 26 H 22 Rate Respiratory Rate [Anterior Bilateral Throughout] Blood Pressure 127/64 125/66 126/64 O2 Sat by Pulse 97 97 97 Oximetry 03/06/19 03/06/19 03/06/19 01:00 01:15 01:30 Temperature Pulse Rate 108 H 108 H 108 H Pulse Rate [ Anterior Bilateral Throughout] Pulse Rate [ Left Posterior Tibial] Respiratory 24 24 24 Rate Respiratory Rate [Anterior Bilateral Throughout] Blood Pressure 127/64 128/64 127/64 O2 Sat by Pulse 98 98 98 Oximetry 03/06/19 03/06/19 03/06/19 01:45 01:51 02:00 Temperature Pulse Rate 109 H 110 H Pulse Rate [ 109 H Anterior Bilateral Throughout] Pulse Rate [ Left Posterior Tibial] Respiratory 23 25 H Rate Respiratory 24 Rate [Anterior Bilateral Throughout] Blood Pressure 126/66 133/65 O2 Sat by Pulse 98 100 Oximetry 03/06/19 03/06/19 03/06/19 02:06 02:15 02:30 Temperature Pulse Rate 109 H 109 H Pulse Rate [ 111 H Anterior Bilateral Throughout] Pulse Rate [ Left Posterior Tibial] Respiratory 22 21 Rate Respiratory 24 Rate [Anterior Bilateral Throughout] Blood Pressure 129/67 128/64 O2 Sat by Pulse 100 100 Oximetry 03/06/19 03/06/19 03/06/19 02:45 03:00 03:15 Temperature Pulse Rate 109 H 107 H 107 H Pulse Rate [ Anterior Bilateral Throughout] Pulse Rate [ Left Posterior Tibial] Respiratory 25 H 15 24 Rate Respiratory Rate [Anterior Bilateral Throughout] Blood Pressure 128/65 117/60 118/60 O2 Sat by Pulse 97 97 97 Oximetry 03/06/19 03/06/19 03/06/19 03:30 03:45 03:53 Temperature Pulse Rate 108 H 109 H 111 H Pulse Rate [ Anterior Bilateral Throughout] Pulse Rate [ Left Posterior Tibial] Respiratory 20 19 Rate Respiratory Rate [Anterior Bilateral Throughout] Blood Pressure 124/61 114/63 124/61 O2 Sat by Pulse 97 97 97 Oximetry 03/06/19 03/06/19 03/06/19 04:00 04:15 04:30 Temperature 100.6 F H Pulse Rate 109 H 109 H 108 H Pulse Rate [ Anterior Bilateral Throughout] Pulse Rate [ 102 H Left Posterior Tibial] Respiratory 19 20 20 Rate Respiratory Rate [Anterior Bilateral Throughout] Blood Pressure 126/60 131/64 130/59 O2 Sat by Pulse 97 97 97 Oximetry 03/06/19 03/06/19 03/06/19 04:45 05:00 05:15 Temperature Pulse Rate 116 H 118 H 116 H Pulse Rate [ Anterior Bilateral Throughout] Pulse Rate [ Left Posterior Tibial] Respiratory 17 20 20 Rate Respiratory Rate [Anterior Bilateral Throughout] Blood Pressure 129/66 134/64 132/66 O2 Sat by Pulse 97 97 97 Oximetry 03/06/19 03/06/19 03/06/19 05:30 05:45 06:00 Temperature Pulse Rate 115 H 115 H 116 H Pulse Rate [ Anterior Bilateral Throughout] Pulse Rate [ Left Posterior Tibial] Respiratory 20 20 18 Rate Respiratory Rate [Anterior Bilateral Throughout] Blood Pressure 134/64 136/67 138/68 O2 Sat by Pulse 98 98 98 Oximetry 03/06/19 03/06/19 03/06/19 06:15 06:30 06:45 Temperature Pulse Rate 116 H 117 H 117 H Pulse Rate [ Anterior Bilateral Throughout] Pulse Rate [ Left Posterior Tibial] Respiratory 23 20 20 Rate Respiratory Rate [Anterior Bilateral Throughout] Blood Pressure 139/68 142/71 141/71 O2 Sat by Pulse 98 98 98 Oximetry 03/06/19 03/06/19 03/06/19 07:00 07:15 07:30 Temperature Pulse Rate 117 H 117 H 119 H Pulse Rate [ Anterior Bilateral Throughout] Pulse Rate [ Left Posterior Tibial] Respiratory 20 19 20 Rate Respiratory Rate [Anterior Bilateral Throughout] Blood Pressure 141/71 144/72 145/74 O2 Sat by Pulse 98 98 98 Oximetry 03/06/19 03/06/19 03/06/19 07:45 08:00 08:15 Temperature 99.5 F Pulse Rate 120 H 121 H 121 H Pulse Rate [ Anterior Bilateral Throughout] Pulse Rate [ 98 H Left Posterior Tibial] Respiratory 25 H 19 20 Rate Respiratory Rate [Anterior Bilateral Throughout] Blood Pressure 146/73 140/74 139/69 O2 Sat by Pulse 98 98 98 Oximetry 03/06/19 03/06/19 03/06/19 08:30 08:45 09:00 Temperature Pulse Rate 121 H 123 H 120 H Pulse Rate [ Anterior Bilateral Throughout] Pulse Rate [ Left Posterior Tibial] Respiratory 20 23 19 Rate Respiratory Rate [Anterior Bilateral Throughout] Blood Pressure 139/72 129/68 125/66 O2 Sat by Pulse 98 98 98 Oximetry 03/06/19 03/06/19 03/06/19 09:09 09:15 09:30 Temperature Pulse Rate 118 H 96 H Pulse Rate [ 120 H 87 Anterior Bilateral Throughout] Pulse Rate [ Left Posterior Tibial] Respiratory 19 18 Rate Respiratory 22 29 H Rate [Anterior Bilateral Throughout] Blood Pressure 117/62 75/34 O2 Sat by Pulse 98 100 Oximetry 03/06/19 03/06/19 09:45 10:00 Temperature Pulse Rate 106 H 122 H Pulse Rate [ Anterior Bilateral Throughout] Pulse Rate [ Left Posterior Tibial] Respiratory 30 H 30 H Rate Respiratory Rate [Anterior Bilateral Throughout] Blood Pressure 90/47 112/64 O2 Sat by Pulse 96 96 Oximetry Constitutional: comatose Eyes: non-icteric, other (pupils equal mostly dilated ,no corneals, + conjunctival swelling) ENT: other (ETT in position) Neck: supple, no JVD (broad neck) Ascultation: Bilateral: clear, diminished breath sounds Cardiovascular: regular rate and rhythm Gastrointestinal: normoactive bowel sounds, non-distended Extremities: other (right lower extremity bandage in place, ) Neurologic: other (non reactive, ) CBC and BMP: 03/06/19 04:30 03/05/19 10:34 ABG, PT/INR, D-dimer: ABG POC ABG pH 7.332 (7.35-7.45) L 03/06/19 03:53 POC ABG pCO2 35.0 (35-45) 03/06/19 03:53 POC ABG pO2 83 (80-105) 03/06/19 03:53 POC ABG HCO3 18.5 (22-26 mml/L) 03/06/19 03:53 POC ABG Total CO2 20 (23-27mmol/L) 03/06/19 03:53 POC ABG O2 Sat 96 03/06/19 03:53 PT/INR, D-dimer PT 15.5 Sec. (12.2-14.9) H 02/28/19 18:33 INR 1.16 (0.87-1.13) H 02/28/19 18:33 D-Dimer > 88483 ng/mlDDU (0-234) H 03/03/19 13:38 Abnormal lab findings: Abnormal Labs 02/13/19 02/13/19 02/13/19 13:55 14:08 14:08 WBC 21.3 H RBC 3.00 L Hgb 8.5 L Hct 26.7 L MCHC RDW 16.4 H Plt Count 528 H Seg Neuts % (Manual) 89.0 H Lymphocytes % (Manual) 4.0 L Monocytes % (Manual) Nucleated RBC % 2.0 H Seg Neutrophils # Man 19.0 H Lymphocytes # (Manual) 0.9 L Monocytes # (Manual) PT INR D-Dimer POC ABG pH POC ABG pCO2 POC ABG pO2 Sodium 129 L Potassium 5.4 H Chloride 91.8 L Carbon Dioxide 17 L BUN 52 H Creatinine 2.5 H Glucose 402 H POC Glucose 389 H Hemoglobin A1c Lactic Acid Calcium Magnesium Total Bilirubin 1.50 H Direct Bilirubin 1.1 H AST 61 H ALT Alkaline Phosphatase 271 H Total Creatine Kinase CK-MB (CK-2) Troponin T NT-Pro-B Natriuret Pep Total Protein Albumin 2.3 L Triglycerides LDL Cholesterol Direct HDL Cholesterol Urine WBC (Auto) Crossmatch 02/13/19 02/13/19 02/13/19 14:15 14:15 14:20 WBC RBC Hgb Hct MCHC RDW Plt Count Seg Neuts % (Manual) Lymphocytes % (Manual) Monocytes % (Manual) Nucleated RBC % Seg Neutrophils # Man Lymphocytes # (Manual) Monocytes # (Manual) PT 15.6 H INR 1.17 H D-Dimer POC ABG pH POC ABG pCO2 POC ABG pO2 Sodium Potassium Chloride Carbon Dioxide BUN Creatinine Glucose POC Glucose Hemoglobin A1c Lactic Acid Calcium Magnesium 1.60 L Total Bilirubin Direct Bilirubin AST ALT Alkaline Phosphatase Total Creatine Kinase 1295 H CK-MB (CK-2) Troponin T 0.072 H NT-Pro-B Natriuret Pep 6167 H Total Protein Albumin Triglycerides 329 H LDL Cholesterol Direct 36 L HDL Cholesterol 17 L Urine WBC (Auto) Crossmatch 02/13/19 02/13/19 02/13/19 15:36 18:15 20:59 WBC RBC Hgb Hct MCHC RDW Plt Count Seg Neuts % (Manual) Lymphocytes % (Manual) Monocytes % (Manual) Nucleated RBC % Seg Neutrophils # Man Lymphocytes # (Manual) Monocytes # (Manual) PT INR D-Dimer POC ABG pH POC ABG pCO2 POC ABG pO2 Sodium Potassium Chloride Carbon Dioxide BUN Creatinine Glucose POC Glucose 293 H 390 H Hemoglobin A1c 9.2 H Lactic Acid Calcium Magnesium Total Bilirubin Direct Bilirubin AST ALT Alkaline Phosphatase Total Creatine Kinase CK-MB (CK-2) Troponin T NT-Pro-B Natriuret Pep Total Protein Albumin Triglycerides LDL Cholesterol Direct HDL Cholesterol Urine WBC (Auto) Crossmatch 02/14/19 02/14/19 02/14/19 07:45 08:15 08:15 WBC 23.2 H RBC 2.89 L Hgb 8.3 L Hct 25.3 L MCHC RDW 16.6 H Plt Count 457 H Seg Neuts % (Manual) 91.0 H Lymphocytes % (Manual) 3.0 L Monocytes % (Manual) Nucleated RBC % Seg Neutrophils # Man 21.1 H Lymphocytes # (Manual) 0.7 L Monocytes # (Manual) 1.2 H PT INR D-Dimer POC ABG pH POC ABG pCO2 POC ABG pO2 Sodium 126 L Potassium 5.3 H Chloride 91.5 L Carbon Dioxide 17 L BUN 65 H Creatinine 2.4 H Glucose 418 H POC Glucose Hemoglobin A1c Lactic Acid Calcium 8.2 L Magnesium 2.90 H Total Bilirubin 1.60 H Direct Bilirubin AST 47 H ALT Alkaline Phosphatase 218 H Total Creatine Kinase CK-MB (CK-2) Troponin T NT-Pro-B Natriuret Pep Total Protein 6.2 L Albumin 2.2 L Triglycerides LDL Cholesterol Direct HDL Cholesterol Urine WBC (Auto) Crossmatch 02/14/19 02/14/19 02/14/19 09:07 09:30 18:53 WBC RBC Hgb Hct MCHC RDW Plt Count Seg Neuts % (Manual) Lymphocytes % (Manual) Monocytes % (Manual) Nucleated RBC % Seg Neutrophils # Man Lymphocytes # (Manual) Monocytes # (Manual) PT INR D-Dimer POC ABG pH POC ABG pCO2 POC ABG pO2 Sodium Potassium Chloride Carbon Dioxide BUN Creatinine Glucose POC Glucose 384 H 353 H Hemoglobin A1c Lactic Acid Calcium Magnesium Total Bilirubin Direct Bilirubin AST ALT Alkaline Phosphatase Total Creatine Kinase CK-MB (CK-2) Troponin T NT-Pro-B Natriuret Pep Total Protein Albumin Triglycerides LDL Cholesterol Direct HDL Cholesterol Urine WBC (Auto) > 182.0 H Crossmatch 02/14/19 02/14/19 02/15/19 21:33 21:40 01:45 WBC RBC Hgb Hct MCHC RDW Plt Count Seg Neuts % (Manual) Lymphocytes % (Manual) Monocytes % (Manual) Nucleated RBC % Seg Neutrophils # Man Lymphocytes # (Manual) Monocytes # (Manual) PT INR D-Dimer POC ABG pH POC ABG pCO2 POC ABG pO2 Sodium Potassium Chloride Carbon Dioxide BUN Creatinine Glucose POC Glucose 404 H 360 H 299 H Hemoglobin A1c Lactic Acid Calcium Magnesium Total Bilirubin Direct Bilirubin AST ALT Alkaline Phosphatase Total Creatine Kinase CK-MB (CK-2) Troponin T NT-Pro-B Natriuret Pep Total Protein Albumin Triglycerides LDL Cholesterol Direct HDL Cholesterol Urine WBC (Auto) Crossmatch 02/15/19 02/15/19 02/15/19 05:32 05:38 11:35 WBC RBC Hgb Hct MCHC RDW Plt Count Seg Neuts % (Manual) Lymphocytes % (Manual) Monocytes % (Manual) Nucleated RBC % Seg Neutrophils # Man Lymphocytes # (Manual) Monocytes # (Manual) PT INR D-Dimer POC ABG pH POC ABG pCO2 POC ABG pO2 Sodium Potassium Chloride Carbon Dioxide BUN Creatinine Glucose POC Glucose 402 H 393 H Hemoglobin A1c Lactic Acid Calcium Magnesium 2.80 H Total Bilirubin Direct Bilirubin AST ALT Alkaline Phosphatase Total Creatine Kinase 448 H CK-MB (CK-2) Troponin T NT-Pro-B Natriuret Pep Total Protein Albumin Triglycerides LDL Cholesterol Direct HDL Cholesterol Urine WBC (Auto) Crossmatch 02/15/19 02/15/19 02/15/19 14:15 14:48 17:21 WBC RBC Hgb Hct MCHC RDW Plt Count Seg Neuts % (Manual) Lymphocytes % (Manual) Monocytes % (Manual) Nucleated RBC % Seg Neutrophils # Man Lymphocytes # (Manual) Monocytes # (Manual) PT INR D-Dimer POC ABG pH POC ABG pCO2 POC ABG pO2 Sodium 128 L Potassium Chloride 92.4 L Carbon Dioxide 21 L BUN 86 H Creatinine 1.9 H Glucose 436 H POC Glucose 386 H 347 H Hemoglobin A1c Lactic Acid Calcium 8.1 L Magnesium Total Bilirubin Direct Bilirubin AST ALT Alkaline Phosphatase Total Creatine Kinase CK-MB (CK-2) Troponin T NT-Pro-B Natriuret Pep Total Protein Albumin Triglycerides LDL Cholesterol Direct HDL Cholesterol Urine WBC (Auto) Crossmatch 02/15/19 02/15/19 02/16/19 22:32 23:51 04:08 WBC RBC Hgb Hct MCHC RDW Plt Count Seg Neuts % (Manual) Lymphocytes % (Manual) Monocytes % (Manual) Nucleated RBC % Seg Neutrophils # Man Lymphocytes # (Manual) Monocytes # (Manual) PT INR D-Dimer POC ABG pH POC ABG pCO2 POC ABG pO2 Sodium Potassium Chloride Carbon Dioxide BUN Creatinine Glucose POC Glucose 272 H 244 H 253 H Hemoglobin A1c Lactic Acid Calcium Magnesium Total Bilirubin Direct Bilirubin AST ALT Alkaline Phosphatase Total Creatine Kinase CK-MB (CK-2) Troponin T NT-Pro-B Natriuret Pep Total Protein Albumin Triglycerides LDL Cholesterol Direct HDL Cholesterol Urine WBC (Auto) Crossmatch 02/16/19 02/16/19 02/16/19 05:29 08:52 11:55 WBC RBC Hgb Hct MCHC RDW Plt Count Seg Neuts % (Manual) Lymphocytes % (Manual) Monocytes % (Manual) Nucleated RBC % Seg Neutrophils # Man Lymphocytes # (Manual) Monocytes # (Manual) PT INR D-Dimer POC ABG pH POC ABG pCO2 POC ABG pO2 Sodium Potassium Chloride Carbon Dioxide BUN Creatinine Glucose POC Glucose 262 H 313 H Hemoglobin A1c Lactic Acid Calcium Magnesium Total Bilirubin Direct Bilirubin AST ALT Alkaline Phosphatase Total Creatine Kinase 200 H CK-MB (CK-2) Troponin T NT-Pro-B Natriuret Pep Total Protein Albumin Triglycerides LDL Cholesterol Direct HDL Cholesterol Urine WBC (Auto) Crossmatch 02/16/19 02/16/19 02/17/19 16:20 22:38 00:15 WBC RBC Hgb Hct MCHC RDW Plt Count Seg Neuts % (Manual) Lymphocytes % (Manual) Monocytes % (Manual) Nucleated RBC % Seg Neutrophils # Man Lymphocytes # (Manual) Monocytes # (Manual) PT INR D-Dimer POC ABG pH POC ABG pCO2 POC ABG pO2 Sodium 131 L Potassium Chloride 95.7 L Carbon Dioxide 21 L BUN 70 H Creatinine 1.3 H Glucose 121 H POC Glucose 146 H 125 H Hemoglobin A1c Lactic Acid Calcium 8.0 L Magnesium Total Bilirubin Direct Bilirubin AST ALT Alkaline Phosphatase Total Creatine Kinase CK-MB (CK-2) Troponin T NT-Pro-B Natriuret Pep Total Protein Albumin Triglycerides LDL Cholesterol Direct HDL Cholesterol Urine WBC (Auto) Crossmatch 02/17/19 02/17/19 02/17/19 03:49 07:32 10:41 WBC 13.3 H RBC 2.92 L Hgb 8.2 L Hct 24.6 L MCHC RDW 16.2 H Plt Count Seg Neuts % (Manual) 85.0 H Lymphocytes % (Manual) 8.0 L Monocytes % (Manual) Nucleated RBC % Seg Neutrophils # Man 11.3 H Lymphocytes # (Manual) 1.1 L Monocytes # (Manual) PT INR D-Dimer POC ABG pH POC ABG pCO2 POC ABG pO2 Sodium 129 L Potassium 5.2 H D Chloride 95.9 L Carbon Dioxide 18 L BUN 69 H Creatinine 1.4 H Glucose POC Glucose 146 H Hemoglobin A1c Lactic Acid Calcium 8.1 L Magnesium Total Bilirubin Direct Bilirubin AST ALT Alkaline Phosphatase Total Creatine Kinase CK-MB (CK-2) Troponin T NT-Pro-B Natriuret Pep Total Protein Albumin Triglycerides LDL Cholesterol Direct HDL Cholesterol Urine WBC (Auto) Crossmatch 02/17/19 02/17/19 02/18/19 11:14 16:18 01:14 WBC 14.6 H RBC 2.53 L Hgb 7.1 L Hct 21.7 L MCHC RDW 16.6 H Plt Count Seg Neuts % (Manual) 72.0 H Lymphocytes % (Manual) 8.0 L Monocytes % (Manual) 11.0 H Nucleated RBC % Seg Neutrophils # Man 10.5 H Lymphocytes # (Manual) Monocytes # (Manual) 1.6 H PT INR D-Dimer POC ABG pH POC ABG pCO2 POC ABG pO2 Sodium Potassium Chloride Carbon Dioxide BUN Creatinine Glucose POC Glucose 219 H 176 H Hemoglobin A1c Lactic Acid Calcium Magnesium Total Bilirubin Direct Bilirubin AST ALT Alkaline Phosphatase Total Creatine Kinase CK-MB (CK-2) Troponin T NT-Pro-B Natriuret Pep Total Protein Albumin Triglycerides LDL Cholesterol Direct HDL Cholesterol Urine WBC (Auto) Crossmatch 02/18/19 02/18/19 02/18/19 04:25 11:35 11:57 WBC RBC Hgb Hct MCHC RDW Plt Count Seg Neuts % (Manual) Lymphocytes % (Manual) Monocytes % (Manual) Nucleated RBC % Seg Neutrophils # Man Lymphocytes # (Manual) Monocytes # (Manual) PT INR D-Dimer POC ABG pH POC ABG pCO2 POC ABG pO2 Sodium 130 L Potassium Chloride 94.7 L Carbon Dioxide BUN 53 H Creatinine Glucose POC Glucose 197 H Hemoglobin A1c Lactic Acid Calcium 7.8 L Magnesium Total Bilirubin Direct Bilirubin AST ALT Alkaline Phosphatase Total Creatine Kinase CK-MB (CK-2) Troponin T NT-Pro-B Natriuret Pep Total Protein Albumin Triglycerides LDL Cholesterol Direct HDL Cholesterol Urine WBC (Auto) Crossmatch See Detail 02/18/19 02/18/19 02/19/19 16:32 21:26 07:01 WBC RBC Hgb Hct MCHC RDW Plt Count Seg Neuts % (Manual) Lymphocytes % (Manual) Monocytes % (Manual) Nucleated RBC % Seg Neutrophils # Man Lymphocytes # (Manual) Monocytes # (Manual) PT INR D-Dimer POC ABG pH POC ABG pCO2 POC ABG pO2 Sodium 135 L Potassium Chloride Carbon Dioxide BUN 36 H Creatinine Glucose POC Glucose 108 H 107 H Hemoglobin A1c Lactic Acid Calcium 7.9 L Magnesium Total Bilirubin Direct Bilirubin AST ALT Alkaline Phosphatase Total Creatine Kinase CK-MB (CK-2) Troponin T NT-Pro-B Natriuret Pep Total Protein Albumin Triglycerides LDL Cholesterol Direct HDL Cholesterol Urine WBC (Auto) Crossmatch 02/19/19 02/19/19 02/19/19 11:11 13:46 15:19 WBC 12.0 H RBC 2.63 L Hgb 7.5 L Hct 23.3 L MCHC RDW 16.6 H Plt Count Seg Neuts % (Manual) 74.0 H Lymphocytes % (Manual) Monocytes % (Manual) Nucleated RBC % Seg Neutrophils # Man 8.9 H Lymphocytes # (Manual) Monocytes # (Manual) PT INR D-Dimer POC ABG pH POC ABG pCO2 POC ABG pO2 Sodium Potassium Chloride Carbon Dioxide BUN Creatinine Glucose POC Glucose 125 H 181 H Hemoglobin A1c Lactic Acid Calcium Magnesium Total Bilirubin Direct Bilirubin AST ALT Alkaline Phosphatase Total Creatine Kinase CK-MB (CK-2) Troponin T NT-Pro-B Natriuret Pep Total Protein Albumin Triglycerides LDL Cholesterol Direct HDL Cholesterol Urine WBC (Auto) Crossmatch 02/19/19 02/20/19 02/20/19 22:04 02:47 05:25 WBC RBC Hgb Hct MCHC RDW Plt Count Seg Neuts % (Manual) Lymphocytes % (Manual) Monocytes % (Manual) Nucleated RBC % Seg Neutrophils # Man Lymphocytes # (Manual) Monocytes # (Manual) PT INR D-Dimer POC ABG pH POC ABG pCO2 POC ABG pO2 Sodium Potassium Chloride Carbon Dioxide BUN Creatinine Glucose POC Glucose 298 H 136 H 106 H Hemoglobin A1c Lactic Acid Calcium Magnesium Total Bilirubin Direct Bilirubin AST ALT Alkaline Phosphatase Total Creatine Kinase CK-MB (CK-2) Troponin T NT-Pro-B Natriuret Pep Total Protein Albumin Triglycerides LDL Cholesterol Direct HDL Cholesterol Urine WBC (Auto) Crossmatch 02/20/19 02/20/19 02/20/19 06:07 07:55 12:17 WBC RBC Hgb Hct MCHC RDW Plt Count Seg Neuts % (Manual) Lymphocytes % (Manual) Monocytes % (Manual) Nucleated RBC % Seg Neutrophils # Man Lymphocytes # (Manual) Monocytes # (Manual) PT INR D-Dimer POC ABG pH POC ABG pCO2 POC ABG pO2 Sodium Potassium Chloride Carbon Dioxide BUN 23 H Creatinine Glucose 105 H POC Glucose 112 H 195 H Hemoglobin A1c Lactic Acid Calcium 7.4 L Magnesium Total Bilirubin Direct Bilirubin AST ALT Alkaline Phosphatase Total Creatine Kinase CK-MB (CK-2) Troponin T NT-Pro-B Natriuret Pep Total Protein Albumin Triglycerides LDL Cholesterol Direct HDL Cholesterol Urine WBC (Auto) Crossmatch 02/20/19 02/20/19 02/21/19 16:34 22:23 11:35 WBC RBC Hgb Hct MCHC RDW Plt Count Seg Neuts % (Manual) Lymphocytes % (Manual) Monocytes % (Manual) Nucleated RBC % Seg Neutrophils # Man Lymphocytes # (Manual) Monocytes # (Manual) PT INR D-Dimer POC ABG pH POC ABG pCO2 POC ABG pO2 Sodium Potassium Chloride Carbon Dioxide BUN Creatinine Glucose POC Glucose 117 H 153 H 142 H Hemoglobin A1c Lactic Acid Calcium Magnesium Total Bilirubin Direct Bilirubin AST ALT Alkaline Phosphatase Total Creatine Kinase CK-MB (CK-2) Troponin T NT-Pro-B Natriuret Pep Total Protein Albumin Triglycerides LDL Cholesterol Direct HDL Cholesterol Urine WBC (Auto) Crossmatch 02/21/19 02/21/19 02/21/19 11:38 17:12 19:19 WBC RBC Hgb Hct MCHC RDW Plt Count Seg Neuts % (Manual) Lymphocytes % (Manual) Monocytes % (Manual) Nucleated RBC % Seg Neutrophils # Man Lymphocytes # (Manual) Monocytes # (Manual) PT INR D-Dimer POC ABG pH POC ABG pCO2 POC ABG pO2 Sodium 135 L Potassium Chloride Carbon Dioxide 18 L BUN Creatinine Glucose 129 H POC Glucose 61 L 135 H Hemoglobin A1c Lactic Acid Calcium 7.4 L Magnesium Total Bilirubin Direct Bilirubin AST ALT Alkaline Phosphatase Total Creatine Kinase CK-MB (CK-2) Troponin T NT-Pro-B Natriuret Pep Total Protein Albumin Triglycerides LDL Cholesterol Direct HDL Cholesterol Urine WBC (Auto) Crossmatch 02/21/19 02/22/1902/22/19 21:24 04:18 04:49 WBC RBC Hgb Hct MCHC RDW Plt Count Seg Neuts % (Manual) Lymphocytes % (Manual) Monocytes % (Manual) Nucleated RBC % Seg Neutrophils # Man Lymphocytes # (Manual) Monocytes # (Manual) PT INR D-Dimer POC ABG pH 7.459 H POC ABG pCO2 POC ABG pO2 Sodium Potassium Chloride Carbon Dioxide BUN Creatinine Glucose POC Glucose 146 H 186 H Hemoglobin A1c Lactic Acid Calcium Magnesium Total Bilirubin Direct Bilirubin AST ALT Alkaline Phosphatase Total Creatine Kinase CK-MB (CK-2) Troponin T NT-Pro-B Natriuret Pep Total Protein Albumin Triglycerides LDL Cholesterol Direct HDL Cholesterol Urine WBC (Auto) Crossmatch 02/22/19 02/22/19 02/22/19 07:56 08:26 08:26 WBC RBC Hgb Hct MCHC RDW Plt Count Seg Neuts % (Manual) Lymphocytes % (Manual) Monocytes % (Manual) Nucleated RBC % Seg Neutrophils # Man Lymphocytes # (Manual) Monocytes # (Manual) PT INR D-Dimer 1481.17 H POC ABG pH POC ABG pCO2 POC ABG pO2 Sodium 133 L Potassium 5.3 H Chloride Carbon Dioxide 19 L BUN Creatinine Glucose 216 H POC Glucose 239 H Hemoglobin A1c Lactic Acid Calcium 7.7 L Magnesium Total Bilirubin Direct Bilirubin AST ALT Alkaline Phosphatase Total Creatine Kinase CK-MB (CK-2) Troponin T NT-Pro-B Natriuret Pep Total Protein Albumin Triglycerides LDL Cholesterol Direct HDL Cholesterol Urine WBC (Auto) Crossmatch 02/22/19 02/22/19 02/22/19 11:59 17:06 22:00 WBC RBC Hgb Hct MCHC RDW Plt Count Seg Neuts % (Manual) Lymphocytes % (Manual) Monocytes % (Manual) Nucleated RBC % Seg Neutrophils # Man Lymphocytes # (Manual) Monocytes # (Manual) PT INR D-Dimer POC ABG pH POC ABG pCO2 POC ABG pO2 Sodium Potassium Chloride Carbon Dioxide BUN Creatinine Glucose POC Glucose 238 H 61 L 174 H Hemoglobin A1c Lactic Acid Calcium Magnesium Total Bilirubin Direct Bilirubin AST ALT Alkaline Phosphatase Total Creatine Kinase CK-MB (CK-2) Troponin T NT-Pro-B Natriuret Pep Total Protein Albumin Triglycerides LDL Cholesterol Direct HDL Cholesterol Urine WBC (Auto) Crossmatch 02/23/19 02/23/19 02/23/19 06:12 07:50 21:43 WBC RBC Hgb Hct MCHC RDW Plt Count Seg Neuts % (Manual) Lymphocytes % (Manual) Monocytes % (Manual) Nucleated RBC % Seg Neutrophils # Man Lymphocytes # (Manual) Monocytes # (Manual) PT INR D-Dimer POC ABG pH POC ABG pCO2 POC ABG pO2 Sodium Potassium Chloride Carbon Dioxide 19 L BUN 18 H Creatinine Glucose 52 L POC Glucose 55 L 107 H Hemoglobin A1c Lactic Acid Calcium 8.3 L Magnesium Total Bilirubin Direct Bilirubin AST ALT Alkaline Phosphatase Total Creatine Kinase CK-MB (CK-2) Troponin T NT-Pro-B Natriuret Pep Total Protein Albumin Triglycerides LDL Cholesterol Direct HDL Cholesterol Urine WBC (Auto) Crossmatch 02/24/19 02/24/19 02/24/19 07:29 11:29 16:05 WBC RBC Hgb Hct MCHC RDW Plt Count Seg Neuts % (Manual) Lymphocytes % (Manual) Monocytes % (Manual) Nucleated RBC % Seg Neutrophils # Man Lymphocytes # (Manual) Monocytes # (Manual) PT INR D-Dimer POC ABG pH POC ABG pCO2 POC ABG pO2 Sodium Potassium Chloride Carbon Dioxide BUN Creatinine Glucose POC Glucose 176 H 253 H 179 H Hemoglobin A1c Lactic Acid Calcium Magnesium Total Bilirubin Direct Bilirubin AST ALT Alkaline Phosphatase Total Creatine Kinase CK-MB (CK-2) Troponin T NT-Pro-B Natriuret Pep Total Protein Albumin Triglycerides LDL Cholesterol Direct HDL Cholesterol Urine WBC (Auto) Crossmatch 02/24/19 02/25/19 02/25/19 21:50 07:57 11:54 WBC RBC Hgb Hct MCHC RDW Plt Count Seg Neuts % (Manual) Lymphocytes % (Manual) Monocytes % (Manual) Nucleated RBC % Seg Neutrophils # Man Lymphocytes # (Manual) Monocytes # (Manual) PT INR D-Dimer POC ABG pH POC ABG pCO2 POC ABG pO2 Sodium Potassium Chloride Carbon Dioxide BUN Creatinine Glucose POC Glucose 200 H 249 H 260 H Hemoglobin A1c Lactic Acid Calcium Magnesium Total Bilirubin Direct Bilirubin AST ALT Alkaline Phosphatase Total Creatine Kinase CK-MB (CK-2) Troponin T NT-Pro-B Natriuret Pep Total Protein Albumin Triglycerides LDL Cholesterol Direct HDL Cholesterol Urine WBC (Auto) Crossmatch 02/25/19 02/25/19 02/26/19 16:34 21:52 07:54 WBC RBC Hgb Hct MCHC RDW Plt Count Seg Neuts % (Manual) Lymphocytes % (Manual) Monocytes % (Manual) Nucleated RBC % Seg Neutrophils # Man Lymphocytes # (Manual) Monocytes # (Manual) PT INR D-Dimer POC ABG pH POC ABG pCO2 POC ABG pO2 Sodium Potassium Chloride Carbon Dioxide BUN Creatinine Glucose POC Glucose 198 H 254 H 213 H Hemoglobin A1c Lactic Acid Calcium Magnesium Total Bilirubin Direct Bilirubin AST ALT Alkaline Phosphatase Total Creatine Kinase CK-MB (CK-2) Troponin T NT-Pro-B Natriuret Pep Total Protein Albumin Triglycerides LDL Cholesterol Direct HDL Cholesterol Urine WBC (Auto) Crossmatch 02/26/19 02/26/19 02/26/19 11:49 16:00 22:00 WBC RBC Hgb Hct MCHC RDW Plt Count Seg Neuts % (Manual) Lymphocytes % (Manual) Monocytes % (Manual) Nucleated RBC % Seg Neutrophils # Man Lymphocytes # (Manual) Monocytes # (Manual) PT INR D-Dimer POC ABG pH POC ABG pCO2 POC ABG pO2 Sodium Potassium Chloride Carbon Dioxide BUN Creatinine Glucose POC Glucose 306 H 183 H 162 H Hemoglobin A1c Lactic Acid Calcium Magnesium Total Bilirubin Direct Bilirubin AST ALT Alkaline Phosphatase Total Creatine Kinase CK-MB (CK-2) Troponin T NT-Pro-B Natriuret Pep Total Protein Albumin Triglycerides LDL Cholesterol Direct HDL Cholesterol Urine WBC (Auto) Crossmatch 02/27/19 02/27/19 02/27/19 07:44 11:11 16:57 WBC RBC Hgb Hct MCHC RDW Plt Count Seg Neuts % (Manual) Lymphocytes % (Manual) Monocytes % (Manual) Nucleated RBC % Seg Neutrophils # Man Lymphocytes # (Manual) Monocytes # (Manual) PT INR D-Dimer POC ABG pH POC ABG pCO2 POC ABG pO2 Sodium Potassium Chloride Carbon Dioxide BUN Creatinine Glucose POC Glucose 171 H 217 H 199 H Hemoglobin A1c Lactic Acid Calcium Magnesium Total Bilirubin Direct Bilirubin AST ALT Alkaline Phosphatase Total Creatine Kinase CK-MB (CK-2) Troponin T NT-Pro-B Natriuret Pep Total Protein Albumin Triglycerides LDL Cholesterol Direct HDL Cholesterol Urine WBC (Auto) Crossmatch 02/27/19 02/28/19 02/28/19 21:48 07:36 11:41 WBC RBC Hgb Hct MCHC RDW Plt Count Seg Neuts % (Manual) Lymphocytes % (Manual) Monocytes % (Manual) Nucleated RBC % Seg Neutrophils # Man Lymphocytes # (Manual) Monocytes # (Manual) PT INR D-Dimer POC ABG pH POC ABG pCO2 POC ABG pO2 Sodium Potassium Chloride Carbon Dioxide BUN Creatinine Glucose POC Glucose 161 H 148 H 244 H Hemoglobin A1c Lactic Acid Calcium Magnesium Total Bilirubin Direct Bilirubin AST ALT Alkaline Phosphatase Total Creatine Kinase CK-MB (CK-2) Troponin T NT-Pro-B Natriuret Pep Total Protein Albumin Triglycerides LDL Cholesterol Direct HDL Cholesterol Urine WBC (Auto) Crossmatch 02/28/19 02/28/19 02/28/19 16:32 16:53 17:28 WBC RBC Hgb Hct MCHC RDW Plt Count Seg Neuts % (Manual) Lymphocytes % (Manual) Monocytes % (Manual) Nucleated RBC % Seg Neutrophils # Man Lymphocytes # (Manual) Monocytes # (Manual) PT INR D-Dimer POC ABG pH POC ABG pCO2 POC ABG pO2 53 L Sodium Potassium Chloride Carbon Dioxide BUN Creatinine Glucose POC Glucose 283 H Hemoglobin A1c Lactic Acid Calcium Magnesium Total Bilirubin Direct Bilirubin AST ALT Alkaline Phosphatase Total Creatine Kinase CK-MB (CK-2) Troponin T 0.119 H* NT-Pro-B Natriuret Pep Total Protein Albumin Triglycerides LDL Cholesterol Direct HDL Cholesterol Urine WBC (Auto) Crossmatch 02/28/19 02/28/19 02/28/19 18:33 18:33 18:33 WBC 11.5 H RBC 2.35 L Hgb 6.5 L Hct 21.2 L MCHC RDW 17.6 H Plt Count 631 H Seg Neuts % (Manual) 87.0 H Lymphocytes % (Manual) 9.0 L Monocytes % (Manual) Nucleated RBC % Seg Neutrophils # Man 10.0 H Lymphocytes # (Manual) 1.0 L Monocytes # (Manual) PT 15.5 H INR 1.16 H D-Dimer POC ABG pH POC ABG pCO2 POC ABG pO2 Sodium Potassium Chloride Carbon Dioxide BUN Creatinine Glucose POC Glucose Hemoglobin A1c Lactic Acid Calcium Magnesium Total Bilirubin Direct Bilirubin AST ALT Alkaline Phosphatase Total Creatine Kinase 165 H CK-MB (CK-2) 4.9 H Troponin T 0.123 H* NT-Pro-B Natriuret Pep Total Protein Albumin Triglycerides LDL Cholesterol Direct HDL Cholesterol Urine WBC (Auto) Crossmatch 02/28/19 02/28/19 02/28/19 18:33 19:55 21:39 WBC RBC Hgb Hct MCHC RDW Plt Count Seg Neuts % (Manual) Lymphocytes % (Manual) Monocytes % (Manual) Nucleated RBC % Seg Neutrophils # Man Lymphocytes # (Manual) Monocytes # (Manual) PT INR D-Dimer POC ABG pH 7.319 L POC ABG pCO2 POC ABG pO2 196 H Sodium 136 L Potassium 5.6 H Chloride Carbon Dioxide 14 L BUN 21 H Creatinine 1.4 H Glucose 274 H POC Glucose 277 H Hemoglobin A1c Lactic Acid Calcium 8.3 L Magnesium Total Bilirubin Direct Bilirubin AST ALT Alkaline Phosphatase 165 H Total Creatine Kinase CK-MB (CK-2) Troponin T NT-Pro-B Natriuret Pep Total Protein Albumin 2.7 L Triglycerides LDL Cholesterol Direct HDL Cholesterol Urine WBC (Auto) Crossmatch 02/28/19 02/28/19 02/28/19 22:46 22:47 22:59 WBC RBC Hgb Hct MCHC RDW Plt Count Seg Neuts % (Manual) Lymphocytes % (Manual) Monocytes % (Manual) Nucleated RBC % Seg Neutrophils # Man Lymphocytes # (Manual) Monocytes # (Manual) PT INR D-Dimer POC ABG pH 7.068 L POC ABG pCO2 34.7 L POC ABG pO2 280 H Sodium Potassium Chloride Carbon Dioxide BUN Creatinine Glucose POC Glucose Hemoglobin A1c Lactic Acid 16.50 H* Calcium Magnesium Total Bilirubin Direct Bilirubin AST ALT Alkaline Phosphatase Total Creatine Kinase CK-MB (CK-2) Troponin T 0.595 H* D NT-Pro-B Natriuret Pep Total Protein Albumin Triglycerides LDL Cholesterol Direct HDL Cholesterol Urine WBC (Auto) Crossmatch 02/28/19 03/01/19 03/01/19 22:59 00:47 00:48 WBC RBC Hgb Hct MCHC RDW Plt Count Seg Neuts % (Manual) Lymphocytes % (Manual) Monocytes % (Manual) Nucleated RBC % Seg Neutrophils # Man Lymphocytes # (Manual) Monocytes # (Manual) PT INR D-Dimer POC ABG pH POC ABG pCO2 POC ABG pO2 Sodium Potassium 7.0 H* D 7.3 H* Chloride 97.5 L Carbon Dioxide 10 L 7 L* BUN 22 H 23 H Creatinine 1.7 H 2.0 H Glucose 223 H 222 H POC Glucose Hemoglobin A1c Lactic Acid 19.80 H* Calcium 8.1 L Magnesium Total Bilirubin Direct Bilirubin AST 107 H 223 H ALT Alkaline Phosphatase 208 H 209 H Total Creatine Kinase CK-MB (CK-2) Troponin T NT-Pro-B Natriuret Pep Total Protein 5.9 L Albumin 2.7 L 2.5 L Triglycerides LDL Cholesterol Direct HDL Cholesterol Urine WBC (Auto) Crossmatch 03/01/19 03/01/19 03/01/19 04:07 04:07 04:07 WBC RBC Hgb Hct MCHC RDW Plt Count Seg Neuts % (Manual) Lymphocytes % (Manual) Monocytes % (Manual) Nucleated RBC % Seg Neutrophils # Man Lymphocytes # (Manual) Monocytes # (Manual) PT INR D-Dimer POC ABG pH POC ABG pCO2 POC ABG pO2 Sodium Potassium 6.1 H* Chloride Carbon Dioxide 6 L* BUN 22 H Creatinine 2.0 H Glucose 269 H POC Glucose Hemoglobin A1c Lactic Acid 22.60 H* Calcium 6.9 L Magnesium Total Bilirubin Direct Bilirubin AST 1971 H ALT 686 H Alkaline Phosphatase 193 H Total Creatine Kinase CK-MB (CK-2) Troponin T 2.910 H* D NT-Pro-B Natriuret Pep Total Protein 4.6 L D Albumin 2.0 L Triglycerides LDL Cholesterol Direct HDL Cholesterol Urine WBC (Auto) Crossmatch 03/01/19 03/01/19 03/01/19 04:45 05:03 05:38 WBC RBC 1.78 L Hgb 5.0 L* Hct 17.4 L* MCHC 29 L RDW 18.3 H Plt Count Seg Neuts % (Manual) 78.0 H Lymphocytes % (Manual) Monocytes % (Manual) Nucleated RBC % 2.0 H Seg Neutrophils # Man Lymphocytes # (Manual) Monocytes # (Manual) PT INR D-Dimer POC ABG pH 6.806 L 6.895 L POC ABG pCO2 POC ABG pO2 54 L 213 H Sodium Potassium Chloride Carbon Dioxide BUN Creatinine Glucose POC Glucose Hemoglobin A1c Lactic Acid Calcium Magnesium Total Bilirubin Direct Bilirubin AST ALT Alkaline Phosphatase Total Creatine Kinase CK-MB (CK-2) Troponin T NT-Pro-B Natriuret Pep Total Protein Albumin Triglycerides LDL Cholesterol Direct HDL Cholesterol Urine WBC (Auto) Crossmatch 03/01/19 03/01/19 03/01/19 05:38 06:03 07:29 WBC RBC Hgb Hct MCHC RDW Plt Count Seg Neuts % (Manual) Lymphocytes % (Manual) Monocytes % (Manual) Nucleated RBC % Seg Neutrophils # Man Lymphocytes # (Manual) Monocytes # (Manual) PT INR D-Dimer POC ABG pH POC ABG pCO2 POC ABG pO2 Sodium Potassium Chloride Carbon Dioxide BUN Creatinine Glucose POC Glucose 310 H Hemoglobin A1c Lactic Acid 23.40 H* 24.70 H* Calcium Magnesium Total Bilirubin Direct Bilirubin AST ALT Alkaline Phosphatase Total Creatine Kinase CK-MB (CK-2) Troponin T NT-Pro-B Natriuret Pep Total Protein Albumin Triglycerides LDL Cholesterol Direct HDL Cholesterol Urine WBC (Auto) Crossmatch 03/01/19 03/01/19 03/01/19 07:30 11:38 12:02 WBC RBC Hgb Hct MCHC RDW Plt Count Seg Neuts % (Manual) Lymphocytes % (Manual) Monocytes % (Manual) Nucleated RBC % Seg Neutrophils # Man Lymphocytes # (Manual) Monocytes # (Manual) PT INR D-Dimer POC ABG pH POC ABG pCO2 POC ABG pO2 Sodium Potassium 6.3 H* Chloride Carbon Dioxide BUN Creatinine Glucose POC Glucose 326 H Hemoglobin A1c Lactic Acid Calcium Magnesium Total Bilirubin Direct Bilirubin AST ALT Alkaline Phosphatase Total Creatine Kinase CK-MB (CK-2) Troponin T NT-Pro-B Natriuret Pep Total Protein Albumin Triglycerides LDL Cholesterol Direct HDL Cholesterol Urine WBC (Auto) Crossmatch See Detail 03/01/19 03/01/19 03/01/19 12:30 17:34 18:26 WBC RBC Hgb Hct MCHC RDW Plt Count Seg Neuts % (Manual) Lymphocytes % (Manual) Monocytes % (Manual) Nucleated RBC % Seg Neutrophils # Man Lymphocytes # (Manual) Monocytes # (Manual) PT INR D-Dimer POC ABG pH 6.960 L 7.101 L POC ABG pCO2 32.7 L POC ABG pO2 117 H 109 H Sodium Potassium Chloride Carbon Dioxide BUN Creatinine Glucose POC Glucose 434 H Hemoglobin A1c Lactic Acid Calcium Magnesium Total Bilirubin Direct Bilirubin AST ALT Alkaline Phosphatase Total Creatine Kinase CK-MB (CK-2) Troponin T NT-Pro-B Natriuret Pep Total Protein Albumin Triglycerides LDL Cholesterol Direct HDL Cholesterol Urine WBC (Auto) Crossmatch 03/01/19 03/01/19 03/01/19 20:24 20:24 21:39 WBC RBC Hgb 8.9 L D Hct 28.2 L D MCHC RDW Plt Count Seg Neuts % (Manual) Lymphocytes % (Manual) Monocytes % (Manual) Nucleated RBC % Seg Neutrophils # Man Lymphocytes # (Manual) Monocytes # (Manual) PT INR D-Dimer POC ABG pH POC ABG pCO2 POC ABG pO2 Sodium Potassium 6.2 H* Chloride Carbon Dioxide BUN Creatinine Glucose POC Glucose > 500 H Hemoglobin A1c Lactic Acid Calcium Magnesium Total Bilirubin Direct Bilirubin AST ALT Alkaline Phosphatase Total Creatine Kinase CK-MB (CK-2) Troponin T NT-Pro-B Natriuret Pep Total Protein Albumin Triglycerides LDL Cholesterol Direct HDL Cholesterol Urine WBC (Auto) Crossmatch 03/01/19 03/02/19 03/02/19 22:45 01:42 04:20 WBC 13.0 H RBC 2.47 L Hgb 7.0 L Hct 22.8 L MCHC RDW 18.4 H Plt Count Seg Neuts % (Manual) 95.0 H Lymphocytes % (Manual) 0 L Monocytes % (Manual) Nucleated RBC % 8.0 H Seg Neutrophils # Man 12.4 H Lymphocytes # (Manual) 0.0 L Monocytes # (Manual) PT INR D-Dimer POC ABG pH POC ABG pCO2 POC ABG pO2 Sodium Potassium 5.9 H Chloride 93.0 L Carbon Dioxide 16 L D BUN 28 H Creatinine 2.8 H Glucose 617 H* POC Glucose > 500 H Hemoglobin A1c Lactic Acid Calcium 6.2 L Magnesium Total Bilirubin Direct Bilirubin AST ALT Alkaline Phosphatase Total Creatine Kinase CK-MB (CK-2) Troponin T NT-Pro-B Natriuret Pep Total Protein Albumin Triglycerides LDL Cholesterol Direct HDL Cholesterol Urine WBC (Auto) Crossmatch 03/02/19 03/02/19 03/02/19 04:20 05:04 05:25 WBC RBC Hgb Hct MCHC RDW Plt Count Seg Neuts % (Manual) Lymphocytes % (Manual) Monocytes % (Manual) Nucleated RBC % Seg Neutrophils # Man Lymphocytes # (Manual) Monocytes # (Manual) PT INR D-Dimer POC ABG pH POC ABG pCO2 33.8 L POC ABG pO2 Sodium 132 L Potassium Chloride 85.5 L Carbon Dioxide 21 L BUN 27 H Creatinine 2.8 H Glucose 928 H* POC Glucose > 500 H Hemoglobin A1c Lactic Acid Calcium 6.1 L Magnesium Total Bilirubin 2.00 H Direct Bilirubin AST 7855 H ALT 2210 H Alkaline Phosphatase 238 H Total Creatine Kinase CK-MB (CK-2) Troponin T 13.790 H* D NT-Pro-B Natriuret Pep Total Protein 4.0 L Albumin 1.7 L Triglycerides LDL Cholesterol Direct HDL Cholesterol Urine WBC (Auto) Crossmatch 03/02/19 03/02/19 03/02/19 09:11 10:10 11:19 WBC RBC Hgb Hct MCHC RDW Plt Count Seg Neuts % (Manual) Lymphocytes % (Manual) Monocytes % (Manual) Nucleated RBC % Seg Neutrophils # Man Lymphocytes # (Manual) Monocytes # (Manual) PT INR D-Dimer POC ABG pH POC ABG pCO2 POC ABG pO2 Sodium Potassium Chloride Carbon Dioxide BUN Creatinine Glucose POC Glucose 494 H > 500 H 413 H Hemoglobin A1c Lactic Acid Calcium Magnesium Total Bilirubin Direct Bilirubin AST ALT Alkaline Phosphatase Total Creatine Kinase CK-MB (CK-2) Troponin T NT-Pro-B Natriuret Pep Total Protein Albumin Triglycerides LDL Cholesterol Direct HDL Cholesterol Urine WBC (Auto) Crossmatch 03/02/19 03/02/19 03/02/19 12:05 13:00 14:00 WBC RBC Hgb Hct MCHC RDW Plt Count Seg Neuts % (Manual) Lymphocytes % (Manual) Monocytes % (Manual) Nucleated RBC % Seg Neutrophils # Man Lymphocytes # (Manual) Monocytes # (Manual) PT INR D-Dimer POC ABG pH POC ABG pCO2 POC ABG pO2 Sodium Potassium Chloride Carbon Dioxide BUN Creatinine Glucose POC Glucose 400 H 391 H 415 H Hemoglobin A1c Lactic Acid Calcium Magnesium Total Bilirubin Direct Bilirubin AST ALT Alkaline Phosphatase Total Creatine Kinase CK-MB (CK-2) Troponin T NT-Pro-B Natriuret Pep Total Protein Albumin Triglycerides LDL Cholesterol Direct HDL Cholesterol Urine WBC (Auto) Crossmatch 03/02/19 03/02/19 03/02/19 15:12 16:14 17:13 WBC RBC Hgb 8.0 L Hct 24.7 L MCHC RDW Plt Count Seg Neuts % (Manual) Lymphocytes % (Manual) Monocytes % (Manual) Nucleated RBC % Seg Neutrophils # Man Lymphocytes # (Manual) Monocytes # (Manual) PT INR D-Dimer POC ABG pH POC ABG pCO2 POC ABG pO2 Sodium Potassium Chloride Carbon Dioxide BUN Creatinine Glucose POC Glucose 405 H 395 H Hemoglobin A1c Lactic Acid Calcium Magnesium Total Bilirubin Direct Bilirubin AST ALT Alkaline Phosphatase Total Creatine Kinase CK-MB (CK-2) Troponin T NT-Pro-B Natriuret Pep Total Protein Albumin Triglycerides LDL Cholesterol Direct HDL Cholesterol Urine WBC (Auto) Crossmatch 03/02/19 03/02/19 03/02/19 17:13 17:16 17:30 WBC RBC Hgb Hct MCHC RDW Plt Count Seg Neuts % (Manual) Lymphocytes % (Manual) Monocytes % (Manual) Nucleated RBC % Seg Neutrophils # Man Lymphocytes # (Manual) Monocytes # (Manual) PT INR D-Dimer POC ABG pH POC ABG pCO2 POC ABG pO2 Sodium Potassium Chloride 94.8 L Carbon Dioxide 21 L BUN 34 H Creatinine 3.2 H Glucose 358 H POC Glucose 357 H Hemoglobin A1c Lactic Acid 7.90 H* Calcium 5.9 L* Magnesium Total Bilirubin Direct Bilirubin AST ALT Alkaline Phosphatase Total Creatine Kinase CK-MB (CK-2) Troponin T NT-Pro-B Natriuret Pep Total Protein Albumin Triglycerides LDL Cholesterol Direct HDL Cholesterol Urine WBC (Auto) Crossmatch 03/02/19 03/02/19 03/02/19 18:12 19:31 20:29 WBC RBC Hgb Hct MCHC RDW Plt Count Seg Neuts % (Manual) Lymphocytes % (Manual) Monocytes % (Manual) Nucleated RBC % Seg Neutrophils # Man Lymphocytes # (Manual) Monocytes # (Manual) PT INR D-Dimer POC ABG pH POC ABG pCO2 POC ABG pO2 Sodium Potassium Chloride Carbon Dioxide BUN Creatinine Glucose POC Glucose 270 H 263 H Hemoglobin A1c Lactic Acid Calcium Magnesium Total Bilirubin Direct Bilirubin AST ALT Alkaline Phosphatase Total Creatine Kinase CK-MB (CK-2) Troponin T NT-Pro-B Natriuret Pep Total Protein Albumin Triglycerides LDL Cholesterol Direct HDL Cholesterol Urine WBC (Auto) 17.0 H Crossmatch 03/02/19 03/02/19 03/02/19 20:37 21:08 21:36 WBC RBC Hgb Hct MCHC RDW Plt Count Seg Neuts % (Manual) Lymphocytes % (Manual) Monocytes % (Manual) Nucleated RBC % Seg Neutrophils # Man Lymphocytes # (Manual) Monocytes # (Manual) PT INR D-Dimer POC ABG pH POC ABG pCO2 POC ABG pO2 Sodium Potassium Chloride Carbon Dioxide BUN Creatinine Glucose POC Glucose 270 H 262 H Hemoglobin A1c Lactic Acid 8.60 H* Calcium Magnesium Total Bilirubin Direct Bilirubin AST ALT Alkaline Phosphatase Total Creatine Kinase CK-MB (CK-2) Troponin T NT-Pro-B Natriuret Pep Total Protein Albumin Triglycerides LDL Cholesterol Direct HDL Cholesterol Urine WBC (Auto) Crossmatch 03/02/19 03/02/19 03/03/19 22:07 23:09 00:02 WBC RBC Hgb Hct MCHC RDW Plt Count Seg Neuts % (Manual) Lymphocytes % (Manual) Monocytes % (Manual) Nucleated RBC % Seg Neutrophils # Man Lymphocytes # (Manual) Monocytes # (Manual) PT INR D-Dimer POC ABG pH POC ABG pCO2 POC ABG pO2 Sodium Potassium Chloride Carbon Dioxide BUN Creatinine Glucose POC Glucose 252 H 230 H 159 H Hemoglobin A1c Lactic Acid Calcium Magnesium Total Bilirubin Direct Bilirubin AST ALT Alkaline Phosphatase Total Creatine Kinase CK-MB (CK-2) Troponin T NT-Pro-B Natriuret Pep Total Protein Albumin Triglycerides LDL Cholesterol Direct HDL Cholesterol Urine WBC (Auto) Crossmatch 03/03/19 03/03/19 03/03/19 00:45 00:45 00:45 WBC RBC Hgb 6.3 L Hct 19.8 L* MCHC RDW Plt Count Seg Neuts % (Manual) Lymphocytes % (Manual) Monocytes % (Manual) Nucleated RBC % Seg Neutrophils # Man Lymphocytes # (Manual) Monocytes # (Manual) PT INR D-Dimer POC ABG pH POC ABG pCO2 POC ABG pO2 Sodium Potassium 2.9 L* D Chloride 110.4 H Carbon Dioxide 16 L BUN 27 H Creatinine 2.7 H Glucose 156 H POC Glucose Hemoglobin A1c Lactic Acid 4.90 H* Calcium 4.6 L* D Magnesium Total Bilirubin Direct Bilirubin AST ALT Alkaline Phosphatase Total Creatine Kinase CK-MB (CK-2) Troponin T NT-Pro-B Natriuret Pep Total Protein Albumin Triglycerides LDL Cholesterol Direct HDL Cholesterol Urine WBC (Auto) Crossmatch 03/03/19 03/03/19 03/03/19 01:10 02:04 03:07 WBC RBC Hgb Hct MCHC RDW Plt Count Seg Neuts % (Manual) Lymphocytes % (Manual) Monocytes % (Manual) Nucleated RBC % Seg Neutrophils # Man Lymphocytes # (Manual) Monocytes # (Manual) PT INR D-Dimer POC ABG pH POC ABG pCO2 POC ABG pO2 Sodium Potassium Chloride Carbon Dioxide BUN Creatinine Glucose POC Glucose 189 H 214 H 160 H Hemoglobin A1c Lactic Acid Calcium Magnesium Total Bilirubin Direct Bilirubin AST ALT Alkaline Phosphatase Total Creatine Kinase CK-MB (CK-2) Troponin T NT-Pro-B Natriuret Pep Total Protein Albumin Triglycerides LDL Cholesterol Direct HDL Cholesterol Urine WBC (Auto) Crossmatch 03/03/19 03/03/19 03/03/19 04:10 04:52 05:20 WBC RBC Hgb Hct MCHC RDW Plt Count Seg Neuts % (Manual) Lymphocytes % (Manual) Monocytes % (Manual) Nucleated RBC % Seg Neutrophils # Man Lymphocytes # (Manual) Monocytes # (Manual) PT INR D-Dimer POC ABG pH POC ABG pCO2 34.7 L POC ABG pO2 51 L Sodium Potassium Chloride Carbon Dioxide BUN Creatinine Glucose POC Glucose 142 H 142 H Hemoglobin A1c Lactic Acid Calcium Magnesium Total Bilirubin Direct Bilirubin AST ALT Alkaline Phosphatase Total Creatine Kinase CK-MB (CK-2) Troponin T NT-Pro-B Natriuret Pep Total Protein Albumin Triglycerides LDL Cholesterol Direct HDL Cholesterol Urine WBC (Auto) Crossmatch 03/03/19 03/03/19 03/03/19 06:06 06:50 08:01 WBC RBC Hgb Hct MCHC RDW Plt Count Seg Neuts % (Manual) Lymphocytes % (Manual) Monocytes % (Manual) Nucleated RBC % Seg Neutrophils # Man Lymphocytes # (Manual) Monocytes # (Manual) PT INR D-Dimer POC ABG pH POC ABG pCO2 POC ABG pO2 Sodium Potassium Chloride Carbon Dioxide BUN Creatinine Glucose POC Glucose 127 H 131 H 137 H Hemoglobin A1c Lactic Acid Calcium Magnesium Total Bilirubin Direct Bilirubin AST ALT Alkaline Phosphatase Total Creatine Kinase CK-MB (CK-2) Troponin T NT-Pro-B Natriuret Pep Total Protein Albumin Triglycerides LDL Cholesterol Direct HDL Cholesterol Urine WBC (Auto) Crossmatch 03/03/19 03/03/19 03/03/19 08:30 08:30 08:30 WBC 14.0 H RBC 3.52 L Hgb 9.9 L D Hct 29.8 L D MCHC RDW 16.6 H Plt Count Seg Neuts % (Manual) 92.0 H Lymphocytes % (Manual) 5.0 L Monocytes % (Manual) Nucleated RBC % 13.0 H Seg Neutrophils # Man 0.0 L Lymphocytes # (Manual) 0.0 L Monocytes # (Manual) PT INR D-Dimer POC ABG pH POC ABG pCO2 POC ABG pO2 Sodium Potassium 5.3 H D Chloride Carbon Dioxide BUN 38 H Creatinine 4.0 H Glucose 135 H POC Glucose Hemoglobin A1c Lactic Acid 4.00 H* Calcium 6.8 L D Magnesium 1.60 L Total Bilirubin 1.30 H Direct Bilirubin AST 4012 H ALT 1793 H Alkaline Phosphatase 259 H Total Creatine Kinase CK-MB (CK-2) Troponin T NT-Pro-B Natriuret Pep Total Protein 4.6 L Albumin 2.0 L Triglycerides LDL Cholesterol Direct HDL Cholesterol Urine WBC (Auto) Crossmatch 03/03/19 03/03/19 03/03/19 09:03 10:17 11:15 WBC RBC Hgb Hct MCHC RDW Plt Count Seg Neuts % (Manual) Lymphocytes % (Manual) Monocytes % (Manual) Nucleated RBC % Seg Neutrophils # Man Lymphocytes # (Manual) Monocytes # (Manual) PT INR D-Dimer POC ABG pH POC ABG pCO2 POC ABG pO2 Sodium Potassium Chloride Carbon Dioxide BUN Creatinine Glucose POC Glucose 108 H 113 H 126 H Hemoglobin A1c Lactic Acid Calcium Magnesium Total Bilirubin Direct Bilirubin AST ALT Alkaline Phosphatase Total Creatine Kinase CK-MB (CK-2) Troponin T NT-Pro-B Natriuret Pep Total Protein Albumin Triglycerides LDL Cholesterol Direct HDL Cholesterol Urine WBC (Auto) Crossmatch 03/03/19 03/03/19 03/03/19 13:38 17:02 20:41 WBC RBC Hgb Hct MCHC RDW Plt Count Seg Neuts % (Manual) Lymphocytes % (Manual) Monocytes % (Manual) Nucleated RBC % Seg Neutrophils # Man Lymphocytes # (Manual) Monocytes # (Manual) PT INR D-Dimer > 09429 H POC ABG pH POC ABG pCO2 POC ABG pO2 Sodium Potassium Chloride Carbon Dioxide BUN Creatinine Glucose POC Glucose 195 H 195 H Hemoglobin A1c Lactic Acid Calcium Magnesium Total Bilirubin Direct Bilirubin AST ALT Alkaline Phosphatase Total Creatine Kinase CK-MB (CK-2) Troponin T NT-Pro-B Natriuret Pep Total Protein Albumin Triglycerides LDL Cholesterol Direct HDL Cholesterol Urine WBC (Auto) Crossmatch 03/03/19 03/04/19 03/04/19 23:48 04:32 05:15 WBC RBC Hgb Hct MCHC RDW Plt Count Seg Neuts % (Manual) Lymphocytes % (Manual) Monocytes % (Manual) Nucleated RBC % Seg Neutrophils # Man Lymphocytes # (Manual) Monocytes # (Manual) PT INR D-Dimer POC ABG pH POC ABG pCO2 POC ABG pO2 Sodium Potassium 5.8 H Chloride 96.2 L Carbon Dioxide BUN 46 H Creatinine 4.6 H Glucose 253 H POC Glucose 206 H 248 H Hemoglobin A1c Lactic Acid Calcium 6.5 L Magnesium Total Bilirubin 1.30 H Direct Bilirubin AST 1662 H ALT 1186 H Alkaline Phosphatase 250 H Total Creatine Kinase CK-MB (CK-2) Troponin T NT-Pro-B Natriuret Pep Total Protein 4.3 L Albumin 1.7 L Triglycerides LDL Cholesterol Direct HDL Cholesterol Urine WBC (Auto) Crossmatch 03/04/19 03/04/19 03/04/19 05:15 05:15 07:55 WBC RBC Hgb 9.2 L Hct 28.0 L MCHC RDW Plt Count 123 L Seg Neuts % (Manual) Lymphocytes % (Manual) Monocytes % (Manual) Nucleated RBC % Seg Neutrophils # Man Lymphocytes # (Manual) Monocytes # (Manual) PT INR D-Dimer POC ABG pH POC ABG pCO2 POC ABG pO2 Sodium Potassium Chloride Carbon Dioxide BUN Creatinine Glucose POC Glucose 264 H Hemoglobin A1c Lactic Acid 3.40 H* Calcium Magnesium Total Bilirubin Direct Bilirubin AST ALT Alkaline Phosphatase Total Creatine Kinase CK-MB (CK-2) Troponin T NT-Pro-B Natriuret Pep Total Protein Albumin Triglycerides LDL Cholesterol Direct HDL Cholesterol Urine WBC (Auto) Crossmatch 03/04/19 03/04/19 03/04/19 08:08 11:27 14:14 WBC RBC Hgb Hct MCHC RDW Plt Count Seg Neuts % (Manual) Lymphocytes % (Manual) Monocytes % (Manual) Nucleated RBC % Seg Neutrophils # Man Lymphocytes # (Manual) Monocytes # (Manual) PT INR D-Dimer POC ABG pH POC ABG pCO2 POC ABG pO2 122 H Sodium Potassium Chloride Carbon Dioxide BUN Creatinine Glucose POC Glucose 269 H Hemoglobin A1c Lactic Acid 3.50 H* Calcium Magnesium Total Bilirubin Direct Bilirubin AST ALT Alkaline Phosphatase Total Creatine Kinase CK-MB (CK-2) Troponin T NT-Pro-B Natriuret Pep Total Protein Albumin Triglycerides LDL Cholesterol Direct HDL Cholesterol Urine WBC (Auto) Crossmatch 03/04/19 03/04/19 03/05/19 17:02 20:23 00:14 WBC RBC Hgb Hct MCHC RDW Plt Count Seg Neuts % (Manual) Lymphocytes % (Manual) Monocytes % (Manual) Nucleated RBC % Seg Neutrophils # Man Lymphocytes # (Manual) Monocytes # (Manual) PT INR D-Dimer POC ABG pH POC ABG pCO2 POC ABG pO2 Sodium Potassium Chloride Carbon Dioxide BUN Creatinine Glucose POC Glucose 300 H 349 H 350 H Hemoglobin A1c Lactic Acid Calcium Magnesium Total Bilirubin Direct Bilirubin AST ALT Alkaline Phosphatase Total Creatine Kinase CK-MB (CK-2) Troponin T NT-Pro-B Natriuret Pep Total Protein Albumin Triglycerides LDL Cholesterol Direct HDL Cholesterol Urine WBC (Auto) Crossmatch 03/05/19 03/05/19 03/05/19 04:53 10:34 12:11 WBC RBC Hgb Hct MCHC RDW Plt Count Seg Neuts % (Manual) Lymphocytes % (Manual) Monocytes % (Manual) Nucleated RBC % Seg Neutrophils # Man Lymphocytes # (Manual) Monocytes # (Manual) PT INR D-Dimer POC ABG pH POC ABG pCO2 POC ABG pO2 Sodium Potassium 5.6 H Chloride Carbon Dioxide 21 L BUN 51 H Creatinine 5.6 H Glucose 285 H POC Glucose 313 H 257 H Hemoglobin A1c Lactic Acid Calcium 7.3 L Magnesium Total Bilirubin Direct Bilirubin AST ALT Alkaline Phosphatase Total Creatine Kinase CK-MB (CK-2) Troponin T NT-Pro-B Natriuret Pep Total Protein Albumin Triglycerides LDL Cholesterol Direct HDL Cholesterol Urine WBC (Auto) Crossmatch 03/05/19 03/05/19 03/05/19 15:50 20:08 23:04 WBC RBC Hgb Hct MCHC RDW Plt Count Seg Neuts % (Manual) Lymphocytes % (Manual) Monocytes % (Manual) Nucleated RBC % Seg Neutrophils # Man Lymphocytes # (Manual) Monocytes # (Manual) PT INR D-Dimer POC ABG pH POC ABG pCO2 POC ABG pO2 Sodium Potassium Chloride Carbon Dioxide BUN Creatinine Glucose POC Glucose 284 H 278 H 241 H Hemoglobin A1c Lactic Acid Calcium Magnesium Total Bilirubin Direct Bilirubin AST ALT Alkaline Phosphatase Total Creatine Kinase CK-MB (CK-2) Troponin T NT-Pro-B Natriuret Pep Total Protein Albumin Triglycerides LDL Cholesterol Direct HDL Cholesterol Urine WBC (Auto) Crossmatch 03/06/19 03/06/19 03/06/19 03:53 04:19 04:30 WBC RBC Hgb 8.8 L Hct 27.7 L MCHC RDW Plt Count 96 L Seg Neuts % (Manual) Lymphocytes % (Manual) Monocytes % (Manual) Nucleated RBC % Seg Neutrophils # Man Lymphocytes # (Manual) Monocytes # (Manual) PT INR D-Dimer POC ABG pH 7.332 L POC ABG pCO2 POC ABG pO2 Sodium Potassium Chloride Carbon Dioxide BUN Creatinine Glucose POC Glucose 215 H Hemoglobin A1c Lactic Acid Calcium Magnesium Total Bilirubin Direct Bilirubin AST ALT Alkaline Phosphatase Total Creatine Kinase CK-MB (CK-2) Troponin T NT-Pro-B Natriuret Pep Total Protein Albumin Triglycerides LDL Cholesterol Direct HDL Cholesterol Urine WBC (Auto) Crossmatch Allied health notes reviewed: nursing
[2019-03-06] MEDS: SODIUM CHLORIDE FLUSH SYRINGE 10 ML IV SCH ×2 (11:55→22:47)
--- NOTE | 2019-03-06 14:39 | Progress Note ---
Assessment and Plan - Patient Problems (1) GERALDINE (acute kidney injury) Current Visit: Yes Status: Acute Plan to address problem: Acute kidney injury is acute tubular necrosis secondary to hypotension and sepsis. Kidney function is worsening. Patient is a poor candidate for renal replacement therapy. Discussions ongoing about considering hospice/palliative care. (2) Hyperkalemia Current Visit: Yes Status: Acute Plan to address problem: Secondary to decreased distal delivery of sodium needed for exchange for potassium in the distal tubules. Continue volume expansion. Potassium is high normal. Patient is a poor candidate for renal replacement therapy. (3) Hyperosmolar non-ketotic state in patient with type 2 diabetes mellitus Current Visit: Yes Status: Acute Plan to address problem: Management of hyperglycemia per Primary attending (4) Hyponatremia Current Visit: Yes Status: Acute Plan to address problem: Hypovolemic and also factitious secondary to hyperglycemia. Resolved. Follow- up sodium (5) Essential (primary) hypertension Current Visit: Yes Status: Acute Plan to address problem: She was hypotensive on presentation, blood pressure has improved. Monitor blood pressure closely (6) Peripheral vascular disease Current Visit: Yes Status: Chronic Plan to address problem: Recent thrombolysis complicated by compartment syndrome status post fasciotomy. Follow-up creatinine phosphokinase (7) Anemia Current Visit: Yes Status: Acute Qualifiers: Anemia type: unspecified type Qualified Code(s): D64.9 - Anemia, unspecified Plan to address problem: Follow-up hemoglobin (8) Sepsis Current Visit: Yes Status: Suspected Qualifiers: Sepsis type: sepsis due to unspecified organism Qualified Code(s): A41.9 - Sepsis, unspecified organism Plan to address problem: Possibly secondary to urinary tract infection. Check lactic acid. Follow-up blood and urine cultures. Subjective Date of service: 03/06/19 Principal diagnosis: anemia Interval history: Patient seen lying in bed. Intubated and on ventilator. On Levophed at 12 mcg per minute. Objective - Exam Narrative Exam: Obese middle-aged maryjane in bed intubated on ventilator HEENT: NCAT, pink and dry oral mucous membrane Neck: Supple, no venous distention CVS: S1S2 RRR with no murmur, rub or gallop Chest: Bilateral rhonchi Abdomen: Obese, soft, nontender, no organomegaly, bowel sounds are present Extremities: Dressing right lower extremity clean and dry, no edema Skin warm and dry Genitourinary deferred Neuro: Unresponsive - Vital Signs Vital signs: Vital Signs - 12hr 03/06/19 03/06/19 03/06/19 02:45 03:00 03:15 Temperature Pulse Rate 109 H 107 H 107 H Pulse Rate [ Anterior Bilateral Throughout] Pulse Rate [ Left Posterior Tibial] Respiratory 25 H 15 24 Rate Respiratory Rate [Anterior Bilateral Throughout] Blood Pressure 128/65 117/60 118/60 O2 Sat by Pulse 97 97 97 Oximetry 03/06/19 03/06/19 03/06/19 03:30 03:45 03:53 Temperature Pulse Rate 108 H 109 H 111 H Pulse Rate [ Anterior Bilateral Throughout] Pulse Rate [ Left Posterior Tibial] Respiratory 20 19 Rate Respiratory Rate [Anterior Bilateral Throughout] Blood Pressure 124/61 114/63 124/61 O2 Sat by Pulse 97 97 97 Oximetry 03/06/19 03/06/19 03/06/19 04:00 04:15 04:30 Temperature 100.6 F H Pulse Rate 109 H 109 H 108 H Pulse Rate [ Anterior Bilateral Throughout] Pulse Rate [ 102 H Left Posterior Tibial] Respiratory 19 20 20 Rate Respiratory Rate [Anterior Bilateral Throughout] Blood Pressure 126/60 131/64 130/59 O2 Sat by Pulse 97 97 97 Oximetry 03/06/19 03/06/19 03/06/19 04:45 05:00 05:15 Temperature Pulse Rate 116 H 118 H 116 H Pulse Rate [ Anterior Bilateral Throughout] Pulse Rate [ Left Posterior Tibial] Respiratory 17 20 20 Rate Respiratory Rate [Anterior Bilateral Throughout] Blood Pressure 129/66 134/64 132/66 O2 Sat by Pulse 97 97 97 Oximetry 03/06/19 03/06/19 03/06/19 05:30 05:45 06:00 Temperature Pulse Rate 115 H 115 H 116 H Pulse Rate [ Anterior Bilateral Throughout] Pulse Rate [ Left Posterior Tibial] Respiratory 20 20 18 Rate Respiratory Rate [Anterior Bilateral Throughout] Blood Pressure 134/64 136/67 138/68 O2 Sat by Pulse 98 98 98 Oximetry 03/06/19 03/06/19 03/06/19 06:15 06:30 06:45 Temperature Pulse Rate 116 H 117 H 117 H Pulse Rate [ Anterior Bilateral Throughout] Pulse Rate [ Left Posterior Tibial] Respiratory 23 20 20 Rate Respiratory Rate [Anterior Bilateral Throughout] Blood Pressure 139/68 142/71 141/71 O2 Sat by Pulse 98 98 98 Oximetry 03/06/19 03/06/19 03/06/19 07:00 07:15 07:30 Temperature Pulse Rate 117 H 117 H 119 H Pulse Rate [ Anterior Bilateral Throughout] Pulse Rate [ Left Posterior Tibial] Respiratory 20 19 20 Rate Respiratory Rate [Anterior Bilateral Throughout] Blood Pressure 141/71 144/72 145/74 O2 Sat by Pulse 98 98 98 Oximetry 03/06/19 03/06/19 03/06/19 07:45 08:00 08:15 Temperature 99.5 F Pulse Rate 120 H 121 H 121 H Pulse Rate [ Anterior Bilateral Throughout] Pulse Rate [ 98 H Left Posterior Tibial] Respiratory 25 H 19 20 Rate Respiratory Rate [Anterior Bilateral Throughout] Blood Pressure 146/73 140/74 139/69 O2 Sat by Pulse 98 98 98 Oximetry 03/06/19 03/06/19 03/06/19 08:30 08:45 09:00 Temperature Pulse Rate 121 H 123 H 120 H Pulse Rate [ Anterior Bilateral Throughout] Pulse Rate [ Left Posterior Tibial] Respiratory 20 23 19 Rate Respiratory Rate [Anterior Bilateral Throughout] Blood Pressure 139/72 129/68 125/66 O2 Sat by Pulse 98 98 98 Oximetry 03/06/19 03/06/19 03/06/19 09:09 09:15 09:30 Temperature Pulse Rate 118 H 96 H Pulse Rate [ 120 H 87 Anterior Bilateral Throughout] Pulse Rate [ Left Posterior Tibial] Respiratory 19 18 Rate Respiratory 22 29 H Rate [Anterior Bilateral Throughout] Blood Pressure 117/62 75/34 O2 Sat by Pulse 98 100 Oximetry 03/06/19 03/06/19 03/06/19 09:45 10:00 12:00 Temperature 100.4 F H Pulse Rate 106 H 122 H Pulse Rate [ Anterior Bilateral Throughout] Pulse Rate [ Left Posterior Tibial] Respiratory 30 H 30 H Rate Respiratory Rate [Anterior Bilateral Throughout] Blood Pressure 90/47 112/64 O2 Sat by Pulse 96 96 Oximetry 03/06/19 03/06/19 13:00 14:08 Temperature Pulse Rate 107 H Pulse Rate [ 106 H Anterior Bilateral Throughout] Pulse Rate [ Left Posterior Tibial] Respiratory Rate Respiratory 30 H Rate [Anterior Bilateral Throughout] Blood Pressure 109/52 O2 Sat by Pulse 96 Oximetry - Lab 03/06/19 04:30 03/05/19 10:34 Most recent lab results Calcium 7.3 mg/dL (8.4-10.2) L 03/05/19 10:34 Phosphorus 4.50 mg/dL (2.5-4.5) 03/03/19 08:30 Magnesium 1.60 mg/dL (1.7-2.3) L 03/03/19 08:30 Medications & Allergies - Medications Allergies/Adverse Reactions: Allergies No Known Allergies Allergy (Verified 01/28/19 21:26) Home Medications: Home Medications Medication Instructions Recorded Confirmed Last Taken Type Aspirin [Low Dose Aspirin EC] 81 mg PO DAILY #30 tablet. 02/04/19 02/16/19 02/14/19 10:00 Rx Clopidogrel [Plavix] 75 mg PO QDAY #30 tablet 02/04/19 02/16/19 02/14/19 10:00 Rx Lispro Insulin [Humalog] 0 unit SUB-Q ACHS units 02/20/19 Unknown Rx Lispro Insulin [Humalog] 5 unit SUB-Q AC 30 Days units 02/20/19 Unknown Rx Multivitamin with Iron [Tab-A-Lupe 1 each PO DAILY #30 tablet 02/20/19 Unknown Rx with Iron] Valsartan [Diovan] 160 mg PO BID #60 tablet 02/20/19 Unknown Rx oxyCODONE /ACETAMINOPHEN [Percocet 1 tab PO Q6H PRN #20 tablet 02/20/19 Unknown Rx 5/325 mg] Insulin Glargine [Lantus VIAL] 22 units SUB-Q DAILY #1 vial 02/25/19 Unknown Rx Insulin Lispro [HumaLOG VIAL] 0 units SQ AC #1 vial 02/25/19 Unknown Rx Active Medications: Generic Name Dose Route Start Last Admin Trade Name Graysonq PRN Reason Stop Dose Admin Acetaminophen 650 mg 02/13/19 18:03 Tylenol PO Q4H PRN Pain MILD(1-3)/Fever >100.5/MARTÍNEZ Albuterol 2.5 mg 02/22/19 04:53 02/28/19 16:08 Proventil IH 2.5 mg Q6HRT PRN Administration Shortness Of Breath Albuterol/Ipratropium 1 ampul 02/28/19 16:45 03/06/19 14:08 Duoneb *Not For Prn Use* IH 1 ampul Q6HRT RAFAEL Administration Aspirin 325 mg 02/28/19 19:00 03/06/19 10:55 Aspirin PO 325 mg QDAY RAFAEL Administration Dextrose 50 ml 03/02/19 08:04 D50w (25gm) Syringe IV PRN PRN Hypoglycemia Fentanyl 50 mcg 02/28/19 21:01 Sublimaze IV Q10MIN PRN ANALGESIA Furosemide 80 mg 03/03/19 10:00 03/06/19 05:24 Lasix IV 80 mg 0600,1800 RAFAEL Administration Hydralazine HCl 10 mg 03/02/19 15:28 Apresoline IV Q4HR PRN BP >180/110 Hydrophilic Ointment 1 applic 02/28/19 21:29 Vaseline Lip Therapy TP Q2HR PRN Dry Lips Fentanyl Citrate 2,000 mcg in 100 mls @ 5.665 mls/hr 02/28/19 22:00 03/01/19 00:46 Fentanyl Drip Premix IV 0 mcg/kg/hr TITR RAFAEL 0 mls/hr Titration Protocol 1 MCG/KG/HR Dopamine HCl/Dextrose 800 mg in 250 mls @ 4.249 mls/hr 03/01/19 01:35 03/02/19 00:13 Intropin Drip 800 Mg/D5w 250 Ml IV 0 mcg/kg/min TITR RAFAEL 0 mls/hr Titration Protocol 2 MCG/KG/MIN Cefepime HCl 2 gm in 100 mls @ 200 mls/hr 03/01/19 20:00 03/06/19 10:40 Maxipime/Ns 2 Gm/100 Ml IV 200 mls/hr Q24HR RAFAEL Administration Protocol Sodium Chloride 1,000 mls @ 42 mls/hr 03/02/19 10:00 03/04/19 18:29 Nacl 0.9% 1000 Ml IV 42 mls/hr DIRECT RAFAEL Administration Dobutamine HCl/Dextrose 500 mg in 250 mls @ 16.995 mls/hr 03/04/19 11:00 03/04/19 23:30 Dobutrex Drip 500mg/D5w 250ml IV 0 mcg/kg/min DIRECT RAFAEL 0 mls/hr Infusion 5 MCG/KG/MIN Norepinephrine 8 mg/ Sodium 250 mls @ 3.75 mls/hr 03/04/19 21:00 03/06/19 10:00 Chloride IV 22 mcg/min TITR RAFAEL 41.25 mls/hr Titration Protocol 2 MCG/MIN Insulin Glargine 30 units 03/05/19 14:04 04/06/19 09:54 Lantus SUB-Q 30 units DAILY RAFAEL Administration Insulin Human Lispro 0 unit 03/03/19 12:00 03/06/19 11:56 Humalog SUB-Q 3 unit Q4H RAFAEL Administration Protocol Multi-Ingred Cream/Lotion/Oil/Oint 1 applic 03/03/19 10:39 03/03/19 11:07 Artificial Tears Ophth Oint OU 1 applic PRN PRN Administration Dry Eye(s) Ondansetron HCl 4 mg 02/13/19 18:03 Zofran IV Q8H PRN Nausea And Vomiting Pantoprazole Sodium 40 mg 03/02/19 22:00 03/06/19 10:50 Protonix IV 40 mg BID RAFAEL Administration Sodium Chloride 10 ml 02/13/19 22:00 03/06/19 11:55 Sodium Chloride Flush Syringe 10 Ml IV 10 ml BID RAFAEL Administration Sodium Chloride 10 ml 02/13/19 18:03 Sodium Chloride Flush Syringe 10 Ml IV PRN PRN LINE FLUSH
[2019-03-07] MEDS: DUONEB *Not for PRN Use IH SCH ×4 (02:26→19:27)
[2019-03-07] MEDS: HumaLOG SUB-Q SCH ×6 (04:37→21:40)
[2019-03-07] MEDS: LEVOPHED 8 MG in NACL 0.9% 250ML 242 ML IV SCH ×2 (04:48→11:02)
[2019-03-07] MEDS: LASIX IV SCH ×2 (05:55→17:37)
--- NOTE | 2019-03-07 09:25 | Progress Note ---
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 CT head; no acute findings CXR no acute findings Labs; UA > 182 WBC Micro; urine and blood growing ecoli sens to current abx Diagnosis sepsis, ecoli Bactermia and Ecoli UTI PNA? Acute hypoxic respiratory failure anemia, likely due to chronic disease and critical illness HHNK, Type 2 DM, A1c 9 Hyponatremia, likely pseudohyponatremia of hyperglycemia Hyperkalemia GERALDINE- likely ATN Hypomagesemia- resolved PAD hx of RLE ischemia, sp thrombolysis, revascularization and fascitomy dry gangrene, R second toe Rhabdomylsis, non traumatic acute metabolic encephalopathy Fluid overload Acute cva DE Anoxic encephalopathy Acute kidney injury due to ATN Shock liver/transaminitis Distributive shock Plan * UTI/bacteremia; The patient had sepsis due to Escherichia coli bacteremia and Escherichia coli UTI. She completed a course of antibiotics for that on 02/20 * The patient had some necrotic tissue on her right leg, she was seen by vascular surgery, status post debridement of right leg on 02/20, necrotic tissue was removed. 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 Imaging showed infiltrates, she received Lasix after which infiltrate completely resolved. Therefore it was due to vascular congestion, pneumonia was at that time ruled out. VQ scan and lower extremity Dopplers were negative which at that time excluded VTE. Her respiratory status was improving, she was being weaned off oxygen. Echo showed preserved EF * She initially presented with severe hyperglycemia, she was treated with insulin and IV fluids, she was put on bolus and basal insulin and her sugars improved * She had hypomagnesemia, and if her magnesium was repleted. She also had elevated potassium for which she received single dose of Kayexalate on 02/17 * The patient was improving and was planned for rehabilitation placement, but unfortunately she had a decline * received multiple units of pr she had anemia, bc, first unit on 02/18, then had another drop in hct after code blue on 03/01 after which she got another 3 units, ; seen by GI, they did not suspect acute GI bleed. * 02/28, she developed chest pain or shortness of breath, put on anticoagulation, was being seen by cardiology for possible DE, as PE was again suspected, anticoagulation was later discontinued due to anemia * 03/01, she became pulseless, ROZ RAZA was called, she received CPR, had ROSC was then intubated and sedated, but per her family was only moving her right side at that time, she was on pressors and was too unstable to go to CT scan * 03/02, the patient was more stable, therefore she was taking for CT scan which confirmed subacute cerebral stroke, at this time the patient was now completely obtunded, not responsive to painful stimuli, and only had a gag reflex, fixed pupils and absence of most reflexes. Stroke protocol place, neurology consult placed. Patient already on aspirin, unable to tolerate statins due to markedly elevated LFTs, this is most likely due to shock liver, the patient remains pressor dependent * 03/03, the patient now has no reflexes, no gag reflex, no corneal reflex. Prognosis is very poor at this time, family meeting planned for tomorrow. Nuclear medicine brain flow scan ordered. * 03/04, brain flow scan unequivocal, minimal blood flow, cars[facility] neurolgy, plan for EEG, had family meeting and discussed goals of care, advance directives and prognosis, time spent was 60 minutes, repleted calcium * 03/05, EEG shows no activity with provocation, cars[facility] Neurologist, patient is now brain , awaiting family who are traveling from [place] prior to pronouncing, plan to pronounce after family travels to say their good bye. Called her sis Moreno 3 times at [phone], unable to leave voicemail. nurse made aware to call me if family comes to the hospital, has worsening GERALDINE, and has mild hyperkalemia, cont conservative measure, not a candidate for HD, dw nephrology, remains vent and pressor dependent * 03/06 and 03/07; patient is brain since 03/05, awaiting family to arrive to pronounce her. Patient is clinically brain , a CCT 33 minutes History Interval history: The patient is obtunded, intubated, not on sedation No vomiting, no seizures, no agitation. Patient has been nonresponsive Hospitalist Physical - Physical exam Narrative exam: General.: Obtunded, appears ill HEENT: Corneal edema noted Neck: supple Cardiac: S1-S2 heard Lungs: Ventilated breath sounds Abdomen: soft , nontender, nondistended, bowel sounds positive Extremities: Bilateral lower extremity bandages noted, bandages to right lower extremity when not removed on my exam Skin: no rash or lesions Neurologic: The patient does not open her eyes, does not move any extremities, does not respond to painful stimuli, she lacks any brainstem reflexes, gag reflex absence - Constitutional Vitals: Temp Pulse Resp BP Pulse Ox 101.8 F H 102 H 19 112/52 93 03/07/19 08:00 03/07/19 06:45 03/07/19 06:45 03/07/19 06:45 03/07/19 06:45 General appearance: Present: other (intubated, nonresponsive, off sedation ) Results - Labs CBC & Chem 7: 03/06/19 04:30 03/05/19 10:34 Labs: Laboratory Last Values WBC 14.0 K/mm3 (4.5-11.0) H 03/03/19 08:30 RBC 3.52 M/mm3 (3.65-5.03) L 03/03/19 08:30 Hgb 8.8 gm/dl (10.1-14.3) L 03/06/19 04:30 Hct 27.7 % (30.3-42.9) L 03/06/19 04:30 MCV 85 fl (79-97) 03/03/19 08:30 MCH 28 pg (28-32) 03/03/19 08:30 MCHC 33 % (30-34) 03/03/19 08:30 RDW 16.6 % (13.2-15.2) H 03/03/19 08:30 Plt Count 96 K/mm3 (140-440) L 03/06/19 04:30 Lymph % (Auto) Commissary Clerk 02/17/19 10:41 [place] % (Auto) Commissary Clerk 02/17/19 10:41 Eos % (Auto) Commissary Clerk 02/17/19 10:41 Baso % (Auto) Commissary Clerk 02/17/19 10:41 Lymph # Commissary Clerk 02/17/19 10:41 [place] # Commissary Clerk 02/17/19 10:41 Eos # Commissary Clerk 02/17/19 10:41 Baso # Commissary Clerk 02/17/19 10:41 Add Manual Diff Complete 03/03/19 08:30 Total Counted 100 03/03/19 08:30 Seg Neutrophils % Commissary Clerk 02/17/19 10:41 Seg Neuts % (Manual) 92.0 % (40.0-70.0) H 03/03/19 08:30 Band Neutrophils % 0 % 03/03/19 08:30 Lymphocytes % (Manual) 5.0 % (13.4-35.0) L 03/03/19 08:30 Reactive Lymphs % (Man) 0 % 03/03/19 08:30 Monocytes % (Manual) 1.0 % (0.0-7.3) 03/03/19 08:30 Eosinophils % (Manual) 0 % (0.0-4.3) 03/03/19 08:30 Basophils % (Manual) 0 % (0.0-1.8) 03/03/19 08:30 Metamyelocytes % 1.0 % 03/03/19 08:30 Myelocytes % 1.0 % 03/03/19 08:30 Promyelocytes % 0 % 03/03/19 08:30 Blast Cells % 0 % 03/03/19 08:30 Nucleated RBC % 13.0 % (0.0-0.9) H 03/03/19 08:30 Seg Neutrophils # Commissary Clerk 02/17/19 10:41 Seg Neutrophils # Man 0.0 K/mm3 (1.8-7.7) L 03/03/19 08:30 Band Neutrophils # 0.0 K/mm3 03/03/19 08:30 Lymphocytes # (Manual) 0.0 K/mm3 (1.2-5.4) L 03/03/19 08:30 Abs React Lymphs (Man) 0.0 K/mm3 03/03/19 08:30 Monocytes # (Manual) 0.0 K/mm3 (0.0-0.8) 03/03/19 08:30 Eosinophils # (Manual) 0.0 K/mm3 (0.0-0.4) 03/03/19 08:30 Basophils # (Manual) 0.0 K/mm3 (0.0-0.1) 03/03/19 08:30 Metamyelocytes # 0.0 K/mm3 03/03/19 08:30 Myelocytes # 0.0 K/mm3 03/03/19 08:30 Promyelocytes # 0.0 K/mm3 03/03/19 08:30 Blast Cells # 0.0 K/mm3 03/03/19 08:30 WBC Morphology Not Reportable 03/03/19 08:30 Hypersegmented Neuts Not Reportable 03/03/19 08:30 Hyposegmented Neuts Not Reportable 03/03/19 08:30 Hypogranular Neuts Not Reportable 03/03/19 08:30 Smudge Cells Not Reportable 03/03/19 08:30 Toxic Granulation Not Reportable 03/03/19 08:30 Toxic Vacuolation Not Reportable 03/03/19 08:30 Dohle Bodies Not Reportable 03/03/19 08:30 Pelger-Huet Anomaly Not Reportable 03/03/19 08:30 Cisco Rods Not Reportable 03/03/19 08:30 Platelet Estimate Consistent w auto 03/03/19 08:30 Clumped Platelets Not Reportable 03/03/19 08:30 Plt Clumps, EDTA Not Reportable 03/03/19 08:30 Large Platelets Few 03/03/19 08:30 Giant Platelets Not Reportable 03/03/19 08:30 Platelet Satelliting Not Reportable 03/03/19 08:30 Plt Morphology Comment Not Reportable 03/03/19 08:30 RBC Morphology Not Reportable 03/03/19 08:30 Dimorphic RBCs Not Reportable 03/03/19 08:30 Polychromasia Not Reportable 03/03/19 08:30 Hypochromasia Not Reportable 03/03/19 08:30 Poikilocytosis Not Reportable 03/03/19 08:30 Anisocytosis 1+ 03/03/19 08:30 Microcytosis Not Reportable 03/03/19 08:30 Macrocytosis Not Reportable 03/03/19 08:30 Spherocytes Not Reportable 03/03/19 08:30 Pappenheimer Bodies Not Reportable 03/03/19 08:30 Sickle Cells Not Reportable 03/03/19 08:30 Target Cells Not Reportable 03/03/19 08:30 Tear Drop Cells Not Reportable 03/03/19 08:30 Ovalocytes Not Reportable 03/03/19 08:30 Helmet Cells Not Reportable 03/03/19 08:30 [place] Bodies Not Reportable 03/03/19 08:30 [place] Rings Not Reportable 03/03/19 08:30 [place] Cells Not Reportable 03/03/19 08:30 Bite Cells Not Reportable 03/03/19 08:30 Crenated Cell Not Reportable 03/03/19 08:30 Elliptocytes Not Reportable 03/03/19 08:30 Acanthocytes (Spur) Not Reportable 03/03/19 08:30 Rouleaux Not Reportable 03/03/19 08:30 Hemoglobin C Crystals Not Reportable 03/03/19 08:30 Schistocytes Not Reportable 03/03/19 08:30 Malaria parasites Not Reportable 03/03/19 08:30 [place]o Bodies Not Reportable 03/03/19 08:30 Hem Pathologist Commnt No 03/03/19 08:30 PT 15.5 Sec. (12.2-14.9) H 02/28/19 18:33 INR 1.16 (0.87-1.13) H 02/28/19 18:33 APTT 29.5 Sec. (24.2-36.6) 02/28/19 18:33 Fibrinogen 333 mg/dl (211-480) 03/03/19 13:38 D-Dimer > 83068 ng/mlDDU (0-234) H 03/03/19 13:38 Heparin Anti-Xa Level 0.42 U.I./ml (0.3-0.7) 03/01/19 00:48 POC ABG pH 7.372 (7.35-7.45) 03/07/19 04:32 POC ABG pCO2 32.1 (35-45) L 03/07/19 04:32 POC ABG pO2 83 (80-105) 03/07/19 04:32 POC ABG HCO3 18.6 (22-26 mml/L) 03/07/19 04:32 POC ABG Total CO2 20 (23-27mmol/L) 03/07/19 04:32 POC ABG O2 Sat 96 03/07/19 04:32 POC ABG Base Excess -7 ((-2) - (+3)mmol/L) 03/07/19 04:32 VBG pH 7.379 (7.320-7.420) 02/13/19 14:08 FiO2 35 % 03/07/19 04:32 Sodium 138 mmol/L (137-145) 03/05/19 10:34 Potassium 5.6 mmol/L (3.6-5.0) H 03/05/19 10:34 Chloride 101.8 mmol/L (98-107) 03/05/19 10:34 Carbon Dioxide 21 mmol/L (22-30) L 03/05/19 10:34 Anion Gap 21 mmol/L 03/05/19 10:34 BUN 51 mg/dL (7-17) H 03/05/19 10:34 Creatinine 5.6 mg/dL (0.7-1.2) H 03/05/19 10:34 Estimated GFR 9 ml/min 03/05/19 10:34 BUN/Creatinine Ratio 9 % 03/05/19 10:34 Glucose 285 mg/dL (65-100) H 03/05/19 10:34 POC Glucose 99 (70-105) 03/07/19 07:32 Hemoglobin A1c 9.2 % (4-6) H 02/13/19 18:15 Ketones Quantitative Negative (Negative) 02/13/19 14:08 Lactic Acid 3.50 mmol/L (0.7-2.0) H* 03/04/19 08:08 Calcium 7.3 mg/dL (8.4-10.2) L 03/05/19 10:34 Phosphorus 4.50 mg/dL (2.5-4.5) 03/03/19 08:30 Magnesium 1.60 mg/dL (1.7-2.3) L 03/03/19 08:30 Total Bilirubin 1.30 mg/dL (0.1-1.2) H 03/04/19 05:15 Direct Bilirubin 1.1 mg/dL (0-0.2) H 02/13/19 14:08 Indirect Bilirubin 0.4 mg/dL 02/13/19 14:08 AST 1662 units/L (5-40) H 03/04/19 05:15 ALT 1186 units/L (7-56) H 03/04/19 05:15 Alkaline Phosphatase 250 units/L (35-129) H 03/04/19 05:15 Ammonia 40.0 umol/L (25-60) 02/13/19 14:15 Total Creatine Kinase 165 units/L (30-135) H 02/28/19 18:33 CK-MB (CK-2) 4.9 ng/mL (0.0-4.0) H 02/28/19 18:33 CK-MB (CK-2) Rel Index 2.9 (0-4) 02/28/19 18:33 Troponin T 13.790 ng/mL (0.00-0.029) H* D 03/02/19 04:20 NT-Pro-B Natriuret Pep 6167 pg/mL (0-900) H 02/13/19 14:15 Total Protein 4.3 g/dL (6.3-8.2) L 03/04/19 05:15 Albumin 1.7 g/dL (3.9-5) L 03/04/19 05:15 Albumin/Globulin Ratio 0.7 % 03/04/19 05:15 Triglycerides 329 mg/dL (2-149) H 02/13/19 14:20 Cholesterol 159 mg/dL (50-199) 02/13/19 14:20 LDL Cholesterol Direct 36 mg/dL (50-130) L 02/13/19 14:20 HDL Cholesterol 17 mg/dL (40-59) L 02/13/19 14:20 Cholesterol/HDL Ratio 9.35 % 02/13/19 14:20 Amylase 34 units/L (27-131) 03/01/19 00:48 Urine Color Steffi (Yellow) 03/02/19 20:29 Urine Turbidity Slightly-cloudy (Clear) 03/02/19 20:29 Urine pH 6.0 (5.0-7.0) 03/02/19 20:29 Ur Specific [place] 1.011 (1.003-1.030) 03/02/19 20:29 Urine Protein 100 mg/dl mg/dL (Negative) 03/02/19 20:29 Urine Glucose (UA) 50 mg/dL (Negative) 03/02/19 20:29 Urine Ketones Neg mg/dL (Negative) 03/02/19 20:29 Urine Blood Lg (Negative) 03/02/19 20:29 Urine Nitrite Neg (Negative) 03/02/19 20:29 Urine Bilirubin Neg (Negative) 03/02/19 20:29 Urine Urobilinogen < 2.0 mg/dL (<2.0) 03/02/19 20:29 Ur Leukocyte Esterase Mod (Negative) 03/02/19 20:29 Urine WBC (Auto) 17.0 /HPF (0.0-6.0) H 03/02/19 20:29 Urine RBC (Auto) 29.0 /HPF (0.0-6.0) 03/02/19 20:29 U Epithel Cells (Auto) 1.0 /HPF (0-13.0) 02/14/19 09:07 Urine Bacteria (Auto) 2+ /HPF (Negative) 03/02/19 20:29 Urine WBC Clumps 3+ /HPF 02/14/19 09:07 Ur Transition Epith Cell 1 /HPF 02/14/19 09:07 Urine Mucus Few /HPF 02/14/19 09:07 Urine Yeast (Budding) 3+ /HPF 03/02/19 20:29 Urine Eosinophils None seen (None Seen) 03/01/19 06:50 Vancomycin Trough 14.5 ug/mL (5.0-20.0) 02/15/19 05:32 Random Vancomycin 22.7 ug/mL (0-40.0) 03/04/19 05:15 Urine Opiates Screen Presumptive negative 02/14/19 09:07 Urine Methadone Screen Presumptive negative 02/14/19 09:07 Ur Barbiturates Screen Presumptive negative 02/14/19 09:07 Ur Phencyclidine Scrn Presumptive negative 02/14/19 09:07 Ur Amphetamines Screen Presumptive negative 02/14/19 09:07 U Benzodiazepines Scrn Presumptive negative 02/14/19 09:07 Urine Cocaine Screen Presumptive negative 02/14/19 09:07 U Marijuana (THC) Screen Presumptive negative 02/14/19 09:07 Drugs of Abuse Note Disclamer 02/14/19 09:07 Blood Type B POSITIVE 03/01/19 07:30 Antibody Screen Negative 03/01/19 07:30 Crossmatch See Detail 03/01/19 07:30 Active Medications - Current Medications Current Medications: Generic Name Dose Route Start Last Admin Trade Name Freq PRN Reason Stop Dose Admin Acetaminophen 650 mg 02/13/19 18:03 Tylenol PO Q4H PRN Pain MILD(1-3)/Fever >100.5/MARTÍNEZ Albuterol 2.5 mg 02/22/19 04:53 02/28/19 16:08 Proventil IH 2.5 mg Q6HRT PRN Administration Shortness Of Breath Albuterol/Ipratropium 1 ampul 02/28/19 16:45 03/07/19 02:26 Duoneb *Not For Prn Use* IH 1 ampul Q6HRT RAFAEL Administration Aspirin 325 mg 02/28/19 19:00 03/06/19 10:55 Aspirin PO 325 mg QDAY RAFAEL Administration Dextrose 50 ml 03/02/19 08:04 D50w (25gm) Syringe IV PRN PRN Hypoglycemia Fentanyl 50 mcg 02/28/19 21:01 Sublimaze IV Q10MIN PRN ANALGESIA Furosemide 80 mg 03/03/19 10:00 03/07/19 05:55 Lasix IV 80 mg 0600,1800 RAFAEL Administration Hydralazine HCl 10 mg 03/02/19 15:28 Apresoline IV Q4HR PRN BP >180/110 Hydrophilic Ointment 1 applic 02/28/19 21:29 Vaseline Lip Therapy TP Q2HR PRN Dry Lips Fentanyl Citrate 2,000 mcg in 100 mls @ 5.665 mls/hr 02/28/19 22:00 03/01/19 00:46 Fentanyl Drip Premix IV 0 mcg/kg/hr TITR RAFAEL 0 mls/hr Titration Protocol 1 MCG/KG/HR Dopamine HCl/Dextrose 800 mg in 250 mls @ 4.249 mls/hr 03/01/19 01:35 03/02/19 00:13 Intropin Drip 800 Mg/D5w 250 Ml IV 0 mcg/kg/min TITR RAFAEL 0 mls/hr Titration Protocol 2 MCG/KG/MIN Cefepime HCl 2 gm in 100 mls @ 200 mls/hr 03/01/19 20:00 03/06/19 10:40 Maxipime/Ns 2 Gm/100 Ml IV 200 mls/hr Q24HR RAFAEL Administration Protocol Sodium Chloride 1,000 mls @ 42 mls/hr 03/02/19 10:00 03/04/19 18:29 Nacl 0.9% 1000 Ml IV 42 mls/hr DIRECT RAFAEL Administration Dobutamine HCl/Dextrose 500 mg in 250 mls @ 16.995 mls/hr 03/04/19 11:00 03/04/19 23:30 Dobutrex Drip 500mg/D5w 250ml IV 0 mcg/kg/min DIRECT RAFAEL 0 mls/hr Infusion 5 MCG/KG/MIN Norepinephrine 8 mg/ Sodium 250 mls @ 3.75 mls/hr 03/04/19 21:00 03/07/19 05:25 Chloride IV 16 mcg/min TITR RAFAEL 30 mls/hr Titration Protocol 2 MCG/MIN Insulin Glargine 30 units 03/05/19 14:04 03/06/19 09:54 Lantus SUB-Q 30 units DAILY RAFAEL Administration Insulin Human Lispro 0 unit 03/03/19 12:00 03/07/19 04:37 Humalog SUB-Q Not Given Q4H RAFAEL Protocol Multi-Ingred Cream/Lotion/Oil/Oint 1 applic 03/03/19 10:39 03/03/19 11:07 Artificial Tears Ophth Oint OU 1 applic PRN PRN Administration Dry Eye(s) Ondansetron HCl 4 mg 02/13/19 18:03 Zofran IV Q8H PRN Nausea And Vomiting Pantoprazole Sodium 40 mg 03/02/19 22:00 03/06/19 22:00 Protonix IV 40 mg BID RAFAEL Administration Sodium Chloride 10 ml 02/13/19 22:00 03/06/19 22:47 Sodium Chloride Flush Syringe 10 Ml IV 10 ml BID RAFAEL Administration Sodium Chloride 10 ml 02/13/19 18:03 Sodium Chloride Flush Syringe 10 Ml IV PRN PRN LINE FLUSH Nutrition/Malnutrition Assess - Dietary Evaluation Nutrition/Malnutrition Findings: Nutrition Notes Start: 02/19/19 14:33 Freq: Status: Active Protocol: Document 02/19/19 14:34 RM (Rec: 02/19/19 14:34 [email or web address]) Nutrition Notes Need for Assessment generated from: LOS Initial or Follow up Brief Note Height 5 ft 3 in Weight 110.03 kg [place] Body Weight (kg) 52.27 BMI 43.0 Subjective/Other Information Screened for LOS. PO intake 85% X 2 days. Nutrition Intervention Revisit per MD consult or patient Sign Off request:
--- NOTE | 2019-03-07 10:11 | Progress Note ---
Assessment and Plan Impression: Shock ,on pressors MSOF Acute bilateral cerebellar stroke. Dismal scenario with abscent brain stem reflexes,poor brain perfusion scan. NO neurologic improvement.See neurology evaluation Acute respiratory failure, mechanical ventilation support. Adequate ABGs NSTEMI with low EF Uncontrolled blood sugar. Improved Elevated LFTs with possible ischemic liver improved Pulmonary edema versus acute lung injury. Improved. Suspected aspiration GERALDINE. Still poor output, hyperkalemic. See nephrology recommendations Severe metabolic acidosis, lactic. Improved Sepsis source unknown. Previously with UTI. Completed antibiotics per ID Hyperkalemia. See f/u labs EKOS /arterial Thrombolysis to RLE for RLE ischemia, and R leg 4 compartment fasciotomy Recommendations Poor prognosis at this point with little hope of significant neurological recovery. Hx ammonia level but without this will impact neurological management at this point Kayexalate versus conservative measures. We'll also follow nephrology recommendations but, again, prognosis is poor Continue current ventilatory support Sliding scale insulin, monitor blood sugar Update BMP,LFT's Wean pressors as tolerated No family available at the bedside. Recommend primary to discuss comfort care, DO NOT RESUSCITATE CODE STATUS, with family Critical care time was 31 minutes of [id number] evaluation and coordination of care Subjective Date of service: 03/07/19 Principal diagnosis: anemia Interval history: Intubated and nonresponsive Objective Vital Signs - 12hr 03/06/19 03/06/19 03/06/19 22:15 22:30 22:45 Temperature Pulse Rate 107 H 107 H 89 Pulse Rate [ Anterior Bilateral Throughout] Pulse Rate [ Left Posterior Tibial] Respiratory 20 20 20 Rate Respiratory Rate [Anterior Bilateral Throughout] Blood Pressure 153/58 148/61 149/57 O2 Sat by Pulse 95 94 95 Oximetry 03/06/19 03/06/19 03/06/19 22:46 23:00 23:15 Temperature Pulse Rate 107 H 107 H 88 Pulse Rate [ Anterior Bilateral Throughout] Pulse Rate [ Left Posterior Tibial] Respiratory 20 20 20 Rate Respiratory Rate [Anterior Bilateral Throughout] Blood Pressure 149/57 148/60 159/52 O2 Sat by Pulse 97 95 95 Oximetry 03/06/19 03/06/19 03/06/19 23:30 23:34 23:45 Temperature Pulse Rate 71 107 H 107 H Pulse Rate [ Anterior Bilateral Throughout] Pulse Rate [ Left Posterior Tibial] Respiratory 20 20 Rate Respiratory Rate [Anterior Bilateral Throughout] Blood Pressure 149/61 148/60 164/65 O2 Sat by Pulse 95 97 97 Oximetry 03/07/19 03/07/19 03/07/19 00:00 00:15 00:30 Temperature 100.0 F H Pulse Rate 106 H 82 107 H Pulse Rate [ Anterior Bilateral Throughout] Pulse Rate [ Left Posterior Tibial] Respiratory 20 18 20 Rate Respiratory Rate [Anterior Bilateral Throughout] Blood Pressure 154/62 156/61 158/59 O2 Sat by Pulse 95 95 95 Oximetry 03/07/19 03/07/19 03/07/19 00:45 01:00 01:15 Temperature Pulse Rate 108 H 107 H 99 H Pulse Rate [ Anterior Bilateral Throughout] Pulse Rate [ Left Posterior Tibial] Respiratory 20 19 19 Rate Respiratory Rate [Anterior Bilateral Throughout] Blood Pressure 153/61 154/53 171/47 O2 Sat by Pulse 95 94 95 Oximetry 03/07/19 03/07/19 03/07/19 01:30 01:45 02:00 Temperature Pulse Rate 103 H 103 H 95 H Pulse Rate [ Anterior Bilateral Throughout] Pulse Rate [ Left Posterior Tibial] Respiratory 16 13 11 L Rate Respiratory Rate [Anterior Bilateral Throughout] Blood Pressure 122/60 129/49 143/59 O2 Sat by Pulse 94 94 94 Oximetry 03/07/19 03/07/19 03/07/19 02:15 02:27 02:30 Temperature Pulse Rate 105 H 101 H Pulse Rate [ 104 H Anterior Bilateral Throughout] Pulse Rate [ Left Posterior Tibial] Respiratory 16 10 L Rate Respiratory 20 Rate [Anterior Bilateral Throughout] Blood Pressure 154/48 123/43 O2 Sat by Pulse 94 97 Oximetry 03/07/19 03/07/19 03/07/19 02:42 02:45 03:00 Temperature Pulse Rate 104 H 103 H Pulse Rate [ 106 H Anterior Bilateral Throughout] Pulse Rate [ Left Posterior Tibial] Respiratory 18 12 Rate Respiratory 20 Rate [Anterior Bilateral Throughout] Blood Pressure 137/55 124/46 O2 Sat by Pulse 97 94 Oximetry 03/07/19 03/07/19 03/07/19 03:15 03:30 03:45 Temperature Pulse Rate 104 H 104 H 105 H Pulse Rate [ Anterior Bilateral Throughout] Pulse Rate [ Left Posterior Tibial] Respiratory 18 18 15 Rate Respiratory Rate [Anterior Bilateral Throughout] Blood Pressure 141/58 134/48 147/48 O2 Sat by Pulse 93 94 94 Oximetry 03/07/19 03/07/19 03/07/19 04:00 04:15 04:30 Temperature 100.8 F H Pulse Rate 105 H 106 H 102 H Pulse Rate [ Anterior Bilateral Throughout] Pulse Rate [ 99 H Left Posterior Tibial] Respiratory 19 17 17 Rate Respiratory Rate [Anterior Bilateral Throughout] Blood Pressure 137/55 134/57 150/48 O2 Sat by Pulse 93 94 94 Oximetry 03/07/19 03/07/19 03/07/19 04:32 04:45 05:00 Temperature Pulse Rate 107 H 104 H 102 H Pulse Rate [ Anterior Bilateral Throughout] Pulse Rate [ Left Posterior Tibial] Respiratory 15 21 Rate Respiratory Rate [Anterior Bilateral Throughout] Blood Pressure 134/57 146/50 142/53 O2 Sat by Pulse 96 94 94 Oximetry 03/07/19 03/07/19 03/07/19 05:16 05:30 05:45 Temperature Pulse Rate 104 H 102 H 103 H Pulse Rate [ Anterior Bilateral Throughout] Pulse Rate [ Left Posterior Tibial] Respiratory 21 20 20 Rate Respiratory Rate [Anterior Bilateral Throughout] Blood Pressure 140/51 141/45 125/48 O2 Sat by Pulse 94 93 94 Oximetry 03/07/19 03/07/19 03/07/19 06:00 06:15 06:30 Temperature Pulse Rate 102 H 102 H 103 H Pulse Rate [ Anterior Bilateral Throughout] Pulse Rate [ Left Posterior Tibial] Respiratory 21 20 20 Rate Respiratory Rate [Anterior Bilateral Throughout] Blood Pressure 127/52 124/52 115/56 O2 Sat by Pulse 94 93 95 Oximetry 03/07/19 03/07/19 06:45 08:00 Temperature 101.8 F H Pulse Rate 102 H Pulse Rate [ Anterior Bilateral Throughout] Pulse Rate [ Left Posterior Tibial] Respiratory 19 Rate Respiratory Rate [Anterior Bilateral Throughout] Blood Pressure 112/52 O2 Sat by Pulse 93 Oximetry Constitutional: comatose Eyes: non-icteric, other (pupils equal dilated ,no corneals, + conjunctival swelling) ENT: other (ETT in position) Neck: supple, no JVD (broad neck) Ascultation: Bilateral: clear, diminished breath sounds Cardiovascular: regular rate and rhythm Gastrointestinal: normoactive bowel sounds, non-distended Extremities: other (right lower extremity bandage in place, ) Neurologic: other (non reactive, ) CBC and BMP: 03/06/19 04:30 03/07/19 09:53 ABG, PT/INR, D-dimer: ABG POC ABG pH 7.372 (7.35-7.45) 03/07/19 04:32 POC ABG pCO2 32.1 (35-45) L 03/07/19 04:32 POC ABG pO2 83 (80-105) 03/07/19 04:32 POC ABG HCO3 18.6 (22-26 mml/L) 03/07/19 04:32 POC ABG Total CO2 20 (23-27mmol/L) 03/07/19 04:32 POC ABG O2 Sat 96 03/07/19 04:32 PT/INR, D-dimer PT 15.5 Sec. (12.2-14.9) H 02/28/19 18:33 INR 1.16 (0.87-1.13) H 02/28/19 18:33 D-Dimer > 31427 ng/mlDDU (0-234) H 03/03/19 13:38 Abnormal lab findings: Abnormal Labs 02/13/19 02/13/19 02/13/19 13:55 14:08 14:08 WBC 21.3 H RBC 3.00 L Hgb 8.5 L Hct 26.7 L MCHC RDW 16.4 H Plt Count 528 H Seg Neuts % (Manual) 89.0 H Lymphocytes % (Manual) 4.0 L Monocytes % (Manual) Nucleated RBC % 2.0 H Seg Neutrophils # Man 19.0 H Lymphocytes # (Manual) 0.9 L Monocytes # (Manual) PT INR D-Dimer POC ABG pH POC ABG pCO2 POC ABG pO2 Sodium 129 L Potassium 5.4 H Chloride 91.8 L Carbon Dioxide 17 L BUN 52 H Creatinine 2.5 H Glucose 402 H POC Glucose 389 H Hemoglobin A1c Lactic Acid Calcium Magnesium Total Bilirubin 1.50 H Direct Bilirubin 1.1 H AST 61 H ALT Alkaline Phosphatase 271 H Total Creatine Kinase CK-MB (CK-2) Troponin T NT-Pro-B Natriuret Pep Total Protein Albumin 2.3 L Triglycerides LDL Cholesterol Direct HDL Cholesterol Urine WBC (Auto) Crossmatch 02/13/19 02/13/19 02/13/19 14:15 14:15 14:20 WBC RBC Hgb Hct MCHC RDW Plt Count Seg Neuts % (Manual) Lymphocytes % (Manual) Monocytes % (Manual) Nucleated RBC % Seg Neutrophils # Man Lymphocytes # (Manual) Monocytes # (Manual) PT 15.6 H INR 1.17 H D-Dimer POC ABG pH POC ABG pCO2 POC ABG pO2 Sodium Potassium Chloride Carbon Dioxide BUN Creatinine Glucose POC Glucose Hemoglobin A1c Lactic Acid Calcium Magnesium 1.60 L Total Bilirubin Direct Bilirubin AST ALT Alkaline Phosphatase Total Creatine Kinase 1295 H CK-MB (CK-2) Troponin T 0.072 H NT-Pro-B Natriuret Pep 6167 H Total Protein Albumin Triglycerides 329 H LDL Cholesterol Direct 36 L HDL Cholesterol 17 L Urine WBC (Auto) Crossmatch 02/13/19 02/13/19 02/13/19 15:36 18:15 20:59 WBC RBC Hgb Hct MCHC RDW Plt Count Seg Neuts % (Manual) Lymphocytes % (Manual) Monocytes % (Manual) Nucleated RBC % Seg Neutrophils # Man Lymphocytes # (Manual) Monocytes # (Manual) PT INR D-Dimer POC ABG pH POC ABG pCO2 POC ABG pO2 Sodium Potassium Chloride Carbon Dioxide BUN Creatinine Glucose POC Glucose 293 H 390 H Hemoglobin A1c 9.2 H Lactic Acid Calcium Magnesium Total Bilirubin Direct Bilirubin AST ALT Alkaline Phosphatase Total Creatine Kinase CK-MB (CK-2) Troponin T NT-Pro-B Natriuret Pep Total Protein Albumin Triglycerides LDL Cholesterol Direct HDL Cholesterol Urine WBC (Auto) Crossmatch 02/14/19 02/14/19 02/14/19 07:45 08:15 08:15 WBC 23.2 H RBC 2.89 L Hgb 8.3 L Hct 25.3 L MCHC RDW 16.6 H Plt Count 457 H Seg Neuts % (Manual) 91.0 H Lymphocytes % (Manual) 3.0 L Monocytes % (Manual) Nucleated RBC % Seg Neutrophils # Man 21.1 H Lymphocytes # (Manual) 0.7 L Monocytes # (Manual) 1.2 H PT INR D-Dimer POC ABG pH POC ABG pCO2 POC ABG pO2 Sodium 126 L Potassium 5.3 H Chloride 91.5 L Carbon Dioxide 17 L BUN 65 H Creatinine 2.4 H Glucose 418 H POC Glucose Hemoglobin A1c Lactic Acid Calcium 8.2 L Magnesium 2.90 H Total Bilirubin 1.60 H Direct Bilirubin AST 47 H ALT Alkaline Phosphatase 218 H Total Creatine Kinase CK-MB (CK-2) Troponin T NT-Pro-B Natriuret Pep Total Protein 6.2 L Albumin 2.2 L Triglycerides LDL Cholesterol Direct HDL Cholesterol Urine WBC (Auto) Crossmatch 02/14/19 02/14/19 02/14/19 09:07 09:30 18:53 WBC RBC Hgb Hct MCHC RDW Plt Count Seg Neuts % (Manual) Lymphocytes % (Manual) Monocytes % (Manual) Nucleated RBC % Seg Neutrophils # Man Lymphocytes # (Manual) Monocytes # (Manual) PT INR D-Dimer POC ABG pH POC ABG pCO2 POC ABG pO2 Sodium Potassium Chloride Carbon Dioxide BUN Creatinine Glucose POC Glucose 384 H 353 H Hemoglobin A1c Lactic Acid Calcium Magnesium Total Bilirubin Direct Bilirubin AST ALT Alkaline Phosphatase Total Creatine Kinase CK-MB (CK-2) Troponin T NT-Pro-B Natriuret Pep Total Protein Albumin Triglycerides LDL Cholesterol Direct HDL Cholesterol Urine WBC (Auto) > 182.0 H Crossmatch 02/14/19 02/14/19 02/15/19 21:33 21:40 01:45 WBC RBC Hgb Hct MCHC RDW Plt Count Seg Neuts % (Manual) Lymphocytes % (Manual) Monocytes % (Manual) Nucleated RBC % Seg Neutrophils # Man Lymphocytes # (Manual) Monocytes # (Manual) PT INR D-Dimer POC ABG pH POC ABG pCO2 POC ABG pO2 Sodium Potassium Chloride Carbon Dioxide BUN Creatinine Glucose POC Glucose 404 H 360 H 299 H Hemoglobin A1c Lactic Acid Calcium Magnesium Total Bilirubin Direct Bilirubin AST ALT Alkaline Phosphatase Total Creatine Kinase CK-MB (CK-2) Troponin T NT-Pro-B Natriuret Pep Total Protein Albumin Triglycerides LDL Cholesterol Direct HDL Cholesterol Urine WBC (Auto) Crossmatch 02/15/19 02/15/19 02/15/19 05:32 05:38 11:35 WBC RBC Hgb Hct MCHC RDW Plt Count Seg Neuts % (Manual) Lymphocytes % (Manual) Monocytes % (Manual) Nucleated RBC % Seg Neutrophils # Man Lymphocytes # (Manual) Monocytes # (Manual) PT INR D-Dimer POC ABG pH POC ABG pCO2 POC ABG pO2 Sodium Potassium Chloride Carbon Dioxide BUN Creatinine Glucose POC Glucose 402 H 393 H Hemoglobin A1c Lactic Acid Calcium Magnesium 2.80 H Total Bilirubin Direct Bilirubin AST ALT Alkaline Phosphatase Total Creatine Kinase 448 H CK-MB (CK-2) Troponin T NT-Pro-B Natriuret Pep Total Protein Albumin Triglycerides LDL Cholesterol Direct HDL Cholesterol Urine WBC (Auto) Crossmatch 03/18/19 03/18/19 03/18/19 14:15 14:48 17:21 WBC RBC Hgb Hct MCHC RDW Plt Count Seg Neuts % (Manual) Lymphocytes % (Manual) Monocytes % (Manual) Nucleated RBC % Seg Neutrophils # Man Lymphocytes # (Manual) Monocytes # (Manual) PT INR D-Dimer POC ABG pH POC ABG pCO2 POC ABG pO2 Sodium 128 L Potassium Chloride 92.4 L Carbon Dioxide 21 L BUN 86 H Creatinine 1.9 H Glucose 436 H POC Glucose 386 H 347 H Hemoglobin A1c Lactic Acid Calcium 8.1 L Magnesium Total Bilirubin Direct Bilirubin AST ALT Alkaline Phosphatase Total Creatine Kinase CK-MB (CK-2) Troponin T NT-Pro-B Natriuret Pep Total Protein Albumin Triglycerides LDL Cholesterol Direct HDL Cholesterol Urine WBC (Auto) Crossmatch 02/15/19 02/15/19 02/16/19 22:32 23:51 04:08 WBC RBC Hgb Hct MCHC RDW Plt Count Seg Neuts % (Manual) Lymphocytes % (Manual) Monocytes % (Manual) Nucleated RBC % Seg Neutrophils # Man Lymphocytes # (Manual) Monocytes # (Manual) PT INR D-Dimer POC ABG pH POC ABG pCO2 POC ABG pO2 Sodium Potassium Chloride Carbon Dioxide BUN Creatinine Glucose POC Glucose 272 H 244 H 253 H Hemoglobin A1c Lactic Acid Calcium Magnesium Total Bilirubin Direct Bilirubin AST ALT Alkaline Phosphatase Total Creatine Kinase CK-MB (CK-2) Troponin T NT-Pro-B Natriuret Pep Total Protein Albumin Triglycerides LDL Cholesterol Direct HDL Cholesterol Urine WBC (Auto) Crossmatch 02/16/19 02/16/19 02/16/19 05:29 08:52 11:55 WBC RBC Hgb Hct MCHC RDW Plt Count Seg Neuts % (Manual) Lymphocytes % (Manual) Monocytes % (Manual) Nucleated RBC % Seg Neutrophils # Man Lymphocytes # (Manual) Monocytes # (Manual) PT INR D-Dimer POC ABG pH POC ABG pCO2 POC ABG pO2 Sodium Potassium Chloride Carbon Dioxide BUN Creatinine Glucose POC Glucose 262 H 313 H Hemoglobin A1c Lactic Acid Calcium Magnesium Total Bilirubin Direct Bilirubin AST ALT Alkaline Phosphatase Total Creatine Kinase 200 H CK-MB (CK-2) Troponin T NT-Pro-B Natriuret Pep Total Protein Albumin Triglycerides LDL Cholesterol Direct HDL Cholesterol Urine WBC (Auto) Crossmatch 02/16/19 02/16/19 02/17/19 16:20 22:38 00:15 WBC RBC Hgb Hct MCHC RDW Plt Count Seg Neuts % (Manual) Lymphocytes % (Manual) Monocytes % (Manual) Nucleated RBC % Seg Neutrophils # Man Lymphocytes # (Manual) Monocytes # (Manual) PT INR D-Dimer POC ABG pH POC ABG pCO2 POC ABG pO2 Sodium 131 L Potassium Chloride 95.7 L Carbon Dioxide 21 L BUN 70 H Creatinine 1.3 H Glucose 121 H POC Glucose 146 H 125 H Hemoglobin A1c Lactic Acid Calcium 8.0 L Magnesium Total Bilirubin Direct Bilirubin AST ALT Alkaline Phosphatase Total Creatine Kinase CK-MB (CK-2) Troponin T NT-Pro-B Natriuret Pep Total Protein Albumin Triglycerides LDL Cholesterol Direct HDL Cholesterol Urine WBC (Auto) Crossmatch 02/17/19 02/17/19 02/17/19 03:49 07:32 10:41 WBC 13.3 H RBC 2.92 L Hgb 8.2 L Hct 24.6 L MCHC RDW 16.2 H Plt Count Seg Neuts % (Manual) 85.0 H Lymphocytes % (Manual) 8.0 L Monocytes % (Manual) Nucleated RBC % Seg Neutrophils # Man 11.3 H Lymphocytes # (Manual) 1.1 L Monocytes # (Manual) PT INR D-Dimer POC ABG pH POC ABG pCO2 POC ABG pO2 Sodium 129 L Potassium 5.2 H D Chloride 95.9 L Carbon Dioxide 18 L BUN 69 H Creatinine 1.4 H Glucose POC Glucose 146 H Hemoglobin A1c Lactic Acid Calcium 8.1 L Magnesium Total Bilirubin Direct Bilirubin AST ALT Alkaline Phosphatase Total Creatine Kinase CK-MB (CK-2) Troponin T NT-Pro-B Natriuret Pep Total Protein Albumin Triglycerides LDL Cholesterol Direct HDL Cholesterol Urine WBC (Auto) Crossmatch 02/17/19 02/17/19 02/18/19 11:14 16:18 01:14 WBC 14.6 H RBC 2.53 L Hgb 7.1 L Hct 21.7 L MCHC RDW 16.6 H Plt Count Seg Neuts % (Manual) 72.0 H Lymphocytes % (Manual) 8.0 L Monocytes % (Manual) 11.0 H Nucleated RBC % Seg Neutrophils # Man 10.5 H Lymphocytes # (Manual) Monocytes # (Manual) 1.6 H PT INR D-Dimer POC ABG pH POC ABG pCO2 POC ABG pO2 Sodium Potassium Chloride Carbon Dioxide BUN Creatinine Glucose POC Glucose 219 H 176 H Hemoglobin A1c Lactic Acid Calcium Magnesium Total Bilirubin Direct Bilirubin AST ALT Alkaline Phosphatase Total Creatine Kinase CK-MB (CK-2) Troponin T NT-Pro-B Natriuret Pep Total Protein Albumin Triglycerides LDL Cholesterol Direct HDL Cholesterol Urine WBC (Auto) Crossmatch 02/18/19 02/18/19 02/18/19 04:25 11:35 11:57 WBC RBC Hgb Hct MCHC RDW Plt Count Seg Neuts % (Manual) Lymphocytes % (Manual) Monocytes % (Manual) Nucleated RBC % Seg Neutrophils # Man Lymphocytes # (Manual) Monocytes # (Manual) PT INR D-Dimer POC ABG pH POC ABG pCO2 POC ABG pO2 Sodium 130 L Potassium Chloride 94.7 L Carbon Dioxide BUN 53 H Creatinine Glucose POC Glucose 197 H Hemoglobin A1c Lactic Acid Calcium 7.8 L Magnesium Total Bilirubin Direct Bilirubin AST ALT Alkaline Phosphatase Total Creatine Kinase CK-MB (CK-2) Troponin T NT-Pro-B Natriuret Pep Total Protein Albumin Triglycerides LDL Cholesterol Direct HDL Cholesterol Urine WBC (Auto) Crossmatch See Detail 02/18/19 02/18/19 02/19/19 16:32 21:26 07:01 WBC RBC Hgb Hct MCHC RDW Plt Count Seg Neuts % (Manual) Lymphocytes % (Manual) Monocytes % (Manual) Nucleated RBC % Seg Neutrophils # Man Lymphocytes # (Manual) Monocytes # (Manual) PT INR D-Dimer POC ABG pH POC ABG pCO2 POC ABG pO2 Sodium 135 L Potassium Chloride Carbon Dioxide BUN 36 H Creatinine Glucose POC Glucose 108 H 107 H Hemoglobin A1c Lactic Acid Calcium 7.9 L Magnesium Total Bilirubin Direct Bilirubin AST ALT Alkaline Phosphatase Total Creatine Kinase CK-MB (CK-2) Troponin T NT-Pro-B Natriuret Pep Total Protein Albumin Triglycerides LDL Cholesterol Direct HDL Cholesterol Urine WBC (Auto) Crossmatch 02/19/19 02/19/19 02/19/19 11:11 13:46 15:19 WBC 12.0 H RBC 2.63 L Hgb 7.5 L Hct 23.3 L MCHC RDW 16.6 H Plt Count Seg Neuts % (Manual) 74.0 H Lymphocytes % (Manual) Monocytes % (Manual) Nucleated RBC % Seg Neutrophils # Man 8.9 H Lymphocytes # (Manual) Monocytes # (Manual) PT INR D-Dimer POC ABG pH POC ABG pCO2 POC ABG pO2 Sodium Potassium Chloride Carbon Dioxide BUN Creatinine Glucose POC Glucose 125 H 181 H Hemoglobin A1c Lactic Acid Calcium Magnesium Total Bilirubin Direct Bilirubin AST ALT Alkaline Phosphatase Total Creatine Kinase CK-MB (CK-2) Troponin T NT-Pro-B Natriuret Pep Total Protein Albumin Triglycerides LDL Cholesterol Direct HDL Cholesterol Urine WBC (Auto) Crossmatch 02/19/19 02/20/19 02/20/19 22:04 02:47 05:25 WBC RBC Hgb Hct MCHC RDW Plt Count Seg Neuts % (Manual) Lymphocytes % (Manual) Monocytes % (Manual) Nucleated RBC % Seg Neutrophils # Man Lymphocytes # (Manual) Monocytes # (Manual) PT INR D-Dimer POC ABG pH POC ABG pCO2 POC ABG pO2 Sodium Potassium Chloride Carbon Dioxide BUN Creatinine Glucose POC Glucose 298 H 136 H 106 H Hemoglobin A1c Lactic Acid Calcium Magnesium Total Bilirubin Direct Bilirubin AST ALT Alkaline Phosphatase Total Creatine Kinase CK-MB (CK-2) Troponin T NT-Pro-B Natriuret Pep Total Protein Albumin Triglycerides LDL Cholesterol Direct HDL Cholesterol Urine WBC (Auto) Crossmatch 02/20/19 02/20/19 02/20/19 06:07 07:55 12:17 WBC RBC Hgb Hct MCHC RDW Plt Count Seg Neuts % (Manual) Lymphocytes % (Manual) Monocytes % (Manual) Nucleated RBC % Seg Neutrophils # Man Lymphocytes # (Manual) Monocytes # (Manual) PT INR D-Dimer POC ABG pH POC ABG pCO2 POC ABG pO2 Sodium Potassium Chloride Carbon Dioxide BUN 23 H Creatinine Glucose 105 H POC Glucose 112 H 195 H Hemoglobin A1c Lactic Acid Calcium 7.4 L Magnesium Total Bilirubin Direct Bilirubin AST ALT Alkaline Phosphatase Total Creatine Kinase CK-MB (CK-2) Troponin T NT-Pro-B Natriuret Pep Total Protein Albumin Triglycerides LDL Cholesterol Direct HDL Cholesterol Urine WBC (Auto) Crossmatch 02/20/19 02/20/19 02/21/19 16:34 22:23 11:35 WBC RBC Hgb Hct MCHC RDW Plt Count Seg Neuts % (Manual) Lymphocytes % (Manual) Monocytes % (Manual) Nucleated RBC % Seg Neutrophils # Man Lymphocytes # (Manual) Monocytes # (Manual) PT INR D-Dimer POC ABG pH POC ABG pCO2 POC ABG pO2 Sodium Potassium Chloride Carbon Dioxide BUN Creatinine Glucose POC Glucose 117 H 153 H 142 H Hemoglobin A1c Lactic Acid Calcium Magnesium Total Bilirubin Direct Bilirubin AST ALT Alkaline Phosphatase Total Creatine Kinase CK-MB (CK-2) Troponin T NT-Pro-B Natriuret Pep Total Protein Albumin Triglycerides LDL Cholesterol Direct HDL Cholesterol Urine WBC (Auto) Crossmatch 02/21/19 02/21/19 02/21/19 11:38 17:12 19:19 WBC RBC Hgb Hct MCHC RDW Plt Count Seg Neuts % (Manual) Lymphocytes % (Manual) Monocytes % (Manual) Nucleated RBC % Seg Neutrophils # Man Lymphocytes # (Manual) Monocytes # (Manual) PT INR D-Dimer POC ABG pH POC ABG pCO2 POC ABG pO2 Sodium 135 L Potassium Chloride Carbon Dioxide 18 L BUN Creatinine Glucose 129 H POC Glucose 61 L 135 H Hemoglobin A1c Lactic Acid Calcium 7.4 L Magnesium Total Bilirubin Direct Bilirubin AST ALT Alkaline Phosphatase Total Creatine Kinase CK-MB (CK-2) Troponin T NT-Pro-B Natriuret Pep Total Protein Albumin Triglycerides LDL Cholesterol Direct HDL Cholesterol Urine WBC (Auto) Crossmatch 02/21/19 02/22/19 02/22/19 21:24 04:18 04:49 WBC RBC Hgb Hct MCHC RDW Plt Count Seg Neuts % (Manual) Lymphocytes % (Manual) Monocytes % (Manual) Nucleated RBC % Seg Neutrophils # Man Lymphocytes # (Manual) Monocytes # (Manual) PT INR D-Dimer POC ABG pH 7.459 H POC ABG pCO2 POC ABG pO2 Sodium Potassium Chloride Carbon Dioxide BUN Creatinine Glucose POC Glucose 146 H 186 H Hemoglobin A1c Lactic Acid Calcium Magnesium Total Bilirubin Direct Bilirubin AST ALT Alkaline Phosphatase Total Creatine Kinase CK-MB (CK-2) Troponin T NT-Pro-B Natriuret Pep Total Protein Albumin Triglycerides LDL Cholesterol Direct HDL Cholesterol Urine WBC (Auto) Crossmatch 02/22/19 02/22/19 02/22/19 07:56 08:26 08:26 WBC RBC Hgb Hct MCHC RDW Plt Count Seg Neuts % (Manual) Lymphocytes % (Manual) Monocytes % (Manual) Nucleated RBC % Seg Neutrophils # Man Lymphocytes # (Manual) Monocytes # (Manual) PT INR D-Dimer 1481.17 H POC ABG pH POC ABG pCO2 POC ABG pO2 Sodium 133 L Potassium 5.3 H Chloride Carbon Dioxide 19 L BUN Creatinine Glucose 216 H POC Glucose 239 H Hemoglobin A1c Lactic Acid Calcium 7.7 L Magnesium Total Bilirubin Direct Bilirubin AST ALT Alkaline Phosphatase Total Creatine Kinase CK-MB (CK-2) Troponin T NT-Pro-B Natriuret Pep Total Protein Albumin Triglycerides LDL Cholesterol Direct HDL Cholesterol Urine WBC (Auto) Crossmatch 02/22/19 02/22/19 02/22/19 11:59 17:06 22:00 WBC RBC Hgb Hct MCHC RDW Plt Count Seg Neuts % (Manual) Lymphocytes % (Manual) Monocytes % (Manual) Nucleated RBC % Seg Neutrophils # Man Lymphocytes # (Manual) Monocytes # (Manual) PT INR D-Dimer POC ABG pH POC ABG pCO2 POC ABG pO2 Sodium Potassium Chloride Carbon Dioxide BUN Creatinine Glucose POC Glucose 238 H 61 L 174 H Hemoglobin A1c Lactic Acid Calcium Magnesium Total Bilirubin Direct Bilirubin AST ALT Alkaline Phosphatase Total Creatine Kinase CK-MB (CK-2) Troponin T NT-Pro-B Natriuret Pep Total Protein Albumin Triglycerides LDL Cholesterol Direct HDL Cholesterol Urine WBC (Auto) Crossmatch 02/23/19 02/23/19 02/23/19 06:12 07:50 21:43 WBC RBC Hgb Hct MCHC RDW Plt Count Seg Neuts % (Manual) Lymphocytes % (Manual) Monocytes % (Manual) Nucleated RBC % Seg Neutrophils # Man Lymphocytes # (Manual) Monocytes # (Manual) PT INR D-Dimer POC ABG pH POC ABG pCO2 POC ABG pO2 Sodium Potassium Chloride Carbon Dioxide 19 L BUN 18 H Creatinine Glucose 52 L POC Glucose 55 L 107 H Hemoglobin A1c Lactic Acid Calcium 8.3 L Magnesium Total Bilirubin Direct Bilirubin AST ALT Alkaline Phosphatase Total Creatine Kinase CK-MB (CK-2) Troponin T NT-Pro-B Natriuret Pep Total Protein Albumin Triglycerides LDL Cholesterol Direct HDL Cholesterol Urine WBC (Auto) Crossmatch 02/24/19 02/24/19 02/24/19 07:29 11:29 16:05 WBC RBC Hgb Hct MCHC RDW Plt Count Seg Neuts % (Manual) Lymphocytes % (Manual) Monocytes % (Manual) Nucleated RBC % Seg Neutrophils # Man Lymphocytes # (Manual) Monocytes # (Manual) PT INR D-Dimer POC ABG pH POC ABG pCO2 POC ABG pO2 Sodium Potassium Chloride Carbon Dioxide BUN Creatinine Glucose POC Glucose 176 H 253 H 179 H Hemoglobin A1c Lactic Acid Calcium Magnesium Total Bilirubin Direct Bilirubin AST ALT Alkaline Phosphatase Total Creatine Kinase CK-MB (CK-2) Troponin T NT-Pro-B Natriuret Pep Total Protein Albumin Triglycerides LDL Cholesterol Direct HDL Cholesterol Urine WBC (Auto) Crossmatch 02/24/19 02/25/19 02/25/19 21:50 07:57 11:54 WBC RBC Hgb Hct MCHC RDW Plt Count Seg Neuts % (Manual) Lymphocytes % (Manual) Monocytes % (Manual) Nucleated RBC % Seg Neutrophils # Man Lymphocytes # (Manual) Monocytes # (Manual) PT INR D-Dimer POC ABG pH POC ABG pCO2 POC ABG pO2 Sodium Potassium Chloride Carbon Dioxide BUN Creatinine Glucose POC Glucose 200 H 249 H 260 H Hemoglobin A1c Lactic Acid Calcium Magnesium Total Bilirubin Direct Bilirubin AST ALT Alkaline Phosphatase Total Creatine Kinase CK-MB (CK-2) Troponin T NT-Pro-B Natriuret Pep Total Protein Albumin Triglycerides LDL Cholesterol Direct HDL Cholesterol Urine WBC (Auto) Crossmatch 02/25/19 02/25/19 02/26/19 16:34 21:52 07:54 WBC RBC Hgb Hct MCHC RDW Plt Count Seg Neuts % (Manual) Lymphocytes % (Manual) Monocytes % (Manual) Nucleated RBC % Seg Neutrophils # Man Lymphocytes # (Manual) Monocytes # (Manual) PT INR D-Dimer POC ABG pH POC ABG pCO2 POC ABG pO2 Sodium Potassium Chloride Carbon Dioxide BUN Creatinine Glucose POC Glucose 198 H 254 H 213 H Hemoglobin A1c Lactic Acid Calcium Magnesium Total Bilirubin Direct Bilirubin AST ALT Alkaline Phosphatase Total Creatine Kinase CK-MB (CK-2) Troponin T NT-Pro-B Natriuret Pep Total Protein Albumin Triglycerides LDL Cholesterol Direct HDL Cholesterol Urine WBC (Auto) Crossmatch 02/26/19 02/26/19 02/26/19 11:49 16:00 22:00 WBC RBC Hgb Hct MCHC RDW Plt Count Seg Neuts % (Manual) Lymphocytes % (Manual) Monocytes % (Manual) Nucleated RBC % Seg Neutrophils # Man Lymphocytes # (Manual) Monocytes # (Manual) PT INR D-Dimer POC ABG pH POC ABG pCO2 POC ABG pO2 Sodium Potassium Chloride Carbon Dioxide BUN Creatinine Glucose POC Glucose 306 H 183 H 162 H Hemoglobin A1c Lactic Acid Calcium Magnesium Total Bilirubin Direct Bilirubin AST ALT Alkaline Phosphatase Total Creatine Kinase CK-MB (CK-2) Troponin T NT-Pro-B Natriuret Pep Total Protein Albumin Triglycerides LDL Cholesterol Direct HDL Cholesterol Urine WBC (Auto) Crossmatch 02/27/19 02/27/19 02/27/19 07:44 11:11 16:57 WBC RBC Hgb Hct MCHC RDW Plt Count Seg Neuts % (Manual) Lymphocytes % (Manual) Monocytes % (Manual) Nucleated RBC % Seg Neutrophils # Man Lymphocytes # (Manual) Monocytes # (Manual) PT INR D-Dimer POC ABG pH POC ABG pCO2 POC ABG pO2 Sodium Potassium Chloride Carbon Dioxide BUN Creatinine Glucose POC Glucose 171 H 217 H 199 H Hemoglobin A1c Lactic Acid Calcium Magnesium Total Bilirubin Direct Bilirubin AST ALT Alkaline Phosphatase Total Creatine Kinase CK-MB (CK-2) Troponin T NT-Pro-B Natriuret Pep Total Protein Albumin Triglycerides LDL Cholesterol Direct HDL Cholesterol Urine WBC (Auto) Crossmatch 02/27/19 02/28/19 02/28/19 21:48 07:36 11:41 WBC RBC Hgb Hct MCHC RDW Plt Count Seg Neuts % (Manual) Lymphocytes % (Manual) Monocytes % (Manual) Nucleated RBC % Seg Neutrophils # Man Lymphocytes # (Manual) Monocytes # (Manual) PT INR D-Dimer POC ABG pH POC ABG pCO2 POC ABG pO2 Sodium Potassium Chloride Carbon Dioxide BUN Creatinine Glucose POC Glucose 161 H 148 H 244 H Hemoglobin A1c Lactic Acid Calcium Magnesium Total Bilirubin Direct Bilirubin AST ALT Alkaline Phosphatase Total Creatine Kinase CK-MB (CK-2) Troponin T NT-Pro-B Natriuret Pep Total Protein Albumin Triglycerides LDL Cholesterol Direct HDL Cholesterol Urine WBC (Auto) Crossmatch 02/28/19 02/28/19 02/28/19 16:32 16:53 17:28 WBC RBC Hgb Hct MCHC RDW Plt Count Seg Neuts % (Manual) Lymphocytes % (Manual) Monocytes % (Manual) Nucleated RBC % Seg Neutrophils # Man Lymphocytes # (Manual) Monocytes # (Manual) PT INR D-Dimer POC ABG pH POC ABG pCO2 POC ABG pO2 53 L Sodium Potassium Chloride Carbon Dioxide BUN Creatinine Glucose POC Glucose 283 H Hemoglobin A1c Lactic Acid Calcium Magnesium Total Bilirubin Direct Bilirubin AST ALT Alkaline Phosphatase Total Creatine Kinase CK-MB (CK-2) Troponin T 0.119 H* NT-Pro-B Natriuret Pep Total Protein Albumin Triglycerides LDL Cholesterol Direct HDL Cholesterol Urine WBC (Auto) Crossmatch 02/28/19 02/28/19 02/28/19 18:33 18:33 18:33 WBC 11.5 H RBC 2.35 L Hgb 6.5 L Hct 21.2 L MCHC RDW 17.6 H Plt Count 631 H Seg Neuts % (Manual) 87.0 H Lymphocytes % (Manual) 9.0 L Monocytes % (Manual) Nucleated RBC % Seg Neutrophils # Man 10.0 H Lymphocytes # (Manual) 1.0 L Monocytes # (Manual) PT 15.5 H INR 1.16 H D-Dimer POC ABG pH POC ABG pCO2 POC ABG pO2 Sodium Potassium Chloride Carbon Dioxide BUN Creatinine Glucose POC Glucose Hemoglobin A1c Lactic Acid Calcium Magnesium Total Bilirubin Direct Bilirubin AST ALT Alkaline Phosphatase Total Creatine Kinase 165 H CK-MB (CK-2) 4.9 H Troponin T 0.123 H* NT-Pro-B Natriuret Pep Total Protein Albumin Triglycerides LDL Cholesterol Direct HDL Cholesterol Urine WBC (Auto) Crossmatch 02/28/19 02/28/19 02/28/19 18:33 19:55 21:39 WBC RBC Hgb Hct MCHC RDW Plt Count Seg Neuts % (Manual) Lymphocytes % (Manual) Monocytes % (Manual) Nucleated RBC % Seg Neutrophils # Man Lymphocytes # (Manual) Monocytes # (Manual) PT INR D-Dimer POC ABG pH 7.319 L POC ABG pCO2 POC ABG pO2 196 H Sodium 136 L Potassium 5.6 H Chloride Carbon Dioxide 14 L BUN 21 H Creatinine 1.4 H Glucose 274 H POC Glucose 277 H Hemoglobin A1c Lactic Acid Calcium 8.3 L Magnesium Total Bilirubin Direct Bilirubin AST ALT Alkaline Phosphatase 165 H Total Creatine Kinase CK-MB (CK-2) Troponin T NT-Pro-B Natriuret Pep Total Protein Albumin 2.7 L Triglycerides LDL Cholesterol Direct HDL Cholesterol Urine WBC (Auto) Crossmatch 02/28/19 02/28/19 02/28/19 22:46 22:47 22:59 WBC RBC Hgb Hct MCHC RDW Plt Count Seg Neuts % (Manual) Lymphocytes % (Manual) Monocytes % (Manual) Nucleated RBC % Seg Neutrophils # Man Lymphocytes # (Manual) Monocytes # (Manual) PT INR D-Dimer POC ABG pH 7.068 L POC ABG pCO2 34.7 L POC ABG pO2 280 H Sodium Potassium Chloride Carbon Dioxide BUN Creatinine Glucose POC Glucose Hemoglobin A1c Lactic Acid 16.50 H* Calcium Magnesium Total Bilirubin Direct Bilirubin AST ALT Alkaline Phosphatase Total Creatine Kinase CK-MB (CK-2) Troponin T 0.595 H* D NT-Pro-B Natriuret Pep Total Protein Albumin Triglycerides LDL Cholesterol Direct HDL Cholesterol Urine WBC (Auto) Crossmatch 02/28/19 03/01/19 03/01/19 22:59 00:47 00:48 WBC RBC Hgb Hct MCHC RDW Plt Count Seg Neuts % (Manual) Lymphocytes % (Manual) Monocytes % (Manual) Nucleated RBC % Seg Neutrophils # Man Lymphocytes # (Manual) Monocytes # (Manual) PT INR D-Dimer POC ABG pH POC ABG pCO2 POC ABG pO2 Sodium Potassium 7.0 H* D 7.3 H* Chloride 97.5 L Carbon Dioxide 10 L 7 L* BUN 22 H 23 H Creatinine 1.7 H 2.0 H Glucose 223 H 222 H POC Glucose Hemoglobin A1c Lactic Acid 19.80 H* Calcium 8.1 L Magnesium Total Bilirubin Direct Bilirubin AST 107 H 223 H ALT Alkaline Phosphatase 208 H 209 H Total Creatine Kinase CK-MB (CK-2) Troponin T NT-Pro-B Natriuret Pep Total Protein 5.9 L Albumin 2.7 L 2.5 L Triglycerides LDL Cholesterol Direct HDL Cholesterol Urine WBC (Auto) Crossmatch 03/01/19 03/01/19 03/01/19 04:07 04:07 04:07 WBC RBC Hgb Hct MCHC RDW Plt Count Seg Neuts % (Manual) Lymphocytes % (Manual) Monocytes % (Manual) Nucleated RBC % Seg Neutrophils # Man Lymphocytes # (Manual) Monocytes # (Manual) PT INR D-Dimer POC ABG pH POC ABG pCO2 POC ABG pO2 Sodium Potassium 6.1 H* Chloride Carbon Dioxide 6 L* BUN 22 H Creatinine 2.0 H Glucose 269 H POC Glucose Hemoglobin A1c Lactic Acid 22.60 H* Calcium 6.9 L Magnesium Total Bilirubin Direct Bilirubin AST 1971 H ALT 686 H Alkaline Phosphatase 193 H Total Creatine Kinase CK-MB (CK-2) Troponin T 2.910 H* D NT-Pro-B Natriuret Pep Total Protein 4.6 L D Albumin 2.0 L Triglycerides LDL Cholesterol Direct HDL Cholesterol Urine WBC (Auto) Crossmatch 03/01/19 03/01/19 03/01/19 04:45 05:03 05:38 WBC RBC 1.78 L Hgb 5.0 L* Hct 17.4 L* MCHC 29 L RDW 18.3 H Plt Count Seg Neuts % (Manual) 78.0 H Lymphocytes % (Manual) Monocytes % (Manual) Nucleated RBC % 2.0 H Seg Neutrophils # Man Lymphocytes # (Manual) Monocytes # (Manual) PT INR D-Dimer POC ABG pH 6.806 L 6.895 L POC ABG pCO2 POC ABG pO2 54 L 213 H Sodium Potassium Chloride Carbon Dioxide BUN Creatinine Glucose POC Glucose Hemoglobin A1c Lactic Acid Calcium Magnesium Total Bilirubin Direct Bilirubin AST ALT Alkaline Phosphatase Total Creatine Kinase CK-MB (CK-2) Troponin T NT-Pro-B Natriuret Pep Total Protein Albumin Triglycerides LDL Cholesterol Direct HDL Cholesterol Urine WBC (Auto) Crossmatch 03/01/19 03/01/19 03/01/19 05:38 06:03 07:29 WBC RBC Hgb Hct MCHC RDW Plt Count Seg Neuts % (Manual) Lymphocytes % (Manual) Monocytes % (Manual) Nucleated RBC % Seg Neutrophils # Man Lymphocytes # (Manual) Monocytes # (Manual) PT INR D-Dimer POC ABG pH POC ABG pCO2 POC ABG pO2 Sodium Potassium Chloride Carbon Dioxide BUN Creatinine Glucose POC Glucose 310 H Hemoglobin A1c Lactic Acid 23.40 H* 24.70 H* Calcium Magnesium Total Bilirubin Direct Bilirubin AST ALT Alkaline Phosphatase Total Creatine Kinase CK-MB (CK-2) Troponin T NT-Pro-B Natriuret Pep Total Protein Albumin Triglycerides LDL Cholesterol Direct HDL Cholesterol Urine WBC (Auto) Crossmatch 03/01/19 03/01/19 03/01/19 07:30 11:38 12:02 WBC RBC Hgb Hct MCHC RDW Plt Count Seg Neuts % (Manual) Lymphocytes % (Manual) Monocytes % (Manual) Nucleated RBC % Seg Neutrophils # Man Lymphocytes # (Manual) Monocytes # (Manual) PT INR D-Dimer POC ABG pH POC ABG pCO2 POC ABG pO2 Sodium Potassium 6.3 H* Chloride Carbon Dioxide BUN Creatinine Glucose POC Glucose 326 H Hemoglobin A1c Lactic Acid Calcium Magnesium Total Bilirubin Direct Bilirubin AST ALT Alkaline Phosphatase Total Creatine Kinase CK-MB (CK-2) Troponin T NT-Pro-B Natriuret Pep Total Protein Albumin Triglycerides LDL Cholesterol Direct HDL Cholesterol Urine WBC (Auto) Crossmatch See Detail 03/01/19 03/01/19 03/01/19 12:30 17:34 18:26 WBC RBC Hgb Hct MCHC RDW Plt Count Seg Neuts % (Manual) Lymphocytes % (Manual) Monocytes % (Manual) Nucleated RBC % Seg Neutrophils # Man Lymphocytes # (Manual) Monocytes # (Manual) PT INR D-Dimer POC ABG pH 6.960 L 7.101 L POC ABG pCO2 32.7 L POC ABG pO2 117 H 109 H Sodium Potassium Chloride Carbon Dioxide BUN Creatinine Glucose POC Glucose 434 H Hemoglobin A1c Lactic Acid Calcium Magnesium Total Bilirubin Direct Bilirubin AST ALT Alkaline Phosphatase Total Creatine Kinase CK-MB (CK-2) Troponin T NT-Pro-B Natriuret Pep Total Protein Albumin Triglycerides LDL Cholesterol Direct HDL Cholesterol Urine WBC (Auto) Crossmatch 03/01/19 03/01/19 03/01/19 20:24 20:24 21:39 WBC RBC Hgb 8.9 L D Hct 28.2 L D MCHC RDW Plt Count Seg Neuts % (Manual) Lymphocytes % (Manual) Monocytes % (Manual) Nucleated RBC % Seg Neutrophils # Man Lymphocytes # (Manual) Monocytes # (Manual) PT INR D-Dimer POC ABG pH POC ABG pCO2 POC ABG pO2 Sodium Potassium 6.2 H* Chloride Carbon Dioxide BUN Creatinine Glucose POC Glucose > 500 H Hemoglobin A1c Lactic Acid Calcium Magnesium Total Bilirubin Direct Bilirubin AST ALT Alkaline Phosphatase Total Creatine Kinase CK-MB (CK-2) Troponin T NT-Pro-B Natriuret Pep Total Protein Albumin Triglycerides LDL Cholesterol Direct HDL Cholesterol Urine WBC (Auto) Crossmatch 03/01/19 03/02/19 03/02/19 22:45 01:42 04:20 WBC 13.0 H RBC 2.47 L Hgb 7.0 L Hct 22.8 L MCHC RDW 18.4 H Plt Count Seg Neuts % (Manual) 95.0 H Lymphocytes % (Manual) 0 L Monocytes % (Manual) Nucleated RBC % 8.0 H Seg Neutrophils # Man 12.4 H Lymphocytes # (Manual) 0.0 L Monocytes # (Manual) PT INR D-Dimer POC ABG pH POC ABG pCO2 POC ABG pO2 Sodium Potassium 5.9 H Chloride 93.0 L Carbon Dioxide 16 L D BUN 28 H Creatinine 2.8 H Glucose 617 H* POC Glucose > 500 H Hemoglobin A1c Lactic Acid Calcium 6.2 L Magnesium Total Bilirubin Direct Bilirubin AST ALT Alkaline Phosphatase Total Creatine Kinase CK-MB (CK-2) Troponin T NT-Pro-B Natriuret Pep Total Protein Albumin Triglycerides LDL Cholesterol Direct HDL Cholesterol Urine WBC (Auto) Crossmatch 03/02/19 03/02/19 03/02/19 04:20 05:04 05:25 WBC RBC Hgb Hct MCHC RDW Plt Count Seg Neuts % (Manual) Lymphocytes % (Manual) Monocytes % (Manual) Nucleated RBC % Seg Neutrophils # Man Lymphocytes # (Manual) Monocytes # (Manual) PT INR D-Dimer POC ABG pH POC ABG pCO2 33.8 L POC ABG pO2 Sodium 132 L Potassium Chloride 85.5 L Carbon Dioxide 21 L BUN 27 H Creatinine 2.8 H Glucose 928 H* POC Glucose > 500 H Hemoglobin A1c Lactic Acid Calcium 6.1 L Magnesium Total Bilirubin 2.00 H Direct Bilirubin AST 7855 H ALT 2210 H Alkaline Phosphatase 238 H Total Creatine Kinase CK-MB (CK-2) Troponin T 13.790 H* D NT-Pro-B Natriuret Pep Total Protein 4.0 L Albumin 1.7 L Triglycerides LDL Cholesterol Direct HDL Cholesterol Urine WBC (Auto) Crossmatch 03/02/19 03/02/19 03/02/19 09:11 10:10 11:19 WBC RBC Hgb Hct MCHC RDW Plt Count Seg Neuts % (Manual) Lymphocytes % (Manual) Monocytes % (Manual) Nucleated RBC % Seg Neutrophils # Man Lymphocytes # (Manual) Monocytes # (Manual) PT INR D-Dimer POC ABG pH POC ABG pCO2 POC ABG pO2 Sodium Potassium Chloride Carbon Dioxide BUN Creatinine Glucose POC Glucose 494 H > 500 H 413 H Hemoglobin A1c Lactic Acid Calcium Magnesium Total Bilirubin Direct Bilirubin AST ALT Alkaline Phosphatase Total Creatine Kinase CK-MB (CK-2) Troponin T NT-Pro-B Natriuret Pep Total Protein Albumin Triglycerides LDL Cholesterol Direct HDL Cholesterol Urine WBC (Auto) Crossmatch 03/02/19 03/02/19 03/02/19 12:05 13:00 14:00 WBC RBC Hgb Hct MCHC RDW Plt Count Seg Neuts % (Manual) Lymphocytes % (Manual) Monocytes % (Manual) Nucleated RBC % Seg Neutrophils # Man Lymphocytes # (Manual) Monocytes # (Manual) PT INR D-Dimer POC ABG pH POC ABG pCO2 POC ABG pO2 Sodium Potassium Chloride Carbon Dioxide BUN Creatinine Glucose POC Glucose 400 H 391 H 415 H Hemoglobin A1c Lactic Acid Calcium Magnesium Total Bilirubin Direct Bilirubin AST ALT Alkaline Phosphatase Total Creatine Kinase CK-MB (CK-2) Troponin T NT-Pro-B Natriuret Pep Total Protein Albumin Triglycerides LDL Cholesterol Direct HDL Cholesterol Urine WBC (Auto) Crossmatch 03/02/19 03/02/19 03/02/19 15:12 16:14 17:13 WBC RBC Hgb 8.0 L Hct 24.7 L MCHC RDW Plt Count Seg Neuts % (Manual) Lymphocytes % (Manual) Monocytes % (Manual) Nucleated RBC % Seg Neutrophils # Man Lymphocytes # (Manual) Monocytes # (Manual) PT INR D-Dimer POC ABG pH POC ABG pCO2 POC ABG pO2 Sodium Potassium Chloride Carbon Dioxide BUN Creatinine Glucose POC Glucose 405 H 395 H Hemoglobin A1c Lactic Acid Calcium Magnesium Total Bilirubin Direct Bilirubin AST ALT Alkaline Phosphatase Total Creatine Kinase CK-MB (CK-2) Troponin T NT-Pro-B Natriuret Pep Total Protein Albumin Triglycerides LDL Cholesterol Direct HDL Cholesterol Urine WBC (Auto) Crossmatch 03/02/19 03/02/19 03/02/19 17:13 17:16 17:30 WBC RBC Hgb Hct MCHC RDW Plt Count Seg Neuts % (Manual) Lymphocytes % (Manual) Monocytes % (Manual) Nucleated RBC % Seg Neutrophils # Man Lymphocytes # (Manual) Monocytes # (Manual) PT INR D-Dimer POC ABG pH POC ABG pCO2 POC ABG pO2 Sodium Potassium Chloride 94.8 L Carbon Dioxide 21 L BUN 34 H Creatinine 3.2 H Glucose 358 H POC Glucose 357 H Hemoglobin A1c Lactic Acid 7.90 H* Calcium 5.9 L* Magnesium Total Bilirubin Direct Bilirubin AST ALT Alkaline Phosphatase Total Creatine Kinase CK-MB (CK-2) Troponin T NT-Pro-B Natriuret Pep Total Protein Albumin Triglycerides LDL Cholesterol Direct HDL Cholesterol Urine WBC (Auto) Crossmatch 03/02/19 03/02/19 03/02/19 18:12 19:31 20:29 WBC RBC Hgb Hct MCHC RDW Plt Count Seg Neuts % (Manual) Lymphocytes % (Manual) Monocytes % (Manual) Nucleated RBC % Seg Neutrophils # Man Lymphocytes # (Manual) Monocytes # (Manual) PT INR D-Dimer POC ABG pH POC ABG pCO2 POC ABG pO2 Sodium Potassium Chloride Carbon Dioxide BUN Creatinine Glucose POC Glucose 270 H 263 H Hemoglobin A1c Lactic Acid Calcium Magnesium Total Bilirubin Direct Bilirubin AST ALT Alkaline Phosphatase Total Creatine Kinase CK-MB (CK-2) Troponin T NT-Pro-B Natriuret Pep Total Protein Albumin Triglycerides LDL Cholesterol Direct HDL Cholesterol Urine WBC (Auto) 17.0 H Crossmatch 03/02/19 03/02/19 03/02/19 20:37 21:08 21:36 WBC RBC Hgb Hct MCHC RDW Plt Count Seg Neuts % (Manual) Lymphocytes % (Manual) Monocytes % (Manual) Nucleated RBC % Seg Neutrophils # Man Lymphocytes # (Manual) Monocytes # (Manual) PT INR D-Dimer POC ABG pH POC ABG pCO2 POC ABG pO2 Sodium Potassium Chloride Carbon Dioxide BUN Creatinine Glucose POC Glucose 270 H 262 H Hemoglobin A1c Lactic Acid 8.60 H* Calcium Magnesium Total Bilirubin Direct Bilirubin AST ALT Alkaline Phosphatase Total Creatine Kinase CK-MB (CK-2) Troponin T NT-Pro-B Natriuret Pep Total Protein Albumin Triglycerides LDL Cholesterol Direct HDL Cholesterol Urine WBC (Auto) Crossmatch 03/02/19 03/02/19 03/03/19 22:07 23:09 00:02 WBC RBC Hgb Hct MCHC RDW Plt Count Seg Neuts % (Manual) Lymphocytes % (Manual) Monocytes % (Manual) Nucleated RBC % Seg Neutrophils # Man Lymphocytes # (Manual) Monocytes # (Manual) PT INR D-Dimer POC ABG pH POC ABG pCO2 POC ABG pO2 Sodium Potassium Chloride Carbon Dioxide BUN Creatinine Glucose POC Glucose 252 H 230 H 159 H Hemoglobin A1c Lactic Acid Calcium Magnesium Total Bilirubin Direct Bilirubin AST ALT Alkaline Phosphatase Total Creatine Kinase CK-MB (CK-2) Troponin T NT-Pro-B Natriuret Pep Total Protein Albumin Triglycerides LDL Cholesterol Direct HDL Cholesterol Urine WBC (Auto) Crossmatch 03/03/19 03/03/19 03/03/19 00:45 00:45 00:45 WBC RBC Hgb 6.3 L Hct 19.8 L* MCHC RDW Plt Count Seg Neuts % (Manual) Lymphocytes % (Manual) Monocytes % (Manual) Nucleated RBC % Seg Neutrophils # Man Lymphocytes # (Manual) Monocytes # (Manual) PT INR D-Dimer POC ABG pH POC ABG pCO2 POC ABG pO2 Sodium Potassium 2.9 L* D Chloride 110.4 H Carbon Dioxide 16 L BUN 27 H Creatinine 2.7 H Glucose 156 H POC Glucose Hemoglobin A1c Lactic Acid 4.90 H* Calcium 4.6 L* D Magnesium Total Bilirubin Direct Bilirubin AST ALT Alkaline Phosphatase Total Creatine Kinase CK-MB (CK-2) Troponin T NT-Pro-B Natriuret Pep Total Protein Albumin Triglycerides LDL Cholesterol Direct HDL Cholesterol Urine WBC (Auto) Crossmatch 03/03/19 03/03/19 03/03/19 01:10 02:04 03:07 WBC RBC Hgb Hct MCHC RDW Plt Count Seg Neuts % (Manual) Lymphocytes % (Manual) Monocytes % (Manual) Nucleated RBC % Seg Neutrophils # Man Lymphocytes # (Manual) Monocytes # (Manual) PT INR D-Dimer POC ABG pH POC ABG pCO2 POC ABG pO2 Sodium Potassium Chloride Carbon Dioxide BUN Creatinine Glucose POC Glucose 189 H 214 H 160 H Hemoglobin A1c Lactic Acid Calcium Magnesium Total Bilirubin Direct Bilirubin AST ALT Alkaline Phosphatase Total Creatine Kinase CK-MB (CK-2) Troponin T NT-Pro-B Natriuret Pep Total Protein Albumin Triglycerides LDL Cholesterol Direct HDL Cholesterol Urine WBC (Auto) Crossmatch 03/03/19 03/03/19 03/03/19 04:10 04:52 05:20 WBC RBC Hgb Hct MCHC RDW Plt Count Seg Neuts % (Manual) Lymphocytes % (Manual) Monocytes % (Manual) Nucleated RBC % Seg Neutrophils # Man Lymphocytes # (Manual) Monocytes # (Manual) PT INR D-Dimer POC ABG pH POC ABG pCO2 34.7 L POC ABG pO2 51 L Sodium Potassium Chloride Carbon Dioxide BUN Creatinine Glucose POC Glucose 142 H 142 H Hemoglobin A1c Lactic Acid Calcium Magnesium Total Bilirubin Direct Bilirubin AST ALT Alkaline Phosphatase Total Creatine Kinase CK-MB (CK-2) Troponin T NT-Pro-B Natriuret Pep Total Protein Albumin Triglycerides LDL Cholesterol Direct HDL Cholesterol Urine WBC (Auto) Crossmatch 03/03/19 03/03/19 03/03/19 06:06 06:50 08:01 WBC RBC Hgb Hct MCHC RDW Plt Count Seg Neuts % (Manual) Lymphocytes % (Manual) Monocytes % (Manual) Nucleated RBC % Seg Neutrophils # Man Lymphocytes # (Manual) Monocytes # (Manual) PT INR D-Dimer POC ABG pH POC ABG pCO2 POC ABG pO2 Sodium Potassium Chloride Carbon Dioxide BUN Creatinine Glucose POC Glucose 127 H 131 H 137 H Hemoglobin A1c Lactic Acid Calcium Magnesium Total Bilirubin Direct Bilirubin AST ALT Alkaline Phosphatase Total Creatine Kinase CK-MB (CK-2) Troponin T NT-Pro-B Natriuret Pep Total Protein Albumin Triglycerides LDL Cholesterol Direct HDL Cholesterol Urine WBC (Auto) Crossmatch 03/03/19 03/03/19 03/03/19 08:30 08:30 08:30 WBC 14.0 H RBC 3.52 L Hgb 9.9 L D Hct 29.8 L D MCHC RDW 16.6 H Plt Count Seg Neuts % (Manual) 92.0 H Lymphocytes % (Manual) 5.0 L Monocytes % (Manual) Nucleated RBC % 13.0 H Seg Neutrophils # Man 0.0 L Lymphocytes # (Manual) 0.0 L Monocytes # (Manual) PT INR D-Dimer POC ABG pH POC ABG pCO2 POC ABG pO2 Sodium Potassium 5.3 H D Chloride Carbon Dioxide BUN 38 H Creatinine 4.0 H Glucose 135 H POC Glucose Hemoglobin A1c Lactic Acid 4.00 H* Calcium 6.8 L D Magnesium 1.60 L Total Bilirubin 1.30 H Direct Bilirubin AST 4012 H ALT 1793 H Alkaline Phosphatase 259 H Total Creatine Kinase CK-MB (CK-2) Troponin T NT-Pro-B Natriuret Pep Total Protein 4.6 L Albumin 2.0 L Triglycerides LDL Cholesterol Direct HDL Cholesterol Urine WBC (Auto) Crossmatch 03/03/19 03/03/19 03/03/19 09:03 10:17 11:15 WBC RBC Hgb Hct MCHC RDW Plt Count Seg Neuts % (Manual) Lymphocytes % (Manual) Monocytes % (Manual) Nucleated RBC % Seg Neutrophils # Man Lymphocytes # (Manual) Monocytes # (Manual) PT INR D-Dimer POC ABG pH POC ABG pCO2 POC ABG pO2 Sodium Potassium Chloride Carbon Dioxide BUN Creatinine Glucose POC Glucose 108 H 113 H 126 H Hemoglobin A1c Lactic Acid Calcium Magnesium Total Bilirubin Direct Bilirubin AST ALT Alkaline Phosphatase Total Creatine Kinase CK-MB (CK-2) Troponin T NT-Pro-B Natriuret Pep Total Protein Albumin Triglycerides LDL Cholesterol Direct HDL Cholesterol Urine WBC (Auto) Crossmatch 03/03/19 03/03/19 03/03/19 13:38 17:02 20:41 WBC RBC Hgb Hct MCHC RDW Plt Count Seg Neuts % (Manual) Lymphocytes % (Manual) Monocytes % (Manual) Nucleated RBC % Seg Neutrophils # Man Lymphocytes # (Manual) Monocytes # (Manual) PT INR D-Dimer > 95921 H POC ABG pH POC ABG pCO2 POC ABG pO2 Sodium Potassium Chloride Carbon Dioxide BUN Creatinine Glucose POC Glucose 195 H 195 H Hemoglobin A1c Lactic Acid Calcium Magnesium Total Bilirubin Direct Bilirubin AST ALT Alkaline Phosphatase Total Creatine Kinase CK-MB (CK-2) Troponin T NT-Pro-B Natriuret Pep Total Protein Albumin Triglycerides LDL Cholesterol Direct HDL Cholesterol Urine WBC (Auto) Crossmatch 03/03/19 03/04/19 03/04/19 23:48 04:32 05:15 WBC RBC Hgb Hct MCHC RDW Plt Count Seg Neuts % (Manual) Lymphocytes % (Manual) Monocytes % (Manual) Nucleated RBC % Seg Neutrophils # Man Lymphocytes # (Manual) Monocytes # (Manual) PT INR D-Dimer POC ABG pH POC ABG pCO2 POC ABG pO2 Sodium Potassium 5.8 H Chloride 96.2 L Carbon Dioxide BUN 46 H Creatinine 4.6 H Glucose 253 H POC Glucose 206 H 248 H Hemoglobin A1c Lactic Acid Calcium 6.5 L Magnesium Total Bilirubin 1.30 H Direct Bilirubin AST 1662 H ALT 1186 H Alkaline Phosphatase 250 H Total Creatine Kinase CK-MB (CK-2) Troponin T NT-Pro-B Natriuret Pep Total Protein 4.3 L Albumin 1.7 L Triglycerides LDL Cholesterol Direct HDL Cholesterol Urine WBC (Auto) Crossmatch 03/04/19 03/04/19 03/04/19 05:15 05:15 07:55 WBC RBC Hgb 9.2 L Hct 28.0 L MCHC RDW Plt Count 123 L Seg Neuts % (Manual) Lymphocytes % (Manual) Monocytes % (Manual) Nucleated RBC % Seg Neutrophils # Man Lymphocytes # (Manual) Monocytes # (Manual) PT INR D-Dimer POC ABG pH POC ABG pCO2 POC ABG pO2 Sodium Potassium Chloride Carbon Dioxide BUN Creatinine Glucose POC Glucose 264 H Hemoglobin A1c Lactic Acid 3.40 H* Calcium Magnesium Total Bilirubin Direct Bilirubin AST ALT Alkaline Phosphatase Total Creatine Kinase CK-MB (CK-2) Troponin T NT-Pro-B Natriuret Pep Total Protein Albumin Triglycerides LDL Cholesterol Direct HDL Cholesterol Urine WBC (Auto) Crossmatch 03/04/19 03/04/19 03/04/19 08:08 11:27 14:14 WBC RBC Hgb Hct MCHC RDW Plt Count Seg Neuts % (Manual) Lymphocytes % (Manual) Monocytes % (Manual) Nucleated RBC % Seg Neutrophils # Man Lymphocytes # (Manual) Monocytes # (Manual) PT INR D-Dimer POC ABG pH POC ABG pCO2 POC ABG pO2 122 H Sodium Potassium Chloride Carbon Dioxide BUN Creatinine Glucose POC Glucose 269 H Hemoglobin A1c Lactic Acid 3.50 H* Calcium Magnesium Total Bilirubin Direct Bilirubin AST ALT Alkaline Phosphatase Total Creatine Kinase CK-MB (CK-2) Troponin T NT-Pro-B Natriuret Pep Total Protein Albumin Triglycerides LDL Cholesterol Direct HDL Cholesterol Urine WBC (Auto) Crossmatch 03/04/19 03/04/1903/05/19 17:02 20:23 00:14 WBC RBC Hgb Hct MCHC RDW Plt Count Seg Neuts % (Manual) Lymphocytes % (Manual) Monocytes % (Manual) Nucleated RBC % Seg Neutrophils # Man Lymphocytes # (Manual) Monocytes # (Manual) PT INR D-Dimer POC ABG pH POC ABG pCO2 POC ABG pO2 Sodium Potassium Chloride Carbon Dioxide BUN Creatinine Glucose POC Glucose 300 H 349 H 350 H Hemoglobin A1c Lactic Acid Calcium Magnesium Total Bilirubin Direct Bilirubin AST ALT Alkaline Phosphatase Total Creatine Kinase CK-MB (CK-2) Troponin T NT-Pro-B Natriuret Pep Total Protein Albumin Triglycerides LDL Cholesterol Direct HDL Cholesterol Urine WBC (Auto) Crossmatch 03/05/19 03/05/19 03/05/19 04:53 10:34 12:11 WBC RBC Hgb Hct MCHC RDW Plt Count Seg Neuts % (Manual) Lymphocytes % (Manual) Monocytes % (Manual) Nucleated RBC % Seg Neutrophils # Man Lymphocytes # (Manual) Monocytes # (Manual) PT INR D-Dimer POC ABG pH POC ABG pCO2 POC ABG pO2 Sodium Potassium 5.6 H Chloride Carbon Dioxide 21 L BUN 51 H Creatinine 5.6 H Glucose 285 H POC Glucose 313 H 257 H Hemoglobin A1c Lactic Acid Calcium 7.3 L Magnesium Total Bilirubin Direct Bilirubin AST ALT Alkaline Phosphatase Total Creatine Kinase CK-MB (CK-2) Troponin T NT-Pro-B Natriuret Pep Total Protein Albumin Triglycerides LDL Cholesterol Direct HDL Cholesterol Urine WBC (Auto) Crossmatch 03/05/19 03/05/19 03/05/19 15:50 20:08 23:04 WBC RBC Hgb Hct MCHC RDW Plt Count Seg Neuts % (Manual) Lymphocytes % (Manual) Monocytes % (Manual) Nucleated RBC % Seg Neutrophils # Man Lymphocytes # (Manual) Monocytes # (Manual) PT INR D-Dimer POC ABG pH POC ABG pCO2 POC ABG pO2 Sodium Potassium Chloride Carbon Dioxide BUN Creatinine Glucose POC Glucose 284 H 278 H 241 H Hemoglobin A1c Lactic Acid Calcium Magnesium Total Bilirubin Direct Bilirubin AST ALT Alkaline Phosphatase Total Creatine Kinase CK-MB (CK-2) Troponin T NT-Pro-B Natriuret Pep Total Protein Albumin Triglycerides LDL Cholesterol Direct HDL Cholesterol Urine WBC (Auto) Crossmatch 03/06/19 03/06/19 03/06/19 03:53 04:19 04:30 WBC RBC Hgb 8.8 L Hct 27.7 L MCHC RDW Plt Count 96 L Seg Neuts % (Manual) Lymphocytes % (Manual) Monocytes % (Manual) Nucleated RBC % Seg Neutrophils # Man Lymphocytes # (Manual) Monocytes # (Manual) PT INR D-Dimer POC ABG pH 7.332 L POC ABG pCO2 POC ABG pO2 Sodium Potassium Chloride Carbon Dioxide BUN Creatinine Glucose POC Glucose 215 H Hemoglobin A1c Lactic Acid Calcium Magnesium Total Bilirubin Direct Bilirubin AST ALT Alkaline Phosphatase Total Creatine Kinase CK-MB (CK-2) Troponin T NT-Pro-B Natriuret Pep Total Protein Albumin Triglycerides LDL Cholesterol Direct HDL Cholesterol Urine WBC (Auto) Crossmatch 03/06/19 03/06/19 03/06/19 07:33 11:32 16:15 WBC RBC Hgb Hct MCHC RDW Plt Count Seg Neuts % (Manual) Lymphocytes % (Manual) Monocytes % (Manual) Nucleated RBC % Seg Neutrophils # Man Lymphocytes # (Manual) Monocytes # (Manual) PT INR D-Dimer POC ABG pH POC ABG pCO2 POC ABG pO2 Sodium Potassium Chloride Carbon Dioxide BUN Creatinine Glucose POC Glucose 187 H 179 H 165 H Hemoglobin A1c Lactic Acid Calcium Magnesium Total Bilirubin Direct Bilirubin AST ALT Alkaline Phosphatase Total Creatine Kinase CK-MB (CK-2) Troponin T NT-Pro-B Natriuret Pep Total Protein Albumin Triglycerides LDL Cholesterol Direct HDL Cholesterol Urine WBC (Auto) Crossmatch 03/06/19 03/06/19 03/07/19 19:55 23:14 04:32 WBC RBC Hgb Hct MCHC RDW Plt Count Seg Neuts % (Manual) Lymphocytes % (Manual) Monocytes % (Manual) Nucleated RBC % Seg Neutrophils # Man Lymphocytes # (Manual) Monocytes # (Manual) PT INR D-Dimer POC ABG pH POC ABG pCO2 32.1 L POC ABG pO2 Sodium Potassium Chloride Carbon Dioxide BUN Creatinine Glucose POC Glucose 145 H 127 H Hemoglobin A1c Lactic Acid Calcium Magnesium Total Bilirubin Direct Bilirubin AST ALT Alkaline Phosphatase Total Creatine Kinase CK-MB (CK-2) Troponin T NT-Pro-B Natriuret Pep Total Protein Albumin Triglycerides LDL Cholesterol Direct HDL Cholesterol Urine WBC (Auto) Crossmatch Allied health notes reviewed: nursing
[2019-03-07 10:19] LABS: Albumin 1.5 g/dL (3.9-5); Bilirubin,Direct 1.1 mg/dL (0-0.2); Calcium 7.6 mg/dL (8.4-10.2)
[2019-03-07] MEDS ORDERED: KIONEX PO ONE ×2 (10:29→20:00)
--- NOTE | 2019-03-07 10:54 | Progress Note ---
Assessment and Plan Cont supportive measures, vasopressor support. Overall poor prognosis. - Patient Problems (1) GERALDINE (acute kidney injury) Current Visit: Yes Status: Acute (2) Acute HFrEF (heart failure with reduced ejection fraction) Current Visit: Yes Status: Acute (3) Acute renal injury Current Visit: Yes Status: Acute (4) Altered mental state Current Visit: Yes Status: Acute (5) Anemia Current Visit: Yes Status: Acute Qualifiers: Anemia type: unspecified type Qualified Code(s): D64.9 - Anemia, unspecified (6) CVA (cerebral vascular accident) Current Visit: Yes Status: Acute (7) Cardiomyopathy Current Visit: Yes Status: Acute Qualifiers: Cardiomyopathy type: unspecified Qualified Code(s): I42.9 - Cardiomyopathy, unspecified (8) Cardiopulmonary arrest with successful resuscitation Current Visit: Yes Status: Acute (9) DVT prophylaxis Current Visit: Yes Status: Acute (10) Elevated LFTs Current Visit: Yes Status: Acute (11) Encephalopathy acute Current Visit: Yes Status: Acute (12) Hepatic dysfunction Current Visit: Yes Status: Acute (13) Hyperglycemia due to type 2 diabetes mellitus Current Visit: Yes Status: Acute Qualifiers: Diabetes mellitus skilled nursing insulin use: unspecified meterman insulin use status Qualified Code(s): E11.65 - Type 2 diabetes mellitus with hyperglycemia (14) Rhabdomyolysis Current Visit: Yes Status: Acute Qualifiers: Rhabdomyolysis type: non-traumatic Qualified Code(s): M62.82 - Rhabdomyolysis (15) Severe anemia Current Visit: Yes Status: Acute (16) Peripheral vascular disease Current Visit: Yes Status: Chronic (17) Arterial occlusion, lower extremity Current Visit: No Status: Acute Subjective Principal diagnosis: anemia Interval history: no changes overnight per rn Objective Vital Signs Temp Pulse Pulse Pulse Resp Resp BP 03/07/19 08:00 101.8 F H 03/07/19 06:45 102 H 19 112/52 03/07/19 06:30 103 H 20 115/56 03/07/19 06:15 102 H 20 124/52 03/07/19 06:00 102 H 21 127/52 03/07/19 05:45 103 H 20 125/48 03/07/19 05:30 102 H 20 141/45 03/07/19 05:16 104 H 21 140/51 03/07/19 05:00 102 H 21 142/53 03/07/19 04:45 104 H 15 146/50 03/07/19 04:32 107 H 134/57 03/07/19 04:30 102 H 17 150/48 03/07/19 04:15 106 H 17 134/57 03/07/19 04:00 100.8 F H 105 H 99 H 19 137/55 03/07/19 03:45 105 H 15 147/48 03/07/19 03:30 104 H 18 134/48 03/07/19 03:15 104 H 18 141/58 03/07/19 03:00 103 H 12 124/46 03/07/19 02:45 104 H 18 137/55 03/07/19 02:42 106 H 20 03/07/19 02:30 101 H 10 L 123/43 03/07/19 02:27 104 H 20 03/07/19 02:15 105 H 16 154/48 03/07/19 02:00 95 H 11 L 143/59 03/07/19 01:45 103 H 13 129/49 03/07/19 01:30 103 H 16 122/60 03/07/19 01:15 99 H 19 171/47 03/07/19 01:00 107 H 19 154/53 03/07/19 00:45 108 H 20 153/61 03/07/19 00:30 107 H 20 158/59 03/07/19 00:15 82 18 156/61 03/07/19 00:00 100.0 F H 106 H 20 154/62 03/06/19 23:45 107 H 20 164/65 03/06/19 23:34 107 H 148/60 03/06/19 23:30 71 20 149/61 03/06/19 23:15 88 20 159/52 03/06/19 23:00 107 H 20 148/60 03/06/19 22:46 107 H 20 149/57 03/06/19 22:45 89 20 149/57 03/06/19 22:30 107 H 20 148/61 03/06/19 22:15 107 H 20 153/58 03/06/19 22:00 107 H 20 141/60 03/06/19 21:45 109 H 20 151/58 03/06/19 21:30 108 H 20 141/56 03/06/19 21:15 110 H 20 153/52 03/06/19 21:00 110 H 21 139/59 03/06/19 20:45 112 H 20 147/55 03/06/19 20:30 111 H 20 138/60 03/06/19 20:15 112 H 20 152/60 03/06/19 20:00 100.6 F H 109 H 20 144/59 03/06/19 19:45 109 H 19 133/51 03/06/19 19:39 110 H 20 03/06/19 19:30 108 H 23 136/61 03/06/19 19:24 108 H 19 03/06/19 19:22 108 H 128/52 03/06/19 19:15 109 H 20 128/52 03/06/19 19:00 112 H 19 134/47 03/06/19 18:45 111 H 20 135/55 03/06/19 18:30 110 H 22 119/58 03/06/19 18:15 111 H 20 119/64 03/06/19 18:00 108 H 20 117/62 03/06/19 17:45 108 H 20 102/46 03/06/19 17:30 109 H 31 H 111/41 03/06/19 17:20 109 H 111/41 03/06/19 17:15 109 H 30 H 109/47 03/06/19 17:00 108 H 30 H 113/43 03/06/19 16:45 109 H 31 H 110/50 03/06/19 16:30 109 H 30 H 106/45 03/06/19 16:15 109 H 30 H 112/45 03/06/19 16:00 100.0 F H 109 H 30 H 117/44 03/06/19 15:45 108 H 30 H 109/46 03/06/19 15:30 108 H 30 H 107/44 03/06/19 15:15 109 H 30 H 100/46 03/06/19 15:00 94 H 29 H 62/27 03/06/19 14:45 108 H 30 H 106/40 03/06/19 14:30 108 H 30 H 101/45 03/06/19 14:20 100 H 28 H 03/06/19 14:15 106 H 20 114/47 03/06/19 14:08 106 H 30 H 03/06/19 14:00 107 H 29 H 109/52 03/06/19 13:45 107 H 29 H 109/46 03/06/19 13:30 105 H 30 H 103/43 03/06/19 13:15 105 H 30 H 105/46 03/06/19 13:00 108 H 31 H 119/65 03/06/19 12:46 108 H 30 H 119/65 03/06/19 12:30 109 H 30 H 119/65 03/06/19 12:16 111 H 29 H 119/65 03/06/19 12:00 100.4 F H 102 H 18 119/65 03/06/19 11:46 116 H 29 H 119/65 03/06/19 11:30 116 H 30 H 119/65 03/06/19 11:15 117 H 30 H 115/65 03/06/19 11:00 117 H 29 H 115/63 Pulse Ox 03/07/19 08:00 03/07/19 06:45 93 03/07/19 06:30 95 03/07/19 06:15 93 03/07/19 06:00 94 03/07/19 05:45 94 03/07/19 05:30 93 03/07/19 05:16 94 03/07/19 05:00 94 03/07/19 04:45 94 03/07/19 04:32 96 03/07/19 04:30 94 03/07/19 04:15 94 03/07/19 04:00 93 03/07/19 03:45 94 03/07/19 03:30 94 03/07/19 03:15 93 03/07/19 03:00 94 03/07/19 02:45 97 03/07/19 02:42 03/07/19 02:30 97 03/07/19 02:27 03/07/19 02:15 94 03/07/19 02:00 94 03/07/19 01:45 94 03/07/19 01:30 94 03/07/19 01:15 95 03/07/19 01:00 94 03/07/19 00:45 95 03/07/19 00:30 95 03/07/19 00:15 95 03/07/19 00:00 95 03/06/19 23:45 97 03/06/19 23:34 97 03/06/19 23:30 95 03/06/19 23:15 95 03/06/19 23:00 95 03/06/19 22:46 97 03/06/19 22:45 95 03/06/19 22:30 94 03/06/19 22:15 95 03/06/19 22:00 94 03/06/19 21:45 95 03/06/19 21:30 94 03/06/19 21:15 95 03/06/19 21:00 95 03/06/19 20:45 95 03/06/19 20:30 94 03/06/19 20:15 93 03/06/19 20:00 96 03/06/19 19:45 03/06/19 19:39 03/06/19 19:30 98 03/06/19 19:24 03/06/19 19:22 96 03/06/19 19:15 96 03/06/19 19:00 96 03/06/19 18:45 95 03/06/19 18:30 94 03/06/19 18:15 03/06/19 18:00 03/06/19 17:45 94 03/06/19 17:30 94 03/06/19 17:20 96 03/06/19 17:15 93 03/06/19 17:00 94 03/06/19 16:45 94 03/06/19 16:30 94 03/06/19 16:15 94 03/06/19 16:00 100 03/06/19 15:45 03/06/19 15:30 03/06/19 15:15 03/06/19 15:00 03/06/19 14:45 95 03/06/19 14:30 95 03/06/19 14:20 03/06/19 14:15 98 03/06/19 14:08 03/06/19 14:00 03/06/19 13:45 03/06/19 13:30 96 03/06/19 13:15 03/06/19 13:00 97 03/06/19 12:46 96 03/06/19 12:30 96 03/06/19 12:16 97 03/06/19 12:00 100 03/06/19 11:46 96 03/06/19 11:30 97 03/06/19 11:15 97 03/06/19 11:00 97 - Physical Examination General: Other (intubated, nonresponsive) Neuro: Positive: Other (intubated, nonresponsive) Skin: Positive: Other (RLE gangrene). Negative: Rash Extremities: Present: +2 Edema (RLE > LLE) - Labs and Meds Cardiac Enzymes 03/07/19 Range/Units 09:53 AST 117 H (5-40) units/L Comprehensive Metabolic Panel 03/07/19 Range/Units 09:53 Sodium 140 (137-145) mmol/L Potassium 5.9 H (3.6-5.0) mmol/L Chloride 104.3 (98-107) mmol/L Carbon Dioxide 21 L (22-30) mmol/L BUN 56 H (7-17) mg/dL Creatinine 6.8 H (0.7-1.2) mg/dL Glucose 85 (65-100) mg/dL Calcium 7.6 L (8.4-10.2) mg/dL Direct Bilirubin 1.1 H (0-0.2) mg/dL Indirect Bilirubin 0.1 mg/dL AST 117 H (5-40) units/L ALT 273 H (7-56) units/L Alkaline Phosphatase 298 H (35-129) units/L Total Protein 4.4 L (6.3-8.2) g/dL Albumin 1.5 L (3.9-5) g/dL - Imaging and Cardiology EKG: report reviewed, image reviewed Echo: report reviewed (03/01/2019: EF 25-30%, apical septal and apical lateral wall segments are akinetic. 02/14/2019 showed EF 55-60%, mild LVH, mild with peak gradient 24 and mean 11, mild AR. ) - EKG Sinus rhythms and dysrhythmias: sinus rhythm - Allied health notes Allied health notes reviewed: nursing
[2019-03-07] MEDS: ASPIRIN PO SCH (10:59)
[2019-03-07] MEDS: PROTONIX IV SCH ×2 (10:59→21:39)
[2019-03-07] MEDS: SODIUM CHLORIDE FLUSH SYRINGE 10 ML IV SCH (11:00)
[2019-03-07] MEDS: LANTUS SUB-Q SCH (11:01)
[2019-03-07] MEDS: MAXIPIME/NS 2 GM/100 ML 2 GM/100 ML BAG IV SCH (11:01)
--- NOTE | 2019-03-07 14:50 | Progress Note ---
Assessment and Plan - Patient Problems (1) GERALDINE (acute kidney injury) Current Visit: Yes Status: Acute Plan to address problem: Acute kidney injury is acute tubular necrosis secondary to hypotension and sepsis. Kidney function is worsening. Patient is a poor candidate for renal replacement therapy. Discussions ongoing about considering hospice/palliative care. (2) Hyperkalemia Current Visit: Yes Status: Acute Plan to address problem: Secondary to decreased distal delivery of sodium needed for exchange for potassium in the distal tubules. Continue volume expansion. Potassium is high. Patient is a poor candidate for renal replacement therapy. Treat hyperkalemia medically. (3) Hyperosmolar non-ketotic state in patient with type 2 diabetes mellitus Current Visit: Yes Status: Acute Plan to address problem: Management of hyperglycemia per Primary attending (4) Hyponatremia Current Visit: Yes Status: Acute Plan to address problem: Hypovolemic and also factitious secondary to hyperglycemia. Resolved. Follow- up sodium (5) Essential (primary) hypertension Current Visit: Yes Status: Acute Plan to address problem: She was hypotensive on presentation, blood pressure has improved. Monitor blood pressure closely (6) Peripheral vascular disease Current Visit: Yes Status: Chronic Plan to address problem: Recent thrombolysis complicated by compartment syndrome status post fasciotomy. Follow-up creatinine phosphokinase (7) Anemia Current Visit: Yes Status: Acute Qualifiers: Anemia type: unspecified type Qualified Code(s): D64.9 - Anemia, unspecified Plan to address problem: Follow-up hemoglobin (8) Sepsis Current Visit: Yes Status: Suspected Qualifiers: Sepsis type: sepsis due to unspecified organism Qualified Code(s): A41.9 - Sepsis, unspecified organism Plan to address problem: secondary to urinary tract infection. Continue antibiotics are probably adjusted to the degree of renal function Subjective Date of service: 03/07/19 Principal diagnosis: anemia Interval history: Patient seen lying in bed. Intubated and on ventilator. On Levophed infusion. Objective - Exam Narrative Exam: Obese middle-aged maryjane in bed intubated on ventilator HEENT: NCAT, pink and dry oral mucous membrane Neck: Supple, no venous distention CVS: S1S2 RRR with no murmur, rub or gallop Chest: Bilateral rhonchi Abdomen: Obese, soft, nontender, no organomegaly, bowel sounds are present Extremities: Dressing right lower extremity clean and dry, no edema Skin warm and dry Genitourinary deferred Neuro: Unresponsive - Vital Signs Vital signs: Vital Signs - 12hr 03/07/19 03/07/19 03/07/19 03:00 03:15 03:30 Temperature Pulse Rate 103 H 104 H 104 H Pulse Rate [ Anterior Bilateral Throughout] Pulse Rate [ Left Posterior Tibial] Respiratory 12 18 18 Rate Respiratory Rate [Anterior Bilateral Throughout] Blood Pressure 124/46 141/58 134/48 O2 Sat by Pulse 94 93 94 Oximetry 03/07/19 03/07/19 03/07/19 03:45 04:00 04:15 Temperature 100.8 F H Pulse Rate 105 H 105 H 106 H Pulse Rate [ Anterior Bilateral Throughout] Pulse Rate [ 99 H Left Posterior Tibial] Respiratory 15 19 17 Rate Respiratory Rate [Anterior Bilateral Throughout] Blood Pressure 147/48 137/55 134/57 O2 Sat by Pulse 94 93 94 Oximetry 03/07/19 03/07/19 03/07/19 04:30 04:32 04:45 Temperature Pulse Rate 102 H 107 H 104 H Pulse Rate [ Anterior Bilateral Throughout] Pulse Rate [ Left Posterior Tibial] Respiratory 17 15 Rate Respiratory Rate [Anterior Bilateral Throughout] Blood Pressure 150/48 134/57 146/50 O2 Sat by Pulse 94 96 94 Oximetry 03/07/19 03/07/19 03/07/19 05:00 05:16 05:30 Temperature Pulse Rate 102 H 104 H 102 H Pulse Rate [ Anterior Bilateral Throughout] Pulse Rate [ Left Posterior Tibial] Respiratory 21 21 20 Rate Respiratory Rate [Anterior Bilateral Throughout] Blood Pressure 142/53 140/51 141/45 O2 Sat by Pulse 94 94 93 Oximetry 03/07/19 03/07/19 03/07/19 05:45 06:00 06:15 Temperature Pulse Rate 103 H 102 H 102 H Pulse Rate [ Anterior Bilateral Throughout] Pulse Rate [ Left Posterior Tibial] Respiratory 20 21 20 Rate Respiratory Rate [Anterior Bilateral Throughout] Blood Pressure 125/48 127/52 124/52 O2 Sat by Pulse 94 94 93 Oximetry 03/07/19 03/07/19 03/07/19 06:30 06:45 07:00 Temperature Pulse Rate 103 H 102 H 103 H Pulse Rate [ Anterior Bilateral Throughout] Pulse Rate [ Left Posterior Tibial] Respiratory 20 19 20 Rate Respiratory Rate [Anterior Bilateral Throughout] Blood Pressure 115/56 112/52 131/50 O2 Sat by Pulse 95 93 93 Oximetry 03/07/19 03/07/19 03/07/19 07:15 07:30 07:45 Temperature Pulse Rate 102 H 102 H 102 H Pulse Rate [ Anterior Bilateral Throughout] Pulse Rate [ Left Posterior Tibial] Respiratory 20 20 20 Rate Respiratory Rate [Anterior Bilateral Throughout] Blood Pressure 130/53 133/53 138/54 O2 Sat by Pulse 93 93 94 Oximetry 03/07/19 03/07/19 03/07/19 07:50 08:00 08:15 Temperature 101.8 F H Pulse Rate 102 H 103 H 102 H Pulse Rate [ 102 H 102 H Anterior Bilateral Throughout] Pulse Rate [ Left Posterior Tibial] Respiratory 20 20 Rate Respiratory 20 20 Rate [Anterior Bilateral Throughout] Blood Pressure 120/51 120/51 108/54 O2 Sat by Pulse 96 99 94 Oximetry 03/07/19 03/07/19 03/07/19 08:30 08:45 09:00 Temperature Pulse Rate 102 H 102 H 102 H Pulse Rate [ Anterior Bilateral Throughout] Pulse Rate [ Left Posterior Tibial] Respiratory 20 26 H 24 Rate Respiratory Rate [Anterior Bilateral Throughout] Blood Pressure 124/52 130/38 128/53 O2 Sat by Pulse 94 93 Oximetry 03/07/19 03/07/19 03/07/19 09:15 09:30 09:45 Temperature Pulse Rate 103 H 86 102 H Pulse Rate [ Anterior Bilateral Throughout] Pulse Rate [ Left Posterior Tibial] Respiratory 20 21 20 Rate Respiratory Rate [Anterior Bilateral Throughout] Blood Pressure 125/53 126/45 125/38 O2 Sat by Pulse 94 94 96 Oximetry 03/07/19 03/07/19 03/07/19 10:00 10:15 10:30 Temperature Pulse Rate 102 H 101 H 103 H Pulse Rate [ Anterior Bilateral Throughout] Pulse Rate [ Left Posterior Tibial] Respiratory 20 20 20 Rate Respiratory Rate [Anterior Bilateral Throughout] Blood Pressure 144/36 129/46 141/51 O2 Sat by Pulse 95 94 95 Oximetry 03/07/19 03/07/19 03/07/19 10:46 11:00 11:16 Temperature Pulse Rate 101 H 101 H 101 H Pulse Rate [ Anterior Bilateral Throughout] Pulse Rate [ Left Posterior Tibial] Respiratory 18 20 21 Rate Respiratory Rate [Anterior Bilateral Throughout] Blood Pressure 144/36 145/42 151/30 O2 Sat by Pulse 95 95 Oximetry 03/07/19 03/07/19 03/07/19 11:30 11:45 12:00 Temperature 101.1 F H Pulse Rate 101 H 99 H 99 H Pulse Rate [ Anterior Bilateral Throughout] Pulse Rate [ Left Posterior Tibial] Respiratory 20 20 20 Rate Respiratory Rate [Anterior Bilateral Throughout] Blood Pressure 131/30 133/40 142/49 O2 Sat by Pulse 95 95 94 Oximetry 03/07/19 03/07/19 03/07/19 12:15 12:30 12:45 Temperature Pulse Rate 99 H 99 H 98 H Pulse Rate [ Anterior Bilateral Throughout] Pulse Rate [ Left Posterior Tibial] Respiratory 20 20 20 Rate Respiratory Rate [Anterior Bilateral Throughout] Blood Pressure 147/42 141/40 150/42 O2 Sat by Pulse 96 94 95 Oximetry 03/07/19 03/07/19 03/07/19 13:00 13:15 13:30 Temperature Pulse Rate 98 H 99 H 100 H Pulse Rate [ Anterior Bilateral Throughout] Pulse Rate [ Left Posterior Tibial] Respiratory 20 21 20 Rate Respiratory Rate [Anterior Bilateral Throughout] Blood Pressure 145/41 159/45 128/58 O2 Sat by Pulse 96 94 93 Oximetry - Lab 03/06/19 04:30 03/07/19 09:53 Most recent lab results Calcium 7.6 mg/dL (8.4-10.2) L 03/07/19 09:53 Phosphorus 4.50 mg/dL (2.5-4.5) 03/03/19 08:30 Magnesium 1.60 mg/dL (1.7-2.3) L 03/03/19 08:30 Medications & Allergies - Medications Allergies/Adverse Reactions: Allergies No Known Allergies Allergy (Verified 01/28/19 21:26) Home Medications: Home Medications Medication Instructions Recorded Confirmed Last Taken Type Aspirin [Low Dose Aspirin EC] 81 mg PO DAILY #30 tablet. 02/04/19 02/16/19 02/14/19 10:00 Rx Clopidogrel [Plavix] 75 mg PO QDAY #30 tablet 02/04/19 02/16/19 02/14/19 10:00 Rx Lispro Insulin [Humalog] 0 unit SUB-Q ACHS units 02/20/19 Unknown Rx Lispro Insulin [Humalog] 5 unit SUB-Q AC 30 Days units 02/20/19 Unknown Rx Multivitamin with Iron [Tab-A-Lupe 1 each PO DAILY #30 tablet 02/20/19 Unknown Rx with Iron] Valsartan [Diovan] 160 mg PO BID #60 tablet 02/20/19 Unknown Rx oxyCODONE /ACETAMINOPHEN [Percocet 1 tab PO Q6H PRN #20 tablet 02/20/19 Unknown Rx 5/325 mg] Insulin Glargine [Lantus VIAL] 22 units SUB-Q DAILY #1 vial 02/25/19 Unknown Rx Insulin Lispro [HumaLOG VIAL] 0 units SQ AC #1 vial 02/25/19 Unknown Rx Active Medications: Generic Name Dose Route Start Last Admin Trade Name Freq PRN Reason Stop Dose Admin Acetaminophen 650 mg 02/13/19 18:03 03/07/19 13:31 Tylenol PO 650 mg Q4H PRN Administration Pain MILD(1-3)/Fever >100.5/MARTÍNEZ Albuterol 2.5 mg 02/22/19 04:53 02/28/19 16:08 Proventil IH 2.5 mg Q6HRT PRN Administration Shortness Of Breath Albuterol/Ipratropium 1 ampul 02/28/19 16:45 03/07/19 07:50 Duoneb *Not For Prn Use* IH 1 ampul Q6HRT RAFAEL Administration Aspirin 325 mg 02/28/19 19:00 03/07/19 10:59 Aspirin PO 325 mg QDAY RAFAEL Administration Dextrose 50 ml 03/02/19 08:04 D50w (25gm) Syringe IV PRN PRN Hypoglycemia Fentanyl 50 mcg 02/28/19 21:01 Sublimaze IV Q10MIN PRN ANALGESIA Furosemide 80 mg 03/03/19 10:00 03/07/19 05:55 Lasix IV 80 mg 0600,1800 RAFAEL Administration Hydralazine HCl 10 mg 03/02/19 15:28 Apresoline IV Q4HR PRN BP >180/110 Hydrophilic Ointment 1 applic 02/28/19 21:29 Vaseline Lip Therapy TP Q2HR PRN Dry Lips Fentanyl Citrate 2,000 mcg in 100 mls @ 5.665 mls/hr 02/28/19 22:00 03/01/19 00:46 Fentanyl Drip Premix IV 0 mcg/kg/hr TITR RAFAEL 0 mls/hr Titration Protocol 1 MCG/KG/HR Dopamine HCl/Dextrose 800 mg in 250 mls @ 4.249 mls/hr 03/01/19 01:35 03/02/19 00:13 Intropin Drip 800 Mg/D5w 250 Ml IV 0 mcg/kg/min TITR RAFAEL 0 mls/hr Titration Protocol 2 MCG/KG/MIN Cefepime HCl 2 gm in 100 mls @ 200 mls/hr 03/01/19 20:00 03/07/19 11:01 Maxipime/Ns 2 Gm/100 Ml IV 200 mls/hr Q24HR RAFAEL Administration Protocol Sodium Chloride 1,000 mls @ 42 mls/hr 03/02/19 10:00 03/04/19 18:29 Nacl 0.9% 1000 Ml IV 42 mls/hr DIRECT RAFAEL Administration Dobutamine HCl/Dextrose 500 mg in 250 mls @ 16.995 mls/hr 03/04/19 11:00 03/19 23:30 Dobutrex Drip 500mg/D5w 250ml IV 0 mcg/kg/min DIRECT RAFAEL 0 mls/hr Infusion 5 MCG/KG/MIN Norepinephrine 8 mg/ Sodium 250 mls @ 3.75 mls/hr 03/04/19 21:00 03/07/19 11:02 Chloride IV 16 mcg/min TITR RAFAEL 30 mls/hr Administration Protocol 2 MCG/MIN Insulin Glargine 30 units 03/05/19 14:04 03/07/19 11:01 Lantus SUB-Q 30 units DAILY RAFAEL Administration Insulin Human Lispro 0 unit 03/03/19 12:00 03/07/19 10:48 Humalog SUB-Q Not Given Q4H RFAAEL Protocol Multi-Ingred Cream/Lotion/Oil/Oint 1 applic 03/03/19 10:39 03/03/19 11:07 Artificial Tears Ophth Oint OU 1 applic PRN PRN Administration Dry Eye(s) Ondansetron HCl 4 mg 02/13/19 18:03 Zofran IV Q8H PRN Nausea And Vomiting Pantoprazole Sodium 40 mg 03/02/19 22:00 03/07/19 10:59 Protonix IV 40 mg BID RAFAEL Administration Sodium Chloride 10 ml 02/13/19 22:00 03/07/19 11:00 Sodium Chloride Flush Syringe 10 Ml IV 10 ml BID RAFAEL Administration Sodium Chloride 10 ml 02/13/19 18:03 Sodium Chloride Flush Syringe 10 Ml IV PRN PRN LINE FLUSH
--- NOTE | 2019-03-07 16:13 | Progress Note ---
Assessment and Plan Cultures: 02/13/2019 blood culture: E. coli, 4 out of 4 bottles 02/14/2019 urine culture: E. coli 02/16/2019 Blood culture: no growth 02/22/2019 Blood culture: no growth 03/01/2019 Blood culture: no growth 03/01/2019 urine culture: no significant growth 03/02/2019 tracheal aspirate: normal resp juan A/P: 58-year-old female with hypertension, diabetes mellitus type 2, peripheral vascular disease who was recently hospitalized from vascular surgery clinic due to right second toe gangrene. She underwent thrombolysis of the right lower extremity and underwent a stent placement. She developed compartment syndrome requiring fasciotomy on 01/29/2019 and then was discharged to a rehabilitation facility, admitted with: 1) Cardiac arrest and shock with new CVA: severe lactic acidosis, anemia. Etiology septic v/s cardiogenic. Critically ill. Also with bilateral pneumonia, probably from aspiration following arrest. 2) E.coli bacteremia: urinary source. Completed antibiotics (Cefazolin) several days ago with repeat cultures negative. 3) UTI: U/a shows Pyuria, WBC > 182 with large LE. Urine culture grew E.coli. Completed abx. 4) Acute kidney failure: Urine output low. Critically ill. Creatinine elevated. 5) Peripheral vascular disease: Right second toe ischemia and gangrene. 6) Diabetes mellitus type 2, uncontrolled. 7) Shock liver Recs: continue IV Cefepime (renally adjusted, dose changed to 1 gm q24 hrs) prognosis is poor, recommend palliative care MD [facility] C: [phone] O: [phone] F: [phone] Subjective Date of service: 03/07/19 Principal diagnosis: anemia Interval history: Patient febrile. Remains unresponsive, on the ventilator. Objective - Exam Narrative Exam: Physical Exam: Constitutional: intubated, unresponsive Head, Ears, Nose: Normocephalic, atraumatic. External ears, nose normal Eyes: Conjunctivae/corneas clear. No icterus. No ptosis. Neck: Supple, no meningeal signs Oral: intubated Cardiovascular: S1, S2 normal. Respiratory: AE b/l equal. No crackles. GI: bowel sounds hypoactive. No peritoneal signs Musculoskeletal: Right second toe with blackish discoloration, right calf with dressing Skin: No rash or abscess Hem/Lymphatic: No palpable cervical or supraclavicular nodes. No lymphangitis Psych: no agitation Neurological: intubated, on vent, unresponsive - Constitutional Vitals: Vital Signs Temp Pulse Resp BP Pulse Ox 101.1 F H 94 H 20 160/46 96 03/07/19 12:00 03/07/19 16:00 03/07/19 16:00 03/07/19 16:00 03/07/19 16:00 Temperature -Last 24 Hours Temperature 101.1 F Temperature 101.8 F Temperature 100.8 F Temperature 100.0 F Temperature 100.6 F - Labs CBC & Chem 7: 03/06/19 04:30 03/07/19 09:53 Labs: Abnormal lab results 03/06/19 03/06/19 03/06/19 Range/Units 16:15 19:55 23:14 POC ABG pCO2 (35-45) Potassium (3.6-5.0) mmol/L Carbon Dioxide (22-30) mmol/L BUN (7-17) mg/dL Creatinine (0.7-1.2) mg/dL POC Glucose 165 H 145 H 127 H (70-105) Calcium (8.4-10.2) mg/dL Direct Bilirubin (0-0.2) mg/dL AST (5-40) units/L ALT (7-56) units/L Alkaline Phosphatase (35-129) units/L Ammonia (25-60) umol/L Total Protein (6.3-8.2) g/dL Albumin (3.9-5) g/dL 03/07/19 03/07/19 03/07/19 Range/Units 04:32 09:53 11:03 POC ABG pCO2 32.1 L (35-45) Potassium 5.9 H (3.6-5.0) mmol/L Carbon Dioxide 21 L (22-30) mmol/L BUN 56 H (7-17) mg/dL Creatinine 6.8 H (0.7-1.2) mg/dL POC Glucose (70-105) Calcium 7.6 L (8.4-10.2) mg/dL Direct Bilirubin 1.1 H (0-0.2) mg/dL AST 117 H (5-40) units/L ALT 273 H (7-56) units/L Alkaline Phosphatase 298 H (35-129) units/L Ammonia 69.0 H (25-60) umol/L Total Protein 4.4 L (6.3-8.2) g/dL Albumin 1.5 L (3.9-5) g/dL
[2019-03-07] MEDS ORDERED: D50W (25GM) Vial IV PRN (17:00)
[2019-03-07] MEDS: MAXIPIME/NS 1 GM/100 ML 1 GM/100 ML BAG IV SCH (17:28)
[2019-03-07] MEDS: D50W (25GM) Syringe IV PRN (17:29)
[2019-03-08] MEDS: NACL 0.9% 1000 ML 1,000 ML IV SCH (00:27)
[2019-03-08] MEDS: D50W (25GM) Syringe IV PRN (00:27)
[2019-03-08] MEDS: LEVOPHED 8 MG in NACL 0.9% 250ML 242 ML IV SCH (01:01)
[2019-03-08] MEDS: HumaLOG SUB-Q SCH ×5 (01:02→20:32)
[2019-03-08] MEDS: SODIUM CHLORIDE FLUSH SYRINGE 10 ML IV SCH ×2 (01:04→10:44)
[2019-03-08] MEDS: DUONEB *Not for PRN Use IH SCH ×4 (02:10→19:39)
[2019-03-08 04:41] LABS: Hematocrit 27.3 % (30.3-42.9); Hemoglobin 8.5 gm/dl (10.1-14.3)
[2019-03-08 04:53] LABS: Calcium 7.9 mg/dL (8.4-10.2)
[2019-03-08] MEDS: LANTUS SUB-Q SCH (10:30)
[2019-03-08] MEDS: ASPIRIN PO SCH (10:43)
[2019-03-08] MEDS: PROTONIX IV SCH ×2 (10:44→23:00)
--- NOTE | 2019-03-08 10:53 | Progress Note ---
Assessment and Plan Cultures: 02/13/2019 blood culture: E. coli, 4 out of 4 bottles 02/14/2019 urine culture: E. coli 02/16/2019 Blood culture: no growth 02/22/2019 Blood culture: no growth 03/01/2019 Blood culture: no growth 03/01/2019 urine culture: no significant growth 03/02/2019 tracheal aspirate: normal resp juan A/P: 58-year-old female with hypertension, diabetes mellitus type 2, peripheral vascular disease who was recently hospitalized from vascular surgery clinic due to right second toe gangrene. She underwent thrombolysis of the right lower extremity and underwent a stent placement. She developed compartment syndrome requiring fasciotomy on 01/29/2019 and then was discharged to a rehabilitation facility, admitted with: 1) Cardiac arrest and shock with CVA: severe lactic acidosis, anemia. Etiology septic v/s cardiogenic. Critically ill. Also with bilateral pneumonia, probably from aspiration following arrest. 2) E.coli bacteremia: urinary source. Completed antibiotics (Cefazolin) several days ago with repeat cultures negative. 3) UTI: U/a shows Pyuria, WBC > 182 with large LE. Urine culture grew E.coli. Completed abx. 4) Acute kidney failure: Urine output low. Critically ill. Creatinine elevated. 5) Peripheral vascular disease: Right second toe ischemia and gangrene. 6) Diabetes mellitus type 2, uncontrolled. 7) Shock liver Recs: continue IV Cefepime (renally adjusted, dose changed to 1 gm q24 hrs) today is Day 8 of therapy, stop at Day 10 prognosis remains extremely poor, recommend palliative care Gaurav Cornelius MD [facility] C: [phone] O: [phone] F: [phone] Subjective Date of service: 03/08/19 Principal diagnosis: anemia Interval history: Remains unresponsive, on vent. Still on pressors. Objective - Exam Narrative Exam: Physical Exam: Constitutional: intubated, unresponsive Head, Ears, Nose: Normocephalic, atraumatic. External ears, nose normal Eyes: Conjunctivae/corneas clear. No icterus. No ptosis. Neck: Supple, no meningeal signs Oral: intubated Cardiovascular: S1, S2 normal. Respiratory: AE b/l equal. No crackles. GI: bowel sounds hypoactive. No peritoneal signs Musculoskeletal: Right second toe with blackish discoloration, right calf with dressing. b/l pedal edema + Skin: No rash or abscess Hem/Lymphatic: No palpable cervical or supraclavicular nodes. No lymphangitis Psych: no agitation Neurological: intubated, on vent, unresponsive - Constitutional Vitals: Vital Signs Temp Pulse Resp BP Pulse Ox 98.8 F 85 20 93/42 98 03/08/19 04:00 03/08/19 08:46 03/08/19 08:46 03/08/19 08:33 03/08/19 08:33 Temperature -Last 24 Hours Temperature 98.8 F Temperature 99.4 F Temperature 98.6 F Temperature 98.4 F Temperature 101.1 F - Labs CBC & Chem 7: 03/08/19 04:00 03/08/19 04:00 Labs: Abnormal lab results 03/07/19 03/07/19 03/07/19 Range/Units 11:03 16:31 17:49 Hgb (10.1-14.3) gm/dl Hct (30.3-42.9) % Plt Count (140-440) K/mm3 POC ABG pH (7.35-7.45) POC ABG pO2 (80-105) Potassium 5.7 H (3.6-5.0) mmol/L Carbon Dioxide (22-30) mmol/L BUN (7-17) mg/dL Creatinine (0.7-1.2) mg/dL POC Glucose 54 L (70-105) Calcium (8.4-10.2) mg/dL Ammonia 69.0 H (25-60) umol/L 03/08/19 03/08/19 03/08/19 Range/Units 00:20 04:00 04:00 Hgb 8.5 L (10.1-14.3) gm/dl Hct 27.3 L (30.3-42.9) % Plt Count 89 L (140-440) K/mm3 POC ABG pH (7.35-7.45) POC ABG pO2 (80-105) Potassium 5.9 H (3.6-5.0) mmol/L Carbon Dioxide 18 L (22-30) mmol/L BUN 60 H (7-17) mg/dL Creatinine 7.7 H (0.7-1.2) mg/dL POC Glucose 69 L (70-105) Calcium 7.9 L (8.4-10.2) mg/dL Ammonia (25-60) umol/L 03/08/19 Range/Units 04:03 Hgb (10.1-14.3) gm/dl Hct (30.3-42.9) % Plt Count (140-440) K/mm3 POC ABG pH 7.272 L (7.35-7.45) POC ABG pO2 72 L (80-105) Potassium (3.6-5.0) mmol/L Carbon Dioxide (22-30) mmol/L BUN (7-17) mg/dL Creatinine (0.7-1.2) mg/dL POC Glucose (70-105) Calcium (8.4-10.2) mg/dL Ammonia (25-60) umol/L
--- NOTE | 2019-03-08 10:55 | Progress Note ---
Assessment and Plan - Patient Problems (1) GERALDINE (acute kidney injury) Current Visit: Yes Status: Acute Plan to address problem: Acute kidney injury is acute tubular necrosis secondary to hypotension and sepsis. Kidney function is worsening. Patient is a poor candidate for renal replacement therapy. Discussions ongoing about considering hospice/palliative care. (2) Hyponatremia Current Visit: Yes Status: Acute Plan to address problem: Hypovolemic and also factitious secondary to hyperglycemia. Resolved. Follow- up sodium (3) Hyperkalemia Current Visit: Yes Status: Acute Plan to address problem: Secondary to decreased distal delivery of sodium needed for exchange for potassium in the distal tubules. Continue volume expansion. Potassium is high. Patient is a poor candidate for renal replacement therapy. Treat hyperkalemia medically, additional Kayexalate given, started na bicarb po 1300mg bid (4) Hyperosmolar non-ketotic state in patient with type 2 diabetes mellitus Current Visit: Yes Status: Acute Plan to address problem: Management of hyperglycemia per Primary attending (5) Peripheral vascular disease Current Visit: Yes Status: Chronic Plan to address problem: Recent thrombolysis complicated by compartment syndrome status post fasciotomy. (6) Sepsis Current Visit: Yes Status: Suspected Qualifiers: Qualified Code(s): A41.9 - Sepsis, unspecified organism Plan to address problem: secondary to urinary tract infection. Continue antibiotics are probably adjusted to the degree of renal function Subjective Date of service: 03/08/19 Principal diagnosis: anemia Interval history: pt remains intubated, sedated Objective - Vital Signs Vital signs: Vital Signs - 12hr 03/07/19 03/07/19 03/07/19 23:00 23:06 23:16 Temperature Pulse Rate 89 89 89 Pulse Rate [ Anterior Bilateral Throughout] Respiratory 20 20 20 Rate Respiratory Rate [Anterior Bilateral Throughout] Blood Pressure 157/76 157/76 146/17 O2 Sat by Pulse 95 95 Oximetry 03/07/19 03/07/19 03/07/19 23:28 23:30 23:45 Temperature Pulse Rate 89 90 89 Pulse Rate [ Anterior Bilateral Throughout] Respiratory 30 H 20 21 Rate Respiratory Rate [Anterior Bilateral Throughout] Blood Pressure 157/76 152/23 151/67 O2 Sat by Pulse 95 95 97 Oximetry 03/08/19 03/08/19 03/08/19 00:00 00:16 00:30 Temperature 99.4 F Pulse Rate 90 90 88 Pulse Rate [ Anterior Bilateral Throughout] Respiratory 20 20 19 Rate Respiratory Rate [Anterior Bilateral Throughout] Blood Pressure 164/22 136/25 139/38 O2 Sat by Pulse 95 92 Oximetry 03/08/19 03/08/19 03/08/19 00:45 01:00 01:15 Temperature Pulse Rate 92 H 91 H 90 Pulse Rate [ Anterior Bilateral Throughout] Respiratory 20 20 20 Rate Respiratory Rate [Anterior Bilateral Throughout] Blood Pressure 155/36 155/36 147/34 O2 Sat by Pulse 93 95 94 Oximetry 03/08/19 03/08/19 03/08/19 01:30 01:45 02:00 Temperature Pulse Rate 90 89 90 Pulse Rate [ Anterior Bilateral Throughout] Respiratory 20 20 20 Rate Respiratory Rate [Anterior Bilateral Throughout] Blood Pressure 155/44 152/39 147/31 O2 Sat by Pulse 93 94 94 Oximetry 03/08/19 03/08/19 03/08/19 02:10 02:15 02:25 Temperature Pulse Rate 89 Pulse Rate [ 89 91 H Anterior Bilateral Throughout] Respiratory 20 Rate Respiratory 20 20 Rate [Anterior Bilateral Throughout] Blood Pressure 166/44 O2 Sat by Pulse 96 Oximetry 03/08/19 03/08/19 03/08/19 02:30 02:45 03:00 Temperature Pulse Rate 89 91 H 91 H Pulse Rate [ Anterior Bilateral Throughout] Respiratory 20 20 20 Rate Respiratory Rate [Anterior Bilateral Throughout] Blood Pressure 165/51 141/26 146/47 O2 Sat by Pulse 97 94 94 Oximetry 03/08/19 03/08/19 03/08/19 03:15 03:30 03:45 Temperature Pulse Rate 91 H 90 Pulse Rate [ Anterior Bilateral Throughout] Respiratory 20 20 13 Rate Respiratory Rate [Anterior Bilateral Throughout] Blood Pressure 160/31 140/31 146/40 O2 Sat by Pulse 94 95 94 Oximetry 03/08/19 03/08/19 03/08/19 03:46 04:00 04:15 Temperature 98.8 F Pulse Rate 88 88 89 Pulse Rate [ Anterior Bilateral Throughout] Respiratory 30 H 18 20 Rate Respiratory Rate [Anterior Bilateral Throughout] Blood Pressure 146/40 140/60 156/36 O2 Sat by Pulse 95 93 96 Oximetry 03/08/19 03/08/19 03/08/19 04:30 04:45 05:00 Temperature Pulse Rate 90 90 89 Pulse Rate [ Anterior Bilateral Throughout] Respiratory 20 20 20 Rate Respiratory Rate [Anterior Bilateral Throughout] Blood Pressure 140/60 165/48 159/23 O2 Sat by Pulse 93 94 94 Oximetry 03/08/19 03/08/19 03/08/19 05:15 05:30 05:46 Temperature Pulse Rate 89 89 89 Pulse Rate [ Anterior Bilateral Throughout] Respiratory 20 20 20 Rate Respiratory Rate [Anterior Bilateral Throughout] Blood Pressure 131/49 146/43 152/47 O2 Sat by Pulse 93 93 96 Oximetry 03/08/19 03/08/19 03/08/19 06:00 06:15 06:30 Temperature Pulse Rate 88 88 88 Pulse Rate [ Anterior Bilateral Throughout] Respiratory 20 20 20 Rate Respiratory Rate [Anterior Bilateral Throughout] Blood Pressure 152/47 135/42 139/46 O2 Sat by Pulse 95 94 94 Oximetry 03/08/19 03/08/19 03/08/19 06:45 07:00 08:33 Temperature Pulse Rate 87 88 84 Pulse Rate [ Anterior Bilateral Throughout] Respiratory 20 20 Rate Respiratory Rate [Anterior Bilateral Throughout] Blood Pressure 142/29 121/15 93/42 O2 Sat by Pulse 94 100 98 Oximetry 03/08/19 03/08/19 08:37 08:46 Temperature Pulse Rate Pulse Rate [ 82 85 Anterior Bilateral Throughout] Respiratory Rate Respiratory 20 20 Rate [Anterior Bilateral Throughout] Blood Pressure O2 Sat by Pulse Oximetry - General Appearance General appearance: appears stated age, chronically ill, intubated EENT: ATNC, mucous membranes moist Neck: no JVD Respiratory: Present: Decreased Breath Sounds Cardiology: regular, S1S2 Gastrointestinal: normoactive bowel sounds, obese Integumentary: no rash, other (+ edema ) Neurologic: other (intubated ) - Lab 03/08/19 04:00 03/08/19 04:00 Most recent lab results Calcium 7.9 mg/dL (8.4-10.2) L 03/08/19 04:00 Phosphorus 4.50 mg/dL (2.5-4.5) 03/03/19 08:30 Magnesium 1.60 mg/dL (1.7-2.3) L 03/03/19 08:30 Medications & Allergies - Medications Allergies/Adverse Reactions: Allergies No Known Allergies Allergy (Verified 01/28/19 21:26) Home Medications: Home Medications Medication Instructions Recorded Confirmed Last Taken Type Aspirin [Low Dose Aspirin EC] 81 mg PO DAILY #30 tablet. 02/04/19 02/16/19 02/14/19 10:00 Rx Clopidogrel [Plavix] 75 mg PO QDAY #30 tablet 02/04/19 02/16/19 02/14/19 10:00 Rx Lispro Insulin [Humalog] 0 unit SUB-Q ACHS units 02/20/19 Unknown Rx Lispro Insulin [Humalog] 5 unit SUB-Q AC 30 Days units 02/20/19 Unknown Rx Multivitamin with Iron [Tab-A-Lupe 1 each PO DAILY #30 tablet 02/20/19 Unknown Rx with Iron] Valsartan [Diovan] 160 mg PO BID #60 tablet 02/20/19 Unknown Rx oxyCODONE /ACETAMINOPHEN [Percocet 1 tab PO Q6H PRN #20 tablet 02/20/19 Unknown Rx 5/325 mg] Insulin Glargine [Lantus VIAL] 22 units SUB-Q DAILY #1 vial 02/25/19 Unknown Rx Insulin Lispro [HumaLOG VIAL] 0 units SQ AC #1 vial 02/25/19 Unknown Rx Active Medications: Generic Name Dose Route Start Last Admin Trade Name Freq PRN Reason Stop Dose Admin Acetaminophen 650 mg 02/13/19 18:03 03/07/19 13:31 Tylenol PO 650 mg Q4H PRN Administration Pain MILD(1-3)/Fever >100.5/MARTÍNEZ Albuterol 2.5 mg 02/22/19 04:53 02/28/19 16:08 Proventil IH 2.5 mg Q6HRT PRN Administration Shortness Of Breath Albuterol/Ipratropium 1 ampul 02/28/19 16:45 03/08/19 08:37 Duoneb *Not For Prn Use* IH 1 ampul Q6HRT RAFAEL Administration Aspirin 325 mg 02/28/19 19:00 03/08/19 10:43 Aspirin PO 325 mg QDAY RAFAEL Administration Dextrose 25 gm 03/07/19 17:00 D50w (25gm) Vial IV PRN PRN Hypoglycemia Fentanyl 50 mcg 02/28/19 21:01 Sublimaze IV Q10MIN PRN ANALGESIA Furosemide 80 mg 03/03/19 10:00 03/07/19 17:37 Lasix IV 80 mg 0600,1800 RAFALE Administration Hydralazine HCl 10 mg 03/02/19 15:28 Apresoline IV Q4HR PRN BP >180/110 Hydrophilic Ointment 1 applic 02/28/19 21:29 Vaseline Lip Therapy TP Q2HR PRN Dry Lips Fentanyl Citrate 2,000 mcg in 100 mls @ 5.665 mls/hr 02/28/19 22:00 03/01/19 00:46 Fentanyl Drip Premix IV 0 mcg/kg/hr TITR RAFAEL 0 mls/hr Titration Protocol 1 MCG/KG/HR Dopamine HCl/Dextrose 800 mg in 250 mls @ 4.249 mls/hr 03/01/19 01:35 03/02/19 00:13 Intropin Drip 800 Mg/D5w 250 Ml IV 0 mcg/kg/min TITR RAFAEL 0 mls/hr Titration Protocol 2 MCG/KG/MIN Sodium Chloride 1,000 mls @ 42 mls/hr 03/02/19 10:00 03/08/19 00:27 Nacl 0.9% 1000 Ml IV 42 mls/hr DIRECT RAFAEL Administration Dobutamine HCl/Dextrose 500 mg in 250 mls @ 16.995 mls/hr 03/04/19 11:00 03/04/19 23:30 Dobutrex Drip 500mg/D5w 250ml IV 0 mcg/kg/min DIRECT RAFAEL 0 mls/hr Infusion 5 MCG/KG/MIN Norepinephrine 8 mg/ Sodium 250 mls @ 3.75 mls/hr 03/04/19 21:00 03/08/19 09:00 Chloride IV 8 mcg/min TITR RAFAEL 15 mls/hr Titration Protocol 2 MCG/MIN Cefepime HCl 1 gm in 100 mls @ 200 mls/hr 03/07/19 18:00 03/07/19 17:28 Maxipime/Ns 1 Gm/100 Ml IV 200 mls/hr QPM RAFAEL Administration Protocol Insulin Glargine 30 units 03/05/19 14:04 03/07/19 11:01 Lantus SUB-Q 30 units DAILY RAFAEL Administration Insulin Human Lispro 0 unit 03/03/19 12:00 03/08/19 01:02 Humalog SUB-Q Not Given Q4H RAFAEL Protocol Multi-Ingred Cream/Lotion/Oil/Oint 1 applic 03/03/19 10:39 03/03/19 11:07 Artificial Tears Ophth Oint OU 1 applic PRN PRN Administration Dry Eye(s) Ondansetron HCl 4 mg 02/13/19 18:03 Zofran IV Q8H PRN Nausea And Vomiting Pantoprazole Sodium 40 mg 03/02/19 22:00 03/08/19 10:44 Protonix IV 40 mg BID RAFAEL Administration Sodium Bicarbonate 1,300 mg 03/08/19 11:00 Sodium Bicarbonate FEEDTUBE BID RAFAEL Sodium Chloride 10 ml 02/13/19 22:00 03/08/19 10:44 Sodium Chloride Flush Syringe 10 Ml IV 10 ml BID RAFAEL Administration Sodium Chloride 10 ml 02/13/19 18:03 Sodium Chloride Flush Syringe 10 Ml IV PRN PRN LINE FLUSH Sodium Polystyrene Sulfonate 30 gm 03/08/19 10:51 Kionex PO 03/08/19 10:52 ONCE ONE
--- NOTE | 2019-03-08 11:30 | Progress Note ---
Assessment and Plan Cont supportive measures, vasopressor support. Overall poor prognosis. Will follow on as needed basis. The patient has been seen in conjunction with Dr. Centeno who agrees with the assessment and plan of care. - Patient Problems (1) Cardiopulmonary arrest with successful resuscitation Current Visit: Yes Status: Acute (2) Acute HFrEF (heart failure with reduced ejection fraction) Current Visit: Yes Status: Acute (3) NSTEMI (non-ST elevated myocardial infarction) Current Visit: Yes Status: Acute (4) Acute respiratory failure Current Visit: Yes Status: Acute (5) GERALDINE (acute kidney injury) Current Visit: Yes Status: Acute (6) Hyperkalemia Current Visit: Yes Status: Acute (7) Sepsis Current Visit: Yes Status: Suspected Qualifiers: Sepsis type: sepsis due to unspecified organism Qualified Code(s): A41.9 - Sepsis, unspecified organism (8) Severe anemia Current Visit: Yes Status: Acute (9) Peripheral vascular disease Current Visit: Yes Status: Chronic (10) 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 Objective Last Vital Signs Temp 98.8 F 03/08/19 04:00 Pulse 91 H 03/08/19 11:25 Resp 20 03/08/19 08:46 BP 122/34 03/08/19 11:25 Pulse Ox 95 03/08/19 11:25 - Physical Examination General: Other (intubated, nonresponsive) Cardiac: Positive: Reg Rate and Rhythm, S1/S2 Lungs: Positive: Decreased Breath Sounds, Oxygen, Ventilated Respirations Neuro: Positive: Other (intubated, nonresponsive) Skin: Positive: Other (RLE gangrene). Negative: Rash Extremities: Present: +2 Edema (RLE > LLE) - Labs and Meds CBC 03/08/19 Range/Units 04:00 Hgb 8.5 L (10.1-14.3) gm/dl Hct 27.3 L (30.3-42.9) % Plt Count 89 L (140-440) K/mm3 Comprehensive Metabolic Panel 03/07/19 03/08/19 Range/Units 17:49 04:00 Sodium 139 (137-145) mmol/L Potassium 5.7 H 5.9 H (3.6-5.0) mmol/L Chloride 102.2 (98-107) mmol/L Carbon Dioxide 18 L (22-30) mmol/L BUN 60 H (7-17) mg/dL Creatinine 7.7 H (0.7-1.2) mg/dL Glucose 88 (65-100) mg/dL Calcium 7.9 L (8.4-10.2) mg/dL - Imaging and Cardiology EKG: report reviewed, image reviewed Echo: report reviewed (03/01/2019: EF 25-30%, apical septal and apical lateral wall segments are akinetic. 02/14/2019 showed EF 55-60%, mild LVH, mild with peak gradient 24 and mean 11, mild AR. ) - EKG Sinus rhythms and dysrhythmias: sinus rhythm - Allied health notes Allied health notes reviewed: nursing
[2019-03-08] MEDS ORDERED: KIONEX PO ONE ×2 (12:00→15:00)
--- NOTE | 2019-03-08 12:52 | Progress Note ---
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 CT head; no acute findings CXR no acute findings Labs; UA > 182 WBC Micro; urine and blood growing ecoli sens to current abx Diagnosis sepsis, ecoli Bactermia and Ecoli UTI PNA? Acute hypoxic respiratory failure anemia, likely due to chronic disease and critical illness HHNK, Type 2 DM, A1c 9 Hyponatremia, likely pseudohyponatremia of hyperglycemia Hyperkalemia GERALDINE- likely ATN Hypomagesemia- resolved PAD hx of RLE ischemia, sp thrombolysis, revascularization and fascitomy dry gangrene, R second toe Rhabdomylsis, non traumatic acute metabolic encephalopathy Fluid overload Acute cva RI Anoxic encephalopathy Acute kidney injury due to ATN Shock liver/transaminitis Distributive shock Plan * UTI/bacteremia; The patient had sepsis due to Escherichia coli bacteremia and Escherichia coli UTI. She completed a course of antibiotics for that on 02/20 * The patient had some necrotic tissue on her right leg, she was seen by vascular surgery, status post debridement of right leg on 02/20, necrotic tissue was removed. 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 Imaging showed infiltrates, she received Lasix after which infiltrate completely resolved. Therefore it was due to vascular congestion, pneumonia was at that time ruled out. VQ scan and lower extremity Dopplers were negative which at that time excluded VTE. Her respiratory status was improving, she was being weaned off oxygen. Echo showed preserved EF * She initially presented with severe hyperglycemia, she was treated with insulin and IV fluids, she was put on bolus and basal insulin and her sugars improved * She had hypomagnesemia, and if her magnesium was repleted. She also had elevated potassium for which she received single dose of Kayexalate on 02/17 * The patient was improving and was planned for rehabilitation placement, but unfortunately she had a decline * received multiple units of pr she had anemia, bc, first unit on 02/18, then had another drop in hct after code blue on 03/01 after which she got another 3 units, ; seen by GI, they did not suspect acute GI bleed. * 02/28, she developed chest pain or shortness of breath, put on anticoagulation, was being seen by cardiology for possible RI, as PE was again suspected, anticoagulation was later discontinued due to anemia * 03/01, she became pulseless, ROZ RAZA was called, she received CPR, had ROSC was then intubated and sedated, but per her family was only moving her right side at that time, she was on pressors and was too unstable to go to CT scan * 03/02, the patient was more stable, therefore she was taking for CT scan which confirmed subacute cerebral stroke, at this time the patient was now completely obtunded, not responsive to painful stimuli, and only had a gag reflex, fixed pupils and absence of most reflexes. Stroke protocol place, neurology consult placed. Patient already on aspirin, unable to tolerate statins due to markedly elevated LFTs, this is most likely due to shock liver, the patient remains pressor dependent * 03/03, the patient now has no reflexes, no gag reflex, no corneal reflex. Prognosis is very poor at this time, family meeting planned for tomorrow. Nuclear medicine brain flow scan ordered. * 03/04, brain flow scan unequivocal, minimal blood flow, [facility] neurolgy, plan for EEG, had family meeting and discussed goals of care, advance directives and prognosis, time spent was 60 minutes, repleted calcium * 03/05, EEG shows no activity with provocation, [facility] Neurologist, patient is now brain , awaiting family who are traveling from [place] prior to pronouncing, plan to pronounce after family travels to say their good bye. Called her sis Moreno 3 times at [phone], unable to leave voicemail. nurse made aware to call me if family comes to the hospital, has worsening GERALDINE, and has mild hyperkalemia, cont conservative measure, not a candidate for HD, [facility] nephrology, remains vent and pressor dependent * 03/06 and 03/07; patient is brain since 03/05, we were waiting for family to arrive to pronounce her. * 03/08; family meeting held, explained that patient is brain to aunt and two sisters, they are awaiting the arrival of her brothers from [place] on 03/09, [facility] telephonic nurse case manager and risk mgt Patient is clinically brain , a CCT 33 minutes History Interval history: The patient is obtunded, intubated, not on sedation No vomiting, no seizures, no agitation. Patient has been nonresponsive Hospitalist Physical - Physical exam Narrative exam: General.: Obtunded, appears ill HEENT: Corneal edema noted Neck: supple Cardiac: S1-S2 heard Lungs: Ventilated breath sounds Abdomen: soft , nontender, nondistended, bowel sounds positive Extremities: Bilateral lower extremity bandages noted, bandages to right lower extremity when not removed on my exam Skin: no rash or lesions Neurologic: The patient does not open her eyes, does not move any extremities, does not respond to painful stimuli, she lacks any brainstem reflexes, gag reflex absence - Constitutional Vitals: Temp Pulse Resp BP Pulse Ox 98.8 F 91 H 20 122/34 95 03/08/19 04:00 03/08/19 11:25 03/08/19 08:46 03/08/19 11:25 03/08/19 11:25 General appearance: Present: other (intubated, nonresponsive, off sedation ) Results - Labs CBC & Chem 7: 03/08/19 04:00 03/08/19 04:00 Labs: Laboratory Last Values WBC 14.0 K/mm3 (4.5-11.0) H 03/03/19 08:30 RBC 3.52 M/mm3 (3.65-5.03) L 03/03/19 08:30 Hgb 8.5 gm/dl (10.1-14.3) L 03/08/19 04:00 Hct 27.3 % (30.3-42.9) L 03/08/19 04:00 MCV 85 fl (79-97) 03/03/19 08:30 MCH 28 pg (28-32) 03/03/19 08:30 MCHC 33 % (30-34) 03/03/19 08:30 RDW 16.6 % (13.2-15.2) H 03/03/19 08:30 Plt Count 89 K/mm3 (140-440) L 03/08/19 04:00 Lymph % (Auto) Leach Cell Operator 02/17/19 10:41 [place] % (Auto) Leach Cell Operator 02/17/19 10:41 Eos % (Auto) Leach Cell Operator 02/17/19 10:41 Baso % (Auto) Leach Cell Operator 02/17/19 10:41 Lymph # Leach Cell Operator 02/17/19 10:41 [place] # Leach Cell Operator 02/17/19 10:41 Eos # Leach Cell Operator 02/17/19 10:41 Baso # Leach Cell Operator 02/17/19 10:41 Add Manual Diff Complete 03/03/19 08:30 Total Counted 100 03/03/19 08:30 Seg Neutrophils % Leach Cell Operator 02/17/19 10:41 Seg Neuts % (Manual) 92.0 % (40.0-70.0) H 03/03/19 08:30 Band Neutrophils % 0 % 03/03/19 08:30 Lymphocytes % (Manual) 5.0 % (13.4-35.0) L 03/03/19 08:30 Reactive Lymphs % (Man) 0 % 03/03/19 08:30 Monocytes % (Manual) 1.0 % (0.0-7.3) 03/03/19 08:30 Eosinophils % (Manual) 0 % (0.0-4.3) 03/03/19 08:30 Basophils % (Manual) 0 % (0.0-1.8) 03/03/19 08:30 Metamyelocytes % 1.0 % 03/03/19 08:30 Myelocytes % 1.0 % 03/03/19 08:30 Promyelocytes % 0 % 03/03/19 08:30 Blast Cells % 0 % 03/03/19 08:30 Nucleated RBC % 13.0 % (0.0-0.9) H 03/03/19 08:30 Seg Neutrophils # Leach Cell Operator 02/17/19 10:41 Seg Neutrophils # Man 0.0 K/mm3 (1.8-7.7) L 03/03/19 08:30 Band Neutrophils # 0.0 K/mm3 03/03/19 08:30 Lymphocytes # (Manual) 0.0 K/mm3 (1.2-5.4) L 03/03/19 08:30 Abs React Lymphs (Man) 0.0 K/mm3 03/03/19 08:30 Monocytes # (Manual) 0.0 K/mm3 (0.0-0.8) 03/03/19 08:30 Eosinophils # (Manual) 0.0 K/mm3 (0.0-0.4) 03/03/19 08:30 Basophils # (Manual) 0.0 K/mm3 (0.0-0.1) 03/03/19 08:30 Metamyelocytes # 0.0 K/mm3 03/03/19 08:30 Myelocytes # 0.0 K/mm3 03/03/19 08:30 Promyelocytes # 0.0 K/mm3 03/03/19 08:30 Blast Cells # 0.0 K/mm3 03/03/19 08:30 WBC Morphology Not Reportable 03/03/19 08:30 Hypersegmented Neuts Not Reportable 03/03/19 08:30 Hyposegmented Neuts Not Reportable 03/03/19 08:30 Hypogranular Neuts Not Reportable 03/03/19 08:30 Smudge Cells Not Reportable 03/03/19 08:30 Toxic Granulation Not Reportable 03/03/19 08:30 Toxic Vacuolation Not Reportable 03/03/19 08:30 Dohle Bodies Not Reportable 03/03/19 08:30 Pelger-Huet Anomaly Not Reportable 03/03/19 08:30 Cisco Rods Not Reportable 03/03/19 08:30 Platelet Estimate Consistent w auto 03/03/19 08:30 Clumped Platelets Not Reportable 03/03/19 08:30 Plt Clumps, EDTA Not Reportable 03/03/19 08:30 Large Platelets Few 03/03/19 08:30 Giant Platelets Not Reportable 03/03/19 08:30 Platelet Satelliting Not Reportable 03/03/19 08:30 Plt Morphology Comment Not Reportable 03/03/19 08:30 RBC Morphology Not Reportable 03/03/19 08:30 Dimorphic RBCs Not Reportable 03/03/19 08:30 Polychromasia Not Reportable 03/03/19 08:30 Hypochromasia Not Reportable 03/03/19 08:30 Poikilocytosis Not Reportable 03/03/19 08:30 Anisocytosis 1+ 03/03/19 08:30 Microcytosis Not Reportable 03/03/19 08:30 Macrocytosis Not Reportable 03/03/19 08:30 Spherocytes Not Reportable 03/03/19 08:30 Pappenheimer Bodies Not Reportable 03/03/19 08:30 Sickle Cells Not Reportable 03/03/19 08:30 Target Cells Not Reportable 03/03/19 08:30 Tear Drop Cells Not Reportable 03/03/19 08:30 Ovalocytes Not Reportable 03/03/19 08:30 Helmet Cells Not Reportable 03/03/19 08:30 Starkey-Minneiska Bodies Not Reportable 03/03/19 08:30 Gervais Rings Not Reportable 03/03/19 08:30 Vipul Cells Not Reportable 03/03/19 08:30 Bite Cells Not Reportable 03/03/19 08:30 Crenated Cell Not Reportable 03/03/19 08:30 Elliptocytes Not Reportable 03/03/19 08:30 Acanthocytes (Spur) Not Reportable 03/03/19 08:30 Rouleaux Not Reportable 03/03/19 08:30 Hemoglobin C Crystals Not Reportable 03/03/19 08:30 Schistocytes Not Reportable 03/03/19 08:30 Malaria parasites Not Reportable 03/03/19 08:30 Augusto Bodies Not Reportable 03/03/19 08:30 Hem Pathologist Commnt No 03/03/19 08:30 PT 15.5 Sec. (12.2-14.9) H 02/28/19 18:33 INR 1.16 (0.87-1.13) H 02/28/19 18:33 APTT 29.5 Sec. (24.2-36.6) 02/28/19 18:33 Fibrinogen 333 mg/dl (211-480) 03/03/19 13:38 D-Dimer > 90763 ng/mlDDU (0-234) H 03/03/19 13:38 Heparin Anti-Xa Level 0.42 U.I./ml (0.3-0.7) 03/01/19 00:48 POC ABG pH 7.272 (7.35-7.45) L 03/08/19 04:03 POC ABG pCO2 38.6 (35-45) 03/08/19 04:03 POC ABG pO2 72 (80-105) L 03/08/19 04:03 POC ABG HCO3 17.8 (22-26 mml/L) 03/08/19 04:03 POC ABG Total CO2 19 (23-27mmol/L) 03/08/19 04:03 POC ABG O2 Sat 92 03/08/19 04:03 POC ABG Base Excess -9 ((-2) - (+3)mmol/L) 03/08/19 04:03 VBG pH 7.379 (7.320-7.420) 02/13/19 14:08 FiO2 35 % 03/08/19 04:03 Sodium 139 mmol/L (137-145) 03/08/19 04:00 Potassium 5.9 mmol/L (3.6-5.0) H 03/08/19 04:00 Chloride 102.2 mmol/L (98-107) 03/08/19 04:00 Carbon Dioxide 18 mmol/L (22-30) L 03/08/19 04:00 Anion Gap 25 mmol/L 03/08/19 04:00 BUN 60 mg/dL (7-17) H 03/08/19 04:00 Creatinine 7.7 mg/dL (0.7-1.2) H 03/08/19 04:00 Estimated GFR 7 ml/min 03/08/19 04:00 BUN/Creatinine Ratio 8 % 03/08/19 04:00 Glucose 88 mg/dL (65-100) 03/08/19 04:00 POC Glucose 99 (70-105) 03/08/19 02:55 Hemoglobin A1c 9.2 % (4-6) H 02/13/19 18:15 Ketones Quantitative Negative (Negative) 02/13/19 14:08 Lactic Acid 3.50 mmol/L (0.7-2.0) H* 03/04/19 08:08 Calcium 7.9 mg/dL (8.4-10.2) L 03/08/19 04:00 Phosphorus 4.50 mg/dL (2.5-4.5) 03/03/19 08:30 Magnesium 1.60 mg/dL (1.7-2.3) L 03/03/19 08:30 Total Bilirubin 1.20 mg/dL (0.1-1.2) 03/07/19 09:53 Direct Bilirubin 1.1 mg/dL (0-0.2) H 03/07/19 09:53 Indirect Bilirubin 0.1 mg/dL 03/07/19 09:53 AST 117 units/L (5-40) H 03/07/19 09:53 ALT 273 units/L (7-56) H 03/07/19 09:53 Alkaline Phosphatase 298 units/L (35-129) H 03/07/19 09:53 Ammonia 69.0 umol/L (25-60) H 03/07/19 11:03 Total Creatine Kinase 165 units/L (30-135) H 02/28/19 18:33 CK-MB (CK-2) 4.9 ng/mL (0.0-4.0) H 02/28/19 18:33 CK-MB (CK-2) Rel Index 2.9 (0-4) 02/28/19 18:33 Troponin T 13.790 ng/mL (0.00-0.029) H* D 03/02/19 04:20 NT-Pro-B Natriuret Pep 6167 pg/mL (0-900) H 02/13/19 14:15 Total Protein 4.4 g/dL (6.3-8.2) L 03/07/19 09:53 Albumin 1.5 g/dL (3.9-5) L 03/07/19 09:53 Albumin/Globulin Ratio 0.5 % 03/07/19 09:53 Triglycerides 329 mg/dL (2-149) H 02/13/19 14:20 Cholesterol 159 mg/dL (50-199) 02/13/19 14:20 LDL Cholesterol Direct 36 mg/dL (50-130) L 02/13/19 14:20 HDL Cholesterol 17 mg/dL (40-59) L 02/13/19 14:20 Cholesterol/HDL Ratio 9.35 % 02/13/19 14:20 Amylase 34 units/L (27-131) 03/01/19 00:48 Urine Color Steffi (Yellow) 03/02/19 20:29 Urine Turbidity Slightly-cloudy (Clear) 03/02/19 20:29 Urine pH 6.0 (5.0-7.0) 03/02/19 20:29 Ur Specific [place] 1.011 (1.003-1.030) 03/02/19 20:29 Urine Protein 100 mg/dl mg/dL (Negative) 03/02/19 20:29 Urine Glucose (UA) 50 mg/dL (Negative) 03/02/19 20:29 Urine Ketones Neg mg/dL (Negative) 03/02/19 20:29 Urine Blood Lg (Negative) 03/02/19 20:29 Urine Nitrite Neg (Negative) 03/02/19 20:29 Urine Bilirubin Neg (Negative) 03/02/19 20:29 Urine Urobilinogen < 2.0 mg/dL (<2.0) 03/02/19 20:29 Ur Leukocyte Esterase Mod (Negative) 03/02/19 20:29 Urine WBC (Auto) 17.0 /HPF (0.0-6.0) H 03/02/19 20:29 Urine RBC (Auto) 29.0 /HPF (0.0-6.0) 03/02/19 20:29 U Epithel Cells (Auto) 1.0 /HPF (0-13.0) 02/14/19 09:07 Urine Bacteria (Auto) 2+ /HPF (Negative) 03/02/19 20:29 Urine WBC Clumps 3+ /HPF 02/14/19 09:07 Ur Transition Epith Cell 1 /HPF 02/14/19 09:07 Urine Mucus Few /HPF 02/14/19 09:07 Urine Yeast (Budding) 3+ /HPF 03/02/19 20:29 Urine Eosinophils None seen (None Seen) 03/01/19 06:50 Vancomycin Trough 14.5 ug/mL (5.0-20.0) 02/15/19 05:32 Random Vancomycin 22.7 ug/mL (0-40.0) 03/04/19 05:15 Urine Opiates Screen Presumptive negative 02/14/19 09:07 Urine Methadone Screen Presumptive negative 02/14/19 09:07 Ur Barbiturates Screen Presumptive negative 02/14/19 09:07 Ur Phencyclidine Scrn Presumptive negative 02/14/19 09:07 Ur Amphetamines Screen Presumptive negative 02/14/19 09:07 U Benzodiazepines Scrn Presumptive negative 02/14/19 09:07 Urine Cocaine Screen Presumptive negative 02/14/19 09:07 U Marijuana (THC) Screen Presumptive negative 02/14/19 09:07 Drugs of Abuse Note Disclamer 02/14/19 09:07 Blood Type B POSITIVE 03/01/19 07:30 Antibody Screen Negative 03/01/19 07:30 Crossmatch See Detail 03/01/19 07:30 Active Medications - Current Medications Current Medications: Generic Name Dose Route Start Last Admin Trade Name Freq PRN Reason Stop Dose Admin Acetaminophen 650 mg 02/13/19 18:03 03/07/19 13:31 Tylenol PO 650 mg Q4H PRN Administration Pain MILD(1-3)/Fever >100.5/MARTÍNEZ Albuterol 2.5 mg 02/22/19 04:53 02/28/19 16:08 Proventil IH 2.5 mg Q6HRT PRN Administration Shortness Of Breath Albuterol/Ipratropium 1 ampul 02/28/19 16:45 03/08/19 08:37 Duoneb *Not For Prn Use* IH 1 ampul Q6HRT RAFAEL Administration Aspirin 325 mg 02/28/19 19:00 03/08/19 10:43 Aspirin PO 325 mg QDAY RAFAEL Administration Dextrose 25 gm 03/07/19 17:00 D50w (25gm) Vial IV PRN PRN Hypoglycemia Dextrose 50 ml 03/08/19 13:00 D50w (25gm) Syringe IV 03/08/19 13:01 ONCE ONE Fentanyl 50 mcg 02/28/19 21:01 Sublimaze IV Q10MIN PRN ANALGESIA Furosemide 80 mg 03/03/19 10:00 03/07/19 17:37 Lasix IV 80 mg 0600,1800 RAFAEL Administration Hydralazine HCl 10 mg 03/02/19 15:28 Apresoline IV Q4HR PRN BP >180/110 Hydrophilic Ointment 1 applic 02/28/19 21:29 Vaseline Lip Therapy TP Q2HR PRN Dry Lips Fentanyl Citrate 2,000 mcg in 100 mls @ 5.665 mls/hr 02/28/19 22:00 03/01/19 00:46 Fentanyl Drip Premix IV 0 mcg/kg/hr TITR RAFAEL 0 mls/hr Titration Protocol 1 MCG/KG/HR Dopamine HCl/Dextrose 800 mg in 250 mls @ 4.249 mls/hr 03/01/19 01:35 03/02/19 00:13 Intropin Drip 800 Mg/D5w 250 Ml IV 0 mcg/kg/min TITR RAFAEL 0 mls/hr Titration Protocol 2 MCG/KG/MIN Sodium Chloride 1,000 mls @ 42 mls/hr 03/02/19 10:00 03/08/19 00:27 Nacl 0.9% 1000 Ml IV 42 mls/hr DIRECT RAFAEL Administration Dobutamine HCl/Dextrose 500 mg in 250 mls @ 16.995 mls/hr 03/04/19 11:00 03/04/19 23:30 Dobutrex Drip 500mg/D5w 250ml IV 0 mcg/kg/min DIRECT RAFAEL 0 mls/hr Infusion 5 MCG/KG/MIN Norepinephrine 8 mg/ Sodium 250 mls @ 3.75 mls/hr 03/04/19 21:00 03/08/19 11:00 Chloride IV 10 mcg/min TITR RAFAEL 18.75 mls/hr Titration Protocol 2 MCG/MIN Cefepime HCl 1 gm in 100 mls @ 200 mls/hr 03/07/19 18:00 03/07/19 17:28 Maxipime/Ns 1 Gm/100 Ml IV 200 mls/hr QPM RAFAEL Administration Protocol Insulin Glargine 30 units 03/05/19 14:04 03/07/19 11:01 Lantus SUB-Q 30 units DAILY RAFAEL Administration Insulin Human Lispro 0 unit 03/03/19 12:00 03/08/19 01:02 Humalog SUB-Q Not Given Q4H [facility] Protocol Multi-Ingred Cream/Lotion/Oil/Oint 1 applic 03/03/19 10:39 03/03/19 11:07 Artificial Tears Ophth Oint OU 1 applic PRN PRN Administration Dry Eye(s) Ondansetron HCl 4 mg 02/13/19 18:03 Zofran IV Q8H PRN Nausea And Vomiting Pantoprazole Sodium 40 mg 03/02/19 22:00 03/08/19 10:44 Protonix IV 40 mg BID RAFAEL Administration Sodium Bicarbonate 1,300 mg 03/08/19 12:00 Sodium Bicarbonate FEEDTUBE BID RAFAEL Sodium Chloride 10 ml 02/13/19 22:00 03/08/19 10:44 Sodium Chloride Flush Syringe 10 Ml IV 10 ml BID RAFAEL Administration Sodium Chloride 10 ml 02/13/19 18:03 Sodium Chloride Flush Syringe 10 Ml IV PRN PRN LINE FLUSH Nutrition/Malnutrition Assess - Dietary Evaluation Nutrition/Malnutrition Findings: Nutrition Notes Start: 02/19/19 14 :33 Freq: Status: Active Protocol: Document 03/07/19 11:27 LORENZO (Rec: 03/07/19 11:34 LORENZO SRW- [email or web address]) Nutrition Notes Initial or Follow up Assessment Current Diagnosis Acute Kidney Injury, Respiratory Failure,Stroke Other Pertinent Diagnosis MSOF Current Diet NPO Labs/Tests K 5.9 BUN 56 Cr 6.8 Elevated LFTs Pertinent Medications Dobutamine gtt, Dopamine gtt, Levophed gtt, Lasix Height 5 ft 3 in Weight 113.3 kg [place] Body Weight (kg) 52.27 BMI 44.2 Subjective/Other Information Pt transferred to CCU and has been NPO for 7 days today. She is on vent support with poor prognosis. Per MD note, pt pronounced brain as of 03/05/19. Awaiting family arrival. #1 Nutrition Diagnosis Inadequate oral intake Etiology [facility] ventilation As Evidenced by Signs and Symptoms pt been NPO for past 7 days Is patient on ventilator? Yes Is Patient Ambulatory and/or Out of Bed No REE-([facility]-confined to bed) 2021.756 Kcal/Kg value to use for calculation 14 Approximate Energy Requirements Using 1586 kcal/Kg Calculation Used for Recommendations Kcal/kg Additional Notes Pro needs 2.5g/kg IBW: 131g/ day Fluid needs per MD. Nutrition Intervention Nutrition Support: Comfort care measures Follow-Up By: 03/09/19 Additional Comments F/U: POC; Day 9 NPO, wt
[2019-03-08] MEDS ORDERED: D50W (25GM) Syringe IV ONE (13:00)
[2019-03-08] MEDS: D10W 1,000 ML IV SCH (14:14)
[2019-03-08] MEDS: SODIUM BICARBONATE FEEDTUBE SCH ×2 (14:14→23:00)
--- NOTE | 2019-03-08 15:39 | XRay Report ---
PROCEDURE: XR CHEST 1V AP TECHNIQUE: Chest radiograph, AP portable semierect upright view. HISTORY: Hypoxemia with pleural effusion COMPARISONS: Chest x-ray March 06, 2019. FINDINGS: Hypoaerated lungs accentuate the pulmonary markings and cardiac silhouette. Mild cardiomegaly. Prominent bilateral pulmonary markings with airspace opacities. No pneumothorax. Bilateral pleural ef fusions. No large consolidation. There are no suspicious osseous lesions. Endotracheal tube tip is approximately 2.1 cm above the bharathi. Recommend repositioning at 5 cm above bharathi. Enteric tube extends into the stomach with the tip beyond the margins of the film. IMPRESSION: * Prominent bilateral pulmonary markings suggest pulmonary vascular congestion. Differential diagnos is includes acute pneumonitis and pneumonia. Overall slightly worse compared to prior. * Bilateral pleural effusions. * Recommend repositioning of the endotracheal tube. * Golden level II reporting initiated. This document is electronically signed by Brendon Amin MD., March 08 2019 03:37:40 PM ET
[2019-03-08] MEDS: MAXIPIME/NS 1 GM/100 ML 1 GM/100 ML BAG IV SCH (18:29)
[2019-03-09] MEDS: DUONEB *Not for PRN Use IH SCH ×4 (01:07→20:08)
[2019-03-09] MEDS: LEVOPHED 8 MG in NACL 0.9% 250ML 242 ML IV SCH ×2 (03:06→15:39)
[2019-03-09] MEDS: HumaLOG SUB-Q SCH ×7 (05:34→21:30)
[2019-03-09] MEDS: SODIUM CHLORIDE FLUSH SYRINGE 10 ML IV SCH ×2 (10:15→16:23)
--- NOTE | 2019-03-09 10:40 | Progress Note ---
Assessment and Plan - Patient Problems (1) GERALDINE (acute kidney injury) Current Visit: Yes Status: Acute Plan to address problem: Acute kidney injury is acute tubular necrosis secondary to hypotension and sepsis. Kidney function is worsening. Patient is a poor candidate for renal replacement therapy. Discussions ongoing about considering hospice/palliative care. (2) Hyponatremia Current Visit: Yes Status: Acute Plan to address problem: Hypovolemic and also factitious secondary to hyperglycemia. Resolved. Follow- up sodium (3) Hyperkalemia Current Visit: Yes Status: Acute Plan to address problem: Secondary to decreased distal delivery of sodium needed for exchange for potassium in the distal tubules. Continue volume expansion. Potassium is high. Patient is a poor candidate for renal replacement therapy. Treat hyperkalemia medically, additional Kayexalate given, started na bicarb po 1300mg bid (4) Hyperosmolar non-ketotic state in patient with type 2 diabetes mellitus Current Visit: Yes Status: Acute Plan to address problem: Management of hyperglycemia per Primary attending (5) Peripheral vascular disease Current Visit: Yes Status: Chronic Plan to address problem: Recent thrombolysis complicated by compartment syndrome status post fasciotomy. (6) Sepsis Current Visit: Yes Status: Suspected Qualifiers: Sepsis type: sepsis due to unspecified organism Qualified Code(s): A41.9 - Sepsis, unspecified organism Plan to address problem: secondary to urinary tract infection. Continue antibiotics are probably adjusted to the degree of renal function Subjective Date of service: 03/09/19 Principal diagnosis: anemia Interval history: pt remains intubated, unresponsive Objective - Vital Signs Vital signs: Vital Signs - 12hr 03/08/19 03/08/19 03/08/19 22:45 23:00 23:10 Temperature 98.2 F Pulse Rate 89 88 Pulse Rate [ Anterior Bilateral Throughout] Respiratory 20 20 Rate Respiratory Rate [Anterior Bilateral Throughout] Blood Pressure 147/35 148/30 O2 Sat by Pulse 93 94 Oximetry 03/08/19 03/08/19 03/08/19 23:15 23:30 23:45 Temperature Pulse Rate 91 H 88 89 Pulse Rate [ Anterior Bilateral Throughout] Respiratory 20 20 20 Rate Respiratory Rate [Anterior Bilateral Throughout] Blood Pressure 131/28 134/26 140/26 O2 Sat by Pulse 93 94 94 Oximetry 03/09/19 03/09/19 03/09/19 00:00 00:15 00:19 Temperature Pulse Rate 88 88 88 Pulse Rate [ Anterior Bilateral Throughout] Respiratory 20 20 Rate Respiratory Rate [Anterior Bilateral Throughout] Blood Pressure 150/36 157/28 157/28 O2 Sat by Pulse 92 93 95 Oximetry 03/09/19 03/09/19 03/09/19 00:30 00:46 01:00 Temperature Pulse Rate 87 88 87 Pulse Rate [ Anterior Bilateral Throughout] Respiratory 20 20 20 Rate Respiratory Rate [Anterior Bilateral Throughout] Blood Pressure 162/27 148/25 143/28 O2 Sat by Pulse 94 94 94 Oximetry 03/09/19 03/09/19 03/09/19 01:08 01:15 01:30 Temperature Pulse Rate 87 87 Pulse Rate [ 89 Anterior Bilateral Throughout] Respiratory 20 20 Rate Respiratory 20 Rate [Anterior Bilateral Throughout] Blood Pressure 132/30 147/19 O2 Sat by Pulse 95 95 Oximetry 03/09/19 03/09/19 03/09/19 01:46 02:00 02:16 Temperature Pulse Rate 87 87 86 Pulse Rate [ Anterior Bilateral Throughout] Respiratory 20 21 19 Rate Respiratory Rate [Anterior Bilateral Throughout] Blood Pressure 161/20 161/20 161/16 O2 Sat by Pulse 94 93 95 Oximetry 03/09/19 03/09/19 03/09/19 02:30 02:46 03:00 Temperature Pulse Rate 86 95 H 102 H Pulse Rate [ Anterior Bilateral Throughout] Respiratory 20 20 20 Rate Respiratory Rate [Anterior Bilateral Throughout] Blood Pressure 154/16 221/44 154/16 O2 Sat by Pulse 92 95 92 Oximetry 03/09/19 03/09/19 03/09/19 03:13 03:16 03:27 Temperature 97.6 F Pulse Rate 89 Pulse Rate [ 90 Anterior Bilateral Throughout] Respiratory 22 Rate Respiratory 20 Rate [Anterior Bilateral Throughout] Blood Pressure 135/23 O2 Sat by Pulse 94 Oximetry 03/09/19 03/09/19 03/09/19 03:28 03:30 03:45 Temperature Pulse Rate 88 90 87 Pulse Rate [ Anterior Bilateral Throughout] Respiratory 20 20 Rate Respiratory Rate [Anterior Bilateral Throughout] Blood Pressure 148/21 148/21 135/28 O2 Sat by Pulse 95 95 94 Oximetry 03/09/19 03/09/19 03/09/19 04:00 04:15 04:30 Temperature Pulse Rate 87 87 86 Pulse Rate [ Anterior Bilateral Throughout] Respiratory 20 20 23 Rate Respiratory Rate [Anterior Bilateral Throughout] Blood Pressure 143/23 152/27 144/24 O2 Sat by Pulse 93 95 93 Oximetry 03/09/19 03/09/19 03/09/19 04:45 05:00 05:15 Temperature Pulse Rate 88 86 86 Pulse Rate [ Anterior Bilateral Throughout] Respiratory 20 29 H 21 Rate Respiratory Rate [Anterior Bilateral Throughout] Blood Pressure 151/34 151/34 163/36 O2 Sat by Pulse 95 96 93 Oximetry 03/09/19 03/09/19 03/09/19 05:30 05:45 06:00 Temperature Pulse Rate 87 86 86 Pulse Rate [ Anterior Bilateral Throughout] Respiratory 20 22 18 Rate Respiratory Rate [Anterior Bilateral Throughout] Blood Pressure 157/39 165/32 158/23 O2 Sat by Pulse 93 93 92 Oximetry 03/09/19 03/09/19 03/09/19 06:15 06:30 06:45 Temperature Pulse Rate 86 86 87 Pulse Rate [ Anterior Bilateral Throughout] Respiratory 18 21 23 Rate Respiratory Rate [Anterior Bilateral Throughout] Blood Pressure 166/28 176/20 155/31 O2 Sat by Pulse 95 93 94 Oximetry 03/09/19 03/09/19 03/09/19 07:00 07:16 07:27 Temperature Pulse Rate 86 86 86 Pulse Rate [ Anterior Bilateral Throughout] Respiratory 21 22 Rate Respiratory Rate [Anterior Bilateral Throughout] Blood Pressure 167/17 160/20 160/20 O2 Sat by Pulse 93 96 97 Oximetry 03/09/19 03/09/19 03/09/19 07:30 07:46 08:00 Temperature 98.8 F Pulse Rate 86 86 85 Pulse Rate [ 86 Anterior Bilateral Throughout] Respiratory 21 24 27 H Rate Respiratory 20 Rate [Anterior Bilateral Throughout] Blood Pressure 170/36 160/20 160/20 O2 Sat by Pulse 94 99 100 Oximetry 03/09/19 03/09/19 03/09/19 08:03 08:16 08:30 Temperature Pulse Rate 87 86 Pulse Rate [ 86 Anterior Bilateral Throughout] Respiratory 20 22 Rate Respiratory 20 Rate [Anterior Bilateral Throughout] Blood Pressure 171/19 137/28 O2 Sat by Pulse 96 95 Oximetry 03/09/19 03/09/19 03/09/19 08:45 09:00 09:16 Temperature Pulse Rate 87 86 86 Pulse Rate [ Anterior Bilateral Throughout] Respiratory 20 20 22 Rate Respiratory Rate [Anterior Bilateral Throughout] Blood Pressure 149/26 142/23 147/16 O2 Sat by Pulse 96 95 96 Oximetry - General Appearance General appearance: chronically ill, intubated, comatose EENT: ATNC, mucous membranes moist Neck: no JVD Respiratory: Present: Decreased Breath Sounds Cardiology: regular, S1S2 Gastrointestinal: normoactive bowel sounds Integumentary: no rash, other (+ edema b/l LE ) Neurologic: other (on vent, unresponsive ) - Lab 03/08/19 04:00 03/08/19 04:00 Most recent lab results Calcium 7.9 mg/dL (8.4-10.2) L 03/08/19 04:00 Phosphorus 4.50 mg/dL (2.5-4.5) 03/03/19 08:30 Magnesium 1.60 mg/dL (1.7-2.3) L 03/03/19 08:30 Medications & Allergies - Medications Allergies/Adverse Reactions: Allergies No Known Allergies Allergy (Verified 01/28/19 21:26) Home Medications: Home Medications Medication Instructions Recorded Confirmed Last Taken Type Aspirin [Low Dose Aspirin EC] 81 mg PO DAILY #30 tablet. 02/04/19 02/16/19 02/14/19 10:00 Rx Clopidogrel [Plavix] 75 mg PO QDAY #30 tablet 02/04/19 02/16/19 02/14/19 10:00 Rx Lispro Insulin [Humalog] 0 unit SUB-Q ACHS units 02/20/19 Unknown Rx Lispro Insulin [Humalog] 5 unit SUB-Q AC 30 Days units 02/20/19 Unknown Rx Multivitamin with Iron [Tab-A-Lupe 1 each PO DAILY #30 tablet 02/20/19 Unknown Rx with Iron] Valsartan [Diovan] 160 mg PO BID #60 tablet 02/20/19 Unknown Rx oxyCODONE /ACETAMINOPHEN [Percocet 1 tab PO Q6H PRN #20 tablet 02/20/19 Unknown Rx 5/325 mg] Insulin Glargine [Lantus VIAL] 22 units SUB-Q DAILY #1 vial 02/25/19 Unknown Rx Insulin Lispro [HumaLOG VIAL] 0 units SQ AC #1 vial 02/25/19 Unknown Rx Active Medications: Generic Name Dose Route Start Last Admin Trade Name Freq PRN Reason Stop Dose Admin Acetaminophen 650 mg 02/13/19 18:03 03/07/19 13:31 Tylenol PO 650 mg Q4H PRN Administration Pain MILD(1-3)/Fever >100.5/MARTÍNEZ Albuterol 2.5 mg 02/22/19 04:53 02/28/19 16:08 Proventil IH 2.5 mg Q6HRT PRN Administration Shortness Of Breath Albuterol/Ipratropium 1 ampul 02/28/19 16:45 03/09/19 07:30 Duoneb *Not For Prn Use* IH 1 ampul Q6HRT RAFAEL Administration Aspirin 325 mg 02/28/19 19:00 03/08/19 10:43 Aspirin PO 325 mg QDAY RAFAEL Administration Dextrose 25 gm 03/07/19 17:00 D50w (25gm) Vial IV PRN PRN Hypoglycemia Hydralazine HCl 10 mg 03/02/19 15:28 Apresoline IV Q4HR PRN BP >180/110 Hydrophilic Ointment 1 applic 02/28/19 21:29 Vaseline Lip Therapy TP Q2HR PRN Dry Lips Dopamine HCl/Dextrose 800 mg in 250 mls @ 4.249 mls/hr 03/01/19 01:35 03/02/19 00:13 Intropin Drip 800 Mg/D5w 250 Ml IV 0 mcg/kg/min TITR RAFAEL 0 mls/hr Titration Protocol 2 MCG/KG/MIN Dobutamine HCl/Dextrose 500 mg in 250 mls @ 16.995 mls/hr 03/04/19 11:00 03/04/19 23:30 Dobutrex Drip 500mg/D5w 250ml IV 0 mcg/kg/min DIRECT RAFAEL 0 mls/hr Infusion 5 MCG/KG/MIN Norepinephrine 8 mg/ Sodium 250 mls @ 3.75 mls/hr 03/04/19 21:00 03/09/19 03:06 Chloride IV 10 mcg/min TITR RAFAEL 18.75 mls/hr Administration Protocol 2 MCG/MIN Cefepime HCl 1 gm in 100 mls @ 200 mls/hr 03/07/19 18:00 03/08/19 18:29 Maxipime/Ns 1 Gm/100 Ml IV 200 mls/hr QPM RAFAEL Administration Protocol Dextrose 1,000 mls @ 42 mls/hr 03/08/19 14:00 03/08/19 14:14 D10w IV 42 mls/hr DIRECT RAFAEL Administration Insulin Human Lispro 0 unit 03/03/19 12:00 03/09/19 05:34 Humalog SUB-Q Not Given Q4H [facility] Protocol Multi-Ingred Cream/Lotion/Oil/Oint 1 applic 03/03/19 10:39 03/03/19 11:07 Artificial Tears Ophth Oint OU 1 applic PRN PRN Administration Dry Eye(s) Ondansetron HCl 4 mg 02/13/19 18:03 Zofran IV Q8H PRN Nausea And Vomiting Pantoprazole Sodium 40 mg 03/02/19 22:00 03/08/19 23:00 Protonix IV 40 mg BID RAFAEL Administration Sodium Bicarbonate 1,300 mg 03/08/19 12:00 03/08/19 23:00 Sodium Bicarbonate FEEDTUBE 1,300 mg BID RAFAEL Administration Sodium Chloride 10 ml 02/13/19 22:00 03/08/19 10:44 Sodium Chloride Flush Syringe 10 Ml IV 10 ml BID RAFAEL Administration Sodium Chloride 10 ml 02/13/19 18:03 Sodium Chloride Flush Syringe 10 Ml IV PRN PRN LINE FLUSH
[2019-03-09] MEDS: ASPIRIN PO SCH (11:25)
[2019-03-09] MEDS: PROTONIX IV SCH ×2 (11:26→21:29)
[2019-03-09] MEDS: SODIUM BICARBONATE FEEDTUBE SCH ×2 (11:27→21:29)
--- NOTE | 2019-03-09 11:56 | Progress Note ---
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 CT head; no acute findings CXR no acute findings Labs; UA > 182 WBC Micro; urine and blood growing ecoli sens to current abx Diagnosis sepsis, ecoli Bactermia and Ecoli UTI PNA? Acute hypoxic respiratory failure anemia, likely due to chronic disease and critical illness HHNK, Type 2 DM, A1c 9 Hyponatremia, likely pseudohyponatremia of hyperglycemia Hyperkalemia GERALDINE- likely ATN Hypomagesemia- resolved PAD hx of RLE ischemia, sp thrombolysis, revascularization and fascitomy dry gangrene, R second toe Rhabdomylsis, non traumatic acute metabolic encephalopathy Fluid overload Acute cva [place] Anoxic encephalopathy Acute kidney injury due to ATN Shock liver/transaminitis Distributive shock Plan * UTI/bacteremia; The patient had sepsis due to Escherichia coli bacteremia and Escherichia coli UTI. She completed a course of antibiotics for that on 02/20 * The patient had some necrotic tissue on her right leg, she was seen by vascular surgery, status post debridement of right leg on 02/20, necrotic tissue was removed. 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 Imaging showed infiltrates, she received Lasix after which infiltrate completely resolved. Therefore it was due to vascular congestion, pneumonia was at that time ruled out. VQ scan and lower extremity Dopplers were negative which at that time excluded VTE. Her respiratory status was improving, she was being weaned off oxygen. Echo showed preserved EF * She initially presented with severe hyperglycemia, she was treated with insulin and IV fluids, she was put on bolus and basal insulin and her sugars improved * She had hypomagnesemia, and if her magnesium was repleted. She also had elevated potassium for which she received single dose of Kayexalate on 02/17 * The patient was improving and was planned for rehabilitation placement, but unfortunately she had a decline * received multiple units of pr she had anemia, bc, first unit on 02/18, then had another drop in hct after code blue on 03/01 after which she got another 3 units, ; seen by GI, they did not suspect acute GI bleed. * 02/28, she developed chest pain or shortness of breath, put on anticoagulation, was being seen by cardiology for possible [place], as PE was again suspected, anticoagulation was later discontinued due to anemia * 03/01, she became pulseless, ROZ RAZA was called, she received CPR, had ROSC was then intubated and sedated, but per her family was only moving her right side at that time, she was on pressors and was too unstable to go to CT scan * 03/02, the patient was more stable, therefore she was taking for CT scan which confirmed subacute cerebral stroke, at this time the patient was now completely obtunded, not responsive to painful stimuli, and only had a gag reflex, fixed pupils and absence of most reflexes. Stroke protocol place, neurology consult placed. Patient already on aspirin, unable to tolerate statins due to markedly elevated LFTs, this is most likely due to shock liver, the patient remains pressor dependent * 03/03, the patient now has no reflexes, no gag reflex, no corneal reflex. Prognosis is very poor at this time, family meeting planned for tomorrow. Nuclear medicine brain flow scan ordered. * 03/04, brain flow scan unequivocal, minimal blood flow, [facility] neurolgy, plan for EEG, had family meeting and discussed goals of care, advance directives and prognosis, time spent was 60 minutes, repleted calcium * 03/05, EEG shows no activity with provocation, [facility] Neurologist, patient is now brain , awaiting family who are traveling from [place] prior to pronouncing, plan to pronounce after family travels to say their good bye. Called her sis Moreno 3 times at [phone], unable to leave voicemail. nurse made aware to call me if family comes to the hospital, has worsening GERALDINE, and has mild hyperkalemia, cont conservative measure, not a candidate for HD, [facility] nephrology, remains vent and pressor dependent * 03/06 and 03/07; patient is brain since 03/05, we were waiting for family to arrive to pronounce her. * 03/08 ; family meeting held, explained that patient is brain to aunt and two sisters, they are awaiting the arrival of her brothers from [place] on 03/09, carson lead case manager and risk mgt * 03/09; plan to pronounce the patient at 8pm today which is when her brothers will arrive to say their good byes Patient is clinically brain , a CCT 33 minutes History Interval history: The patient is obtunded, intubated, not on sedation No vomiting, no seizures, no agitation. Patient has been nonresponsive Hospitalist Physical - Physical exam Narrative exam: General.: Obtunded, appears ill HEENT: Corneal edema noted Neck: supple Cardiac: S1-S2 heard Lungs: Ventilated breath sounds Abdomen: soft , nontender, nondistended, bowel sounds positive Extremities: Bilateral lower extremity bandages noted, bandages to right lower extremity when not removed on my exam Skin: no rash or lesions Neurologic: The patient does not open her eyes, does not move any extremities, does not respond to painful stimuli, she lacks any brainstem reflexes, gag reflex absence - Constitutional Vitals: Temp Pulse Resp BP Pulse Ox 98.8 F 86 22 147/16 96 03/09/19 08:00 03/09/19 09:16 03/09/19 09:16 03/09/19 09:16 03/09/19 09:16 General appearance: Present: other (intubated, nonresponsive, off sedation ) Results - Labs CBC & Chem 7: 03/08/19 04:00 03/08/19 04:00 Labs: Laboratory Last Values WBC 14.0 K/mm3 (4.5-11.0) H 03/03/19 08:30 RBC 3.52 M/mm3 (3.65-5.03) L 03/03/19 08:30 Hgb 8.5 gm/dl (10.1-14.3) L 03/08/19 04:00 Hct 27.3 % (30.3-42.9) L 03/08/19 04:00 MCV 85 fl (79-97) 03/03/19 08:30 MCH 28 pg (28-32) 03/03/19 08:30 MCHC 33 % (30-34) 03/03/19 08:30 RDW 16.6 % (13.2-15.2) H 03/03/19 08:30 Plt Count 89 K/mm3 (140-440) L 03/08/19 04:00 Lymph % (Auto) Ribbon Cutter 02/17/19 10:41 Ciales % (Auto) Ribbon Cutter 02/17/19 10:41 Eos % (Auto) Ribbon Cutter 02/17/19 10:41 Baso % (Auto) Ribbon Cutter 02/17/19 10:41 Lymph # Ribbon Cutter 02/17/19 10:41 Ciales # Ribbon Cutter 02/17/19 10:41 Eos # Ribbon Cutter 02/17/19 10:41 Baso # Ribbon Cutter 02/17/19 10:41 Add Manual Diff Complete 03/03/19 08:30 Total Counted 100 03/03/19 08:30 Seg Neutrophils % Ribbon Cutter 02/17/19 10:41 Seg Neuts % (Manual) 92.0 % (40.0-70.0) H 03/03/19 08:30 Band Neutrophils % 0 % 03/03/19 08:30 Lymphocytes % (Manual) 5.0 % (13.4-35.0) L 03/03/19 08:30 Reactive Lymphs % (Man) 0 % 03/03/19 08:30 Monocytes % (Manual) 1.0 % (0.0-7.3) 03/03/19 08:30 Eosinophils % (Manual) 0 % (0.0-4.3) 03/03/19 08:30 Basophils % (Manual) 0 % (0.0-1.8) 03/03/19 08:30 Metamyelocytes % 1.0 % 03/03/19 08:30 Myelocytes % 1.0 % 03/03/19 08:30 Promyelocytes % 0 % 03/03/19 08:30 Blast Cells % 0 % 03/03/19 08:30 Nucleated RBC % 13.0 % (0.0-0.9) H 03/03/19 08:30 Seg Neutrophils # Ribbon Cutter 02/17/19 10:41 Seg Neutrophils # Man 0.0 K/mm3 (1.8-7.7) L 03/03/19 08:30 Band Neutrophils # 0.0 K/mm3 03/03/19 08:30 Lymphocytes # (Manual) 0.0 K/mm3 (1.2-5.4) L 03/03/19 08:30 Abs React Lymphs (Man) 0.0 K/mm3 03/03/19 08:30 Monocytes # (Manual) 0.0 K/mm3 (0.0-0.8) 03/03/19 08:30 Eosinophils # (Manual) 0.0 K/mm3 (0.0-0.4) 03/03/19 08:30 Basophils # (Manual) 0.0 K/mm3 (0.0-0.1) 03/03/19 08:30 Metamyelocytes # 0.0 K/mm3 03/03/19 08:30 Myelocytes # 0.0 K/mm3 03/03/19 08:30 Promyelocytes # 0.0 K/mm3 03/03/19 08:30 Blast Cells # 0.0 K/mm3 03/03/19 08:30 WBC Morphology Not Reportable 03/03/19 08:30 Hypersegmented Neuts Not Reportable 03/03/19 08:30 Hyposegmented Neuts Not Reportable 03/03/19 08:30 Hypogranular Neuts Not Reportable 03/03/19 08:30 Smudge Cells Not Reportable 03/03/19 08:30 Toxic Granulation Not Reportable 03/03/19 08:30 Toxic Vacuolation Not Reportable 03/03/19 08:30 Dohle Bodies Not Reportable 03/03/19 08:30 Pelger-Huet Anomaly Not Reportable 03/03/19 08:30 Cisco Rods Not Reportable 03/03/19 08:30 Platelet Estimate Consistent w auto 03/03/19 08:30 Clumped Platelets Not Reportable 03/03/19 08:30 Plt Clumps, EDTA Not Reportable 03/03/19 08:30 Large Platelets Few 03/03/19 08:30 Giant Platelets Not Reportable 03/03/19 08:30 Platelet Satelliting Not Reportable 03/03/19 08:30 Plt Morphology Comment Not Reportable 03/03/19 08:30 RBC Morphology Not Reportable 03/03/19 08:30 Dimorphic RBCs Not Reportable 03/03/19 08:30 Polychromasia Not Reportable 03/03/19 08:30 Hypochromasia Not Reportable 03/03/19 08:30 Poikilocytosis Not Reportable 03/03/19 08:30 Anisocytosis 1+ 03/03/19 08:30 Microcytosis Not Reportable 03/03/19 08:30 Macrocytosis Not Reportable 03/03/19 08:30 Spherocytes Not Reportable 03/03/19 08:30 Pappenheimer Bodies Not Reportable 03/03/19 08:30 Sickle Cells Not Reportable 03/03/19 08:30 Target Cells Not Reportable 03/03/19 08:30 Tear Drop Cells Not Reportable 03/03/19 08:30 Ovalocytes Not Reportable 03/03/19 08:30 Helmet Cells Not Reportable 03/03/19 08:30 Star[place] Bodies Not Reportable 03/03/19 08:30 Potrero Rings Not Reportable 03/03/19 08:30 Vipul Cells Not Reportable 03/03/19 08:30 Bite Cells Not Reportable 03/03/19 08:30 Crenated Cell Not Reportable 03/03/19 08:30 Elliptocytes Not Reportable 03/03/19 08:30 Acanthocytes (Spur) Not Reportable 03/03/19 08:30 Rouleaux Not Reportable 03/03/19 08:30 Hemoglobin C Crystals Not Reportable 03/03/19 08:30 Schistocytes Not Reportable 03/03/19 08:30 Malaria parasites Not Reportable 03/03/19 08:30 Augusto Bodies Not Reportable 03/03/19 08:30 Hem Pathologist Commnt No 03/03/19 08:30 PT 15.5 Sec. (12.2-14.9) H 02/28/19 18:33 INR 1.16 (0.87-1.13) H 02/28/19 18:33 APTT 29.5 Sec. (24.2-36.6) 02/28/19 18:33 Fibrinogen 333 mg/dl (211-480) 03/03/19 13:38 D-Dimer > 24560 ng/mlDDU (0-234) H 03/03/19 13:38 Heparin Anti-Xa Level 0.42 U.I./ml (0.3-0.7) 03/01/19 00:48 POC ABG pH 7.303 (7.35-7.45) L 03/09/19 03:49 POC ABG pCO2 33.9 (35-45) L 03/09/19 03:49 POC ABG pO2 71 (80-105) L 03/09/19 03:49 POC ABG HCO3 16.8 (22-26 mml/L) 03/09/19 03:49 POC ABG Total CO2 18 (23-27mmol/L) 03/09/19 03:49 POC ABG O2 Sat 93 03/09/19 03:49 POC ABG Base Excess -10 ((-2) - (+3)mmol/L) 03/09/19 03:49 VBG pH 7.379 (7.320-7.420) 02/13/19 14:08 FiO2 35 % 03/09/19 03:49 Sodium 139 mmol/L (137-145) 03/08/19 04:00 Potassium 5.9 mmol/L (3.6-5.0) H 03/08/19 04:00 Chloride 102.2 mmol/L (98-107) 03/08/19 04:00 Carbon Dioxide 18 mmol/L (22-30) L 03/08/19 04:00 Anion Gap 25 mmol/L 03/08/19 04:00 BUN 60 mg/dL (7-17) H 03/08/19 04:00 Creatinine 7.7 mg/dL (0.7-1.2) H 03/08/19 04:00 Estimated GFR 7 ml/min 03/08/19 04:00 BUN/Creatinine Ratio 8 % 03/08/19 04:00 Glucose 88 mg/dL (65-100) 03/08/19 04:00 POC Glucose 154 (70-105) H 03/09/19 07:26 Hemoglobin A1c 9.2 % (4-6) H 02/13/19 18:15 Ketones Quantitative Negative (Negative) 02/13/19 14:08 Lactic Acid 3.50 mmol/L (0.7-2.0) H* 03/04/19 08:08 Calcium 7.9 mg/dL (8.4-10.2) L 03/08/19 04:00 Phosphorus 4.50 mg/dL (2.5-4.5) 03/03/19 08:30 Magnesium 1.60 mg/dL (1.7-2.3) L 03/03/19 08:30 Total Bilirubin 1.20 mg/dL (0.1-1.2) 03/07/19 09:53 Direct Bilirubin 1.1 mg/dL (0-0.2) H 03/07/19 09:53 Indirect Bilirubin 0.1 mg/dL 03/07/19 09:53 AST 117 units/L (5-40) H 03/07/19 09:53 ALT 273 units/L (7-56) H 03/07/19 09:53 Alkaline Phosphatase 298 units/L (35-129) H 03/07/19 09:53 Ammonia 69.0 umol/L (25-60) H 03/07/19 11:03 Total Creatine Kinase 165 units/L (30-135) H 02/28/19 18:33 CK-MB (CK-2) 4.9 ng/mL (0.0-4.0) H 02/28/19 18:33 CK-MB (CK-2) Rel Index 2.9 (0-4) 02/28/19 18:33 Troponin T 13.790 ng/mL (0.00-0.029) H* D 03/02/19 04:20 NT-Pro-B Natriuret Pep 6167 pg/mL (0-900) H 02/13/19 14:15 Total Protein 4.4 g/dL (6.3-8.2) L 03/07/19 09:53 Albumin 1.5 g/dL (3.9-5) L 03/07/19 09:53 Albumin/Globulin Ratio 0.5 % 03/07/19 09:53 Triglycerides 329 mg/dL (2-149) H 02/13/19 14:20 Cholesterol 159 mg/dL (50-199) 02/13/19 14:20 LDL Cholesterol Direct 36 mg/dL (50-130) L 02/13/19 14:20 HDL Cholesterol 17 mg/dL (40-59) L 02/13/19 14:20 Cholesterol/HDL Ratio 9.35 % 02/13/19 14:20 Amylase 34 units/L (27-131) 03/01/19 00:48 Urine Color Steffi (Yellow) 03/02/19 20:29 Urine Turbidity Slightly-cloudy (Clear) 03/02/19 20:29 Urine pH 6.0 (5.0-7.0) 03/02/19 20:29 Ur Specific Hanska 1.011 (1.003-1.030) 03/02/19 20:29 Urine Protein 100 mg/dl mg/dL (Negative) 03/02/19 20:29 Urine Glucose (UA) 50 mg/dL (Negative) 03/02/19 20:29 Urine Ketones Neg mg/dL (Negative) 03/02/19 20:29 Urine Blood Lg (Negative) 03/02/19 20:29 Urine Nitrite Neg (Negative) 03/02/19 20:29 Urine Bilirubin Neg (Negative) 03/02/19 20:29 Urine Urobilinogen < 2.0 mg/dL (<2.0) 03/02/19 20:29 Ur Leukocyte Esterase Mod (Negative) 03/02/19 20:29 Urine WBC (Auto) 17.0 /HPF (0.0-6.0) H 03/02/19 20:29 Urine RBC (Auto) 29.0 /HPF (0.0-6.0) 03/02/19 20:29 U Epithel Cells (Auto) 1.0 /HPF (0-13.0) 02/14/19 09:07 Urine Bacteria (Auto) 2+ /HPF (Negative) 03/02/19 20:29 Urine WBC Clumps 3+ /HPF 02/14/19 09:07 Ur Transition Epith Cell 1 /HPF 02/14/19 09:07 Urine Mucus Few /HPF 02/14/19 09:07 Urine Yeast (Budding) 3+ /HPF 03/02/19 20:29 Urine Eosinophils None seen (None Seen) 03/01/19 06:50 Vancomycin Trough 14.5 ug/mL (5.0-20.0) 02/15/19 05:32 Random Vancomycin 22.7 ug/mL (0-40.0) 03/04/19 05:15 Urine Opiates Screen Presumptive negative 02/14/19 09:07 Urine Methadone Screen Presumptive negative 02/14/19 09:07 Ur Barbiturates Screen Presumptive negative 02/14/19 09:07 Ur Phencyclidine Scrn Presumptive negative 02/14/19 09:07 Ur Amphetamines Screen Presumptive negative 02/14/19 09:07 U Benzodiazepines Scrn Presumptive negative 02/14/19 09:07 Urine Cocaine Screen Presumptive negative 02/14/19 09:07 U Marijuana (THC) Screen Presumptive negative 02/14/19 09:07 Drugs of Abuse Note Disclamer 02/14/19 09:07 Blood Type B POSITIVE 03/01/19 07:30 Antibody Screen Negative 03/01/19 07:30 Crossmatch See Detail 03/01/19 07:30 Active Medications - Current Medications Current Medications: Generic Name Dose Route Start Last Admin Trade Name Freq PRN Reason Stop Dose Admin Acetaminophen 650 mg 02/13/19 18:03 03/07/19 13:31 Tylenol PO 650 mg Q4H PRN Administration Pain MILD(1-3)/Fever >100.5/MARTÍNEZ Albuterol 2.5 mg 02/22/19 04:53 02/28/19 16:08 Proventil IH 2.5 mg Q6HRT PRN Administration Shortness Of Breath Albuterol/Ipratropium 1 ampul 02/28/19 16:45 03/09/19 07:30 Duoneb *Not For Prn Use* IH 1 ampul Q6HRT RAFAEL Administration Aspirin 325 mg 02/28/19 19:00 03/09/19 11:25 Aspirin PO 325 mg QDAY RAFAEL Administration Dextrose 25 gm 03/07/19 17:00 D50w (25gm) Vial IV PRN PRN Hypoglycemia Hydralazine HCl 10 mg 03/02/19 15:28 Apresoline IV Q4HR PRN BP >180/110 Hydrophilic Ointment 1 applic 02/28/19 21:29 Vaseline Lip Therapy TP Q2HR PRN Dry Lips Dopamine HCl/Dextrose 800 mg in 250 mls @ 4.249 mls/hr 03/01/19 01:35 00:13 Intropin Drip 800 Mg/D5w 250 Ml IV 0 mcg/kg/min TITR RAFAEL 0 mls/hr Titration Protocol 2 MCG/KG/MIN Dobutamine HCl/Dextrose 500 mg in 250 mls @ 16.995 mls/hr 03/04/19 11:00 03/04/19 23:30 Dobutrex Drip 500mg/D5w 250ml IV 0 mcg/kg/min DIRECT RAFAEL 0 mls/hr Infusion 5 MCG/KG/MIN Norepinephrine 8 mg/ Sodium 250 mls @ 3.75 mls/hr 03/04/19 21:00 03/09/19 03:06 Chloride IV 10 mcg/min TITR RAFAEL 18.75 mls/hr Administration Protocol 2 MCG/MIN Cefepime HCl 1 gm in 100 mls @ 200 mls/hr 03/07/19 18:00 03/08/19 18:29 Maxipime/Ns 1 Gm/100 Ml IV 200 mls/hr QPM RAFAEL Administration Protocol Dextrose 1,000 mls @ 42 mls/hr 03/08/19 14:00 03/08/19 14:14 D10w IV 42 mls/hr DIRECT RAFAEL Administration Insulin Human Lispro 0 unit 03/03/19 12:00 03/09/19 11:54 Humalog SUB-Q 4 unit Q4H RAFAEL Administration Protocol Multi-Ingred Cream/Lotion/Oil/Oint 1 applic 03/03/19 10:39 03/03/19 11:07 Artificial Tears Ophth Oint OU 1 applic PRN PRN Administration Dry Eye(s) Ondansetron HCl 4 mg 02/13/19 18:03 Zofran IV Q8H PRN Nausea And Vomiting Pantoprazole Sodium 40 mg 03/02/19 22:00 03/09/19 11:26 Protonix IV 40 mg BID RAFAEL Administration Sodium Bicarbonate 1,300 mg 03/08/19 12:00 03/09/19 11:27 Sodium Bicarbonate FEEDTUBE 1,300 mg BID RAFAEL Administration Sodium Chloride 10 ml 02/13/19 22:00 03/08/19 10:44 Sodium Chloride Flush Syringe 10 Ml IV 10 ml BID RAFAEL Administration Sodium Chloride 10 ml 02/13/19 18:03 Sodium Chloride Flush Syringe 10 Ml IV PRN PRN LINE FLUSH Nutrition/Malnutrition Assess - Dietary Evaluation Nutrition/Malnutrition Findings: Nutrition Notes Start: 02/19/19 14:33 Freq: Status: Active Protocol: Document 03/09/19 11:46 LORENZO (Rec: 03/09/19 11:47 LORENZO SRW- [email or web address]) Nutrition Notes Initial or Follow up Brief Note Current Diet NPO Pertinent Medications D10W at 42ml/hr (provides 343 kcal) Subjective/Other Information Day 9 NPO. Per RN, no NTR intervention needed at this time. Nutrition Intervention Revisit per MD consult or patient Sign Off request:
--- NOTE | 2019-03-09 14:24 | Progress Note ---
Assessment and Plan Cultures: 02/13/2019 blood culture: E. coli, 4 out of 4 bottles 02/14/2019 urine culture: E. coli 02/16/2019 Blood culture: no growth 02/22/2019 Blood culture: no growth 03/01/2019 Blood culture: no growth 03/01/2019 urine culture: no significant growth 03/02/2019 tracheal aspirate: normal resp juan A/P: 58-year-old female with hypertension, diabetes mellitus type 2, peripheral vascular disease who was recently hospitalized from vascular surgery clinic due to right second toe gangrene. She underwent thrombolysis of the right lower extremity and underwent a stent placement. She developed compartment syndrome requiring fasciotomy on 01/29/2019 and then was discharged to a rehabilitation facility, admitted with: 1) Cardiac arrest and shock with CVA: severe lactic acidosis, anemia. Etiology septic v/s cardiogenic. Critically ill. Also with bilateral pneumonia, probably from aspiration following arrest. 2) E.coli bacteremia: urinary source. Completed antibiotics (Cefazolin) several days ago with repeat cultures negative. 3) UTI: U/a shows Pyuria, WBC > 182 with large LE. Urine culture grew E.coli. Completed abx. 4) Acute kidney failure: Urine output low. Critically ill. Creatinine elevated. 5) Peripheral vascular disease: Right second toe ischemia and gangrene. 6) Diabetes mellitus type 2, uncontrolled. 7) Shock liver Recs: discontinued Cefepime. Prognosis remains extremely poor, abx are going to be futile. Will sign off. Please call with questions. MD [facility] C: [phone] O: [phone] F: [phone] Subjective Date of service: 03/09/19 Principal diagnosis: anemia Interval history: Remains unresponsive, on vent. Objective - Exam Narrative Exam: Physical Exam: Constitutional: intubated, unresponsive Head, Ears, Nose: Normocephalic, atraumatic. External ears, nose normal Eyes: Conjunctivae/corneas clear. No icterus. No ptosis. Neck: Supple, no meningeal signs Oral: intubated Cardiovascular: S1, S2 normal. Respiratory: AE b/l equal. No crackles. GI: bowel sounds hypoactive. No peritoneal signs Musculoskeletal: Right second toe with blackish discoloration, right calf with dressing. b/l pedal edema + Skin: No rash or abscess Hem/Lymphatic: No palpable cervical or supraclavicular nodes. Psych: no agitation Neurological: intubated, on vent, unresponsive - Constitutional Vitals: Vital Signs Temp Pulse Resp BP Pulse Ox 98.7 F 88 20 153/20 95 03/09/19 12:00 03/09/19 14:01 03/09/19 14:01 03/09/19 14:01 03/09/19 14:01 Temperature -Last 24 Hours Temperature 98.7 F Temperature 98.8 F Temperature 97.6 F Temperature 98.2 F Temperature 98.6 F Temperature 98.2 F - Labs CBC & Chem 7: 03/08/19 04:00 03/08/19 04:00 Labs: Abnormal lab results 03/08/19 03/09/19 03/09/19 Range/Units 23:26 03:49 04:57 POC ABG pH 7.303 L (7.35-7.45) POC ABG pCO2 33.9 L (35-45) POC ABG pO2 71 L (80-105) POC Glucose 150 H 155 H (70-105) 03/09/19 03/09/19 Range/Units 07:26 11:34 POC ABG pH (7.35-7.45) POC ABG pCO2 (35-45) POC ABG pO2 (80-105) POC Glucose 154 H 216 H (70-105)
[2019-03-09] MEDS: D10W 1,000 ML IV SCH (14:32)
--- NOTE | 2019-03-09 20:46 | Discharge Summary ---
Providers - Providers Date of Admission: 02/13/19 18:03 Attending physician: DALI CASTELAN MD 02/13/19 18:03 Consult to Physician [CONS] Routine Comment: Consulting Provider: ELVI MOORE Physician Instructions: Reason For Exam: PAD 02/14/19 14:03 Consult to Physician [CONS] Routine Comment: Consulting Provider: KIMBERLY BAEZ Physician Instructions: Reason For Exam: stormy Consult to Physician [CONS] Routine Comment: Consulting Provider: RACHEL GIL Physician Instructions: Reason For Exam: sepis 02/14/19 14:39 Consult to Wound/ET Nurse [CONS] Routine Reason For Exam: wound eval 02/15/19 09:06 Physical Therapy Evaluation and Treat [CONS] Routine Comment: Reason For Exam: RLE revasc 02/17/19 17:54 Consult to Physician [CONS] Routine Comment: Consulting Provider: FLORENTINO GALLAGHER Physician Instructions: Reason For Exam: left second toe gangrene 02/21/19 10:20 Consult to Wound/ET Nurse [CONS] Routine Reason For Exam: wound eval 02/23/19 13:29 Physical Therapy Evaluation and Treat [CONS] Routine Comment: Reason For Exam: for Authorization for placement. 02/28/19 18:08 Consult to Physician [CONS] Routine Comment: Consulting Provider: HILL العراقي Physician Instructions: Reason For Exam: chest pain shortess of breath and lethergy 02/28/19 18:16 Consult to Physician [CONS] Routine Comment: Consulting Provider: KAVON BAILEY Physician Instructions: Reason For Exam: chest pain and elevated Johnny 03/01/19 10:55 Consult to Physician [CONS] Routine Comment: Consulting Provider: MALDONADO MORALES Physician Instructions: Reason For Exam: acute renal failure 03/01/19 16:10 Consult to Physician [CONS] Routine Comment: Consulting Provider: CJ JONES Physician Instructions: Reason For Exam: hyperkalemia 03/01/19 17:50 Consult to Physician [CONS] Routine Comment: Consulting Provider: BA KRUEGER Physician Instructions: Reason For Exam: acute renal failure 03/01/19 23:01 Consult to Physician [CONS] Routine Comment: Consulting Provider: GENIA MCMAHAN Physician Instructions: Reason For Exam: Abdominal distension, anemia 03/02/19 15:24 Consult to Physician [CONS] Routine Comment: Consulting Provider: KATIE OSHEA Physician Instructions: Reason For Exam: cva 03/02/19 15:25 Occupational Therapy Evaluate and Treat [CONS] Routine Comment: Reason For Exam: Neuro deficits Physical Therapy Evaluation and Treat [CONS] Routine Comment: Reason For Exam: Neuro deficits 03/03/19 10:26 Consult to PICC Line RN [CONS] Routine Reason For Exam: need access for vasopressors & dc femoral TLC Type Line:: PICC Primary care physician: CANAL DRIVER Hospitalization Condition: Stable Disposition: DC/[place]-06 HOME UNDER HOME [facility] Core Measure Documentation - Palliative Care Palliative Care/ Comfort Measures: Not Applicable Exam - Constitutional Vitals: Temp Pulse Resp BP Pulse Ox 97.9 F 90 23 133/35 97 03/09/19 20:00 03/09/19 20:01 03/09/19 20:00 03/09/19 20:01 03/09/19 20:01 Plan Follow up with: PRIMARY CARE, [Primary Care Provider] - 3-5 Days Prescriptions: Valsartan [Diovan] 160 mg PO BID #60 tablet Lispro Insulin [Humalog] 5 unit SUB-Q AC 30 Days units Insulin Lispro [HumaLOG VIAL] 0 units SQ AC #1 vial Insulin Glargine [Lantus VIAL] 22 units SUB-Q DAILY #1 vial oxyCODONE /ACETAMINOPHEN [Percocet 5/325 mg] 1 tab PO Q6H PRN #20 tablet PRN Reason: Pain, Moderate (4-6) Multivitamin with Iron [Tab-A-Lupe with Iron] 1 each PO DAILY #30 tablet
--- NOTE | 2019-03-09 20:46 | Death Note ---
Note Date of : 03/09/19 Time of : 20:45 Time Pronounced: 20:45
--- NOTE | 2019-03-09 22:21 | Death Summary ---
Summary - Providers Consults: 02/13/19 18:03 Consult to Physician [CONS] Routine Comment: Consulting Provider: ELVI MOORE Physician Instructions: Reason For Exam: PAD 02/14/19 14:03 Consult to Physician [CONS] Routine Comment: Consulting Provider: KIMBERLY BAEZ Physician Instructions: Reason For Exam: geraldine Consult to Physician [CONS] Routine Comment: Consulting Provider: RACHEL GIL Physician Instructions: Reason For Exam: sepis 02/14/19 14:39 Consult to Wound/ET Nurse [CONS] Routine Reason For Exam: wound eval 02/15/19 09:06 Physical Therapy Evaluation and Treat [CONS] Routine Comment: Reason For Exam: RLE revasc 02/17/19 17:54 Consult to Physician [CONS] Routine Comment: Consulting Provider: FLORENTINO GALLAGHER Physician Instructions: Reason For Exam: left second toe gangrene 02/21/19 10:20 Consult to Wound/ET Nurse [CONS] Routine Reason For Exam: wound eval 02/23/19 13:29 Physical Therapy Evaluation and Treat [CONS] Routine Comment: Reason For Exam: for Authorization for placement. 02/28/19 18:08 Consult to Physician [CONS] Routine Comment: Consulting Provider: HILL العراقي Physician Instructions: Reason For Exam: chest pain shortess of breath and lethergy 02/28/19 18:16 Consult to Physician [CONS] Routine Comment: Consulting Provider: KAVON BAILEY Physician Instructions: Reason For Exam: chest pain and elevated Johnny 03/01/19 10:55 Consult to Physician [CONS] Routine Comment: Consulting Provider: MALDONADO MORALES Physician Instructions: Reason For Exam: acute renal failure 03/01/19 16:10 Consult to Physician [CONS] Routine Comment: Consulting Provider: CJ JONES Physician Instructions: Reason For Exam: hyperkalemia 03/01/19 17:50 Consult to Physician [CONS] Routine Comment: Consulting Provider: BA KRUEGER Physician Instructions: Reason For Exam: acute renal failure 03/01/19 23:01 Consult to Physician [CONS] Routine Comment: Consulting Provider: GENIA MCMAHAN Physician Instructions: Reason For Exam: Abdominal distension, anemia 03/02/19 15:24 Consult to Physician [CONS] Routine Comment: Consulting Provider: KATIE OSHEA Physician Instructions: Reason For Exam: cva 03/02/19 15:25 Occupational Therapy Evaluate and Treat [CONS] Routine Comment: Reason For Exam: Neuro deficits Physical Therapy Evaluation and Treat [CONS] Routine Comment: Reason For Exam: Neuro deficits 03/03/19 10:26 Consult to PICC Line RN [CONS] Routine Reason For Exam: need access for vasopressors & dc femoral TLC Type Line:: PICC Attending: EBER GAXIOLA - summary Date of admission: 02/13/19 18:03 Date of : 03/09/19 Significant findings: 58F who was sent from rehab facility for confusion and lethargy recently admitted and had ekos, arterial Thrombolysis to RLE for RLE ischemia, and R leg 4 compartment fasciotomy on 01/[address] Jeong * UTI/bacteremia; The patient had sepsis due to Escherichia coli bacteremia and Escherichia coli UTI. She completed a course of antibiotics for that on 02/20 * The patient had some necrotic tissue on her right leg, she was seen by vascular surgery, status post debridement of right leg on 02/20, necrotic tissue was removed. 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 Imaging showed infiltrates, she received Lasix after which infiltrate completely resolved. Therefore it was due to vascular congestion, pneumonia was at that time ruled out. VQ scan and lower extremity Dopplers were negative which at that time excluded VTE. Her respiratory status was improving, she was being weaned off oxygen. Echo showed preserved EF * She initially presented with severe hyperglycemia, she was treated with insulin and IV fluids, she was put on bolus and basal insulin and her sugars improved * She had hypomagnesemia, and if her magnesium was repleted. She also had elevated potassium for which she received single dose of Kayexalate on 02/17 * The patient was improving and was planned for rehabilitation placement, but unfortunately she had a decline * received multiple units of pr she had anemia, bc, first unit on 02/18, then had another drop in hct after code blue on 03/01 after which she got another 3 units, ; seen by GI, they did not suspect acute GI bleed. * 02/28, she developed chest pain and shortness of breath, put on anticoagulation, was being seen by cardiology for MO, she was put on medical treatments and anticoagulation, it was later discontinued due to anemia * 03/01, she became pulseless, ROZ RAZA was called, she received CPR, had ROSC was then intubated and sedated, but per her family was only moving her right side at that time, she was on pressors and was too unstable to go to CT scan * 03/02, the patient was more stable, therefore she was taking for CT scan which confirmed subacute cerebral stroke, at this time the patient was now completely obtunded, not responsive to painful stimuli, and only had a gag reflex, fixed pupils and absence of most reflexes. Stroke protocol place, neurology consult placed. Patient already on aspirin, unable to tolerate statins due to markedly elevated LFTs, this is most likely due to shock liver, the patient remained pressor dependent * 03/03, the patient now has no reflexes, no gag reflex, no corneal reflex. Prognosis is very poor at this time, family meeting planned for tomorrow. Nuclear medicine brain flow scan ordered. * 03/04, brain flow scan unequivocal, minimal blood flow, [facility], plan for EEG, had family meeting and discussed goals of care, advance directives and prognosis, time spent was 60 minutes, repleted calcium * 03/05, EEG shows no activity with provocation, [facility], patient is now brain , awaiting family who are traveling from [place] prior to pronouncing, plan to pronounce after family travels to say their good bye. Called her josee Cook 3 times at [phone], unable to leave voicemail. nurse made aware to call me if family comes to the hospital, has worsening GERALDINE, and has mild hyperkalemia, cont conservative measure, not a candidate for HD, [facility], remains vent and pressor dependent * 03/06 and 03/07; patient is brain since 03/05, we were waiting for family to arrive to pronounce her. * 03/08 ; family meeting held, explained that patient is brain to aunt and two sisters, they are awaiting the arrival of her brothers from [place] on 03/09, [facility] renal case manager and risk mgt * 03/09; Family arrived at the bedside to severe goodbyes after which the patient was disconnected from life support
[2019-03-10 02:40] VITALS: BP 105/27
== END 2019-03-10 02:45 | DRG 853 ==
LOC: ED 13:32 → IMCU 18:03 → 3A 02-16 20:05 → IMCU 02-19 13:28 → 3A 02-21 15:04 → CC1 02-28 18:53
PROVIDERS: ADMIT Internal Medicine; ATTEND Internal Medicine
PROC: 30233N1 Transfusion of Nonautologous Red Blood Cells into Peripheral Vein, Percutaneous Approach (ICD-10-PCS; 2019-02-18)
PROC: 0KBS0ZZ Excision of Right Lower Leg Muscle, Open Approach (ICD-10-PCS; principal; 2019-02-19)
PROC: 0KDS0ZZ Extraction of Right Lower Leg Muscle, Open Approach (ICD-10-PCS; 2019-02-19)
PROC: 4A033R1 Measurement of Arterial Saturation, Peripheral, Percutaneous Approach (ICD-10-PCS; 2019-02-22)
PROC: 5A09357 Assistance with Respiratory Ventilation, Less than 24 Consecutive Hours, Continuous Positive Airway Pressure (ICD-10-PCS; 2019-02-22)
PROC: 5A09357 Assistance with Respiratory Ventilation, Less than 24 Consecutive Hours, Continuous Positive Airway Pressure (ICD-10-PCS; 2019-02-25)
PROC: 5A09357 Assistance with Respiratory Ventilation, Less than 24 Consecutive Hours, Continuous Positive Airway Pressure (ICD-10-PCS; 2019-02-26)
PROC: 5A09357 Assistance with Respiratory Ventilation, Less than 24 Consecutive Hours, Continuous Positive Airway Pressure (ICD-10-PCS; 2019-02-27)
PROC: 5A1955Z Respiratory Ventilation, Greater than 96 Consecutive Hours (ICD-10-PCS; 2019-02-28)
PROC: 0BH17EZ Insertion of Endotracheal Airway into Trachea, Via Natural or Artificial Opening (ICD-10-PCS; 2019-02-28)
PROC: 5A09357 Assistance with Respiratory Ventilation, Less than 24 Consecutive Hours, Continuous Positive Airway Pressure (ICD-10-PCS; 2019-02-28)
PROC: 5A12012 Performance of Cardiac Output, Single, Manual (ICD-10-PCS; 2019-03-02)
PROC: 02HV33Z Insertion of Infusion Device into Superior Vena Cava, Percutaneous Approach (ICD-10-PCS; 2019-03-03)
DX: A41.51 Sepsis due to Escherichia coli [E. coli] (principal); E11.00 Type 2 diabetes mellitus with hyperosmolarity without nonketotic hyperglycemic-hyperosmolar coma (NKHHC); N17.0 Acute kidney failure with tubular necrosis; G93.41 Metabolic encephalopathy; J96.00 Acute respiratory failure, unspecified whether with hypoxia or hypercapnia; I21.A1 Myocardial infarction type 2; I63.9 Cerebral infarction, unspecified; K72.00 Acute and subacute hepatic failure without coma; N39.0 Urinary tract infection, site not specified; E87.1 Hypo-osmolality and hyponatremia; M62.82 Rhabdomyolysis; E11.52 Type 2 diabetes mellitus with diabetic peripheral angiopathy with gangrene; I96 Gangrene, not elsewhere classified; E87.2 Acidosis; I42.9 Cardiomyopathy, unspecified; Z68.41 Body mass index [BMI] 40.0-44.9, adult; G93.1 Anoxic brain damage, not elsewhere classified; E83.42 Hypomagnesemia; D64.9 Anemia, unspecified; E87.6 Hypokalemia; I46.9 Cardiac arrest, cause unspecified; E11.65 Type 2 diabetes mellitus with hyperglycemia; E86.9 Volume depletion, unspecified; I25.2 Old myocardial infarction; Z79.82 Long term (current) use of aspirin; Z79.899 Other long term (current) drug therapy; Z79.4 Long term (current) use of insulin; Z66 Do not resuscitate
CPT/HCPCS: 36415; 36600; 70450; 71045; 71046; 74018; 74176; 76770; 78582; 78601; 80048; 80053; 80061; 80076; 80202; 80307; 81001; 82010; 82140; 82150; 82550; 82553; 82803; 82805; 82962; 83036; 83735; 83880; 84100; 84132; 84484; 85007; 85014; 85018; 85025; 85049; 85379; 85384; 85520; 85610; 85730; 86850; 86900; 86901; 86920; 87040; 87070; 87076; 87086; 87186; 87205; 88304; 88305; 89050; 93005; 93010; 93306; 93308; 93321; 93325; 93880; 93970; 94002; 94003; 94640; 94644; 94660; 94760; 96374; G0378; A4217; A6250; A9512; A9540; A9558; C9113; J0171; J0295; J0461; J0610; J0690; J0692; J0696; J1170; J1250; J1265; J1644; J1650; J1815; J1940; J2001; J2060; J2250; J2270; J2370; J2543; J2704; J2930; J2997; J3010; J3370; J3475; J3480; J7030; J7040; J7050; J7070; P9016